=== PATIENT | female | born 1955 | race Caucasian/White ===

== ENCOUNTER 2023-01-31 13:07 | Outpatient (OUT) | payer MEDICARE, SELFPAY ==
--- NOTE | 2023-01-31 13:09 | VEIN_ITS ---
Patient: GERRY YOUNGBLOOD Exam Date: 01/31/2023 : 1955 Gender:F Ordering : DR SOLOMON JACKSON M.D. Admission #: [id number] Family : Order #: [id number] CLICK HERE TO VIEW EXAM RADIOLOGY REPORT PROCEDURE: [facility] - OFFICE VISIT INITIAL COMPARISON: None. PROGRESS NOTES: 67-year-old female who presents with a long history of lower extremity pain swelling and varicose veins. The patient has had a nonhealing ulcer in the distal left lower leg for approximately 5 months. The patient was treated for cellulitis and seen by the wound clinic for the past 4 months. The patient was seen previously by vascular surgery and underwent several procedures which she described as a glue procedure. The patient complains of pain and swelling. The patient rates the pain as a 4 on a scale of 1-10. The patient's symptoms are exacerbated by standing and are partially relieved by rest leg elevation and support stockings. The patient is not currently on antibiotics. The patient denies any signs and symptoms to suggest arterial ischemia. The patient describes a family history significant for varicose veins and congestive heart failure in her mother. Colon cancer in her father. . Past surgical history significant for cholecystectomy, hysterectomy and bilateral knee replacement. Past medical history significant for GERD, fibromyalgia, palpitations, hypertension, hypothyroidism and irritable bowel syndrome. No history of deep venous thrombus or pulmonary embolus. See separate history and physical for medication list. The patient has worn compression stockings for approximately 4 months. Patient has a 20 pack year history of smoking discontinuing 13 years ago. The patient smokes marijuana daily. Occasional social alcohol use. After history and physical exam I discussed at length the pathophysiology of venous hypertension and possible treatments, therapies and strategies available. We discussed at length the importance of elevating the lower extremities above the level of the heart, increased physical activity and compression stocking use. I discussed with the patient that her ulcerations or likely multifactorial related to tissue damage from hypertension possible lymphedema as well as venous disease being a contributory factor, in light of there being 3 incompetent perforating veins in the region of her wound. I informed the patient that treatment would likely improve wound healing but not necessarily resolve them completely. We discussed intravenous laser ablation, micro foam chemical ablation and injection sclerotherapy at length. Ultrasound venous reflux study performed the same day was discussed at length with the patient. The report demonstrates bilateral great saphenous, small saphenous and right anterior accessory saphenous vein disease. Bilateral incompetent varicose veins. Multiple bilateral incompetent perforating veins. PHYSICAL EXAM: The right leg demonstrates moderate diffuse varicose reticular and spider veins. No active ulceration. Mild hemosiderin staining. Mild subcutaneous edema below the knee. The left leg demonstrates to extensive varicose, reticular and spider veins. There is a large area of erythema on the distal lower leg and ankle measuring approximately 20 x 15 cm in size with 3 areas of active ulceration measuring up to 2 cm in size. Mild subcutaneous edema. Mild hemosiderin staining. Both thighs, legs and feet were symmetrically warm to the touch. Good posterior tibial and dorsalis pedis pulses were present bilaterally. VEIN/VC Facility EST Comprehensive IMPRESSION: 1. Moderate bilateral great saphenous vein, moderate bilateral small saphenous vein, severe anterior accessory saphenous vein venous insufficiency with dilatation 2. Incompetent perforating veins and incompetent lower extremity varicose veins 3. Extremity subcutaneous edema, mild. 4. Left leg active venous stasis ulcerations 5. CEAP: C6, Ep, Asp, Pr PLAN: 1. Endovenous laser ablation left great saphenous vein, right great saphenous vein, left small saphenous vein, right anterior accessory saphenous vein, left incompetent perforating veins, right small saphenous vein 2. Micro foam chemical ablation incompetent varicose veins 3. Injection sclerotherapy bilateral reticular and spider veins 4. Long-term use of bilateral thigh-high or knee high 20-30 mm compression stockings 5. Elevated legs and increased physical activity for symptomatic relief Nurse notes, history and physical were reviewed and confirmed, see attached forms. The nurse was present throughout the physical exam and consultation Dictated by: Solomon Jackson MD on 01/31/2023 at 15:25 Approved by: Solomon Jackson MD on 01/31/2023 at 15:34
--- NOTE | 2023-01-31 13:09 | VEIN_ITS ---
Patient: GERRY YOUNGBLOOD Exam Date: 01/31/2023 : 1955 Gender:F Ordering : DR SOLOMON JACKSON M.D. Admission #: [id number] Family : Order #: [id number] CLICK HERE TO VIEW EXAM RADIOLOGY REPORT PROCEDURE: VC EXT VENOUS REFLUX JHOANA LMTD COMPARISON: None. INDICATIONS: I83.813 Painful varicose veins of bilat lower extremities TECHNIQUE: Duplex imaging of the lower extremity to assess the deep and superficial venous system for the presence of deep or superficial venous incompetence and to document the location and severity of disease. The study includes evaluation of the great saphenous vein (GSV), anterior accessory saphenous vein (AASV) and small saphenous vein (SSV). Patient scanned in reverse Trendelenburg and standing. FINDINGS: RIGHT LOWER EXTREMITY: Saphenofemoral Junction Reflux: Yes 9.0mm 3.3 sec GSV: Diam (mm) Reflux/ Time (sec) Proximal Thigh 11.0 Yes 1.4 Mid Thigh 4.2 Yes 0.6 Distal Thigh N/A Prox Calf 2.4 No Mid Calf 2.7 No Saphenopopliteal Junction Reflux: 6.5mm Yes 3.5 SSV: Proximal Calf 6.3 Yes 2.8 Mid Calf 4.6 No AASV: Proximal Thigh 15.2 Yes 3.5 Mid Thigh 7.5 Yes 2.0 Distal Thigh Thrombi: Chronic thrombus visualized in GSV. The GSV has chronic occluding thrombus at mid and distal thigh. Compressibility: Normal Flow: Normal Preforator: Dist/med calf 4.8mm with 0.8s reflux. Tech Note: Incompetent GSV and SSV. Patent varicose vein 3.8 mm with 0.7s reflux. Patent varicose vein prox/med calf 4.6mm with 0.9s reflux. Patent varicose vein medial knee 11.8mm with 1.0s. Patent varicose vein dist/med thigh 7.0mm with 1.7s reflux. Patent varicose vein mid/ant thigh 10.2mm with 1.2s reflux. LEFT LOWER EXTREMITY: Saphenofemoral Junction Reflux: Yes 8.5 mm 3.3 sec GSV: Diam (mm) Reflux/Time (sec) Proximal Thigh 5.9 Yes 1.3 Mid Thigh N/A Distal Thigh N/A Prox Calf 4.5 Yes 2.3 Mid Calf 5.1 Yes 2.4 Saphenopopliteal Junction Relux: 5.7 mm Yes 2.4 SSV: Proximal Calf 5.5 Yes 1.5 Mid Calf 4.8 Yes 0.9 AASV: Proximal Thigh 4.6 No Mid Thigh 2.7 No Distal Thigh Thrombi: Chronic thrombus visualized in GSV. Occluding chronic thrombus visualized at mid and distal thigh GSV. Compressibility: Normal Flow: Normal Bead Stringer: Dist/med 4.0mm with 0.9s reflux. Mid/med calf 5.1mm with 1.8s reflux. Dist/lat calf (area of wound)4.9mm with 2.7s reflux. Tech Note: Incompetent GSV and SSV. Patent varicose vein mid/med calf 3.7mm with 2.1s reflux. Patent prox/med calf 5.3mm with 2.0s reflux. Patent varicose vein mid/med thigh 3.9mm with 0.8s reflux. CONCLUSION: 1. Moderate bilateral great saphenous vein venous insufficiency with dilatation and saphenofemoral junction reflux 2. Moderate bilateral small saphenous vein venous insufficiency with dilation and saphenous popliteal junction reflux 3. Severe venous insufficiency with dilatation of the right anterior accessory saphenous vein 4. Bilateral incompetent perforating veins, most severe in corresponding to a left leg ulceration 5. Bilateral incompetent varicose veins Dictated by: Solomon Jackson MD on 01/31/2023 at 14:18 Approved by: Solomon Jackson MD on 01/31/2023 at 14:21
== END 2023-01-31 13:08 | disposition home or self-care (01) ==
PROVIDERS: PCP Nurse Practitioner Adult Health; Visit Provider Radiology Diagnostic Radiology
DX: I83.813 Varicose veins of bilateral lower extremities with pain (principal); R60.0 Localized edema; Z86.79 Personal history of other diseases of the circulatory system
CPT/HCPCS: 93970; G0463

== ENCOUNTER 2023-02-28 10:57 | Outpatient (OUT) | payer MEDICARE, SELFPAY ==
--- NOTE | 2023-02-28 11:21 | VEIN_ITS ---
[address] [address] Patient Name: GERRY YOUNGBLOOD MRN: [id number] date: 1955 Sex: F Assigned Patient Location: Current Patient Location: Accession/Order Number: [id number] Exam Date: 02/28/2023 11:22 Report Date: 02/28/2023 12:14 At the request of: VICKIE CORDON Procedure: VC Endovenous Ablation 1VeinRT EXAMINATION: VC Endovenous Ablation 1VeinRT HISTORY: Pain due to varicose veins of bilateral legs I83.813 The risks and benefits of the procedure had been previously discussed, and were rediscussed at length. Informed written consent was obtained. Jess Da Silva RN and Camilla Romero RDMS, RVT assisted. Time out procedure was performed. The right lower extremity was prepared and draped in the usual sterile fashion to allow knee flexion in the sterile field. Duplex ultrasound probe was draped in a sterile cover, sterile transmission gel was used. Venous mapping was performed with the areas of dilation and large tributaries marked. The total length was 7 cm from the entry upper thigh to 3 cm below the Saphenofemoral junction. The diameter of the right anterior accessory saphenous vein ranged from 5.9 mm. A 30 gauge needle and 1% buffered lidocaine was used to anesthetize the entry site. A 4 mm incision was made with a scalpel and the saphenous vein was entered percutaneously under direct ultrasound guidance with a micropuncture set, a single stick was successful in gaining access. A micro-guide wire was inserted and the needle removed. A micro-set including a dilator was inserted over the microwire and the needle and dilator were removed. A guide wire was inserted through the micro-set and guided through the saphenous vein to the saphenofemoral junction. The dilator was removed and an introducer sheath was inserted over the wire until the end of the sheath entered the saphenofemoral junction. The dilator and wire were removed and the 600 micron fiber was introduced and placed and positioned so that it extended beyond the sheath and was 3 cm distal to the saphenofemoral or saphenopopliteal junction. Final position of the fiber was determined by ultrasound guidance and duplex imaging. Tumescent anesthetic was delivered by ultrasound guidance. 50 cc of fluid was delivered along the entire course of the saphenous vein. The solution consisted of 1000 cc of normal saline with 40 mL of 1% lidocaine and 20 mL of sodium bicarbonate. A final positioning check was made. The energy source was turned on by means of the foot pedal and the fiber and sheath were withdrawn. The total number of Joules delivered was 465. The laser was active for 58 seconds under continuous pulse, average laser use of 8 J. Laser start time 11:51 AM, 02/28/2023. Laser stop time 11:52 AM, 02/28/2023. A duplex ultrasound revealed compressibility and flow at the saphenofemoral junction immediately after the procedure. Hemostasis at the access site was achieved. The skin incision of the saphenous vein was closed with a 4 x 4. A compression stocking was applied. Postop instructions were given. A follow up appointment was recommended and scheduled. The patient tolerated the procedure well. Electronically authenticated by: FARNAZ SERVIN Date: 02/28/2023 12:14
[2023-02-28] MEDS: LIDOCAINE HCL 1% 100 MG/10 ML MDV INJ (11:45)
[2023-02-28] MEDS: 0.9 % SODIUM CHLORIDE 500 ML, LIDOCAINE HCL 20 ML, SODIUM BICARBONATE 10 MEQ INJ (11:45)
== END 2023-02-28 10:58 | disposition home or self-care (01) ==
LOC: VC 10:57
PROVIDERS: PCP Nurse Practitioner Adult Health; Visit Provider Radiology Diagnostic Radiology
DX: I83.813 Varicose veins of bilateral lower extremities with pain (principal)
CPT/HCPCS: 36478

== ENCOUNTER 2023-03-06 10:30 | Outpatient (OUT) | payer MEDICARE, SELFPAY ==
--- NOTE | 2023-03-06 | VEIN_ITS ---
Patient Name: GERRY YOUNGBLOOD MR#: [id number] : 1955 Exam Date: 03/06/2023 Ordering Doctor: DR SOLOMON JACKSON M.D. RADIOLOGY REPORT PROCEDURE: VC EXT VENOUS RT LMTD COMPARISON: None. INDICATIONS: Phlebitis of superficial veins of rt lower extremity I80.01 TECHNIQUE: Lower extremity may scale and Duplex Doppler evaluation of the deep venous system from the inguinal ligament through the calf veins. FINDINGS: REGION: Right lower extremity. THROMBI: Negative for DVT. Heat induced thrombus visualized 1.4cm from the SFJ. The heat induced thrombus extends from groin to mid thigh. COMPRESSIBILITY: Non-compressible segments corresponding to thrombus FLOW: Areas of absent flow corresponding to thrombus CONCLUSION: Post ablation occlusion of the right anterior accessory saphenous vein with heat induced thrombus 1.4 cm from the saphenofemoral junction Dictated by: Solomon Jackson MD on 03/06/2023 at 10:45 Approved by: Solomon Jackson MD on 03/06/2023 at 10:46
--- NOTE | 2023-03-06 10:33 | VEIN_ITS ---
Patient Name: GERRY YOUNGBLOOD MR#: [id number] : 1955 Exam Date: 03/06/2023 Ordering Doctor: DR SOLOMON JACKSON M.D. RADIOLOGY REPORT PROCEDURE: [facility] EST LMTD VEIN CENTER - OFFICE VISIT FOLLOW UP COMPARISON: None. PROGRESS NOTES: The patient reports no significant problems following intravenous laser ablation of the right anterior accessory saphenous vein. The patient did not require oral analgesics. The patient has worn her compression stocking. The patient has followed our recommendations to walk 20-30 minutes once or twice per day since the procedure. Physical exam demonstrates minimal bruising in the anterior right thigh likely related to tumescence injection the largest area measuring 5 cm in diameter. The right anterior accessory saphenous vein cannot definitively be palpated. No erythema or warmth to suggest cellulitis or thrombophlebitis. No active ulceration Review of the ultrasound performed the same day demonstrates occlusive thrombus extending throughout the treated right anterior accessory saphenous vein with heat induced thrombus 1.4 cm from the saphenofemoral junction. No deep vein thrombus. The patient expressed a desire to proceed with treatment of incompetent left leg perforating veins with related ulcerations. VEIN/VC Facility EST LMTD IMPRESSION: 1. Successful ablation of the right anterior accessory saphenous vein 2. Persistent incompetent left leg perforating veins with associated ulceration. PLAN: Intravenous laser ablation left leg incompetent perforating veins Nurse notes, history and physical were reviewed and confirmed, see attached forms. The nurse was present throughout the physical exam and consultation Dictated by: Solomon Jackson MD on 03/06/2023 at 10:58 Approved by: Solomon Jackson MD on 03/06/2023 at 10:59
== END 2023-03-06 10:31 | disposition home or self-care (01) ==
LOC: VC 10:30
PROVIDERS: PCP Nurse Practitioner Adult Health; Visit Provider Radiology Diagnostic Radiology
DX: I80.01 Phlebitis and thrombophlebitis of superficial vessels of right lower extremity (principal)
CPT/HCPCS: 93971; G0463

== ENCOUNTER 2023-03-15 09:57 | Outpatient (OUT) | payer MEDICARE, SELFPAY ==
--- OUTSIDE RECORDS SUMMARY | 2023-03-15 10:06 | XMS_ITS | CCD ---
Author Name Unknown Address [address] [place] [address] Organization [facility] Care Team Providers Care Face Painter Name Role Phone Ward Zuniga Primary Care Provider Pardeep Barroso Attending Provider Jai Tomas Attending Provider [phone] Ward Zuniga Primary Care Provider [phone] Jai Tomas Attending Provider [phone] Ward Mtz Attending Provider [phone] Ward Zuniga Primary Care Provider [phone] Jai Tomas Attending Provider [phone] Ward Mtz Attending Provider [phone] WARD ZUNIGA Primary Care Physician Unavail able Latonya Frost Unavailable Unavailable Michael Colunga Unavailable Ward Mtz Unavailable Balwinder Parker Unavailable DO Ward Zuniga Primary Care Provider [phone] MD Molina Villanueva Attending Provider [phone] DO Ward Zuniga Attending Provider DO Ward Zuniga Primary Care Provider CUBA Casanova Attending Provider ISI Griffith Emergency Provider Unavailable Primary Care Provider Unavailabl e DO Ward Zuniga Primary Care Provider CUBA Casanova Attending Provider ISI Griffith Emergency Provider [phone] Ward Zuniga Unavailable Unavailable Unavailable CONNIE COTE Referring Unavailable CONLEY, NIMITT Admitting Unavailable PROVIDER, UNKNOWN Attending Unavailable CONNIE COTE Referring Unavailable CONLEY, NIMITT Admitting Unavailable PROVIDER, UNKNOWN Attending Unavailable RITTER, NIKITA Referring Unavailable PROVIDER, UNKNOWN Admitting Unavailable PROVIDER, UNKNOWN Attending Unavailable CONLEY, NIMITT Admitting Unavailable [facility] Referring Unavailable PROVIDER, UNKNOWN Attending Unavailable CONNIE COTE Referring Unavailable PROVIDER, UNKNOWN Attending Unavailable PROVIDER, UNKNOWN Admitting Unavailable PROVIDER, UNKNOWN Admitting Unavailable PROVIDER, UNKNOWN Attending Unavailable RITKYA, NIKITA Referring Unavailable PROVIDER, UNKNOWN Attending Unavailable PROVIDER, UNKNOWN Admitting Unavailable PROVIDER, UNKNOWN Admitting Unavailable PROVIDER, UNKNOWN Attending Unavailable WARD GRAVES Attending Unavailable CONNIE COTE Referring Unavailable CONLEY, NIMITT Admitting Unavailable CONSULT, IP CARDIOLOGY Consulting Unavailab le REQUEST, IP PHYSICAL THERAPY SERVICE Consulting Unavailable REQUEST, IP OCCUPATIONAL THERAPY SERVICE Consult ing Unavailable PROVIDER, UNKNOWN Attending Unavailable PROVIDER, UNKNOWN Admitting Unavailable PROVIDER, UNKNOWN Attending Unavailable PROVIDER, UNKNOWN Admitting Unavailable PROVIDER, UNKNOWN Attending Unavailable PROVIDER, UNKNOWN Admitting Unavailable CONNIE COTE Referring Unavailable CONNIE COTE Referring Unavailable CONLEY, NIMITT Admitting Unavailable PROVIDER, UNKNOWN Attending Unavailable Dr. Ward Zuniga Primary Care Dr. Natan Biggs Referring Unavaila terrence Marinelli, Dr. Gama Attending Unavaila Dr. Ward Robin Primary [facility] DO Ward Samuel Primary Care Provider [phone] DO Ward Zuniga Attending Provider [phone] CUBA Saldana Attending Provider DO Maico Perla Emergency Provider [phone] MD Ward Mtz Attending Provider DO Ward Zuniga Primary Care Provider MD Ward Mtz Attending Provider [phone] CUBA Saldana Attending Provider [phone] MD Pravin Granado Emergency Provider [phone] MARYCARMEN NAVA Attending Unavailable Ketty Alicia Attending Unavailable Talon Mcbride Referring Unavailabl e Zulay Junior Attending Unavailab le Talon Mcbride Admitting Unavailabl e Reed, Talon Pastrana Attending Unavailabl e Talon Mcbride Referring Unavailabl e RANDY, Ronobir R Admitting Unavailable RANDY, Ronobir R Attending Unavailable Talon Mcbride Admitting Unavailabl e Reed, Talon Pastrana Attending Unavailabl e Talon Mcbride Referring Unavailabl e WARD ZUNIGA Attending Unavailable WARD ZUNIGA Referring Unavailable CONNIE LEARY Attending Unavailable CONNIE LEARY Referring Unavailable CONNIE LEARY Attending Unavailable CONNIE LEARY Referring Unavailable DO Ward Zuniga Primary Care Provider MD Pravin Granado Emergency Provider CUBA Saldana Attending Provider Ward Zuniga Primary Care Unavailable Maico Perla Admitting Unavailable Maico Perla Attending Unavailable Keith Griffith Admitting Unavailable Keith Griffith Attending Unavailable Zach, Ward Primary Care Unavailable Pravin Granado Admitting Unavailable Pravin Granado Attending Unavailable Zach, Ward Primary Care Unavailable Ward Zuniga Admitting Unavailable Zach, Wrad Primary Care Unavailable Ward Zuniga Attending Unavailable Zach, Ward Primary Care Unavailable Adelia Saldana Admitting Unavailable Adelia Saldana Attending Unavailable Zach, Ward Primary Care Unavailable Ward Mtz Admitting Unavailable Ward Mtz Attending Unavailable Adelia Saldana Admitting Unavailable Adelia Saldana Attending Unavailable Zach, Ward Primary Care Unavailable Zach, Ward Primary Care Unavailable Ephraim Casanova Admitting Unavailable Ephraim Casanova Attending Unavailable Keith Griffith Admitting Unavailable Keith Griffith Attending Unavailable Zach Ward Primary Care Unavailable Unavailable Unavailable Unavailable Allergies Allergy Classification Reported Allergen(s) Allergy Type Date of Onset Reaction(s) Facility (17 sources) contact metal agent; Translations: [contact metal agent] Propensity to adverse reactions 09-13-201 9 Hives [facility] (8 sources) Adhesive bandage; Translations: [Adhesive Bandage] Drug allergy rash [facility] (20 sources) DULoxetine; Translations: [duloxetine] Drug Allergy unable to function properly d/t drowsiness, swollen feet, Unknown [facility] [place] Other (13 sources) meloxicam; Translations: [meloxicam] Drug Allergy ., Unknown [facility] [place] Other (20 sources) pregabalin; Translations: [pregabalin] Drug Allergy 3 Swelling [facility] [place] Other (19 sources) Adhesive agent; Translations: [adhesive] Propensity to adverse reactions 2 [facility] (10 sources) oxaprozin; Translations: [oxaprozin] Drug Allergy Unknown [facility] (10 sources) rOPINIRole; Translations: [Requip] Drug Allergy dizziness [facility] (10 sources) tiZANidine; Translations: [tiZANidine] Drug Allergy Unknown [facility] (20 sources) DULoxetine; Translations: [DULOXETINE HCL] Drug Allergy 3 Agitation [facility] (20 sources) Pregabalin Propensity to adverse reactions to drug 3 [facility] Bandage Tape; Translations: [BANDAGE TAPE] Propensity to adverse reactions 3 Itching, Redness [facility] ([facility]) Adhesive Bandages; Translations: [Adhesive Bandages] Allergy to drug (finding) [facility] DO Work Phone: (1 source) Adhesive Paper TAPE; Translations: [Adhesive Paper TAPE] [facility]: (1 source) meloxicam; Translations: [Mobic] Drug Allergy [facility] (1 source) oxaprozin; Translations: [Daypro] Drug Allergy [facility] (1 source) tiZANidine; Translations: [Zanaflex] Drug Allergy [facility] (1 source) pregabalin Drug Allergy [facility] Repository Medications Current Medications Medication Drug Class(es) Dates Sig (Normalized) Sig (Original) acetaminophen 325 mg oral tablet (6 sources) Start: 07-26-2022 take 2 tablets by mouth every six hours acetaminophen 325 mg Tab 650 mg = 2 tab(s), Oral, q6hr, Refills(s) 0 Start Date: 07/26/22 Status: Ordered Start: 05-24-2022 End: 05-31-2022 take 2 tablets by mouth every six hours as needed acetaminophen (TYLENOL) 325 mg tablet Take 2 Tablets by mouth every 6 hours as needed for up to 7 days. 56 Tablet 0 05/24/2022 05/31/2022 Active take 1-2 tablets by mouth every four hours as needed Acetaminophen 325 MG Oral Tablet TAKE 1 TO 2 TABLETS EVERY 4 HOURS NEEDED Quantity: 0 Refills: 0 Ordered: 30-Jun-2022 DO Active Acidophilus Probiotic Blend (4 sources) Start: 07-26-2022 take 1 capsule by mouth once daily Acidophilus Probiotic Blend 1 cap(s), Oral, Daily, Prophylaxis Start Date: 07/26/22 Status: Ordered acyclovir 400 mg oral tablet (20 sources) Herpesvirus Nucleoside Analog DNA Polymerase Inhibitor, Herpes Simplex Virus Nucleoside Analog DNA Polymerase Inhibitor, Herpes Zoster Virus Nucleoside Analog DNA Polymerase Inhibitor Start: 05-25-2016 take 400 mg by mouth once daily Acyclovir Active 400 MG PO Daily May 15, 2022 12:00am amitriptyline hydrochloride 50 mg oral tablet (20 sources) Tricyclic Antidepressant Start: 03-29-2017 take 50 mg by mouth once daily Amitriptyline Active 50 MG PO Daily March 29, 2017 12:00am aspirin 81 mg delayed release oral tablet (20 sources) Platelet Aggregation Inhibitor, Nonsteroidal Anti-inflammatory Drug Start: 07-18-2022 take 1 tablet by mouth once daily aspirin 81 mg Oral EC Tab 81 mg = 1 tab(s), Oral, Daily, afib, Refills(s) 0, Other (see comment) Start Date: 07/18/22 Status: Ordered Start: 05-25-2022 End: 06-24-2022 take 1 tablet by mouth once daily aspirin 81 MG chewable tablet Take 1 Tablet by mouth daily. 30 Tablet 0 05/25/2022 Active Start: 01-13-2021 aspirin 325 mg Tab Refills(s) 0 Start Date: 01/13/21 Status: Ordered take 1 tablet by pablo th once daily Aspirin EC 81 MG Oral Tablet Delayed Release TAKE 1 TABLET DAILY. Quantity: 90 Refills: 3 Ordered: 30-Jun-2022 Yves JOY, Natan Active atenolol 50 mg oral tablet (20 sources) beta-Adrenergic Kyler Start: 11-22-2012 take 50 mg by mouth once daily Atenolol Active 50 MG PO Daily March 29, 2017 12:00am atorvastatin 40 mg oral tablet (20 sources) HMG-CoA Reductase Inhibitor Start: 05-25-2022 End: 06-24-2022 take 1 tablet by mouth once daily atorvastatin (LIPITOR) 40 mg tablet Take 1 Tablet by mouth daily. 30 Tablet 0 05/25/2022 Active Benadryl Allergy 25 MG (4 sources) take 1 tablet by mouth once daily at bedtime as needed Benadryl Allergy 25 MG 1 tablet at bedtime as needed Orally Once a day Active calcium carbonate 1500 mg oral tablet (6 sources) Start: 07-26-2022 calcium (as carbonate) 600 mg oral tablet 1,200 mg = 2 tab(s), Oral, Daily, Prophylaxis Start Date: 07/26/22 Status: Ordered Start: 01-13-2021 take 1 tablet by pablo th twice daily calcium (as carbonate) 600 mg oral tablet 600 mg = 1 tab(s), Oral, BID, Refills(s) 0 Start Date: 01/13/21 Status: Ordered Celebrate Multivitamin (7 sources) Start: 01-13-2021 Celebrate Mult ivitamin 1 tab(s), Chewed, Daily, Refill(s) 0, Prophylaxis Start Date: 01/13/21 Status: Ordered Start: 01-13-2021 Celebrate Mult ivitamin Refill(s) 0 Start Date: 01/13/21 Status: Ordered cephalexin 500 mg oral capsule (20 sources) Cephalosporin Antibacterial Start: 09-27-2022 End: 10-04-2022 take 1 capsule by mouth four times daily Keflex 500 mg Cap 500 mg = 1 cap(s), Oral, QID, X 7 day(s), # 28 cap(s), Refills(s) 0, Pharmacy: [facility] [id number], 154, cm, 09/26/22 23:21:00 EDT, Height/Length Dosing, 75.9, kg, 09/26/22 23:21:00 EDT, Weight Dosing Start Date: 09/27/22 Stop Date: 10/04/22 Status: Ordered Start: 05-30-2017 End: 06-06-2017 take 1 capsule by mouth twice daily Cephalexin (Keflex) 500 mg capsule Discontinued 500 MG PO Twice daily 14 May 30, 2017 12:00am June 05, 2017 11:05pm Start: 04-24-2017 End: 05-08-2017 take 1 capsule by mouth twice daily Cephalexin (Keflex) 500 mg capsule Discontinued 500 MG PO Twice daily 28 April 24, 2017 12:00am May 08, 2017 12:03am Start: 03-29-2017 End: 04-05-2017 take 2 capsules by mouth twice daily Cephalexin (Keflex) 250 mg capsule Discontinued 500 MG PO .twice daily 14 March 29, 2017 12:00am April 05, 2017 12:03am cetirizine hydrochloride 10 mg disintegrating oral tablet (12 sources) Histamine-1 Receptor Antagonist Start: 01-13-2021 Zyrtec Dissolve 10 mg oral tablet, dispersible 10 mg = 1 tab(s), Oral, Daily, PRN for allergy symptoms, # 24 tab(s), Refills(s) 0 Start Date: 01/13/21 Status: Ordered take 1 tablet by mouth once apryl y ZyrTEC Allergy 10 MG 1 tablet Orally Once a day Active cholecalciferol 0.05 mg oral capsule (1 source) Vitamin D Start: 01-13-2021 take 1 tablet by mouth once daily Vitamin D3 2000 intl units oral Tab 50 mcg, Oral, Daily, tab(s), Refills(s) 0 Start Date: 01/13/21 Status: Ordered clindamycin 0.01 mg/mg topical gel (4 sources) Lincosamide Antibacterial Start: 10-18-2022 Clindamycin Phosphate Active 1 APPLIC TOPICAL .3 times weekly 60 October 17, 2022 11:00pm thin layer to lle ulcer per wound orders diphenhydrAMINE (12 sources) Histamine-1 Receptor Antagonist Start: 01-13-2021 Benadryl 25 mg Tab Daily, PRN as needed for allergy symptoms, Refills(s) 0 Start Date: 01/13/21 Status: Ordered take 1 tablet by pablo th every twenty-four hours Benadryl Allergy 25 MG 1 tablet at bedtime as needed Orally Once a day Active docusate sodium 100 mg oral capsule (13 sources) Start: 11-22-2012 take 2 capsules by mouth once daily in the evening docusate sodium 100 mg Cap 200 mg = 2 cap(s), Oral, qPM, Refills(s) 0, Constipation Start Date: 11/22/12 Status: Ordered doxycycline hyclate 100 mg oral capsule (18 sources) Tetracycline -class Drug Start: 02-02-2023 take 100 mg by mouth twice daily Doxycycline Hyclate Active 100 MG PO Twice daily February 02, 2023 12:00am Start: 09-27-2022 End: 10-04-2022 take 1 tablet by mouth every twelve hours doxycycline hyclate 100 mg Tab 100 mg = 1 tab(s), Oral, q12hr, X 7 day(s), # 14 tab(s), Refills(s) 0, Pharmacy: [facility] [id number], 154, cm, 09/26/22 23:21:00 EDT, Height/Length Dosing, 75.9, kg, 09/26/22 23:21:00 EDT, Weight Dosing Start Date: 09/27/22 Stop Date: 10/04/22 Status: Ordered Start: 11-08-2018 End: 11-23-2018 take 100 mg by mouth twice daily Doxycycline Hyclate Discontinued 100 MG PO Twice daily November 07, 2018 11:00pm November 23, 2018 12:42pm escitalopram 10 mg oral tablet (20 sources) Serotonin Reuptake Inhibitor Start: 01-13-2021 take 10 mg by mouth once daily Escitalopram Oxalate Active 10 MG PO Daily May 15, 2022 12:00am estradiol 0.1 mg/g vaginal cream (1 source) Start: 07-29-2021 estradiol 0.1 mg/g vaginal cream See Instructions, 1 g vaginally daily x 2 weeks, then 3x per week thereafter. apply a pea-sized amount with your finger around the urethra., # 42.5 gm, Refills(s) 5, Pharmacy: [facility] [id number], 154, cm, 07/29/21 11:09:00 EDT, Height/Length Dos... Start Date: 07/29/21 Status: Ordered Fiber (3 sources) Fiber Active gabapentin 100 mg oral capsule (20 sources) Anti-epileptic Agent Start: 03-29-2017 take 100 mg by mouth three times daily Gabapentin Active 100 MG PO Three times daily March 29, 2017 12:00am Start: 05-25-2016 take 2 capsules by m outh twice daily gabapentin 100 mg Cap 200 mg = 2 cap(s), Oral, BID, Refills(s) 0, Pain Start Date: 05/25/16 Status: Ordered Gabapentin 100 M G TABS TAKE 1 TABLET 3 TIMES DAILY. Quantity: 0 Refills: 0 Ordered: 30-Jun-2022 DO Active Handicap Placard 5 year 5 year (9 sources) Start: 06-26-[address] 5 year 5 year 1 misc daily for 5 year *please review for potential _update for e-prescription and drug interaction check* Jun, Active levothyroxine sodium 0.05 mg oral tablet (20 sources) l-Thyroxi ne Start: 10-23-2018 take 100 ug by mouth once daily Levothyroxine Active 100 MCG PO Daily October 22, 2018 11:00pm Start: 10-23-2018 take 50 ug by mouth once daily Levothyroxine Active 50 MCG PO Daily October 23, 2018 12:00am Start: 05-31-2016 take 1 tablet by pablo once daily levothyroxine 150 mcg (0.15 mg) Tab 150 microgram = 1 tab(s), Oral, Daily, Refills(s) 0, Thyroid Start Date: 05/31/16 Status: Ordered losartan potassium 25 mg oral tablet (20 sources) Angiotensin 2 Receptor Kyler Start: 05-24-2022 End: 06-23-2022 take 1 tablet by mouth once daily losartan (COZAAR) 25 MG tablet Take 1 Tablet by mouth daily. 30 Tablet 0 05/24/2022 Active 24 hr metoprolol succinate 25 mg extended release oral tablet (20 sources) beta-Adrenergic Kyler Start: 05-24-2022 End: 06-23-2022 take 0.5 tablet by mouth once daily metoprolol (TOPROL-XL) 25 mg XL tablet Take 0.5 Tablets by mouth daily. 15 Tablet 0 05/24/2022 Active Multivitamin preparation (4 sources) Start: 10-05-2022 take 1 tablet by mouth once daily Multivitamin Active 1 TAB PO Daily October 04, 2022 11:00pm Start: 10-05-2022 take 1 tablet by pablo once daily Multivitamin Active 1 TAB PO Daily October 05, 2022 12:00am nystatin 100 unt/mg topical powder (2 sources) Polyene Antifungal Start: 02-14-2023 Nystatin Ac tive 1 APPLIC TOPICAL .3 times/week February 14, 2023 12:00am apply to left leg as per wound care orders Start: 02-13-2023 Nystatin Activ e 1 APPLIC TOPICAL .3 times weekly February 13, 2023 12:00am apply to left leg rash with each dressing omeprazole 40 mg delayed release oral capsule (20 sources) Proton Pump Inhibitor Start: 05-13-2021 take 40 mg by mouth twice daily Omeprazole Active 40 MG PO Twice daily 60 May 13, 2021 12:00am Start: 03-29-2017 End: 05-13-2021 take 20 mg by mouth twice daily Omeprazole Discontinue d 20 MG PO Twice daily March 29, 2017 12:00am May 13, 2021 10:00am Start: 11-29-2012 take 1 capsule by mo [facility] once daily omeprazole 20 mg Cap-DR 20 mg = 1 cap(s), Oral, Daily, # 30 cap(s), Refills(s) 0, Gas Start Date: 01/13/21 Status: Ordered omeprazole 20 mg Cap-DR (1 source) Start: 01-13-2021 take 1 capsule by mouth once daily omeprazole 20 mg Cap-DR 20 mg = 1 cap(s), Oral, Daily, # 30 cap(s), Refills(s) 0 Start Date: 01/13/21 Status: Ordered ondansetron 4 mg disintegrating oral tablet (2 sources) Serotonin-3 Receptor Antagonist Start: 12-17-2022 Ondansetron Active 4 MG PO every 6 to 8 hours December 16, 2022 11:00pm 24 hr oxybutynin chloride 10 mg extended release oral tablet (20 sources) Cholinergic Muscarinic Antagonist Start: 02-20-2023 take 1 tablet by mouth once daily oxybutynin 10 mg ER Tab 10 mg = 1 tab(s), Oral, Daily, # 90 tab(s), Refills(s) 3, Pharmacy: [facility] [id number], 154, cm, 09/26/22 23:21:00 EDT, Height/Length Dosing, 75.9, kg, 09/26/22 23:21:00 EDT, Weight Dosing Start Date: 02/20/23 Status: Ordered Start: 11-30-2021 oxybutynin (DI TROPAN-XL) 10 MG XL tablet Take 10 mg by mouth. 0 11/30/2021 Active Start: 07-29-2021 End: 09-27-2021 take 1 tablet by mouth once daily oxybutynin 10 mg ER Tab 10 mg = 1 tab(s), Oral, Daily, X 30 day(s), # 30 tab(s), Refills(s) 1, Pharmacy: [facility] [id number], 154, cm, 07/29/21 11:09:00 EDT, Height/Length Dosing, 88, kg, 07/29/21 11:09:00 EDT, Weight Dosing Start Date: 07/29/21 Stop Date: 09/27/21 Status: Ordered Start: 07-29-2021 End: 08-28-2021 take 1 tablet by mouth once daily oxybutynin 5 mg ER Tab 5 mg = 1 tab(s), Oral, Daily, X 30 day(s), # 30 tab(s), Refills(s) 0, Pharmacy: [facility] [id number], 154, cm, 07/29/21 11:09:00 EDT, Height/Length Dosing, 88, kg, 07/29/21 11:09:00 EDT, Weight Dosing Start Date: 07/29/21 Stop Date: 08/28/21 Status: Ordered oxyCODONE hydrochloride 5 mg oral tablet (1 source) Opioid Agonist Start: 07-26-2022 End: 07-29-2022 oxyCODONE 5 mg Tab 5 mg = 1 tab(s), Oral, q6hr, PRN Pain 8-10, X 3 day(s), # 12 tab(s), Refills(s) 0, Pharmacy: [facility] [id number], 154, cm, 07/18/22 14:13:00 EDT, Height/Length Dosing, 74.6, kg, 07/18/22 14:13:00 EDT, Weight Dosing Start Date: 07/26/22 Stop Date: 07/29/22 Status: Ordered Probiotic (3 sources) Probiotic Active psyllium 525 mg oral capsule (16 sources) Start: 01-13-2021 take 5 capsules by mouth once daily as needed for constipation Metamucil 525 mg oral capsule 2,625 mg = 5 cap(s), Oral, Daily, PRN for constipation, # 100 cap(s), Refills(s) 0 Start Date: 01/13/21 Status: Ordered take 1 capsule by mouth in the m orning Metamucil 0.52 GM 1 capsule Orally in am Active take 1 capsule by mouth in the m orning Metamucil 0.52 GM 1 capsule Orally in am Active rOPINIRole 2 mg oral tablet (20 sources) Nonergot Dopamine Agonist Start: 05-08-2022 End: 07-18-2022 rOPINIRole (REQUIP) 2 MG tablet Start: 01-13-2021 take 1 tablet by pablo twice daily Requip 2 mg Tab 2 mg = 1 tab(s), Oral, BID, restless legs, Refills(s) 0, Other (see comment) Start Date: 01/13/21 Status: Ordered Start: 03-29-2017 take 0.25 mg by mout h four times daily Ropinirole Active 0.25 MG PO Four times daily March 29, 2017 12:00am Start: 03-29-2017 take 0.25 mg by mout h three times daily Ropinirole Active 0.25 MG PO Three times daily March 29, 2017 12:00am 5 ml sodium chloride 9 mg/ml injection (1 source) Start: 07-13-2022 End: 08-12-2022 Sodium Chloride Flush (Saline Flush) 0.9 % SOLN 10 mL by Gastric Tube route 2 times daily. 10 mL 5 07/13/2022 08/12/2022 Active traMADol hydrochloride 50 mg oral tablet (20 sources) Opioid Agonist Start: 08-20-2015 take 50 mg by mouth once daily Tramadol Active 50 MG PO Daily March 29, 2017 12:00am Start: 08-20-2015 take 50 mg by mouth every eight hours as needed for pain tramadol 50 mg, Oral, q8hr, PRN as needed for pain, Pain Start Date: 06/29/17 Status: Ordered Vashe Cleansing - (9 sources) Start: 04-17-2019 Vashe Cleansin g - 5-10 ml to leg wound Externally daily Mar, Active Vitamin D3 2000 intl units oral Tab (6 sources) Start: 01-13-2021 take 1 tablet by mouth once daily Vitamin D3 2000 intl units oral Tab 50 mcg, Oral, Daily, tab(s), Refills(s) 0, Prophylaxis Start Date: 01/13/21 Status: Ordered Start: 01-13-2021 take 1 tablet by pablo once daily Vitamin D3 2000 intl units oral Tab 50 mcg, Oral, Daily, tab(s), Refills(s) 0 Start Date: 01/13/21 Status: Ordered Vitamin D3 2000 UNIT (9 sources) take 1 capsule by mo [facility] once daily Vitamin D3 2000 UNIT 1 capsule Orally Once a day *please review for potential _update for e-prescription and drug interaction check* Active Completed/Discontinued Medications Medication Drug Class(es) Dates Sig (Normalized) Sig (Original) clobetasol propionate 0.0005 mg/mg topical ointment (16 sources) Corticosteroid Start: 11-23-2018 End: 03-30-2020 apply 1 g topically twice daily Clobetasol Discontinued 1 GM TOPICAL Twice daily 15 November 22, 2018 11:00pm March 30, 2020 4:18pm apply thin layer to red area left leg gentamicin 0.001 mg/mg topical ointment (4 sources) Start: 10-05-2022 End: 11-16-2022 Gentamicin Discontinued 1 APPLIC TOPICAL .3 times/week October 04, 2022 11:00pm November 16, 2022 9:50am thin layer to left leg wound as per wound care orders iohexol (OMNIPAQUE) 350 MG/ML injection (1 source) Start: 07-05-2022 End: 07-05-2022 iohexol (OMNIPAQUE) 350 MG/ML injection mupirocin 0.02 mg/mg topical ointment (16 sources) RNA Synthetase Inhibitor Antibacterial Start: 11-23-2018 End: 03-30-2020 Mupirocin Discontinued 1 APPLIC TOPICAL Twice daily November 22, 2018 11:00pm March 30, 2020 4:18pm apply to wound on left leg simethicone 80 mg chewable tablet (4 sources) Start: 09-10-2021 take 1 tablet by mouth three times daily as needed Simethicone 80 MG 1 tablet Orally three times a day prn for 30 day(s) Aug, Not-Taking Triamcinolone (20 sources) Corticosteroid Start: 01-30-2019 KENALOG - 10 mg Jan, 40 mg Start: 07-07-2016 Kenalog -40 mg Jun, 40 mg Start: 01-25-2016 Kenalog -40 mg Dec, 40 mg Start: 10-19-2015 Kenalog -40 mg Sep, 40 mg Problems Active Problems Problem Classification Problem Date Documented Da te Episodic/Chronic Acute myocardial infarction (7 sources) Acute non-ST segment elevation myocardial infarction; Translations: [Non-ST elevation (NSTEMI) myocardial infarction] 05-15-2022 Chronic Allergic reactions (1 source) Eruption due to drug; Translations: [Dermatitis due to drugs and medicines taken internally] Episodic Anxiety disorders (20 sources) Anxiety; Translations: [Generalized anxiety disorder] Onset: 6 05-25-2016 Chronic Biliary tract disease (20 sources) Acute cholecystitis; Translations: [Acute cholecystitis] Onset: 3 05-15-2022 Episodic Cancer; other and unspecified primary (9 sources) Malignant tumor of lower limb; 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 Cardiac dysrhythmias (20 sources) Atrial fibrillation; Translations: [Paroxysmal supraventricular tachycardia] Onset: 3 07-29-2021 Chronic Cardiac dysrhythmias (1 source) Palpitations; Translations: [Palpitations] Episodic Chronic ulcer of skin (20 sources) Ulcer of limb due to chronic venous insufficiency; Translations: [Non-pressure chronic ulcer of skin of other sites with unspecified severity] Onset: 1 Resolved: 1 Chronic Coronary atherosclerosis and other heart disease (3 sources) Coronary atherosclerosis; Translations: [Atherosclerotic heart disease of [place] coronary artery without angina pectoris] Onset: 3 Chronic Disorders of lipid metabolism (20 sources) Mixed hyperlipidemia; Translations: [Mixed hyperlipidemia] Onset: 8 05-16-2022 Chronic E Codes: Fall (4 sources) Fall; Translations: [Unspecified fall, initial encounter] 11-04-2022 Episodic Esophageal disorders (20 sources) Gastroesophageal reflux disease; Translations: [Chalasia of lower esophageal sphincter] Onset: 1 Resolved: 2 05-25-2016 Chronic Essential hypertension (1 source) Benign essential hypertension; Translations: [Benign essential hypertension] Chronic Genitourinary symptoms and ill-defined conditions (20 sources) Mixed incontinence; Translations: [Urinary incontinence] Onset: 2 Chronic Genitourinary symptoms and ill-defined conditions (8 sources) Urgent desire to urinate; Translations: [Urgency of urination] Onset: 2 Episodic Hypertension with complications and secondary hypertension (6 sources) Hypertensive emergency; Translations: [Hypertensive emergency] 05-15-2022 Chronic Malaise and fatigue (20 sources) Chronic fatigue syndrome; Translations: [Chronic fatigue, unspecified] Onset: 1 01-13-2021 Chronic Mood disorders (20 sources) Depressive disorder; Translations: [Major depressive disorder, single episode, unspecified] Onset: 1 07-29-2021 Chronic Mycoses (2 sources) Candidiasis; Translations: [Candidiasis, unspecified] 02-27-2023 Episodic Nausea and vomiting (3 sources) Nausea and vomiting; Translations: [Nausea with vomiting, unspecified] Onset: 3 12-17-2022 Episodic Open wounds of extremities (13 sources) Open wound of right lower leg; Translations: [Unspecified open wound, right lower leg, initial encounter] 06-16-2017 Episodic Open wounds of head; neck; and trunk (9 sources) Wound pain ; Translations: [Wound pain] 10-05-2022 Episodic Osteoarthritis (11 sources) Arthritis; Translations: [Arthritis] 07-29-2021 Chronic Other acquired deformities (9 sources) Lumbar spondylolisthesis; Translations: [Spondylolisthesis, lumbar region] Episodic Other aftercare (5 sources) Wound ; Translations: [Encounter for other specified surgical aftercare] 06-22-2022 Episodic Other aftercare (1 source) Long-term current use of drug therapy; 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] Onset: 3 Episodic Other and ill-defined heart disease (20 sources) Takotsubo cardiomyopathy; Translations: [Takotsubo syndrome] Onset: 3 05-24-2022 Chronic Other and unspecified benign neoplasm (15 sources) History of adenomatous polyp of colon; Translations: [Encounter for screening for malignant neoplasm of colon] 03-31-2020 Episodic Other and unspecified benign neoplasm (9 sources) History of polyp of colon; Translations: [Personal history of colonic polyps] Episodic Other circulatory disease (7 sources) History of cardiac arrhythmia 05-25-2016 Episodic Other connective tissue disease (20 sources) Fibromyalgia; Translations: [Fibromyalgia] Onset: 6 05-25-2016 Episodic Other connective tissue disease (9 sources) Fibromyositis; Translations: [Fibromyalgia] Episodic Other diseases of bladder and urethra (2 sources) Detrusor overactivity; Translations: [Overactive bladder] Onset: 2 Chronic Other diseases of bladder and urethra (20 sources) Overactive bladder; Translations: [Overactive bladder] Onset: 3 11-30-2021 Chronic Other diseases of veins and lymphatics (16 sources) Venous stasis; Translations: [Other specified disorders of veins] 10-23-2018 Episodic Other diseases of veins and lymphatics (15 sources) Peripheral venous insufficiency; Translations: [Venous insufficiency (chronic) (peripheral)] Episodic Other disorders of stomach and duodenum (5 sources) Indigestion; Translations: [Functional dyspepsia] Episodic Other gastrointestinal disorders (16 sources) Irritable bowel syndrome; Translations: [Irritable bowel syndrome without diarrhea] Onset: 8 05-25-2016 Chronic Other gastrointestinal disorders (1 source) Irritable bowel syndrome without diarrhea Onset: 2 Resolved: 2 Chronic Other gastrointestinal disorders (3 sources) Irritable bowel syndrome characterized by constipation; Translations: [Irritable bowel syndrome with constipation] Chronic Other gastrointestinal disorders (1 source) Irritable bowel syndrome with constipation Onset: 2 Resolved: 2 Chronic Other gastrointestinal disorders (11 sources) Constipation; Translations: [Constipation] 05-25-2016 Episodic Other gastrointestinal disorders (3 sources) Dysphagia; Translations: [Dysphagia, unspecified] Episodic Other hematologic conditions (20 sources) Raised cardiac enzyme or marker; Translations: [Other specified abnormalities of plasma proteins] 05-18-2022 Episodic Other hereditary and degenerative nervous system conditions (20 sources) Restless legs; Translations: [Restless legs syndrome] Onset: 6 05-25-2016 Chronic Other nervous system disorders (18 sources) Chronic pain; Translations: [Other chronic pain] Chronic Other non-traumatic joint disorders (7 sources) Knee pain 05-25-2016 Episodic Other nutritional; endocrine; and metabolic disorders (17 sources) Obesity; Translations: [Obesity, unspecified] 03-29-2017 Chronic Other nutritional; endocrine; and metabolic disorders (9 sources) Obese class II; Translations: [Body mass index (BMI) 35.0-35.9, adult] Chronic Other nutritional; endocrine; and metabolic disorders (2 sources) Body mass index 30+ - obesity; Translations: [Body mass index (BMI) 31.0-31.9, adult] Chronic Other nutritional; endocrine; and metabolic disorders (1 source) Body mass index (BMI) 31.0-31.9, adult; Translations: [Body mass index (BMI) 31.0-31.9, adult] Onset: 3 Chronic Other nutritional; endocrine; and metabolic disorders (5 sources) Obesity, unspecified; Translations: [Obesity, unspecified] 10-26-2022 Chronic Other screening for suspected conditions (not mental disorders or infectious disease) (20 sources) Encounter for screening for malignant neoplasm of colon; Translations: [Abnormal cardiovascular function] 05-18-2022 Episodic Other skin disorders (16 sources) Ulcer; Translations: [Ulcerative lesion] 10-23-2018 Chronic Residual codes; unclassified (4 sources) Walking aid use - finding; Translations: [Dependence on other enabling machines and devices] 10-05-2022 Chronic Residual codes; unclassified (5 sources) Dependence on other enabling machines and devices; Translations: [Dependence on other enabling machines] 10-26-2022 Chronic Residual codes; unclassified (6 sources) Swelling - edema - symptom; Translations: [Edema, unspecified] Episodic Residual codes; unclassified (10 sources) Edema; Translations: [Edema, unspecified] 10-23-2018 Episodic Residual codes; unclassified (1 source) Refused procedure - parent's wish; Translations: [Procedure and treatment not carried out because of patient's decision for other reasons] Onset: 3 Episodic Residual codes; unclassified (5 sources) Edema, unspecified; Translations: [Edema] 10-26-2022 Episodic Screening and history of mental health and substance abuse codes (10 sources) Ex-smoker; Translations: [Personal history of nicotine dependence] Episodic Comment on above: 2009; Skin and subcutaneous tissue infections (1 source) Cellulitis; Translations: [Cellulitis of unspecified part of limb] Onset: 09-27-2022 Episodic Spondylosis; intervertebral disc disorders; other back problems (20 sources) Degeneration of lumbar intervertebral disc; Translations: [Other intervertebral disc degeneration, lumbar region] Onset: 12-29-2020 Resolved: 12-29-2020 1 Chronic Superficial injury; contusion (4 sources) Contusion of knee; Translations: [Contusion of unspecified knee, initial encounter] 3 Episodic Thyroid disorders (20 sources) Hypothyroidism; Translations: [Hypothyroidism, unspecified] Onset: 09-06-2022 7 Chronic Unclassified (9 sources) Inflammatory disorder; Translations: [Inflammation] 3 Unclassified (1 source) Non-pressure chronic ulcer of other part of left lower leg limited to breakdown of skin; Translations: [Non-pressure chronic ulcer of other part of left lower leg limited to breakdown of skin] Onset: 03-13-2023 Unclassified (1 source) Non-pressure chronic ulcer of unspecified part of left lower leg limited to breakdown of skin; Translations: [Non-pressure chronic ulcer of unspecified part of left lower leg limited to breakdown of skin] Onset: 01-04-2023 Unclassified (1 source) 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; Translations: [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] Onset: 11-04-2022 Unclassified (1 source) Pain in left knee; Translations: [Pain in left knee] Onset: 11-04-2022 Unclassified (1 source) Encounter for change or removal of drains; Translations: [Encounter for change or removal of drains] Onset: 06-22-2022 Unclassified (1 source) Pain in left wrist; Translations: [Pain in left wrist] Onset: 04-06-2022 Urinary tract infections (10 sources) Urinary tract infectious disease; Translations: [Urinary tract infection, site not specified] Onset: 07-29-2021 Episodic Varicose veins of lower extremity (20 sources) Varicose veins of lower extremity; Translations: [Venous ulcer of leg] 9 Episodic Viral infection (16 sources) Herpes simplex; Translations: [Herpes simplex type 2 infection] 7 Episodic Past or Other Problems Problem Classification Problem Date Documented Da te Episodic/Chronic Abdominal pain (20 sources) Acute abdominal pain; Translations: [Unspecified abdominal pain] Onset: 05-16-2022 05-17-2022 Episodic Gastritis and duodenitis (4 sources) Gastritis; Translations: [Gastritis, other, specified, without mention of hemorrhage] Episodic Headache; including migraine (4 sources) Headache; Translations: [Chronic headaches] Episodic Hemorrhoids (4 sources) Hemorrhoids without complication; Translations: [Hemorrhoids without complication] Episodic Nonspecific chest pain (1 source) Chest pain, unspecified; Translations: [Chest pain, unspecified] Onset: 05-15-2022 Episodic Other acquired deformities (1 source) Spondylolisthesis, lumbar region; Translations: [Spondylolisthesis, lumbar region M43.16] Onset: 12-29-2020 Resolved: 12-29-2020 Episodic Other and unspecified benign neoplasm (4 sources) Tubular adenoma of colon; Translations: [Tubular adenoma of colon] Episodic Other connective tissue disease (1 source) Fibromyalgia; Translations: [Fibromyalgia M79.7] Onset: 12-29-2020 Resolved: 12-29-2020 Episodic Other diseases of veins and lymphatics (1 source) Venous insufficiency (chronic) (peripheral) Onset: 02-23-2021 Resolved: 02-23-2021 Episodic Other diseases of veins and lymphatics (20 sources) Stasis dermatitis; Translations: [Venous insufficiency (chronic) (peripheral)] Onset: 11-03-2020 05-16-2022 Episodic Other disorders of stomach and duodenum (1 source) Functional dyspepsia Onset: 07-01-2021 Resolved: 07-01-2021 Episodic Other gastrointestinal disorders (1 source) Dysphagia, unspecified Onset: 12-07-2021 Resolved: 12-07-2021 Episodic Spondylosis; intervertebral disc disorders; other back problems (20 sources) Low back pain; Translations: [Spinal stenosis of lumbar region] Onset: 07-25-2017 Resolved: 12-29-2020 05-25-2016 Episodic Unclassified (3 sources) Open wound of right lower leg; Translations: [Traumatic open wound of right lower leg] Results Test Name Value Interpretation Reference Range Facil ity Ambulatory Visit Summaryon 1 05-03-2022 Ambulatory Visit Summary GERRY VICTORIA :1955 Visit Date:03/02/2023 Ambulatory Visit Instructions Your Diagnosis Urinary incontinence OAB (overactive bladder) Recurrent UTI Tests Performed Urnls Dip Stick Auto w/o Microscopy POC [address] Your Care Team Attending Physician - DARRYN Alicia APRN, [place] [facility] Primary Care Physician - WARD ZUNIGA DO This Is Your Medications List oxybutynin (oxybutynin 10 mg ER Tab) Contact prescribing physician if questions or concerns acetaminophen (acetaminophen 325 mg Tab) acyclovir (acyclovir 400 mg Tab) amitriptyline (amitriptyline 50 mg Tab) aspirin (aspirin 81 mg Oral EC Tab) atenolol (atenolol 50 mg Tab) calcium carbonate (calcium (as carbonate) 600 mg oral tablet) cholecalciferol (Vitamin D3 2000 intl units oral Tab) diphenhydrAMINE (Benadryl 25 mg Tab) docusate (docusate sodium 100 mg Cap) escitalopram (Lexapro 10 mg Tab) gabapentin (gabapentin 100 mg Cap) lactobacillus acidophilus (Acidophilus Probiotic Blend) levothyroxine (levothyroxine 150 mcg (0.15 mg) Tab) multivitamin with minerals (Celebrate Multivitamin) omeprazole (omeprazole 20 mg Cap-DR) psyllium (Metamucil 525 mg oral capsule) ropinirole (Requip 2 mg Tab) tramadol Procedures Performed Cholecystectomy (07/26/2022), Injection of sacroiliac joint using fluoroscopic guidance (02/15/2021), Vein (10/16/2020), Release of trigger finger (06/29/2017), Total knee replacement (05/30/2016), Right ring trigger finger release (05/02/2016), Colonoscopy, Drainage biliary catheter, History of hysterectomy, Replacement of right knee joint. Discharge Vitals Temperature (Temporal Artery) 36.1 ?C Heart Rate (Peripheral) 71 Blood Pressure 128/81 Height 154 cm Height 61 in Weight 73.7 kg Weight 162.14 lb BMI 31.08 What to do next Scheduled Follow-Up Appointments 2023 1:00 PM EST With: MARYCARMEN NAVA PA-C Where: [facility] Patient Educationon 03-02-20 Patient Education Obstetrics and Gynec ology Kegel Exercises Kegel exercises can help strengthen your pelvic floor muscles. The pelvic floor is a group of muscles that support your rectum, small intestine, and bladder. In females, pelvic floor muscles also help support the uterus. These muscles help you control the flow of urine and stool (feces). Kegel exercises are painless and simple. They do not require any equipment. Your provider may suggest Kegel exercises to: ? Improve bladder and bowel control. ? Improve sexual response. ? Improve weak pelvic floor muscles after surgery to remove the uterus (hysterectomy) or after , in females. ? Improve weak pelvic floor muscles after prostate gland removal or surgery, in males. Kegel exercises involve squeezing your pelvic floor muscles. These are the same muscles you squeeze when you try to stop the flow of urine or keep from passing gas. The exercises can be done while sitting, standing, or lying down, but it is best to vary your position. Ask your health care provider which exercises are safe for you. Do exercises exactly as told by your health care provider and adjust them as directed. Do not begin these exercises until told by your health care provider. Exercises How to do Kegel exercises: 1. Squeeze your pelvic floor muscles tight. You should feel a tight lift in your rectal area. If you are a female, you should also feel a tightness in your vaginal area. Keep your stomach, buttocks, and legs relaxed. 2. Hold the muscles tight for up to 10 seconds. 3. Breathe normally. 4. Relax your muscles for up to 10 seconds. 5. Repeat as told by your health care provider. Repeat this exercise daily as told by your health care provider. Continue to do this exercise for at least 4?6 weeks, or for as long as told by your health care provider. You may be referred to a physical therapist who can help you learn more about how to do Kegel exercises. Depending on your condition, your health care provider may recommend: ? Varying how long you squeeze your muscles. ? Doing several sets of exercises every day. ? Doing exercises for several weeks. ? Making Kegel exercises a part of your regular exercise routine. This information is not intended to replace advice given to you by your health care provider. Make sure you discuss any questions you have with your health care provider. Document Revised: 07/22/2021 Document Reviewed: 07/22/2021 [employer] Patient Education ? 2022 [employer]. [employer] Urology Office/Clinic Noteon 03-02-2023 Urology Office/Clinic Note Chief Complaint 1 year F/U HPI Staff 67 yo female here for 1 yr f/u. Previous DX: urinary incontinence, OAB, recurrent UTI. Could not give a urine sample today Oxybutynin 10 mg She states this is working great for her Dysuria:denies Incomplete bladder emptying: denies Hematuria: denies visible blood Frequency: every couple hours Urgency: denies Nocturia: denies Stream: denies hesitation, normal stream Leaking: denies Post void dripping: denies Wearing pads/ Depends: denies Urge incontinence: denies Stress incontinence: denies Incontinence without Sensory Awareness: denies Abdominal pain: denies Flank pain: denies Sexual complaints: denies History of Present Illness staff HPI reviewed and agree. Review of Systems PHQ Score Initial Depression Screen Score: 0 SCORE no fever, chills, malaise, myalgia. no rash/lesions. no chest pain, palpitations, or SOB. no abdominal pain, nausea, vomiting. no unilateral calf swelling, redness, pain Physical Exam Vitals & Measurements T: 36.1 ?C(Temporal Artery) HR: 71(Peripheral) BP: 128/81 HT: 61 in HT: 154 cm WT: 73.7 kg WT: 162.14 lb BMI: 31.08 General: nontoxic, NAD Mouth: moist mucosa Lungs: normal respiratory effort Cardio: regular rate, good distal perfusion Abdomen: nondistended, no suprapubic distention or tenderness, no CVA tenderness Neurologic: Grossly normal Skin: No rashes or suspicious lesions Assessment/Plan AILEEN pt. 1. Urinary incontinence (R32: Unspecified urinary incontinence) Pt is currently taking Oxybutynin 10mg ER QD. Pt states that she has had no urinary issues since last visit and the Oxybutynin has helped, no leakage. Pt states that she does not get up that often at night, normally is woken up from her cats, not from the urge to void. Denies any SE's from the Oxybutynin. Follow up in 1 yr. All questions/concerns were discussed. Pt to call the office if she encounters any issues prior. Pt acknowledges understanding. -Continue Oxybutynin as above. Pt is to call for refills. 2. OAB (overactive bladder) (N32.81: Overactive bladder) See #1 3. Recurrent UTI (N39.0: Urinary tract infection, site not specified) Pt couldn't tolerate estrogen cream, dc'd it. Pt did not give urine sample today. Pt denies any infections since last visit and any infection sxs currently. -Pt knows to call our office if she feels she has an infection in the future or sees blood in urine. Follow-up With When Contact Information DARRYN Alicia APRN, SHAHNAZ Ovalles, URL In 1 year Additional Instructions: Patient Education Keniko Duenas I, Gema Erickson, personally scribed for Ketty HAYES on 03/02/2023 13:37:28. . Documentation recorded by the scribe _ accurately reflects the services(s) I performed and decisions made by me. Authenticated by Ketty Alicia APRN, FNP-C on 03/02/2023 13:39:46. Problem List/Past Medical History Ongoing Arthritis Atrial fibrillation CAD (coronary atherosclerotic disease) Chronic fatigue syndrome Degenerative disc disease, lumbar Depression HLD (hyperlipidemia) Hypothyroid OAB (overactive bladder) PSVT (paroxysmal supraventricular tachycardia) Recurrent UTI RLS (restless legs syndrome) Urinary incontinence Historical No qualifying data Procedure/Surgical History Cholecystectomy (07/26/2022), Injection of sacroiliac joint using fluoroscopic guidance (02/15/2021), Vein (10/16/2020), Release of trigger finger (06/29/2017), Total knee replacement (05/30/2016), Right ring trigger finger release (05/02/2016), Colonoscopy, Drainage biliary catheter, History of hysterectomy, Replacement of right knee joint. Medications acetaminophen 325 mg Tab, 650 mg= 2 tab(s), Oral, q6hr Acidophilus Probiotic Blend, 1 cap(s), Oral, Daily acyclovir 400 mg Tab, 400 mg= 1 tab(s), Oral, Once a day (at bedtime) amitriptyline 50 mg Tab, 50 mg= 1 tab(s), Oral, Once a day (at bedtime) aspirin 81 mg Oral EC Tab, 81 mg= 1 tab(s), Oral, Daily atenolol 50 mg Tab, 50 mg= 1 tab(s), Oral, Daily Benadryl 25 mg Tab, Daily, PRN calcium (as carbonate) 600 mg oral tablet, 1200 mg= 2 tab(s), Oral, Daily Celebrate Multivitamin, 1 tab(s), Chewed, Daily docusate sodium 100 mg Cap, 200 mg= 2 cap(s), Oral, qPM gabapentin 100 mg Cap, 200 mg= 2 cap(s), Oral, BID levothyroxine 150 mcg (0.15 mg) Tab, 150 mcg= 1 tab(s), Oral, Daily Lexapro 10 mg Tab, 10 mg= 1 tab(s), Oral, Daily Metamucil 525 mg oral capsule, 2625 mg= 5 cap(s), Oral, Daily, PRN omeprazole 20 mg Cap-DR, 20 mg= 1 cap(s), Oral, Daily oxybutynin 10 mg ER Tab, 10 mg= 1 tab(s), Oral, Daily, 3 refills Requip 2 mg Tab, 2 mg= 1 tab(s), Oral, BID tramadol, 50 mg, Oral, q8hr, PRN Vitamin D3 2000 intl units oral Tab, 50 mcg, Oral, Daily Allergies Adhesive Bandage (rash) Cymbalta (unable to function properly d/t drowsiness) Lyrica (edema of feet) Social History Alcohol - (more content not included)... Normal [facility] Comment on above: Result Comment: Elec tronically Signed By: DARRYN Alicia APRN, [place] X\.br\Date and Time Signed: 03/02/23 13:39 EST\.br\Electronically Co-Signed By: Gema Erickson\.br\Date and Time Co-Signed: 03/02/23 13:37 EST Alanine aminotransferase [En zymatic activity/volume] in Serum or PlasmaOrdered By: Pravin Granado on 12-17-2022 ALT [Catalytic activity/Vol] 11 U/L 7-52 [facility] Albumin [Mass/volume] in Ser um or Plasma by Bromocresol green (BCG) dye binding methoOrdered By: Pravin Granado on 12-17-2022 Albumin BCG dye [Mass/Vol] 4.4 g/dL 3.5-5.7 [facility] Alkaline phosphatase [Enzyma tic activity/volume] in Serum or PlasmaOrdered By: Pravin Granado on 12-17-2022 ALP [Catalytic activity/Vol] 79 U/L 34-104 [facility] Amylaseon 12-17-2022 Amylase [Catalytic activity/Vol] 22 U/L Low 29- 103 [facility] Comment on above: Performed By: #### L [facility] MEYERS, CMP #### [address] Amylase [Enzymatic activity/ volume] in Serum or PlasmaOrdered By: Pravin Granado on 12-17-2022 Amylase [Catalytic activity/Vol] 22 U/L 29- 103 [facility] Aspartate aminotransferase [ Enzymatic activity/volume] in Serum or PlasmaOrdered By: Pravin Granado on 12-17-2022 AST [Catalytic activity/Vol] 22 U/L 13-39 [facility] Basophils Auto (Bld) [#/Vol] Ordered By: Pravin Granado on 12-17-2022 Basophils (Bld) [#/Vol] 0.0 10*3/uL 0.0-0.2 [facility] Basophils/100 WBC Auto (Bld) Ordered By: Pravin Granado on 12-17-2022 Basophils/100 WBC (Bld) 0.9 % . F [facility] Bilirubin.total [Mass/volume ] in Serum or PlasmaOrdered By: Pravin Granado on 12-17-2022 Bilirubin [Mass/Vol] 0.7 mg/dL 0.3-1.0 [facility] Calcium [Mass/volume] in Ser um or PlasmaOrdered By: Pravin Granado on 12-17-2022 Calcium [Mass/Vol] 9.4 mg/dL 8.6-10.3 [facility] Carbon dioxide, total [Moles /volume] in Serum or PlasmaOrdered By: Pravin Granado on 12-17-2022 CO2 [Moles/Vol] 29.9 mmol/L 21.0-31.0 [facility] Chloride [Moles/volume] in S nia or PlasmaOrdered By: Pravin Granado on 12-17-2022 Chloride [Moles/Vol] 101 mmol/L 98-107 [facility] Complete Blood Count Auto Di ffon 12-17-2022 Basophils (Bld) [#/Vol] 0.0 10*3/uL Normal 0.0-0.2 [facility] Comment on above: Result Comment: PERF ORMED BY: [place] [address] PATHOLOGIST [employer]ENT WILDER BOTELLO M.D. Performed By: #### C BC #### [address] Basophils/100 WBC (Bld) 0.9 % Normal . F [facility] Comment on above: Performed By: #### C BC #### [facility] [address] Eosinophils (Bld) [#/Vol] 0.1 10*3/uL Normal 0.0-0.45 [facility] [facility] Comment on above: Performed By: #### C BC #### [address] Eosinophils/100 WBC (Bld) 2.9 % Normal . [facility] Comment on above: Performed By: #### C BC #### [address] Erythrocyte distribution wid th (RBC) [Ratio] 17.1 % High 11.9-15.3 [facility] Comment on above: Performed By: #### C BC #### [address] Hematocrit (Bld) [Volume fraction] 33.5 % Low 34.0-46.4 [facility] Comment on above: Performed By: #### C BC #### [address] Hemoglobin (Bld) [Mass/Vol] 11.0 g/dL Low 11.8-15. 4 [facility] Comment on above: Performed By: #### C BC #### [address] Lymphocytes (Bld) [#/Vol] 1.2 10*3/uL Normal 1.00-4.8 [facility] Comment on above: Performed By: #### C BC #### [address] Lymphocytes/100 WBC (Bld) 24.6 % Normal . [facility] Comment on above: Performed By: #### C BC #### [address] MCH (RBC) [Entitic mass] 27.0 pg Normal 24.7-34.3 [facility] Comment on above: Performed By: #### C BC #### [address] MCV (RBC) [Entitic vol] 82.6 fL Normal 80-100 [facility] Comment on above: Performed By: #### C BC #### [address] Mean Corpuscular HGB Conc 32.7 g/dL Normal 32.0-35.0 [facility] Comment on above: Performed By: #### C BC #### [address] Monocytes (Bld) [#/Vol] 0.3 10*3/uL Normal 0.0-0.8 [facility] Comment on above: Performed By: #### C BC #### [facility] [address] [place] [id number] [place] Monocytes/100 WBC (Bld) 19.78 % Normal 0.00-20.00 [facility] Comment on above: Performed By: #### C BC #### [facility] [address] [place] [id number] [place] Monocytes/100 WBC (Bld) 6.1 % Normal . [facility] Comment on above: Performed By: #### C BC #### [facility] [address] [place] [address] [place] Neutrophils (Bld) [#/Vol] 3.1 10*3/uL Normal 1.8-7.7 [facility] Comment on above: Performed By: #### C BC #### [facility] [address] Neutrophils/100 WBC (Bld) 65.5 % Normal . [facility] Comment on above: Performed By: #### C BC #### [facility] [address] [place] [id number] [facility] NRBC% 0.3 /100{WBC} Normal 0-0.5 [facility] Comment on above: Performed By: #### C BC #### [facility] [address] Platelet mean volume (Bld) [Entitic vol] 8.1 fL Normal 6.3-10.7 [facility] Comment on above: Performed By: #### C BC #### [facility] [address] [place] [id number] [place] Platelets (Bld) [#/Vol] 236 10*3/uL Normal 150-450 [facility] Comment on above: Performed By: #### C BC #### [facility] [address] [place] [address] [place] RBC (Bld) [#/Vol] 4.05 10*6/uL Normal 3.60-5.00 [facility] Comment on above: Performed By: #### C BC #### [facility] [address] WBC (Bld) [#/Vol] 4.8 10*3/uL Normal 3.8-11.6 [facility] Comment on above: Performed By: #### C BC #### [address] Comprehensive Metabolic Pane lit 12-17-2022 Albumin [Mass/Vol] 4.4 g/dL Normal 3.5-5.7 [facility] Comment on above: Performed By: #### L IPASE UMU, CMP #### [address] Albumin/Globulin [Mass ratio] 1.4 {ratio} Normal [facility] Comment on above: Performed By: #### L IPASE UMU, CMP #### [address] ALP [Catalytic activity/Vol] 79 U/L Normal 34-104 [facility] Comment on above: Performed By: #### L IPASE UMU, CMP #### [address] ALT [Catalytic activity/Vol] 11 U/L Normal 7-52 [facility] Comment on above: Performed By: #### L IPASE UMU, CMP #### [address] Anion gap [Moles/Vol] 9.4 mmol/L Normal 6.0-15.0 [facility] Comment on above: Performed By: #### L IPASE UMU, CMP #### [address] AST [Catalytic activity/Vol] 22 U/L Normal 13-39 [facility] Comment on above: Performed By: #### L IPASE, UMU, CMP #### [address] Bilirubin [Mass/Vol] 0.7 mg/dL Normal 0.3-1.0 [facility] Comment on above: Performed By: #### L UMU MEYERS, CMP #### [facility] [address] Calcium [Mass/Vol] 9.4 mg/dL Normal 8.6-10.3 [facility] Comment on above: Performed By: #### L UMU MEYERS, CMP #### [facility] [address] Chloride [Moles/Vol] 101 mmol/L Normal 98-107 [facility] Comment on above: Performed By: #### L UMU MEYERS, CMP #### [facility] [address] CO2 [Moles/Vol] 29.9 mmol/L Normal 21.0-31.0 [facility] Comment on above: Performed By: #### L UMU MEYERS, CMP #### [facility] [address] Creatinine [Mass/Vol] 0.90 mg/dL Normal 0.60-1.20 [facility] Comment on above: Performed By: #### L UMU MEYERS, CMP #### [facility] [address] [place] [address] [place] GFR/1.73 sq M.predicted MDRD (S/P/Bld) [Vol rate/Area] mL/min/{1.73_m2} Normal [facility] Comment on above: Performed By: #### L UMU MEYERS, CMP #### [facility] [address] Globulin (S) [Mass/Vol] 3.1 g/dL Normal [facility] Comment on above: Performed By: #### L UMU MEYERS, CMP #### [facility] [address] Glucose [Mass/Vol] 119 mg/dL High 70-100 [facility] Comment on above: Result Comment: [place] Glucose Reference Range is dependent on time and content of last meal. Glucose of more than 200 mg/dL in a nonstressed, ambulatory subject supports the diagnosis of Diabetes Mellitus. ADA recommended reference range Performed By: #### L IPASE, UMU, CMP #### [facility] [address] Potassium [Moles/Vol] 3.3 mmol/L Low 3.5-5.1 [facility] Comment on above: Performed By: #### L IPASE, UMU, CMP #### [facility] [address] Protein [Mass/Vol] 7.5 g/dL Normal 6.4-8.9 [facility] Comment on above: Performed By: #### L IPASE, UMU, CMP #### [facility] [address] Sodium [Moles/Vol] 137 mmol/L Normal 136-145 [facility] Comment on above: Performed By: #### L IPASE, UMU, CMP #### [facility] [address] Urea nitrogen [Mass/Vol] 14 mg/dL Normal 7-25 [facility] Comment on above: Performed By: #### L IPASE, UMU, CMP #### [facility] [address] Creatinine [Mass/volume] in Serum or PlasmaOrdered By: Pravin Granado on 12-17-2022 Creatinine [Mass/Vol] 0.90 mg/dL 0.60-1.20 [facility] ECG 12 lead ECGon 12-17-2022 ECG 12 lead ECG [facility] [address] [place] [address] Electrocardiograph Report Signed Patient: Gerry Victoria MR#: [id number] 10 : 1955 Acct:[id number] Age/Sex: 67 / F ADM Date: 12/17/22 Loc: ER Room: Type: [facility] ER Attending Dr: Ordering Provider: Pravin Granado MD Date of Service: 12/17/22 ECG/ECG 12 lead ECG: Nausea/Vomiting/Diarrhea Copies to: Test Reason : Blood Pressure : 144/068 mmHG Vent. Rate : 070 BPM Atrial Rate : 070 BPM P-R Int : 224 ms QRS Dur : 090 ms QT Int : 424 ms P-R-T Axes : 026 037 059 degrees QTc Int : 457 ms Sinus rhythm with 1st degree AV block Otherwise normal ECG When compared with ECG of 15-MAY-2022 20:35, [place] interval has increased T wave amplitude has decreased in Inferior leads T wave amplitude has decreased in Anterior leads Confirmed by PRAVIN GRANADO MD ([id number]) on 12/17/2022 3:34:33 PM Referred By: Electronically Signed By:PRAVIN GRANADO MD Transcribed By: MUS Signed By Pravin Granado MD 12/17/22 1534 Normal [facility] Eosinophils Auto (Bld) [#/Vo l]Ordered By: Pravin Granado on 12-17-2022 Eosinophils (Bld) [#/Vol] 0.1 10*3/uL 0.0-0.45 [facility] Eosinophils/100 WBC Auto (Bl d)Ordered By: Pravin Granado on 12-17-2022 Eosinophils/100 WBC (Bld) 2.9 % . [facility] Erythrocyte distribution wid th Auto (RBC) [Ratio]Ordered By: Pravin Granado on 12-17-2022 Erythrocyte distribution wid th (RBC) [Ratio] 17.1 % 11.9-15.3 [facility] Globulin Calc (S) [Mass/Vol] Ordered By: Pravin Granado on 12-17-2022 Globulin (S) [Mass/Vol] 3.1 g/dL [facility] Glucose [Mass/volume] in Ser um or PlasmaOrdered By: Pravin Granado on 12-17-2022 Glucose [Mass/Vol] 119 mg/dL 70-100 [facility] Comment on above: ADA recommended refe rence rangeRandom Glucose Reference Range is dependent on time and content of last meal. Glucose of more than 200 mg/dL in a nonstressed, ambulatory subject supports the diagnosis of Diabetes Mellitus. Hematocrit Auto (Bld) [Volum e fraction]Ordered By: Pravin Granado on 12-17-2022 Hematocrit (Bld) [Volume fraction] 33.5 % 3 4.0-46.4 [facility] Hemoglobin [Mass/volume] in BloodOrdered By: Pravin Granado on 09-23-2023 Hemoglobin (Bld) [Mass/Vol] 11.0 g/dL 11.8-15. 4 [facility] Leukocytes [#/volume] correc poly for nucleated erythrocytes in Blood by Automated counOrdered By: Pravin Granado on 12-17-2022 WBC corrected for nucl RBC A uto (Bld) [#/Vol] 4.8 10*3/uL 3.8-11.6 [facility] Lipaseon 12-17-2022 Lipase [Catalytic activity/Vol] 8.0 U/L Low 11.0 -82.0 [facility] Comment on above: Result Comment: PERF ORMED BY: [place] [address] PATHOLOGIST [employer] WILDER BOTELLO M.D. Performed By: #### L UMU MEYERS, CMP #### [address] Lipase [Enzymatic activity/v olume] in Serum or PlasmaOrdered By: Pravin Granado on 12-17-2022 Lipase [Catalytic activity/Vol] 8.0 U/L 11.0 -82.0 [facility] Lymphocytes Auto (Bld) [#/Vo l]Ordered By: Pravin Granado on 12-17-2022 Lymphocytes (Bld) [#/Vol] 1.2 10*3/uL 1.00-4.8 [facility] Lymphocytes/100 WBC Auto (Bl d)Ordered By: Pravin Granado on 12-17-2022 Lymphocytes/100 WBC (Bld) 24.6 % . [facility] MCH Auto (RBC) [Entitic mass ]Ordered By: Pravin Granado on 12-17-2022 MCH (RBC) [Entitic mass] 27.0 pg 24.7-34.3 [facility] MCHC Auto (RBC) [Mass/Vol]Or dered By: Pravin Granado on 12-17-2022 MCHC (RBC) [Mass/Vol] 32.7 g/dL 32.0-35.0 [facility] MCV Auto (RBC) [Entitic vol] Ordered By: Pravin Granado on 12-17-2022 MCV (RBC) [Entitic vol] 82.6 fL 80-100 [facility] Monocyte distribution width [Entitic volume] in Blood by AutomatedOrdered By: Pravin Granado on 12-17-2022 Monocyte distribution width Auto (Bld) [Entitic vol] 19.78 % 0.00-20.00 [facility] Monocytes Auto (Bld) [#/Vol] Ordered By: Pravin Granado on 12-17-2022 Monocytes (Bld) [#/Vol] 0.3 10*3/uL 0.0-0.8 [facility] Monocytes/100 WBC Auto (Bld) Ordered By: Pravin Granado on 12-17-2022 Monocytes/100 WBC (Bld) 6.1 % . [facility] Neutrophils Auto (Bld) [#/Vo l]Ordered By: Pravin Granado on 12-17-2022 Neutrophils (Bld) [#/Vol] 3.1 10*3/uL 1.8-7.7 [facility] Neutrophils/100 WBC Auto (Bl d)Ordered By: Pravin Granado on 12-17-2022 Neutrophils/100 WBC (Bld) 65.5 % . [facility] No Panel InformationOrdered By: Pravin Granado on 12-17-2022 Estimated GFR (CKD-EPI) > 60.0 mL/Min [facility] Creatinine Clearanc e (Chem N/A [facility] Nucleated erythrocytes [Pres ence] in Blood by Automated countOrdered By: Pravin Granado on 12-17-2022 Nucleated RBC Auto Ql (Bld) 0.3 /100{WBC} 0-0.5 [facility] Platelet mean volume Auto (B ld) [Entitic vol]Ordered By: Pravin Granado on 12-17-2022 Platelet mean volume (Bld) [Entitic vol] 8.1 fL 6.3-10.7 [facility] Platelets Auto (Bld) [#/Vol] Ordered By: Pravin Granado on 12-17-2022 Platelets (Bld) [#/Vol] 236 10*3/uL 150-450 [facility] Potassium [Moles/volume] in Serum or PlasmaOrdered By: Pravin Granado on 12-17-2022 Potassium [Moles/Vol] 3.3 mmol/L 3.5-5.1 [facility] Protein [Mass/volume] in Ser um or PlasmaOrdered By: Pravin Granado on 12-17-2022 Protein [Mass/Vol] 7.5 g/dL 6.4-8.9 [facility] RBC Auto (Bld) [#/Vol]Ordere d By: Pravin Granado on 12-17-2022 RBC (Bld) [#/Vol] 4.05 10*6/uL 3.60-5.00 [facility] Serum or plasma albumin/glob ulin mass ratioOrdered By: Pravin Granado on 12-17-2022 Albumin/Globulin [Mass ratio] 1.4 {ratio} [facility] Serum or plasma anion gap de terminationOrdered By: Pravin Granado on 12-17-2022 Anion gap [Moles/Vol] 9.4 mmol/L 6.0-15.0 [facility] Sodium [Moles/volume] in Ser um or PlasmaOrdered By: Pravin Granado on 12-17-2022 Sodium [Moles/Vol] 137 mmol/L 136-145 [facility] Urea nitrogen [Mass/volume] in Serum or PlasmaOrdered By: Pravin Granado on 12-17-2022 Urea nitrogen [Mass/Vol] 14 mg/dL 7-25 [facility] WBC Auto (Bld) [#/Vol]Ordere d By: Pravin Granado on 12-17-2022 WBC (Bld) [#/Vol] 4.8 10*3/uL 3.8-11.6 [facility] US venous duplex LE LTon [place] [address] Ultrasound Report Signed Patient: Gerry Victoria MR#: [id number] 10 : 1955 Acct:[id number] Age/Sex: 67 / F ADM Date: 11/04/22 Loc: UL Room: Type: [facility] Attending Dr: Ward Mtz MD Ordering Provider: Ward Mtz MD Date of Service: 11/04/22 US/US venous duplex LE LT: PAD WITH ULCERS Copies to: Ward Mtz MD Left lower extremity full functional venous duplex examination Indication for study: Venous insufficiency with ulceration PROCEDURE: Color-flow duplex scanning is used to interrogate the venous anatomy of the left lower extremity. There is no evidence for deep vein thrombosis. The left common femoral vein, femoral vein, popliteal veins show good compressibility, color-flow, and augmentation. There is severe venous valvular incompetence in all segments examined. There is reflux for greater than 5 seconds at the saphenofemoral junction and at the junction of the lesser saphenous vein to the popliteal vein. Likewise there is reflux within the femoral vein and popliteal vein for greater than 5 seconds. Left greater saphenous vein appears to been ablated. There is a 4 mm varix which arises early from the saphenofemoral junction. Below the knee the saphenous vein is patent and is 7 mm in greatest diameter. Moderately severe equity structurer incompetence is noted with 3 separate calf perforators that are 3 mm in diameter. The lesser saphenous vein is dilated at almost 6 mm and remains just under 5 mm to the mid calf. US/US venous duplex LE IMPRESSION: There is severe deep and superficial venous valvular incompetence in the left leg. The left greater saphenous vein is been ablated. Reflux in the saphenofemoral junction and empties into large varicosities at the first portion of the thigh. The the greater saphenous vein is patent below the knee and is dilated at 7 mm with significant equity structurer incompetence. Lesser saphenous vein is also incompetent and dilated. Impression dictated by: Ward Mtz M.D.11/07/2022 12:52 PM Dictation Location: VASCPACS-PC1 Tech: Ana Shrestha Transcribed By: MANUEL 11/07/22 1252 Dictated By: Ward Mtz MD 11/07/22 1249 Signed By: 11/07/22 [address] [facility] [address] [facility]2022 CT cervical spine wo [facility] Main [place] [id number] CT Scan Report Signed Patient: Gerry Victoria MR#: [id number] 10 : 1955 Acct:[id number] Age/Sex: 67 / F ADM Date: 11/04/22 Loc: ER Room: Type: PRE ER Attending Dr: Copies to: Maico Perla DO Ordering Provider: Maico Perla DO Date of Service: 11/04/22 CT/CT head/brain wo con: fall ([id number]) CT/CT cervical spine wo con: fall CLINICAL DATA: Patient fell today while walking and hit chin on the ground. Patient also has knee pain. CT BRAIN WITHOUT CONTRAST: COMPARISON: None TECHNIQUE: Contiguous axial unenhanced images were obtained through the brain. This CT exam was performed using one or more following dose reduction techniques: Automated exposure control, adjustment of the mA and/or kV according to patient size, or use of iterative reconstruction technique. FINDINGS: There is generalized atrophy. The ventricles are within normal limits for size and position. Minor microvascular changes are noted. There are no additional areas of abnormal attenuation. There is no hemorrhage, mass effect or extra-axial collections. The calvarium is intact. The imaged paranasal sinuses and mastoid air cells are clear. There is vertebral artery and carotid siphon plaque. CT/CT head/brain wo con IMPRESSION: AGE-RELATED CHANGES. NO ACUTE INTRACRANIAL TRAUMA. CT CERVICAL SPINE WITHOUT CONTRAST WITH 3D RECONSTRUCTIONS: COMPARISON: None TECHNIQUE: Spiral axial unenhanced images were obtained through the cervical spine. Sagittal, coronal and 3D volume-rendered reconstructions were also reviewed. This CT exam was performed using one or more following dose reduction techniques: Automated exposure control, adjustment of the mA and/or kV according to patient size, or use of iterative reconstruction technique. FINDINGS: There is straightening of the normal cervical lordosis. Alignment is maintained in the sagittal plane. No fractures are identified. There is mild disc space narrowing at C5-6 and C6-7. There is endplate spurring, greatest at those levels. There is also bilateral facet disease, greater on the right proximally and at the cervicothoracic junction on the left. The atlantoaxial relationship is maintained. No prevertebral soft tissue swelling is seen. There is no facial bone injury in the field of view. There is carotid artery plaque. A few shotty cervical lymph nodes are present. The upper imaged lungs show scarring or atelectasis. IMPRESSION: DEGENERATIVE CHANGES. NO ACUTE BONY INJURY. Impression dictated by: Elaine Mcadams M.D.11/04/2022 11:30 AM Dictation Location: RADIO-PC-12 Transcribed By: MANUEL 11/04/22 1130 Dictated By: Elaine Mcadams MD 11/04/22 1123 Signed By: 11/04/22 1130 [facility] XR knee LT 2Von 11-04-2022 XR knee LT 2V [facility] [address] [place] [address] XRay Report Signed Patient: Gerry Victoria MR#: [id number] 10 : 1955 Acct:[id number] Age/Sex: 67 / F ADM Date: 11/04/22 Loc: ER Room: Type: PRE ER Attending Dr: Copies to: Maico Perla DO Ordering Provider: Maico Perla DO Date of Service: 11/04/22 XR/XR knee LT 2V: Fall LEFT KNEE - 2 views COMPARISON: 08/03/2016 CLINICAL DATA: Patient fell and hit left knee. Previous knee replacement. AP and lateral views were obtained. A knee prosthesis is again visualized. The hardware appears intact and similar to the prior. There is no developing fracture or dislocation. Small enthesophytes are seen at the insertion of quadriceps and origin of the patellar tendon. There is no knee effusion. There is focal subcutaneous soft tissue prominence anterior to the lower pole of the patella and extending inferiorly. There is may be hematoma. XR/XR knee LT 2V IMPRESSION: STABLE APPEARANCE OF KNEE REPLACEMENT. NO ACUTE BONY INJURY. Impression dictated by: Elaine Mcadams M.D.11/04/2022 11:37 AM Dictation Location: RADIO-PC-12 Transcribed By: MANUEL 11/04/22 1137 Dictated By: Elaine Mcadams MD 11/04/22 1131 Signed By: 11/04/22 113 [facility] MRSA Screenon 09-29-2022 MRSA DNA ROXANA+probe Ql (Unsp spec) Microbiology PROCEDURE: MRSA Screen [R1] SOURCE: Nasal BODY SITE: COLLECTED DATE/TIME: 09/27/2022 05:44 EDT RECEIVED DATE/TIME: 09/27/2022 06:10 EDT START DATE/TIME: 09/27/2022 06:10 EDT FREE TEXT SOURCE: Maliha PADILLA DO, DO, Ronobir R FINAL REPORTS Final Report [] Verified Date/Time: 09/29/2022 09:04 EDT MRSA Negative. Performing Locations R1: This test was performed at: [facility], [address] [place] [address], [phone] , , Normal [facility] Comment on above: Performed By: #### 1 [id number] #### [facility] [address] [place] [address] Auto Diffon 09-27-2022 Basophils/100 WBC (Bld) 1.0 % Normal 0.0-2.0 F [facility] Comment on above: Order Comment: Order Added by Discern Expert. Performed By: #### 2 [id number], [id number], [id number], 7733710, 9251837, [id number], 3861221, [id number] #### [facility] [address] [place] [address] Basophils/Leukocytes Auto (B ld) [Pure # fraction] 0.1 E9/L Normal 0.0-0.2 [facility] Comment on above: Order Comment: Order Added by Discern Expert. Performed By: #### 2 [id number], [id number], 0632336, 9392030, 6230513, [id number], 2980177, 7434160 #### [facility] [address] [place] [address] Eosinophils/100 WBC (Bld) 8.4 % High 0.0-8.0 [facility] Comment on above: Order Comment: Order Added by Discern Expert. Performed By: #### 2 [id number], [id number], 1028444, 5156420, 3442517, 25611934, 0426111, [id number] #### [facility] [address] [place] [address] Eosinophils/Leukocytes Auto (Bld) [Pure # fraction] 0.5 E9/L Normal 0.0-0.5 [facility] Comment on above: Order Comment: Order Added by Discern Expert. Performed By: #### 2 678939, [id number], 7985908, 9307694, 6825094, 30444909, 1855733, 5914455 #### [facility] [address] [place] [address] Lymphocytes/100 WBC (Bld) 18.0 % Normal 14.0-50.0 [facility] Comment on above: Order Comment: Order Added by Discern Expert. Performed By: #### 2 648833, [id number], 8432562, 8758468, 0338986, 26046690, 6882220, 6484350 #### [facility] [address] [place] [address] Lymphocytes/Leukocytes Auto (Bld) [Pure # fraction] 1.1 E9/L Normal 1.0-4.0 [facility] Comment on above: Order Comment: Order Added by Discern Expert. Performed By: #### 2 [id number], [id number], 5817367, 5569710, 0642729, [id number], 1197405, 7743942 #### [facility] [address] [place] [address] Monocytes/100 WBC (Bld) 11.2 % Normal 4.0-14.0 [facility] Comment on above: Order Comment: Order Added by Discern Expert. Performed By: #### 2 091139, [id number], 7161845, 7705093, 6616381, 37461513, 6221645, 9315235 #### [facility] [address] [place] [address] Monocytes/Leukocytes Auto (B ld) [Pure # fraction] 0.7 E9/L Normal 0.2-1.0 [facility] Comment on above: Order Comment: Order Added by Discern Expert. Performed By: #### 2 725402, [id number], 8327831, 7974929, 9964634, 84832032, 5718489, 7859732 #### [facility] [address] [place] [address] Neutrophils/100 WBC (Bld) 61.4 % Normal 36.0-75.0 [facility] Comment on above: Order Comment: Order Added by Discern Expert. Performed By: #### 2 973112, [id number], 7690530, 7511023, 7927570, 31967196, 8709996, 8678807 #### [facility] [address] [place] [address] Neutrophils/Leukocytes Auto (Bld) [Pure # fraction] 3.6 E9/L Normal 2.0-7.5 [facility] Comment on above: Order Comment: Order Added by Discern Expert. Performed By: #### 2 634120, [id number], 5177280, 3825936, 2366941, 13794324, 0439069, 1556613 #### [facility] [address] [place] [address] [facility] 09-27-2022 Creatinine [Mass/Vol] 1.2 mg/dL Normal 0.5-1.3 [facility] Comment on above: Performed By: #### 2 004347, [id number], 2104293, 5754806, 9589188, 61395292, 0160172, 5901626 #### [facility] [address] [place] [address] Urea nitrogen [Mass/Vol] 17 mg/dL Normal 5-21 [facility] Comment on above: Performed By: #### 2 343271, [id number], 6722216, 9312702, 2815729, 17412919, 7988529, 0180523 #### [facility] [address] [place] [address] Urea nitrogen/Creatinine [Ma ss ratio] 14 No Units Normal 10-20 [facility] Comment on above: Performed By: #### 2 955453, 69895857, 8204045, 1753069, 4769500, 00710685, 0414279, 6630800 #### [facility] [address] [place] [address] Anion gap [Moles/Vol] 12 mmol/L Normal 6-16 [facility] Comment on above: Performed By: #### 2 790435, 63776094, 6932475, 5094357, 6132103, 61092875, 9673938, 6643379 #### [facility] [address] [place] [address] Calcium [Mass/Vol] 8.9 mg/dL Normal 8.9-11.1 [facility] Comment on above: Performed By: #### 2 784006, 47148373, 2788806, 8791804, 8005316, 72771670, 6819832, 6815669 #### [facility] [address] [place] [address] Chloride [Moles/Vol] 101 mmol/L Normal 101-111 [facility] Comment on above: Performed By: #### 2 056370, 15145638, 8646927, 6909198, 6368914, 25054258, 5185325, 4570298 #### [facility] [address] [place] [address] CO2 [Moles/Vol] 29 mmol/L Normal 21-31 [facility] Comment on above: Performed By: #### 2 030401, 67172607, 1468263, 5828388, 4640920, 65525491, 6366414, 3742620 #### [facility] [address] [place] [address] Glucose [Mass/Vol] 84 mg/dL Normal 55-199 [facility] Comment on above: Result Comment: If t his glucose result represents a fasting glucose, interpretation should refer to the following reference range: 55-99 mg/dL Performed By: #### 2 808519, 21450177, 0234624, 9388303, 7011755, 97717798, 2205529, 8991453 #### [facility] [address] [place] [address] Potassium [Moles/Vol] 3.6 mmol/L Normal 3.5-5.3 [facility] Comment on above: Performed By: #### 2 815662, 83801105, 4268565, 1794830, 3871473, 82966712, 1916899, 5728301 #### [facility] [address] [place] [address] Sodium [Moles/Vol] 138 mmol/L Normal 135-145 [facility] Comment on above: Performed By: #### 2 748368, 42586313, 9253594, 7839421, 8060015, 66228114, 1814452, 9458750 #### [facility] [address] [place] [id number] CBC w/ Auto Diffon 3 Erythrocyte distribution wid th (RBC) [Ratio] 15.9 % High 10.9-14.2 [facility] Comment on above: Performed By: #### 2 672777, 59584705, 0232675, 6171016, 7905299, 05416690, 4052936, 0679738 #### [facility] [address] [place] [address] Hematocrit (Bld) [Volume fraction] 29.2 % Low 3 4.0-46.0 [facility] Comment on above: Performed By: #### 2 029765, 23360015, 1148886, 2662969, 8717130, 33080863, 5805740, 5158430 #### [facility] [address] [place] [address] Hemoglobin (Bld) [Mass/Vol] 9.6 g/dL Low 12.0-16. 0 [facility] Comment on above: Performed By: #### 2 945286, 09482975, 3268927, 4710143, 6811044, 48780001, 3172506, 7696139 #### [facility] [address] [place] [address] MCH (RBC) [Entitic mass] 26.4 pg Low 27.0-34.0 [facility] Comment on above: Performed By: #### 2 265723, 74606331, 6835496, 2582601, 7873183, 53638232, 5383302, 4342078 #### [facility] [address] [place] [address] MCHC (RBC) [Mass/Vol] 33.0 g/dL Normal 31.4-36.0 [facility] Comment on above: Performed By: #### 2 458129, 44578872, 5552497, 4624769, 0636707, 48785549, 0018300, 9552462 #### [facility] [address] [place] [id number] MCV (RBC) [Entitic vol] 79.9 fL Low 80.0-100.0 [facility] Comment on above: Performed By: #### 2 194300, 09936437, 7175872, 4130073, 6668832, 46126970, 5224644, 9064831 #### [facility] [address] [place] [address] Platelet mean volume (Bld) [Entitic vol] 7.9 fL Normal 6.4-10.8 [facility] Comment on above: Performed By: #### 2 058143, 18749408, 4780346, 0597695, 2341967, 92097621, 6565440, 8691834 #### [facility] [address] [place] [address] Platelets (Bld) [#/Vol] 249.0 E9/L Normal 150.0-500.0 [facility] Comment on above: Performed By: #### 2 584423, 35049357, 6678607, 9126184, 3266170, 10437551, 9164289, 1389434 #### [facility] [address] [place] [address] RBC (Bld) [#/Vol] 3.7 E12/L Low 4.3-5.9 [facility] Comment on above: Performed By: #### 2 758985, 70670250, 7597823, 3793035, 1894880, 82294768, 9536443, 7563914 #### [facility] [address] [place] [address] WBC corrected for nucl RBC A uto (Bld) [#/Vol] 5.9 E9/L Normal 4.0-11.0 [facility] Comment on above: Performed By: #### 2 931403, 34188912, 3819278, 2349323, 9035908, 97189349, 2767900, 0074788 #### [facility] [address] [place] [address] CHEMISTRYOrdered By: SYSTEM SYSTEM on 09-27-2022 Albumin [Mass/Vol] 3.8 g/dL Normal 3.3 - 5.0 gm/dL [facility] Albumin/Globulin [Mass ratio] 1.2 {ratio} Normal 1.1 - 2.2 [facility] ALP [Catalytic activity/Vol] 79 [iU]/d Normal 21 - 98 Int._Unit/L [facility] ALT No additional P-5'-P [Catalytic activity/Vol] 11 [iU]/d Normal 6 - 46 Int._Unit/L [facility] Anion gap [Moles/Vol] 12 mmol/L Normal 6 - 16 mEq/L [facility] AST [Catalytic activity/Vol] 19 [iU]/d Normal 5 - 43 Int._Unit/L [facility] Bilirubin [Mass/Vol] 0.6 mg/dL Normal 0.0 - 1.1 mg/dL [facility] Bilirubin.direct [Mass/Vol] 0.1 mg/dL Normal 0.1 - 0. 4 mg/dL [facility] Bilirubin.indirect [Mass or moles/Vol] 0.5 mg/dL Normal 0.1 - 0.9 mg/dL [facility] Calcium [Mass/Vol] 8.9 mg/dL Normal 8.9 - 11.1 mg/dL [facility] Chloride [Moles/Vol] 101 mmol/L Normal 101 - 111 mmol/ L [facility] CO2 [Moles/Vol] 29 mmol/L Normal 21 - 31 mmol/L [facility] Creatinine [Mass/Vol] 1.2 mg/dL Normal 0.5 - 1.3 mg/d L [facility] CRP [Mass/Vol] 7.5 mg/dL High <=1.9mg/dL FT Remis ol GFR/1.73 sq M.predicted among non-blacks MDRD (S/P/Bld) [Vol rate/Area] 49 mL/min/1.73 m2 Low >=59mL/min/1.73 m2 F C Chem S Globulin (S) [Mass/Vol] 3.2 g/dL Normal 1.4 - 4.0 gm /dL [facility] Glucose [Mass/Vol] 84 mg/dL Normal 55 - 199 mg/dL [facility] Lactate [Mass/Vol] 0.5 mmol/L Normal 0.5 - 2.2 mmol/L [facility] Potassium [Moles/Vol] 3.6 mmol/L Normal 3.5 - 5.3 mmol /L [facility] Protein [Mass/Vol] 7.0 g/dL Normal 6.0 - 7.8 gm/dL [facility] Sodium [Moles/Vol] 138 mmol/L Normal 135 - 145 mmol/L [facility] Urea nitrogen [Mass/Vol] 17 mg/dL Normal 5 - 21 mg/d L [facility] Urea nitrogen/Creatinine [Mass ratio] 14 mg/mg Normal 10 - 20 [facility] CRPon 09-27-2022 CRP [Mass/Vol] 7.5 mg/dL High <=1.9 [facility] Comment on above: Performed By: #### 2 460009, 58595761, 4927612, 2947062, 7115006, 44767347, 6556738, 2270150 #### [facility] [address] [place] [address] Consent To Leave AMAon 09-27 Consent To Leave AMA [id number]:127 Normal [facility] Consent for Treatmenton Consent for Treatment [id number]:127 Normal [facility] Discharge Instructionson Discharge Instructions [id number]:127 Normal [facility] ED Clinical Summaryon 2022 ED Clinical Summary (Inserted Image. Zora ble to display) [place] [id number] ED Clinical Summary Person Information Name: GERRY VICTORIA [facility] Age: 67 Years : 1955 Sex: Female Language: Nigerien PCP: WARD ZUNIGA DO Marital Status: Visit Id: Visit Reason: Lower leg pain-swelling; ANKLE PAIN/SWELLING Speciality: Acuity: 3 Enc Type: Emergency Med Service: Emergency Arrival: 09/26/2022 22:52:57 Discharge: 09/27/2022 09:00:00 LOS: 000 10:08 Checkin: 09/26/2022 22:52:57 Checkout: 09/27/2022 09:00:00 Dispo Type: Home (Routine DC) EVENTS: Event Name Event Status Request Date/Time Start Date/Time Complete Date/Time Arrive Complete 09/26/2022 22:52:57 09/26/2022 22:52:57 09/26/2022 22:52:57 Document Home Meds Request 09/26/2022 22:52:57 Triage Complete 09/26/2022 22:52:57 09/26/2022 23:21:13 09/26/2022 23:21:13 Registration Complete 09/26/2022 22:57:10 09/26/2022 22:57:10 09/26/2022 22:57:10 Reg Complete Request 09/26/2022 22:57:10 Reg Bed Request Complete 09/26/2022 22:57:10 09/26/2022 22:57:10 09/26/2022 22:57:10 Dr Exam Complete 09/26/2022 22:58:58 09/26/2022 22:58:58 09/26/2022 22:58:58 Registration Complete 09/26/2022 22:58:58 09/26/2022 23:21:29 09/27/2022 07:09:14 Bed Assign Complete 09/26/2022 23:21:29 09/26/2022 23:21:29 09/26/2022 23:21:29 RN Exam Complete 09/26/2022 23:21:29 09/26/2022 23:24:47 09/26/2022 23:24:47 Dr Exam Complete 09/26/2022 23:42:07 09/26/2022 23:42:07 09/26/2022 23:42:07 Dr Exam Complete 09/26/2022 23:43:58 09/26/2022 23:43:58 09/26/2022 23:43:58 Meds Admin Complete 09/27/2022 00:54:55 09/27/2022 01:14:20 Pending Labs Inlab 09/27/2022 00:54:55 Lab Inlab 09/27/2022 00:54:55 Urine Collect Complete 09/27/2022 00:54:55 09/27/2022 05:32:44 Patient Care Request 09/27/2022 00:54:55 X-Ray Complete 09/27/2022 00:54:55 09/27/2022 00:58:57 09/27/2022 01:09:57 Wet Read Request 09/27/2022 01:09:57 Pending Labs Complete 09/27/2022 01:19:05 09/27/2022 01:19:05 09/27/2022 01:47:02 Lab Complete 09/27/2022 01:19:05 09/27/2022 01:19:05 09/27/2022 01:47:02 Pending Labs Complete 09/27/2022 01:24:00 09/27/2022 01:24:00 09/27/2022 01:24:09 Lab Complete 09/27/2022 01:24:00 09/27/2022 01:24:00 09/27/2022 01:24:09 Meds Admin Cancel 09/27/2022 02:03:39 09/27/2022 02:59:59 Meds Admin Complete 09/27/2022 03:03:30 09/27/2022 03:05:03 Consult Request 09/27/2022 03:21:23 Hospitalist Consult Request 09/27/2022 03:21:23 Meds Admin Request 09/27/2022 03:21:53 Bed Request Request 09/27/2022 03:23:12 Reg Bed Request Complete 09/27/2022 03:23:12 09/27/2022 07:09:14 09/27/2022 07:09:14 Admit Request 09/27/2022 03:23:12 Meds Admin Complete 09/27/2022 03:26:00 09/27/2022 03:33:50 Patient Care Request 09/27/2022 04:14:09 Meds Admin Request 09/27/2022 04:14:09 Pending Labs Inlab 09/27/2022 04:18:38 Lab Inlab 09/27/2022 04:18:38 Patient Care Request 09/27/2022 07:09:15 Patient Care Request 09/27/2022 07:09:15 Patient Care Request 09/27/2022 07:09:15 Patient Care Request 09/27/2022 07:09:16 Pending Labs Request 09/27/2022 08:06:30 Lab Request 09/27/2022 08:06:30 Consult Request 09/27/2022 08:06:52 Patient Care Request 09/27/2022 08:07:13 Pending Labs Request 09/27/2022 08:07:13 Lab Request 09/27/2022 08:07:13 Meds Admin Request 09/27/2022 08:09:05 Discharge Complete 09/27/2022 08:14:32 09/27/2022 11:03:38 09/27/2022 11:03:38 Transfer Complete 09/27/2022 11:03:38 09/27/2022 11:03:38 09/27/2022 11:03:38 ADDRESS: [address] [place] [id number] [facility] DOC NOTES: MEDICAL INFORMATION: Prescriptions Given: New Medications [facility] [id number], [address] [place] [id number], [phone] cephalexin (Keflex 500 mg Cap) 1 Capsules By Mouth 4 times a day for 7 Days. Refills: 0. doxycycline (doxycycline hyclate 100 mg Tab) 1 Tablets By Mouth every 12 hours for 7 Days. Refills: 0. Medications to Continue with No Changes Other Medications acetaminophen (acetaminophen 325 mg Tab) 2 Tablets By Mouth every 6 hours. acyclovir (acyclovir 400 mg Tab) 1 Tablets By Mouth once a day (at bedtime). amitriptyline (amitriptyline 50 mg Tab) 1 Tablets By Mouth once a day (at bedtime). fibromylagia. aspirin (aspirin 81 mg Oral EC Tab) 1 Tablets By Mouth every day. afib. atenolol (atenolol 50 mg Tab) 1 Tablets By Mouth every day. calcium carbonate (calcium (as carbonate) 600 mg oral tablet) 2 Tablets By Mouth every day. cholecalciferol (Vitamin D3 2000 intl units oral Tab) 50 Microgram By Mouth every day. diphenhydrAMINE (Benadryl 25 mg Tab) every day as needed as needed for allergy symptoms. docusate (docusate sodium 100 mg Cap) 2 Capsules By Mouth once a day (in the evening). escitalopram (Lexapro 10 mg Tab) 1 Tablets By Mouth every day. gabapentin (gabapentin 100 mg Cap) 2 Capsules By Mouth 2 times a day. lactobacillus acidophilus (Acidophilus Probiotic Blend) 1 Capsules By Mouth every day. levothyroxine (levothyroxine 150 mcg (0.15 mg) Tab) 1 Tablets By Mouth every day. multivitamin with minerals (Celebrate Multivi (more content not included)... Normal [facility] ED Note-Physicianon 09-28-19 ED Note-Physician Basic Information Time Seen: Bala SNOWDEN, Michelle Flores 09/26/2022 23:42 Chief Complaint pt to ED with c/o L lower leg swelling with weeping wounds to leg. pt denies hx of DM. states hx of L leg swelling that causes the skin to break and weep. swelling and clear weeping drainage noted in triage. denies fevers or chills. wounds covered. History of Present Illness This patient presents emergency department with chief complaint of worsening of her left lower extremity cellulitis. The patient states she was seen by the primary doctor, but they forgot to call in the prescription. She states she then went to the [facility] Urgent care clinic and she was prescribed medication. This was on 09/22/22 she states she has been compliant with her medication since then. The cellulitis has just continued to get worse. She states it is causing her a lot of discomfort. Review of Systems Constitutional: Denies weight loss, fevers, chills, sweats, malaise Eyes: Denies visual changes, eye pain, double vision, scotomas, floaters ENT: Denies runny nose, epistaxis, sinus pain, ear pain, ringing in ears, tooth ache, sore throat, pain with swallowing Cardiovascular: Denies chest pain, shortness of breath, orthopnea, edema, palpitations, loss of consciousness, claudication Respiratory: Denies cough, sputum production, wheezing, hemoptysis, shortness of breath, dyspnea on exertion Gastrointestinal: Denies abdominal pain, unintentional weight loss, difficulty swallowing, indigestion, bloating, cramping, loss of appetite, nausea, vomiting, diarrhea, constipation, hematochezia, melena Genitourinary: Denies any incontinence of urine, dysuria, hematuria, nocturia, polyuria, hesitancy, frequency, urgency, burning Musculoskeletal: Denies joint pain, morning stiffness, joint swelling, decreased range of motion, crepitus. + Left lower extremity cellulitis worsening Integumentary: Denies any pruritus, rashes, lesions, wounds, petechiae Neurologic: Denies any changes in sight, smell, hearing, taste, seizures, headache, paresthesia, numbness, weakness, balance disturbance Psychiatric denies any depression, change in sleep patterns, anxiety, difficulty concentrating, paranoia, anhedonia, lack of energy, alisa Hematologic/lymphatic: Denies any purpura, petechiae, excessive bleeding, bruising Physical Exam Vitals & Measurements T: 37.2 ?C(Oral) HR: 65(Peripheral) RR: 18 BP: 106/62 SpO2: 93% HT: 154 cm WT: 75.9 kg BMI: 32 Vital signs and nursing notes reviewed. General: Awake, alert, NAD. HEENT: Head is normocephalic, atraumatic. PERRL. EOMI. Sclerae are anicteric. External ears are normal. TMs are intact bilaterally. Canals are clear bilaterally. Nares are patent bilaterally. Oral mucosa is pink and moist. No lesions noted. Tongue protrudes in midline. Uvula rises with phonation. Neck is supple, no no palpable adenopathy. No JVD. Trachea is midline. Thorax: Symmetrical rise and fall Lungs: Clear to auscultation throughout all bautista, no wheezes, no crackles Heart: Regular rate and rhythm. No murmur, gallop, or rub Abdomen: No tenderness on palpation. Bowel sounds are present active and normal. No organomegaly. No palpable masses. No CVA tenderness. Extremities: Motor sensory pulses intact x4 extremities. On examination of the left lower extremity, the patient has erythema from the mid calf to the top of the foot, but not including the foot. Around the ankle, the erythema is circumferential. Is angry is looking at the lateral malleolus. There is no lymphangitic streaking. Patient does have multiple areas that are weeping. Skin: No lesions, rashes, ulcerations. No bruising or petechiae. Color appropriate, warm and dry Neuro: No oriented x3, no focal neuro deficits Psych: Mood and affect are normal Medical Decision Making MEDICAL DECISION MAKING Number and Complexity of Problems Differential Diagnosis: Worsening cellulitis on oral antibiotics, failed outpatient therapy, MDM Data External documents reviewed: Not applicable My EKG interpretation: Noted in chart if applicable My CT interpretation: Noted in chart if applicable My X-ray interpretation: Noted in chart if applicable My Ultrasound interpretation: Not applicable Decision rules/scores evaluated: Noted in chart if applicable Discussed with: Dr Padilla, hospitalist Treatment and Disposition ED Course: Patient was interviewed and examined. The appropriate ER work-up was initiated. An outline of the area of erythema has been drawn on the patient's left lower extremity. White blood count 16.45.9, hemoglobin 9.6, hematocrit 29.2, platelets of 249. On review of patient's prior labs, hemoglobin is stable compared to prior values. Sodium 138, potassium 3.6, chloride 101, CO2 29, BUN 17, creatinine 1.2, glucose 84, calcium 8.9. CRP is 7.5, lactate 0.5. ESR was within normal limits. The patient was given vancomycin IV piggyback. Given that patient has failed outpatient therapy, I discussed the case in its entirety with (more content not included)... Normal [facility] Comment on above: Result Comment: Elec tronically Signed By: Michelle Mckenna PA-C\.br\Date and Time Signed: 09/27/22 03:31 EDT\.br\Electronically Co-Signed By: Chintan Heller DO\.br\Date and Time Co-Signed: 09/27/22 06:10 EDT ED Patient Education Noteon 09-27-2022 ED Patient Education Note Infectious Disease Cellulitis, Adult Cellulitis is a skin infection. The infected area is often warm, red, swollen, and sore. It occurs most often in the arms and lower legs. It is very important to get treated for this condition. What are the causes? This condition is caused by bacteria. The bacteria enter through a break in the skin, such as a cut, burn, insect bite, open sore, or crack. What increases the risk? This condition is more likely to occur in people who: ? Have a weak body defense system (immune system). ? Have open cuts, frazier, bites, or scrapes on the skin. ? Are older than 60 years of age. ? Have a blood sugar problem (diabetes). ? Have a long-lasting (chronic) liver disease (cirrhosis) or kidney disease. ? Are very overweight (obese). ? Have a skin problem, such as: ? Itchy rash (eczema). ? Slow movement of blood in the veins (venous stasis). ? Fluid buildup below the skin (edema). ? Have been treated with high-energy rays (radiation). ? Use IV drugs. What are the signs or symptoms? Symptoms of this condition include: ? Skin that is: ? Red. ? Streaking. ? Spotting. ? Swollen. ? Sore or painful when you touch it. ? Warm. ? A fever. ? Chills. ? Blisters. How is this diagnosed? This condition is diagnosed based on: ? Medical history. ? Physical exam. ? Blood tests. ? Imaging tests. How is this treated? Treatment for this condition may include: ? Medicines to treat infections or allergies. ? Home care, such as: ? Rest. ? Placing cold or warm cloths (compresses) on the skin. ? Hospital care, if the condition is very bad. Follow these instructions at home: Medicines ? Take uwwb-xmp-intkgoj and prescription medicines only as told by your doctor. ? If you were prescribed an antibiotic medicine, take it as told by your doctor. Do not stop taking it even if you start to feel better. General instructions ? Drink enough fluid to keep your pee (urine) pale yellow. ? Do not touch or rub the infected area. ? Raise (elevate) the infected area above the level of your heart while you are sitting or lying down. ? Place cold or warm cloths on the area as told by your doctor. ? Keep all follow-up visits as told by your doctor. This is important. Contact a doctor if: ? You have a fever. ? You do not start to get better after 1?2 days of treatment. ? Your bone or joint under the infected area starts to hurt after the skin has healed. ? Your infection comes back. This can happen in the same area or another area. ? You have a swollen bump in the area. ? You have new symptoms. ? You feel ill and have muscle aches and pains. Get help right away if: ? Your symptoms get worse. ? You feel very sleepy. ? You throw up (vomit) or have watery poop (diarrhea) for a long time. ? You see red streaks coming from the area. ? Your red area gets larger. ? Your red area turns dark in color. These symptoms may represent a serious problem that is an emergency. Do not wait to see if the symptoms will go away. Get medical help right away. Call your local emergency services (911 in the [place] Do not drive yourself to the hospital. Summary ? Cellulitis is a skin infection. The area is often warm, red, swollen, and sore. ? This condition is treated with medicines, rest, and cold and warm cloths. ? Take all medicines only as told by your doctor. ? Tell your doctor if symptoms do not start to get better after 1?2 days of treatment. This information is not intended to replace advice given to you by your health care provider. Make sure you discuss any questions you have with your health care provider. Document Revised: 12/23/2021 Document Reviewed: 12/23/2021 Elsevier Patient Education ? 2022 [employer] Normal [facility] ED Patient Summaryon 023 ED Patient Summary [address] [address] Patient Discharge Instructions Person Information Name: GERRY VICTORIA Age: 67 Years Arrival Date: 09/26/2022 22:52:57 Discharge Diagnosis: 1:Cellulitis of leg; 2:CAD (coronary atherosclerotic disease); 3:RLS (restless legs syndrome); 4:Hypothyroid; 5:HLD (hyperlipidemia); 6:Depression; 7:On deep vein thrombosis (DVT) prophylaxis; Left against medical advice Primary Care Physician: WARD ZUNIGA DO Provider Information Primary Provider: Chintan Heller DO Advanced Flight Agent:None The exam and treatment you received in the Emergency Department were for an urgent problem and are not intended as complete care. It is important that you follow up with a doctor, nurse practitioner, or physician?s credentialing assistant for ongoing care. If your symptoms become worse or you do not improve as expected and you are unable to reach your usual health care provider, you should return to the Emergency Department. We are available 24 hours a day. GERRY VICTORIA has been given the following list of patient education materials, prescriptions and follow-up instructions: Follow-up Instructions: With: Address: When: WARD ZUNIGA [address] [facility] [address] [place], [place] [id number] In 3 days 09/30/2022 In the event that this physician does not participate in your insurance network, please consult with your insurance company to find a nearby participating provider. Patient Education Materials: Cellulitis, Adult, Cxwh-if-Mclf A MESSAGE TO ALL PATIENTS REGARDING OPIOIDS PRESCRIPTION OPIOIDS: WHAT YOU NEED TO KNOW Prescription opioids can be used to help relieve wqzujlps-ho-wtvzco pain and are often prescribed following a surgery or injury, or for certain health conditions. These medications can be an important part of the treatment but also come with serious risks. It is important to work with your healthcare provider to make sure you are getting the safest, most effective care. WHAT ARE THE RISKS AND SIDE EFFECTS OF OPIOID USE? Prescription opioids carry serious risks of addiction and overdose, especially with prolonged use. An opioid overdose, often marked by slowed breathing, can cause sudden . The use of prescription opioids can have a number of side effects as well, even when taken as directed: ? Tolerance?meaning you might need to take more of the medication for the same pain relief ? Physical dependence?meaning you have symptoms of withdrawal when a medication is stopped ? Increased sensitivity to pain ? Constipation ? Nausea, vomiting, and dry mouth ? Sleepiness and dizziness ? Confusion ? Depression ? Low levels of testosterone that can result in lower sex drive, energy, and strength ? Itching and sweating RISKS ARE GREATER WITH: ? History of drug misuse, substance use disorder, or overdose ? Mental health conditions (such as depression or anxiety) ? Sleep apnea ? Older age (65 years and older) ? Avoid alcohol while taking prescription opioids. Also, unless specifically advised by your health care provider, medications to avoid include: ? Benzodiazepines (such as Xanax or Valium) ? Muscle relaxants (such as Soma or Flexeril) ? Hypnotics (such as Ambien or Lunesta) ? Other prescription opioids KNOW YOUR OPTIONS Talk to your health care provider about ways to manage your pain that don?t involve prescription opioids. Some of these options may actually work better and have fewer risks and side effects. Options may include: ? Pain relievers such as acetaminophen, ibuprofen, and naproxen ? Some medication that are also used for depression or seizures ? Physical therapy and exercise ? Cognitive behavioral therapy, a psychological, goal-directed approach, in which patients learn how to modify physical, behavioral, and emotional triggers of pain and stress. IF YOU ARE PRESCRIBED OPIOIDS FOR PAIN: ? Never take opioids in greater amounts or more often than prescribed. ? Follow up with your primary health care provider. o Work together to create a plan on how to manage your pain. o Talk about ways to help manage your pain that don?t involve prescription opioids. o Talk about any and all concerns and side effects. ? Help prevent misuse and abuse o Never sell or share prescription opioids. o Never use another person?s prescription opioids. ? Store prescription opioids in a secure place and out of reach of others (this may include visitors, children, friends, and family). ? Safely dispose of unused prescription opioids: Find your community drug take-back program or your pharmacy mail-back program, or flush them down the toilet, following guidance from the Food and Drug Administration (www.fda.gov/Drugs/ResourcesForYou). ? Visit www.cdc.gov/drugoverdose to learn about the risks of opioids abuse and overdose. ? If you belie (more content not included)... Normal [facility] HEMATOLOGYOrdered By: SYSTEM SYSTEM on 09-27-2022 Basophils/100 WBC (Bld) 1.0 % Normal 0.0 - 2.0 % [facility] HemeAutoSS Basophils/Leukocytes Auto (B ld) [Pure # fraction] 0.1 E9/L Normal 0.0 - 0.2 E9/L [facility]eAutoSS Eosinophils/100 WBC (Bld) 8.4 % High 0.0 - 8.0 % [facility]eAutoSS Eosinophils/Leukocytes Auto (Bld) [Pure # fraction] 0.5 E9/L Normal 0.0 - 0.5 E9/L [facility] HemeAutoS S Lymphocytes/100 WBC (Bld) 18.0 % Normal 14.0 - 50. 0 % [facility] HemeAutoSS Lymphocytes/Leukocytes Auto (Bld) [Pure # fraction] 1.1 E9/L Normal 1.0 - 4.0 E9/L [facility] HemeAutoS S Monocytes/100 WBC (Bld) 11.2 % Normal 4.0 - 14.0 % [facility] HemeAutoSS Monocytes/Leukocytes Auto (B ld) [Pure # fraction] 0.7 E9/L Normal 0.2 - 1.0 E9/L [facility]eAutoSS Neutrophils/100 WBC (Bld) 61.4 % Normal 36.0 - 75. 0 % [facility] HemeAutoSS Neutrophils/Leukocytes Auto (Bld) [Pure # fraction] 3.6 E9/L Normal 2.0 - 7.5 E9/L [facility] HemeAutoS S HEMATOLOGYOrdered By: Jaylaniso n Myles on 09-27-2022 Erythrocyte distribution wid th (RBC) [Ratio] 15.9 % High 10.9 - 14.2 % [facility]eAuto[facility] Hematocrit (Bld) [Volume fraction] 29.2 % Low 34.0 - 46.0 % [facility]eAuto[facility] Hemoglobin (Bld) [Mass/Vol] 9.6 g/dL Low 12.0 - 1 6.0 gm/dL [facility]eAuto[facility] MCH (RBC) [Entitic mass] 26.4 pg Low 27.0 - 34.0 pg [facility]eAutoSS MCHC (RBC) [Mass/Vol] 33.0 g/dL Normal 31.4 - 36.0 gm /dL [facility] HemeAutoSS MCV (RBC) [Entitic vol] 79.9 fL Low 80.0 - 100.0 fL [facility] HemeAutoSS Platelet mean volume (Bld) [Entitic vol] 7.9 fL Normal 6.4 - 10.8 fL [facility]eAuto[facility] Platelets (Bld) [#/Vol] 249.0 E9/L Normal 150.0 - 500. 0 E9/L [facility] RBC (Bld) [#/Vol] 3.7 E12/L Low 4.3 - 5.9 E12/L [facility] Sed Rate Automated 25 mm/h Normal 0 - 34 mm/hr [facility] HemeAutoSS WBC corrected for nucl RBC A uto (Bld) [#/Vol] 5.9 E9/L Normal 4.0 - 11.0 E9/L [facility] Hep Func Panelon 09-27-2022 Albumin [Mass/Vol] 3.8 g/dL Normal 3.3-5.0 [facility] Comment on above: Performed By: #### 2 398502, [id number], 5604929, 3160142, 0893180, 55163966, 2387495, 1214408 ####[facility] [address] [place] [address] Albumin/Globulin (S) [Mass conc ratio] 1.2 Normal 1.1-2.2 [facility] Comment on above: Performed By: #### 2 387242, 02552160, 1657673, 7155052, 3215448, 26949355, 0865693, 8923934 ####[facility] [address] [place] [address] ALP [Catalytic activity/Vol] 79 Int._Unit/L Normal 21- 98 [facility] Comment on above: Performed By: #### 2 974860, 83019166, 2673937, 1915781, 0957831, 02478648, 6481249, 0075053 ####[facility] [address] [place] [address] ALT No additional P-5'-P [Catalytic activity/Vol] 11 Int._Unit/L Normal 6-46 [facility] Comment on above: Performed By: #### 2 901806, 39456496, 5514073, 5146184, 6766568, 60259633, 6896768, 3118179 ####[facility] [address] [place] [address] AST [Catalytic activity/Vol] 19 Int._Unit/L Normal 5-4 3 [facility] Comment on above: Performed By: #### 2 973860, 45148022, 1463478, 3571515, 1878240, 39395830, 6747031, 6387065 ####[facility] [address] [place] [address] Bilirubin [Mass/Vol] 0.6 mg/dL Normal 0.0-1.1 [facility] Comment on above: Performed By: #### 2 666300, 83814040, 5721559, 1044157, 1818249, 79338487, 2405346, 4309751 ####[facility] [address] [place] [address] Bilirubin.direct [Mass/Vol] 0.1 mg/dL Normal 0.1-0.4 [facility] Comment on above: Performed By: #### 2 830331, 58020757, 0802116, 8253667, 7977326, 12187462, 5685731, 9564939 ####[facility] [address] [place] [address] Bilirubin.indirect [Mass or moles/Vol] 0.5 mg/dL Normal 0.1-0.9 [facility] Comment on above: Performed By: #### 2 144995, 74127935, 2807379, 3467870, 7784244, 12569177, 9438624, 5509552 ####[facility] [address] [place] [address] Globulin (S) [Mass/Vol] 3.2 g/dL Normal 1.4-4.0 F [facility] Comment on above: Performed By: #### 2 221174, 17072867, 6036637, 8203940, 1648237, 21912042, 6942979, 9731515 ####[facility] [address] [place] [address] Protein [Mass/Vol] 7.0 g/dL Normal 6.0-7.8 [facility] Comment on above: Performed By: #### 2 167378, 02018584, 6421806, 6839058, 7006786, 54541806, 2386858, 5269595 ####[facility] [address] [place] [address] Lactic Acidon 09-27-2022 Lactate [Mass/Vol] 0.5 mmol/L Normal 0.5-2.2 [facility] Comment on above: Performed By: #### 2 004560, 64636545, 6199385, 8522549, 7543733, 31861439, 2881808, 3308336 #### [facility] [address] [place] [address] Sed Rate Automatedon 023 Sed Rate Automated 25 mm/hr Normal 0-34 [facility] Comment on above: Performed By: #### 2 111972, 97510995, 2961519, 5229127, 3847740, 32022899, 8801217, 8036593 #### [facility] [address] [place] [address] UA With Cult Reflexon 2022 Bilirubin Ql (U) Negative Normal Negative [facility] Comment on above: Performed By: #### 1 4703296 ####[facility] [address] [place] [address] Clarity (U) SL CLOUDY Invalid Interpretation Code [facility] Comment on above: Performed By: #### 1 3958590 ####[facility] [address] [place] [address] Color (U) YELLOW Normal Yellow [facility] Comment on above: Performed By: #### 1 4960700 ####[facility] [address] [place] [address] Epithelial cells.squamous LM .HPF (Urine sed) [#/Area] /[HPF] Normal 0-2 [facility] Comment on above: Performed By: #### 1 4377636 ####[facility] [address] [place] [address] Glucose Test strip (U) [Mass/Vol] Negative Normal Negative [facility] Comment on above: Performed By: #### 1 1244935 ####[facility] [address] [place] [address] Hemoglobin Ql (U) Negative Normal Negative [facility] Comment on above: Performed By: #### 1 8481347 ####[facility] [address] [place] [address] Ketones (U) [Mass/Vol] Negative Normal Negative [facility] Comment on above: Performed By: #### 1 9517328 ####[facility] [address] [place] [address] [place].plasma/[place].RBC (Bld) [Mass ratio] 0-3 N ormal 0-3 [facility] Comment on above: Performed By: #### 1 1921223 ####[facility] [address] [place] [address] Mucus Ql (Urine sed) TRACE Normal Fish [facility] Comment on above: Performed By: #### 1 6444267 ####[facility] [address] [place] [address] Nitrite Ql (U) Negative Normal Negative [facility] Comment on above: Performed By: #### 1 7804970 ####[facility] [address] [place] [address] pH (U) 6.0 [pH] Invalid Interpretation Code 5.0-9.0 [facility] Comment on above: Performed By: #### 1 6532012 ####[facility] [address] [place] [address] Protein (U) [Mass/Vol] Negative Normal Negative Fi [facility] Comment on above: Performed By: #### 1 3538924 ####[place] [address] Specific gravity (U) [Rel density] 1.010 Invalid Interpretation Code 1.005-1.030 Fish er [facility] Comment on above: Performed By: #### 1 3697949 ####[place] [address] Type of Urine collection method Clean Catch Normal [facility] Comment on above: Performed By: #### 1 5241750 ####[place] [address] Urobilinogen Qn (U) 0.2 {Olivia'U}/dL Normal 0.0-1.0 [facility] Comment on above: Performed By: #### 1 6592002 ####[place] [address]757 WBC Auto Ql (U) TRACE Abnormal Negative [facility] Comment on above: Performed By: #### 1 5586244 ####[address] [address] WBC LM.HPF (Urine sed) [#/Area] 0-5 Normal 0-5 [facility] Comment on above: Performed By: #### 1 7303211 ####[place] [address] URINALYSISOrdered By: Liz Bueno on 09-27-2022 Bilirubin Ql (U) Negative (09/27/22 4:48 AM) Normal Negative [facility]A Auto SS Clarity (U) SL CLOUDY Invalid Interpre tation Code [facility]A Auto SS Color (U) Yellow (09/27/22 4:48 AM) Normal Yellow [facility]A Auto SS Epithelial cells.squamous LM.HPF (Urine sed) [#/Area] /[HPF] Normal 0-2/HPF [facility]A Auto SS Glucose Test strip (U) [Mass/Vol] Negative (09/27/22 4:48 AM) Normal Negative [facility] UA Auto SS Hemoglobin Ql (U) Negative (09/27/22 4:48 AM) Normal Negative [facility] UA Auto SS Ketones (U) [Mass/Vol] Negative (09/27/22 4:48 AM) Normal Negative [facility] UA Auto SS [place].plasma/[place] um.RBC (Bld) [Mass ratio] 0-3 /HPF Normal 0-3/HPF [facility] UA Auto SS Mucus Ql (Urine sed) Trace (09/27/22 4:48 AM) Normal [facility] UA Auto SS Nitrite Ql (U) Negative (09/27/22 4:48 AM) Normal Negative [facility] UA Auto SS pH (U) 6.0 *NA* (09/27/22 4:48 AM) Invalid Interpretation Code 5.0 - 9.0 [facility]A Auto SS Protein (U) [Mass/Vol] Negative (09/27/22 4:48 AM) Normal Negative [facility] UA Auto SS Specific gravity (U) [Rel density] 1.010 *NA* (09/27/22 4:48 AM) Invalid Interpretation Code 1.005 - 1.030 [facility] UA Auto SS UA Spec Desc Clean Catch (09/27/22 4:48 AM) Normal [facility] UA Auto SS Urobilinogen Qn (U) 0.0051692 {Olivia'U}/dL Normal 0.0 - 1.0 EU/dL [facility]A Auto SS WBC Auto Ql (U) Trace *ABN* (09/27/22 4:48 AM) Invalid Interpretation Code Negative [facility]A Auto SS WBC LM.HPF (Urine sed) [#/Area] 0-5 /HPF Normal 0-5/HPF [facility] UA Auto SS XR Ankle 3+ Views Lefton XR Ankle 3+ Views Left Exam Date/Time: 09/27/2022 01:09 EDT Reason for Exam: Other (please specify) Report IMPRESSION: NO EVIDENCE OF A FRACTURE OR OTHER BONE ABNORMALITY IN THE LEFT ANKLE. CLINICAL HISTORY: COMPARISON: None available. FINDINGS: AP, lateral and oblique views of the left ankle demonstrates no fracture, dislocation or other bone abnormality. There are enthesophytes of the insertion of Achilles tendon and there is a small plantar calcaneal spur. Ordering Provider: Skalsky, Michelle FINAL REPORT Dictated: 09/27/2022 8:51 am Kelvin Burris MD, V. Signed (Electronic Signature): 09/27/2022 8:51 am Signed by: Kelvin Burris MD, V. Transcribed by: JANNETH Technologist: BRANDIN Technical Comments Radiation Dose: Ka,r in mGy = na DAP = na Normal [facility] eGFRon 09-27-2022 GFR/1.73 sq M.predicted anthony g non-blacks MDRD (S/P/Bld) [Vol rate/Area] 49 mL/min/1.73 m2 Low >=59 [facility] Comment on above: Order Comment: Order added by Discern Expert. Result Comment: College Tutor heidi kidney disease could be indicated at eGFR's of less than 60 mL/min/1.73m2. Kidney failure is indicated at less than 15 mL/min/1.73m2. Performed By: #### 2 611248, 24559151, 4281805, 0343075, 8323819, 89700486, 9238466, 1492080 ####[facility] [address] [place] [address] Pre-Certification Formon Pre-Certification Form PT SCHEDULED W/ D R.MCBRIDE FOR LAP MERLYN ON 07/26/22 PARAMOUNT PRIMARY AND ACTIVE NPCR PER WINONA CODE CORDUROY BRUSHER OPERATOR (20269) DX PASSES MEDNESC Normal [facility] Free T4 (Free Thyroxine)on 0 09-06-2022 Free T4 [Mass/Vol] 0.30 ng/dL Low 0.61-1.12 [facility] Comment on above: Performed By: #### H EPATIC, LIPASE, CBC, BMP #### [facility] [address] [place] [address] [facility] Thyroid Stimulating Hormoneo n 09-06-2022 TSH Qn 14.86 m[IU]/L High 0.45-5.33 [facility] Comment on above: Result Comment: PERF ORMED BY: [facility] [address] [place] [address] PATHOLOGIST MIGRATION AGENT WILDER BOTELLO M.D. Performed By: #### H EPATIC, LIPASE, CBC, BMP #### [facility] [address] [place] [id number] [facility] Thyrotropin [Units/volume] i n Serum or PlasmaOrdered By: Ward Zuniga on 09-06-2022 TSH Qn 14.86 m[IU]/L 0.45-5.33 [facility] Thyroxine (T4) free [Mass/vo lume] in Serum or PlasmaOrdered By: Ward Zuniga on 09-06-2022 Free T4 [Mass/Vol] 0.30 ng/dL 0.61-1.12 [facility] Triiodothyronine (T3) Freeon 09-06-2022 Triiodothyronine (T3) Free 2.19 pg/mL Low 2.50-3.90 [facility] Comment on above: Result Comment: PERF ORMED BY: [facility] [address] [facility] [place] [address] PATHOLOGIST MIGRATION AGENT WILDER BOTELLO M.D. Performed By: #### H EPATIC, LIPASE, CBC, BMP #### [facility] [address] [place] [id number] [facility] Triiodothyronine (T3) Free [ Mass/volume] in Serum or PlasmaOrdered By: Ward Zuniga on 09-06-2022 Free T3 [Mass/Vol] 2.19 pg/mL 2.50-3.90 [facility] Coding Summary.on 08-02-2022 Coding Summary. CD:[id number] [file] [id number] (more content not included)... Normal [facility] IntraOperative Documentson 0 07-29-2022 IntraOperative Documents [id number]#1.00CD:127 Normal [facility] Postoperative Documentson Postoperative Documents [id number]#1.00CD:127 Normal [place] [facility] Main OR Intraoperative Recor don 07-28-2022 Main OR Intraoperative Record IntraOp Document Type FT Summary Primary Physician: Talon Mcbride DO Finalized Date/Time: 07/28/22 08:06:27 Pt. Name: GERRY VICTORIA Maryann ShawB./Sex: 1955 Female Med Rec #: [id number] Physician: Talon Mcbride DO Financial #: [id number] Pt. Type: A Room/Bed: [place] [address] Admit/Disch: 07/26/22 05:37:39 - 07/26/22 14:50:00 Institution: Case Times FT Entry 1 Patient Times In Room 07/26/22 08:22:00 Out Room 07/26/22 11:45:00 Procedure Times Start 07/26/22 08:51:00 Stop 07/26/22 11:37:00 Anesthesia Times Start 07/26/22 08:22:00 Stop 07/26/22 11:45:00 Last Modified By: Karson BACON, Umu Weber 07/26/22 11:45:16 General Comments: 07/28/22 Chart opened to review and send charges LRoth CSFA Case Attendance FT Entry 1 Entry 2 Entry 3 Case Attendee Deppen Jenaa MENDES DO, William Taylor Waite PA-C, Kristen N Role Performed CANOPY INSPECTOR Surgeon - Primary PA/PUMPMAN Time In 07/26/22 08:22:00 07/26/22 08:22:00 07/26/22 08:22:00 Time Out 07/26/22 11:45:00 07/26/22 11:45:00 07/26/22 11:45:00 Procedure CHOLECYSTECTOMY CHOLECYSTECTOMY CHOLECYSTECTOMY LAPAROSCOPIC W/ LAPAROSCOPIC W/ LAPAROSCOPIC W/ CHOLANGI(.) CHOLANGI(.) CHOLANGI(.) Comments dr winston supervising Last Modified By: Karson BACON, Umu Ty RN, Umu Orozco RN 07/26/22 11:54:21 07/26/22 11:54:21 07/26/22 11:54:21 Entry 4 Entry 5 Entry 6 Case Attendee Karson BACON, Belkys Andrade Ii, Sarah M Role Performed Insurance Adjuster - Primary Staff - Other Scrub - Primary Time In 07/26/22 08:22:00 07/26/22 08:22:00 07/26/22 08:22:00 Time Out 07/26/22 11:45:00 07/26/22 11:45:00 07/26/22 11:45:00 Procedure CHOLECYSTECTOMY CHOLECYSTECTOMY CHOLECYSTECTOMY LAPAROSCOPIC W/ LAPAROSCOPIC W/ LAPAROSCOPIC W/ CHOLANGI(.) CHOLANGI(.) CHOLANGI(.) Comments ORIENTATION RENETTA PANIAGUA PIECE DYE WORKER STUDENT, ALSO SCRUBBED IN Last Modified By: Karson RN, Umu Ty RN, Umu Ty RN, Umu Weber 07/26/22 11:54:21 07/26/22 11:54:21 07/26/22 11:54:21 Entry 7 Entry 8 Entry 9 Case Attendee Daphney RN, Ivet Newton RN, Jess Foley RT(R), Mamta Valles Role Performed Insurance Adjuster - Relief Insurance Adjuster - Relief Ccnp Time In 07/26/22 09:08:00 07/26/22 09:08:00 07/26/22 10:45:00 Time Out 07/26/22 09:31:00 07/26/22 09:31:00 07/26/22 11:45:00 Procedure CHOLECYSTECTOMY CHOLECYSTECTOMY CHOLECYSTECTOMY LAPAROSCOPIC W/ LAPAROSCOPIC W/ LAPAROSCOPIC W/ CHOLANGI(.) CHOLANGI(.) CHOLANGI(.) Comments RN break relief. RN break relief. Preceptor Orientation. Last Modified By: Karson RN, Umu Ty RN, Umu Ty RN, Umu Weber 07/26/22 11:54:21 07/26/22 11:54:21 07/26/22 11:54:21 General Comments: SANGITA CAMILO, ALSO IN ATTENDANCE. JORDI NEALsolutions market consultant Protocols FT Pre-Care Text: Implements protective measures prior to operative or invasive procedure, confirms identity before the operative or invasive procedure, verifies operative procedure, surgical site, and laterality Entry 1 Procedure(s) CHOLECYSTECTOMY Patient Identity Birthday, ID Band LAPAROSCOPIC W/ Verified (select at Check, Patient CHOLANGI(.) least 2): Participation Consents / H and P Anesthesia Consent, Operative Site N/A Verified HandP, Surgery/Procedure Marking Verified Consent Surgical Site Yes Laterality Verified n/a Verified Procedure Verified Yes Correct Patient Yes Position Verified Availability Equipment, Medication, Prep Dry n/a Verified (If X-ray Applicable) PreOp Antibiotic Yes Time Out Jeana Villanueva CRNA, Given Participants Talon Mcbride DO, Waite PA-C, Kristen N, Crosby RN, Alicia Marinelli Alfons Ii F, Juliana Delgado Time Out Complete 07/26/22 08:50:00 Outcomes Met? Yes Last Modified By: Umu Ty RN 07/26/22 08:57:48 Post-Care Text: The patient is free from signs and symptoms of injury caused by extraneous objects Allergy Information FT Pre-Care Text: Verifies allergies Entry 1 Allergies Reviewed? Yes Allergies Reviewed Self/Patient With Outcomes Met? Yes Last Modified By: Umu Ty RN 07/26/22 07:31:33 Post-Care Text: The patient received appropriate medication(s) safely administered during the perioperative period Surgical Procedures FT Entry 1 Procedure Description Procedure CHOLECYSTECTOMY Modifiers . LAPAROSCOPIC W/ CHOLANGIOGRAM Surgeon Description LAPROSCOPIC CHOLECYSTECTOMY WITH CHOLANGIOGRAM Primary Procedure Yes Primary Surgeon Talon Mcbride DO Start 07/26/22 08:51:00 Stop 07/26/22 11:37:00 Anesthesia Type General Surgical Service General Wound Class 2 - Clean-Contaminated Last Modified By: Umu Ty RN 07/26/22 11:54:28 General Case Data FT Pre-Care Text: Classifies surgical wound, implements aseptic technique, initiates traffic control Entry 1 Case Information OR OR 2 FT Case Level Level 3 Wound Class 2 - Clean-Contaminated Specialty General ASA Class 3 Preop Diagnosis C (more content not included)... Normal [facility] XR Cholangiogram in ORon XR Cholangiogram in OR Exam Date/Time: 07/26/2022 12:24 EDT Reason for Exam: Gallbladder disease Report IMPRESSION: NO IMAGES RECORDED. CLINICAL HISTORY: Gallbladder disease. COMMENT: Fluoroscopy was utilized during the procedure by Dr. Mcbride who did not request images saved. The radiation dose is 17.37 mGy. Ordering Provider: Talon Mcbride FINAL REPORT Dictated: 07/28/2022 1:08 pm Talon Tyson M.D. Signed (Electronic Signature): 07/28/2022 1:08 pm Signed by: Talon Tyson M.D. Transcribed by: JANNETH Technologist: PAULINE Technical Comments Radiation Dose: [place] in mGy = 17.37 DAP = na Normal [facility] Blood Bank Slipon 07-27-2022 Blood Bank Slip [id number]#1.00CD:127 Normal [facility] Consent for Anesthesiaon Consent for Anesthesia [id number]#1.00CD:127 Normal [facility] Discharge Instructionson Discharge Instructions [id number]#1.00CD:127 Normal [facility] IntraOperative Documentson 0 07-27-2022 IntraOperative Documents [id number]#1.00CD:127 Normal [facility] Preoperative Documentson Preoperative Documents [id number]#1.00CD:127 Normal [facility] ABO/Rhon 07-26-2022 ABO/Rh Positive Invalid Interpretation Code [facility] Comment on above: Performed By: #### 1 [id number] #### [facility] [address] [place] [address] ABO/Rh History Checkon 07-26 ABO/Rh History Check Verified Hx Blood Type Normal [facility] Comment on above: Performed By: #### 1 [id number] #### [facility] [address] [place] [address] ABSCon 07-26-2022 ABSC Gel Interp Negative Normal [facility] Comment on above: Performed By: #### 1 [id number] #### [facility] [address] [place] [address] BLOOD BANKOrdered By: Dell Taylor on 07-26-2022 ABO/Rh Interp Positive Invalid Interpretation [place] [facility] [place] Subsection ABSC Gel Interp Negative (07/26/22 6:23 AM) Normal [facility] [place] Subsection Blood Bank ID#on 07-26-2022 BBID# [id number] Invalid Interpretation Code [facility] Comment on above: Performed By: #### 1 [id number] #### [facility] [address] [place] [address] Consent for Procedure/Surger yon 07-26-2022 Consent for Procedure/Surgery [id number]:127 Normal [facility] Consent for Treatmenton Consent for Treatment [id number]:127 Normal [facility] Discharge Instructionson Discharge Instructions LUCIAPUJADIONVALDEMAR Wolf :1955 Visit Date:07/26/2022 Inpatient Discharge Instructions Your Care Team Admitting Physician - Talon Mcbride DO Referring Physician - Talon Mcbride DO Reason for Your Visit CHOLELITHIASIS Your Diagnosis Cholelithiases Chronic cholecystitis Tests Performed ABO/Rh Antibody Screen Hemoglobin and Hematocrit XR Cholangiogram in [place] -- Results Pending -- Please visit your patient portal for your results or contact your primary care physician. This Is Your Medications List acetaminophen (acetaminophen 325 mg Tab) acyclovir (acyclovir 400 mg Tab) amitriptyline (amitriptyline 50 mg Tab) aspirin (aspirin 81 mg Oral EC Tab) atenolol (atenolol 50 mg Tab) calcium carbonate (calcium (as carbonate) 600 mg oral tablet) cholecalciferol (Vitamin D3 2000 intl units oral Tab) diphenhydrAMINE (Benadryl 25 mg Tab) docusate (docusate sodium 100 mg Cap) escitalopram (Lexapro 10 mg Tab) gabapentin (gabapentin 100 mg Cap) lactobacillus acidophilus (Acidophilus Probiotic Blend) levothyroxine (levothyroxine 150 mcg (0.15 mg) Tab) multivitamin with minerals (Celebrate Multivitamin) omeprazole (omeprazole 20 mg Cap-DR) oxybutynin (oxybutynin 10 mg ER Tab) oxycodone (oxyCODONE 5 mg Tab) psyllium (Metamucil 525 mg oral capsule) ropinirole (Requip 2 mg Tab) tramadol Procedure History Injection of sacroiliac joint using fluoroscopic guidance (02/15/2021), Vein (10/16/2020), Release of trigger finger (06/29/2017), Total knee replacement (05/30/2016), Right ring trigger finger release (05/02/2016), Colonoscopy, Drainage biliary catheter, History of hysterectomy, Replacement of right knee joint. What to do next Instructions From Your Doctor Event Name Event Result Pending Diagnostic Test Results Biopsy/pathology Pharmacy Information Octavia Valadez Previously Scheduled Follow-Up Appointments Monday 11:00 AM EDT With: Where[facility] 2022 1:00 PM EDT With: MARYCARMNE NAVA PA-C Where: [facility] Comment on above: Result Comment: Elec tronically Signed By: Mili BACON, Robina Wolf\.br\Date and Time Signed: 07/26/22 13:15 EDT H&P Updateon 07-26-2022 H&P Update [id number] D:127 [facility] HEMATOLOGYOrdered By: Lucero Ramirez on 07-26-2022 Hematocrit (Bld) [Volume fraction] 31.8 % Low 3 4.0 - 46.0 % [facility] [place] HemeAutoSS Hemoglobin (Bld) [Mass/Vol] 10.1 g/dL Low 12.0 - 1 6.0 gm/dL [facility] [place] HemeAutoSS Hct & Hgbon 07-26-2022 Hematocrit (Bld) [Volume fraction] 31.8 % Low 3 4.0-46.0 [facility] Comment on above: Performed By: #### 1 [id number] #### [facility] [address] [place] [address] Hemoglobin (Bld) [Mass/Vol] 10.1 g/dL Low 12.0-16. 0 [facility] Comment on above: Performed By: #### 1 [id number] #### [facility] [address] [place] [address] Main OR PACU I Recordon Main OR PACU I Record PACU Phase I Docum ent Type FT Summary Primary Physician: Talon Mcbride DO Finalized Date/Time: 07/26/22 12:58:56 Pt. Name: GERRY VICTORIA/Sex: 1955 Female Med Rec #: [id number] Physician: Talon Mcbride DO Financial #: [id number] Pt. Type: A Room/Bed: [place] [address] Admit/Disch: 07/26/22 05:37:39 - Institution: Case Times PACU I FT Pre-Care Text: Identifies barriers to communication and implements measures to provide psychological support Develops individualized plan of care, and ensures continuity of care Maintains patient's dignity and privacy, and maintains patient confidentiality Identifies and reports philosophical, cultural, and spiritual beliefs and values Identifies individual values and wishes concerning care Implements aseptic technique, and administers prescribed antibiotic therapy and immunizing agents as ordered Evaluates postoperative tissue perfusion Implements thermoregulation measures, and monitors body temperature Evaluates postoperative respiratory status Evaluates postoperative cardiac status Evaluates postoperative neurological status Assesses pain control, collaborated in initiating patient-controlled analgesia and implements alternative methods of pain control Verifies allergies, administers prescribed medications and solutions, evaluates response to medications Entry 1 In PACU I 07/26/22 11:46:00 Discharge from PACU 07/26/22 12:48:00 I Outcomes Met? Yes Last Modified By: Violette Castillo I 07/26/22 12:58:33 Post-Care Text: The patient demonstrates knowledge of the expected response to the operative or invasive procedure The patient's care is consistent with the individualized perioperative plan of care The patient's right to privacy is maintained The patient's value system, lifestyle, ethnicity, and culture are considered, respected, and incorporated into the perioperative plan of care The patient participates in decisions affecting his or her perioperative plan of care The patient is free from signs and symptoms of infection The patient has wound/tissue perfusion consistent with or improved from baseline levels established preoperatively The patient is at or returning to normothermia at the conclusion of the immediate postoperative period The patient's respiratory function is consistent with or improved from baseline levels established preoperatively The patient's cardiovascular status is consistent with or improved from baseline levels established preoperatively The patient's cardiovascular status is consistent with or improved from baseline levels established preoperatively The patient demonstrates and/or reports adequate pain control throughout the perioperative period The patient received appropriate medication(s), safely administered during the perioperative period Acuity Level PACU I FT Entry 1 Start Time 07/26/22 11:46:00 Stop Time 07/26/22 12:48:00 Acuity Level Acuity Level I Last Modified By: Violette Castillo I 07/26/22 12:58:52 Finalized By: Violette Castillo I Document Signatures Signed By: Violette Castillo I 07/26/22 12:58 [facility] Main OR PACU II Recordon Main OR PACU II Record PACU Phase II Document Type FT Summary Primary Physician: Talon Mcbride DO Finalized Date/Time: 07/26/22 15:08:15 Pt. Name: GERRY VICTORIA Maryann ShawB./Sex: 1955 Female Med Rec #: [id number] Physician: Talon Mcbride DO Financial #: [id number] Pt. Type: A Room/Bed: [place] [address] Admit/Disch: 07/26/22 05:37:39 - 07/26/22 14:50:00 Institution: Case Times PACU II FT Pre-Care Text: Identifies barriers to communication and implements measures to provide psychological support and determines knowledge level Develops individualized plan of care, and ensures continuity of care Maintains patient's dignity and privacy, and maintains patient confidentiality Identifies and reports philosophical, cultural, and spiritual beliefs and values Identifies individual values and wishes concerning care administers prescribed antibiotic therapy and immunizing agents as ordered, Evaluates postoperative tissue perfusion Implements thermoregulation measures, and monitors body temperature Evaluates postoperative respiratory status Evaluates postoperative cardiac status Evaluates postoperative neurological status Assesses pain control, collaborated in initiating patient-controlled analgesia and implements alternative methods of pain control Verifies allergies, administers prescribed medications and solutions, evaluates response to medications Entry 1 In PACU II 07/26/22 12:50:00 Discharge from PACU 07/26/22 14:50:00 II Outcomes Met? Yes Last Modified By: Robina Garces RN 07/26/22 15:08:13 Post-Care Text: The patient demonstrates knowledge of the expected response to the operative or invasive procedure The patient's care is consistent with the individualized perioperative plan of care The patient's right to privacy is maintained The patient's value system, lifestyle, ethnicity, and culture are considered, respected, and incorporated into the perioperative plan of care The patient participates in decisions affecting his or her perioperative plan of care. The patient is free from signs and symptoms of infection The patient has wound/tissue perfusion consistent with or improved from baseline levels established preoperatively The patient is at or returning to normothermia at the conclusion of the immediate postoperative period The patient's respiratory function is consistent with or improved from baseline levels established preoperatively The patient's cardiovascular status is consistent with or improved from baseline levels established preoperatively The patient's neurological status is consistent with or improved from baseline levels established preoperatively The patient demonstrates and/or reports adequate pain control throughout the perioperative period The patient received appropriate medication(s), safely administered during the perioperative period Finalized By: Robina Garces RN Document Signatures Signed By: Robina Garces RN 07/26/22 15:08 Normal [facility] Main OR Preoperative Recordo n 07-26-2022 Main OR Preoperative Record PreOp Docume nt Type FT Summary Primary Physician: Talon Mcbride DO Finalized Date/Time: 07/26/22 09:32:38 Pt. Name: GERRY VICTORIA/Sex: 1955 Female Med Rec #: [id number] Physician: Talon Mcbride DO Financial #: [id number] Pt. Type: A Room/Bed: [place] [address] Admit/Disch: 07/26/22 05:37:39 - Institution: Case Times PreOp FT Pre-Care Text: Verifies consent for planned procedure, identifies individual values and wishes concerning care, includes family members in perioperative teaching Entry 1 Patient Times. In Pre Surgery 07/26/22 05:50:00 Out Pre Surgery 07/26/22 08:20:00 Outcomes Met? Yes Last Modified By: Umu Ty RN 07/26/22 09:32:34 Post-Care Text: The patient participates in decisions affecting his or her perioperative plan of care Finalized By: Umu Ty RN Document Signatures Signed By: Umu Ty RN 07/26/22 09:32 Normal [facility] Monitor Recordon 07-26-2022 Monitor Record [id number]:127 Normal [facility] Monitor Record [id number]:127 Normal [facility] Operative Reporton 3 Operative Report Indication for Surge ry This is a 66-year-old female that presents to the hospital for elective laparoscopic cholecystectomy. She was seen with with cholecystitis and April 2022 but found to have a possible STEMI at the time of acute cholecystitis. She was managed with a percutaneous cholecystostomy tube and medical management for her STEMI. She was cleared by cardiology and started on antiplatelet therapy. She underwent a cholangiogram as an outpatient through her tube which showed consistent blockage of her bile ducts thus a laparoscopic cholecystectomy was recommended. Risk benefits and potential complications of surgical intervention were explained and she wished to proceed Preoperative Diagnosis CHOLELITHIASIS Postoperative Diagnosis Chronic cholecystitis, cholelithiasis Operation CHOLECYSTECTOMY LAPAROSCOPIC W/ CHOLANGI, LAPROSCOPIC CHOLECYSTECTOMY WITH CHOLANGIOGRAM, . Surgeon(s) Talon Mcbride DO (Surgeon - Primary) Distribution Sales Manager Candis Theodore Anesthesia General Connie Winston DO (Treating Machine Operator) Malikpen Jeana MENDES (Other) Estimated Blood Loss 50 cc Urine Output Not recorded Findings Chronic cholecystitis Redundant gallbladder with minimal adhesions to the liver Specimen(s) Pathology Tissue Exam (Gallbladder,AP Specimen) Complications None Technique Patient brought the operating placed in supine position. After induction of general anesthesia the abdomen is prepped and draped in usual sterile fashion. Supraumbilical incision was made and dissection was taken down the intra-abdominal fascia. The fascia was incised and the abdomen was entered under direct visualization. 2-0 Vicryl stay sutures were placed within the fascia and Foss trocar placed. The abdomen was insufflated this was tolerated well by the patient. Upon entry into the abdomen there is no signs of any injury and there were some mild adhesions from the percutaneous cholecystostomy tube which was still present. 2 additional 5 mm trocars were placed within the right upper quadrant as a subxiphoid could not be placed due to adhesions. These adhesions were taken down with a combination of blunt and sharp dissection to allow for adequate visualization of the liver edge. Once the liver was completely freed from the anterior abdominal wall the percutaneous cholecystostomy tube was removed and a 5 mm trocar was placed within the subxiphoid port. The gallbladder was noted to be significantly redundant with adhesions to the falciform ligament. These adhesions were also taken down with a combination of blunt and sharp dissection. Due to the redundancy of the gallbladder traditional retraction superiorly did not provide adequate visualization for safe dissection process of the cystic duct and cystic artery. A dome down approach was then taken in the liver and gallbladder were using a combination of blunt and sharp dissection. The artery was clearly identified entering into the gallbladder and the anterior aspect of the cystic duct. Cystic duct was short and densely adhered to the underlying common bile duct and care was taken during the dissection process to avoid any injury. Once the cystic duct was freed from the surrounding liver as well as the underlying common bile duct a cholangiogram was obtained. A small ductotomy was made on the cystic duct near the infundibulum and a cholangiogram was obtained. Cholangiogram showed normal filling of the duodenum no filling defects within the distal common bile duct and retrograde filling of the right left hepatic ducts with no signs of any extract from the common bile duct. The cystic artery was then clipped triply proximally and 1 distally and divided between. Due to the dome down approach, the size of the cystic duct, and the proximity of the cystic duct to the common bile duct the cystic duct was ligated using PDS Endoloops and transected using EndoShears. Gallbladder then with placed within the Endo Catch bag and the abdomen is inspected. There is no signs of any bleeding from the liver the clips were in place and no signs of any bile leakage. The abdomen was irrigated and hemostasis was achieved. The gallbladder was then removed from the umbilicus using an Endo Catch bag. The 5 mm trocars were removed under direct visualization. The umbilical fascial defect was closed with interrupted 0 Vicryl [id number] sutures as well as the existing 0 Vicryl stay sutures. The skin incisions were closed with subcuticular 4-0 Monocryl suture. The skin incisions were then dressed with Dermabond. The prior percutaneous cholecystostomy site was covered with a 2 x 2 and tape. Patient was extubated and taken to PACU in stable condition. Normal [facility] Comment on above: Result Comment: Elec tronically Signed By: Talon Mcbride DO\.br\Date and Time Signed: 07/26/22 14:24 EDT Patient Education - Texton 0 07-26-2022 Patient Education - Text Gastroenterology Minimally Invasive Cholecystectomy, Care After What can I expect after the procedure? After the procedure, it is common to: ? Have pain at the areas of surgery. You will be given medicines for pain. ? Vomit or feel like you may vomit. ? Feel fullness in the belly (bloating) or have pain in the shoulder. This comes from the gas that was used during the surgery. Follow these instructions at home: Medicines ? Take [id number] and prescription medicines only as told by your doctor. ? If you were prescribed an antibiotic medicine, take it as told by your doctor. Do not stop taking it even if you start to feel better. ? If told, take steps to prevent problems with pooping (constipation). You may need to: ? Drink enough fluid to keep your pee (urine) pale yellow. ? Take medicines. You will be told what medicines to take. ? Eat foods that are high in fiber. These include beans, whole grains, and fresh fruits and vegetables. ? Limit foods that are high in fat and sugar. These include fried or sweet foods. ? Ask your doctor if you should avoid driving or using machines while you are taking your medicine. Incision care ? Follow instructions from your doctor about how to take care of your cuts from surgery (incisions). Make sure you: ? Wash your hands with soap and water for at least 20 seconds before and after you change your bandage (dressing). If you cannot use soap and water, use hand content producer. ? Change your bandage. ? Leave stitches (sutures) or skin glue in place for at least 2 weeks. ? Leave tape strips alone unless you are told to take them off. You may trim the edges of the tape strips if they curl up. ? Do not take baths, swim, or use a hot tub. Ask your doctor about taking showers or sponge baths. ? Check your incision area every day for signs of infection. Check for: ? More redness, swelling, or pain. ? Fluid or blood. ? Warmth. ? Pus or a bad smell. Activity ? Rest as told by your doctor. Do not do activities that require a lot of effort. ? Get up to take short walks every 1 to 2 hours. Ask for help if you feel weak or unsteady. ? Do not lift anything that is heavier than 10 lb (4.5 kg), or the limit that you are told. ? Do not play contact sports until your doctor says it is okay. ? Do not return to work or school until your doctor says it is okay. ? Return to your normal activities when your doctor says that it is safe. General instructions ? If you were given a sedative during your procedure, do not drive or use machines until your doctor says that it is safe. A sedative is a medicine that helps you relax. ? Keep all follow-up visits. Contact a doctor if: ? You get a rash. ? You have more redness, swelling, or pain around your incisions. ? You have fluid or blood coming from your incisions. ? Your incisions feel warm to the touch. ? You have pus or a bad smell coming from your incisions. ? You have a fever. ? One or more of your incisions breaks open. Get help right away if: ? You have trouble breathing. ? You have chest pain. ? You have pain that is getting worse in your shoulders. ? You faint or feel dizzy when you stand. ? You have very bad pain in your belly (abdomen). ? You feel like you may vomit or you vomit, and this lasts for more than one day. ? You have leg pain. These symptoms may be an emergency. Get help right away. Call 911. ? Do not wait to see if the symptoms will go away. ? Do not drive yourself to the hospital. Summary ? After your surgery, it is common to have pain at the areas of surgery. You may also vomit or feel fullness in the belly. ? Follow your doctor's instructions about medicine, activity restrictions, and caring for your surgery areas. Do not do activities that require a lot of effort. ? Contact a doctor if you have a fever or other signs of infection, such as more redness, swelling, or pain around your incisions. ? Get help right away if you have chest pain, increasing pain in the shoulders, or trouble breathing. This information is not intended to replace advice given to you by your health care provider. Make sure you discuss any questions you have with your health care provider. Document Revised: 09/14/2021 Document Reviewed: 09/14/2021 [email or web address] Patient Education ? 2022 [employer]. Cholelithiasis Cholelithiasis is a disease in which gallstones form in the gallbladder. The gallbladder is an organ that stores bile. Bile is a fluid that helps to digest fats. Gallstones begin as small crystals and can slowly grow into stones. They may cause no symptoms until they block the gallbladder duct, or cystic duct, when the gallbladder tightens (contracts) after food is eaten. This can cause pain and is known as a gallbladder attack, or biliary colic. There are two main types o (more content not included)... Normal [facility] Progress Note-Physicianon Progress Note-Physician Patient: GERRY VICTORIA Age: 66 years Sex: Female : 1955 Associated Diagnoses: None Author: Connie Winston DO Postoperative Information Postoperative disposition: Postoperative disposition: To PACU. Anesthetic utilized: General. Health Status Allergies: Allergic Reactions (Selected) Severity Not Documented Adhesive Bandage- Rash. Nonallergic Reactions (Selected) Severity Not Documented Cymbalta- Unable to function properly d/t drowsiness. Lyrica- Edema of feet. Current medications: (Selected) Inpatient Medications Ordered Lactated Ringers IV Lolis 1000 mL 1,000 mL: 1,000 mL, IV, 150 mL/hr, Routine, Start date 07/26/22 6:00:00 EDT, 6.7 hour(s), Total volume (mL): 1,000, 74.6 kg, 1.79, m2 acetaminophen 325 mg Tab: 650 mg = 2 tab(s), Tab, Oral, q6hrFT for 30 day(s), Stop date 08/25/22 12:59:00 EDT, Routine, Start date 07/26/22 13:00:00 EDT cefazolin additive + Sodium Chloride 0.9% intravenous solution 50 mL: 2 gram = 1 EA, Powder-Inj, IV Piggyback, PREOP, Routine, Start date 07/26/22 6:00:00 EDT, 100 mL/hr, Infuse over 30 minute(s) oxyCODONE 5 mg Tab: 5 mg = 1 tab(s), Tab, Oral, q4hr PRN Pain 4-7 for 30 day(s), Stop date 08/25/22 12:39:00 EDT, Routine, Start date 07/26/22 12:40:00 EDT, Pain score 4-7. Prescriptions Prescribed oxyCODONE 5 mg Tab: 5 mg = 1 tab(s), Oral, q6hr, PRN Pain 8-10, X 3 day(s), # 12 tab(s), Refills(s) 0, Pharmacy: [facility] [id number], 154, cm, 07/18/22 14:13:00 EDT, Height/Length Dosing, 74.6, kg, 07/18/22 14:13:00 EDT, Weight Dosing oxybutynin 10 mg ER Tab: 10 mg = 1 tab(s), Oral, Daily, # 90 tab(s), Refills(s) 3, Pharmacy: [facility] [id number], 154, cm, 11/30/21 13:27:00 EDT, Height/Length Dosing, 88, kg, 11/30/21 13:26:00 EDT, Weight Dosing Documented Medications Documented Acidophilus Probiotic Blend: 1 cap(s), Oral, Daily, Prophylaxis Benadryl 25 mg Tab: Daily, PRN as needed for allergy symptoms, Refills(s) 0 Celebrate Multivitamin: 1 tab(s), Chewed, Daily, Refill(s) 0, Prophylaxis Lexapro 10 mg Tab: 10 mg = 1 tab(s), Oral, Daily, Refills(s) 0, Depression Metamucil 525 mg oral capsule: 2,625 mg = 5 cap(s), Oral, Daily, PRN for constipation, # 100 cap(s), Refills(s) 0 Requip 2 mg Tab: 2 mg = 1 tab(s), Oral, BID, restless legs, Refills(s) 0, Other (see comment) Vitamin D3 2000 intl units oral Tab: 50 mcg, Oral, Daily, tab(s), Refills(s) 0, Prophylaxis acetaminophen 325 mg Tab: 650 mg = 2 tab(s), Oral, q6hr, Refills(s) 0 acyclovir 400 mg Tab: 400 mg = 1 tab(s), Oral, Once a day (at bedtime), Refills(s) 0, Prophylaxis amitriptyline 50 mg Tab: 50 mg = 1 tab(s), Oral, Once a day (at bedtime), fibromylagia, Refills(s) 0, Other (see comment) aspirin 81 mg Oral EC Tab: 81 mg = 1 tab(s), Oral, Daily, afib, Refills(s) 0, Other (see comment) atenolol 50 mg Tab: 50 mg = 1 tab(s), Oral, Daily, Refills(s) 0, Irregular heartbeat calcium (as carbonate) 600 mg oral tablet: 1,200 mg = 2 tab(s), Oral, Daily, Prophylaxis docusate sodium 100 mg Cap: 200 mg = 2 cap(s), Oral, qPM, Refills(s) 0, Constipation gabapentin 100 mg Cap: 200 mg = 2 cap(s), Oral, BID, Refills(s) 0, Pain levothyroxine 150 mcg (0.15 mg) Tab: 150 microgram = 1 tab(s), Oral, Daily, Refills(s) 0, Thyroid omeprazole 20 mg Cap-DR: 20 mg = 1 cap(s), Oral, Daily, # 30 cap(s), Refills(s) 0, Gas tramadol: 50 mg, Oral, q8hr, PRN as needed for pain, Pain, Home Medications (20) Active acetaminophen 325 mg Tab 650 mg = 2 tab(s), Oral, q6hr Acidophilus Probiotic Blend 1 cap(s), Oral, Daily acyclovir 400 mg Tab 400 mg = 1 tab(s), Oral, Once a day (at bedtime) amitriptyline 50 mg Tab 50 mg = 1 tab(s), Oral, Once a day (at bedtime) aspirin 81 mg Oral EC Tab 81 mg = 1 tab(s), Oral, Daily atenolol 50 mg Tab 50 mg = 1 tab(s), Oral, Daily Benadryl 25 mg Tab , PRN, Daily calcium (as carbonate) 600 mg oral tablet 1,200 mg = 2 tab(s), Oral, Daily Celebrate Multivitamin 1 tab(s), Chewed, Daily docusate sodium 100 mg Cap 200 mg = 2 cap(s), Oral, qPM gabapentin 100 mg Cap 200 mg = 2 cap(s), Oral, BID levothyroxine 150 mcg (0.15 mg) Tab 150 microgram = 1 tab(s), Oral, Daily Lexapro 10 mg Tab 10 mg = 1 tab(s), Oral, Daily Metamucil 525 mg oral capsule 2,625 mg = 5 cap(s), PRN, Oral, Daily omeprazole 20 mg Cap-DR 20 mg = 1 cap(s), Oral, Daily oxybutynin 10 mg ER Tab 10 mg = 1 tab(s), Oral, Daily oxyCODONE 5 mg Tab 5 mg = 1 tab(s), PRN, Oral, q6hr Requip 2 mg Tab 2 mg = 1 tab(s), Oral, BID tramadol 50 mg, PRN, Oral, q8hr Vitamin D3 2000 intl units oral Tab 50 mcg, Oral, Daily Problem list: All Problems Acid reflux / SNOMED CT 3381794731 / Confirmed Anxiety / SNOMED CT 7723274170 / Confirmed Arthritis / SNOMED CT 0832928 / Confirmed Atrial fibrillation / SNOMED CT 05633333 / Confirmed Chronic fatigue syndrome / SNOMED CT 88191546 / Confirmed Constipation / SNOMED CT 089825584 / Confirmed Degenerative disc disease, lumbar / SNOMED CT 78765309 / Confirmed Depre (more content not included)... Normal [facility] Comment on above: Result Comment: Elec tronically Signed By: Connie Winston DO\.br\Date and Time Signed: 07/26/22 13:34 EDT Progress Note-Physician Patient: GERRY VICTORIA Age: 66 years Sex: Female : 1955 Associated Diagnoses: None Author: Connie Winston DO Preoperative Information Anesthesia history: Patient history: None. Family history+: None. Anesthesia results Informed consent: Signed by patient. Including risks, benefits, and alternatives related to the: Anesthetic plan, Postoperative pain management plan. Re-evaluation prior to induction: Connie Winston DO Health Status Allergies: Allergic Reactions (Selected) Severity Not Documented Adhesive Bandage- Rash. Nonallergic Reactions (Selected) Severity Not Documented Cymbalta- Unable to function properly d/t drowsiness. Lyrica- Edema of feet., Allergies (3) Active Reaction Adhesive Bandage rash Cymbalta unable to function properly d/t drowsiness Lyrica edema of feet Current medications: (Selected) Inpatient Medications Ordered Lactated Ringers IV Lolis 1000 mL 1,000 mL: 1,000 mL, IV, 150 mL/hr, Routine, Start date 07/26/22 6:00:00 EDT, 6.7 hour(s), Total volume (mL): 1,000, 74.6 kg, 1.79, m2 cefazolin additive + Sodium Chloride 0.9% intravenous solution 50 mL: 2 gram = 1 EA, Powder-Inj, IV Piggyback, PREOP, Routine, Start date 07/26/22 6:00:00 EDT, 100 mL/hr, Infuse over 30 minute(s) Prescriptions Prescribed oxybutynin 10 mg ER Tab: 10 mg = 1 tab(s), Oral, Daily, # 90 tab(s), Refills(s) 3, Pharmacy: [facility] [id number], 154, cm, 11/30/21 13:27:00 EDT, Height/Length Dosing, 88, kg, 11/30/21 13:26:00 EDT, Weight Dosing Documented Medications Documented Acidophilus Probiotic Blend: 1 cap(s), Oral, Daily, Prophylaxis Benadryl 25 mg Tab: Daily, PRN as needed for allergy symptoms, Refills(s) 0 Celebrate Multivitamin: 1 tab(s), Chewed, Daily, Refill(s) 0, Prophylaxis Lexapro 10 mg Tab: 10 mg = 1 tab(s), Oral, Daily, Refills(s) 0, Depression Metamucil 525 mg oral capsule: 2,625 mg = 5 cap(s), Oral, Daily, PRN for constipation, # 100 cap(s), Refills(s) 0 Requip 2 mg Tab: 2 mg = 1 tab(s), Oral, BID, restless legs, Refills(s) 0, Other (see comment) Vitamin D3 2000 intl units oral Tab: 50 mcg, Oral, Daily, tab(s), Refills(s) 0, Prophylaxis acyclovir 400 mg Tab: 400 mg = 1 tab(s), Oral, Once a day (at bedtime), Refills(s) 0, Prophylaxis amitriptyline 50 mg Tab: 50 mg = 1 tab(s), Oral, Once a day (at bedtime), fibromylagia, Refills(s) 0, Other (see comment) aspirin 81 mg Oral EC Tab: 81 mg = 1 tab(s), Oral, Daily, afib, Refills(s) 0, Other (see comment) atenolol 50 mg Tab: 50 mg = 1 tab(s), Oral, Daily, Refills(s) 0, Irregular heartbeat calcium (as carbonate) 600 mg oral tablet: 1,200 mg = 2 tab(s), Oral, Daily, Prophylaxis docusate sodium 100 mg Cap: 200 mg = 2 cap(s), Oral, qPM, Refills(s) 0, Constipation gabapentin 100 mg Cap: 200 mg = 2 cap(s), Oral, BID, Refills(s) 0, Pain levothyroxine 150 mcg (0.15 mg) Tab: 150 microgram = 1 tab(s), Oral, Daily, Refills(s) 0, Thyroid omeprazole 20 mg Cap-DR: 20 mg = 1 cap(s), Oral, Daily, # 30 cap(s), Refills(s) 0, Gas tramadol: 50 mg, Oral, q8hr, PRN as needed for pain, Pain, Home Medications (18) Active Acidophilus Probiotic Blend 1 cap(s), Oral, Daily acyclovir 400 mg Tab 400 mg = 1 tab(s), Oral, Once a day (at bedtime) amitriptyline 50 mg Tab 50 mg = 1 tab(s), Oral, Once a day (at bedtime) aspirin 81 mg Oral EC Tab 81 mg = 1 tab(s), Oral, Daily atenolol 50 mg Tab 50 mg = 1 tab(s), Oral, Daily Benadryl 25 mg Tab , PRN, Daily calcium (as carbonate) 600 mg oral tablet 1,200 mg = 2 tab(s), Oral, Daily Celebrate Multivitamin 1 tab(s), Chewed, Daily docusate sodium 100 mg Cap 200 mg = 2 cap(s), Oral, qPM gabapentin 100 mg Cap 200 mg = 2 cap(s), Oral, BID levothyroxine 150 mcg (0.15 mg) Tab 150 microgram = 1 tab(s), Oral, Daily Lexapro 10 mg Tab 10 mg = 1 tab(s), Oral, Daily Metamucil 525 mg oral capsule 2,625 mg = 5 cap(s), PRN, Oral, Daily omeprazole 20 mg Cap-DR 20 mg = 1 cap(s), Oral, Daily oxybutynin 10 mg ER Tab 10 mg = 1 tab(s), Oral, Daily Requip 2 mg Tab 2 mg = 1 tab(s), Oral, BID tramadol 50 mg, PRN, Oral, q8hr Vitamin D3 2000 intl units oral Tab 50 mcg, Oral, Daily , Medications (2) Active Scheduled: (1) ceFAZolin + Sodium Chloride 0.9% Minibag 50 mL 2 gram 1 EA, IV Piggyback, PREOP Continuous: (1) Lactated Ringers 1,000 mL 1,000 mL, IV, 150 mL/hr PRN: (0) Problem list: All Problems Acid reflux / SNOMED CT 1954615026 / Confirmed Anxiety / SNOMED CT 9275808098 / Confirmed Arthritis / SNOMED CT 2212292 / Confirmed Atrial fibrillation / SNOMED CT 43142481 / Confirmed Chronic fatigue syndrome / SNOMED CT 93827964 / Confirmed Constipation / SNOMED CT 613861594 / Confirmed Degenerative disc disease, lumbar / SNOMED CT 80149488 / Confirmed Depression / SNOMED CT 73956522 / Confirmed Fibromyalgia / SNOMED CT 224477223 / Confirmed Herpes / SNOMED CT 886970843 / Confirmed History of irregular heartbeat / SNOMED CT 9475339369 / Confirmed (more content not included)... Normal [facility] Comment on above: Result Comment: Elec tronically Signed By: Connie Winston DObr\Date and Time Signed: 07/26/22 07:38 EDT Progress Note-Physician Patient: GERRY VICTORIA Age: 66 years Sex: Female : 1955 Associated Diagnoses: None Author: Connie Winston DO Preoperative Information Anesthesia history: Patient history: None. Family history+: None. Anesthesia results Informed consent: Signed by patient. Including risks, benefits, and alternatives related to the: Anesthetic plan, Postoperative pain management plan. Re-evaluation prior to induction: Connie Winston DO. Health Status Allergies: Allergic Reactions (Selected) Severity Not Documented Adhesive Bandage- Rash. Nonallergic Reactions (Selected) Severity Not Documented Cymbalta- Unable to function properly d/t drowsiness. Lyrica- Edema of feet., Allergies (3) Active Reaction Adhesive Bandage rash Cymbalta unable to function properly d/t drowsiness Lyrica edema of feet Current medications: (Selected) Inpatient Medications Ordered Lactated Ringers IV Lolis 1000 mL 1,000 mL: 1,000 mL, IV, 150 mL/hr, Routine, Start date 07/26/22 6:00:00 EDT, 6.7 hour(s), Total volume (mL): 1,000, 74.6 kg, 1.79, m2 cefazolin additive + Sodium Chloride 0.9% intravenous solution 50 mL: 2 gram = 1 EA, Powder-Inj, IV Piggyback, PREOP, Routine, Start date 07/26/22 6:00:00 EDT, 100 mL/hr, Infuse over 30 minute(s) Prescriptions Prescribed oxybutynin 10 mg ER Tab: 10 mg = 1 tab(s), Oral, Daily, # 90 tab(s), Refills(s) 3, Pharmacy: [facility] [id number], 154, cm, 11/30/21 13:27:00 EDT, Height/Length Dosing, 88, kg, 11/30/21 13:26:00 EDT, Weight Dosing Documented Medications Documented Acidophilus Probiotic Blend: 1 cap(s), Oral, Daily, Prophylaxis Benadryl 25 mg Tab: Daily, PRN as needed for allergy symptoms, Refills(s) 0 Celebrate Multivitamin: 1 tab(s), Chewed, Daily, Refill(s) 0, Prophylaxis Lexapro 10 mg Tab: 10 mg = 1 tab(s), Oral, Daily, Refills(s) 0, Depression Metamucil 525 mg oral capsule: 2,625 mg = 5 cap(s), Oral, Daily, PRN for constipation, # 100 cap(s), Refills(s) 0 Requip 2 mg Tab: 2 mg = 1 tab(s), Oral, BID, restless legs, Refills(s) 0, Other (see comment) Vitamin D3 2000 intl units oral Tab: 50 mcg, Oral, Daily, tab(s), Refills(s) 0, Prophylaxis acyclovir 400 mg Tab: 400 mg = 1 tab(s), Oral, Once a day (at bedtime), Refills(s) 0, Prophylaxis amitriptyline 50 mg Tab: 50 mg = 1 tab(s), Oral, Once a day (at bedtime), fibromylagia, Refills(s) 0, Other (see comment) aspirin 81 mg Oral EC Tab: 81 mg = 1 tab(s), Oral, Daily, afib, Refills(s) 0, Other (see comment) atenolol 50 mg Tab: 50 mg = 1 tab(s), Oral, Daily, Refills(s) 0, Irregular heartbeat calcium (as carbonate) 600 mg oral tablet: 1,200 mg = 2 tab(s), Oral, Daily, Prophylaxis docusate sodium 100 mg Cap: 200 mg = 2 cap(s), Oral, qPM, Refills(s) 0, Constipation gabapentin 100 mg Cap: 200 mg = 2 cap(s), Oral, BID, Refills(s) 0, Pain levothyroxine 150 mcg (0.15 mg) Tab: 150 microgram = 1 tab(s), Oral, Daily, Refills(s) 0, Thyroid omeprazole 20 mg Cap-DR: 20 mg = 1 cap(s), Oral, Daily, # 30 cap(s), Refills(s) 0, Gas tramadol: 50 mg, Oral, q8hr, PRN as needed for pain, Pain, Home Medications (18) Active Acidophilus Probiotic Blend 1 cap(s), Oral, Daily acyclovir 400 mg Tab 400 mg = 1 tab(s), Oral, Once a day (at bedtime) amitriptyline 50 mg Tab 50 mg = 1 tab(s), Oral, Once a day (at bedtime) aspirin 81 mg Oral EC Tab 81 mg = 1 tab(s), Oral, Daily atenolol 50 mg Tab 50 mg = 1 tab(s), Oral, Daily Benadryl 25 mg Tab , PRN, Daily calcium (as carbonate) 600 mg oral tablet 1,200 mg = 2 tab(s), Oral, Daily Celebrate Multivitamin 1 tab(s), Chewed, Daily docusate sodium 100 mg Cap 200 mg = 2 cap(s), Oral, qPM gabapentin 100 mg Cap 200 mg = 2 cap(s), Oral, BID levothyroxine 150 mcg (0.15 mg) Tab 150 microgram = 1 tab(s), Oral, Daily Lexapro 10 mg Tab 10 mg = 1 tab(s), Oral, Daily Metamucil 525 mg oral capsule 2,625 mg = 5 cap(s), PRN, Oral, Daily omeprazole 20 mg Cap-DR 20 mg = 1 cap(s), Oral, Daily oxybutynin 10 mg ER Tab 10 mg = 1 tab(s), Oral, Daily Requip 2 mg Tab 2 mg = 1 tab(s), Oral, BID tramadol 50 mg, PRN, Oral, q8hr Vitamin D3 2000 intl units oral Tab 50 mcg, Oral, Daily , Medications (2) Active Scheduled: (1) ceFAZolin + Sodium Chloride 0.9% Minibag 50 mL 2 gram 1 EA, IV Piggyback, PREOP Continuous: (1) Lactated Ringers 1,000 mL 1,000 mL, IV, 150 mL/hr PRN: (0) Problem list: All Problems Acid reflux / SNOMED CT 0541381504 / Confirmed Anxiety / SNOMED CT 3372217723 / Confirmed Arthritis / SNOMED CT 6703890 / Confirmed Atrial fibrillation / SNOMED CT 44262918 / Confirmed Chronic fatigue syndrome / SNOMED CT 04733745 / Confirmed Constipation / SNOMED CT 346152462 / Confirmed Degenerative disc disease, lumbar / SNOMED CT 04276438 / Confirmed Depression / SNOMED CT 00268530 / Confirmed Fibromyalgia / SNOMED CT 204302067 / Confirmed Herpes / SNOMED CT 462995424 / Confirmed History of irregular heartbeat / SNOMED CT 4079152736 / Confirmed (more content not included)... Normal [facility] Comment on above: Result Comment: Elec tronically Signed By: Connie Winston DO.br\Date and Time Signed: 07/26/22 07:19 EDT Coding Summary.on 07-21-2022 Coding Summary. [id number] [file] [id number] (more content not included)... Normal [facility] BUNon 07-18-2022 Urea nitrogen [Mass/Vol] 10 mg/dL Normal - [facility] Comment on above: Performed By: #### 2 019277, 6799514, 7420845, 5558591, 0073361, 66724102 ####[facility] [address] [place] [address] CBC w/Indiceson 07-18-2022 Erythrocyte distribution wid th (RBC) [Ratio] 16.6 % High 10.9-14.2 [facility] Comment on above: Performed By: #### 2 182818, 5633579, 7805439, 5988729, 8228292, 38525594 ####[facility] [address] [place] [address] Hematocrit (Bld) [Volume fraction] 29.8 % Low 3 4.0-46.0 [facility] Comment on above: Performed By: #### 2 567989, 6034041, 4139977, 3120124, 1726526, 77767006 ####[facility] [address] [place] [address] Hemoglobin (Bld) [Mass/Vol] 9.5 g/dL Low 12.0-16. 0 [facility] Comment on above: Performed By: #### 2 068211, 9863071, 4942269, 7236729, 8294658, 59544297 ####[facility] [address] [place] [address] MCH (RBC) [Entitic mass] 26.1 pg Low 27.0-34.0 [facility] Comment on above: Performed By: #### 2 864483, 7011911, 9510374, 8835957, 9486225, [id number] ####[address] [address] MCHC (RBC) [Mass/Vol] 31.9 g/dL Normal 31.4-36.0 [facility] Comment on above: Performed By: #### 2 069996, 0628713, 9144338, 3677758, 8746107, 95723965 ####[address] [address] MCV (RBC) [Entitic vol] 81.9 fL Normal 80.0-100.0 F [facility] Comment on above: Performed By: #### 2 887404, 1123865, 9204469, 5127013, 8179784, 35524113 ####[address] [address] Platelet mean volume (Bld) [Entitic vol] 7.1 fL Normal 6.4-10.8 [facility] Comment on above: Performed By: #### 2 537563, 6289317, 5743568, 5223295, 3818220, 70294751 ####[address] [address] Platelets (Bld) [#/Vol] 249.0 E9/L Normal 150.0-500.0 [facility] Comment on above: Performed By: #### 2 028474, 9685872, 6265382, 4472397, 8426262, 53311930 ####[address] [place] [address] RBC (Bld) [#/Vol] 3.6 E12/L Low 4.3-5.9 [facility] Comment on above: Performed By: #### 2 343305, 9480751, 6268141, 5265071, 4805515, 36572114 ####[facility] [address] [place] [address] WBC corrected for nucl RBC A uto (Bld) [#/Vol] 5.0 E9/L Normal 4.0-11.0 [facility] Comment on above: Performed By: #### 2 055728, 4042725, 5967107, 0626135, 2924019, 45120348 ####[facility] [address] [place] [address] CHEMISTRYOrdered By: SYSTEM SYSTEM on 07-18-2022 Anion gap [Moles/Vol] 9 mmol/L Normal 6 - 16 mEq/L [facility] Remisol Chloride [Moles/Vol] 101 mmol/L Normal 101 - 111 mmol/ L [facility] [place] Remisol CO2 [Moles/Vol] 30 mmol/L Normal 21 - 31 mmol/L [facility] [place] Remisol Creatinine [Mass/Vol] 0.8 mg/dL Normal 0.5 - 1.3 mg/d L [facility] [place] Remisol GFR/1.73 sq M.predicted anthony g blacks MDRD (S/P/Bld) [Vol rate/Area] mL/min/1.73 m2 Normal >=59mL/min/1.73 m2 [facility] [place] Chem S GFR/1.73 sq M.predicted anthony g non-blacks MDRD (S/P/Bld) [Vol rate/Area] mL/min/1.73 m2 Normal >=59mL/min/1.73 m2 [facility] [place] Chem S Glucose [Mass/Vol] 93 mg/dL Normal 55 - 199 mg/dL [facility] Remisol Potassium [Moles/Vol] 3.7 mmol/L Normal 3.5 - 5.3 mmol /L [facility] [place] Remisol Sodium [Moles/Vol] 136 mmol/L Normal 135 - 145 mmol/L [facility] [place] Remisol Urea nitrogen [Mass/Vol] 10 mg/dL Normal 5 - 21 mg/d L [facility] [place] Remisol Consent for Treatmenton 06-26 Consent for Treatment [id number] Normal [facility] Creatinineon 07-18-2022 Creatinine [Mass/Vol] 0.8 mg/dL Normal 0.5-1.3 [facility] Comment on above: Performed By: #### 2 474549, 1749867, 2002853, 5983591, 0388566, 48691465 ####[facility] [address] [place] [address] Glucoseon 07-18-2022 Glucose [Mass/Vol] 93 mg/dL Normal 55-199 [facility] Comment on above: Performed By: #### 2 199553, 5297577, 1445425, 8460236, 4438560, 52414120 ####[facility] [address] [place] [address] HEMATOLOGYOrdered By: Helen Chowdhury on 07-18-2022 Erythrocyte distribution wid th (RBC) [Ratio] 16.6 % High 10.9 - 14.2 % [facility] Hematocrit (Bld) [Volume fraction] 29.8 % Low 34.0 - 46.0 % [facility] Hemoglobin (Bld) [Mass/Vol] 9.5 g/dL Low 12.0 - 1 6.0 gm/dL [facility] MCH (RBC) [Entitic mass] 26.1 pg Low 27.0 - 34.0 pg [facility] MCHC (RBC) [Mass/Vol] 31.9 g/dL Normal 31.4 - 36.0 gm /dL [facility] MCV (RBC) [Entitic vol] 81.9 fL Normal 80.0 - 100.0 fL [facility] Platelet mean volume (Bld) [Entitic vol] 7.1 fL Normal 6.4 - 10.8 fL [facility] Platelets (Bld) [#/Vol] 249.0 E9/L Normal 150.0 - 500. 0 E9/L [facility] RBC (Bld) [#/Vol] 3.6 E12/L Low 4.3 - 5.9 E12/L [facility] WBC corrected for nucl RBC A uto (Bld) [#/Vol] 5.0 E9/L Normal 4.0 - 11.0 E9/L [facility] Lyteson 07-18-2022 Anion gap [Moles/Vol] 9 mmol/L Normal 6-16 [facility] Comment on above: Performed By: #### 2 600153, 3426210, 0238398, 0214099, 3501453, 48917493 ####[facility] [address] [place] [address] Chloride [Moles/Vol] 101 mmol/L Normal 101-[address] [facility] Comment on above: Performed By: #### 2 358149, 1553316, 6656820, 3160336, 4653934, 98380373 ####[facility] [address] [place] [address] CO2 [Moles/Vol] 30 mmol/L Normal 21-31 [facility] Comment on above: Performed By: #### 2 071980, 4032632, 7956071, 9982853, 9152444, 97046112 ####[facility] [address] [place] [address] Potassium [Moles/Vol] 3.7 mmol/L Normal 3.5-5.3 [facility] Comment on above: Performed By: #### 2 038971, 0832110, 7957718, 0783820, 2407789, 84391034 ####[facility] [address] [place] [address] Sodium [Moles/Vol] 136 mmol/L Normal 135-145 [facility] Comment on above: Performed By: #### 2 163187, 9496151, 7571177, 5975091, 4929518, 60863708 ####[facility] [address] [place] [address] XR Chest 2 Viewson 3 XR Chest 2 Views Exam Date/Time: 07/18/2022 14:04 EDT Reason for Exam: P.A.T. Report IMPRESSION: NO EVIDENCE OF ACTIVE CHEST DISEASE. CLINICAL HISTORY: P.A.T.. COMPARISON: 05/25/2016. COMMENT: The heart is normal in size. The mediastinum is unremarkable. The lungs appear clear. No infiltration nor pleural effusion is evident. Partially included within the field of view is a pigtail catheter projected on the right upper abdomen. Ordering Provider: Jamin Palomino FINAL REPORT Dictated: 07/18/2022 2:32 pm Talon Tyson M.D. Signed (Electronic Signature): 07/18/2022 2:32 pm Signed by: Talon Tyson M.D. Transcribed by: JANNETH Technologist: WILMER Technical Comments Radiation Dose: Ka,r in mGy = na DAP = na Normal [facility] eGFRon 07-18-2022 GFR/1.73 sq M.predicted anthony g blacks MDRD (S/P/Bld) [Vol rate/Area] mL/min/{1.73_m2} Normal >=59 [facility] Comment on above: Order Comment: Order added by Discern Expert. Result Comment: eGFR is race adjusted. AA=. Performed By: #### 2 902990, 4703916, 7481960, 2753132, 5649761, 49584769 ####[facility] [address] [place] [address] GFR/1.73 sq M.predicted anthony g non-blacks MDRD (S/P/Bld) [Vol rate/Area] mL/min/{1.73_m2} Normal >=59 [facility] Comment on above: Order Comment: Order added by Discern Expert. Result Comment: College T[employer] heidi kidney disease could be indicated at eGFR's of less than 60 mL/min/1.73m2. Kidney failure is indicated at less than 15 mL/min/1.73m2. Performed By: #### 2 577664, 4804967, 5477237, 6779486, 5314023, [id number] ####[facility] [address] [place] [address] Telephone Encounteron 2022 [employer] Aut[employer] Interface Message Text Patient called regarding a rash near her drain that is right by her breast. Gaudencio is triaging Ms. Victoria, Gaudencio has suggest for patient to go to Urgent care and or call her primary care doctor. Appt is Monday07/13/2022. Normal [facility] Tele[facility] En[facility]on 2022 [employer] Authentication Interface Message Text Situation: Pt called states she is unsure how to flush gall bladder tube since it was changed yesterday. Background: 07/05/22 Procedure: Cholecystogram with catheter exchange Assessment: See triage Recommendation: Contacted IR care transitions nurse, Dr Hollis advised for pt to contact clinic in morning for syringes, instructions for flushing, and nursing visits if needed. Contacted pt and advised as pre Dr Hollis. Advised to call back tonight for any new sx or concerns. Pt stated understanding, agreeable. Routing to clinic, please contact pt to assist. In order to prevent delays in care, please forward this message to your clinic nurse pool for any required follow up. Thank you. Reason for Disposition [1] Caller has URGENT question AND [2] triager unable to answer question Answer Assessment - Initial Assessment Questions 1. SYMPTOM: What's the main symptom you're concerned about? (e.g., redness, pain, drainage) Pt called states she had gall bladder drainage bag changed yesterday, doesn't know how to flush it and was not given extra syringes so is reusing them. 2. ONSET: When did question start? Is suppose to flush through the valve morning and evening. Did not do it this morning. 3. SURGERY: What surgery was performed? Procedure to change the valve and bag on tube going into gall bladder 4. DATE of SURGERY: When was surgery performed? Yesterday 5. INCISION SITE: Where is the incision located? Top right abdomen 6. REDNESS: Is there any redness at the incision site? If yes, ask: How wide across is the redness? (Inches, centimeters) No 7. PAIN: Is there any pain? If Yes, ask: How bad is it? (Scale 1-10; or mild, moderate, severe) Yes worse when moving around 3-8/10 stabbing pain 8. BLEEDING: Is there any bleeding? If Yes, ask: How much? and Where? No 9. DRAINAGE: Is there any drainage from the incision site? If yes, ask: What color and how much? (e.g., red, cloudy, pus; drops, teaspoon) 90 cc drainage in bag this morning, 70 cc tonight. 10. FEVER: Do you have a fever? If Yes, ask: What is your temperature, how was it measured, and when did it start? No 11. OTHER SYMPTOMS: Do you have any other symptoms? (e.g., shaking chills, weakness, rash elsewhere on body) No Protocols used: Post-Op Incision Symptoms and Cdpvqvzze-J-KD Normal [facility] [employer] Utility Worker Authentication Interface Message Text Sindy Ratliff Patient: Gerry Victoria [phone] Ms. Victoria has an appt grace/Ironter on 07/13/2022 at 2:45 pm. Pt complaining about severe pain last night, when she moved, it was an ache. She did not tell me where the pain was coming from, when I asked her. She stated that today she feels better, but she was concerned about the pain she experienced last night 07/05/2022. Normal [facility] RF Biliary ducts Views W con trast via existing catheteron 07-05-2022 Marcella Fernando MD - 07/05/2022 EXAMINATION: XA CHOLANGIOGRAM EXISTING ACCESS (RHETT) 07/05/2022 03:27 PM CLINICAL HISTORY: Rad Procedure required: = cholangiogram through existing perc merlyn tube,eval for open cystic duct ASSOCIATED DIAGNOSIS: Acute cholecystitis ORDERING PROVIDER: NIKITA HEIN TECHNOLOGISTS NOTE: 10F x 24cm Single Step Drainage Catheter Exchange. INTRA-PROCEDURE MEDS: iohexol (OMNIPAQUE) 350 MG/ML injection 15 mL Route: Other SEDATION TIME: Start time: Stop time: INFORMED CONSENT: Written informed consent was obtained. The procedure, risks, benefits, and alternatives were discussed. All questions were answered. TIMEOUT: Physician led timeout was conducted documenting correct patient, procedure, site, fire risk, antibiotics and allergies. COMPLICATIONS: None ESTIMATED BLOOD LOSS: Less than 10 mL TECHNIQUE: The patient was placed supine on angiography table. The upper abdomen and the existing cholecystostomy catheter were prepped and draped in usual aseptic fashion. Lidocaine was used for local anesthesia. Contrast material was injected and fluoroscopic images obtained. Under fluoroscopic guidance, a glidewire was advanced through the biliary catheter which was removed. A new 10 F All purpose drain catheter was placed over the wire with its pig tail forming in the duodenum. The tube was secured with silk suture and dressed in usual aseptic fashion. Patient tolerated the procedure well without immediate complication and was transferred from the angiography suite in stable condition. FINDINGS: Cholecystogram demonstrates intraluminal location of catheter. There is no definitive flow of contrast into the cystic duct toward the duodenum. IMPRESSION: Uncomplicated cholecystogram with successful exchange of drainage catheter. MACRO: None [facility] Radiology Study observation (narrative) [facility] Telephone Encounteron 2022 [employer] Utility Worker Authentication Interface Message Text Patient returned clinic call. Informed of message per notes below. Patient verbalized understanding and voiced no further questions. [facility] Authentication Interface Message Text would like Ms. Victoria to be scheduled in the office next Monday. Appt has been made on 07/13/2022 at 2:45 pm. Called patient to schedule her appt, so I left a voice message, I gave her my name, number and time I left the voice message. Ms. Victoria returned my call and accepted the appt date and time. Normal [facility] Office Visit (Cardiology)on 06-30-2022 Follow-up visit Diagnoses/Problems Assessed Palpitation (785.1) (R00.2) Essential hypertension, benign (401.1) (I10) Hyperlipidemia (272.4) (E78.5) Hypothyroid (244.9) (E03.9) Class 1 obesity with body mass index (BMI) of 31.0 to 31.9 in adult (278.00,V85.31) (E66.9,Z68.31) Former smoker (V15.82) (Z87.891) 2010 Drug rash (693.0) (L27.0) Type [address] elevation (410.70) (I21.A1) Orders Class 1 obesity with body mass index (BMI) of 31.0 to 31.9 in adult Healthy Weight Tips; Status:Complete - Retrospective Authorization; Done: 30Jun2022 Some eating tips that can help you lose weight.; Status:Complete - Retrospective Authorization; Done: 30Jun2022 Essential hypertension, benign, Hyperlipidemia Renew: Aspirin EC 81 MG Oral Tablet Delayed Release; TAKE 1 TABLET DAILY Essential hypertension, benign, Palpitation Start: Atenolol 50 MG Oral Tablet; TAKE 1 TABLET DAILY IO EKG Electrocardiogram- 12 Lead; Status:Complete; Done: [id number] SocHx: Former smoker Tobacco Use Screening; Status:Complete; Done: 28Eua2441 Tobacco Use Screening; Status:Complete; Done: 15Vvz0609 Unlinked Stop: Losartan Potassium 25 MG Oral Tablet Stop: Toprol XL 25 MG Oral Tablet Extended Release 24 Hour (Metoprolol Succinate ER) Patient Instructions Please bring all medicines, vitamins, and herbal supplements with you when you come to the office. Prescriptions will not be filled unless you are compliant with your follow up appointments or have a follow up appointment scheduled as per instruction of your physician. Refills should be requested at the time of your visit. Hold Losartan 25 mg Stop Toprol and resume Atenolol Can take Claritin 10 mg as directed otc Retrieve echo from [facility] Follow up in 3 months The provider reviewed the following test(s) and result(s) with the patient: ECG Chief Complaint GERRY VICTORIA is being seen for a consultation for atrial flutter and palpitations. F/u heart cath done in [facility]. History of Present Illness Patient is here for cardiovascular evaluation following recent hospitalization for what appeared to be acute cholecystitis. Records were retrieved and reviewed. Patient presented to [facility] with symptoms of abdominal pain and was diagnosed with what appeared to be gallbladder disease and peritonitis. She was transferred to [facility] where she underwent work-up. Apparently a gallbladder drain was placed with plan to proceed with cholecystectomy at a later date. During that hospitalization the patient noted to have borderline abnormal EKG and elevated troponin which led to a cardiac catheterization that showed only mild disease. There is some notation about some regional motion abnormality but no echocardiogram was available for me to review. Clearly it appears that the patient had a type II myocardial infarction due to sepsis. 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 She reported since then she has developed significant rash in her arm and lower extremity. She also has been describing intermittent episodes of palpitation. She denies chest pain, she denies lightheadedness, dizziness or syncope. Assessment 1. Recent presentation with type II myocardial infarction. Cardiac catheterization showed mild atherosclerotic coronary artery disease 2. Hypertension 3. Hyperlipidemia 4. Cholecystitis patient still have gallbladder drain in 5. Skin rash following recent adjustment of her medication unclear whether it is related to metoprolol or losartan 6. Intermittent episode of palpitation Plan 1. Considering the patient recent what appeared drug-induced allergic reaction I suggested the patient she can go back to her original dose of atenolol 50 mg daily and discontinue metoprolol and losartan for now to see if her drug rash will improve 2. Continue with risk factor adjustment 3. I will follow the patient back in 3 months for reassessment 4. The patient to keep her appointment with [facility] surgery for upcoming procedure of cholecystectomy and gallbladder drainage removal 5. I advised the patient she can use some krik-koo-oqfhvie Claritin to address her what appeared to be drug induced allergic reaction Surgical History Problems History of Complete colonoscopy 2020 History of Hysterectomy History of Knee replacement Current Meds Medication NameInstruction Acetaminophen 325 MG Oral TabletTAKE 1 TO 2 TABLETS EVERY 4 HOURS NEEDED Amitriptyline HCl - 50 MG Oral TabletTAKE 1 TABLET AT BEDTIME. Aspirin EC 81 MG Oral Tablet Delayed ReleaseTAKE 1 TABLET DAILY. Atorvastatin Calcium 40 MG Oral TabletTAKE 1 TABLET AT BEDTIME. Escitalopram Oxalate 10 MG Oral TabletTAKE 1 TABLET DAILY. Gabapentin 100 MG TABSTAKE 1 TABLET 3 TIMES DAILY. Levothyroxine Sodium 50 MCG Oral TabletTAKE 1 TABLET DAILY. Losartan Potassium 25 MG Oral TabletTake 1 tablet daily Omeprazole 20 MG Oral Capsule Delayed ReleaseTAKE 1 CA (more content not included)... Normal [facility] Tobacco Screening.on 023 Adult depression screening assessment No [facility] 600 DO Work Phone: Fall risk assessment a) No falls within the last year [facility] 600 DO Work Phone: Tobacco use status [facility] b) No [facility] 600 DO Work Phone: Telephone Encounteron 2022 [employer] Utility Worker Authentication Interface Message Text Pt called c/o sx of poor leg circulation,and Gaudencio spoke to her to triage the patient. Normal [facility] Addendum Noteon 06-18-2022 [employer] Utility Worker Authentication Interface Message Text Addended by: NIKITA HEIN on: 06/18/2022 03:47 PM Modules accepted: Orders, Level of Service Normal [facility] Telephone Encounteron 2022 [employer] Utility Worker Authentication Interface Message Text Sophy transferred phone call to me, when the patient and I started talk I realized it was the patient I had Sophy working on since Dr. Hein seen her in clinic on . Sophy said she spoke to patient yesterday, so I just told her what Sophy told me that Dr. Hein will handle the Rx to have the scan done out where she lives and that [facility] will get it to her in the mail by Monday Normal [facility] Telephone Encounteron 2022 [employer] Utility Worker Authentication Interface Message Text Sindy Morales, Patient: Gerry Victoria [phone] Ms. Victoria had a visit with Dr. Conley on Monday06/15/2022, seen by Dr. Hein in yesterday's clinic. Questions: Ultrasound order was placed for Ms. Victoria, do she have to come her to [facility] to have the ultrasound, or can she have the ultrasound done in [place]? (there is not a [facility] in [place]) Medication refill of Ropinirole 2mg 1-tab QD was not received by her pharmacy, can you call in the prescription to my pharmacy at ([facility] ) [phone]?. I am waiting for Carmen, or and or Dr. Conley to respond. Sophy Pt was told that Dr. Hein was out of town and that she will receive the prescription in the mail. I will call the patient to find out what hospitals she will be going to in [place] [phone] fax:[phone] Gaudencio spoke to her about the prescription and to contact her pharmacy about the ropinirole 2 mg to [facility]. Addendum: IR procedure, Gaudencio will follow-up with [facility] to see if they can do the IR procedure, we will submit or fax orders at that time. Normal [facility] CBC panel Auto (Bld)on 06-15 Erythrocyte distribution wid th (RBC) [Ratio] 15.0 % High 11.5 - 14.5 % [facility] Hematocrit (Bld) [Volume fraction] 26.4 % Low 3 6.0 - 46.0 % [facility] Hemoglobin (Bld) [Mass/Vol] 9.0 g/dL Low 12.0 - 1 5.0 g/dL [facility] Interpretation and review of laboratory results Abnormal [facility] MCH (RBC) [Entitic mass] 27.6 pg 26.0 - 34.0 pg [facility] MCHC (RBC) [Mass/Vol] 34.1 g/dL 32.0 - 35.9 g/ dL [facility] MCV (RBC) [Entitic vol] 81 fL 80 - 100 fL [facility] Platelet mean volume (Bld) [ Entitic vol] 7.8 fL 7.5 - 11.2 fL [facility] Platelets (Bld) [#/Vol] 262 10*3/uL 150 - 400 K /uL [facility] RBC (Bld) [#/Vol] 3.26 10*6/uL Low [facility] WBC (Bld) [#/Vol] 6.2 10*3/uL 4.5 - 11.5 K/uL [facility] COMPLETE BLOOD COUNTon 06-15 Erythrocyte distribution wid th (RBC) [Ratio] 15.0 % High 11.5-14.5 The [facility] Comment on above: Performed By: #### 8 2948 #### NURSING GLUCOSE PROGRAM [address] [place], [address] Hematocrit (Bld) [Volume fraction] 26.4 % Low 3 6.0-46.0 The [facility] Comment on above: Performed By: #### 8 2948 #### NURSING GLUCOSE PROGRAM [address] [place], [address] Hemoglobin (Bld) [Mass/Vol] 9.0 g/dL Low 12.0-15. 0 The [facility] Comment on above: Performed By: #### 8 2948 #### NURSING GLUCOSE PROGRAM [address] [place], [address] MCH (RBC) [Entitic mass] 27.6 pg Normal 26.0-34.0 The [facility] Comment on above: Performed By: #### 8 2948 #### NURSING GLUCOSE PROGRAM [address] [place], [address] MCHC (RBC) [Mass/Vol] 34.1 g/dL Normal 32.0-35.9 The [facility] Comment on above: Performed By: #### 8 2948 #### NURSING GLUCOSE PROGRAM [address] [place], [address] MCV (RBC) [Entitic vol] 81 fL Normal 80-100 T he [facility] Comment on above: Performed By: #### 8 2948 #### NURSING GLUCOSE PROGRAM [address] [place], [address] Platelet mean volume (Bld) [ Entitic vol] 7.8 fL Normal 7.5-11.2 The [facility] Comment on above: Performed By: #### 8 2948 #### NURSING GLUCOSE PROGRAM [address] [place], [address] Platelets (Bld) [#/Vol] 262 10*3/uL Normal 150-400 The [facility] Comment on above: Performed By: #### 8 2948 #### NURSING GLUCOSE PROGRAM [address] [place], [address] RBC (Bld) [#/Vol] 3.26 10*6/uL Low 4.00-5.20 The [facility] Comment on above: Performed By: #### 8 2948 #### NURSING GLUCOSE PROGRAM [address] [place], [address] WBC (Bld) [#/Vol] 6.2 10*3/uL Normal 4.5-11.5 The [facility] Comment on above: Performed By: #### 8 2948 #### NURSING GLUCOSE PROGRAM [address] [place], [address] PROTHROMBIN TIME AND INRon 0 - INR Coag (PPP) [Relative time] 1.08 {INR} Normal 0.90- 1.10 The [facility] Comment on above: Performed By: #### 8 2948 #### NURSING GLUCOSE PROGRAM [address] [place], [address] PT Coag (PPP) [Time] 12.2 s Normal 9.7-12.9 The [facility] Comment on above: Performed By: #### 8 2948 #### NURSING GLUCOSE PROGRAM [address] [place], [address] INR Coag (PPP) [Relative time] 1.08 {INR} 0.90 - 1.10 [facility] Interpretation and review of laboratory results Normal [facility] PT Coag (PPP) [Time] 12.2 s r [facility] Telephone Encounteron 2022 [employer] Utility Worker Authentication Interface Message Text Situation: pt is calling for constipation, difficulty breathing, nausea Background: See nurse triage Assessment: See nurse triage Recommendation: pt advised to go to ER. they verbalized understanding and agreed to plan of care. Routing to providers as FYI Reason for Disposition Difficulty breathing Major surgery in the past month Recent major surgery ( heart cath), SOB, Nausea Answer Assessment - Initial Assessment Questions 1. SYMPTOM: What's the main symptom you're concerned about? (e.g., pain, fever, vomiting) Constipation 2. ONSET: When did symptoms start? Last BM was yesterday 05/26/22 ( but it was vary small) Last regular BM was on 05/25/22 ( when they we discharged) 3. SURGERY: What surgery was performed? Heart cath 4. DATE of SURGERY: When was surgery performed? Heart cath done on 05/24/22 5. ANESTHESIA: What type of anesthesia did you have? (e.g., general, spinal, epidural, local) General 6. PAIN: Is there any pain? If Yes, ask: How bad is it? (Scale 1-10; or mild, moderate, severe) Where the tube is placed in gallbladder, ( currently 0/10, when its tugged on 06/03) sharp and limited, doesn't last 7. FEVER: Do you have a fever? If Yes, ask: What is your temperature, how was it measured, and when did it start? No 8. VOMITING: Is there any vomiting? If yes, ask: How many times? Nausea this am 9. BLEEDING: Is there any bleeding? If Yes, ask: How much? and Where? No bleeding from incisions 10. OTHER SYMPTOMS: Do you have any other symptoms? (e.g., drainage from wound, painful urination, constipation) No drainage from incisions Only thing to note of any of the incisions is that the incisions on right side of neck pt notes a small lump the size of a pin head, ( no pain ( except to touch) or redness around it) sob with movement Denies lightheadedness/ dizziness Denies chest pain Answer Assessment - Initial Assessment Questions 1. RESPIRATORY STATUS: Describe your breathing? (e.g., wheezing, shortness of breath, unable to speak, severe coughing) When pt is up moving around pt gets winded Takes about a one to two minutes of movement to become short of breath Better then it was before the heart cath 2. ONSET: When did this breathing problem begin? Started shortly after pt got home 3. PATTERN Does the difficult breathing come and go, or has it been constant since it started? Comes and goes with movement 4. SEVERITY: How bad is your breathing? (e.g., mild, moderate, severe) - MILD: No SOB at rest, mild SOB with walking, speaks normally in sentences, can lay down, no retractions, pulse < 100. - MODERATE: SOB at rest, SOB with minimal exertion and prefers to sit, cannot lie down flat, speaks in phrases, mild retractions, audible wheezing, pulse 100-120. - SEVERE: Very SOB at rest, speaks in single words, struggling to breathe, sitting hunched forward, retractions, pulse > 120 Mild 5. RECURRENT SYMPTOM: Have you had difficulty breathing before? If Yes, ask: When was the last time? and What happened that time? Yes, previous cardiac issues 6. CARDIAC HISTORY: Do you have any history of heart disease? 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 LUNG HISTORY: Do you have any history of lung disease? (e.g., pulmonary embolus, asthma, emphysema) See above 8. CAUSE: What do you think is causing the breathing problem? See above 9. OTHER SYMPTOMS: Do you have any other symptoms? (e.g., dizziness, runny nose, cough, chest pain, fever) See previous assessment 10. : Is there any chance you are ? When was your last menstrual period? Not assessed 11. TRAVEL: Have you traveled out of the country in the last month? (e.g., travel history, exposures) Not assessed Protocols used: Post-Op Symptoms and Twhdkvnoy-B-ZN, Breathing Bpfmmqzjev-K-EJ Normal [facility] BASIC METABOLIC PANELon 03-0 Anion gap [Moles/Vol] 15 mmol/L Normal 10-20 [facility] Comment on above: Performed By: #### C H8, HEPATIC #### [facility] [address] [place] [address], Calcium [Mass/Vol] 8.4 mg/dL Normal 8.4-10.4 The [facility] Comment on above: Performed By: #### C H8, HEPATIC #### [facility] [address] [place] [address], Chloride [Moles/Vol] 100 mmol/L Normal 97-111 [facility] Comment on above: Performed By: #### C H8, HEPATIC #### [facility] [address] [place] [address], CO2 [Moles/Vol] 27 mmol/L Normal 21-30 [facility] Comment on above: Performed By: #### C H8, HEPATIC #### [facility] [address] [place] [address], Creatinine [Mass/Vol] 0.76 mg/dL Normal 0.50-1.10 [facility] Comment on above: Performed By: #### C H8, HEPATIC #### [facility] [address] [place] [address], ESTIMATED GFR (CKD-EPI) 85 mL/min/1.73sqm Normal >=60 The [facility] Comment on above: Result Comment: 2020 CKD EPI Equation using Creatinine without Race Comment: Estimated glomerular filtration rate (eGFR) is calculated without a race coefficient. Values should be interpreted in the context of the patient's full clinical presentation. Reference: 1. Leonardo C, Makayla M, Ilya DC, et al.. A Unifying Approach for GFR Estimation: Recommendations of the NKF-ASN Task Force on Reassessing the Inclusion of Race in Diagnosing Kidney Disease. [place] Journal of Kidney Diseases 2021;79(2):268-88.e1. 2. N Engl J Med 1 Vol. 385 Issue 19 Pages 9104-4720 Performed By: #### C H8, HEPATIC #### [facility] [address] [place] [address], Glucose [Mass/Vol] 94 mg/dL Normal 80-116 [facility] Comment on above: Performed By: #### C H8, HEPATIC #### [facility] [address] [place] [address], Potassium [Moles/Vol] 3.5 mmol/L Normal 3.3-5.3 [facility] Comment on above: Performed By: #### C H8, HEPATIC #### [facility] [address] [place] [address], Sodium [Moles/Vol] 138 mmol/L Normal 135-148 [facility] Comment on above: Performed By: #### C H8, HEPATIC #### [facility] [address] [place] [address], Urea nitrogen [Mass/Vol] 6 mg/dL Low 8-22 [facility] Comment on above: Performed By: #### C H8, HEPATIC #### [facility] [address] [place] [address], COMPLETE BLOOD COUNTon 05-25 Erythrocyte distribution wid th (RBC) [Ratio] 15.2 % High 11.5-14.5 [facility] Comment on above: Performed By: #### C H8, HEPATIC #### [facility] [address] [place] [address], Hematocrit (Bld) [Volume fraction] 34.5 % Low 3 6.0-46.0 [facility] Comment on above: Performed By: #### C H8, HEPATIC #### [facility] [address] [place], [place], Hemoglobin (Bld) [Mass/Vol] 12.0 g/dL Normal 12.0-15. 0 [facility] Comment on above: Performed By: #### C H8, HEPATIC #### [facility] [address] [place], [place], MCH (RBC) [Entitic mass] 28.6 pg Normal 26.0-34.0 The [facility] Comment on above: Performed By: #### C H8, HEPATIC #### [facility] [address] [place], [place], MCHC (RBC) [Mass/Vol] 34.8 g/dL Normal 32.0-35.9 The [facility] Comment on above: Performed By: #### C H8, HEPATIC #### [facility] [address] [place] [address], MCV (RBC) [Entitic vol] 82 fL Normal 80-100 [facility] Comment on above: Performed By: #### C H8, HEPATIC #### [facility] [address] [place] [address], Platelet mean volume (Bld) [ Entitic vol] 7.7 fL Normal 7.5-11.2 The [facility] Comment on above: Performed By: #### C H8, HEPATIC #### [facility] [address] [place], [place], Platelets (Bld) [#/Vol] 348 10*3/uL Normal 150-400 The [facility] Comment on above: Performed By: #### C H8, HEPATIC #### [facility] [address] [place], [place], RBC (Bld) [#/Vol] 4.19 10*6/uL Normal 4.00-5.20 The [facility] Comment on above: Performed By: #### C H8, HEPATIC #### [facility] [address] [place], [place], WBC (Bld) [#/Vol] 8.7 10*3/uL Normal 4.5-11.5 [facility] Comment on above: Performed By: #### C H8, HEPATIC #### S PATHOLOGY LABORATORY [address] [place] [address], Care Plan Noteon 05-25-2022 [employer] Utility Worker Authentication Interface Message Text Problem: Routine Care: Goal: Patient care will be managed and maintained throughout hospital stay per unit specific routine care procedure Outcome: Progressing Problem: Acute Pain: Goal: Ability to identify pain intensity on a pain scale and rate it consistently will be achieved and maintained Outcome: Progressing Goal: Acceptable level of pain which allows the patient to achieve functional outcome goals Outcome: Progressing Problem: Altered Elimination: Goal: Establishment of individualized urinary routine Outcome: Progressing Problem: Risk for Infection: Goal: Risk for infection will be reduced Outcome: Progressing Problem: Impaired Skin Integrity: Goal: Skin integrity will improve and/or be maintained Outcome: Progressing Problem: VTE Prophylaxis: Goal: Will be free of DVT Outcome: Progressing Problem: Safety: Goal: Patient will remain free of falls during hospital stay Outcome: Progressing Note: Bed alarm on and call nix within reach Goal: Free from injury during hospitalization Outcome: Progressing Problem: Discharge Planning: Goal: Discharge needs of the adult patient will be met Outcome: Progressing Problem: Alteration in Tissue Perfusion: Cardiac: Goal: Promote adequate perfusion and limit complications resulting from myocardial oxygen supply, demand and imbalance Outcome: Progressing Normal [facility], FINGERSTICK-IN OFFI CEon 05-25-2022 Glucose [Mass/Vol] 77 mg/dL Low 80-116 [facility] Comment on above: Performed By: #### Meenu H8, HEPATIC #### [facility] [address] [place] [address], Glucose [Mass/Vol] 92 mg/dL Normal 80-116 [facility] Comment on above: Performed By: #### 8 [id number] #### NURSING GLUCOSE PROGRAM [address] [place], [place], Glucose [Mass/Vol] 93 mg/dL Normal 80-116 [facility] Comment on above: Performed By: #### C H8, HEPATIC #### [facility] [address] [place] [address], MAGNESIUMon 05-25-2022 Magnesium [Mass/Vol] 2.0 mg/dL Normal 1.6-2.8 [facility] Comment on above: Performed By: #### C H8, HEPATIC #### [facility] [address] [place] [address], Progress Noteson 05-25-2022 [employer] Utility Worker Authentication Interface Message Text Pt is rec to dc home with no homegoing needs. Pt reportedly has sister who can provide PRN assistance. Medical team to please notify SW if any SW or DC concerns arise. Franky BATEMAN,HIGH WORKER Normal [facility] [employer] Utility Worker Authentication Interface Message Text Accuchecks not uploading into [employer]- are as follows 2000- glucose 94 0000- glucose 93 0400- glucose 93 Normal [facility] [employer] [facility] [employer] Worker Authentication Interface Message Text Pt emptied and flushed drain with RN supervision. No further questions at this time, will; reinforce in the AM. 0630 Pt flushed and emptied drain w/ RN supervision. No further questions at this time, written instructions for both provided to pt. Normal [facility] [employer] [facility] BASIC METABOLIC PANELon 04-28 Anion gap [Moles/Vol] 18 mmol/L Normal 10-20 [facility] Comment on above: Performed By: #### H STRP #### S PATHOLOGY LABORATORY [address] [place] [address], Calcium [Mass/Vol] 8.6 mg/dL Normal 8.4-10.4 [facility] Comment on above: Performed By: #### H STRP #### [facility] [address] [place] [address], Chloride [Moles/Vol] 100 mmol/L Normal 97-111 [facility] Comment on above: Performed By: #### H STRP #### [facility] [address] [place], [place], CO2 [Moles/Vol] 24 mmol/L Normal 21-30 [facility] Comment on above: Performed By: #### H STRP #### [facility] [address] [place], [place], Creatinine [Mass/Vol] 0.66 mg/dL Normal 0.50-1.10 [facility] Comment on above: Performed By: #### H STRP #### [facility] [address] [place] [address], ESTIMATED GFR (CKD-EPI) 95 mL/min/1.73sqm Normal >=60 [facility] Comment on above: Result Comment: 2020 CKD EPI Equation using Creatinine without Race Comment: Estimated glomerular filtration rate (eGFR) is calculated without a race coefficient. Values should be interpreted in the context of the patient's full clinical presentation. Reference: 1. Leonardo C, Makayla M, Ilya FLYNN, et al.. A Unifying Approach for GFR Estimation: Recommendations of the NKF-ASN Task Force on Reassessing the Inclusion of Race in Diagnosing Kidney Disease. [place] Journal of Kidney Diseases 2021;79(2):268-88.e1. 2. N Engl J Med 1 Vol. 385 Issue 19 Pages 7057-9338 Performed By: #### H STRP #### S PATHOLOGY LABORATORY [address] [place] [address], Glucose [Mass/Vol] 88 mg/dL Normal 80-116 [facility] Comment on above: Performed By: #### H STRP #### [facility] [address] [place] [address], Potassium [Moles/Vol] 3.5 mmol/L Normal 3.3-5.3 [facility] Comment on above: Performed By: #### H STRP #### [facility] [address] [place] [address], Sodium [Moles/Vol] 138 mmol/L Normal 135-148 [facility] Comment on above: Performed By: #### H STRP #### [facility] [address] [place] [address], Urea nitrogen [Mass/Vol] 5 mg/dL Low 8-22 [facility] Comment on above: Performed By: #### H STRP #### [facility] [address] [place] [address], COMPLETE BLOOD COUNTon 05-24 Erythrocyte distribution wid th (RBC) [Ratio] 15.1 % High 11.5-14.5 [facility] Comment on above: Performed By: #### C BC ####[facility] PATHOLOGY [id number] [place], [place], Hematocrit (Bld) [Volume fraction] 35.5 % Low 3 6.0-46.0 [facility] Comment on above: Performed By: #### C BC ####[facility] PATHOLOGY [id number] [place], [place], Hemoglobin (Bld) [Mass/Vol] 11.8 g/dL Low 12.0-15. 0 [facility] Comment on above: Performed By: #### C BC ####[facility] PATHOLOGY [id number] [place], [place], MCH (RBC) [Entitic mass] 27.2 pg Normal 26.0-34.0 [facility] Comment on above: Performed By: #### C BC ####[facility] PATHOLOGY [id number] [place], [place], MCHC (RBC) [Mass/Vol] 33.2 g/dL Normal 32.0-35.9 [facility] Comment on above: Performed By: #### C BC ####[facility] PATHOLOGY [id number] [place], [place], MCV (RBC) [Entitic vol] 82 fL Normal 80-100 [facility] Comment on above: Performed By: #### C BC ####[facility] PATHOLOGY [id number] [place], [place], Platelet mean volume (Bld) [ Entitic vol] 7.6 fL Normal 7.5-11.2 [facility] Comment on above: Performed By: #### C BC ####[facility] PATHOLOGY [id number] [place], [place], Platelets (Bld) [#/Vol] 375 10*3/uL Normal 150-400 [facility] Comment on above: Performed By: #### C BC ####[facility] PATHOLOGY [id number] [place], [place], RBC (Bld) [#/Vol] 4.32 10*6/uL Normal 4.00-5.20 [facility] Comment on above: Performed By: #### C BC ####[facility] PATH[facility] [id number] [place], [place], WBC (Bld) [#/Vol] 9.0 10*3/uL Normal 4.5-11.5 [facility] Comment on above: Performed By: #### C BC ####[facility] PATHOLOGY [id number] [place], [place], Care Plan Noteon 05-24-2022 [employer] Utility Worker Authentication Interface Message Text Problem: Routine Care: Goal: Patient care will be managed and maintained throughout hospital stay per unit specific routine care procedure Outcome: Progressing Note: Patient rounded on per hourly rounding unit protocol, call light within reach, siderails in place, encouraged to call for assistance as needed. Problem: Acute Pain: Goal: Ability to identify pain intensity on a pain scale and rate it consistently will be achieved and maintained Outcome: Progressing Note: Patient consistently rates pain using numeric pain scale. Pain managed at this time through PRN medications. Goal: Acceptable level of pain which allows the patient to achieve functional outcome goals Outcome: Progressing Problem: Altered Elimination: Goal: Establishment of individualized urinary routine Outcome: Progressing Problem: Risk for Infection: Goal: Risk for infection will be reduced Outcome: Progressing Problem: Impaired Skin Integrity: Goal: Skin integrity will improve and/or be maintained Outcome: Progressing Note: Skin intact Problem: VTE Prophylaxis: Goal: Will be free of DVT Outcome: Progressing Problem: Safety: Goal: Patient will remain free of falls during hospital stay Outcome: Progressing Goal: Free from injury during hospitalization Outcome: Progressing Problem: Discharge Planning: Goal: Discharge needs of the adult patient will be met Outcome: Progressing Problem: Alteration in Tissue Perfusion: Cardiac: Goal: Promote adequate perfusion and limit complications resulting from myocardial oxygen supply, demand and imbalance Outcome: Progressing Normal [facility] GLUCOSE, FINGERSTICK-IN OFFI CEon 05-24-2022 Glucose [Mass/Vol] 94 mg/dL Normal 80-116 [facility] Comment on above: Performed By: #### 8 2948 ####NURSING GLUCOSE [id number] [place], [place], Glucose [Mass/Vol] 76 mg/dL Low 80-116 [facility] Comment on above: Performed By: #### H STRP #### [facility] [address] [place], [place], Glucose [Mass/Vol] 84 mg/dL Normal 80-116 [facility] Comment on above: Performed By: #### 8 2948 #### NURSING GLUCOSE PROGRAM [address] [place], [place], Glucose [Mass/Vol] 95 mg/dL Normal 80-116 [facility] Comment on above: Performed By: #### C H8, HEPATIC #### [facility] [address] [place], [place], Glucose [Mass/Vol] 93 mg/dL Normal 80-116 [facility] Comment on above: Performed By: #### Meenu H8, HEPATIC #### [facility] [address] [place], [place], Glucose [Mass/Vol] 97 mg/dL Normal 80-116 [facility] Comment on above: Performed By: #### H STRP #### [facility] [address] [place], [place], MAGNESIUMon 05-24-2022 Magnesium [Mass/Vol] 1.9 mg/dL Normal 1.6-2.8 [facility] Comment on above: Performed By: #### H STRP #### [facility] [address] [place], [place], Progress Noteson 05-24-2022 [employer] Utility Worker Authentication Interface Message Text [facility] DIVISION OF ACUTE CARE SURGE RY GENERAL INFORMATION EMERGENCY GENERAL SURGERY NOTE Patient Name: Gerry Victoria Admission Date: 05/16/2022 Patient seen and examined on 05/24/2022 INTERVAL HISTORY/EVENTS Background Narrative: Gerry Victoria is a 66 year old female with PMH of hypertension, RLS, GERD, and h/o paroxysmal SVT who presented to [facility] with epigastric pain with nausea and vomiting. Patient describes onset of pain on prior day that has increased since then. Shortly after onset of pain, patient experienced nausea and persistent vomiting, now unable to tolerate PO intake. Denies fevers, chills. She presented to [facility] where EKG demonstrated 'hyperacute T waves' in multiple leads without evidence of STEMI. Troponin originally 139, then 381 on repeat. CTA was performed and did not reveal dissection or PE. CT did demonstrate acute inflammation of the gallbladder with a stone at the neck. A central line was placed for resuscitation purposes and the patient was transferred to [facility] for further evaluation. Prior to transfer, lab work without leukocytosis (10.7) and LFTs/Lipase without abnormality. ACS consulted upon arrival to [facility] for cholecystitis. She was admitted to the SDU for telemetry under EGS but transferred to [facility] on 05/20/22 Hospital Course/Procedures: 05/16/2022: Transferred from [facility] ED with cholecystitis, up-trending troponin, and unclear EKG findings. Up-trending leukocytosis, down-trending troponin by PM. Cardiology following. Zosyn started. 05/17/2022: rCT with worsening gallbladder inflammation /o free air or rupture. Percutaneous cholecystotomy tube placement with IR. 05/19/2022: Bilious emesis, NGT placed 05/20/2022: Transferred to [facility] 05/21/2022:To stop zosyn today day 06/2805/22/2022: YANN, ongoing bilious NGT output 05/23/2022: [facility] with mild non-obstructive diffuse coronary artery disease. NGT placed to gravity. Events in last 24 hours: NAEOn. [facility] completed yesterday with mild non-obstructive diffuse coronary artery disease. Reports she is passing flatus and BM x 2 over last 24 hours. Denies n/v. Reports pain is controlled. Will remove NGT tube and advance diet today. PHYSICAL EXAM Vitals: Vital sign ranges over the past 24 hours (retrieved 05/24/2022 at 8:59 AM): Tmax (24 hours): 98.5 ???F (36.9 ???C) Pulse Av.3 Min: 85 Max: 105 Systolic (24hrs), Av , Min:134 , Max:160 Diastolic (24hrs), Av, Min:69, Max:104 MAP (mmHg) Av.3 mmHg Min: 94 mmHg Max: 114 mmHg Resp Av.2 Min: 12 Max: 26 SpO2 Av.5 % Min: 94 % Max: 100 % Intake/Output Summary (Last 24 hours) at 05/24/2022 0859 Last data filed at 05/24/2022 0642 Gross per 24 hour Intake 1030 ml Output 1350 ml Net -320 ml NGT tube with 50cc out over last 24 hours. RUQ drain with bilious 275cc out over last 24 hours. Physical Exam: -General - Seen resting supine in bed in NAD -Neurologic - No focal deficits, clear speech -Cardiovascular - not tachycardic per chart review -Respiratory - breathing comfortably on room air, saturating 100% per chart review -Abdomen - Soft, mildly tender to RUQ around drain incision, ND, not peritonitic, perc merlyn in place with clean dressing over top with bilious output, NGT in place -Psychiatric - normal affect -Extremities - Chronic venous stasis to bilateral LE LABORATORY RESULTS (LAST 24 HOURS) CBC/PT/INR WBC RBC Hgb Hct MCV RDW Plt PT aPTT INR 05/24/226 9.0 4.32 11.8 35.5 82 15.1 375 Basic Metabolic Panel Na K Cl CO2 Gap Glu BUN Cr Ca Mg PO4 05/24/226 1.9 05/24/2235 138 3.5 100 24 18 88 5 0.66 8.6 Arterial Blood Gases None IMAGING RESULTS - (PERSONALLY REVIEWED) No new imaging over last 24 hours DIAGNOSIS AND PLAN Diagnoses: Acute Cholecystitis Acute abdominal pain Type II NE Atypical takatsubo PMHx: GERD, HTN, HLD, spinal stenosis, paroxysmal SVT, overactive bladder, RLS, stasis dermatitis, PARTH, fibromyalgia, chronic fatigue syndrome Assessment: 66yo female with acute cholecystitis and associated pain. Admission complicated by initial up-trending troponin and abnormal EKG findings. Troponin now down-trending. Echo 05/16 with findings of LVEF 55% and possible atypical takatsubo for which Cardiology is following. Patient is high risk for OR per cards, therefore, a percutaneous cholecystostomy was placed by IR on 05/17, now with appropriate bilious output. Completed course of IV Zosyn 05/16/22 - 05/21/2022. LHC completed 05/23 showing no obstructive disease. Plan 1. Neurologic - Tylenol q4 PRN, oxycodone q4 PRN f (more content not included)... Normal [facility] [employer] Worker Authentication Interface Message Text Accuchecks not uploading into [employer]- are as follows for prosthetic technician 05/23 1900- 0730: 2000- glucose 95 0000- glucose 97 0400- glucose 93 Normal [facility] BASIC METABOLIC PANELon 04-28 Anion gap [Moles/Vol] 12 mmol/L Normal 10-20 [facility] Comment on above: Performed By: #### H STRP #### [facility] [address] [place], [place], Calcium [Mass/Vol] 8.4 mg/dL Normal 8.4-10.4 [facility] Comment on above: Performed By: #### H STRP #### [facility] [address] [place], [place], Chloride [Moles/Vol] 100 mmol/L Normal 97-111 [facility] Comment on above: Performed By: #### H STRP #### [facility] [address] [place], [place], CO2 [Moles/Vol] 31 mmol/L High 21-30 [facility] Comment on above: Performed By: #### H STRP #### S PATHOLOGY LABORATORY [address] [place], [place], Creatinine [Mass/Vol] 0.65 mg/dL Normal 0.50-1.10 [facility] Comment on above: Performed By: #### H STRP #### S PATHOLOGY LABORATORY [address] [place] [address], ESTIMATED GFR (CKD-EPI) 96 mL/min/1.73sqm Normal >=60 [facility] Comment on above: Result Comment: 2020 CKD EPI Equation using Creatinine without Race Comment: Estimated glomerular filtration rate (eGFR) is calculated without a race coefficient. Values should be interpreted in the context of the patient's full clinical presentation. Reference: 1. Leonardo C, Makayla M, Ilya FLYNN, et al.. A Unifying Approach for GFR Estimation: Recommendations of the NKF-ASN Task Force on Reassessing the Inclusion of Race in Diagnosing Kidney Disease. [place] Journal of Kidney Diseases 2021;79(2):268-88.e1. 2. N Engl J Med 1 Vol. 385 Issue 19 Pages 9754-1530 Performed By: #### H STRP #### S PATHOLOGY LABORATORY [address] [place], [place], Glucose [Mass/Vol] 92 mg/dL Normal 80-116 [facility] Comment on above: Performed By: #### H STRP #### S PATHOLOGY LABORATORY [address] [place], [place], Potassium [Moles/Vol] 3.5 mmol/L Normal 3.3-5.3 [facility] Comment on above: Performed By: #### H STRP #### [facility] [address] [place], [place], Sodium [Moles/Vol] 139 mmol/L Normal 135-148 [facility] Comment on above: Performed By: #### H STRP #### S PATHOLOGY LABORATORY [address] [place] [address], Urea nitrogen [Mass/Vol] 4 mg/dL Low 8-22 [facility] Comment on above: Performed By: #### H STRP #### [facility] PATHOLOGY LABORATORY [address] [place], [place], COMPLETE BLOOD COUNTon 05-23 Erythrocyte distribution wid th (RBC) [Ratio] 14.9 % High 11.5-14.5 [facility] Comment on above: Performed By: #### C BC ####[facility] PATHOLOGY [id number] [place], [place], Hematocrit (Bld) [Volume fraction] 33.2 % Low 3 6.0-46.0 [facility] Comment on above: Performed By: #### C BC ####[facility] PATHOLOGY [id number] [place], [place], Hemoglobin (Bld) [Mass/Vol] 11.1 g/dL Low 12.0-15. 0 [facility] Comment on above: Performed By: #### C BC ####[facility] PATHOLOGY [id number] [place] [address], MCH (RBC) [Entitic mass] 27.4 pg Normal 26.0-34.0 [facility] Comment on above: Performed By: #### C BC ####[facility] PATHOLOGY [id number] [place] [address], MCHC (RBC) [Mass/Vol] 33.4 g/dL Normal 32.0-35.9 The [facility] Comment on above: Performed By: #### C BC ####[facility] PATHOLOGY [id number] [place] [address], MCV (RBC) [Entitic vol] 82 fL Normal 80-100 [facility] Comment on above: Performed By: #### C BC ####[facility] PATHOLOGY [id number] [place] [address], Platelet mean volume (Bld) [Entitic vol] 7.4 fL Low 7.5-11.2 [facility] Comment on above: Performed By: #### C BC ####[facility] PATHOLOGY [id number] [place] [address], [place], Platelets (Bld) [#/Vol] 313 10*3/uL Normal 150-400 The [facility] Comment on above: Performed By: #### C BC ####[facility] PATHOLOGY [id number] [place], [place], RBC (Bld) [#/Vol] 4.04 10*6/uL Normal 4.00-5.20 [facility] Comment on above: Performed By: #### C BC ####[facility] PATHOLOGY [id number] [place], [place], WBC (Bld) [#/Vol] 7.1 10*3/uL Normal 4.5-11.5 [facility] Comment on above: Performed By: #### C BC ####[facility] PATHOLOGY [id number] [place], [place], Care Plan Noteon 05-23-2022 [employer] Utility Worker Authentication Interface Message Text Problem: Routine Care: Goal: Patient care will be managed and maintained throughout hospital stay per unit specific routine care procedure Outcome: Progressing Problem: Acute Pain: Goal: Ability to identify pain intensity on a pain scale and rate it consistently will be achieved and maintained Outcome: Progressing Goal: Acceptable level of pain which allows the patient to achieve functional outcome goals Outcome: Progressing Problem: Altered Elimination: Goal: Establishment of individualized urinary routine Outcome: Progressing Problem: Risk for Infection: Goal: Risk for infection will be reduced Outcome: Progressing Problem: Impaired Skin Integrity: Goal: Skin integrity will improve and/or be maintained Outcome: Progressing Problem: VTE Prophylaxis: Goal: Will be free of DVT Outcome: Progressing Problem: Safety: Goal: Patient will remain free of falls during hospital stay Outcome: Progressing Call light within reach, bed alarm in place Goal: Free from injury during hospitalization Outcome: Progressing Problem: Discharge Planning: Goal: Discharge needs of the adult patient will be met Outcome: Progressing Problem: Alteration in Tissue Perfusion: Cardiac: Goal: Promote adequate perfusion and limit complications resulting from myocardial oxygen supply, demand and imbalance Outcome: Progressing Normal The [facility] tem Consultson 05-23-2022 [employer] Utility Worker Authentication Interface Message Text PHYSICAL THERAPY Attempt at Tx Session this PM is unsuccessful as Patient is off floor in EP for Coronary angiograms w/ poss intervention Will follow up Tawny Peñaloza, PT, MPT (B) [phone] Normal The [facility] [employer] [facility] [employer] Utility Worker Authentication Interface Message Text Initial Adult Inpatient Nutrition Assessment Reason for Visit: High risk patient Nutrition Assessment: Admitting Diagnosis: NSTEMI, cholecystitis. choledocolithiasis Past Medical History: Diagnosis Date Restless leg is allergic to: Allergies Allergen Reactions Adhesives [Bandage Tape] Itching and Redness Cymbalta [Duloxetine Hcl] Agitation Lyrica [Pregabalin] Swelling Nutritionally Significant Meds: colace, nexium, humalog, synthroid, senna, D5 LR @ 100 cc/hr Labs: Basic Metabolic Panel Na K Cl CO2 Gap Glu BUN Cr Ca Mg PO4 05/23/22 013 1.9 05/23/22 013 139 3.5 100 31 12 92 4 0.65 8.4 05/22/22 0032 2.0 05/22/22 003 138 3.6 98 31 13 91 5 0.76 8.7 05/21/22 0124 1.9 05/21/22 012 138 3.2 100 29 12 107 4 0.65 8.1 CBC (last 3 years, up to 5 values) (Last 5 results in the past 3 years) WBC RBC Hgb Hct MCV RDW Plt 05/23/22 0136 7.1 4.04 11.1 33.2 82 14.9 313 05/22/22 0032 7.0 4.17 11.4 34.3 82 15.1 322 05/21/22 0124 5.0 3.67 10.1 30.1 82 15.2 241 05/20/22 0217 4.7 3.36 9.2 27.9 83 15.3 231 05/19/22 0355 5.3 3.41 9.4 28.2 83 15.6 199 LFT's (last 3 years, up to 5 values) T Prot Albumin D Bili T Bili Alk Phos ALT AST 05/19/22 0355 4.7 2.8 0.48 0.9 63 8 18 05/17/22 0411 5.2 3.2 2.30 3.9 72 12 25 05/16/22 0222 6.4 4.0 0.13 0.6 79 11 20 Fingerstick Glucose (last 72 hours) (Last 10 results in the past 72 hours) Glucose 05/23/22 1135 102 05/23/22 0808 105 05/23/22 0402 89 05/23/22 0007 92 05/22/22 2006 78 05/22/22 1648 99 05/22/22 1214 134 05/22/22 0817 111 05/22/22 0359 103 05/21/22 2356 112 Vital sign ranges over the past 24 hours (retrieved 05/23/2022 at 2:40 PM): Tmax (24 hours): 100.3 ???F (37.9 ???C) Pulse Av.8 Min: 72 Max: 95 Systolic (24hrs), Av , Min:144 , Max:174 Diastolic (24hrs), Av, Min:67, Max:96 MAP (mmHg) Av.2 mmHg Min: 88 mmHg Max: 107 mmHg Resp Av Min: 18 Max: 18 SpO2 Av % Min: 97 % Max: 100 % Intake/Output Summary (Last 24 hours) at 05/23/2022 1440 Last data filed at 05/23/2022 1249 Gross per 24 hour Intake 2743 ml Output 2845 ml Net -102 ml BM: 05/21 Emesis: 05/22 Diet Order: NPO ? Height: 5' 1 Weight: 80.0 kg IBW: 48 kg %IBW: 167 BMI: 33.33: Obese I Nutrition Focused Physical Exam: Muscle loss: none Fat loss: none Edema: none Hair/Nails/Skin: intact Eyes/Nose/Mouth: NGT Estimated needs: 1170-8439 kcal/d 25-30 kcal/kg 80-105 g pro/d 1-1.3 g pro/kg Assessment: 66 year old female with PMH of hypertension, RLS, GERD, and h/o paroxysmal SVT who presented to [facility] with epigastric pain with nausea and vomiting. Patient describes onset of pain on prior day that has increased since then. Shortly after onset of pain, patient experienced nausea and persistent vomiting, now unable to tolerate PO intake. Denies fevers, chills. She presented to [facility] where EKG demonstrated 'hyperacute T waves' in multiple leads without evidence of STEMI. Troponin originally 139, then 381 on repeat. CTA was performed and did not reveal dissection or PE. CT did demonstrate acute inflammation of the gallbladder with a stone at the neck. A central line was placed for resuscitation purposes and the patient was transferred to [facility] for further evaluation. Prior to transfer, lab work without leukocytosis (10.7) and LFTs/Lipase without abnormality. ACS consulted upon arrival to [facility] for cholecystitis. She was admitted to the SDU for telemetry under EGS but transferred to [facility] on 05/20/22 Hospital Course/Procedures: 05/16/2022: Transferred from [facility] ED with cholecystitis, up-trending troponin, and unclear EKG findings. Up-trending leukocytosis, down-trending troponin by PM. Cardiology following. Zosyn started. 05/17/2022: rCT with worsening gallbladder inflammation /o free air or rupture. Percutaneous cholecystotomy tube placement with IR. 05/19/2022: Bilious emesis, NGT placed 05/20/2022: Transferred to [facility] 05/21/2022:To stop zosyn today day 06/28 Pt currently NPO. Last BM 05/21, last emesis yesterday. NGT in place, Pt asking if she will be able to eat after procedure today. She had 1 episode of hypoglycemia yesterday, D5 running @ 100 cc/hr. She appears well nourished. See recs below, thank you. Nutrition Interventions: 1. Advance diet as medically feasible Clear liquid ---> full liquid + strawberry Boost Plus TID ---> GI soft + strawberry Boost Plus TID 2. Monitor/correct for hypoglycemia while NPO 3. If tube feeds become indicated Nutren 1.5 @ 30 cc/hr, advance 10 cc Q 4 hours to goal of 60 cc/hr FWF per MD Provides 1440 kcal, 2160 kcal, 97 gm prot Will continue to follow Luis Roberts RD, CLAUDIO Personal Pager [phone] Java Performance Engineer Pager: [phone] Normal The [facility] [employer] Utility Worker Authentication Interface Message Text Diet Senior Corporate Recruiter Nutrition Screening Reason for visit: 7 to 10 Day follow-up Assessment Admitting Diagnosis: NSTEMI, cholecystitis. choledocolithiasis High risk nutrition diagnosis: No - no points Past Medical History: Past Medical History: Diagnosis Date Restless leg Food Allergies: NKFA Labs: LFT's (last 3 years, up to 5 values) T Prot Albumin D Bili T Bili Alk Phos ALT AST 05/19/22 0355 4.7 2.8 0.48 0.9 63 8 18 05/17/22 0411 5.2 3.2 2.30 3.9 72 12 25 05/16/22 0222 6.4 4.0 0.13 0.6 79 11 20 Albumin: Less than 3 - 1 point Skin Integrity: No pressure ulcers at this time - no points Fluid Accumulation: wnl Diet Order: NPO % PO Intake: NPO > 5 days - 7 point Intake Difficulties: +NG 5' 1 176.4 lbs BODY MASS INDEX 05/16/2022 05/16/2022 Kg 81.647 kg 80.015 kg Lbs 180 lb 176 lb 6.4 oz BMI 34.03 kg/m2 33.35 kg/m2 BMI: 33.33 BMI Screening value: 21 or greater - 0 points % Weight Loss: not signficant Weight Loss Screening Value: Not significant - 0 points Education: No nutrition education indicated at this time. Comments: patient with prolonged NPO status - will refer to the floor RD. Number of Points: 8 Nutritional Plan of Care: Greater than or equal to 7 points: Patient is at high nutrition risk. Refer to RD. Will continue to follow, May Sanchez, Diet Senior Corporate Recruiter Pager [phone] Normal The [facility] Syst em GLUCOSE, FINGERSTICK-IN OFFI CEon 05-23-2022 Glucose [Mass/Vol] 95 mg/dL Normal 80-116 [facility] Comment on above: Performed By: #### H STRP #### S PATHOLOGY LABORATORY [address] [place] [address], Glucose [Mass/Vol] 102 mg/dL Normal 80-116 [facility] Comment on above: Performed By: #### C H8, HEPATIC #### S PATHOLOGY LABORATORY [address] [place] [address], [phone] Glucose [Mass/Vol] 105 mg/dL Normal 80-116 The [facility] Comment on above: Performed By: #### 8 2948 #### NURSING GLUCOSE PROGRAM [address] [place] [address], Glucose [Mass/Vol] 89 mg/dL Normal 80-116 The [facility] Comment on above: Performed By: #### H STRP #### [facility] [address] [place], [place], Glucose [Mass/Vol] 92 mg/dL Normal 80-116 The [facility] Comment on above: Performed By: #### 8 2948 #### NURSING GLUCOSE PROGRAM [address] [place], [address] MAGNESIUMon 05-23-2022 Magnesium [Mass/Vol] 1.9 mg/dL Normal 1.6-2.8 [facility] Comment on above: Performed By: #### H STRP #### [facility] [address] [place], [place], Procedureson 05-23-2022 Merchant Mill Utility Worker Authentication Interface Message Text Invasive Cardiology Report Demographics Patient name RYLIE GARRETT Height 155cm Patient # [id number] Weight 79.8kg BSA 1.79m2 Date of 1955 BMI 33.22 kg/m2 Age 66 Study date 05/23/2022 14:44 Gender Female Race Ref. physician Attending physician SEBASTIEN RAPHAEL Fellow PCP Procedure Indications: - Elevated troponin Indications Comments: in the setting of acute cholecystitis. Type of study: Diagnostic procedure: LHCw/cors Miscellaneous: Moderate Sedation Initial 15 min Complications: *No Complications. Conclusions Summary 1. Mild nonobstructive coronary artery disease. Elevated troponin likely due to demand supply mismatch in the setting of acute cholecystitis. 2. Low LVEDP. Recommendations 1. Medical therapy. 2. Aggressive cardiovascular risk factor modification. Signatures Hemodynamics Condition: Baseline Actual: Estimated: Heart rate: 90 bpm Pressure (mmHg) - AO - 115/73Mean 91 - LV - 125/EDP 6 Angiographic findings LMCA: Normal. LAD: Diffuse mild irregularity up to 20% narrowing. LCx: Diffuse mild irregularity up to 20% narrowing.Dominant. RCA: Diffuse mild irregularity up to 20% narrowing.Small and non-dominant. Procedure data Start time: 05/23/2022 14:44. Entry locations: - Percutaneous access was performed through the Right Radial artery. A 6 Fr sheath was inserted.The puncture site was successfully closed with TR band Procedure medications: - Midazolam 0.5 , I.V. - Fentanyl 50 , I.V. - Verapamil 2.5 , IA - Nitroglycerin 200 , IA - Heparin 4000 , I.V. Procedure Medication Totals - Midazolam - Fentanyl - Verapamil - Nitroglycerin - Heparin Materials: - ACC IV DECANTERS, Clipper head, 500ml Infusable pressure bag, KIT CARDIAC CATH PACK CA/3, Room Charge OD GRINDER OPERATOR, [facility] InQwire .035 x 150cm 3mmJ, Glidesheath Slender 6Fr., 6F Arth[place]ale Radial 4.0 110cm, Omnipaque 350 100cc and TR Band. Contrast material: 50 ml Omnipaque 350. Fluoroscopy time: PCI: 2:06 minutes. Total: 2:06 minutes. IABP: No IABP Procedure Description In a sterile fashion, after infiltration with 2% lidocaine, a 6 Burkinan arterial sheath was placed through a right radial artery puncture. A 6 Burkinan Arthurd[place] 4.0 radial catheter was inserted and passed retrograde into the ascending aorta and left ventricle where pressures were recorded. After pressure measurements were recorded, the left and right coronary arteries were selectively opacified and Coronary angiograms were performed in multiple projections using a 6 Burkinan Arthurdale 4.0 radial catheter. At the end of the procedure, right radial arterial sheath was removed and hemostasis was obtained using a TR band. Moderate sedation provided by the attending physician performing the procedure. The moderate sedation intraservice time was 12 minutes. Normal The [facility] Progress Noteson 05-23-2022 Merchant Mill Utility Worker Authentication Interface Message Text [facility] showed no obstructive coronary artery disease. Medical management with aspirin 81 mg daily, losartan 25 mg daily and metoprolol XL 12.5 mg with dose adjustment as tolerated. She will need outpatient follow up with cardiology Cards team signing off. Please feel free to contact in case of any qs. Normal The [employer] Utility Worker Authentication Interface Message Text PT recs anticipate pt to be appropriate for home-going. Pt reportedly has sister who can provide PRN assistance. Medical team to please notify SW if any SW or DC concerns arise. Franky Lane MSSA,HIGH WORKER Normal The [facility] [employer] Utility Worker Authentication Interface Message Text [facility] DIVISION OF ACUTE CARE SURGERY --- GENERAL INFORMATION -- EMERGENCY GENERAL SURGERY NOTE Patient Name: Gerry Victoria Admission Date: 05/16/2022 Patient seen and examined on 05/23/2022 - INTERVAL HISTORY/EVENTS Background Narrative: Gerry Victoria is a 66 year old female with PMH of hypertension, RLS, GERD, and h/o paroxysmal SVT who presented to [facility] with epigastric pain with nausea and vomiting. Patient describes onset of pain on prior day that has increased since then. Shortly after onset of pain, patient experienced nausea and persistent vomiting, now unable to tolerate PO intake. Denies fevers, chills. She presented to [facility] where EKG demonstrated 'hyperacute T waves' in multiple leads without evidence of STEMI. Troponin originally 139, then 381 on repeat. CTA was performed and did not reveal dissection or PE. CT did demonstrate acute inflammation of the gallbladder with a stone at the neck. A central line was placed for resuscitation purposes and the patient was transferred to [facility] for further evaluation. Prior to transfer, lab work without leukocytosis (10.7) and LFTs/Lipase without abnormality. ACS consulted upon arrival to [facility] for cholecystitis. She was admitted to the SDU for telemetry under EGS but transferred to [facility] on 05/20/22 Hospital Course/Procedures: 05/16/2022: Transferred from [place] with cholecystitis, up-trending troponin, and unclear EKG findings. Up-trending leukocytosis, down-trending troponin by PM. Cardiology following. Zosyn started. 05/17/2022: rCT with worsening gallbladder inflammation /o free air or rupture. Percutaneous cholecystotomy tube placement with IR. 05/19/2022: Bilious emesis, NGT placed 05/20/2022: Transferred to [facility] 05/21/2022:To stop zosyn today day / Events in last 24 hours: No acute events overnight, patient reports feeling well this am, denies nausea, vomiting, chest pain or SOB. Patient continue to have NG tube in place with bilious output. Patient is awaiting cardiac cath today --------- PHYSICAL EXAM --------- Vitals: Vital sign ranges over the past 24 hours (retrieved 05/23/2022 at 10:46 AM): Tmax (24 hours): 100.3 ???F (37.9 ???C) Pulse Av.2 Min: 72 Max: 95 Systolic (24hrs), Av , Min:144 , Max:174 Diastolic (24hrs), Av, Min:67, Max:100 MAP (mmHg) Av.8 mmHg Min: 88 mmHg Max: 115 mmHg Resp Av Min: 18 Max: 18 SpO2 Av.3 % Min: 97 % Max: 100 % Intake/Output Summary (Last 24 hours) at 05/23/2022 1046 Last data filed at 05/23/2022 0900 Gross per 24 hour Intake 2753 ml Output 3075 ml Net -322 ml Physical Exam: -General - Seen resting in bed in SICU in [facility]- I J line in place -Neurologic - No focal deficits, clear speech -Cardiovascular - Non-tachycardic and normotensive per monitor, episodes of HTN -Respiratory - seen breathing comfortably on RA -Abdomen - Soft, expected but improved tenderness to RUQ and epigastric region, ND, not peritonitic, perc merlyn in place with clean dressing over top with bilious output, NGT in place -Psychiatric - normal affect -Extremities - Chronic venous stasis to bilateral LE LABORATORY RESULTS (LAST 24 HOURS) CBC/PT/INR WBC RBC Hgb Hct MCV RDW Plt PT aPTT INR 05/23/22135 7.1 4.04 11.1 33.2 82 14.9 313 Basic Metabolic Panel Na K Cl CO2 Gap Glu BUN Cr Ca Mg PO4 05/23/22135 1.9 05/23/22135 139 3.5 100 31 12 92 4 0.65 8.4 Arterial Blood Gases None IMAGING RESULTS - (PERSONALLY REVIEWED) EXAMINATION: CT ABDOMEN/PELVIS W/ CONTRAST 05/17/2022 10:55 AM IMPRESSION: 1. The gallbladder is markedly distended, with wall thickening and surrounding inflammation and fluid consistent with acute cholecystitis. This has worsened when compared to the prior study. 2. Small volume free fluid is present along the margins of the liver and spleen and in the right paracolic gutter and dependent pelvis, increased from the prior study. ---- DIAGNOSIS AND PLAN ------- Diagnoses: Acute Cholecystitis Acute abdominal pain Type II NE Atypical takatsubo PMHx: GERD, HTN, HLD, spinal stenosis, paroxysmal SVT, overactive bladder, RLS, stasis dermatitis, PARTH, fibromyalgia, chronic fatigue syndrome Assessment: 66yo female with acute cholecystitis and associated pain. Admission complicated by initial up-trending troponin and abnormal EKG findings. Troponin now down-trending. Echo 05/16 with findings of LVEF 55% and possible atypical takatsubo for which Cardiology is following. Patient is high risk for OR per cards, therefore, a percutaneous cholecystostomy was placed by IR on 05/17, now with appropr (more content not included)... Normal [facility] TYPE AND SCREENon 05-23-2022 ABO and Rh group Nom (Bld) Blood group A Rh(D) positive Normal The [facility] Comment on above: Performed By: #### H STRP #### [facility] [address] [place] [address], ABSC INT Negative Normal The [facility] Comment on above: Performed By: #### H STRP #### [facility] [address] [place] [address], BASIC METABOLIC PANELon 04-28 Anion gap [Moles/Vol] 13 mmol/L Normal 10-20 [facility] Comment on above: Performed By: #### 8 2948 #### NURSING GLUCOSE PROGRAM [address] [place] [address], [address] Calcium [Mass/Vol] 8.7 mg/dL Normal 8.4-10.4 The [facility] Comment on above: Performed By: #### 8 2948 #### NURSING GLUCOSE PROGRAM [address] [place] [address], [id number] Chloride [Moles/Vol] 98 mmol/L Normal 97-111 [facility] Comment on above: Performed By: #### 8 2948 #### NURSING GLUCOSE PROGRAM [address] [place] [address], [address] CO2 [Moles/Vol] 31 mmol/L High 21-30 The [facility] Comment on above: Performed By: #### 8 2948 #### NURSING GLUCOSE PROGRAM [address] [place] [address], [address] Creatinine [Mass/Vol] 0.76 mg/dL Normal 0.50-1.10 The [facility] Comment on above: Performed By: #### 8 2948 #### NURSING GLUCOSE PROGRAM [address] [place] [address], [id number] ESTIMATED GFR (CKD-EPI) 85 mL/min/1.73sqm Normal >=60 [facility] Comment on above: Result Comment: 2020 CKD EPI Equation using Creatinine without Race Comment: Estimated glomerular filtration rate (eGFR) is calculated without a race coefficient. Values should be interpreted in the context of the patient's full clinical presentation. Reference: 1. Leonardo Corrigan, Makayla Mathews, Ilya FLYNN, et al.. A Unifying Approach for GFR Estimation: Recommendations of the NKF-ASN Task Force on Reassessing the Inclusion of Race in Diagnosing Kidney Disease. [place]z Journal of Kidney Diseases 2021;79(2):268-88.e1. 2. N Engl J Med 2020 Vol. 385 Issue 19 Pages 2347-7827 Performed By: #### 8 2948 #### NURSING GLUCOSE PROGRAM [address] [place], [address] Glucose [Mass/Vol] 91 mg/dL Normal 80-116 The [facility] Comment on above: Performed By: #### 8 2948 #### NURSING GLUCOSE PROGRAM [address] [place], [address] Potassium [Moles/Vol] 3.6 mmol/L Normal 3.3-5.3 [facility] Comment on above: Performed By: #### 8 2948 #### NURSING GLUCOSE PROGRAM [address] [place], [address] Sodium [Moles/Vol] 138 mmol/L Normal 135-148 [facility] Comment on above: Performed By: #### 8 2948 #### NURSING GLUCOSE PROGRAM [address] [place], [address] Urea nitrogen [Mass/Vol] 5 mg/dL Low 8-22 [facility] Comment on above: Performed By: #### 8 2948 #### NURSING GLUCOSE PROGRAM [address] [place], [address] COMPLETE BLOOD COUNTon 05-22 Erythrocyte distribution wid th (RBC) [Ratio] 15.1 % High 11.5-14.5 [facility] Comment on above: Performed By: #### C BC ####[facility] PATH[facility] [id number] [place], [place], Hematocrit (Bld) [Volume fraction] 34.3 % Low 3 6.0-46.0 [facility] Comment on above: Performed By: #### C BC ####[facility] [id number] [place], [place], Hemoglobin (Bld) [Mass/Vol] 11.4 g/dL Low 12.0-15. 0 [facility] Comment on above: Performed By: #### C BC ####S PATHOLOGY [id number] [place], [place], MCH (RBC) [Entitic mass] 27.4 pg Normal 26.0-34.0 The [facility] Comment on above: Performed By: #### C BC ####[facility] PATHOLOGY [id number] [place], [place], MCHC (RBC) [Mass/Vol] 33.4 g/dL Normal 32.0-35.9 The [facility] Comment on above: Performed By: #### C BC ####[facility] PATHOLOGY [id number] [place], [place], MCV (RBC) [Entitic vol] 82 fL Normal 80-100 T [facility] Comment on above: Performed By: #### C BC ####[facility] PATHOLOGY [id number] [place], [place], Platelet mean volume (Bld) [ Entitic vol] 7.6 fL Normal 7.5-11.2 The [facility] Comment on above: Performed By: #### C BC ####[facility] PATHOLOGY [id number] [place], [place], Platelets (Bld) [#/Vol] 322 10*3/uL Normal 150-400 The [facility] Comment on above: Performed By: #### C BC ####[facility] PATHOLOGY [id number] [place], [place], RBC (Bld) [#/Vol] 4.17 10*6/uL Normal 4.00-5.20 The [facility] Comment on above: Performed By: #### C BC ####[facility] PATHOLOGY [id number] [place], [place], WBC (Bld) [#/Vol] 7.0 10*3/uL Normal 4.5-11.5 The [facility] Comment on above: Performed By: #### C BC ####[facility] PATHOLOGY [id number] [place], [place], Care Plan Noteon 05-22-2022 [employer]chant [employer] Utility Worker Authentication Interface Message Text Problem: Routine Care: Goal: Patient care will be managed and maintained throughout hospital stay per unit specific routine care procedure Outcome: Progressing Note: Patient rounded on per hourly rounding unit protocol, call light within reach, siderails in place, encouraged to call for assistance as needed. Problem: Acute Pain: Goal: Ability to identify pain intensity on a pain scale and rate it consistently will be achieved and maintained Outcome: Progressing Note: Patient consistently rates pain using numeric pain scale. Pain managed at this time through PRN medications. Goal: Acceptable level of pain which allows the patient to achieve functional outcome goals Outcome: Progressing Problem: Altered Elimination: Goal: Establishment of individualized urinary routine Outcome: Progressing Problem: Risk for Infection: Goal: Risk for infection will be reduced Outcome: Progressing Problem: Impaired Skin Integrity: Goal: Skin integrity will improve and/or be maintained Outcome: Progressing Problem: VTE Prophylaxis: Goal: Will be free of DVT Outcome: Progressing Problem: Safety: Goal: Patient will remain free of falls during hospital stay Outcome: Progressing Goal: Free from injury during hospitalization Outcome: Progressing Problem: Discharge Planning: Goal: Discharge needs of the adult patient will be met Outcome: Progressing Problem: Alteration in Tissue Perfusion: Cardiac: Goal: Promote adequate perfusion and limit complications resulting from myocardial oxygen supply, demand and imbalance Outcome: Progressing Normal The [facility] tem GLUCOSE, FINGERSTICK-IN OFFI CEon 05-22-2022 Glucose [Mass/Vol] 78 mg/dL Low 80-116 [facility] Comment on above: Performed By: #### 8 2948 #### NURSING GLUCOSE PROGRAM [address] [place] [address], [id number] Glucose [Mass/Vol] 99 mg/dL Normal 80-116 [facility] Comment on above: Performed By: #### 8 2033 #### NURSING GLUCOSE PROGRAM [address] [place], [address] Glucose [Mass/Vol] 134 mg/dL High 80-116 [facility] Comment on above: Performed By: #### 8 6584 #### NURSING GLUCOSE PROGRAM [address] [place], [address] Glucose [Mass/Vol] 111 mg/dL Normal 80-116 [facility] Comment on above: Performed By: #### Reid Grullon CH8 #### S PATHOLOGY LABORATORY [address] [place] [address], [phone] Glucose [Mass/Vol] 103 mg/dL Normal 80-116 [facility] Comment on above: Performed By: #### C H8, HEPATIC #### [facility] [address] [place], [place], Glucose [Mass/Vol] 112 mg/dL Normal 80-116 [facility] Comment on above: Performed By: #### C H8, HEPATIC #### [facility] [address] [place], [place], MAGNESIUMon 05-22-2022 Magnesium [Mass/Vol] 2.0 mg/dL Normal 1.6-2.8 The [facility] Comment on above: Performed By: #### 8 2948 #### NURSING GLUCOSE PROGRAM [address] [place], [place], Progress Noteson 05-22-2022 [employer]chant [employer] Utility Worker Authentication Interface Message Text [facility] DIVISION OF ACUTE CARE SURGE RY GENERAL INFORMATION EMERGENCY GENERAL SURGERY NOTE Patient Name: Gerry Victoria Admission Date: 05/16/2022 Patient seen and examined on 05/22/2022 INTERVAL HISTORY/EVENTS Background Narrative: Gerry Victoria is a 66 year old female with PMH of hypertension, RLS, GERD, and h/o paroxysmal SVT who presented to [facility] with epigastric pain with nausea and vomiting. Patient describes onset of pain on prior day that has increased since then. Shortly after onset of pain, patient experienced nausea and persistent vomiting, now unable to tolerate PO intake. Denies fevers, chills. She presented to [facility] where EKG demonstrated 'hyperacute T waves' in multiple leads without evidence of STEMI. Troponin originally 139, then 381 on repeat. CTA was performed and did not reveal dissection or PE. CT did demonstrate acute inflammation of the gallbladder with a stone at the neck. A central line was placed for resuscitation purposes and the patient was transferred to [facility] for further evaluation. Prior to transfer, lab work without leukocytosis (10.7) and LFTs/Lipase without abnormality. ACS consulted upon arrival to [facility] for cholecystitis. She was admitted to the SDU for telemetry under EGS but transferred to [facility] on 05/20/22 Hospital Course/Procedures: 05/16/2022: Transferred from [facility] ED with cholecystitis, up-trending troponin, and unclear EKG findings. Up-trending leukocytosis, down-trending troponin by PM. Cardiology following. Zosyn started. 05/17/2022: rCT with worsening gallbladder inflammation /o free air or rupture. Percutaneous cholecystotomy tube placement with IR. 05/19/2022: Bilious emesis, NGT placed 05/20/2022: Transferred to [facility] 05/21/2022:To stop zosyn today day 06/28 Events in last 24 hours: -NAEO, continue to be Afebrile, HDS, NGT output continue to be elevated 1.2L - RUQ pain improving, drain output 420cc PHYSICAL EXAM Vitals: Vital sign ranges over the past 24 hours (retrieved 05/22/2022 at 6:48 PM): Tmax (24 hours): 99 ???F (37.2 ???C) Pulse Av.5 Min: 77 Max: 98 Systolic (24hrs), Av , Min:141 , Max:178 Diastolic (24hrs), Av, Min:76, Max:116 MAP (mmHg) Av.3 mmHg Min: 95 mmHg Max: 128 mmHg Resp Av.7 Min: 18 Max: 20 SpO2 Av % Min: 96 % Max: 98 % Intake/Output Summary (Last 24 hours) at 05/22/2022 1848 Last data filed at 05/22/2022 1510 Gross per 24 hour Intake 2266.33 ml Output 3150 ml Net -883.67 ml Physical Exam: -General - Seen resting in bed in SICU in [facility]- I J line in place -Neurologic - No focal deficits, clear speech -Cardiovascular - Non-tachycardic and normotensive per monitor, episodes of HTN -Respiratory - seen breathing comfortably on RA -Abdomen - Soft, expected but improved tenderness to RUQ and epigastric region, ND, not peritonitic, perc merlyn in place with clean dressing over top with bilious output -Psychiatric - normal affect -Extremities - Chronic venous stasis to bilateral LE LABORATORY RESULTS (LAST 24 HOURS) CBC/PT/INR WBC RBC Hgb Hct MCV RDW Plt PT aPTT INR 05/22/22 0032 7.0 4.17 11.4 34.3 82 15.1 322 Basic Metabolic Panel Na K Cl CO2 Gap Glu BUN Cr Ca Mg PO4 05/22/22 0032 2.0 05/22/22 0032 138 3.6 98 31 13 91 5 0.76 8.7 Arterial Blood Gases None IMAGING RESULTS - (PERSONALLY REVIEWED) EXAMINATION: CT ABDOMEN/PELVIS W/ CONTRAST 05/17/2022 10:55 AM IMPRESSION: 1. The gallbladder is markedly distended, with wall thickening and surrounding inflammation and fluid consistent with acute cholecystitis. This has worsened when compared to the prior study. 2. Small volume free fluid is present along the margins of the liver and spleen and in the right paracolic gutter and dependent pelvis, increased from the prior study. DIAGNOSIS AND PLAN Diagnoses: Acute Cholecystitis Acute abdominal pain Type II NE Atypical takatsubo PMHx: GERD, HTN, HLD, spinal stenosis, paroxysmal SVT, overactive bladder, RLS, stasis dermatitis, PARTH, fibromyalgia, chronic fatigue syndrome Assessment: 66yo female with acute cholecystitis and associated pain. Admission complicated by initial up-trending troponin and abnormal EKG findings. Troponin now down-trending. Echo 05/16 with findings of LVEF 55% and possible atypical takatsubo for which Cardiology is following. Patient is high risk for OR per cards, therefore, a percutaneous cholecystostomy was placed by IR on 05/17, now with appropriate bilious output. NGT output remain high to 1.3 L Plan 1. Neurologic -tylenol q4 PRN, oxycodone q4 P (more content not included)... Normal [facility] [employer] Worker Authentication Interface Message Text 05/22/2022 4:04 PM Referring Attending: Dr Jocelyne Victoria [id number] Planned Procedure: Coronary angiograms w/ poss intervention Procedure Indication: Suspected CAD CV Risk Factors: Hypertension: Yes History of Present Illness: 66 year old female with history of hypertension, recent diagnosis of type II NE, atypical takotsubo, acute cholecystitis s/p percutaneous cholecystostomy drain placement is referred for [facility] for CAD risk stratification and preparation for surgical cholecystectomy. SOB: No Chest Pain: No Patients H AND P remains current: Yes Anticoagulation and last dose: none Anti-platelet and last dose: Asa 81 mg, Last dose daily Procedure centered review of systems: Allergies to iodinated IV contrast or latex?: No Any surgery, epidural injection or dental procedure planned: at later date - cholecystectomy Bleeding diathesis: No Review of Systems: 10 point review of systems negative apart from above mentioned in HPI, unless indicated below Past Medical History: Past Medical History: Diagnosis Date Restless leg Past Surgical History: Past Surgical History: Procedure Laterality Date TOTAL ABDOMINAL HYSTERECTOMY W/WO REMOVAL TUBE(S)/OVARY(S) Family History: No family history on file. Social History: Social History Socioeconomic History Marital status: Tobacco Use Smoking status: Former Packs/day: 1.00 Years: 50.00 Pack years: 50.00 Types: Cigarettes Quit date: 2009 Years since quittin.1 Allergies: Allergies Allergen Reactions Adhesives [Bandage Tape] Itching and Redness Cymbalta [Duloxetine Hcl] Agitation Lyrica [Pregabalin] Swelling Current Medications: No current facility-administered medications on file prior to encounter. Current Outpatient Medications on File Prior to Encounter Medication Sig Dispense Refill gabapentin (NEURONTIN) 100 MG capsule Take 100 mg by mouth 3 times daily. levothyroxine (SYNTHROID) 50 MCG tablet Take 50 mcg by mouth daily. omeprazole (PRILOSEC) 20 MG capsule Take by mouth. oxybutynin (DITROPAN-XL) 10 MG XL tablet Take 10 mg by mouth. rOPINIRole (REQUIP) 2 MG tablet rosuvastatin (CRESTOR) 10 MG tablet amitriptyline (ELAVIL) 50 MG tablet Take 50 mg by mouth at bedtime. atenolol (TENORMIN) 50 mg tablet Take 50 mg by mouth daily. escitalopram (LEXAPRO) 10 MG tablet Take by mouth. Brief Physical Exam: Vitals: BP 154/100 (BP Location: right arm) Pulse 82 Temp 98.2 ???F (36.8 ???C) (Oral) Resp 18 Ht 5' 1 (1.549 m) Wt 176 lb 6.4 oz (80 kg) SpO2 98% BMI 33.33 kg/m??? Appearance: Normal Findings: alert, oriented, no acute distress Lungs: decreased breath sounds at bases Cardiac: regular rate and rhythm without murmurs, rubs, or gallops Abdomen: Obese, soft, +tenderness mild epigastric and RUQ, BS+ Extremities: no pedal edema Peripheral Pulses: radial Barbeau Test: Right: type A Laboratory Tests: CBC (last 3 years, up to 5 values) (Last 5 results in the past 3 years) WBC RBC Hgb Hct MCV RDW Plt 05/22/22 0032 7.0 4.17 11.4 34.3 82 15.1 322 05/21/22 0124 5.0 3.67 10.1 30.1 82 15.2 241 05/20/22 0217 4.7 3.36 9.2 27.9 83 15.3 231 05/19/22 0355 5.3 3.41 9.4 28.2 83 15.6 199 05/18/22 0228 9.4 3.45 10.1 28.2 82 15.3 177 Basic Metabolic Panel (Last 5 results in the past 3 years) Na K Cl CO2 Gap Glu BUN Cr Ca 05/22/22 0032 138 3.6 98 31 13 91 5 0.76 8.7 05/21/22 0124 138 3.2 100 29 12 107 4 0.65 8.1 05/20/22 0217 137 3.8 100 30 11 105 5 0.71 7.6 05/19/22 0355 139 3.5 102 31 10 120 8 0.74 7.7 05/18/22 0228 136 3.9 101 27 12 77 12 0.78 7.7 INR (no units) Date Value 05/17/2022 1.61 (H) 05/16/2022 1.10 Cardiac None Cardiac Tests: ECG: normal sinus rhythm, 05/20/2022 Last Echo: Left Ventricular Ejection Fraction: 55 % on 05/16/2022. Chambers LV Left ventricular systolic function is focally abnormal. The left ventricular ejection fraction (LVEF) is 55% +/- 5%by the biplane summation of discs (Bee's rule) method. Focal LV systolic dysfunction consists of akinesia of the basal and mid robreson. This is consistent with atypical takatsubo. However, this is a diagnosis of exclusion. Left ventricular size is normal. LA The left atrial size is normal. The left atrial volume index is 24 mL/m2 (normal: <35 mL/m2, mild: 35-41 mL/m2, moderate: 42-48 mL/m2, severe: >48 mL/m2). RV Right ventricular function is normal. The tricuspid annular plane systolic excursion (TAPSE, a marker of RV systolic function) is normal at 18 mm (normal >16 mm). Right ventricular size is normal. RA Normal right atrium. Valves AV Normal aortic valve. MV Normal mitral valve. TV Normal tricuspid valve. PV Normal pulmonic valve. Great Vessels Normal sinus of Valsalva. Pericardium/Pleura No evidence of a pericardial effusion. Hemodyn (more content not included)... Normal T [facility] BASIC METABOLIC PANELon 04-28 Anion gap [Moles/Vol] 12 mmol/L Normal 10-20 [facility] Comment on above: Performed By: #### 8 [id number] #### NURSING GLUCOSE PROGRAM [address] [place], [address] Calcium [Mass/Vol] 8.1 mg/dL Low 8.4-10.4 The [facility] Comment on above: Performed By: #### 8 0906 #### NURSING GLUCOSE PROGRAM [address] [place], [address] Chloride [Moles/Vol] 100 mmol/L Normal 97-111 The [facility] Comment on above: Performed By: #### 8 2948 #### NURSING GLUCOSE PROGRAM [address] [place], [address] CO2 [Moles/Vol] 29 mmol/L Normal 21-30 The [facility] Comment on above: Performed By: #### 8 2948 #### NURSING GLUCOSE PROGRAM [address] [place], [address] Creatinine [Mass/Vol] 0.65 mg/dL Normal 0.50-1.10 [facility] Comment on above: Performed By: #### 8 2948 #### NURSING GLUCOSE PROGRAM [address] [place], [address] ESTIMATED GFR (CKD-EPI) 96 mL/min/1.73sqm Normal >=60 [facility] Comment on above: Result Comment: 2020 CKD EPI Equation using Creatinine without Race Comment: Estimated glomerular filtration rate (eGFR) is calculated without a race coefficient. Values should be interpreted in the context of the patient's full clinical presentation. Reference: 1. Leonardo C, Makayla M, Ilya FLYNN, et al.. A Unifying Approach for GFR Estimation: Recommendations of the NKF-ASN Task Force on Reassessing the Inclusion of Race in Diagnosing Kidney Disease. [place] Journal of Kidney Diseases 2021;79(2):268-88.e1. 2. N Engl J Med 1 Vol. 385 Issue 19 Pages 6342-7439 Performed By: #### 8 2948 #### NURSING GLUCOSE PROGRAM [address] [place], [address] Glucose [Mass/Vol] 107 mg/dL Normal 80-116 The [facility] Comment on above: Performed By: #### 8 2948 #### NURSING GLUCOSE PROGRAM [address] [place], [address] Potassium [Moles/Vol] 3.2 mmol/L Low 3.3-5.3 [facility] Comment on above: Performed By: #### 8 2948 #### NURSING GLUCOSE PROGRAM [address] [place], [address] Sodium [Moles/Vol] 138 mmol/L Normal 135-148 The [facility] Comment on above: Performed By: #### 8 2948 #### NURSING GLUCOSE PROGRAM [address] [place], [address] Urea nitrogen [Mass/Vol] 4 mg/dL Low 8-22 [facility] Comment on above: Performed By: #### 8 2948 #### NURSING GLUCOSE PROGRAM [address] [place], [address] COMPLETE BLOOD COUNTon 05-21 Erythrocyte distribution wid th (RBC) [Ratio] 15.2 % High 11.5-14.5 [facility] Comment on above: Performed By: #### 8 2948 #### NURSING GLUCOSE PROGRAM [address] [place], [address] Hematocrit (Bld) [Volume fraction] 30.1 % Low 3 6.0-46.0 The [facility] Comment on above: Performed By: #### 8 2948 #### NURSING GLUCOSE PROGRAM [address] [place] [address], [address] Hemoglobin (Bld) [Mass/Vol] 10.1 g/dL Low 12.0-15. 0 [facility] Comment on above: Performed By: #### 8 2948 #### NURSING GLUCOSE PROGRAM [address] [place] [address], [address] MCH (RBC) [Entitic mass] 27.5 pg Normal 26.0-34.0 [facility] Comment on above: Performed By: #### 8 2948 #### NURSING GLUCOSE PROGRAM [address] [place] [address], [address] MCHC (RBC) [Mass/Vol] 33.4 g/dL Normal 32.0-35.9 [facility] Comment on above: Performed By: #### 8 2948 #### NURSING GLUCOSE PROGRAM [address] [place] [address], [address] MCV (RBC) [Entitic vol] 82 fL Normal 80-100 T [facility] Comment on above: Performed By: #### 8 2948 #### NURSING GLUCOSE PROGRAM [address] [place], [address] Platelet mean volume (Bld) [ Entitic vol] 7.5 fL Normal 7.5-11.2 [facility] Comment on above: Performed By: #### 8 2948 #### NURSING GLUCOSE PROGRAM [address] [place] [address], [address] Platelets (Bld) [#/Vol] 241 10*3/uL Normal 150-400 [facility] Comment on above: Performed By: #### 8 2948 #### NURSING GLUCOSE PROGRAM [address] [place], [address] RBC (Bld) [#/Vol] 3.67 10*6/uL Low 4.00-5.20 [facility] Comment on above: Performed By: #### 8 2948 #### NURSING GLUCOSE PROGRAM [address] [place], [address] WBC (Bld) [#/Vol] 5.0 10*3/uL Normal 4.5-11.5 [facility] Comment on above: Performed By: #### 8 2948 #### NURSING GLUCOSE PROGRAM [address] [place], [address] Care Plan Noteon 05-21-2022 [employer] Worker Authentication Interface Message Text Problem: Routine Care: Goal: Patient care will be managed and maintained throughout hospital stay per unit specific routine care procedure Outcome: Progressing Note: Patient rounded on per hourly rounding unit protocol, call light within reach, siderails in place, encouraged to call for assistance as needed. Problem: Acute Pain: Goal: Ability to identify pain intensity on a pain scale and rate it consistently will be achieved and maintained Outcome: Progressing Note: Patient consistently rates pain using numeric pain scale. Pain managed at this time through PRN medications. Goal: Acceptable level of pain which allows the patient to achieve functional outcome goals Outcome: Progressing Problem: Altered Elimination: Goal: Establishment of individualized urinary routine Outcome: Progressing Problem: Risk for Infection: Goal: Risk for infection will be reduced Outcome: Progressing Problem: Impaired Skin Integrity: Goal: Skin integrity will improve and/or be maintained Outcome: Progressing Problem: VTE Prophylaxis: Goal: Will be free of DVT Outcome: Progressing Problem: Safety: Goal: Patient will remain free of falls during hospital stay Outcome: Progressing Note: Reminded to call for assistance Goal: Free from injury during hospitalization Outcome: Progressing Problem: Discharge Planning: Goal: Discharge needs of the adult patient will be met Outcome: Progressing Problem: Alteration in Tissue Perfusion: Cardiac: Goal: Promote adequate perfusion and limit complications resulting from myocardial oxygen supply, demand and imbalance Outcome: Progressing Normal [facility]son 05-21-2022 [employer] Worker Authentication Interface Message Text Physical Therapy Attempted to see pt for treatment at 9:24, however, before this pt finished introducing herself pt states I just got back to sleep . Pt keeps her eyes closed and requests more time to sleep. Will continue to follow pt per POC. Geovanna Villagomez, PT, DPT Normal [facility] GLU[facility], FINGERSTICK-IN OFFI CEon 05-21-2022 Glucose [Mass/Vol] 111 mg/dL Normal 80-116 [facility] Comment on above: Performed By: #### C H8, HEPATIC #### [facility] [address] [place] [address], Glucose [Mass/Vol] 101 mg/dL Normal 80-116 [facility] Comment on above: Performed By: #### H STRP #### [facility] [address] [place] [address], Glucose [Mass/Vol] 90 mg/dL Normal 80-116 [facility] Comment on above: Performed By: #### M G, CH8 #### [facility] [address] [place] [address], Glucose [Mass/Vol] 77 mg/dL Low 80-116 [facility] Comment on above: Performed By: #### 8 2948 #### NURSING GLUCOSE PROGRAM [address] [place] [address], [address] Glucose [Mass/Vol] 91 mg/dL Normal 80-116 [facility] Comment on above: Performed By: #### T S #### [facility] [address] [place] [address], MAGNESIUMon 05-21-2022 Magnesium [Mass/Vol] 1.9 mg/dL Normal 1.6-2.8 The [facility] Comment on above: Performed By: #### 8 2948 #### NURSING GLUCOSE PROGRAM [address] [place] [address], [address] Progress Noteson 05-21-2022 [employer] Worker Authentication Interface Message Text [facility] DIVISION OF ACUTE CARE SURGE RY GENERAL INFORMATION EMERGENCY GENERAL SURGERY NOTE Patient Name: Gerry Victoria Admission Date: 05/16/2022 Patient seen and examined on 05/21/2022 INTERVAL HISTORY/EVENTS Background Narrative: Gerry Victoria is a 66 year old female with PMH of hypertension, RLS, GERD, and h/o paroxysmal SVT who presented to [facility] with epigastric pain with nausea and vomiting. Patient describes onset of pain on prior day that has increased since then. Shortly after onset of pain, patient experienced nausea and persistent vomiting, now unable to tolerate PO intake. Denies fevers, chills. She presented to [facility] where EKG demonstrated 'hyperacute T waves' in multiple leads without evidence of STEMI. Troponin originally 139, then 381 on repeat. CTA was performed and did not reveal dissection or PE. CT did demonstrate acute inflammation of the gallbladder with a stone at the neck. A central line was placed for resuscitation purposes and the patient was transferred to [facility] for further evaluation. Prior to transfer, lab work without leukocytosis (10.7) and LFTs/Lipase without abnormality. ACS consulted upon arrival to [facility] for cholecystitis. She was admitted to the SDU for telemetry under EGS but transferred to [facility] on 05/20/22 Hospital Course/Procedures: 05/16/2022: Transferred from [facility] ED with cholecystitis, up-trending troponin, and unclear EKG findings. Up-trending leukocytosis, down-trending troponin by PM. Cardiology following. Zosyn started. 05/17/2022: rCT with worsening gallbladder inflammation /o free air or rupture. Percutaneous cholecystotomy tube placement with IR. 05/19/2022: Bilious emesis, NGT placed 05/20/2022: Transferred to [facility] 05/21/2022:To stop zosyn today day 4/4 Events in last 24 hours: -NAEO -Afebrile, HDS, no leukocytosis -NGT in place, 750cc output (increased from 250cc d/t patient's drinking a lot of -fluids with pills, per nurse) No emesis overnight -Reports improved RUQ pain this morning. -Voiding. -BM x1 since admission PHYSICAL EXAM Vitals: Vital sign ranges over the past 24 hours (retrieved 05/21/2022 at 10:30 AM): Tmax (24 hours): 99.9 ???F (37.7 ???C) Pulse Av.4 Min: 64 Max: 81 Systolic (24hrs), Av , Min:147 , Max:176 Diastolic (24hrs), Av, Min:76, Max:90 MAP (mmHg) Av mmHg Min: 96 mmHg Max: 116 mmHg Resp Av.2 Min: 16 Max: 20 SpO2 Av.4 % Min: 95 % Max: 100 % 24 Hour Input/Output UOP: 3.5L voiding BM x1 since admission Perc Cholecystostomy output: bilious, 750cc Intake/Output Summary (Last 24 hours) at 05/21/2022 1030 Last data filed at 05/21/2022 1027 Gross per 24 hour Intake 2320 ml Output 5120 ml Net -2800 ml Physical Exam: -General - Seen resting in bed in SICU in [facility]- I J line in place -Neurologic - No focal deficits, clear speech -Cardiovascular - Non-tachycardic and normotensive per monitor, episodes of HTN -Respiratory - seen breathing comfortably on RA -Abdomen - Soft, expected but improved tenderness to RUQ and epigastric region, ND, not peritonitic, perc hole in place with clean dressing over top, moderate amount of bilious output -Psychiatric - normal affect -Extremities - Chronic venous stasis to bilateral LE LABORATORY RESULTS (LAST 24 HOURS) CBC/PT/INR WBC RBC Hgb Hct MCV RDW Plt PT aPTT INR 05/21/22 0124 5.0 3.67 10.1 30.1 82 15.2 241 Basic Metabolic Panel Na K Cl CO2 Gap Glu BUN Cr Ca Mg PO4 05/21/22 0124 1.9 05/21/22 012 138 3.2 100 29 12 107 4 0.65 8.1 Arterial Blood Gases None IMAGING RESULTS - (PERSONALLY REVIEWED) EXAMINATION: CT ABDOMEN/PELVIS W/ CONTRAST 05/17/2022 10:55 AM IMPRESSION: 1. The gallbladder is markedly distended, with wall thickening and surrounding inflammation and fluid consistent with acute cholecystitis. This has worsened when compared to the prior study. 2. Small volume free fluid is present along the margins of the liver and spleen and in the right paracolic gutter and dependent pelvis, increased from the prior study. DIAGNOSIS AND PLAN Diagnoses: Acute Cholecystitis Acute abdominal pain Type II NE Atypical takatsubo PMHx: GERD, HTN, HLD, spinal stenosis, paroxysmal SVT, overactive bladder, RLS, stasis dermatitis, PARTH, fibromyalgia, chronic fatigue syndrome Assessment: 66yo female with acute cholecystitis and associated pain. Admission complicated by initial up-trending troponin and abnormal EKG findings. Troponin now down-trending. Echo 05/16 with findings of LVEF 55% and possible atypical takatsubo for w (more content not included)... Normal [facility] ANTI FXA-LMW HEPARINon 05-20 ANTI FXA-LMW HEPARIN ASSAY 0.25 IU/mL Normal [facility] Comment on above: Order Comment: The r ecommended therapeutic range for treatment of thrombosis with Low Molecular Weight Heparin is 0.5 - 1.0 IU/mLThe recommended range for VTE prophylaxis with Low Molecular Weight Heparin is 0.2 - 0.4 IU/mL. Performed By: #### 8 [id number] #### [facility] GLUCOSE PROGRAM [address] [place] [address], [address] BASIC METABOLIC PANELon 02- Anion gap [Moles/Vol] 11 mmol/L Normal 10-20 The [facility] Comment on above: Performed By: #### Reid Grullon, CH8 #### S PATHOLOGY LABORATORY [address] [place], [place], Calcium [Mass/Vol] 7.6 mg/dL Low 8.4-10.4 The [facility] Comment on above: Performed By: #### Reid Grullon, CH8 #### [facility] [address] [place], [place], Chloride [Moles/Vol] 100 mmol/L Normal 97-111 [facility] Comment on above: Performed By: #### Reid Grullon, CH8 #### S PATHOLOGY LABORATORY [address] [place] [address], CO2 [Moles/Vol] 30 mmol/L Normal 21-30 [facility] Comment on above: Performed By: #### Reid Grullon, ADELE8 #### S PATHOLOGY LABORATORY [address] [place] [address], Creatinine [Mass/Vol] 0.71 mg/dL Normal 0.50-1.10 [facility] Comment on above: Performed By: #### Reid Grullon, CH8 #### S PATHOLOGY LABORATORY [address] [place] [address], ESTIMATED GFR (CKD-EPI) 93 mL/min/1.73sqm Normal >=60 [facility] Comment on above: Result Comment: 2020 CKD EPI Equation using Creatinine without Race Comment: Estimated glomerular filtration rate (eGFR) is calculated without a race coefficient. Values should be interpreted in the context of the patient's full clinical presentation. Reference: 1. Leonardo C, Makayla M, Ilya FLYNN, et al.. A Unifying Approach for GFR Estimation: Recommendations of the NKF-ASN Task Force on Reassessing the Inclusion of Race in Diagnosing Kidney Disease. [place] Journal of Kidney Diseases 2021;79(2):268-88.e1. 2. N Engl J Med 1 Vol. 385 Issue 19 Pages 0862-0714 Performed By: #### Reid Grullon, CH8 #### S PATHOLOGY LABORATORY [address] [place] [address], Glucose [Mass/Vol] 105 mg/dL Normal 80-116 [facility] Comment on above: Performed By: #### Reid Grullon, CH8 #### S PATHOLOGY LABORATORY [address] [place] [address], Potassium [Moles/Vol] 3.8 mmol/L Normal 3.3-5.3 The [facility] Comment on above: Performed By: #### Reid Grullon, CH8 #### S PATHOLOGY LABORATORY [address] [place] [address], Sodium [Moles/Vol] 137 mmol/L Normal 135-148 [facility] Comment on above: Performed By: #### Reid Grullon, CH8 #### [facility] PATHOLOGY LABORATORY [address] [place] [address], Urea nitrogen [Mass/Vol] 5 mg/dL Low 8-22 The [facility] Comment on above: Performed By: #### Reid Grullon, ADEEL8 #### [facility] PATHOLOGY LABORATORY [address] [place] [address], COMPLETE BLOOD COUNTon 05-20 Erythrocyte distribution wid th (RBC) [Ratio] 15.3 % High 11.5-14.5 The [facility] Comment on above: Performed By: #### T S #### [facility] PATHOLOGY [facility]ATORY [address] [place] [address], Hematocrit (Bld) [Volume fraction] 27.9 % Low 3 6.0-46.0 The [facility] Comment on above: Performed By: #### T S #### S PATHOLOGY LABORATORY [address] [place] [address], Hemoglobin (Bld) [Mass/Vol] 9.2 g/dL Low 12.0-15. 0 The [facility] Comment on above: Performed By: #### T S #### S PATHOLOGY LABORATORY [address] [place] [address], MCH (RBC) [Entitic mass] 27.5 pg Normal 26.0-34.0 The [facility] Comment on above: Performed By: #### T S #### S PATHOLOGY LABORATORY [address] [place] [address], MCHC (RBC) [Mass/Vol] 33.0 g/dL Normal 32.0-35.9 The [facility] Comment on above: Performed By: #### T S #### S PATHOLOGY LABORATORY [address] [place], [place], MCV (RBC) [Entitic vol] 83 fL Normal 80-100 T [facility] Comment on above: Performed By: #### T S #### S PATHOLOGY LABORATORY [address] [place], [place], Platelet mean volume (Bld) [ Entitic vol] 7.5 fL Normal 7.5-11.2 The [facility] Comment on above: Performed By: #### T S #### S PATHOLOGY LABORATORY [address] [place], [place], Platelets (Bld) [#/Vol] 231 10*3/uL Normal 150-400 The [facility] Comment on above: Performed By: #### T S #### [facility] PATHOLOGY LABORATORY [address] [place], [place], RBC (Bld) [#/Vol] 3.36 10*6/uL Low 4.00-5.20 The [facility] Comment on above: Performed By: #### T S #### [facility] PATHOLOGY LABORATORY [address] [place], [place], WBC (Bld) [#/Vol] 4.7 10*3/uL Normal 4.5-11.5 The [facility] Comment on above: Performed By: #### T S #### S PATHOLOGY LABORATORY [address] [place], [place], GLUCOSE, FINGERSTICK-IN OFFI CEon 05-20-2022 Glucose [Mass/Vol] 95 mg/dL Normal 80-116 [facility] Comment on above: Performed By: #### [id number] ####NURSING GLUCOSE [id number] [place], [place], Glucose [Mass/Vol] 117 mg/dL High 80-116 The [facility] Comment on above: Performed By: #### 8 [id number] #### NURSING GLUCOSE PROGRAM [address] [place], [address] Glucose [Mass/Vol] 85 mg/dL Normal 80-116 [facility] Comment on above: Performed By: #### Reid Grullon, CH8 #### [facility] [address] [place], [place], Glucose [Mass/Vol] 100 mg/dL Normal 80-116 The [facility] Comment on above: Performed By: #### T S #### [facility] [address] [place], [place], Glucose [Mass/Vol] 102 mg/dL Normal 80-116 The [facility] Comment on above: Performed By: #### 8 [id number] #### NURSING GLUCOSE PROGRAM [address] [place], [address] Glucose [Mass/Vol] 92 mg/dL Normal 80-116 [facility] Comment on above: Performed By: #### Reid Grullon, CH8 #### [facility] [address] [place], [place], MAGNESIUMon 05-20-2022 Magnesium [Mass/Vol] 1.8 mg/dL Normal 1.6-2.8 The [facility] Comment on above: Performed By: #### Reid Grullon, CH8 #### S PATHOLOGY LABORATORY [address] [place], [place], Progress Noteson 05-20-2022 [employer] Worker Authentication Interface Message Text [facility] DIVISION OF ACUTE CARE SURGE RY GENERAL INFORMATION EMERGENCY GENERAL SURGERY NOTE Patient Name: Gerry Victoria Admission Date: 05/16/2022 Patient seen and examined on 05/20/2022 INTERVAL HISTORY/EVENTS Background Narrative: Gerry Victoria is a 66 year old female with PMH of hypertension, RLS, GERD, and h/o paroxysmal SVT who presented to [facility] with epigastric pain with nausea and vomiting. Patient describes onset of pain on prior day that has increased since then. Shortly after onset of pain, patient experienced nausea and persistent vomiting, now unable to tolerate PO intake. Denies fevers, chills. She presented to [facility] where EKG demonstrated 'hyperacute T waves' in multiple leads without evidence of STEMI. Troponin originally 139, then 381 on repeat. CTA was performed and did not reveal dissection or PE. CT did demonstrate acute inflammation of the gallbladder with a stone at the neck. A central line was placed for resuscitation purposes and the patient was transferred to [facility] for further evaluation. Prior to transfer, lab work without leukocytosis (10.7) and LFTs/Lipase without abnormality. ACS consulted upon arrival to [facility] for cholecystitis. She was admitted to the SDU for telemetry under EGS. Hospital Course/Procedures: 05/16/2022: Transferred from [facility] ED with cholecystitis, up-trending troponin, and unclear EKG findings. Up-trending leukocytosis, down-trending troponin by PM. Cardiology following. Zosyn started. 05/17/2022: rCT with worsening gallbladder inflammation /o free air or rupture. Percutaneous cholecystotomy tube placement with IR. 05/19/2022: Bilious emesis, NGT placed 05/20/2022: Transferred to [facility] Events in last 24 hours: Transferred to [facility] Afebrile, HDS, no leukocytosis NGT in place No emesis overnight (after NGT placement) Reports improved RUQ pain this morning. Making urine via Fu. BM x0 since admission PHYSICAL EXAM Vitals: Vital sign ranges over the past 24 hours (retrieved 05/20/2022 at 1:09 PM): Tmax (24 hours): 99.9 ???F (37.7 ???C) Pulse Av.4 Min: 60 Max: 95 Systolic (24hrs), Av , Min:115 , Max:164 Diastolic (24hrs), Av, Min:61, Max:107 MAP (mmHg) Av.2 mmHg Min: 79 mmHg Max: 116 mmHg Resp Av.1 Min: 10 Max: 20 SpO2 Av.3 % Min: 93 % Max: 100 % 24 Hour Input/Output UOP: 2.2L via indwelling cath BM x0 since admission Perc Cholecystostomy output: bilious, 250cc Intake/Output Summary (Last 24 hours) at 05/20/2022 1309 Last data filed at 05/20/2022 1000 Gross per 24 hour Intake 2800 ml Output 2880 ml Net -80 ml Physical Exam: -General - Seen resting in bed in SICU in NAD -Neurologic - No focal deficits, clear speech -Cardiovascular - Non-tachycardic and normotensive per monitor, episodes of HTN -Respiratory - seen breathing comfortably on RA -Abdomen - Soft, expected but improved tenderness to RUQ and epigastric region, ND, not peritonitic, perc hole in place with clean dressing over top, moderate amount of bilious output -Psychiatric - normal affect -Extremities - Chronic venous stasis to bilateral LE LABORATORY RESULTS (LAST 24 HOURS) CBC/PT/INR WBC RBC Hgb Hct MCV RDW Plt PT aPTT INR 05/20/22216 4.7 3.36 9.2 27.9 83 15.3 231 Basic Metabolic Panel Na K Cl CO2 Gap Glu BUN Cr Ca Mg PO4 05/20/227 1.8 05/20/22216 137 3.8 100 30 11 105 5 0.71 7.6 Arterial Blood Gases None IMAGING RESULTS - (PERSONALLY REVIEWED) EXAMINATION: CT ABDOMEN/PELVIS W/ CONTRAST 05/17/2022 10:55 AM IMPRESSION: 1. The gallbladder is markedly distended, with wall thickening and surrounding inflammation and fluid consistent with acute cholecystitis. This has worsened when compared to the prior study. 2. Small volume free fluid is present along the margins of the liver and spleen and in the right paracolic gutter and dependent pelvis, increased from the prior study. DIAGNOSIS AND PLAN Diagnoses: Acute Cholecystitis Acute abdominal pain Type II NE Atypical takatsubo PMHx: GERD, HTN, HLD, spinal stenosis, paroxysmal SVT, overactive bladder, RLS, stasis dermatitis, PARTH, fibromyalgia, chronic fatigue syndrome Assessment: 66yo female with acute cholecystitis and associated pain. Admission complicated by initial up-trending troponin and abnormal EKG findings. Troponin now down-trending. Echo 05/16 with findings of LVEF 55% and possible atypical takatsubo for which Cardiology is following. Patient is high risk for OR per cards, therefore, a percutaneous cholecystostomy was placed by IR on 05/17, now wit (more content not included)... Normal The [facility] BASIC METABOLIC PANELon 04-28 Anion gap [Moles/Vol] 10 mmol/L Normal 10-20 The [facility] Comment on above: Performed By: #### Reid Grullon, CH8 #### S PATHOLOGY LABORATORY [address] [place], [place], Calcium [Mass/Vol] 7.7 mg/dL Low 8.4-10.4 The [facility] Comment on above: Performed By: #### Reid Grullon, CH8 #### [facility] [address] [place], [place], Chloride [Moles/Vol] 102 mmol/L Normal 97-111 The [facility] Comment on above: Performed By: #### Reid Grullon, CH8 #### [facility] [address] [place], [place], CO2 [Moles/Vol] 31 mmol/L High 21-30 [facility] Comment on above: Performed By: #### Reid Grullon, CH8 #### [facility] [address] [place], [place], Creatinine [Mass/Vol] 0.74 mg/dL Normal 0.50-1.10 [facility] Comment on above: Performed By: #### Reid Grullon, CH8 #### S PATHOLOGY LABORATORY [address] [place] [address], ESTIMATED GFR (CKD-EPI) 88 mL/min/1.73sqm Normal >=60 The [facility] Comment on above: Result Comment: 2020 CKD EPI Equation using Creatinine without Race Comment: Estimated glomerular filtration rate (eGFR) is calculated without a race coefficient. Values should be interpreted in the context of the patient's full clinical presentation. Reference: 1. eLonardo C, Makayla M, Ilya FLYNN, et al.. A Unifying Approach for GFR Estimation: Recommendations of the NKF-ASN Task Force on Reassessing the Inclusion of Race in Diagnosing Kidney Disease. [place] Journal of Kidney Diseases 2021;79(2):268-88.e1. 2. N Engl J Med 2020 Vol. 385 Issue 19 Pages 7510-8634 Performed By: #### Reid Grullon, CH8 #### S PATHOLOGY LABORATORY [address] [place] [address], Glucose [Mass/Vol] 120 mg/dL High 80-116 The [facility] Comment on above: Performed By: #### Reid Grullon, CH8 #### S PATHOLOGY LABORATORY [address] [place] [address], Potassium [Moles/Vol] 3.5 mmol/L Normal 3.3-5.3 The [facility] Comment on above: Performed By: #### Reid Grullon, CH8 #### S PATHOLOGY LABORATORY [address] [place] [address], Sodium [Moles/Vol] 139 mmol/L Normal 135-148 The [facility] Comment on above: Performed By: #### Reid Grullon, CH8 #### S PATHOLOGY LABORATORY [address] [place] [address], Urea nitrogen [Mass/Vol] 8 mg/dL Normal 8-22 The [facility] Comment on above: Performed By: #### Reid Grullon, CH8 #### S PATHOLOGY LABORATORY [address] [place] [address], COMPLETE BLOOD COUNTon 05-19 Erythrocyte distribution wid th (RBC) [Ratio] 15.6 % High 11.5-14.5 The [facility] Comment on above: Performed By: #### Reid Grullon, CH8 #### [facility] PATHOLOGY LABORATORY [address] [place] [address], Hematocrit (Bld) [Volume fraction] 28.2 % Low 3 6.0-46.0 The [facility] Comment on above: Performed By: #### Reid Grullon, CH8 #### [facility] PATHOLOGY LABORATORY [address] [place] [address], Hemoglobin (Bld) [Mass/Vol] 9.4 g/dL Low 12.0-15. 0 The [facility] Comment on above: Performed By: #### Reid Grullon, CH8 #### [facility] PATHOLOGY LABORATORY [address] [place] [address], MCH (RBC) [Entitic mass] 27.7 pg Normal 26.0-34.0 The [facility] Comment on above: Performed By: #### Reid Grullon, CH8 #### [facility] PATHOLOGY LABORATORY [address] [place] [address], MCHC (RBC) [Mass/Vol] 33.6 g/dL Normal 32.0-35.9 The [facility] Comment on above: Performed By: #### Reid Grullon, CH8 #### [facility] PATHOLOGY LABORATORY [address] [place] [address], MCV (RBC) [Entitic vol] 83 fL Normal 80-100 T [facility] Comment on above: Performed By: #### Reid Grullon, CH8 #### [facility] PATHOLOGY LABORATORY [address] [place] [address], Platelet mean volume (Bld) [ Entitic vol] 7.8 fL Normal 7.5-11.2 The [facility] Comment on above: Performed By: #### Reid Grullon, CH8 #### [facility] PATHOLOGY LAB[facility]ATORY [address] [place] [address], Platelets (Bld) [#/Vol] 199 10*3/uL Normal 150-400 The [facility] Comment on above: Performed By: #### Reid Grullon, CH8 #### [facility] PATHOLOGY LABORATORY [address] [place] [address], RBC (Bld) [#/Vol] 3.41 10*6/uL Low 4.00-5.20 The [facility] Comment on above: Performed By: #### Reid Grullon CH8 #### S PATHOLOGY LABORATORY [address] [place] [address], WBC (Bld) [#/Vol] 5.3 10*3/uL Normal 4.5-11.5 [facility] Comment on above: Performed By: #### Reid Grullon CH8 #### [facility] PATHOLOGY LABORATORY [address] [place] [address], Care Plan Noteon 05-19-2022 [employer] Worker Authentication Interface Message Text Problem: Routine Care: Goal: Patient care will be managed and maintained throughout hospital stay per unit specific routine care procedure Outcome: Progressing Problem: Acute Pain: Goal: Ability to identify pain intensity on a pain scale and rate it consistently will be achieved and maintained Outcome: Progressing Goal: Acceptable level of pain which allows the patient to achieve functional outcome goals Outcome: Progressing Problem: Altered Elimination: Goal: Establishment of individualized urinary routine Outcome: Progressing Problem: Risk for Infection: Goal: Risk for infection will be reduced Outcome: Progressing Problem: Impaired Skin Integrity: Goal: Skin integrity will improve and/or be maintained Outcome: Progressing Pt oob to chair and encouraged to adjust q2 Problem: VTE Prophylaxis: Goal: Will be free of DVT Outcome: Progressing Problem: Safety: Goal: Patient will remain free of falls during hospital stay Outcome: Progressing Goal: Free from injury during hospitalization Outcome: Progressing Pt given call light and reminded to use Problem: Discharge Planning: Goal: Discharge needs of the adult patient will be met Outcome: Progressing Problem: Alteration in Tissue Perfusion: Cardiac: Goal: Promote adequate perfusion and limit complications resulting from myocardial oxygen supply, demand and imbalance Outcome: Progressing Normal The [facility] GLUCOSE, FINGERSTICK-IN OFFI CEon 05-19-2022 Glucose [Mass/Vol] 80 mg/dL Normal 80-116 [facility] Comment on above: Performed By: #### SAMMY Hutton #### S PATHOLOGY LABORATORY [address] [place] [address], Glucose [Mass/Vol] 90 mg/dL Normal 80-116 [facility] Comment on above: Performed By: #### 8 [id number] #### NURSING GLUCOSE PROGRAM [address] [place], [place], Glucose [Mass/Vol] 116 mg/dL Normal 80-116 The [facility] Comment on above: Performed By: #### T S #### S PATHOLOGY LABORATORY [address] [place] [address], Glucose [Mass/Vol] 106 mg/dL Normal 80-116 The [facility] Comment on above: Performed By: #### Reid Grullon, CH8 #### S PATHOLOGY LABORATORY [address] [place] [address], Glucose [Mass/Vol] 106 mg/dL Normal 80-116 The [facility] Comment on above: Performed By: #### Reid Grullon, CH8 #### S PATHOLOGY LABORATORY [address] [place] [address], HEPATIC FUNCTION PANELon Albumin [Mass/Vol] 2.8 g/dL Low 3.4-5.1 The [facility] Comment on above: Performed By: #### Reid Grullon, CH8 #### S PATHOLOGY LABORATORY [address] [place] [address], ALK 63 IU/L Normal 40-200 The [facility] Comment on above: Performed By: #### Reid Grullon, CH8 #### S PATHOLOGY LABORATORY [address] [place] [address], ALT [Catalytic activity/Vol] 8 U/L Normal 7-40 The [facility] Comment on above: Performed By: #### Reid Grullon, CH8 #### S PATHOLOGY LABORATORY [address] [place] [address], AST [Catalytic activity/Vol] 18 U/L Normal 7-40 The [facility] Comment on above: Performed By: #### Reid Grullon, CH8 #### S PATHOLOGY LABORATORY [address] [place] [address], Bilirubin [Mass/Vol] 0.9 mg/dL Normal 0.1-1.5 The [facility] Comment on above: Performed By: #### Reid Grullon, CH8 #### S PATHOLOGY LABORATORY [address] [place] [address], Bilirubin.direct [Mass/Vol] 0.48 mg/dL High 0.10-0.3 0 [facility] Comment on above: Performed By: #### M Yadi, ADEEL8 #### [facility] [address] [place], [place], Protein [Mass/Vol] 4.7 g/dL Low 5.7-8.1 The [facility] Comment on above: Performed By: #### Reid Grullon, ADEEL8 #### [facility] [address] [place], [place], MAGNESIUMon 05-19-2022 Magnesium [Mass/Vol] 1.8 mg/dL Normal 1.6-2.8 [facility] Comment on above: Performed By: #### Reid Grullon, ADEEL8 #### [facility] [address] [place], [place], Progress Noteson 05-19-2022 [employer] Worker Authentication Interface Message Text [facility] DIVISION OF ACUTE CARE SURGE RY GENERAL INFORMATION EMERGENCY GENERAL SURGERY NOTE Patient Name: Gerry Victoria Admission Date: 05/16/2022 Patient seen and examined on 05/19/2022 INTERVAL HISTORY/EVENTS Background Narrative: Gerry Victoria is a 66 year old female with PMH of hypertension, RLS, GERD, and h/o paroxysmal SVT who presented to [facility] with epigastric pain with nausea and vomiting. Patient describes onset of pain on prior day that has increased since then. Shortly after onset of pain, patient experienced nausea and persistent vomiting, now unable to tolerate PO intake. Denies fevers, chills. She presented to [facility] where EKG demonstrated 'hyperacute T waves' in multiple leads without evidence of STEMI. Troponin originally 139, then 381 on repeat. CTA was performed and did not reveal dissection or PE. CT did demonstrate acute inflammation of the gallbladder with a stone at the neck. A central line was placed for resuscitation purposes and the patient was transferred to [facility] for further evaluation. Prior to transfer, lab work without leukocytosis (10.7) and LFTs/Lipase without abnormality. ACS consulted upon arrival to [facility] for cholecystitis. She was admitted to the SDU for telemetry under EGS. Hospital Course/Procedures: 05/16/2022: Transferred from [facility] ED with cholecystitis, up-trending troponin, and unclear EKG findings. Up-trending leukocytosis, down-trending troponin by PM. Cardiology following. Zosyn started. 05/17/2022: rCT with worsening gallbladder inflammation /o free air or rupture. Percutaneous cholecystotomy tube placement with IR. 05/19/2022: Bilious emesis, NGT placed Events in last 24 hours: Emesis x1 ~50cc (bilious) during AM rounds. Afebrile, HDS, no leukocytosis Reports improved RUQ pain this morning. Making urine via Fu. BM x0 since admission PHYSICAL EXAM Vitals: Vital sign ranges over the past 24 hours (retrieved 05/19/2022 at 9:27 AM): Tmax (24 hours): 99.1 ???F (37.3 ???C) Pulse Av.1 Min: 62 Max: 85 Systolic (24hrs), Av , Min:90 , Max:171 Diastolic (24hrs), Av, Min:50, Max:102 MAP (mmHg) Av.9 mmHg Min: 65 mmHg Max: 107 mmHg Resp Av.1 Min: 11 Max: 27 SpO2 Av.5 % Min: 64 % Max: 100 % 24 Hour Input/Output UOP: 2.8L via indwelling cath BM x0 since admission Perc Cholecystostomy output: bilious, 430cc Intake/Output Summary (Last 24 hours) at 05/19/2022 0936 Last data filed at 05/19/2022 0800 Gross per 24 hour Intake 2290 ml Output 2885 ml Net -595 ml Physical Exam: -General - Seen resting in bed in SICU in NAD -Neurologic - No focal deficits, clear speech -Cardiovascular - Non-tachycardic and normotensive per monitor, episodes of hypotension per chart review ~90s SBP -Respiratory - seen breathing comfortably on 1L overnight, saturating at least 98%; since weaned to room air again this morning per chart review -Abdomen - Soft, expected but improved tenderness to RUQ and epigastric region, ND, not peritonitic, perc hole in place with clean dressing over top, moderate amount of bilious output -Psychiatric - normal affect -Extremities - Chronic venous stasis to bilateral LE LABORATORY RESULTS (LAST 24 HOURS) CBC/PT/INR WBC RBC Hgb Hct MCV RDW Plt PT aPTT INR 05/19/22 0355 5.3 3.41 9.4 28.2 83 15.6 199 Basic Metabolic Panel Na K Cl CO2 Gap Glu BUN Cr Ca Mg PO4 05/19/22 0355 1.8 05/19/22 0355 139 3.5 102 31 10 120 8 0.74 7.7 Arterial Blood Gases None IMAGING RESULTS - (PERSONALLY REVIEWED) EXAMINATION: CT ABDOMEN/PELVIS W/ CONTRAST 05/17/2022 10:55 AM FINDINGS: Included images of the lower thorax: Trace bilateral pleural effusions are present with adjacent atelectasis, new from the prior study. Hepatobiliary: The gallbladder is markedly distended, with wall thickening and surrounding inflammation and fluid consistent with acute cholecystitis. This has worsened when compared to the prior study. No gallstones are identified. Pancreas: Fatty infiltration of the pancreas is present, most significantly involving the head and body, unchanged. Spleen: Unremarkable Adrenal Glands: Unremarkable Kidneys, ureters, and bladder: No calculi or hydroureteronephrosis. The urinary bladder is collapsed around a Fu catheter. Abdominal and pelvic vasculature: Atherosclerotic wall calcifications are present with 3.3 cm aneurysm of the infrarenal abdominal aorta. GI tract: A large amount of fecal material is present throughout the right colon and transverse colon. No evidence of obstruction. The appendix is within normal limits. Peritoneum and retroperitoneum: Small vol (more content not included)... Normal [facility] XR ABDOMEN 1 VIEW APon 05-19 XR ABDOMEN 1 VIEW AP EXAMINATION: XR ABD OMEN 1 VIEW AP 05/19/2022 08:49 AM CLINICAL HISTORY: NGT placement, eval for ileus ASSOCIATED DIAGNOSIS: ORDERING PROVIDER: PRAVIN AHUJA TECHNOLOGISTS NOTE: COMPARISON: 05/17/2022 CT study FINDINGS: Cholecystostomy catheter is noted in the right upper quadrant. NG tube is looped in the fundus of the stomach. The tip extends towards the midportion of the stomach. Bowel pattern is nonobstructive. Moderate amount of stool is noted in the colon. IMPRESSION: 1. NG tube is looped in the fundus of the stomach with the tip extending in the mid body. Cholecystostomy catheter is noted in the right abdomen. 2. Visualized portions of the bowel loops are nonspecific, with moderate amount of stool. MACRO: None Normal [facility] BASIC METABOLIC PANELon 04-28 Anion gap [Moles/Vol] 12 mmol/L Normal 10-20 The [facility] Comment on above: Performed By: #### Reid Grullon CH8 #### S PATHOLOGY LABORATORY [address] [place] [address], Calcium [Mass/Vol] 7.7 mg/dL Low 8.4-10.4 The [facility] Comment on above: Performed By: ###Willi Grullon CH8 #### [facility] [address] [place] [address], Chloride [Moles/Vol] 101 mmol/L Normal 97-111 [facility] Comment on above: Performed By: #### Reid Grullon CH8 #### [facility] [address] [place] [address], CO2 [Moles/Vol] 27 mmol/L Normal 21-30 [facility] Comment on above: Performed By: #### Reid Grullon CH8 #### [facility] [address] [place] [address], Creatinine [Mass/Vol] 0.78 mg/dL Normal 0.50-1.10 [facility] Comment on above: Performed By: #### Reid Grullon, CH8 #### S PATHOLOGY LABORATORY [address] [place] [address], ESTIMATED GFR (CKD-EPI) 83 mL/min/1.73sqm Normal >=60 [facility] Comment on above: Result Comment: 2020 CKD EPI Equation using Creatinine without Race Comment: Estimated glomerular filtration rate (eGFR) is calculated without a race coefficient. Values should be interpreted in the context of the patient's full clinical presentation. Reference: 1. Leonardo C, Makayla M, Ilya FLYNN, et al.. A Unifying Approach for GFR Estimation: Recommendations of the NKF-ASN Task Force on Reassessing the Inclusion of Race in Diagnosing Kidney Disease. [place] Journal of Kidney Diseases 2021;79(2):268-88.e1. 2. N Engl J Med 2020 Vol. 385 Issue 19 Pages 2357-4661 Performed By: #### Reid Grullon CH8 #### S [facility] [address] [place] [address], Glucose [Mass/Vol] 77 mg/dL Low 80-116 The [facility] Comment on above: Performed By: #### Reid Grullon CH8 #### S [facility] [address] [place] [address], Potassium [Moles/Vol] 3.9 mmol/L Normal 3.3-5.3 [facility] Comment on above: Performed By: #### Reid Grullon CH8 #### S [facility] [address] [place] [address], Sodium [Moles/Vol] 136 mmol/L Normal 135-148 The [facility] Comment on above: Performed By: #### Reid Grullon CH8 #### S [facility] [address] [place] [address], Urea nitrogen [Mass/Vol] 12 mg/dL Normal 8-22 The [facility] Comment on above: Performed By: #### Reid Grullon CH8 #### S PATH[facility] LAB[facility]ATORY [address] [place] [address], COMPLETE BLOOD COUNTon 05-18 Erythrocyte distribution wid th (RBC) [Ratio] 15.3 % High 11.5-14.5 [facility] Comment on above: Performed By: #### Reid Grullon, CH8 #### [facility] [address] [place] [address], Hematocrit (Bld) [Volume fraction] 28.2 % Low 3 6.0-46.0 [facility] Comment on above: Performed By: #### Reid Grullon, CH8 #### [facility] [address] [place] [address], Hemoglobin (Bld) [Mass/Vol] 10.1 g/dL Low 12.0-15. 0 [facility] Comment on above: Performed By: #### Reid Grullon, CH8 #### [facility] [address] [place] [address], MCH (RBC) [Entitic mass] 29.2 pg Normal 26.0-34.0 [facility] Comment on above: Performed By: #### Reid Grullon, CH8 #### [facility] [address] [place] [address], MCHC (RBC) [Mass/Vol] 35.6 g/dL Normal 32.0-35.9 [facility] Comment on above: Performed By: #### Reid Grullon, CH8 #### [facility] [address] [place] [address], MCV (RBC) [Entitic vol] 82 fL Normal 80-100 T [facility] Comment on above: Performed By: #### Reid Grullon, CH8 #### [facility] [address] [place] [address], Platelet mean volume (Bld) [ Entitic vol] 7.6 fL Normal 7.5-11.2 [facility] Comment on above: Performed By: #### Reid Grullon, CH8 #### [facility] [address] [place] [address], Platelets (Bld) [#/Vol] 177 10*3/uL Normal 150-400 [facility] Comment on above: Performed By: #### Reid Grullon, CH8 #### [facility] [address] [place] [address], RBC (Bld) [#/Vol] 3.45 10*6/uL Low 4.00-5.20 [facility] Comment on above: Performed By: #### M Yadi, CH8 #### S [facility] [address] [place] [address], WBC (Bld) [#/Vol] 9.4 10*3/uL Normal 4.5-11.5 [facility] Comment on above: Performed By: #### Reid Grullon, CH8 #### S [facility] [address] [place] [address], GLUCOSE, FINGERSTICK-IN OFFI CEon 05-18-2022 Glucose [Mass/Vol] 93 mg/dL Normal 80-116 The [facility] Comment on above: Performed By: #### T S #### [facility] [address] [place] [address], Glucose [Mass/Vol] 98 mg/dL Normal 80-116 The [facility] Comment on above: Performed By: #### T S #### [facility] [address] [place] [address], Glucose [Mass/Vol] 118 mg/dL High 80-116 [facility] Comment on above: Result Comment: Verito aly RN, APN, MD Performed By: #### T S #### [facility] [address] [place] [address], Glucose [Mass/Vol] 125 mg/dL High 80-116 The [facility] Comment on above: Result Comment: Verito aly RN, APN, MD Performed By: #### Reid Grullon, CH8 #### [facility] [address] [place] [address], Glucose [Mass/Vol] 66 mg/dL Low 80-116 [facility] Comment on above: Result Comment: Verito aly RN, APN, MD Performed By: #### M Yadi, CH8 #### S [facility] [address] [place] [address], HIGH SENSITIVITY TROPONIN Io n 05-18-2022 HS TROPONIN I 60 ng/L Critically high <=15 [facility] Comment on above: Order Comment: High Sensitivity Cardiac Troponin I (hsTnI) assay has replaced the conventional troponin assay at [facility].All results are reported in whole numbers representing ng/L.Repeat test times for ruling out acute coronary syndrome (ACS) are every 2 hours instead of every 6-8 hours.[id number] conventional troponin (I-stat) will remain available in the [facility] ??? results obtained by different labs or methods are not comparable.Elevated troponin can result from acute myocardial infarction (coronary etiology) or myocardial injury (non-coronary etiology) ??? always consider both.For ruling out acute coronary syndrome (ACS), lab values are always used in conjunction with clinical risk assessment (e.g., HEART score).Interpreting initial value in ruling out ACSLess than 5 ng/L ??? below lower limit of quantification ??? essentially rules out ACS if chest pain began more than 3 hours prior to test and assessed risk is low5 - 49 ng/L ??? indeterminate ??? consider repeat value in 2 hours depending on risk [id number] ng/L or greater??? concern for ACS or myocardial injuryInterpreting repeated values in ruling out ACS.Always compare to initial value obtained:Increase of less than 5 ng/L ??? essentially rules out ACS if chest pain began more than 3 hours prior to initial test and assessed risk is lowIncrease of 5 - 19 ng/L ??? indeterminate ??? consider another repeat value in 2 hours depending on risk assessmentIncrease of 20 ng/L or greater ??? Concern for ACS or myocardial injuryAny absolute value of 50 ng/L or greater ??? concern for ACS or myocardial injuryIntermediate hsTnI values DO NOT mandate admission to a cardiology or telemetry unit. They need to be interpreted within the clinical context using provider judgement.When using hsTnI to calculate the HEART score, use the 99 % Upper Reference Limit of 15 ng/L as the normal limit (i.e. <=15 ng/L = 0 points, 16-45 ng/L = 1 points, >45 ng/L = 2 points). Performed By: #### H STRP ####[facility] [id number] [place], [address] MAGNESIUMon 05-18-2022 Magnesium [Mass/Vol] 2.3 mg/dL Normal 1.6-2.8 The [facility] Comment on above: Performed By: #### M SAMMY Grullon #### [facility] [address] [place], [address] Progress Noteson 05-18-2022 [employer] Worker Authentication Interface Message Text [facility] DIVISION OF ACUTE CARE SURGE RY GENERAL INFORMATION EMERGENCY GENERAL SURGERY NOTE Patient Name: Gerry Victoria Admission Date: 05/16/2022 Patient seen and examined on 05/18/2022 INTERVAL HISTORY/EVENTS Background Narrative: Gerry Victoria is a 66 year old female with PMH of hypertension, RLS, GERD, and h/o paroxysmal SVT who presented to [facility] with epigastric pain with nausea and vomiting. Patient describes onset of pain on prior day that has increased since then. Shortly after onset of pain, patient experienced nausea and persistent vomiting, now unable to tolerate PO intake. Denies fevers, chills. She presented to [facility] where EKG demonstrated 'hyperacute T waves' in multiple leads without evidence of STEMI. Troponin originally 139, then 381 on repeat. CTA was performed and did not reveal dissection or PE. CT did demonstrate acute inflammation of the gallbladder with a stone at the neck. A central line was placed for resuscitation purposes and the patient was transferred to [facility] for further evaluation. Prior to transfer, lab work without leukocytosis (10.7) and LFTs/Lipase without abnormality. ACS consulted upon arrival to [facility] for cholecystitis. She was admitted to the SDU for telemetry under EGS. Hospital Course/Procedures: 05/16/2022: Transferred from [facility] ED with cholecystitis, up-trending troponin, and unclear EKG findings. Up-trending leukocytosis, down-trending troponin by PM. Cardiology following. Dian started. 05/17/2022: rCT with worsening gallbladder inflammation /o free air or rupture. Percutaneous cholecystotomy tube placement with IR. Events in last 24 hours: No acute events overnight. Perc merlyn successfully placed by IR yesterday, now with 425cc bilious output since placement. Reports ongoing RUQ pain this morning. Making urine via Fu. BM x0 over last 24 hours. Denies n/v, NPO. PHYSICAL EXAM Vitals: Vital sign ranges over the past 24 hours (retrieved 05/18/2022 at 8:16 AM): Tmax (24 hours): 99.4 ???F (37.4 ???C) Pulse Av Min: 65 Max: 88 Systolic (24hrs), Av , Min:73 , Max:130 Diastolic (24hrs), Av, Min:44, Max:99 MAP (mmHg) Av.2 mmHg Min: 55 mmHg Max: 107 mmHg Resp Av.7 Min: 8 Max: 20 SpO2 Av.2 % Min: 96 % Max: 100 % 24 Hour Input/Output UOP: 2060cc via indwelling cath BM x0 since admission Perc Cholecystostomy output: bilious, 425cc Intake/Output Summary (Last 24 hours) at 05/18/2022 0816 Last data filed at 05/18/2022 0700 Gross per 24 hour Intake 3023.33 ml Output 2485 ml Net 538.33 ml Physical Exam: -General - Seen resting in bed in SICU in NAD -Neurologic - No focal deficits, clear speech -Cardiovascular - Non-tachycardic and normotensive per monitor, episodes of hypotension per chart review -Respiratory - seen breathing comfortably on 1L overnight, saturating at least 98%; since weaned to room air again this morning per chart review -Abdomen - Soft, ongoing but improved tenderness to RUQ and epigastric region, non-distended, not peritonitic, perc hole in place with clean dressing over top, new bag attached with small amount of bilious output -Psychiatric - normal affect -Extremities - ESCOBEDO equally, evidence of chronic venous stasis to bilateral LE LABORATORY RESULTS (LAST 24 HOURS) CBC/PT/INR WBC RBC Hgb Hct MCV RDW Plt PT aPTT INR 05/18/22227 9.4 3.45 10.1 28.2 82 15.3 177 Basic Metabolic Panel Na K Cl CO2 Gap Glu BUN Cr Ca Mg PO4 05/18/22227 2.3 05/18/22227 136 3.9 101 27 12 77 12 0.78 7.7 Arterial Blood Gases None IMAGING RESULTS - Last 24 hours (PERSONALLY REVIEWED) EXAMINATION: CT ABDOMEN/PELVIS W/ CONTRAST 05/17/2022 10:55 AM FINDINGS: Included images of the lower thorax: Trace bilateral pleural effusions are present with adjacent atelectasis, new from the prior study. Hepatobiliary: The gallbladder is markedly distended, with wall thickening and surrounding inflammation and fluid consistent with acute cholecystitis. This has worsened when compared to the prior study. No gallstones are identified. Pancreas: Fatty infiltration of the pancreas is present, most significantly involving the head and body, unchanged. Spleen: Unremarkable Adrenal Glands: Unremarkable Kidneys, ureters, and bladder: No calculi or hydroureteronephrosis. The urinary bladder is collapsed around a Fu catheter. Abdominal and pelvic vasculature: Atherosclerotic wall calcifications are present with 3.3 cm aneurysm of the infrarenal abdominal aorta. GI tract: A large amount of fecal material is present throughout the right colon and transverse colon. No evidence of obstructi (more content not included)... Normal [facility] AEROBIC WOUND CULTUREon 04-28 AEROBIC WOUND CULTURE LACTOBACILLUS SPEC IES Rare Lactobacillus species No further workup GRAM STAIN: 2+ Polymorphonuclear Leukocytes No Squamous Epithelial Cells seen 2+ Gram Positive Bacilli Normal [facility] Comment on above: Performed By: #### C PYOG #### [facility] Pathology [address] [facility] [place], [place] BASIC METABOLIC PANELon - Anion gap [Moles/Vol] 11 mmol/L Normal 10-20 The [facility] Comment on above: Performed By: #### T S #### [facility] [address] [place] [address], Calcium [Mass/Vol] 8.1 mg/dL Low 8.4-10.4 The [facility] Comment on above: Performed By: #### T S #### [facility] [address] [place] [address], Chloride [Moles/Vol] 97 mmol/L Normal 97-111 The [facility] Comment on above: Performed By: #### T S #### [facility] [address] [place] [address], CO2 [Moles/Vol] 27 mmol/L Normal 21-30 [facility] Comment on above: Performed By: #### T S #### S PATHOLOGY LABORATORY [address] [place] [address], Creatinine [Mass/Vol] 0.97 mg/dL Normal 0.50-1.10 The [facility] Comment on above: Performed By: #### T S #### S PATHOLOGY LABORATORY [address] [place] [address], ESTIMATED GFR (CKD-EPI) 64 mL/min/1.73sqm Normal >=60 The [facility] Comment on above: Result Comment: 2020 CKD EPI Equation using Creatinine without Race Comment: Estimated glomerular filtration rate (eGFR) is calculated without a race coefficient. Values should be interpreted in the context of the patient's full clinical presentation. Reference: 1. Leonardo C, Makayla M, Ilya FLYNN, et al.. A Unifying Approach for GFR Estimation: Recommendations of the NKF-ASN Task Force on Reassessing the Inclusion of Race in Diagnosing Kidney Disease. [place] Journal of Kidney Diseases 2021;79(2):268-88.e1. 2. N Engl J Med 1 Vol. 385 Issue 19 Pages 7514-4161 Performed By: #### T S #### [facility] [address] [place] [address], Glucose [Mass/Vol] 96 mg/dL Normal 80-116 The [facility] Comment on above: Performed By: #### T S #### S PATH[facility] LAB[facility]ATORY [address] [place] [address], Potassium [Moles/Vol] 4.1 mmol/L Normal 3.3-5.3 The [facility] Comment on above: Performed By: #### T S #### S PATH[facility] LAB[facility]ATORY [address] [place] [address], Sodium [Moles/Vol] 131 mmol/L Low 135-148 The [facility] Comment on above: Performed By: #### T S #### [facility] [address] [place], [place], Urea nitrogen [Mass/Vol] 14 mg/dL Normal 8-22 The [facility] Comment on above: Performed By: #### T S #### [facility] [address] [place] [address], BLOOD CULTUREon 05-17-2022 Bacteria identified Cx Nom (Bld) C BLOOD : No Growth Normal The [facility] Comment on above: Performed By: #### [id number] #### NURSING GLUCOSE PROGRAM [address] [place], [place], CALCIUM, IONIZEDon 3 CR ICA 1.06 mmol/L Low 1.10-1.40 The [facility] Comment on above: Performed By: #### T S #### [facility] [address] [place], [place], COMPLETE BLOOD COUNTon 05-17 Erythrocyte distribution wid th (RBC) [Ratio] 15.8 % High 11.5-14.5 The [facility] Comment on above: Performed By: #### C H8, HEPATIC #### S PATHOLOGY LABORATORY [address] [place], [place], Hematocrit (Bld) [Volume fraction] 36.4 % Normal 3 6.0-46.0 The [facility] Comment on above: Performed By: #### C H8, HEPATIC #### S PATH[facility] LABORATORY [address] [place], [place], Hemoglobin (Bld) [Mass/Vol] 12.1 g/dL Normal 12.0-15. 0 [facility] Comment on above: Performed By: #### C Valeri8, HEPATIC #### S PATH[facility] LABORATORY [address] [place] [address], MCH (RBC) [Entitic mass] 27.7 pg Normal 26.0-34.0 [facility] Comment on above: Performed By: #### Meenu Trammell8, HEPATIC #### S PATH[facility] LABOR[facility]ORY [address] [place] [address], MCHC (RBC) [Mass/Vol] 33.3 g/dL Normal 32.0-35.9 The [facility] Comment on above: Performed By: #### Meenu Mccormick, HEPATIC #### S PATH[facility] [address] [place] [address], MCV (RBC) [Entitic vol] 83 fL Normal 80-100 T [facility] Comment on above: Performed By: #### Meenu Mccormick, HEPATIC #### [facility] [address] [place] [address], Platelet mean volume (Bld) [ Entitic vol] 7.8 fL Normal 7.5-11.2 [facility] Comment on above: Performed By: #### Meenu Mccormick, HEPATIC #### [facility] [address] [place] [address], Platelets (Bld) [#/Vol] 232 10*3/uL Normal 150-400 The [facility] Comment on above: Performed By: #### Meenu Mccormick, HEPATIC #### S PATH[facility] LABORATORY [address] [place] [address], RBC (Bld) [#/Vol] 4.37 10*6/uL Normal 4.00-5.20 [facility] Comment on above: Performed By: #### Meenu Mccormick, HEPATIC #### S PATH[facility] LABORATORY [address] [place] [address], WBC (Bld) [#/Vol] 12.3 10*3/uL High 4.5-11.5 [facility] Comment on above: Performed By: #### Meenu Mccormick, HEPATIC #### S PATHOLOGY LABORATORY [address] [place], [address] [address] ABDOMEN/PELVIS W/ CONTRAS Ton 05-17-2022 CT ABDOMEN/PELVIS W/ CONTRAST EXAMINATION: CT ABDOMEN/PELVIS W/ CONTRAST 05/17/2022 10:55 AM CLINICAL HISTORY: diffuse abdominal pain, concern for perforation gallbladder vs perforated viscus ASSOCIATED DIAGNOSIS: diffuse abdominal pain, concern for perforation gallbladder vs perforated viscus ORDERING PROVIDER: ZUL[employer]CH[employer]OLOG[employer] NOTE: COMPARISON: CT BODY IMAGE IMPORT(RHETT) 05/15/2022, 6:22 PM TECHNIQUE: Contiguous axial images were obtained through the abdomen and pelvis from the level of the diaphragmatic domes through the pubic symphysis following bolus administration of intravenous contrast. MPR sagittal and coronal reconstructions were obtained from the axial data. Before infusion of intravenous contrast, radiology personnel investigated the possibility of an allergic history and of any history of reaction to iodinated contrast material. Contrast Protocol: Omnipaque 350 [>or =100lb] 100 ml [<100 lb] 1 ml per 1 lb. INTRA-PROCEDURE MEDS: iohexol (OMNIPAQUE) 350 MG/ML injection 100 mL Route: Intravenous Push FINDINGS: Included images of the lower thorax: Trace bilateral pleural effusions are present with adjacent atelectasis, new from the prior study. Hepatobiliary: The gallbladder is markedly distended, with wall thickening and surrounding inflammation and fluid consistent with acute cholecystitis. This has worsened when compared to the prior study. No gallstones are identified. Pancreas: Fatty infiltration of the pancreas is present, most significantly involving the head and body, unchanged. Spleen: Unremarkable Adrenal Glands: Unremarkable Kidneys, ureters, and bladder: No calculi or hydroureteronephrosis. The urinary bladder is collapsed around a Fu catheter. Abdominal and pelvic vasculature: Atherosclerotic wall calcifications are present with 3.3 cm aneurysm of the infrarenal abdominal aorta. GI tract: A large amount of fecal material is present throughout the right colon and transverse colon. No evidence of obstruction. The appendix is within normal limits. Peritoneum and retroperitoneum: Small volume free fluid is present along the margins of the liver and spleen and in the right paracolic gutter and dependent pelvis, increased from the prior study. Lymph Nodes: No abdominal or pelvic lymphadenopathy. Uterus and adnexa: Status post hysterectomy. Visualized musculoskeletal structures: No acute fracture or destructive osseous lesion is identified. There is degenerative disc disease and facet arthropathy at several levels of the lumbosacral spine, with grade I anterolisthesis of L4 on L5. IMPRESSION: 1. The gallbladder is markedly distended, with wall thickening and surrounding inflammation and fluid consistent with acute cholecystitis. This has worsened when compared to the prior study. 2. Small volume free fluid is present along the margins of the liver and spleen and in the right paracolic gutter and dependent pelvis, increased from the prior study. MACRO: None Normal The [facility] HEPATIC FUNCTION PANELon Albumin [Mass/Vol] 3.2 g/dL Low 3.4-5.1 The [facility] Comment on above: Performed By: #### C H8, HEPATIC #### [facility] [address] [place] [address], ALK 72 IU/L Normal 40-200 The [facility] Comment on above: Performed By: #### C H8, HEPATIC #### [facility] [address] [place] [address], ALT [Catalytic activity/Vol] 12 U/L Normal 7-40 The [facility] Comment on above: Performed By: #### C H8, HEPATIC #### [facility] [address] [place] [address], AST [Catalytic activity/Vol] 25 U/L Normal 7-40 The [facility] Comment on above: Performed By: #### C H8, HEPATIC #### [facility] [address] [place] [address], Bilirubin [Mass/Vol] 3.9 mg/dL High 0.1-1.5 The [facility] Comment on above: Performed By: #### C H8, HEPATIC #### [facility] [address] [place] [address], Bilirubin.direct [Mass/Vol] 2.30 mg/dL High 0.10-0.3 0 The [facility] Comment on above: Performed By: #### C H8, HEPATIC #### [facility] [address] [place] [address], Protein [Mass/Vol] 5.2 g/dL Low 5.7-8.1 [facility] Comment on above: Performed By: #### C H8, HEPATIC #### [facility] [address] [place] [address], LACTIC ACIDon 05-17-2022 CR LACT 1.4 mmol/L Normal 0.5-2.0 The [facility] Comment on above: Performed By: #### T S #### S PATH[facility]Y LABORATORY [address] [place] [address], MAGNESIUMon 05-17-2022 Magnesium [Mass/Vol] 1.9 mg/dL Normal 1.6-2.8 The [facility] Comment on above: Performed By: #### C H8, HEPATIC #### S PATH[facility] LABORATORY [address] [place] [address], PARTIAL THROMBOPLASTIN TIMEo n 05-17-2022 aPTT Coag (Bld) [Time] 34 s Normal 25-37 Th e [facility] Comment on above: Performed By: #### Reid Grullon, CH8 #### S [facility] [address] [place] [address], PHOSPHORUSon 05-17-2022 Phosphate [Mass/Vol] 3.9 mg/dL Normal 2.3-4.2 The [facility] Comment on above: Performed By: #### C H8, HEPATIC #### S PATH[facility] LABORATORY [address] [place] [address], PROTHROMBIN TIME AND INRon 0 05-17-2022 INR Coag (PPP) [Relative time] 1.61 {INR} High 0.90- 1.10 The [facility] Comment on above: Performed By: #### Reid Grullon, CH8 #### S [facility] [address] [place] [address], PT Coag (PPP) [Time] 18.1 s High 9.7-12.9 The [facility] Comment on above: Performed By: #### Reid Grullon, CH8 #### S [facility] LABORATORY [address] [place] [address], Progress Noteson 05-17-2022 [employer] Utility Worker Authentication Interface Message Text Acute Care Surgery Post-Operative Check Gerry Victoria [id number] Procedure: US guided percutaneous cholecystostomy tube placement with IR Findings: Bilious output. Subjective: Patient reports expected post-procedural pain, improved from this morning. States pain is well controlled. Endorses diminished appetite. Denies nausea or vomiting, denies chest pain or shortness of breath. Intake/Output Summary (Last 24 hours) at 05/17/2022 1654 Last data filed at 05/17/2022 1600 Gross per 24 hour Intake 2750 ml Output 1934 ml Net 816 ml PHYSICAL EXAMINATION BP 90/49 Pulse 71 Temp 98.4 ???F (36.9 ???C) (Oral) Resp 17 Ht 5' 1 (1.549 m) Wt 176 lb 6.4 oz (80 kg) SpO2 98% BMI 33.33 kg/m??? General appearance: Alert. Lungs: Non labored breathing on RA. Heart: RRR. Abdomen: Soft, non-distended, perc merlyn tube in place, appropriately tender in RUQ. Extremities: Sensorimotor intact. A/P: 66 yo female s/p percutaneous cholecystostomy tube placement with IR appropriately recovering from surgery. No concern for postoperative complications at this time. Pt to continue regular postoperative care. Chu Da Silva PA-C Acute Care Surgery [facility] [phone] ACS Consults [id number] ACS Floor Patients Normal [employer] Worker Authentication Interface Message Text Attestation signed by Yobani Aviles MD at 05/19/2022 3:40 AM This is a late entry. Patient was seen and assessed on afternoon rounds 05-17-2022 Teaching Physician Note: I saw and evaluated the patient. I personally obtained the hbandari and critical portions of the history and physical exam. I reviewed Dr. Pena's documentation and discussed the patient with Dr. Pena. I agree with Jean's medical decision making as documented in his note. Elevated Troponin and possible Atypical Tako-Tsubo in face of acute cholecystitis. Clinically improved following following percutaneous drain placement. Yobani Aviles MD Cardiology Attending == Consult Service Progress Note General Cardiology Consult Service S: patient seen today reports epigastric discomfort, though improving in nature after the cholecystostomy drain placement today. Denies any chest pain, sweating, pre-syncope or syncope. Allergies Allergen Reactions Adhesives [Bandage Tape] Itching and Redness Cymbalta [Duloxetine Hcl] Agitation Lyrica [Pregabalin] Swelling Current Facility-Administered Medications Medication Dose Route Frequency Last Rate Last Admin calcium chloride 10 % injection 500 mg Intravenous Push One Time Dose ondansetron (ZOFRAN) 4 MG/2ML injection 4 mg Intravenous Push Q4H PRN 4 mg at 05/17/22 2136 Piperacillin-Tazobactam in D5W (ZOSYN) 4-0.5 GM/100ML ivpb 4,500 mg 100 mL 4.5 g Intravenous Q8H Antibiotic 25 mL/hr at 05/18/22 0613 4,500 mg at 05/18/22 0613 acetaminophen (TYLENOL) tablet 650 mg Oral Every 4 hours 650 mg at 05/18/22 0608 metoprolol (LOPRESSOR) tablet 25 mg Oral Every 12 hours 25 mg at 05/18/22 0810 rOPINIRole (REQUIP) tablet 2 mg Oral At Bedtime 2 mg at 05/17/22 2106 gabapentin (NEURONTIN) capsule 100 mg Oral 3x Daily 100 mg at 05/18/22 0608 levothyroxine (SYNTHROID) tablet 50 mcg Oral Daily 50 mcg at 05/18/22 0810 aspirin 81 MG chewable tablet 81 mg Oral Daily 81 mg at 05/18/22 0810 atorvastatin (LIPITOR) tablet 40 mg Oral Daily 40 mg at 05/18/22 0810 esomeprazole (NEXIUM) capsule 40 mg Oral Daily 30 min before breakfast 40 mg at 05/18/22 0810 trimethobenzamide (TIGAN) 100 MG/ML injection 200 mg Intramuscular Q6H PRN 200 mg at 05/16/22 1833 oxyCODONE immediate release tablet 5 mg Oral Q4H PRN 5 mg at 05/18/22 0319 HYDROmorphone (DILAUDID) 1 mg/mL injection 0.5 mg Intravenous Push Q2H PRN 0.5 mg at 05/17/22 1828 lactated ringers iv infusion Intravenous Continuous 100 mL/hr at 05/18/22 0700 Rate Verify at 05/18/22 0700 docusate sodium (COLACE) capsule 100 mg Oral 2x Daily 100 mg at 05/18/22 0811 senna (SENOKOT) tablet 8.6 mg Oral At Bedtime 8.6 mg at 05/17/22 2106 Vital sign ranges over the past 24 hours (retrieved 05/18/2022 at 8:15 AM): Tmax (24 hours): 99.4 ???F (37.4 ???C) Pulse Av Min: 65 Max: 88 Systolic (24hrs), Av , Min:73 , Max:130 Diastolic (24hrs), Av, Min:44, Max:99 MAP (mmHg) Av.2 mmHg Min: 55 mmHg Max: 107 mmHg Resp Av.7 Min: 8 Max: 20 SpO2 Av.2 % Min: 96 % Max: 100 % Change in Weight: Current value is 176.4 lb (80.014 kg) on 05/16/2022 at 0937 -3.6 lb (-1.633 kg) (-2.00 %) from 180.0 lb (81.647 kg) on 05/16/2022 at 0754 (previous value) -3.6 lb (-1.633 kg) (-2.00 %) from 180.0 lb (81.647 kg) on 05/16/2022 at 0754 (first value for this admission) Intake/Output Summary (Last 24 hours) at 05/18/2022 0815 Last data filed at 05/18/2022 0700 Gross per 24 hour Intake 3023.33 ml Output 2485 ml Net 538.33 ml Physical Exam Constitutional: Appearance: Normal appearance. She is ill-appearing. HENT: Head: Normocephalic and atraumatic. Right Ear: External ear normal. Left Ear: External ear normal. Nose: Nose normal. Mouth/Throat: Mouth: Mucous membranes are dry. Pharynx: Oropharynx is clear. Eyes: Extraocular Movements: Extraocular movements intact. Pupils: Pupils are equal, round, and reactive to light. Cardiovascular: Rate and Rhythm: Normal rate. Pulses: Normal pulses. Heart sounds: Normal heart sounds. Pulmonary: Effort: Pulmonary effort is normal. Breath sounds: Normal breath sounds. Abdominal: General: Bowel sounds are normal. There is distension. Tenderness: There is abdominal tenderness. Musculoskeletal: General: Normal range of motion. Cervical back: Normal range of motion. Skin: General: Skin is warm and dry. Neurological: General: No focal deficit present. Mental Status: She is alert and oriented to person, place, and time. Psychiatric: Mood and Affect: Mood normal. Behavior: Behavior normal. Basic Metabolic Panel Na K Cl CO2 Gap Glu BUN Cr Ca 05/18/22227 136 3.9 101 27 12 77 12 0.78 7.7 05/17/22 0411 131 4.1 97 27 11 96 14 0.97 8.1 05/16/22 0222 136 4. (more content not included)... Normal [employer] Worker Authentication Interface Message Text [facility] DIVISION OF ACUTE CARE SURGERY -- GENERAL INFORMATION - EMERGENCY GENERAL SURGERY NOTE Patient Name: Gerry Victoria Admission Date: 05/16/2022 Patient seen and examined on 05/17/2022 INTERVAL HISTORY/EVENTS Background Narrative: Gerry Victoria is a 66 year old female with PMH of hypertension, RLS, GERD, and h/o paroxysmal SVT who presented to [facility] with epigastric pain with nausea and vomiting. Patient describes onset of pain on prior day that has increased since then. Shortly after onset of pain, patient experienced nausea and persistent vomiting, now unable to tolerate PO intake. Denies fevers, chills. She presented to [facility] where EKG demonstrated 'hyperacute T waves' in multiple leads without evidence of STEMI. Troponin originally 139, then 381 on repeat. CTA was performed and did not reveal dissection or PE. CT did demonstrate acute inflammation of the gallbladder with a stone at the neck. A central line was placed for resuscitation purposes and the patient was transferred to [facility] for further evaluation. Prior to transfer, lab work without leukocytosis (10.7) and LFTs/Lipase without abnormality. ACS consulted upon arrival to [facility] for cholecystitis. She was admitted to the SDU for telemetry under EGS. Hospital Course/Procedures: 05/16/2022: Transferred from [facility] ED with cholecystitis, up-trending troponin, and unclear EKG findings. Events in last 24 hours: NAEO Hypotensive, non tachy, afebrile Uptrending leukocytosis 12 (11), downtrending troponins 319 (706) No BM recorded since admission. -------- PHYSICAL EXAM -------- Vitals: Vital sign ranges over the past 24 hours (retrieved 05/17/2022 at 8:53 AM): Tmax (24 hours): 102.7 ???F (39.3 ???C) Pulse Av.1 Min: 77 Max: 113 Systolic (24hrs), Av , Min:79 , Max:136 Diastolic (24hrs), Av, Min:51, Max:88 MAP (mmHg) Av.3 mmHg Min: 61 mmHg Max: 101 mmHg Resp Av.9 Min: 13 Max: 29 SpO2 Av.6 % Min: 90 % Max: 98 % 24 Hour Input/Output UOP: 2.9L out plus x1 occurrence of incontinence BM x0 since admission Intake/Output Summary (Last 24 hours) at 05/17/2022 0853 Last data filed at 05/17/2022 0842 Gross per 24 hour Intake 2530 ml Output 2949 ml Net -419 ml Physical Exam: -General - Seen resting in bed in ED in NAD -Neurologic - No focal deficits, clear speech -Cardiovascular - Non-tachy, hypotensive ~90s SBP -Respiratory - breathing comfortably on 2L, saturating at least 95%; since weaned to room air per chart review -Abdomen - Soft, significantly tender to RUQ and epigastric region, non-distended, +Newton, not peritonitic -Psychiatric - normal affect -Extremities - ESCOBEOD equally, evidence of chronic venous stasis to bilateral LE LABORATORY RESULTS (LAST 24 HOURS) CBC/PT/INR WBC RBC Hgb Hct MCV RDW Plt PT aPTT INR 05/17/22 0411 34 05/17/22 0411 1.61 05/17/22 0411 12.3 4.37 12.1 36.4 83 15.8 232 Basic Metabolic Panel Na K Cl CO2 Gap Glu BUN Cr Ca Mg PO4 05/17/22 0411 3.9 05/17/22 0411 1.9 05/17/22 0411 131 4.1 97 27 11 96 14 0.97 8.1 Arterial Blood Gases None IMAGING RESULTS - Last 24 hours (PERSONALLY REVIEWED) EXAMINATION: US LIVER/GALL BLADDER/PANCREAS 05/16/2022 05:33 AM TECHNIQUE: Ultrasound real time scan with image documentation of the right upper quadrant including the liver, gallbladder, and pancreas was performed. FINDINGS: Liver Craniocaudal length: 15.6 cm. Echogenicity: Normal Surface nodularity: Not visualized Mass (size and location): None. Bile ducts Intrahepatic ducts: No biliary dilatation. Common bile duct: Normal caliber. Diameter 2 mm. Gallbladder Size and morphology: The gallbladder is hydropic measuring greater than 5 cm in transverse dimension. The gallbladder wall is not thickened. Cholelithiasis: Multiple echogenic foci with posterior acoustic shadowing are seen within the neck of the gallbladder consistent with gallstones with the largest measuring nearly 2 cm in size. Gallbladder sludge is also present. Pericholecystic fluid: None. Sonographic Newton sign: Present. Pancreas The pancreas is mostly obscured by overlying bowel gas and not well seen. Other findings None. IMPRESSION: 1. Cholelithiasis in the setting of a positive sonographic Newton's sign along with the mild pericholecystic inflammatory changes noted on prior CT imaging in the region of the gallbladder neck are suspicious for acute calculus cholecystitis. 2. No significant biliary dilatation. Transthoracic Echocardiographic Report Exam Date: 05/16/2022 11:11 AM Summary Low normal LV systolic function. The left ventricular ejection fraction (LVEF) (more content not included)... Normal The [employer] ABO RH TYPEon 05-16-2022 ABO and Rh group Nom (Bld) Blood group A Rh(D) positive Normal [facility] Comment on above: Performed By: #### M G, CH8 #### [facility] [address] [place] [address], BASIC METABOLIC PANELon 04-28 Anion gap [Moles/Vol] 14 mmol/L Normal 10-20 The [facility] Comment on above: Performed By: #### C H8, HEPATIC #### [facility] [address] [place] [address], Calcium [Mass/Vol] 8.6 mg/dL Normal 8.4-10.4 The [facility] Comment on above: Performed By: #### C H8, HEPATIC #### [facility] [address] [place] [address], Chloride [Moles/Vol] 100 mmol/L Normal 97-111 [facility] Comment on above: Performed By: #### C H8, HEPATIC #### [facility] [address] [place] [address], CO2 [Moles/Vol] 27 mmol/L Normal 21-30 [facility] Comment on above: Performed By: #### C H8, HEPATIC #### [facility] [address] [place] [address], Creatinine [Mass/Vol] 0.76 mg/dL Normal 0.50-1.10 [facility] Comment on above: Performed By: #### C H8, HEPATIC #### [facility] [address] [place], [place], ESTIMATED GFR (CKD-EPI) 85 mL/min/1.73sqm Normal >=60 [facility] Comment on above: Result Comment: 2020 CKD EPI Equation using Creatinine without Race Comment: Estimated glomerular filtration rate (eGFR) is calculated without a race coefficient. Values should be interpreted in the context of the patient's full clinical presentation. Reference: 1. Leonardo C, Makayla M, Ilya FLYNN, et al.. A Unifying Approach for GFR Estimation: Recommendations of the NKF-ASN Task Force on Reassessing the Inclusion of Race in Diagnosing Kidney Disease. [place] Journal of Kidney Diseases 2021;79(2):268-88.e1. 2. N Engl J Med 2020 Vol. 385 Issue 19 Pages 4848-9688 Performed By: #### C H8, HEPATIC #### [facility] [address] [place], [place], Glucose [Mass/Vol] 119 mg/dL High 80-116 The [facility] Comment on above: Performed By: #### C H8, HEPATIC #### [facility] [address] [place], [place], Potassium [Moles/Vol] 4.9 mmol/L Normal 3.3-5.3 [facility] Comment on above: Performed By: #### C H8, HEPATIC #### [facility] [address] [place], [place], Sodium [Moles/Vol] 136 mmol/L Normal 135-148 The [facility] Comment on above: Performed By: #### C H8, HEPATIC #### [facility] [address] [place], [place], Urea nitrogen [Mass/Vol] 9 mg/dL Normal 8-22 The [facility] Comment on above: Performed By: #### C H8, HEPATIC #### [facility] [address] [place], [place], Blood Cultureon 05-16-2022 Bacteria identified Cx Nom (Bld) NO GROWTH 5 DAYS PERFORMED BY: [facility] [address] [place] [address] PATHOLOGIST [employer]ENT WILDER BOTELLO M.D. Normal [facility] Comment on above: Performed By: #### H EPATIC, LIPASE, CBC, BMP #### [facility] [address] [place] [address] [facility] CBC WITH DIFFERENTIALon 04-28 0-2022 Basophils (Bld) [#/Vol] 0.06 10*3/uL Normal 0.00-0.20 [facility] Comment on above: Performed By: #### 8 2948 #### [facility] [address] [place], [address] Basophils/100 WBC (Bld) 0.5 % Normal <=1.9 T he [facility] Comment on above: Performed By: #### 8 2948 #### NURSING GLUCOSE PROGRAM [address] [place], [address] Eosinophils (Bld) [#/Vol] 0.02 10*3/uL Normal 0.00-0.7 0 [facility] Comment on above: Performed By: #### 8 4498 #### NURSING GLUCOSE PROGRAM [address] [place], [address] Eosinophils/100 WBC (Bld) 0.1 % Normal 0.1-4.0 [facility] Comment on above: Performed By: #### 8 9618 #### NURSING GLUCOSE PROGRAM [address] [place], [address] Erythrocyte distribution wid th (RBC) [Ratio] 15.3 % High 11.5-14.5 [facility] Comment on above: Performed By: #### 8 5698 #### NURSING GLUCOSE PROGRAM [address] [place], [address] Hematocrit (Bld) [Volume fraction] 39.2 % Normal 3 6.0-46.0 [facility] Comment on above: Performed By: #### 8 9116 #### NURSING GLUCOSE PROGRAM [address] [place], [address] Hemoglobin (Bld) [Mass/Vol] 13.0 g/dL Normal 12.0-15. 0 [facility] Comment on above: Performed By: #### 8 9022 #### NURSING GLUCOSE PROGRAM [address] [place], [address] Lymphocytes (Bld) [#/Vol] 1.23 10*3/uL Normal 1.00-4.8 0 [facility] Comment on above: Performed By: #### 8 2948 #### NURSING GLUCOSE PROGRAM [address] [place], [address] Lymphocytes/100 WBC (Bld) 10.9 % Low 24.0-44.0 [facility] Comment on above: Performed By: #### 8 2948 #### NURSING GLUCOSE PROGRAM [address] [place] [address], [address] MCH (RBC) [Entitic mass] 27.4 pg Normal 26.0-34.0 [facility] Comment on above: Performed By: #### 8 2948 #### NURSING GLUCOSE PROGRAM [address] [place] [address], [address] MCHC (RBC) [Mass/Vol] 33.1 g/dL Normal 32.0-35.9 [facility] Comment on above: Performed By: #### 8 2948 #### NURSING GLUCOSE PROGRAM [address] [place] [address], [address] MCV (RBC) [Entitic vol] 83 fL Normal 80-100 T [facility] Comment on above: Performed By: #### 8 2948 #### NURSING GLUCOSE PROGRAM [address] [place] [address], [address] MONOCYTE DISTRIBUTION WIDTH 17 Normal <=20 The [facility] Comment on above: Performed By: #### 8 2948 #### NURSING GLUCOSE PROGRAM [address] [place] [address], [address] Monocytes (Bld) [#/Vol] 0.69 10*3/uL Normal 0.20-1.00 The [facility] Comment on above: Performed By: #### 8 2948 #### NURSING GLUCOSE PROGRAM [address] [place], [address] Monocytes/100 WBC (Bld) 6.1 % Normal 2.0-11.0 T [facility] Comment on above: Performed By: #### 8 2948 #### NURSING GLUCOSE PROGRAM [address] [place] [address], [address] Neutrophils (Bld) [#/Vol] 9.30 10*3/uL High 1.50-8.0 0 [facility] Comment on above: Performed By: #### 8 2948 #### NURSING GLUCOSE PROGRAM [address] [place], [address] Neutrophils/100 WBC (Bld) 82.4 % High 31.0-76.0 [facility] Comment on above: Performed By: #### 8 2948 #### NURSING GLUCOSE PROGRAM [address] [place], [address] Platelet mean volume (Bld) [ Entitic vol] 7.5 fL Normal 7.5-11.2 [facility] Comment on above: Performed By: #### 8 2948 #### NURSING GLUCOSE PROGRAM [address] [place], [address] Platelets (Bld) [#/Vol] 290 10*3/uL Normal 150-400 [facility] Comment on above: Performed By: #### 8 2948 #### NURSING GLUCOSE PROGRAM [address] [place], [address] RBC (Bld) [#/Vol] 4.74 10*6/uL Normal 4.00-5.20 The [facility] Comment on above: Performed By: #### 8 2948 #### NURSING GLUCOSE PROGRAM [address] [place], [address] WBC (Bld) [#/Vol] 11.3 10*3/uL Normal 4.5-11.5 [facility] Comment on above: Performed By: #### 8 2948 #### NURSING GLUCOSE PROGRAM [address] [place], [address] CT angio chest PE protocolon 05-16-2022 CT angio chest PE protocol [facility] [place] [address] CT Scan Report Signed Patient: Gerry Victoria MR#: [id number] 10 : 1955 Acct:[id number] Age/Sex: 66 / F ADM Date: 05/15/22 Loc: ER Room: Type: [facility] ER Attending Dr: Copies to: Keith Griffith PA-C Ordering Provider: Keith Griffith PA-C Date of Service: 05/15/22 CT/CT angio chest PE protocol: hypoxic. elevated trop CT angio chest PE protocol 05/15/2022 8:42 PM SIGN AND SYMPTOMS: Chest and abdominal pain with hypoxia and elevated troponin CONTRAST: 67 mL of intravenous Isovue-370 TECHNIQUE: Multidetector CT axial slices of the chest were obtained with IV contrast. Multiplanar reformats were performed and viewed on a separate workstation and reviewed to further define anatomy and possible pathology. CT was performed with one or more of the following dose reduction techniques: Automated exposure control, adjustment of the mA and/or kV according to patient size, or use of iterative reconstruction technique. COMPARISON: None. FINDINGS: Lower neck: Thyroid gland within normal limits, no supraclavicle adenopathy. Vessels: Atherosclerotic changes are noted in the thoracic aorta and origins of the great vessels. There is no evidence of pulmonary embolism. Mediastinum and Jerica: Within normal limits. Heart: Normal size. No pericardial effusion. Airways: Within normal limits Lungs: There are areas of groundglass attenuation with interstitial prominence and intralobular septal thickening in a basal to apical gradient suspicious for an atypical/viral pneumonia or volume overload with developing pulmonary edema. Pleura: Small bilateral pleural effusions are present. Chest Wall: Within normal limits. Upper Abdomen: Within normal limits. Bones: Degenerative changes are noted in the thoracolumbar spine. CT/CT angio chest PE protocol IMPRESSION: There are areas of groundglass attenuation with interstitial prominence and intralobular septal thickening in a basal to apical gradient suspicious for an atypical/viral pneumonia or volume overload with developing pulmonary edema. Small bilateral pleural effusions are present. There is no evidence of pulmonary embolism. Impression dictated by: Aditya Hodge M.D.05/16/2022 8:19 AM Dictation Location: [place] [address] Transcribed By: [facility] 05/16/22818 Dictated By: Aditya Hodge II, MD 05/16/22810 Signed By: 05/16/22818 [facility] Care Plan Noteon 05-16-2022 [employer] Worker Authentication Interface Message Text Problem: Routine Care: Goal: Patient care will be managed and maintained throughout hospital stay per unit specific routine care procedure 05/16/2022 1042 by Marycarmen Anna RN Outcome: Progressing 05/16/2022 1041 by Marycarmen Anna RN Outcome: Progressing Problem: Acute Pain: Goal: Ability to identify pain intensity on a pain scale and rate it consistently will be achieved and maintained 05/16/2022 1042 by Marycarmen Anna RN Outcome: Progressing Note: Pain not controlled 05/16/2022 1041 by Marycarmen Anna RN Outcome: Progressing Goal: Acceptable level of pain which allows the patient to achieve functional outcome goals 05/16/2022 1042 by Marycarmen Anna RN Outcome: Progressing 05/16/2022 1041 by Marycarmen Anna RN Outcome: Progressing Problem: Altered Elimination: Goal: Establishment of individualized urinary routine 05/16/2022 1042 by Marycarmen Anna RN Outcome: Progressing Note: Voiding with external cath 05/16/2022 1041 by Marycarmen Anna RN Outcome: Progressing Problem: Risk for Infection: Goal: Risk for infection will be reduced 05/16/2022 1042 by Marycarmen Anna RN Outcome: Progressing Note: Antibiotics as ordered 05/16/2022 1041 by Marycarmen Anna RN Outcome: Progressing Problem: Impaired Skin Integrity: Goal: Skin integrity will improve and/or be maintained 05/16/2022 1042 by Marycarmen Anna RN Outcome: Progressing 05/16/2022 1041 by Marycarmen Anna RN Outcome: Progressing Problem: VTE Prophylaxis: Goal: Will be free of DVT 05/16/2022 1042 by Marycarmen Anna RN Outcome: Progressing 05/16/2022 1041 by Marycarmen Anna RN Outcome: Progressing Problem: Safety: Goal: Patient will remain free of falls during hospital stay 05/16/2022 1042 by Marycarmen Anna RN Outcome: Progressing 05/16/2022 1041 by Marycarmen Anna RN Outcome: Progressing Goal: Free from injury during hospitalization 05/16/2022 1042 by Marycarmen Anna RN Outcome: Progressing 05/16/2022 1041 by Zarlinga, Marycarmen, RN Outcome: Progressing Problem: Discharge Planning: Goal: Discharge needs of the adult patient will be met 05/16/2022 1042 by Marycarmen Anna RN Outcome: Progressing 05/16/2022 1041 by Marycarmen Anna, RN Outcome: Progressing Normal The [facility] [employer] Worker Authentication Interface Message Text This is a 66 YO f with PMH of fibromyalgia, HTN, RLS, who presented with epigastric pain associated with nausea and vomiting around yesterday afternoon. She was seen at [facility] and EKG done there showed NSR but concerning for hyper acute T waves. Troponin was 139 up to 381 and when checked here was 706. The patient was seen and examined. She denied any chest pain. Her pain is mainly is epigastric. No SOB, or diaphoresis reported. No previous cardiac Hx and not on any cardiac meds except for Atenolol for HTN. On exam. BP 144/74 Pulse 87 Temp 99.7 ???F (37.6 ???C) (Oral) Resp 15 SpO2 97% She is alert and awake uncomfortable due to abdominal pain Epigastric tenderness with voluntary guarding Heart sounds were regular S1, S2, no murmurs Lungs are clear to auscultation No edema on calf tenderness. EKG reviewed NSR HR is 85 Impression: Type 2 myocardiac injury in the setting of acute cholecystitis, no previous cardiac Hx reported. No chest pain. EKG no significant ST changes. Troponin is trending up. Continue supportive care. Start ASA repeat troponin at 4:30 am, If levels are still trending up start IV heparin. Obtain 2D echocardiogram Consult cardiology Addendum Repeat troponin at 4:00 am is 714 no significant change from 706. No need to start IV heparin. Check echo and admit to surgery step down. Normal [facility] Consultson 05-16-2022 [employer] Worker Authentication Interface Message Text Dietitian vs [employer]: [employer] Nutrition Screening Reason for visit: Positive nutrition screen -Difficulty chewing=swallowing Assessment Admitting Diagnosis: NSTEMI, cholecystitis. choledocolithiasis High risk nutrition diagnosis: No - no points Past Medical History: Past Medical History: Diagnosis Date Restless leg Food Allergies: None Labs: LFT's (last 3 years, up to 5 values) T Prot Albumin D Bili T Bili Alk Phos ALT AST 05/16/22 0222 6.4 4.0 0.13 0.6 79 11 20 Albumin: Greater than 3 - no points Skin Integrity: No pressure ulcers at this time - no points Fluid Accumulation: None Diet Order: NPO % PO Intake: NPO Intake Difficulties: Decreased appetite - 0 points and Nausea and/or vomiting- 1 point 5' 1 BODY MASS INDEX 05/16/2022 05/16/2022 Kg 81.647 kg 80.015 kg Lbs 180 lb 176 lb 6.4 oz BMI 34.03 kg/m2 33.35 kg/m2 BMI Screening value: 21 or greater - 0 points % Weight Loss: None Weight Loss Screening Value: None Comments: NPO currently with nuuxxg-hghybrgw-vcwuol to tolerate po. No food allergies. Weights-see above. Monitor NPO status-diet advance. Number of Points: 1 Nutritional Plan of Care: Less than or equal to 6 points: At this time, patient is at low nutrition risk. DTR to provide routine follow up. Will continue to follow, BRENDA Florez (Nutrition) Pager #[phone]. Normal [facility] [employer] Worker Authentication Interface Message Text New Patient Consult General Cardiology Consult Service C/O: elevated troponin levels HPI: 66 year old female with history of hypertension (on atenolol), fibromylagia, RLS is consulted for elevated HsTNT levels in the setting of hospitalization for acute cholecystitis. She presented to [facility] on 05/15 with epigastric pain, nausea and vomiting, worsening in nature and unable to tolerate oral medications. Per records, EKG at [facility] showed hyperacute T waves without STEMI. HsTroponin trend as 139->381. Imaging showed acute cholecystitis. Patient was then transferred to [facility] for further care. Patient reports no left sided chest pain, however symptomatic with epigastric pain and nausea. Denies any exertional angina at home, no orthopnea, PND or palpitations at home. Denies any prior history of NE/CAD, DM-2, HF or arrhythmias. She was modestly active at baseline, doing her house chores without any limitations. Medications: Gabapentin 100 mg TID Atenolol 50 mg daily Ropinirole 0.25 mg QID Acyclovir 400 mg daily Escitalopram 10 mg daily Amitriptyline 50 mg daily Levothyroxine 50 mcg daily Omeprazole 40 mg daily PMH: HTN, RLS, GERD, Anxiety Allergies: NKDA Family history: Non contributory to CAD Social history: Previous smoking history Prior to Admission medications Not on File Patient Vitals for the past 24 hrs: BP Temp Temp src Pulse Resp SpO2 O2 Device O2 Flow Rate (l/min) 05/16/22 0724 125/67 -- -- (!) 108 16 95 % Nasal cannula 2 05/16/22 0633 -- -- -- 100 20 96 % -- -- 05/16/22 0430 124/70 -- -- 91 -- -- -- -- 05/16/22 0415 106/76 -- -- 98 20 97 % -- -- 05/16/22 0223 -- 99.7 ???F (37.6 ???C) Oral -- -- -- -- -- 05/16/22 0217 -- -- -- 87 15 97 % Nasal cannula 2 05/16/22 0212 144/74 -- -- -- -- -- -- -- Physical Exam Vitals reviewed. Constitutional: General: She is in acute distress. Appearance: She is ill-appearing. HENT: Head: Normocephalic and atraumatic. Right Ear: External ear normal. Left Ear: External ear normal. Nose: Nose normal. Mouth/Throat: Mouth: Mucous membranes are dry. Eyes: Extraocular Movements: Extraocular movements intact. Cardiovascular: Rate and Rhythm: Normal rate and regular rhythm. Pulses: Normal pulses. Heart sounds: Normal heart sounds. Pulmonary: Effort: Pulmonary effort is normal. Breath sounds: Normal breath sounds. Abdominal: Tenderness: There is abdominal tenderness. There is guarding. Musculoskeletal: General: Normal range of motion. Cervical back: Normal range of motion and neck supple. Skin: General: Skin is warm and dry. Neurological: General: No focal deficit present. Mental Status: She is alert and oriented to person, place, and time. Psychiatric: Mood and Affect: Mood normal. Behavior: Behavior normal. CBC (last 3 years, up to 5 values) WBC RBC Hgb Hct MCV RDW Plt 05/16/22221 11.3 4.74 13.0 39.2 83 15.3 290 WBC/Diff Neutro% Segs% Bands% Lymphs% Monos% Eos% Basos% 05/16/22221 82.4 10.9 6.1 0.1 0.5 Basic Metabolic Panel Na K Cl CO2 Gap Glu BUN Cr Ca 05/16/22221 136 4.9 100 27 14 119 9 0.76 8.6 LFT's (last 3 years, up to 5 values) T Prot Albumin D Bili T Bili Alk Phos ALT AST 05/16/22221 6.4 4.0 0.13 0.6 79 11 20 Lipids (last 3 years, up to 5 values) None Arterial Blood Gases None PT/INR PT aPTT INR 05/16/22221 1.10 05/16/22221 55 Cardiac testing: Chest X-ray 05/16 IMPRESSION: Right IJ central venous catheter distal tip overlies the expected position of the superior cavoatrial junction. No radiographic evidence of pneumothorax or other acute process. EKG 05/16 NSR with tall T waves, without SANTIAGO Echocardiogram (TTE) None yet Stress testing None Cardiac Cath none Assessment AND Plan Troponinemia, as Type II NE. It is under the setting of demand supply mismatch - secondary to acute cholecystitis, dehydration and stress, however underlying obstructive CAD cannot be ruled out Atypical takatsubo, LVEF 55% Tall T-waves Pre-operative cardiology clearance, RCRI 1 Acute cholecystitis, with biliary colic Hypertension Plan Aspirin 81 mg daily; lipitor 40 mg daily and metoprolol 25 mg q12h when patient able to tolerate Continue to trend troponin till it downtrends Patient will need further evaluation for CAD once her acute cholecystitis has resolved/adequately treated - likely LHC depending on her recovery For the surgery, patient be will be a high risk candidate for a low-intermediate risk surgery (due to possible CAD) Discussed with the patient and the surgery team Aris Pena MD, MPH PGY 5 Cardiovascular Medicine TEACHING PHYSICIAN'S NOTE OF PERSONAL INVOLVEMENT IN CARE: I saw and evaluated the patient. I personally obtained the bhandari and critical portions of the history and physical exam. I reviewed the resident's docum (more content not included)... Normal [facility] ED Provider Noteson 05-16-19 [employer] Worker Authentication Interface Message Text EMERGENCY DEPARTMENT - VISIT NOTE HISTORY OF PRESENT ILLNESS Chief Complaint Patient presents with Abdominal pain Transfer for surg consult, cholecystitis, NSTEMI, upper abd pain, c/o N/V, pain 8/10 The history is provided by the Patient and EMS. Gerry Victoria is a 66 year old female hx of HTN, HLD, presenting to the ED for abdominal pain. Epigastric now radiating to RUQ onset early afternoon 05/15, felt similar but more severe than IBS discomfort. Nausea and vomiting associated. Denies lightheadedness, diaphoresis, chest pain, dyspnea. Per [facility] transport team: concern for NSTEMI and cholecystitis at OSH. Started on ntg gtt, heparin, and ASA. Troponins uptrended at OSH ED. REVIEW OF SYSTEMS Review of Systems Constitutional: Negative for diaphoresis and fever. Respiratory: Negative for shortness of breath. Cardiovascular: Negative for chest pain. Gastrointestinal: Positive for abdominal pain, nausea and vomiting. Negative for constipation and diarrhea. Genitourinary: Negative for dysuria. Musculoskeletal: Negative for back pain. Neurological: Negative for light-headedness. Hematological: Does not bruise/bleed easily. PAST HISTORY Pertinent Past History: As above PHYSICAL EXAM BP 144/74 Pulse 87 Temp 99.7 ???F (37.6 ???C) (Oral) Resp 15 SpO2 97% Physical Exam Vitals and nursing note reviewed. Constitutional: General: She is in acute distress (mild). Appearance: She is normal weight. She is not toxic-appearing or diaphoretic. HENT: Head: Normocephalic and atraumatic. Eyes: General: No scleral icterus. Neck: Vascular: No JVD. Trachea: No tracheal deviation. Cardiovascular: Rate and Rhythm: Normal rate and regular rhythm. Pulses: Normal pulses. Heart sounds: Normal heart sounds. Pulmonary: Effort: Pulmonary effort is normal. No respiratory distress. Breath sounds: Normal breath sounds. Abdominal: General: There is no distension. Palpations: Abdomen is soft. Tenderness: There is abdominal tenderness in the right upper quadrant and epigastric area. There is guarding. Musculoskeletal: General: No deformity. Normal range of motion. Cervical back: Normal range of motion. Skin: General: Skin is warm and dry. Coloration: Skin is not jaundiced. Neurological: General: No focal deficit present. Mental Status: She is alert and oriented to person, place, and time. Psychiatric: Mood and Affect: Mood normal. Behavior: Behavior normal. MEDICAL DECISION MAKING and ED COURSE History from Independent Historian: EMS reports tx in for NSTEMI and cholecysitis, significant pain in transport fentanyl given Review of External (Non- ED) Notes: Imaging from 05/15/22 reviewed and shows cholecystitis Discussion with External Provider: Roller from surgery service recommends admission for cholecystectomy vs perc-merlyn drain Independent Test Interpretation: Lab studies personally interpreted, see course Nursing triage and assessment notes reviewed and incorporated. Evaluated by EM attending Ericka Torres Interpretation of Results AND Course: ED Course as of 05/16/22 0354 MonMay 16, 2022 0257 COMPLETE BLOOD COUNT W/DIFF (RAPID RESPONSE LABS)(!): WBC 11.3 RBC 4.74 Hemoglobin 13.0 Hematocrit 39.2 MCV 83 MCH 27.4 MCHC 33.1 Platelet 290 RDW-CV% 15.3(!) MPV 7.5 Neutrophils 82.4(!) Neutrophil # 9.30(!) Lymphocytes 10.9(!) Lymph Absolute 1.23 Monocytes 6.1 Monocyte Absolute 0.69 Eosinophil 0.1 Eosinophil Absolute 0.02 Basophils 0.5 Basophil # 0.06 MDW 17 My interpretation: No clinically significant anemia, thrombocytopenia, leukopenia, or leukocytosis [MP] 0318 Partial Thromboplastin Time(!): aPTT 55(!) On heparin gtt from OSH [MP] 0318 Basic Metabolic Panel (BMP)(!): Glucose 119(!) Sodium 136 Potassium 4.9 Carbon Dioxide 27 Chloride 100 BUN 9 Creatinine 0.76 Calcium 8.6 Anion Gap 14 Estimated GFR 85 My interpretation: Good renal function. No significant electrolyte derangements. [MP] 0318 Hepatic Function Panel: Albumin 4.0 Bilirubin, Direct 0.13 Bilirubin, Total 0.6 Alkaline Phosphatase 79 ALT (SGPT) 11 AST (SGOT) 20 Protein, Total 6.4 My interpretation: No laboratory evidence of acute hepatobiliary dysfunction or disease [MP] 0341 HS Troponin I(!!): 706 My interpretation: nearly doubled from prior at OSH [MP] ED Course User Index [MP] Chu Prince MD Medical Decision Making: Patient is a 66-year-old female presenting to the ED as a transfer from outside hospital for abdominal pain. Hemodynamically stable and breathing comforta (more content not included)... 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 Patient describes onset of pain on prior day that has increased since then. Shortly after onset of pain, patient experienced nausea and persistent vomiting, now unable to tolerate PO intake. Denies fevers, chills. She presented to [facility] where EKG demonstrated 'hyperacute T waves' in multiple leads without evidence of STEMI. Troponin originally 139, then 381 on repeat. CTA was performed and did not reveal dissection or PE. CT did demonstrate acute inflammation of the gallbladder with a stone at the neck. A central line was placed for resuscitation purposes and the patient was transferred to [facility] for further evaluation. Prior to transfer, lab work without leukocytosis (10.7) and LFTs/Lipase without abnormality. ACS consulted upon arrival to [facility]. PMH: HTN, RLS, GERD, Hypothyroidism, Anxiety PSH: Hysterectomy w/ BSO Medications: Gabapentin 100 mg TID Atenolol 50 mg daily Ropinirole 0.25 mg QID Acyclovir 400 mg daily Escitalopram 10 mg daily Amitriptyline 50 mg daily Levothyroxine 50 mcg daily Omeprazole 40 mg daily Allergies: NKDA Family History: No family history of bleeding disorders or difficulty with anesthesia Social History: Smoking (vapes), EtOH (occassionally), Drug Use (none): Lives with her cats (Kasi, Whitneyker, Marely). Review of Systems (Bold is Positive + ) Const: Fevers - Chills - WeightLoss - Sweating - Fatigue - MedChanges HEENT: Headaches - VisionChanges Cardiac: ChestPain - Palpitations Pulm: SOB - Cough (Productive) - Orthopnea - PND GI: Nausea - Vomiting - AbdPain - Diarrhea - Constipation - StoolChanges : Dysuria - Frequency - ColorChanges MSK: Pain - Swelling - Weakness Skin: Rash - Itching - Lumps/Bumps - Wounds Neuro: Numbness - Tingling - Dizziness - Falls Heme: Bleeding Physical Exam BP 144/74 Pulse 87 Temp 99.7 ???F (37.6 ???C) (Oral) Resp 15 SpO2 97% General: Intermittent distress, awake Cardiac: Non-tachycardic Pulmonary: Non-labored breathing. Symmetric chest rise. 2L NC Abdomen: Soft, Severe TTP at epigastric region and along right subcostal margin, non-distended. Well healed transverse infraumbilical incision. Extremities: Moving all extremities spontaneously Skin: Warm, moist Neuro: AOx3 Labs: 11.3 13.0 / 290 / 39.2 CBC: 05/16/2022: 2:22 AM 136 100 9 / 119 4.9 27 0.76 BMP: 05/16/2022: 2:22 AM T Prot Albumin D Bili T Bili Alk Phos ALT AST 05/16/22 0222 6.4 4.0 0.13 0.6 79 11 20 Lactic Acid: 1.8 Studies: CT A/P w/ IV Contrast istended gallbladder without evidence of pericholecystitis fluid or obvious obstructive calculi. Assessment/Recommendations Gerry Victoria is a 66 year old female with PMH of hypertension, RLS, GERD who presents as transfer from [facility] with concern for acute cholecystitis alongside concurrent NSTEMI. Troponin originally 139, then 381 on repeat prior to transfer. Repeat Troponin at [facility] - 706. Cardiology consulted for evaluation who recommend short interval trending of troponin. EKG upon arrival with NSR. Review of CT A/P w/ IV Contrast demonstrates distended gallbladder without evidence of pericholecystitis fluid or obvious obstructive calculi. Will obtain ultrasound to evaluate further. Otherwise LFTs, Bilirubin, Lipase, and WBC without abnormality. - Disposition pending cardiology recommendations and findings on ultrasound liver/gb. - Additional care plan to follow Discussed and seen with Dr. Terri Aguilera MD Surgery ADDENDUM: Ultrasound Demonstrates impacted gallstone within the neck of the gallbladder. - Will admit to Surgical Step Down - Trend Troponin (most recently 714 @ 0519) Check echo - Follow up additional cardiology recommendations Teaching Physician Note: I saw and evaluated the patient. I personally obtained the bhandari and critical portions of the history and physical exam. I reviewed the resident's documentation and discussed the patient with the resident. I agree with the resident's medical decision making as documented in the resident's note. Pt with acute epigastric pain. Concern at referring hospital for hyperacute T waves and elevated/uptrending troponins. Started on nitroglycerin and heparin prior to transfer. On arrival tenderness persists in epigastric/RUQ. Medications help. Cardiology consulted. Troponin uptrending, however not change in EKG Most likely NSTEMI secondary to underlying disease process in abdomen but will need ongoing troponin trend and Echo to fully evaluate CT scan shows distended gallbladder but no wall thickening Requested RUQ us which does show impacted stones. No wall thickening The US imaging of impa (more content not included)... Normal [facility] HEPATIC FUNCTION PANELon Albumin [Mass/Vol] 4.0 g/dL Normal 3.4-5.1 [facility] Comment on above: Performed By: #### C H8, HEPATIC #### [facility] [address] [place], [place], ALK 79 IU/L Normal 40-200 [facility] Comment on above: Performed By: #### C H8, HEPATIC #### [facility] [address] [place], [place], ALT [Catalytic activity/Vol] 11 U/L Normal 7-40 [facility] Comment on above: Performed By: #### C H8, HEPATIC #### [facility] [address] [place], [place], AST [Catalytic activity/Vol] 20 U/L Normal 7-40 [facility] Comment on above: Performed By: #### C H8, HEPATIC #### [facility] [address] [place], [place], Bilirubin [Mass/Vol] 0.6 mg/dL Normal 0.1-1.5 [facility] Comment on above: Performed By: #### C H8, HEPATIC #### [facility] [address] [place], [place], Bilirubin.direct [Mass/Vol] 0.13 mg/dL Normal 0.10-0.3 0 [facility] Comment on above: Performed By: #### C H8, HEPATIC #### [facility] [address] [place], [place], Protein [Mass/Vol] 6.4 g/dL Normal 5.7-8.1 [facility] Comment on above: Performed By: #### C H8, HEPATIC #### [facility] [address] [place], [place], HIGH SENSITIVITY TROPONIN Io n 05-16-2022 HS TROPONIN I 319 ng/L Critically high <=15 [facility] Comment on above: Order Comment: High Sensitivity Cardiac Troponin I (hsTnI) assay has replaced the conventional troponin assay at [facility]. All results are reported in whole numbers representing ng/L. Repeat test times for ruling out acute coronary syndrome (ACS) are every 2 hours instead of every 6-8 hours. [id number] conventional troponin (I-stat) will remain available in the [facility] ??? results obtained by different labs or methods are not comparable. Elevated troponin can result from acute myocardial infarction (coronary etiology) or myocardial injury (non-coronary etiology) ??? always consider both. For ruling out acute coronary syndrome (ACS), lab values are always used in conjunction with clinical risk assessment (e.g., HEART score). Interpreting initial value in ruling out ACS Less than 5 ng/L ??? below lower limit of quantification ??? essentially rules out ACS if chest pain began more than 3 hours prior to test and assessed risk is low 5 - 49 ng/L ??? indeterminate ??? consider repeat value in 2 hours depending on risk assessment 50 ng/L or greater??? concern for ACS or myocardial injury Interpreting repeated values in ruling out ACS. Always compare to initial value obtained: Increase of less than 5 ng/L ??? essentially rules out ACS if chest pain began more than 3 hours prior to initial test and assessed risk is low Increase of 5 - 19 ng/L ??? indeterminate ??? consider another repeat value in 2 hours depending on risk assessment Increase of 20 ng/L or greater ??? Concern for ACS or myocardial injury Any absolute value of 50 ng/L or greater ??? concern for ACS or myocardial injury Intermediate hsTnI values DO NOT mandate admission to a cardiology or telemetry unit. They need to be interpreted within the clinical context using provider judgement. When using hsTnI to calculate the HEART score, use the 99 % Upper Reference Limit of 15 ng/L as the normal limit (i.e. <=15 ng/L = 0 points, 16-45 ng/L = 1 points, >45 ng/L = 2 points). Performed By: #### H STRP #### [facility] [address] [place] [address], [phone] HS TROPONIN I 475 ng/L Critically high <=15 [facility] Comment on above: Order Comment: High Sensitivity Cardiac Troponin I (hsTnI) assay has replaced the conventional troponin assay at [facility].All results are reported in whole numbers representing ng/L.Repeat test times for ruling out acute coronary syndrome (ACS) are every 2 hours instead of every 6-8 hours.[id number] conventional troponin (I-stat) will remain available in the [facility] ??? results obtained by different labs or methods are not comparable.Elevated troponin can result from acute myocardial infarction (coronary etiology) or myocardial injury (non-coronary etiology) ??? always consider both.For ruling out acute coronary syndrome (ACS), lab values are always used in conjunction with clinical risk assessment (e.g., HEART score).Interpreting initial value in ruling out ACSLess than 5 ng/L ??? below lower limit of quantification ??? essentially rules out ACS if chest pain began more than 3 hours prior to test and assessed risk is low5 - 49 ng/L ??? indeterminate ??? consider repeat value in 2 hours depending on risk [id number] ng/L or greater??? concern for ACS or myocardial injuryInterpreting repeated values in ruling out ACS.Always compare to initial value obtained:Increase of less than 5 ng/L ??? essentially rules out ACS if chest pain began more than 3 hours prior to initial test and assessed risk is lowIncrease of 5 - 19 ng/L ??? indeterminate ??? consider another repeat value in 2 hours depending on risk assessmentIncrease of 20 ng/L or greater ??? Concern for ACS or myocardial injuryAny absolute value of 50 ng/L or greater ??? concern for ACS or myocardial injuryIntermediate hsTnI values DO NOT mandate admission to a cardiology or telemetry unit. They need to be interpreted within the clinical context using provider judgement.When using hsTnI to calculate the HEART score, use the 99 % Upper Reference Limit of 15 ng/L as the normal limit (i.e. <=15 ng/L = 0 points, 16-45 ng/L = 1 points, >45 ng/L = 2 points). Performed By: #### C H8, HEPATIC #### [facility] [address] [place] [address], [phone] HS TROPONIN I 433 ng/L Critically high <=15 [facility] Comment on above: Order Comment: High Sensitivity Cardiac Troponin I (hsTnI) assay has replaced the conventional troponin assay at [facility].All results are reported in whole numbers representing ng/L.Repeat test times for ruling out acute coronary syndrome (ACS) are every 2 hours instead of every 6-8 hours.[id number] conventional troponin (I-stat) will remain available in the [facility] ??? results obtained by different labs or methods are not comparable.Elevated troponin can result from acute myocardial infarction (coronary etiology) or myocardial injury (non-coronary etiology) ??? always consider both.For ruling out acute coronary syndrome (ACS), lab values are always used in conjunction with clinical risk assessment (e.g., HEART score).Interpreting initial value in ruling out ACSLess than 5 ng/L ??? below lower limit of quantification ??? essentially rules out ACS if chest pain began more than 3 hours prior to test and assessed risk is low5 - 49 ng/L ??? indeterminate ??? consider repeat value in 2 hours depending on risk [id number] ng/L or greater??? concern for ACS or myocardial injuryInterpreting repeated values in ruling out ACS.Always compare to initial value obtained:Increase of less than 5 ng/L ??? essentially rules out ACS if chest pain began more than 3 hours prior to initial test and assessed risk is lowIncrease of 5 - 19 ng/L ??? indeterminate ??? consider another repeat value in 2 hours depending on risk assessmentIncrease of 20 ng/L or greater ??? Concern for ACS or myocardial injuryAny absolute value of 50 ng/L or greater ??? concern for ACS or myocardial injuryIntermediate hsTnI values DO NOT mandate admission to a cardiology or telemetry unit. They need to be interpreted within the clinical context using provider judgement.When using hsTnI to calculate the HEART score, use the 99 % Upper Reference Limit of 15 ng/L as the normal limit (i.e. <=15 ng/L = 0 points, 16-45 ng/L = 1 points, >45 ng/L = 2 points). Performed By: #### H STRP ####[facility] [id number] [place], [id number] HS TROPONIN I 714 ng/L Critically high <=15 [facility] Comment on above: Order Comment: High Sensitivity Cardiac Troponin I (hsTnI) assay has replaced the conventional troponin assay at [facility].All results are reported in whole numbers representing ng/L.Repeat test times for ruling out acute coronary syndrome (ACS) are every 2 hours instead of every 6-8 hours.Cqjbu-sm-[id number] conventional troponin (I-stat) will remain available in the [facility] ??? results obtained by different labs or methods are not comparable.Elevated troponin can result from acute myocardial infarction (coronary etiology) or myocardial injury (non-coronary etiology) ??? always consider both.For ruling out acute coronary syndrome (ACS), lab values are always used in conjunction with clinical risk assessment (e.g., HEART score).Interpreting initial value in ruling out ACSLess than 5 ng/L ??? below lower limit of quantification ??? essentially rules out ACS if chest pain began more than 3 hours prior to test and assessed risk is low5 - 49 ng/L ??? indeterminate ??? consider repeat value in 2 hours depending on risk ng/L or greater??? concern for ACS or myocardial injuryInterpreting repeated values in ruling out ACS.Always compare to initial value obtained:Increase of less than 5 ng/L ??? essentially rules out ACS if chest pain began more than 3 hours prior to initial test and assessed risk is lowIncrease of 5 - 19 ng/L ??? indeterminate ??? consider another repeat value in 2 hours depending on risk assessmentIncrease of 20 ng/L or greater ??? Concern for ACS or myocardial injuryAny absolute value of 50 ng/L or greater ??? concern for ACS or myocardial injuryIntermediate hsTnI values DO NOT mandate admission to a cardiology or telemetry unit. They need to be interpreted within the clinical context using provider judgement.When using hsTnI to calculate the HEART score, use the 99 % Upper Reference Limit of 15 ng/L as the normal limit (i.e. <=15 ng/L = 0 points, 16-45 ng/L = 1 points, >45 ng/L = 2 points). Performed By: #### M ADEEL Grullon8 #### [facility] [address] [place] [address], [phone] HS TROPONIN I 706 ng/L Critically high <=15 The [facility] Comment on above: Order Comment: High Sensitivity Cardiac Troponin I (hsTnI) assay has replaced the conventional troponin assay at [facility].All results are reported in whole numbers representing ng/L.Repeat test times for ruling out acute coronary syndrome (ACS) are every 2 hours instead of every 6-8 hours.[id number] conventional troponin (I-stat) will remain available in the [facility] ED ??? results obtained by different labs or methods are not comparable.Elevated troponin can result from acute myocardial infarction (coronary etiology) or myocardial injury (non-coronary etiology) ??? always consider both.For ruling out acute coronary syndrome (ACS), lab values are always used in conjunction with clinical risk assessment (e.g., HEART score).Interpreting initial value in ruling out ACSLess than 5 ng/L ??? below lower limit of quantification ??? essentially rules out ACS if chest pain began more than 3 hours prior to test and assessed risk is low5 - 49 ng/L ??? indeterminate ??? consider repeat value in 2 hours depending on risk [id number] ng/L or greater??? concern for ACS or myocardial injuryInterpreting repeated values in ruling out ACS.Always compare to initial value obtained:Increase of less than 5 ng/L ??? essentially rules out ACS if chest pain began more than 3 hours prior to initial test and assessed risk is lowIncrease of 5 - 19 ng/L ??? indeterminate ??? consider another repeat value in 2 hours depending on risk assessmentIncrease of 20 ng/L or greater ??? Concern for ACS or myocardial injuryAny absolute value of 50 ng/L or greater ??? concern for ACS or myocardial injuryIntermediate hsTnI values DO NOT mandate admission to a cardiology or telemetry unit. They need to be interpreted within the clinical context using provider judgement.When using hsTnI to calculate the HEART score, use the 99 % Upper Reference Limit of 15 ng/L as the normal limit (i.e. <=15 ng/L = 0 points, 16-45 ng/L = 1 points, >45 ng/L = 2 points). Performed By: #### C H8, HEPATIC #### [facility] [address] [place] [address], [phone] LACTATE WITH REPEAT EDon CR LACT 1.8 mmol/L Normal 0.5-2.0 [facility] [employer] [facility] [employer] [facility] Comment on above: Performed By: #### C H8, HEPATIC #### [facility] [address] [place], [place], PARTIAL THROMBOPLASTIN TIMEo n 05-16-2022 aPTT Coag (Bld) [Time] 55 s High 25-37 Th e [facility] Comment on above: Performed By: #### C H8, HEPATIC #### [facility] [address] [place], [place], PROTHROMBIN TIME AND INRon 0 05-16-2022 INR Coag (PPP) [Relative time] 1.10 {INR} Normal 0.90- 1.10 [facility] Comment on above: Performed By: #### C H8, HEPATIC #### [facility] [address] [place], [place], PT Coag (PPP) [Time] 12.4 s Normal 9.7-12.9 [facility] Comment on above: Performed By: #### C H8, HEPATIC #### [facility] [address] [place], [place], Procedureson 05-16-2022 [employer] Work[employer] Authentication Interface Message Text Transthoracic Echocardiographic Report Name: LUCIAPUJA GERRY Interpreting LETITIA ELKINS MD Physician: : 1955 Referring JANNETH SAGE Physician: Age: 66 [place] Foreman: Laina Mora RDCS Exam Date: 05/16/2022 Fellow: 11:11 AM CVT: PCP: Gender: Female Height 154.94 cm Weight 79.8336 kg Encounter #: BSA 1.79 m2 Study SICU BMI 33.26 kg/m2 Location: Technical Fair Quality: Type of Study: TTE procedure: 2D echocardiogram, M-Mode, Doppler , Color Doppler, Contrast study. Indications for Study:NSSTEMI-stable. Tech. Comments Patient identified by name and date of . Doctor's order(s) verified. Patient's preferred language is Nigerien . Verbal consent for left heart echo contrast was obtained after explanation of the risks (1/10,000 significant and 1/3,000 minor allergic reactions) and benefits (needed enhancement of imaging) were explained. Administration of 1 dose(s) of 1.5 ml of Definity diluted to 8.5 ml of saline was administered by Laina Mora RDCS . Supine BP: 123/73 mmHg Patient Status: Routine Contrast Medium: Definity. Left Ventricle Value Normal Value Normal LVIDd: 4.1 cm <5.7 cm Post. Wall 1.1 cm <1.2 cm Thickness: Septum 1.3 cm <1.2 cm LV FS: 12.2 % 30-40% Diastolic: Systolic 3.6 cm <4 cm LV Mass 200.33g Dimension: LV Mass Index: 112 <110 Women<120 g/m2 Men Left Atrium LA Dimension: 3.2 cm <3.92cm Right Cavities Ventricle RV (apical 4): 3.4 cm <4.3 cm Vessels Sinus of 3.4cm Valsalva: Findings/Conclusions Chambers LV Left ventricular systolic function is focally abnormal. The left ventricular ejection fraction (LVEF) is 55% +/- 5%by the biplane summation of discs (Bee's rule) method. Focal LV systolic dysfunction consists of akinesia of the basal and mid roberson. This is consistent with atypical takatsubo. However, this is a diagnosis of exclusion. Left ventricular size is normal. LA The left atrial size is normal. The left atrial volume index is 24 mL/m2 (normal: <35 mL/m2, mild: 35-41 mL/m2, moderate: 42-48 mL/m2, severe: >48 mL/m2). RV Right ventricular function is normal. The tricuspid annular plane systolic excursion (TAPSE, a marker of RV systolic function) is normal at 18 mm (normal >16 mm). Right ventricular size is normal. RA Normal right atrium. Valves AV Normal aortic valve. MV Normal mitral valve. TV Normal tricuspid valve. PV Normal pulmonic valve. Great Vessels Normal sinus of Valsalva. Pericardium/Pleura No evidence of a pericardial effusion. Hemodynamics Estimated RA pressure is 5 mmHg. The pulmonary artery systolic pressure could not be estimated (inadequate tricuspid regurgitation). Summary Low normal LV systolic function. The left ventricular ejection fraction (LVEF) is 55%. Focal LV systolic dysfunction consists of akinesia of the basal and mid roberson. This is consistent with atypical takatsubo. However, this is a diagnosis of exclusion. Normal RV systolic function. No hemodynamically significant valve disease. The pulmonary artery systolic pressure could not be estimated. Noninvasive hemodynamic assessment is consistent with a normal CVP. See above for further details. Authenticated by: Electronically signed and authenticated by LETITIA ELKINS MD(Interpreting physician) on 05/16/2022 12:03 PM Normal [facility] Progress Noteson 05-16-2022 [employer] Worker Authentication Interface Message Text [id number] notified of critical Troponin value of 475. read back critical results. New orders not received. Normal [facility] [employer] Worker Authentication Interface Message Text [facility] DIVISION OF ACUTE CARE SURGERY -- GENERAL INFORMATION - EMERGENCY GENERAL SURGERY NOTE Patient Name: Gerry Victoria Admission Date: 05/16/2022 Patient seen and examined on 05/16/2022 INTERVAL HISTORY/EVENTS Background Narrative: Gerry Victoria is a 66 year old female with PMH of hypertension, RLS, GERD, and h/o paroxysmal SVT who presented to [facility] with epigastric pain with nausea and vomiting. Patient describes onset of pain on prior day that has increased since then. Shortly after onset of pain, patient experienced nausea and persistent vomiting, now unable to tolerate PO intake. Denies fevers, chills. She presented to [facility] where EKG demonstrated 'hyperacute T waves' in multiple leads without evidence of STEMI. Troponin originally 139, then 381 on repeat. CTA was performed and did not reveal dissection or PE. CT did demonstrate acute inflammation of the gallbladder with a stone at the neck. A central line was placed for resuscitation purposes and the patient was transferred to [facility] for further evaluation. Prior to transfer, lab work without leukocytosis (10.7) and LFTs/Lipase without abnormality. ACS consulted upon arrival to [facility] for cholecystitis. She was admitted to the SDU for telemetry under EGS. Hospital Course/Procedures: 05/16/2022: Transferred from [facility] ED with cholecystitis, up-trending troponin, and unclear EKG findings. Events in last 24 hours: Admitted overnight to SDU. ECHO today with EF 55% and findings consistent with atypical takatsubo. Voiding via fu. No BM since admission. Has been NPO for possible surgery. -------- PHYSICAL EXAM -------- Vitals: Vital sign ranges over the past 24 hours (retrieved 05/16/2022 at 1:55 PM): Tmax (24 hours): 100.7 ???F (38.2 ???C) Pulse Av.2 Min: 87 Max: 113 Systolic (24hrs), Av , Min:102 , Max:144 Diastolic (24hrs), Av, Min:67, Max:88 MAP (mmHg) Av.2 mmHg Min: 81 mmHg Max: 101 mmHg Resp Av.8 Min: 15 Max: 29 SpO2 Av.5 % Min: 90 % Max: 98 % 24 Hour Input/Output UOP: 1350cc out plus x1 occurrence of incontinence BM x0 since admission Intake/Output Summary (Last 24 hours) at 05/16/2022 1454 Last data filed at 05/16/2022 1400 Gross per 24 hour Intake 770 ml Output 600 ml Net 170 ml Physical Exam: -General - Seen resting in bed in ED in NAD -Neurologic - No focal deficits, clear speech -Cardiovascular - Tachycardic but normotensive per chart review -Respiratory - breathing comfortably on 2L, saturating at least 95%; since weaned to room air per chart review -Abdomen - Soft, significantly tender to RUQ and epigastric region, non-distended, +Newton, not peritonitic -Psychiatric - normal affect -Extremities - ESCOBEDO equally, evidence of chronic venous stasis to bilateral LE LABORATORY RESULTS (LAST 24 HOURS) CBC/PT/INR WBC RBC Hgb Hct MCV RDW Plt PT aPTT INR 05/16/22 0222 1.10 05/16/22221 55 05/16/22221 11.3 4.74 13.0 39.2 83 15.3 290 Basic Metabolic Panel Na K Cl CO2 Gap Glu BUN Cr Ca Mg PO4 05/16/22221 136 4.9 100 27 14 119 9 0.76 8.6 Arterial Blood Gases None IMAGING RESULTS - Last 24 hours (PERSONALLY REVIEWED) EXAMINATION: US LIVER/GALL BLADDER/PANCREAS 05/16/2022 05:33 AM TECHNIQUE: Ultrasound real time scan with image documentation of the right upper quadrant including the liver, gallbladder, and pancreas was performed. FINDINGS: Liver Craniocaudal length: 15.6 cm. Echogenicity: Normal Surface nodularity: Not visualized Mass (size and location): None. Bile ducts Intrahepatic ducts: No biliary dilatation. Common bile duct: Normal caliber. Diameter 2 mm. Gallbladder Size and morphology: The gallbladder is hydropic measuring greater than 5 cm in transverse dimension. The gallbladder wall is not thickened. Cholelithiasis: Multiple echogenic foci with posterior acoustic shadowing are seen within the neck of the gallbladder consistent with gallstones with the largest measuring nearly 2 cm in size. Gallbladder sludge is also present. Pericholecystic fluid: None. Sonographic Newton sign: Present. Pancreas The pancreas is mostly obscured by overlying bowel gas and not well seen. Other findings None. IMPRESSION: 1. Cholelithiasis in the setting of a positive sonographic Newton's sign along with the mild pericholecystic inflammatory changes noted on prior CT imaging in the region of the gallbladder neck are suspicious for acute calculus cholecystitis. 2. No significant biliary dilatation. Transthoracic Echocardiographic Report Exam Date: 05/16/2022 11:11 AM Summary Low normal LV systolic function. The left ventricular ejection fr (more content not included)... Normal [facility] TYPE AND SCREENon 05-16-2022 ABO and Rh group Nom (Bld) Blood group A Rh(D) positive Normal [facility] Comment on above: Performed By: #### T S #### [facility] [address] [place] [address], [phone] ABO and Rh group Nom (Bld) No Previous Results Normal [facility] Comment on above: Performed By: #### T S #### S [facility] LAB[facility] [address] [place], [place], ABSC INT Negative Normal [facility] Comment on above: Performed By: #### T S #### [facility] [address] [place], [place], US LIVER/GALL BLADDER/PANCRE ASon 05-16-2022 US LIVER/GALL BLADDER/PANCREAS EXAMINATION: US LIVER/GALL BLADDER/PANCREAS 05/16/2022 05:33 AM CLINICAL HISTORY: cholecystitis ASSOCIATED DIAGNOSIS: ORDERING PROVIDER: CHU PRINCE TECHNOLOGISTS NOTE: Very limited exam due to pt body habitus, gas, and pt in extreme pain. COMPARISON: None TECHNIQUE: Ultrasound real time scan with image documentation of the right upper quadrant including the liver, gallbladder, and pancreas was performed. FINDINGS: Liver Craniocaudal length: 15.6 cm. Echogenicity: Normal Surface nodularity: Not visualized Mass (size and location): None. Bile ducts Intrahepatic ducts: No biliary dilatation. Common bile duct: Normal caliber. Diameter 2 mm. Gallbladder Size and morphology: The gallbladder is hydropic measuring greater than 5 cm in transverse dimension.. The gallbladder wall is not thickened. Cholelithiasis: Multiple echogenic foci with posterior acoustic shadowing are seen within the neck of the gallbladder consistent with gallstones with the largest measuring nearly 2 cm in size.. Gallbladder sludge is also present. Pericholecystic fluid: None. Sonographic Newton sign: Present. Pancreas The pancreas is mostly obscured by overlying bowel gas and not well seen. Other findings None. IMPRESSION: 1. Cholelithiasis in the setting of a positive sonographic Newton's sign along with the mild pericholecystic inflammatory changes noted on prior CT imaging in the region of the gallbladder neck are suspicious for acute calculus cholecystitis. 2. No significant biliary dilatation. MACRO: None Normal [facility] XR CHEST 1 VIEW AP OR PAon 0 05-16-2022 XR CHEST 1 VIEW AP OR PA EXAMINATION: XR CHEST 1 VIEW AP OR PA 05/16/2022 10:22 AM CLINICAL HISTORY: Central line assessment ASSOCIATED DIAGNOSIS: Central line assessment ORDERING PROVIDER: PRAVIN AHUJA TECHNOLOGISTS NOTE: COMPARISON: XRAY CHEST IMAGE IMPORT(RHETT) 05/15/2022, 5:27 PM IMPRESSION: Right IJ central venous catheter distal tip overlies the expected position of the superior cavoatrial junction. No radiographic evidence of pneumothorax or other acute process. MACRO: None Normal The [facility] XR chest 1V portableon 05-16 XR chest 1V portable [facility] [address] [place] [address] XRay Report Signed Patient: Gerry Victoria MR#: [id number] 10 : 1955 Acct:[id number] Age/Sex: 66 / F ADM Date: 05/15/22 Loc: ER Room: Type: [facility] ER Attending Dr: Copies to: Keith Griffith PA-C Ordering Provider: Keith Griffith PA-C Date of Service: 05/15/22 XR/XR chest 1V portable: CENTRAL LINE XR chest 1V portable 05/15/2022 11:01 PM SIGNS AND SYMPTOMS: Left-sided chest pain, abdominal pain PROTOCOL: Frontal radiograph of the chest COMPARISON: 05/15/2022 FINDINGS: The trachea is midline. There has been interval placement of a right IJ line with the tip in the distal superior vena cava. No pneumothorax. The heart and mediastinal structures are within normal limits. Similar perihilar vascular prominence and interstitial prominence is noted bilaterally. The bony thorax is intact. XR/XR chest 1V portable IMPRESSION: There has been interval placement of a right IJ line with the tip in the distal superior vena cava. No pneumothorax. Unchanged chest otherwise. Impression dictated by: Aditya Hodge M.D.05/16/2022 9:24 AM Dictation Location: [place] [address] Transcribed By: [facility] 05/16/22923 Dictated By: Aditya Hodge II, MD 05/16/22922 Signed By: 05/16/22923 [facility] Activated partial thrombopla stin time (aPTT) in platelet poor plasma by coagulation aOrdered By: Keith Griffith on 05-15-2022 aPTT Coag (PPP) [Time] 29.6 s 25.1-36.5 [facility] Albumin [Mass/volume] in Ser um or PlasmaOrdered By: Keith Griffith on 05-15-2022 Albumin [Mass/Vol] 4.4 g/dL 3.2-5.5 [facility] B-Type Natriuretic Peptideon 05-15-2022 Natriuretic peptide B (Bld) [Mass/Vol] 365.0 pg/mL High 5-100 [facility] Comment on above: Result Comment: PERF ORMED BY: [facility] [address] [place] [address] PATHOLOGIST [employer]ENT WILDER BOTELLO M.D. Performed By: #### H EPATIC, LIPASE, CBC, BMP #### [facility] [address] Bacterial blood cultureOrder ed By: Keith Griffith on 05-15-2022 Bacteria identified Cx Nom (Bld) NO GROWTH 5 DAYS [facility] Basic Metabolic Panelon 04-27 Anion gap [Moles/Vol] 13.5 mmol/L Normal 6.0-15.0 [facility] Comment on above: Performed By: #### H EPATIC, LIPASE, CBC, BMP #### [facility] [address] [place] [address] [place] Calcium [Mass/Vol] 8.9 mg/dL Normal 8.2-10.2 [facility] Comment on above: Performed By: #### H EPATIC, LIPASE, CBC, BMP #### [facility] [address] [place] [address] [place] Chloride [Moles/Vol] 98 mmol/L Normal 95-114 [facility] Comment on above: Performed By: #### H EPATIC, LIPASE, CBC, BMP #### [facility] [address] [place] [id number] [place] CO2 [Moles/Vol] 25.7 mmol/L Normal 22.0-30.0 [facility] Comment on above: Performed By: #### H EPATIC, LIPASE, CBC, BMP #### [facility] [address] [place] [id number] [place] Creatinine [Mass/Vol] 0.98 mg/dL Normal 0.44-1.03 [facility] Comment on above: Performed By: #### H EPATIC, LIPASE, CBC, BMP #### [facility] [address] Creatinine Clr Calc Pharmacy 51.97 [facility] Comment on above: Performed By: #### H EPATIC, LIPASE, CBC, BMP #### [facility] [address] Estimated GFR ( Unique > 60 [facility] Comment on above: Result Comment: GFR estimated reference range: According to KDOQI guidelines, <60 ml/min/1.73m2 is sufficient to diagnose a patient with chronic kidney disease. Performed By: #### H EPATIC, LIPASE, CBC, BMP #### [facility] [address] Estimated GFR (Non- Am 56 [facility] Comment on above: Performed By: #### H EPATIC, LIPASE, CBC, BMP #### [facility] [address] Glucose [Mass/Vol] 126 mg/dL High 70-100 [facility] Comment on above: Result Comment: [place] om Glucose Reference Range is dependent on time and content of last meal. Glucose of more than 200 mg/dL in a nonstressed, ambulatory subject supports the diagnosis of Diabetes Mellitus. ADA recommended reference range Performed By: #### H EPATIC, LIPASE, CBC, BMP #### [facility] [address] Potassium [Moles/Vol] 3.2 mmol/L Low 3.5-5.1 [facility] Comment on above: Performed By: #### H EPATIC, LIPASE, CBC, BMP #### [facility] [address] Sodium [Moles/Vol] 134 mmol/L Low 136-146 [facility] Comment on above: Performed By: #### H EPATIC, LIPASE, CBC, BMP #### [facility] [address] Urea nitrogen [Mass/Vol] 7 mg/dL Low 9-23 [facility] Comment on above: Performed By: #### H EPATIC, LIPASE, CBC, BMP #### [facility] [address] Basophils Auto (Bld) [#/Vol] Ordered By: Keith Griffiht on 05-15-2022 Basophils (Bld) [#/Vol] 0.1 10*3/uL 0.0-0.2 [facility] Basophils/100 WBC Auto (Bld) Ordered By: Keith Griffith on 05-15-2022 Basophils/100 WBC (Bld) 0.6 % . F [facility] Bilirubin Test strip Ql (U)O rdered By: Keith Griffith on 05-15-2022 Bilirubin Ql (U) Negative Negative [facility] CT abdomen pelvis w conon CT abdomen pelvis w con [facility] [address] [place] [address] CT Scan Report Signed Patient: Gerry Victoria MR#: [id number] 10 : 1955 Acct:[id number] Age/Sex: 66 / F ADM Date: 05/15/22 Loc: ER Room: Type: [facility] ER Attending Dr: Copies to: Keith Griffith PA-C Ordering Provider: Keith Griffith PA-C Date of Service: 05/15/22 CT/CT abdomen pelvis w con: Abdominal Pain CT ABDOMEN AND PELVIS WITH INTRAVENOUS CONTRAST: CLINICAL HISTORY: Abdominal pain, chest pain, nausea and vomiting COMPARISON: None TECHNIQUE: Spiral images were obtained through the abdomen and pelvis following the administration of intravenous contrast. This CT exam was performed using one or more following dose reduction techniques: Automated exposure control, adjustment of the mA and/or kV according to patient size, or use of iterative reconstruction technique. FINDINGS: Lung Bases: [Trace bilateral pleural effusions with bibasilar atelectasis/scarring.] Organs:Gallbladder is distended with mild surrounding inflammatory changes. A questionable stone is seen within the neck of the gallbladder lumen. No CBD dilatation. Liver spleen pancreas and adrenal glands all appear unremarkable. No enhancing renal mass or hydronephrosis. Fusiform aneurysmal dilatation of the infrarenal abdominal aorta measuring 3.3 cm. GI: Stomach is grossly unremarkable. Small bowel appears nondilated. No acute colonic abnormality.[ Pelvis:[Urinary bladder is grossly unremarkable. No adnexal mass. Uterus has been removed.] Peritoneum/Retroperitoneum:Trace amount of free fluid seen within the right pericolic gutter. No free air. No lymphadenopathy.[ Abd wall/Bones:Abdominal wall demonstrates no acute findings. Osseous structures demonstrate degenerative change.[ CT/CT abdomen pelvis w con IMPRESSION: 1. Distended gallbladder with mild surrounding inflammatory changes. A questionable stone is seen within the neck of the gallbladder lumen. Developing acute cholecystitis or cystic duct obstruction cannot be excluded. This can be confirmed by HIDA scan. 2. Fusiform aneurysmal dilatation of the infrarenal abdominal aorta measuring 3.3 cm. Please see follow up recommendations below. 3. Trace ascites. 4. Trace bilateral pleural effusions. For management of fusiform AAA: ? 3.0-3.4 cm AAA, recommend follow-up every 3 years. ? Impression dictated by: Nicholas Ann Jr., Colin05/15/2022 6:59 PM Dictation Location: [place] [address] Transcribed By: [facility] 05/15/221858 Dictated By: Nicholas Ann Jr, DO 05/15/221854 Signed By: 05/15/221858 Normal [facility] Color Auto (U)Ordered By: George Griffith on 05-15-2022 Color (U) Yellow Yellow [facility] Complete Blood Count Auto Di ffon 05-15-2022 Basophils (Bld) [#/Vol] 0.1 10*3/uL Normal 0.0-0.2 [facility] Comment on above: Result Comment: PERF ORMED BY: [place] [address] PATHOLOGIST M[employer]RATION AGENT WILDER BOTELLO M.D. Performed By: #### H EPATIC, LIPASE, CBC, BMP #### [facility] [address] Basophils/100 WBC (Bld) 0.6 % Normal . [facility] Comment on above: Performed By: #### H EPATIC, LIPASE, CBC, BMP #### [address] Eosinophils (Bld) [#/Vol] 0.0 10*3/uL Normal 0.0-0.45 [facility] Comment on above: Performed By: #### H EPATIC, LIPASE, CBC, BMP #### [address] Eosinophils/100 WBC (Bld) 0.3 % Normal . [facility] Comment on above: Performed By: #### H EPATIC, LIPASE, CBC, BMP #### [address] Erythrocyte distribution wid th (RBC) [Ratio] 15.2 % Normal 11.9-15.3 [facility] Comment on above: Performed By: #### H EPATIC, LIPASE, CBC, BMP #### [address] Hematocrit (Bld) [Volume fraction] 42.8 % Normal 34.0-46.4 [facility] Comment on above: Performed By: #### H EPATIC, LIPASE, CBC, BMP #### [address] Hemoglobin (Bld) [Mass/Vol] 14.1 g/dL Normal 11.8-15. 4 [facility] Comment on above: Performed By: #### H EPATIC, LIPASE, CBC, BMP #### [address] Lymphocytes (Bld) [#/Vol] 0.9 10*3/uL Low 1.00-4.8 [facility] Comment on above: Performed By: #### H EPATIC, LIPASE, CBC, BMP #### [address] Lymphocytes/100 WBC (Bld) 8.6 % Normal . [facility] Comment on above: Performed By: #### H EPATIC, LIPASE, CBC, BMP #### [address] MCH (RBC) [Entitic mass] 27.4 pg Normal 24.7-34.3 [facility] Comment on above: Performed By: #### H EPATIC, LIPASE, CBC, BMP #### [address] MCV (RBC) [Entitic vol] 83.0 fL Normal 80-100 [facility] Comment on above: Performed By: #### H EPATIC, LIPASE, CBC, BMP #### [address] Mean Corpuscular HGB Conc 33.0 g/dL Normal 32.0-35.0 [facility] Comment on above: Performed By: #### H EPATIC, LIPASE, CBC, BMP #### [address] Monocytes (Bld) [#/Vol] 0.5 10*3/uL Normal 0.0-0.8 [facility] Comment on above: Performed By: #### H EPATIC, LIPASE, CBC, BMP #### [address] Monocytes/100 WBC (Bld) 15.42 % Normal 0.00-20.00 [facility] Comment on above: Performed By: #### H EPATIC, LIPASE, CBC, BMP #### [address] Monocytes/100 WBC (Bld) 4.2 % Normal . [facility] Comment on above: Performed By: #### H EPATIC, LIPASE, CBC, BMP #### [address] Neutrophils (Bld) [#/Vol] 9.3 10*3/uL High 1.8-7.7 [facility] Comment on above: Performed By: #### H EPATIC, LIPASE, CBC, BMP #### [address] Neutrophils/100 WBC (Bld) 86.3 % Normal . [facility] Comment on above: Performed By: #### H EPATIC, LIPASE, CBC, BMP #### [address] [place] [address] [place] NRBC% 0.1 /100{WBC} Normal 0-0.5 [facility] Comment on above: Performed By: #### H EPATIC, LIPASE, CBC, BMP #### [facility] [address] Platelet mean volume (Bld) [Entitic vol] 7.6 fL Normal 6.3-10.7 [facility] Comment on above: Performed By: #### H EPATIC, LIPASE, CBC, BMP #### [address] Platelets (Bld) [#/Vol] 332 10*3/uL Normal 150-450 [facility] Comment on above: Performed By: #### H EPATIC, LIPASE, CBC, BMP #### [address] RBC (Bld) [#/Vol] 5.16 10*6/uL High 3.60-5.00 [facility] Comment on above: Performed By: #### H EPATIC, LIPASE, CBC, BMP #### [address] WBC (Bld) [#/Vol] 10.7 10*3/uL Normal 3.8-11.6 [facility] Comment on above: Performed By: #### H EPATIC, LIPASE, CBC, BMP #### [address] Creatine Kinaseon 05-15-2022 CK [Catalytic activity/Vol] 94 U/L Normal 22-269 [facility] Comment on above: Performed By: #### H EPATIC, LIPASE, CBC, BMP #### [facility] [address] [place] [address] Creatine kinase [Enzymatic a ctivity/volume] in Serum or PlasmaOrdered By: Keith Griffith on 05-15-2022 CK [Catalytic activity/Vol] 94 U/L 22-269 [facility] Creatine kinase.MB [Mass/vol ume] in Serum or PlasmaOrdered By: Keith Griffith on 05-15-2022 CK.MB [Mass/Vol] 3.1 ng/mL 0.6-6.3 [facility] Creatinine Kinase MBon 05-15 CK.MB [Mass/Vol] 3.1 ng/mL Normal 0.6-6.3 [facility] Comment on above: Performed By: #### H EPATIC, LIPASE, CBC, BMP #### [facility] [address] CKMB Relative Index 3.2 % High 0.00-2.50 [facility] Comment on above: Performed By: #### H EPATIC, LIPASE, CBC, BMP #### [facility] [address] Creatinine and Glomerular fi ltration rate.predicted panel (S/P/Bld)Ordered By: Keith Griffith on 05-15-2022 Creatinine [Mass/Vol] 0.98 mg/dL 0.44-1.03 [facility] Direct bilirubin measurement Ordered By: Keith Griffith on 05-15-2022 Bilirubin.direct [Mass/Vol] 0.1 mg/dL 0.0-0.4 [facility] ECG 12 lead ECGon 05-15-2022 ECG 12 lead ECG [facility] Main [place] [address] [place] [address] Electrocardiograph Report Signed Patient: Gerry Victoria MR#: [id number] [birth year] : 1955 Acct:[id number] Age/Sex: 66 / F ADM Date: 05/15/22 Loc: ER Room: Type: [facility] ER Attending Dr: Ordering Provider: Keith Griffith PA-C Date of Service: 05/15/22 ECG/ECG 12 lead ECG: Chest Pain Copies to: Test Reason : Blood Pressure : 180/088 mmHG Vent. Rate : 080 BPM Atrial Rate : 080 BPM P-R Int : 176 ms QRS Dur : 086 ms QT Int : 416 ms P-R-T Axes : 062 067 076 degrees QTc Int : 479 ms Normal sinus rhythm hyperacute T waves II, III, AVF, V3-V6 Confirmed by Connie Cote DO ([id number]) on 05/16/2022 7:08:50 AM Referred By: Electronically Signed By:Connie Cote DO Transcribed By: MUS Signed By Connie Cote DO 0708 [facility] ECG 12 lead ECG [facility] [place] [address] Electrocardiograph Report Signed Patient: Gerry Victoria MR#: [id number] [birth year] : 1955 Acct:[id number] Age/Sex: 66 / F ADM Date: 05/15/22 Loc: ER Room: Type: [facility] ER Attending Dr: Ordering Provider: Keith Griffith PA-C Date of Service: 05/15/22 ECG/ECG 12 lead ECG: Chest Pain Copies to: Test Reason : Blood Pressure : 163/083 mmHG Vent. Rate : 073 BPM Atrial Rate : 073 BPM P-R Int : 180 ms QRS Dur : 088 ms QT Int : 444 ms P-R-T Axes : 053 068 079 degrees QTc Int : 489 ms Sinus rhythm with premature atrial complexes Prolonged QT hyperacute T waves inferior leads and V3-V6 Confirmed by Connie Cote DO ([id number]) on 05/16/2022 7:09:34 AM Referred By: Electronically Signed By:Connie Cote DO Transcribed By: MUS Signed By Connie Cote DO 0709 [facility] ECG 12 lead ECG [facility] Main [place] [id number] Electrocardiograph Report Signed Patient: Gerry Victoria MR#: [id number] [birth year] : 1955 Acct:[id number] Age/Sex: 66 / F ADM Date: 05/15/22 Loc: ER Room: Type: [facility] ER Attending Dr: Ordering Provider: Keith Griffith PA-C Date of Service: 05/15/22 ECG/ECG 12 lead ECG: ABDOMINAL PAIN Copies to: Test Reason : Blood Pressure : / mmHG Vent. Rate : 068 BPM Atrial Rate : 068 BPM P-R Int : 182 ms QRS Dur : 086 ms QT Int : 436 ms P-R-T Axes : 040 059 071 degrees QTc Int : 463 ms Normal sinus rhythm Confirmed by Connie Cote DO ([id number]) on 05/16/2022 7:09:47 AM Referred By: Electronically Signed By:Connie Cote DO Transcribed By: MUS Signed By Connie Cote DO 0709 Normal [facility] Eosinophils Auto (Bld) [#/Vo l]Ordered By: Keith Griffith on 05-15-2022 Eosinophils (Bld) [#/Vol] 0.0 10*3/uL 0.0-0.45 [facility] Eosinophils/100 WBC Auto (Bl d)Ordered By: Keith Griffith on 05-15-2022 Eosinophils/100 WBC (Bld) 0.3 % . [facility] Erythrocyte distribution wid th Auto (RBC) [Ratio]Ordered By: Keith Griffith on 05-15-2022 Erythrocyte distribution wid th (RBC) [Ratio] 15.2 % 11.9-15.3 [facility] Estimated glomerular filtrat ion rate (GFR) non- AmericanOrdered By: Keith Griffith on 05-15-2022 GFR/1.73 sq M.predicted anthony g non-blacks MDRD (S/P/Bld) [Vol rate/Area] 56 mL/Min [facility] Globulin Calc (S) [Mass/Vol] Ordered By: Keith Griffith on 05-15-2022 Globulin (S) [Mass/Vol] 3.6 g/dL [facility] Hematocrit Auto (Bld) [Volum e fraction]Ordered By: Keith Griffith on 05-15-2022 Hematocrit (Bld) [Volume fraction] 42.8 % 3 4.0-46.4 [facility] Hemoglobin [Mass/volume] in BloodOrdered By: Keith Griffith on 05-15-2022 Hemoglobin (Bld) [Mass/Vol] 14.1 g/dL 11.8-15. 4 [facility] Hepatic Panelon 05-15-2022 Albumin [Mass/Vol] 4.4 g/dL Normal 3.2-5.5 [facility] Comment on above: Performed By: #### H EPATIC, LIPASE, CBC, BMP #### [facility] [address] Albumin/Globulin [Mass ratio] 1.2 {ratio} Normal [facility] Comment on above: Performed By: #### H EPATIC, LIPASE, CBC, BMP #### [facility] [address] ALP [Catalytic activity/Vol] 92 U/L Normal 32-92 [facility] Comment on above: Performed By: #### H EPATIC, LIPASE, CBC, BMP #### [facility] [address] [place] [address] ALT [Catalytic activity/Vol] 17 U/L Normal 10-60 [facility] Comment on above: Performed By: #### H EPATIC, LIPASE, CBC, BMP #### [facility] [address] [place] [address] AST [Catalytic activity/Vol] 26 U/L Normal 10-42 [facility] Comment on above: Performed By: #### H EPATIC, LIPASE, CBC, BMP #### [facility] [address] [place] [address] Bilirubin [Mass/Vol] 0.6 mg/dL Normal 0.3-1.2 [facility] Comment on above: Performed By: #### H EPATIC, LIPASE, CBC, BMP #### [facility] [address] [place] [address] Bilirubin,Indirect 0.5 mg/dL Normal [facility] Comment on above: Performed By: #### H EPATIC, LIPASE, CBC, BMP #### [facility] [address] [place] [address] Bilirubin.indirect [Mass/Vol] 0.1 mg/dL Normal 0.0-0. 4 [facility] Comment on above: Performed By: #### H EPATIC, LIPASE, CBC, BMP #### [facility] [address] [place] [address] Globulin (S) [Mass/Vol] 3.6 g/dL Normal F [facility] Comment on above: Performed By: #### H EPATIC, LIPASE, CBC, BMP #### [facility] [address] Protein [Mass/Vol] 8.0 g/dL High 6.1-7.9 [facility] Comment on above: Performed By: #### H EPATIC, LIPASE, CBC, BMP #### [facility] [address] Ketones Auto test strip (U) [Mass/Vol]Ordered By: Keith Griffith on 05-15-2022 Ketones (U) [Mass/Vol] Negative Negative [facility] - Chemistry and C hemistry - challengeOrdered By: Keith Griffith on 05-15-2022 Lipase [Catalytic activity/Vol] 23.0 U/L 22-5 1 [facility] Natriuretic peptide B (Bld) [Mass/Vol] 365.0 pg/mL 5-100 [facility] - CoagulationOrde red By: Keith Griffith on 05-15-2022 PT Coag (PPP) [Time] 10.7 s 9.0-12.9 [facility] Lactic Acidon 05-15-2022 Lactate [Moles/Vol] 1.5 mmol/L Normal 0.5-2.2 [facility] Comment on above: Result Comment: PERF ORMED BY: [facility] [address] [place] [address] PATHOLOGIST M[employer]RATION AGENT WILDER BOTELLO M.D. Performed By: #### H EPATIC, LIPASE, CBC, BMP #### [facility] [address] Leukocytes [#/volume] correc poly for nucleated erythrocytes in Blood by Automated counOrdered By: Keith Griffith on 05-15-2022 WBC corrected for nucl RBC A uto (Bld) [#/Vol] 10.7 10*3/uL 3.8-11.6 [facility] Lipaseon 05-15-2022 Lipase [Catalytic activity/Vol] 23.0 U/L Normal 22-5 1 [facility] Comment on above: Result Comment: PERF ORMED BY: [facility] [address] [place] [address] PATHOLOGIST M[employer]RATION AGENT WILDER BOTELLO M.D. Performed By: #### H EPATIC, LIPASE, CBC, BMP #### [facility] [address] Lymphocytes Auto (Bld) [#/Vo l]Ordered By: Keith Griffith on 05-15-2022 Lymphocytes (Bld) [#/Vol] 0.9 10*3/uL 1.00-4.8 [facility] Lymphocytes/100 WBC Auto (Bl d)Ordered By: Keith Griffith on 05-15-2022 Lymphocytes/100 WBC (Bld) 8.6 % . [facility] MCH Auto (RBC) [Entitic mass ]Ordered By: Keith Griffith on 05-15-2022 MCH (RBC) [Entitic mass] 27.4 pg 24.7-34.3 [facility] MCHC Auto (RBC) [Mass/Vol]Or dered By: Keith Griffith on 05-15-2022 MCHC (RBC) [Mass/Vol] 33.0 g/dL 32.0-35.0 [facility] MCV Auto (RBC) [Entitic vol] Ordered By: Keith Griffith on 05-15-2022 MCV (RBC) [Entitic vol] 83.0 fL 80-100 F [facility] Monocyte distribution width [Entitic volume] in Blood by AutomatedOrdered By: Keith Griffith on 05-15-2022 Monocyte distribution width Auto (Bld) [Entitic vol] 15.42 % 0.00-20.00 [facility] Monocytes Auto (Bld) [#/Vol] Ordered By: Keith Griffith on 05-15-2022 Monocytes (Bld) [#/Vol] 0.5 10*3/uL 0.0-0.8 [facility] Monocytes/100 WBC Auto (Bld) Ordered By: Keith Griffith on 05-15-2022 Monocytes/100 WBC (Bld) 4.2 % . [facility] Neutrophils Auto (Bld) [#/Vo l]Ordered By: Keith Griffith on 05-15-2022 Neutrophils (Bld) [#/Vol] 9.3 10*3/uL 1.8-7.7 [facility] Neutrophils/100 WBC Auto (Bl d)Ordered By: Keith Griffith on 05-15-2022 Neutrophils/100 WBC (Bld) 86.3 % . [facility] Nitrite Test strip Ql (U)Ord ered By: Keith Griffith on 05-15-2022 Nitrite Ql (U) Negative Negative [facility] No Panel InformationOrdered By: Keith Griffith on 05-15-2022 Estimated GFR () > 60 mL/Min [facility] Comment on above: GFR estimated refere nce range: According to KDOQI guidelines, <60 ml/min/1.73m2 is sufficient to diagnose a patient with chronic kidney disease. Pharmacy Creatinine Clearance (Chem 51.97 [facility] Nucleated erythrocytes [Pres ence] in Blood by Automated countOrdered By: Keith Griffith on 05-15-2022 Nucleated RBC Auto Ql (Bld) 0.1 /100{WBC} 0-0.5 [facility] Partial Thromboplastin Timeo n 05-15-2022 aPTT Coag (Bld) [Time] 29.6 s Normal 25.1-36.5 [facility] Comment on above: Result Comment: PERF ORMED BY: [place] [address] PATHOLOGIST M[employer] AGENT WILDER BOTELLO M.D. Performed By: #### H EPATIC, LIPASE, CBC, BMP #### [address] Platelet mean volume Auto (B ld) [Entitic vol]Ordered By: Keith Griffith on 05-15-2022 Platelet mean volume (Bld) [Entitic vol] 7.6 fL 6.3-10.7 [facility] Platelet poor plasma interna tional normalized ratio (INR) by coagulation assay (relatOrdered By: Keith Griffith on 05-15-2022 INR Coag (PPP) [Relative time] 0.9 {INR} [facility] Comment on above: INR Therapeutic Rang e A) Pre- and Peroperative OAT started two weeks before surgery. NOT HIP SURGERY: 1.5 - 2.5 HIP SURGERY: 2 - 3B) Primary and secondary prevention of venous THROMBOSIS: 2 - 3C) Active venous thrombosis, pulmonary embolismand prevention of recurrent venous thrombosis: 2 - 3D) Prevention of arterial thromboembolismincluding patients with mechanical heart valves: 3 - 4.5 Platelets Auto (Bld) [#/Vol] Ordered By: Keith Griffith on 05-15-2022 Platelets (Bld) [#/Vol] 332 10*3/uL 150-450 [facility] Protein Auto test strip (U) [Mass/Vol]Ordered By: Keith Griffith on 05-15-2022 Protein (U) [Mass/Vol] Negative Negative [facility] Protein [Mass/volume] in Ser um or PlasmaOrdered By: Keith Griffith on 05-15-2022 Protein [Mass/Vol] 8.0 g/dL 6.1-7.9 [facility] Prothrombin Time INRon 05-15 INR Coag (PPP) [Relative time] 0.9 {INR} Normal [facility] Comment on above: Result Comment: INR Therapeutic Range A) Pre- and Peroperative OAT started two weeks before surgery. NOT HIP SURGERY: 1.5 - 2.5 HIP SURGERY: 2 - 3 B) Primary and secondary prevention of venous THROMBOSIS: 2 - 3 C) Active venous thrombosis, pulmonary embolism and prevention of recurrent venous thrombosis: 2 - 3 D) Prevention of arterial thromboembolism including patients with mechanical heart valves: 3 - 4.5 Performed By: #### H EPATIC, LIPASE, CBC, BMP #### [facility] [address] PT Coag (PPP) [Time] 10.7 s Normal 9.0-12.9 [facility] Comment on above: Performed By: #### H EPATIC, LIPASE, CBC, BMP #### [facility] [address] RBC Auto (Bld) [#/Vol]Ordere d By: Keith Griffith on 05-15-2022 RBC (Bld) [#/Vol] 5.16 10*6/uL 3.60-5.00 [facility] Serum or plasma alanine kirkpatrick otransferase measurement without P-5'-P (enzymatic activiOrdered By: Keith Griffith on 05-15-2022 ALT No additional P-5'-P [Ca talytic activity/Vol] 17 U/L 10-60 [facility] Serum or plasma albumin/glob ulin mass ratioOrdered By: Keith Griffith on 05-15-2022 Albumin/Globulin [Mass ratio] 1.2 {ratio} [facility] Serum or plasma alkaline kami sphatase measurement (enzymatic activity/volume)Ordered By: Keith Griffith on 05-15-2022 ALP [Catalytic activity/Vol] 92 U/L 32-92 [facility] Serum or plasma anion gap de terminationOrdered By: Keith Griffith on 05-15-2022 Anion gap [Moles/Vol] 13.5 mmol/L 6.0-15.0 [facility] Serum or plasma aspartate am inotransferase measurement (enzymatic activity/volume)Ordered By: Keith Griffith on 05-15-2022 AST [Catalytic activity/Vol] 26 U/L 10-42 [facility] Serum or plasma calcium ventura urement (mass/volume)Ordered By: Keith Griffith on 05-15-2022 Calcium [Mass/Vol] 8.9 mg/dL 8.2-10.2 [facility] Serum or plasma chloride alfie surement (moles/volume)Ordered By: Keith Griffith on 05-15-2022 Chloride [Moles/Vol] 98 mmol/L 95-114 [facility] Serum or plasma creatine kin ase MB (CKMB)/total creatine kinase (CK) ratio by calculaOrdered By: Keith Griffith on 05-15-2022 CK.MB Calc [Catalytic fraction] 3.2 % 0.00 -2.50 [facility] Serum or plasma glucose ventura urement (mass/volume)Ordered By: Keith Griffith on 05-15-2022 Glucose [Mass/Vol] 126 mg/dL 70-100 [facility] Comment on above: ADA recommended refe rence rangeRandom Glucose Reference Range is dependent on time and content of last meal. Glucose of more than 200 mg/dL in a nonstressed, ambulatory subject supports the diagnosis of Diabetes Mellitus. Serum or plasma non-glucuron idated bilirubin measurement (mass/volume)Ordered By: Keith Griffith on 05-15-2022 Bilirubin.indirect [Mass/Vol] 0.5 mg/dL [facility] Serum or plasma potassium me asurement (moles/volume)Ordered By: Keith Griffith on 05-15-2022 Potassium [Moles/Vol] 3.2 mmol/L 3.5-5.1 [facility] Serum or plasma sodium measu rement (moles/volume)Ordered By: Keith Griffith on 05-15-2022 Sodium [Moles/Vol] 134 mmol/L 136-146 [facility] Serum or plasma total biliru bin measurement (mass/volume)Ordered By: Keith Griffith on 05-15-2022 Bilirubin [Mass/Vol] 0.6 mg/dL 0.3-1.2 [facility] Serum or plasma total carbon dioxide measurement (moles/volume)Ordered By: Keith Griffith on 05-15-2022 CO2 [Moles/Vol] 25.7 mmol/L 22.0-30.0 [facility] Serum or plasma urea nitroge n measurement (mass/volume)Ordered By: Keith Griffith on 05-15-2022 Urea nitrogen [Mass/Vol] 7 mg/dL 12-17 [facility] Specific gravity Auto test s trip (U) [Rel density]Ordered By: Keith Griffith on 05-15-2022 Specific gravity (U) [Rel density] 1.045 1.001-1.030 [facility] Troponin I High Sensitivityo n 05-15-2022 Troponin I High Sensitivity 381 pg/mL Off scale high 0-15 [facility] Comment on above: Result Comment: Crit ical value result called at 2153 on 05/15/22 PERFORMED BY: [place] [address] PATHOLOGIST M[employer] AGENT WILDER BOTELLO M.D. Performed By: #### H S TROP #### [address] Troponin I High Sensitivity 139 pg/mL Off scale high 0-15 [facility] Comment on above: Result Comment: Crit ical value result called at 1908 on 05/15/22 PERFORMED BY: [place] [address] PATHOLOGIST M[employer] AGENT WILDER BOTELLO M.D. Performed By: #### H EPATIC, LIPASE, CBC, BMP #### [facility] [address] [place] [address] Troponin I.cardiac [Mass/vol ume] in Serum or Plasma by High sensitivity methodOrdered By: Keith Griffith on 05-15-2022 Troponin I.cardiac High sens itivity method [Mass/Vol] 381 pg/mL 0-15 [facility] Comment on above: Critical valueresult calledat 2153 on 05/15/22 Urinalysison 05-15-2022 Appearance (U) Clear Normal Clear [facility] Comment on above: Order Comment: Name Collection Type:: Straight Catheter Performed By: #### H EPATIC, LIPASE, CBC, BMP #### [place] [address] [place] Bilirubin,Urine Negative Normal Negative [facility] Comment on above: Order Comment: Name Collection Type:: Straight Catheter Performed By: #### H EPATIC, LIPASE, CBC, BMP #### [address] Color (U) Yellow Normal Yellow [facility] Comment on above: Order Comment: Name Collection Type:: Straight Catheter Performed By: #### H EPATIC, LIPASE, CBC, BMP #### [place] [address] [place] Glucose Ql (U) Normal Normal Normal [facility] Comment on above: Order Comment: Name Collection Type:: Straight Catheter Performed By: #### H EPATIC, LIPASE, CBC, BMP #### [facility] [address] [place] [address] [place] Ketones Ql (U) Negative Normal Negative [facility] Comment on above: Order Comment: Name Collection Type:: Straight Catheter Performed By: #### H EPATIC, LIPASE, CBC, BMP #### [facility] [address] [place] [address] [place] Leukocyte esterase Test stri p Ql (U) Negative Normal Negative [facility] Comment on above: Order Comment: Name Collection Type:: Straight Catheter Performed By: #### H EPATIC, LIPASE, CBC, BMP #### [address] Nitrite,Urine Negative Normal Negative [facility] Comment on above: Order Comment: Name Collection Type:: Straight Catheter Performed By: #### H EPATIC, LIPASE, CBC, BMP #### [address] Occult Blood,Urine Negative Normal Negative [facility] Comment on above: Order Comment: Name Collection Type:: Straight Catheter Result Comment: PERF ORMED BY: [place] [address] PATHOLOGIST M[employer]ENT WILDER BOTELLO M.D. Performed By: #### H EPATIC, LIPASE, CBC, BMP #### [address] pH (U) 7.0 [pH] Normal 5.0-9.0 [facility] Comment on above: Order Comment: Name Collection Type:: Straight Catheter Performed By: #### H EPATIC, LIPASE, CBC, BMP #### [address] Protein,Urine Negative Normal Negative [facility] Comment on above: Order Comment: Name Collection Type:: Straight Catheter Performed By: #### H EPATIC, LIPASE, CBC, BMP #### [address] Specificy [place],Urine 1.045 High 1.001-1.030 [facility] Comment on above: Order Comment: Name Collection Type:: Straight Catheter Performed By: #### H EPATIC, LIPASE, CBC, BMP #### [address] Urobilinogen,Urine Normal Normal Normal [facility] Comment on above: Order Comment: Name Collection Type:: Straight Catheter Performed By: #### H EPATIC, LIPASE, CBC, BMP #### [address] Urine clarity by refractomet ry automatedOrdered By: Keith Griffith on 05-15-2022 Clarity Refractometry automated (U) Clear Clear [facility] Urine glucose measurement by automated test strip (mass/volume)Ordered By: Keith Griffith on 05-15-2022 Glucose Auto test strip (U) [Mass/Vol] Normal mg/dL Normal [facility] Urine hemoglobin detection b y automated test stripOrdered By: Keith Griffith on 05-15-2022 Hemoglobin Auto test strip Ql (U) Negative Ne gative [facility] Urine lactic acid measuremen tOrdered By: Keith Griffith on 05-15-2022 Lactate (U) [Moles/Vol] 1.5 mmol/L 0.5-2.2 [facility] Urine leukocyte esterase det ection by automated test stripOrdered By: Keith Griffith on 05-15-2022 Leukocyte esterase Auto test strip Ql (U) Negative Negative [facility] Urobilinogen Auto test strip (U) [Mass/Vol]Ordered By: Keith Griffith on 05-15-2022 Urobilinogen (U) [Mass/Vol] Normal mg/dL Normal [facility] WBC Auto (Bld) [#/Vol]Ordere d By: Keith Griffith on 05-15-2022 WBC (Bld) [#/Vol] 10.7 10*3/uL 3.8-11.6 [facility] XR chest 1V portableon 05-15 XR chest 1V portable [facility] [place] [address] XRay Report Signed Patient: Gerry Victoria MR#: [id number] 10 : 1955 Acct:[id number] Age/Sex: 66 / F ADM Date: 05/15/22 Loc: ER Room: Type: PRE ER Attending Dr: Copies to: Keith Griffith PA-C Ordering Provider: Keith Griffith PA-C Date of Service: 05/15/22 XR/XR chest 1V portable: ABDOMINAL PAIN SINGLE VIEW CHEST CLINICAL HISTORY: Abdominal pain. COMPARISON: None FINDINGS: Heart is normal in size. No consolidation pneumothorax pleural effusion or free air. XR/XR chest 1V portable IMPRESSION: NO ACUTE FINDINGS Impression dictated by: Nicholas Ann Jr., D.O.05/15/2022 5:33 PM Dictation Location: [place] [address] Transcribed By: [facility] 05/15/221732 Dictated By: Nicholas Ann Jr, DO 05/15/221731 Signed By: 05/15/221732 Normal [facility] pH Auto test strip (U)Ordere d By: Keith Griffith on 05-15-2022 pH (U) 7.0 [pH] 5.0-9.0 [facility] XR wrist LT min 3V*on 2022 XR wrist LT min 3V* [facility] [place] [place] [address] XRay Report Signed Patient: Gerry Victoria MR#: [id number] 10 : 1955 Acct:[id number] Age/Sex: 66 / F ADM Date: 04/06/22 Loc: ICXD Room: Type: [facility] Attending Dr: Ephraim Casanova APRN Copies to: Ephraim Casanova APRN - EPHRAIM TITUS RN, MSN Ordering Provider: EPHRAIM CASANOVA RN, MSN Date of Service: 04/06/22 XR/XR wrist LT min 3V*: radiculopathy;Left wrist pain ([id number]) XR/XR cervical spine 5V*: radiculopathy;Cervical radiculopathy CERVICAL SPINE 5 views, left wrist 3 views: CLINICAL HISTORY: Distal left radial wrist pain and neck pain radiates down arms at night. COMPARISON: None FINDINGS: Cervical spine: Vertebral body heights appear maintained. Mild spondylosis C5-C7. Mild diffuse facet joint degenerative change. No prevertebral soft tissue swelling. Left wrist: No focal soft tissue abnormality. No acute bony process is seen. Mild degenerative changes involving the carpus. XR/XR cervical spine 5V* IMPRESSION: MILD SPONDYLOSIS C5-C7. MILD DEGENERATIVE CHANGES OF THE CARPUS WITHOUT ACUTE BONY PROCESS. Impression dictated by: Nicholas Ann Jr., Colin04/06/2022 4:20 PM Dictation Location: [place] [address] Transcribed By: [facility] 04/06/221619 Dictated By: Nicholas Ann Jr, DO 04/06/22 1618 Signed By: 04/06/22 162 Normal [facility] Basophils Auto (Bld) [#/Vol] Ordered By: Ward Zuniga on 01-03-2022 Basophils (Bld) [#/Vol] 0.0 10*3/uL 0.0-0.2 [facility] Basophils/100 WBC Auto (Bld) Ordered By: Ward Zuniga on 01-03-2022 Basophils/100 WBC (Bld) 0.9 % . F [facility] Blood hemoglobin measurement (mass/volume)Ordered By: Ward Zuniga on 01-03-2022 Hemoglobin (Bld) [Mass/Vol] 11.2 g/dL 11.8-15. 4 [facility] Blood leukocytes automated c ount (number/volume)Ordered By: Ward Zuniga on 01-03-2022 WBC (Bld) [#/Vol] 4.8 10*3/uL 4.5-11.0 [facility] Body fluid albumin measureme nt (mass/volume)Ordered By: Ward Zuniga on 01-03-2022 Albumin (Body fld) [Mass/Vol] 3.6 g/dL 3.2-5. 5 [facility] Cholesterol [Mass/volume] in Serum or PlasmaOrdered By: Ward Zuniga on 01-03-2022 Cholesterol [Mass/Vol] 186 mg/dL 140-200 [facility] Comment on above: Chol less than 200 m g/dl low riskChol 201-239 mg/dl borderline riskChol 240 mg/dl and greater high risk Cholesterol in LDL Calc [Mas s/Vol]Ordered By: Ward uZniga on 01-03-2022 Cholesterol in LDL [Mass/Vol] 117 mg/dL 0-100 [facility] Comment on above: LDL ATP III CLASSIFI CATIONLDL less than 100 mg/dL OptimalLDL 100-129 mg/dL Near or above optimalLDL 130-159 mg/dL Borderline highLDL 160-189 mg/dL HighLDL greater than 189 mg/dL Very high Cholesterol in VLDL Calc [Ma ss/Vol]Ordered By: Ward Zuniga on 01-03-2022 Cholesterol in VLDL [Mass/Vol] 18 mg/dL [facility] Creatinine and Glomerular fi ltration rate.predicted panel (S/P/Bld)Ordered By: Ward Zuniga on 01-03-2022 Creatinine [Mass/Vol] 0.91 mg/dL 0.44-1.03 [facility] Eosinophils Auto (Bld) [#/Vo l]Ordered By: Ward Zuniga on 01-03-2022 Eosinophils (Bld) [#/Vol] 0.1 10*3/uL 0.0-0.45 [facility] Eosinophils/100 WBC Auto (Bl d)Ordered By: Ward Zuniga on 01-03-2022 Eosinophils/100 WBC (Bld) 2.6 % . [facility] Erythrocyte distribution wid th Auto (RBC) [Ratio]Ordered By: Ward Zuniga on 01-03-2022 Erythrocyte distribution wid th (RBC) [Ratio] 14.4 % 11.9-15.3 [facility] Estimated glomerular filtrat ion rate (GFR) non- AmericanOrdered By: Ward Zuniga on 01-03-2022 GFR/1.73 sq M.predicted anthony g non-blacks MDRD (S/P/Bld) [Vol rate/Area] > 60 mL/Min [facility] Globulin Calc (S) [Mass/Vol] Ordered By: Ward Zuniga on 01-03-2022 Globulin (S) [Mass/Vol] 2.5 g/dL [facility] Hematocrit Auto (Bld) [Volum e fraction]Ordered By: Ward Zuniga on 01-03-2022 Hematocrit (Bld) [Volume fraction] 34.5 % 3 4.0-46.4 [facility] Laboratory - Hematology and Cell countsOrdered By: Ward Zuniga on 01-03-2022 Nucleated RBC/100 WBC (Bld) [Ratio] 0.1 % 0-0.5 [facility] Lymphocytes Auto (Bld) [#/Vo l]Ordered By: Ward Zuniga on 01-03-2022 Lymphocytes (Bld) [#/Vol] 1.6 10*3/uL 1.00-4.8 [facility] Lymphocytes/100 WBC Auto (Bl d)Ordered By: Ward Zuniga on 01-03-2022 Lymphocytes/100 WBC (Bld) 33.6 % . [facility] MCH Auto (RBC) [Entitic mass ]Ordered By: Ward Zuniga on 01-03-2022 MCH (RBC) [Entitic mass] 26.9 pg 24.7-34.3 [facility] MCHC Auto (RBC) [Mass/Vol]Or dered By: Ward Zuniga on 01-03-2022 MCHC (RBC) [Mass/Vol] 32.6 g/dL 32.0-35.0 [facility] MCV Auto (RBC) [Entitic vol] Ordered By: Ward Zuniga on 01-03-2022 MCV (RBC) [Entitic vol] 82.4 fL 80-100 [facility] Monocytes Auto (Bld) [#/Vol] Ordered By: Ward Zuniga on 01-03-2022 Monocytes (Bld) [#/Vol] 0.4 10*3/uL 0.0-0.8 [facility] Monocytes/100 WBC Auto (Bld) Ordered By: Ward Zuniga on 01-03-2022 Monocytes/100 WBC (Bld) 7.5 % . [facility] Neutrophils Auto (Bld) [#/Vo l]Ordered By: Ward Zuniga on 01-03-2022 Neutrophils (Bld) [#/Vol] 2.6 10*3/uL 1.8-7.7 [facility] Neutrophils/100 WBC Auto (Bl d)Ordered By: Ward Zuniga on 01-03-2022 Neutrophils/100 WBC (Bld) 55.4 % . [facility] No Panel InformationOrdered By: Ward Zuniga on 01-03-2022 Estimated GFR () > 60 mL/Min [facility] Comment on above: GFR estimated refere nce range: According to KDOQI guidelines, <60 ml/min/1.73m2 is sufficient to diagnose a patient with chronic kidney disease. Pharmacy Creatinine Clearance (Chem N/A [facility] Platelet mean volume Auto (B ld) [Entitic vol]Ordered By: Ward Zuniga on 01-03-2022 Platelet mean volume (Bld) [Entitic vol] 7.5 fL 6.3-10.7 [facility] Platelets Auto (Bld) [#/Vol] Ordered By: Ward Zuniga on 01-03-2022 Platelets (Bld) [#/Vol] 288 10*3/uL 150-450 [facility] Protein [Mass/volume] in Ser um or PlasmaOrdered By: Ward Zuniga on 01-03-2022 Protein [Mass/Vol] 6.1 g/dL 6.1-7.9 [facility] RBC Auto (Bld) [#/Vol]Ordere d By: Ward Zuniga on 01-03-2022 RBC (Bld) [#/Vol] 4.18 10*6/uL 3.60-5.00 [facility] Serum or plasma alanine kirkpatrick otransferase measurement without P-5'-P (enzymatic activiOrdered By: Ward Zuniga on 01-03-2022 ALT No additional P-5'-P [Ca talytic activity/Vol] 12 U/L [facility] Serum or plasma albumin/glob ulin mass ratioOrdered By: Ward Zuniga on 01-03-2022 Albumin/Globulin [Mass ratio] 1.4 {ratio} [facility] Serum or plasma alkaline kami sphatase measurement (enzymatic activity/volume)Ordered By: Ward Zuniga on 01-03-2022 ALP [Catalytic activity/Vol] 65 U/L 92 [facility] Serum or plasma anion gap de terminationOrdered By: Ward Zuniga on 01-03-2022 Anion gap [Moles/Vol] 15.0 mmol/L 6.0-15.0 [facility] Serum or plasma aspartate am inotransferase measurement (enzymatic activity/volume)Ordered By: Ward Zuniga on 01-03-2022 AST [Catalytic activity/Vol] 16 U/L [facility] Serum or plasma calcium ventura urement (mass/volume)Ordered By: Ward Zuniga on 01-03-2022 Calcium [Mass/Vol] 8.9 mg/dL 8.2-10.2 [facility] Serum or plasma chloride alfie surement (moles/volume)Ordered By: Ward Zuniga on 01-03-2022 Chloride [Moles/Vol] 101 mmol/L 95-114 [facility] Serum or plasma glucose ventura urement (mass/volume)Ordered By: Ward Zuniga on 01-03-2022 Glucose [Mass/Vol] 86 mg/dL 70-100 [facility] Comment on above: ADA recommended refe rence rangeRandom Glucose Reference Range is dependent on time and content of last meal. Glucose of more than 200 mg/dL in a nonstressed, ambulatory subject supports the diagnosis of Diabetes Mellitus. Serum or plasma high density lipoprotein (HDL) cholesterol measurementOrdered By: Ward Zuniga on 01-03-2022 Cholesterol in HDL [Mass/Vol] 51 mg/dL 35-85 [facility] Comment on above: HDL CHOL ATP-III CLA SSIFICATION Cardiovascular RiskHDL > or equal to 60 mg/dL LOWHDL < 40 mg/dL HIGH Serum or plasma potassium me asurement (moles/volume)Ordered By: Ward Zuniga on 01-03-2022 Potassium [Moles/Vol] 4.0 mmol/L 3.5-5.1 [facility] Serum or plasma sodium measu rement (moles/volume)Ordered By: Ward Zuniga on 01-03-2022 Sodium [Moles/Vol] 140 mmol/L 136-146 [facility] Serum or plasma total biliru bin measurement (mass/volume)Ordered By: Ward Zuniga on 01-03-2022 Bilirubin [Mass/Vol] 0.5 mg/dL 0.3-1.2 [facility] Serum or plasma total carbon dioxide measurement (moles/volume)Ordered By: Ward Zuniga on 01-03-2022 CO2 [Moles/Vol] 28.0 mmol/L 22.0-30.0 [facility] Serum or plasma total choles terol/high density lipoprotein (HDL) cholesterol mass ratOrdered By: Ward Zuniga on 01-03-2022 Cholesterol.total/Cholestero l in HDL [Mass ratio] 3.6 {ratio} <5.0 [facility] Serum or plasma urea nitroge n measurement (mass/volume)Ordered By: Ward Zuniga on 01-03-2022 Urea nitrogen [Mass/Vol] 6 mg/dL 9- [facility] TSH DL <= 0.005 mIU/L QnOrde red By: Ward Zuniga on 01-03-2022 TSH Qn 0.17 m[IU]/L 0.45-5.33 [facility] Triglyceride [Mass/volume] i n Serum or PlasmaOrdered By: Ward Zuniga on 01-03-2022 Triglyceride [Mass/Vol] 91 mg/dL 35-149 [facility] Comment on above: TRIG ATP III CLASSIF ICATIONTRIG less than 150 mg/dL NormalTRIG 150-199 mg/dL Borderline highTRIG 200-500 mg/dL High TRIG greater than 500 mg/dL Very highStandard traceable to the Center for Disease Conrtrol and Prevention (CDC) test method. COVID-19 Positive/NegativeOr dered By: Molina Villanueva on 12-15-2021 SARS-CoV-2 (COVID-19) N gene ROXANA+probe Ql (Resp) Negative Negative [facility] Comment on above: Testing for SARS-CoV -2 by RT-PCR This test was developed and its performance characteristics determined by [employer] ([employer]) and validated at the [facility]. This test has not been FDA cleared or approved. This test has been authorized by FDA under an Emergency Use Authorization (EUA). This test has been validated in accordance with the FDA's Guidance Document (Policy for Diagnostics Testing in Laboratories Certified to Perform High Complexity Testing under CLIA prior to Emergency Use Authorization for Coronavirus Disease-2019 during the Public Health Emergency) issued on June 27, 2019. This test is only authorized for the duration of time the declaration that circumstances exist justifying the authorization of the emergency use of in vitro diagnostic tests for detection of SARS-CoV-2 virus and/or diagnosis of COVID-19 infection under section 564(b)(1) of the Act, 21 U.S.C. 360bbb-3(b)(1), unless the authorization is terminated or revoked sooner. Testing for SARS-CoV -2 by RT-PCRThis test was developed and its performance characteristics determined by [employer] ([employer]) and validated at the [facility]. This test has not been FDA cleared or approved. This test has been authorized by FDA under an Emergency Use Authorization (EUA). This test has been validated in accordance with the FDA's Guidance Document (Policy for Diagnostics Testing in Laboratories Certified to Perform High Complexity Testing under CLIA prior to Emergency Use Authorization for Coronavirus Disease-2019 during the Public Health Emergency) issued on June 27, 2019. This test is only authorized for the duration of time the declaration that circumstances exist justifying the authorization of the emergency use of in vitro diagnostic tests for detection of SARS-CoV-2 virus and/or diagnosis of COVID-19 infection under section 564(b)(1) of the Act, 21 U.S.C. 360bbb-3(b)(1), unless the authorization is terminated or revoked sooner. Q - BASIC METABOLIC PANEL W/ EGFRon 07-05-2021 BUN/CREA 11 NOT APPLICABLE Normal 6-22 [employer] Comment on above: Order Comment: [facility] performed at: [employer] [facility], [address] [place] [address], [address] [place] [address], [phone], [address] Grade Teacher: Alli Parker MD [facility] Collection Date/Time: [facility] Results Received Date/Time: [facility] Reported Date/Time: [id number] Performed By: #### T , [id number] #### [facility] Default [address] [place] [address] Calcium [Mass/Vol] 8.9 mg/dL Normal 8.6-10.4 Ashley [employer] Comment on above: Order Comment: [facility] performed at: [employer] [facility], [address] [facility], [address] [place] [address], [phone], [address] Grade Teacher: Alli Parker MD [facility] Collection Date/Time: [id number] [facility] Results Received Date/Time: [id number] [facility] Reported Date/Time: Performed By: #### T LUIS, [id number] #### [facility] [address] [place] [address] Chloride [Moles/Vol] 101 mmol/L Normal 98-110 [facility] Comment on above: Order Comment: [facility] performed at: [employer], [employer] [facility], [address] [facility], [address] [place] [address], [address] [place] [address], [address] Grade Teacher: Alli Parker MD [facility] Collection Date/Time: [facility] Results Received Date/Time: [facility] Reported Date/Time: Performed By: #### T LUIS, [id number] #### [facility] [address] [place] [address] CO2 [Moles/Vol] 30 mmol/L Normal 20-32 [facility] Comment on above: Order Comment: [facility] performed at: [employer], [employer] [facility], [address] [place] , [address] [place] [address], [address] [place] [address], [address] Grade Teacher: Alli Parker MD [facility] Collection Date/Time: [facility] Results Received Date/Time: [facility] Reported Date/Time: Performed By: #### T LUIS, [id number] #### [facility] [address] [place] [address] Creatinine [Mass/Vol] 0.94 mg/dL Normal 0.50-0.99 [facility] Comment on above: Order Comment: [facility] performed at: [employer], [employer] [facility], [address] [place] , [address] [place] [address], [address] [place] [address], 1[address] Grade Teacher: Alli Parker MD [facility] Collection Date/Time: [facility] Results Received Date/Time: [facility] Reported Date/Time: Result Comment: For patients >49 years of age, the reference limit for Creatinine is approximately 13% higher for people identified as -Kyrgyz. Performed By: #### T LUIS, [id number] #### [facility] [address] [place] [address] eGFRAA ([facility]) 73 mL/min/1.73m2 Normal > OR = 60 [facility] [employer] Comment on above: Order Comment: [facility] performed at: [employer], [employer] [facility], [address] [place] [address], [address] [place] [address], [address] [place] [address], [address] Grade Teacher: Alli Parker MD [facility] Collection Date/Time: [facility] Results Received Date/Time: [facility] Reported Date/Time: Performed By: #### T SH, [id number] #### [facility] [address] [place] [address] eGFRNAA ([facility]) 63 mL/min/1.73m2 Normal > OR = 60 [facility] [employer] Comment on above: Order Comment: [facility] performed at: [employer], [employer] [facility], [address] [place] [address], [address] [place] [address], [address] [place] [address], 1[address] Grade Teacher: Alli Parker MD [facility] Collection Date/Time: [facility] Results Received Date/Time: [facility] Reported Date/Time: Performed By: #### T SH, [id number] #### [facility] [address] [place] [address] Glucose [Mass/Vol] 82 mg/dL Normal 65-99 [facility] Comment on above: Order Comment: [facility] performed at: [employer], [employer] [facility], [address] [place] [address], [address] [place] [address], [address] [place] [address], 1[address] Grade Teacher: Alli Parker MD [facility] Collection Date/Time: [facility] Results Received Date/Time: [facility] Reported Date/Time: Result Comment: Fasting reference interval Performed By: #### T SH, [id number] #### [facility] [address] [place] [address] Potassium [Moles/Vol] 4.3 mmol/L Normal 3.5-5.3 [facility] [employer] Comment on above: Order Comment: [facility] performed at: [employer], [employer] [facility], [address] , [address] [place] [address], [phone], 1[address] Grade Teacher: Alli Parker MD [facility] Collection Date/Time: [facility] Results Received Date/Time: [facility] Reported Date/Time: Performed By: #### T LUIS, [id number] #### [facility] [address] [place] [address] Sodium [Moles/Vol] 138 mmol/L Normal 135-146 [facility] [employer] Comment on above: Order Comment: [facility] performed at: [employer], [employer] [facility], [address] [facility], [address] [place] [address], [phone], 1[address] Grade Teacher: Alli Parker MD [facility] Collection Date/Time: [facility] Results Received Date/Time: [facility] Reported Date/Time: Performed By: #### T SH, [id number] #### [facility] [address] [place] [address] Urea nitrogen [Mass/Vol] 10 mg/dL Normal 7-25 [facility] [employer] Comment on above: Order Comment: [facility] performed at: [employer], [employer] [facility], [address] , [address] [place] [address], [phone], [address] Grade Teacher: Alli Parker MD [facility] Collection Date/Time: [facility] Results Received Date/Time: [facility] Reported Date/Time: Performed By: #### T SH, [id number] #### [facility] [address] [place] [address] TSHon 07-05-2021 TSH Qn 0.07 m[IU]/L Low 0.40-4.50 [facility] [employer] Comment on above: Order Comment: [facility] performed at: [employer], [employer] [facility], [address] [facility], [address] [place] [address], [phone], 1[address] Grade Teacher: Alli Parker MD [facility] Collection Date/Time: [id number] [facility] Results Received Date/Time: [id number] [facility] Reported Date/Time: [id number] Performed By: #### T , [id number] #### [facility] [address] [place] [address] Screening Mammogram, Maral fernandez 03-02-2021 Screening Mammogram, Bilateral EXAMINATION: Screening Mammogram CLINICAL HISTORY: History of hysterectomy 1983 with over 20 years use of hormone replacement therapy. COMPARISON: Dating back to 11/27/2014 TECHNIQUE: 2D and 3D Tomosynthesis of the right and left breasts was performed. FINDINGS: There is a minimal amount of residual fibroglandular tissue within each breast. There are no suspicious masses, areas of suspicious microcalcifications or areas of architectural distortion identified. No evidence of skin thickening. There are stable areas of asymmetric density present. There are stable benign-appearing calcifications present. IMPRESSION: BIRADS 2 : BENIGN FINDINGS, NORMAL INTERVAL FOLLOW UP. MAMMOGRAPHY IS VERY IMPORTANT TO YOUR HEALTH. THE CURRENT [employer] GUIDELINES RECOMMEND ANNUAL MAMMOGRAPHY BEGINNING AT AGE 40. THIS FACILITY UTILIZES A REMINDER SYSTEM TO ENSURE ALL PATIENTS RECEIVE A REMINDER NOTIFICATION AT THE APPROPRIATE TIME BASED ON THE RECOMMENDATIONS OF THIS EXAM. 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 ACCREDITED BY THE [facility] AND FDA. Report reported and signed by Eladia Aviles on 03/03/2021 0945 Normal [facility] Specialist COVID-19 Positive/Negativeon 07-13-2020 SARS-CoV-2 (COVID-19) N gene ROXANA+probe Ql (Resp) Negative Negative [facility] Comment on above: Reference: NegativeT esting for SARS-CoV-2 by RT-PCRThis test was developed and its performance characteristics determined by [employer] ([employer]) and validated at the [facility]. This test has not been FDA cleared or approved. This test has been authorized by FDA under an Emergency Use Authorization (EUA). This test has been validated in accordance with the FDA's Guidance Document (Policy for Diagnostics Testing in Laboratories Certified to Perform High Complexity Testing under CLIA prior to Emergency Use Authorization for Coronavirus Disease-2019 during the Public Health Emergency) issued on June 27, 2019. This test is only authorized for the duration of time the declaration that circumstances exist justifying the authorization of the emergency use of in vitro diagnostic tests for detection of SARS-CoV-2 virus and/or diagnosis of COVID-19 infection under section 564(b)(1) of the Act, 21 U.S.C. 360bbb-3(b)(1), unless the authorization is terminated or revoked sooner. Laboratory - Microbiology an d Antimicrobial susceptibilityon 07-13-2020 SARS-CoV-2 (COVID-19) RNA NA A+probe Ql (Unsp spec) N/A [facility] Albumin [Mass/volume] in Ser um or Plasmaon 06-30-2020 Albumin [Mass/Vol] 3.6 g/dL 3.2-5.5 [facility] Basophils Auto (Bld) [#/Vol] on 06-30-2020 Basophils (Bld) [#/Vol] 0.0 10*3/uL 0.0-0.2 [facility] Basophils/100 WBC Auto (Bld) on 06-30-2020 Basophils/100 WBC (Bld) 0.8 % [facility] Bilirubin Auto test strip Ql (U)on 06-30-2020 Bilirubin Ql (U) Negative Negative [facility] Blood hemoglobin measurement (mass/volume)on 06-30-2020 Hemoglobin (Bld) [Mass/Vol] 12.1 g/dL 11.8-15. 4 [facility] Blood leukocytes automated c ount (number/volume)on 06-30-2020 WBC (Bld) [#/Vol] 4.6 10*3/uL 4.5-11.0 [facility] Cholesterol [Mass/volume] in Serum or Plasmaon 06-30-2020 Cholesterol [Mass/Vol] 202 mg/dL 140-200 [facility] Comment on above: Chol less than 200 m g/dl low riskChol 201-239 mg/dl borderline riskChol 240 mg/dl and greater high risk Cholesterol in LDL Calc [Mas s/Vol]on 06-30-2020 Cholesterol in LDL [Mass/Vol] 134 mg/dL 0-100 [facility] Comment on above: LDL ATP III CLASSIFI CATIONLDL less than 100 mg/dL OptimalLDL 100-129 mg/dL Near or above optimalLDL 130-159 mg/dL Borderline highLDL 160-189 mg/dL HighLDL greater than 189 mg/dL Very high Cholesterol in VLDL Calc [Ma ss/Vol]on 06-30-2020 Cholesterol in VLDL [Mass/Vol] 25 mg/dL [facility] Creatinine and Glomerular fi ltration rate.predicted panel (S/P/Bld)on 06-30-2020 Creatinine [Mass/Vol] 0.84 mg/dL 0.44-1.03 [facility] Eosinophils Auto (Bld) [#/Vo l]on 06-30-2020 Eosinophils (Bld) [#/Vol] 0.1 10*3/uL 0.0-0.45 [facility] Eosinophils/100 WBC Auto (Bl d)on 06-30-2020 Eosinophils/100 WBC (Bld) 2.5 % [facility] Erythrocyte distribution wid th Auto (RBC) [Ratio]on 06-30-2020 Erythrocyte distribution wid th (RBC) [Ratio] 15.4 % 11.9-15.3 [facility] GFR/1.73 sq M.predicted anthony g non-blacks MDRD (S/P/Bld) [Vol rate/Area]on 06-30-2020 GFR/1.73 sq M predicted anthony g non-blacks MDRD (S/P/Bld) [Vol rate/Area] > 60 mL/Min [facility] Globulin Calc (S) [Mass/Vol] on 06-30-2020 Globulin (S) [Mass/Vol] 2.3 g/[facility] Hematocrit Auto (Bld) [Volum e fraction]on 06-30-2020 Hematocrit (Bld) [Volume fraction] 35.9 % 3 4.0-46.4 [facility] Ketones Auto test strip (U) [Mass/Vol]on 06-30-2020 Ketones (U) [Mass/Vol] Negative Negative [facility] Lymphocytes Auto (Bld) [#/Vo l]on 06-30-2020 Lymphocytes (Bld) [#/Vol] 1.4 10*3/uL 1.00-4.8 [facility] Lymphocytes/100 WBC Auto (Bl d)on 06-30-2020 Lymphocytes/100 WBC (Bld) 31.2 % [facility] MCH Auto (RBC) [Entitic mass ]on 06-30-2020 MCH (RBC) [Entitic mass] 28.9 pg 24.7-34.3 [facility] MCHC Auto (RBC) [Mass/Vol]on 06-30-2020 MCHC (RBC) [Mass/Vol] 33.7 g/dL 32.0-35.0 [facility] MCV Auto (RBC) [Entitic vol] on 06-30-2020 MCV (RBC) [Entitic vol] 85.9 fL 80-100 [facility] Monocytes Auto (Bld) [#/Vol] on 06-30-2020 Monocytes (Bld) [#/Vol] 0.3 10*3/uL 0.0-0.8 [facility] Monocytes/100 WBC Auto (Bld) on 06-30-2020 Monocytes/100 WBC (Bld) 7.6 % [facility] Neutrophils Auto (Bld) [#/Vo l]on 06-30-2020 Neutrophils (Bld) [#/Vol] 2.7 10*3/uL 1.8-7.7 [facility] Neutrophils/100 WBC Auto (Bl d)on 06-30-2020 Neutrophils/100 WBC (Bld) 57.9 % [facility] No Panel Informationon 06-30 Estimated GFR () > 60 mL/Min [facility] Comment on above: GFR estimated refere nce range: According to KDOQI guidelines, <60 ml/min/1.73m2 is sufficient to diagnose a patient with chronic kidney disease. Otheron 06-30-2020 GFR/1.73 sq M.predicted MDRD (S/P/Bld) [Vol rate/Area] > 60 mL/Min [facility] Comment on above: GFR estimated refere nce range: According to KDOQI guidelines, <60 ml/min/1.73m2 is sufficient to diagnose a patient with chronic kidney disease. Nucleated RBC/100 WBC (Bld) [Ratio] 0.1 % 0-0.5 [facility] Creatinine Clearance (Chem N/A [facility] Platelet mean volume Auto (B ld) [Entitic vol]on 06-30-2020 Platelet mean volume (Bld) [ Entitic vol] 7.8 fL 6.3-10.7 [facility] Platelets Auto (Bld) [#/Vol] on 06-30-2020 Platelets (Bld) [#/Vol] 244 10*3/uL 150-450 [facility] Protein Auto test strip (U) [Mass/Vol]on 06-30-2020 Protein (U) [Mass/Vol] Negative Negative [facility] Protein [Mass/volume] in Ser um or Plasmaon 06-30-2020 Protein [Mass/Vol] 5.9 g/dL 6.1-7.9 [facility] RBC Auto (Bld) [#/Vol]on RBC (Bld) [#/Vol] 4.18 10*6/uL 3.60-5.00 [facility] Serum or plasma alanine kirkpatrick otransferase measurement without P-5'-P (enzymatic activion 06-30-2020 ALT No additional P-5'-P [Ca talytic activity/Vol] 16 U/L 10-60 [facility] Serum or plasma albumin/glob ulin mass ratioon 06-30-2020 Albumin/Globulin [Mass ratio] 1.6 {ratio} [facility] Serum or plasma alkaline kami sphatase measurement (enzymatic activity/volume)on 06-30-2020 ALP [Catalytic activity/Vol] 63 U/L 32-92 [facility] Serum or plasma aspartate am inotransferase measurement (enzymatic activity/volume)on 06-30-2020 AST [Catalytic activity/Vol] 20 U/L 10-42 [facility] Serum or plasma calcium ventura urement (mass/volume)on 06-30-2020 Calcium [Mass/Vol] 8.7 mg/dL 8.2-10.2 [facility] Serum or plasma chloride alfie surement (moles/volume)on 06-30-2020 Chloride [Moles/Vol] 101 mmol/L 95-[address] [facility] Serum or plasma glucose ventura urement (mass/volume)on 06-30-2020 Glucose [Mass/Vol] 90 mg/dL 70-100 [facility] Comment on above: ADA recommended refe rence rangeRandom Glucose Reference Range is dependent on time and content of last meal. Glucose of more than 200 mg/dL in a nonstressed, ambulatory subject supports the diagnosis of Diabetes Mellitus. Serum or plasma high density lipoprotein (HDL) cholesterol measurementon 06-30-2020 Cholesterol in HDL [Mass/Vol] 42 mg/dL 35-85 [facility] Comment on above: HDL CHOL ATP-III CLA SSIFICATION Cardiovascular RiskHDL > or equal to 60 mg/dL LOWHDL < 40 mg/dL HIGH Serum or plasma potassium me asurement (moles/volume)on 06-30-2020 Potassium [Moles/Vol] 4.1 mmol/L 3.5-5.1 [facility] Serum or plasma sodium measu rement (moles/volume)on 06-30-2020 Sodium [Moles/Vol] 139 mmol/L 136-146 [facility] Serum or plasma thyroid stim ulating hormone (TSH) measurement by high sensitivity meton 06-30-2020 TSH Qn 1.63 u[iU]/mL 0.45-5.33 [facility] Serum or plasma total biliru bin measurement (mass/volume)on 06-30-2020 Bilirubin [Mass/Vol] 0.6 mg/dL 0.3-1.[address] [facility] Serum or plasma total carbon dioxide measurement (moles/volume)on 06-30-2020 CO2 [Moles/Vol] 28.7 mmol/L 22.0-30.0 [facility] Serum or plasma total choles terol/high density lipoprotein (HDL) cholesterol mass bentley 06-30-2020 Cholesterol.total/Cholestero l in HDL [Mass ratio] 4.8 {ratio} [facility] Serum or plasma urea nitroge n measurement (mass/volume)on 06-30-2020 Urea nitrogen [Mass/Vol] 5 mg/dL 9-23 [facility] TSH DL <= 0.005 mIU/L Qnon 0 06-30-2020 TSH Qn 1.63 m[IU]/L 0.45-5.33 [facility] Triglyceride [Mass/volume] i n Serum or Plasmaon 06-30-2020 Triglyceride [Mass/Vol] 128 mg/dL 35-149 [facility] Comment on above: TRIG ATP III CLASSIF ICATIONTRIG less than 150 mg/dL NormalTRIG 150-199 mg/dL Borderline highTRIG 200-500 mg/dL High TRIG greater than 500 mg/dL Very highStandard traceable to the Center for Disease Conrtrol and Prevention (CDC) test method. Urine appearanceon Appearance (U) Clear Clear [facility] Urine coloron 06-30-2020 Color (U) Yellow Yellow [facility] Urine glucose measurement by automated test strip (mass/volume)on 06-30-2020 Glucose Auto test strip (U) [Mass/Vol] Normal mg/dL Normal [facility] Urine hemoglobin detection b y automated test stripon 06-30-2020 Hemoglobin Auto test strip Ql (U) Negative Ne [facility] Hemoglobin Auto test strip Ql (U) Negative Ne [facility] Urine ketones measurement by automated test strip (mass/volume)on 06-30-2020 Ketones (U) [Mass/Vol] Negative Negative [facility] Urine leukocyte esterase det ection by automated test stripon 06-30-2020 Leukocyte esterase Auto test strip Ql (U) Negative Negative [facility] Leukocyte esterase Auto test strip Ql (U) Negative Negative [facility] Urine nitrite detection by a utomated test stripon 06-30-2020 Nitrite Auto test strip Ql (U) [facility] Nitrite Auto test strip Ql (U) Negative Negat [facility] Urine protein measurement by automated test strip (mass/volume)on 06-30-2020 Protein (U) [Mass/Vol] Negative Negative [facility] Urine total bilirubin detect ion by automated test stripon 06-30-2020 Bilirubin Ql (U) Negative Negative [facility] Urobilinogen Auto test strip (U) [Mass/Vol]on 06-30-2020 Urobilinogen (U) [Mass/Vol] Normal mg/dL Normal [facility] pH Auto test strip (U)on pH (U) 5.5 [pH] 5.0-9.0 [facility] (U) 1.030 [pH] 1.001-1.030 [facility] Amphetamines screenon 2020 Amphetamines Ql (U) Negative Negative [facility] Cannabinoids [Presence] in U rine by Screen methodon 03-31-2020 Cannabinoids Screen Ql (U) Positive Negative [facility] Comment on above: These are unconfirme d results and should not be used for legal purposes. Drug Cut-Off Concentration: AMPH 1000 ng/mL JUNIE 200 ng/mL SABRA 200 ng/mL COCM 300 ng/mL OP 300 ng/mL PCP 25 ng/mL THC 20 ng/mL Urinalysison 03-31-2020 Opiates Ql (U) Negative Negative [facility] Urine barbiturates detection on 03-31-2020 Barbiturates Ql (U) Negative Negative [facility] Urine benzodiazepines detect ionon 03-31-2020 Benzodiazepines Ql (U) Negative Negative [facility] Urine cocaine detectionon Cocaine Ql (U) Negative Negative [facility] Urine phencyclidine detectio n by screening methodon 03-31-2020 Phencyclidine Ql (U) Negative Negative [facility] COVID-19 SOFIAon 03-30-2020 COVID-19 SHELBI Negative Negative [facility] Comment on above: This is a duplicate test result based off of the Shelbi SARS Antigen (MILDRED) test performed within the Microbiology department. Otheron 03-30-2020 SARS Antigen (LFIA) [facility] Vital Signs Date Time Vital Sign Value Performing Clinician Facility 03-13-2023 14:26-0500 Body temperature 97.7 [degF] DO Ward Zuniga Work Phone: [facility] 03-13-2023 14:26-0500 Diastolic blood pressure 68 mm[Hg] DO Ward Zuniga Work Phone: [facility] 03-13-2023 14:26-0500 Heart rate 84 /min DO Ward Zach Work Phone: [facility] 03-13-2023 14:26-0500 Respiratory rate 18 /min DO Ward Zach Work Phone: [facility] 03-13-2023 14:26-0500 Systolic blood pressure 148 mm[Hg] DO Ward Zach Work Phone: [facility] 03-02-2023 13:09-0500 Blood Pressure Location Ketty Orzech [facility] 03-02-2023 13:09-0500 Body temperature 96.98 [degF] Ketty Orzech [facility] 03-02-2023 13:09-0500 Diastolic blood pressure 81 mm[Hg] Ketty Orzech [facility] 03-02-2023 13:09-0500 Heart rate 71 /min Ketty Orzech [facility] 03-02-2023 13:09-0500 Systolic blood pressure 128 mm[Hg] Ketty Orzech [facility] 02-27-2023 14:36-0500 Body height 154.94 cm DO Ward Zach Work Phone: [facility] 02-27-2023 14:36-0500 Body mass index (BMI) [Ratio] 31.1 kg/m2 DO Ward Zach Work Phone: [facility] 02-27-2023 14:36-0500 Body weight 74.84 kg DO Ward Zach Work Phone: [facility] 01-04-2023 13:32-0400 Body height 154.94 cm DO Ward Zach Work Phone: [facility] 01-04-2023 13:32-0400 Body mass index (BMI) [Ratio] 31.1 kg/m2 DO Ward Zuniga Work Phone: [facility] 01-04-2023 13:32-0400 Body weight 74.84 kg DO Ward Zuniga Work Phone: [facility] 01-04-2023 13:19-0400 Diastolic blood pressure 92 mm[Hg] DO Ward Zuniga Work Phone: [facility] 01-04-2023 13:19-0400 Heart rate 82 /min DO Ward Zuniga Work Phone: [facility] 01-04-2023 13:19-0400 Respiratory rate 18 /min DO Ward Zuniga Work Phone: [facility] 01-04-2023 13:19-0400 Systolic blood pressure 160 mm[Hg] DO Ward Zuniga Work Phone: [facility] 01-02-2023 09:45-0400 Body height 154.94 cm Ward Mtz Other [facility] Other 01-02-2023 09:45-0400 Body mass index (BMI) [Ratio] 32.12 kg/m2 Ward Mtz Other [employer] Other 01-02-2023 09:45-0400 Body temperature 97.8 [degF] Ward Mtz Other [employer] Other 01-02-2023 09:45-0400 Body weight 77.11 kg Ward Mtz Other [employer] Other 01-02-2023 09:45-0400 Diastolic blood pressure 62 mm[Hg] Ward Mtz Other [facility] Other 01-02-2023 09:45-0400 SaO2% (BldA) [Mass fraction] 97 % Ward Mtz Other [facility] Other 01-02-2023 09:45-0400 Systolic blood pressure 116 mm[Hg] Ward Mtz Other [facility] Other 12-21-2022 13:01-0400 Body temperature 98.4 [degF] DO Ward Zuniga Work Phone: [facility] 12-17-2022 09:00-0400 Diastolic blood pressure 68 mm[Hg] DO Ward Zuniga Work Phone: [facility] 12-17-2022 09:00-0400 Heart rate 64 /min DO Ward Zuniga Work Phone: [facility] 12-17-2022 09:00-0400 Respiratory rate 20 /min DO Ward Zuniga Work Phone: [facility] 12-17-2022 09:00-0400 SaO2% (BldA) [Mass fraction] 95 % DO Ward Zuniga Work Phone: [facility] 12-17-2022 09:00-0400 Systolic blood pressure 138 mm[Hg] DO Ward Zuniga Work Phone: [facility] 12-17-2022 07:42-0400 Body temperature 98.9 [degF] DO aWrd Zuniga Work Phone: [facility] 12-07-2022 11:11-0400 Body height 154.94 cm DO Ward Zuniga Work Phone: [facility] 12-07-2022 11:11-0400 Body mass index (BMI) [Ratio] 31.1 kg/m2 DO Ward Zuniga Work Phone: [facility] 12-07-2022 11:11-0400 Body weight 74.84 kg DO Ward Zach Work Phone: [facility] 12-07-2022 11:01-0400 Body temperature 97.2 [degF] DO Ward Zach Work Phone: [facility] 12-07-2022 11:01-0400 Diastolic blood pressure 74 mm[Hg] DO Ward Zach Work Phone: [facility] 12-07-2022 11:01-0400 Heart rate 67 /min DO Ward Zach Work Phone: [facility] 12-07-2022 11:01-0400 Respiratory rate 18 /min DO Ward Zach Work Phone: [facility] 12-07-2022 11:01-0400 Systolic blood pressure 146 mm[Hg] DO Ward Zach Work Phone: [facility] 11-04-2022 10:54-0400 Body height 154.94 cm DO Ward Zach Work Phone: [facility] 11-04-2022 10:54-0400 Body temperature 99.2 [degF] DO Ward Zach Work Phone: [facility] 11-04-2022 10:54-0400 Body weight 70.3 kg DO Ward Zach Work Phone: [facility] 11-04-2022 10:54-0400 Diastolic blood pressure 71 mm[Hg] DO Ward Zach Work Phone: [facility] 11-04-2022 10:54-0400 Heart rate 78 /min DO Ward Zach Work Phone: [facility] 11-04-2022 10:54-0400 Respiratory rate 18 /min DO Ward Zach Work Phone: [facility] 11-04-2022 10:54-0400 SaO2% (BldA) [Mass fraction] 99 % DO Ward Zuniga Work Phone: [facility] 11-04-2022 10:54-0400 Systolic blood pressure 159 mm[Hg] DO Ward Zuniga Work Phone: [facility] 10-26-2022 09:42-0400 Body height 154.94 cm DO Ward Zuniga Work Phone: [facility] 10-26-2022 09:42-0400 Body mass index (BMI) [Ratio] 31.1 kg/m2 DO Ward Zuniga Work Phone: [facility] 10-26-2022 09:42-0400 Body weight 74.84 kg DO Ward Zuniga Work Phone: [facility] 10-26-2022 09:28-0400 Body temperature 98.4 [degF] DO Ward Zuniga Work Phone: [facility] 10-26-2022 09:28-0400 Diastolic blood pressure 88 mm[Hg] DO Ward Zuniga Work Phone: [facility] 10-26-2022 09:28-0400 Heart rate 93 /min DO Ward Zuniga Work Phone: [facility] 10-26-2022 09:28-0400 Respiratory rate 24 /min DO Ward Zuniga Work Phone: [facility] 10-26-2022 09:28-0400 Systolic blood pressure 132 mm[Hg] DO Ward Zuniga Work Phone: [facility] 10-24-2022 09:45-0400 Body height 154.94 cm Ward Mtz Other [employer] Other 10-24-2022 09:45-0400 Body mass index (BMI) [Ratio] 31.74 kg/m2 Ward Mtz Other [employer] Other 10-24-2022 09:45-0400 Body temperature 97.4 [degF] Ward Carmonar Other [employer] Other 10-24-2022 09:45-0400 Body weight 76.2 kg Ward Mtz Other [employer] Other 10-24-2022 09:45-0400 Diastolic blood pressure 70 mm[Hg] Ward Carmonar Other [employer] Other 10-24-2022 09:45-0400 SaO2% (BldA) [Mass fraction] 97 % Ward Mtz Other [employer] Other 10-24-2022 09:45-0400 Systolic blood pressure 118 mm[Hg] Ward Carmonar Other [employer] Other 09-27-2022 08:26-0400 Diastolic blood pressure 56 mm[Hg] Ronobir RANDY [facility] 09-27-2022 08:26-0400 Heart rate 55 /min Ronobir RANDY [facility] 09-27-2022 08:26-0400 Respiratory rate 18 /min Ronobir RANDY [facility] 09-27-2022 08:26-0400 SaO2% (BldA) [Mass fraction] 99 % Ronobir RANDY [facility] 09-27-2022 08:26-0400 Systolic blood pressure 110 mm[Hg] Ronobir RANDY [facility] 09-27-2022 05:58-0400 Diastolic blood pressure 59 mm[Hg] Ronobir RANDY [facility] 09-27-2022 05:58-0400 Heart rate 64 /min Ronobir RANDY [facility] 09-27-2022 05:58-0400 Respiratory rate 18 /min Ronobir RANDY [facility] 09-27-2022 05:58-0400 SaO2% (BldA) [Mass fraction] 95 % Ronobir RANDY [facility] 09-27-2022 05:58-0400 Systolic blood pressure 108 mm[Hg] Ronobir RANDY [facility] 09-27-2022 04:58-0400 Diastolic blood pressure 61 mm[Hg] Ronobir RANDY [facility] 09-27-2022 04:58-0400 Heart rate 66 /min Ronobir RANDY [facility] 09-27-2022 04:58-0400 Respiratory rate 18 /min Ronobir RANDY [facility] 09-27-2022 04:58-0400 SaO2% (BldA) [Mass fraction] 97 % Ronobir RANDY [facility] 09-27-2022 04:58-0400 Systolic blood pressure 111 mm[Hg] Ronobir RANDY [facility] 09-26-2022 23:15-0400 Body temperature 98.96 [degF] Ronobir RANDY [facility] 07-26-2022 14:31-0400 Heart rate 76 /min Talon Mcbride [facility] 07-26-2022 14:31-0400 SaO2% (BldA) [Mass fraction] 98 % Talon Gastonsh [facility] 07-26-2022 14:30-0400 Diastolic blood pressure 84 mm[Hg] Talon Gastonsh [facility] 07-26-2022 14:30-0400 Mean blood pressure 111 mm[Hg] Talon Gastonsh [facility] 07-26-2022 14:30-0400 Systolic blood pressure 166 mm[Hg] Tlaon Gastonsh [facility] 07-26-2022 14:30-0400 Respiratory rate 16 /min Talon Gastonsh [facility] 07-26-2022 12:53-0400 Heart rate 73 /min Talon Gastonsh [facility] 07-26-2022 12:53-0400 SaO2% (BldA) [Mass fraction] 98 % Talon Gastonsh [facility] 07-26-2022 12:52-0400 Diastolic blood pressure 75 mm[Hg] Talon Gastonsh [facility] 07-26-2022 12:52-0400 Mean blood pressure 99 mm[Hg] Talon Gastonsh [facility] 07-26-2022 12:52-0400 Systolic blood pressure 148 mm[Hg] Talon Gastonsh [facility] 07-26-2022 12:52-0400 SaO2% (BldA) [Mass fraction] 95 % Talon Gastonsh [facility] 07-26-2022 12:43-0400 Body temperature 97.88 [degF] Talon Gastonsh [facility] 05-02-2023 12:43-0400 Diastolic blood pressure 63 mm[Hg] Talon Mcbride [facility] 07-26-2022 12:43-0400 Heart rate 63 /min Talon Mcbride [facility] 07-26-2022 12:43-0400 Mean blood pressure 86 mm[Hg] Talon Mcbride [facility] 07-26-2022 12:43-0400 Respiratory rate 15 /min Talon Mcbride [facility] 07-26-2022 12:43-0400 Systolic blood pressure 131 mm[Hg] Talon Mcbride [facility] 07-26-2022 12:30-0400 Mean blood pressure 93 mm[Hg] Talon Mcbride [facility] 07-26-2022 12:30-0400 Respiratory rate 16 /min Talon Mcbride [facility] 07-26-2022 12:15-0400 Mean blood pressure 112 mm[Hg] Talon Mcbride [facility] 07-26-2022 12:15-0400 Respiratory rate 15 /min Talon Mcbride [facility] 07-26-2022 11:46-0400 Body temperature 97.34 [degF] Talon Mcbride [facility] 07-26-2022 11:40-0400 Respiratory rate 21 /min Talon Mcbride [facility] 07-26-2022 11:35-0400 Respiratory rate 14 /min Talon Mcbride [facility] 07-26-2022 06:00-0400 Body temperature 98.06 [degF] Talon Mcbride [facility] 07-26-2022 06:00-0400 Mean blood pressure 101 mm[Hg] Talon Mcbride [facility] 07-26-2022 06:00-0400 Heart rate 68 /min Talon Gastonsh [facility] 07-26-2022 05:58-0400 Blood Pressure Location Talon Gastonsh [facility] 07-18-2022 13:31-0400 Diastolic blood pressure 72 mm[Hg] Talon Gastonsh [facility] 07-18-2022 13:31-0400 Heart rate 61 /min Talon Gastonsh [facility] 07-18-2022 13:31-0400 Mean blood pressure 89 mm[Hg] Talon Gastonsh [facility] 07-18-2022 13:31-0400 Systolic blood pressure 123 mm[Hg] Talon Gastonsh [facility] 07-18-2022 13:31-0400 Heart rate 64 /min Talon Gastonsh [facility] 07-18-2022 13:31-0400 SaO2% (BldA) [Mass fraction] 99 % Talon Gastonsh [facility] 07-18-2022 13:31-0400 Respiratory rate 17 /min Talon Gastonsh [facility] 07-18-2022 13:30-0400 Diastolic blood pressure 69 mm[Hg] Talon Gastonsh [facility] 07-18-2022 13:30-0400 Mean blood pressure 86 mm[Hg] Talon Gastonsh [facility] 07-18-2022 13:30-0400 Systolic blood pressure 121 mm[Hg] Talon Gastonsh [facility] 07-13-2022 14:45-0400 Body height 154.9 cm Trauma [facility] 07-13-2022 14:45-0400 Body mass index (BMI) [Ratio] 31.01 kg/m2 Trauma Resident [facility] 07-13-2022 14:45-0400 Body temperature 97.3 [degF] Trauma Resident [facility] 07-13-2022 14:45-0400 Body weight 74.44 kg Trauma Resident [facility] 07-13-2022 14:45-0400 Diastolic blood pressure 69 mm[Hg] Trauma Resident [facility] 07-13-2022 14:45-0400 Heart rate 69 /min Trauma Resident [facility] 07-13-2022 14:45-0400 Respiratory rate 16 /min Trauma Resident [facility] 07-13-2022 14:45-0400 SaO2% (BldA) [Mass fraction] 100 % Trauma Resident [facility] 07-13-2022 14:45-0400 Systolic blood pressure 159 mm[Hg] Trauma Resident [facility] 07-05-2022 14:45-0400 Diastolic blood pressure 54 mm[Hg] [address] 07-05-2022 14:45-0400 Heart rate 75 /min [address] 07-05-2022 14:45-0400 Respiratory rate 16 /min [address] 07-05-2022 14:45-0400 SaO2% (BldA) [Mass fraction] 97 % [address] 07-05-2022 14:45-0400 Systolic blood pressure 125 mm[Hg] [address] 07-05-2022 13:00-0400 Body height 154.[address] 07-05-2022 13:00-0400 Body mass index (BMI) [Ratio] 31.55 kg/m2 [address] 07-05-2022 13:00-0400 Body temperature 98.6 [degF] [address] 07-05-2022 13:00-0400 Body weight 75.[address] 06-30-2022 08:58-0400 Body height 154.94 cm Ward Zuniga Work Phone: [facility] 600 DO Work Phone: 06-30-2022 08:58-0400 Body mass index (BMI) [Ratio] 31.08 kg/m2 Ward Zuniga Work Phone: [facility] [facility] 600 DO Work Phone: 06-30-2022 08:58-0400 Body surface area Derived from formula 1.74 m2 Ward Zuniga Work Phone: [facility] 600 DO Work Phone: 06-30-2022 08:58-0400 Body weight 74.62 kg Ward Zuniga Work Phone: [facility] 600 DO Work Phone: 06-30-2022 08:58-0400 Diastolic blood pressure 78 mm[Hg] Ward Zuniga Work Phone: [facility] 600 DO Work Phone: 06-30-2022 08:58-0400 Diastolic blood pressure 80 mm[Hg] Ward Zuniga Work Phone: [facility] 600 DO Work Phone: 06-30-2022 08:58-0400 Heart rate 77 /min Ward Zuniga Work Phone: [facility] 600 DO Work Phone: 06-30-2022 08:58-0400 Systolic blood pressure 128 mm[Hg] Ward Zuniga Work Phone: [facility] 600 DO Work Phone: 06-30-2022 08:58-0400 Systolic blood pressure 132 mm[Hg] Ward Zuniga Work Phone: [facility] 600 DO Work Phone: 06-22-2022 19:00-0400 Body height 154.94 cm DO Ward Zuniga Work Phone: [facility] 06-22-2022 19:00-0400 Body temperature 97.7 [degF] DO Ward Zuniga Work Phone: [facility] 06-22-2022 19:00-0400 Body weight 73 kg DO Ward Zuniga Work Phone: [facility] 06-22-2022 19:00-0400 Diastolic blood pressure 76 mm[Hg] DO Wrad Zuniga Work Phone: [facility] 06-22-2022 19:00-0400 Heart rate 94 /min DO Ward Zuniga Work Phone: [facility] 06-22-2022 19:00-0400 Respiratory rate 18 /min DO Ward Zuniga Work Phone: [facility] 06-22-2022 19:00-0400 SaO2% (BldA) [Mass fraction] 98 % DO Ward Zuniga Work Phone: [facility] 06-22-2022 19:00-0400 Systolic blood pressure 139 mm[Hg] DO Ward Zuniga Work Phone: [facility] 06-15-2022 13:10-0400 Body height 154.9 cm Trauma Resident [facility] 06-15-2022 13:10-0400 Body mass index (BMI) [Ratio] 31.57 kg/m2 Trauma Resident [facility] 06-15-2022 13:10-0400 Body weight 75.8 kg Trauma Resident [facility] 06-15-2022 13:10-0400 Diastolic blood pressure 68 mm[Hg] Trauma Resident [facility] 06-15-2022 13:10-0400 Heart rate 92 /min Trauma Resident [facility] 06-15-2022 13:10-0400 Respiratory rate 19 /min Trauma Resident [facility] 06-15-2022 13:10-0400 SaO2% (BldA) [Mass fraction] 97 % Trauma Resident [facility] 06-15-2022 13:10-0400 Systolic blood pressure 118 mm[Hg] Trauma Resident [facility] 05-16-2022 00:50-0500 Body temperature 98.3 [degF] DO Ward Zuniga Work Phone: [facility] 05-16-2022 00:50-0500 Diastolic blood pressure 79 mm[Hg] DO Ward Zuniga Work Phone: [facility] 05-16-2022 00:50-0500 Heart rate 82 /min DO Ward Zuniga Work Phone: [facility] 05-16-2022 00:50-0500 Inhaled oxygen flow rate 3 L/min DO Ward Zuniga Work Phone: [facility] 05-16-2022 00:50-0500 Respiratory rate 20 /min DO Ward Zuniga Work Phone: [facility] 05-16-2022 00:50-0500 SaO2% (BldA) [Mass fraction] 96 % DO Ward Zuniga Work Phone: [facility] 05-16-2022 00:50-0500 Systolic blood pressure 147 mm[Hg] DO Ward Zuniga Work Phone: [facility] 05-15-2022 17:14-0500 Body height 154.94 cm DO Ward Zuniga Work Phone: [facility] 05-15-2022 17:14-0500 Body weight 78.1 kg DO Ward Zuniga Work Phone: [facility] 12-07-2021 09:30-0400 Body height 154.94 cm Balwinder Parker Other [facility] [place] Other 12-07-2021 09:30-0400 Body mass index (BMI) [Ratio] 33.06 kg/m2 Balwinder Parker Other [facility] Other 12-07-2021 09:30-0400 Body weight 79.38 kg Balwinder Parker Other [facility] [place] Other 12-07-2021 09:30-0400 Diastolic blood pressure 63 mm[Hg] Balwinder Parker Other [facility] Other 12-07-2021 09:30-0400 Systolic blood pressure 113 mm[Hg] Balwinder Parker Other [facility] Other 12-07-2021 09:01-0400 Body weight 0 kg DO Ward Zuniga Work Phone: [facility] 11-30-2021 13:23-0400 Blood Pressure Location MARYCARMEN ELIJAH [facility] 11-30-2021 13:23-0400 Diastolic blood pressure 73 mm[Hg] MARYCARMEN ELIJAH [facility] 11-30-2021 13:23-0400 Heart rate 69 /min MARYCARMEN ELIJAH [facility] 11-30-2021 13:23-0400 Systolic blood pressure 132 mm[Hg] MARYCARMEN ELIJAH [facility] 07-29-2021 11:08-0400 Blood Pressure Location MARYCARMEN ELIJAH [facility] 07-29-2021 11:08-0400 Diastolic blood pressure 84 mm[Hg] MARYCARMEN ELIJAH [facility] 07-29-2021 11:08-0400 Heart rate 77 /min MARYCARMEN ELIJAH [facility] 07-29-2021 11:08-0400 Systolic blood pressure 132 mm[Hg] MARYCARMEN NAVA [facility] 07-01-2021 14:45-0400 Body height 154.94 cm Balwinder Parker Other [employer] Other 07-01-2021 14:45-0400 Body mass index (BMI) [Ratio] 36.09 kg/m2 Balwinder Parker Other [employer] Other 07-01-2021 14:45-0400 Body weight 86.64 kg Balwinder Parker Other [employer] Other 02-23-2021 11:45-0500 Body height 154.94 cm Ward Mtz Other [employer] Other 02-23-2021 11:45-0500 Body mass index (BMI) [Ratio] 34.95 kg/m2 Ward Mtz Other [employer] Other 02-23-2021 11:45-0500 Body temperature 96.7 [degF] Ward Mtz Other [employer] Other 02-23-2021 11:45-0500 Body weight 83.92 kg Ward Mtz Other [employer] Other 02-23-2021 11:45-0500 Diastolic blood pressure 80 mm[Hg] Ward Mtz Other [employer] Other 02-23-2021 11:45-0500 SaO2% (BldA) [Mass fraction] 98 % Ward Smith Other [employer] Other 02-23-2021 11:45-0500 Systolic blood pressure 138 mm[Hg] Ward Romanalbinsantiago Other [employer] Other 12-29-2020 11:40-0400 Body height 154.94 cm Michael Keanu Other [employer] Other 12-29-2020 11:40-0400 Body mass index (BMI) [Ratio] 34.95 kg/m2 Michael Colunga Other [employer] Other 12-29-2020 11:40-0400 Body weight 83.92 kg Michael Colunga Other [employer] Other 12-29-2020 11:40-0400 Diastolic blood pressure 68 mm[Hg] Michael Colunga Other [employer] Other 12-29-2020 11:40-0400 Systolic blood pressure 116 mm[Hg] Michael Keanu Other [employer] Other 03-31-2020 08:55-0500 BP Diastolic 80 mm[Hg] [facility] 03-31-2020 08:55-0500 BP Systolic 145 mm[Hg] [facility] 03-31-2020 08:55-0500 Pulse (Heart Rate) 65 /min [facility] 03-31-2020 08:55-0500 Pulse Oximetry 99 % [facility] 03-31-2020 08:55-0500 Respiratory Rate 16 /min [facility] 03-31-2020 07:10-0500 BMI (Body Mass Index) 33.6 kg/m2 Ward [facility] 03-31-2020 07:050 Body weight 82.1 kg [facility] 03-31-2020 07:050 Height 156.21 cm [facility] Encounters Encounter Date Encounter Type Care Provider Facility Start: 03-14-2024 ambulatory MARYCARMEN Lay ty:ROSS Valadez Start: 03-13-2023 End: 03-13-2023 ambulatory Adelia Saldana Facility:[facility] Start: 03-13-2023 End: 03-13-2023 ambulatory DO Ward Zuniga Work Phone: [facility] Work Phone: Start: 03-13-2023 End: 03-13-2023 Discharged Recurring DO Ward Zuniga Work Phone: [facility] [place] Work Phone: Start: 03-02-2023 End: 03-03-2023 ambulatory Ketty X Orzech Facility:[facility] Start: 03-02-2023 End: 03-02-2023 Patient encounter procedure Ketty X Orzech [facility] Start: 03-01-2023 End: 03-02-2023 ambulatory CONNIE LEARY Not Available Start: 02-22-2023 End: 02-23-2023 ambulatory CONNIE LEARY Not Available Start: 02-07-2023 End: 02-08-2023 ambulatory WARD ZUNIGA Not Available Start: 01-04-2023 End: 01-04-2023 ambulatory Ward Zuniga Facility:[facility] Start: 01-04-2023 End: 01-04-2023 Discharged Recurring DO Ward Zuniga Work Phone: [facility] [place] Work Phone: Start: 01-02-2023 End: 01-02-2023 ambulatory Ward Mtz Other [facility] Other Start: 01-02-2023 Office outpatient visit 25 minutes Ward Mtz [facility] Vascular Surgery Start: 12-17-2022 End: 12-17-2022 Emergency department patient visit Pravin Granado Facility:[facility] Start: 12-17-2022 End: 12-17-2022 Emergency department patient visit DO Ward Zuniga Work Phone: [facility]-Emergency Room Work Phone: Start: 12-07-2022 Registered Recurring DO Lyndsey Zuniga Work Phone: [facility] [place] Work Phone: Start: 12-03-2022 Letter encounter Lalo lancaster Start: 11-04-2022 End: 11-04-2022 ambulatory Ward Zuniga Facility:[facility] Start: 11-04-2022 End: 11-04-2022 Emergency department patient visit Ward Zuniga Facility:[facility] Start: 11-04-2022 End: 11-04-2022 ambulatory DO Ward Zuniga Work Phone: [facility] Work Phone: Start: 11-04-2022 End: 11-04-2022 Patient encounter procedure DO Ward Zuniga Work Phone: [facility]trasound [facility] [place] Work Phone: Start: 11-04-2022 End: 11-04-2022 Emergency department patient visit DO Ward Zuniga Work Phone: [facility]Emergency [facility] Work Phone: Start: 10-26-2022 Registered Recurring DO Lyndsey Zuniga Work Phone: [facility] [place] Work Phone: Start: 10-24-2022 End: 10-24-2022 ambulatory Ward Mtz Other [place] [facility] Other Start: 10-24-2022 Office outpatient visit 25 minutes Ward Mtz [facility] Vascular Surgery Start: 09-27-2022 End: 09-27-2022 ambulatory Maliha PADILLA [place] Start: 09-26-2022 End: 09-27-2022 Emergency department patient visit Maliha PADILLA [facility] Start: 09-06-2022 End: 09-06-2022 ambulatory Ward Zuniga Facility:[facility] Start: 09-06-2022 End: 09-06-2022 Patient encounter procedure DO Ward Zuniga Work Phone: [facility] [place] Work Phone: Start: 08-30-2022 Letter encounter Lalo lancaster Start: 08-05-2022 End: 08-06-2022 ambulatory Talon Mcbride [place] Start: 08-05-2022 End: 08-05-2022 Patient encounter procedure Zulay Junior [facility] Start: 07-26-2022 End: 07-26-2022 ambulatory Talon Mcbride [place] Start: 07-26-2022 End: 07-26-2022 Admission to same day surgery center Talon Mcbride [facility] Start: 07-18-2022 End: 07-19-[address] Ward Zuniga Facility:[facility] Start: 07-18-2022 End: 07-18-2022 Patient encounter procedure Talon Mcbride [facility] Start: 07-13-2022 End: 07-13-2022 ambulatory NIKITA HEIN Facility:[facility] Start: 07-13-2022 End: 07-13-2022 Office outpatient visit 10 minutes Trauma Surgery Resident [facility] Trauma Surgery Comment on above: Acute cholecystitis (Primary Dx); Body mass index (BMI) 31.0-31.9, adult Start: 07-13-2022 Admission to [facility] Nikita Hein MD Work Phone: [facility] Trauma Surgery Start: 07-07-2022 Orders Only Jai Aguilera RN [facility] Tra[facility] Start: 07-06-2022 ambulatory Kendra Harrison RN [facility] Comment on above: Advice/health educat ion Start: 07-06-2022 Telephone encounter Jai Aguilera RN [facility] Trauma Surgery Start: 07-05-2022 End: 07-06-2022 ambulatory NIKITA HEIN Facility:[facility] Start: 07-05-2022 Telephone encounter Taniya cat Work Phone: [facility] Trauma Surgery Start: 07-05-2022 End: 07-05-2022 Subsequent hospital visit by physician Mh Ip/Op Angio 1 [facility] Radiology Comment on above: Acute cholecystitis Start: 06-30-2022 Office consultation new/estab patient 60 min Ward Zuniga Work Phone: [facility] 600 DO Work Phone: Start: 06-30-[address] Natan Marinelli Facility: Start: 06-27-2022 Telephone encounter Taniya cat Work Phone: [facility] Trauma Surgery Start: 06-22-2022 End: 06-22-2022 Emergency department patient visit Keith Griffith Facility:[facility] Start: 06-22-2022 End: 06-22-2022 Emergency department patient visit DO Ward Zuniga Work Phone: [facility]-Emergency Room Work Phone: Start: 06-20-2022 Orders Only Jai Aguilera RN [facility] Trauma Surgery Start: 06-17-2022 Telephone encounter Laura Carrasquillomei [facility] Trauma Surgery Start: 06-16-2022 Telephone encounter Taniya Mathews deannvanessa Work Phone: [facility] Trauma Surgery Start: 06-15-2022 End: 06-18-2022 ambulatory UNKNOWN PROVIDER Facility:[facility] Start: 06-15-2022 End: 06-18-2022 Office outpatient visit 15 minutes Trauma Surgery Resident [facility] Trauma Surgery Comment on above: Acute cholecystitis (Primary Dx); Body mass index (BMI) 31.0-31.9, adult Start: 05-27-2022 ambulatory Maegan Morris RN [facility] Comment on above: Advice/health educat ion Start: 05-23-2022 Evaluation and management of inpatient JOCELYNE CONLEY Facility:[facility] Start: 05-19-2022 Evaluation and management of inpatient CONNIE COTE Facility:[facility] Start: 05-18-2022 Patient encounter status Maegan Morris RN [facility] Start: 05-17-2022 Evaluation and management of inpatient CONNIE CRONINY Facility:[facility] Start: 05-16-2022 Evaluation and management of inpatient CONNIE CRONINY Facility:[facility] Start: 05-16-2022 End: 05-16-2022 ambulatory UNKNOWN PROVIDER Facility:[facility] Start: 05-16-2022 End: 05-25-2022 Evaluation and management of inpatient WARD GRAVES Facility:[facility] Start: 05-16-2022 Emergency department patient visit CONNIE COTE Facility:[facility] Start: 05-15-2022 End: 05-16-2022 Emergency department patient visit Keith Griffith Facility:[facility] Start: 05-15-2022 End: 05-16-2022 Emergency department patient visit DO Ward Zuniga Work Phone: [facility]-Emergency Room Work Phone: Start: 05-15-2022 End: 05-16-2022 ambulatory UNKNOWN PROVIDER Facility:[facility] Start: 04-06-2022 End: 04-06-2022 ambulatory Ward Zuniga Facility:[facility] Start: 04-06-2022 End: 04-06-2022 ambulatory DO Ward Zuniga Work Phone: [facility] Work Phone: Start: 04-06-2022 End: 04-06-2022 Patient encounter procedure DO Ward Zuniga Work Phone: [facility]-XRay [address] Work Phone: Start: 01-03-2022 End: 01-03-2022 ambulatory DO Ward Zuniga Work Phone: [facility] Work Phone: Start: 01-03-2022 End: 01-03-2022 Patient encounter procedure DO Ward Zuniga Work Phone: [facility]-Lab [facility] [place] Start: 12-16-2021 End: 12-16-2021 Patient encounter procedure DO Ward Zuniga Work Phone: [facility]-Digestive Health Start: 12-15-2021 End: 12-15-2021 Patient encounter procedure DO Ward Zuniga Work Phone: [facility]-Pre-Surgical Testing Start: 12-07-2021 End: 12-07-2021 ambulatory Balwinder Parker Other [employer] Other Start: 12-07-2021 Patient encounter procedure Balwinder ARMENDARIZ [facility] Start: 11-30-2021 End: 11-30-2021 Patient encounter procedure MARYCARMEN NAVA [facility] Start: 09-08-2021 End: 09-08-2021 ambulatory Balwinder Parker Other [employer] Other Start: 09-08-2021 Telephone encounter Balwinder Grullon [facility] Start: 07-29-2021 End: 07-29-2021 Patient encounter procedure MARYCARMEN NAVA [facility] Start: 07-01-2021 End: 07-01-2021 ambulatory Balwinder Parker Other [place] [facility] Other Start: 07-01-2021 Patient encounter procedure Balwinder Parker [facility] Gastroenterology Start: 02-23-2021 End: 02-23-2021 ambulatory Ward Mtz Other [place] [facility] Other Start: 02-23-2021 Office outpatient visit 15 minutes Ward Mtz [facility] Vascular Surgery Start: 01-22-2021 (Sclerother) Sclerotherapy Ward Mtz [facility] Vascular Surgery Start: 01-22-2021 End: 01-22-2021 ambulatory Ward Mtz Other [place] [facility] Other Start: 01-21-2021 Telephone encounter Michael Colunga [facility] Vascular Surgery Start: 12-29-2020 Office outpatient visit 25 minutes Michael Colunga [facility] Neurosurgery Start: 09-07-2020 End: 09-07-2020 Patient encounter procedure Ward Zuniga Work Phone: -Ultrasound [facility] Vascular Start: 08-04-2020 End: 08-04-2020 Patient encounter procedure Ward Zuniga Work Phone: -Ultrasound [facility] Start: 07-13-2020 End: 07-13-2020 Patient encounter procedure Ward Zuniga Work Phone: -[facility] Surgery Start: 06-30-2020 End: 06-30-2020 Patient encounter procedure Ward Zuniga -[facility] Start: 03-31-2020 End: 03-31-2020 Admission to day surgery Ward Zuniga -[facility] Start: 03-30-2020 End: 03-30-2020 Patient encounter procedure Ward Zuniga -Pre-Surgical Testing Procedures Date Procedure Procedure Detail Performing Clinician Start: 11-04-2022 Duplex scan of lower limb veins DO Ward Zuniga Work Phone: Start: 11-04-2022 CT cervical spine wi thout contrast DO Ward Zuniga Work Phone: Start: 11-04-2022 CT of head without contrast DO Ward Zuniga Work Phone: Start: 11-04-2022 X-ray of left knee DO Tia Zuniga Work Phone: Start: 07-26-2022 Cholecystectomy Talon Mcbride Start: 07-05-2022 Njx cholangio prq w/ img gid rs&i existing access Nikita Hein MD Work Phone: Start: 06-15-2022 Blood count complete automated Nikita Hein MD Work Phone: Start: 05-15-2022 Plain chest X-ray DO Abdullahi Zuniga Work Phone: Start: 05-15-2022 CT angiography of thorax DO Ward Zuniga Work Phone: Start: 05-15-2022 Computed tomography of abdomen and pelvis with contrast DO Ward Zuniga Work Phone: Start: 05-15-2022 Plain chest X-ray DO Abdullahi Zuniga Work Phone: Start: 05-15-2022 Blood culture for ba cteria, including anaerobic screen DO Ward Zuniga Work Phone: Start: 04-06-2022 Plain X-ray of left wrist DO Ward Zuniga Work Phone: Start: 04-06-2022 X-ray of cervical spine DO Ward Zuniga Work Phone: Start: 12-16-2021 Esophageal manometry DO Ward Zuniga Work Phone: Start: 02-15-2021 Injection of sacroil iac joint using fluoroscopic guidance MARYCARMEN NAVA Comment on above: 95% relief Start: 10-16-2020 Venous structure (body structure) MARYCARMEN NAVA Comment on above: right leg Start: 08-04-2020 Duplex scan of lower limb veins Ward Zuniga Work Phone: Start: 03-31-2020 Screening colonoscopy Tia peggy Zuniga Start: 03-30-2020 SARS Antigen (LFIA) Meet Zuniga Start: 06-29-2017 Release of trigger finger MARYCARMEN NAVA Comment on above: FINGER TRIGGER RELEA SE Start: 05-30-2016 Total knee replacement MARYCARMEN NAVA Comment on above: LEFT Start: 05-02-2016 Right ring trigger finger release MARYCARMEN NAVA Arthroplasty of knee Ward Zuniga Work Phone: Colonoscopy MARYCARMEN NAVA Drainage biliary cat heter (physical object) Talon Mcbride H/O: hysterectomy MARYCARMEN YUSUF Hysterectomy Ward Hernandez sarah Work Phone: Replacement of right knee joint MARYCARMEN NAVA Screening for malign ant neoplasm of colon Michael Keanu Other Total colonoscopy Wardjaquelin Zuniga Work Phone: Comment on above: 2020; Plan of Treatment Date Care Activity Detail Author Start: 01-03-2027 Cholesterol [Mass/volume] in Serum or Plasma Cholesterol [facility] Start: 12-25-2022 Influenza vaccination Influenza Vaccine (#1) [facility] Start: 11-04-2022 Duplex scan of lower limb veins US venous duplex LE LT [facility] Start: 11-04-2022 US Lower extremity vein - left [facility] Start: 10-06-2022 FUV, Provider: Natan Marinelli, Status: Pen, Time: 1:30 PM FUV, Provider: Natan Marinelli, Status: Pen, Time: 1:30 PM -[facility] 600 DO Work Phone: Start: 08-25-2022 End: 08-25-2022 Patient encounter procedure 08/25/2022 Office Visit Cardiology Ericka Hale MD [address] [place] [address] [facility] Cardiology Start: 07-13-2022 End: 07-13-2022 Patient encounter procedure 07/13/2022 Office Visit Trauma Surgery [facility] Trauma Surgery Start: 07-05-2022 End: 07-05-2022 Patient encounter procedure 07/05/2022 Appointment Radiology [facility] Radiology Start: 06-15-2022 End: 06-16-2023 RF Biliary ducts Views W contrast via existing catheter XA CHOLANGIOGRAM EXISTING ACCESS (RHETT) Imaging Routine Acute cholecystitis Expected: 06/15/2022, Expires: 06/16/2023 [facility] Work Phone: Comment on above: Expected: 06/15/2022 , Expires: 06/16/2023 Start: 05-15-2022 Plain chest X-ray XR chest 1V portab [facility] Start: 05-15-2022 XR Chest Single view [facility] Start: 05-15-2022 CT angiography of thorax CT angio chest PE protocol [facility] Start: 05-15-2022 CT Chest [facility] Start: 05-15-2022 Bacteria identified in Blood by Culture [facility] Start: 03-02-2022 Screening for malignant neoplasm of breast Mammography [facility] Start: 01-17-2022 COVID-19 Vaccine (2 - Pfizer series) COVID-19 Vaccine (2 - Pfizer series) [facility] Start: 12-25-2021 Annual Wellness Visi t (G0439) Annual Wellness Visit (G0439) [facility] Start: 12-16-2021 [facility] Start: 09-07-2020 Duplex scan of lower limb veins US venous duplex [facility] Start: 2018 Screening for osteoporosis Bone Densitometry [facility] Start: 2013 RSV vaccine (optiona l 60+ years) RSV vaccine (optional 60+ years) [facility] Start: 08-25-2003 Shingles (RZV) Vacci ne (1 of 2) Shingles (RZV) Vaccine (1 of 2) [facility] Start: 1998 Screening for malignant neoplasm of colon [facility] Start: 08-25-1971 Hepatitis C screening Hepatitis C An tibody [facility] Start: 08-25-1971 Tetanus + diphtheria + acellular pertussis vaccine (product) Tdap Booster [facility] Start: 1953 Screening for malignant neoplasm of colon Colonoscopy [facility] CHOLECYSTECTOMY, LAPAROSCOPIC CHOLECYSTECTOMY, LAPAROSCOPIC Routine scheduled Acute cholecystitis [facility] CHOLECYSTECTOMY, LAPAROSCOPIC CHOLECYSTECTOMY, LAPAROSCOPIC Routine scheduled Acute cholecystitis [facility] End: 07-13-2022 Ecg routine ecg w/least 12 lds trcg only w/o i&r EKG 12 LEAD - PERFORM MUSE Routine Once for 1 Occurrences starting 07/13/2022 until 07/13/2022 [facility] Work Phone: Comment on above: Once for 1 Occurrenc es starting 07/13/2022 until 07/13/[address] [facility] Work Phone: Patient referral [facility] Work Phone: Immunizations Immunization Date Immunization Notes Care Provider [facility] 01-02-2023 influenza virus vaccine, unspecified formulation Ketty Alicia [facility] 12-27-2021 Influenza, injectabl e, high-dose seasonal, quadrivalent, 0.7 mL, preservative free ([id number]=[id number]) Maegan Morris RN [facility] 12-27-2021 SARS-CoV-2 (COVID-19 ) [id number] Ketty Alicia [facility] 12-27-2021 influenza virus vaccine, unspecified formulation [facility] 03-25-2021 COVID-19 mRNA, Comirnaty (Pfizer) DO Ward Zuniga Work Phone: [facility] 01-25-2021 SARS-CoV-2 (COVID-19 ) Ad26 vaccine, recombinant MARYCARMEN NAVA [facility] 01-07-2021 influenza virus vaccine, unspecified formulation [employer] [facility] 01-07-2021 influenza, high dose seasonal, preservative-free Maegan Morris RN [facility] 01-07-2021 pneumococcal polysaccharide vaccine, 23 valent Maegan Morris RN [facility] 07-10-2020 COVID-19 mRNA, Comirnaty (Pfizer) DO Ward Zuniga Work Phone: [facility] 06-25-2020 SARS-CoV-2 (COVID-19 ) Ad26 vaccine, recombinant MARYCARMEN NAVA [facility] 06-18-2020 COVID-19 mRNA, Comirnaty (Pfizer) DO Ward Zuniga Work Phone: [facility] 05-25-2020 SARS-CoV-2 (COVID-19 ) Ad26 vaccine, recombinant MARYCARMEN NAVA [facility] 12-09-2019 influenza virus vaccine, unspecified formulation [employer] [facility] 12-09-2019 pneumococcal conjuga te vaccine, 13 valent Maegan Morris RN [facility] 12-09-2019 Seasonal trivalent influenza vaccine, adjuvanted, preservative free Maegan Morris RN [facility] 01-30-2019 KENALOG - 10 mg Michael Colunga Other [employer] Other 12-27-2018 influenza virus vaccine, unspecified formulation Ketty Orzech [facility] 12-27-2018 Seasonal trivalent influenza vaccine, adjuvanted, preservative free Maegan Morris RN [facility] 01-25-2018 influenza virus vaccine, unspecified formulation Ketty Orzech [facility] 01-25-2018 Influenza, injectabl e, Madin Ghislaine Canine Kidney, quadrivalent with preservative Maegan Morris RN [facility] 12-27-2016 influenza virus vaccine, unspecified formulation Ketty Orzech [facility] 12-27-2016 influenza, injectabl e, quadrivalent, preservative free Maegan Morris RN [facility] 07-07-2016 Kenalog -40 mg Michael Colunga Other [employer] Other 01-25-2016 Kenalog -40 mg Michael Colunga Other [employer] Other 11-26-2015 influenza virus vaccine, unspecified formulation Ketty Orzech [facility] 10-19-2015 Kenalog -40 mg Michael Colunga Other [employer] Other 01-22-2013 influenza virus vaccine, unspecified formulation Ketty Orzech [facility] 01-22-2013 influenza, seasonal, injectable Maegan Morris RN [facility] 03-13-2009 novel [id number], preservative-free, injectable Maegan Morris RN [facility] 01-05-2000 hepatitis B vaccine, adult dosage Maegan Morris RN [facility] 08-02-1999 hepatitis B vaccine, adult dosage Maegan Morris RN [facility] 06-29-1999 hepatitis B vaccine, adult dosage Maegan Morris RN [facility] Payers Date Payer Category Payer Self-pay [id number] 2022 Medicare [id number] 2022 Medicare [employer] [id number] 2022-Present [address] [place] [address] O [id number] [id number] 2022 Unknown [id number]. 1.13.56.2.7.3.6 [id number] 2021 Unknown [id number] 1955 Unknown [id number] 2.16.840.1.766862.3.579.2. 1955 Unknown [id number] 2.16.840.1.393655.3.579.2. 1953 Unknown [id number] 2.16.840.1.230524.3.579.2. 1953 Unknown [id number] 2.16.840.1.689163.3.579.2. 1953 Unknown [id number] 2.16.840.1.365875.3.579.2. 1953 Unknown [id number] 2.16.840.1.194399.3.579.2.73 1953 Unknown [id number] 2.16.840.1.174628.3.579.2. 1953 Unknown [id number] 2.16.840.1.188928.3.579.2.73 1953 Unknown [id number] 2.16.840.1.153873.3.579.2.732 1953 Unknown [id number] 2.16.840.1.535143.3.579.2.73 1953 Unknown [id number] 2.16.840.1.378994.3.579.2.73 1953 Unknown [id number] 2.16.840.1.420566.3.579.2. 1953 Unknown [id number] 2.16.840.1.939240.3.579.2. 1953 Unknown [id number] 2.16.840.1.256930.3.579.2. 1953 Unknown [id number] 2.16.840.1.185550.3.579.2. 1953 Unknown [id number] 2.16.840.1.423365.3.579.2. 1953 Unknown [id number] 2.16.840.1.663751.3.579.2.356 1953 Unknown [id number] 2.16.840.1.032891.3.579.2.356 1953 Unknown [id number] 2.16.840.1.066311.3.579.2. 1953 Unknown [id number] 2.16.840.1.850409.3.579.2. 1953 Unknown [id number] 2.16.840.1.017746.3.579.2.72 1953 Unknown [id number] 2.16.840.1.067627.3.579.2. 1953 Unknown [id number] 2.16.840.1.239957.3.579.2.72 1953 Unknown [id number] 2.16.840.1.989074.3.579.2. 1953 Unknown [id number] 2.16.840.1.657073.3.579.2.1259 1953 Unknown [id number] 2.16.840.1.999111.3.579.2.9 1953 Unknown [id number] 2.16.840.1.964266.3.579.2.1258 1953 Unknown [id number] 2.16.840.1.290163.3.579.2.1258 1953 Unknown [id number] 2.16.840.1.327561.3.579.2.1259 Unknown [id number] Unknown [id number] 2.16.840.1.696129.3.579.2.531 Unknown [id number] 2.16.840.1.655355.3.579.2.531 Unknown [id number] 2.16.840.1.294990.3.579.2.531 Unknown [id number] 2.16.840.1.804867.3.579.2.531 Unknown [id number] 2.16.840.1.295453.3.579.2.531 Unknown [id number] 2.16.840.1.987906.3.579.2.531 Unknown [id number] 2.16.840.1.356299.3.579.2.531 Unknown [id number] 2.16.840.1.114379.3.579.2.531 Unknown [id number] 2.16.840.1.909958.3.579.2.531 Social History Date Type Detail Facility Start: 03-31-2020 End: 02-27-2023 Tobacco smoking status ILIS Ex-smoker (finding) [facility] Start: 1955 Sex Assigned At Female [facility] Sex Assigned At Female [place] [facility] Other Start: 05-15-2022 End: 12-17-2022 Tobacco smoking status NHIS Current some day smoker [facility] End: 03-27-2009 History of tobacco use Current smoker [facility] End: 03-27-2009 History of tobacco use Cigarette Smoker [facility] Start: 05-16-2022 Cigarettes smoked current (pack per day) - Reported 1 [facility] Comment on above: occasionaly cup of c offee; 2009; Start: 1955 Sex Assigned At Not on file [facility] Start: 05-06-2022 End: 05-16-2022 Exposure to SARS-CoV-2 (event) [facility] Start: 06-22-2022 End: 03-02-2023 Tobacco smoking status NHIS Never smoked tobacco (finding) [facility] Tobacco smoking status Never [facility] Goals Date Patient Goal Desired Activity /State Functional Status Date Assessment Result Facility 03-02-2023 Functional Status N/A [facility] 09-26-2022 Functional Status N/A [facility] 07-18-2022 Functional Status No [facility] 11-30-2021 Functional Status N/A [facility] Clinical Notes 12-29-2020 to 03-02-2023 Note Date & Type Note Facility 03-02-2023 Hospital Discharg e instructions Patient Education 03/02/2023 13:35:40 Kegel Exercises Kegel Exercises Kegel exercises can help strengthen your pelvic floor muscles. The pelvic floor is a group of muscles that support your rectum, small intestine, and bladder. In females, pelvic floor muscles also help support the uterus. These muscles help you control the flow of urine and stool (feces). Kegel exercises are painless and simple. They do not require any equipment. Your provider may suggest Kegel exercises to: Improve bladder and bowel control. Improve sexual response. Improve weak pelvic floor muscles after surgery to remove the uterus (hysterectomy) or after , in females. Improve weak pelvic floor muscles after prostate gland removal or surgery, in males. Kegel exercises involve squeezing your pelvic floor muscles. These are the same muscles you squeeze when you try to stop the flow of urine or keep from passing gas. The exercises can be done while sitting, standing, or lying down, but it is best to vary your position. Ask your health care provider which exercises are safe for you. Do exercises exactly as told by your health care provider and adjust them as directed. Do not begin these exercises until told by your health care provider. Exercises How to do Kegel exercises: 1.Squeeze your pelvic floor muscles tight. You should feel a tight lift in your rectal area. If you are a female, you should also feel a tightness in your vaginal area. Keep your stomach, buttocks, and legs relaxed. 2.Hold the muscles tight for up to 10 seconds. 3.Breathe normally. 4.Relax your muscles for up to 10 seconds. 5.Repeat as told by your health care provider. Repeat this exercise daily as told by your health care provider. Continue to do this exercise for at least 4 6 weeks, or for as long as told by your health care provider. You may be referred to a physical therapist who can help you learn more about how to do Kegel exercises. Depending on your condition, your health care provider may recommend: Varying how long you squeeze your muscles. Doing several sets of exercises every day. Doing exercises for several weeks. Making Kegel exercises a part of your regular exercise routine. This information is not intended to replace advice given to you by your health care provider. Make sure you discuss any questions you have with your health care provider. Document Revised: 07/22/2021 Document Reviewed: 07/22/2021 [employer] Patient Education 2022 [employer]. Follow Up Care 11/30/2021 13:34:28 With:DARRYN Alicia APRN, SHAHNAZ Ovalles, URL Address: When:Within 1 Year(s) [facility] 02-27-2023 Progress note Note Date/Time February 27, 2023 2:36pm [facility] [address] [place] [address] Wound Center Provider Note Signed Patient: Gerry Victoria MR#: [id number] : 1955 Acct:[id number] Age/Sex: 67 / F Copies to: Ward Zuniga,DO Adelia Saldana APRN~ HPI Date of Visit Date of Visit: Date of Service: 02/27/2023 Time of Service: 14:33 Narrative HPI: 02/02/23 Gerry is a 67 year old presenting to [facility] wound care for an initialvisit for the left lower leg ulcer that appears venous and/or vasculitic. She agrees to home health care for the skilled bandages as well as the taxing effortto leave the home. I did escribe doxycycline for the pink periulcer skin. A probiotic was suggested for gut and immune health and other nutrition suggestions were provided on her discharge papers. She can return in about 2 weeks. Anunna paste wrap and clindamycin/coconut oil mix was applied today and this will be the orders as long as she can tolerate the treatment. Had been referred [facility] at her last visit here and will have to see what happened with that. 02/13/23 appears to have fungal rash, topical nystatin was escribed, [facility] giraldo, [facility] as before 02/27/23 no fungal rash but now looks like dermatitis and so topical steroid and coconut oil was applied, has venous procedure in [place] tomorrow, 2 week appt here, can call if she feels like she needs an antibiotic if the steroid doesn't calm down the skin Subjective Pain Left Lower Leg: Pain Description: Intermittent Pain Intensity: 0 Wound/Ulcer History When did wound start?: January 2023 Left lateral lower leg ulcer Mode of Arrival/ Provider Service Representative: Personal vehicle Lives with:: Alone Appetite Description: Within Normal Limits Who helps w/ dressing change?: Home Health Why Do You Need Help?: Can't Reach Ulcer, Limited mobility, Unsafe leave home byself and Taxing effort to leave home Smoking Status: Former smoker [facility] Medical History (Updated 02/27/23 @ 14:36 by Adelia Saldana APRN) Acid reflux Fibromyalgia Heart palpitations Hx of gallstones Hypertension Hypothyroidism IBS (irritable bowel syndrome) Leg ulcer, left Leg ulcer, left Surgical History H/O: hysterectomy 1984 History of bilateral knee replacement History of biliary duct stent placement History of surgery on arm Family History Father Colon cancer Family/Other Colon cancer Mother CHF (congestive heart failure) Social History Smoking Status: Former smoker Tobacco Type: cigarettes Substance Use Type: Marijuana Substance Abuse Comment: medical marijuana Grafts History of Graft History of Graft?: No Exam Physical Exam Vital Signs: Temp Pulse Resp BP O2 Del Method 97.2 F L 71 18 153/78 H Room Air 02/27/23 14:26 02/27/23 14:26 02/27/23 14:26 02/27/23 14:26 02/27/23 14:26 Const General: cooperative, healthy appearing, comfortable, no acute distress and wellgroomed Nutritional Appearance: obese Orientation: alert, awake and oriented x3 Lower/Upper Extremity Exam Vascular Exam-Edema Left Lower Extremity: Edema Type: Non-Pitting Vascular Exam-Pulses Left Brachial: Pulse Assessment Method: NIBP Left Dorsalis Pedis: Pulse Assessment Method: Palpation Left Posterior Tibial: Pulse Assessment Method: Palpation Objective Meds/Allergies Home Medications amitriptyline 50 mg tablet 50 mg PO DAILY 03/29/17 [History Confirmed 02/13/23] atenolol 50 mg tablet 50 mg PO DAILY 03/29/17 [History Confirmed 02/13/23] gabapentin 100 mg capsule 100 mg PO TID 03/29/17 [History Confirmed 02/13/23] ropinirole 0.25 mg tablet 0.25 mg PO QID 03/29/17 [History Confirmed 02/13/23] tramadol 50 mg tablet 50 mg PO DAILY PRN Pain, Mild 03/29/17 [History Confirmed 02/13/23] levothyroxine 50 mcg tablet 100 mcg PO DAILY 10/23/18 [History Confirmed 02/13/23] omeprazole 40 mg capsule,delayed release 40 mg PO BID #60 caps 05/13/21 [Rx Confirmed 02/13/23] acyclovir 400 mg tablet 400 mg PO DAILY 05/15/22 [History Confirmed 02/13/23] escitalopram oxalate 10 mg tablet 10 mg PO DAILY 05/15/22 [History Confirmed 02/13/23] multivitamin 1 tab PO DAILY 10/05/22 [History Confirmed 02/13/23] clindamycin phosphate 1 % topical gel 1 applic topical .3 times weekly 4 weeks #60 grams 10/18/22 [Rx Confirmed 02/13/23] ondansetron 4 mg disintegrating tablet 4 mg PO Q6-8H PRN Nausea #10 tabs 12/17/22 [Rx Confirmed 02/13/23] doxycycline hyclate 100 mg capsule 100 mg PO BID 14 days #28 caps 02/02/23 [Rx Confirmed 02/13/23] nystatin 100,000 unit/gram topical powder 1 applic topical .3 times weekly 2 weeks #15 grams 02/13/23 [Rx] nystatin 100,000 unit/gram topical powder 1 applic topical .3 times/week 2 weeks #30 grams 02/14/23 [Rx] Allergies pregabalin [From Lyrica] Allergy (Verified 02/02/23 07:41) Swelling adhesive Adverse Reaction (Verified 02/02/23 07:41) Rash contact metal agent Adverse Reaction (Verified 02/02/23 07:41) Hives Wound/Ulcer Left Lower Lateral Leg: Type: Venous Stasis Ulcer Thickness: Skin Breakdown Bed Appearance: Beefy Red, Epithelial Tissue or Bridge, [place] and Yellow Percent of Wound Bed Granulated/Red: 98 Percent of Devitalized: 2 Length (cm): 12.0 Width (cm): 10.0 Depth (cm): 0.1 CM Sq: 120.000 Surrounding Tissue Appearance: [place] and Hyperpigmented Surrounding Tissue Temp: Warm Drainage Amount: Moderate Drainage Description: Serosanguineous Drainage Odor: No Odor Results Height: 5 ft 1 in Weight: 74.843 kg Body Mass Index: 31.1 Assessment/Plan Assessment/Plan (1) Venous stasis dermatitis of left lower extremity: Code(s): I87.2 - Venous insufficiency (chronic) (peripheral) Status: Suspected (2) Leg ulcer, left: Assessment/Problem Details: suspected venous or vasculitis Qualifiers: Non-pressure ulcer stage: limited to breakdown of skin Qualified Code(s): L97.921 - Non-pressure chronic ulcer of unspecified part of left lower leg limited to breakdown of skin Code(s): L97.929 - Non-pressure chronic ulcer of unspecified part of left lower leg with unspecified severity Status: Chronic (3) Varicose veins of both lower extremities: Code(s): I83.93 - Asymptomatic varicose veins of bilateral lower extremities Status: Chronic (4) Edema: Assessment/Problem Details: ble Code(s): R60.9 - Edema, unspecified Status: Chronic (5) Inflammation: Status: Chronic (6) Obesity: Code(s): E66.9 - Obesity, unspecified Status: Chronic (7) Pain in wound: Status: Acute (8) Uses roller walker: Code(s): Z99.89 - Dependence on other enabling machines and devices Status: Chronic (9) Vasculitis: Assessment/Problem Details: lle Code(s): I77.6 - Arteritis, unspecified Status: Suspected (10) Candidiasis: Code(s): B37.9 - Candidiasis, unspecified Status: Resolved Time spent with patient Time Spent With Patient (min): 13 Dictated By: Adelia Saldana APRN DD/ 32 Signed By: <Electronically signed by CUBA Saldana> 02/27/231435 [facility] Work Phone: 1(378) 580-391811-20-2023 Progress note Author Adelia Saldana [facility] February 13, 2023 10:33am Note Date/Time February 13, 2023 10:33am [facility] [address] [place] [address] Wound Center Provider Note Signed Patient: Gerry Victoria MR#: [id number] : 1955 Acct:[id number] Age/Sex: 67 / F Copies to: DO Adelia Cruz APRN~ HPI Date of Visit Date of Visit: Date of Service: 02/13/2023 Time of Service: 10:31 Narrative HPI: 02/02/23 Gerry is a 67 year old presenting to [facility] wound care for an initialvisit for the left lower leg ulcer that appears venous and/or vasculitic. She agrees to home health care for the skilled bandages as well as the taxing effortto leave the home. I did escribe doxycycline for the pink periulcer skin. A probiotic was suggested for gut and immune health and other nutrition suggestions were provided on her discharge papers. She can return in about 2 weeks. Anunna paste wrap and clindamycin/coconut oil mix was applied today and this will be the orders as long as she can tolerate the treatment. Had been referred to [facility] at her last visit here and will have to see what happened with that. 11/20/23 appears to have fungal rash, topical nystatin was escribed, david giraldo, [facility] as before Subjective Pain Left Lower Leg: Pain Description: Intermittent Pain Intensity: 4 Pain Management Techniques Other/Comment: PAIN IS PINCHY Wound/Ulcer History When did wound start?: January 2023 Left lateral lower leg ulcer Mode of Arrival/ Provider Service Representative: Personal vehicle Lives with:: Alone Appetite Description: Within Normal Limits Who helps w/ dressing change?: Home Health Why Do You Need Help?: Can't Reach Ulcer, Limited mobility, Unsafe leave home byself and Taxing effort to leave home Smoking Status: Former smoker [facility] Medical History (Updated 02/13/23 @ 10:33 by Adelia Saldana APRN) Acid reflux Fibromyalgia Heart palpitations Hx of gallstones Hypertension Hypothyroidism IBS (irritable bowel syndrome) Leg ulcer, left Leg ulcer, left Surgical History H/O: hysterectomy 1983 History of bilateral knee replacement History of biliary duct stent placement History of surgery on arm Family History Father Colon cancer Family/Other Colon cancer Mother CHF (congestive heart failure) Social History Smoking Status: Former smoker Tobacco Type: cigarettes Substance Use Type: Marijuana Substance Abuse Comment: medical marijuana Grafts History of Graft History of Graft?: No Exam Physical Exam Vital Signs: Temp Pulse Resp BP O2 Del Method 97.3 F L 76 18 165/86 H Room Air 02/13/23 10:22 02/13/23 10:22 02/13/23 10:22 02/13/23 10:22 02/13/23 10:22 Const General: cooperative, healthy appearing, comfortable, no acute distress and wellgroomed Nutritional Appearance: obese Orientation: alert, awake and oriented x3 Lower/Upper Extremity Exam Vascular Exam-Edema Left Lower Extremity: Edema Type: Non-Pitting Vascular Exam-Pulses Left Brachial: Pulse Assessment Method: NIBP Left Dorsalis Pedis: Pulse Assessment Method: Palpation Left Posterior Tibial: Pulse Assessment Method: Palpation Objective Meds/Allergies Home Medications amitriptyline 50 mg tablet 50 mg PO DAILY 03/29/17 [History Confirmed 02/13/23] atenolol 50 mg tablet 50 mg PO DAILY 03/29/17 [History Confirmed 02/13/23] gabapentin 100 mg capsule 100 mg PO TID 03/29/17 [History Confirmed 02/13/23] ropinirole 0.25 mg tablet 0.25 mg PO QID 03/29/17 [History Confirmed 02/13/23] tramadol 50 mg tablet 50 mg PO DAILY PRN Pain, Mild 03/29/17 [History Confirmed 02/13/23] levothyroxine 50 mcg tablet 100 mcg PO DAILY 10/23/18 [History Confirmed 02/13/23] omeprazole 40 mg capsule,delayed release 40 mg PO BID #60 caps 05/13/21 [Rx Confirmed 02/13/23] acyclovir 400 mg tablet 400 mg PO DAILY 05/15/22 [History Confirmed 02/13/23] escitalopram oxalate 10 mg tablet 10 mg PO DAILY 05/15/22 [History Confirmed 02/13/23] multivitamin 1 tab PO DAILY 10/05/22 [History Confirmed 02/13/23] clindamycin phosphate 1 % topical gel 1 applic topical .3 times weekly 4 weeks #60 grams 10/18/22 [Rx Confirmed 02/13/23] ondansetron 4 mg disintegrating tablet 4 mg PO Q6-8H PRN Nausea #10 tabs 12/17/22 [Rx Confirmed 02/13/23] doxycycline hyclate 100 mg capsule 100 mg PO BID 14 days #28 caps 02/02/23 [Rx Confirmed 02/13/23] nystatin 100,000 unit/gram topical powder 1 applic topical .3 times weekly 2 weeks #15 grams 02/13/23 [Rx] Allergies pregabalin [From Lyrica] Allergy (Verified 02/02/23 07:41) Swelling adhesive Adverse Reaction (Verified 02/02/23 07:41) Rash contact metal agent Adverse Reaction (Verified 02/02/23 07:41) Hives Wound/Ulcer Left Lower Lateral Leg: Type: Venous Stasis Ulcer Thickness: Skin Breakdown Bed Appearance: Epithelial Tissue or Bridge, [place] and Yellow Percent of Wound Bed Granulated/Red: 95 Percent of Devitalized: 5 Length (cm): 12.5 Width (cm): 8.5 Depth (cm): 0.1 CM Sq: 106.250 Surrounding Tissue Appearance: [place] and Hyperpigmented Surrounding Tissue Temp: Warm Drainage Amount: Moderate Drainage Description: Serosanguineous Drainage Odor: No Odor Results Height: 5 ft 1 in Weight: 74.843 kg Body Mass Index: 31.1 Assessment/Plan Assessment/Plan (1) Leg ulcer, left: Assessment/Problem Details: suspected venous or vasculitis Qualifiers: Non-pressure ulcer stage: limited to breakdown of skin Qualified Code(s): L97.921 - Non-pressure chronic ulcer of unspecified part of left lower leg limited to breakdown of skin Code(s): L97.929 - Non-pressure chronic ulcer of unspecified part of left lower leg with unspecified severity Status: Acute (2) Varicose veins of both lower extremities: Code(s): I83.93 - Asymptomatic varicose veins of bilateral lower extremities Status: Chronic (3) Edema: Assessment/Problem Details: ble Code(s): R60.9 - Edema, unspecified Status: Chronic (4) Inflammation: Status: Chronic (5) Obesity: Code(s): E66.9 - Obesity, unspecified Status: Chronic (6) Pain in wound: Status: Acute (7) Uses roller walker: Code(s): Z99.89 - Dependence on other enabling machines and devices Status: Chronic (8) Vasculitis: Assessment/Problem Details: lle Code(s): I77.6 - Arteritis, unspecified Status: Suspected (9) Candidiasis: Code(s): B37.9 - Candidiasis, unspecified Status: Suspected Time spent with patient Time Spent With Patient (min): 10 Dictated By: Adelia Saldana APRN DD/ 30 Signed By: <Electronically signed by CUBA Saldana> 02/13/23 1033 [facility] Work Phone: 1(317) 153-485211-09-2023 Progress note Author Humphrey Major [facility] February 02, 2023 9:37am Note Date/Time February 02, 2023 7 :50am [facility] [address] [place] [address] Wound Center Provider Note Signed Patient: Gerry Victoria MR#: [id number] : 1955 Acct:[id number] Age/Sex: 67 / F Copies to: Humphrey V MajorMD Ward redman DO Tonia Copsey, APRN~ HPI Date of Visit Date of Visit: Date of Service: 02/02/2023 Time of Service: 07:50 Narrative HPI: 02/02/23 Gerry is a 67 year old presenting to [facility] wound care for an initialvisit for the left lower leg ulcer that appears venous and/or vasculitic. She agrees to home health care for the skilled bandages as well as the taxing effortto leave the home. I did escribe doxycycline for the pink periulcer skin. A probiotic was suggested for gut and immune health and other nutrition suggestions were provided on her discharge papers. She can return in about 2 weeks. An unna paste wrap and clindamycin/coconut oil mix was applied today and this will be the orders as long as she can tolerate the treatment. Had been referred to melinda wright at her last visit here and will have to see what happened with that. Subjective Pain Left Lower Leg: Pain Description: Intermittent and Aching Pain Intensity: 4 Wound/Ulcer History When did wound start?: January 2023 Left lateral lower leg ulcer Mode of Arrival/ Provider Service Representative: Personal vehicle Lives with:: Alone Appetite Description: Within Normal Limits Who helps w/ dressing change?: Home Health Why Do You Need Help?: Can't Reach Ulcer, Limited mobility, Unsafe leave home byself and Taxing effort to leave home Smoking Status: Former smoker [facility] Medical History (Updated 02/02/23 @ 07:52 by Adelia Saldana APRN) Acid reflux Fibromyalgia Heart palpitations Hx of gallstones Hypertension Hypothyroidism IBS (irritable bowel syndrome) Leg ulcer, left Leg ulcer, left Surgical History H/O: hysterectomy 1983 History of bilateral knee replacement History of biliary duct stent placement History of surgery on arm Family History Father Colon cancer Family/Other Colon cancer Mother CHF (congestive heart failure) Social History Smoking Status: Former smoker Tobacco Type: cigarettes Substance Use Type: Marijuana Substance Abuse Comment: medical marijuana Grafts History of Graft History of Graft?: No Exam Physical Exam Vital Signs: Temp Pulse Resp BP O2 Del Method 97.5 F L 71 20 165/76 H Room Air 02/02/23 07:42 02/02/23 07:42 02/02/23 07:42 02/02/23 07:42 02/02/23 07:42 Const General: cooperative, healthy appearing, comfortable, no acute distress and wellgroomed Nutritional Appearance: obese Orientation: alert, awake and oriented x3 Lower/Upper Extremity Exam Vascular Exam-Edema Left Lower Extremity: Edema Degree: 1+ Edema Type: Pitting Vascular Exam-Pulses Left Brachial: Pulse Assessment Method: NIBP Left Dorsalis Pedis: Pulse Assessment Method: Palpation Left Posterior Tibial: Pulse Assessment Method: Palpation Objective Meds/Allergies Home Medications amitriptyline 50 mg tablet 50 mg PO DAILY 03/29/17 [History Confirmed 02/02/23] atenolol 50 mg tablet 50 mg PO DAILY 03/29/17 [History Confirmed 02/02/23] gabapentin 100 mg capsule 100 mg PO TID 03/29/17 [History Confirmed 02/02/23] ropinirole 0.25 mg tablet 0.25 mg PO QID 03/29/17 [History Confirmed 02/02/23] tramadol 50 mg tablet 50 mg PO DAILY PRN Pain, Mild 03/29/17 [History Confirmed 02/02/23] levothyroxine 50 mcg tablet 100 mcg PO DAILY 10/23/18 [History Confirmed 02/02/23] omeprazole 40 mg capsule,delayed release 40 mg PO BID #60 caps 05/13/21 [Rx Confirmed 02/02/23] acyclovir 400 mg tablet 400 mg PO DAILY 05/15/22 [History Confirmed 02/02/23] escitalopram oxalate 10 mg tablet 10 mg PO DAILY 05/15/22 [History Confirmed 02/02/23] multivitamin 1 tab PO DAILY 10/05/22 [History Confirmed 02/02/23] clindamycin phosphate 1 % topical gel 1 applic topical .3 times weekly 4 weeks #60 grams 10/18/22 [Rx Confirmed 02/02/23] ondansetron 4 mg disintegrating tablet 4 mg PO Q6-8H PRN Nausea #10 tabs 12/17/22 [Rx Confirmed 02/02/23] doxycycline hyclate 100 mg capsule 100 mg PO BID 14 days #28 caps 02/02/23 [Rx] Allergies pregabalin [From Lyrica] Allergy (Verified 02/02/23 07:41) Swelling adhesive Adverse Reaction (Verified 02/02/23 07:41) Rash contact metal agent Adverse Reaction (Verified 02/02/23 07:41) Hives Wound/Ulcer Left Lower Lateral Leg: Type: Venous Stasis Ulcer Thickness: Skin Breakdown Bed Appearance: [place] and Yellow Percent of Wound Bed Granulated/Red: 90 Percent of Devitalized: 10 Length (cm): 4 Width (cm): 2 Depth (cm): 0.1 CM Sq: 8.000 Surrounding Tissue Appearance: [place] and Hyperpigmented Surrounding Tissue Temp: Warm Drainage Amount: Moderate Drainage Description: Serosanguineous Drainage Odor: No Odor Results Height: 5 ft 1 in Weight: 74.843 kg Body Mass Index: 31.1 Assessment/Plan Assessment/Plan (1) Leg ulcer, left: Assessment/Problem Details: suspected venous or vasculitis Qualifiers: Non-pressure ulcer stage: limited to breakdown of skin Qualified Code(s): L97.921 - Non-pressure chronic ulcer of unspecified part of left lower leg limited to breakdown of skin Code(s): L97.929 - Non-pressure chronic ulcer of unspecified part of left lower leg with unspecified severity Status: Acute (2) Varicose veins of both lower extremities: Code(s): I83.93 - Asymptomatic varicose veins of bilateral lower extremities Status: Chronic (3) Edema: Assessment/Problem Details: ble Code(s): R60.9 - Edema, unspecified Status: Chronic (4) Inflammation: Status: Chronic (5) Obesity: Code(s): E66.9 - Obesity, unspecified Status: Chronic (6) Pain in wound: Status: Acute (7) Uses roller walker: Code(s): Z99.89 - Dependence on other enabling machines and devices Status: Chronic (8) Vasculitis: Assessment/Problem Details: lle Code(s): I77.6 - Arteritis, unspecified Status: Suspected Time spent with patient Time Spent With Patient (min): 13 Dictated By: Adelia Saldana APRN DD/ 9 Signed By: <Electronically signed by CUBA Saldana> 02/02/23753 <Electronically signed by MD Humphrey Major> 02/02/23 0937 [facility] Work Phone: [phone]) 719-218210-09-2023 Evaluation note* Encounter Date Diagnosis Assessment Notes Treatment Notes Treatment Clinical Notes Dec, 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 of ankle (ICD-10 - I83.023) Dec, 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 Should she deteriorate or recur we could treat the distal saphenous vein either with laser ablation or Varithena. The lesser saphenous vein is also a potential target for intervention. I will see her back in a month to assess her progress. [employer] Other 07-31-2023 Evaluation note* Encounter Date Diagnosis Assessment Notes Treatment Notes Treatment Clinical Notes Sep, 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 (ICD-10 - I83.025) Sep, Non-pressure chronic ulcer of other part of left foot with unspecified severity (ICD-10 - L97.529) Sep, Other Venous insuffic iency with ulceration We replaced her Unna boot for today. She will be scheduled for a full functional venous duplex examination to look at options for improvement given the severity of recurrent ulceration. I will see her back when the ultrasound is complete. [employer] Other 07-11-2023 NoteMicrobiology PROCEDURE: Blood Culture Charcoal [R1] SOURCE: Blood BODY SITE: Arm L COLLECTED DATE/TIME: 09/27/2022 01:12 EDT RECEIVED DATE/TIME: 09/27/2022 01:37 EDT START DATE/TIME: 09/27/2022 01:37 EDT FREE TEXT SOURCE: ELLEN Mckenna PA-C, Michelle Mckenna PA-C, Michelle Flores FINAL REPORTS Final Report [] Verified Date/Time: 10/04/2022 07:00 EDT No growth at 7 days. Performing Locations R1: This test was performed at: [facility], [address] [place] [address], [id number], [facility]ohSelect [facility] [place]Comment on above:Performed By: #### [id number] #### [facility] [address] [place] [address] [id number] NoteMicrobiology PROCEDURE: Blood Culture Charcoal [R1] SOURCE: Blood BODY SITE: Arm R COLLECTED DATE/TIME: 09/27/2022 01:22 EDT RECEIVED DATE/TIME: 09/27/2022 01:37 EDT START DATE/TIME: 09/27/2022 01:37 EDT FREE TEXT SOURCE: rt susan Mckenna PA-C, Michelle Mckenna PA-C, Michelle Flores FINAL REPORTS Final Report [] Verified Date/Time: 10/04/2022 07:00 EDT No growth at 7 days. Performing Locations R1: This test was performed at: [facility], [address] [place] [address], [id number], TknmpoSelect [facility] OhioComment on above:Performed By: #### [id number] #### [address] [id number] Evaluation + Plan noteExtracted from: Title:Admission H & P Author:Maliha PADILLA DO Date:09/27/22 1. Cellulitis of leg (L03.11 9: Cellulitis of unspecified part of limb) IV Zosyn. Patient was given 1 dose of vancomycin in the emergency department. Will screen for MRSA. If MRSA screen is positive we will continue vancomycin. 2. CAD (coronary atherosclerotic disease) (I25.10: Atherosclerotic heart disease of [place] coronary artery without angina pectoris) No active anginal complaints. We will resume home medications once reconciled 3. RLS (restless legs syndrome) (G25.81: Restless legs syndrome) Resume home medications once reconciled. 4. Hypothyroid (E03.9: Hypothyroidism, unspecified) Resume home Synthroid dose 5. HLD (hyperlipidemia) (E78.5: Hyperlipidemia, unspecified) Resume home statin dose 6. Depression (F32.A: Depression, unspecified) Resume home medications once reconciled. 7. On deep vein thrombosis (DVT) prophylaxis (Z79.899: Other nursing home (current) drug therapy) SCD, enoxaparin Orders: acetaminophen, 650 mg = 2 tab(s), Tab, Oral, q6hr PRN Pain, Routine, Start date 09/27/22 4:10:00 EDT, 09/27/22 4:10:00 EDT ammonium lactate topical, 1 vivi, Cream, Topical, BID, Routine, Start date 09/27/22 9:00:00 EDT aspirin, 81 mg = 1 tab(s), Tab-EC, Oral, Daily, Routine, Start date 09/27/22 9:00:00 EDT, 09/27/22 4:10:00 EDT diphenhydrAMINE, 25 mg = 1 cap(s), Cap, Oral, q6hr PRN Itching, Routine, Start date 09/27/22 4:10:00 EDT, 09/27/22 4:10:00 EDT enoxaparin, 40 mg = 0.4 mL, Injection, SubCutaneous, Daily, Routine, Start date 09/27/22 9:00:00 EDT, 09/27/22 4:10:00 EDT hydrALAZINE, 10 mg = 0.5 mL, Injection, IV Push, q6hr PRN Other (see comment), Routine, Start date 09/27/22 4:10:00 EDT, 09/27/22 4:10:00 EDT ketorolac, 15 mg = 0.5 mL, Injection, IV, q6hr PRN Pain for 5 day(s), Stop date 10/02/22 4:09:00 EDT, Routine, Start date 09/27/22 4:10:00 EDT, 09/27/22 4:10:00 EDT ondansetron, 4 mg = 2 mL, Injection, IV Push, q6hr PRN Nausea, Routine, Start date 09/27/22 4:10:00 EDT, 09/27/22 4:10:00 EDT piperacillin-tazobactam + Sodium Chloride 0.9% intravenous solution 50 mL, 3.375 gm = 1 EA, IV Piggyback, q6hrFT, Stop date 10/27/22 5:59:00 EDT, Routine, Start date 09/27/22 6:00:00 EDT, 100 mL/hr, Infuse over 30 minute(s), 09/27/22 6:00:00 EDT promethazine, 12.5 mg = 0.5 mL, Injection, IV Push, q6hr PRN Nausea, Routine, Start date 09/27/22 4:10:00 EDT, 09/27/22 4:10:00 EDT Ambulate with Assistance Below the Knee Intermittent Pneumatic Compression Device Cardiac Diet MRSA Screen Notify Provider Vital Signs Notify Provider Vital Signs Place in Status Precautions Resuscitation Status - Full Saline Lock Convert From IV Vital Signs Weight Anticipated stay less than 2 midnights. Patient will be observation status. Extracted from: Title:ED Note Author:Michelle Mckenna PA-C Date:09/27/22 1. Cellulitis of leg (L03.11 9: Cellulitis of unspecified part of limb) Orders: Sodium Chloride 0.9% intravenous solution, 1,000 mL, Soln-IV, IV, Once, Stop date 09/27/22 0:54:00 EDT, STAT, Start date 09/27/22 0:54:00 EDT, Infuse over 61, minute(s) tramadol, 50 mg = 1 tab(s), Tab, Oral, Once, Stop date 09/27/22 3:25:00 EDT, STAT, Start date 09/27/22 3:25:00 EDT, 09/27/22 3:25:00 EDT Automated Diff Basic Metabolic Panel Blood Culture Charcoal Blood Culture Charcoal C-Reactive Protein CBC w/ Auto Diff ED Physician consult Hospitalist for continued care eGFR Hepatic Function Panel Lactic Acid Saline Lock Insert Sedimentation Rate Automated UA With Cult Reflex XR Ankle 3+ Views Left Future Appointments Appointment Date:12/01/2022 01:00:00 PM Scheduled Provider:MARYCARMEN NAVA PA-C Location:[facility] Appointment Type:URO Office Visit Diagnostic Tests Pending * Blood Culture Charcoal 09/27/22 * Blood Culture Charcoal 09/27/22 * MRSA Screen 09/27/22 * CBC w/ Auto Diff 09/28/22 * Basic Metabolic Panel 09/28/22 * Magnesium Level 09/28/22 [facility]07-04-2023 NoteI was called to the bedside and informed that the patient would like to leave AGAINST MEDICAL ADVICE at this time. The patient is oriented to person, place, and time, demonstrating all bhandari elements of capacity to make decisions regarding the medical care offered. The patient speaks coherently and exhibits no evidence of having an altered level of consciousness or alcohol or drug intoxication to a point that would impair ability to delineate a choice. The patient demonstrates understanding and appreciation of the relevant information of the nature of their medical condition, as well as the risks, benefits, and treatment alternatives (including non-treatment), consequences of refusing care, and can appropriately communicate a rational reasoning about their choice of care options. Patient is aware the suspected diagnosis suggested by history and exam. The patient demonstrates understanding and appreciation of the relevant information of the nature of their medical condition, as well as the risks, benefits, and treatment alternatives (including non-treatment), consequences ofrefusing care, and can appropriately communicate a rational reasoning about their choice of care options. The risks of refusing recommended care that were disclosed and acknowledged by the patient include , neurologic dysfunction, permanent mental impairment, loss of limb, loss of sexual function, loss of current lifestyle, worsening of chronic condition, long-term disability. The patient und erstands they are welcome to return to the hospital at any time to receive the recommended care or any other care at any time, regardless of their ability to pay for such care. Discharge instructionswere provided to the patient. Patient will be sent home on Keflex 4 times daily for 7 days and doxycycline twice daily for 7 days. Instructed her to call the office of her primary care physician to arrange for outpatient follow-up as soon as possible. Alexx Beal DO, FAAEMFisher Medstar Good Samaritan HospitalComment on above:Result Comment: Electronically Signed By: Alexx Beal DO.br\Date and Time Signed: 09/27/22 08:17 [id number] Hospital Discharge instructions Patient Education 09/27/2022 08:15:11 Cellulitis, Adult, Gqtb-[id number] Cellulitis, Adult Cellulitis is a skin infection. The infected area is often warm, red, swollen, and sore. It occurs most often in the arms and lower legs. It is very important to get treated for this condition. What are the causes? This condition is caused by bacteria. The bacteria enter through a break in the skin, such as a cut, burn, insect bite, open sore, or crack. What increases the risk? This condition is more likely to occur in people who: Have a weak body defense system (immune system). Have open cuts, frazier, bites, or scrapes on the skin. Are older than 60 years of age. Have a blood sugar problem (diabetes). Have a long-lasting (chronic) liver disease (cirrhosis) or kidney disease. Are very overweight (obese). Have a skin problem, such as: ?Itchy rash (eczema). ?Slow movement of blood in the veins (venous stasis). ?Fluid buildup below the skin (edema). Have been treated with high-energy rays (radiation). Use IV drugs. What are the signs or symptoms? Symptoms of this condition include: Skin that is: ?Red. ?Streaking. ?Spotting. ?Swollen. ?Sore or painful when you touch it. ?Warm. A fever. Chills. Blisters. How is this diagnosed? This condition is diagnosed based on: Medical history. Physical exam. Blood tests. Imaging tests. How is this treated? Treatment for this condition may include: Medicines to treat infections or allergies. Home care, such as: ?Rest. ?Placing cold or warm cloths (compresses) on the skin. Hospital care, if the condition is very bad. Follow these instructions at home: Medicines Take inca-ymr-lazyhbq and prescription medicines only as told by your doctor. If you were prescribed an antibiotic medicine, take it as told by your doctor. Do not stop taking it even if you start to feel better. General instructions Drink enough fluid to keep your pee (urine) pale yellow. Do not touch or rub the infected area. Raise (elevate) the infected area above the level of your heart while you are sitting or lying down. Place cold or warm cloths on the area as told by your doctor. Keep all follow-up visits as told by your doctor. This is important. Contact a doctor if: You have a fever. You do not start to get better after 1 2 days of treatment. Your bone or joint under the infected area starts to hurt after the skin has healed. Your infection comes back. This can happen in the same area or another area. You have a swollen bump in the area. You have new symptoms. You feel ill and have muscle aches and pains. Get help right away if: Your symptoms get worse. You feel very sleepy. You throw up (vomit) or have watery poop (diarrhea) for a long time. You see red streaks coming from the area. Your red area gets larger. Your red area turns dark in color. These symptoms may represent a serious problem that is an emergency. Do not wait to see if the symptoms will go away. Get medical help right away. Call your local emergency services (911 in the [place] Do not drive yourself to the hospital. Summary Cellulitis is a skin infection. The area is often warm, red, swollen, and sore. This condition is treated with medicines, rest, and cold and warm cloths. Take all medicines only as told by your doctor. Tell your doctor if symptoms do not start to get better after 1 2 days of treatment. This information is not intended to replace advice given to you by your health care provider. Make sure you discuss any questions you have with your health care provider. Document Revised: 12/23/2021 Document Reviewed: 12/23/2021 [email or web address] Patient Education 2022 [employer]. Follow Up Care 09/26/2022 22:54:12 With:WARD ZUNIGA Address: [address] [place] [id number] When:09/30/2022 [facility]07-04-2023 NoteChief Complaint pt to ED with c/o L lower leg swelling with weeping wounds to leg. pt denies hx of DM. states hx ofL leg swelling that causes the skin to break and weep. swelling and clear weeping drainage noted intriage. denies fevers or chills. wounds covered. History of Present Illness Patient is a 67-year-old female with past medical history as noted below who comes in with above-stated chief complaint. Patient states that about 10 days ago she noticed a small open lesion near herleft lateral malleolus. She saw her PCP around that time and was supposed to be started on an oral antibiotic. For some reason antibiotic was not called then and then patient went to an urgent care on 09/21/2022. At that time patient was prescribed Bactrim twice daily. Patient states that the lesionhas grown and, erythematous and edematous since then therefore came to the ED for evaluation. She has been having some subjective nausea but no vomiting. Patient denies any fevers or chills. Patient does have pain in her left foot/ankle. Patient denies any shortness of breath, chest pain, headache,vision changes, diarrhea, constipation, dysuria, abdominal pain. Review of Systems 14 Systems reviewed and negative except as noted in HPI. Scoring Sauer Fall Risk Score: 15 (09/26/22) Physical Exam Vitals & Measurements T: 37.2 ?C(Oral) HR: 65(Peripheral) RR: 18 BP: 106/62 SpO2: 93% HT: 154 cm WT: 75.9 kg General: alert, no acute distress Skin: warm, dry Head: no trauma, normocephalic Neck: Trachea midline, no adenopathy, no tenderness Eye: normal conjunctiva, sclera clear ENMT: oral mucosa moist, no pharyngeal erythema or exudate. hearing grossly intact Cardiovascular: regular rate and rhythm, no murmur/gallop/rub Respiratory: Lungs CTA, respirations non labored , no w/r/r Gastrointestinal: Positive bowel sound, soft, non distended, no tenderness, no guarding. Extremities: Left lower extremity with large erythematous area mostly on the anterior portion of the kiser from about one third of the way up to the ankle to the forefoot. Toes are excluded. It is warm to touch. There is no drainage noted. Area has been outlined with a skin marker. Osteopathic: Deferred due to being noncontributory to current case. Neurological: oriented x 4, LOC appropriate for age, CN II-XII intact, motor strength equal & normal bilaterally, sensation equal & normal bilaterally, speech normal Psychiatric: cooperative, affect appropriate for age, normal judgement, normal psychiatric thoughts. Lab Results WBC: 5.9 E9/L (09/27/22 01:12:00) RBC: 3.7 E12/L Low (09/27/22 01:12:00) HGB: 9.6 gm/dL Low (09/27/22 01:12:00) Hct: 29.2 % Low (09/27/22 01:12:00) MCV: 79.9 fL Low (09/27/22:12:00) MCH: 26.4 pg Low (09/27/22:12:00) MCHC: 33 gm/dL (09/27/22:12:00) RDW: 15.9 % High (09/27/22:12:00) Platelet: 249 E9/L (09/27/22:12:00) MPV: 7.9 fL (09/27/22:12:00) Neutro Auto: 61.4 % (09/27/22:12:00) Lymph Auto: 18 % (09/27/22:12:00) Stewart Auto: 11.2 % (09/27/22:12:00) Eos Auto: 8.4 % High (09/27/22:12:00) Basophil Auto: 1 % (09/27/22:12:00) Neutro Absolute: 3.6 E9/L (09/27/22:12:00) Lymph Absolute: 1.1 E9/L (09/27/22:12:00) Stewart Absolute: 0.7 E9/L (09/27/22:12:00) Eos Absolute: 0.5 E9/L (09/27/22:12:00) Basophil Absolute: 0.1 E9/L (09/27/22:12:00) Sed Rate Automated: 25 mm/hr (09/27/22:12:00) Glucose Lvl: 84 mg/dL (09/27/22:12:00) BUN: 17 mg/dL (09/27/22:12:00) Creatinine: 1.2 mg/dL (09/27/22:12:00) eGFR: 49 mL/min/1.73 m2 Low (09/27/22:12:00) BUN/Creat Ratio: 14 (09/27/22:12:00) Sodium Lvl: 138 mmol/L (09/27/22:12:00) Potassium Lvl: 3.6 mmol/L (09/27/22:12:00) Chloride: 101 mmol/L (09/27/22:12:00) CO2: 29 mmol/L (07/04/23 01:12:00) AGAP: 12 mEq/L (09/27/22 01:12:00) Calcium Lvl: 8.9 mg/dL (09/27/22:12:00) Alk Phos: 79 Int._Unit/L (09/27/22 01:12:00) ALT: 11 Int._Unit/L (09/27/22:12:00) AST: 19 Int._Unit/L (09/27/22:12:00) Total Protein: 7 gm/dL (09/27/22:12:00) Albumin Lvl: 3.8 gm/dL (09/27/22:12:00) Globulin: 3.2 gm/dL (09/27/22:12:00) A/G Ratio: 1.2 (09/27/22:12:00) Bili Total: 0.6 mg/dL (09/27/22 01:12:00) Bili Direct: 0.1 mg/dL (09/27/22:12:00) Bili Indirect: 0.5 mg/dL (09/27/22 01:12:00) Lactic Acid Lvl: 0.5 mmol/L (09/27/22:12:00) CRP: 7.5 mg/dL High (09/27/22 01:12:00) Assessment/Plan 1. Cellulitis of leg (L03.119: Cellulitis of unspecified part of limb) IV Zosyn. Patient was given 1 dose of vancomycin in the emergency department. Will screen for MRSA.If MRSA screen is positive we will continue vancomycin. 2. CAD (coronary atherosclerotic disease) (I25.10: Atherosclerotic heart disease of [place] coronaryartery without angina pectoris) No active anginal complaints. We will resume home medications once reconciled 3. RLS (restless legs syndrome) (G25.81: Restless legs syndrome) Resume home medications once reconciled. 4. Hypo (more content not included)...[facility] on above:Result Comment: Electronically Signed By: Maliha PADILLA DO\Date and Time Signed: 09/27/22 04:19 [id number] Hospital Discharge instructions Patient Education 07/26/2022 13:13:28 Post Op Patient Instructions - FT (CUSTOM) 07/26/2022 12:47:31 Minimally Invasive Cholecystectomy, Care After, Inmz-ck-Zpru Minimally Invasive Cholecystectomy, Care After What can I expect after the procedure? After the procedure, it is common to: Have pain at the areas of surgery. You will be given medicines for pain. Vomit or feel like you may vomit. Feel fullness in the belly (bloating) or have pain in the shoulder. This comes from the gas that was used during the surgery. Follow these instructions at home: Medicines Take tpew-sgs-lymxqdw and prescription medicines only as told by your doctor. If you were prescribed an antibiotic medicine, take it as told by your doctor. Do not stop taking it even if you start to feel better. If told, take steps to prevent problems with pooping (constipation). You may need to: ?Drink enough fluid to keep your pee (urine) pale yellow. ?Take medicines. You will be told what medicines to take. ?Eat foods that are high in fiber. These include beans, whole grains, and fresh fruits and vegetables. ?Limit foods that are high in fat and sugar. These include fried or sweet foods. Ask your doctor if you should avoid driving or using machines while you are taking your medicine. Incision care Follow instructions from your doctor about how to take care of your cuts from surgery (incisions). Make sure you: ?Wash your hands with soap and water for at least 20 seconds before and after you change your bandage (dressing). If you cannot use soap and water, use hand content producer. ?Change your bandage. ?Leave stitches (sutures) or skin glue in place for at least 2 weeks. ?Leave tape strips alone unless you are told to take them off. You may trim the edges of the tape strips if they curl up. Do not take baths, swim, or use a hot tub. Ask your doctor about taking showers or sponge baths. Check your incision area every day for signs of infection. Check for: ?More redness, swelling, or pain. ?Fluid or blood. ?Warmth. ?Pus or a bad smell. Activity Rest as told by your doctor. Do not do activities that require a lot of effort. Get up to take short walks every 1 to 2 hours. Ask for help if you feel weak or unsteady. Do not lift anything that is heavier than 10 lb (4.5 kg), or the limit that you are told. Do not play contact sports until your doctor says it is okay. Do not return to work or school until your doctor says it is okay. Return to your normal activities when your doctor says that it is safe. General instructions If you were given a sedative during your procedure, do not drive or use machines until your doctor says that it is safe. A sedative is a medicine that helps you relax. Keep all follow-up visits. Contact a doctor if: You get a rash. You have more redness, swelling, or pain around your incisions. You have fluid or blood coming from your incisions. Your incisions feel warm to the touch. You have pus or a bad smell coming from your incisions. You have a fever. One or more of your incisions breaks open. Get help right away if: You have trouble breathing. You have chest pain. You have pain that is getting worse in your shoulders. You faint or feel dizzy when you stand. You have very bad pain in your belly (abdomen). You feel like you may vomit or you vomit, and this lasts for more than one day. You have leg pain. These symptoms may be an emergency. Get help right away. Call 911. Do not wait to see if the symptoms will go away. Do not drive yourself to the hospital. Summary After your surgery, it is common to have pain at the areas of surgery. You may also vomit or feel fullness in the belly. Follow your doctor's instructions about medicine, activity restrictions, and caring for your surgery areas. Do not do activities that require a lot of effort. Contact a doctor if you have a fever or other signs of infection, such as more redness, swelling, or pain around your incisions. Get help right away if you have chest pain, increasing pain in the shoulders, or trouble breathing. This information is not intended to replace advice given to you by your health care provider. Make sure you discuss any questions you have with your health care provider. Document Revised: 09/14/2021 Document Reviewed: 09/14/2021 [employer] Patient Education 2022 [employer]. 07/26/2022 12:45:51 Cholelithiasis Cholelithiasis Cholelithiasis is a disease in which gallstones form in the gallbladder. The gallbladder is an organ that stores bile. Bile is a fluid that helps to digest fats. Gallstones begin as small crystals and can slowly grow into stones. They may cause no symptoms until they block the gallbladder duct, or cystic duct, when the gallbladder tightens (contracts) after food is eaten. This can cause pain and is known as a gallbladder attack, or biliary colic. There are two main types of gallstones: Cholesterol stones. These are the most common type of gallstone. These stones are made of hardened cholesterol and are usually yellow-green in color. Cholesterol is a fat-like substance that is made in the liver. Pigment stones. These are dark in color and are made of a red-yellow substance, called bilirubin,that forms when hemoglobin from red blood cells breaks down. What are the causes? This condition may be caused by an imbalance in the different parts that make bile. This can happenif the bile: Has too much bilirubin. This can happen in certain blood diseases, such as sickle cell anemia. Has too much cholesterol. Does not have enough bile salts. These salts help the body absorb and digest fats. In some cases, this condition can also be caused by the gallbladder not emptying completely or often enough. This is common during . What increases the risk? The following factors may make you more likely to develop this condition: Being female. Having multiple pregnancies. Health care providers sometimes advise removing diseased gallbladders before future pregnancies. Eating a diet that is heavy in fried foods, fat, and refined carbohydrates, such as white bread andwhite rice. Being obese. Being older than age 40. Using medicines that contain female hormones (estrogen) for a long time. Losing weight quickly. Having a family history of gallstones. Having certain medical problems, such as: ?Diabetes mellitus. ?Cystic fibrosis. ?Crohn's disease. ?Cirrhosis or other long-term (chronic) liver disease. ?Certain blood diseases, such as sickle cell anemia or leukemia. What are the signs or symptoms? In many cases, having gallstones causes no symptoms. When you have gallstones but do not have symptoms, you have silent gallstones. If a gallstone blocks your bile duct, it can cause a gallbladder attack. The main symptom of a gallbladder attack is sudden pain in the upper right part of the abdomen. The pain: Usually comes at night or after eating. Can last for one hour or more. Can spread to your right shoulder, back, or chest. Can feel like indigestion. This is discomfort, burning, or fullness in your upper abdomen. If the bile duct is blocked for more than a few hours, it can cause an infection or inflammation ofyour gallbladder (cholecystitis), liver, or pancreas. This can cause: Nausea or vomiting. Bloating. Pain in your abdomen that lasts for 5 hours or longer. Tenderness in your upper abdomen, often in the upper right section and under your rib cage. Fever or chills. Skin or the white parts of your eyes turning yellow (jaundice). This usually happens when a stone has blocked bile from passing through the common bile duct. Dark urine or light-colored stools. How is this diagnosed? This condition may be diagnosed based on: A physical exam. Your medical history. Ultrasound. CT scan. MRI. You may also have other tests, including: Blood tests to check for signs of an infection or inflammation. Cholescintigraphy, or HIDA scan. This is a scan of your gallbladder and bile ducts (biliary system)using non-harmful radioactive material and special cameras that can see the radioactive material. Endoscopic retrograde cholangiopancreatogram. This involves inserting a small tube with a camera onthe end (endoscope) through your mouth to look at bile ducts and check for blockages. How is this treated? Treatment for this condition depends on the severity of the condition. Silent gallstones do not need treatment. Treatment may be needed if a blockage causes a gallbladder attack or other symptoms. Treatment may include: Home care, if symptoms are not severe. ?During a simple gallbladder attack, stop eating and drinking for 12 24 hours (except for water andclear liquids). This helps to cool down your gallbladder. After 1 or 2 days, you can start to eata diet of simple or clear foods, such as broths and crackers. ?You may also need medicines for pain or nausea or both. ?If you have cholecystitis and an infection, you will need antibiotics. A hospital stay, if needed for pain control or for cholecystitis with severe infection. Cholecystectomy, or surgery to remove your gallbladder. This is the most common treatment if all other treatments have not worked. Medicines to break up gallstones. These are most effective at treating small gallstones. Medicines may be used for up to 6 12 months. Endoscopic retrograde cholangiopancreatogram. A small basket can be attached to the endoscope and used to capture and remove gallstones, mainly those that are in the common bile duct. Follow these instructions at home: Medicines Take cadb-tcv-rgfsaex and prescription medicines only as told by your health care provider. If you were prescribed an antibiotic medicine, take it as told by your health care provider. Do notstop taking the antibiotic even if you start to feel better. Ask your health care provider if the medicine prescribed to you requires you to avoid driving or using machinery. Eating and drinking Drink enough fluid to keep your urine pale yellow. This is important during a gallbladder attack. Water and clear liquids are preferred. Follow a healthy diet. This includes: ?Reducing fatty foods, such as fried food and foods high in cholesterol. ?Reducing refined carbohydrates, such as white bread and white rice. ?Eating more fiber. Aim for foods such as almonds, fruit, and beans. Alcohol use If you drink alcohol: ?Limit how much you use to: ?0 1 drink a day for non women. ?0 2 drinks a day for men. ?Be aware of how much alcohol is in your drink. In the [place] one drink equals one 12 oz bottle of beer (355 mL), one 5 oz glass of wine (148 mL), or one 1 oz glass of hard liquor (44 mL). General instructions Do not use any products that contain nicotine or tobacco, such as cigarettes, e- cigarettes, and chewing tobacco. If you need help quitting, ask your health care provider. Maintain a healthy weight. Keep all follow-up visits as told by your health care provider. These may include consultations with a surgeon or specialist. This is important. Where to find more information [place] [employer]est[employer]: www.niddk.nih.gov Contact a health care provider if: You think you have had a gallbladder attack. You have been diagnosed with silent gallstones and you develop pain in your abdomen or indigestion. You begin to have attacks more often. You have dark urine or light-colored stools. Get help right away if: You have pain from a gallbladder attack that lasts for more than 2 hours. You have pain in your abdomen that lasts for more than 5 hours or is getting worse. You have a fever or chills. You have nausea and vomiting that do not go away. You develop jaundice. Summary Cholelithiasis is a disease in which gallstones form in the gallbladder. This condition may be caused by an imbalance in the different parts that make bile. This can happenif your bile has too much bilirubin or cholesterol, or does not have enough bile salts. Treatment for gallstones depends on the severity of the condition. Silent gallstones do not need treatment. If gallstones cause a gallbladder attack or other symptoms, treatment usually involves not eating or drinking anything. Treatment may also include pain medicines and antibiotics, and it sometimes includes a hospital stay. Surgery to remove the gallbladder is common if all other treatments have not worked. This information is not intended to replace advice given to you by your health care provider. Make sure you discuss any questions you have with your health care provider. Document Revised: 02/03/2020 Document Reviewed: 02/03/2020 [employer] Patient Education 2022 [employer]. Follow Up Care 07/15/2022 10:10:38 With:trauma clinic Address: [address] [place] [address] 3, second floor, [address] [place] [address]- [phone] When:1 to 2 weeks Comments:plan for telephone follow up 08/05/22. We will call you between the hours of 10 am and 1pm on that day. [facility]05-02-2023 Evaluation + Plan noteExtracted from: Title:ANES Post General Author:Hugo Winston DO Date:07/26/22 Plan Transfer/Discharge: Patient exhibiting no signs of N/V. Hydration status is adequate. Extracted from: Title:Mundo Delgado PRE Author:Luca Winston DO Date:07/26/22 Plan [place] [employer] (ASA) physical status classification: Class III. Anesthetic Preoperative Plan: Anesthesia General. Extracted from: Title:Mundo Delgado PRE Author:Luca Winston DO Date:07/26/22 Plan [place] [employer] (ASA) physical status classification: Class III. Anesthetic Preoperative Plan: Anesthesia General. Future Appointments Appointment Date:08/05/2022 11:00:00 AM Scheduled Provider: Location:[facility] Appointment Type:Trauma Phone Visit ([facility]) Appointment Date:12/01/2022 01:00:00 PM Scheduled Provider:MARYCARMEN NAVA PA-C Location:[facility] Appointment Type:URO Office Visit [facility]04-19-2023 NoteProgress Note: Clinic Visit after hospitalization for acute cholecystitis Gerry Victoria is a 66 year old female who presents to clinic after hospitalization from 05/16-05/25 with acute cholecystitis in the setting of a STEMI. She had a percutaneous cholecystostomy tube placed and then had a subsequent left heart cath which did not reveal any obstructive pathology. She recently underwent a tube injection study through her perc merlyn tube which revealed a persistently obstructed cystic duct. The patient is here today to discuss cholecystectomy Today the patient is doing well. continues to have 50- 100 cc of bilious drainage daily from per merlyn tube. Physical Exam Patient in no distress Abdomen soft, non-distended, nontender RUQ drain in position with alonso bile draining A/P: - Patient doing well - Plan for outpatient lap merlyn - patient requires PSE visit- will then send to schedulers - continue perc merlyn tube until surgery [facility] [id number] History of Present illness Narrative* Nikita Hein MD - 07/13/2022 2:45 PM EDT Progress Note: Clinic Visit after hospitalization for acute cholecystitis Gerry Victoria is a 66 year old female who presents to clinic after hospitalization from 05/16-05/25 with acute cholecystitis in the setting of a STEMI. She had a percutaneous cholecystostomy tube placed and then had a subsequent left heart cath which did not reveal any obstructive pathology. She recently underwent a tube injection study through her perc merlyn tube which revealed a persistently obstructed cystic duct. The patient is here today to discuss cholecystectomy Today the patient is doing well. continues to have 50- 100 cc of bilious drainage daily from per merlyn tube. Physical Exam Patient in no distress Abdomen soft, non-distended, nontender RUQ drain in position with alonso bile draining A/P: - Patient doing well - Plan for outpatient lap merlyn - patient requires PSE visit- will then send to schedulers - continue perc emrlyn tube until surgery Nikita Hein MD documented in this [id number] NoteIR CONSULT Procedure: cholangiogram and percutaneous cholecystotomy tube exchange Date of procedure: 07/05/2022 - patient called nursing center stating she did not have adequate drain care supplies and was not sure how to care for drain - Ellianet Hollis spoke to Td (nurse at contact center) via phone at 21:03 - drain was functioning well (180cc bilious output in last 24 hours) - no fever - instructed patient to return to referring surgery clinic tomorrow for drain care instructions, supplies, and possibly to set up nursing care if patient is unable to care for drain at home Case discussed with IR attending care transitions nurse El Hollis sales vice president PGY-3[facility] [id number] History and physical note* El Hollis MD - 07/06/2022 9:42 PM EDT IR CONSULT Procedure: cholangiogram and percutaneous cholecystotomy tube exchange Date of procedure: 07/05/2022 - patient called nursing center stating she did not have adequate drain care supplies and was not sure how to care for drain - Ellianet Oviedoen spoke to Td (nurse at contact center) via phone at 21:03 - drain was functioning well (180cc bilious output in last 24 hours) - no fever - instructed patient to return to referring surgery clinic tomorrow for drain care instructions, supplies, and possibly to set up nursing care if patient is unable to care for drain at home Case discussed with IR attending care transitions nurse El Hollis sales vice president PGY-3 [facility] Work Phone: [phone]) 667-407104-12-2023 History and physical note* El Hollis MD - 07/06/2022 9:42 PM EDT IR CONSULT Procedure: cholangiogram and percutaneous cholecystotomy tube exchange Date of procedure: 07/05/2022 - patient called nursing center stating she did not have adequate drain care supplies and was not sure how to care for drain - El Hollis spoke to Td (nurse at contact center) via phone at 21:03 - drain was functioning well (180cc bilious output in last 24 hours) - no fever - instructed patient to return to referring surgery clinic tomorrow for drain care instructions, supplies, and possibly to set up nursing care if patient is unable to care for drain at home Case discussed with IR attending care transitions nurse El Hollis sales vice president PGY-3 documented in this [id number] Telephone encounter Note* Telephone Encounter - Kendra Harrison RN - 07/06/2022 8:53 PM EDT Situation: Pt called states she is unsure how to flush gall bladder tube since it was changed yesterday. Background: 07/05/22 Procedure: Cholecystogram with catheter exchange Assessment: See triage Recommendation: Contacted IR care transitions nurse, Dr Hollis advised for pt to contact clinic in morning for syringes, instructions for flushing, and nursing visits if needed. Contacted pt and advised as pre Dr Hollis. Advised to call back tonight for any new sx or concerns. Pt stated understanding, agreeable. Routing to clinic, please contact pt to assist. In order to prevent delays in care, please forward this message to your clinic nurse pool for any required follow up. Thank you. Reason for Disposition [1] Caller has URGENT question AND [2] triager unable to answer question Answer Assessment - Initial Assessment Questions 1. SYMPTOM: What's the main symptom you're concerned about? (e.g., redness, pain, drainage) Pt called states she had gall bladder drainage bag changed yesterday, doesn't know how to flush it and was not given extra syringes so is reusing them. 2. ONSET: When did question start? Is suppose to flush through the valve morning and evening. Did not do it this morning. 3. SURGERY: What surgery was performed? Procedure to change the valve and bag on tube going into gall bladder 4. DATE of SURGERY: When was surgery performed? Yesterday 5. INCISION SITE: Where is the incision located? Top right abdomen 6. REDNESS: Is there any redness at the incision site? If yes, ask: How wide across is the redness? (Inches, centimeters) No 7. PAIN: Is there any pain? If Yes, ask: How bad is it? (Scale 1-10; or mild, moderate, severe) Yes worse when moving around 3-8/10 stabbing pain 8. BLEEDING: Is there any bleeding? If Yes, ask: How much? and Where? No 9. DRAINAGE: Is there any drainage from the incision site? If yes, ask: What color and how much? (e.g., red, cloudy, pus; drops, teaspoon) 90 cc drainage in bag this morning, 70 cc tonight. 10. FEVER: Do you have a fever? If Yes, ask: What is your temperature, how was it measured, and when did it start? No 11. OTHER SYMPTOMS: Do you have any other symptoms? (e.g., shaking chills, weakness, rash elsewhere on body) No Protocols used: Post-Op Incision Symptoms and [id number] Miscellaneous Notes* Telephone Encounter - Kendra Harrison RN - 07/06/2022 8:53 PM EDT Situation: Pt called states she is unsure how to flush gall bladder tube since it was changed yesterday. Background: 07/05/22 Procedure: Cholecystogram with catheter exchange Assessment: See triage Recommendation: Contacted IR care transitions nurse, Dr Hollis advised for pt to contact clinic in morning for syringes, instructions for flushing, and nursing visits if needed. Contacted pt and advised as pre Dr Hollis. Advised to call back [facility] for any new sx or concerns. Pt stated understanding, agreeable. Routing to clinic, please contact pt to assist. In order to prevent delays in care, please forward this message to your clinic nurse pool for any required follow up. Thank you. Reason for Disposition [1] Caller has URGENT question AND [2] triager unable to answer question Answer Assessment - Initial Assessment Questions 1. SYMPTOM: What's the main symptom you're concerned about? (e.g., redness, pain, drainage) Pt called states she had gall bladder drainage bag changed yesterday, doesn't know how to flush it and was not given extra syringes so is reusing them. 2. ONSET: When did question start? Is suppose to flush through the valve morning and evening. Did not do it this morning. 3. SURGERY: What surgery was performed? Procedure to change the valve and bag on tube going into gall bladder 4. DATE of SURGERY: When was surgery performed? Yesterday 5. INCISION SITE: Where is the incision located? Top right abdomen 6. REDNESS: Is there any redness at the incision site? If yes, ask: How wide across is the redness? (Inches, centimeters) No 7. PAIN: Is there any pain? If Yes, ask: How bad is it? (Scale 1-10; or mild, moderate, severe) Yes worse when moving around 3-8/10 stabbing pain 8. BLEEDING: Is there any bleeding? If Yes, ask: How much? and Where? No 9. DRAINAGE: Is there any drainage from the incision site? If yes, ask: What color and how much? (e.g., red, cloudy, pus; drops, teaspoon) 90 cc drainage in bag this morning, 70 cc tonight. 10. FEVER: Do you have a fever? If Yes, ask: What is your temperature, how was it measured, and when did it start? No 11. OTHER SYMPTOMS: Do you have any other symptoms? (e.g., shaking chills, weakness, rash elsewhere on body) No Protocols used: Post-Op Incision Symptoms and [id number]-DK documented in this [id number] Telephone encounter Note* Telephone Encounter - Taniya Coley - 07/06/2022 9:10 AM EDT Sindy Ratliff Patient: Gerry Victoria [phone] Ms. Victoria has an appt grace/ on 07/13/2022 at 2:45 pm. Pt complaining about severe pain last night, when she moved, it was an ache. She did not tell me where the pain was coming from, when I asked her. She stated that today she feels better, but she was concerned about the pain she experienced last night 07/05/2022. [id number] Miscellaneous Notes* Telephone Encounter - Taniya Coley - 07/06/2022 9:10 AM EDT Sindy Ratliff Patient: Gerry Victoria [phone] Ms. Victoria has an appt grace/ on 07/13/2022 at 2:45 pm. Pt complaining about severe pain last night, when she moved, it was an ache. She did not tell me where the pain was coming from, when I asked her. She stated that today she feels better, but she was concerned about the pain she experienced last night 07/05/2022. documented in this [id number] NoteEXAMINATION: XA CHOLANGIOGRAM EXISTING ACCESS (RHETT) 07/05/2022 03:27 PM CLINICAL HISTORY: Rad Procedure required: = cholangiogram through existing perc merlyn tube,eval foropen cystic duct ASSOCIATED DIAGNOSIS: Acute cholecystitis ORDERING PROVIDER: NIKITA HEIN TECHNOLOGISTS NOTE: 10F x 24cm Single Step Drainage Catheter Exchange. INTRA-PROCEDURE MEDS: iohexol (OMNIPAQUE) 350 MG/ML injection 15 mL Route: Other SEDATION TIME: Start time: Stop time: INFORMED CONSENT: Written informed consent was obtained. The procedure, risks, benefits, and alternatives were discussed. All questions were answered. TIMEOUT: Physician led timeout was conducted documenting correct patient, procedure, site, fire risk, antibiotics and allergies. COMPLICATIONS: None ESTIMATED BLOOD LOSS: Less than 10 mL TECHNIQUE: The patient was placed supine on angiography table. The upper abdomen and the existing cholecystostomy catheter were prepped and draped in usual aseptic fashion. Lidocaine was used for local anesthesia. Contrast material was injected and fluoroscopic images obtained. Under fluoroscopic guidance, a glidewire was advanced through the biliary catheter which was removed. A new 10 F All purpose drain catheter was placed over the wire with its pig tail forming in the duodenum. The tube was secured with silk suture and dressed in usual aseptic fashion. Patient tolerated the procedure well without immediate complication and was transferred from the angiography suite in stable condition. FINDINGS: Cholecystogram demonstrates intraluminal location of catheter. There is no definitive flow of contrast into the cystic duct toward the duodenum. IMPRESSION: Uncomplicated cholecystogram with successful exchange of drainage catheter. MACRO: None[facility]04[facility] NotePOST-PROCEDURE NOTE Procedure: Cholecystogram with catheter exchange Pre-operative Diagnosis: History of acute cholecystitis managed with existing catheter. Post-operative Diagnosis: Same as above Attending: Dr. Fernando Distribution Sales Manager: None A TIME OUT was performed prior to the procedure using active communication to verify correct patient, procedure, and site: No Intraoperative Medications: Medications Medication Event Details Admin User Admin Time Complications: None Specimens: N/A Estimated Blood Loss: less than 10 cc Post Procedure Pain Ratin/10 Findings: Uncomplicated exchange of cholecystostomy tube. The cystic duct is not visualized. Plan: Continue to external drainage. Discussed with surgeon Dr. Hein the results of the study. Please see procedure dictation in EPIC/PACS for full procedural details. Marcella Fernando MD [facility]iology[facility]04-11-2023 NoteEXAMINATION: XA CHOLANGIOGRAM EXISTING ACCESS (RHETT) 07/05/2022 03:27 PM CLINICAL HISTORY: Rad Procedure required: = cholangiogram through existing perc merlyn tube,eval foropen cystic duct ASSOCIATED DIAGNOSIS: Acute cholecystitis ORDERING PROVIDER: NIKITA HEIN TECHNOLOGISTS NOTE: 10F x 24cm Single Step Drainage Catheter Exchange. INTRA-PROCEDURE MEDS: iohexol (OMNIPAQUE) 350 MG/ML injection 15 mL Route: Other SEDATION TIME: Start time: Stop time: INFORMED CONSENT: Written informed consent was obtained. The procedure, risks, benefits, and alternatives were discussed. All questions were answered. TIMEOUT: Physician led timeout was conducted documenting correct patient, procedure, site, fire risk, antibiotics and allergies. COMPLICATIONS: None ESTIMATED BLOOD LOSS: Less than 10 mL TECHNIQUE: The patient was placed supine on angiography table. The upper abdomen and the existing cholecystostomy catheter were prepped and draped in usual aseptic fashion. Lidocaine was used for local anesthesia. Contrast material was injected and fluoroscopic images obtained. Under fluoroscopic guidance, a glidewire was advanced through the biliary catheter which was removed. A new 10 F All purpose drain catheter was placed over the wire with its pig tail forming in the duodenum. The tube was secured with silk suture and dressed in usual aseptic fashion. Patient tolerated the procedure well without immediate complication and was transferred from the angiography suite in stable condition. FINDINGS: Cholecystogram demonstrates intraluminal location of catheter. There is no definitive flow of contrast into the cystic duct toward the duodenum. IMPRESSION: Uncomplicated cholecystogram with successful exchange of drainage catheter. MACRO: None [id number] NotePre-Procedure Note HISTORY: Procedure: Cholangiogram via existing access; possible exchange. Indication: History of acute cholecystitis currently managed with a cholecystotomy tube Past Medical History: Diagnosis Date Restless leg Diabetes: no Sleep Apnea: no Excessive Obesity: yes Hepatic Disease: no Renal Disease: no Substance Abuse History: Social History Tobacco Use Smoking status: Former Packs/day: 1.00 Years: 50.00 Pack years: 50.00 Types: Cigarettes Quit date: 2009 Years since quittin.2 History Drug Use Not on file Current Outpatient Medications Medication Sig Dispense Refill rOPINIRole (REQUIP) 2 MG tablet Take 1 Tablet by mouth 4 times daily as needed. 120 Tablet 0 aspirin 81 MG chewable tablet Take 1 Tablet by mouth daily. 30 Tablet 0 metoprolol (TOPROL-XL) 25 mg XL tablet Take 0.5 Tablets by mouth daily. 15 Tablet 0 losartan (COZAAR) 25 MG tablet Take 1 Tablet by mouth daily. 30 Tablet 0 atorvastatin (LIPITOR) 40 mg tablet Take 1 Tablet by mouth daily. 30 Tablet 0 gabapentin (NEURONTIN) 100 MG capsule Take 100 mg by mouth 3 times daily. levothyroxine (SYNTHROID) 50 MCG tablet Take 50 mcg by mouth daily. omeprazole (PRILOSEC) 20 MG capsule Take by mouth. oxybutynin (DITROPAN-XL) 10 MG XL tablet Take 10 mg by mouth. rOPINIRole (REQUIP) 2 MG tablet amitriptyline (ELAVIL) 50 MG tablet Take 50 mg by mouth at bedtime. escitalopram (LEXAPRO) 10 MG tablet Take by mouth. No current facility-administered medications for this encounter. Allergies: Adhesives [bandage tape], Cymbalta [duloxetine hcl], and Lyrica [pregabalin] PHYSICAL EXAM: Blood pressure 119/71, pulse 79, resp. rate 16, height 5' 1 (1.549 m), weight 167 lb (75.8 kg), SpO2 97 %. Lungs: Clear to auscultation bilaterally Heart: Regular rate and rhythm Pertinent Findings: Awake, alert, and oriented Labs Reviewed? Yes Recent Labs: Result for specified components in the past 45 days Component Date/Time Result Units Hemoglobin 06/15/2022 5:35 PM 9.0 g/dL Hematocrit 06/15/2022 5:35 PM 26.4 % Platelet 06/15/2022 5:35 PM 262 K/uL PTT --- not found Protime 06/15/2022 5:35 PM 12.2 sec INR 06/15/2022 5:35 PM 1.08 FXAUN --- not found ANTIFXALMWHE --- not found Creatinine 05/25/2022 6:32 AM 0.76 mg/dL Planned Sedation: Moderate Planned Sedation Medications: VERSED (midazolam) and fentanyl ASA Classification: Class III: Individual with multiple system disease or well controlled major system disease. Disease status limits daily activity. Mallampati Airway Assessment: Class III Only soft palate visible Patient or family history of adverse reactions involving sedation/anesthesia: No patient or family history of adverse reaction PRE-PROCEDURE VERIFICATION: Site of Procedure: not applicable Site Marked pre-procedure: N/A Pre-Procedure Pain Ratin/10 Advanced Directives (Living will, health care power of trial attorney): none Patient Recent Code Status: Prior Code Status For This Procedure: Full Code Marcella Fernando MD [facility]iology[facility]04-11-2023 Telephone encounter Note* Telephone Encounter - Anya Morelos - 07/05/2022 3:11 PM EDT Patient returned clinic call. Informed of message per notes below. Patient verbalized understandingand voiced no further questions. [id number] Miscellaneous Notes* Telephone Encounter - Anya Morelos - 07/05/2022 3:11 PM EDT Patient returned clinic call. Informed of message per notes below. Patient verbalized understandingand voiced no further questions. * Telephone Encounter - Taniya Coley - 07/05/2022 3:07 PM EDT would like Ms. Victoria to be scheduled in the office next Monday. Appt has been made on 07/13/2022 at 2:45 pm. Called patient to schedule her appt, so I left a voice message, I gave her my name, number and timeI left the voice message. documented in this [id number] Miscellaneous Notes* Telephone Encounter - Anya Morelos - 07/05/2022 3:11 PM EDT Patient returned clinic call. Informed of message per notes below. Patient verbalized understandingand voiced no further questions. * Telephone Encounter - Taniya Coley - 07/05/2022 3:07 PM EDT would like Ms. Victoria to be scheduled in the office next Monday. Appt has been made on 07/13/2022 at 2:45 pm. Called patient to schedule her appt, so I left a voice message, I gave her my name, number and timeI left the voice message. Ms. Victoria returned my call and accepted the appt date and time. documented in this [id number] Telephone encounter Note* Telephone Encounter - Taniya Coley - 07/05/2022 3:07 PM EDT would like Ms. Victoria to be scheduled in the office next Monday. Appt has been made on 07/13/2022 at 2:45 pm. Called patient to schedule her appt, so I left a voice message, I gave her my name, number and timeI left the voice message. Ms. Victoria returned my call and accepted the appt date and time. [id number] Note* Post-Procedure Note - Marcella Fernando MD - 07/05/2022 2:44 PM EDT POST-PROCEDURE NOTE Procedure: Cholecystogram with catheter exchange Pre-operative Diagnosis: History of acute cholecystitis managed with existing catheter. Post-operative Diagnosis: Same as above Attending: Dr. Fernando Distribution Sales Manager: None A TIME OUT was performed prior to the procedure using active communication to verify correct patient, procedure, and site: No Intraoperative Medications: Medications Medication Event Details Admin User Admin Time Complications: None Specimens: N/A Estimated Blood Loss: less than 10 cc Post Procedure Pain Ratin/10 Findings: Uncomplicated exchange of cholecystostomy tube. The cystic duct is not visualized. Plan: Continue to external drainage. Discussed with surgeon Dr. Hein the results of the study. Please see procedure dictation in [employer]/PACS for full procedural details. Marcella Fernando MD Radiology [facility] Work Phone: [phone] Miscellaneous Notes* Post-Procedure Note - Marcella Fernando MD - 07/05/2022 2:44 PM EDT POST-PROCEDURE NOTE Procedure: Cholecystogram with catheter exchange Pre-operative Diagnosis: History of acute cholecystitis managed with existing catheter. Post-operative Diagnosis: Same as above Attending: Dr. Fernando Distribution Sales Manager: None A TIME OUT was performed prior to the procedure using active communication to verify correct patient, procedure, and site: No Intraoperative Medications: Medications Medication Event Details Admin User Admin Time Complications: None Specimens: N/A Estimated Blood Loss: less than 10 cc Post Procedure Pain Ratin/10 Findings: Uncomplicated exchange of cholecystostomy tube. The cystic duct is not visualized. Plan: Continue to external drainage. Discussed with surgeon Dr. Hein the results of the study. Please see procedure dictation in [employer]/PACS for full procedural details. Marcella Fernando MD Radiology * Pre-Procedure Note - Marcella Fernando MD - 07/05/2022 1:44 PM EDT Pre-Procedure Note HISTORY: Procedure: Cholangiogram via existing access; possible exchange. Indication: History of acute cholecystitis currently managed with a cholecystotomy tube Past Medical History: Diagnosis Date Restless leg Diabetes: no Sleep Apnea: no Excessive Obesity: yes Hepatic Disease: no Renal Disease: no Substance Abuse History: Social History Tobacco Use Smoking status: Former Packs/day: 1.00 Years: 50.00 Pack years: 50.00 Types: Cigarettes Quit date: 2009 Years since quittin.2 History Drug Use Not on file Current Outpatient Medications Medication Sig Dispense Refill rOPINIRole (REQUIP) 2 MG tablet Take 1 Tablet by mouth 4 times daily as needed. 120 Tablet 0 aspirin 81 MG chewable tablet Take 1 Tablet by mouth daily. 30 Tablet 0 metoprolol (TOPROL-XL) 25 mg XL tablet Take 0.5 Tablets by mouth daily. 15 Tablet 0 losartan (COZAAR) 25 MG tablet Take 1 Tablet by mouth daily. 30 Tablet 0 atorvastatin (LIPITOR) 40 mg tablet Take 1 Tablet by mouth daily. 30 Tablet 0 gabapentin (NEURONTIN) 100 MG capsule Take 100 mg by mouth 3 times daily. levothyroxine (SYNTHROID) 50 MCG tablet Take 50 mcg by mouth daily. omeprazole (PRILOSEC) 20 MG capsule Take by mouth. oxybutynin (DITROPAN-XL) 10 MG XL tablet Take 10 mg by mouth. rOPINIRole (REQUIP) 2 MG tablet amitriptyline (ELAVIL) 50 MG tablet Take 50 mg by mouth at bedtime. escitalopram (LEXAPRO) 10 MG tablet Take by mouth. No current facility-administered medications for this encounter. Allergies: Adhesives [bandage tape], Cymbalta [duloxetine hcl], and Lyrica [pregabalin] PHYSICAL EXAM: Blood pressure 119/71, pulse 79, resp. rate 16, height 5' 1 (1.549 m), weight 167 lb (75.8 kg), SpO2 97 %. Lungs: Clear to auscultation bilaterally Heart: Regular rate and rhythm Pertinent Findings: Awake, alert, and oriented Labs Reviewed? Yes Recent Labs: Result for specified components in the past 45 days Component Date/Time Result Units Hemoglobin 06/15/2022 5:35 PM 9.0 g/dL Hematocrit 06/15/2022 5:35 PM 26.4 % Platelet 06/15/2022 5:35 PM 262 K/uL PTT --- not found Protime 06/15/2022 5:35 PM 12.2 sec INR 06/15/2022 5:35 PM 1.08 FXAUN --- not found ANTIFXALMWHE --- not found Creatinine 05/25/2022 6:32 AM 0.76 mg/dL Planned Sedation: Moderate Planned Sedation Medications: VERSED (midazolam) and fentanyl ASA Classification: Class III: Individual with multiple system disease or well controlled major system disease. Disease status limits daily activity. Mallampati Airway Assessment: Class III Only soft palate visible Patient or family history of adverse reactions involving sedation/anesthesia: No patient or family history of adverse reaction PRE-PROCEDURE VERIFICATION: Site of Procedure: not applicable Site Marked pre-procedure: N/A Pre-Procedure Pain Ratin/10 Advanced Directives (Living will, health care power of trial attorney): none Patient Recent Code Status: Prior Code Status For This Procedure: Full Code Marcella Fernando MD Radiology documented in this [id number] Note* Pre-Procedure Note - Marcella Fernando MD - 07/05/2022 1:44 PM EDT Pre-Procedure Note HISTORY: Procedure: Cholangiogram via existing access; possible exchange. Indication: History of acute cholecystitis currently managed with a cholecystotomy tube Past Medical History: Diagnosis Date Restless leg Diabetes: no Sleep Apnea: no Excessive Obesity: yes Hepatic Disease: no Renal Disease: no Substance Abuse History: Social History Tobacco Use Smoking status: Former Packs/day: 1.00 Years: 50.00 Pack years: 50.00 Types: Cigarettes Quit date: 2009 Years since quittin.2 History Drug Use Not on file Current Outpatient Medications Medication Sig Dispense Refill rOPINIRole (REQUIP) 2 MG tablet Take 1 Tablet by mouth 4 times daily as needed. 120 Tablet 0 aspirin 81 MG chewable tablet Take 1 Tablet by mouth daily. 30 Tablet 0 metoprolol (TOPROL-XL) 25 mg XL tablet Take 0.5 Tablets by mouth daily. 15 Tablet 0 losartan (COZAAR) 25 MG tablet Take 1 Tablet by mouth daily. 30 Tablet 0 atorvastatin (LIPITOR) 40 mg tablet Take 1 Tablet by mouth daily. 30 Tablet 0 gabapentin (NEURONTIN) 100 MG capsule Take 100 mg by mouth 3 times daily. levothyroxine (SYNTHROID) 50 MCG tablet Take 50 mcg by mouth daily. omeprazole (PRILOSEC) 20 MG capsule Take by mouth. oxybutynin (DITROPAN-XL) 10 MG XL tablet Take 10 mg by mouth. rOPINIRole (REQUIP) 2 MG tablet amitriptyline (ELAVIL) 50 MG tablet Take 50 mg by mouth at bedtime. escitalopram (LEXAPRO) 10 MG tablet Take by mouth. No current facility-administered medications for this encounter. Allergies: Adhesives [bandage tape], Cymbalta [duloxetine hcl], and Lyrica [pregabalin] PHYSICAL EXAM: Blood pressure 119/71, pulse 79, resp. rate 16, height 5' 1 (1.549 m), weight 167 lb (75.8 kg), SpO2 97 %. Lungs: Clear to auscultation bilaterally Heart: Regular rate and rhythm Pertinent Findings: Awake, alert, and oriented Labs Reviewed? Yes Recent Labs: Result for specified components in the past 45 days Component Date/Time Result Units Hemoglobin 06/15/2022 5:35 PM 9.0 g/dL Hematocrit 06/15/2022 5:35 PM 26.4 % Platelet 06/15/2022 5:35 PM 262 K/uL PTT --- not found Protime 06/15/2022 5:35 PM 12.2 sec INR 06/15/2022 5:35 PM 1.08 FXAUN --- not found ANTIFXALMWHE --- not found Creatinine 05/25/2022 6:32 AM 0.76 mg/dL Planned Sedation: Moderate Planned Sedation Medications: VERSED (midazolam) and fentanyl ASA Classification: Class III: Individual with multiple system disease or well controlled major system disease. Disease status limits daily activity. Mallampati Airway Assessment: Class III Only soft palate visible Patient or family history of adverse reactions involving sedation/anesthesia: No patient or family history of adverse reaction PRE-PROCEDURE VERIFICATION: Site of Procedure: not applicable Site Marked pre-procedure: N/A Pre-Procedure Pain Ratin/10 Advanced Directives (Living will, health care power of trial attorney): none Patient Recent Code Status: Prior Code Status For This Procedure: Full Code Marcella Fernando MD Radiology [id number] Telephone encounter Note* Telephone Encounter - Taniya Coley - 06/27/2022 1:27 PM EDT Pt called c/o sx of poor leg circulation,and Gaudencio spoke to her to triage the patient. [id number] Miscellaneous Notes* Telephone Encounter - Taniya Coley - 06/27/2022 1:27 PM EDT Pt called c/o sx of poor leg circulation,and Gaudencio spoke to her to triage the patient. documented in this [id number] NoteProgress Note: Clinic Visit after hospitalization for acute cholecystitis Gerry Victoria is a 66 year old female who presents to clinic after hospitalization from 05/16-05/25 with acute cholecystitis in the setting of an acute STEMI. She had a percutaneous cholecystostomy tube placed and then had a subsequent left hear cath which did not reveal any obstructive pathology. Today the patient is doing well. Her drain has been putting out between 30-50 cc of alonso bilious fluid each day. She has been tolerating a regular diet and having normal bowel function. She wants to know when she can get the drain out. Physical Exam Patient in no distress Abdomen soft, non-distended, nontender RUQ drain in position with alonso bile draining A/P: - Patient doing well - Plan for tube injection stud to evaluate and see if cystic duct is open - patient requesting refill of requip from long acting to QID (long acting not covered by her insurance) wrote for 2 mg QID Nikita Hein MDThe [facility]03-25-2023 Note* Addendum Note - Nikita Hein MD - 06/18/2022 3:47 PM EDTAddended by: NIKITA HEIN on: 06/18/2022 03:47 PM Modules accepted: Orders, Level of Service [id number] Miscellaneous Notes* Addendum Note - Nikita Hein MD - 06/18/2022 3:47 PM EDTAddended by: NIKITA HEIN on: 06/18/2022 03:47 PM Modules accepted: Orders, Level of Service documented in this [id number] History of Present illness Narrative* Nikita Hein MD - 06/18/2022 3:37 PM EDT Progress Note: Clinic Visit after hospitalization for acute cholecystitis Gerry Victoria is a 66 year old female who presents to clinic after hospitalization from 05/16-05/25 with acute cholecystitis in the setting of an acute STEMI. She had a percutaneous cholecystostomy tube placed and then had a subsequent left hear cath which did not reveal any obstructive pathology. Today the patient is doing well. Her drain has been putting out between 30-50 cc of alonso bilious fluid each day. She has been tolerating a regular diet and having normal bowel function. She wants to know when she can get the drain out. Physical Exam Patient in no distress Abdomen soft, non-distended, nontender RUQ drain in position with alonso bile draining A/P: - Patient doing well - Plan for tube injection stud to evaluate and see if cystic duct is open - patient requesting refill of requip from long acting to QID (long acting not covered by her insurance) wrote for 2 mg QID Nikita Hein MD documented in this [id number] Telephone encounter Note* Telephone Encounter - Laura Faust - 06/17/2022 11:27 AM EDT Sophy transferred phone call to me, when the patient and I started talk I realized it was the patientI had Sophy working on since Dr. Hein seen her in clinic on [facility]. Sophy said she spoke to patient yesterday, so I just told her what Sophy told me that Dr. Hein will handle the Rx to have the scan done out where she lives and that Sophy will get it to her in the mail by Monday [id number] Miscellaneous Notes* Telephone Encounter - Laura Faust - 06/17/2022 11:27 AM EDT Sophy transferred phone call to me, when the patient and I started talk I realized it was the patientI had Sophy working on since Dr. Hein seen her in clinic on [facility]. Sophy said she spoke to patient yesterday, so I just told her what Sophy told me that Dr. Hein will handle the Rx to have the scan done out where she lives and that Sophy will get it to her in the mail by Monday documented in this [id number] Telephone encounter Note* Telephone Encounter - Taniya Coley - 06/16/2022 2:02 PM EDT Sindy Morales, Patient: Gerry Victoria [phone] Ms. Victoria had a visit with Dr. Conley on Monday06/15/2022, seen by Dr. Hein in yesterday's clinic. Questions: Ultrasound order was placed for Ms. Victoria, do she have to come her to [facility] to have the ultrasound, or can she have the ultrasound done in [place]? (there is not a [facility] in [place]) Medication refill of Ropinirole 2mg 1-tab QD was not received by her pharmacy, can you call in the prescription to my pharmacy at ([facility] ) [phone]?. I am waiting for Carmen, or and or Dr. Conley to respond. Sophy Knowles was told that Dr. Hein was out of town and that she will receive the prescription in the mail.I will call the patient to find out what hospitals she will be going to in [place] [phone] fax:[phone] Gaudencio spoke to her about the prescription and to contact her pharmacy about the ropinirole 2 mg to [facility]. Addendum: IR procedure, Gaudencio will follow-up with [facility] to see if they can do the IR procedure, we will submit or fax orders at that time. [id number] Miscellaneous Notes* Telephone Encounter - Taniya Coley - 06/16/2022 2:02 PM EDT Sindy Morales, Patient: Gerry Victoria [phone] Ms. Victoria had a visit with Dr. Conley on Monday06/15/2022, [facility]. Questions: Ultrasound order was placed for Ms. Victoria, do she have to come her to [facility] to have the ultrasound, or can she have the ultrasound done in [place]? (there is not a [facility] in [place]) Medication refill of Ropinirole 2mg 1-tab QD was not received by her pharmacy, can you call in the prescription to my pharmacy at ([facility] ) [phone]?. I am waiting for Carmen, or and or Dr. Conley to respond. Sophy documented in this [id number] Miscellaneous Notes* Telephone Encounter - Taniya Coley - 06/16/2022 2:02 PM EDT Sindy Morales, Patient: Gerry Victoria [phone] Ms. Victoria had a visit with Dr. Conley on Monday06/15/2022, [facility]. Questions: Ultrasound order was placed for Ms. Victoria, do she have to come her to [facility] to have the ultrasound, or can she have the ultrasound done in [place]? (there is not a [facility] in [place]) Medication refill of Ropinirole 2mg 1-tab QD was not received by her pharmacy, can you call in the prescription to my pharmacy at [facility] ) [phone]?. I am waiting for Carmen, or and or Dr. Conley to respond. Sophy Knowles was told that Dr. Hein was out of town and that she will receive the prescription in the mail.I will call the patient to find out what hospitals she will be going to in [place] [phone] fax:[phone] Gaudencio spoke to her about the prescription and to contact her pharmacy about the ropinirole 2 mg to [facility]. documented in this [id number] Miscellaneous Notes* Telephone Encounter - Taniya Coley - 06/16/2022 2:02 PM EDT Sindy Morales, Patient: Gerry Victoria [phone] Ms. Victoria had a visit with Dr. Conley on Monday06/15/2022, seen by Dr. Hein in yesterday's clinic. Questions: Ultrasound order was placed for Ms. Victoria, do she have to come her to [facility] to have the ultrasound, or can she have the ultrasound done in [place]? (there is not a [facility] in [place]) Medication refill of Ropinirole 2mg 1-tab QD was not received by her pharmacy, can you call in the prescription to my pharmacy at ([facility] ) [phone]?. I am waiting for Carmen, or and or Dr. Conley to respond. Sophy Pt was told that Dr. Hein was out of town and that she will receive the prescription in the mail.I will call the patient to find out what hospitals she will be going to in [place] [phone] fax:[phone] Gaudencio spoke to her about the prescription and to contact her pharmacy about the ropinirole 2 mg to [facility]. Addendum: IR procedure, Gaudencio will follow-up with [facility] to see if they can do the IR procedure, we will submit or fax orders at that time. documented in this [id number] Telephone encounter Note* Telephone Encounter - Maegan Morris RN - 05/27/2022 4:02 PM EST Situation: pt is calling for constipation, difficulty breathing, nausea Background: See nurse triage Assessment: See nurse triage Recommendation: pt advised to go to ER. they verbalized understanding and agreed to plan of care. Routing to providers as FYI Reason for Disposition Difficulty breathing Major surgery in the past month Recent major surgery ( heart cath), SOB, Nausea Answer Assessment - Initial Assessment Questions 1. SYMPTOM: What's the main symptom you're concerned about? (e.g., pain, fever, vomiting) Constipation 2. ONSET: When did symptoms start? Last BM was yesterday 05/26/22 ( but it was vary small) Last regular BM was on 05/25/22 ( when they we discharged) 3. SURGERY: What surgery was performed? Heart cath 4. DATE of SURGERY: When was surgery performed? Heart cath done on 05/24/22 5. ANESTHESIA: What type of anesthesia did you have? (e.g., general, spinal, epidural, local) General 6. PAIN: Is there any pain? If Yes, ask: How bad is it? (Scale 1-10; or mild, moderate, severe) Where the tube is placed in gallbladder, ( currently 0/10, when its tugged on 06/03) sharp and limited, doesn't last 7. FEVER: Do you have a fever? If Yes, ask: What is your temperature, how was it measured, and when did it start? No 8. VOMITING: Is there any vomiting? If yes, ask: How many times? Nausea this am 9. BLEEDING: Is there any bleeding? If Yes, ask: How much? and Where? No bleeding from incisions 10. OTHER SYMPTOMS: Do you have any other symptoms? (e.g., drainage from wound, painful urination, constipation) No drainage from incisions Only thing to note of any of the incisions is that the incisions on right side of neck pt notes a small lump the size of a pin head, ( no pain ( except to touch) or redness around it) sob with movement Denies lightheadedness/ dizziness Denies chest pain Answer Assessment - Initial Assessment Questions 1. RESPIRATORY STATUS: Describe your breathing? (e.g., wheezing, shortness of breath, unable to speak, severe coughing) When pt is up moving around pt gets winded Takes about a one to two minutes of movement to become short of breath Better then it was before the heart cath 2. ONSET: When did this breathing problem begin? Started shortly after pt got home 3. PATTERN Does the difficult breathing come and go, or has it been constant since it started? Comes and goes with movement 4. SEVERITY: How bad is your breathing? (e.g., mild, moderate, severe) - MILD: No SOB at rest, mild SOB with walking, speaks normally in sentences, can lay down, no retractions, pulse < 100. - MODERATE: SOB at rest, SOB with minimal exertion and prefers to sit, cannot lie down flat, speaksin phrases, mild retractions, audible wheezing, pulse 100-120. - SEVERE: Very SOB at rest, speaks in single words, struggling to breathe, sitting hunched forward,retractions, pulse > 120 Mild 5. RECURRENT SYMPTOM: Have you had difficulty breathing before? If Yes, ask: When was the last time? and What happened that time? Yes, previous cardiac issues 6. CARDIAC HISTORY: Do you have any history of heart disease? (e.g., heart attack, angina, bypasssurgery, angioplasty) Patient Active Problem List: Cholecystitis [K81.9] Paroxysmal supraventricular tachycardia (HCC) [I47.1] Mixed hyperlipidemia [E78.2] Overactive bladder [N32.81] Restless legs [G25.81] Spinal stenosis of lumbar region [M48.061] Urinary incontinence [R32] Stasis dermatitis [I87.2] Major depression in partial remission (HCC) [F32.4] Generalized anxiety disorder [F41.1] Gastroesophageal reflux disease [K21.9] Degeneration of intervertebral disc of lumbar region [M51.36] Fibromyalgia [M79.7] Chronic fatigue syndrome [G93.32] Acute abdominal pain [R10.9] Preoperative cardiovascular examination [Z01.810] Regional wall motion abnormality of heart [R93.1] Elevated troponin [R77.8] Takotsubo cardiomyopathy [I51.81] 7. LUNG HISTORY: Do you have any history of lung disease? (e.g., pulmonary embolus, asthma, emphysema) See above 8. CAUSE: What do you think is causing the breathing problem? See above 9. OTHER SYMPTOMS: Do you have any other symptoms? (e.g., dizziness, runny nose, cough, chest pain, fever) See previous assessment 10. : Is there any chance you are ? When was your last menstrual period? Not assessed 11. TRAVEL: Have you traveled out of the country in the last month? (e.g., travel history, exposures) Not assessed Protocols used: Post-Op Symptoms and Locadmzoa-H-ON, Breathing Wjsojmqfvm-L-SS [id number] Miscellaneous Notes* Telephone Encounter - Maegan Morris RN - 05/27/2022 4:02 PM EST Situation: pt is calling for constipation, difficulty breathing, nausea Background: See nurse triage Assessment: See nurse triage Recommendation: pt advised to go to ER. they verbalized understanding and agreed to plan of care. Routing to providers as FYI Reason for Disposition Difficulty breathing Major surgery in the past month Recent major surgery ( heart cath), SOB, Nausea Answer Assessment - Initial Assessment Questions 1. SYMPTOM: What's the main symptom you're concerned about? (e.g., pain, fever, vomiting) Constipation 2. ONSET: When did symptoms start? Last BM was yesterday 05/26/22 ( but it was vary small) Last regular BM was on 05/25/22 ( when they we discharged) 3. SURGERY: What surgery was performed? Heart cath 4. DATE of SURGERY: When was surgery performed? Heart cath done on 05/24/22 5. ANESTHESIA: What type of anesthesia did you have? (e.g., general, spinal, epidural, local) General 6. PAIN: Is there any pain? If Yes, ask: How bad is it? (Scale 1-10; or mild, moderate, severe) Where the tube is placed in gallbladder, ( currently 0/10, when its tugged on 06/03) sharp and limited, doesn't last 7. FEVER: Do you have a fever? If Yes, ask: What is your temperature, how was it measured, and when did it start? No 8. VOMITING: Is there any vomiting? If yes, ask: How many times? Nausea this am 9. BLEEDING: Is there any bleeding? If Yes, ask: How much? and Where? No bleeding from incisions 10. OTHER SYMPTOMS: Do you have any other symptoms? (e.g., drainage from wound, painful urination, constipation) No drainage from incisions Only thing to note of any of the incisions is that the incisions on right side of neck pt notes a small lump the size of a pin head, ( no pain ( except to touch) or redness around it) sob with movement Denies lightheadedness/ dizziness Denies chest pain Answer Assessment - Initial Assessment Questions 1. RESPIRATORY STATUS: Describe your breathing? (e.g., wheezing, shortness of breath, unable to speak, severe coughing) When pt is up moving around pt gets winded Takes about a one to two minutes of movement to become short of breath Better then it was before the heart cath 2. ONSET: When did this breathing problem begin? Started shortly after pt got home 3. PATTERN Does the difficult breathing come and go, or has it been constant since it started? Comes and goes with movement 4. SEVERITY: How bad is your breathing? (e.g., mild, moderate, severe) - MILD: No SOB at rest, mild SOB with walking, speaks normally in sentences, can lay down, no retractions, pulse < 100. - MODERATE: SOB at rest, SOB with minimal exertion and prefers to sit, cannot lie down flat, speaksin phrases, mild retractions, audible wheezing, pulse 100-120. - SEVERE: Very SOB at rest, speaks in single words, struggling to breathe, sitting hunched forward,retractions, pulse > 120 Mild 5. RECURRENT SYMPTOM: Have you had difficulty breathing before? If Yes, ask: When was the last time? and What happened that time? Yes, previous cardiac issues 6. CARDIAC HISTORY: Do you have any history of heart disease? (e.g., heart attack, angina, bypasssurgery, angioplasty) Patient Active Problem List: Cholecystitis [K81.9] Paroxysmal supraventricular tachycardia (HCC) [I47.1] Mixed hyperlipidemia [E78.2] Overactive bladder [N32.81] Restless legs [G25.81] Spinal stenosis of lumbar region [M48.061] Urinary incontinence [R32] Stasis dermatitis [I87.2] Major depression in partial remission (HCC) [F32.4] Generalized anxiety disorder [F41.1] Gastroesophageal reflux disease [K21.9] Degeneration of intervertebral disc of lumbar region [M51.36] Fibromyalgia [M79.7] Chronic fatigue syndrome [G93.32] Acute abdominal pain [R10.9] Preoperative cardiovascular examination [Z01.810] Regional wall motion abnormality of heart [R93.1] Elevated troponin [R77.8] Takotsubo cardiomyopathy [I51.81] 7. LUNG HISTORY: Do you have any history of lung disease? (e.g., pulmonary embolus, asthma, emphysema) See above 8. CAUSE: What do you think is causing the breathing problem? See above 9. OTHER SYMPTOMS: Do you have any other symptoms? (e.g., dizziness, runny nose, cough, chest pain, fever) See previous assessment 10. : Is there any chance you are ? When was your last menstrual period? Not assessed 11. TRAVEL: Have you traveled out of the country in the last month? (e.g., travel history, exposures) Not assessed Protocols used: Post-Op Symptoms and Haxmwhqel-S-DZ, Breathing Jsipzuqhhv-O-YI documented in this [id number] NoteDISCHARGE SUMMARY [address] [place] [address] Gerry Victoria Date of : 1955 66 year oldfemale Attending Ward Graves MD Date of Admission 05/16/2022 Date of Discharge 05/25/2022 [facility] DIVISION OF ACUTE CARE SURGERY EMERGENCY GENERAL SURGERY FINAL DIAGNOSES: Hospital Problems as of 05/25/2022 * (Principal) Cholecystitis Acute abdominal pain Preoperative cardiovascular examination Regional wall motion abnormality of heart Elevated troponin Takotsubo cardiomyopathy PROCEDURES: 05/17/2022: US guided percutaneous cholecystostomy tube placement by IR 05/23/2022: Left cardiac catheterization by Cardiology DISCHARGE MEDICATIONS: Current Discharge Medication List START taking these medications Details acetaminophen (TYLENOL) 325 mg tablet Take 2 Tablets by mouth every 6 hours as needed for up to 7 days. Qty: 56 Tablet, Refills: 0 aspirin 81 MG chewable tablet Take 1 Tablet by mouth daily. Qty: 30 Tablet, Refills: 0 metoprolol (TOPROL-XL) 25 mg XL tablet Take 0.5 Tablets by mouth daily. Qty: 15 Tablet, Refills: 0 losartan (COZAAR) 25 MG tablet Take 1 Tablet by mouth daily. Qty: 30 Tablet, Refills: 0 atorvastatin (LIPITOR) 40 mg tablet Take 1 Tablet by mouth daily. Qty: 30 Tablet, Refills: 0 CONTINUE these medications which have NOT CHANGED Details gabapentin (NEURONTIN) 100 MG capsule Take 100 mg by mouth 3 times daily. levothyroxine (SYNTHROID) 50 MCG tablet Take 50 mcg by mouth daily. omeprazole (PRILOSEC) 20 MG capsule Take by mouth. oxybutynin (DITROPAN-XL) 10 MG XL tablet Take 10 mg by mouth. rOPINIRole (REQUIP) 2 MG tablet amitriptyline (ELAVIL) 50 MG tablet Take 50 mg by mouth at bedtime. escitalopram (LEXAPRO) 10 MG tablet Take by mouth. STOP taking these medications rosuvastatin (CRESTOR) 10 MG tablet Comments: Reason for Stopping: atenolol (TENORMIN) 50 mg tablet Comments: Reason for Stopping: OARRS reviewed. Overdose risk score 260. Patient not receiving any new prescriptions for controlled substances this admission. REASON FOR HOSPITALIZATION: Gerry Victoria is a 66 year old female with PMH of hypertension, RLS, GERD, and h/o paroxysmal SVT who presented to [facility] with epigastric pain with nausea and vomiting. Patient describes onset of pain on prior day that has increased since then. Shortly after onset of pain, patient experienced nausea and persistent vomiting, now unable to tolerate PO intake. Denies fevers, chills. She presented to [facility] where EKG demonstrated 'hyperacute T waves' in multiple leads without evidence of STEMI. Troponin originally 139, then 381 on repeat. CTA was performed and did not reveal dissection or PE. CT did demonstrate acute inflammation of the gallbladder with a stone at the neck. A central line was placed for resuscitation purposes and the patient was transferred to [facility] for further evaluation. Prior to transfer, lab work without leukocytosis (10.7) and LFTs/Lipase without abnormality. ACS consulted upon arrival to [facility] for cholecystitis. She was admitted to the SDU for telemetry under EGS but transferred to [facility] on 05/20/22 SIGNIFICANT FINDINGS: N/A Incidental findings reviewed by AEM on 05/24/22. No incidental findings to discuss. HOSPITAL COURSE: 05/16/2022: Transferred from [facility] ED with cholecystitis, up-trending troponin, and unclear EKG findings. Up-trending leukocytosis, down-trending troponin by PM. Cardiology following. Zosyn started. 05/17/2022: rCT with worsening gallbladder inflammation w/o free air or rupture. Percutaneous cholecystotomy tube placement with IR. 05/19/2022: Bilious emesis, NGT placed 05/20/2022: Transferred to [facility] 05/21/2022: Zosyn course completed (4 days s/p drain) 05/22/2022: YANN, ongoing bilious NGT output 05/23/2022: [facility] with mild non-obstructive diffuse coronary artery disease. NGT placed to gravity. BM x2 05/24/2022: NGT removed. Patient tolerating regular diet. BM x2. Voiding spontaneously. Pain controlled. Ambulating without assistance. Left internal jugular catheter removed. Did not leave because she did not have a ride 05/25/2022: Discharged home. The patient was seen and examined on the day of discharge with the following findings: BP 148/83 (BP Location: right arm) Pulse 100 Temp 98.4 ???F (36.9 ???C) (Oral) Resp 18 Ht 5' 1 (1.549 m) Wt 159 lb 9.8 oz (72.4 kg) SpO2 99% BMI 30.16 kg/m??? -General - Seen resting supine in bed in NAD -Neurologic - No focal deficits, clear speech -Cardiovascular - not tachycardic per chart review -Respiratory - breathing comfortably on room air, saturating 100% per chart review -Abdomen - Soft, mildly tender to RUQ around drain incision, ND, not peritonitic, perc merlyn in place with clean dressing over top with bilious output, NGT in place -Psychiatric - normal affect -Extremities - Chronic venous stasis t (more content not included)...[facility] [id number] NoteDISCHARGE SUMMARY [address] [address] Gerry Victoria Date of : 1955 66 year oldfemale Attending Ward Graves MD Date of Admission 05/16/2022 Date of Discharge 05/24/2022 [facility] DIVISION OF ACUTE CARE SURGERY EMERGENCY GENERAL SURGERY FINAL DIAGNOSES: Hospital Problems as of 05/24/2022 * (Principal) Cholecystitis Acute abdominal pain Preoperative cardiovascular examination Regional wall motion abnormality of heart Elevated troponin Takotsubo cardiomyopathy PROCEDURES: 05/17/2022: US guided percutaneous cholecystostomy tube placement by IR 05/23/2022: Left cardiac catheterization by Cardiology DISCHARGE MEDICATIONS: Current Discharge Medication List START taking these medications Details acetaminophen (TYLENOL) 325 mg tablet Take 2 Tablets by mouth every 6 hours as needed for up to 7 days. Qty: 56 Tablet, Refills: 0 aspirin 81 MG chewable tablet Take 1 Tablet by mouth daily. Qty: 30 Tablet, Refills: 0 metoprolol (TOPROL-XL) 25 mg XL tablet Take 0.5 Tablets by mouth daily. Qty: 15 Tablet, Refills: 0 losartan (COZAAR) 25 MG tablet Take 1 Tablet by mouth daily. Qty: 30 Tablet, Refills: 0 atorvastatin (LIPITOR) 40 mg tablet Take 1 Tablet by mouth daily. Qty: 30 Tablet, Refills: 0 CONTINUE these medications which have NOT CHANGED Details gabapentin (NEURONTIN) 100 MG capsule Take 100 mg by mouth 3 times daily. levothyroxine (SYNTHROID) 50 MCG tablet Take 50 mcg by mouth daily. omeprazole (PRILOSEC) 20 MG capsule Take by mouth. oxybutynin (DITROPAN-XL) 10 MG XL tablet Take 10 mg by mouth. rOPINIRole (REQUIP) 2 MG tablet amitriptyline (ELAVIL) 50 MG tablet Take 50 mg by mouth at bedtime. escitalopram (LEXAPRO) 10 MG tablet Take by mouth. STOP taking these medications rosuvastatin (CRESTOR) 10 MG tablet Comments: Reason for Stopping: atenolol (TENORMIN) 50 mg tablet Comments: Reason for Stopping: OARRS reviewed. Overdose risk score 260. Patient not receiving any new prescriptions for controlled substances this admission. REASON FOR HOSPITALIZATION: Gerry Victoria is a 66 year old female with PMH of hypertension, RLS, GERD, and h/o paroxysmal SVT who presented to [facility] with epigastric pain with nausea and vomiting. Patient describes onset of pain on prior day that has increased since then. Shortly after onset of pain, patient experienced nausea and persistent vomiting, now unable to tolerate PO intake. Denies fevers, chills. She presented to [facility] where EKG demonstrated 'hyperacute T waves' in multiple leads without evidence of STEMI. Troponin originally 139, then 381 on repeat. CTA was performed and did not reveal dissection or PE. CT did demonstrate acute inflammation of the gallbladder with a stone at the neck. A central line was placed for resuscitation purposes and the patient was transferred to [facility] for further evaluation. Prior to transfer, lab work without leukocytosis (10.7) and LFTs/Lipase without abnormality. ACS consulted upon arrival to [facility] for cholecystitis. She was admitted to the SDU for telemetry under EGS but transferred to [facility] on 05/20/22 SIGNIFICANT FINDINGS: N/A Incidental findings reviewed by AEM on 05/24/22. No incidental findings to discuss. HOSPITAL COURSE: 05/16/2022: Transferred from [facility] ED with cholecystitis, up-trending troponin, and unclear EKG findings. Up-trending leukocytosis, down-trending troponin by PM. Cardiology following. Zosyn started. 05/17/2022: rCT with worsening gallbladder inflammation w/o free air or rupture. Percutaneous cholecystotomy tube placement with IR. 05/19/2022: Bilious emesis, NGT placed 05/20/2022: Transferred to [facility] 05/21/2022: Zosyn course completed (4 days s/p drain) 05/22/2022: YANN, ongoing bilious NGT output 05/23/2022: [facility] with mild non-obstructive diffuse coronary artery disease. NGT placed to gravity. BM x2 05/24/2022: NGT removed. Patient tolerating regular diet. BM x2. Voiding spontaneously. Pain controlled. Ambulating without assistance. Left internal jugular catheter removed. Discharged home. The patient was seen and examined on the day of discharge with the following findings: BP 136/72 (BP Location: left arm) Pulse 98 Temp 98.9 ???F (37.2 ???C) (Oral) Resp 18 Ht 5' 1 (1.549 m) Wt 159 lb 9.8 oz (72.4 kg) SpO2 99% BMI 30.16 kg/m??? -General - Seen resting supine in bed in NAD -Neurologic - No focal deficits, clear speech -Cardiovascular - not tachycardic per chart review -Respiratory - breathing comfortably on room air, saturating 100% per chart review -Abdomen - Soft, mildly tender to RUQ around drain incision, ND, not peritonitic, perc merlyn in place with clean dressing over top with bilious output, NGT in place -Psychiatric - normal affect -Extremities - Chronic venous stasis to bilateral LE Condition at discharge: improved Diet: (more content not included)...[facility] [id number] Note PHYSICAL THERAPY PROGRESS SUMMARY Patient seen from 932 to 947 on GC5E unit for 15 minute treatment. SUBJECTIVE: Patient Subjective/Goals: It's a good day! OBJECTIVE: Appearance: Pt in bed upon entering room w/ IR drain intact Behavior: alert,cooperative Pain: Site/Location: pt does not report pain; Pain Scale: 0/10 Pain Relief Interventions Implemented: None required; No pain at this time Mobility NA Dep Max Mod Min CG CS DS NE I Comment Supine to sit x Via rolling Transfers Sit to/from stand Walking on level surface x 350 feet with rolling walker for 250 feet and w/o device for 100 feet Gait Analysis: steady pace, no LOB Stairs x Pt does not have stairs at home Stand to sit x Sit to Supine x Functional Endurance: improving Patient/Family Education: Patient instructed in calling for nursing assist when ready to return to bed. Pt encouraged to ambulate on unit w/ staff/visitors for remainder of acute stay. Pt aware of functional clearance for home.Pt given opportunity to ask questions. Pt denies functional concerns . Patient up in chair with call light in reach. DME: With Patients permission ordered no equipment via [employer]. If any questions contact [facility] DME Provider at [phone]. Pt has rolling walker to use if needed 6 Clicks Basic Mobility PT 05/24/2022 Difficulty turning over in bed 4 Difficulty sitting down and standing up from a chair with arms 4 Difficulty moving from lying on back to sitting on the side of the bed 4 Help from another person moving to and from bed to a chair 4 Help from another person to walk in hospital room 4 Help from another person climbing 3-5 steps with a railing 3 PT 6 Clicks Score 23 6 Click Score Guidelines: 1 - Total = Requires total assistance, or cannot do at all. 2 - A lot = Requires a lot of help (maximun to moderate assistance) Can use assistive devices. 3 - A little = Requires a little help (supervision, minimal assistance) Can use assistive devices. 4 - None = Does not require any help and does the activity independently. Can use assistive devices. ASSESSMENT: Pt has achieved acute PT goals and is functionally appropriate to return home w/ family assist prn when medically ready. Goals (to be achieved by discharge from acute care): ACHIEVED Patient will achieve acceptable level of pain control to allow participation in therapy. Patient will increase bed mobility to independent Patient will perform sit to/from stand transfer and bed to/from chair transfer with LRAD with modified independent Patient will ambulate 150 feet with LRAD with modified independent Patient will increase ROM/Strength/Endurance/Balance to allow for above goals. Patient/Family independent with exercise program/precautions. PLAN: Will discuss supervising PT d/c'ing pt from acute PT service d/t achieving PT goals. Dara SOSA Beeper #[phone] Agree with above; D/C Acute PT this date 2* to modified (I) level of function. Tawny Peñaloza, PT, MPT (B) [phone] NA = Not Assessed, I = Independent, NE = Modified Independent, Sup = Supervised, Set up = Physical Assistance for Set-up Only, Min = Minimal Assistance, Mod = Moderate Assistance, Max = Maximal assistance; Dep = Dependent; AROM = Active Range of Motion; PROM = Passive Range of Motion; MMT = Manual Muscle TestOhio[facility] [employer] [id number] Rosaura Victoria [id number] Procedure Indication: Other: Myocardial injury due to demand supply mismatch, acute cholecystitis Procedures Performed: Moderate Sedation and Left Heart Catheterization with Coronary Angiograms Brief Description of Findings: Angio findings: Mild non-obstructive diffuse coronary artery disease. LVEDP: 5-7 mm Hg Intervention(s): None Type of Sedation used: Moderate Sedation: Fentanyl, Versed Access: Right Radial artery EBL: 5 mL Complications: None Post-op issues/signout: Closure device: Radial compression band: Air in radial compression band 14 mL Other signout: none DAPT needed: No Anticoagulation Plan: None [facility] [id number] NoteOCCUPATIONAL THERAPY INITIAL EVALUATION Patient seen from 0850 to 0928 on GC 5E unit for 38 minutes. Reason for Admit: 66 y.o. adm with abdominal pain, concern for NSTEMI Diagnosis: Cholecystitis Impacted gallstone in neck of gallbladder T2MI, elevated troponin Precautions/Activity Order: moderate falls, full code, NPO, progressive mobility, I+O Procedures this admit: 05/17/22 - US guided percutaneous cholecystostomy tube placement Past Medical and Surgical History: PMH: Past Medical History: Diagnosis Date Restless leg PSH: Past Surgical History: Procedure Laterality Date TOTAL ABDOMINAL HYSTERECTOMY W/WO REMOVAL TUBE(S)/OVARY(S) SUBJECTIVE: Patient Subjective: This is my Shailesh bag! Re: pt commenting on surgical drain Patient Identified Goal(s): wash self, return home Home Living Situation Prior Functional Status: Pt reports independence with ADLS and IADLs at baseline. Pt drives and manages her own medications. Pt ambulates without AD. Pt denies falls in the past 6 months. Home: Pt lives alone in a ranch home. 0 steps to enter. 0 steps to bedroom/bathroom. Assistance available: Pt reports her sister is able to provide intermittent assistance. Equipment available: rollator, cane, shower chair, elevated toilet, RW OBJECTIVE: Patient Identification: patient verbalizing his/her name and date of . Risks and benefits of occupational therapy: Patient informed of risks and benefits of treatment Appearance: supine in bed on arrival, RITia NG on suction, surgical drain to R abdomen Alertness: WFL Affect: WNL Cooperation/Behavior: Appropriate dialogue with therapist and Pleasant and cooperative Communication: WFL Pain: Pain rating: unrated/10, Location: abdomen, pt reports nausea Pain Relief Interventions Implemented: Positioning and RN aware and reports patient received medication according to time schedule Self Care: Assistance Level Dep Max Mod Min CG CS DS NE I Set-Up Comment Feeding x Anticipated, NPO Grooming/Hygiene x Hair grooming in seated Bathing:UB x Sponge bathing in seated. Assist to wash back with washcloth Bathing:LB x Sponge bathing ins eated/standing. Supervision for balance in standing while washing perineal region Dressing:UB x Doff/don gown in seated/standing Dressing: LB x Doff/don underwear in seated/standing. Good ability to reach to distal LB and complete partial figure four positioning Toileting x Pt declines at this time Transfers/Bed Mobility: Assistance Level Dep Max Mod Min CG CS DS NE I Set-Up Comment Toilet Transfers x Anticipated Bed Transfers x Seated to standing from EOB with RW. In room and around unit mobility with RW. No LOB. Returned to seated in bedside chair at end of session Bed Mobility x Supine to seated EOB with log roll technique Patient remained seated in bedside chair end of session. Call nix and telephone within reach. Patient instructed to call for staff assist when ready to return to bed and for all mobility. RN aware of patient location and mobility status. Endurance for Self Care: Good Static Sitting Balance: Good Dynamic Sitting Balance: Good UE Motor: BUE AROM grossly WFL to complete ADLs Vision/Perception: WFL with glasses Cognition: Orientation: Oriented to person, place, and date Follows Commands: WFL Attention: WNL Memory: WFL Problem Solving: WFL Safety/Judgement: WFL Sequencing: WFL Other Specialized Tests: None Patient/Family Education: Instructed patient in roles of therapy and Patient instructed in d/c planning, log roll technique Patient up in chair with call light in reach. 6 Clicks Daily Activity OT 05/22/2022 Help from another person Eating meals 4 Help from another person taking care of personal grooming 4 Help from another person bathing 3 Help from another person putting on and taking off regular upper body clothing 3 Help from another person putting on and taking off regular lower body clothing 3 Help from another person toileting 4 OT 6 Clicks Score 21 6 Click Score Guidelines: 1 - Unable = Total/Dependent Assist 2 - A lot = Max/Moderate Assist 3 - A little = Minimum/Contact Guard Assist/Supervision 4 - Non = Modified [place]/Independent ASSESSMENT: Patient is functionally appropriate for discharge home once medically cleared. Will continue to follow patient while in hospital as appropriate. Rehabilitation Potential: Good Problem List: decreased ADLs, decreased endurance, decreased functional transfers/mobility, decreased home management tasks/IADLs, decreased functional activity tolerance, and increased pain Goals (to be achieved by discharge from acute care): Patient will dress upper body with Modified Independent Patient will dress lower body with Modified Independent Patient will perform bed transfers with Modified Independent Patient will perform commode transfers with Modified Independent Patient will (more content not included)...[facility] [id number] Note PHYSICAL THERAPY PROGRESS SUMMARY Patient seen from 1:27pm to 1:47pm on GC5E unit for 20 minute treatment. SUBJECTIVE: Patient Subjective/Goals: I'm glad you're here. OBJECTIVE: Appearance: IV, Drain-IR x 1, and NG to wall suction (clamped for session) Behavior: Awake, Cooperative Pain: Site/Location: none noted during session Mobility NA Dep Max Mod Min CG CS DS NE I Comment Supine to sit x Transfers x Sit to/from stand x Walking on level surface x x 100 feet with rolling walker with CG/CS and 10 feet x 2 with RW to bathroom with CS. Patient requiring CGA initially and progressing to CS during session Gait Analysis: slow tammy and Decreased step length Bilateral Stand to sit x Sit to Supine x Functional Endurance: improving Sitting Balance: Static:good Dynamic:good Standing Balance: Static: good with rolling walker Dynamic:good with rolling walker Patient/Family Education: Instructed Patient in roles of therapy. Patient up in bed with call light in reach. DME: With Patients permission ordered no equipment via Fix[employer] Order. If any questions contact [facility] DME Provider at [phone]. 6 Clicks Basic Mobility PT 05/20/2022 Difficulty turning over in bed 4 Difficulty sitting down and standing up from a chair with arms 3 Difficulty moving from lying on back to sitting on the side of the bed 4 Help from another person moving to and from bed to a chair 3 Help from another person to walk in hospital room 3 Help from another person climbing 3-5 steps with a railing 2 PT 6 Clicks Score 19 6 Click Score Guidelines: 1 - Total = Requires total assistance, or cannot do at all. 2 - A lot = Requires a lot of help (maximun to moderate assistance) Can use assistive devices. 3 - A little = Requires a little help (supervision, minimal assistance) Can use assistive devices. 4 - None = Does not require any help and does the activity independently. Can use assistive devices. ASSESSMENT: Patient is functionally appropriate for discharge home once medically cleared. Will continue to follow patient while in hospital as appropriate. Goals (to be achieved by discharge from acute care): ONGOING Patient will achieve acceptable level of pain control to allow participation in therapy. Patient will increase bed mobility to independent MET Patient will perform sit to/from stand transfer and bed to/from chair transfer with LRAD with modified independent Patient will ambulate 150 feet with LRAD with modified independent Patient will increase ROM/Strength/Endurance/Balance to allow for above goals. Patient/Family independent with exercise program/precautions. PLAN: Will follow established Plan of Care. Lizz Chandler, PT NA = Not Assessed, I = Independent, NE = Modified Independent, Sup = Supervised, Set up = Physical Assistance for Set-up Only, Min = Minimal Assistance, Mod = Moderate Assistance, Max = Maximal assistance; Dep = Dependent; AROM = Active Range of Motion; PROM = Passive Range of Motion; MMT = Manual Muscle TestThe [facility] [id number] NoteSICU Progress Note Gerry Victoria [id number] LOS: 4 days : Interval History/Events: Pain improved Started vomiting this am Passing gas Background: Gerry Victoria is a 66 year old female with PMH of hypertension, RLS, GERD who presented to [facility] with progressive worsening epigastric pain with nausea and vomiting for the past day. Denies fevers, CP, dyspnea. Found to have elevated T waves and uptrending tropopnins. CT ab with acute inflammation of the gallbladder with a stone at the neck and transferred to [facility]. RUQ US with impacted gallstone at gallbladder neck. Cards consulted, admitted to [facility]. Hospital Course: 05/16/22- cards c/s, high risk for lap merlyn 05/17/22- IR perc cholecystostomy Last 24hours: NAEO In: 3720 (46.5 mL/kg) [P.O.:320; I.V.:3300 (1.7 mL/kg/hr)] Out: 2715 (33.9 mL/kg) [Urine:2065 (1.1 mL/kg/hr); Drainage:650] Net: 1005 Weight: 80 kg Stool: n/a Drain: n/a NGT/OGT: 50 Medications: Scheduled magnesium sulfate 2,000 mg One Time Dose potassium chloride 20 mEq One Time Dose rOPINIRole 4 mg At Bedtime insulin lispro 2-9 Units Every 4 hours enoxaparin 0.5 mg/kg 2x Daily piperacillin/tazobactam 4.5 g Q8H Antibiotic acetaminophen 650 mg Every 4 hours metoprolol 25 mg Every 12 hours gabapentin 100 mg 3x Daily levothyroxine 50 mcg Daily aspirin 81 mg Daily atorvastatin 40 mg Daily esomeprazole 40 mg Daily 30 min before breakfast docusate sodium 100 mg 2x Daily senna 8.6 mg At Bedtime PRN benzocaine 4x Daily PRN dextrose iv for hypoglycemia orderable 125 mL PRN Or glucagon 1 mg PRN Or dextrose 15 g of glucose PRN Or dextrose 30 g of glucose PRN ondansetron 4 mg Q4H PRN trimethobenzamide 200 mg Q6H PRN oxyCODONE 5 mg Q4H PRN IV dextrose 5 % and lactated ringers 100 mL/hr at 05/20/22 0700 Labs: Basic Metabolic Panel Na K Cl CO2 Gap Glu BUN Cr Ca Mg PO4 05/20/22216 1.8 05/20/22216 137 3.8 100 30 11 105 5 0.71 7.6 05/19/225 1.8 05/19/22354 139 3.5 102 31 10 120 8 0.74 7.7 05/18/228 2.3 05/18/22227 136 3.9 101 27 12 77 12 0.78 7.7 CBC/PT/INR WBC RBC Hgb Hct MCV RDW Plt PT aPTT INR 05/20/22216 4.7 3.36 9.2 27.9 83 15.3 231 05/19/22 0355 5.3 3.41 9.4 28.2 83 15.6 199 05/18/22 0228 9.4 3.45 10.1 28.2 82 15.3 177 WBC/Diff None Cardiac None Most Recent Ventilator Settings: Arterial Blood Gases None Urine Culture (last 1 year) None Blood Culture Blood culture 05/17/22 0949 No growth to date, culture reincubated [P] 05/17/22 0949 No growth to date, culture reincubated [P] [P] - Preliminary Result Pyogen Culture Pyogen culture 05/17/22 1315 Rare Lactobacillus species Comment: No further workup [P] [P] - Preliminary Result Sputum Culture None Physical Exam: Vitals: Vital sign ranges over the past 24 hours (retrieved 05/20/2022 at 6:51 AM): Tmax (24 hours): 37.2 ???C (99 ???F) Pulse Av.9 Min: 60 Max: 97 Systolic (24hrs), Av , Min:115 , Max:160 Diastolic (24hrs), Av, Min:61, Max:107 MAP (mmHg) Av.2 mmHg Min: 79 mmHg Max: 116 mmHg Resp Av.1 Min: 10 Max: 23 SpO2 Av.4 % Min: 88 % Max: 100 % Neuro: A AND Ox3 CV: RRR Pulm: CTAB on ra Abdomen: still diffusely tender to palpation Extremities: no peripheral edema Other: n/a Assessment/Plan: 66 year old female w/ PMHx of HTN, HLD, fibromyalgia, RLS, presenting with RUQ pain 2/2 acute cholecystitis and elevated troponins. NEURO: Pain/Sedation -Tylenol q4h scheduled -Oxy 5mg q4h prn -IV dilaudid prn for breakthrough -hold home TCA and SSRI for qtc #RLS -Continue home ropinirole, gabapentin PULM: CTA at OSH without dissection/PE CXR without focal consolidation, no pneumothorax - respiratory certified court/medical interpreter protocol, BPH, IS CARD: #T2MI #possible CAD Troponins elevated to 700, repeats downtrending EKG with tall T waves Likely demand in setting of acute illness, no need for heparin gtt at this time Echo with focal LV dysfunction concerning for underlying CAD Cardiology deemed high - immediate risk for surgical intervention, will need LHC after acute presentation either outpatient or prior to discharge -Cardiology consulted - cath monday -ASA, statin, lopressor with parameters -Continue tele - patient clear for LHC from SICU perspective today. Please have NGT connected to suction during cath to prevent aspiration - Patient is OK for DAPT if needed and is OK for goal ACT 250 during PCI - needs LHC prior to having cholecystectomy. Cholecystectomy not necessary in short term given source control and symptomatic improvement with decompression via drain. - from surgical aspect patient can be on uninterrupted DAPT for at least 28 days or longer GI: #acute cholecystitis CT ab/pel from OSH with acute inflammation of the gallbladder with a stone at the neck RUQ US with (more content not included)...The [facility] [id number] Note 05/19/22 1540 Assessment and Discharge Planning Evaluation READMISSION LESS THAN 30 DAYS No READMISSION RISK SCORE IS Rising Risk Reason for Readmisson Risk Score Current medication orders INTERVIEWED Chart Review Name n/a COGNITIVE STATUS Oriented to person, place, time and location LIVING SITUATION Home - Own PCP VERIFIED No ADMISSION INSURANCE Medicare Medicare HMO (comment) ([employer]) HOME HEALTH CARE PRIOR TO ADMISSION No Dialysis No TENTATIVE DISCHARGE PLAN Home - Own READMISSION RISK SCORE SHOULD BE Remain Unchanged REASON READMISSION SCORE NEEDS ADJUSTED n/a SDOH Completed? No PT reccs anticipate pt to be appropriate for home-going. Pt reportedly has sister who can provide PRN assistance. Medical team to please notify SW if any SW or DC concerns arise. Annabelle Connor, [facility], LSWT [facility] [id number] NotePHYSICAL THERAPY PROGRESS SUMMARY PT tx cleared by RN. Patient seen from 1354 to 1417 on 5W unit for 23 minute treatment. SUBJECTIVE: Patient Subjective/Goals: oh, look at you! Re: PT untangling lines and wires. OBJECTIVE: Appearance: Resting in bed upon arrival, BP cuff, air pollution control engineer, Pulse Oximeter, IV, Drain x1, Fu, and R CVC triple lumen. Behavior: Awake, Cooperative, Pleasant, A AND Ox 3 Pain: Site/Location: none; Pain Scale: 0/10 does note discomfort due to recent NG tube placed, RN aware, meds given. Pain Relief Interventions Implemented: None required; No pain at this time Vitals Pre-Mobility Post Mobility Oxygen 97% 95% Heart Rate 66 bpm 70 bpm BP 144/81 147/78 Mobility NA Dep Max Mod Min CG CS DS NE I Comment Roll to right sidelying Roll to left sidelying Sidelying to sit Supine to sit x1 Uses bedrail to push up into sitting EOB for S/L Transfers x1 Stand step transfer from EOB to recliner with use of WW Gait: Steady, mild forward flexion Cues for upright posture, hand placement on WW Sit to/from stand x1 Cues to push up from bed to stand Walking on level surface Deferred - pt fatigue, discomfort Stairs Stand to sit Sit to Supine Functional Endurance: Impaired Sitting Balance: Static:good + (EOB distant sup) Dynamic:good Standing Balance: Static: good with assistive device rolling walker Dynamic:good with assistive device rolling walker Patient/Family Education: Instructed Patient in roles of therapy. Instructed Patient in roles, goals, treatment plan: demonstrated good verbal understanding. Reviewed Up with assistance as tolerated Precautions with Patient Patient up in chair with call light in reach. Chair alarm intact. RN informed. DME: With Patients permission ordered no equipment via Fix8 Order. [facility] any questions [facility] at [phone]. 6 Clicks Basic Mobility PT 05/18/2022 Difficulty turning over in bed 3 Difficulty sitting down and standing up from a chair with arms 3 Difficulty moving from lying on back to sitting on the side of the bed 3 Help from another person moving to and from bed to a chair 3 Help from another person to walk in hospital room 3 Help from another person climbing 3-5 steps with a railing 2 PT 6 Clicks Score 17 6 Click Score Guidelines: 1 - Total = Requires total assistance, or cannot do at all. 2 - A lot = Requires a lot of help (maximun to moderate assistance) Can use assistive devices. 3 - A little = Requires a little help (supervision, minimal assistance) Can use assistive devices. 4 - None = Does not require any help and does the activity independently. Can use assistive devices. Progressive Mobility Level 4 ASSESSMENT: Pt demonstrates good static and dynamic balance, completes transfer from EOB to chair with 2WW at supervision level. Declines further ambulation at this time due to fatigue and discomfort from recent NG placement. Anticipate patient will be appropriate for discharge home following 1-2 acute Physical Therapy sessions. Will continue to follow patient while in hospital as appropriate. Recommend family/caregiver assistance for IADL tasks. Recommend OT consult. Goals (to be achieved by discharge from acute care): ONGOING Patient will achieve acceptable level of pain control to allow participation in therapy. Patient will increase bed mobility to independent Patient will perform sit to/from stand transfer and bed to/from chair transfer with LRAD with modified independent Patient will ambulate 150 feet with LRAD with modified independent Patient will increase ROM/Strength/Endurance/Balance to allow for above goals. Patient/Family independent with exercise program/precautions. PLAN: Will follow established Plan of Care Layne Garcia, PT, DPT NA = Not Assessed, I = Independent, NE = Modified Independent, Sup = Supervised, Set up = Physical Assistance for Set-up Only, Min = Minimal Assistance, Mod = Moderate Assistance, Max = Maximal assistance; Dep = Dependent; AROM = Active Range of Motion; PROM = Passive Range of Motion; MMT = Manual Muscle TestThe [facility] [id number] NoteSICU Progress Note Gerry Victoria [id number] POD#: 0 LOS: 3 days : Interval History/Events: Pain improved Started vomiting this am Passing gas Background: Gerry Victoria is a 66 year old female with PMH of hypertension, RLS, GERD who presented to [facility] with progressive worsening epigastric pain with nausea and vomiting for the past day. Denies fevers, CP, dyspnea. Found to have elevated T waves and uptrending tropopnins. CT ab with acute inflammation of the gallbladder with a stone at the neck and transferred to [facility]. RUQ US with impacted gallstone at gallbladder neck. Cards consulted, admitted to [facility] down. Hospital Course: 05/16/22- cards c/s, high risk for lap merlyn 05/17/22- IR perc cholecystostomy Last 24hours: NAEO, pain much improved, feeling hungry In: 2069 (25.9 mL/kg) [P.O.:120; I.V.:1950 (1 mL/kg/hr)] Out: 2555 (31.9 mL/kg) [Urine:2300 (1.2 mL/kg/hr); Drainage:255] Net: -485 Weight: 80 kg Stool: n/a Drain: n/a NGT/OGT: n/a Medications: Scheduled potassium chloride SA 40 mEq One Time Dose calcium gluconate in NS 2,000 mg One Time Dose magnesium sulfate 2,000 mg One Time Dose rOPINIRole 4 mg At Bedtime insulin lispro 2-9 Units Every 4 hours enoxaparin 0.5 mg/kg 2x Daily piperacillin/tazobactam 4.5 g Q8H Antibiotic acetaminophen 650 mg Every 4 hours metoprolol 25 mg Every 12 hours gabapentin 100 mg 3x Daily levothyroxine 50 mcg Daily aspirin 81 mg Daily atorvastatin 40 mg Daily esomeprazole 40 mg Daily 30 min before breakfast docusate sodium 100 mg 2x Daily senna 8.6 mg At Bedtime PRN dextrose iv for hypoglycemia orderable 125 mL PRN Or glucagon 1 mg PRN Or dextrose 15 g of glucose PRN Or dextrose 30 g of glucose PRN ondansetron 4 mg Q4H PRN trimethobenzamide 200 mg Q6H PRN oxyCODONE 5 mg Q4H PRN IV dextrose 5 % and lactated ringers 100 mL/hr at 05/19/22 0600 Labs: Basic Metabolic Panel Na K Cl CO2 Gap Glu BUN Cr Ca Mg PO4 05/19/22 035 1.8 05/19/22 035 139 3.5 102 31 10 120 8 0.74 7.7 05/18/228 2.3 05/18/22227 136 3.9 101 27 12 77 12 0.78 7.7 05/17/22 0411 3.9 05/17/22 0411 1.9 05/17/22 0411 131 4.1 97 27 11 96 14 0.97 8.1 CBC/PT/INR WBC RBC Hgb Hct MCV RDW Plt PT aPTT INR 05/19/225 5.3 3.41 9.4 28.2 83 15.6 199 05/18/228 9.4 3.45 10.1 28.2 82 15.3 177 05/17/22 0411 34 05/17/22 0411 1.61 05/17/22 0411 12.3 4.37 12.1 36.4 83 15.8 232 WBC/Diff None Cardiac None Most Recent Ventilator Settings: NC 1L Arterial Blood Gases None Urine Culture (last 1 year) None Blood Culture Blood culture 05/17/2249 No growth to date, culture reincubated [P] 05/17/22948 No growth to date, culture reincubated [P] [P] - Preliminary Result Pyogen Culture Pyogen culture 05/17/22 1315 Culture in Progress- results to follow. [P] [P] - Preliminary Result Sputum Culture None Physical Exam: Vitals: Vital sign ranges over the past 24 hours (retrieved 05/19/2022 at 6:19 AM): Tmax (24 hours): 99.1 ???F (37.3 ???C) Pulse Av.1 Min: 62 Max: 85 Systolic (24hrs), Av , Min:90 , Max:171 Diastolic (24hrs), Av, Min:50, Max:102 MAP (mmHg) Av.4 mmHg Min: 65 mmHg Max: 107 mmHg Resp Av.3 Min: 11 Max: 27 SpO2 Av.2 % Min: 64 % Max: 100 % Neuro: A AND Ox3 CV: RRR Pulm: CTAB on Nc Abdomen: still diffusely tender to palpation Extremities: no peripheral edema Other: n/a Assessment/Plan: 66 year old female w/ PMHx of HTN, HLD, fibromyalgia, RLS, presenting with RUQ pain 2/2 acute cholecystitis and elevated troponins. NEURO: Pain/Sedation -Tylenol q4h scheduled -Oxy 5mg q4h prn -IV dilaudid prn for breakthrough -hold home TCA and SSRI for qtc #RLS -Continue home ropinirole, gabapentin PULM: CTA at OSH without dissection/PE CXR without focal consolidation, no pneumothorax - respiratory certified court/medical interpreter protocol, BPH, IS CARD: #T2MI #possible CAD Troponins elevated to 700, repeats downtrending EKG with tall T waves Likely demand in setting of acute illness, no need for heparin gtt at this time Echo with focal LV dysfunction concerning for underlying CAD Cardiology deemed high - immediate risk for surgical intervention, will need LHC after acute presentation either outpatient or prior to discharge -Cardiology consulted appreciate recs -ASA, statin, lopressor with parameters -Continue tele - patient clear for LHC from SICU perspective today. Please have NGT connected to suction during cath to prevent aspiration - Patient is OK for DAPT if needed and is OK for goal ACT 250 during PCI - needs LHC prior to having cholecystectomy. Cholecystectomy not necessary in short term given source control and symptomatic improvement with decompression via drain. - from surgical aspect patient can be on uninterrupted DAPT for at least 28 days or longer GI: (more content not included)...[id number] NotePHYSICAL THERAPY ACUTE EVALUATION Referral received, chart reviewed. Patient seen from 1520 to 1600 on GC 5W unit for 40 minutes for evaluation and treatment. Admit date/time: 05/16/2022 2:08 AM Reason for Admit: Patient is a 66 year old female who presented with abdominal pain. Pt also reports nausea and vomiting. Diagnosis: Acute cholecystitis Type 2 myocardiac injury Precautions: High Fall Risk Full Code NPO Initiate Progressive Mobility Procedures this admit: 05/18/22: US guided percutaneous cholecystostomy tube placement Past Medical and Surgical History: PMH: hypertension, RLS, GERD Past Medical History: Diagnosis Date Restless leg PSH: Past Surgical History: Procedure Laterality Date TOTAL ABDOMINAL HYSTERECTOMY W/WO REMOVAL TUBE(S)/OVARY(S) Identification was verified by patient verbalizing his/her name and date of . 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 Pt drives and manages her own medications. Pt ambulates without AD. Pt denies falls in the past 6 months. Home: Pt lives alone in a ranch home. 0 steps to enter. 0 steps to bedroom/bathroom. Assistance available: Pt reports her sister is able to provide intermittent assistance. Equipment available: rollator, cane, shower chair, elevated toilet OBJECTIVE: Appearance: Supine in bed, IV, BP cuff, pulse oximeter, court monitor, fu, CVC triple lumen (R), surgical drain Behavior: Alert, cooperative Oriented x 3 Follows two step commands consistently Pain: Site/Location: abdomen; Pain Scale: 0/10 at rest, not rated with mobility Pain Relief Interventions Implemented: Positioning, Rest, and RN aware and reports patient received medication according to time schedule Passive ROM: WFL B UE and B LE Active ROM: WFL B LE and R UE; limited shoulder flexion to approximately 90 degrees on L UE Strength: Hip Flexion Knee Flexion Knee Extension Ankle DF Ankle PF R LE 4/5 4/5 4/5 4/5 4/5 L LE 4-/5 4/5 4/5 4/5 4/5 Sensation: pt denies numbness/tingling Mobility: Rolling to left: minimal assistance at trunk with cueing for log roll technique Sidelying to sit: moderate assistance to lift trunk into seated position and to fully lift B LE out of bed; cueing for log roll technique Sitting balance: Good seated on the edge of the bed Sit to stand: contact guard from the edge of the bed to FWW with cueing for hand placement Transfers: contact guard from bed to chair using FWW Ambulation/Gait: Pt ambulated 3 feet from bed to chair using FWW with contact guard. Pt demonstrated decreased tammy and decreased step length. Additional ambulation distance limited by pt fatigue and pain. Endurance: Impaired; fatigue limiting additional activity tolerance Vitals: BP 103/59 HR 70 bpm SpO2 95-100% on room air throughout session Patient/Family Education: Instructed Patient in roles, goals, treatment plan: demonstrated good verbal understanding. Patient up in chair with call light in reach. Chair alarm intact. Instructed pt to call for assistance from staff when performing all mobility. DME: With Patients permission ordered no equipment via [employer]. If any questions contact [facility] DME Provider at [phone]. 6 Clicks Basic Mobility PT 05/18/2022 Difficulty turning over in bed 3 Difficulty sitting down and standing up from a chair with arms 3 Difficulty moving from lying on back to sitting on the side of the bed 3 Help from another person moving to and from bed to a chair 3 Help from another person to walk in hospital room 3 Help from another person climbing 3-5 steps with a railing 2 PT 6 Clicks Score 17 6 Click Score Guidelines: 1 - Total = Requires total assistance, or cannot do at all. 2 - A lot = Requires a lot of help (maximun to moderate assistance) Can use assistive devices. 3 - A little = Requires a little help (supervision, minimal assistance) Can use assistive devices. 4 - None = Does not require any help and does the activity independently. Can use assistive devices. Progressive Mobility: Level 4 ASSESSMENT: Gerry Victoria is a 66 year old yo female who presented with abdominal pain and is being treated for acute cholecystitis. Pt currently requires Mod A-CGA to perform mobility with pt limited by pain, decreased endurance and weakness. Pt would benefit from acute PT services to improve strength, balance and endurance. Anticipate patient will be appropriate for discharge home following 1-2 acute Physical Therapy sessions. Will continue to follow patient while in hospital as appropriate. Recommend family/caregiver assistance for IADL tasks. Recommend OT consult. Problems: Pain Decreased ROM/strength Decreased functional mobility Decreased (more content not included)...[facility] [employer] [id number] Note EXAMINATION: XA PERCUTANEOUS CHOLECYSTOSTOMY (RHETT) 05/17/2022 01:38 PM CLINICAL HISTORY: Rad Procedure required: = percutaneous cholecystomostmy tube placement,acute cholecystitis, not a good surgical candidate at this time 2/2 cardiac risk ASSOCIATED DIAGNOSIS: ORDERING PROVIDER: [facility] TECHNMAYUR NOTE: FLUOROSCOPIST: FLUORO TIME: INTRA-PROCEDURE MEDS: ATTENDING PHYSICIAN: Marcella Fernando RESIDENT/FELLOW PHYSICIAN: El Hollis INFORMED CONSENT: Written informed consent was obtained. The procedure, risks, benefits, and alternatives were discussed. All questions were answered. TIMEOUT: Physician led timeout was conducted documenting correct patient, procedure, site, fire risk, antibiotics and allergies. COMPLICATIONS: None ESTIMATED BLOOD LOSS: Less than 10mL TECHNIQUE: The procedure was performed urgently/emergently at the patient's bedside. The patient was positioned in the supine position. Ultrasound evaluation of the upper abdomen was performed and spot images were obtained. The skin was site- marked. The area was prepped and draped in the usual aseptic manner.1% lidocaine was used for local anesthesia. A 5F Novia [employer] catheter over its matched stylet was inserted into the gallbladder lumen under ultrasoundguidance. The stylet was removed. An Amplatz wire was passed through the catheter and the catheter removed. Ultrasound was utilized to document wire position within the gallbladder lumen. Serial dilatation was then subsequently performed with an 8 and 10 Burkinan dilator. A 10 F all purpose drain pigtail then advanced over the wire and positioned within the gallbladder lumen. Fluid was aspirated and transferred to a specimen container. The external portion of the tube was sutured to the patient's skin and a sterile dressing was applied. The tube was then connected to gravity drainage. The patient tolerated the procedure well without immediate complication FINDINGS: Ultrasound images identify the gallbladder and the planned pathway for drainage. Post catheter placement demonstrates the catheter to be located within the gallbladder lumen. IMPRESSION: Technically successful uncomplicated cholecystostomy tube placement. MACRO: NoneThe [employer] [id number] NoteSICU Progress Note Gerry Victoria [id number] POD#: 0 LOS: 2 days : Interval History/Events: Background: Gerry Victoria is a 66 year old female with PMH of hypertension, RLS, GERD who presented to [facility] with progressive worsening epigastric pain with nausea and vomiting for the past day. Denies fevers, CP, dyspnea. Found to have elevated T waves and uptrending tropopnins. CT ab with acute inflammation of the gallbladder with a stone at the neck and transferred to [facility]. RUQ US with impacted gallstone at gallbladder neck. Cards consulted, admitted to step down. Hospital Course: 05/16/22- cards c/s, high risk for lap merlyn 05/17/22- IR perc cholecystostomy Last 24hours: NAEO In: 2883.3 (36 mL/kg) [P.O.:100; I.V.:2783.3 (1.4 mL/kg/hr)] Out: 2450 (30.6 mL/kg) [Urine:2150 (1.1 mL/kg/hr); Drainage:300] Net: 433.3 Weight: 80 kg Stool: n/a Drain: n/a NGT/OGT: n/a Medications: Scheduled potassium chloride SA 20 mEq One Time Dose piperacillin/tazobactam 4.5 g Q8H Antibiotic acetaminophen 650 mg Every 4 hours metoprolol 25 mg Every 12 hours rOPINIRole 2 mg At Bedtime gabapentin 100 mg 3x Daily levothyroxine 50 mcg Daily aspirin 81 mg Daily atorvastatin 40 mg Daily esomeprazole 40 mg Daily 30 min before breakfast docusate sodium 100 mg 2x Daily senna 8.6 mg At Bedtime PRN ondansetron 4 mg Q4H PRN trimethobenzamide 200 mg Q6H PRN oxyCODONE 5 mg Q4H PRN HYDROmorphone HCl PF 0.5 mg Q2H PRN IV lactated ringers 100 mL/hr at 05/18/22 0500 Labs: Basic Metabolic Panel Na K Cl CO2 Gap Glu BUN Cr Ca Mg PO4 05/18/22227 2.3 05/18/22227 136 3.9 101 27 12 77 12 0.78 7.7 05/17/22410 3.9 05/17/22410 1.9 05/17/22410 131 4.1 97 27 11 96 14 0.97 8.1 02/20/23 0222 136 4.9 100 27 14 119 9 0.76 8.6 CBC/PT/INR WBC RBC Hgb Hct MCV RDW Plt PT aPTT INR 05/18/22227 9.4 3.45 10.1 28.2 82 15.3 177 05/17/22 0411 34 05/17/22 0411 1.61 05/17/22410 12.3 4.37 12.1 36.4 83 15.8 232 05/16/22 022 1.10 05/16/22 0222 55 05/16/22221 11.3 4.74 13.0 39.2 83 15.3 290 WBC/Diff Neutro% Segs% Bands% Lymphs% Monos% Eos% Basos% 05/16/22221 82.4 10.9 6.1 0.1 0.5 Cardiac None Most Recent Ventilator Settings: NC 1L Arterial Blood Gases None Urine Culture (last 1 year) None Blood Culture None Pyogen Culture None Sputum Culture None Physical Exam: Vitals: Vital sign ranges over the past 24 hours (retrieved 05/18/2022 at 6:10 AM): Tmax (24 hours): 99.4 ???F (37.4 ???C) Pulse Av.1 Min: 65 Max: 88 Systolic (24hrs), Av , Min:73 , Max:119 Diastolic (24hrs), Av, Min:44, Max:99 MAP (mmHg) Av.1 mmHg Min: 55 mmHg Max: 107 mmHg Resp Av.5 Min: 8 Max: 20 SpO2 Av.1 % Min: 95 % Max: 100 % Neuro: A AND Ox3 CV: RRR Pulm: CTAB on Nc Abdomen: still diffusely tender to palpation Extremities: no peripheral edema Other: n/a Assessment/Plan: 66 year old female w/ PMHx of HTN, HLD, fibromyalgia, RLS, presenting with RUQ pain 2/2 acute cholecystitis and elevated troponins. NEURO: Pain/Sedation -Tylenol q4h scheduled -Oxy 5mg q4h prn -IV dilaudid prn for breakthrough -hold home TCA and SSRI for qtc #RLS -Continue home ropinirole, gabapentin PULM: CTA at OSH without dissection/PE CXR without focal consolidation, no pneumothorax - respiratory certified court/medical interpreter protocol, BPH, IS CARD: #T2MI #possible CAD Troponins elevated to 700, repeats downtrending EKG with tall T waves Likely demand in setting of acute illness, no need for heparin gtt at this time Echo with focal LV dysfunction concerning for underlying CAD Cardiology deemed high - immediate risk for surgical intervention, will need LHC after acute presentation either outpatient or prior to discharge -Cardiology consulted appreciate recs -ASA, statin, lopressor with parameters -Continue tele - hold off on Cath today given ab pain - repeat one more troponin GI: #acute cholecystitis CT ab/pel from OSH with acute inflammation of the gallbladder with a stone at the neck RUQ US with impacted gallstone at gallbladder neck, positive newton's Increased cardiac risk, will defer to IR perc merlyn Worsening abdominal pain overnight Repeat CT ab/pel shows worsening distention of gallbladder and inflammation IR percutaneous cholecystotomy 05/17 - continue zosyn - prn tigan for nausea -Diet: NPO - Bowel regimen - home PPI - pending blood and fluid culture : UOP via external fu RENAL: No acute concerns -daily BMP, Mg, Phos, replete PRN -mIVF, add D5 -replete Ca ID: #sepsis 04/28 acute cholecystitis Initially afebrile with no leukocytosis , now febrile with leukocytosis IR perc merlyn 05/17, resolution of fever/leukocytosis Prelim fluid cultures gram + - pending Blood/fluid cultures - Continue zosyn Heme: -Daily CBC Endo Glycemic (more content not included)...[facility] [id number] Note POST-PROCEDURE NOTE Procedure: US guided percutaneous cholecystotomy tube Pre-operative Diagnosis: Acute cholecystitis Post-operative Diagnosis: Same Attending: Kim Fernando MD Distribution Sales Manager: Bunny FELIX OUT was performed prior to the procedure using active communication to verify correct patient, procedure, and site: Yes Intraoperative Medications: Medications Medication Event Details Admin User Admin Time Complications: None Specimens: 50cc fluid sent Estimated Blood Loss: less than 10 cc Post Procedure Pain Ratin/10 Findings: Bilious output Plan: per primary team Please see procedure dictation in EPIC/PACS for full procedural details. Dr. Fernando was present for the critical portion of the procedure. El Hollis MD RadiologyThe [facility] HospitalHemoSonics [id number] NotePre-Procedure Note HISTORY: Procedure: US guided percutaneous cholecystostomy tube placement Indication: Acute cholecystitis Past Medical History: Diagnosis Date Restless leg Diabetes: no Sleep Apnea: no Excessive Obesity: no Hepatic Disease: yes Renal Disease: yes Substance Abuse History: Social History Tobacco Use Smoking status: Former Packs/day: 1.00 Years: 50.00 Pack years: 50.00 Types: Cigarettes Quit date: 2009 Years since quittin.1 History Drug Use Not on file Current Facility-Administered Medications Medication Dose Route Frequency Last Rate Last Admin Piperacillin-Tazobactam in D5W (ZOSYN) 4-0.5 GM/100ML ivpb 4,500 mg 100 mL 4.5 g Intravenous Q8H Antibiotic acetaminophen (TYLENOL) tablet 650 mg Oral Every 4 hours 650 mg at 05/17/22 0930 metoprolol (LOPRESSOR) tablet 25 mg Oral Every 12 hours 25 mg at 05/17/22 0947 rOPINIRole (REQUIP) tablet 2 mg Oral At Bedtime 2 mg at 05/16/222037 gabapentin (NEURONTIN) capsule 100 mg Oral 3x Daily 100 mg at 05/17/22 0607 levothyroxine (SYNTHROID) tablet 50 mcg Oral Daily 50 mcg at 05/17/22 0947 aspirin 81 MG chewable tablet 81 mg Oral Daily 81 mg at 05/17/22 0947 atorvastatin (LIPITOR) tablet 40 mg Oral Daily 40 mg at 05/17/22 0947 esomeprazole (NEXIUM) capsule 40 mg Oral Daily 30 min before breakfast 40 mg at 05/17/22 0947 trimethobenzamide (TIGAN) 100 MG/ML injection 200 mg Intramuscular Q6H PRN 200 mg at 05/16/22 1833 oxyCODONE immediate release tablet 5 mg Oral Q4H PRN 5 mg at 05/17/22 0607 HYDROmorphone (DILAUDID) 1 mg/mL injection 0.5 mg Intravenous Push Q2H PRN 0.5 mg at 05/17/22 1323 lactated ringers iv infusion Intravenous Continuous 100 mL/hr at 05/17/22 1000 New Bag at 05/17/22 1000 docusate sodium (COLACE) capsule 100 mg Oral 2x Daily 100 mg at 05/17/22 0947 senna (SENOKOT) tablet 8.6 mg Oral At Bedtime 8.6 mg at 05/16/222029 Allergies: Adhesives [bandage tape], Cymbalta [duloxetine hcl], and Lyrica [pregabalin] PHYSICAL EXAM: Blood pressure 75/51, pulse 65, temperature 99.4 ???F (37.4 ???C), temperature source Oral, resp. rate 10, height 5' 1 (1.549 m), weight 176 lb 6.4 oz (80 kg), SpO2 100 %. Lungs: Clear to auscultation bilaterally Heart: Regular rate and rhythm Pertinent Findings: + murphys Labs Reviewed? Yes Recent Labs: Result for specified components in the past 45 days Component Date/Time Result Units Hemoglobin 05/17/2022 9:11 AM 12.1 g/dL Hematocrit 05/17/2022 9:11 AM 36.4 % Platelet 05/17/2022 9:11 AM 232 K/uL aPTT 05/17/2022 9:11 AM 34 sec Protime 05/17/2022 9:11 AM 18.1 sec INR 05/17/2022 9:11 AM 1.61 FXAUN --- not found ANTIFXALMWHE --- not found Creatinine 05/17/2022 9:11 AM 0.97 mg/dL Planned Sedation: Light Planned Sedation Medications: Dilaudid ASA Classification: Class IV: Individual with severe, incapacitating disease. Danger of due to organ failure is always present. Mallampati Airway Assessment: Unable to assess Patient or family history of adverse reactions involving sedation/anesthesia: No patient or family history of adverse reaction PRE-PROCEDURE VERIFICATION: Site of Procedure: not applicable Site Marked pre-procedure: N/A Pre-Procedure Pain Ratin/10 Advanced Directives (Living will, health care power of trial attorney): yes, Patient Recent Code Status: Full Code Code Status For This Procedure: Full Code El Hollis MD [facility]Park[facility]-2023 NotePHYSICAL THERAPY CHART REVIEW Referral received, chart reviewed. RN request to hold therapy this date. Pt with 10/10 pain, just returned from [place] with team deciding on emergent operation vs IR cholecystostomy tube placement. Evaluation to follow as appropriate Admit date/time: 05/16/2022 2:08 AM Reason for Admit: epigastric pain with nausea and vomiting Diagnosis: Cholecystitis Precautions: Full Code Ross Past Medical and Surgical History: PMH: Past Medical History: Diagnosis Date Restless leg PSH: Past Surgical History: Procedure Laterality Date TOTAL ABDOMINAL HYSTERECTOMY W/WO REMOVAL TUBE(S)/OVARY(S) Chu Warren, [facility]02-21-2023 NoteSICU Progress Note Gerry Victoria [id number] POD#: 0 LOS: 1 day : Interval History/Events: Background: Gerry Victoria is a 66 year old female with PMH of hypertension, RLS, GERD who presented to [facility] with progressive worsening epigastric pain with nausea and vomiting for the past day. Denies fevers, CP, dyspnea. Found to have elevated T waves and uptrending tropopnins. CT ab with acute inflammation of the gallbladder with a stone at the neck and transferred to [facility]. RUQ US with impacted gallstone at gallbladder neck. Cards consulted, admitted to [facility]. Hospital Course: 05/16/22- cards c/s, high risk for lap merlyn, IR c/s for perc merlyn 05/17 Last 24hours: In: 1770 (22.1 mL/kg) [I.V.:1770 (0.9 mL/kg/hr)] Out: 2549 (31.9 mL/kg) [Urine:2549 (1.3 mL/kg/hr)] Net: -779 Weight: 80 kg Stool: n/a Drain: n/a NGT/OGT: n/a Medications: Scheduled metoprolol 25 mg Every 12 hours rOPINIRole 2 mg At Bedtime gabapentin 100 mg 3x Daily levothyroxine 50 mcg Daily aspirin 81 mg Daily atorvastatin 40 mg Daily esomeprazole 40 mg Daily 30 min before breakfast docusate sodium 100 mg 2x Daily senna 8.6 mg At Bedtime piperacillin/tazobactam 3.375 g Q6H Antibiotic metroNIDAZOLE 500 mg Q8H Antibiotic PRN trimethobenzamide 200 mg Q6H PRN oxyCODONE 5 mg Q4H PRN HYDROmorphone HCl PF 0.5 mg Q2H PRN acetaminophen 650 mg Q4H PRN IV lactated ringers 100 mL/hr at 05/17/22 0400 Labs: Basic Metabolic Panel Na K Cl CO2 Gap Glu BUN Cr Ca Mg PO4 05/17/22 0411 3.9 05/17/22 0411 1.9 02/21/23 0411 131 4.1 97 27 11 96 14 0.97 8.1 05/16/22221 136 4.9 100 27 14 119 9 0.76 8.6 CBC/PT/INR WBC RBC Hgb Hct MCV RDW Plt PT aPTT INR 05/17/22410 34 05/17/22 0411 1.61 05/17/22410 12.3 4.37 12.1 36.4 83 15.8 232 05/16/22221 1.10 05/16/22 0222 55 05/16/22221 11.3 4.74 13.0 39.2 83 15.3 290 WBC/Diff Neutro% Segs% Bands% Lymphs% Monos% Eos% Basos% 05/16/22221 82.4 10.9 6.1 0.1 0.5 Cardiac None Most Recent Ventilator Settings: NC 1L Arterial Blood Gases None Urine Culture (last 1 year) None Blood Culture None Pyogen Culture None Sputum Culture None Physical Exam: Vitals: Vital sign ranges over the past 24 hours (retrieved 05/17/2022 at 6:14 AM): Tmax (24 hours): 102.7 ???F (39.3 ???C) Pulse Av.9 Min: 77 Max: 113 Systolic (24hrs), Av , Min:84 , Max:136 Diastolic (24hrs), Av, Min:56, Max:88 MAP (mmHg) Av.4 mmHg Min: 66 mmHg Max: 101 mmHg Resp Av.4 Min: 15 Max: 29 SpO2 Av.3 % Min: 90 % Max: 98 % Neuro: A AND Ox3 CV: RRR Pulm: CTAB on Nc Abdomen: worsening abdominal pain, diffusely tender to palpation Extremities: no peripheral edema Other: n/a Assessment/Plan: 66 year old female w/ PMHx of HTN, HLD, fibromyalgia, RLS, presenting with RUQ pain 2/2 acute cholecystitis and elevated troponins. NEURO: Pain/Sedation -Tylenol q4h scheduled -Oxy 5mg q4h prn -IV dilaudid prn for breakthrough -hold home TCA and SSRI for qtc #RLS -Continue home ropinirole, gabapentin PULM: CTA at OSH without dissection/PE CXR without focal consolidation, no pneumothorax - respiratory certified court/medical interpreter protocol, BPH, IS CARD: #T2MI #possible CAD Troponins elevated to 700, repeats downtrending EKG with tall T waves Likely demand in setting of acute illness, no need for heparin gtt at this time Echo with focal LV dysfunction concerning for underlying CAD Cardiology deemed high - immediate risk for surgical intervention, will need LHC after acute presentation either outpatient or prior to discharg -Cardiology consulted appreciate recs -ASA, statin, lopressor with parameters -Continue tele GI: #acute cholecystitis CT ab/pel from OSH with acute inflammation of the gallbladder with a stone at the neck RUQ US with impacted gallstone at gallbladder neck, positive newton's Increased cardiac risk, will defer to IR perc merlyn Worsening abdominal pain overnight Repeat CT ab/pel shows worsening distention of gallbladder and inflammation - continue zosyn d/c flagyll - prn tigan for nausea -Diet: NPO, resume regular diet post procedure - Bowel regimen - home PPI - IR percutaneous cholecystotomy today - culture fluid : UOP via external fu RENAL: No acute concerns -daily BMP, Mg, Phos, replete PRN -mIVF ID: #sepsis 2/2 acute cholecystitis Initially afebrile with no leukocytosis , now febrile with leukocytosis - Blood cultures - Continue zosyn, d/c flagyll - IR perc merlyn - culture fluid from cholecystostomy tube Heme: -Daily CBC Endo Glycemic issues -SSI Hypothyroid Continue home levothyroxine MSK PT/OT, progressive mobility Prophylaxis: Dispo: Flor Chew MD Preliminary IM/Anesthesiology PGY-1 Pager: [phone] Teaching Physician Note: I saw and evaluated the patient. I personally obtained the bhandari and (more content not included)...[facility] [id number] NoteFIRELANDS REGIONAL [facility] DIVISION OF ACUTE CARE SURGERY SURGICAL CRITICAL CARE HISTORY AND PHYSICAL Reason for consultation: acute cholecystitis, elevated troponins Referring physician: Connie Cote HPI: Gerry Victoria is a 66 year old female with PMH of hypertension, RLS, GERD who presented to [facility] with progressive worsening epigastric pain with nausea and vomiting for the past day. Denies fevers, CP, dyspnea. Found to have elevated T waves and uptrending tropopnins. CT ab with acute inflammation of the gallbladder with a stone at the neck and transferred to [facility]. RUQ US with impacted gallstone at gallbladder neck. Cards consulted, admitted to step down. PMH: No past medical history on file. Afib?, HTN, HLD, restless legs, urinary incontinence, hypothyroid, fibromyalgia, PARTH, GERD PSH: No past surgical history on file. Hysterectomy MEDS: None Rosuvastatin 10mg, oxybutinin 10mg , Ropinirole, gabapentin, atenolol 50mg, amitriptyline 50mg, tramadol 50mg prn, escitaopram, levothryoxine, omeprazole ALL: Allergies Allergen Reactions Adhesives [Bandage Tape] Itching and Redness Cymbalta [Duloxetine Hcl] Agitation Lyrica [Pregabalin] Swelling FH: No family history on file. SH: Social History Socioeconomic History Marital status: Tobacco Use Smoking status: Former Packs/day: 1.00 Years: 50.00 Pack years: 50.00 Types: Cigarettes Quit date: 2009 Years since quittin.1 Review Of Systems: Skin: negative Eyes: negative review of symptoms Ears/Nose/Throat: negative Respiratory: dyspnea due to pain Cardiovascular: negative symptoms (No CP/Pressure/Tightness, palpitations, orthopnea, PND, SOB, MONSIVAIS, edema, MCNAMARA or vision change) Gastrointestinal: nausea/vomiting and abdominal pain Genitourinary: incontinence Neurologic: negative symptoms (no syncope, seizures, weakness, gait problems, numbness, burning pain, tremors, or memory loss) negative (no arthritic pain, no joint swelling, no muscle weakness) Psychiatric: negative (no sleep disturbance, anxiety, memory loss, disorientation, inattention, feelings of depression) Hematologic/Lymphatic/Immunologic: negative (no anemia, bleeding, bruising) Endocrine: negative review of symptoms PHYSICAL EXAM: VITALS: Vitals: 05/16/22 1013 BP: Pulse: 100 Resp: 20 Temp: SpO2: 97% Patient Vitals for the past 24 hrs: BP Temp Temp src Pulse Resp SpO2 O2 Device O2 Flow Rate (l/min) 05/16/22 1013 -- -- -- 100 20 97 % -- -- 05/16/22 1000 130/76 -- -- 99 27 98 % -- -- 05/16/22 0945 122/76 -- -- 101 20 97 % -- -- 05/16/22 0937 117/68 99.8 ???F (37.7 ???C) Oral (!) 101 (!) 24 97 % Nasal cannula 1L 05/16/22 0905 -- -- -- (!) 104 (!) 21 96 % Nasal cannula 2 05/16/22 0900 102/88 -- -- 95 18 95 % -- -- 05/16/22 0732 128/74 -- -- 96 15 95 % -- -- 05/16/22 0724 125/67 -- -- (!) 108 16 95 % Nasal cannula 2 05/16/22 0633 -- -- -- 100 20 96 % -- -- 05/16/22 0430 124/70 -- -- 91 -- -- -- -- 05/16/22 0415 106/76 -- -- 98 20 97 % -- -- 05/16/22 0223 -- 99.7 ???F (37.6 ???C) Oral -- -- -- -- -- 05/16/22 0217 -- -- -- 87 15 97 % Nasal cannula 2 05/16/22 0212 144/74 -- -- -- -- -- -- -- Physical Exam Constitutional: General: She is not in acute distress. Appearance: She is normal weight. She is not ill-appearing or toxic-appearing. HENT: Head: Normocephalic and atraumatic. Mouth/Throat: Mouth: Mucous membranes are moist. Pharynx: Oropharynx is clear. Eyes: Extraocular Movements: Extraocular movements intact. Pupils: Pupils are equal, round, and reactive to light. Cardiovascular: Rate and Rhythm: Normal rate and regular rhythm. Pulses: Normal pulses. Heart sounds: Normal heart sounds. No murmur heard. Pulmonary: Effort: Pulmonary effort is normal. No respiratory distress. Breath sounds: Normal breath sounds. No stridor. No wheezing, rhonchi or rales. Abdominal: General: Abdomen is flat. There is no distension. Tenderness: There is abdominal tenderness. There is guarding. There is no rebound. Musculoskeletal: General: Normal range of motion. Cervical back: Normal range of motion. Right lower leg: No edema. Left lower leg: No edema. Skin: General: Skin is warm and dry. Neurological: General: No focal deficit present. Mental Status: She is alert and oriented to person, place, and time. 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 The person may leak urine if he or she cannot get to the bathroom fast enough (urinary incontinence). A person with this condition may also wake up several times in the night to go to the bathroom. Overactive bladder is associated with poor nerve signals between your bladder and your brain. Your bladder may get the signal to empty before it is full. You may also have very sensitive muscles thatmake your bladder squeeze too soon. These symptoms might interfere with daily work or social activities. What are the causes? This condition may be associated with or caused by: Urinary tract infection. Infection of nearby tissues, such as the prostate. Prostate enlargement. Surgery on the uterus or urethra. Bladder stones, inflammation, or tumors. Drinking too much caffeine or alcohol. Certain medicines, especially medicines that get rid of extra fluid in the body (diuretics). Muscle or nerve weakness, especially from: ?A spinal cord injury. ?Stroke. ?Multiple sclerosis. ?Parkinson's disease. Diabetes. Constipation. What increases the risk? You may be at greater risk for overactive bladder if you: Are an older adult. Smoke. Are going through menopause. Have prostate problems. Have a neurological disease, such as stroke, dementia, Parkinson's disease, or multiple sclerosis (MS). Eat or drink things that irritate the bladder. These include alcohol, spicy food, and caffeine. Are overweight or obese. What are the signs or symptoms? Symptoms of this condition include: Sudden, strong urge to urinate. Leaking urine. Urinating 8 or more times a day. Waking up to urinate 2 or more times a night. How is this diagnosed? Your health care provider may suspect overactive bladder based on your symptoms. He or she will diagnose this condition by: A physical exam and medical history. Blood or urine tests. You might need bladder or urine tests to help determine what is causing your overactive bladder. You might also need to see a health care provider who specializes in urinary tract problems (urologist). How is this treated? Treatment for overactive bladder depends on the cause of your condition and whether it is mild or severe. You can also make lifestyle changes at home. Options include: Bladder training. This may include: ?Learning to control the urge to urinate by following a schedule that directs you to urinate at regular intervals (timed voiding). ?Doing Kegel exercises to strengthen your pelvic floor muscles, which support your bladder. Toning these muscles can help you control urination, even if your bladder muscles are overactive. Special devices. This may include: ?Biofeedback, which uses sensors to help you become aware of your body's signals. ?Electrical stimulation, which uses electrodes placed inside the body (implanted) or outside the body. These electrodes send gentle pulses of electricity to strengthen the nerves or muscles that control the bladder. ?Women may use a plastic device that fits into the vagina and supports the bladder (pessary). Medicines. ?Antibiotics to treat bladder infection. ?Antispasmodics to stop the bladder from releasing urine at the wrong time. ?Tricyclic antidepressants to relax bladder muscles. ?Injections of botulinum toxin type A directly into the bladder tissue to relax bladder muscles. Lifestyle changes. This may include: ?Weight loss. Talk to your health care provider about weight loss methods that would work best for you. ?Diet changes. This may include reducing how much alcohol and caffeine you consume, or drinking fluids at different times of the day. ?Not smoking. Do not use any products that contain nicotine or tobacco, such as cigarettes and e-cigarettes. If you need help quitting, ask your health care provider. Surgery. ?A device may be implanted to help manage the nerve signals that control urination. ?An electrode may be implanted to stimulate electrical signals in the bladder. ?A procedure may be done to change the shape of the bladder. This is done only in very severe cases. Follow these instructions at home: Lifestyle Make any diet or lifestyle changes that are recommended by your health care provider. These may include: ?Drinking less fluid or drinking fluids at different times of the day. ?Cutting down on caffeine or alcohol. ?Doing Kegel exercises. ?Losing weight if needed. ?Eating a healthy and balanced diet to prevent constipation. This may include: ?Eating foods that are high in fiber, such as fresh fruits and vegetables, whole grains, and beans. ?Limiting foods that are high in fat and processed sugars, such as fried and sweet foods. General instructions Take fasu-rwz-gcaxkzl and prescription medicines only as told by your health care provider. If you were prescribed an antibiotic medicine, take it as told by your health care provider. Do notstop taking the antibiotic even if you start to feel better. Use any implants or pessary as told by your health care provider. If needed, wear pads to absorb urine leakage. Keep a journal or log to track how much and when you drink and when you feel the need to urinate. This will help your health care provider monitor your condition. Keep all follow-up visits as told by your health care provider. This is important. Contact a health care provider if: You have a fever. Your symptoms do not get better with treatment. Your pain and discomfort get worse. You have more frequent urges to urinate. Get help right away if: You are not able to control your bladder. Summary Overactive bladder refers to a condition in which a person has a sudden need to pass urine. Several conditions may lead to an overactive bladder. Treatment for overactive bladder depends on the cause and severity of your condition. Follow your health care provider's instructions about lifestyle changes, doing Kegel exercises, keeping a journal, and taking medicines. This information is not intended to replace advice given to you by your health care provider. Make sure you discuss any questions you have with your health care provider. Document Released: 01/07/2010 Document Revised: 07/04/2019 Document Reviewed: 03/29/2018 [email or web address] Patient Education 2020 [employer]. Follow Up Care 11/12/2021 11:10:16 With:MARYCARMEN NAVA PA-C, URL Address: When:1 year [facility] 05-05-2022 Hospital Discharge instructions Patient Education 07/29/2021 08:21:47 Urinary Incontinence Urinary Incontinence Urinary incontinence refers to a condition in which a person is unable to control where and when topass urine. A person with this condition will urinate when he or she does not mean to (involuntarily). What are the causes? This condition may be caused by: Medicines. Infections. Constipation. Overactive bladder muscles. Weak bladder muscles. Weak pelvic floor muscles. These muscles provide support for the bladder, intestine, and, in women,the uterus. Enlarged prostate in men. The prostate is a gland near the bladder. When it gets too big, it can pinch the urethra. With the urethra blocked, the bladder can weaken and lose the ability to empty properly. Surgery. Emotional factors, such as anxiety, stress, or post-traumatic stress disorder (PTSD). Pelvic organ prolapse. This happens in women when organs shift out of place and into the vagina. This shift can prevent the bladder and urethra from working properly. What increases the risk? The following factors may make you more likely to develop this condition: Older age. Obesity and physical inactivity. and childbirth. Menopause. Diseases that affect the nerves or spinal cord (neurological diseases). Long-term (chronic) coughing. This can increase pressure on the bladder and pelvic floor muscles. What are the signs or symptoms? Symptoms may vary depending on the type of urinary incontinence you have. They include: A sudden urge to urinate, but passing urine involuntarily before you can get to a bathroom (urge incontinence). Suddenly passing urine with any activity that forces urine to pass, such as coughing, laughing, exercise, or sneezing (stress incontinence). Needing to urinate often, but urinating only a small amount, or constantly dribbling urine (overflow incontinence). Urinating because you cannot get to the bathroom in time due to a physical disability, such as arthritis or injury, or communication and thinking problems, such as Alzheimer disease (functional incontinence). How is this diagnosed? This condition may be diagnosed based on: Your medical history. A physical exam. Tests, such as: ?Urine tests. ?X-rays of your kidney and bladder. ?Ultrasound. ?CT scan. ?Cystoscopy. In this procedure, a health care provider inserts a tube with a light and camera (cystoscope) through the urethra and into the bladder in order to check for problems. ?Urodynamic testing. These tests assess how well the bladder, urethra, and sphincter can store and release urine. There are different types of urodynamic tests, and they vary depending on what the test is measuring. To help diagnose your condition, your health care provider may recommend that you keep a log of when you urinate and how much you urinate. How is this treated? Treatment for this condition depends on the type of incontinence that you have and its cause. Treatment may include: Lifestyle changes, such as: ?Quitting smoking. ?Maintaining a healthy weight. ?Staying active. Try to get 150 minutes of moderate-intensity exercise every week. Ask your health care provider which activities are safe for you. ?Eating a healthy diet. ?Avoid high-fat foods, like fried foods. ?Avoid refined carbohydrates like white bread and white rice. ?Limit how much alcohol and caffeine you drink. ?Increase your fiber intake. Foods such as fresh fruits, vegetables, beans, and whole grains are healthy sources of fiber. Pelvic floor muscle exercises. Bladder training, such as lengthening the amount of time between bathroom breaks, or using the bathroom at regular intervals. Using techniques to suppress bladder urges. This can include distraction techniques or controlled breathing exercises. Medicines to relax the bladder muscles and prevent bladder spasms. Medicines to help slow or prevent the growth of a man's prostate. Botox injections. These can help relax the bladder muscles. Using pulses of electricity to help change bladder reflexes (electrical nerve stimulation). For women, using a certified medical records coder to prevent urine leaks. This is a small, tampon-like, disposable device that is inserted into the urethra. Injecting collagen or carbon beads (bulking agents) into the urinary sphincter. These can help thicken tissue and close the bladder opening. Surgery. Follow these instructions at home: Lifestyle Limit alcohol and caffeine. These can fill your bladder quickly and irritate it. Keep yourself clean to help prevent odors and skin damage. Ask your doctor about special skin creams and cleansers that can protect the skin from urine. Consider wearing pads or adult diapers. Make sure to change them regularly, and always change them right after experiencing incontinence. General instructions Take iemy-url-ojwefjw and prescription medicines only as told by your health care provider. Use the bathroom about every 3 4 hours, even if you do not feel the need to urinate. Try to empty your bladder completely every time. After urinating, wait a minute. Then try to urinate again. Make sure you are in a relaxed position while urinating. If your incontinence is caused by nerve problems, keep a log of the medicines you take and the times you go to the bathroom. Keep all follow-up visits as told by your health care provider. This is important. Contact a health care provider if: You have pain that gets worse. Your incontinence gets worse. Get help right away if: You have a fever or chills. You are unable to urinate. You have redness in your groin area or down your legs. Summary Urinary incontinence refers to a condition in which a person is unable to control where and when topass urine. This condition may be caused by medicines, infection, weak bladder muscles, weak pelvic floor muscles, enlargement of the prostate (in men), or surgery. The following factors increase your risk for developing this condition: older age, obesity, and childbirth, menopause, neurological diseases, and chronic coughing. There are several types of urinary incontinence. They include urge incontinence, stress incontinence, overflow incontinence, and functional incontinence. This condition is usually treated first with lifestyle and behavioral changes, such as quitting smoking, eating a healthier diet, and doing regular pelvic floor exercises. Other treatment options include medicines, bulking agents, medical devices, electrical nerve stimulation, or surgery. This information is not intended to replace advice given to you by your health care provider. Make sure you discuss any questions you have with your health care provider. Document Released: 04/20/2005 Document Revised: 03/23/2018 Document Reviewed: 06/22/2017 [email or web address] Patient Education 2020 [employer]. 07/29/2021 08:21:46 Overactive Bladder, Adult Overactive Bladder, Adult Overactive bladder refers to a condition in which a person has a sudden need to pass urine. The person may leak urine if he or she cannot get to the bathroom fast enough (urinary incontinence). A person with this condition may also wake up several times in the night to go to the bathroom. Overactive bladder is associated with poor nerve signals between your bladder and your brain. Your bladder may get the signal to empty before it is full. You may also have very sensitive muscles thatmake your bladder squeeze too soon. These symptoms might interfere with daily work or social activities. What are the causes? This condition may be associated with or caused by: Urinary tract infection. Infection of nearby tissues, such as the prostate. Prostate enlargement. Surgery on the uterus or urethra. Bladder stones, inflammation, or tumors. Drinking too much caffeine or alcohol. Certain medicines, especially medicines that get rid of extra fluid in the body (diuretics). Muscle or nerve weakness, especially from: ?A spinal cord injury. ?Stroke. ?Multiple sclerosis. ?Parkinson's disease. Diabetes. Constipation. What increases the risk? You may be at greater risk for overactive bladder if you: Are an older adult. Smoke. Are going through menopause. Have prostate problems. Have a neurological disease, such as stroke, dementia, Parkinson's disease, or multiple sclerosis (MS). Eat or drink things that irritate the bladder. These include alcohol, spicy food, and caffeine. Are overweight or obese. What are the signs or symptoms? Symptoms of this condition include: Sudden, strong urge to urinate. Leaking urine. Urinating 8 or more times a day. Waking up to urinate 2 or more times a night. How is this diagnosed? Your health care provider may suspect overactive bladder based on your symptoms. He or she will diagnose this condition by: A physical exam and medical history. Blood or urine tests. You might need bladder or urine tests to help determine what is causing your overactive bladder. You might also need to see a health care provider who specializes in urinary tract problems (urologist). How is this treated? Treatment for overactive bladder depends on the cause of your condition and whether it is mild or severe. You can also make lifestyle changes at home. Options include: Bladder training. This may include: ?Learning to control the urge to urinate by following a schedule that directs you to urinate at regular intervals (timed voiding). ?Doing Kegel exercises to strengthen your pelvic floor muscles, which support your bladder. Toning these muscles can help you control urination, even if your bladder muscles are overactive. Special devices. This may include: ?Biofeedback, which uses sensors to help you become aware of your body's signals. ?Electrical stimulation, which uses electrodes placed inside the body (implanted) or outside the body. These electrodes send gentle pulses of electricity to strengthen the nerves or muscles that control the bladder. ?Women may use a plastic device that fits into the vagina and supports the bladder (pessary). Medicines. ?Antibiotics to treat bladder infection. ?Antispasmodics to stop the bladder from releasing urine at the wrong time. ?Tricyclic antidepressants to relax bladder muscles. ?Injections of botulinum toxin type A directly into the bladder tissue to relax bladder muscles. Lifestyle changes. This may include: ?Weight loss. Talk to your health care provider about weight loss methods that would work best for you. ?Diet changes. This may include reducing how much alcohol and caffeine you consume, or drinking fluids at different times of the day. ?Not smoking. Do not use any products that contain nicotine or tobacco, such as cigarettes and e-cigarettes. If you need help quitting, ask your health care provider. Surgery. ?A device may be implanted to help manage the nerve signals that control urination. ?An electrode may be implanted to stimulate electrical signals in the bladder. ?A procedure may be done to change the shape of the bladder. This is done only in very severe cases. Follow these instructions at home: Lifestyle Make any diet or lifestyle changes that are recommended by your health care provider. These may include: ?Drinking less fluid or drinking fluids at different times of the day. ?Cutting down on caffeine or alcohol. ?Doing Kegel exercises. ?Losing weight if needed. ?Eating a healthy and balanced diet to prevent constipation. This may include: ?Eating foods that are high in fiber, such as fresh fruits and vegetables, whole grains, and beans. ?Limiting foods that are high in fat and processed sugars, such as fried and sweet foods. General instructions Take ubwu-xwv-nnahisk and prescription medicines only as told by your health care provider. If you were prescribed an antibiotic medicine, take it as told by your health care provider. Do notstop taking the antibiotic even if you start to feel better. Use any implants or pessary as told by your health care provider. If needed, wear pads to absorb urine leakage. Keep a journal or log to track how much and when you drink and when you feel the need to urinate. This will help your health care provider monitor your condition. Keep all follow-up visits as told by your health care provider. This is important. Contact a health care provider if: You have a fever. Your symptoms do not get better with treatment. Your pain and discomfort get worse. You have more frequent urges to urinate. Get help right away if: You are not able to control your bladder. Summary Overactive bladder refers to a condition in which a person has a sudden need to pass urine. Several conditions may lead to an overactive bladder. Treatment for overactive bladder depends on the cause and severity of your condition. Follow your health care provider's instructions about lifestyle changes, doing Kegel exercises, keeping a journal, and taking medicines. This information is not intended to replace advice given to you by your health care provider. Make sure you discuss any questions you have with your health care provider. Document Released: 01/07/2010 Document Revised: 07/04/2019 Document Reviewed: 03/29/2018 [email or web address] Patient Education 2020 [employer]. Follow Up Care 07/08/2021 10:23:59 With:MARYCARMEN NAVA PA-C, URL Address: [address] [place] [address]. [place] [address] When: Unknown [facility] 04-07-2022 Evaluation note* Encounter Date Diagnosis Assessment Notes Treatment Notes Treatment Clinical Notes Jun, Dyspepsia (ICD-10 - K30) Jun, GERD (gastroesophageal reflux disease) (ICD-10 - K21.9) Continue Omeprazole 40mg bid without change. Follow up in 1 year Nov, Irritable bowel syndrome (ICD-10 - K58.9) [place] [place] Metamucil to 2 scoops daily. Encouraged pt to increase daily fiber intake. 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 For now we will hold off on any additional treatment but she could easily have additional sclerotherapy for any areas that bother her. I will see her back on an as-needed basis. [employer] Other 10-05-2021 Evaluation note* Encounter Date Diagnosis Assessment Notes Treatment Notes Treatment Clinical Notes Dec, Fibromyalgia (ICD-10 - M79.7) This is a patient with a history of fibromyalgia and chronic pain. This may have a contribution to her present problem Dec, Spinal stenosis, lumbar region without neurogenic claudication (ICD-10 - M48.061) This patient does not have true neurogenic claudication. Her symptoms come on at the end of the day not with walking 5,10, or even 20 minutes. Dec, Inflammation of left sacroiliac joint (ICD-10 - M46.1) By exam the patient has an extremely tender left sacroiliac joint. I again have recommended pain management. Apparently her just when she saw me the last time and she has no recollection of me offering that. I am sending her to the [facility] for treatment at her request. Dec, Spondylolisthesis, lumbar region (ICD-10 - M43.16) This patient has a definite spondylolisthesis and probably stenosis. But really does not truly have neurogenic claudication; it is not bilateral and appears to be more sacroiliac. She will try pain management first. [employer] Other chief complaint Narrative - ReportedGERRY VICTORIA is being seen for a consultation for atrial flutter and palpitations. F/u heart cath done in [facility].-[place] [address] DO Work Phone: Evaluation + Plan note Future Appointments Appointment Date:10/05/2021 11:00:00 AM Scheduled Provider:MARYCARMEN NAVA PA-C Location:[facility] Appointment Type:URO Office Visit [facility] Evaluation + Plan note Future Appointments Appointment Date:12/01/2022 01:00:00 PM Scheduled Provider:MARYCARMEN NAVA PA-C Location:[facility] Appointment Type:URO Office Visit [facility] Evaluation + Plan note Future Appointments Appointment Date:07/26/2022 08:00:00 AM Scheduled Provider: Location:[facility] Appointment Type:Surgery FT Appointment Date:12/01/2022 01:00:00 PM Scheduled Provider:MARYCARMEN NAVA PA-C Location:[facility]ments Appointment Date:03/14/2024 01:00:00 PM Scheduled Provider:MARYCARMEN NAAV PA-C Location:[facility] Appointment Type:URO Office Visit [facility] Allyson evaluation noteNo Assessments Information Available [facility] assessment information available [facility] Other evaluation note* Diagnosis Acute cholecystitis- Primary Body mass index (BMI) 31.0-31.9, adult [facility] Diagnosis Acute [facility]olecystitis- Primary [facility]* Diagnosis Acute cholecystitis [facility] Diagnosis Acute cholecystitis- Primary [facility] Diagnosis Acute cholecystitis- Primary Body mass index (BMI) 31.0-31.9, adult [facility]* Diagnosis Onset Date Resolution Status Edema chronic Inflammation chronic Leg ulcer, left chronic Obesity chronic Pain in wound chronic Uses roller walker chronic Varicose veins of both lower extremities chronic [facility] Work Phone: Evaluation note* Diagnosis Onset Date Resolution Status Pain in wound acute Edema chronic Inflammation chronic Leg ulcer, left chronic Obesity chronic Uses roller walker chronic Varicose veins of both lower extremities chronic Pain in wound acute Edema chronic Inflammation chronic Leg ulcer, left chronic Obesity chronic Uses roller walker chronic Varicose veins of both lower extremities chronic Candidiasis resolved [facility] Work Phone: History general Narrative - Reported* Type Description Date Medical History Degenerative disc disease Medical History Fibromyalgia Medical History Arthritis Medical History Anxiety Medical History Depression Medical History varicose veins Medical History chronic fatigue syndrome Medical History PSVT Surgical History Bilateral knee replacements Surgical History Procedure:H 1 Vaccine,Dec;Disea se: 2008 Surgical History HYSTERECTOMY 1983 Surgical History Procedure:colonoscopy;Disease: 2003 Surgical History Procedure:hysterectomy WITH BSO ;Disease: 1983 Surgical History Procedure:L CTR-SBS;Disease:Car pal tunnel syndrome 2012 Surgical History Procedure:Rcarpal tunnel releas e-SBS;Disease: 2012 Surgical History right knee replacement 0ct, 201 5 Surgical History RRF trigger release SBS 017 Surgical History Left total knee Arthroplasty pe r Dr. Calixto 05-30-16 Surgical History Nerve block lumbar spine. Dr. Adam samuel 08/2016 Surgical History LMF trigger release SBS 018 Surgical History VENA SEAL RIGHT LEG 10/16/2020 Hospitalization History see above [facility] Other Histrgy general Narrative - Reported* Type Description Date Medical History Degenerative disc disease Medical History Fibromyalgia Medical History Arthritis Medical History Anxiety Medical History Depression Medical History varicose veins Medical History chronic fatigue syndrome Medical History PSVT Surgical History Bilateral knee replacements Surgical History Procedure:H 1 Vaccine,Dec;Disea se: 2008 Surgical History HYSTERECTOMY 1983 Surgical History Procedure:colonoscopy;Disease: 2003 Surgical History Procedure:hysterectomy WITH BSO ;Disease: 1983 Surgical History Procedure:L CTR-SBS;Disease:Car pal tunnel syndrome 2012 Surgical History Procedure:Rcarpal tunnel releas e-SBS;Disease: 2012 Surgical History right knee replacement 0ct, 201 5 Surgical History RRF trigger release SBS 017 Surgical History Left total knee Arthroplasty pe r Dr. Calixto 05-30-16 Surgical History Nerve block lumbar spine. Dr. Adam samuel 08/2016 Surgical History LMF trigger release SBS 018 Surgical History VENA SEAL RIGHT LEG 10/16/2020 Surgical History Varithena Left leg 01/14 Hospitalization History see above [facility] Other History of Present illness Narrative* Patient is here for cardiovascular evaluation following recent hospitalization for what appeared thang acute cholecystitis. Records were retrieved and reviewed. Patient presented to [facility] with symptoms of abdominal pain and was diagnosed with what appeared to be gallbladder disease and peritonitis.She was transferred to [facility] where she underwent work-up. Apparently a gallbladder drain was placedwith plan to proceed with cholecystectomy at a later date. During that hospitalization the patient noted to have borderline abnormal EKG and elevated troponin which led to a cardiac catheterization that showed only mild disease. There is some notation about some regional motion abnormality but no echocardiogram was available for me to review. Clearly it appears that the patient had a type II myocardial infarction due to sepsis. The patient medication was adjusted and she was switched from her nursing home atenolol to metoprolol and losartan. She reported since then she has developed significant rash in her arm and lower extremity. She also has been describing intermittent episodes of palpitation. She denies chest pain, she denies lightheadedness, dizziness or syncope. * Assessment * 1. Recent presentation with type II myocardial infarction. Cardiac catheterization showed mild atherosclerotic coronary artery disease * 2. Hypertension * 3. Hyperlipidemia * 4. Cholecystitis patient still have gallbladder drain in * 5. Skin rash following recent adjustment of her medication unclear whether it is related to metoprolol or losartan * 6. Intermittent episode of palpitation * Plan * 1. Considering the patient recent what appeared drug-induced allergic reaction I suggested the patient she can go back to her original dose of atenolol 50 mg daily and discontinue metoprolol and losartan for now to see if her drug rash will improve * 2. Continue with risk factor adjustment * 3. I will follow the patient back in 3 months for reassessment * 4. The patient to keep her appointment with [facility] surgery for upcoming procedure of cholecystectomyand gallbladder drainage removal * 5. I advised the patient she can use some [id number] Claritin to address her what appeared thang drug induced allergic reaction [facility] [address] DO Work Phone: Hospital course Narrative No data available for this section [facility] Hospital Discharge instructions* Attachments The following attachments cannot be sent through Care Everywhere. * Percutaneous Transhepatic Cholangiogram Discharge Instructions (Nigerien) [facility] No data available for this section [facility] Additional Instructions Follow-up with your primary care doctor Return to ED if develop worsening [facility] Work Phone: Progress note No data available for this section [facility] Advance Directives No Advanced Directives Records Found Advance Directive Response Recorded Date/ Time Advance Directives Yes January 2:53pm Advance Directive Response Recorded Date/ Time Advance Directives Yes January 3:53pm Latest Code Status on File Code Status Date Activated Date Inactivated Comments Full Code 05/16/2022 7:36 AM 05/25/2022 3:36 PM Question Answer Comments Documentation of decision process for this code status: Discussed with patient or surrogate. This is the code status chosen by the patient/surrogate. Latest Code Status on File Code Status Date Activated Date Inactivated Comments Full Code 05/16/2022 7:36 AM 05/25/2022 3:36 PM Question Answer Comments Documentation of decision process for this code status: Discussed with patient or surrogate. This is the code status chosen by the patient/surrogate. Chief Complaint and Reason for Visit Chief Complaint Screening Screening Reason for Visit Encounter for colono scopy due to history of adenomatous colonic polyps Chief Complaint Screening Chief Complaint rt 06 29 hammertoe s Chief Complaint rt 06 29 hammertoe s preop Chief Complaint rt 06 29 hammertoe s preop i83.893 Chief Complaint rt 06 29 hammertoe s preop i83.893 I83.812 Chief Complaint Dysphagia Chief Complaint Dysphagia Dysphagia Chief Complaint Dysphagia Dysphagia e03.9 i10 r00.2 e78.2 m79.7 Chief Complaint M25.532 cp Chief Complaint M25.532 cp Gallbladder drain,needs checked Chief Complaint E03.9 Open Wound Fall Reason for Visit Edema Inflammation Leg ulcer, left Obesity Pain in wound Uses roller walker Varicose veins of both lower extremities Chief Complaint E03.9 Open Wound Fall pad with ulcers Reason for Visit Edema Inflammation Leg ulcer, left Obesity Pain in wound Uses roller walker Varicose veins of both lower extremities Chief Complaint Fall pad with ulcers Open Wound n/v Reason for Visit Edema Inflammation Leg ulcer, left Obesity Pain in wound Uses roller walker Varicose veins of both lower extremities Chief Complaint n/v Open Wound Open Wound Reason for Visit Pain in wound Edema Inflammation Leg ulcer, left Obesity Uses roller walker Varicose veins of both lower extremities Pain in wound Edema Inflammation Leg ulcer, left Obesity Uses roller walker Varicose veins of both lower extremities Candidiasis Assessments Diagnosis Onset Date Resolution Status Encounter for colonoscopy du e to history of adenomatous colonic polyps acute Family History No Family History Records Found Relationship Condition Age at Onset Recorded Date/T evie father Malignant neoplasm of colon Unknown family member Malignant neoplasm of colon Unknown Not Specified Congestive heart failure Unknown Unknown Family Member Name Dates Details Family history of congestive heart failure: Mother(V17.49, Z82.49) Status:Active Family history of cardiac pa cemaker: Father(V17.49, Z82.49) Status:Active Family history of myocardial infarction: Sister(V17.3, Z82.49) Status:Active Summary Purpose Reason for Referral Specialty Diagnoses / Procedures Referred By Megan hernandez Referred To Contact Radiology Diagnoses Acute cholecystitis Procedures XA CHOLANGIOGRAM EXISTING ACCESS (RHETT) XA INTERVENTIONAL RADIOLOGY VASCULAR BODY PROCEDURES XA INTERVENTIONAL RADIOLOGY PROCEDURE SERVICE Nikita Hein MD [address] [facility] [place] [address] [facility] [address] [place] [address] Referral ID Status Reason Start Date Expiration Date V isits Requested Visits Authorized [id number] Authorized 06/15/2022 06/15/2023 1 1 Reason Evaluate and Tr eat Diagnosis 1 Spondylolisthesis, l umbar region (M43.16) Referral Organization [facility] urosurgery Referring Provider First Name Michael Referring Provider Last Name Keanu Referring Provider Specialty Neurologica l Surgery Referred Organization [facility] Referred Provider Crow Hale Referred Address [address] [place] [phone] Referred Provider Specialty Pain Medicin e Referral Priority Routine General Notes Fore, Jazzmine M 021 02:41:55 PM >Received Jazzmine Bowles 12/30/2020 03:12:19 PM >Waiting for office notes to be locked before sending referral Additional Source Comments Goals (unrecognized section and content) Goals may be documented in a n alternate section No data available for this sectionNo InformationNo InformationNo InformationNo InformationNo InformationNo Information No data available for this sectionNo InformationGoals may be documented in an alternate sectionGoals may be documented in an alternate sectionGoals may be documented in an alternate sectionGoals may be documented in an alternate section No data available for this section No data available for this section No data available for this section No data available for this sectionNo InformationGoals may be documented in an alternate sectionGoals may be documented in an alternate sectionGoals may be documented in an alternate sectionNo Information No data available for this sectionGoals may be documented in an alternate section INFORMATION SOURCE (unrecogn ized section and content) DATE CREATED AUTHOR 07/07/2021 [facility] dical Specialist DATE CREATED AUTHOR AUTHOR'S ORGANIZ ATION 07/02/2022 [employer] DATE CREATED AUTHOR AUTHOR'S ORGANIZ ATION 09/14/2022 [facility] DATE CREATED AUTHOR AUTHOR'S ORGANIZ ATION 10/07/2022 [facility] DATE CREATED AUTHOR AUTHOR'S ORGANIZ ATION 03/04/2023 [facility] ical Center DATE CREATED AUTHOR AUTHOR'S ORGANIZ ATION 03/06/2023 [facility] dical Specialists [facility] DATE CREATED AUTHOR AUTHOR'S ORGANIZ ATION 03/14/2023 [facility] REASON FOR VISIT (unrecogniz ed section and content) Reason Onset Date Comments Advice/health education 05/27/2022 Specialty Diagnoses / Procedures Referred By Megan hernandez Referred To Contact Radiology Diagnoses Acute cholecystitis Procedures XA CHOLANGIOGRAM EXISTING ACCESS (RHETT) XA INTERVENTIONAL RADIOLOGY VASCULAR BODY PROCEDURES XA INTERVENTIONAL RADIOLOGY PROCEDURE SERVICE Nikita Hein MD [address] [place] [address] [place] [address] S [address] [place], [place] [address] [place] [address] Referral ID Status Reason Start Date Expiration Date Visits Re quested Visits Authorized [id number] Closed 06/15/2022 06/15/2023 1 1 Reason Onset Date Comments Advice/health education 07/06/2022 Care Team (unrecognized sect ion and content) Team Status: Active Member Role Status Dates Ward Zuniga , Primary Care Provider Active Team Status: Inactive Member Role Status Dates Ward Zuniga , Primary Care Provider Active Adelia Saldana APRN Attending Provider Active Team Status: Inactive Member Role Status Dates Ward Zuniga , Primary Care Provider Active Pravin Granado MD Emergency Provider Active Team Status: Active Member Role Status Dates Ward Zuniga , Primary Care Provider Active Adelia Saldana APRN Attending Provider Active Team Status: Inactive Member Role Status Dates Ward Zuniga , Primary Care Provider, Attending Sophie perez Active Team Status: Inactive Member Role Status Dates Ward Zuniga , Primary Care Provider Active Maico Perla , Emergency Provider Active Team Status: Inactive Member Role Status Dates Ward Zuniga , Primary Care Provider Active Molina Villanueva MD Attending Provider Active Team Status: Inactive Member Role Status Dates Ward Zuniga DO Primary Care Provider Active Ephraim Casanova APRN Attending Provider Active Team Status: Inactive Member Role Status Dates Keith Griffith PA-C Emergency Provider Active Ward Zuniga DO Primary Care Provider Active Team Status: Inactive Member Role Status Dates Ward Zuniga DO Primary Care Provider Active Keith Griffith PA-C Emergency Provider Active Team Status: Inactive Member Role Status Dates Ward Zuniga DO Primary Care Provider Active Ward Mtz MD Attending Provider Active FOR RECORDS PERTAINING TO PATIENTS WHO ARE OR HAVE BEEN ENROLLED IN A CHEMICAL DEPENDENCY/SUBSTANCEABUSE PROGRAM, SOME INFORMATION MAY BE OMITTED. This clinical summary was aggregated from multiple sources. Caution should be exercised in using it in the provision of clinical care. This summary normalizes information from multiple sources, and as a consequence, information in this document may materially change the coding, format and clinical context of patient data. In addition, data may be omitted in some cases. CLINICAL DECISIONS SHOULD BE BASED ON THE PRIMARY CLINICAL RECORDS. [employer] provides no warranty or guarantee of the accuracy or completeness of information in this document.
--- NOTE | 2023-03-15 10:08 | VEIN_ITS ---
[address] [address] Patient Name: GERRY YOUNGBLOOD MRN: [id number] date: 1955 Sex: F Assigned Patient Location: Current Patient Location: Accession/Order Number: [id number] Exam Date: 03/15/2023 10:10 Report Date: 03/15/2023 11:12 At the request of: VICKIE CORDON Procedure: VC Endovenous Perf Ablation LT EXAMINATION: VC Endovenous Perf Ablation LT INDICATIONS: I83.813 Bilateral painful varicose veins OPERATIVE REPORT: Diagnosis: Superficial venous reflux, incompetent perforating veins Procedure: Endovenous laser ablation of the left video producer(s) Procedure: The patient was positioned supine on the table and the leg was prepped and draped to allow for visualization during venous access. A sterile cover was draped over a 16 mhz ultrasound probe. Venous mapping was performed prior to the procedure noting location and size of vessel(s). Winch Truck Operator vein 1: Left distal medial lower leg. The diameter of the vein ranged from 4 mm's below the muscular fascia to 4 mm's at the entry point. Using a 30 gauge needle the entry site was anesthetized with 2 cc of 1% buffered lidocaine. Access was gained percutaneously, with a 21-gauge needle, into the video producer vein under ultrasound guidance. The needle was advanced into the desired position and the pre-measured 400-micron fiber was then inserted into the needle and locked in place. The position of the fiber was imaged with ultrasound guidance. The fiber tip was visualized to be 25 mm from the deep vessel. An anesthetic solution of 6 cc 1% buffered lidocaine was delivered along the course of the vein under ultrasound guidance using a syringe. A final positioning check of the laser fiber tip was performed. The laser was activated by means of a foot-pedal and the fiber and needle were withdrawn together in accordance to the desired joules per treatment area/spot weld. areas/spot welds were performed, and the total number of joules delivered was 216. The total time of energy delivery was 27 seconds. A duplex ultrasound revealed compressibility and flow of the deep system immediately after the procedure. Winch Truck Operator vein 2: Left mid medial lower leg. The diameter of the vein ranged from 4 mm's below the muscular fascia to 3.5 mm's at the entry point. Using a 30 gauge needle the entry site was anesthetized with 2 cc of 1% buffered lidocaine. Access was gained percutaneously, with a 21-gauge needle, into the video producer vein under ultrasound guidance. The needle was advanced into the desired position and the pre-measured 400-micron fiber was then inserted into the needle and locked in place. The position of the fiber was imaged with ultrasound guidance. The fiber tip was visualized to be 30 mm from the deep vessel. An anesthetic solution of 5 cc 1% buffered lidocaine was delivered along the course of the vein under ultrasound guidance using a syringe. A final positioning check of the laser fiber tip was performed. The laser was activated by means of a foot-pedal and the fiber and needle were withdrawn together in accordance to the desired joules per treatment area/spot weld. areas/spot welds were performed, and the total number of joules delivered was 102. The total time of energy delivery was 13 seconds. A duplex ultrasound revealed compressibility and flow of the deep system immediately after the procedure. Hemostasis of the access site was achieved and dressed. A 20-30 mm compression stocking over coban was placed on the treated leg. Post-Op instructions were given, and a follow-up appointment was made. CONCLUSION: 1. Technically successful endovenous laser ablation of two left video producer veins Electronically authenticated by: VICKIE CORDON Date: 03/15/2023 11:12
[2023-03-15] MEDS: LIDOCAINE HCL 20 ML, SODIUM BICARBONATE 2 MEQ INJ (10:38)
== END 2023-03-15 09:58 | disposition home or self-care (01) ==
LOC: VC 09:57
PROVIDERS: PCP Radiology Diagnostic Radiology; Visit Provider Radiology Diagnostic Radiology
DX: I83.813 Varicose veins of bilateral lower extremities with pain (principal)
CPT/HCPCS: 36478

== ENCOUNTER 2023-03-28 09:58 | Outpatient (OUT) | payer MEDICARE, SELFPAY ==
--- NOTE | 2023-03-28 09:59 | VEIN_ITS ---
Patient Name: GERRY YOUNGBLOOD MR#: [id number] : 1955 Exam Date: 03/28/2023 Ordering Doctor: DR SOLOMON JACKSON M.D. RADIOLOGY REPORT PROCEDURE: [facility] - OFFICE VISIT FOLLOW UP COMPARISON: [facility], 03/06/2023. PROGRESS NOTES: The patient reports no significant problems following intravenous laser ablation of left leg incompetent perforating veins. The patient does report some intermittent sharp pains which she attributes to her sciatica and or fibromyalgia. The patient has worn her compression stocking. The patient did try to walk. Patient did not require oral analgesics. Physical exam demonstrates no significant erythema or warmth to suggest cellulitis or thrombophlebitis. Remote healed ulceration with no active ulceration. Review of the ultrasound performed the same day demonstrates occlusive thrombus extending throughout the treated perforating veins. No deep vein thrombus. The patient expressed a desire to proceed with treatment of incompetent right small saphenous vein. [facility]: 1. Successful ablation of left leg treated incompetent perforating vein 2. Persistent incompetent bilateral small saphenous vein. PLAN: Intravenous laser ablation right small saphenous vein Nurse notes, history and physical were reviewed and confirmed, see attached forms. The nurse was present throughout the physical exam and consultation Dictated by: Solomon Jackson MD on 03/28/2023 at 10:24 Approved by: Solomon Jackson MD on 03/28/2023 at 10:30
--- NOTE | 2023-03-28 09:59 | VEIN_ITS ---
Patient Name: GERRY YOUNGBLOOD MR#: [id number] : 1955 Exam Date: 03/28/2023 Ordering Doctor: DR SOLOMON JACKSON M.D. RADIOLOGY REPORT PROCEDURE: VC EXT VENOUS LT LIMITED COMPARISON: None. INDICATIONS: I80.02 Phlebitis of superficial veins of lt lower extremity TECHNIQUE: Lower extremity may scale and Duplex Doppler evaluation of the deep venous system from the inguinal ligament through the calf veins. FINDINGS: REGION: Left lower extremity. THROMBI: Negative for DVT. Heat induced thrombus visualized at mid/med bean snapper and distal/med bean snapper. COMPRESSIBILITY: Non-compressible segments corresponding to thrombus FLOW: Areas of no flow corresponding to thrombus CONCLUSION: Post ablation occlusion of treated incompetent perforating veins Dictated by: Solomon Jackson MD on 03/28/2023 at 10:18 Approved by: Solomon Jackson MD on 03/28/2023 at 10:20
--- OUTSIDE RECORDS SUMMARY | 2023-03-28 10:07 | XMS_ITS | CCD ---
Author Name Unknown Address [address] [facility] [facility] [place] [address] Organization [facility] Care Team Providers Care Combination Window Installer Name Role Phone Ward Zuniga Primary Care Provider [phone] Pardeep Barroso Attending Provider Jai Tomas Attending Provider [phone] Ward Zuniga Primary Care Provider [phone] Jai Tomas Attending Provider [phone] Ward Mtz Attending Provider [phone] Ward Zuniga Primary Care Provider [phone] Jai Tomas Attending Provider [phone] Ward Mtz Attending Provider [phone] WARD ZUNIGA Primary Care Physician Unavail able Latonya Frost Unavailable Unavailable Michael Colunga Unavailable Ward Mtz Unavailable Balwinder Parker Unavailable DO Ward Zuniga Primary Care Provider MD Molina Villanueva Attending Provider DO Ward Zuniga Attending Provider [phone] DO Ward Zuniga Primary Care Provider CUBA Casanova Attending Provider ISI Griffith Emergency Provider Unavailable Primary Care Provider Unavailabl e DO Ward Zuniga Primary Care Provider CUBA Casanova Attending Provider ISI Griffith Emergency Provider [phone] Ward Zuniga Unavailable Unavailable Unavailable CONNIE COTE [...] Attending Unavaila Dr. Ward Robin Primary Care [facility] DO Ward Samuel Primary Care Provider DO Ward Zuniga Attending Provider CUBA Saldana Attending Provider [phone] DO Maico Perla Emergency Provider MD Ward Mtz Attending Provider DO Ward Zuniga Primary Care Provider MD Ward Mtz Attending Provider CUBA Saldana Attending Provider MD Pravin Granado Emergency Provider MARYCARMEN NAVA Attending Unavailable Ketty Alicia Attending Unavailable Talon Mcbride Referring Unavailabl e Zulay Junior Attending Unavailab le Talon Mcbride Admitting Unavailabl e Talon Mcbride Attending Unavailabl e Talon Mcbride Referring Unavailabl e RANDY, Ronobir R Admitting Unavailable RANDY, Ronobir R Attending Unavailable Talon Mcbride Admitting Unavailabl e Talon Mcbride Attending Unavailabl e Talon Mcbride Referring Unavailabl e DO Zach Mcdowell Primary Care Provider MD Pravin Granado Emergency Provider CUBA Saldana Attending Provider Zach Ward Primary Care Unavailable Maico Perla Admitting Unavailable Maico Perla Attending Unavailable Keith Griffith Admitting Unavailable Keith Griffith Attending Unavailable Zach, Ward Primary Care Unavailable Pravin Granado Admitting Unavailable Pravin Granado Attending [facility]available [facility] Unavailable Ward Zuniga Admitting [facility] Unavailable Ward Zuniga Attending [facility]available [facility] Unavailable CopAdelia patino Admitting Unavailable Adelia Saldana Attending Unavailable [facility] Care Unavailable Ward Mtz Admitting Unavailable Ward Mtz Attending Unavailable Adelia Saldana Admitting Unavailable Adelia Saldana Attending Unavailable [facility] Unavailable Ephraim Casanova Admitting Unavailable Ephraim Casanova Attending Unavailable Keith Griffith Admitting Unavailable Keith Griffith Attending Unavailable Zach, Ward Primary Care Unavailable CONNIE LEARY Attending Unavailable WARD ZUNIGA Attending Unavailable WARD ZUNIGA Referring Unavailable CONNIE LEARY Attending Unavailable CONNIE LEARY Referring Unavailable CONNIE LEARY Attending Unavailable CONNIE LEARY Referring Unavailable Unavailable Unavailable Unavailable Allergies Allergy Classification Reported Allergen(s) Allergy Type Date of Onset Reaction(s) Facility (17 sources) contact metal agent; Translations: [contact metal agent] Propensity to adverse reactions 9 Hives [facility] (8 sources) Adhesive bandage; Translations: [Adhesive Bandage] Drug allergy rash [facility] [place] (20 sources) DULoxetine; Translations: [duloxetine] Drug Allergy unable to function properly d/t drowsiness, swollen feet, Unknown [facility] Other (13 sources) meloxicam; Translations: [meloxicam] Drug Allergy ., Unknown [facility] Other (20 sources) pregabalin; Translations: [pregabalin] Drug Allergy 3 Swelling [facility] Other (19 sources) Adhesive agent; Translations: [adhesive] Propensity to adverse reactions 2 [facility] (10 sources) oxaprozin; Translations: [oxaprozin] Drug Allergy Unknown [facility] (10 sources) rOPINIRole; Translations: [Requip] Drug Allergy dizziness [facility] (10 sources) tiZANidine; Translations: [tiZANidine] Drug Allergy Unknown [facility] (20 sources) DULoxetine; Translations: [DULOXETINE HCL] Drug Allergy 3 Agitation [facility] (20 sources) Pregabalin Propensity to adverse reactions to drug 3 [facility] Bandage Tape; Translations: [BANDAGE TAPE] Propensity to adverse reactions 3 Itching, Redness [facility] (1 source) Adhesive Bandages; Translations: [Adhesive Bandages] [facility]: (1 source) Adhesive Paper TAPE; Translations: [Adhesive Paper TAPE] Allergy to drug (finding) [facility] Work Phone: (1 source) meloxicam; Translations: [Mobic] Drug Allergy [facility] (1 source) oxaprozin; Translations: [Daypro] Drug Allergy [facility] (1 source) tiZANidine; Translations: [Zanaflex] Drug Allergy [facility] (1 source) pregabalin Drug Allergy [facility] Repository Medications Current Medications Medication Drug [...] DAILY. Quantity: 90 Refills: 3 Ordered: 30-Jun-2022 Natan Marinelli MD Active atenolol 50 mg oral tablet (20 [...] day(s), # 28 cap(s), Refills(s) 0, Pharmacy: [facility] [id number], 154, cm, 09/26/22 23:21:00 EDT, Height/Length Dosing, [...] day(s), # 14 tab(s), Refills(s) 0, Pharmacy: [facility] [id number], 154, cm, 09/26/22 23:21:00 EDT, Height/Length Dosing, [...] urethra., # 42.5 gm, Refills(s) 5, Pharmacy: [facility] [id number], 154, cm, 07/29/21 11:09:00 EDT, Height/Length Dos... [...] Start: 05-31-2016 take 1 tablet by pablo th once daily levothyroxine 150 mcg (0.15 mg) [...] 11:00pm Start: 10-05-2022 take 1 tablet by [facility] once daily Multivitamin Active 1 TAB PO [...] 10:00am Start: 11-29-2012 take 1 capsule by [facility] once daily omeprazole 20 mg Cap-DR 20 [...] Daily, # 90 tab(s), Refills(s) 3, Pharmacy: [facility] [id number], 154, cm, 09/26/22 23:21:00 EDT, Height/Length Dosing, [...] day(s), # 30 tab(s), Refills(s) 1, Pharmacy: [facility] [id number], 154, cm, 07/29/21 11:09:00 EDT, Height/Length Dosing, 88, kg, 07/29/21 11:09:00 EDT, Weight Dosing Start Date: 07/29/21 Stop Date: 09/27/21 Status: Ordered Start: 07-29-2021 End: 08-28-2021 take 1 tablet by mouth once daily oxybutynin 5 mg ER Tab 5 mg = 1 tab(s), Oral, Daily, X 30 day(s), # 30 tab(s), Refills(s) 0, Pharmacy: [facility] [id number], 154, cm, 07/29/21 11:09:00 EDT, Height/Length Dosing, 88, kg, 07/29/21 11:09:00 EDT, Weight Dosing Start Date: 07/29/21 Stop Date: 08/28/21 Status: Ordered oxyCODONE hydrochloride 5 mg oral tablet (1 source) Opioid Agonist Start: 07-26-2022 End: 07-29-2022 oxyCODONE 5 mg Tab 5 mg = 1 tab(s), Oral, q6hr, PRN Pain 8-10, X 3 day(s), # 12 tab(s), Refills(s) 0, Pharmacy: [facility] [id number], 154, cm, 07/18/22 14:13:00 EDT, Height/Length Dosing, [...] 1 tablet by pablo th twice daily Requip 2 mg Tab 2 [...] (9 sources) take 1 capsule by mo [facility] once daily Vitamin D3 2000 UNIT 1 [...] Coronary atherosclerosis; Translations: [Atherosclerotic heart disease of [place] coronary artery without angina pectoris] Onset: 3 [...] current use of drug therapy; Translations: [Other continuous churn buttermaker (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) drug therapy] Onset: 3 Episodic Other [...] [Cellulitis of unspecified part of limb] Onset: 3 Episodic Spondylosis; intervertebral disc disorders; other back problems (20 sources) Degeneration of lumbar intervertebral disc; Translations: [Other intervertebral disc degeneration, lumbar region] Onset: 1 Resolved: 1 01-13-2021 Chronic Superficial injury; contusion (4 sources) Contusion of knee; Translations: [Contusion of unspecified knee, initial encounter] 11-04-2022 Episodic Thyroid disorders (20 sources) Hypothyroidism; Translations: [Hypothyroidism, unspecified] Onset: 3 05-25-2016 Chronic Unclassified (9 sources) Inflammatory disorder; Translations: [Inflammation] 10-05-2022 Unclassified (1 source) Non-pressure chronic ulcer of other part of left lower leg limited to breakdown of skin; Translations: [Non-pressure chronic ulcer of other part of left lower leg limited to breakdown of skin] Onset: 3 Unclassified (1 source) Non-pressure chronic ulcer of unspecified part of left lower leg limited to breakdown of skin; Translations: [Non-pressure chronic ulcer of unspecified part of left lower leg limited to breakdown of skin] Onset: 3 Unclassified (1 source) 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; Translations: [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] Onset: 3 Unclassified (1 source) Pain in left knee; Translations: [Pain in left knee] Onset: 3 Unclassified (1 source) Encounter for change or removal of drains; Translations: [Encounter for change or removal of drains] Onset: 3 Unclassified (1 source) Pain in left wrist; Translations: [Pain in left wrist] Onset: 3 Urinary tract infections (10 sources) Urinary tract infectious disease; Translations: [Urinary tract infection, site not specified] Onset: 2 Episodic Varicose veins of lower extremity (20 sources) Varicose veins of lower extremity; Translations: [Venous ulcer of leg] 10-23-2018 Episodic Viral infection (16 sources) Herpes simplex; Translations: [Herpes simplex type 2 infection] 05-25-2016 Episodic Past or Other Problems Problem Classification [...] Results Test Name Value Interpretation Reference Range Facility Ambulatory Visit Summaryon 1 05-03-2022 Ambulatory Visit Summary GERRY VICTORIA :1955 Visit Date:03/02/2023 Ambulatory Visit Instructions Your Diagnosis Urinary incontinence OAB (overactive bladder) Recurrent UTI Tests Performed Urnls Dip Stick Auto w/o Microscopy POC 65410 Your Care Team Attending Physician - DARRYN [...] MARYCARMEN NAVA PA-C Where: [facility] Patient Educationon 03-02-20 Patient Education Obstetrics and [...] provider. Document Revised: 07/22/2021 Document Reviewed: 07/22/2021 [employer] Patient Education ? 2022 Food Reporter. [facility] Urology Office/Clinic Noteon 03-02-2023 Urology Office/Clinic Note [...] complaints: denies History of Present Illness staff [facility] reviewed and agree. Review of Systems PHQ [...] In 1 year Additional Instructions: Patient Education Gema Luevano, personally scribed for Ketty HAYES on 03/02/2023 [...] Alcohol - (more content not included)... Normal [facility] Comment on above: Result Comment: Elec tronically Signed By: DARRYN Alicia APRN, [place] X\.br\Date and Time Signed: 03/02/23 13:39 EST\.br\Electronically Co-Signed By: Gema Erickson\.br\Date and Time Co-Signed: 03/02/23 13:37 EST Alanine aminotransferase [En zymatic activity/volume] in Serum or PlasmaOrdered By: Pravin Granado on 12-17-2022 ALT [Catalytic activity/Vol] 11 U/L 7-52 [facility] Albumin [Mass/volume] in Ser um or Plasma by Bromocresol green (BCG) dye binding methoOrdered By: Pravin Granado on 12-17-2022 Albumin BCG dye [Mass/Vol] 4.4 g/dL 3.5-5.7 [facility] Alkaline phosphatase [Enzyma tic activity/volume] in Serum or PlasmaOrdered By: Pravin Granado on 12-17-2022 ALP [Catalytic activity/Vol] 79 U/L 34-104 [facility] Amylaseon 12-17-2022 Amylase [Catalytic activity/Vol] 22 U/L Low 29-103 [facility] Comment on above: Performed By: #### L IPASE, CMP, UMU #### [address] Amylase [Enzymatic activity/ volume] in Serum or PlasmaOrdered By: Pravin Granado on 12-17-2022 Amylase [Catalytic activity/Vol] 22 U/L 29-103 [facility] Aspartate aminotransferase [ Enzymatic activity/volume] in Serum or PlasmaOrdered By: Pravin Granado on 12-17-2022 AST [Catalytic activity/Vol] 22 U/L 13-39 [facility] Basophils Auto (Bld) [#/Vol] Ordered By: Pravin Granado on 12-17-2022 Basophils (Bld) [#/Vol] 0.0 10*3/uL 0.0-0.2 [facility] Basophils/100 WBC Auto (Bld) Ordered By: Pravin Granado on 12-17-2022 Basophils/100 WBC (Bld) 0.9 % . [facility] Bilirubin.total [Mass/volume ] in Serum or PlasmaOrdered By: Pravin Granado on 12-17-2022 Bilirubin [Mass/Vol] 0.7 mg/dL 0.3-1.0 [facility] Calcium [Mass/volume] in Ser um or PlasmaOrdered By: Pravin Granado on 12-17-2022 Calcium [Mass/Vol] 9.4 mg/dL 8.6-10.3 [facility] Carbon dioxide, total [Moles /volume] in Serum or PlasmaOrdered By: Pravin Granado on 12-17-2022 CO2 [Moles/Vol] 29.9 mmol/L 21.0-31.0 [facility] Chloride [Moles/volume] in S nia or PlasmaOrdered By: Pravin Granado on 12-17-2022 Chloride [Moles/Vol] 101 mmol/L 98-107 [facility] Complete Blood Count Auto Di ffon 12-17-2022 Basophils (Bld) [#/Vol] 0.0 10*3/uL Normal 0.0-0.2 [facility] Comment on above: Result Comment: PERF ORMED BY: [place] [address] PATHOLOGIST [employer] L[employer] WILDER BOTELLO M.D. Performed By: #### C BC #### [address] Basophils/100 WBC (Bld) 0.9 % Normal . [facility] Comment on above: Performed By: #### C BC #### [facility] [address] [place] [address] [place] Eosinophils (Bld) [#/Vol] 0.1 10*3/uL Normal 0.0-0.45 [facility] Comment on above: Performed By: #### C BC #### [place] [address] [place] Eosinophils/100 WBC (Bld) 2.9 % Normal . [facility] Comment on above: Performed By: #### C BC #### [address] Erythrocyte distribution width (RBC) [Ratio] 17.1 % High 11.9-15.3 [facility] Comment on above: Performed By: #### C BC #### [address] Hematocrit (Bld) [Volume fraction] 33.5 % Low 34.0-46.4 [facility] Comment on above: Performed By: #### C BC #### [address] Hemoglobin (Bld) [Mass/Vol] 11.0 g/dL Low 11.8-15.4 [facility] Comment on above: Performed By: #### C BC #### [address] Lymphocytes (Bld) [#/Vol] 1.2 10*3/uL Normal 1.00-4.8 [facility] Comment on above: Performed By: #### C BC #### [address] Lymphocytes/100 WBC (Bld) 24.6 % Normal . [facility] Comment on above: Performed By: #### C BC #### [address] MCH (RBC) [Entitic mass] 27.0 pg Normal 24.7-34.3 [facility] Comment on above: Performed By: #### C BC #### [address] MCV (RBC) [Entitic vol] 82.6 fL Normal 80-100 [facility] Comment on above: Performed By: #### C BC #### [address] Mean Corpuscular HGB Conc 32.7 g/dL Normal 32.0-35.0 [facility] Comment on above: Performed By: #### C BC #### [address] Monocytes (Bld) [#/Vol] 0.3 10*3/uL Normal 0.0-0.8 [facility] Comment on above: Performed By: #### C BC #### [facility] [address] [place] [address] [place] Monocytes/100 WBC (Bld) 19.78 % Normal 0.00-20.00 [facility] Comment on above: Performed By: #### C BC #### [address] Monocytes/100 WBC (Bld) 6.1 % Normal . [facility] Comment on above: Performed By: #### C BC #### [address] Neutrophils (Bld) [#/Vol] 3.1 10*3/uL Normal 1.8-7.7 [facility] Comment on above: Performed By: #### C BC #### [address] Neutrophils/100 WBC (Bld) 65.5 % Normal . [facility] Comment on above: Performed By: #### C BC #### [address] NRBC% 0.3 /100{WBC} Normal 0-0.5 [facility] Comment on above: Performed By: #### C BC #### [address] Platelet mean volume (Bld) [Entitic vol] 8.1 fL Normal 6.3-10.7 [facility] Comment on above: Performed By: #### C BC #### [place] [address] [place] Platelets (Bld) [#/Vol] 236 10*3/uL Normal 150-450 [facility] Comment on above: Performed By: #### C BC #### [place] [address] [place] RBC (Bld) [#/Vol] 4.05 10*6/uL Normal 3.60-5.00 [facility] Comment on above: Performed By: #### C BC #### [address] [place] [address] [place] WBC (Bld) [#/Vol] 4.8 10*3/uL Normal 3.8-11.6 [facility] Comment on above: Performed By: #### C BC #### [address] Comprehensive Metabolic Pane lit 12-17-2022 Albumin [Mass/Vol] 4.4 g/dL Normal 3.5-5.7 [facility] Comment on above: Performed By: #### L IPASE, CMP, UMU #### [address] Albumin/Globulin [Mass ratio] 1.4 {ratio} Normal [facility] Comment on above: Performed By: #### L IPASE, CMP, UMU #### [address] ALP [Catalytic activity/Vol] 79 U/L Normal 34-104 [facility] Comment on above: Performed By: #### L IPASE, CMP, UMU #### [address] ALT [Catalytic activity/Vol] 11 U/L Normal 7-52 [facility] Comment on above: Performed By: #### L IPASE, CMP, UMU #### [address] Anion gap [Moles/Vol] 9.4 mmol/L Normal 6.0-15.0 [facility] Comment on above: Performed By: #### L IPASE, CMP, UMU #### [address] AST [Catalytic activity/Vol] 22 U/L Normal 13-39 [facility] Comment on above: Performed By: #### L IPASE, CMP, UMU #### [address] Bilirubin [Mass/Vol] 0.7 mg/dL Normal 0.3-1.0 [facility] Comment on above: Performed By: #### L IPASE, CMP, UMU #### [facility] [address] [place] [address] [place] Calcium [Mass/Vol] 9.4 mg/dL Normal 8.6-10.3 [facility] Comment on above: Performed By: #### L IPASE, CMP, UMU #### [facility] [address] Chloride [Moles/Vol] 101 mmol/L Normal 98-107 [facility] Comment on above: Performed By: #### L IPASE CMP, UMU #### [facility] [address] CO2 [Moles/Vol] 29.9 mmol/L Normal 21.0-31.0 [facility] Comment on above: Performed By: #### L IPASE CMP, UMU #### [address] Creatinine [Mass/Vol] 0.90 mg/dL Normal 0.60-1.20 [facility] Comment on above: Performed By: #### L IPASE CMP, UMU #### [facility] [address] [place] [address] [place] GFR/1.73 sq M.predicted MDRD (S/P/Bld) [Vol rate/Area] mL/min/{1.73_m2} [facility] Comment on above: Performed By: #### L IPASE CMP, UMU #### [facility] [address] [place] [address] [place] Globulin (S) [Mass/Vol] 3.1 g/dL [facility] Comment on above: Performed By: #### L IPASE, CMP, UMU #### [facility] [address] [place] [address] [place] Glucose [Mass/Vol] 119 mg/dL High 70-100 [facility] Comment on above: Result Comment: [place] Glucose Reference Range is dependent on time and content of last meal. Glucose of more than 200 mg/dL in a nonstressed, ambulatory subject supports the diagnosis of Diabetes Mellitus. ADA recommended reference range Performed By: #### L IPASE, CMP, UMU #### [facility] [address] Potassium [Moles/Vol] 3.3 mmol/L Low 3.5-5.1 [facility] Comment on above: Performed By: #### L IPASE, CMP, UMU #### [facility] [address] [place] [address] [place] Protein [Mass/Vol] 7.5 g/dL Normal 6.4-8.9 [facility] Comment on above: Performed By: #### L IPASE, CMP, UMU #### [facility] [address] Sodium [Moles/Vol] 137 mmol/L Normal 136-145 [facility] Comment on above: Performed By: #### L IPASE, CMP, UMU #### [facility] [address] [place] [address] [place] Urea nitrogen [Mass/Vol] 14 mg/dL Normal 7-25 [facility] Comment on above: Performed By: #### L IPASE, CMP, UMU #### [address] Creatinine [Mass/volume] in Serum or PlasmaOrdered By: Pravin Granado on 12-17-2022 Creatinine [Mass/Vol] 0.90 mg/dL 0.60-1.20 [facility] ECG 12 lead ECGon 12-17-2022 ECG 12 lead ECG [facility] [place] [address] [place] [address] Electrocardiograph Report Signed Patient: Gerry Victoria MR#: [id number] 10 : 1955 Acct:[id number] Age/Sex: 67 / F ADM Date: 12/17/22 Loc: ER Room: Type: [facility] ER Attending Dr: Ordering Provider: Pravin Granado [...] By Pravin Granado MD 12/17/22 1534 Normal [facility] Eosinophils Auto (Bld) [#/Vo l]Ordered By: Pravin Granado on 12-17-2022 Eosinophils (Bld) [#/Vol] 0.1 10*3/uL 0.0-0.45 [facility] Eosinophils/100 WBC Auto (Bl d)Ordered By: Pravin Granado on 12-17-2022 Eosinophils/100 WBC (Bld) 2.9 % . [facility] Erythrocyte distribution wid th Auto (RBC) [Ratio]Ordered By: Pravin Granado on 12-17-2022 Erythrocyte distribution width (RBC) [Ratio] 17.1 % 11.9-15.3 [facility] Globulin Calc (S) [Mass/Vol] Ordered By: Pravin Granado on 12-17-2022 Globulin (S) [Mass/Vol] 3.1 g/dL [facility] Glucose [Mass/volume] in Ser um or PlasmaOrdered By: Pravin Granado on 12-17-2022 Glucose [Mass/Vol] 119 mg/dL 70-100 [facility] Comment on above: ADA recommended refe rence rangeRandom Glucose Reference Range is dependent on time and content of last meal. Glucose of more than 200 mg/dL in a nonstressed, ambulatory subject supports the diagnosis of Diabetes Mellitus. Hematocrit Auto (Bld) [Volum e fraction]Ordered By: Pravin Granado on 12-17-2022 Hematocrit (Bld) [Volume fraction] 33.5 % 34.0-46.4 [facility] Hemoglobin [Mass/volume] in BloodOrdered By: Pravin Granado on 12-17-2022 Hemoglobin (Bld) [Mass/Vol] 11.0 g/dL 11.8-15.4 [facility] Leukocytes [#/volume] correc poly for nucleated erythrocytes in Blood by Automated counOrdered By: Pravin Granado on 12-17-2022 WBC corrected for nucl RBC Auto (Bld) [#/Vol] 4.8 10*3/uL 3.8-11.6 [facility] Lipaseon 12-17-2022 Lipase [Catalytic activity/Vol] 8.0 U/L Low 11.0-82.0 [facility] Comment on above: Result Comment: PERF ORMED BY: [facility] [address] [place] [address] PATHOLOGIST [employer] CONTACT LENS WILDER BOTELLO M.D. Performed By: #### L MONICA MEYERS AMY #### [address] Lipase [Enzymatic activity/v olume] in Serum or PlasmaOrdered By: Pravin Granado on 12-17-2022 Lipase [Catalytic activity/Vol] 8.0 U/L 11.0-82.0 [facility] Lymphocytes Auto (Bld) [#/Vo l]Ordered By: Pravin Granado on 12-17-2022 Lymphocytes (Bld) [#/Vol] 1.2 10*3/uL 1.00-4.8 [facility] Lymphocytes/100 WBC Auto (Bl d)Ordered By: Pravin Granado on 12-17-2022 Lymphocytes/100 WBC (Bld) 24.6 % . [facility] MCH Auto (RBC) [Entitic mass ]Ordered By: Pravin Granado on 12-17-2022 MCH (RBC) [Entitic mass] 27.0 pg 24.7-34.3 [facility] MCHC Auto (RBC) [Mass/Vol]Or dered By: Pravin Granado on 12-17-2022 MCHC (RBC) [Mass/Vol] 32.7 g/dL 32.0-35.0 [facility] MCV Auto (RBC) [Entitic vol] Ordered By: Pravin Granado on 12-17-2022 MCV (RBC) [Entitic vol] 82.6 fL 80-100 [facility] Monocyte distribution width [Entitic volume] in Blood by AutomatedOrdered By: Pravin Granado on 12-17-2022 Monocyte distribution width Auto (Bld) [Entitic vol] 19.78 % 0.00-20.00 [facility] Monocytes Auto (Bld) [#/Vol] Ordered By: Pravin Granado on 12-17-2022 Monocytes (Bld) [#/Vol] 0.3 10*3/uL 0.0-0.8 [facility] Monocytes/100 WBC Auto (Bld) Ordered By: Pravin Granado on 12-17-2022 Monocytes/100 WBC (Bld) 6.1 % . [facility] Neutrophils Auto (Bld) [#/Vo l]Ordered By: Pravin Granado on 12-17-2022 Neutrophils (Bld) [#/Vol] 3.1 10*3/uL 1.8-7.7 [facility] Neutrophils/100 WBC Auto (Bl d)Ordered By: Pravin Granado on 12-17-2022 Neutrophils/100 WBC (Bld) 65.5 % . [facility] No Panel InformationOrdered By: Pravin Granado on 12-17-2022 Estimated GFR (CKD-EPI) > 60.0 mL/Min [facility] Creatinine Clearance (Chem N/A [facility] Nucleated erythrocytes [Pres ence] in Blood by Automated countOrdered By: Pravin Granado on 12-17-2022 Nucleated RBC Auto Ql (Bld) 0.3 /100{WBC} 0-0.5 [facility] Platelet mean volume Auto (B ld) [Entitic vol]Ordered By: Pravin Granado on 12-17-2022 Platelet mean volume (Bld) [Entitic vol] 8.1 fL 6.3-10.7 [facility] Platelets Auto (Bld) [#/Vol] Ordered By: Pravin Granado on 12-17-2022 Platelets (Bld) [#/Vol] 236 10*3/uL 150-450 [facility] Potassium [Moles/volume] in Serum or PlasmaOrdered By: Pravin Granado on 12-17-2022 Potassium [Moles/Vol] 3.3 mmol/L 3.5-5.1 [facility] Protein [Mass/volume] in Ser um or PlasmaOrdered By: Pravin Granado on 12-17-2022 Protein [Mass/Vol] 7.5 g/dL 6.4-8.9 [facility] RBC Auto (Bld) [#/Vol]Ordere d By: Pravin Granado on 12-17-2022 RBC (Bld) [#/Vol] 4.05 10*6/uL 3.60-5.00 [facility] Serum or plasma albumin/glob ulin mass ratioOrdered By: Pravin Granado on 12-17-2022 Albumin/Globulin [Mass ratio] 1.4 {ratio} [facility] Serum or plasma anion gap de terminationOrdered By: Pravin Granado on 12-17-2022 Anion gap [Moles/Vol] 9.4 mmol/L 6.0-15.0 [facility] Sodium [Moles/volume] in Ser um or PlasmaOrdered By: Pravin Granado on 12-17-2022 Sodium [Moles/Vol] 137 mmol/L 136-145 [facility] Urea nitrogen [Mass/volume] in Serum or PlasmaOrdered By: Pravin Granado on 12-17-2022 Urea nitrogen [Mass/Vol] 14 mg/dL 7-25 [facility] WBC Auto (Bld) [#/Vol]Ordere d By: Pravin Granado on 12-17-2022 WBC (Bld) [#/Vol] 4.8 10*3/uL 3.8-11.6 [facility] US venous duplex LE LTon US venous duplex LE LT [facility] [place] [address] Ultrasound Report Signed Patient: Gerry Victoria MR#: [id number] 10 : 1955 Acct:[id number] Age/Sex: 67 / F ADM Date: 11/04/22 Loc: UL Room: Type: [facility] Attending Dr: Ward Mtz MD Ordering [...] 7 mm in greatest diameter. Moderately severe training officer incompetence is noted with 3 separate calf perforators that are 3 mm in diameter. The lesser saphenous vein is dilated at almost 6 mm and remains just under 5 mm to the mid calf. US/US venous duplex LE LT IMPRESSION: There is severe deep and superficial venous valvular incompetence in the left leg. The left greater saphenous vein is been ablated. Reflux in the saphenofemoral junction and empties into large varicosities at the first portion of the thigh. The the greater saphenous vein is patent below the knee and is dilated at 7 mm with significant training officer incompetence. Lesser saphenous vein is also incompetent and dilated. Impression dictated by: Ward Mtz M.D.11/07/2022 12:52 PM Dictation Location: [facility] Tech: Ana Shrestha Transcribed By: MANUEL 11/07/22 1252 Dictated By: Ward Mtz MD 11/07/22 1249 Signed By: 11/07/22 [address] [facility] [address] cervical spine wo conon 0 11-04-2022 CT cervical spine wo [facility] [place] [address] CT Scan Report Signed Patient: Gerry Victoria MR#: [id number] 10 : 1955 Acct:[id number] Age/Sex: 67 / F ADM Date: 11/04/22 Loc: ER Room: Type: PRE ER Attending Dr: Copies to: Maico Perla DO Ordering Provider: Maico Perla DO Date of Service: 11/04/22 CT/CT head/brain wo con: fall ([id number]) CT/CT cervical spine wo con: fall CLINICAL [...] MD 11/04/22 1123 Signed By: 11/04/22 1130 [facility] XR knee LT 2Von 11-04-2022 XR knee LT 2V [facility] [place] [address] [place], [place] [address] XRay Report Signed Patient: Gerry Victoria MR#: [id number] 10 : 1955 Acct:[id number] Age/Sex: 67 / F ADM Date: 11/04/22 [...] Mcadams MD 11/04/22 1131 Signed By: 11/04/22 1137 [facility] MRSA Screenon 09-29-2022 MRSA DNA ROXANA+probe Ql (Unsp spec) Microbiology PROCEDURE: MRSA Screen [R1] SOURCE: Nasal BODY SITE: COLLECTED DATE/TIME: 09/27/2022 05:44 EDT RECEIVED DATE/TIME: 09/27/2022 06:10 EDT START DATE/TIME: 09/27/2022 06:10 EDT FREE TEXT SOURCE: Maliha PADILLA DO, DO, Ronobir R FINAL REPORTS Final Report [] Verified Date/Time: 09/29/2022 09:04 EDT MRSA Negative. Performing Locations R1: This test was performed at: [facility], [address] [place] [address], [address] , [place], Normal [facility] Comment on above: Performed By: #### 1 [id number] #### [facility] [address] [place] [address] Auto Diffon 09-27-2022 Basophils/100 WBC (Bld) 1.0 % Normal 0.0-2.0 [facility] Comment on above: Order Comment: Order Added by Discern Expert. Performed By: #### 2 800282, 36936228, 8865152, 6395041, 2123201, 39996350, 1565843, 5990371 #### [facility] [address] [place] [address] Basophils/Leukocytes Auto (Bld) [Pure # fraction] 0.1 E9/L Normal 0.0-0.2 [facility] Comment on above: Order Comment: Order Added by Discern Expert. Performed By: #### 2 723144, 61789037, 7165587, 1775752, 4021526, 25530443, 7371111, 7861549 #### [facility] [address] [place] [address] Eosinophils/100 WBC (Bld) 8.4 % High 0.0-8.0 [facility] Comment on above: Order Comment: Order Added by Discern Expert. Performed By: #### 2 207839, 55319454, 4764383, 0082912, 8839084, 88788293, 1042053, 9674027 #### [facility] [address] [place] [address] Eosinophils/Leukocytes Auto (Bld) [Pure # fraction] 0.5 E9/L Normal 0.0-0.5 [facility] Comment on above: Order Comment: Order Added by Discern Expert. Performed By: #### 2 174511, 64567417, 7967339, 5761857, 2944773, 23361957, 5914208, 9791201 #### [facility] [address] [place] [address] Lymphocytes/100 WBC (Bld) 18.0 % Normal 14.0-50.0 [facility] Comment on above: Order Comment: Order Added by Discern Expert. Performed By: #### 2 409915, 04171859, 3911772, 9069521, 0313880, 98896824, 5168142, 1991834 #### [facility] [address] [place] [address] Lymphocytes/Leukocytes Auto (Bld) [Pure # fraction] 1.1 E9/L Normal 1.0-4.0 [facility] Comment on above: Order Comment: Order Added by Debra Expert. Performed By: #### 2 615649, 22111763, 2269777, 7842557, 7318885, 74044222, 6374524, 4459401 #### [facility] [address] [place] [address] Monocytes/100 WBC (Bld) 11.2 % Normal 4.0-14.0 [facility] Comment on above: Order Comment: Order Added by Debra Expert. Performed By: #### 2 490379, 30979235, 6308475, 3206085, 5725086, 91438899, 0041400, 0595536 #### [facility] [address] [place] [address] Monocytes/Leukocytes Auto (Bld) [Pure # fraction] 0.7 E9/L Normal 0.2-1.0 [facility] Comment on above: Order Comment: Order Added by Debra Expert. Performed By: #### 2 811640, 64008096, 0724578, 1339528, 7790295, 87744105, 6416369, 6614242 #### [facility] [address] [place] [address] Neutrophils/100 WBC (Bld) 61.4 % Normal 36.0-75.0 [facility] Comment on above: Order Comment: Order Added by Discern Expert. Performed By: #### 2 351916, 08987831, 0000648, 7165932, 3170104, 91305584, 9053977, 9987799 #### [facility] [address] [place] [address] Neutrophils/Leukocytes Auto (Bld) [Pure # fraction] 3.6 E9/L Normal 2.0-7.5 [facility] Comment on above: Order Comment: Order Added by Discern Expert. Performed By: #### 2 845829, 34856676, 2178815, 7695910, 1100223, 82137297, 2597170, 1821952 #### [facility] [address] [place] [address] BMPon 09-27-2022 Creatinine [Mass/Vol] 1.2 mg/dL Normal 0.5-1.3 [facility] Comment on above: Performed By: #### 2 565710, 93133817, 4406632, 3613792, 3391287, 79633940, 6863634, 8929704 #### [facility] [address] [place] [address] Urea nitrogen [Mass/Vol] 17 mg/dL Normal 5-21 [facility] Comment on above: Performed By: #### 2 369861, 86330856, 4622188, 6101447, 8738776, 64570937, 3864660, 4874578 #### [facility] [address] [place] [address] Urea nitrogen/Creatinine [Mass ratio] 14 No Units Normal 10-20 [facility] Comment on above: Performed By: #### 2 909731, 91041651, 1507772, 1089739, 0893483, 13719901, 6313379, 7878735 #### [facility] [address] [place] [address] Anion gap [Moles/Vol] 12 mmol/L Normal 6-16 [facility] Comment on above: Performed By: #### 2 995755, 27614929, 8849950, 6076701, 3689866, 56757042, 2711375, 9210811 #### [facility] [address] [place] [address] Calcium [Mass/Vol] 8.9 mg/dL Normal 8.9-11.1 [facility] Comment on above: Performed By: #### 2 260427, 42564494, 8713028, 3614768, 3869149, 88265103, 5066715, 7562984 #### [facility] [address] [place] [address] Chloride [Moles/Vol] 101 mmol/L Normal 101-111 [facility] Comment on above: Performed By: #### 2 818246, 95682064, 1008697, 5006212, 1192591, 77536617, 8095413, 8545764 #### [facility] [address] [place] [address] CO2 [Moles/Vol] 29 mmol/L Normal 21-31 [facility] Comment on above: Performed By: #### 2 828037, 70657447, 5243635, 9207643, 9301870, 78210924, 0960525, 8147382 #### [facility] [address] [place] [address] Glucose [Mass/Vol] 84 mg/dL Normal 55-199 [facility] Comment on above: Result Comment: If t his glucose result represents a fasting glucose, interpretation should refer to the following reference range: 55-99 mg/dL Performed By: #### 2 702879, 25478057, 1590373, 2518129, 2700697, 71771758, 6626096, 2959551 #### [facility] [address] [place] [address] Potassium [Moles/Vol] 3.6 mmol/L Normal 3.5-5.3 [facility] Comment on above: Performed By: #### 2 079057, 87104242, 3349167, 0635411, 3723615, 48836671, 7642612, 7006872 #### [facility] [address] [place] [address] Sodium [Moles/Vol] 138 mmol/L Normal 135-145 [facility] Comment on above: Performed By: #### 2 325429, 69857257, 3588977, 5857694, 4259379, 34518802, 8022986, 6619306 #### [facility] [address] [place] [address] CBC w/ Auto Diffon 3 Erythrocyte distribution width (RBC) [Ratio] 15.9 % High 10.9-14.2 [facility] Comment on above: Performed By: #### 2 111014, 98460654, 5236193, 6409164, 1383894, 69528750, 0089761, 7021086 #### [facility] [address] [place], [place] [address] Hematocrit (Bld) [Volume fraction] 29.2 % Low 34.0-46.0 [facility] Comment on above: Performed By: #### 2 917487, 37909361, 7985981, 1119427, 8207023, 98866327, 2331441, 8793630 #### [facility] [address] [place] [address] Hemoglobin (Bld) [Mass/Vol] 9.6 g/dL Low 12.0-16.0 [facility] Comment on above: Performed By: #### 2 178457, 09144694, 8729170, 2304850, 0936013, 08502428, 9606075, 6541438 #### [facility] [address] [place] [address] MCH (RBC) [Entitic mass] 26.4 pg Low 27.0-34.0 [facility] Comment on above: Performed By: #### 2 026929, 25901737, 2154200, 2651138, 9574671, 88994273, 1580035, 2715421 #### [facility] [address] [place] [address] MCHC (RBC) [Mass/Vol] 33.0 g/dL Normal 31.4-36.0 [facility] Comment on above: Performed By: #### 2 044167, 89552060, 3168503, 6759114, 7740464, 03235745, 1078612, 4831160 #### [facility] [address] [place] [address] MCV (RBC) [Entitic vol] 79.9 fL Low 80.0-100.0 [facility] Comment on above: Performed By: #### 2 006652, 14359800, 7584464, 8587895, 9919819, 97714993, 0985752, 3781466 #### [facility] [address] [place] [address] Platelet mean volume (Bld) [Entitic vol] 7.9 fL Normal 6.4-10.8 [facility] Comment on above: Performed By: #### 2 673871, 37025586, 9064966, 2100104, 6630168, 90504405, 1057964, 5628785 #### [facility] [address] [place] [address] Platelets (Bld) [#/Vol] 249.0 E9/L Normal 150.0-500. 0 [facility] Comment on above: Performed By: #### 2 010289, 45642525, 5610863, 7124091, 1916577, 24701888, 2714765, 3174154 #### [facility] [address] [place] [address] RBC (Bld) [#/Vol] 3.7 E12/L Low 4.3-5.9 [facility] Comment on above: Performed By: #### 2 588430, 34708234, 6208966, 8308383, 5577443, 02939312, 6833325, 2937811 #### [facility] [address] [place] [address] WBC corrected for nucl RBC Auto (Bld) [#/Vol] 5.9 E9/L Normal 4.0-11.0 [facility] Comment on above: Performed By: #### 2 582660, 08655424, 9260727, 0477760, 5205036, 12427585, 7009457, 9248940 #### [facility] [address] [place] [address] CHEMISTRYOrdered By: SYSTEM SYSTEM on 09-27-2022 Albumin [Mass/Vol] 3.8 g/dL Normal 3.3 - 5.0 gm/dL [facility] Albumin/Globulin [Mass ratio] 1.2 {ratio} Normal 1.1 - 2.2 [facility] ALP [Catalytic activity/Vol] 79 [iU]/d Normal 21 - 98 Int._Unit/ L [facility] ALT No additional P-5'-P [Catalytic activity/Vol] 11 [iU]/d Normal 6 - 46 Int._Unit/ L [facility] Anion gap [Moles/Vol] 12 mmol/L Normal 6 - 16 mEq/L [facility] AST [Catalytic activity/Vol] 19 [iU]/d Normal 5 - 43 Int._Unit/ L [facility] Bilirubin [Mass/Vol] 0.6 mg/dL Normal 0.0 - 1 .1 mg/dL [facility] Bilirubin.direct [Mass/Vol] 0.1 mg/dL Normal 0.1 - 0.4 mg/dL [facility] Bilirubin.indirect [Mass or moles/Vol] 0.5 mg/dL Normal 0.1 - 0.9 mg/dL [facility] Calcium [Mass/Vol] 8.9 mg/dL Normal 8.9 - 11. 1 mg/dL [facility] Chloride [Moles/Vol] 101 mmol/L Normal 101 - 1 11 mmol/L [facility] CO2 [Moles/Vol] 29 mmol/L Normal 21 - 31 mmol/L [facility] Creatinine [Mass/Vol] 1.2 mg/dL Normal 0.5 - 1.3 mg/dL [facility] CRP [Mass/Vol] 7.5 mg/dL High <=1.9mg/dL [facility] Remis ol GFR/1.73 sq M.predicted among non-blacks MDRD (S/P/Bld) [Vol rate/Area] 49 mL/min/1.73 m2 Low >=59mL/min /1.[address] [facility] Chem S Globulin (S) [Mass/Vol] 3.2 g/dL Normal 1.4 - 4.0 gm/dL [facility] Glucose [Mass/Vol] 84 mg/dL Normal 55 - 199 mg/dL [facility] Lactate [Mass/Vol] 0.5 mmol/L Normal 0.5 - 2.2 mmol/L [facility] Potassium [Moles/Vol] 3.6 mmol/L Normal 3.5 - 5.3 mmol/L [facility] Protein [Mass/Vol] 7.0 g/dL Normal 6.0 - 7.8 gm/dL [facility] Sodium [Moles/Vol] 138 mmol/L Normal 135 - 145 mmol/L [facility] Urea nitrogen [Mass/Vol] 17 mg/dL Normal 5 - 21 mg/dL [facility] Urea nitrogen/Creatinine [Mass ratio] 14 mg/mg Normal 10 - 20 [facility] CRPon 09-27-2022 CRP [Mass/Vol] 7.5 mg/dL High <=1.9 [facility] Comment on above: Performed By: #### 2 250888, 17515363, 7764587, 1926887, 1263710, 97284847, 2039115, 1298944 #### [facility] [address] [place] [address] Consent To Leave AMAon 09-27 Consent To Leave AMA [id number]#[id number]:127 Normal [facility] Consent for Treatmenton Consent for Treatment [id number]:127 Normal [facility] Discharge Instructionson Discharge Instructions [id number]:127 Normal [facility] ED Clinical Summaryon 2022 ED Clinical Summary (Inserted Image. Zora ble to display) [address] [address] ED Clinical Summary Person Information Name: GERRY VICTORIA [place] Age: 67 Years : 1955 Sex: Female Language: Bolivian PCP: WARD ZUNIGA DO Marital Status: Visit [...] 09/27/2022 11:03:38 09/27/2022 11:03:38 09/27/2022 11:03:38 ADDRESS: [facility] [address] [place] [phone] PHYS DOC NOTES: MEDICAL INFORMATION: Prescriptions Given: New Medications [facility] [id number], [address] [place] [id number], [phone] cephalexin (Keflex 500 mg Cap) 1 Capsules [...] (Celebrate Multivi (more content not included)... Normal [facility] ED Note-Physicianon 09-28-19 ED Note-Physician Basic Information [...] She states she then went to the [facility] Urgent care clinic and she was prescribed [...] entirety with (more content not included)... Normal [facility] Comment on above: Result Comment: Elec tronically Signed By: Bala SNOWDEN, Michelle Flores\.br\Date and Time Signed: 09/27/22 03:31 EDT\.br\Electronically Co-Signed [...] these instructions at home: Medicines ? Take jeoz-pmk-kyyscus and prescription medicines only as told by [...] provider. Document Revised: 12/23/2021 Document Reviewed: 12/23/2021 [employer] Patient Education ? 2022 [employer] Normal [facility] ED Patient Summaryon 023 ED Patient Summary (Inserted Image. Zora ble to display) [place] [id number] Patient Discharge Instructions Person Information Name: GERRY VICTORIA Age: 67 Years Arrival Date: 09/26/2022 22:52:57 Discharge Diagnosis: 1:Cellulitis of leg; 2:CAD (coronary atherosclerotic disease); 3:RLS (restless legs syndrome); 4:Hypothyroid; 5:HLD (hyperlipidemia); 6:Depression; 7:On deep vein thrombosis (DVT) prophylaxis; Left against medical advice Primary Care Physician: WARD ZUNIGA DO Provider Information Primary Provider: Chintan Heller DO Advanced Employee Communications Coordinator:None The exam and treatment you received in the Emergency Department were for an urgent problem and are not intended as complete care. It is important that you follow up with a doctor, nurse practitioner, or physician?s assistant guest services manager for ongoing care. If your symptoms become [...] With: Address: When: WARD ZUNIGA [address] [id number] In 3 days 09/30/2022 In the event that this physician does not participate in your insurance network, please consult with your insurance company to find a nearby participating provider. Patient Education Materials: Cellulitis, Adult, Sbvk-wv-Hatb A MESSAGE TO ALL PATIENTS REGARDING OPIOIDS PRESCRIPTION OPIOIDS: WHAT YOU NEED TO KNOW Prescription opioids can be used to help relieve dokrqsyy-sx-zqktcs pain and are often prescribed following a [...] guidance from the Food and Drug Administration (www.fda.gov/Drugs/Resourc esForYou). ? Visit www.cdc.gov/drugoverdose to learn about the risks of opioids abuse and overdose. ? If you belie (more content not included)... Normal [facility] HEMATOLOGYOrdered By: SYSTEM SYSTEM on 09-27-2022 Basophils/100 WBC (Bld) 1.0 % Normal 0.0 - 2.0 % [facility] Basophils/Leukocytes Auto (Bld) [Pure # fraction] 0.1 E9/L Normal 0.0 - 0.2 E9/L [facility] Eosinophils/100 WBC (Bld) 8.4 % High 0.0 - 8.0 % [facility] Eosinophils/Leukocytes Auto (Bld) [Pure # fraction] 0.5 E9/L Normal 0.0 - 0.5 E9/L [facility] Lymphocytes/100 WBC (Bld) 18.0 % Normal 14.0 - 50.0 % [facility] Lymphocytes/Leukocytes Auto (Bld) [Pure # fraction] 1.1 E9/L Normal 1.0 - 4.0 E9/L [facility] Monocytes/100 WBC (Bld) 11.2 % Normal 4.0 - 14.0 % [facility] Monocytes/Leukocytes Auto (Bld) [Pure # fraction] 0.7 E9/L Normal 0.2 - 1.0 E9/L [facility] Neutrophils/100 WBC (Bld) 61.4 % Normal 36.0 - 75.0 % [facility] Neutrophils/Leukocytes Auto (Bld) [Pure # fraction] 3.6 E9/L Normal 2.0 - 7.5 E9/L [facility] HEMATOLOGYOrdered By: Liz Bueno on 09-27-2022 Erythrocyte distribution width (RBC) [Ratio] 15.9 % High 10.9 - 14.2 % [facility] Hematocrit (Bld) [Volume fraction] 29.2 % Low 34.0 - 46.0 % [facility] Hemoglobin (Bld) [Mass/Vol] 9.6 g/dL Low 12.0 - 16.0 gm/dL [facility] MCH (RBC) [Entitic mass] 26.4 pg Low 27.0 - 34.0 pg [facility] MCHC (RBC) [Mass/Vol] 33.0 g/dL Normal 31.4 - 36.0 gm/dL [facility] MCV (RBC) [Entitic vol] 79.9 fL Low 80.0 - 100.0 fL [facility] Platelet mean volume (Bld) [Entitic vol] 7.9 fL Normal 6.4 - 10.8 fL [facility] Platelets (Bld) [#/Vol] 249.0 E9/L Normal 150.0 - 500.0 E9/L [facility] RBC (Bld) [#/Vol] 3.7 E12/L Low 4.3 - 5.9 E12/L [facility] Sed Rate Automated 25 mm/h Normal 0 - 34 mm/hr [facility] WBC corrected for nucl RBC Auto (Bld) [#/Vol] 5.9 E9/L Normal 4.0 - 11.0 E9/L [facility] Hep Func Panelon 09-27-2022 Albumin [Mass/Vol] 3.8 g/dL Normal 3.3-5.0 [facility] Comment on above: Performed By: #### 2 990429, 82361650, 5820094, 1078624, 0344682, 96559311, 8139918, 3491615 ####[facility] [address] [place] [address] Albumin/Globulin (S) [Mass conc ratio] 1.2 Normal 1.1-2.2 [facility] Comment on above: Performed By: #### 2 651254, 39545649, 5150426, 7946502, 2217666, 76875670, 7341140, 4738983 ####[facility] [address] [place] [address] ALP [Catalytic activity/Vol] 79 Int._Unit/L Normal 21-98 [facility] Comment on above: Performed By: #### 2 369229, 95400967, 8622900, 4633945, 7768935, 85932769, 2691259, 7800357 ####[facility] [address] [place] [address] ALT No additional P-5'-P [Catalytic activity/Vol] 11 Int._Unit/L Normal 6-46 [facility] Comment on above: Performed By: #### 2 421080, 83036412, 5102848, 5579218, 8012692, 29651824, 0977747, 7246724 ####[facility] [address] [place] [address] AST [Catalytic activity/Vol] 19 Int._Unit/L Normal 5-43 [facility] Comment on above: Performed By: #### 2 155718, 40181737, 5223733, 0410613, 7381596, 23567859, 1298674, 1678490 ####[facility] [address] [place] [address] Bilirubin [Mass/Vol] 0.6 mg/dL Normal 0.0-1.1 [facility] Comment on above: Performed By: #### 2 618403, 77164608, 6149920, 6513062, 1026305, 84856388, 0197503, 2382813 ####[place] [id number] Bilirubin.direct [Mass/Vol] 0.1 mg/dL Normal 0.1-0.4 [facility] Comment on above: Performed By: #### 2 711386, 06041452, 3543112, 7408844, 4245450, 63314405, 2836157, 1418178 ####[place] [address] [place] [address] Bilirubin.indirect [Mass or moles/Vol] 0.5 mg/dL Normal 0.1-0.9 [facility] Comment on above: Performed By: #### 2 618248, 48002049, 3131708, 3699357, 0873609, 82690854, 7322361, 4745268 ####[place] [address] [place] [address] Globulin (S) [Mass/Vol] 3.2 g/dL Normal 1.4-4.0 [facility] Comment on above: Performed By: #### 2 891059, 39528106, 3442866, 9444956, 0631939, 74444236, 8924580, 6436419 ####[place] [address] [place] [address] Protein [Mass/Vol] 7.0 g/dL Normal 6.0-7.8 [facility] Comment on above: Performed By: #### 2 [id number], [id number], 9850506, 6115324, 9357253, 18678725, 9175713, [id number] ####[facility] [address] [place] [address] Lactic Acidon 09-27-2022 Lactate [Mass/Vol] 0.5 mmol/L Normal 0.5-2.2 [facility] Comment on above: Performed By: #### 2 [id number], [id number], 0421706, 2985390, 9876188, 17730457, 7947131, 0131852 #### [facility] [address] [place] [address] Sed Rate Automatedon 023 Sed Rate Automated 25 mm/hr Normal 0-34 [facility] Comment on above: Performed By: #### 2 639710, [id number], 2089238, 4990046, 2460089, 79147691, 8668566, 6993599 #### [facility] [address] [place] [address] UA With Cult Reflexon 2022 Bilirubin Ql (U) Negative Normal Negative [facility] Comment on above: Performed By: #### 1 [id number] ####[facility] [address] [place] [address] Clarity (U) SL CLOUDY Invalid Interpretation Code [facility] Comment on above: Performed By: #### 1 [id number] ####[facility] [address] [place] [address] Color (U) YELLOW Normal Yellow [facility] Comment on above: Performed By: #### 1 [id number] ####[facility] [address] [place] [address] Epithelial cells.squamous LM.HPF (Urine sed) [#/Area] /[HPF] Normal 0-2 [facility] Comment on above: Performed By: #### 1 [id number] ####[facility] [address] [place] [address] Glucose Test strip (U) [Mass/Vol] Negative Normal Negative [facility] Comment on above: Performed By: #### 1 [id number] ####[facility] [address] [place] [address] Hemoglobin Ql (U) Negative Normal Negative [facility] Comment on above: Performed By: #### 1 6057949 ####[facility] [address] [place] [address] Ketones (U) [Mass/Vol] Negative Normal Negative [facility] Comment on above: Performed By: #### 1 [id number] ####[address] [place] [address] [place].plasma/[place] .RBC (Bld) [Mass ratio] 0-3 Normal 0-3 [facility] Comment on above: Performed By: #### 1 [id number] ####[facility] [address] [place] [address] Mucus Ql (Urine sed) TRACE Normal [facility] Comment on above: Performed By: #### 1 [id number] ####[address] [place] [address] Nitrite Ql (U) Negative Normal Negative [facility] Comment on above: Performed By: #### 1 4194325 ####[facility] [address] [place] [address] pH (U) 6.0 [pH] Invalid Interpretation Code 5.0-9.0 [facility] Comment on above: Performed By: #### 1 [id number] ####[address] [place] [address] Protein (U) [Mass/Vol] Negative Normal Negative [facility] Comment on above: Performed By: #### 1 [id number] ####[address] [address] Specific gravity (U) [Rel density] 1.010 Invalid Interpretation Code 1.005-1.03 0 [facility] Comment on above: Performed By: #### 1 [id number] ####[facility] [address] [place] [address] Type of Urine collection method Clean Catch Normal [facility] Comment on above: Performed By: #### 1 [id number] ####[facility] [address] [place] [address] Urobilinogen Qn (U) 0.2 {Olivia'U}/dL Normal 0.0-1.0 [facility] Comment on above: Performed By: #### 1 7623104 ####[place] [address] WBC Auto Ql (U) TRACE Abnormal Negative [facility] Comment on above: Performed By: #### 1 [id number] ####[place] [address] WBC LM.HPF (Urine sed) [#/Area] 0-5 Normal 0-5 [facility] Comment on above: Performed By: #### 1 [id number] ####[place] [address] URINALYSISOrdered By: Liz Bueno on 09-27-2022 Bilirubin Ql (U) Negative (09/27/22 4:48 AM) Normal Negative [facility] UA Auto SS Clarity (U) SL CLOUDY Invalid Interpretation Code [facility] UA Auto SS Color (U) Yellow (09/27/22 4:48 AM) Normal Yellow [facility] UA Auto SS Epithelial cells.squamous LM.HPF (Urine sed) [#/Area] /[HPF] Normal 0-2/HPF [facility] UA Aut o SS Glucose Test strip (U) [Mass/Vol] Negative (09/27/22 4:48 AM) Normal Negative [facility] UA Auto SS Hemoglobin Ql (U) Negative (09/27/22 4:48 AM) Normal Negative [facility] UA Auto SS Ketones (U) [Mass/Vol] Negative (09/27/22 4:48 AM) Normal Negative [facility] UA Auto SS [place].plasma/[place] .RBC (Bld) [Mass ratio] 0-3 /HPF Normal 0-3/HPF [facility] UA Auto SS Mucus Ql (Urine sed) Trace (09/27/22 4:48 AM) Normal [facility] UA Auto SS Nitrite Ql (U) Negative (09/27/22 4:48 AM) Normal Negative [facility] UA Auto SS pH (U) 6.0 *NA* (09/27/22 4:48 AM) Invalid Interpretation Code 5.0 - 9.0 [facility] UA Auto SS Protein (U) [Mass/Vol] Negative (09/27/22 4:48 AM) Normal Negative [facility] UA Auto SS Specific gravity (U) [Rel density] 1.010 *NA* (09/27/22 4:48 AM) Invalid Interpretation Code 1.005 - 1.030 [facility] UA Auto SS UA Spec Desc Clean Catch (09/27/22 4:48 AM) Normal [facility] UA Auto SS Urobilinogen Qn (U) 0.5404952 {Olivia'U}/dL Normal 0.0 - 1.0 EU/dL [facility] UA Auto SS WBC Auto Ql (U) Trace *ABN* (09/27/22 4:48 AM) Invalid Interpretation Code Negative [facility] UA Auto SS WBC LM.HPF (Urine sed) [...] a small plantar calcaneal spur. Ordering Provider: Michelle Mckenna FINAL REPORT Dictated: 09/27/2022 8:51 am Kelvin Burris MD, V. Signed (Electronic Signature): 09/27/2022 8:51 am Signed by: Kelvin Burris MD, V. Transcribed by: JANNETH Technologist: BRANDIN Technical Comments Radiation Dose: Ka,r in mGy = na DAP = na Normal [facility] eGFRon 09-27-2022 GFR/1.73 sq M.predicted among non-blacks MDRD (S/P/Bld) [Vol rate/Area] 49 mL/min/1.73 m2 Low >=59 [facility] Comment on above: Order Comment: Order added by Discern Expert. Result Comment: Inspector Fabric heidi kidney disease could be indicated at eGFR's of less than 60 mL/min/1.73m2. Kidney failure is indicated at less than 15 mL/min/1.73m2. 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 Performed By: #### B MP, CBC, LIPASE, HEPATIC #### [facility] [address] [place] [address] Thyrotropin [Units/volume] i n Serum or PlasmaOrdered By: Ward Zuniga on 09-06-2022 TSH Qn 14.86 m[IU]/L 0.45-5.33 [facility] Thyroxine (T4) free [Mass/vo lume] in Serum or PlasmaOrdered By: Ward Zuniga on 09-06-2022 Free T4 [Mass/Vol] 0.30 ng/dL 0.61-1.12 [facility] Triiodothyronine (T3) Freeon 09-06-2022 Triiodothyronine (T3) Free 2.19 pg/mL Low 2.50-3.90 [facility] Comment on above: Result Comment: PERF ORMED BY: [facility] [address] [place] [address] PATHOLOGIST BLOCKER AND CUTTER CONTACT LENS WILDER BOTELLO M.D. Performed By: #### B MP, CBC, LIPASE, HEPATIC #### [address] Triiodothyronine (T3) Free [ Mass/volume] in Serum or PlasmaOrdered By: Ward Zuniga on 09-06-2022 Free T3 [Mass/Vol] 2.19 pg/mL 2.50-3.90 [facility] Coding Summary.on 08-02-2022 Coding Summary. CD:[id number] Ww+PGh lYWQ+HC0PUTJwH94xlJPplI7eE 0NMTElOSywgQVBQTElOSyIgbmF iYB7veERnDZQu IC8+OC9wIJCbMacnhELzr5F0mE D6Z69lzr0kNArelAB2EWFnJnDh lhtgz4kffPh4ACesOlusRbXe QRYfoY78FMR4lY91Vf29jPAjyD Nta0zsdEv2QeGpZLYbJSP8lDaj THhzq3CrQTWgX73avVOpx6Z8 WJHtqNcooVIwEzCogNK0eM0tCM yfgnlle2axbjpwJsm3pv10xBDi d0N5pNJ5N7KtdhG7EMIufZCe JjbxiYAYwN5tceque9aopalpVc YcJAErJJo5SKj8NDPaqEixIaSw SA88BZH8NMFvnxIaE9IcNAWd zZcpFjX2p8R2Ff6LX3SIGuxtD2 VNTUFSWTwvdGQ+CL64yd85M1Gr ApoqWhg0RVYlSEX1wHU5tV1a NDSlLLofr7F0oWJ2T3CznvLtjm 4is6fuHGVhLKgzL15blFRro8H1 BAYonMI2EVBwfRmjZbLyaJ90 Oyc+NSOlyBdfn9WlPizxc9rez1 wkzBr4LsufPJVqnuGqvSniNXP1 o2NoEd8rJTKavCL6yMA9qM1r PqKzSdF0LUifX438TaLkzAWsMs fuL64jX5PxvQM+LCQfTso5ECSk sVxnQL9aH7QzZCHywybpbPSc jFvcFN0vPPTvddeiGXLzfN8mIY RaA3j9AkOuHkZ2YOhnC2BeQJNt iawoHk42yS1iDmCbJbK7CQzn J4LqcbY7IDYagWMhPUpkCKT2L9 6ja3U0ILNtGVSpFFZ8kYB6sE1y bGlnbjogbGVmdDsgdmVydGlj MBzvQAmoL124QEHbaNusHaXhZR luZyBEYXRlOiAgMDUvMDkvMjAy MzwvdGQ+TKIrIFU7iChgQOBd jNSoWZmoZh6szZmpdUcvHW2gHP SmnkmmBDPdcE3yLOVflFOoaHos GH0uUTCcwyjdy433YdTcDYL7 BUXdaSFkH9YwtD2wXjVeDHKbLA JfA4BjgRXuTUfbE577JFnxXhI5 INPwasOsY6WsJNJnvIgzXuL0 r6E6Ni3Ql1AfjpncV1KreYZzGy KxSibuFQa6F4KhYukfqMV+PC90 UKUtNR75IXv0WVO9wAhbQBss QILxA6OwcA7yRkGwMGBkLNTnSp c+PHRhYmxlIHdpZHRoPScxMDAl DyZmiLhrUO1zAn3kKVUpTXBd xBnpgCWjBuEtz4ggBXBcKQdsZU 2wrUnlT4AlmQP8ASRrm9y3Hw88 O64iC0FhkHW+DINlvHB2tNJ4 rS9kOeRzFyX1UYzvX588CzZirL OtKyixc9age0kdrRq5WqK6VNXh sjOwyHdtNVW5t2QmBr92F13j IHdpZHRoPSIxNSUiIHZhbGlnbj 9okG1gYy9+UIPmdCU3gVJ7oB9u SuPtLfM3JSbvL376MwXvxOYp Rwvyv1ebz5bvqSh4MlQfSETaew KcuHxwLRO5j1MaLi07O3MhuKef v0YcIcc3ec02bFZtc3Q8qIS5 T0LtLMKimybczBCitYweJF0nPN QspatzNCPikZ5nHFHdD6u5YnKz RmU4KFvfU3SozfN4CGMtzTSj TFQwiHAFgT6fnruha9ounwnkXq RuURYrUBr3DOu1VDXewLroRuRt BDY1KwA4MOD6hTNagC4qjXbg jrkpnI7zZlj+GDB4tUFcxMZULX 1lOjwvdGQ+OBFuLJR9mYncRVae UBDmqE0sHMDtC4g1XoRsUfH0 YNukJ8RqpmN3FJInaBWmOJFxaG GSxA5qhdajf0fytlgvHrSeDGUa BGs6CBn0PDJsrLqkVzKeOXU4 ZqX5KZQ9bBDioG3crQqatmfavH 9wOyc+SrchrVisNNC2RNj3C7Ox Dfd1HNYerUjyFD7zvKMcRTug Jm6exRzjhIzjDV3tTZIlcwwlj4 48ZbFjf0tfCRRncSPnTCboLWA6 Q87br7K2TIDaBNCkQGY3zFY4 bZ4fsLgcexfzjPHzbPmmbtZzkG vpOKmrCCzvO178CFPecTxlQpJr NJh5V1NhNbx2WKVrcJnkWX4g yWHeXXmmQx9xsDyklCrsLU2hUW Djxmqft732ZjTqi2qcIFUaiVUk WPxkODU7X84jb1D5OLHiIHYp OUY2bEX8tZ6eaMaggikfvLLiiY gvohXcdCgjEJwxKRntD867PUQr hGykQcXnyQi3S1ZhGgx8VRVt qWsnIY3jiARiTCogNi9vaSymrI zyIB7jVRJgfpfyz545CpEwz6wk EYNbkIIvGBmpDEH2W81mp2K1 YLMwRMXsIAC6oTX1rH2omYewbd ogbGVmdDsgdmVydGljYWwtYWxp L282DJEnzYnpFyBjfLpmorIx QCnrWUt8Z1FgLepigZW+PC90YW JpAT91nIDpaQMoy8btcYu3VkMo NPEyCRM5xDfsJPynu3DrEVQe H65dkTUqs2W0CMOwiHhcvMZvZn MyrWH7jF1tKYdgaabef6bilzws Zoyfq1gdur99xR39E11eFLom FEOtETQfTLLwESRnzJbgqr2cwY 9wIi8+PFPzyEJ4nLU7wR3jKHPc DiU9LUdwG197RyOqmNTmXyqq a7ups5zibTw8XpF6BXNclxXtfU eoJQI2k9EhAy51M45iJTukRWUy NOHpAOKtQJFoePdkgg7tnD9j Ii8+PSJooYP9eOM1oN4qJuBeGn A7QEhrM124RzNbaCOeIzqdD35b W7BnsIU+CLSyVxv8VIWgpMvr QR5mxNEpAMmcFq5dWEV6IgMfWd MwKPvsM2CvYYDkgsbfgpbfqDG4 LBGbCTPouW52Ue8tgLzmSDUj cGTOuP4utktsq9eertppIqXyUV LkMJr2LPz7NKWxvMqeFtLfSCB9 HjG8VRT4kZSrgT5wjJruxogj gQ9cP9QfKORlxwnkLc60sJ9aUs FhPaN6VTfcHqv+EGiPBY0AKJYH XIRSAgRHXA49QY86qDSyz9U3 xVZ5H8LzDNNkoeesujiqrBE9AF GsMNPnuH70dLAeOQmjIe0dr1N8 n646RXAcWKAahZ42Ma3sdNwq JKMcuEYLbF8fyqsnd1zfngqxNm HpQFGiFVc7JUp4ZCGwnTzcEtXb TMV5LhA1AYA0qPZbsY1slRft kzksqC8xNyf+UBKqJrDlBOp2XA wvdGQ+FCSiENZ1gJgyMAhsBMIz dB7bVVKwK0c7XsNmKnM2LXdv R2BeXQEryiqxNp20wM1bEdChKc S6JYbpV2GarqQ9ODYcvCFrRKcx CTJ5R22df4B4DCVjASRrTEQ8 wJM1qC9otLmsmjqzuDAzoCvqbr JsqQtmXPbxHUxpY871TVZkuMrd YqQ6ZXzyIDIhTQ13HS18hSBf r4M4kZI9A2PwAOAvfnsregnolH R0TBBnUUPnbI10xRTqBQaoNa9c t0Q0w360NQAoHRTxxK09Vw4u vVnmJCZlkYDYgV8lwfzfc4vxrd bnEiOgYZKkFXv7QBc2GYWpuOmp VpHxAXS7ArF1UGO7yQTzeT2w aNkjyqstpY3tGob+RmVtYWxlPC 02LM51xEOic0K6cVP3U9LrHHDg ssfyfdhgtXL1KQVyJWJboF27 rSJeEYyqTj0oi8X5d344PLIsUX CxkE25Cx5niThvZXWqbHAUgH7g zrtjt9lkeftmSaJgFUSxXFb5 RNt0WRXblPlsKvQnGHN7XnN6AX K9lTYjtM9eiOvqesxucZ7wQfd+ KC1ulStasU8iuQ7PPR5lMMTv mGWIbYBuETZ9PB73JZ40Y1FiGs wvdGFibGU+PHRhYmxlIHdpZHRo EZkmMUJiHgQlzXowZV7jGc1c DYXvMFOknXbkzTOxTjNps6ljYH ZoTQrcAS1qqOiiH5YiwYV1TSFb o2r4Qs80K84uN7FacVK+PGNv nIZ3aBM0xC6lBlKvPuA9LHjqY2 14DnPgvUAaHdhip3yfx4iqoHt2 FbMbEBRxnkTszZzkENM8s1Tg Tn20S23fZUrxTWRlJSNnLOFcPE VchKaiys3bmN8xGu2+PGNvbCB3 bEN4gD0iDwAjEjI7NZexH327 MeIlwIZfYpqdC84nK5JetDI+PH SePqs1OAGqyEfgQF2jzYOuTVnk Me4gBSX1LmCqXsEeFGzwA1Yi DLBhhvhqcmizsOT7JUGwBVOwjA 27Zy3ayVpsPw9jDPVrYMF1LOQj cJEhV2NmeM0jQoEzCSCkIIAk B9McpWOpIDneN829NUspDhR0TN BvsuSjM2OmGJZyaWqtTxJ9o4G1 Bw5ObIiipSMdRI7aDyUhDZn1 G0PbMmb1SAGnoHvwJV6imPSbCA oiPg8dwUtmiNljXH6nPEFocskc d248WjGrj5pyEJTwqELiLPbv TSK6V77el9Y4FQQmHFGjJTK7kQ W0tX4guYuclyfhnSVgeApelcQh pTyuVRmsMHowR697ISWxwXpp QoSRVkn4E6KxYkf0INOiuZvjYF 6ngMWjBVzcOm5bhAvtaQkyZQ5t ELUapeavu517IjWhi1bpGYHc tYDwREbzJMT4R20to6A9DQOwHX GhZKM9xYT8zQ9toVswlzgupJGq sIlotaXgvLweVDhwEZqgV552 NIVleQhyTf5DFxx3O6GgJlt2LS GoxRdnGK3awIXtLBsvVa0ywRee yTrtZB4rFSLxmcxuw056XoFb x7bgVNHjkAHkQLyfRLP2Z97uu2 I6MBLfKMOoPWI0eIR3vL3tqGde bjogbGVmdDsgdmVydGljYWwt OCfcO170OWPdmJuwDpTapXMnVy wvdGQ+FX25eq85Z3OeSsggFue4 DRDvJYA1lIE2dB1uINYzMCkw k2E7pFI1 (more content not included)... Normal [facility] IntraOperative Documentson 0 07-29-2022 IntraOperative Documents [id number]#1.00CD:127 Normal [facility] Postoperative Documentson Postoperative Documents [id number]#1.00CD:127 [facility] Main OR Intraoperative Recor don 07-28-2022 Main OR Intraoperative Record IntraOp Document Type FT Summary Primary Physician: Talon Mcbride DO Finalized Date/Time: 07/28/22 08:06:27 Pt. Name: GERRY VICTORIA /Sex: 1955 Female Med Rec #: [id number] Physician: Talon Mcbride DO Financial #: [id number] Pt. Type: A Room/Bed: [place] [address] Admit/Disch: 07/26/22 05:37:39 - 07/26/22 14:50:00 Institution: [...] Entry 2 Entry 3 Case Attendee Deppen RUBBER VULCANIZING MACHINE OPERATOR, Talon Lacey DO PAAngyC, Candis Barker Role Performed RUBBER VULCANIZING MACHINE OPERATOR Surgeon - Primary PA/SERVER DEVELOPER Time In 07/26/22 08:22:00 07/26/22 08:22:00 07/26/22 [...] Belkys Andrade Ii, Sarah M Role Performed Block Out Machine Operator - Primary Staff - Other Scrub - Primary Time In 07/26/22 08:22:00 07/26/22 08:22:00 07/26/22 08:22:00 Time Out 07/26/22 11:45:00 07/26/22 11:45:00 07/26/22 11:45:00 Procedure CHOLECYSTECTOMY CHOLECYSTECTOMY CHOLECYSTECTOMY LAPAROSCOPIC W/ LAPAROSCOPIC W/ LAPAROSCOPIC W/ CHOLANGI(.) CHOLANGI(.) CHOLANGI(.) Comments ORIENTATION RENETTA PANIAGUA QUILL SKINNER STUDENT, ALSO SCRUBBED IN Last Modified By: Karson RN, Umu Ty RN, Umu Ty RN, Umu Weber 07/26/22 11:54:21 07/26/22 11:54:21 07/26/22 11:54:21 Entry 7 Entry 8 Entry 9 Case Attendee Daphney RN, Ivet Newton RN, Jess Foley RT(R), Mamta Valles Role Performed Block Out Machine Operator - Relief Block Out Machine Operator - Relief Steam Engineer Time In 07/26/22 09:08:00 07/26/22 09:08:00 07/26/22 [...] Comments: SANGITA CAMILO, ALSO IN ATTENDANCE. JORDI NEALmixing machine tender cork rod Protocols FT Pre-Care Text: Implements protective measures [...] X-ray Applicable) PreOp Antibiotic Yes Time Out Deppen CINTHYA, Jeana S., Given Participants Reed MAHONEY, Talon Pastrana, Arben SNOWDEN, Karson Steele RNUmu Letrondo, Alfons Ii F, Danny Juliana Reid Time Out Complete 07/26/22 08:50:00 Outcomes Met? [...] Diagnosis C (more content not included)... Normal [facility] XR Cholangiogram in ORon XR Cholangiogram in [...] JANNETH Technologist: PAULINE Technical Comments Radiation Dose: Ka,r in mGy = 17.37 DAP = na Normal [facility] Blood Bank Slipon 07-27-2022 Blood Bank Slip [id number]#1.00CD:127 Normal [facility] Consent for Anesthesiaon Consent for Anesthesia [id number]#1.00CD:127 Normal [facility] Discharge Instructionson Discharge Instructions [id number]#1.00CD:127 Normal [facility] IntraOperative Documentson 0 07-27-2022 IntraOperative Documents [id number]#1.00CD:127 Normal [facility] Preoperative Documentson Preoperative Documents [id number]#1.00CD:127 Normal [facility] ABO/Rhon 07-26-2022 ABO/Rh Positive Invalid Interpretation Code [facility] Comment on above: Performed By: #### 1 [id number] #### [facility] [address] [place] [address] ABO/Rh History Checkon 07-26 ABO/Rh History Check Verified Hx Blood Type Normal [facility] Comment on above: Performed By: #### 1 [id number] #### [facility] [address] [place] [address] ABSCon 07-26-2022 ABSC Gel Interp Negative Normal [facility] Comment on above: Performed By: #### 1 [id number] #### [facility] [address] [place] [id number] BLOOD BANKOrdered By: Dell Taylor on 07-26-2022 ABO/Rh Interp Positive Invalid Interpretation Code [facility] BB Subsection ABSC Gel Interp Negative (07/26/22 6:23 AM) Normal [facility] BB Subsection Blood Bank ID#on 07-26-2022 BBID# [id number] Invalid Interpretation Code [facility] Comment on above: Performed By: #### 1 [id number] #### [facility] [address] [place] [address] Consent for Procedure/Surger yon 07-26-2022 Consent for Procedure/Surgery [id number]#1.00CD:127 Normal [facility] Consent for Treatmenton Consent for Treatment [id number]#1.00CD:127 Normal [facility] Discharge Instructionson Discharge Instructions GERRY VICTORIA :1955 Visit Date:07/26/2022 Inpatient Discharge Instructions Your [...] Trauma Clinic 2022 1:00 PM EDT With: MARYCARMEN NAVA PA-C Where: [facility] Comment on above: Result Comment: Elec tronically Signed By: Mili BACON, Robina Wolf\.br\Date and Time Signed: 07/26/22 13:15 EDT H&P Updateon 07-26-2022 H&P Update [id number]#1.00CD:127 Normal [facility] HEMATOLOGYOrdered By: Lucero Ramirez on 07-26-2022 Hematocrit (Bld) [Volume fraction] 31.8 % Low 34.0 - 46.0 % [facility] HemeAutoSS Hemoglobin (Bld) [Mass/Vol] 10.1 g/dL Low 12.0 - 16.0 gm/dL [facility] HemeAutoSS Hct & Hgbon 07-26-2022 Hematocrit (Bld) [Volume fraction] 31.8 % Low 34.0-46.0 [facility] Comment on above: Performed By: #### 1 [id number] #### [facility] [address] [place] [address] Hemoglobin (Bld) [Mass/Vol] 10.1 g/dL Low 12.0-16.0 [facility] Comment on above: Performed By: #### 1 [id number] #### [facility] [address] [place] [address] Main OR PACU I Recordon Main OR PACU I Record PACU Phase I Docum ent Type FT Summary Primary Physician: Talon Mcbride DO Finalized Date/Time: 07/26/22 12:58:56 Pt. Name: GERRY VICTORIA Maryann Wild./Sex: 1955 Female Med Rec #: [id number] Physician: Talon Mcbride DO Financial #: [id number] Pt. Type: A Room/Bed: [place] [address] Admit/Disch: 07/26/22 05:37:39 - Institution: Case Times [...] Signed By: Violette Castillo I 07/26/22 12:58 Normal [facility] Main OR PACU II Recordon Main OR PACU II Record PACU Phase II Doc ument Type FT Summary Primary Physician: Talon Mcbride DO Finalized Date/Time: 07/26/22 15:08:15 Pt. Name: GERRY VICTORIA/Sex: 1955 Female Med Rec #: [id number] Physician: Talon Mcbride DO Financial #: [id number] Pt. Type: A Room/Bed: [place] [address] Admit/Disch: 07/26/22 05:37:39 - 07/26/22 14:50:00 Institution: [...] By: Robina Garces RN 07/26/22 15:08 Normal [facility] Main OR Preoperative Recordo n 07-26-2022 Main OR Preoperative Record PreOp Document Type FT Summary Primary Physician: Talon Mcbride DO Finalized Date/Time: 07/26/22 09:32:38 Pt. Name: GERRY VICTORIA Maryann ShawB./Sex: 1955 Female Med Rec #: [id number] Physician: Talon Mcbride DO Financial #: [id number] Pt. Type: Room/Bed: [place] [address] Admit/Disch: 07/26/22 05:37:39 - Institution: Case Times [...] By: Umu Ty RN 07/26/22 09:32 Normal [facility] Monitor Recordon 07-26-2022 Monitor Record [id number]:127 Normal [facility] Monitor Record [id number]:127 Normal [facility] Operative Reporton 3 Operative Report Indication for [...] Surgeon(s) Talon Mcbride DO (Surgeon - Primary) Foam Caster Candis Theodore Anesthesia General Connie Winston DO ([place]) Jeana Villanueva CRNA (Other) Estimated Blood Loss 50 cc Urine [...] defect was closed with interrupted 0 Vicryl iofvag-zz-gqhhb sutures as well as the existing 0 Vicryl stay sutures. The skin incisions were closed with subcuticular 4-0 Monocryl suture. The skin incisions were then dressed with Dermabond. The prior percutaneous cholecystostomy site was covered with a 2 x 2 and tape. Patient was extubated and taken to PACU in stable condition. Normal [facility] Comment on above: Result Comment: Elec tronically Signed By: Talon Mcbride DO\.br\Date and Time Signed: 07/26/22 14:24 EDT Patient Education - [employer] 0 5-02-2023 Patient Education - Text Gastroenterology Minimally Invasive [...] these instructions at home: Medicines ? Take yuxk-ttc-mxzozdt and prescription medicines only as told by [...] cannot use soap and water, use hand strainer tender. ? Change your bandage. ? Leave stitches [...] provider. Document Revised: 09/14/2021 Document Reviewed: 09/14/2021 [employer] Patient Education ? 2022 [employer]. Cholelithiasis Cholelithiasis is a disease in which [...] types o (more content not included)... Normal [facility] Progress Note-Physicianon Progress Note-Physician Patient: GERRY VICTORIA [...] day(s), # 12 tab(s), Refills(s) 0, Pharmacy: [facility] [id number], 154, cm, 07/18/22 14:13:00 EDT, Height/Length Dosing, 74.6, kg, 07/18/22 14:13:00 EDT, Weight Dosing oxybutynin 10 mg ER Tab: 10 mg = 1 tab(s), Oral, Daily, # 90 tab(s), Refills(s) 3, Pharmacy: [facility] [id number], 154, cm, 11/30/21 13:27:00 EDT, Height/Length Dosing, [...] All Problems Acid reflux / SNOMED CT 1383514011 / Confirmed Anxiety / SNOMED CT 5732035162 / Confirmed Arthritis / SNOMED CT 3718658 / Confirmed Atrial fibrillation / SNOMED CT 43550931 / Confirmed Chronic fatigue syndrome / SNOMED CT 83642587 / Confirmed Constipation / SNOMED CT 447740591 / Confirmed Degenerative disc disease, lumbar / SNOMED CT 02797330 / Confirmed Depre (more content not included)... Normal [facility] Comment on above: Result Comment: [...] Daily, # 90 tab(s), Refills(s) 3, Pharmacy: [facility] [id number], 154, cm, 11/30/21 13:27:00 EDT, Height/Length Dosing, [...] All Problems Acid reflux / SNOMED CT 5215550793 / Confirmed Anxiety / SNOMED CT 9952511604 / Confirmed Arthritis / SNOMED CT 8953164 / Confirmed Atrial fibrillation / SNOMED CT 86166786 / Confirmed Chronic fatigue syndrome / SNOMED CT 98984463 / Confirmed Constipation / SNOMED CT 934073836 / Confirmed Degenerative disc disease, lumbar / SNOMED CT 50632289 / Confirmed Depression / SNOMED CT 27227378 / Confirmed Fibromyalgia / SNOMED CT 021317887 / Confirmed Herpes / SNOMED CT 901597170 / Confirmed History of irregular heartbeat / SNOMED CT 7235015013 / Confirmed (more content not included)... Normal [facility] Comment on above: Result Comment: Elec tronically Signed By: Connie Winston DO\.br\Date and Time Signed: 07/26/22 07:38 EDT Progress [...] Daily, # 90 tab(s), Refills(s) 3, Pharmacy: [facility] [id number], 154, cm, 11/30/21 13:27:00 EDT, Height/Length Dosing, [...] All Problems Acid reflux / SNOMED CT 7263749634 / Confirmed Anxiety / SNOMED CT 8023667952 / Confirmed Arthritis / SNOMED CT 8919337 / Confirmed Atrial fibrillation / SNOMED CT 80364897 / Confirmed Chronic fatigue syndrome / SNOMED CT 52880129 / Confirmed Constipation / SNOMED CT 635543288 / Confirmed Degenerative disc disease, lumbar / SNOMED CT 43841303 / Confirmed Depression / SNOMED CT 02886252 / Confirmed Fibromyalgia / SNOMED CT 785086124 / Confirmed Herpes / SNOMED CT 624550235 / Confirmed History of irregular heartbeat / SNOMED CT 5099319671 / Confirmed (more content not included)... Normal [facility] Comment on above: Result Comment: Elec tronically Signed By: Connie Winston DO.br\Date and Time Signed: 07/26/22 07:19 EDT Coding Summary.on 07-21-2022 Coding Summary. CD:[id number] Ww+PGh lYWQ+ZK9UGRCvT57lhPUelH8aD 0NMTElOSywgQVBQTElOSyIgbmF xDM9zrJHjYQSq IC8+LX9aGATqDgtiuWKwv6H5eV Y4A88dtc0oNUkxdUH9TWSrIuVc tjmfv2zzcEz8RCojUprcAaUy TQZwmI41BGL0nE26Vj31ySGwwD Fad6bzdZj8NpZnJEYqBQL3jMuy UNhos1LgMZScH70jaEDoy1Z1 IBEmhQkpqFBaGbWxaFI4bC7wSY vdbgdie2ipeqtvNgp8qs01jGSe t9J0sXE3O8VnkiK8ZGTcyAYy QayelCBMpH9fcamev6qiqoxsBw TuZKJsHCh5KUr7OKHgcEjzFtDb HI76MVR3HPTthxQkF8SaXADc vUpqTxK8g3F2Du9EW8OSUnwiC4 VNTUFSWTwvdGQ+WP86vq20M8Ad FvdqJdi4SZLbQHH1qFU7rA3e DCOjAGkul4F7mCT0E8KixhKbzv 4th1qpAYGmMPiwM96dvHPrl6N4 ETOjaLK2UMDsnIddPwJhnH54 Oyc+YAXeaJzbq5ErOkrol0ash8 qoqCl0ObtzEZIplsDrcKsuUDY9 w9VqAg3iMRTcfMW6wMM0dH6p AzBvVdW1YWvuJ533QkIxaDVzIy wiZ00dY5XybJY+VKOfNvo4KIEm qLilIY7aQ6UwKRIlhvahzQYd cSngDR5fGJVuuxatTUWjqB8hQD XaK8l9PiUaWzX1XIapR1IaBODi xnzuLx05iS4uYnVnDsJ3GKug W3TlpdT2IYNbbCMuMTwxAEP7U0 8sk7E7RHTkKFNuTFT8eIE5wU6z bGlnbjogbGVmdDsgdmVydGlj NJqnOUgyR745JKIqtYfvYwJhZM luZyBEYXRlOiAgMDQvMjcvMjAy MzwvdGQ+JHNhTVZ7vCtkPNDf nOZnBJlxJu0atZmhzSnsIU1tDY TlxwxqTTGfmB9qZFNscWYqvLtb FU3bKOWcuoxkg700CfQnZYW6 VIQrnUDoV2RzcP1sCvWaRWGzAA UeU1YbdUYyWLzbG259IMqzXkK7 YBHiphDdU4QlNPArsPcdAgD1 r3H7Gh2Rs5ObgggbV6CkmCFlDp YrUzpoGHf6X2PjBwfkmUF+PC90 TKEiJS50JYy2YME0hCsfNSqb IOZtQ5NjnK4kHyCjMNRlGTMgKi c+PHRhYmxlIHdpZHRoPScxMDAl FtEdzIbjYM0fGy6fVTZtTEJv vMcitOEuDlAcx7jvHPKbRWxpOI 9phIhbO2DagXW4GVWfj8v8Ya70 B17hP8TmaPK+KVFvySR1jYT3 jV6zZkRvTaI7MPrjL321GzJinT YsDovxh0btk3qjlUf4OrJ5MMVm mcUeoArwJRL5d9JpJv24N25i IHdpZHRoPSIxNSUiIHZhbGlnbj 2siO8lRe2+IOJwmOX0sZE2uB1i VkYcPvG5CLurZ354LoTayRLz Qcahq6fxc3kyiOv7JzQhOFFykl QijCjnMIG4v0GcAq03S4QkeOvz a4RtDyi2qf59yTWja7Z2vWF7 J3GjXMKmcrouqCOqrUwzOR3wKL MwldsoNXPwyY7iHTIlG1k2QrVn VtW2ZIhiO7OozvE7WFTepUHa UQBjqQXQkP7nhvgud5gfgqhlTk TmHHFnRHv0BAs4VCSogVtjWqXz ZLA4JpD8OOB7aFYgxG7dfDhz yawuxQ3kTns+DEH5iFItjIJFBE 1lOjwvdGQ+WNSwPIF0hRirPNbk GIZwzX0wKPJmZ7j7ZrBeSdI9 DWcoI1BufrX2PFIcvHKfNESmxW FSdT1ncwtzp4dykqzmOvAiADEm GNl6SPl8HHPlwVatKxLvYCQ4 DyN6PAW4dWFslG0rdZjbwmvcfF 9wOyc+LraeeGtmMYU0PZl4J9Ii Lhl9YRDejIwuDS6qgFDzVWvc Wu7jaYzpfTmuZB3rRMApxollh6 30KoLtk1piNNJhcLMkYAttQGG1 A59lp6T9TEZzBVZlSXS5yCZ6 mD2djWkxwyfopETfwBrxbuRtjX erLLsiCNgrF239JUGizRwjIbDo XHt9R7FkIhv5SHJtwNvpZU7s gMBjPClkAo1wdPjfpOucED5yMA Fkyjkbr965EdGnd6qaPRVrsXBn IFjlKJJ3C69va1P8DNDyFWQt ONU2jKT3dD7zhLzooesrfMMwiY tjyqOnoIudDBvxOMcsA165VBGg iHfpNtIjtVb5X3LaDut3QVIj uYneLI8niCVnORmyGz1ijRbfpZ uyPH0lKMZeacoec778CbOwg6cz PYBpcKYcSUsnNZB6S22on5O9 FWAoNXGoZDL5yHS3eW7mwWiomr ogbGVmdDsgdmVydGljYWwtYWxp N241VOTmtVznKrHsyOomwhLn GSvlYLp4W0SfPnuixJL+PC90YW OjDI40fKXshNNyn6ucaSy5TnXw HSWiNXW0eBowNGoir0DlLQJl Z01tiMJyl4X2KFLnbTsjsJIbQp IwxOH9vE7mIYvquqvjq9znurfq Unros7muuo61qH88B11nBLxu KLVtXQPuMVGiRIGjuXwfrx3xcF 9wIi8+UFRyeLQ9mAZ0rH2oQBVi XmT3ASesG303RbAvmCEyEhry i7cuv5fhfCw5HdX4WXZpfzDpwQ jhJEP8m4QeXk11P17zPJtbRAKx PMNkPYRqJJXdiGnvuz4dxE9w Ii8+SPMwtYD5qZY2kA8rWhBkSz U3IKwxZ238OtFtjCGxVqreM77n R2EcfKU+JURhKlb7NYUbjQhk GW4wrTAsERflNm3uISO9NhUnFu JmYQveO2RkYEPadwdnibcjuBJ5 CWLnIZSbiL24Xk0bqYzsGQFs xDJWtI1wbxfaf7qsrzbkBzFfLD GpOUs9EFe1ZGDugQgvCjIpEUT4 ToI8BKB8eZNfmH6baQvtyqzg uL7lR2AzTSOxowwfVu02qO7aJf LfCgT1YHpoYif+FXcLAT3HZFDH RKIUHhWJBP60EZ46cLFuu7J9 iVP6U7IpXLXlhpfxdhgckZT0KX NeRIEdwB45yMCdCNweAn7no1K8 s857FJVmZROsdJ39Dk5fkUlr UQVpgMNJjO0qnushl9jihansKn RkFDUmQTk4UNc5KKRkcEfyZuSw BWI7QwN9TKI7pZMfaA5sqAyo obgfmU6qFpt+IPInBkQhGXe4XI wvdGQ+GFElJQQ9fDkiHCaxHOVw xT2xMHAbO5u4OvCdJiV3FEbr B7IjZGLhfbarNg46oT4fObLeSd E9DVbiA3ErwyZ0INXgkQYpSApw LAG1B11ds2T1YJFvCHJaYXV0 kUN6rY9gzTaftvzoiIVkqPpsen KxiBurXUokZXreJ151PTElzQuf QuF3SMmeVHAvBM67PV80fVGh c7X7bJK3Z6UeGOQfvcbkyloahH X0DXIcGJRwaH47jHTvNHsaGn8x u4Z5c044JNLwVVAbgW31Uz7u eCbrDXAkoPHVhH9udlhrb7niiz sjRgVpCKLlKEs7BIx1VAVdnDco TvKaYSM2AkE1ZEP6hAFwzG0h kIvhuhygxP4xIgu+RmVtYWxlPC 40KD35uASmv3M3wGU8D0AaWLNu jhhqqtmosSS7TEDoAHKmbV30 uHHlHBhaNg0vs7Q5c227SWXaZV IetY48Bp7yuVyjRONkkKQQzH7f sqspf0rkfbmjWeSoIXIaRLw3 AIw2YNLmaVwpVgTvMBR4RuH4VK Y7nWOypJ1xlCikjzkzkG0vNza+ C1I7fCN9qOGldVihqOZ+PC90 hs34Y6MpYrrbSnh9YCKrGYB5lW N4pL2uDSPsCMuwt0C3xVK1D9Vm hqMmqm5sm0sjJQFdOFelZ30r kGOce8Z4VUQwwSW5FPEgvFliYv AvrR00Nkb+HVDmoFzdm1AmMbfv h4rjo0ixgWk9EkVeCXDcwmPw tDqqSEY0c9OwSu59A36mTYfzWI DqQRPtQXTkJPAreCqppq8hcD3e Ii8+BADsaZZ1yJT1wT3eOvXg OuO8UXftX816XpNnrJVeEgktm1 xcw7xplKd8MvPdBWUxroGssKpm UYZ6c1GlZw56S8EdmJhpr9Fz Doz7xi06sIPkj5Z6uVH1N3KbQO WyqhybiXRpsBjhNY4vUFSwohsg EYHtqQ6gCUBdV5m6CyAgAqY0 WYkwU1ZnmfG8IDInxRTmOYZeuM QVeU1qskstd7umovimJgFiNLGu TPq5NZe2JOPoqLasVpExKNU2 KkA5BMK3vPTzeR3fnFecdmwnhY 9wOyc+HJc6m5lgrYBgIF9btTL8 KF36CW07rHWgo8M8wLY9S2Fn PGEribvptpnfkYR5LCXvBSKiaC 35Xm7wgKsiWt7wRUZwQAY6OEKa oTGbY4QilG1mMfPuEJXdMESo X7TulMDjCDlrE114QZnsZdV4QH PirgHzM0TrIOIoyKqkKpV5m6T3 Kw7UZP98JJ04AZ04mYNfg1B1 fBD6E5BjUOLgcwqngkzezTO9VT XbVTPylO12Xx5cwUzkEp9jZXQs PEQ1RAXpjAEoC1FnzC1jFyBe ELTkCVUjQ6DawABcTHlvG100GY zjFmH3SYTrakJkE2ZlKAPwrIth AnP5h7W4As9FBl87FV47BH85 uELhy9Y8vQE0I2DuSJHvgnkyni iuiVA4YWGqAWFypA05Us4rsDve Sk5kSELkJVK6JSViuKMrW6Gy iE7vEiUdZGWzANCjQ2EgsPJzUC heC402BSsrMwW8KIPwkbTiY6Dh ZFDtlGmdUhY9a6B2Ji6MWVxg iwq0B8FuSkyqzVT+TO41PJDzTD 42qMZgiXTba6vbxKv2KkHeEGKx YQN9tRtcIZuab7DhNAHvN66n nSTyf4R4 (more content not included)... Normal [facility] BUNon 07-18-2022 Urea nitrogen [Mass/Vol] 10 mg/dL Normal 5-21 [facility] Comment on above: Performed By: #### 2 701670, 0177981, 6394330, 9579107, 8033816, 17006677 ####[facility] [address] [place] [address] CBC w/Indiceson 07-18-2022 Erythrocyte distribution width (RBC) [Ratio] 16.6 % High 10.9-14.2 [facility] Comment on above: Performed By: #### 2 207630, 5980555, 9730541, 1912891, 3778182, 71232045 ####[facility] [address] [place] [address] Hematocrit (Bld) [Volume fraction] 29.8 % Low 34.0-46.0 [facility] Comment on above: Performed By: #### 2 050809, 5236445, 3268180, 1784168, 2942899, 09538638 ####[facility] [address] [place] [address] Hemoglobin (Bld) [Mass/Vol] 9.5 g/dL Low 12.0-16.0 [facility] Comment on above: Performed By: #### 2 492813, 2979976, 0222334, 7702598, 3487647, 25366001 ####[facility] [address] [place] [address] MCH (RBC) [Entitic mass] 26.1 pg Low 27.0-34.0 [facility] Comment on above: Performed By: #### 2 591101, 4178866, 7863895, 8580625, 6922885, 72179680 ####[facility] [address] [place] [address] MCHC (RBC) [Mass/Vol] 31.9 g/dL Normal 31.4-36.0 [facility] Comment on above: Performed By: #### 2 259457, 3856746, 3449417, 3703339, 5682971, 95619288 ####[address] [place] [address] MCV (RBC) [Entitic vol] 81.9 fL Normal 80.0-100.0 [facility] Comment on above: Performed By: #### 2 693388, 8973446, 2906706, 0983613, 1500633, 18259018 ####[address] [place] [id number] Platelet mean volume (Bld) [Entitic vol] 7.1 fL Normal 6.4-10.8 [facility] Comment on above: Performed By: #### 2 483072, 8762581, 0792498, 8044448, 1873152, 93264058 ####[facility] [address] [place] [address] Platelets (Bld) [#/Vol] 249.0 E9/L Normal 150.0-500. 0 [facility] Comment on above: Performed By: #### 2 101673, 7074123, 7277712, 9248405, 0063909, 57876179 ####[place] [address] RBC (Bld) [#/Vol] 3.6 E12/L Low 4.3-5.9 [facility] Comment on above: Performed By: #### 2 803547, 4831359, 9641594, 9194281, 7081781, 16809248 ####[address] [place] [address] WBC corrected for nucl RBC Auto (Bld) [#/Vol] 5.0 E9/L Normal 4.0-11.0 [facility] Comment on above: Performed By: #### 2 885052, 7678997, 8653195, 5771914, 1476971, 15341621 ####[facility] [address] [place] [address] CHEMISTRYOrdered By: SYSTEM SYSTEM on 07-18-2022 Anion gap [Moles/Vol] 9 mmol/L Normal 6 - 16 mEq/L [facility] Remisol Chloride [Moles/Vol] 101 mmol/L Normal 101 - 1 11 mmol/L [facility] Remisol CO2 [Moles/Vol] 30 mmol/L Normal 21 - 31 mmol/L [facility] Remisol Creatinine [Mass/Vol] 0.8 mg/dL Normal 0.5 - 1.3 mg/dL [facility] Remisol GFR/1.73 sq M.predicted among blacks MDRD (S/P/Bld) [Vol rate/Area] mL/min/1.73 m2 Normal >=59mL/min /1.[address] [facility] Chem S GFR/1.73 sq M.predicted among non-blacks MDRD (S/P/Bld) [Vol rate/Area] mL/min/1.73 m2 Normal >=59mL/min /1.[address] [facility] Chem S Glucose [Mass/Vol] 93 mg/dL Normal 55 - 199 mg/dL [facility] Remisol Potassium [Moles/Vol] 3.7 mmol/L Normal 3.5 - 5.3 mmol/L [facility] Remisol Sodium [Moles/Vol] 136 mmol/L Normal 135 - 145 mmol/L [facility] Remisol Urea nitrogen [Mass/Vol] 10 mg/dL Normal 5 - 21 mg/dL [facility] Remisol Consent for Treatmenton 06-26 Consent for Treatment [id number]:127 Normal [facility] Creatinineon 07-18-2022 Creatinine [Mass/Vol] 0.8 mg/dL Normal 0.5-1.3 [facility] Comment on above: Performed By: #### 2 780139, 1531705, 3808902, 7509062, 3891603, 88870738 ####[facility] [address] [place] [address] Glucoseon 07-18-2022 Glucose [Mass/Vol] 93 mg/dL Normal 55-199 [facility] Comment on above: Performed By: #### 2 780085, 8769791, 2157728, 6501440, 9822428, 28436495 ####[facility] [address] [place] [address] HEMATOLOGYOrdered By: Helen Chowdhury on 07-18-2022 Erythrocyte distribution width (RBC) [Ratio] 16.6 % High 10.9 - 14.2 % [facility] Hematocrit (Bld) [Volume fraction] 29.8 % Low 34.0 - 46.0 % [facility] Hemoglobin (Bld) [Mass/Vol] 9.5 g/dL Low 12.0 - 16.0 gm/dL [facility] MCH (RBC) [Entitic mass] 26.1 pg Low 27.0 - 34.0 pg [facility] MCHC (RBC) [Mass/Vol] 31.9 g/dL Normal 31.4 - 36.0 gm/dL [facility] MCV (RBC) [Entitic vol] 81.9 fL Normal 80.0 - 100.0 fL [facility] Platelet mean volume (Bld) [Entitic vol] 7.1 fL Normal 6.4 - 10.8 fL [facility] Platelets (Bld) [#/Vol] 249.0 E9/L Normal 150.0 - 500.0 E9/L [facility] RBC (Bld) [#/Vol] 3.6 E12/L Low 4.3 - 5.9 E12/L [facility]Auto[facility] WBC corrected for nucl RBC Auto (Bld) [#/Vol] 5.0 E9/L Normal 4.0 - 11.0 E9/L [facility] Lyteson 07-18-2022 Anion gap [Moles/Vol] 9 mmol/L Normal 6-16 [facility] Comment on above: Performed By: #### 2 381697, 6269228, 1135862, 6241279, 1541168, 68220027 ####[facility] [address] [place] [address] Chloride [Moles/Vol] 101 mmol/L Normal 101-111 [facility] Comment on above: Performed By: #### 2 883236, 2967401, 7215219, 3351862, 4458386, 81268005 ####[facility] [address] [place] [address] CO2 [Moles/Vol] 30 mmol/L Normal 21-31 [facility] Comment on above: Performed By: #### 2 441431, 8230167, 0599330, 0135317, 4529747, 63685246 ####[facility] [address] [facility] [place] [address] Potassium [Moles/Vol] 3.7 mmol/L Normal 3.5-5.3 [facility] Comment on above: Performed By: #### 2 188386, 7974054, 1855911, 9925168, 2558373, 09544331 ####[facility] [address] [place] [address] Sodium [Moles/Vol] 136 mmol/L Normal 135-145 [facility] Comment on above: Performed By: #### 2 789449, 3900031, 5550326, 2108481, 6065888, 86125639 ####[facility] [address] [place] [address] XR Chest 2 Viewson 3 XR Chest [...] Signed by: Talon Tyson M.D. Transcribed by: DP Technologist: CC Technical Comments Radiation Dose: Ka,r in mGy = na DAP = na Normal [facility] eGFRon 07-18-2022 GFR/1.73 sq M.predicted among blacks MDRD (S/P/Bld) [Vol rate/Area] mL/min/{1.73_m2} Normal >=59 [facility] Comment on above: Order Comment: Order added by Discern Expert. Result Comment: eGFR is race adjusted. AA=. Performed By: #### 2 740844, 1405745, 7708781, 9114059, 2239138, 42736582 ####[facility] [address] [place] [address] GFR/1.73 sq M.predicted among non-blacks MDRD (S/P/Bld) [Vol rate/Area] mL/min/{1.73_m2} Normal >=59 [facility] Comment on above: Order Comment: Order added by Discern Expert. Result Comment: Inspector Fabric heidi kidney disease could be indicated at eGFR's of less than 60 mL/min/1.73m2. Kidney failure is indicated at less than 15 mL/min/1.73m2. Performed By: #### 2 278089, 3341762, 8070379, 4336286, 9800429, 38263729 ####[facility] [address] [place] [address] Telephone Encounteron 2022 [employer] Authentication Interface Message Text Patient called regarding a rash near her drain that is right by her breast. Gaudencio is triaging Ms. Victoria, Gaudencio has suggest for patient to go to Urgent care and or call her primary care doctor. Appt is Monday07/13/2022. Normal [facility] Telephone Encounteron 2022 Webbing Weaver Authentication Interface Message Text Situation: Pt called states she is unsure how to flush gall bladder tube since it was changed yesterday. Background: 07/05/22 Procedure: Cholecystogram with catheter exchange Assessment: See triage Recommendation: Contacted IR operator electronic warfare, Dr Hollis advised for pt to contact [...] No Protocols used: Post-Op Incision Symptoms and Xnrcitmfe-Y-EA Normal The [employer] Authentication Interface Message Text Sindy Gaudencio Patient: Gerry Victoria [phone] Ms. Victoria has an appt w/ on 07/13/2022 at 2:45 pm. Pt complaining about severe pain last night, when she moved, it was an ache. She did not tell me where the pain was coming from, when I asked her. She stated that today she feels better, but she was concerned about the pain she experienced last night 07/05/2022. Normal [facility] RF Biliary ducts Views W con trast [...] successful exchange of drainage catheter. MACRO: None [facility] Study observation (narrative) [facility] Telephone Encounteron 2022 Webbing Weaver Authentication Interface Message Text Patient returned clinic call. Informed of message per notes below. Patient verbalized understanding and voiced no further questions. Normal [facility] Webbing Weaver Authentication Interface Message Text would like Ms. [...] the appt date and time. Normal [facility] Office Visit (Cardiology)on 06-30-2022 Follow-up visit Diagnoses/Problems [...] IO EKG Electrocardiogram- 12 Lead; Status:Complete; Done: 30Jun2022 SocHx: Former smoker Tobacco Use Screening; Status:Complete; Done: 30Jun2022 Tobacco Use Screening; Status:Complete; Done: 30Jun2022 Unlinked Stop: Losartan Potassium 25 MG Oral [...] mg as directed otc Retrieve echo from [facility] Follow up in 3 months The provider reviewed the following test(s) and result(s) with the patient: ECG Chief Complaint GERRY VICTORIA is being seen for a consultation for atrial flutter and palpitations. F/u heart cath done in [facility]. History of Present Illness Patient is here for cardiovascular evaluation following recent hospitalization for what appeared to be acute cholecystitis. Records were retrieved and reviewed. Patient presented to [facility] with symptoms of abdominal pain and was diagnosed with what appeared to be gallbladder disease and peritonitis. She was transferred to [facility] where she underwent work-up. 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 She reported [...] The patient to keep her appointment with [facility] surgery for upcoming procedure of cholecystectomy and gallbladder drainage removal 5. I advised the patient she can use some zbqw-rma-vodnoaz Claritin to address her what appeared to [...] 1 CA (more content not included)... Normal [facility] Tobacco Screening.on 023 Adult depression screening assessment No [facility] [employer] 600 DO Work Phone: Fall risk assessment a) No falls within the last year [facility] [address] DO Work Phone: Tobacco use status [facility] b) No [facility] 600 DO Work Phone: Telephone Encounteron 2022 Webbing Weaver Authentication Interface Message Text Pt called c/o sx of poor leg circulation,and Gaudencio spoke to her to triage the patient. Normal [facility] Addendum Noteon 06-18-2022 Webbing Weaver Authentication Interface Message Text Addended by: NIKITA HEIN on: 06/18/2022 03:47 PM Modules accepted: Orders, Level of Service Normal [facility] Telephone Encounteron 2022 Webbing Weaver Authentication Interface Message Text Sophy transferred phone [...] in the mail by Monday Normal [facility] Telephone Encounteron 2022 Webbing Weaver Authentication Interface Message Text Sinyd Morales, Patient: Gerry Victoria [phone] Ms. Victoria had a visit with Dr. Conley on Monday06/15/2022, seen by Dr. Hein in yesterday's clinic. Questions: Ultrasound order was placed for Ms. Victoria, do she have to come her to [facility] to have the ultrasound, or can she have the ultrasound done in [place]? (there is not a [facility] in [place]) Medication refill of Ropinirole 2mg 1-tab QD was not received by her pharmacy, can you call in the prescription to my pharmacy at ([facility] ) [phone]?. I am waiting for Carmen, or and or Dr. Conley to respond. Sohpy Knowles was told that Dr. Hein was out of town and that she will receive the prescription in the mail. I will call the patient to find out what hospitals she will be going to in [place] [phone] fax:[phone] Gaudencio spoke to her about the prescription and to contact her pharmacy about the ropinirole 2 mg to [facility]. Addendum: IR procedure, Gaudencio will follow-up with [facility] to see if they can do the IR procedure, we will submit or fax orders at that time. Normal [facility] CBC panel Auto (Bld)on 06-15 Erythrocyte distribution width (RBC) [Ratio] 15.0 % High 11.5 - 14.5 % [facility] Hematocrit (Bld) [Volume fraction] 26.4 % Low 36.0 - 46.0 % [facility] Hemoglobin (Bld) [Mass/Vol] 9.0 g/dL Low 12.0 - 15.0 g/dL [facility] Interpretation and review of laboratory results Abnormal [facility] MCH (RBC) [Entitic mass] 27.6 pg 26.0 - 34.0 pg [facility] MCHC (RBC) [Mass/Vol] 34.1 g/dL 32.0 - 35.9 g/dL [facility] MCV (RBC) [Entitic vol] 81 fL 80 - 100 fL [facility] Platelet mean volume (Bld) [Entitic vol] 7.8 fL 7.5 - 11.2 fL [facility] Platelets (Bld) [#/Vol] 262 10*3/uL 150 - 400 K/uL [facility] RBC (Bld) [#/Vol] 3.26 10*6/uL Low [facility] WBC (Bld) [#/Vol] 6.2 10*3/uL 4.5 - 11.5 K/uL [facility] COMPLETE BLOOD COUNTon 06-15 Erythrocyte distribution width (RBC) [Ratio] 15.0 % High 11.5-14.5 [facility] Comment on above: Performed By: #### [id number] #### NURSING GLUCOSE PROGRAM [address] [place] [address], [address] Hematocrit (Bld) [Volume fraction] 26.4 % Low 36.0-46.0 [facility] Comment on above: Performed By: #### [id number] #### NURSING GLUCOSE PROGRAM [address] [place] [address], [address] Hemoglobin (Bld) [Mass/Vol] 9.0 g/dL Low 12.0-15.0 [facility] Comment on above: Performed By: #### [id number] #### NURSING GLUCOSE PROGRAM [address] [place] [address], [address] MCH (RBC) [Entitic mass] 27.6 pg Normal 26.0-34.0 [facility] Comment on above: Performed By: #### 8 [id number] #### NURSING GLUCOSE PROGRAM [address] [place] [address], [address] MCHC (RBC) [Mass/Vol] 34.1 g/dL Normal 32.0-35.9 [facility] Comment on above: Performed By: #### [id number] #### NURSING GLUCOSE PROGRAM [address] [place] [address], [address] MCV (RBC) [Entitic vol] 81 fL Normal 80-100 [facility] Comment on above: Performed By: #### [id number] #### NURSING GLUCOSE PROGRAM [address] [place] [address], [address] Platelet mean volume (Bld) [Entitic vol] 7.8 fL Normal 7.5-11.2 [facility] Comment on above: Performed By: #### 8 [id number] #### NURSING GLUCOSE PROGRAM [address] [place] [address], [place], [address] Platelets (Bld) [#/Vol] 262 10*3/uL Normal 150-400 [facility] Comment on above: Performed By: #### 8 [id number] #### NURSING GLUCOSE PROGRAM [address] [place], [address] RBC (Bld) [#/Vol] 3.26 10*6/uL Low 4.00-5.20 [facility] Comment on above: Performed By: #### 8 [id number] #### NURSING GLUCOSE PROGRAM [address] [place], [address] WBC (Bld) [#/Vol] 6.2 10*3/uL Normal 4.5-11.5 [facility] Comment on above: Performed By: #### 8 [id number] #### NURSING GLUCOSE PROGRAM [address] [place], [address] PROTHROMBIN TIME AND INRon 0 06-15-2022 INR Coag (PPP) [Relative time] 1.08 {INR} Normal 0.90-1.10 [facility] Comment on above: Performed By: #### 8 [id number] #### NURSING GLUCOSE PROGRAM [address] [place], [address] PT Coag (PPP) [Time] 12.2 s Normal 9.7-12.9 [facility] Comment on above: Performed By: #### 8 [id number] #### NURSING GLUCOSE PROGRAM [address] [place], [address] INR Coag (PPP) [Relative time] 1.08 {INR} 0.90 - 1.10 [facility] Interpretation and review of laboratory results [facility] (PPP) [Time] 12.2 s [facility] En[facility]on 2022 [employer] Authentication Interface Message Text Situation: pt is [...] Not assessed Protocols used: Post-Op Symptoms and Sbjsjiqpl-T-YV, Breathing Tdlzyusqae-H-HZ Normal [facility] BASIC METABOLIC PANELon 03-0 Anion gap [Moles/Vol] 15 mmol/L Normal 10-20 [facility] Comment on above: Performed By: #### C H8, HEPATIC #### [facility] [address] [place] [address], Calcium [Mass/Vol] 8.4 mg/dL Normal 8.4-10.4 [facility] Comment on above: Performed By: #### C H8, HEPATIC #### [facility] [address] [place] [address], Chloride [Moles/Vol] 100 mmol/L Normal 97-111 [facility] Comment on above: Performed By: #### C H8, HEPATIC #### [facility] [address] [place] [address], CO2 [Moles/Vol] 27 mmol/L Normal 21-30 [facility] [facility] Comment on above: Performed By: #### C H8, HEPATIC #### [facility] [address] [place] [address], Creatinine [Mass/Vol] 0.76 mg/dL Normal 0.50-1.10 [facility] Comment on above: Performed By: #### C H8, HEPATIC #### [facility] [address] [place] [address], ESTIMATED GFR (CKD-EPI) 85 mL/min/1.73sqm Normal >=60 [facility] Comment on above: Result Comment: 2020 [...] Inclusion of Race in Diagnosing Kidney Disease. Ukrainian Journal of Kidney Diseases 2021;79(2):268-88.e1. 2. N Engl J Med 1 Vol. 385 Issue 19 Pages 2492-2528 Performed By: #### C H8, HEPATIC #### [facility] [address] [place] [address], Glucose [Mass/Vol] 94 mg/dL Normal 80-116 [facility] Comment on above: Performed By: #### C Valeri8, HEPATIC #### [facility] [address] [place] [address], Potassium [Moles/Vol] 3.5 mmol/L Normal 3.3-5.3 [facility] Comment on above: Performed By: #### Meenu Trammell8, HEPATIC #### [facility] [address] [place] [address], Sodium [Moles/Vol] 138 mmol/L Normal 135-148 [facility] Comment on above: Performed By: #### Meenu Trammell8, HEPATIC #### [facility] [address] [place] [address], Urea nitrogen [Mass/Vol] 6 mg/dL Low 8-22 [facility] Comment on above: Performed By: #### Meenu Mccormick, HEPATIC #### [facility] [address] [place] [address], COMPLETE BLOOD COUNT 05-25 Erythrocyte distribution width (RBC) [Ratio] 15.2 % High 11.5-14.5 [facility] Comment on above: Performed By: #### Meenu Mccormick, HEPATIC #### [facility] [address] [place] [address], Hematocrit (Bld) [Volume fraction] 34.5 % Low 36.0-46.0 [facility] Comment on above: Performed By: #### Meenu Mccormick, HEPATIC #### [facility] [address] [place] [address], Hemoglobin (Bld) [Mass/Vol] 12.0 g/dL Normal 12.0-15.0 [facility] Comment on above: Performed By: #### Meenu Mccormick, HEPATIC #### [facility] [address] [place] [address], MCH (RBC) [Entitic mass] 28.6 pg Normal 26.0-34.0 [facility] Comment on above: Performed By: #### Meenu Mccormick, HEPATIC #### [facility] [address] [place] [address], MCHC (RBC) [Mass/Vol] 34.8 g/dL Normal 32.0-35.9 [facility] Comment on above: Performed By: #### C H8, HEPATIC #### [facility] [address] [place] [address], MCV (RBC) [Entitic vol] 82 fL Normal 80-100 [facility] Comment on above: Performed By: #### C H8, HEPATIC #### [facility] [address] [place], [place], Platelet mean volume (Bld) [Entitic vol] 7.7 fL Normal 7.5-11.2 [facility] Comment on above: Performed By: #### C H8, HEPATIC #### [facility] [address] [place] [address], Platelets (Bld) [#/Vol] 348 10*3/uL Normal 150-400 [facility] Comment on above: Performed By: #### C H8, HEPATIC #### [facility] [address] [place] [address], RBC (Bld) [#/Vol] 4.19 10*6/uL Normal 4.00-5.20 [facility] Comment on above: Performed By: #### C H8, HEPATIC #### [facility] [address], [place], WBC (Bld) [#/Vol] 8.7 10*3/uL Normal 4.5-11.5 [facility] Comment on above: Performed By: #### C H8, HEPATIC #### [facility] [address], [place], Care Plan Noteon 05-25-2022 Webbing Weaver Authentication Interface Message Text Problem: Routine Care: [...] demand and imbalance Outcome: Progressing Normal [facility] GLUCOSE, FINGERSTICK-IN OFFI CEon 05-25-2022 Glucose [Mass/Vol] 77 mg/dL Low 80-116 [facility] Comment on above: Performed By: #### C H8, HEPATIC #### [facility] [address] [place] [address], Glucose [Mass/Vol] 92 mg/dL Normal 80-116 [facility] Comment on above: Performed By: #### 8 2948 #### NURSING GLUCOSE PROGRAM [address] [place], [address] Glucose [Mass/Vol] 93 mg/dL Normal 80-116 [facility] Comment on above: Performed By: #### C H8, HEPATIC #### [facility] [address] [place] [address], MAGNESIUMon 05-25-2022 Magnesium [Mass/Vol] 2.0 mg/dL Normal 1.6-2.8 [facility] Comment on above: Performed By: #### C H8, HEPATIC #### [facility] [address] [place] [address], Progress Noteson 05-25-2022 Webbing Weaver Authentication Interface Message Text Pt is rec to dc home with no homegoing needs. Pt reportedly has sister who can provide PRN assistance. Medical team to please notify SW if any SW or DC concerns arise. Franky Lane MSSA,P[employer]CH PRESS OPERATOR Normal [facility] Webbing Weaver Authentication Interface Message Text Accuchecks not uploading into [employer]- are as follows 2000- glucose 94 0000- glucose 93 0400- glucose 93 Normal [facility] Webbing Weaver Authentication Interface Message Text Pt emptied and flushed drain with RN supervision. No further questions at this time, will; reinforce in the AM. 0630 Pt flushed and emptied drain w/ RN supervision. No further questions at this time, written instructions for both provided to pt. Normal [facility] BASIC METABOLIC PANELon 02-2 Anion gap [Moles/Vol] 18 mmol/L Normal 10-20 [facility] Comment on above: Performed By: #### H STRP #### [facility] [address] [place] [address], Calcium [Mass/Vol] 8.6 mg/dL Normal 8.4-10.4 [facility] Comment on above: Performed By: #### H STRP #### [facility] [address] [place] [address], Chloride [Moles/Vol] 100 mmol/L Normal 97-111 [facility] Comment on above: Performed By: #### H STRP #### [facility] [address] [place] [address], CO2 [Moles/Vol] 24 mmol/L Normal 21-30 [facility] Comment on above: Performed By: #### H STRP #### [facility] [address] [place] [address], Creatinine [Mass/Vol] 0.66 mg/dL Normal 0.50-1.10 [facility] Comment on above: Performed By: #### H STRP #### [facility] [address] [place] [address], ESTIMATED GFR (CKD-EPI) 95 mL/min/1.73sqm Normal >=60 [facility] Comment on above: Result Comment: 2020 CKD EPI Equation using Creatinine without Race Comment: Estimated glomerular filtration rate (eGFR) is calculated without a race coefficient. Values should be interpreted in the context of the patient's full clinical presentation. Reference: 1. Leonardo Corrigan, Makayla M, Ilya DC, et al.. A Unifying Approach for GFR Estimation: Recommendations of the NKF-ASN Task Force on Reassessing the Inclusion of Race in Diagnosing Kidney Disease. Ukrainian Journal of Kidney Diseases 2021;79(2):268-88.e1. 2. N Engl J Med 1 Vol. 385 Issue 19 Pages 0955-5956 Performed By: #### H STRP #### [facility] [address] [place] [address], Glucose [Mass/Vol] 88 mg/dL Normal 80-116 [facility] Comment on above: Performed By: #### H STRP #### [facility] [address] [place] [address], Potassium [Moles/Vol] 3.5 mmol/L Normal 3.3-5.3 [facility] Comment on above: Performed By: #### H STRP #### [facility] [address] [place] [address], Sodium [Moles/Vol] 138 mmol/L Normal 135-148 [facility] Comment on above: Performed By: #### H STRP #### [facility] [address] [place] [address], Urea nitrogen [Mass/Vol] 5 mg/dL Low 8-22 [facility] Comment on above: Performed By: #### H STRP #### [facility] [address] [place] [address], COMPLETE BLOOD COUNTon 05-24 Erythrocyte distribution width (RBC) [Ratio] 15.1 % High 11.5-14.5 [facility] Comment on above: Performed By: #### C BC ####S PATHOLOGY [id number] [place], [place], Hematocrit (Bld) [Volume fraction] 35.5 % Low 36.0-46.0 [facility] Comment on above: Performed By: #### C BC ####S PATHOLOGY [id number] [place], [place], Hemoglobin (Bld) [Mass/Vol] 11.8 g/dL Low 12.0-15.0 [facility] Comment on above: Performed By: #### C BC ####S PATHOLOGY [id number] [place], [place], MCH (RBC) [Entitic mass] 27.2 pg Normal 26.0-34.0 [facility] Comment on above: Performed By: #### C BC ####S PATHOLOGY [id number] [place], [place], MCHC (RBC) [Mass/Vol] 33.2 g/dL Normal 32.0-35.9 [facility] Comment on above: Performed By: #### C BC ####[facility] PATHOLOGY [id number] [place], [place], MCV (RBC) [Entitic vol] 82 fL Normal 80-100 [facility] Comment on above: Performed By: #### C BC ####S PATHOLOGY [id number] [place], [place], Platelet mean volume (Bld) [Entitic vol] 7.6 fL Normal 7.5-11.2 [facility] Comment on above: Performed By: #### C BC ####[facility] PATHOLOGY [id number] [place], [place], Platelets (Bld) [#/Vol] 375 10*3/uL Normal 150-400 [facility] Comment on above: Performed By: #### C BC ####[facility] PATHOLOGY [id number] [place], [place], RBC (Bld) [#/Vol] 4.32 10*6/uL Normal 4.00-5.20 [facility] Comment on above: Performed By: #### C BC ####S PATHOLOGY [id number] [place], [place], WBC (Bld) [#/Vol] 9.0 10*3/uL Normal 4.5-11.5 [facility] Comment on above: Performed By: #### C BC ####S PATHOLOGY [id number] [place], [place], Care Plan Noteon 05-24-2022 Webbing Weaver Authentication Interface Message Text Problem: Routine Care: [...] demand and imbalance Outcome: Progressing Normal [facility] GLUCOSE, FINGERSTICK-IN OFFI CEon 05-24-2022 Glucose [Mass/Vol] 94 mg/dL Normal 80-116 [facility] Comment on above: Performed By: #### 8 2948 ####NURSING GLUCOSE [id number] [place], [address] Glucose [Mass/Vol] 76 mg/dL Low 80-116 [facility] Comment on above: Performed By: #### H STRP #### [facility] [address], [place], Glucose [Mass/Vol] 84 mg/dL Normal 80-116 [facility] Comment on above: Performed By: #### 8 2948 #### NURSING GLUCOSE PROGRAM [address] [place], [address] Glucose [Mass/Vol] 95 mg/dL Normal 80-116 [facility] Comment on above: Performed By: #### C H8, HEPATIC #### [facility] [address], Glucose [Mass/Vol] 93 mg/dL Normal 80-116 [facility] Comment on above: Performed By: #### C H8, HEPATIC #### [facility] [address], [place], Glucose [Mass/Vol] 97 mg/dL Normal 80-116 [facility] Comment on above: Performed By: #### H STRP #### [facility] [address], [place], MAGNESIUMon 05-24-2022 Magnesium [Mass/Vol] 1.9 mg/dL Normal 1.6-2.8 [facility] Comment on above: Performed By: #### H STRP #### [facility] [address], [place], Progress Noteson 05-24-2022 Webbing Weaver Authentication Interface Message Text [facility] DIVISION OF ACUTE CARE SURGERY ---- GENERAL INFORMATION --- EMERGENCY GENERAL SURGERY NOTE Patient Name: Gerry Victoria Admission Date: 05/16/2022 Patient seen and examined on 05/24/2022 -- INTERVAL HISTORY/EVENTS Background Narrative: Gerry Victoria is a 66 year old female with PMH of hypertension, RLS, GERD, and h/o paroxysmal SVT who presented to [facility] with epigastric pain with nausea and vomiting. Patient describes onset of pain on prior day that has increased since then. Shortly after onset of pain, patient experienced nausea and persistent vomiting, now unable to tolerate PO intake. Denies fevers, chills. She presented to [facility] where EKG demonstrated 'hyperacute T waves' in multiple leads without evidence of STEMI. Troponin originally 139, then 381 on repeat. CTA was performed and did not reveal dissection or PE. CT did demonstrate acute inflammation of the gallbladder with a stone at the neck. A central line was placed for resuscitation purposes and the patient was transferred to [facility] for further evaluation. Prior to transfer, lab work without leukocytosis (10.7) and LFTs/Lipase without abnormality. ACS consulted upon arrival to [facility] for cholecystitis. She was admitted to the SDU for telemetry under EGS but transferred to [facility] on 05/20/22 Hospital Course/Procedures: 05/16/2022: Transferred from [facility] ED with cholecystitis, up-trending troponin, and unclear EKG findings. Up-trending leukocytosis, down-trending troponin by PM. Cardiology following. Zosyn started. 05/17/2022: rCT with worsening gallbladder inflammation /o free air or rupture. Percutaneous cholecystotomy tube placement with IR. 05/19/2022: Bilious emesis, NGT placed 05/20/2022: Transferred to [facility] 05/21/2022:To stop zosyn today day 06/2805/22/2022: YANN, ongoing bilious NGT output 05/23/2022: [facility] with mild non-obstructive diffuse coronary artery disease. NGT placed to gravity. Events in last 24 hours: NAEOn. [facility] completed yesterday with mild non-obstructive diffuse coronary [...] Hct MCV RDW Plt PT aPTT INR 05/24/22 0036 9.0 4.32 11.8 35.5 82 15.1 375 Basic Metabolic Panel Na K Cl CO2 Gap Glu BUN Cr Ca Mg PO4 05/24/22 0036 1.9 05/24/22 0036 138 3.5 100 24 18 88 5 0.66 8.6 Arterial Blood Gases None IMAGING RESULTS - (PERSONALLY REVIEWED) No new imaging over last 24 hours ----- DIAGNOSIS AND PLAN -------- Diagnoses: Acute Cholecystitis Acute abdominal pain Type II MA Atypical takatsubo PMHx: GERD, HTN, HLD, spinal [...] course of IV Zosyn 05/16/22 - 05/21/2022. C completed 05/23 showing no obstructive disease. Plan 1. Neurologic - Tylenol q4 PRN, oxycodone q4 PRN f (more content not included)... Normal [facility] Webbing Weaver Authentication Interface Message Text Accuchecks not uploading into V[employer]- are as follows for night time nanny 05/23 1900- 0730: 2000- glucose 95 0000- glucose 97 0400- glucose 93 Normal [facility] BASIC METABOLIC PANELon 04-28 Anion gap [Moles/Vol] 12 mmol/L Normal 10-20 [facility] Comment on above: Performed By: #### H STRP #### S PATHOLOGY LABORATORY [address] [place] [address], Calcium [Mass/Vol] 8.4 mg/dL Normal 8.4-10.4 [facility] Comment on above: Performed By: #### H STRP #### [facility] [address] [place] [address], Chloride [Moles/Vol] 100 mmol/L Normal 97-111 [facility] Comment on above: Performed By: #### H STRP #### [facility] [address] [place] [address], CO2 [Moles/Vol] 31 mmol/L High 21-30 [facility] Comment on above: Performed By: #### H STRP #### [facility] [address] [place] [address], Creatinine [Mass/Vol] 0.65 mg/dL Normal 0.50-1.10 [facility] Comment on above: Performed By: #### H STRP #### [facility] [address] [place] [address], ESTIMATED GFR (CKD-EPI) 96 mL/min/1.73sqm Normal >=60 [facility] Comment on above: Result Comment: 2020 CKD EPI Equation using Creatinine without Race Comment: Estimated glomerular filtration rate (eGFR) is calculated without a race coefficient. Values should be interpreted in the context of the patient's full clinical presentation. Reference: 1. Leonardo Corrigan, Makayla M, Ilya FLYNN, et al.. A Unifying Approach for GFR Estimation: Recommendations of the NKF-ASN Task Force on Reassessing the Inclusion of Race in Diagnosing Kidney Disease. [place] Journal of Kidney Diseases 2021;79(2):268-88.e1. 2. N Engl J Med 2020 Vol. 385 Issue 19 Pages 6333-0213 Performed By: #### H STRP #### [facility] [address], [place], Glucose [Mass/Vol] 92 mg/dL Normal 80-116 [facility] Comment on above: Performed By: #### H STRP #### [facility] [address], [place], Potassium [Moles/Vol] 3.5 mmol/L Normal 3.3-5.3 [facility] Comment on above: Performed By: #### H STRP #### [facility] [address], [place], Sodium [Moles/Vol] 139 mmol/L Normal 135-148 [facility] Comment on above: Performed By: #### H STRP #### [facility] [address], [place], Urea nitrogen [Mass/Vol] 4 mg/dL Low 8-22 [facility] Comment on above: Performed By: #### H STRP #### [facility] [address], COMPLETE BLOOD COUNTon 05-23 Erythrocyte distribution width (RBC) [Ratio] 14.9 % High 11.5-14.5 [facility] Comment on above: Performed By: #### C BC ####[facility] [id number] [place], [place], Hematocrit (Bld) [Volume fraction] 33.2 % Low 36.0-46.0 [facility] Comment on above: Performed By: #### C BC ####[facility] PATHOLOGY [id number] [place], [place], Hemoglobin (Bld) [Mass/Vol] 11.1 g/dL Low 12.0-15.0 [facility] Comment on above: Performed By: #### C BC ####[facility] PATHOLOGY [id number] [place], [place], MCH (RBC) [Entitic mass] 27.4 pg Normal 26.0-34.0 [facility] Comment on above: Performed By: #### C BC ####[facility] PATHOLOGY [id number] [place], MCHC (RBC) [Mass/Vol] 33.4 g/dL Normal 32.0-35.9 [facility] Comment on above: Performed By: #### C BC ####[facility] PATHOLOGY [id number] [place], MCV (RBC) [Entitic vol] 82 fL Normal 80-100 [facility] Comment on above: Performed By: #### C BC ####[facility] PATHOLOGY [id number] [place], [place], Platelet mean volume (Bld) [Entitic vol] 7.4 fL Low 7.5-11.2 [facility] Comment on above: Performed By: #### C BC ####[facility] PATHOLOGY [id number] [place], [place], Platelets (Bld) [#/Vol] 313 10*3/uL Normal 150-400 [facility] Comment on above: Performed By: #### C BC ####[facility] PATHOLOGY [id number] [place], [place], RBC (Bld) [#/Vol] 4.04 10*6/uL Normal 4.00-5.20 [facility] Comment on above: Performed By: #### C BC ####[facility] PATHOLOGY [id number] [place], [place], WBC (Bld) [#/Vol] 7.1 10*3/uL Normal 4.5-11.5 [facility] Comment on above: Performed By: #### C ####[facility] PATH[facility] [id number] [place], [address] Care Plan Noteon 05-23-2022 Webbing Weaver Authentication Interface Message Text Problem: Routine Care: [...] demand and imbalance Outcome: Progressing Normal [facility] Consultson 05-23-2022 Webbing Weaver Authentication Interface Message Text PHYSICAL THERAPY Attempt at Tx Session this PM is unsuccessful as Patient is off floor in EP for Coronary angiograms w/ poss intervention Will follow up Tawny Peñaloza, PT, MPT (P) [phone] Normal [facility] Webbing Weaver Authentication Interface Message Text Initial Adult Inpatient [...] BUN Cr Ca Mg PO4 05/23/22135 1.9 02/27/23 0136 139 3.5 100 31 12 92 4 0.65 8.4 05/22/22 0032 2.0 05/22/22 003 138 3.6 98 31 13 91 5 0.76 8.7 05/21/22 0124 1.9 05/21/22 0124 138 3.2 100 29 12 [...] none Hair/Nails/Skin: intact Eyes/Nose/Mouth: NGT Estimated needs: [id number] kcal/d 25-30 kcal/kg 80-105 g pro/d 1-1.3 g pro/kg Assessment: 66 year old female with PMH of hypertension, RLS, GERD, and h/o paroxysmal SVT who presented to [facility] with epigastric pain with nausea and vomiting. Patient describes onset of pain on prior day that has increased since then. Shortly after onset of pain, patient experienced nausea and persistent vomiting, now unable to tolerate PO intake. Denies fevers, chills. She presented to [facility] where EKG demonstrated 'hyperacute T waves' in multiple leads without evidence of STEMI. Troponin originally 139, then 381 on repeat. CTA was performed and did not reveal dissection or PE. CT did demonstrate acute inflammation of the gallbladder with a stone at the neck. A central line was placed for resuscitation purposes and the patient was transferred to [facility] for further evaluation. Prior to transfer, lab work without leukocytosis (10.7) and LFTs/Lipase without abnormality. ACS consulted upon arrival to [facility] for cholecystitis. She was admitted to the SDU for telemetry under EGS but transferred to [facility] on 05/20/22 Hospital Course/Procedures: 05/16/2022: Transferred from [facility] ED with cholecystitis, up-trending troponin, and unclear EKG findings. Up-trending leukocytosis, down-trending troponin by PM. Cardiology following. Zosyn started. 05/17/2022: rCT with worsening gallbladder inflammation /o free air or rupture. Percutaneous cholecystotomy tube placement with IR. 05/19/2022: Bilious emesis, NGT placed 05/20/2022: Transferred to [facility] 05/21/2022:To stop zosyn today day 4/ Pt currently NPO. Last BM 05/21, last [...] Will continue to follow Luis Roberts RD, LD Personal Pager [phone] [employer] Pager: [phone] Normal [facility] Webbing Weaver Authentication Interface Message Text Diet Track Template Maker Nutrition Screening Reason for visit: 7 to [...] Will continue to follow, May Sanchez, Diet Track Template Maker Pager [phone] Normal [facility] GLUCOSE, FINGERSTICK-IN OFFI CEon 05-23-2022 Glucose [Mass/Vol] 95 mg/dL Normal 80-116 [facility] Comment on above: Performed By: #### H STRP #### S PATHOLOGY LABORATORY [address] [place] [address], Glucose [Mass/Vol] 102 mg/dL Normal 80-116 [facility] Comment on above: Performed By: #### C H8, HEPATIC #### [facility] [address] [place] [address], [phone] Glucose [Mass/Vol] 105 mg/dL Normal 80-116 [facility] Comment on above: Performed By: #### 8 2948 #### NURSING GLUCOSE PROGRAM [address] [place] [address], [id number] Glucose [Mass/Vol] 89 mg/dL Normal 80-116 [facility] Comment on above: Performed By: #### H STRP #### S PATHOLOGY LABORATORY [address] [place] [address], Glucose [Mass/Vol] 92 mg/dL Normal 80-116 [facility] Comment on above: Performed By: #### 8 2948 #### NURSING GLUCOSE PROGRAM [address] [place] [address], [id number] MAGNESIUMon 05-23-2022 Magnesium [Mass/Vol] 1.9 mg/dL Normal 1.6-2.8 [facility] Comment on above: Performed By: #### H STRP #### S PATHOLOGY LABORATORY [address] [place] [address], Procedureson 05-23-2022 Webbing Weaver Authentication Interface Message Text Invasive Cardiology Report Demographics Patient name RYLIE GARRETT Height 155cm Patient # [id number] Weight 79.8kg BSA 1.79m2 Date of 1955 [...] KIT CARDIAC CATH PACK CA/3, Room Charge PLATFORM MATERIAL HANDLING SUPERVISOR, Dagoberto InQwire .035 x 150cm 3mmJ, Glidesheath Slender 6Fr., 6F [place] Radial 4.0 110cm, Omnipaque 350 100cc and TR Band. Contrast material: 50 ml Omnipaque 350. Fluoroscopy time: PCI: 2:06 minutes. Total: 2:06 minutes. IABP: No IABP Procedure Description In a sterile fashion, after infiltration with 2% lidocaine, a 6 Ugandan arterial sheath was placed through a right radial artery puncture. A 6 [place]an [place] 4.0 radial catheter was inserted and passed retrograde into the ascending aorta and left ventricle where pressures were recorded. After pressure measurements were recorded, the left and right coronary arteries were selectively opacified and Coronary angiograms were performed in multiple projections using a 6 [place] 4.0 radial catheter. At the end of the procedure, right radial arterial sheath was removed and hemostasis was obtained using a TR band. Moderate sedation provided by the attending physician performing the procedure. The moderate sedation intraservice time was 12 minutes. Normal [facility] Progress Noteson 05-23-2022 Webbing Weaver Authentication Interface Message Text [facility] showed no obstructive coronary artery disease. Medical management with aspirin 81 mg daily, losartan 25 mg daily and metoprolol XL 12.5 mg with dose adjustment as tolerated. She will need outpatient follow up with cardiology Cards team signing off. Please feel free to contact in case of any qs. Normal [facility] [employer] Interface Message Text PT recs anticipate pt to be appropriate for home-going. Pt reportedly has sister who can provide PRN assistance. Medical team to please notify SW if any SW or DC concerns arise. Franky CHOWDHURYA,PUNCH PRESS OPERATOR Normal The [employer] Interface Message Text [employer] DIVISION OF ACUTE CARE SURGERY ---- GENERAL INFORMATION --- EMERGENCY GENERAL SURGERY NOTE Patient Name: Gerry Victoria Admission Date: 05/16/2022 Patient seen and examined on 05/23/2022 -- INTERVAL HISTORY/EVENTS Background Narrative: Gerry Victoria is a 66 year old female with PMH of hypertension, RLS, GERD, and h/o paroxysmal SVT who presented [facility] with epigastric pain with nausea and vomiting. Patient describes onset of pain on prior day that has increased since then. Shortly after onset of pain, patient experienced nausea and persistent vomiting, now unable to tolerate PO intake. Denies fevers, chills. She presented to [facility] where EKG demonstrated 'hyperacute T waves' in multiple leads without evidence of STEMI. Troponin originally 139, then 381 on repeat. CTA was performed and did not reveal dissection or PE. CT did demonstrate acute inflammation of the gallbladder with a stone at the neck. A central line was placed for resuscitation purposes and the patient was transferred to [facility] for further evaluation. Prior to transfer, lab work without leukocytosis (10.7) and LFTs/Lipase without abnormality. ACS consulted upon arrival to [facility] for cholecystitis. She was admitted to the SDU for telemetry under EGS but transferred to [facility] on 05/20/22 Hospital Course/Procedures: 05/16/2022: Transferred from [facility] ED with cholecystitis, up-trending troponin, and unclear EKG findings. Up-trending leukocytosis, down-trending troponin by PM. Cardiology following. Zosyn started. 05/17/2022: rCT with worsening gallbladder inflammation /o free air or rupture. Percutaneous cholecystotomy tube placement with IR. 05/19/2022: Bilious emesis, NGT placed 05/20/2022: Transferred to [facility] 05/21/2022:To stop zosyn today day 4/4 Events in last 24 hours: No acute events overnight, patient reports feeling well this am, denies nausea, vomiting, chest pain or SOB. Patient continue to have NG tube in place with bilious output. Patient is awaiting cardiac cath today PHYSICAL EXAM Vitals: Vital sign ranges over [...] Seen resting in bed in SICU in [facility]- I J line in place -Neurologic - [...] dependent pelvis, increased from the prior study. ----- DIAGNOSIS AND PLAN -------- Diagnoses: Acute Cholecystitis Acute abdominal pain Type II MA Atypical takatsubo PMHx: GERD, HTN, HLD, spinal [...] appropr (more content not included)... Normal [facility] TYPE AND SCREENon 05-23-2022 ABO and Rh group Nom (Bld) Blood group A Rh(D) positive Normal [facility] Comment on above: Performed By: #### H STRP #### [facility] [address], [place], ABSC INT Negative Normal [facility] Comment on above: Performed By: #### H STRP #### [facility] [address], [place], BASIC METABOLIC PANELon 04-28 Anion gap [Moles/Vol] 13 mmol/L Normal 01-13 [facility] Comment on above: Performed By: #### 8 [id number] #### NURSING GLUCOSE PROGRAM [address] [place], [address] Calcium [Mass/Vol] 8.7 mg/dL Normal 8.4-10.4 [facility] Comment on above: Performed By: #### 8 2948 #### NURSING GLUCOSE PROGRAM [address] [place], [address] Chloride [Moles/Vol] 98 mmol/L Normal 97-111 [facility] Comment on above: Performed By: #### 8 2948 #### NURSING GLUCOSE PROGRAM [address] [place], [address] CO2 [Moles/Vol] 31 mmol/L High 21-30 [facility] Comment on above: Performed By: #### 8 2948 #### NURSING GLUCOSE PROGRAM [address] [place], [address] Creatinine [Mass/Vol] 0.76 mg/dL Normal 0.50-1.10 [facility] Comment on above: Performed By: #### 8 2948 #### NURSING GLUCOSE PROGRAM [address] [place], [address] ESTIMATED GFR (CKD-EPI) 85 mL/min/1.73sqm Normal >=60 [facility] Comment on above: Result Comment: 2020 [...] Inclusion of Race in Diagnosing Kidney Disease. Ukrainian Journal of Kidney Diseases 202;79(2):268-88.e1. 2. N Engl J Med 1 Vol. 385 Issue 19 Pages 5689-7725 Performed By: #### 8 2948 #### NURSING GLUCOSE PROGRAM [address] [place], [address] Glucose [Mass/Vol] 91 mg/dL Normal 80-116 [facility] Comment on above: Performed By: #### 8 2948 #### NURSING GLUCOSE PROGRAM [address] [place], [address] Potassium [Moles/Vol] 3.6 mmol/L Normal 3.3-5.3 [facility] Comment on above: Performed By: #### 8 2948 #### NURSING GLUCOSE PROGRAM [address] [place], [address] Sodium [Moles/Vol] 138 mmol/L Normal 135-148 [facility] Comment on above: Performed By: #### 8 2948 #### NURSING GLUCOSE PROGRAM [address] [place], [address] Urea nitrogen [Mass/Vol] 5 mg/dL Low 8-22 [facility] Comment on above: Performed By: #### 8 2948 #### NURSING GLUCOSE PROGRAM [address] [place], [address] COMPLETE BLOOD COUNTon 05-22 Erythrocyte distribution width (RBC) [Ratio] 15.1 % High 11.5-14.5 [facility] Comment on above: Performed By: #### C BC ####S PATHOLOGY [id number] [place], [place], Hematocrit (Bld) [Volume fraction] 34.3 % Low 36.0-46.0 [facility] Comment on above: Performed By: #### C BC ####S PATHOLOGY [id number] [place], [place], Hemoglobin (Bld) [Mass/Vol] 11.4 g/dL Low 12.0-15.0 [facility] Comment on above: Performed By: #### C BC ####[facility] [id number] [place], [place], MCH (RBC) [Entitic mass] 27.4 pg Normal 26.0-34.0 [facility] Comment on above: Performed By: #### C BC ####S PATHOLOGY [id number] [place], [place], MCHC (RBC) [Mass/Vol] 33.4 g/dL Normal 32.0-35.9 [facility] Comment on above: Performed By: #### C BC ####S PATHOLOGY [id number] [place], [place], MCV (RBC) [Entitic vol] 82 fL Normal 80-100 [facility] Comment on above: Performed By: #### C BC ####[facility] PATHOLOGY [id number] [place], [place], Platelet mean volume (Bld) [Entitic vol] 7.6 fL Normal 7.5-11.2 [facility] Comment on above: Performed By: #### C BC ####[facility] PATHOLOGY [id number] [place], [place], Platelets (Bld) [#/Vol] 322 10*3/uL Normal 150-400 [facility] Comment on above: Performed By: #### C BC ####[facility] PATHOLOGY [id number] [place], [place], RBC (Bld) [#/Vol] 4.17 10*6/uL Normal 4.00-5.20 [facility] Comment on above: Performed By: #### C BC ####[facility] PATHOLOGY [id number] [place], [place], WBC (Bld) [#/Vol] 7.0 10*3/uL Normal 4.5-11.5 [facility] Comment on above: Performed By: #### C BC ####[facility] PATHOLOGY [id number] [place], [place], Care Plan Noteon 05-22-2022 Webbing Weaver Authentication Interface Message Text Problem: Routine Care: [...] demand and imbalance Outcome: Progressing Normal [facility] GLUCOSE, FINGERSTICK-IN OFFI CEon 05-22-2022 Glucose [Mass/Vol] 78 mg/dL Low 80-116 [facility] Comment on above: Performed By: #### 8 2948 #### NURSING GLUCOSE PROGRAM [address] [place] [address], [address] Glucose [Mass/Vol] 99 mg/dL Normal 80-116 [facility] Comment on above: Performed By: #### 8 2948 #### NURSING GLUCOSE PROGRAM [address] [place] [address], [address] Glucose [Mass/Vol] 134 mg/dL High 80-116 [facility] Comment on above: Performed By: #### 8 2948 #### NURSING GLUCOSE PROGRAM [address] [place] [address], [address] Glucose [Mass/Vol] 111 mg/dL Normal 80-116 [facility] Comment on above: Performed By: #### Reid Grullon CH8 #### [facility] [address] [place] [address], Glucose [Mass/Vol] 103 mg/dL Normal 80-116 [facility] Comment on above: Performed By: #### C H8, HEPATIC #### [facility] [address] [place] [address], Glucose [Mass/Vol] 112 mg/dL Normal 80-116 [facility] Comment on above: Performed By: #### C H8, HEPATIC #### [facility] [address] [place] [address], MAGNESIUMon 05-22-2022 Magnesium [Mass/Vol] 2.0 mg/dL Normal 1.6-2.8 [facility] Comment on above: Performed By: #### 8 2948 #### NURSING GLUCOSE PROGRAM [address] [place] [address], [address] Progress Noteson 05-22-2022 Webbing Weaver Authentication Interface Message Text [facility] DIVISION OF ACUTE CARE SURGERY ---- GENERAL INFORMATION --- EMERGENCY GENERAL SURGERY NOTE Patient Name: Gerry Victoria Admission Date: 05/16/2022 Patient seen and examined on 05/22/2022 -- INTERVAL HISTORY/EVENTS Background Narrative: Gerry Victoria is a 66 year old female with PMH of hypertension, RLS, GERD, and h/o paroxysmal SVT who presented to [facility] with epigastric pain with nausea and vomiting. Patient describes onset of pain on prior day that has increased since then. Shortly after onset of pain, patient experienced nausea and persistent vomiting, now unable to tolerate PO intake. Denies fevers, chills. She presented to [facility] where EKG demonstrated 'hyperacute T waves' in multiple leads without evidence of STEMI. Troponin originally 139, then 381 on repeat. CTA was performed and did not reveal dissection or PE. CT did demonstrate acute inflammation of the gallbladder with a stone at the neck. A central line was placed for resuscitation purposes and the patient was transferred to [facility] for further evaluation. Prior to transfer, lab work without leukocytosis (10.7) and LFTs/Lipase without abnormality. ACS consulted upon arrival to [facility] for cholecystitis. She was admitted to the SDU for telemetry under EGS but transferred to [facility] on 05/20/22 Hospital Course/Procedures: 05/16/2022: Transferred from [facility] ED with cholecystitis, up-trending troponin, and unclear EKG findings. Up-trending leukocytosis, down-trending troponin by PM. Cardiology following. Zosyn started. 05/17/2022: rCT with worsening gallbladder inflammation /o free air or rupture. Percutaneous cholecystotomy tube placement with IR. 05/19/2022: Bilious emesis, NGT placed 05/20/2022: Transferred to [facility] 05/21/2022:To stop zosyn today 06/28 Events in last 24 hours: -NAEO, [...] Seen resting in bed in SICU in [facility]- I J line in place -Neurologic - [...] Hct MCV RDW Plt PT aPTT INR 05/22/2231 7.0 4.17 11.4 34.3 82 15.1 322 Basic Metabolic Panel Na K Cl CO2 Gap Glu BUN Cr Ca Mg PO4 05/22/2231 2.0 05/22/2231 138 3.6 98 31 13 91 5 [...] dependent pelvis, increased from the prior study. ----- DIAGNOSIS AND PLAN -------- Diagnoses: Acute Cholecystitis Acute abdominal pain Type II MA Atypical takatsubo PMHx: GERD, HTN, HLD, spinal [...] P (more content not included)... Normal [facility] Webbing Weaver Authentication Interface Message Text 05/22/2022 4:04 PM Referring Attending: Dr Jocelyne Victoria [id number] Planned Procedure: Coronary angiograms w/ poss intervention Procedure Indication: Suspected CAD CV Risk Factors: Hypertension: Yes History of Present Illness: 66 year old female with history of hypertension, recent diagnosis of type II MA, atypical takotsubo, acute cholecystitis s/p percutaneous cholecystostomy drain placement is referred for [facility] for CAD risk stratification and preparation for [...] Cl CO2 Gap Glu BUN Cr Ca 05/22/2231 138 3.6 98 31 13 91 5 [...] effusion. Hemodyn (more content not included)... Normal [facility] BASIC METABOLIC PANELon 04-28 Anion gap [Moles/Vol] 12 mmol/L Normal 10-20 [facility] Comment on above: Performed By: #### 8 2948 #### NURSING GLUCOSE PROGRAM [address] [place] [address], [address] Calcium [Mass/Vol] 8.1 mg/dL Low 8.4-10.4 [facility] Comment on above: Performed By: #### 8 2948 #### NURSING GLUCOSE PROGRAM [address] [place] [address], [address] Chloride [Moles/Vol] 100 mmol/L Normal 97-111 [facility] Comment on above: Performed By: #### 8 2948 #### NURSING GLUCOSE PROGRAM [address] [place], [address] CO2 [Moles/Vol] 29 mmol/L Normal 21-30 [facility] Comment on above: Performed By: #### 8 2948 #### NURSING GLUCOSE PROGRAM [address] [place], [address] Creatinine [Mass/Vol] 0.65 mg/dL Normal 0.50-1.10 [facility] Comment on above: Performed By: #### 8 2948 #### NURSING GLUCOSE PROGRAM [address] [place], [address] ESTIMATED GFR (CKD-EPI) 96 mL/min/1.73sqm Normal >=60 [facility] Comment on above: Result Comment: 2020 [...] Inclusion of Race in Diagnosing Kidney Disease. Ukrainian Journal of Kidney Diseases 202;79(2):268-88.e1. 2. N Engl J Med 2020 Vol. 385 Issue 19 Pages 5152-6976 Performed By: #### 8 2948 #### NURSING GLUCOSE PROGRAM [address] [place], [address] Glucose [Mass/Vol] 107 mg/dL Normal 80-116 [facility] Comment on above: Performed By: #### 8 2948 #### NURSING GLUCOSE PROGRAM [address] [place], [address] Potassium [Moles/Vol] 3.2 mmol/L Low 3.3-5.3 [facility] Comment on above: Performed By: #### 8 2948 #### NURSING GLUCOSE PROGRAM [address] [place], [address] Sodium [Moles/Vol] 138 mmol/L Normal 135-148 [facility] Comment on above: Performed By: #### 8 2948 #### NURSING GLUCOSE PROGRAM [address] [place], [address] Urea nitrogen [Mass/Vol] 4 mg/dL Low 8-22 [facility] Comment on above: Performed By: #### 8 2948 #### NURSING GLUCOSE PROGRAM [address] [place], [address] COMPLETE BLOOD COUNTon 05-21 Erythrocyte distribution width (RBC) [Ratio] 15.2 % High 11.5-14.5 [facility] Comment on above: Performed By: #### 8 2948 #### NURSING GLUCOSE PROGRAM [address] [place], [address] Hematocrit (Bld) [Volume fraction] 30.1 % Low 36.0-46.0 [facility] Comment on above: Performed By: #### 8 2948 #### NURSING GLUCOSE PROGRAM [address] [place], [address] Hemoglobin (Bld) [Mass/Vol] 10.1 g/dL Low 12.0-15.0 [facility] Comment on above: Performed By: #### 8 2948 #### NURSING GLUCOSE PROGRAM [address] [place], [address] MCH (RBC) [Entitic mass] 27.5 pg Normal 26.0-34.0 [facility] Comment on above: Performed By: #### 8 2948 #### NURSING GLUCOSE PROGRAM [address] [place], [address] MCHC (RBC) [Mass/Vol] 33.4 g/dL Normal 32.0-35.9 [facility] Comment on above: Performed By: #### 8 2948 #### NURSING GLUCOSE PROGRAM [address] [place], [address] MCV (RBC) [Entitic vol] 82 fL Normal 80-100 [facility] Comment on above: Performed By: #### 8 2948 #### NURSING GLUCOSE PROGRAM [address] [place], [address] Platelet mean volume (Bld) [Entitic vol] 7.5 fL Normal 7.5-11.2 [facility] Comment on above: Performed By: #### 8 2948 #### NURSING GLUCOSE PROGRAM [address] [place] [address], [address] Platelets (Bld) [#/Vol] 241 10*3/uL Normal 150-400 [facility] Comment on above: Performed By: #### 8 2948 #### NURSING GLUCOSE PROGRAM [address] [place], [address] RBC (Bld) [#/Vol] 3.67 10*6/uL Low 4.00-5.20 [facility] Comment on above: Performed By: #### 8 2948 #### NURSING GLUCOSE PROGRAM [address] [place], [address] WBC (Bld) [#/Vol] 5.0 10*3/uL Normal 4.5-11.5 [facility] Comment on above: Performed By: #### 8 2948 #### NURSING GLUCOSE PROGRAM [address] [place], [address] Care Plan Noteon 05-21-2022 Webbing Weaver Authentication Interface Message Text Problem: Routine Care: [...] demand and imbalance Outcome: Progressing Normal [facility] Consultson 05-21-2022 Webbing Weaver Authentication Interface Message Text Physical Therapy Attempted to see pt for treatment at 9:24, however, before this pt finished introducing herself pt states I just got back to sleep . Pt keeps her eyes closed and requests more time to sleep. Will continue to follow pt per POC. Geovanna Villagomez, PT, DPT Normal [facility] GLUCOSE, FINGERSTICK-IN OFFI CEon 05-21-2022 Glucose [Mass/Vol] 111 mg/dL Normal 80-116 [facility] Comment on above: Performed By: #### C H8, HEPATIC #### [facility] [address] [place], [address] Glucose [Mass/Vol] 101 mg/dL Normal 80-116 [facility] Comment on above: Performed By: #### H STRP #### [facility] [address] [place], [place], Glucose [Mass/Vol] 90 mg/dL Normal 80-116 [facility] Comment on above: Performed By: #### Reid Grullon CH8 #### [facility] [address] [place], [place], Glucose [Mass/Vol] 77 mg/dL Low 80-116 [facility] Comment on above: Performed By: #### 8 2948 #### NURSING GLUCOSE PROGRAM [address], [place], Glucose [Mass/Vol] 91 mg/dL Normal 80-116 [facility] Comment on above: Performed By: #### T S #### S PATHOLOGY LABORATORY [address] [place], [place], MAGNESIUMon 05-21-2022 Magnesium [Mass/Vol] 1.9 mg/dL Normal 1.6-2.8 [facility] Comment on above: Performed By: #### 8 2948 #### NURSING GLUCOSE PROGRAM [address] [place], [address] Progress Noteson 05-21-2022 Webbing Weaver Authentication Interface Message Text [facility] DIVISION OF ACUTE CARE SURGERY ---- GENERAL INFORMATION --- EMERGENCY GENERAL SURGERY NOTE Patient Name: Gerry Victoria Admission Date: 05/16/2022 Patient seen and examined on 05/21/2022 -- INTERVAL HISTORY/EVENTS Background Narrative: Gerry Victoria is a 66 year old female with PMH of hypertension, RLS, GERD, and h/o paroxysmal SVT who presented [facility] with epigastric pain with nausea and vomiting. Patient describes onset of pain on prior day that has increased since then. Shortly after onset of pain, patient experienced nausea and persistent vomiting, now unable to tolerate PO intake. Denies fevers, chills. She presented to [facility] where EKG demonstrated 'hyperacute T waves' in multiple leads without evidence of STEMI. Troponin originally 139, then 381 on repeat. CTA was performed and did not reveal dissection or PE. CT did demonstrate acute inflammation of the gallbladder with a stone at the neck. A central line was placed for resuscitation purposes and the patient was transferred to [facility] for further evaluation. Prior to transfer, lab work without leukocytosis (10.7) and LFTs/Lipase without abnormality. ACS consulted upon arrival to [facility] for cholecystitis. She was admitted to the SDU for telemetry under EGS but transferred to [facility] on 05/20/22 Hospital Course/Procedures: 05/16/2022: Transferred from [facility] ED with cholecystitis, up-trending troponin, and unclear EKG findings. Up-trending leukocytosis, down-trending troponin by PM. Cardiology following. Zosyn started. 05/17/2022: rCT with worsening gallbladder inflammation /o free air or rupture. Percutaneous cholecystotomy tube placement with IR. 05/19/2022: Bilious emesis, NGT placed 05/20/2022: Transferred to [facility] 05/21/2022:To stop zosyn today day 4/4 [...] Seen resting in bed in SICU in [facility]- I J line in place -Neurologic - [...] Ca Mg PO4 05/21/22 0124 1.9 05/21/22 0124 138 3.2 100 29 12 [...] dependent pelvis, increased from the prior study. ----- DIAGNOSIS AND PLAN -------- Diagnoses: Acute Cholecystitis Acute abdominal pain Type II MA Atypical takatsubo PMHx: GERD, HTN, HLD, spinal stenosis, paroxysmal SVT, overactive bladder, RLS, stasis dermatitis, PARTH, fibromyalgia, chronic fatigue syndrome Assessment: 66yo female with acute cholecystitis and associated pain. Admission complicated by initial up-trending troponin and abnormal EKG findings. Troponin now down-trending. Echo 05/16 with findings of LVEF 55% and possible atypical takatsubo for w (more content not included)... Normal [facility] ANTI FXA-LMW HEPARINon 05-20 ANTI FXA-LMW HEPARIN ASSAY 0.25 IU/mL Normal [facility] Comment on above: Order Comment: The r ecommended therapeutic range for treatment of thrombosis with Low Molecular Weight Heparin is 0.5 - 1.0 IU/mLThe recommended range for VTE prophylaxis with Low Molecular Weight Heparin is 0.2 - 0.4 IU/mL. Performed By: #### 8 2948 #### [facility] GLUCOSE PROGRAM [address] [place] [address], [address] BASIC METABOLIC PANELon 04-28 Anion gap [Moles/Vol] 11 mmol/L Normal 10-20 [facility] Comment on above: Performed By: #### Reid Grullon CH8 #### [facility] PATHOLOGY LABORATORY [address] [place] [address], Calcium [Mass/Vol] 7.6 mg/dL Low 8.4-10.4 [facility] Comment on above: Performed By: #### SAMMY Hutton #### S PATHOLOGY LABORATORY [address] [place] [address], Chloride [Moles/Vol] 100 mmol/L Normal 97-111 [facility] Comment on above: Performed By: #### SAMMY Hutton #### [facility] PATHOLOGY LABORATORY [address] [place] [address], CO2 [Moles/Vol] 30 mmol/L Normal 21-30 [facility] Comment on above: Performed By: #### Reid Grullon CH8 #### S PATHOLOGY LABORATORY [address] [place] [address], Creatinine [Mass/Vol] 0.71 mg/dL Normal 0.50-1.10 [facility] Comment on above: Performed By: #### Reid Grullon CH8 #### [facility] PATHOLOGY LABORATORY [address] [place] [address], ESTIMATED GFR (CKD-EPI) 93 mL/min/1.73sqm Normal >=60 [facility] Comment on above: Result Comment: 2020 [...] Inclusion of Race in Diagnosing Kidney Disease. Ukrainian Journal of Kidney Diseases 2021;79(2):268-88.e1. 2. N Engl J Med 1 Vol. 385 Issue 19 Pages 0476-3635 Performed By: #### Reid Grullon CH8 #### S PATHOLOGY LABORATORY [address] [place] [address], Glucose [Mass/Vol] 105 mg/dL Normal 80-116 [facility] Comment on above: Performed By: #### Reid Grullon CH8 #### S PATHOLOGY LABORATORY [address] [place] [address], Potassium [Moles/Vol] 3.8 mmol/L Normal 3.3-5.3 [facility] Comment on above: Performed By: ###Willi Grullon CH8 #### S PATHOLOGY LABORATORY [address] [place] [address], Sodium [Moles/Vol] 137 mmol/L Normal 135-148 [facility] Comment on above: Performed By: ###Willi Grullon CH8 #### S PATHOLOGY LABORATORY [address] [place] [address], Urea nitrogen [Mass/Vol] 5 mg/dL Low 8-22 [facility] Comment on above: Performed By: #### M Yadi CH8 #### [facility] PATHOLOGY LABORATORY [address] [place] [address], COMPLETE BLOOD COUNTon 05-20 Erythrocyte distribution width (RBC) [Ratio] 15.3 % High 11.5-14.5 [facility] Comment on above: Performed By: #### T S #### [facility] [address] [place] [address], Hematocrit (Bld) [Volume fraction] 27.9 % Low 36.0-46.0 [facility] Comment on above: Performed By: #### T S #### [facility] [address] [place] [address], Hemoglobin (Bld) [Mass/Vol] 9.2 g/dL Low 12.0-15.0 [facility] Comment on above: Performed By: #### T S #### [facility] [address] [place] [address], MCH (RBC) [Entitic mass] 27.5 pg Normal 26.0-34.0 [facility] Comment on above: Performed By: #### T S #### [facility] [address] [place] [address], MCHC (RBC) [Mass/Vol] 33.0 g/dL Normal 32.0-35.9 [facility] Comment on above: Performed By: #### T S #### [facility] [address] [place] [address], MCV (RBC) [Entitic vol] 83 fL Normal 80-100 [facility] Comment on above: Performed By: #### T S #### [facility] [address] [place] [address], Platelet mean volume (Bld) [Entitic vol] 7.5 fL Normal 7.5-11.2 [facility] Comment on above: Performed By: #### T S #### [facility] [address] [place] [address], Platelets (Bld) [#/Vol] 231 10*3/uL Normal 150-400 [facility] Comment on above: Performed By: #### T S #### S PATHOLOGY LABORATORY [address], [place], RBC (Bld) [#/Vol] 3.36 10*6/uL Low 4.00-5.20 [facility] Comment on above: Performed By: #### T S #### S PATHOLOGY LABORATORY [address], [place], WBC (Bld) [#/Vol] 4.7 10*3/uL Normal 4.5-11.5 [facility] Comment on above: Performed By: #### T S #### S PATHOLOGY LABORATORY [address], [place], GLUCOSE, FINGERSTICK-IN OFFI CEon 05-20-2022 Glucose [Mass/Vol] 95 mg/dL Normal 80-116 [facility] Comment on above: Performed By: #### 8 [id number] ####NURSING GLUCOSE [id number] [place], [address] Glucose [Mass/Vol] 117 mg/dL High 80-116 [facility] Comment on above: Performed By: #### 8 2948 #### NURSING GLUCOSE PROGRAM [address], [place], Glucose [Mass/Vol] 85 mg/dL Normal 80-116 [facility] Comment on above: Performed By: #### Reid Grullon 8 #### S PATHOLOGY LABORATORY [address], [place], Glucose [Mass/Vol] 100 mg/dL Normal 80-116 [facility] Comment on above: Performed By: #### T S #### S PATHOLOGY LABORATORY [address], [place], Glucose [Mass/Vol] 102 mg/dL Normal 80-116 [facility] Comment on above: Performed By: #### 8 2948 #### NURSING GLUCOSE PROGRAM [address] [place], [address] Glucose [Mass/Vol] 92 mg/dL Normal 80-116 [facility] Comment on above: Performed By: #### M Yadi, CH8 #### S PATHOLOGY LABORATORY [address], [place], MAGNESIUMon 05-20-2022 Magnesium [Mass/Vol] 1.8 mg/dL Normal 1.6-2.8 [facility] Comment on above: Performed By: #### M Yadi, CH8 #### S PATHOLOGY LABORATORY [address], [place], Progress Noteson 05-20-2022 [employer] Authentication Interface Message Text [facility] DIVISION OF ACUTE CARE SURGERY ---- GENERAL INFORMATION --- EMERGENCY GENERAL SURGERY NOTE Patient Name: Gerry Victoria Admission Date: 05/16/2022 Patient seen and examined on 05/20/2022 -- INTERVAL HISTORY/EVENTS Background Narrative: Gerry Victoria is a 66 year old female with PMH of hypertension, RLS, GERD, and h/o paroxysmal SVT who presented [facility] with epigastric pain with nausea and vomiting. Patient describes onset of pain on prior day that has increased since then. Shortly after onset of pain, patient experienced nausea and persistent vomiting, now unable to tolerate PO intake. Denies fevers, chills. She presented to [facility] where EKG demonstrated 'hyperacute T waves' in multiple leads without evidence of STEMI. Troponin originally 139, then 381 on repeat. CTA was performed and did not reveal dissection or PE. CT did demonstrate acute inflammation of the gallbladder with a stone at the neck. A central line was placed for resuscitation purposes and the patient was transferred to [facility] for further evaluation. Prior to transfer, lab work without leukocytosis (10.7) and LFTs/Lipase without abnormality. ACS consulted upon arrival to [facility] for cholecystitis. She was admitted to the SDU for telemetry under EGS. Hospital Course/Procedures: 05/16/2022: Transferred from [facility] ED with cholecystitis, up-trending troponin, and unclear EKG findings. Up-trending leukocytosis, down-trending troponin by PM. Cardiology following. Zosyn started. 05/17/2022: rCT with worsening gallbladder inflammation /o free air or rupture. Percutaneous cholecystotomy tube placement with IR. 05/19/2022: Bilious emesis, NGT placed 05/20/2022: Transferred to [facility] Events in last 24 hours: Transferred to [facility] Afebrile, HDS, no leukocytosis NGT in [...] Hct MCV RDW Plt PT aPTT INR 05/20/22 0217 4.7 3.36 9.2 27.9 83 [...] dependent pelvis, increased from the prior study. ----- DIAGNOSIS AND PLAN -------- Diagnoses: Acute Cholecystitis Acute abdominal pain Type II MA Atypical takatsubo PMHx: GERD, HTN, HLD, spinal [...] wit (more content not included)... Normal [facility] BASIC METABOLIC PANELon 02-2 Anion gap [Moles/Vol] 10 mmol/L Normal 10-20 [facility] Comment on above: Performed By: #### M G, CH8 #### [facility] [address], [place], Calcium [Mass/Vol] 7.7 mg/dL Low 8.4-10.4 [facility] Comment on above: Performed By: #### M G, CH8 #### [facility] [address], [place], Chloride [Moles/Vol] 102 mmol/L Normal 97-111 [facility] Comment on above: Performed By: #### Reid G, CH8 #### [facility] [address], [place], CO2 [Moles/Vol] 31 mmol/L High 21-30 [facility] Comment on above: Performed By: #### M G, CH8 #### [facility] [address], [place], Creatinine [Mass/Vol] 0.74 mg/dL Normal 0.50-1.10 [facility] Comment on above: Performed By: #### M G, CH8 #### [facility] [address], [place], ESTIMATED GFR (CKD-EPI) 88 mL/min/1.73sqm Normal >=60 [facility] Comment on above: Result Comment: 2020 [...] Inclusion of Race in Diagnosing Kidney Disease. [place] Journal of Kidney Diseases 2021;79(2):268-88.e1. 2. N Engl J Med 2021 Vol. 385 Issue 19 Pages 6849-2206 Performed By: #### Reid Grullon, CH8 #### [facility] [address] [place] [address], Glucose [Mass/Vol] 120 mg/dL High 80-116 [facility] Comment on above: Performed By: #### Reid Grullon, CH8 #### [facility] [address], [place], Potassium [Moles/Vol] 3.5 mmol/L Normal 3.3-5.3 [facility] Comment on above: Performed By: #### Reid Grullon, CH8 #### S PATHOLOGY LABORATORY [address], [place], Sodium [Moles/Vol] 139 mmol/L Normal 135-148 [facility] Comment on above: Performed By: #### Reid Grullon, CH8 #### S PATHOLOGY LABORATORY [address] [place] [address], Urea nitrogen [Mass/Vol] 8 mg/dL Normal 8-22 [facility] Comment on above: Performed By: #### Reid Grullon, CH8 #### S PATHOLOGY LABORATORY [address] [place] [address], COMPLETE BLOOD COUNTon 05-19 Erythrocyte distribution width (RBC) [Ratio] 15.6 % High 11.5-14.5 [facility] Comment on above: Performed By: #### Reid Grullon, CH8 #### S PATHOLOGY LABORATORY [address], [place], Hematocrit (Bld) [Volume fraction] 28.2 % Low 36.0-46.0 [facility] Comment on above: Performed By: #### Reid Grullon, CH8 #### S PATHOLOGY LABORATORY [address], [place], Hemoglobin (Bld) [Mass/Vol] 9.4 g/dL Low 12.0-15.0 [facility] Comment on above: Performed By: #### Reid Grullon, CH8 #### S PATHOLOGY LABORATORY [address] [place] [address], MCH (RBC) [Entitic mass] 27.7 pg Normal 26.0-34.0 [facility] Comment on above: Performed By: #### Reid Grullon, CH8 #### [facility] [address] [place] [address], MCHC (RBC) [Mass/Vol] 33.6 g/dL Normal 32.0-35.9 [facility] Comment on above: Performed By: #### Reid Grullon, CH8 #### [facility] [address] [place] [address], MCV (RBC) [Entitic vol] 83 fL Normal 80-100 [facility] Comment on above: Performed By: #### Reid Grullon, CH8 #### [facility] [address] [place] [address], Platelet mean volume (Bld) [Entitic vol] 7.8 fL Normal 7.5-11.2 [facility] Comment on above: Performed By: #### Reid Grullon, CH8 #### [facility] [address] [place] [address], Platelets (Bld) [#/Vol] 199 10*3/uL Normal 150-400 [facility] Comment on above: Performed By: #### Reid Grullon, CH8 #### [facility] [address] [place] [address], RBC (Bld) [#/Vol] 3.41 10*6/uL Low 4.00-5.20 [facility] Comment on above: Performed By: #### Reid Grullon, CH8 #### [facility] [address] [place] [address], WBC (Bld) [#/Vol] 5.3 10*3/uL Normal 4.5-11.5 [facility] Comment on above: Performed By: #### Reid Grullon, CH8 #### [facility] [address] [place] [address], Care Plan Noteon 05-19-2022 [employer] Authentication Interface Message Text Problem: Routine Care: [...] demand and imbalance Outcome: Progressing Normal [facility] GLUCOSE, FINGERSTICK-IN OFFI CEon 05-19-2022 Glucose [Mass/Vol] 80 mg/dL Normal 80-116 [facility] Comment on above: Performed By: #### Reid Grullon CH8 #### S PATHOLOGY LABORATORY [address] [place] [address], Glucose [Mass/Vol] 90 mg/dL Normal 80-116 [facility] Comment on above: Performed By: #### 8 2948 #### NURSING GLUCOSE PROGRAM [address] [place] [address], [id number] Glucose [Mass/Vol] 116 mg/dL Normal 80-116 [facility] Comment on above: Performed By: #### T S #### S PATHOLOGY LABORATORY [address] [place] [address], Glucose [Mass/Vol] 106 mg/dL Normal 80-116 [facility] Comment on above: Performed By: #### Reid Grullon CH8 #### S PATHOLOGY LABORATORY [address] [place] [address], Glucose [Mass/Vol] 106 mg/dL Normal 80-116 [facility] Comment on above: Performed By: #### eRid Grullon CH8 #### S PATHOLOGY LABORATORY [address] [place] [address], HEPATIC FUNCTION PANELon Albumin [Mass/Vol] 2.8 g/dL Low 3.4-5.1 [facility] Comment on above: Performed By: #### Reid Grullon, CH8 #### S PATHOLOGY LABORATORY [address] [place] [address], ALK 63 IU/L Normal 40-200 [facility] Comment on above: Performed By: #### Reid Grullon, CH8 #### S PATHOLOGY LABORATORY [address] [place] [address], ALT [Catalytic activity/Vol] 8 U/L Normal 7-40 [facility] Comment on above: Performed By: #### Reid Grullon, CH8 #### S PATHOLOGY LABORATORY [address] [place] [address], AST [Catalytic activity/Vol] 18 U/L Normal 7-40 [facility] Comment on above: Performed By: #### Reid Grullon, CH8 #### [facility] [address] [place] [address], Bilirubin [Mass/Vol] 0.9 mg/dL Normal 0.1-1.5 [facility] Comment on above: Performed By: #### Reid Grullon, CH8 #### [facility] [address] [place] [address], Bilirubin.direct [Mass/Vol] 0.48 mg/dL High 0.10-0.30 [facility] Comment on above: Performed By: #### Reid Grullon, CH8 #### S PATHOLOGY LABORATORY [address] [place] [address], Protein [Mass/Vol] 4.7 g/dL Low 5.7-8.1 [facility] Comment on above: Performed By: #### Reid Grullon, CH8 #### S PATHOLOGY LABORATORY [address] [place] [address], MAGNESIUMon 05-19-2022 Magnesium [Mass/Vol] 1.8 mg/dL Normal 1.6-2.8 [facility] Comment on above: Performed By: #### Reid Grullon, CH8 #### S PATHOLOGY LABORATORY [address] [place] [address], Progress Noteson 05-19-2022 [employer] Authentication Interface Message Text [facility] DIVISION OF ACUTE CARE SURGERY ---- GENERAL INFORMATION --- EMERGENCY GENERAL SURGERY NOTE Patient Name: Gerry Victoria Admission Date: 05/16/2022 Patient seen and examined on 05/19/2022 -- INTERVAL HISTORY/EVENTS Background Narrative: Gerry Victoria is a 66 year old female with PMH of hypertension, RLS, GERD, and h/o paroxysmal SVT who presented to [facility] with epigastric pain with nausea and vomiting. Patient describes onset of pain on prior day that has increased since then. Shortly after onset of pain, patient experienced nausea and persistent vomiting, now unable to tolerate PO intake. Denies fevers, chills. She presented to [facility] where EKG demonstrated 'hyperacute T waves' in multiple leads without evidence of STEMI. Troponin originally 139, then 381 on repeat. CTA was performed and did not reveal dissection or PE. CT did demonstrate acute inflammation of the gallbladder with a stone at the neck. A central line was placed for resuscitation purposes and the patient was transferred to [facility] for further evaluation. Prior to transfer, lab work without leukocytosis (10.7) and LFTs/Lipase without abnormality. ACS consulted upon arrival to [facility] for cholecystitis. She was admitted to the SDU for telemetry under EGS. Hospital Course/Procedures: 05/16/2022: Transferred from [facility] ED with cholecystitis, up-trending troponin, and [...] Intake/Output Summary (Last 24 hours) at 05/19/2022 0927 Last data filed at 05/19/2022 0800 Gross per 24 hour Intake 2290 ml Output 2885 ml Net -595 ml Physical Exam: -General - Seen resting in bed in SICU in [facility] -Neurologic - No focal deficits, clear speech [...] vol (more content not included)... Normal [facility] XR ABDOMEN 1 VIEW APon 05-19 XR ABDOMEN 1 VIEW AP EXAMINATION: XR ABD OMEN 1 VIEW AP 05/19/2022 08:49 AM CLINICAL HISTORY: NGT placement, eval for ileus ASSOCIATED DIAGNOSIS: ORDERING PROVIDER: PRAVIN AHUJA TECHNMAYUR NOTE: COMPARISON: 05/17/2022 CT study FINDINGS: Cholecystostomy [...] amount of stool. MACRO: None Normal [facility] BASIC METABOLIC PANELon - Anion gap [Moles/Vol] 12 mmol/L Normal 10-20 [facility] Comment on above: Performed By: #### M G, CH8 #### [facility] [address], [place], Calcium [Mass/Vol] 7.7 mg/dL Low 8.4-10.4 [facility] Comment on above: Performed By: #### M G, CH8 #### [facility] [address], [place], Chloride [Moles/Vol] 101 mmol/L Normal 97-111 [facility] Comment on above: Performed By: #### M G, CH8 #### [facility] [address], [place], CO2 [Moles/Vol] 27 mmol/L Normal 21-30 [facility] Comment on above: Performed By: #### M G, CH8 #### [facility] [address], [place], Creatinine [Mass/Vol] 0.78 mg/dL Normal 0.50-1.10 [facility] Comment on above: Performed By: #### M G, CH8 #### [facility] [address], [place], ESTIMATED GFR (CKD-EPI) 83 mL/min/1.73sqm Normal >=60 [facility] Comment on above: Result Comment: 2020 [...] Inclusion of Race in Diagnosing Kidney Disease. [place] Journal of Kidney Diseases 202;79(2):268-88.e1. 2. N Engl J Med 2021 Vol. 385 Issue 19 Pages 5312-3805 Performed By: #### Reid Grullon, CH8 #### S PATHOLOGY LABORATORY [address] [place] [address], Glucose [Mass/Vol] 77 mg/dL Low 80-116 [facility] Comment on above: Performed By: #### Reid Grullon, CH8 #### S PATHOLOGY LABORATORY [address] [place] [address], Potassium [Moles/Vol] 3.9 mmol/L Normal 3.3-5.3 [facility] Comment on above: Performed By: #### Reid Grullon, CH8 #### S PATHOLOGY LABORATORY [address] [place] [address], Sodium [Moles/Vol] 136 mmol/L Normal 135-148 [facility] Comment on above: Performed By: #### Reid Grullon, CH8 #### S PATHOLOGY LABORATORY [address] [place] [address], Urea nitrogen [Mass/Vol] 12 mg/dL Normal 8-22 [facility] Comment on above: Performed By: #### Reid Grullon, CH8 #### S PATHOLOGY LABORATORY [address] [place] [address], COMPLETE BLOOD COUNTon 05-18 Erythrocyte distribution width (RBC) [Ratio] 15.3 % High 11.5-14.5 [facility] Comment on above: Performed By: #### Reid Grullon, CH8 #### S PATHOLOGY LABORATORY [address] [place] [address], Hematocrit (Bld) [Volume fraction] 28.2 % Low 36.0-46.0 [facility] Comment on above: Performed By: #### Reid Grullon, CH8 #### S PATHOLOGY LABORATORY [address] [place] [address], Hemoglobin (Bld) [Mass/Vol] 10.1 g/dL Low 12.0-15.0 [facility] Comment on above: Performed By: #### Reid Grullon, CH8 #### S PATHOLOGY LABORATORY [address] [place] [address], MCH (RBC) [Entitic mass] 29.2 pg Normal 26.0-34.0 [facility] Comment on above: Performed By: #### Reid Grullon, CH8 #### [facility] [address] [place] [address], MCHC (RBC) [Mass/Vol] 35.6 g/dL Normal 32.0-35.9 [facility] Comment on above: Performed By: #### Reid Grullon, CH8 #### [facility] [address] [place] [address], MCV (RBC) [Entitic vol] 82 fL Normal 80-100 [facility] Comment on above: Performed By: #### Reid Grullon, CH8 #### [facility] [address] [place] [address], Platelet mean volume (Bld) [Entitic vol] 7.6 fL Normal 7.5-11.2 [facility] Comment on above: Performed By: #### Reid Grullon, ADEEL8 #### [facility] [address] [place] [address], Platelets (Bld) [#/Vol] 177 10*3/uL Normal 150-400 [facility] Comment on above: Performed By: #### Reid Grullon, CH8 #### [facility] [address] [place] [address], RBC (Bld) [#/Vol] 3.45 10*6/uL Low 4.00-5.20 [facility] Comment on above: Performed By: #### Reid Grullon, CH8 #### [facility] [address] [place] [address], WBC (Bld) [#/Vol] 9.4 10*3/uL Normal 4.5-11.5 [facility] Comment on above: Performed By: #### Reid Grullon, CH8 #### [facility] [address] [place] [address], GLUCOSE, FINGERSTICK-IN OFFI CEon 05-18-2022 Glucose [Mass/Vol] 93 mg/dL Normal 80-116 [facility] Comment on above: Performed By: #### T S #### [facility] [address], [place], Glucose [Mass/Vol] 98 mg/dL Normal 80-116 [facility] Comment on above: Performed By: #### T S #### [facility] [address], [place], Glucose [Mass/Vol] 118 mg/dL High 80-116 [facility] Comment on above: Result Comment: Verito aly RN, APN, MD Performed By: #### T S #### [facility] [address], [place], Glucose [Mass/Vol] 125 mg/dL High 80-116 [facility] Comment on above: Result Comment: Verito aly RN, APN, MD Performed By: #### M G, CH8 #### S PATHOLOGY LABORATORY [address], [place], Glucose [Mass/Vol] 66 mg/dL Low 80-116 [facility] Comment on above: Result Comment: Verito aly RN, APN, MD Performed By: #### M G, CH8 #### [facility] [address] [place] [address], HIGH SENSITIVITY TROPONIN Io n 05-18-2022 HS TROPONIN I 60 ng/L Critically high <=15 [facility] Comment on above: Order Comment: High Sensitivity Cardiac Troponin I (hsTnI) assay has replaced the conventional troponin assay at [facility].All results are reported in whole numbers representing ng/L.Repeat test times for ruling out acute coronary syndrome (ACS) are every 2 hours instead of every 6-8 hours.[id number] conventional troponin (I-stat) will remain available in the Main [place] [facility] ??? results obtained by different labs [...] value in 2 hours depending on risk [id number] ng/L or greater??? concern for ACS or [...] Performed By: #### H STRP ####[facility] PATH[facility] [id number] [place], [place], MAGNESIUMon 05-18-2022 Magnesium [Mass/Vol] 2.3 mg/dL Normal 1.6-2.8 [facility] Comment on above: Performed By: #### M G, CH8 #### [facility] [address], [place], Progress Noteson 05-18-2022 [employer] Authentication Interface Message Text [facility] DIVISION OF ACUTE CARE SURGERY ---- GENERAL INFORMATION --- EMERGENCY GENERAL SURGERY NOTE Patient Name: Gerry Victoria Admission Date: 05/16/2022 Patient seen and examined on 05/18/2022 -- INTERVAL HISTORY/EVENTS Background Narrative: Gerry Victoria is a 66 year old female with PMH of hypertension, RLS, GERD, and h/o paroxysmal SVT who presented [facility] with epigastric pain with nausea and vomiting. Patient describes onset of pain on prior day that has increased since then. Shortly after onset of pain, patient experienced nausea and persistent vomiting, now unable to tolerate PO intake. Denies fevers, chills. She presented to [facility] where EKG demonstrated 'hyperacute T waves' in multiple leads without evidence of STEMI. Troponin originally 139, then 381 on repeat. CTA was performed and did not reveal dissection or PE. CT did demonstrate acute inflammation of the gallbladder with a stone at the neck. A central line was placed for resuscitation purposes and the patient was transferred to [facility] for further evaluation. Prior to transfer, lab work without leukocytosis (10.7) and LFTs/Lipase without abnormality. ACS consulted upon arrival to [facility] for cholecystitis. She was admitted to the SDU for telemetry under EGS. Hospital Course/Procedures: 05/16/2022: Transferred from [facility] ED with cholecystitis, up-trending troponin, and [...] Seen resting in bed in SICU in [facility] -Neurologic - No focal deficits, clear speech [...] obstructi (more content not included)... Normal [facility] AEROBIC WOUND CULTUREon 04-28 AEROBIC WOUND CULTURE LACTOBACILLUS SPEC IES Rare Lactobacillus species No further workup GRAM STAIN: 2+ Polymorphonuclear Leukocytes No Squamous Epithelial Cells seen 2+ Gram Positive Bacilli Normal [facility] Comment on above: Performed By: #### C PYOG #### [facility] [address] [place] [address] BASIC METABOLIC PANELon 04-28 Anion gap [Moles/Vol] 11 mmol/L Normal 10-20 [facility] Comment on above: Performed By: #### T S #### [facility] [address] [place] [address], Calcium [Mass/Vol] 8.1 mg/dL Low 8.4-10.4 [facility] Comment on above: Performed By: #### T S #### [facility] [address] [place] [address], Chloride [Moles/Vol] 97 mmol/L Normal 97-111 [facility] Comment on above: Performed By: #### T S #### [facility] [address] [place] [address], CO2 [Moles/Vol] 27 mmol/L Normal 21-30 [facility] Comment on above: Performed By: #### T S #### [facility] [address] [place] [address], Creatinine [Mass/Vol] 0.97 mg/dL Normal 0.50-1.10 [facility] Comment on above: Performed By: #### T S #### [facility] [address] [place] [address], ESTIMATED GFR (CKD-EPI) 64 mL/min/1.73sqm Normal >=60 [facility] Comment on above: Result Comment: 2020 [...] Inclusion of Race in Diagnosing Kidney Disease. Ukrainian Journal of Kidney Diseases 2021;79(2):268-88.e1. 2. N Engl J Med 2020 Vol. 385 Issue 19 Pages 6524-3066 Performed By: #### T S #### [facility] [address] [place] [address], Glucose [Mass/Vol] 96 mg/dL Normal 80-116 [facility] Comment on above: Performed By: #### T S #### [facility] [address] [place] [address], Potassium [Moles/Vol] 4.1 mmol/L Normal 3.3-5.3 [facility] Comment on above: Performed By: #### T S #### [facility] [address] [place] [address], Sodium [Moles/Vol] 131 mmol/L Low 135-148 [facility] Comment on above: Performed By: #### T S #### [facility] [address] [place] [address], Urea nitrogen [Mass/Vol] 14 mg/dL Normal 8-22 [facility] Comment on above: Performed By: #### T S #### [facility] [address] [place] [address], BLOOD CULTUREon 05-17-2022 Bacteria identified Cx Nom (Bld) C BLOOD: No Growth Normal [facility] Comment on above: Performed By: #### 8 2948 #### NURSING GLUCOSE [facility] [address] [place] [address], [id number] CALCIUM, IONIZEDon 3 CR ICA 1.06 mmol/L Low 1.10-1.40 [facility] Comment on above: Performed By: #### T S #### [facility] [address] [place] [address], COMPLETE BLOOD COUNTon 05-17 Erythrocyte distribution width (RBC) [Ratio] 15.8 % High 11.5-14.5 [facility] Comment on above: Performed By: #### C H8, HEPATIC #### [facility] [address] [place] [address], Hematocrit (Bld) [Volume fraction] 36.4 % Normal 36.0-46.0 [facility] Comment on above: Performed By: #### C H8, HEPATIC #### [facility] [address] [place] [address], Hemoglobin (Bld) [Mass/Vol] 12.1 g/dL Normal 12.0-15.0 [facility] Comment on above: Performed By: #### C H8, HEPATIC #### [facility] [address] [place] [address], MCH (RBC) [Entitic mass] 27.7 pg Normal 26.0-34.0 [facility] Comment on above: Performed By: #### C H8, HEPATIC #### [facility] [address], [place], MCHC (RBC) [Mass/Vol] 33.3 g/dL Normal 32.0-35.9 [facility] Comment on above: Performed By: #### C H8, HEPATIC #### [facility] [address] [place] [address], MCV (RBC) [Entitic vol] 83 fL Normal 80-100 [facility] Comment on above: Performed By: #### C H8, HEPATIC #### [facility] [address], [place], Platelet mean volume (Bld) [Entitic vol] 7.8 fL Normal 7.5-11.2 [facility] Comment on above: Performed By: #### C H8, HEPATIC #### [facility] [address], [place], Platelets (Bld) [#/Vol] 232 10*3/uL Normal 150-400 [facility] Comment on above: Performed By: #### C H8, HEPATIC #### [facility] [address], [place], RBC (Bld) [#/Vol] 4.37 10*6/uL Normal 4.00-5.20 [facility] Comment on above: Performed By: #### C H8, HEPATIC #### S [facility] [address], [place], WBC (Bld) [#/Vol] 12.3 10*3/uL High 4.5-11.5 [facility] Comment on above: Performed By: #### C H8, HEPATIC #### [facility] [address], [place], CT ABDOMEN/PELVIS W/ CONTRAS Ton 05-17-2022 CT [...] the prior study. MACRO: None Normal [facility] HEPATIC FUNCTION PANELon Albumin [Mass/Vol] 3.2 g/dL Low 3.4-5.1 [facility] Comment on above: Performed By: #### C H8, HEPATIC #### [facility] [address] [place] [address], [id number] ALK 72 IU/L Normal 40-200 [facility] Comment on above: Performed By: #### C H8, HEPATIC #### [facility] [address] [place] [address], ALT [Catalytic activity/Vol] 12 U/L Normal 7-40 [facility] Comment on above: Performed By: #### C H8, HEPATIC #### [facility] [address] [place] [address], AST [Catalytic activity/Vol] 25 U/L Normal 7-40 [facility] Comment on above: Performed By: #### C H8, HEPATIC #### [facility] [address] [place] [address], Bilirubin [Mass/Vol] 3.9 mg/dL High 0.1-1.5 [facility] Comment on above: Performed By: #### C H8, HEPATIC #### [facility] [address] [place] [address], Bilirubin.direct [Mass/Vol] 2.30 mg/dL High 0.10-0.30 [facility] Comment on above: Performed By: #### Meenu H8, HEPATIC #### [facility] [address] [place] [address], Protein [Mass/Vol] 5.2 g/dL Low 5.7-8.1 [facility] Comment on above: Performed By: #### Meenu H8, HEPATIC #### S [facility] [address] [place] [address], LACTIC ACIDon 05-17-2022 CR LACT 1.4 mmol/L Normal 0.5-2.0 [facility] Comment on above: Performed By: #### T S #### S [facility] [address] [place] [address], MAGNESIUMon 05-17-2022 Magnesium [Mass/Vol] 1.9 mg/dL Normal 1.6-2.8 [facility] Comment on above: Performed By: #### C H8, HEPATIC #### S [facility] [address] [place] [address], PARTIAL THROMBOPLASTIN TIMEo n 05-17-2022 aPTT Coag (Bld) [Time] 34 s Normal 25-37 Th e [facility] Comment on above: Performed By: #### M G, 8 #### S [facility] [address], [place], PHOSPHORUSon 05-17-2022 Phosphate [Mass/Vol] 3.9 mg/dL Normal 2.3-4.2 [facility] Comment on above: Performed By: #### C H8, HEPATIC #### [facility] [address], [place], PROTHROMBIN TIME AND INRon 0 05-17-2022 INR Coag (PPP) [Relative time] 1.61 {INR} High 0.90-1.10 [facility] Comment on above: Performed By: #### M Yadi, CH8 #### [facility] [address], [place], PT Coag (PPP) [Time] 18.1 s High 9.7-12.9 [facility] Comment on above: Performed By: #### Reid Grullon, 8 #### S [facility] [address], [place], Progress Noteson 05-17-2022 [employer] Authentication Interface Message Text Acute Care Surgery Post-Operative Check Gerry Victoria [id number] Procedure: US guided percutaneous cholecystostomy tube placement [...] Chu Da Silva PA-C Acute Care Surgery [facility] [phone] ACS Consults [phone] [facility] Floor Patients Normal [facility] [employer] Authentication Interface Message Text -- Attestation signed by Yobani Aviles MD at [...] drain placement. Yobani Aviles MD Cardiology Attending -- ==== Consult Service Progress Note General Cardiology Consult [...] Push Q4H PRN 4 mg at 05/17/22 213 Piperacillin-Tazobactam in D5W (ZOSYN) 4-0.5 GM/100ML ivpb [...] mg Oral At Bedtime 2 mg at 05/17/222105 gabapentin (NEURONTIN) capsule 100 mg Oral 3x [...] mg Oral At Bedtime 8.6 mg at 05/17/222105 Vital sign ranges over the past 24 [...] 4. (more content not included)... Normal [facility] [employer] Authentication Interface Message Text [facility] DIVISION OF ACUTE CARE SURGERY ---- GENERAL INFORMATION --- EMERGENCY GENERAL SURGERY NOTE Patient Name: Gerry Victoria Admission Date: 05/16/2022 Patient seen and examined on 05/17/2022 -- INTERVAL HISTORY/EVENTS Background Narrative: Gerry Victoria is a 66 year old female with PMH of hypertension, RLS, GERD, and h/o paroxysmal SVT who presented to [facility] with epigastric pain with nausea and vomiting. Patient describes onset of pain on prior day that has increased since then. Shortly after onset of pain, patient experienced nausea and persistent vomiting, now unable to tolerate PO intake. Denies fevers, chills. She presented to [facility] where EKG demonstrated 'hyperacute T waves' in multiple leads without evidence of STEMI. Troponin originally 139, then 381 on repeat. CTA was performed and did not reveal dissection or PE. CT did demonstrate acute inflammation of the gallbladder with a stone at the neck. A central line was placed for resuscitation purposes and the patient was transferred to [facility] for further evaluation. Prior to transfer, lab work without leukocytosis (10.7) and LFTs/Lipase without abnormality. ACS consulted upon arrival to [facility] for cholecystitis. She was admitted to the SDU for telemetry under EGS. Hospital Course/Procedures: 05/16/2022: Transferred from [facility] ED with cholecystitis, up-trending troponin, and unclear EKG findings. Events in last 24 hours: NAEO Hypotensive, non tachy, afebrile Uptrending leukocytosis 12 (11), downtrending troponins 319 (706) No BM recorded since admission. PHYSICAL EXAM Vitals: Vital sign ranges over [...] INR 05/17/22 0411 34 05/17/22 0411 1.61 05/17/22410 12.3 4.37 12.1 36.4 83 15.8 232 Basic Metabolic Panel Na K Cl CO2 Gap Glu BUN Cr Ca Mg PO4 05/17/22410 3.9 05/17/22410 1.9 05/17/22410 131 4.1 [...] (LVEF) (more content not included)... Normal [facility] ABO RH TYPEon 05-16-2022 ABO and Rh group Nom (Bld) Blood group A Rh(D) positive Normal [facility] Comment on above: Performed By: #### M ADEEL Grullon8 #### [facility] [address] [place] [address], BASIC METABOLIC PANELon 02-2 Anion gap [Moles/Vol] 14 mmol/L Normal 10-20 [facility] Comment on above: Performed By: #### C H8, HEPATIC #### [facility] [address] [place] [address], Calcium [Mass/Vol] 8.6 mg/dL Normal 8.4-10.4 [facility] Comment on above: Performed By: #### C H8, HEPATIC #### [facility] [address] [place] [address], Chloride [Moles/Vol] 100 mmol/L Normal 97-111 [facility] Comment on above: Performed By: #### C H8, HEPATIC #### [facility] [address] [place] [address], CO2 [Moles/Vol] 27 mmol/L Normal 21-30 [facility] Comment on above: Performed By: #### C H8, HEPATIC #### [facility] [address] [place] [address], Creatinine [Mass/Vol] 0.76 mg/dL Normal 0.50-1.10 [facility] Comment on above: Performed By: #### C H8, HEPATIC #### [facility] [address] [place] [address], ESTIMATED GFR (CKD-EPI) 85 mL/min/1.73sqm Normal >=60 [facility] Comment on above: Result Comment: 2020 [...] Inclusion of Race in Diagnosing Kidney Disease. Ukrainian Journal of Kidney Diseases 202;79(2):268-88.e1. 2. N Engl J Med 1 Vol. 385 Issue 19 Pages 8998-2008 Performed By: #### C H8, HEPATIC #### [facility] [address], [place], Glucose [Mass/Vol] 119 mg/dL High 80-116 [facility] Comment on above: Performed By: #### C H8, HEPATIC #### [facility] [address] [place] [address], Potassium [Moles/Vol] 4.9 mmol/L Normal 3.3-5.3 [facility] Comment on above: Performed By: #### C H8, HEPATIC #### [facility] [address] [place] [address], Sodium [Moles/Vol] 136 mmol/L Normal 135-148 [facility] Comment on above: Performed By: #### C H8, HEPATIC #### [facility] [address] [place] [address], Urea nitrogen [Mass/Vol] 9 mg/dL Normal 8-22 [facility] Comment on above: Performed By: #### C H8, HEPATIC #### S [facility]Y [facility]ATORY [address] [place] [address], Blood Cultureon 05-16-2022 Bacteria identified Cx Nom (Bld) NO GROWTH 5 DAYS PERFORMED BY: [place] [address] PATHOLOGIST BLOCKER AND CUTTER CONTACT LENS WILDER BOTELLO M.D. [facility] Comment on above: Performed By: #### B MP, CBC, LIPASE, HEPATIC #### [address] CBC WITH DIFFERENTIALon 04-28 Basophils (Bld) [#/Vol] 0.06 10*3/uL Normal 0.00-0.20 [facility] Comment on above: Performed By: #### 8 2948 #### NURSING GLUCOSE [facility] [address] [place] [address], [address] Basophils/100 WBC (Bld) 0.5 % Normal <=1.9 [facility] Comment on above: Performed By: #### 8 2948 #### NURSING GLUCOSE PROGRAM [address] [place] [address], [address] Eosinophils (Bld) [#/Vol] 0.02 10*3/uL Normal 0.00-0.70 [facility] Comment on above: Performed By: #### 8 2948 #### NURSING GLUCOSE PROGRAM [address] [place], [address] Eosinophils/100 WBC (Bld) 0.1 % Normal 0.1-4.0 [facility] Comment on above: Performed By: #### 8 2948 #### NURSING GLUCOSE PRO[facility] [address] [place], [address] Erythrocyte distribution width (RBC) [Ratio] 15.3 % High 11.5-14.5 [facility] Comment on above: Performed By: #### 8 2948 #### NURSING GLUCOSE PROGRAM [address] [place], [address] Hematocrit (Bld) [Volume fraction] 39.2 % Normal 36.0-46.0 [facility] Comment on above: Performed By: #### 8 2948 #### NURSING GLUCOSE PROGRAM [address] [place], [address] Hemoglobin (Bld) [Mass/Vol] 13.0 g/dL Normal 12.0-15.0 [facility] Comment on above: Performed By: #### 8 2948 #### NURSING GLUCOSE PROGRAM [address] [place], [address] Lymphocytes (Bld) [#/Vol] 1.23 10*3/uL Normal 1.00-4.80 [facility] Comment on above: Performed By: #### 8 2948 #### NURSING GLUCOSE PROGRAM [address] [place], [address] Lymphocytes/100 WBC (Bld) 10.9 % Low 24.0-44.0 [facility] Comment on above: Performed By: #### 8 2948 #### NURSING GLUCOSE PROGRAM [address] [place], [address] MCH (RBC) [Entitic mass] 27.4 pg Normal 26.0-34.0 [facility] Comment on above: Performed By: #### 8 2948 #### NURSING GLUCOSE PROGRAM [address] [place], [address] MCHC (RBC) [Mass/Vol] 33.1 g/dL Normal 32.0-35.9 [facility] Comment on above: Performed By: #### 8 2948 #### NURSING GLUCOSE PROGRAM [address] [place], [address] MCV (RBC) [Entitic vol] 83 fL Normal 80-100 [facility] Comment on above: Performed By: #### 8 2948 #### NURSING GLUCOSE PROGRAM [address] [place], [address] MONOCYTE DISTRIBUTION WIDTH 17 Normal <=20 [facility] Comment on above: Performed By: #### 8 2948 #### NURSING GLUCOSE PROGRAM [address] [place], [address] Monocytes (Bld) [#/Vol] 0.69 10*3/uL Normal 0.20-1.00 [facility] Comment on above: Performed By: #### 8 2948 #### NURSING GLUCOSE PROGRAM [address] [place], [address] Monocytes/100 WBC (Bld) 6.1 % Normal 2.0-11.0 [facility] Comment on above: Performed By: #### 8 2948 #### NURSING GLUCOSE PROGRAM [address] [place], [address] Neutrophils (Bld) [#/Vol] 9.30 10*3/uL High 1.50-8.00 [facility] Comment on above: Performed By: #### 8 2948 #### NURSING GLUCOSE PROGRAM [address] [place], [address] Neutrophils/100 WBC (Bld) 82.4 % High 31.0-76.0 [facility] Comment on above: Performed By: #### 8 2948 #### NURSING GLUCOSE PROGRAM [address] [place], [address] Platelet mean volume (Bld) [Entitic vol] 7.5 fL Normal 7.5-11.2 [facility] Comment on above: Performed By: #### 8 2948 #### NURSING GLUCOSE PROGRAM [address] [place], [address] Platelets (Bld) [#/Vol] 290 10*3/uL Normal 150-400 [facility] Comment on above: Performed By: #### 8 2948 #### NURSING GLUCOSE PROGRAM [address] [place], [address] RBC (Bld) [#/Vol] 4.74 10*6/uL Normal 4.00-5.20 [facility] Comment on above: Performed By: #### 8 2948 #### NURSING GLUCOSE PROGRAM [address] [place], [address] WBC (Bld) [#/Vol] 11.3 10*3/uL Normal 4.5-11.5 [facility] Comment on above: Performed By: #### 8 2948 #### NURSING GLUCOSE PROGRAM [address] [place], [address] CT angio chest PE protocolon 05-16-2022 CT angio chest PE protocol [facility] Main [place] [address] [place] [address] CT Scan Report Signed Patient: Gerry Victoria MR#: [id number] 10 : 1955 Acct:[id number] Age/Sex: 66 / F ADM Date: 05/15/22 Loc: ER Room: Type: [facility] ER Attending Dr: Copies to: Keith Griffith [...] Aditya Hodge M.D.05/16/2022 8:19 AM Dictation Location: [facility] Transcribed By: MANUEL 05/16/22818 Dictated By: Aditya Hodge II, MD 05/16/22810 Signed By: 05/16/22818 [facility] Care Plan Noteon 05-16-2022 We[employer] Authentication Interface Message Text Problem: Routine Care: [...] by Marycarmen Anna RN Outcome: Progressing 05/16/2022 104 by Marycarmen Anna RN Outcome: Progressing Problem: VTE Prophylaxis: Goal: Will be free of DVT 05/16/2022 1042 by Marycarmen Anna RN Outcome: Progressing 05/16/2022 104 by Marycarmen Anna RN Outcome: Progressing Problem: Safety: Goal: Patient will remain free of falls during hospital stay 05/16/2022 1042 by Marycarmen Anna RN Outcome: Progressing 05/16/2022 1041 by Marycarmen Anna RN Outcome: Progressing Goal: Free from injury during hospitalization 05/16/2022 1042 by Marycarmen Anna RN Outcome: Progressing 05/16/2022 1041 by Marycarmen Anna RN Outcome: Progressing Problem: Discharge Planning: Goal: Discharge needs of the adult patient will be met 05/16/2022 104 by Marycarmen Anna RN Outcome: Progressing 05/16/2022 104 by Marycarmen Anna RN Outcome: Progressing Normal [facility] [employer] Authentication Interface Message Text This is a 66 YO f with PMH of fibromyalgia, HTN, RLS, who presented with epigastric pain associated with nausea and vomiting around yesterday afternoon. She was seen at [facility] and EKG done there showed NSR but [...] admit to surgery step down. Normal [facility] Consultson 05-16-2022 We[employer] Authentication Interface Message Text Dietitian vs DietaryTech: Dietary TechDiet Track Template Maker Nutrition Screening Reason for visit: Positive nutrition [...] Screening Value: None Comments: NPO currently with [id number] to tolerate po. No food allergies. Weights-see above. Monitor NPO status-diet advance. Number of Points: 1 Nutritional Plan of Care: Less than or equal to 6 points: At this time, patient is at low nutrition risk. DTR to provide routine follow up. Will continue to follow, BRENDA Florez (Nutrition) Pager #[phone]. Normal [facility] [employer] Authentication Interface Message Text ==== New Patient Consult General Cardiology Consult Service C/O: elevated troponin levels HPI: 66 year old female with history of hypertension (on atenolol), fibromylagia, RLS is consulted for elevated HsTNT levels in the setting of hospitalization for acute cholecystitis. She presented to [facility] on 05/15 with epigastric pain, nausea and vomiting, worsening in nature and unable to tolerate oral medications. Per records, EKG at [facility] showed hyperacute T waves without STEMI. HsTroponin trend as 139->381. Imaging showed acute cholecystitis. Patient was then transferred to [facility] for further care. Patient reports no left sided chest pain, however symptomatic with epigastric pain and nausea. Denies any exertional angina at home, no orthopnea, PND or palpitations at home. Denies any prior history of MA/CAD, DM-2, HF or arrhythmias. She was modestly [...] -- 98 20 97 % -- -- 05/16/223 -- 99.7 ???F (37.6 ???C) Oral -- -- -- -- -- 05/16/22216 -- -- -- 87 15 97 % Nasal cannula 2 05/16/22211 144/74 -- -- -- -- -- -- [...] Assessment AND Plan Troponinemia, as Type II MA. It is under the setting of demand [...] docum (more content not included)... Normal [facility] ED Provider Noteson 05-16-19 Webbing [employer] Authentication Interface Message Text EMERGENCY DEPARTMENT - VISIT NOTE ---- HISTORY OF PRESENT ILLNESS Chief Complaint Patient [...] and ASA. Troponins uptrended at [facility] ED. --------- REVIEW OF SYSTEMS Review of Systems Constitutional: [...] in transport fentanyl given Review of External (Non-[facility] ED) Notes: Imaging from 05/15/22 reviewed and shows cholecystitis Discussion with External Provider: Auto Leasing Manager from surgery service recommends admission for cholecystectomy [...] comforta (more content not included)... Normal [facility] H AND Cabrera 05-16-2022 Webbing [employer] Authentication Interface Message Text [facility] ACUTE CARE SURGERY H AND P Gerry Victoria [id number] Consult reason: Concern for acute cholecystitis History (HPI) Gerry Victoria is a 66 year old female with PMH of hypertension, RLS, GERD who presented to [facility] with epigastric pain with nausea and vomiting. Patient describes onset of pain on prior day that has increased since then. Shortly after onset of pain, patient experienced nausea and persistent vomiting, now unable to tolerate PO intake. Denies fevers, chills. She presented to [facility] where EKG demonstrated 'hyperacute T waves' in multiple leads without evidence of STEMI. Troponin originally 139, then 381 on repeat. CTA was performed and did not reveal dissection or PE. CT did demonstrate acute inflammation of the gallbladder with a stone at the neck. A central line was placed for resuscitation purposes and the patient was transferred to [facility] for further evaluation. Prior to transfer, lab work without leukocytosis (10.7) and LFTs/Lipase without abnormality. ACS consulted upon arrival to [facility]. PMH: HTN, RLS, GERD, Hypothyroidism, [...] Use (none): Lives with her cats (Kasi, Squeaker, Marely). Review of Systems (Bold is Positive [...] RLS, GERD who presents as transfer from [facility] with concern for acute cholecystitis alongside concurrent NSTEMI. Troponin originally 139, then 381 on repeat prior to transfer. Repeat Troponin at [facility] - 706. Cardiology consulted for [...] impa (more content not included)... Normal [facility] HEPATIC FUNCTION PANELon Albumin [Mass/Vol] 4.0 g/dL Normal 3.4-5.1 [facility] Comment on above: Performed By: #### C H8, HEPATIC #### [facility] [address] [place] [address], ALK 79 IU/L Normal 40-200 The [facility] Comment on above: Performed By: #### C H8, HEPATIC #### [facility] [address] [place] [address], ALT [Catalytic activity/Vol] 11 U/L Normal 7-40 The [facility] Comment on above: Performed By: #### C H8, HEPATIC #### [facility] [address] [place] [address], AST [Catalytic activity/Vol] 20 U/L Normal 7-40 [facility] Comment on above: Performed By: #### C H8, HEPATIC #### [facility] [address] [place] [address], Bilirubin [Mass/Vol] 0.6 mg/dL Normal 0.1-1.5 [facility] Comment on above: Performed By: #### C H8, HEPATIC #### [facility] [address] [place], [place], Bilirubin.direct [Mass/Vol] 0.13 mg/dL Normal 0.10-0.30 [facility] Comment on above: Performed By: #### C H8, HEPATIC #### [facility] [address], [place], Protein [Mass/Vol] 6.4 g/dL Normal 5.7-8.1 [facility] Comment on above: Performed By: #### C H8, HEPATIC #### [facility] [address], [place], HIGH SENSITIVITY TROPONIN Io n 05-16-2022 HS TROPONIN I 319 ng/L Critically high <=15 [facility] Comment on above: Order Comment: High Sensitivity Cardiac Troponin I (hsTnI) assay has replaced the conventional troponin assay at [facility]. All results are reported in whole numbers representing ng/L. Repeat test times for ruling out acute coronary syndrome (ACS) are every 2 hours instead of every 6-8 hours. Hvwyi-jz-xgso conventional troponin (I-stat) will remain available in the [facility] ED ??? results obtained by different labs [...] #### H STRP #### [facility] [address] [place] [address], [id number] HS TROPONIN I 475 ng/L Critically high <=15 The [facility] Comment on above: Order Comment: High Sensitivity Cardiac Troponin I (hsTnI) assay has replaced the conventional troponin assay at [facility].All results are reported in whole numbers representing ng/L.Repeat test times for ruling out acute coronary syndrome (ACS) are every 2 hours instead of every 6-8 hours.Xkdkj-ku-aeju conventional troponin (I-stat) will remain available in the [facility] [place] [facility] ??? results obtained by different labs [...] value in 2 hours depending on risk cmywxnloxl82 ng/L or greater??? concern for ACS or [...] C H8, HEPATIC #### [facility] [address] [place] [address], [id number] HS TROPONIN I 433 ng/L Critically high <=15 The [facility] Comment on above: Order Comment: High Sensitivity Cardiac Troponin I (hsTnI) assay has replaced the conventional troponin assay at [facility].All results are reported in whole numbers representing ng/L.Repeat test times for ruling out acute coronary syndrome (ACS) are every 2 hours instead of every 6-8 hours.Jlsxp-ub-fqyr conventional troponin (I-stat) will remain available in the [facility] ED ??? results obtained by different labs [...] value in 2 hours depending on risk vttfiscnts74 ng/L or greater??? concern for ACS or [...] Performed By: #### H STRP ####[facility] [id number] [place], [phone] HS TROPONIN I 714 ng/L Critically high <=15 The [facility] Comment on above: Order Comment: High Sensitivity Cardiac Troponin I (hsTnI) assay has replaced the conventional troponin assay at [facility].All results are reported in whole numbers representing ng/L.Repeat test times for ruling out acute coronary syndrome (ACS) are every 2 hours instead of every 6-8 hours.Nrojo-ww-czal conventional troponin (I-stat) will remain available in the [facility] [place] [facility] ??? results obtained by different labs [...] = 2 points). Performed By: #### M Yadi, 8 #### [facility] [address] [place] [address], [phone] HS TROPONIN I 706 ng/L Critically high <=15 The [facility] Comment on above: Order Comment: High Sensitivity Cardiac Troponin I (hsTnI) assay has replaced the conventional troponin assay at [facility].All results are reported in whole numbers representing ng/L.Repeat test times for ruling out acute coronary syndrome (ACS) are every 2 hours instead of every 6-8 hours.Qdyoe-qx-vdjc conventional troponin (I-stat) will remain available in the [facility] [place] [facility] ??? results obtained by different labs [...] C H8, HEPATIC #### [facility] [address] [place] [address], LACTATE WITH REPEAT EDon CR LACT 1.8 mmol/L Normal 0.5-2.0 [facility] Comment on above: Performed By: #### C H8, HEPATIC #### [facility] [address] [place] [address], PARTIAL THROMBOPLASTIN TIMEo n 05-16-2022 aPTT Coag (Bld) [Time] 55 s High 25-37 Th e [facility] Comment on above: Performed By: #### C H8, HEPATIC #### [facility] [address] [place] [address], PROTHROMBIN TIME AND INRon 0 05-16-2022 INR Coag (PPP) [Relative time] 1.10 {INR} Normal 0.90-1.10 [facility] Comment on above: Performed By: #### C H8, HEPATIC #### [facility] [address] [place] [address], PT Coag (PPP) [Time] 12.4 s Normal 9.7-12.9 [facility] Comment on above: Performed By: #### C H8, HEPATIC #### [facility] [address] [place] [address], Procedureson 05-16-2022 [employer] Authentication Interface Message Text Transthoracic Echocardiographic Report Name: RYLIE GARRETT Interpreting LETITIA ELKINS MD Physician: : 1955 Referring JANNETH SAGE Physician: Age: 66 Pelts Skinner: Laina Mora RDCS Exam Date: 05/16/2022 Fellow: [...] Doctor's order(s) verified. Patient's preferred language is Bol[place]ian . Verbal consent for left heart echo [...] physician) on 05/16/2022 12:03 PM Normal [facility] Progress Noteson 05-16-2022 Webbing Weaver Authentication Interface Message Text [id number] notified of critical Troponin value of 475. read back critical results. New orders not received. Normal [facility] Webbing [employer] Authentication Interface Message Text [facility] DIVISION OF ACUTE CARE SURGERY ---- GENERAL INFORMATION --- EMERGENCY GENERAL SURGERY NOTE Patient Name: Gerry Victoria Admission Date: 05/16/2022 Patient seen and examined on 05/16/2022 -- INTERVAL HISTORY/EVENTS Background Narrative: Gerry Victoria is a 66 year old female with PMH of hypertension, RLS, GERD, and h/o paroxysmal SVT who presented [facility] with epigastric pain with nausea and vomiting. Patient describes onset of pain on prior day that has increased since then. Shortly after onset of pain, patient experienced nausea and persistent vomiting, now unable to tolerate PO intake. Denies fevers, chills. She presented to [facility] where EKG demonstrated 'hyperacute T waves' in multiple leads without evidence of STEMI. Troponin originally 139, then 381 on repeat. CTA was performed and did not reveal dissection or PE. CT did demonstrate acute inflammation of the gallbladder with a stone at the neck. A central line was placed for resuscitation purposes and the patient was transferred to [facility] for further evaluation. Prior to transfer, lab work without leukocytosis (10.7) and LFTs/Lipase without abnormality. ACS consulted upon arrival to [facility] for cholecystitis. She was admitted to the SDU for telemetry under EGS. Hospital Course/Procedures: 05/16/2022: Transferred from [facility] ED with cholecystitis, up-trending troponin, and unclear EKG findings. Events in last 24 hours: Admitted overnight to SDU. ECHO today with EF 55% and findings consistent with atypical takatsubo. Voiding via fu. No BM since admission. Has been NPO for possible surgery. PHYSICAL EXAM Vitals: Vital sign ranges over [...] fr (more content not included)... Normal [facility] TYPE AND SCREENon 05-16-2022 ABO and Rh group Nom (Bld) Blood group A Rh(D) positive Normal [facility] Comment on above: Performed By: #### T S #### S [facility] [address] [place] [address], ABO and Rh group Nom (Bld) No Previous Results Normal [facility] Comment on above: Performed By: #### T S #### [facility] [address] [place] [address], ABSC INT Negative Normal The [facility] Comment on above: Performed By: #### T S #### [facility] [address] [place] [address], US LIVER/GALL BLADDER/PANCRE ASon 05-16-2022 US LIVER/GALL [...] significant biliary dilatation. MACRO: None Normal [facility] XR CHEST 1 VIEW AP OR [...] other acute process. MACRO: None Normal [facility] XR chest 1V portableon 05-16 XR chest 1V portable [facility] [place] [address] XRay Report Signed Patient: Gerry Victoria MR#: [id number] 10 : 1955 Acct:[id number] Age/Sex: 66 / F ADM Date: 05/15/22 Loc: ER Room: Type: [facility] ER Attending Dr: Copies to: Keith Griffith [...] Aditya Hodge M.D.05/16/2022 9:24 AM Dictation Location: [place] [address] Transcribed By: MANUEL 05/16/22923 Dictated By: Aditya Hodge II, MD 05/16/22922 Signed By: 05/16/22923 Normal [facility] Activated partial thrombopla stin time (aPTT) in platelet poor plasma by coagulation aOrdered By: Keith Griffith on 05-15-2022 aPTT Coag (PPP) [Time] 29.6 s 25.1-36.5 [facility] Albumin [Mass/volume] in Ser um or PlasmaOrdered By: Keith Griffith on 05-15-2022 Albumin [Mass/Vol] 4.4 g/dL 3.2-5.5 [facility] B-Type Natriuretic Peptideon 05-15-2022 Natriuretic peptide B (Bld) [Mass/Vol] 365.0 pg/mL High 5-100 [facility] Comment on above: Result Comment: PERF ORMED BY: [place] [address] PATHOLOGIST [employer]CT LENS WILDER BOTELLO M.D. Performed By: #### B MP, CBC, LIPASE, HEPATIC #### [address] Bacterial blood cultureOrder ed By: Keith Griffith on 05-15-2022 Bacteria identified Cx Nom (Bld) NO GROWTH 5 DAYS [facility] Basic Metabolic Panelon 04-27 Anion gap [Moles/Vol] 13.5 mmol/L Normal 6.0-15.0 [facility] Comment on above: Performed By: #### B MP, CBC, LIPASE, HEPATIC #### [facility] [address] Calcium [Mass/Vol] 8.9 mg/dL Normal 8.2-10.2 [facility] Comment on above: Performed By: #### B MP, CBC, LIPASE, HEPATIC #### [facility] [address] Chloride [Moles/Vol] 98 mmol/L Normal 95-114 [facility] Comment on above: Performed By: #### B MP, CBC, LIPASE, HEPATIC #### [facility] [address] CO2 [Moles/Vol] 25.7 mmol/L Normal 22.0-30.0 [facility] Comment on above: Performed By: #### B MP, CBC, LIPASE, HEPATIC #### [facility] [address] Creatinine [Mass/Vol] 0.98 mg/dL Normal 0.44-1.03 [facility] Comment on above: Performed By: #### B MP, CBC, LIPASE, HEPATIC #### [facility] [address] [place] [address] [place] Creatinine Clr Calc Pharmacy 51.97 [facility] Comment on above: Performed By: #### B MP, CBC, LIPASE, HEPATIC #### [facility] [address] Estimated GFR ( Unique > 60 [facility] Comment on above: Result Comment: GFR estimated reference range: According to KDOQI guidelines, <60 ml/min/1.73m2 is sufficient to diagnose a patient with chronic kidney disease. Performed By: #### B MP, CBC, LIPASE, HEPATIC #### [facility] [address] [place] [address] [place] Estimated GFR (Non- Am 56 [facility] Comment on above: Performed By: #### B MP, CBC, LIPASE, HEPATIC #### [facility] [address] [place] [address] [place] Glucose [Mass/Vol] 126 mg/dL High 70-100 [facility] Comment on above: Result Comment: [place] Glucose Reference Range is dependent on time and content of last meal. Glucose of more than 200 mg/dL in a nonstressed, ambulatory subject supports the diagnosis of Diabetes Mellitus. ADA recommended reference range Performed By: #### B MP, CBC, LIPASE, HEPATIC #### [facility] [address] Potassium [Moles/Vol] 3.2 mmol/L Low 3.5-5.1 [facility] Comment on above: Performed By: #### B MP, CBC, LIPASE, HEPATIC #### [facility] [address] Sodium [Moles/Vol] 134 mmol/L Low 136-146 [facility] Comment on above: Performed By: #### B MP, CBC, LIPASE, HEPATIC #### [facility] [address] Urea nitrogen [Mass/Vol] 7 mg/dL Low 9-23 [facility] Comment on above: Performed By: #### B MP, CBC, LIPASE, HEPATIC #### [facility] [address] [place] [address] [place] Basophils Auto (Bld) [#/Vol] Ordered By: Keith Griffith on 05-15-2022 Basophils (Bld) [#/Vol] 0.1 10*3/uL 0.0-0.2 [facility] Basophils/100 WBC Auto (Bld) Ordered By: Keith Griffith on 05-15-2022 Basophils/100 WBC (Bld) 0.6 % . [facility] Bilirubin Test strip Ql (U)O rdered By: Keith Griffith on 05-15-2022 Bilirubin Ql (U) Negative Negative [facility] CT abdomen pelvis w conon CT abdomen pelvis w con [facility] Main [place] [address] [place] [address] CT Scan Report Signed Patient: Gerry Victoria MR#: [id number] 10 : 1955 Acct:[id number] Age/Sex: 66 / F ADM Date: 05/15/22 Loc: ER Room: Type: [facility] ER Attending Dr: Copies to: Keith Griffith [...] No adnexal mass. Uterus has been removed.] Peritoneum/Retroperitoneum :Trace amount of free fluid seen within the [...] 3 years. ? Impression dictated by: Nicholas nAn Jr., D.OJack05/15/2022 6:59 PM Dictation Location: [place] [address] Transcribed By: [facility] 05/15/22 1875 Dictated By: Nicholas Ann Jr, DO 05/15/221854 Signed By: 05/15/221858 Normal [facility] Color Auto (U)Ordered By: George Griffith on 05-15-2022 Color (U) Yellow Yellow [facility] Complete Blood Count Auto Di ffon 05-15-2022 Basophils (Bld) [#/Vol] 0.1 10*3/uL Normal 0.0-0.2 [facility] Comment on above: Result Comment: PERF ORMED BY: [place] [address] PATHOLOGIST [employer] WILDER BOTELLO M.D. Performed By: #### B MP, CBC, LIPASE, HEPATIC #### [address] Basophils/100 WBC (Bld) 0.6 % Normal . [facility] Comment on above: Performed By: #### B MP, CBC, LIPASE, HEPATIC #### [facility] [address] [place] [address] Eosinophils (Bld) [#/Vol] 0.0 10*3/uL Normal 0.0-0.45 [facility] Comment on above: Performed By: #### B MP, CBC, LIPASE, HEPATIC #### [address] Eosinophils/100 WBC (Bld) 0.3 % Normal . [facility] Comment on above: Performed By: #### B MP, CBC, LIPASE, HEPATIC #### [facility] [address] [place] [address] Erythrocyte distribution width (RBC) [Ratio] 15.2 % Normal 11.9-15.3 [facility] Comment on above: Performed By: #### B MP, CBC, LIPASE, HEPATIC #### [address] Hematocrit (Bld) [Volume fraction] 42.8 % Normal 34.0-46.4 [facility] Comment on above: Performed By: #### B MP, CBC, LIPASE, HEPATIC #### [place] [id number] [place] Hemoglobin (Bld) [Mass/Vol] 14.1 g/dL Normal 11.8-15.4 [facility] Comment on above: Performed By: #### B MP, CBC, LIPASE, HEPATIC #### [address] Lymphocytes (Bld) [#/Vol] 0.9 10*3/uL Low 1.00-4.8 [facility] Comment on above: Performed By: #### B MP, CBC, LIPASE, HEPATIC #### [address] Lymphocytes/100 WBC (Bld) 8.6 % Normal . [facility] Comment on above: Performed By: #### B MP, CBC, LIPASE, HEPATIC #### [address] MCH (RBC) [Entitic mass] 27.4 pg Normal 24.7-34.3 [facility] Comment on above: Performed By: #### B MP, CBC, LIPASE, HEPATIC #### [address] MCV (RBC) [Entitic vol] 83.0 fL Normal 80-100 [facility] Comment on above: Performed By: #### B MP, CBC, LIPASE, HEPATIC #### [address] Mean Corpuscular HGB Conc 33.0 g/dL Normal 32.0-35.0 [facility] Comment on above: Performed By: #### B MP, CBC, LIPASE, HEPATIC #### [address] Monocytes (Bld) [#/Vol] 0.5 10*3/uL Normal 0.0-0.8 [facility] Comment on above: Performed By: #### B MP, CBC, LIPASE, HEPATIC #### [address] Monocytes/100 WBC (Bld) 15.42 % Normal 0.00-20.00 [facility] Comment on above: Performed By: #### B MP, CBC, LIPASE, HEPATIC #### [facility] [address] [place] [address] [place] Monocytes/100 WBC (Bld) 4.2 % Normal . [facility] Comment on above: Performed By: #### B MP, CBC, LIPASE, HEPATIC #### [facility] [address] Neutrophils (Bld) [#/Vol] 9.3 10*3/uL High 1.8-7.7 [facility] Comment on above: Performed By: #### B MP, CBC, LIPASE, HEPATIC #### [facility] [address] Neutrophils/100 WBC (Bld) 86.3 % Normal . [facility] Comment on above: Performed By: #### B MP, CBC, LIPASE, HEPATIC #### [facility] [address] NRBC% 0.1 /100{WBC} Normal 0-0.5 [facility] Comment on above: Performed By: #### B MP, CBC, LIPASE, HEPATIC #### [facility] [address] Platelet mean volume (Bld) [Entitic vol] 7.6 fL Normal 6.3-10.7 [facility] Comment on above: Performed By: #### B MP, CBC, LIPASE, HEPATIC #### [facility] [address] [place] [address] [place] Platelets (Bld) [#/Vol] 332 10*3/uL Normal 150-450 [facility] Comment on above: Performed By: #### B MP, CBC, LIPASE, HEPATIC #### [facility] [address] [place] [address] [place] RBC (Bld) [#/Vol] 5.16 10*6/uL High 3.60-5.00 [facility] Comment on above: Performed By: #### B MP, CBC, LIPASE, HEPATIC #### [facility] [address] [place] [address] [place] WBC (Bld) [#/Vol] 10.7 10*3/uL Normal 3.8-11.6 [facility] Comment on above: Performed By: #### B MP, CBC, LIPASE, HEPATIC #### [facility] [address] [place] [id number] [place] Creatine Kinaseon 05-15-2022 CK [Catalytic activity/Vol] 94 U/L Normal 22-269 [facility] Comment on above: Performed By: #### B MP, CBC, LIPASE, HEPATIC #### [facility] [address] Creatine kinase [Enzymatic a ctivity/volume] in Serum or PlasmaOrdered By: Keith Griffith on 05-15-2022 CK [Catalytic activity/Vol] 94 U/L [facility] Creatine kinase.MB [Mass/vol ume] in Serum or PlasmaOrdered By: Keith Griffith on 05-15-2022 CK.MB [Mass/Vol] 3.1 ng/mL 0.6-6.3 [facility] Creatinine Kinase MBon 05-15 CK.MB [Mass/Vol] 3.1 ng/mL Normal 0.6-6.3 [facility] Comment on above: Performed By: #### B MP, CBC, LIPASE, HEPATIC #### [facility] [address] CKMB Relative Index 3.2 % High 0.00-2.50 [facility] Comment on above: Performed By: #### B MP, CBC, LIPASE, HEPATIC #### [facility] [address] Creatinine and Glomerular fi ltration rate.predicted panel (S/P/Bld)Ordered By: Keith Griffith on 05-15-2022 Creatinine [Mass/Vol] 0.98 mg/dL 0.44-1.03 [facility] Direct bilirubin measurement Ordered By: Keith Griffith on 05-15-2022 Bilirubin.direct [Mass/Vol] 0.1 mg/dL 0.0-0.4 [facility] ECG 12 lead ECGon 05-15-2022 ECG 12 lead ECG [facility] Main [place] [id number] Electrocardiograph Report Signed Patient: Gerry Victoria MR#: [id number] 10 : 1955 Acct:[id number] Age/Sex: 66 / F ADM Date: 05/15/22 Loc: ER Room: Type: [facility] ER Attending Dr: Ordering Provider: Keith Griffith [...] AVF, V3-V6 Confirmed by Connie Cote DO ([id number]) on 05/16/2022 7:08:50 AM Referred By: Electronically Signed By:Connie Cote DO Transcribed By: MUS Signed By Connie Cote DO 0708 Normal [facility] ECG 12 [place] [address] Electrocardiograph Report Signed Patient: Gerry Victoria MR#: [id number] 10 : 1955 Acct:[id number] Age/Sex: 66 / F ADM Date: 05/15/22 Loc: ER Room: Type: [facility] ER Attending Dr: Ordering Provider: Keith Griffith [...] and V3-V6 Confirmed by Connie Cote DO ([id number]) on 05/16/2022 7:09:34 AM Referred By: Electronically Signed By:Connie Cote DO Transcribed By: NASRIN Signed By Connie Cote DO 0709 [facility] ECG 12 lead ECG [facility] Main [place] [id number] Electrocardiograph Report Signed Patient: Gerry Victoria MR#: [id number] 10 : 1955 Acct:[id number] Age/Sex: 66 / F ADM Date: 05/15/22 Loc: ER Room: Type: [facility] ER Attending Dr: Ordering Provider: Keith Griffith [...] sinus rhythm Confirmed by Connie Cote DO ([id number]) on 05/16/2022 7:09:47 AM Referred By: Electronically Signed By:Connie Cote DO Transcribed By: NASRIN Signed By Connie Cote DO 0709 [facility] Eosinophils Auto (Bld) [#/Vo l]Ordered By: Keith Griffith on 05-15-2022 Eosinophils (Bld) [#/Vol] 0.0 10*3/uL 0.0-0.45 [facility] Eosinophils/100 WBC Auto (Bl d)Ordered By: Keith Griffith on 05-15-2022 Eosinophils/100 WBC (Bld) 0.3 % . [facility] Erythrocyte distribution wid th Auto (RBC) [Ratio]Ordered By: Keith Griffith on 05-15-2022 Erythrocyte distribution width (RBC) [Ratio] 15.2 % 11.9-15.3 [facility] Estimated glomerular filtrat ion rate (GFR) non- AmericanOrdered By: Keith Griffith on 05-15-2022 GFR/1.73 sq M.predicted among non-blacks MDRD (S/P/Bld) [Vol rate/Area] 56 mL/Min [facility] Globulin Calc (S) [Mass/Vol] Ordered By: Keith Griffith on 05-15-2022 Globulin (S) [Mass/Vol] 3.6 g/dL [facility] Hematocrit Auto (Bld) [Volum e fraction]Ordered By: Keith Griffith on 05-15-2022 Hematocrit (Bld) [Volume fraction] 42.8 % 34.0-46.4 [facility] Hemoglobin [Mass/volume] in BloodOrdered By: Keith Griffith on 05-15-2022 Hemoglobin (Bld) [Mass/Vol] 14.1 g/dL 11.8-15.4 [facility] Hepatic Panelon 05-15-2022 Albumin [Mass/Vol] 4.4 g/dL Normal 3.2-5.5 [facility] Comment on above: Performed By: #### B MP, CBC, LIPASE, HEPATIC #### [facility] [address] Albumin/Globulin [Mass ratio] 1.2 {ratio} Normal [facility] Comment on above: Performed By: #### B MP, CBC, LIPASE, HEPATIC #### [facility] [address] ALP [Catalytic activity/Vol] 92 U/L Normal 32-92 [facility] Comment on above: Performed By: #### B MP, CBC, LIPASE, HEPATIC #### [facility] [address] [place] [address] [place] ALT [Catalytic activity/Vol] 17 U/L Normal 10-60 [facility] Comment on above: Performed By: #### B MP, CBC, LIPASE, HEPATIC #### [facility] [address] [place] [id number] [place] AST [Catalytic activity/Vol] 26 U/L Normal 10-42 [facility] Comment on above: Performed By: #### B MP, CBC, LIPASE, HEPATIC #### [facility] [address] [place] [address] [place] Bilirubin [Mass/Vol] 0.6 mg/dL Normal 0.3-1.2 [facility] Comment on above: Performed By: #### B MP, CBC, LIPASE, HEPATIC #### [facility] [address] Bilirubin,Indirect 0.5 mg/dL Normal [facility] Comment on above: Performed By: #### B MP, CBC, LIPASE, HEPATIC #### [facility] [address] Bilirubin.indirect [Mass/Vol] 0.1 mg/dL Normal 0.0-0.4 [facility] Comment on above: Performed By: #### B MP, CBC, LIPASE, HEPATIC #### [facility] [address] Globulin (S) [Mass/Vol] 3.6 g/dL Normal [facility] Comment on above: Performed By: #### B MP, CBC, LIPASE, HEPATIC #### [facility] [address] Protein [Mass/Vol] 8.0 g/dL High 6.1-7.9 [facility] Comment on above: Performed By: #### B MP, CBC, LIPASE, HEPATIC #### [facility] [address] Ketones Auto test strip (U) [Mass/Vol]Ordered By: Keith Griffith on 05-15-2022 Ketones (U) [Mass/Vol] Negative Negative [facility] - Chemistry and C hemistry - challengeOrdered By: Keith Griffith on 05-15-2022 Lipase [Catalytic activity/Vol] 23.0 U/L 22-51 [facility] Natriuretic peptide B (Bld) [Mass/Vol] 365.0 pg/mL 5-100 [facility] - CoagulationOrde red By: Keith Griffith on 05-15-2022 PT Coag (PPP) [Time] 10.7 s 9.0-12.9 [facility] Lactic Acidon 05-15-2022 Lactate [Moles/Vol] 1.5 mmol/L Normal 0.5-2.2 [facility] Comment on above: Result Comment: PERF ORMED BY: [facility] [address] [place] [address] PATHOLOGIST [employer] CONTACT LENS WILDER BOTELLO M.D. Performed By: #### B MP, CBC, LIPASE, HEPATIC #### [facility] [address] Leukocytes [#/volume] correc poly for nucleated erythrocytes in Blood by Automated counOrdered By: Keith Griffith on 05-15-2022 WBC corrected for nucl RBC Auto (Bld) [#/Vol] 10.7 10*3/uL 3.8-11.6 [facility] Lipaseon 05-15-2022 Lipase [Catalytic activity/Vol] 23.0 U/L Normal 22-51 [facility] Comment on above: Result Comment: PERF ORMED BY: [place] [address] PATHOLOGIST [employer] CONTACT LENS WILDER BOTELLO M.D. Performed By: #### B MP, CBC, LIPASE, HEPATIC #### [facility] [address] [place] [address] [place] Lymphocytes Auto (Bld) [#/Vo l]Ordered By: Keith Griffith on 05-15-2022 Lymphocytes (Bld) [#/Vol] 0.9 10*3/uL 1.00-4.8 [facility] Lymphocytes/100 WBC Auto (Bl d)Ordered By: Keith Griffith on 05-15-2022 Lymphocytes/100 WBC (Bld) 8.6 % . [facility] MCH Auto (RBC) [Entitic mass ]Ordered By: Keith Griffith on 05-15-2022 MCH (RBC) [Entitic mass] 27.4 pg 24.7-34.3 [facility] MCHC Auto (RBC) [Mass/Vol]Or dered By: Keith Griffith on 05-15-2022 MCHC (RBC) [Mass/Vol] 33.0 g/dL 32.0-35.0 [facility] MCV Auto (RBC) [Entitic vol] Ordered By: Keith Griffith on 05-15-2022 MCV (RBC) [Entitic vol] 83.0 fL 80-100 [facility] Monocyte distribution width [Entitic volume] in Blood by AutomatedOrdered By: Keith Griffith on 05-15-2022 Monocyte distribution width Auto (Bld) [Entitic vol] 15.42 % 0.00-20.00 [facility] Monocytes Auto (Bld) [#/Vol] Ordered By: Keith Griffith on 05-15-2022 Monocytes (Bld) [#/Vol] 0.5 10*3/uL 0.0-0.8 [facility] Monocytes/100 WBC Auto (Bld) Ordered By: Keith Griffith on 05-15-2022 Monocytes/100 WBC (Bld) 4.2 % . [facility] Neutrophils Auto (Bld) [#/Vo l]Ordered By: Keith Griffith on 05-15-2022 Neutrophils (Bld) [#/Vol] 9.3 10*3/uL 1.8-7.7 [facility] Neutrophils/100 WBC Auto (Bl d)Ordered By: Keith Griffith on 05-15-2022 Neutrophils/100 WBC (Bld) 86.3 % . [facility] Nitrite Test strip Ql (U)Ord ered By: Keith Griffith on 05-15-2022 Nitrite Ql (U) Negative Negative [facility] No Panel InformationOrdered By: Keith Griffith on 05-15-2022 Estimated GFR () > 60 mL/Min [facility] Comment on above: GFR estimated refere nce range: According to KDOQI guidelines, <60 ml/min/1.73m2 is sufficient to diagnose a patient with chronic kidney disease. Pharmacy Creatinine Clearance (Chem 51.97 [facility] Nucleated erythrocytes [Pres ence] in Blood by Automated countOrdered By: Keith Griffith on 05-15-2022 Nucleated RBC Auto Ql (Bld) 0.1 /100{WBC} 0-0.5 [facility] Partial Thromboplastin Timeo n 05-15-2022 aPTT Coag (Bld) [Time] 29.6 s Normal 25.1-36.5 [facility] Comment on above: Result Comment: PERF ORMED BY: [facility] [address] [place] [id number] PATHOLOGIST [employer]UT[employer] CONTACT LENS WILDER BOTELLO M.D. Performed By: #### B MP, CBC, LIPASE, HEPATIC #### [facility] [address] Platelet mean volume Auto (B ld) [Entitic vol]Ordered By: Keith Griffith on 05-15-2022 Platelet mean volume (Bld) [Entitic vol] 7.6 fL 6.3-10.7 [facility] Platelet poor plasma interna tional normalized ratio (INR) by coagulation assay (relatOrdered By: Keith Griffith on 05-15-2022 INR Coag (PPP) [Relative time] 0.9 {INR} [facility] Comment on above: INR Therapeutic Rang [...] 05-15-2022 Platelets (Bld) [#/Vol] 332 10*3/uL 150-450 [facility] Protein Auto test strip (U) [Mass/Vol]Ordered By: Keith Griffith on 05-15-2022 Protein (U) [Mass/Vol] Negative Negative [facility] Protein [Mass/volume] in Ser um or PlasmaOrdered By: Keith Griffith on 05-15-2022 Protein [Mass/Vol] 8.0 g/dL 6.1-7.9 [facility] Prothrombin Time INRon 05-15 INR Coag (PPP) [Relative time] 0.9 {INR} Normal [facility] Comment on above: Result Comment: INR [...] valves: 3 - 4.5 Performed By: #### B MP, CBC, LIPASE, HEPATIC #### [facility] [address] PT Coag (PPP) [Time] 10.7 s Normal 9.0-12.9 [facility] Comment on above: Performed By: #### B MP, CBC, LIPASE, HEPATIC #### [facility] [address] RBC Auto (Bld) [#/Vol]Ordere d By: Keith Griffith on 05-15-2022 RBC (Bld) [#/Vol] 5.16 10*6/uL 3.60-5.00 [facility] Serum or plasma alanine kirkpatrick otransferase measurement without P-5'-P (enzymatic activiOrdered By: Keith Griffith on 05-15-2022 ALT No additional P-5'-P [Catalytic activity/Vol] 17 U/L 10-60 [facility] Serum or plasma albumin/glob ulin mass ratioOrdered By: Keith Griffith on 05-15-2022 Albumin/Globulin [Mass ratio] 1.2 {ratio} [facility] Serum or plasma alkaline kami sphatase measurement (enzymatic activity/volume)Ordered By: Keith Griffith on 05-15-2022 ALP [Catalytic activity/Vol] 92 U/L 32-92 [facility] Serum or plasma anion gap de terminationOrdered By: Keith Griffith on 05-15-2022 Anion gap [Moles/Vol] 13.5 mmol/L 6.0-15.0 [facility] Serum or plasma aspartate am inotransferase measurement (enzymatic activity/volume)Ordered By: Keith Griffith on 05-15-2022 AST [Catalytic activity/Vol] 26 U/L 10-42 [facility] Serum or plasma calcium ventura urement (mass/volume)Ordered By: Keith Griffith on 05-15-2022 Calcium [Mass/Vol] 8.9 mg/dL 8.2-10.2 [facility] Serum or plasma chloride alfie surement (moles/volume)Ordered By: Keith Griffith on 05-15-2022 Chloride [Moles/Vol] 98 mmol/L 95-114 [facility] Serum or plasma creatine kin ase MB (CKMB)/total creatine kinase (CK) ratio by calculaOrdered By: Keith Griffith on 05-15-2022 CK.MB Calc [Catalytic fraction] 3.2 % 0.00-2.50 [facility] Serum or plasma glucose ventura urement (mass/volume)Ordered By: Keith Griffith on 05-15-2022 Glucose [Mass/Vol] 126 mg/dL 70-100 [facility] Comment on above: ADA recommended refe rence rangeRandom Glucose Reference Range is dependent on time and content of last meal. Glucose of more than 200 mg/dL in a nonstressed, ambulatory subject supports the diagnosis of Diabetes Mellitus. Serum or plasma non-glucuron idated bilirubin measurement (mass/volume)Ordered By: Keith Griffith on 05-15-2022 Bilirubin.indirect [Mass/Vol] 0.5 mg/dL [facility] Serum or plasma potassium me asurement (moles/volume)Ordered By: Keith Griffith on 05-15-2022 Potassium [Moles/Vol] 3.2 mmol/L 3.5-5.1 [facility] Serum or plasma sodium measu rement (moles/volume)Ordered By: Keith Griffith on 05-15-2022 Sodium [Moles/Vol] 134 mmol/L 136-146 [facility] Serum or plasma total biliru bin measurement (mass/volume)Ordered By: Keith Griffith 05-15-2022 Bilirubin [Mass/Vol] 0.6 mg/dL 0.3-1.2 [facility] Serum or plasma total carbon dioxide measurement (moles/volume)Ordered By: Keith Griffith on 05-15-2022 CO2 [Moles/Vol] 25.7 mmol/L 22.0-30.0 [facility] Serum or plasma urea nitroge n measurement (mass/volume)Ordered By: Keith Griffith on 05-15-2022 Urea nitrogen [Mass/Vol] 7 mg/dL 9-23 [facility] Specific gravity Auto test s trip (U) [Rel density]Ordered By: Keith Griffith on 05-15-2022 Specific gravity (U) [Rel density] 1.045 1.001-1.03 0 [facility] Troponin I High Sensitivityo n 05-15-2022 Troponin I High Sensitivity 381 pg/mL Off scale high 0-15 [facility] Comment on above: Result Comment: Crit ical value result called at 2152 on 05/15/22 PERFORMED BY: [place] [address] PATHOLOGIST [employer] CONTACT LENS WILDER BOTELLO M.D. Performed By: #### H S TROP #### [address] Troponin I High Sensitivity 139 pg/mL Off scale high 0-15 [facility] Comment on above: Result Comment: Crit ical value result called at 1908 on 05/15/22 PERFORMED BY: [place] [address] PATHOLOGIST [employer]UT[employer] CONTACT LENS WILDER BOTELLO M.D. Performed By: #### B MP, CBC, LIPASE, HEPATIC #### [place] [id number] [facility] Troponin I.cardiac [Mass/vol ume] in Serum or Plasma by High sensitivity methodOrdered By: Keith Griffith on 05-15-2022 Troponin I.cardiac High sensitivity method [Mass/Vol] 381 pg/mL 0-15 [facility] Comment on above: Critical valueresult calledat 2152 on 05/15/22 Urinalysison 05-15-2022 Appearance (U) Clear Normal Clear [facility] Comment on above: Order Comment: Name Collection Type:: Straight Catheter Performed By: #### B MP, CBC, LIPASE, HEPATIC #### [address] [address] [place] Bilirubin,Urine Negative Normal Negative [facility] Comment on above: Order Comment: Name Collection Type:: Straight Catheter Performed By: #### B MP, CBC, LIPASE, HEPATIC #### [facility] [address] [place] [address] [place] Color (U) Yellow Normal Yellow [facility] Comment on above: Order Comment: Name Collection Type:: Straight Catheter Performed By: #### B MP, CBC, LIPASE, HEPATIC #### [facility] [address] [place] [address] [place] Glucose Ql (U) Normal Normal Normal [facility] Comment on above: Order Comment: Name Collection Type:: Straight Catheter Performed By: #### B MP, CBC, LIPASE, HEPATIC #### [address] Ketones Ql (U) Negative Normal Negative [facility] Comment on above: Order Comment: Name Collection Type:: Straight Catheter Performed By: #### B MP, CBC, LIPASE, HEPATIC #### [address] Leukocyte esterase Test strip Ql (U) Negative Normal Negative [facility] Comment on above: Order Comment: Name Collection Type:: Straight Catheter Performed By: #### B MP, CBC, LIPASE, HEPATIC #### [address] Nitrite,Urine Negative Normal Negative [facility] Comment on above: Order Comment: Name Collection Type:: Straight Catheter Performed By: #### B MP, CBC, LIPASE, HEPATIC #### [address] Occult Blood,Urine Negative Normal Negative [facility] Comment on above: Order Comment: Name Collection Type:: Straight Catheter Result Comment: PERF ORMED BY: [place] [address] PATHOLOGIST [employer] CUT[employer] CONTACT LENS WILDER BOTELLO M.D. Performed By: #### B MP, CBC, LIPASE, HEPATIC #### [address] pH (U) 7.0 [pH] Normal 5.0-9.0 [facility] Comment on above: Order Comment: Name Collection Type:: Straight Catheter Performed By: #### B MP, CBC, LIPASE, HEPATIC #### [address] Protein,Urine Negative Normal Negative [facility] Comment on above: Order Comment: Name Collection Type:: Straight Catheter Performed By: #### B MP, CBC, LIPASE, HEPATIC #### [facility] [address] Specificy [place],Urine 1.045 High 1.001-1.03 0 [facility] Comment on above: Order Comment: Name Collection Type:: Straight Catheter Performed By: #### B MP, CBC, LIPASE, HEPATIC #### [facility] [address] [place] [address] [place] Urobilinogen,Urine Normal Normal Normal [facility] Comment on above: Order Comment: Name Collection Type:: Straight Catheter Performed By: #### B MP, CBC, LIPASE, HEPATIC #### [facility] [address] Urine clarity by refractomet ry automatedOrdered By: Keith Griffith on 05-15-2022 Clarity Refractometry automated (U) Clear Clear [facility] Urine glucose measurement by automated test strip (mass/volume)Ordered By: Keith Griffith on 05-15-2022 Glucose Auto test strip (U) [Mass/Vol] Normal mg/dL Normal [facility] Urine hemoglobin detection b y automated test stripOrdered By: Keith Griffith on 05-15-2022 Hemoglobin Auto test strip Ql (U) Negative Negative [facility] Urine lactic acid measuremen tOrdered By: Keith Griffith on 05-15-2022 Lactate (U) [Moles/Vol] 1.5 mmol/L 0.5-2.2 [facility] Urine leukocyte esterase det ection by automated test stripOrdered By: Keith Griffith on 05-15-2022 Leukocyte esterase Auto test strip Ql (U) Negative Negative [facility] Urobilinogen Auto test strip (U) [Mass/Vol]Ordered By: Keith Griffith on 05-15-2022 Urobilinogen (U) [Mass/Vol] Normal mg/dL Normal [facility] WBC Auto (Bld) [#/Vol]Ordere d By: Keith Griffith on 05-15-2022 WBC (Bld) [#/Vol] 10.7 10*3/uL 3.8-11.6 [facility] XR chest 1V portableon 05-15 XR chest 1V portable [facility] [place] [id number] XRay Report Signed Patient: Gerry Victoria MR#: [id number] 10 : 1955 Acct:[id number] Age/Sex: 66 / F ADM Date: 05/15/22 [...] FINDINGS Impression dictated by: Nicholas Ann Jr., D.OJack05/15/2022 5:33 PM Dictation Location: [place] [address] Transcribed By: [facility] 05/15/22 1733 Dictated By: Nicholas Ann Jr, DO 05/15/22 1732 Signed By: 05/15/22 173 Normal [facility] pH Auto test strip (U)Ordere d By: Keith Griffith on 05-15-2022 pH (U) 7.0 [pH] 5.0-9.0 [facility] XR wrist LT min 3V*on 2022 XR wrist LT min 3V* [place] [id number] XRay Report Signed Patient: Gerry Victoria MR#: [id number] 10 : 1955 Acct:[id number] Age/Sex: 66 / F ADM Date: 04/06/22 Loc: ICXD Room: Type: REG CLI Attending Dr: Ephraim Casanova [employer] WATCH[employer] Copies to: Ephraim Casanova APRN - ER EPHRAIM CASANOVA RN, MSN Ordering Provider: EPHRAIM CASANOVA RN, MSN Date of Service: 04/06/22 XR/XR wrist LT min 3V*: radiculopathy;Left wrist pain ([id number]) XR/XR cervical spine 5V*: radiculopathy;Cervical radiculopathy CERVICAL [...] PROCESS. Impression dictated by: Nicholas Ann Jr., D.OJack04/06/2022 4:20 PM Dictation Location: [place] [address] Transcribed By: [facility] 04/06/22 1620 Dictated By: Nicholas Ann Jr, DO 04/06/22 1618 Signed By: 04/06/22 1620 Normal [facility] Basophils Auto (Bld) [#/Vol] Ordered By: Ward Zuniga on 01-03-2022 Basophils (Bld) [#/Vol] 0.0 10*3/uL 0.0-0.2 [facility] Basophils/100 WBC Auto (Bld) Ordered By: Ward Zuniga on 01-03-2022 Basophils/100 WBC (Bld) 0.9 % . [facility] Blood hemoglobin measurement (mass/volume)Ordered By: Ward Zuniga on 01-03-2022 Hemoglobin (Bld) [Mass/Vol] 11.2 g/dL 11.8-15.4 [facility] Blood leukocytes automated c ount (number/volume)Ordered By: Ward Zuniga on 01-03-2022 WBC (Bld) [#/Vol] 4.8 10*3/uL 4.5-11.0 [facility] Body fluid albumin measureme nt (mass/volume)Ordered By: Ward Zuniga on 01-03-2022 Albumin (Body fld) [Mass/Vol] 3.6 g/dL 3.2-5.5 [facility] Cholesterol [Mass/volume] in Serum or PlasmaOrdered By: Ward Zuniga on 01-03-2022 Cholesterol [Mass/Vol] 186 mg/dL 140-200 [facility] Comment on above: Chol less than 200 m g/dl low riskChol 201-239 mg/dl borderline riskChol 240 mg/dl and greater high risk Cholesterol in LDL Calc [Mas s/Vol]Ordered By: Ward Zuniga on 01-03-2022 Cholesterol in LDL [Mass/Vol] 117 mg/dL 0-100 [facility] Comment on above: LDL ATP III CLASSIFI CATIONLDL less than 100 mg/dL OptimalLDL 100-129 mg/dL Near or above optimalLDL 130-159 mg/dL Borderline highLDL 160-189 mg/dL HighLDL greater than 189 mg/dL Very high Cholesterol in VLDL Calc [Ma ss/Vol]Ordered By: Ward Zuniga on 01-03-2022 Cholesterol in VLDL [Mass/Vol] 18 mg/dL [facility] Creatinine and Glomerular fi ltration rate.predicted panel (S/P/Bld)Ordered By: Ward Zuniga on 01-03-2022 Creatinine [Mass/Vol] 0.91 mg/dL 0.44-1.03 [facility] Eosinophils Auto (Bld) [#/Vo l]Ordered By: Ward Zuniga on 01-03-2022 Eosinophils (Bld) [#/Vol] 0.1 10*3/uL 0.0-0.45 [facility] Eosinophils/100 WBC Auto (Bl d)Ordered By: Ward Zuniga on 01-03-2022 Eosinophils/100 WBC (Bld) 2.6 % . [facility] Erythrocyte distribution wid th Auto (RBC) [Ratio]Ordered By: Ward Zuniga on 01-03-2022 Erythrocyte distribution width (RBC) [Ratio] 14.4 % 11.9-15.3 [facility] Estimated glomerular filtrat ion rate (GFR) non- AmericanOrdered By: Ward Zuniga on 01-03-2022 GFR/1.73 sq M.predicted among non-blacks MDRD (S/P/Bld) [Vol rate/Area] > 60 mL/Min [facility] Globulin Calc (S) [Mass/Vol] Ordered By: Ward Zuniga on 01-03-2022 Globulin (S) [Mass/Vol] 2.5 g/dL [facility] Hematocrit Auto (Bld) [Volum e fraction]Ordered By: Ward Zuniga on 01-03-2022 Hematocrit (Bld) [Volume fraction] 34.5 % 34.0-46.4 [facility] - Hematology and Cell countsOrdered By: Ward Zuniga on 01-03-2022 Nucleated RBC/100 WBC (Bld) [Ratio] 0.1 % 0-0.5 [facility] Lymphocytes Auto (Bld) [#/Vo l]Ordered By: Ward Zuniga on 01-03-2022 Lymphocytes (Bld) [#/Vol] 1.6 10*3/uL 1.00-4.8 [facility] Lymphocytes/100 WBC Auto (Bl d)Ordered By: Ward Zuniga on 01-03-2022 Lymphocytes/100 WBC (Bld) 33.6 % . [facility] MCH Auto (RBC) [Entitic mass ]Ordered By: Ward Zuniga on 01-03-2022 MCH (RBC) [Entitic mass] 26.9 pg 24.7-34.3 [facility] MCHC Auto (RBC) [Mass/Vol]Or dered By: Ward Zuniga on 01-03-2022 MCHC (RBC) [Mass/Vol] 32.6 g/dL 32.0-35.0 [facility] MCV Auto (RBC) [Entitic vol] Ordered By: Ward Zuniga on 01-03-2022 MCV (RBC) [Entitic vol] 82.4 fL 80-100 [facility] Monocytes Auto (Bld) [#/Vol] Ordered By: Ward Zuniga on 01-03-2022 Monocytes (Bld) [#/Vol] 0.4 10*3/uL 0.0-0.8 [facility] Monocytes/100 WBC Auto (Bld) Ordered By: Ward Zuniga on 01-03-2022 Monocytes/100 WBC (Bld) 7.5 % . [facility] Neutrophils Auto (Bld) [#/Vo l]Ordered By: Ward Zuniga on 01-03-2022 Neutrophils (Bld) [#/Vol] 2.6 10*3/uL 1.8-7.7 [facility] Neutrophils/100 WBC Auto (Bl d)Ordered By: Ward Zuniga on 01-03-2022 Neutrophils/100 WBC (Bld) 55.4 % . [facility] No Panel InformationOrdered By: Ward Zuniga on 01-03-2022 Estimated GFR () > 60 mL/Min [facility] Comment on above: GFR estimated refere nce range: According to KDOQI guidelines, <60 ml/min/1.73m2 is sufficient to diagnose a patient with chronic kidney disease. Pharmacy Creatinine Clearance (Chem N/A [facility] Platelet mean volume Auto (B ld) [Entitic vol]Ordered By: Ward Zuniga on 01-03-2022 Platelet mean volume (Bld) [Entitic vol] 7.5 fL 6.3-10.7 [facility] Platelets Auto (Bld) [#/Vol] Ordered By: Ward Zuniga on 01-03-2022 Platelets (Bld) [#/Vol] 288 10*3/uL 150-450 [facility] Protein [Mass/volume] in Ser um or PlasmaOrdered By: Ward Zuniga on 01-03-2022 Protein [Mass/Vol] 6.1 g/dL 6.1-7.9 [facility] RBC Auto (Bld) [#/Vol]Ordere d By: Ward Zuniga on 01-03-2022 RBC (Bld) [#/Vol] 4.18 10*6/uL 3.60-5.00 [facility] Serum or plasma alanine kirkpatrick otransferase measurement without P-5'-P (enzymatic activiOrdered By: Ward Zuniga on 01-03-2022 ALT No additional P-5'-P [Catalytic activity/Vol] 12 U/L 10-60 [facility] Serum or plasma albumin/glob ulin mass ratioOrdered By: Ward Zuniga on 01-03-2022 Albumin/Globulin [Mass ratio] 1.4 {ratio} [facility] Serum or plasma alkaline kami sphatase measurement (enzymatic activity/volume)Ordered By: Ward Zuniga on 01-03-2022 ALP [Catalytic activity/Vol] 65 U/L 32-92 [facility] Serum or plasma anion gap de terminationOrdered By: Ward Zuniga on 01-03-2022 Anion gap [Moles/Vol] 15.0 mmol/L 6.0-15.0 [facility] Serum or plasma aspartate am inotransferase measurement (enzymatic activity/volume)Ordered By: Ward Zuniga on 01-03-2022 AST [Catalytic activity/Vol] 16 U/L 10-42 [facility] Serum or plasma calcium ventura urement (mass/volume)Ordered By: Ward Zuniga on 01-03-2022 Calcium [Mass/Vol] 8.9 mg/dL 8.2-10.2 [facility] Serum or plasma chloride alfie surement (moles/volume)Ordered By: Ward Zuniga on 01-03-2022 Chloride [Moles/Vol] 101 mmol/L 95-114 [facility] Serum or plasma glucose ventura urement (mass/volume)Ordered By: Ward Zuniga on 01-03-2022 Glucose [Mass/Vol] 86 mg/dL 70-100 [facility] Comment on above: ADA recommended refe rence rangeRandom Glucose Reference Range is dependent on time and content of last meal. Glucose of more than 200 mg/dL in a nonstressed, ambulatory subject supports the diagnosis of Diabetes Mellitus. Serum or plasma high density lipoprotein (HDL) cholesterol measurementOrdered By: Ward Zuniga on 01-03-2022 Cholesterol in HDL [Mass/Vol] 51 mg/dL 35-85 [facility] Comment on above: HDL CHOL ATP-III CLA SSIFICATION Cardiovascular RiskHDL > or equal to 60 mg/dL LOWHDL < 40 mg/dL HIGH Serum or plasma potassium me asurement (moles/volume)Ordered By: Ward Zuniga on 01-03-2022 Potassium [Moles/Vol] 4.0 mmol/L 3.5-5.1 [facility] Serum or plasma sodium measu rement (moles/volume)Ordered By: Ward Zuniga on 01-03-2022 Sodium [Moles/Vol] 140 mmol/L 136-146 [facility] Serum or plasma total biliru bin measurement (mass/volume)Ordered By: Ward Zuniga on 01-03-2022 Bilirubin [Mass/Vol] 0.5 mg/dL 0.3-1.2 [facility] Serum or plasma total carbon dioxide measurement (moles/volume)Ordered By: Ward Zuniga on 01-03-2022 CO2 [Moles/Vol] 28.0 mmol/L 22.0-30.0 [facility] Serum or plasma total choles terol/high density lipoprotein (HDL) cholesterol mass ratOrdered By: Ward Zuniga on 01-03-2022 Cholesterol.total/Chol esterol in HDL [Mass ratio] 3.6 {ratio} <5.0 [facility] Serum or plasma urea nitroge n measurement (mass/volume)Ordered By: Ward Zuniga on 01-03-2022 Urea nitrogen [Mass/Vol] 6 mg/dL 9- [facility] TSH DL <= 0.005 mIU/L QnOrde red By: Ward Zuniga on 01-03-2022 TSH Qn 0.17 m[IU]/L 0.45-5.33 [facility] [facility] Tr[facility]ide [Mass/volume] i n Serum or PlasmaOrdered By: Ward Zuniga on 01-03-2022 Triglyceride [Mass/Vol] 91 mg/dL 35-149 [facility] Comment on above: TRIG ATP III CLASSIF ICATIONTRIG less than 150 mg/dL NormalTRIG 150-199 mg/dL Borderline highTRIG 200-500 mg/dL High TRIG greater than 500 mg/dL Very highStandard traceable to the Center for Disease Conrtrol and Prevention (CDC) test method. COVID-19 Positive/NegativeOr dered By: Molina Villanueva on 12-15-2021 SARS-CoV-2 (COVID-19) N gene ROXANA+probe Ql (Resp) Negative Negative [facility] Comment on above: Testing for SARS-CoV -2 by RT-PCR This test was developed and its performance characteristics determined by [employer] ([employer] and validated at the [facility]. This test has not been FDA [...] and its performance characteristics determined by [employer] ([employer] and validated at the [facility]. This test has not been FDA [...] 07-05-2021 BUN/CREA 11 NOT APPLICABLE Normal 6-22 [facility] Lien Searcher Comment on above: Order Comment: [facility] Testing performed at: [facility], [facility], [address] [place] [address], [address] [place] [address], [id number], Corrugator Machine Operator: Alli Parker MD [facility] Collection Date/Time: [id number] [facility] Results Received Date/Time: [id number] [facility] Reported Date/Time: [id number] Performed By: #### T , [id number] #### [facility] Default [address] [place] [address] Calcium [Mass/Vol] 8.9 mg/dL Normal 8.6-10.4 [facility] Specialist Comment on above: Order Comment: [facility] Testing performed at: [place], [employer] [facility], [address] [place] [address], [address] [place] [address], [address] [place] [address], Cor[employer]ator Machine Operator: Alli Parker MD [facility] Collection Date/Time: [facility] Results Received Date/Time: [facility] Reported Date/Time: Performed By: #### T LUIS, [id number] #### [facility] Default [address] [place] [address] Chloride [Moles/Vol] 101 mmol/L Normal 98-110 [facility] Specialist Comment on above: Order Comment: [facility] Testing performed at: [place], [employer] [facility], [address] [place] [address], [address] [place] [address], [address] [place] [address], Corrugator Machine Operator: Alli Parker MD [facility] Collection Date/Time: [facility] Results Received Date/Time: [facility] Reported Date/Time: Performed By: #### T LUIS, [id number] #### [facility] [address] [place] [address] CO2 [Moles/Vol] 30 mmol/L Normal 20-32 [facility] Specialist Comment on above: Order Comment: [facility] Testing performed at: [place], [employer] [facility], [address] [place] [address], [address] [place] [address], [address] [place] [address], Cor[employer]ator Machine Operator: Alli Parker MD [facility] Collection Date/Time: [facility] Results Received Date/Time: [facility] Reported Date/Time: Performed By: #### T LUIS, [id number] #### [facility] [address] [place] [address] Creatinine [Mass/Vol] 0.94 mg/dL Normal 0.50-0.99 [facility] Specialist Comment on above: Order Comment: [facility] Testing performed at: [place], [employer] [facility], [address] [place] [address], [address] [place] [address], [address] [place] [address], Corrugator Machine Operator: Alli Parker MD [facility] Collection Date/Time: [facility] Results Received Date/Time: [facility] Reported Date/Time: Result Comment: For patients >49 years of age, the reference limit for Creatinine is approximately 13% higher for people identified as -Ukrainian. Performed By: #### T LUIS, [id number] #### [facility] Default [address] [place] [address] eGFRAA ([facility]) 73 mL/min/1.73m2 Normal > OR = 60 [facility] Lien Searcher Comment on above: Order Comment: [facility] Testing performed at: [place], [employer] [facility], [facility], [address] [place] [address], [address] [place] [address], Corrugator Machine Operator: Alli Parker MD [facility] Collection Date/Time: [facility] Results Received Date/Time: [facility] Reported Date/Time: Performed By: #### T LUIS, [id number] #### [facility] Default [address] [place] [address] eGFRNAA ([facility]) 63 mL/min/1.73m2 Normal > OR = 60 [facility] Lien Searcher Comment on above: Order Comment: [facility] Testing performed at: [place], [employer] [facility], [address] [place] [address], [address] [place] [address], [address] [place] [address], Corrugator Machine Operator: Alli Parker MD [facility] Collection Date/Time: [facility] Results Received Date/Time: [facility] Reported Date/Time: Performed By: #### T LUIS, [id number] #### [facility] [address] [place] [address] Glucose [Mass/Vol] 82 mg/dL Normal 65-99 [facility] Lien Searcher Comment on above: Order Comment: [facility] Testing performed at: [place], [employer] [facility], [facility], [address] [place] [address], [address] [place] [address], Corrugator Machine Operator: Alli Parker MD [facility] Collection Date/Time: [facility] Results Received Date/Time: [facility] Reported Date/Time: Result Comment: Fasting reference interval Performed By: #### Cornelius SMITH, [id number] #### [facility] Default [address] [place] [address] Potassium [Moles/Vol] 4.3 mmol/L Normal 3.5-5.3 [facility] Specialist Comment on above: Order Comment: [facility] Testing performed at: [place], [employer] [facility], [address] [place] [address], [address] [place] [address], [address] [place] [address], Corrugator Machine Operator: Alli Parker MD [facility] Collection Date/Time: [facility] Results Received Date/Time: [facility] Reported Date/Time: Performed By: #### Cornelius SMITH, [id number] #### [facility] [address] [place] [address] Sodium [Moles/Vol] 138 mmol/L Normal 135-146 [facility] Specialist Comment on above: Order Comment: [facility] Testing performed at: [place], [employer] [facility], [address] [place] [address], [address] [place] [address], [address] [place] [address], Corrugator Machine Operator: Alli Parker MD [facility] Collection Date/Time: [facility] Results Received Date/Time: [facility] Reported Date/Time: Performed By: #### Cornelius SMITH, [id number] #### [facility] [address] [place] [address] Urea nitrogen [Mass/Vol] 10 mg/dL Normal 7-25 [facility] Lien Searcher Comment on above: Order Comment: [facility] Testing performed at: [employer] [facility], [address] [place] [address], [address] [place] [address], [address] [place] [address], Corrugator Machine Operator: Alli Parker MD [facility] Collection Date/Time: [facility] Results Received Date/Time: [facility] Reported Date/Time: Performed By: #### T LUIS, [id number] #### [facility] [address] [place] [address] TSHon 07-05-2021 TSH Qn 0.07 m[IU]/L Low 0.40-4.50 [facility] Lien Searcher Comment on above: Order Comment: [facility] Testing performed at: Q, [facility], [address], [address] [place], [address], Corrugator Machine Operator: Alli Parker MD [facility] Collection Date/Time: [id number] [facility] Results Received Date/Time: [id number] [facility] Reported Date/Time: [id number] Performed By: #### T LUIS, [id number] #### [facility] [address] [place] [address] Screening Mammogram, Bilater rebecca 03-02-2021 Screening Mammogram, Bilateral EXAMINATION: Screening Mammogram [...] VERY IMPORTANT TO YOUR HEALTH. THE CURRENT [employer]LEGE OF RADIOLOGY AND NATIONAL COMPREHENSIVE CANCER NETWORK GUIDELINES RECOMMEND ANNUAL MAMMOGRAPHY BEGINNING AT AGE 40. THIS FACILITY UTILIZES A REMINDER SYSTEM TO ENSURE ALL PATIENTS RECEIVE A REMINDER NOTIFICATION AT THE APPROPRIATE TIME BASED ON THE RECOMMENDATIONS OF THIS EXAM. 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 ACCREDITED BY THE [facility] AND FDA. Report reported and signed by Eladia Aviles on 03/03/2021 0945 Normal [facility] Lien Searcher COVID-19 Positive/Negativeon 07-13-2020 SARS-CoV-2 (COVID-19) N gene ROXANA+probe Ql (Resp) Negative Negative [facility] Comment on above: Reference: NegativeT esting for SARS-CoV-2 by RT-PCRThis test was developed and its performance characteristics determined by [employer] ([employer] and validated at the [facility]. This test has not been FDA [...] d Antimicrobial susceptibilityon 07-13-2020 SARS-CoV-2 (COVID-19) RNA ROXANA+probe Ql (Unsp spec) N/A [facility] Albumin [Mass/volume] in Ser um or Plasmaon 06-30-2020 Albumin [Mass/Vol] 3.6 g/dL 3.2-5.5 [facility] Basophils Auto (Bld) [#/Vol] on 06-30-2020 Basophils (Bld) [#/Vol] 0.0 10*3/uL 0.0-0.2 [facility] Basophils/100 WBC Auto (Bld) on 06-30-2020 Basophils/100 WBC (Bld) 0.8 % [facility] Bilirubin Auto test strip Ql (U)on 06-30-2020 Bilirubin Ql (U) Negative Negative [facility] Blood hemoglobin measurement (mass/volume)on 06-30-2020 Hemoglobin (Bld) [Mass/Vol] 12.1 g/dL 11.8-15.4 [facility] Blood leukocytes automated c ount (number/volume)on 06-30-2020 WBC (Bld) [#/Vol] 4.6 10*3/uL 4.5-11.0 [facility] Cholesterol [Mass/volume] in Serum or Plasmaon 06-30-2020 Cholesterol [Mass/Vol] 202 mg/dL 140-[address] [facility] Comment on above: Chol less than 200 m g/dl low riskChol 201-239 mg/dl borderline riskChol 240 mg/dl and greater high risk Cholesterol in LDL Calc [Mas s/Vol]on 06-30-2020 Cholesterol in LDL [Mass/Vol] 134 mg/dL 0-100 [facility] Comment on above: LDL ATP III CLASSIFI CATIONLDL less than 100 mg/dL OptimalLDL 100-129 mg/dL Near or above optimalLDL 130-159 mg/dL Borderline highLDL 160-189 mg/dL HighLDL greater than 189 mg/dL Very high Cholesterol in VLDL Calc [Ma ss/Vol]on 06-30-2020 Cholesterol in VLDL [Mass/Vol] 25 mg/dL [facility] Creatinine and Glomerular fi ltration rate.predicted panel (S/P/Bld)on 06-30-2020 Creatinine [Mass/Vol] 0.84 mg/dL 0.44-1.03 [facility] Eosinophils Auto (Bld) [#/Vo l]on 06-30-2020 Eosinophils (Bld) [#/Vol] 0.1 10*3/uL 0.0-0.45 [facility] Eosinophils/100 WBC Auto (Bl d)on 06-30-2020 Eosinophils/100 WBC (Bld) 2.5 % [facility] Erythrocyte distribution wid th Auto (RBC) [Ratio]on 06-30-2020 Erythrocyte distribution width (RBC) [Ratio] 15.4 % 11.9-15.3 [facility] GFR/1.73 sq M.predicted anthony g non-blacks MDRD (S/P/Bld) [Vol rate/Area]on 06-30-2020 GFR/1.73 sq M predicted among non-blacks MDRD (S/P/Bld) [Vol rate/Area] > 60 mL/Min [facility] Globulin Calc (S) [Mass/Vol] on 06-30-2020 Globulin (S) [Mass/Vol] 2.3 g/dL [facility] Hematocrit Auto (Bld) [Volum e fraction]on 06-30-2020 Hematocrit (Bld) [Volume fraction] 35.9 % 34.0-46.4 [facility] Ketones Auto test strip (U) [Mass/Vol]on 06-30-2020 Ketones (U) [Mass/Vol] Negative Negative [facility] Lymphocytes Auto (Bld) [#/Vo l]on 06-30-2020 Lymphocytes (Bld) [#/Vol] 1.4 10*3/uL 1.00-4.8 [facility] Lymphocytes/100 WBC Auto (Bl d)on 06-30-2020 Lymphocytes/100 WBC (Bld) 31.2 % [facility] MCH Auto (RBC) [Entitic mass ]on 06-30-2020 MCH (RBC) [Entitic mass] 28.9 pg 24.7-34.3 [facility] MCHC Auto (RBC) [Mass/Vol]on 06-30-2020 MCHC (RBC) [Mass/Vol] 33.7 g/dL 32.0-35.0 [facility] MCV Auto (RBC) [Entitic vol] on 06-30-2020 MCV (RBC) [Entitic vol] 85.9 fL 80-100 [facility] Monocytes Auto (Bld) [#/Vol] on 06-30-2020 Monocytes (Bld) [#/Vol] 0.3 10*3/uL 0.0-0.8 [facility] Monocytes/100 WBC Auto (Bld) on 06-30-2020 Monocytes/100 WBC (Bld) 7.6 % [facility] Neutrophils Auto (Bld) [#/Vo l]on 06-30-2020 Neutrophils (Bld) [#/Vol] 2.7 10*3/uL 1.8-7.7 [facility] Neutrophils/100 WBC Auto (Bl d)on 06-30-2020 Neutrophils/100 WBC (Bld) 57.9 % [facility] No Panel Informationon 06-30 Estimated GFR () > 60 mL/Min [facility] Comment on above: GFR estimated refere nce range: According to KDOQI guidelines, <60 ml/min/1.73m2 is sufficient to diagnose a patient with chronic kidney disease. Otheron 06-30-2020 GFR/1.73 sq M.predicted MDRD (S/P/Bld) [Vol rate/Area] > 60 mL/Min [facility] Comment on above: GFR estimated refere nce range: According to KDOQI guidelines, <60 ml/min/1.73m2 is sufficient to diagnose a patient with chronic kidney disease. Nucleated RBC/100 WBC (Bld) [Ratio] 0.1 % 0-0.5 [facility] Creatinine Clearance (Chem N/A [facility] Platelet mean volume Auto (B ld) [Entitic vol]on 06-30-2020 Platelet mean volume (Bld) [Entitic vol] 7.8 fL 6.3-10.7 [facility] Platelets Auto (Bld) [#/Vol] on 06-30-2020 Platelets (Bld) [#/Vol] 244 10*3/uL 150-450 [facility] Protein Auto test strip (U) [Mass/Vol]on 06-30-2020 Protein (U) [Mass/Vol] Negative Negative [facility] Protein [Mass/volume] in Ser um or Plasmaon 06-30-2020 Protein [Mass/Vol] 5.9 g/dL 6.1-7.9 [facility] RBC Auto (Bld) [#/Vol]on RBC (Bld) [#/Vol] 4.18 10*6/uL 3.60-5.00 [facility] Serum or plasma alanine kirkpatrick otransferase measurement without P-5'-P (enzymatic activion 06-30-2020 ALT No additional P-5'-P [Catalytic activity/Vol] 16 U/L 10-60 [facility] Serum or plasma albumin/glob ulin mass ratioon 06-30-2020 Albumin/Globulin [Mass ratio] 1.6 {ratio} [facility] Serum or plasma alkaline kami sphatase measurement (enzymatic activity/volume)on 06-30-2020 ALP [Catalytic activity/Vol] 63 U/L 32-92 [facility] Serum or plasma aspartate am inotransferase measurement (enzymatic activity/volume)on 06-30-2020 AST [Catalytic activity/Vol] 20 U/L 10-42 [facility] Serum or plasma calcium ventura urement (mass/volume)on 06-30-2020 Calcium [Mass/Vol] 8.7 mg/dL 8.2-10.2 [facility] Serum or plasma chloride alfie surement (moles/volume)on 06-30-2020 Chloride [Moles/Vol] 101 mmol/L 95-114 [facility] Serum or plasma glucose ventura urement (mass/volume)on 06-30-2020 Glucose [Mass/Vol] 90 mg/dL 70-100 [facility] Comment on above: ADA recommended refe rence rangeRandom Glucose Reference Range is dependent on time and content of last meal. Glucose of more than 200 mg/dL in a nonstressed, ambulatory subject supports the diagnosis of Diabetes Mellitus. Serum or plasma high density lipoprotein (HDL) cholesterol measurementon 06-30-2020 Cholesterol in HDL [Mass/Vol] 42 mg/dL 35-85 [facility] Comment on above: HDL CHOL ATP-III CLA SSIFICATION Cardiovascular RiskHDL > or equal to 60 mg/dL LOWHDL < 40 mg/dL HIGH Serum or plasma potassium me asurement (moles/volume)on 06-30-2020 Potassium [Moles/Vol] 4.1 mmol/L 3.5-5.1 [facility] Serum or plasma sodium measu rement (moles/volume)on 06-30-2020 Sodium [Moles/Vol] 139 mmol/L 136-146 [facility] Serum or plasma thyroid stim ulating hormone (TSH) measurement by high sensitivity meton 06-30-2020 TSH Qn 1.63 u[iU]/mL 0.45-5.33 [facility] Serum or plasma total biliru bin measurement (mass/volume)on 06-30-2020 Bilirubin [Mass/Vol] 0.6 mg/dL 0.3-1.2 [facility] Serum or plasma total carbon dioxide measurement (moles/volume)on 06-30-2020 CO2 [Moles/Vol] 28.7 mmol/L 22.0-30.0 [facility] Serum or plasma total choles terol/high density lipoprotein (HDL) cholesterol mass bentley 06-30-2020 Cholesterol.total/Chol esterol in HDL [Mass ratio] 4.8 {ratio} [facility] Serum or plasma urea nitroge n measurement (mass/volume)on 06-30-2020 Urea nitrogen [Mass/Vol] 5 mg/dL 9-23 [facility] TSH DL <= 0.005 mIU/L Qnon 0 06-30-2020 TSH Qn 1.63 m[IU]/L 0.45-5.33 [facility] Triglyceride [Mass/volume] i n Serum or Plasmaon 06-30-2020 Triglyceride [Mass/Vol] 128 mg/dL 35-149 [facility] Comment on above: TRIG ATP III CLASSIF ICATIONTRIG less than 150 mg/dL NormalTRIG 150-199 mg/dL Borderline highTRIG 200-500 mg/dL High TRIG greater than 500 mg/dL Very highStandard traceable to the Center for Disease Conrtrol and Prevention (CDC) test method. Urine appearanceon Appearance (U) Clear Clear [facility] Urine coloron 06-30-2020 Color (U) Yellow Yellow [facility] Urine glucose measurement by automated test strip (mass/volume)on 06-30-2020 Glucose Auto test strip (U) [Mass/Vol] Normal mg/dL Normal [facility] Urine hemoglobin detection b y automated test stripon 06-30-2020 Hemoglobin Auto test strip Ql (U) Negative Negative [facility] Hemoglobin Auto test strip Ql (U) Negative Negative [facility] Urine ketones measurement by automated test strip (mass/volume)on 06-30-2020 Ketones (U) [Mass/Vol] Negative Negative [facility] Urine leukocyte esterase det ection by automated test stripon 06-30-2020 Leukocyte esterase Auto test strip Ql (U) Negative Negative [facility] Leukocyte esterase Auto test strip Ql (U) Negative Negative [facility] Urine nitrite detection by a utomated test stripon 06-30-2020 Nitrite Auto test strip Ql (U) Negative Negative [facility] Nitrite Auto test strip Ql (U) Negative Negative [facility] Urine protein measurement by automated test strip (mass/volume)on 06-30-2020 Protein (U) [Mass/Vol] Negative Negative [facility] Urine total bilirubin detect ion by automated test stripon 06-30-2020 Bilirubin Ql (U) Negative Negative [facility] Urobilinogen Auto test strip (U) [Mass/Vol]on 06-30-2020 Urobilinogen (U) [Mass/Vol] Normal mg/dL Normal [facility] pH Auto test strip (U)on pH (U) 5.5 [pH] 5.0-9.0 [facility] pH (U) 1.030 [pH] 1.001-1.03 0 [facility] Amphetamines screenon 2020 Amphetamines Ql (U) Negative Negative [facility] Cannabinoids [Presence] in U rine by Screen methodon 03-31-2020 Cannabinoids Screen Ql (U) Positive Negative [facility] Comment on above: These are unconfirme d results and should not be used for legal purposes. Drug Cut-Off Concentration: AMPH 1000 ng/mL JUNIE 200 ng/mL SABRA 200 ng/mL COCM 300 ng/mL OP 300 ng/mL PCP 25 ng/mL THC 20 ng/mL Urinalysison 03-31-2020 Opiates Ql (U) Negative Negative [facility] Urine barbiturates detection on 03-31-2020 Barbiturates Ql (U) Negative Negative [facility] Urine benzodiazepines detect ionon 03-31-2020 Benzodiazepines Ql (U) Negative Negative [facility] Urine cocaine detectionon Cocaine Ql (U) Negative Negative [facility] Urine phencyclidine detectio n by screening methodon 03-31-2020 Phencyclidine Ql (U) Negative Negative [facility] COVID-19 SOFIAon 03-30-2020 COVID-19 SHELBI Negative Negative [facility] Comment on above: This is a duplicate test result based off of the Shelbi SARS Antigen (MILDRED) test performed within the Microbiology department. Otheron 03-30-2020 SARS Antigen (LFIA) [facility] Vital Signs Date Time Vital Sign Value Performing Clinician Facility 03-13-2023 14:26-0500 Body temperature 97.7 [degF] DO Wardjaquelin Zuniga Work Phone: [facility] 03-13-2023 14:26-0500 Diastolic blood pressure 68 mm[Hg] DO Ward Zuniga Work Phone: [facility] 03-13-2023 14:26-0500 Heart rate 84 /min DO Ward Zuniga Work Phone: [facility] 03-13-2023 14:26-0500 Respiratory rate 18 /min DO Ward Zuniga Work Phone: [facility] 03-13-2023 14:26-0500 Systolic blood pressure 148 mm[Hg] DO Ward Zuniga Work Phone: [facility] 03-02-2023 13:09-0500 Blood Pressure Location [facility]ty [facility] 03-02-2023 13:09-0500 Body temperature 96.98 [degF] Ketty [facility] 03-02-2023 13:09-0500 Diastolic blood pressure 81 mm[Hg] Ketty [facility] 03-02-2023 13:09-0500 Heart rate 71 /min Ketty [facility] 03-02-2023 13:09-0500 Systolic blood pressure 128 mm[Hg] Ketty [facility] 02-27-2023 14:36-0500 Body height 154.94 cm DO Ward Zuniga Work Phone: [facility] 02-27-2023 14:36-0500 Body mass index (BMI) [Ratio] 31.1 kg/m2 DO Ward Zuniga Work Phone: [facility] 02-27-2023 14:36-0500 Body weight 74.84 kg DO Ward Zuniga Work Phone: [facility] 01-04-2023 13:32-0400 Body height 154.94 cm DO Ward Zuniga Work Phone: [facility] 01-04-2023 13:32-0400 Body mass index (BMI) [Ratio] 31.1 kg/m2 DO Ward Zuniga Work Phone: [facility] 01-04-2023 13:32-0400 Body weight 74.84 kg DO Ward Zuniga Work Phone: [facility] 01-04-2023 13:19-0400 Diastolic blood pressure 92 mm[Hg] DO Ward Zuniga Work Phone: [facility] 01-04-2023 13:19-0400 Heart rate 82 /min DO Ward Zuniga Work Phone: [facility] 01-04-2023 13:19-0400 Respiratory rate 18 /min DO Ward Zuniga Work Phone: [facility] 01-04-2023 13:19-0400 Systolic blood pressure 160 mm[Hg] DO Ward Zuniga Work Phone: [facility] 01-02-2023 09:45-0400 Body height 154.94 cm Ward Mtz Other [employer] [facility] [employer] Other 01-02-2023 09:45-0400 Body mass index (BMI) [Ratio] 32.12 kg/m2 Ward Owensalbinsantiago Other [employer] Other 01-02-2023 09:45-0400 Body temperature 97.8 [degF] Ward Mtz Other [employer] Other 01-02-2023 09:45-0400 Body weight 77.11 kg Ward Mtz Other [facility] [employer] Other 01-02-2023 09:45-0400 Diastolic blood pressure 62 mm[Hg] Ward Carmonar Other [employer] Other 01-02-2023 09:45-0400 SaO2% (BldA) [Mass fraction] 97 % Ward Mtz Other [employer] [facility] [employer] Other 01-02-2023 09:45-0400 Systolic blood pressure 116 mm[Hg] Ward Carmonar Other [facility] [employer] Other 12-21-2022 13:01-0400 Body temperature 98.4 [degF] DO Ward Zuniga Work Phone: [facility] 12-17-2022 09:00-0400 Diastolic blood pressure 68 mm[Hg] DO Ward Zuniga Work Phone: [facility] 12-17-2022 09:00-0400 Heart rate 64 /min DO Ward Zuniga Work Phone: [facility] 12-17-2022 09:00-0400 Respiratory rate 20 /min DO aWrd Zuniga Work Phone: [facility] 12-17-2022 09:00-0400 SaO2% (BldA) [Mass fraction] 95 % DO Ward Zuniga Work Phone: [facility] 12-17-2022 09:00-0400 Systolic blood pressure 138 mm[Hg] DO Ward Zach Work Phone: [facility] 12-17-2022 07:42-0400 Body temperature 98.9 [degF] DO Ward Zach Work Phone: [facility] 12-07-2022 11:11-0400 Body height 154.94 cm DO Ward Zach Work Phone: [facility] 12-07-2022 11:11-0400 Body mass index (BMI) [Ratio] 31.1 kg/m2 DO Ward Zach Work Phone: [facility] 12-07-2022 11:11-0400 Body weight 74.84 kg DO Ward Zach Work Phone: [facility] 12-07-2022 11:01-0400 Body temperature 97.2 [degF] DO Ward Zach Work Phone: [facility] 12-07-2022 11:01-0400 Diastolic blood pressure 74 mm[Hg] DO Ward Zach Work Phone: [facility] 12-07-2022 11:01-0400 Heart rate 67 /min DO Ward Loomisman Work Phone: [facility] 12-07-2022 11:01-0400 Respiratory rate 18 /min DO Ward Zuniga Work Phone: [facility] 12-07-2022 11:01-0400 Systolic blood pressure 146 mm[Hg] DO Ward Zach Work Phone: [facility] 11-04-2022 10:54-0400 Body height 154.94 cm DO Ward Zuniga Work Phone: [facility] 11-04-2022 10:54-0400 Body temperature 99.2 [degF] DO Ward Zach Work Phone: [facility] 11-04-2022 10:54-0400 Body weight 70.3 kg DO Ward Zach Work Phone: [facility] 11-04-2022 10:54-0400 Diastolic blood pressure 71 mm[Hg] DO Ward Zach Work Phone: [facility] 08-11-2023 10:54-0400 Heart rate 78 /min DO Ward Zuniga Work Phone: [facility] 11-04-2022 10:54-0400 Respiratory rate 18 /min DO Ward Zuniga Work Phone: [facility] 11-04-2022 10:54-0400 SaO2% (BldA) [Mass fraction] 99 % DO Ward Zuniga Work Phone: [facility] 11-04-2022 10:54-0400 Systolic blood pressure 159 mm[Hg] DO Ward Zach Work Phone: [facility] 10-26-2022 09:42-0400 Body height 154.94 cm DO Ward Zuniga Work Phone: [facility] 10-26-2022 09:42-0400 Body mass index (BMI) [Ratio] 31.1 kg/m2 DO Ward Zuniga Work Phone: [facility] 10-26-2022 09:42-0400 Body weight 74.84 kg DO Ward Zuniga Work Phone: [facility] 10-26-2022 09:28-0400 Body temperature 98.4 [degF] DO Ward Zuniga Work Phone: [facility] 10-26-2022 09:28-0400 Diastolic blood pressure 88 mm[Hg] DO Wardjaquelin Zuniga Work Phone: [facility] 10-26-2022 09:28-0400 Heart rate 93 /min DO Ward Zach Work Phone: [facility] 10-26-2022 09:28-0400 Respiratory rate 24 /min DO Ward Zach Work Phone: [facility] 10-26-2022 09:28-0400 Systolic blood pressure 132 mm[Hg] DO Ward Zach Work Phone: [facility] 10-24-2022 09:45-0400 Body height 154.94 cm Ward Mtz Other [facility] [employer] Other 10-24-2022 09:45-0400 Body mass index (BMI) [Ratio] 31.74 kg/m2 Ward Mtz Other [facility] Other 10-24-2022 09:45-0400 Body temperature 97.4 [degF] Ward Mtz Other [facility] Other 10-24-2022 09:45-0400 Body weight 76.2 kg Ward Mtz Other [facility] Other 10-24-2022 09:45-0400 Diastolic blood pressure 70 mm[Hg] Ward Mtz Other [facility] Other 10-24-2022 09:45-0400 SaO2% (BldA) [Mass fraction] 97 % Ward Mtz Other [facility] Other 10-24-2022 09:45-0400 Systolic blood pressure 118 mm[Hg] Ward Morenorer Other [facility] Other 09-27-2022 08:26-0400 Diastolic blood pressure 56 mm[Hg] Ronobir RANDY [facility] 09-27-2022 08:26-0400 Heart rate 55 /min Ronobir RANDY [facility] 09-27-2022 08:26-0400 Respiratory rate 18 /min Ronobir RANDY [facility] 09-27-2022 08:26-0400 SaO2% (BldA) [Mass fraction] 99 % Ronobir RANDY [facility] 09-27-2022 08:26-0400 Systolic blood pressure 110 mm[Hg] Ronobir RANDY [facility] 09-27-2022 05:58-0400 Diastolic blood pressure 59 mm[Hg] Ronobir RANDY [facility] 09-27-2022 05:58-0400 Heart rate 64 /min Ronobir RANDY [facility] 09-27-2022 05:58-0400 Respiratory rate 18 /min Ronobir RANDY [facility] 09-27-2022 05:58-0400 SaO2% (BldA) [Mass fraction] 95 % Ronobir RANDY [facility] 09-27-2022 05:58-0400 Systolic blood pressure 108 mm[Hg] Ronobir RANDY [facility] 09-27-2022 04:58-0400 Diastolic blood pressure 61 mm[Hg] Ronobir RANDY [facility] 09-27-2022 04:58-0400 Heart rate 66 /min Ronobir RANDY [facility] 09-27-2022 04:58-0400 Respiratory rate 18 /min Ronobir RANDY [facility] 09-27-2022 04:58-0400 SaO2% (BldA) [Mass fraction] 97 % Ronobir RANDY [facility] 09-27-2022 04:58-0400 Systolic blood pressure 111 mm[Hg] Ronobir RANDY [facility] 09-26-2022 23:15-0400 Body temperature 98.96 [degF] Maliha PADILLA [facility] 07-26-2022 14:31-0400 Heart rate 76 /min Talon Mcbride [facility] 07-26-2022 14:31-0400 SaO2% (BldA) [Mass fraction] 98 % Talon Gastonsh [facility] 07-26-2022 14:30-0400 Diastolic blood pressure 84 mm[Hg] Talon Gastonsh [facility] 07-26-2022 14:30-0400 Mean blood pressure 111 mm[Hg] Talon Mcbride [facility] 07-26-2022 14:30-0400 Systolic blood pressure 166 mm[Hg] Talon Gastonsh [facility] 07-26-2022 14:30-0400 Respiratory rate 16 /min Talon Mcbride [facility] 07-26-2022 12:53-0400 Heart rate 73 /min Talon Mcbride [facility] 07-26-2022 12:53-0400 SaO2% (BldA) [Mass fraction] 98 % Talon Mcbride [facility] 07-26-2022 12:52-0400 Diastolic blood pressure 75 mm[Hg] Talon Gastonsh [facility] 07-26-2022 12:52-0400 Mean blood pressure 99 mm[Hg] Talon Gastonsh [facility] 07-26-2022 12:52-0400 Systolic blood pressure 148 mm[Hg] Talon Gastonsh [facility] 07-26-2022 12:52-0400 SaO2% (BldA) [Mass fraction] 95 % Talon Gastonsh [facility] 07-26-2022 12:43-0400 Body temperature 97.88 [degF] Talon Gastonsh [facility] 07-26-2022 12:43-0400 Diastolic blood pressure 63 mm[Hg] Talon Gastonsh [facility] 07-26-2022 12:43-0400 Heart rate 63 /min Talon Gastonsh [facility] 07-26-2022 12:43-0400 Mean blood pressure 86 mm[Hg] Talon Gastonsh [facility] 07-26-2022 12:43-0400 Respiratory rate 15 /min Talon Gastonsh [facility] 07-26-2022 12:43-0400 Systolic blood pressure 131 mm[Hg] Talon Gastonsh [facility] 07-26-2022 12:30-0400 Mean blood pressure 93 mm[Hg] Talon Gastonsh [facility] 07-26-2022 12:30-0400 Respiratory rate 16 /min Talon Gastonsh [facility] 07-26-2022 12:15-0400 Mean blood pressure 112 mm[Hg] Talon Mcbride [facility] 07-26-2022 12:15-0400 Respiratory rate 15 /min Talon Gastonsh [facility] 07-26-2022 11:46-0400 Body temperature 97.34 [degF] Talon Gastonsh [facility] 07-26-2022 11:40-0400 Respiratory rate 21 /min Talon Gastonsh [facility] 07-26-2022 11:35-0400 Respiratory rate 14 /min Talon Gastonsh [facility] 07-26-2022 06:00-0400 Body temperature 98.06 [degF] Talon Gastonsh [facility] 07-26-2022 06:00-0400 Mean blood pressure 101 mm[Hg] Talon Gastonsh [facility] 07-26-2022 06:00-0400 Heart rate 68 /min Talon Gastonsh [facility] 07-26-2022 05:58-0400 Blood Pressure Location Talon Gastonsh [facility] 07-18-2022 13:31-0400 Diastolic blood pressure 72 mm[Hg] Talon Gastonsh [facility] 07-18-2022 13:31-0400 Heart rate 61 /min Talon Gastonsh [facility] 07-18-2022 13:31-0400 Mean blood pressure 89 mm[Hg] Talon Gastonsh [facility] 07-18-2022 13:31-0400 Systolic blood pressure 123 mm[Hg] Talon Gastonsh [facility] 07-18-2022 13:31-0400 Heart rate 64 /min Talon Gastonsh [facility] 07-18-2022 13:31-0400 SaO2% (BldA) [Mass fraction] 99 % Talon Gastonsh [facility] 07-18-2022 13:31-0400 Respiratory rate 17 /min Talon Gastonsh [facility] 07-18-2022 13:30-0400 Diastolic blood pressure 69 mm[Hg] Talon Gastonsh [facility] 07-18-2022 13:30-0400 Mean blood pressure 86 mm[Hg] Talon Gastonsh [facility] 07-18-2022 13:30-0400 Systolic blood pressure 121 mm[Hg] Talon Mcbride [facility] 07-13-2022 14:45-0400 Body height 154.9 cm Trauma Resident [facility] 07-13-2022 14:45-0400 Body mass index (BMI) [Ratio] 31.01 kg/m2 Trauma Resident [facility] 07-13-2022 14:45-0400 Body temperature 97.3 [degF] Trauma Resident [facility] 07-13-2022 14:45-0400 Body weight 74.44 kg Trauma Resident [facility] 07-13-2022 14:45-0400 Diastolic blood pressure 69 mm[Hg] Trauma Resident [facility] 07-13-2022 14:45-0400 Heart rate 69 /min Trauma Resident [facility] 07-13-2022 14:45-0400 Respiratory rate 16 /min Trauma Resident [facility] 07-13-2022 14:45-0400 SaO2% (BldA) [Mass fraction] 100 % Trauma Resident [facility] 07-13-2022 14:45-0400 Systolic blood pressure 159 mm[Hg] Trauma Resident [facility] 07-05-2022 14:45-0400 Diastolic blood pressure 54 mm[Hg] [address] 07-05-2022 14:45-0400 Heart rate 75 /min [address] 07-05-2022 14:45-0400 Respiratory rate 16 /min [address] 07-05-2022 14:45-0400 SaO2% (BldA) [Mass fraction] 97 % [address] 07-05-2022 14:45-0400 Systolic blood pressure 125 mm[Hg] [address] 07-05-2022 13:00-0400 Body height 154.[address] 07-05-2022 13:00-0400 Body mass index (BMI) [Ratio] 31.55 kg/m2 [address] 07-05-2022 13:00-0400 Body temperature 98.6 [degF] [address] 07-05-2022 13:00-0400 Body weight 75.[address] 04-06-2023 08:58-0400 Body height 154.94 cm Ward Zuniga Work Phone: [facility] [employer] [address] DO Work Phone: 06-30-2022 08:58-0400 Body mass index (BMI) [Ratio] 31.08 kg/m2 Ward Zuniga Work Phone: [facility] [employer] [address] DO Work Phone: 06-30-2022 08:58-0400 Body surface area Derived from formula 1.74 m2 Ward Zuniga Work Phone: [facility] [employer] [address] DO Work Phone: 06-30-2022 08:58-0400 Body weight 74.62 kg Ward Zuniga Work Phone: [facility] [employer] [address] DO Work Phone: 06-30-2022 08:58-0400 Diastolic blood pressure 78 mm[Hg] Ward Zuniga Work Phone: [facility] [employer] [address] DO Work Phone: 06-30-2022 08:58-0400 Diastolic blood pressure 80 mm[Hg] Ward Zuniga Work Phone: [facility] [employer] [address] DO Work Phone: 06-30-2022 08:58-0400 Heart rate 77 /min Ward Zuniga Work Phone: [facility] [address] DO Work Phone: 06-30-2022 08:58-0400 Systolic blood pressure 128 mm[Hg] Ward Zuniga Work Phone: [facility] [address] DO Work Phone: 06-30-2022 08:58-0400 Systolic blood pressure 132 mm[Hg] Ward Zuniga Work Phone: [facility] [address] DO Work Phone: 06-22-2022 19:00-0400 Body height 154.94 cm DO Ward Zuniga Work Phone: [facility] 06-22-2022 19:00-0400 Body temperature 97.7 [degF] DO Ward Zuniga Work Phone: [facility] 06-22-2022 19:00-0400 Body weight 73 kg DO Ward Zuniga Work Phone: [facility] 06-22-2022 19:00-0400 Diastolic blood pressure 76 mm[Hg] DO Ward Zuniga Work Phone: [facility] 06-22-2022 19:00-0400 Heart rate 94 /min DO Ward Zuniga Work Phone: [facility] 06-22-2022 19:00-0400 Respiratory rate 18 /min DO Ward Zuniga Work Phone: [facility] 06-22-2022 19:00-0400 SaO2% (BldA) [Mass fraction] 98 % DO Ward Zuniga Work Phone: [facility] 06-22-2022 19:00-0400 Systolic blood pressure 139 mm[Hg] DO Ward Zuniga Work Phone: [facility] 06-15-2022 13:10-0400 Body height 154.9 cm Trauma Resident [facility] 06-15-2022 13:10-0400 Body mass index (BMI) [Ratio] 31.57 kg/m2 Trauma Resident [facility] 06-15-2022 13:10-0400 Body weight 75.8 kg Trauma Resident [facility] 06-15-2022 13:10-0400 Diastolic blood pressure 68 mm[Hg] Trauma Resident [facility] 06-15-2022 13:10-0400 Heart rate 92 /min Trauma Resident [facility] 06-15-2022 13:10-0400 Respiratory rate 19 /min Trauma Resident [facility] 06-15-2022 13:10-0400 SaO2% (BldA) [Mass fraction] 97 % Trauma Resident [facility] 06-15-2022 13:10-0400 Systolic blood pressure 118 mm[Hg] Trauma Resident [facility] 05-16-2022 00:50-0500 Body temperature 98.3 [degF] DO Ward Zuniga Work Phone: [facility] 05-16-2022 00:50-0500 Diastolic blood pressure 79 mm[Hg] DO Ward Zuniga Work Phone: [facility] 05-16-2022 00:50-0500 Heart rate 82 /min DO Ward Zuniga Work Phone: [facility] 05-16-2022 00:50-0500 Inhaled oxygen flow rate 3 L/min DO Ward Zuniga Work Phone: [facility] 05-16-2022 00:50-0500 Respiratory rate 20 /min DO Ward Zuniga Work Phone: [facility] 05-16-2022 00:50-0500 SaO2% (BldA) [Mass fraction] 96 % DO Ward Zuniga Work Phone: [facility] 05-16-2022 00:50-0500 Systolic blood pressure 147 mm[Hg] DO Ward Zuniga Work Phone: [facility] 05-15-2022 17:14-0500 Body height 154.94 cm DO Ward Zuniga Work Phone: [facility] 05-15-2022 17:14-0500 Body weight 78.1 kg DO Ward Zuniga Work Phone: [facility] 12-07-2021 09:30-0400 Body height 154.94 cm Balwinder Parker Other [facility] Other 12-07-2021 09:30-0400 Body mass index (BMI) [Ratio] 33.06 kg/m2 Balwinder Parker Other [facility] [employer] Other 12-07-2021 09:30-0400 Body weight 79.38 kg Balwinder Disarah Other [facility] [employer] Other 12-07-2021 09:30-0400 Diastolic blood pressure 63 mm[Hg] Balwinder Parker Other [facility] [employer] Other 12-07-2021 09:30-0400 Systolic blood pressure 113 mm[Hg] Balwinder Debsarah Other [facility] [employer] Other 12-07-2021 09:01-0400 Body weight 0 kg DO Ward Zuniga Work Phone: [facility] 11-30-2021 13:23-0400 Blood Pressure Location MARYCARMEN ELIJAH [facility] 11-30-2021 13:23-0400 Diastolic blood pressure 73 mm[Hg] MARYCARMEN ELIJAH [facility] 11-30-2021 13:23-0400 Heart rate 69 /min MARYCARMEN ELIJAH [facility] 11-30-2021 13:23-0400 Systolic blood pressure 132 mm[Hg] MARYCARMEN ELIJAH [facility] 07-29-2021 11:08-0400 Blood Pressure Location MARYCARMEN ELIJAH [facility] 07-29-2021 11:08-0400 Diastolic blood pressure 84 mm[Hg] MARYCARMEN ELIJAH [facility] 07-29-2021 11:08-0400 Heart rate 77 /min MARYCARMEN NAVA [facility] 07-29-2021 11:08-0400 Systolic blood pressure 132 mm[Hg] MARYCARMEN NAVA [facility] 07-01-2021 14:45-0400 Body height 154.94 cm Balwinder Parker Other [facility] Other 07-01-2021 14:45-0400 Body mass index (BMI) [Ratio] 36.09 kg/m2 Balwinder Parker Other [facility] Other 07-01-2021 14:45-0400 Body weight 86.64 kg Balwinder Parker Other [facility] [employer] Other 02-23-2021 11:45-0500 Body height 154.94 cm Ward Mtz Other [employer] Other 02-23-2021 11:45-0500 Body mass index (BMI) [Ratio] 34.95 kg/m2 Ward Mtz Other [facility] [employer] Other 02-23-2021 11:45-0500 Body temperature 96.7 [degF] Ward Mtz Other [facility] [employer] Other 02-23-2021 11:45-0500 Body weight 83.92 kg Ward Mtz Other [facility] [employer] Other 02-23-2021 11:45-0500 Diastolic blood pressure 80 mm[Hg] Ward Morenosantiago Other [facility] Other 02-23-2021 11:45-0500 SaO2% (BldA) [Mass fraction] 98 % Ward Mtz Other [facility] [employer] Other 02-23-2021 11:45-0500 Systolic blood pressure 138 mm[Hg] Ward Romanalbinsantiago Other [facility] [employer] Other 12-29-2020 11:40-0400 Body height 154.94 cm Michael Colunga Other [facility] [employer] Other 12-29-2020 11:40-0400 Body mass index (BMI) [Ratio] 34.95 kg/m2 Michael Colunga Other [facility] Other 12-29-2020 11:40-0400 Body weight 83.92 kg Michael Colunga Other [facility] Other 12-29-2020 11:40-0400 Diastolic blood pressure 68 mm[Hg] Michael Colunga Other [facility] Other 12-29-2020 11:40-0400 Systolic blood pressure 116 mm[Hg] Michael Colunga Other [facility] [employer] Other 03-31-2020 08:55-0500 BP Diastolic 80 mm[Hg] [facility] 03-31-2020 08:55-0500 BP Systolic 145 mm[Hg] [facility] 03-31-2020 08:55-0500 Pulse (Heart Rate) 65 /min [facility] 03-31-2020 08:55-0500 Pulse Oximetry 99 % [facility] 03-31-2020 08:55-0500 Respiratory Rate 16 /min [facility] 03-31-2020 07:10-0500 BMI (Body Mass Index) 33.6 kg/m2 [facility] 03-31-2020 07:10-0500 Body weight 82.1 kg [facility] 03-31-2020 [id number]:100500 Height 156.21 cm [facility] Encounters Encounter Date Encounter Type Care Provider Facility Start: 03-14-2024 ambulatory MARYCARMEN Lay ty:[facility] Start: 03-22-2023 End: 03-22-2023 ambulatory CONNIE LEARY Not Available Start: 03-13-2023 End: 03-13-2023 ambulatory Adelia Saldana Facility:[facility] Start: 03-13-2023 End: 03-13-2023 ambulatory DO Ward Zuniga Work Phone: [facility] Work Phone: Start: 03-13-2023 End: 03-13-2023 Discharged Recurring DO Ward Zuniga Work Phone: [facility] [place] Work Phone: Start: 03-02-2023 End: 03-03-2023 ambulatory Ketty X Ravin Facility:[facility] Start: 03-02-2023 End: 03-02-2023 Patient encounter procedure Ketty X Orzech [facility] [place] Start: 03-01-2023 End: 03-02-2023 ambulatory CONNIE LEARY Not Available Start: 02-22-2023 End: 02-23-2023 ambulatory CONNIE LEARY Not Available Start: 02-07-2023 End: 02-08-2023 ambulatory WARD ZUNIGA Not Available Start: 01-04-2023 End: 01-04-2023 ambulatory Ward Zuniga Facility:[facility] Start: 01-04-2023 End: 01-04-2023 Discharged Recurring DO Ward Zuniga Work Phone: [facility] [place] Work Phone: Start: 01-02-2023 End: 01-02-2023 ambulatory Ward Mtz Other [facility] [employer] Other Start: 01-02-2023 Office outpatient vi sit 25 minutes Ward Mtz [facility] Vascular Surgery Start: 12-17-2022 End: 12-17-2022 Emergency department patient visit Pravin Granado Facility:[facility] Start: 12-17-2022 End: 12-17-2022 Emergency department patient visit DO Ward Zuniga Work Phone: [facility] Work Phone: Start: 12-07-2022 Registered Recurring DO Lyndsey santana Zach Work Phone: [facility] [place] Work Phone: Start: 12-03-2022 Letter encounter Lalo [place] Start: 11-04-2022 End: 11-04-2022 ambulatory Ward Zuniga Facility:[facility] Start: 11-04-2022 End: 11-04-2022 Emergency department patient visit Ward Zuniga Facility:[facility] Start: 11-04-2022 End: 11-04-2022 ambulatory DO Ward Zuniga Work Phone: [facility] Work Phone: Start: 11-04-2022 End: 11-04-2022 Patient encounter procedure DO Ward Zuniga Work Phone: [facility]Ul[facility] [place] Work Phone: Start: 11-04-2022 End: 11-04-2022 Emergency department patient visit DO Ward Zuniga Work Phone: [facility] Work Phone: Start: 10-26-2022 Registered Recurring DO Lyndsey Zuniga Work Phone: [facility] [place] Work Phone: Start: 10-24-2022 End: 10-24-2022 ambulatory Ward Mtz Other [employer] Other Start: 10-24-2022 Office outpatient vi sit 25 minutes Ward Mtz [facility] Vascular Surgery Start: 09-27-2022 End: 09-27-2022 ambulatory Maliha PADILLA Facility:[facility] Start: 09-26-2022 End: 09-27-2022 Emergency department patient visit Maliha PADILLA [facility] Start: 09-06-2022 End: 09-06-2022 ambulatory Ward Zuniga Facility:[facility] Start: 09-06-2022 End: 09-06-2022 Patient encounter procedure DO Ward Zuniga Work Phone: [facility] [place] Work Phone: Start: 08-30-2022 Letter encounter Lalo [place] Start: 08-05-2022 End: 08-06-2022 ambulatory Talon Mcbride Facility:[facility] Start: 08-05-2022 End: 08-05-2022 Patient encounter procedure Zulay Junior [facility] Start: 07-26-2022 End: 07-26-2022 ambulatory Talon Mcbride Facility:[facility] Start: 07-26-2022 End: 07-26-2022 Admission to same day surgery center Talon Mcbride [facility] Start: 07-18-2022 End: 07-19-[address] Ward Zuniga Facility: Start: 07-18-2022 End: 07-18-2022 Patient encounter procedure Talon Mcbride [facility] Start: 07-13-2022 End: 07-13-2022 ambulatory NIKITA Facility:[facility] Start: 07-13-2022 End: 07-13-2022 Office outpatient visit 10 minutes Trauma Surgery Resident [facility] Trauma Surgery Comment on above: Acute cholecystitis (Primary Dx); Body mass index (BMI) 31.0-31.9, adult Start: 07-13-2022 Admission to [facility] Nikita Hein MD Work Phone: [facility] Start: 07-07-2022 Orders Only Jai [facility]il[facility] Start: 07-06-2022 ambulatory Kendra Harrison RN [facility] Line Comment on above: Advice/health educat ion Start: 07-06-2022 Telephone encounter Jai Aguilera RN [facility] Trauma Surgery Start: 07-05-2022 End: 07-06-2022 ambulatory NIKITA HEIN Facility:[facility] Start: 07-05-2022 Telephone encounter Taniya cat Work Phone: [facility]uma [facility] Start: 07-05-2022 End: 07-05-2022 Subsequent hospital visit by physician Mh Ip/Op Angio 1 [facility] Radiology Comment on above: Acute cholecystitis Start: 06-30-2022 Office consultation new/estab patient 60 min Ward Zuniga Work Phone: [facility] Work Phone: Start: 06-30-[address] Natan Marinelli Facility: Start: 06-27-2022 Telephone encounter Taniya cat Work Phone: [facility] Trauma [facility] Start: 06-22-2022 End: 06-22-2022 Emergency department patient visit Keith Griffith Facility:[facility] Start: 06-22-2022 End: 06-22-2022 Emergency department patient visit DO Ward Zuniga Work Phone: [facility] Work Phone: Start: 06-20-2022 Orders Only Jai Aguilera RN [facility] Trauma Surgery Start: 06-17-2022 Telephone encounter Laura Govind [facility] Trauma Surgery Start: 06-16-2022 Telephone encounter Taniya Reid zacariasvanessa Work Phone: [facility] Trauma Surgery Start: 06-15-2022 End: 06-18-2022 ambulatory UNKNOWN PROVIDER Facility:[facility] Start: 06-15-2022 End: 06-18-2022 Office outpatient visit 15 minutes Trauma Surgery Resident [facility] Trauma Surgery Comment on above: Acute cholecystitis (Primary Dx); Body mass index (BMI) 31.0-31.9, adult Start: 05-27-2022 ambulatory Maegan Morris RN [facility] Comment on above: Advice/health educat ion Start: 05-23-2022 Evaluation and management of inpatient JOCELYNE CONLEY Facility:[facility] Start: 05-19-2022 Evaluation and management of inpatient CONNIE COTE Facility:[facility] Start: 05-18-2022 Patient encounter status Maegan Morris RN [facility] Start: 05-17-2022 Evaluation and management of inpatient CONNIE CRUZARTHY Facility:[facility] Start: 05-16-2022 Evaluation and management of inpatient [facility] C[facility] Start: 05-16-2022 End: 05-16-2022 ambulatory UNKNOWN PROVIDER Facility:[facility] Start: 05-16-2022 End: 05-25-2022 Evaluation and management of inpatient WARD GRAVES Facility:[facility] Start: 05-16-2022 Emergency department patient visit CONNIE COTE [facility] [facility] Start: 05-15-2022 End: 05-16-2022 Emergency department patient visit Keith Griffith Facility:[facility] Start: 05-15-2022 End: 05-16-2022 Emergency department patient visit DO Ward Zuniga Work Phone: [facility]Emergency [facility] Work Phone: Start: 05-15-2022 End: 05-16-2022 ambulatory UNKNOWN PROVIDER [facility] Start: 04-06-2022 End: 04-06-2022 ambulatory Wardjaquelin Zuniga Facility:[facility] Start: 04-06-2022 End: 04-06-2022 ambulatory DO Ward Zuniga Work Phone: [facility] Work Phone: Start: 04-06-2022 End: 04-06-2022 Patient encounter procedure DO Ward Zuniga Work Phone: [facility] [address] Work Phone: Start: 01-03-2022 End: 01-03-2022 ambulatory DO Ward Zuniga Work Phone: [facility] Work Phone: Start: 01-03-2022 End: 01-03-2022 Patient encounter procedure DO Ward Zuniga Work Phone: [facility]Lab [facility] [place] Start: 12-16-2021 End: 12-16-2021 Patient encounter procedure DO Ward Zuniga Work Phone: [facility] Start: 12-15-2021 End: 12-15-2021 Patient encounter procedure DO Ward Zuniga Work Phone: [facility]-Pre-Surgical Testing Start: 12-07-2021 End: 12-07-2021 ambulatory Balwinder Parker Other [facility] Other Start: 12-07-2021 Patient encounter procedure Balwinder Parker [facility] Gastroenterology Start: 11-30-2021 End: 11-30-2021 Patient encounter procedure MARYCARMEN NAVA [facility] Start: 09-08-2021 End: 09-08-2021 ambulatory Balwinder Parker Other [facility] Other Start: 09-08-2021 Telephone encounter Balwinder Parker [facility] Start: 07-29-2021 End: 07-29-2021 Patient encounter procedure MARYCARMEN MEDEIROSRY [facility] [place] Start: 07-01-2021 End: 07-01-2021 ambulatory Balwinder Parker Other [facility] Other Start: 07-01-2021 Patient encounter procedure Balwinder Parker [facility] Gastroenterology Start: 02-23-2021 End: 02-23-2021 ambulatory Ward Mtz Other [facility] Other Start: 02-23-2021 Office outpatient vi sit 15 minutes Ward Mtz [facility] Vascular Surgery Start: 01-22-2021 (Sclerother) Sclerotherapy Ward Mtz [facility] Vascular Surgery Start: 01-22-2021 End: 01-22-2021 ambulatory Ward Mtz Other [facility] Other Start: 01-21-2021 Telephone encounter Michael Colunga [facility] Vascular Surgery Start: 12-29-2020 Office outpatient vi sit 25 minutes Michael Colunga [facility] Neurosurgery Start: 09-07-2020 End: 09-07-2020 Patient encounter procedure aWrd Zuniga Work Phone: -Ultrasound [facility] Vascular Start: 08-04-2020 End: 08-04-2020 Patient encounter procedure Ward Zuniga Work Phone: -Ultrasound [facility] Vascular Start: 07-13-2020 End: 07-13-2020 Patient encounter procedure Ward Zuniga Work Phone: -[facility] Surgery Start: 06-30-2020 End: 06-30-2020 Patient encounter procedure Ward Zuniga -Lab [facility] Start: 03-31-2020 End: 03-31-2020 Admission to day surgery Ward Zuniga -[facility] Start: 03-30-2020 End: 03-30-2020 Patient encounter procedure [...] 11-04-2022 X-ray of left knee DO Tia woods Zach Work Phone: Start: 07-26-2022 Cholecystectomy Talon Mcbride Start: 07-05-2022 Njx cholangio prq w/ img gid rs&i existing access Nikita Hein MD Work Phone: Start: 06-15-2022 Blood count complete automated Nikita Hein MD Work Phone: Start: 05-15-2022 Plain chest X-ray DO Abdullahi claudiojaquelin Zuniga Work Phone: Start: 05-15-2022 CT angiography of thorax DO Ward Loomisman Work Phone: Start: 05-15-2022 Computed tomography of abdomen and pelvis with contrast DO Ward Zach Work Phone: Start: 05-15-2022 Plain chest X-ray DO Abdullahi moon Zach Work Phone: Start: 05-15-2022 Blood culture for [...] above: 95% relief Start: 10-16-2020 Venous structure (wendy dy structure) MARYCARMEN NAVA Comment on above: right leg Start: 08-04-2020 Duplex scan of lower limb veins Ward Zuniga Work Phone: Start: 03-31-2020 Screening colonoscopy J peggy Zuniga Start: 03-30-2020 SARS Antigen (LFIA) Meet Zuniga Start: 06-29-2017 Release of trigger finger MARYCARMEN NAVA Comment on above: FINGER TRIGGER RELEA SE Start: 05-30-2016 Total knee replacement MARYCARMEN NAVA Comment on above: LEFT Start: 05-02-2016 Right ring trigger f tr release MARYCARMEN NAVA Arthroplasty of knee Ward Zuniga Work Phone: Colonoscopy MARYCARMEN NAVA Drainage biliary cat heter (physical object) Talon Mcbride H/O: hysterectomy MARYCARMEN Sophie YUSUF Hysterectomy Ward Hernandez sarah Work Phone: Replacement of right knee joint MARYCARMEN NAVA Screening for malign ant neoplasm of colon Michael Colunga Other Total colonoscopy Ward Zuniga Work Phone: Comment on above: 2020; Plan of Treatment Date Care Activity Detail Author Start: 01-03-2027 Cholesterol [Mass/volume] in Serum or Plasma Cholesterol [facility] Start: 12-25-2022 Influenza vaccination Influenza Vacc ine (#1) [facility] Start: 11-04-2022 Duplex scan of lower limb veins US venous duplex LE LT [facility] Start: 11-04-2022 US Lower extremity vein - left [facility] Start: 10-06-2022 FUV, Provider: Natan Marinelli, Status: Pen, Time: 1:30 PM FUV, Provider: Natan Marinelli, Status: Pen, Time: 1:30 PM -[facility] [address] DO Work Phone: Start: 08-25-2022 End: 08-25-2022 Patient encounter procedure 08/25/2022 Office Visit Cardiology Ericka Hale MD [address] [place] [address] [facility] Cardiology Start: 07-13-2022 End: 07-13-2022 Patient encounter procedure 07/13/2022 Office Visit Trauma Surgery [facility] Trauma Surgery Start: 07-05-2022 End: 07-05-2022 Patient encounter procedure 07/05/2022 Appointment Radiology [facility] Radiology Start: 06-15-2022 End: 06-16-2023 RF Biliary ducts Views W contrast via existing catheter XA CHOLANGIOGRAM EXISTING ACCESS (RHETT) Imaging Routine Acute cholecystitis Expected: 06/15/2022, Expires: 06/16/2023 [facility] Work Phone: Comment on above: Expected: 06/15/2022 , Expires: 06/16/2023 Start: 05-15-2022 Plain chest X-ray XR chest 1V portab le [facility] Start: 05-15-2022 XR Chest Single view [facility] Start: 05-15-2022 CT angiography of thorax CT angio chest PE protocol [facility] Start: 05-15-2022 CT Chest [facility] Start: 05-15-2022 Bacteria identified in Blood by Culture [facility] Start: 03-02-2022 Screening for malignant neoplasm of breast Mammography [facility] Start: 01-17-2022 COVID-19 Vaccine (2 - Pfizer series) COVID-19 Vaccine (2 - Pfizer series) [facility] Start: 12-25-2021 Annual Wellness Visi t (G0439) Annual Wellness Visit (G0439) [facility] Start: 12-16-2021 [facility] Start: 09-07-2020 Duplex scan of lower limb veins US venous duplex LE LT [facility] Start: 2018 Screening for osteoporosis Bone Densitometry [...] Screening for malignant neoplasm of colon Colonoscopy [facility] CHOLECYSTECTOMY, LAPAROSCOPIC CHOLECYSTECTOMY, LAPAROSCOPIC Routine scheduled Acute cholecystitis [facility] CHOLECYSTECTOMY, LAPAROSCOPIC CHOLECYSTECTOMY, LAPAROSCOPIC Routine scheduled Acute cholecystitis [facility] End: 07-13-2022 Ecg routine ecg w/least 12 lds trcg only w/o i&r EKG 12 LEAD - PERFORM MUSE Routine Once for 1 Occurrences starting 07/13/2022 until 07/13/2022 [facility] Work Phone: Comment on above: Once for 1 Occurrenc es starting 07/13/2022 until 07/13/2022 Patient Education [facility] Work Phone: Patient referral [facility] Work Phone: Immunizations Immunization Date Immunization Notes Care Provider Christine walker 01-02-2023 influenza virus vaccine, unspecified formulation Ketty Alicia [facility] 12-27-2021 Influenza, injectabl e, high-dose seasonal, quadrivalent, 0.7 mL, preservative free (SJF=780) Maegan Morris RN [facility] 12-27-2021 SARS-CoV-2 (COVID-19 ) [id number] Ketty Orzech [facility] 12-27-2021 influenza virus vaccine, unspecified formulation [facility] 03-25-2021 COVID-19 mRNA, Comirnaty (Pfizer) DO Ward Zuniga Work Phone: [facility] 01-25-2021 SARS-CoV-2 (COVID-19 ) Ad26 vaccine, recombinant MARYCARMEN ELIJAH [facility] 01-07-2021 influenza virus vaccine, unspecified formulation Ketty [employer] [facility] 01-07-2021 influenza, high dose seasonal, preservative-free Maegan Morris RN [facility] 01-07-2021 pneumococcal polysaccharide vaccine, 23 valent Maegan Morris RN [facility] 07-10-2020 COVID-19 mRNA, Comirnaty (Pfizer) DO Ward Zuniga Work Phone: [facility] 06-25-2020 SARS-CoV-2 (COVID-19 ) Ad26 vaccine, recombinant MARYCARMEN ELIJAH [facility] 06-18-2020 COVID-19 mRNA, Comirnaty (Pfizer) DO Ward Zuniga Work Phone: [facility] 05-25-2020 SARS-CoV-2 (COVID-19 ) Ad26 vaccine, recombinant MARYCARMEN ELIJAH [facility] 12-09-2019 influenza virus vaccine, unspecified formulation [employer] [facility] 12-09-2019 pneumococcal conjuga te vaccine, 13 valent Maegan Morris RN [facility] 12-09-2019 Seasonal trivalent influenza vaccine, adjuvanted, preservative free Maegan Morris RN [facility] 01-30-2019 KENALOG - 10 mg Michael Colunga Other [facility] Other 12-27-2018 influenza virus vaccine, unspecified formulation Ketty Orzech [facility] 12-27-2018 Seasonal trivalent influenza vaccine, adjuvanted, preservative free Maegan Morris RN [facility] 01-25-2018 influenza virus vaccine, unspecified formulation Ketty Orzech [facility] 01-25-2018 Influenza, injectabl e, Madin [place] Canine Kidney, quadrivalent with preservative Maegan Morris RN [facility] 12-27-2016 influenza virus vaccine, unspecified formulation Ketty Orzech [facility] 12-27-2016 influenza, injectabl e, quadrivalent, preservative free Maegan Morris RN [facility] 07-07-2016 Kenalog -40 mg Michael Colunga Other [facility] Other 01-25-2016 Kenalog -40 mg Michael Colunga Other [facility] Other 11-26-2015 influenza virus vaccine, unspecified formulation Ketty Orzech [facility] 10-19-2015 Kenalog -40 mg Michael Colunga Other [facility] Other 01-22-2013 influenza virus vaccine, unspecified formulation Ketty Orzech [facility] 01-22-2013 influenza, seasonal, injectable Maegan Morris RN [facility] 03-13-2009 novel [id number], preservative-free, injectable Maegan Morris RN [facility] 01-05-2000 hepatitis B vaccine, adult dosage Maegan Morris RN [facility] 08-02-1999 hepatitis B vaccine, adult dosage Maegan Morris RN [facility] 06-29-1999 hepatitis B vaccine, adult dosage Maegan Morris RN [facility] Payers Date Payer Category Payer Self-pay [id number] 2022 Medicare [id number] 2022 Medicare [employer] [id number] 2022-Present [address] [place] [address] O [id number] [id number] 2022 Unknown [id number]. 1.13.56.2.7.3.6 07569.315 2021 Unknown [id number] 1955 Unknown [id number] 2..840.1.784119.3.579.2. 1955 Unknown [id number] 2.16.840.1.748221.3.579.2. 1953 Unknown [id number] 2.16.840.1.235282.3.579.2. 1953 Unknown [id number] 2.16.840.1.243321.3.579.2 1953 Unknown [id number] 2.16.840.1.707831.3.579.2 1953 Unknown [id number] 2.16.840.1.845633.3.579.2 1953 Unknown [id number] 2.16.840.1.979120.3.579.2.73 1953 Unknown [id number] 2.16.840.1.021399.3.579.2. 1953 Unknown [id number] 2.16.840.1.833692.3.579.2. 1953 Unknown [id number] 2.16.840.1.631405.3.579.2. 1953 Unknown [id number] 2.16.840.1.218168.3.579.2. 1953 Unknown [id number] 2.16.840.1.868110.3.579.2. 1953 Unknown [id number] 2.840.1.909996.3.579.2. 1953 Unknown [id number] 2.16.840.1.771635.3.579.2. 1955 Unknown [id number] 2.16.840.1.485309.3.579.2. 1953 Unknown [id number] 2.16.840.1.406200.3.579.2. 1953 Unknown [id number] 2.840.1.350556.3.579.2.356 1953 Unknown [id number] 2.16.840.1.618315.3.579.2.356 1953 Unknown [id number] 2.16.840.1.285980.3.579.2.727 1953 Unknown [id number] 2.16.840.1.319584.3.579.2.72 1953 Unknown [id number] 2.16.840.1.538301.3.579.2. 1953 Unknown [id number] 2.16.840.1.004904.3.579.2.727 1953 Unknown [id number] 2.16.840.1.477683.3.579.2. 1953 Unknown [id number] 2.16.840.1.674713.3.579.2. 1953 Unknown [id number] 2.16.840.1.125361.3.579.2.1258 1953 Unknown [id number] 2.16.840.1.055628.3.579.2.1258 1953 Unknown [id number] 2..840.1.798066.3.579.2.1258 1953 Unknown [id number] 2..840.1.260217.3.579.2.1258 1953 Unknown [id number] 2..840.1.732696.3.579.2.1258 1953 Unknown [id number] 2.16.840.1.912585.3.579.2.1259 Unknown [id number] Unknown [id number] 2.16.840.1.448414.3.579.2.531 Unknown [id number] 2.16.840.1.527577.3.579.2.531 Unknown [id number] 2.16.840.1.309110.3.579.2.531 Unknown [id number] 2.16.840.1.092168.3.579.2.531 Unknown [id number] 2.16.840.1.797528.3.579.2.531 Unknown [id number] 2.16.840.1.280846.3.579.2.531 Unknown [id number] 2.16.840.1.273302.3.579.2.531 Unknown [id number] 2.16.840.1.928654.3.579.2.531 Unknown [id number] 2.16.840.1.421840.3.579.2.531 Social History Date Type Detail Facility Start: 03-31-2020 End: 02-27-2023 Tobacco smoking status NHIS Ex-smoker (finding) [facility] Start: 1955 Sex Assigned At Female F [facility] Sex Assigned At Female [facility] Other Start: 05-15-2022 End: 12-17-2022 Tobacco smoking status NHIS Current some day smoker [facility] End: 03-27-2009 History of tobacco use Current smoker [facility] End: 03-27-2009 History of tobacco use Cigarette Smoker [facility] Start: 05-16-2022 Cigarettes smoked current (pack per day) - Reported 1 [facility] Comment on above: occasionaly cup of c offee; 2009; Start: 1955 Sex Assigned At Not on file [facility] Start: 05-06-2022 End: 05-16-2022 Exposure to SARS-CoV-2 (event) Not sure [facility] Start: 06-22-2022 End: 03-02-2023 Tobacco smoking status MOIS Never smoked tobacco (finding) [facility] Tobacco smoking status Never [facility] Goals Date Patient Goal Desired Activity /State Functional Status Date Assessment Result Facility 03-02-2023 Functional Status N/A [facility] 09-26-2022 Functional Status N/A [facility] 07-18-2022 Functional Status No [facility] 11-30-2021 Functional Status N/A [facility] Clinical Notes 12-29-2020 to 03-02-2023 Note Date [...] provider. Document Revised: 07/22/2021 Document Reviewed: 07/22/2021 [employer] Patient Education 2022 Food Reporter. Follow Up Care 11/30/2021 13:34:28 With:DARRYN Alicia APRN, Ketty Jaeger, SHAHNAZ, URL Address: When:Within 1 Year(s) [facility] 02-27-2023 Progress note Note Date/Time February 27, 2023 2:36pm [facility] [address] [place] [address] Wound Center Provider Note Signed Patient: Gerry Victoria MR#: [id number] : 1955 Acct:[id number] Age/Sex: 67 / F Copies to: Ward Zuniga,DO Adelia Saldana, PRIVATE WATCHMAN~ HPI Date of Visit Date of Visit: Date of Service: 02/27/2023 Time of Service: 14:33 Narrative HPI: 02/02/23 Gerry is a 67 year old presenting to [facility] wound care for an initialvisit for [...] tolerate the treatment. Had been referred to [place] [facility] at her last visit here and will have to see what happened with that. 02/13/23 appears to have fungal rash, topical nystatin was escribed, unna enzo, [facility] as before 02/27/23 no fungal rash but now looks like dermatitis and so topical steroid and coconut oil was applied, has venous procedure in [place] tomorrow, 2 week appt here, can call if she feels like she needs an antibiotic if the steroid doesn't calm down the skin Subjective Pain Left Lower Leg: Pain Description: Intermittent Pain Intensity: 0 Wound/Ulcer History When did wound start?: January 2023 Left lateral lower leg ulcer Mode of Arrival/ Heel Painter: Personal vehicle Lives with:: Alone Appetite Description: Within Normal Limits Who helps w/ dressing change?: Home Health Why Do You Need Help?: Can't Reach Ulcer, Limited mobility, Unsafe leave home byself and Taxing effort to leave home Smoking Status: Former smoker PMFSH Medical History (Updated 02/27/23 @ 14:36 by [...] Appearance: Beefy Red, Epithelial Tissue or Bridge, [place] and Yellow Percent of Wound Bed Granulated/Red: 98 Percent of Devitalized: 2 Length (cm): 12.0 Width (cm): 10.0 Depth (cm): 0.1 CM Sq: 120.000 Surrounding Tissue Appearance: [place] and Hyperpigmented Surrounding Tissue Temp: Warm Drainage [...] Signed By: <Electronically signed by CUBA Saldana> 02/27/[address] [place] [address] Work Phone: 1(479) 400-946311-20-2023 Progress note Author Adelia Saldana [facility] February 13, 2023 10:33am Note Date/Time February 13, 2023 10:33am [facility] [address] [place] [address] Wound Center Provider Note Signed Patient: Gerry Victoria MR#: [id number] : 1955 Acct:[id number] Age/Sex: 67 / F Copies to: DO Adelia Cruz APRN~ HPI Date of Visit Date of Visit: Date of Service: 02/13/2023 Time of Service: 10:31 Narrative HPI: 02/02/23 Gerry is a 67 year old presenting to [facility] wound care for an initialvisit for [...] have fungal rash, topical nystatin was escribed, unna wrap, hh as before Subjective Pain Left Lower Leg: Pain Description: Intermittent Pain Intensity: 4 Pain Management Techniques Other/Comment: PAIN IS PINCHY Wound/Ulcer History When did wound start?: January 2023 Left lateral lower leg ulcer Mode of Arrival/ Heel Painter: Personal vehicle Lives with:: Alone Appetite Description: Within Normal Limits Who helps w/ dressing change?: Home Health Why Do You Need Help?: Can't Reach Ulcer, Limited mobility, Unsafe leave home byself and Taxing effort to leave home Smoking Status: Former smoker [facility] Medical History (Updated 02/13/23 @ 10:33 by [...] Breakdown Bed Appearance: Epithelial Tissue or Bridge, [place] and Yellow Percent of Wound Bed Granulated/Red: 95 Percent of Devitalized: 5 Length (cm): 12.5 Width (cm): 8.5 Depth (cm): 0.1 CM Sq: 106.250 Surrounding Tissue Appearance: [place] and Hyperpigmented Surrounding Tissue Temp: Warm Drainage [...] 10 Dictated By: Adelia Saldana APRN DD/ 1031 Signed By: <Electronically signed by CUBA Saldana> 02/13/23 1033 [facility] Work Phone: 1(374) 616-103411-09-2023 Progress note Author Humphrey Major [facility] February 02, 2023 9:37am Note Date/Time February 02, 2023 7 :50am [facility] [address] [place] [address] Wound Center Provider Note Signed Patient: Gerry Victoria MR#: [id number] : 1955 Acct:[id number] Age/Sex: 67 / F Copies to: MD Ward Almaguer,DO Adelia Saldana APRN~ HPI Date of Visit Date of Visit: Date of Service: 02/02/2023 Time of Service: 07:50 Narrative HPI: 02/02/23 Gerry is a 67 year old presenting to [facility] wound care for an initialvisit for [...] lateral lower leg ulcer Mode of Arrival/ Heel Painter: Personal vehicle Lives with:: Alone Appetite Description: Within Normal Limits Who helps w/ dressing change?: Home Health Why Do You Need Help?: Can't Reach Ulcer, Limited mobility, Unsafe leave home byself and Taxing effort to leave home Smoking Status: Former smoker [facility] Medical History (Updated 02/02/23 @ 07:52 by [...] Stasis Ulcer Thickness: Skin Breakdown Bed Appearance: [place] and Yellow Percent of Wound Bed Granulated/Red: 90 Percent of Devitalized: 10 Length (cm): 4 Width (cm): 2 Depth (cm): 0.1 CM Sq: 8.000 Surrounding Tissue Appearance: [place] and Hyperpigmented Surrounding Tissue Temp: Warm Drainage [...] 13 Dictated By: Adelia Saldana APRN DD/ 0750 Signed By: <Electronically signed by CUBA Saldana> 02/02/23 0754 <Electronically signed by MD Humphrey Major> 02/02/23 0937 [facility] Work Phone: 1(758) 909-273810-09-2023 Evaluation note* Encounter Date Diagnosis Assessment Notes [...] in a month to assess her progress. [facility] Other 07-31-2023 Evaluation note* Encounter Date Diagnosis [...] her back when the ultrasound is complete. [facility] Other 07-11-2023 NoteMicrobiology PROCEDURE: Blood Culture Charcoal [R1] SOURCE: Blood BODY SITE: Arm L COLLECTED DATE/TIME: 09/27/2022 01:12 EDT RECEIVED DATE/TIME: 09/27/2022 01:37 EDT START DATE/TIME: 09/27/2022 01:37 EDT FREE TEXT SOURCE: IV start Bala SNOWDEN, Michelle Mckenna PA-C, Michelle Flores FINAL REPORTS Final Report [] Verified Date/Time: 10/04/2022 07:00 EDT No growth at 7 days. Performing Locations R1: This [facility] performed at: [facility], [address] [place] [address], [id number] [place] [address], [id number] Cole StreetComment on above:Performed By: #### [id number] #### [facility] [address] [place] [address] [id number] NoteMicrobiology PROCEDURE: Blood Culture Charcoal [R1] SOURCE: Blood BODY SITE: Arm R COLLECTED DATE/TIME: 09/27/2022 01:22 EDT RECEIVED DATE/TIME: 09/27/2022 01:37 EDT START DATE/TIME: 09/27/2022 01:37 EDT FREE TEXT SOURCE: rt ac Bala SNOWDEN, Michelle Mckenna PA-C, Michelle Weber. FINAL REPORTS Final Report [] Verified Date/Time: 10/04/2022 07:00 EDT No growth at 7 days. Performing Locations R1: This test was performed at: [facility], [address] [place] [address], [id number] [place] [address], [address] [place], [place] [address]Comment on above:Performed By: #### [id number] #### [facility] [address] [place] [address] [id number] Evaluation + Plan noteExtracted from: Title:Admission H & P Author:Mailha PADILLA DO Date:09/27/22 1. Cellulitis of leg (L03.11 9: Cellulitis of unspecified part of limb) IV Zosyn. Patient was given 1 dose of vancomycin in the emergency department. Will screen for MRSA. If MRSA screen is positive we will continue vancomycin. 2. CAD (coronary atherosclerotic disease) (I25.10: Atherosclerotic heart disease of [place] coronary artery without angina pectoris) No active [...] deep vein thrombosis (DVT) prophylaxis (Z79.899: Other continuous churn buttermaker (current) drug therapy) SCD, enoxaparin Orders: acetaminophen, [...] be observation status. Extracted from: Title:ED Note Author:Bala SNOWDEN, Michelle Santiago Date:09/27/22 1. Cellulitis of leg (L03.11 9: [...] Date:12/01/2022 01:00:00 PM Scheduled Provider:MARYCARMEN NAVA PA-C Location:[facility] Appointment Type:URO Office Visit Diagnostic Tests Pending * Blood Culture Charcoal 09/27/22 * Blood Culture Charcoal 09/27/22 * MRSA Screen 09/27/22 * CBC w/ Auto Diff 09/28/22 * Basic Metabolic Panel 09/28/22 * Magnesium Level 09/28/22 [facility]07-04-2023 NoteI was called to the bedside and [...] soon as possible. Alexx Beal DO, FAAEMFisher Mercy Medical CenterComment on above:Result Comment: Electronically Signed By: Alexx Beal DO\.br\Date and Time Signed: 09/27/22 08:17 [id number] Hospital Discharge instructions Patient Education 09/27/2022 08:15:11 Cellulitis, Adult, Mmfe-ip-Lfiq Cellulitis, Adult Cellulitis is a skin infection. [...] Follow these instructions at home: Medicines Take wjcv-mtr-pumyvmb and prescription medicines only as told by [...] provider. Document Revised: 12/23/2021 Document Reviewed: 12/23/2021 [employer] Patient Education 2022 Food Reporter. Follow Up Care 09/26/2022 22:54:12 With:WARD ZUNIGA Address: [address] [place] [id number] When:09/30/2022 [facility]07-04-2023 NoteChief Complaint pt to ED with c/o [...] psychiatric thoughts. Lab Results WBC: 5.9 E9/L (09/27/22:12:00) RBC: 3.7 E12/L Low (09/27/22:12:00) HGB: 9.6 gm/dL Low (09/27/22:12:00) Hct: 29.2 % Low (09/27/22:12:00) MCV: 79.9 fL Low (09/27/22:12:00) MCH: 26.4 pg Low (09/27/22:12:00) MCHC: 33 gm/dL (09/27/22:12:00) RDW: 15.9 % High (09/27/22:12:00) Platelet: 249 E9/L (09/27/22:12:00) MPV: 7.9 fL (09/27/22:12:00) Neutro Auto: 61.4 % (09/27/22:12:00) Lymph Auto: 18 % (09/27/22:12:00) Thomas Auto: 11.2 % (09/27/22:12:00) Eos Auto: 8.4 % High (09/27/22:12:00) Basophil Auto: 1 % (09/27/22:12:00) Neutro Absolute: 3.6 E9/L (09/27/22:12:00) Lymph Absolute: 1.1 E9/L (09/27/22:12:00) Thomas Absolute: 0.7 E9/L (09/27/22:12:00) Eos Absolute: 0.5 E9/L (09/27/22:12:00) Basophil Absolute: 0.1 E9/L (09/27/22:12:00) Sed Rate Automated: 25 mm/hr (09/27/22:12:00) Glucose Lvl: 84 mg/dL (09/27/22 01:12:00) BUN: 17 mg/dL (09/27/22:12:00) Creatinine: 1.2 mg/dL (09/27/22:12:00) eGFR: 49 mL/min/1.73 m2 Low (09/27/22:12:00) BUN/Creat Ratio: 14 (09/27/22:12:00) Sodium Lvl: 138 mmol/L (09/27/22:12:00) Potassium Lvl: 3.6 mmol/L (09/27/22:12:00) Chloride: 101 mmol/L (09/27/22:12:00) CO2: 29 mmol/L (09/27/22:12:00) AGAP: 12 mEq/L (09/27/22:12:00) Calcium Lvl: 8.9 mg/dL (09/27/22:12:00) Alk Phos: 79 Int._Unit/L (09/27/22:12:00) ALT: 11 Int._Unit/L (09/27/22:12:00) AST: 19 Int._Unit/L (09/27/22:12:00) Total Protein: 7 gm/dL (09/27/22:12:00) Albumin Lvl: 3.8 gm/dL (09/27/22:12:00) Globulin: 3.2 gm/dL (09/27/22:12:00) A/G Ratio: 1.2 (09/27/22:12:00) Bili Total: 0.6 mg/dL (09/27/22:12:00) Bili Direct: 0.1 mg/dL (09/27/22:12:00) Bili Indirect: 0.5 mg/dL (09/27/22:12:00) Lactic Acid Lvl: 0.5 mmol/L (09/27/22:12:00) CRP: 7.5 mg/dL High (09/27/22:12:00) Assessment/Plan 1. Cellulitis of leg (L03.119: Cellulitis of unspecified part of limb) IV Zosyn. Patient was given 1 dose of vancomycin in the emergency department. Will screen for MRSA.If MRSA screen is positive we will continue vancomycin. 2. CAD (coronary atherosclerotic disease) (I25.10: Atherosclerotic heart disease of [place] coronaryartery without angina pectoris) No active anginal complaints. We will resume home medications once reconciled 3. RLS (restless legs syndrome) (G25.81: Restless legs syndrome) Resume home medications once reconciled. 4. Hypo (more content not included)...[facility] CenterComment on above:Result Comment: Electronically Signed By: Maliha PADILLA DO.dahlia\Date and Time Signed: 09/27/22 04:19 [id number] Hospital Discharge instructions Patient Education 07/26/2022 13:13:28 Post Op Patient Instructions - FT (CUSTOM) 07/26/2022 12:47:31 Minimally Invasive Cholecystectomy, Care After, Zlei-xn-Egyp Minimally Invasive Cholecystectomy, Care After What can [...] Follow these instructions at home: Medicines Take ejvi-eay-tylxntm and prescription medicines only as told by [...] cannot use soap and water, use hand strainer tender. ?Change your bandage. ?Leave stitches (sutures) or [...] provider. Document Revised: 09/14/2021 Document Reviewed: 09/14/2021 [employer] Patient Education 2022 Food Reporter. 07/26/2022 12:45:51 Cholelithiasis Cholelithiasis Cholelithiasis is a [...] Follow these instructions at home: Medicines Take dxsa-pqu-ngvvxun and prescription medicines only as told by [...] important. Where to find more information National [employer] of Diabetes and Digestive and Kidney Diseases: [...] provider. Document Revised: 02/03/2020 Document Reviewed: 02/03/2020 [employer] Patient Education 2022 Food Reporter. Follow Up Care 07/15/2022 10:10:38 With:trauma clinic Address: [address] [place] [address] 3, second floor, [address] [place] [address]- [phone] When:1 to 2 weeks Comments:plan for telephone follow up 08/05/22. We will call you between the hours of 10 am and 1pm on that day. [facility]05-02-2023 Evaluation + Plan noteExtracted from: Title:ANES Post General Author:Hugo Winston DO Date:07/26/22 Plan Transfer/Discharge: Patient exhibiting no signs of N/V. Hydration status is adequate. Extracted from: Title:Mundo Basic PRE Author:Luca Winston DO Date:07/26/22 Plan [employer] Anesthesiologists (ASA) physical status classification: Class III. Anesthetic Preoperative Plan: Anesthesia General. Extracted from: Title:Mundo Basic PRE Author:Luca Winston DO Date:07/26/22 Plan [place] [employer] Anesthesiologists (ASA) physical status classification: Class III. Anesthetic Preoperative Plan: Anesthesia General. Future Appointments Appointment Date:08/05/2022 11:00:00 AM Scheduled Provider: Location:.Trauma Clinic Appointment Type:Trauma Phone Visit (FT) Appointment Date:12/01/2022 01:00:00 PM Scheduled Provider:MARYCARMEN NAVA PA-C Location:[facility] Appointment Type:URO Office Visit [facility]04-19-2023 NoteProgress Note: Clinic Visit after hospitalization for [...] perc merlyn tube until surgery Nikita Hein MDUniversity Hospitals Conneaut Medical CentermSilica [id number] History of Present illness Narrative* Nikita Hein [...] perc merlyn tube until surgery Nikita Hein MD documented in this [id number] NoteIR CONSULT Procedure: cholangiogram and percutaneous cholecystotomy [...] at home Case discussed with IR attending operator electronic warfare El Hollis vice president research PGY-3[facility] [id number] History and physical note* El Hollis MD [...] at home Case discussed with IR attending operator electronic warfare El Hollis vice president research PGY-3 [facility] Work Phone: 1(787) 893-106404-12-2023 History and physical note* El Hollis MD [...] at home Case discussed with IR attending operator electronic warfare El Hollis vice president research PGY-3 documented in this [id number] Telephone encounter Note* Telephone Encounter - Kendra Harrison RN - 07/06/2022 8:53 PM EDT Situation: Pt called states she is unsure how to flush gall bladder tube since it was changed yesterday. Background: 07/05/22 Procedure: Cholecystogram with catheter exchange Assessment: See triage Recommendation: Contacted IR operator electronic warfare, Dr Hollis advised for pt to contact [...] No Protocols used: Post-Op Incision Symptoms and Qygnkilik-H-WS [id number] Miscellaneous Notes* Telephone Encounter - Kendra Harrison RN - 07/06/2022 8:53 PM EDT Situation: Pt called states she is unsure how to flush gall bladder tube since it was changed yesterday. Background: 07/05/22 Procedure: Cholecystogram with catheter exchange Assessment: See triage Recommendation: Contacted IR operator electronic warfare, Dr Hollis advised for pt to contact [...] No Protocols used: Post-Op Incision Symptoms and Loburghxu-E-UI documented in this [id number] Telephone encounter Note* Telephone Encounter - Taniya Coley - 07/06/2022 9:10 AM EDT Sindy Ratliff Patient: Gerry Victoria [phone] Ms. Victoria has an appt w/Ritter on 07/13/2022 at 2:45 pm. Pt complaining about severe pain last night, when she moved, it was an ache. She did not tell me where the pain was coming from, when I asked her. She stated that today she feels better, but she was concerned about the pain she experienced last night 07/05/2022. [id number] Miscellaneous Notes* Telephone Encounter - Taniya Coley - 07/06/2022 9:10 AM EDT Sindy Ratliff Patient: Gerry Victoria [phone] Ms. Victoria has an appt w/Ritter on 07/13/2022 at 2:45 pm. Pt complaining about severe pain last night, when she moved, it was an ache. She did not tell me where the pain was coming from, when I asked her. She stated that today she feels better, but she was concerned about the pain she experienced last night 07/05/2022. documented in this [id number] NoteEXAMINATION: XA CHOLANGIOGRAM EXISTING ACCESS (RHETT) 07/05/2022 [...] with successful exchange of drainage catheter. MACRO: NoneThAultman Alliance Community HospitalmSilica [id number] NotePOST-PROCEDURE NOTE Procedure: Cholecystogram with catheter exchange Pre-operative Diagnosis: History of acute cholecystitis managed with existing catheter. Post-operative Diagnosis: Same as above Attending: Dr. Fernando Foam Caster: None A TIME OUT was performed prior [...] full procedural details. Marcella Fernando MD RadiologyThe [facility]04-11-2023 NoteEXAMINATION: XA CHOLANGIOGRAM EXISTING ACCESS (RHETT) 07/05/2022 03:27 PM CLINICAL HISTORY: Rad Procedure required: = cholangiogram through existing perc merlyn tube,eval foropen cystic duct ASSOCIATED DIAGNOSIS: Acute cholecystitis ORDERING PROVIDER: NIKITA HEIN TECHNMAYUR NOTE: 10F x 24cm Single Step Drainage [...] successful exchange of drainage catheter. MACRO: None [id number] NotePre-Procedure Note HISTORY: Procedure: Cholangiogram via existing [...] Directives (Living will, health care power of insurance defense attorney): none Patient Recent Code Status: Prior Code Status For This Procedure: Full Code Marcella Fernando MD [facility]iologyUK [facility]04-11-2023 Telephone encounter Note* Telephone Encounter - Anya Morelos - 07/05/2022 3:11 PM EDT Patient returned clinic call. Informed of message per notes below. Patient verbalized understandingand voiced no further questions. [id number] Miscellaneous Notes* Telephone Encounter - Anya Morelos [...] left the voice message. documented in this [id number] Miscellaneous Notes* Telephone Encounter - Anya Morelos [...] appt date and time. documented in this [id number] Telephone encounter Note* Telephone Encounter - Taniya [...] and accepted the appt date and time. [id number] Note* Post-Procedure Note - Marcella Fernando MD - 07/05/2022 2:44 PM EDT POST-PROCEDURE NOTE Procedure: Cholecystogram with catheter exchange Pre-operative Diagnosis: History of acute cholecystitis managed with existing catheter. Post-operative Diagnosis: Same as above Attending: Dr. Fernando Foam Caster: None A TIME OUT was performed prior [...] full procedural details. Marcella Fernando MD Radiology [facility] Work Phone: 1(989) 659-407204-11-2023 Miscellaneous Notes* Post-Procedure Note - Marcella Fernando MD - 07/05/2022 2:44 PM EDT POST-PROCEDURE NOTE Procedure: Cholecystogram with catheter exchange Pre-operative Diagnosis: History of acute cholecystitis managed with existing catheter. Post-operative Diagnosis: Same as above Attending: Dr. Fernando Foam Caster: None A TIME OUT was performed prior [...] Directives (Living will, health care power of insurance defense attorney): none Patient Recent Code Status: Prior Code Status For This Procedure: Full Code Marcella Fernando MD Radiology documented in this [id number] Note* Pre-Procedure Note - Marcella Fernando MD [...] Directives (Living will, health care power of insurance defense attorney): none Patient Recent Code Status: Prior Code Status For This Procedure: Full Code Marcella Fernando MD Radiology [id number] Telephone encounter Note* Telephone Encounter - Taniya Coley - 06/27/2022 1:27 PM EDT Pt called c/o sx of poor leg circulation,and Gaudencio spoke to her to triage the patient. [id number] Miscellaneous Notes* Telephone Encounter - Taniya Coley - 06/27/2022 1:27 PM EDT Pt called c/o sx of poor leg circulation,and Gaudencio spoke to her to triage the patient. documented in this [id number] NoteProgress Note: Clinic Visit after hospitalization for [...] for 2 mg QID Nikita Hein MDThe [facility]03-25-2023 Note* Addendum Note - Nikita Hein MD - 06/18/2022 3:47 PM EDTAddended by: NIKITA HEIN on: 06/18/2022 03:47 PM Modules accepted: Orders, Level of Service [id number] Miscellaneous Notes* Addendum Note - Nikita Hein MD - 06/18/2022 3:47 PM EDTAddended by: NIKITA HEIN on: 06/18/2022 03:47 PM Modules accepted: Orders, Level of Service documented in this [id number] History of Present illness Narrative* Nikita Hein [...] QID Nikita Hein MD documented in this [id number] Telephone encounter Note* Telephone Encounter - Laura Faust - 06/17/2022 11:27 AM EDT Sophy transferred phone call to me, when the patient and I started talk I realized it was the patientI francie Beckett working on since Dr. Hein seen her in clinic on [facility]. Sophy said she spoke to patient yesterday, so I just told her what Sophy told me that Dr. Hein will handle the Rx to have the scan done out where she lives and that Sophy will get it to her in the mail by Monday [id number] Miscellaneous Notes* Telephone Encounter - Laura Faust - 06/17/2022 11:27 AM EDT Sophy transferred phone call to me, when the patient and I started talk I realized it was the patientI had Sophy working on since Dr. Hein seen her in clinic on [facility]. Sophy said she spoke to patient yesterday, so I just told her what Sophy told me that Dr. Hein will handle the Rx to have the scan done out where she lives and that Sophy will get it to her in the mail by Monday documented in this [id number] Telephone encounter Note* Telephone Encounter - Taniya Coley - 06/16/2022 2:02 PM EDT Sindy Morales, Patient: Gerry Victoria [phone] Ms. Victoria had a visit with Dr. Conley on Monday06/15/2022, seen by Dr. Hein in yesterday's clinic. Questions: Ultrasound order was placed for Ms. Victoria, do she have to come her to [facility] to have the ultrasound, or can she have the ultrasound done in [place]? (there is not a [facility] in [place]) Medication refill of Ropinirole 2mg 1-tab QD was not received by her pharmacy, can you call in the prescription to my pharmacy at ([facility] ) [phone]?. I am waiting for Carmen, or and or Dr. Conley to respond. Sophy Knowles was told that Dr. Hein was out of town and that she will receive the prescription in the mail.I will call the patient to find out what hospitals she will be going to in [place] [phone] fax:[phone] Gaudencio spoke to her about the prescription and to contact her pharmacy about the ropinirole 2 mg to [facility]. Addendum: IR procedure, Gaudencio will follow-up with [facility] to see if they can do the IR procedure, we will submit or fax orders at that time. [id number] Miscellaneous Notes* Telephone Encounter - Taniya Coley - 06/16/2022 2:02 PM EDT Sindy Morales, Patient: Gerry Victoria [phone] Ms. Victoria had a visit with Dr. Conley on Monday06/15/2022, seen by Dr. Hein in yesterday's clinic. Questions: Ultrasound order was placed for Ms. Victoria, do she have to come her to [facility] to have the ultrasound, or can she have the ultrasound done in [place]? (there is not a [facility] in [place]) Medication refill of Ropinirole 2mg 1-tab QD was not received by her pharmacy, can you call in the prescription to my pharmacy at ([facility] ) [phone]?. I am waiting for Carmen, or and or Dr. Conley to respond. Sophy documented in this [id number] Miscellaneous Notes* Telephone Encounter - Taniya Coley - 06/16/2022 2:02 PM EDT Sindy Morales, Patient: Gerry Victoria [phone] Ms. Victoria had a visit with Dr. Conley on Monday06/15/2022, seen by Dr. Hein in [facility]. Questions: Ultrasound order was placed for Ms. Victoria, do she have to come her to [facility] to have the ultrasound, or can she have the ultrasound done in [place]? ([facility] [place]) Medication refill of Ropinirole 2mg 1-tab QD was not received by her pharmacy, can you call in the prescription to my pharmacy at ([facility] ) [phone]?. I am waiting for Carmen, or and or Dr. Conley to respond. Sophy Pt was told that Dr. Hein was out of town and that she will receive the prescription in the mail.I will call the patient to find out what hospitals she will be going to in [place] [phone] fax:[phone] Gaudencio spoke to her about the prescription and to contact her pharmacy about the ropinirole 2 mg to [facility]. documented in this [id number] Miscellaneous Notes* Telephone Encounter - Taniya Coley - 06/16/2022 2:02 PM EDT Sindy Morales, Patient: Gerry Victoria [phone] Ms. Victoria had a visit with Dr. Conley on Monday06/15/2022, seen by Dr. Hein in [facility]. Questions: Ultrasound order was placed for Ms. Victoria, do she have to come her to [facility] to have the ultrasound, or can she have the ultrasound done in [place]? (there is not a [facility] in [place]) Medication refill of Ropinirole 2mg 1-tab QD was not received by her pharmacy, can you call in the prescription to my pharmacy at ([facility] ) [phone]?. I am waiting for Carmen, or and or Dr. Conley to respond. Sophy Pt was told that Dr. Hein was out of town and that she will receive the prescription in the mail.I will call the patient to find out what hospitals she will be going to in [place] [phone] fax:[phone] Gaudencio spoke to her about the prescription and to contact her pharmacy about the ropinirole 2 mg to [facility]. Addendum: IR procedure, Gaudencio will follow-up with [facility] to see if they can do the IR procedure, we will submit or fax orders at that time. documented in this [id number] Telephone encounter Note* Telephone Encounter - Maegan [...] Not assessed Protocols used: Post-Op Symptoms and Ihvwpmdkk-D-NS, Breathing Phfnscqhyu-J-UU [id number] Miscellaneous Notes* Telephone Encounter - Maegan Mroris RN - 05/27/2022 4:02 PM EST Situation: [...] Not assessed Protocols used: Post-Op Symptoms and Efryefvxp-V-RF, Breathing Ukskepuqya-Z-DQ documented in this [id number] NoteDISCHARGE [address] [phone] Gerry Victoria Date of : 1955 66 year oldfemale Attending Ward Graves MD Date of Admission 05/16/2022 Date of Discharge 05/25/2022 [facility] DIVISION OF ACUTE CARE SURGERY EMERGENCY GENERAL [...] and h/o paroxysmal SVT who presented to [facility] with epigastric pain with nausea and vomiting. Patient describes onset of pain on prior day that has increased since then. Shortly after onset of pain, patient experienced nausea and persistent vomiting, now unable to tolerate PO intake. Denies fevers, chills. She presented to [facility] where EKG demonstrated 'hyperacute T waves' in multiple leads without evidence of STEMI. Troponin originally 139, then 381 on repeat. CTA was performed and did not reveal dissection or PE. CT did demonstrate acute inflammation of the gallbladder with a stone at the neck. A central line was placed for resuscitation purposes and the patient was transferred to [facility] for further evaluation. Prior to transfer, lab work without leukocytosis (10.7) and LFTs/Lipase without abnormality. ACS consulted upon arrival to [facility] for cholecystitis. She was admitted to the SDU for telemetry under EGS but transferred to [facility] on 05/20/22 SIGNIFICANT FINDINGS: N/A Incidental findings reviewed by AEM on 05/24/22. No incidental findings to discuss. HOSPITAL COURSE: 05/16/2022: Transferred from [facility] ED with cholecystitis, up-trending troponin, and unclear EKG findings. Up-trending leukocytosis, down-trending troponin by PM. Cardiology following. Zosyn started. 05/17/2022: rCT with worsening gallbladder inflammation w/o free air or rupture. Percutaneous cholecystotomy tube placement with IR. 05/19/2022: Bilious emesis, NGT placed 05/20/2022: Transferred to [facility] 05/21/2022: Zosyn course completed (4 days s/p drain) 05/22/2022: YANN, ongoing bilious NGT output 05/23/2022: LHC with mild non-obstructive diffuse coronary artery disease. [...] - Seen resting supine in bed in [facility] -Neurologic - No focal deficits, clear speech [...] venous stasis t (more content not included)...[facility]06-12-1022 NoteDISCHARGE SUMMARY [place] [phone] Gerry Victoria Date of : 1955 66 year oldfemale Attending Ward Graves MD Date of Admission 05/16/2022 Date of Discharge 05/24/2022 [facility] DIVISION OF ACUTE CARE SURGERY EMERGENCY GENERAL [...] and h/o paroxysmal SVT who presented to [facility] with epigastric pain with nausea and vomiting. Patient describes onset of pain on prior day that has increased since then. Shortly after onset of pain, patient experienced nausea and persistent vomiting, now unable to tolerate PO intake. Denies fevers, chills. She presented to [facility] where EKG demonstrated 'hyperacute T waves' in multiple leads without evidence of STEMI. Troponin originally 139, then 381 on repeat. CTA was performed and did not reveal dissection or PE. CT did demonstrate acute inflammation of the gallbladder with a stone at the neck. A central line was placed for resuscitation purposes and the patient was transferred to [facility] for further evaluation. Prior to transfer, lab work without leukocytosis (10.7) and LFTs/Lipase without abnormality. ACS consulted upon arrival to [facility] for cholecystitis. She was admitted to the SDU for telemetry under EGS but transferred to [facility] on 05/20/22 SIGNIFICANT FINDINGS: N/A Incidental findings reviewed by AEM on 05/24/22. No incidental findings to discuss. HOSPITAL COURSE: 05/16/2022: Transferred from [facility] ED with cholecystitis, up-trending troponin, and unclear EKG findings. Up-trending leukocytosis, down-trending troponin by PM. Cardiology following. Zosyn started. 05/17/2022: rCT with worsening gallbladder inflammation w/o free air or rupture. Percutaneous cholecystotomy tube placement with IR. 05/19/2022: Bilious emesis, NGT placed 05/20/2022: Transferred to [facility] 05/21/2022: Zosyn course completed (4 days s/p drain) 05/22/2022: YANN, ongoing bilious NGT output 05/23/2022: [facility] with mild non-obstructive diffuse coronary artery disease. [...] - Seen resting supine in bed in [facility] -Neurologic - No focal deficits, clear speech [...] discharge: improved Diet: (more content not included)...The [facility] [id number] Note PHYSICAL THERAPY PROGRESS SUMMARY Patient seen from 09 to 09 on GC5E unit for 15 minute treatment. SUBJECTIVE: Patient Subjective/Goals: It's a good day! OBJECTIVE: Appearance: Pt in bed upon entering room w/ IR drain intact Behavior: alert,cooperative Pain: Site/Location: pt does not report pain; Pain Scale: 0/10 Pain Relief Interventions Implemented: None required; No pain at this time Mobility NA Dep Max Mod Min CG CS DS MA I Comment Supine to sit x Via [...] With Patients permission ordered no equipment via [employer]4objects Order. If any questions contact [facility] Provider at [phone]. Pt has rolling walker to use if [...] d/t achieving PT goals. Dara SOSA Beeper #[phone] Agree with above; D/C Acute PT this date 2* to modified (I) level of function. Tawny Peñaloza, PT, MPT (B) [phone] NA = Not Assessed, I = Independent, MA = Modified Independent, Sup = Supervised, Set up = Physical Assistance for Set-up Only, Min = Minimal Assistance, Mod = Moderate Assistance, Max = Maximal assistance; Dep = Dependent; AROM = Active Range of Motion; PROM = Passive Range of Motion; MMT = Manual Muscle TestUK Healthcare02-27-2023 NoteSusan Luciaion [id number] Procedure Indication: Other: Myocardial injury due to [...] needed: No Anticoagulation Plan: None Attending: Deandre [facility]02-26-2023 NoteOCCUPATIONAL THERAPY INITIAL EVALUATION Patient seen from [...] treatment Appearance: supine in bed on arrival, RIJ, NG on suction, surgical drain to R abdomen Alertness: WFL Affect: WNL Cooperation/Behavior: Appropriate dialogue with therapist and Pleasant and cooperative Communication: WFL Pain: Pain rating: unrated/10, Location: abdomen, pt reports nausea Pain Relief Interventions Implemented: Positioning and RN aware and reports patient received medication according to time schedule Self Care: Assistance Level Dep Max Mod Min CG CS DS MA I Set-Up Comment Feeding x Anticipated, NPO [...] Dep Max Mod Min CG CS DS MA I Set-Up Comment Toilet Transfers x Anticipated [...] Guard Assist/Supervision 4 - Non = Modified Perry/Independent ASSESSMENT: Patient is functionally appropriate for discharge [...] Independent Patient will (more content not included)...[facility] IslandFanchimp [id number] Note PHYSICAL THERAPY PROGRESS SUMMARY Patient seen from 1:27pm to 1:47pm on GC5E unit for 20 minute treatment. SUBJECTIVE: Patient Subjective/Goals: I'm glad you're here. OBJECTIVE: Appearance: IV, Drain-IR x 1, and NG to wall suction (clamped for session) Behavior: Awake, Cooperative Pain: Site/Location: none noted during session Mobility NA Dep Max Mod Min CG CS DS MA I Comment Supine to sit x Transfers [...] With Patients permission ordered no equipment via [email or web address] Order. If any questions contact [facility] Provider at [phone]. 6 Clicks Basic Mobility PT 05/20/2022 Difficulty [...] NA = Not Assessed, I = Independent, MA = Modified Independent, Sup = Supervised, Set up = Physical Assistance for Set-up Only, Min = Minimal Assistance, Mod = Moderate Assistance, Max = Maximal assistance; Dep = Dependent; AROM = Active Range of Motion; PROM = Passive Range of Motion; MMT = Manual Muscle TestThe [facility] [id number] NoteSICU Progress Note Gerry Victoria [id number] LOS: 4 days : Interval History/Events: Pain improved Started vomiting this am Passing gas Background: Gerry Victoria is a 66 year old female with PMH of hypertension, RLS, GERD who [facility] with progressive worsening epigastric pain with nausea and vomiting for the past day. Denies fevers, CP, dyspnea. Found to have elevated T waves and uptrending tropopnins. CT ab with acute inflammation of the gallbladder with a stone at the neck and transferred to [facility]. RUQ US with impacted gallstone [...] 11 105 5 0.71 7.6 05/19/22 0355 1.8 05/19/22 035 139 3.5 102 31 10 120 8 0.74 7.7 05/18/22 0228 2.3 05/18/22 0228 136 3.9 101 27 12 77 12 0.78 7.7 CBC/PT/INR WBC RBC Hgb Hct MCV RDW Plt PT aPTT INR 05/20/22 0217 4.7 3.36 9.2 27.9 83 [...] without focal consolidation, no pneumothorax - respiratory engagement mgr protocol, BPH, IS CARD: #T2MI #possible CAD [...] RUQ US with (more content not included)...The [facility] [id number] Note 05/19/22 1540 Assessment and Discharge Planning [...] SW or DC concerns arise. Annabelle Connor, LUCIANAA, LSWT [facility] [id number] NotePHYSICAL THERAPY PROGRESS SUMMARY PT tx cleared by RN. Patient seen from 1354 to 1417 on 5W unit for 23 minute treatment. SUBJECTIVE: Patient Subjective/Goals: oh, look at you! Re: PT untangling lines and wires. OBJECTIVE: Appearance: Resting in bed upon arrival, BP cuff, hotel guest service agent, Pulse Oximeter, IV, Drain x1, Fu, and [...] Dep Max Mod Min CG CS DS MA I Comment Roll to right sidelying Roll [...] With Patients permission ordered no equipment via [email or web address] Order. If any questions contact [facility] Provider at [phone]. 6 Clicks Basic Mobility PT 05/18/2022 Difficulty [...] NA = Not Assessed, I = Independent, MA = Modified Independent, Sup = Supervised, Set up = Physical Assistance for Set-up Only, Min = Minimal Assistance, Mod = Moderate Assistance, Max = Maximal assistance; Dep = Dependent; AROM = Active Range of Motion; PROM = Passive Range of Motion; MMT = Manual Muscle TestThe [facility] [id number] NoteSICU Progress Note Gerry Victoria [id number] POD#: 0 LOS: 3 days : Interval History/Events: Pain improved Started vomiting this am Passing gas Background: Gerry Victoria is a 66 year old female with PMH of hypertension, RLS, GERD who presented to [facility] with progressive worsening epigastric pain with nausea and vomiting for the past day. Denies fevers, CP, dyspnea. Found to have elevated T waves and uptrending tropopnins. CT ab with acute inflammation of the gallbladder with a stone at the neck and transferred to [facility]. RUQ US with impacted gallstone at gallbladder neck. Cards consulted, admitted to step down. Hospital Course: 05/16/22- cards c/s, high risk for lap merlyn 05/17/22- IR perc cholecystostomy Last 24hours: NAEO, pain much improved, feeling hungry In: 0 (25.9 mL/kg) [P.O.:120; I.V.:1950 (1 mL/kg/hr)] Out: [...] Gap Glu BUN Cr Ca Mg PO4 05/19/22354 1.8 05/19/22354 139 3.5 102 31 10 120 8 0.74 7.7 05/18/22227 2.3 05/18/22227 136 3.9 101 27 12 77 12 0.78 7.7 05/17/22410 3.9 05/17/22410 1.9 05/17/22410 131 4.1 97 27 11 96 14 0.97 8.1 CBC/PT/INR WBC RBC Hgb Hct MCV RDW Plt PT aPTT INR 05/19/22354 5.3 3.41 9.4 28.2 83 15.6 199 05/18/22227 9.4 3.45 10.1 28.2 82 15.3 177 05/17/22 0411 34 05/17/22410 1.61 05/17/22410 12.3 4.37 12.1 36.4 83 [...] without focal consolidation, no pneumothorax - respiratory engagement mgr protocol, BPH, IS CARD: #T2MI #possible CAD [...] or longer GI: (more content not included)...The [facility] [id number] NotePHYSICAL THERAPY ACUTE EVALUATION Referral received, chart [...] legs Patient Identified 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 If any questions contact [facility] Provider at [phone]. 6 Clicks Basic Mobility PT 05/18/2022 Difficulty [...] functional mobility Decreased (more content not included)...The [facility] [id number] Note EXAMINATION: XA PERCUTANEOUS CHOLECYSTOSTOMY (RHETT) 05/17/2022 01:38 PM CLINICAL HISTORY: Rad Procedure required: = percutaneous cholecystomostmy tube placement,acute cholecystitis, not a good surgical candidate at this time 2/2 cardiac risk ASSOCIATED DIAGNOSIS: ORDERING PROVIDER: [employer] NOTE: FLUOROSCOPIST: FLUORO TIME: INTRA-PROCEDURE MEDS: ATTENDING [...] was used for local anesthesia. A 5F HiConversion.ru catheter over its matched stylet was inserted into the gallbladder lumen under ultrasoundguidance. The stylet was removed. An Amplatz wire was passed through the catheter and the catheter removed. Ultrasound was utilized to document wire position within the gallbladder lumen. Serial dilatation was then subsequently performed with an 8 and 10 Ugandan dilator. A 10 F all purpose drain [...] Technically successful uncomplicated cholecystostomy tube placement. MACRO: [facility] [id number] NoteSICU Progress Note Gerry Victoria [id number] POD#: 0 LOS: 2 days : Interval History/Events: Background: Gerry Victoria is a 66 year old female with PMH of hypertension, RLS, GERD who presented to [facility] with progressive worsening epigastric pain with nausea and vomiting for the past day. Denies fevers, CP, dyspnea. Found to have elevated T waves and uptrending tropopnins. CT ab with acute inflammation of the gallbladder with a stone at the neck and transferred to [facility]. RUQ US with impacted gallstone [...] 7.7 05/17/22 0411 3.9 05/17/22 0411 1.9 05/17/22410 131 4.1 97 27 11 96 14 0.97 8.1 05/16/22221 136 4.9 100 27 14 119 9 0.76 8.6 CBC/PT/INR WBC RBC Hgb Hct MCV RDW Plt PT aPTT INR 05/18/22227 9.4 3.45 10.1 28.2 82 15.3 177 05/17/22 0411 34 05/17/22 0411 1.61 05/17/22410 12.3 4.37 12.1 36.4 83 15.8 232 05/16/22221 1.10 05/16/222 55 05/16/22221 11.3 4.74 13.0 39.2 83 [...] without focal consolidation, no pneumothorax - respiratory engagement mgr protocol, BPH, IS CARD: #T2MI #possible CAD [...] -mIVF, add D5 -replete Ca ID: #sepsis 2/2 acute cholecystitis Initially afebrile with no leukocytosis , now febrile with leukocytosis IR perc merlyn 05/17, resolution of fever/leukocytosis Prelim fluid cultures gram + - pending Blood/fluid cultures - Continue zosyn Heme: -Daily CBC Endo Glycemic (more content not included)...The [facility] [id number] Note POST-PROCEDURE NOTE Procedure: US guided percutaneous cholecystotomy tube Pre-operative Diagnosis: Acute cholecystitis Post-operative Diagnosis: Same Attending: Kim Fernando MD Foam Caster: [place] A TIME OUT was performed prior to [...] portion of the procedure. El Hollis MD RadiologyUK Healthcare02-21-2023 NotePre-Procedure Note HISTORY: Procedure: US guided percutaneous [...] Oral Every 12 hours 25 mg at 05/17/2247 rOPINIRole (REQUIP) tablet 2 mg Oral At Bedtime 2 mg at 05/16/222037 gabapentin (NEURONTIN) capsule 100 mg Oral 3x Daily 100 mg at 05/17/22 06 levothyroxine (SYNTHROID) tablet 50 mcg Oral Daily [...] Intramuscular Q6H PRN 200 mg at 05/16/22 183 oxyCODONE immediate release tablet 5 mg Oral [...] mg Oral At Bedtime 8.6 mg at 05/16/22 2030 Allergies: Adhesives [bandage tape], Cymbalta [duloxetine hcl], [...] Directives (Living will, health care power of insurance defense attorney): yes, Patient Recent Code Status: Full Code Code Status For This Procedure: Full Code El Hollis MD RadiologyThe [facility] IslandFanchimp [id number] NotePHYSICAL THERAPY CHART REVIEW Referral received, chart reviewed. RN request to hold therapy this date. Pt with 10/10 pain, just returned from [place] with team deciding on emergent operation vs IR cholecystostomy tube placement. Evaluation to follow as appropriate Admit date/time: 05/16/2022 2:08 AM Reason for Admit: epigastric pain with nausea and vomiting Diagnosis: Cholecystitis Precautions: Full Code [place] Past Medical and Surgical History: PMH: Past Medical History: Diagnosis Date Restless leg PSH: Past Surgical History: Procedure Laterality Date TOTAL ABDOMINAL HYSTERECTOMY W/WO REMOVAL TUBE(S)/OVARY(S) Chu Warren, [facility]02-21-2023 NoteSICU Progress Note Gerry Victoria [id number] POD#: 0 LOS: 1 day : Interval History/Events: Background: Gerry Victoria is a 66 year old female with PMH of hypertension, RLS, GERD who presented to [facility] with progressive worsening epigastric pain with nausea and vomiting for the past day. Denies fevers, CP, dyspnea. Found to have elevated T waves and uptrending tropopnins. CT ab with acute inflammation of the gallbladder with a stone at the neck and transferred to [facility]. RUQ US with impacted gallstone [...] Gap Glu BUN Cr Ca Mg PO4 05/17/22410 3.9 05/17/221 1.9 05/17/22410 131 4.1 97 27 11 96 14 0.97 8.1 05/16/22221 136 4.9 100 27 14 119 9 0.76 8.6 CBC/PT/INR WBC RBC Hgb Hct MCV RDW Plt PT aPTT INR 05/17/22410 34 05/17/22 0411 1.61 05/17/22410 12.3 4.37 12.1 36.4 83 15.8 232 05/16/22221 1.10 05/16/222 55 05/16/22221 11.3 4.74 13.0 39.2 83 [...] without focal consolidation, no pneumothorax - respiratory engagement mgr protocol, BPH, IS CARD: #T2MI #possible CAD [...] Flor Chew MD Preliminary IM/Anesthesiology PGY-1 Pager: [phone] Teaching Physician Note: I saw and evaluated the patient. I personally obtained the bhandari and (more content not included)...[facility] [id number] NoteDETWILER [facility] SURGERY SURGICAL CRITICAL CARE HISTORY AND PHYSICAL Reason for consultation: acute cholecystitis, elevated troponins Referring physician: Connie Cote HPI: Gerry Victoria is a 66 year old female with PMH of hypertension, RLS, GERD who presented to [facility] with progressive worsening epigastric pain with nausea and vomiting for the past day. Denies fevers, CP, dyspnea. Found to have elevated T waves and uptrending tropopnins. CT ab with acute inflammation of the gallbladder with a stone at the neck and transferred to [facility]. RUQ US with impacted gallstone at gallbladder neck. Cards consulted, admitted to [facility]. PMH: No past medical history on [...] pt body habitu (more content not included)...The [facility] [id number] Evaluation note* Encounter Date Diagnosis Assessment Notes Treatment Notes Treatment Clinical Notes Nov, Irritable bowel syndrome with constipation (ICD-10 - K58.1) Nov, Dysphagia (ICD-10 - R13.10) Continue Omeprazole [facility] Huan Xiong Other 09-06-2022 Hospital Discharge instructions Patient Education [...] fried and sweet foods. General instructions Take oqxl-rui-wasyluz and prescription medicines only as told by [...] 01/07/2010 Document Revised: 07/04/2019 Document Reviewed: 03/29/2018 [employer] Patient Education 2020 [employer]. Follow Up Care 11/12/2021 11:10:16 With:MARYCARMEN NAVA PA-C, URL Address: When:1 year [facility] 05-05-2022 Hospital Discharge instructions Patient Education 07/29/2021 [...] (electrical nerve stimulation). For women, using a medical illustrator to prevent urine leaks. This is a [...] right after experiencing incontinence. General instructions Take smjo-zpd-jcejmzh and prescription medicines only as told by [...] 04/20/2005 Document Revised: 03/23/2018 Document Reviewed: 06/22/2017 [employer] Patient Education 2020 [employer] Reporter. 07/29/2021 08:21:46 Overactive Bladder, Adult Overactive Bladder, [...] fried and sweet foods. General instructions Take gciq-vix-xycfmay and prescription medicines only as told by [...] 01/07/2010 Document Revised: 07/04/2019 Document Reviewed: 03/29/2018 [employer] Patient Education 2020 [employer] Follow Up Care 07/08/2021 10:23:59 With:MARYCARMEN NAVA PA-C, URL Address: [address] [place] [address] When: Unknown [facility] 04-07-2022 Evaluation note* Encounter Date Diagnosis Assessment Notes Treatment Notes Treatment Clinical Notes Jun, Dyspepsia (ICD-10 - K30) Jun, GERD (gastroesophageal reflux disease) (ICD-10 - K21.9) Continue Omeprazole 40mg bid without change. Follow up in 1 year Nov, Irritable bowel syndrome (ICD-10 - K58.9) ([facility]) Increase Metamucil to 2 scoops daily. Encouraged pt to increase daily fiber intake. Huan Xiong Other 11-30-2021 Evaluation note* Encounter Date Diagnosis [...] see her back on an as-needed basis. Huan Xiong Other 10-05-2021 Evaluation note* Encounter Date Diagnosis [...] that. I am sending her to the [facility] for treatment at her request. Dec, Spondylolisthesis, lumbar region (ICD-10 - M43.16) This patient has a definite spondylolisthesis and probably stenosis. But really does not truly have neurogenic claudication; it is not bilateral and appears to be more sacroiliac. She will try pain management first. Huan Xiong Other chief complaint Narrative - ReportedGERRY VICTORIA is being seen for a consultation for atrial flutter and palpitations. F/u heart cath done in [facility] [address] DO Work Phone: Evaluation + Plan note Future Appointments Appointment Date:10/05/2021 11:00:00 AM Scheduled Provider:MARYCARMEN NAVA PA-C Location:[facility] Appointment Type:URO Office Visit [facility] Evaluation + Plan note Future Appointments Appointment Date:12/01/2022 01:00:00 PM Scheduled Provider:MARYCARMEN NAVA PA-C Location:[facility] Appointment Type:URO Office Visit [facility] Evaluation + Plan note Future Appointments Appointment Date:07/26/2022 08:00:00 AM Scheduled Provider: Hardik:[facility] Appointment Type:Surgery FT Appointment Date:12/01/2022 01:00:00 PM Scheduled Provider:MARYCARMEN NAVA PA-C Location:[facility] Appointment Type:[facility]O [facility] Future Appointments Appointment Date:03/14/2024 01:00:00 PM Scheduled Provider:MARYCARMEN NAVA PA-C Location:[facility] Appointment Type:URO Office Visit [facility] Evaluation noteNo Assessments Information Available [facility] assessment information available [facility] noteNo InformationNort iRewardChart Other evaluation note* Diagnosis Acute cholecystitis- Primary [...] Varicose veins of both lower extremities chronic [facility] Work Phone: Evaluation note* Diagnosis Onset Date Resolution Status Pain in wound acute Edema chronic Inflammation chronic Leg ulcer, left chronic Obesity chronic Uses roller walker chronic Varicose veins of both lower extremities chronic Pain in wound acute Edema chronic Inflammation chronic Leg ulcer, left chronic Obesity chronic Uses roller walker chronic Varicose veins of both lower extremities chronic Candidiasis resolved [facility] Work Phone: History general Narrative - Reported* [...] RIGHT LEG 10/16/2020 Hospitalization History see above Huan Xiong Other History general Narrative - Reported* Type Description [...] Left leg 01/14 Hospitalization History see above Huan Xiong Other History of Present illness Narrative* Patient is here for cardiovascular evaluation following recent hospitalization for what appeared thang acute cholecystitis. Records were retrieved and reviewed. Patient presented to [facility] with symptoms of abdominal pain and was diagnosed with what appeared to be gallbladder disease and peritonitis.She was transferred to [facility] where she underwent work-up. Apparently a [...] adjusted and she was switched from her jail atenolol to metoprolol and losartan. She reported [...] The patient to keep her appointment [facility] for upcoming procedure of cholecystectomyand gallbladder drainage removal * 5. I advised the patient she can use some hyyc-qdq-ljdltaq Claritin to address her what appeared thang drug induced allergic reaction [facility] [address] DO Work Phone: Hospital course Narrative No data available for this section [facility] Hospital Discharge instructions* Attachments The following attachments cannot be sent through Care Everywhere. * Percutaneous Transhepatic Cholangiogram Discharge Instructions ([place]) [facility] Dis[facility] instructions No data available for this section [facility] Additional Instructions Follow-up with your primary care doctor Return to ED if develop worsening symptoms or [facility] Work Phone: Progress note No data available for this section [facility] Advance Directives No Advanced Directives Records [...] 29 hammertoe s preop Chief Complaint rt 4th 5th hammertoe s preop i83.893 Chief Complaint rt 4th 5th hammertoe s preop i83.893 I83.812 Chief Complaint [...] Specialty Diagnoses / Procedures Referred By Megan t Referred To Contact Radiology Diagnoses Acute cholecystitis Procedures XA CHOLANGIOGRAM EXISTING ACCESS (RHETT) XA INTERVENTIONAL RADIOLOGY VASCULAR BODY PROCEDURES XA INTERVENTIONAL RADIOLOGY PROCEDURE SERVICE Nikita Hein MD [address] [place] [address] [facility] [address] Referral ID Status Reason Start Date Expiration Date V isits Requested Visits Authorized [id number] Authorized 06/15/2022 06/15/2023 1 1 Reason Evaluate and Tr eat Diagnosis 1 Spondylolisthesis, l umbar region (M43.16) Referral Organization [facility] Referring Provider First Name Michael Referring Provider Last Name Keanu Referring Provider Specialty Neurologica l Surgery Referred Organization [facility] Referred Provider LaurieCrow molina Referred Address [address], [place],[address] Referred Provider Specialty Pain Medicin e Referral Priority Routine General Notes [facility] [place] 021 02:41:55 PM >[facility] 12/30/2020 03:12:19 PM >Waiting for office notes [...] section and content) DATE CREATED AUTHOR 07/07/2021 [facility] dical Specialist DATE CREATED AUTHOR AUTHOR'S ORGANIZ ATION 07/02/2022 [employer] DATE CREATED AUTHOR AUTHOR'S ORGANIZ ATION 09/14/2022 [facility] DATE CREATED AUTHOR AUTHOR'S ORGANIZ ATION 10/07/2022 [facility] DATE CREATED AUTHOR AUTHOR'S ORGANIZ ATION 03/04/2023 [facility] DATE CREATED AUTHOR AUTHOR'S ORGANIZ ATION 03/17/2023 [facility] DATE CREATED AUTHOR AUTHOR'S ORGANIZ ATION 03/24/2023 [facility] dical Specialists EPIC REASON FOR VISIT (unrecogniz ed section and content) Reason Onset Date Comments Advice/health education 05/27/2022 Specialty Diagnoses / Procedures Referred By Contac t Referred To Contact Radiology Diagnoses Acute cholecystitis Procedures XA CHOLANGIOGRAM EXISTING ACCESS (RHETT) XA INTERVENTIONAL RADIOLOGY VASCULAR BODY PROCEDURES XA INTERVENTIONAL RADIOLOGY PROCEDURE SERVICE Nikita Hein MD [address] [id number] [facility] [address] [place] [address] Referral ID Status Reason Start Date Expiration Date Visits Re quested Visits Authorized [id number] Closed 06/15/2022 06/15/2023 1 1 Reason Onset Date Comments Advice/health education 07/06/2022 Care Team (unrecognized sect ion and content) Team Status: Active Member Role Status Dates Ward Zuniga DO Primary Care Provider Active Team Status: Inactive Member Role Status Giulia Zuniga DO Primary Care Provider Active Adelia Saldana APRN Attending Provider Active Team Status: Inactive Member Role Status Dates Ward Zuniga DO Primary Care Provider Active Pravin Granado MD Emergency Provider Active Team Status: Active Member Role Status Giulia Zuniga DO Primary Care Provider Active Adelia Saldana APRN Attending Provider Active Team Status: Inactive Member Role Status Dates Ward Zuniga DO Primary Care Provider, Devon perez Active Team Status: Inactive Member Role Status Dates Ward Zuniga DO Primary Care Provider Active Maico Perla DO Emergency Provider Active Team Status: Inactive Member Role Status Giulia Zuniga DO Primary Care Provider Active Molina Villanueva MD Attending Provider Active Team Status: Inactive Member Role Status Dates Ward Zuniga DO Primary Care Provider Active Ephraim Casanova APRN Attending Provider Active Team Status: Inactive Member Role Status Dates Keith Griffith PA-C Emergency Provider Active Ward Zuniga DO Primary Care Provider Active Team Status: Inactive Member Role Status Giulia Zuniga DO Primary Care Provider Active Keith Griffith PA-C Emergency Provider Active Team Status: Inactive Member Role Status Giulia Zuniga DO Primary Care Provider Active Ward [...] BE BASED ON THE PRIMARY CLINICAL RECORDS. [employer] [facility]. provides no warranty or guarantee of the accuracy or completeness of information in this document.
== END 2023-03-28 09:59 | disposition home or self-care (01) ==
LOC: VC 09:58
PROVIDERS: PCP Radiology Diagnostic Radiology; Visit Provider Radiology Diagnostic Radiology
DX: I80.02 Phlebitis and thrombophlebitis of superficial vessels of left lower extremity (principal)
CPT/HCPCS: 93971; G0463

== ENCOUNTER 2023-04-12 09:45 | Outpatient (OUT) | payer MEDICARE, SELFPAY ==
[2023-04-12] MEDS: LIDOCAINE HCL 1% 100 MG/10 ML MDV INJ (09:45)
[2023-04-12] MEDS: 0.9 % SODIUM CHLORIDE 500 ML, LIDOCAINE HCL 20 ML, SODIUM BICARBONATE 10 MEQ INJ (09:46)
--- NOTE | 2023-04-12 09:48 | VEIN_ITS ---
[address] [address] Patient Name: GERRY YOUNGBLOOD MRN: [id number] date: 1955 Sex: F Assigned Patient Location: Current Patient Location: Accession/Order Number: [id number] Exam Date: 04/12/2023 09:51 Report Date: 04/12/2023 11:01 At the request of: VICKIE CORDON Procedure: VC Endovenous Ablation 1VeinRT EXAMINATION: VC Endovenous Ablation 1Vein right small saphenous vein HISTORY: Pain due to varicose veins of bilateral legs I83.813 COMPARISON: No relevant comparison available. TECHNIQUE: The risks and benefits of the procedure had been previously discussed, and were rediscussed at length. Informed written consent was obtained. Staci Romero and Domingo Joe assisted. Time out procedure was performed. The right lower extremity was prepared and draped in the usual sterile fashion. Duplex ultrasound probe was draped in a sterile cover, sterile transmission gel was used. Venous mapping was performed with the areas of dilation and large tributaries marked. The total length was 28 cm from the entry 5 cm above the lateral malleolus to the distal thigh, this was a tight extension. The diameter of the small saphenous vein ranged from 5-7 mm. A 30 gauge needle and 1% buffered lidocaine was used to anesthetize the entry site. A 4 mm incision was made with a scalpel and the saphenous vein was entered percutaneously under direct ultrasound guidance with a micropuncture set, a single stick was successful in gaining access. A micro-guide wire was inserted and the needle removed. A micro-set including a dilator was inserted over the microwire and the needle and dilator were removed. A 0.018 guide wire was inserted through the micro-set and threaded through the saphenous vein to the saphenofemoral junction. The dilator was removed and an introducer sheath was inserted over the wire until the end of the sheath entered the saphenofemoral junction. The dilator and wire were removed and the 600 micron fiber was introduced and placed and positioned so that it extended beyond the sheath and was 3 cm peripheral to the saphenofemoral femoral junction. Final position of the fiber was determined by ultrasound guidance and duplex imaging. Tumescent anesthetic was delivered by ultrasound guidance. 150 cc of fluid was delivered along the entire course of the saphenous vein. The solution consisted of 1000 cc of normal saline with 40 mL of 1% lidocaine and 20 mL of sodium bicarbonate. A final positioning check was made. The energy source was turned on by means of the foot pedal and the fiber and sheath were withdrawn. The total number of Joules delivered was 1396. The laser was active for 125 seconds under continuous pulse, average laser use of 8 J. Laser start time 10:30 AM 04/12/2023 . Laser stop time 10:33 AM 04/12/2023 . A duplex ultrasound revealed compressibility and flow at the saphenofemoral junction immediately after the procedure. Hemostasis at the access site was achieved. The skin incision of the saphenous vein was closed with a 4 x 4. A compression stocking was applied. Postop instructions were given. A follow up appointment was recommended and scheduled. The patient tolerated the procedure well and was discharged in good condition . VEIN/VC Endovenous Ablation 1VeinRT IMPRESSION: Technically successful endovenous laser ablation of the right small saphenous vein Electronically authenticated by: VICKIE CORDON Date: 04/12/2023 11:01
--- OUTSIDE RECORDS SUMMARY | 2023-04-12 09:55 | XMS_ITS | CCD ---
Author Name Unknown Address [address] [place] [address] Organization [facility] Care Team Providers Care Elementary Tutor Name Role Phone Ward Zuniga Primary Care Provider [phone] Pardeep Barroso Attending Provider [phone] Jai Tomas Attending Provider [phone] Ward Zuniga Primary Care Provider Jai Tomas Attending Provider [phone] Ward Mtz Attending Provider [phone] Ward Zuniga Primary Care Provider [phone] Jai Tomas Attending Provider [phone] Ward Mtz Attending Provider WARD ZUNIGA Primary Care Physician Unavail able Latonya Frost Unavailable Unavailable Michael Colunga Unavailable Ward Mtz Unavailable Balwinder Parker Unavailable DO Ward Zuniga Primary Care Provider MD Molina Villanueva Attending Provider [phone] DO Ward Zuniga Attending Provider DO Ward Zuniga Primary Care Provider [phone] CUBA Casanova Attending Provider ISI Griffith Emergency Provider Unavailable Primary Care Provider Unavailabl e DO Ward Zuniga Primary Care Provider CUBA Casanova Attending Provider ISI Griffith Emergency Provider Ward Zuniga Unavailable Unavailable Unavailable CONNIE COTE [...] Admitting Unavailable CONNIE COTE Referring Unavailable CONNIE OCTE Referring Unavailable CONLEY, NIMITT Admitting Unavailable PROVIDER, UNKNOWN Attending Unavailable Dr. Ward Zuniga Primary Care Dr. Natan Biggs Referring Unavailmaryann Marinelli, Dr. Gama Attending Unavaila Dr. Ward Robin Primary Care [facility] DO Ward Samuel Primary Care Provider DO Ward Zuniga Attending Provider CUBA Saldana Attending Provider [phone] DO Maico Perla Emergency Provider MD Ward Mtz Attending Provider [phone] DO Ward Zuniga Primary Care Provider [phone] MD Ward Mtz Attending Provider [phone] CUBA Saldana Attending Provider MD Pravin Granado Emergency Provider [phone] MARYCARMEN NAVA Attending Unavailable Ketty Alicia Attending Unavailable Talon Mcbride Referring Unavailabl e Zulay Junior Attending Unavailab le Talon Mcbride Admitting Unavailabl e Talon Mcbride Attending Unavailabl e Talon Mcbride Referring Unavailabl e Usama PADILLAobir R Admitting Unavailable Usama PADILLAobir R Attending Unavailable Talon Mcbride Admitting Unavailabl e Talon Mcbride Attending Unavailabl e Talon Mcbride Referring Unavailabl e DO Zach Ward Primary Care Provider MD Pravin Granado Emergency Provider CUBA Saldana Attending Provider [phone] Zach Ward Primary Care Unavailable Maico Perla Admitting Unavailable Maico Perla Attending Unavailable Keith Griffith Admitting Unavailable Keith Griffith Attending Unavailable Zach, Ward Primary Care Unavailable Pravin Granado Admitting Unavailable Pravin Granaod Attending Unavailable [facility] Unavailable Ward Zuniga Admitting Unavailable [facility] Primary Care Unavailable Ward Zuniga Attending [facility]available [facility] Unavailable CopAdelia patino Admitting Unavailable Adelia Saldana Attending Unavailable [facility] Unavailable Ward Mtz Admitting Unavailable Ward Mtz Attending Unavailable Adelia Saldana Admitting Unavailable Adelia Saldana Attending Unavailable [facility] Un[facility] Unavailable Ephraim Casanova Admitting Unavailable Ephraim Casanova Attending Unavailable Keith Griffith Admitting Unavailable Keith Griffith Attending Unavailable Ward Zuniga Primary Care Unavailable CONNIE LEARY Attending Unavailable WARD ZUNIGA Attending Unavailable WARD ZUNIGA Referring Unavailable CONNIE LEARY Referring Unavailable CONNIE ELARY Attending Unavailable CONNIE LEARY Referring Unavailable CONNIE LEARY Attending Unavailable CONNIE LEARY Referring Unavailable Unavailable Unavailable Unavailable Allergies Allergy Classification Reported Allergen(s) Allergy Type Date of Onset Reaction(s) Facility (17 sources) contact metal agent; Translations: [contact metal agent] Propensity to adverse reactions 9 [facility] (8 sources) Adhesive bandage; Translations: [Adhesive Bandage] Drug allergy rash [facility] Allyson (20 sources) DULoxetine; Translations: [duloxetine] Drug Allergy unable to function properly d/t drowsiness, swollen feet, Unknown [facility] [employer] Other (13 sources) meloxicam; Translations: [meloxicam] Drug Allergy ., Unknown [facility] [employer] Other (20 sources) pregabalin; Translations: [pregabalin] Drug Allergy 3 Swelling [facility] [employer] Other (19 sources) Adhesive agent; Translations: [adhesive] Propensity to adverse reactions 2 [facility] (10 sources) oxaprozin; Translations: [oxaprozin] Drug Allergy Unknown [facility] (10 sources) rOPINIRole; Translations: [Requip] Drug Allergy dizziness [facility] (10 sources) tiZANidine; Translations: [tiZANidine] Drug Allergy Unknown [facility] (20 sources) DULoxetine; Translations: [DULOXETINE HCL] Drug Allergy 3 Agitation [facility] (20 sources) Pregabalin Propensity to adverse reactions to drug 3 [facility]) Bandage Tape; Translations: [BANDAGE TAPE] Propensity to adverse reactions 3 [facility]ching, [facility] (1 source) Adhesive Bandages; Translations: [Adhesive Bandages] Allergy to drug (finding) -[facility] 600 DO Work Phone: (1 source) Adhesive Paper TAPE; Translations: [Adhesive Paper TAPE] Allergy to drug (finding) [facility] Work Phone: (1 source) meloxicam; Translations: [Mobic] Drug Allergy [facility] (1 source) oxaprozin; Translations: [Daypro] Drug Allergy [facility] (1 source) tiZANidine; Translations: [Zanaflex] Drug Allergy [facility] (1 source) pregabalin Drug Allergy [facility] Rep[facility] Medications Current Medications Medication Drug [...] # 28 cap(s), Refills(s) 0, Pharmacy: [facility] [id number], 154, cm, 09/26/22 23:21:00 EDT, Height/Length Dosing, [...] # 14 tab(s), Refills(s) 0, Pharmacy: [facility] [id number], 154, cm, 09/26/22 23:21:00 EDT, Height/Length Dosing, [...] # 42.5 gm, Refills(s) 5, Pharmacy: [facility] [id number], 154, cm, 07/29/21 11:09:00 EDT, Height/Length Dos... [...] 11:00pm Start: 10-05-2022 take 1 tablet by [facility] once daily Multivitamin Active 1 TAB PO [...] Start: 11-29-2012 take 1 capsule by mo [facility] once daily omeprazole 20 mg Cap-DR 20 [...] # 90 tab(s), Refills(s) 3, Pharmacy: [facility] [id number], 154, cm, 09/26/22 23:21:00 EDT, Height/Length Dosing, [...] day(s), # 30 tab(s), Refills(s) 1, Pharmacy: [facility] [id number], 154, cm, 07/29/21 11:09:00 EDT, Height/Length Dosing, 88, kg, 07/29/21 11:09:00 EDT, Weight Dosing Start Date: 07/29/21 Stop Date: 09/27/21 Status: Ordered Start: 07-29-2021 End: 08-28-2021 take 1 tablet by mouth once daily oxybutynin 5 mg ER Tab 5 mg = 1 tab(s), Oral, Daily, X 30 day(s), # 30 tab(s), Refills(s) 0, Pharmacy: [facility] [id number], 154, cm, 07/29/21 11:09:00 EDT, Height/Length Dosing, 88, kg, 07/29/21 11:09:00 EDT, Weight Dosing Start Date: 07/29/21 Stop Date: 08/28/21 Status: Ordered oxyCODONE hydrochloride 5 mg oral tablet (1 source) Opioid Agonist Start: 07-26-2022 End: 07-29-2022 oxyCODONE 5 mg Tab 5 mg = 1 tab(s), Oral, q6hr, PRN Pain 8-10, X 3 day(s), # 12 tab(s), Refills(s) 0, Pharmacy: [facility] [id number], 154, cm, 07/18/22 14:13:00 EDT, Height/Length Dosing, [...] 01-13-2021 take 1 tablet by pablo th once daily Vitamin D3 2000 intl units oral Tab 50 mcg, Oral, Daily, tab(s), Refills(s) 0 Start Date: 01/13/21 Status: Ordered Vitamin D3 2000 UNIT (9 sources) take 1 capsule by mo [facility] once daily Vitamin D3 2000 UNIT 1 [...] Coronary atherosclerosis; Translations: [Atherosclerotic heart disease of [place] coronary artery without angina pectoris] Onset: 3 [...] current use of drug therapy; Translations: [Other senior living (current) drug therapy] Onset: 3 Episodic Other [...] Test Name Value Interpretation Reference Range Facility MR SHOULDER LEFT WO IV CONTR Demetrius 04-11-2023 MR SHOULDER LEFT WO IV CONTRAST EXAMINATION: MR SHOULDER LEFT WO IV CONTRAST HISTORY: INTERNAL DERANGEMENT TECHNIQUE: Routine non-contrast MRI of the shoulder, left side COMPARISON: Radiographs 03/01/2023. RESULT: Significant limitations from motion. Patient unable to hold still secondary to restless leg syndrome. Best possible images submitted per tech note. Rotator Cuff Tendons: Probable full-thickness tearing involving the more anterior fibers of supraspinatus distally measuring around 11 mm in AP dimension, with possibly some intact more posterior/junctional fibers, with retraction of the torn fibers to near the acromion, with underlying tendinosis. Mild to moderate tendinosis involving infraspinatus with small to moderate areas of interstitial tearing, without distinct full-thickness tear within limits of motion. Mild to moderate tendinosis involving subscapularis, without distinct full-thickness tear within limits of motion. Teres minor grossly intact. Long Head Biceps Tendon: Grossly intact within limits of motion. Muscle: At least mild volume loss involving supraspinatus. Diffuse edema signal involving infraspinatus, likely reactive/strain. Labrum: Not well assessed. Areas of fraying/tearing. Bones and Marrow: No evidence for fracture within limits of motion. Glenohumeral Joint: Cartilage not well assessed secondary to motion. Small joint effusion. Acromioclavicular Joint: At least mild degenerative changes. Other: Mild subacromial-subdeltoid bursal thickening/fluid. IMPRESSION: Significant limitations from motion. Rotator cuff tendinosis with probable full-thickness tearing involving at least the anterior fibers of supraspinatus as discussed. ELECTRONICALLY SIGNED BY: Luis Glover MD Normal Not Available Ambulatory Visit Summaryon 1 05-03-2022 Ambulatory Visit Summary GERRY VICTORIA :1955 Visit Date:03/02/2023 Ambulatory Visit Instructions Your Diagnosis Urinary incontinence OAB (overactive bladder) Recurrent UTI Tests Performed Urnls Dip Stick Auto w/o Microscopy POC [id number] Your Care Team Attending Physician - DARRYN Alicia APRN, Ketty Jaeger Primary Care Physician - WARD ZUNIGA DO [...] Follow-Up Appointments 2023 1:00 PM EST With: ELIJAH SNOWDEN, MARYCARMEN Enrique Where: [facility] Allyson Pacheco [facility] Patient Educationon 03-02-20 Patient Education Obstetrics and [...] provider. Document Revised: 07/22/2021 Document Reviewed: 07/22/2021 [place] Patient Education ? 2022 [employer] [facility] Urology Office/Clinic Noteon 03-02-2023 Urology Office/Clinic [...] Alcohol - (more content not included)... Normal [facility] Comment on above: Result Comment: Elec tronically Signed By: DARRYN Alicia APRN, [place] X\.br\Date and Time Signed: 03/02/23 13:39 EST\.br\Electronically Co-Signed By: Gema Erickson\.br\Date and Time Co-Signed: 03/02/23 13:37 EST Alanine aminotransferase [En zymatic activity/volume] in Serum or PlasmaOrdered By: Pravin Granado on 12-17-2022 ALT [Catalytic activity/Vol] 11 U/L 7-52 [facility] Albumin [Mass/volume] in Ser um or Plasma by Bromocresol green (BCG) dye binding methoOrdered By: Pravin Granado on 12-17-2022 Albumin BCG dye [Mass/Vol] 4.4 g/dL 3.5-5.7 [facility] Alkaline phosphatase [Enzyma tic activity/volume] in Serum or PlasmaOrdered By: Pravin Granado on 12-17-2022 ALP [Catalytic activity/Vol] 79 U/L 34-104 [facility] Amylaseon 12-17-2022 Amylase [Catalytic activity/Vol] 22 U/L Low 29-103 [facility] Comment on above: Performed By: #### L IPASE, CMP, UMU #### [facility] [address] Amylase [Enzymatic activity/ volume] in Serum or PlasmaOrdered By: Pravin Granado on 12-17-2022 Amylase [Catalytic activity/Vol] 22 U/L 29-103 [facility] Aspartate aminotransferase [ Enzymatic activity/volume] in Serum or PlasmaOrdered By: Pravin Granado on 12-17-2022 AST [Catalytic activity/Vol] 22 U/L 13-39 [facility] Basophils Auto (Bld) [#/Vol] Ordered By: Pravin Granado on 12-17-2022 Basophils (Bld) [#/Vol] 0.0 10*3/uL 0.0-0.2 [facility] Basophils/100 WBC Auto (Bld) Ordered By: Pravin Granado on 12-17-2022 Basophils/100 WBC (Bld) 0.9 % . [facility] Bilirubin.total [Mass/volume ] in Serum or PlasmaOrdered By: Pravin Granado on 12-17-2022 Bilirubin [Mass/Vol] 0.7 mg/dL 0.3-1.0 [facility] Calcium [Mass/volume] in Ser um or PlasmaOrdered By: Pravin Granado on 12-17-2022 Calcium [Mass/Vol] 9.4 mg/dL 8.6-10.3 [facility] Carbon dioxide, total [Moles /volume] in Serum or PlasmaOrdered By: Pravin Granado on 12-17-2022 CO2 [Moles/Vol] 29.9 mmol/L 21.0-31.0 [facility] Chloride [Moles/volume] in S nia or PlasmaOrdered By: Pravin Granado on 12-17-2022 Chloride [Moles/Vol] 101 mmol/L 98-107 [facility] Complete Blood Count Auto Di ffon 12-17-2022 Basophils (Bld) [#/Vol] 0.0 10*3/uL Normal 0.0-0.2 [facility] Comment on above: Result Comment: PERF ORMED BY: [place] [address] PATHOLOGIST SILK BRUSHER WILDER BOTELLO M.D. Performed By: #### C BC #### [address] Basophils/100 WBC (Bld) 0.9 % Normal . [facility] Comment on above: Performed By: #### C BC #### [address] Eosinophils (Bld) [#/Vol] 0.1 10*3/uL Normal 0.0-0.45 [facility] Comment on above: Performed By: #### C BC #### [address] Eosinophils/100 WBC (Bld) 2.9 % Normal . [facility] Comment on above: Performed By: #### C BC #### [address] Erythrocyte distribution width (RBC) [Ratio] 17.1 % High 11.9-15.3 [facility] Comment on above: Performed By: #### C BC #### [address] Hematocrit (Bld) [Volume fraction] 33.5 % Low 34.0-46.4 [facility] Comment on above: Performed By: #### C BC #### [address] Hemoglobin (Bld) [Mass/Vol] 11.0 g/dL Low 11.8-15.4 [facility] Comment on above: Performed By: #### C BC #### [facility] [address] [place] [address] [place] Lymphocytes (Bld) [#/Vol] 1.2 10*3/uL Normal 1.00-4.8 [facility] Comment on above: Performed By: #### C BC #### [facility] [address] Lymphocytes/100 WBC (Bld) 24.6 % Normal . [facility] Comment on above: Performed By: #### C BC #### [address] MCH (RBC) [Entitic mass] 27.0 pg Normal 24.7-34.3 [facility] Comment on above: Performed By: #### C BC #### [address] MCV (RBC) [Entitic vol] 82.6 fL Normal 80-100 [facility] Comment on above: Performed By: #### C BC #### [address] Mean Corpuscular HGB Conc 32.7 g/dL Normal 32.0-35.0 [facility] Comment on above: Performed By: #### C BC #### [place] [address] [place] Monocytes (Bld) [#/Vol] 0.3 10*3/uL Normal 0.0-0.8 [facility] Comment on above: Performed By: #### C BC #### [facility] [address] [place] [address] [place] Monocytes/100 WBC (Bld) 19.78 % Normal 0.00-20.00 [facility] Comment on above: Performed By: #### C BC #### [address] Monocytes/100 WBC (Bld) 6.1 % Normal . [facility] Comment on above: Performed By: #### C BC #### [facility] [address] Neutrophils (Bld) [#/Vol] 3.1 10*3/uL Normal 1.8-7.7 [facility] Comment on above: Performed By: #### C BC #### [facility] [address] [place] [id number] [facility] Neutrophils/100 WBC (Bld) 65.5 % Normal . [facility] Comment on above: Performed By: #### C BC #### [facility] [address] NRBC% 0.3 /100{WBC} Normal 0-0.5 [facility] Comment on above: Performed By: #### C BC #### [address] Platelet mean volume (Bld) [Entitic vol] 8.1 fL Normal 6.3-10.7 [facility] Comment on above: Performed By: #### C BC #### [address] Platelets (Bld) [#/Vol] 236 10*3/uL Normal 150-450 [facility] Comment on above: Performed By: #### C BC #### [address] RBC (Bld) [#/Vol] 4.05 10*6/uL Normal 3.60-5.00 [facility] Comment on above: Performed By: #### C BC #### [address] WBC (Bld) [#/Vol] 4.8 10*3/uL Normal 3.8-11.6 [facility] Comment on above: Performed By: #### C BC #### [address] Comprehensive Metabolic Pane lit 12-17-2022 Albumin [Mass/Vol] 4.4 g/dL Normal 3.5-5.7 [facility] Comment on above: Performed By: #### L IPASE, CMP, UMU #### [facility] [address] [place] [address] [place] Albumin/Globulin [Mass ratio] 1.4 {ratio} Normal [facility] Comment on above: Performed By: #### L IPASE, CMP, UMU #### [facility] [address] [place] [id number] [facility] ALP [Catalytic activity/Vol] 79 U/L Normal 34-104 [facility] Comment on above: Performed By: #### L IPASE, CMP, UMU #### [facility] [address] ALT [Catalytic activity/Vol] 11 U/L Normal 7-52 [facility] Comment on above: Performed By: #### L IPASE, CMP, UMU #### [facility] [address] Anion gap [Moles/Vol] 9.4 mmol/L Normal 6.0-15.0 [facility] Comment on above: Performed By: #### L IPASE, CMP, UMU #### [facility] [address] [place] [address] [place] AST [Catalytic activity/Vol] 22 U/L Normal 13-39 [facility] Comment on above: Performed By: #### L IPASE, CMP, UMU #### [facility] [address] [place] [address] [place] Bilirubin [Mass/Vol] 0.7 mg/dL Normal 0.3-1.0 [facility] Comment on above: Performed By: #### L IPASE, CMP, UMU #### [facility] [address] [place] [address] [place] Calcium [Mass/Vol] 9.4 mg/dL Normal 8.6-10.3 [facility] Comment on above: Performed By: #### L IPASE, CMP, UMU #### [facility] [address] [place] [address] [place] Chloride [Moles/Vol] 101 mmol/L Normal 98-107 [facility] Comment on above: Performed By: #### L IPASE, CMP, UMU #### [facility] [address] [place] [address] [place] CO2 [Moles/Vol] 29.9 mmol/L Normal 21.0-31.0 [facility] Comment on above: Performed By: #### L MONICA MEYERS, UMU #### [facility] [address] Creatinine [Mass/Vol] 0.90 mg/dL Normal 0.60-1.20 [facility] Comment on above: Performed By: #### L MONICA MEYERS, UMU #### [facility] [address] [place] [address] [place] GFR/1.73 sq M.predicted MDRD (S/P/Bld) [Vol rate/Area] mL/min/{1.73_m2} [facility] Comment on above: Performed By: #### L MONICA MEYERS, UMU #### [facility] [address] Globulin (S) [Mass/Vol] 3.1 g/dL [facility] Comment on above: Performed By: #### L MONICA MEYERS, UMU #### [facility] [address] Glucose [Mass/Vol] 119 mg/dL High 70-100 [facility] Comment on above: Result Comment: [place] Glucose Reference Range is dependent on time and content of last meal. Glucose of more than 200 mg/dL in a nonstressed, ambulatory subject supports the diagnosis of Diabetes Mellitus. ADA recommended reference range Performed By: #### L MONICA MEYERS, UMU #### [facility] [address] [place] [address] [place] Potassium [Moles/Vol] 3.3 mmol/L Low 3.5-5.1 [facility] Comment on above: Performed By: #### L IPAMONICA FERNANDEZ, UMU #### [facility] [address] Protein [Mass/Vol] 7.5 g/dL Normal 6.4-8.9 [facility] Comment on above: Performed By: #### L IPASEMONICA, UMU #### [facility] [address] [place] [address] [place] Sodium [Moles/Vol] 137 mmol/L Normal 136-145 [facility] Comment on above: Performed By: #### L IPASEMONICA, UMU #### [facility] [address] Urea nitrogen [Mass/Vol] 14 mg/dL Normal 7-25 [facility] Comment on above: Performed By: #### L IPASE, CMP, UMU #### [facility] [address] Creatinine [Mass/volume] in Serum or PlasmaOrdered By: Pravin Granado on 12-17-2022 Creatinine [Mass/Vol] 0.90 mg/dL 0.60-1.20 [facility] ECG 12 lead ECGon 12-17-2022 ECG 12 lead ECG [facility] Main [place] [address] [place] [address] Electrocardiograph Report Signed Patient: Gerry Victoria MR#: [id number] 10 : 1955 Acct:[id number] Age/Sex: 67 / F ADM Date: 12/17/22 Loc: ER Room: Type: [facility] ER Attending Dr: Ordering Provider: Pravin Granado [...] When compared with ECG of 15-MAY-2022 20:35, [place] interval has increased T wave amplitude has decreased in Inferior leads T wave amplitude has decreased in Anterior leads Confirmed by PRAVIN GRANADO MD ([id number]) on 12/17/2022 3:34:33 PM Referred By: Electronically Signed By:PRAVIN GRANADO MD Transcribed By: MUS Signed By Pravin Granado MD 12/17/22 1534 Normal [facility] Eosinophils Auto (Bld) [#/Vo l]Ordered By: Pravin Granado on 12-17-2022 Eosinophils (Bld) [#/Vol] 0.1 10*3/uL 0.0-0.45 [facility] Eosinophils/100 WBC Auto (Bl d)Ordered By: Pravin Granado on 12-17-2022 Eosinophils/100 WBC (Bld) 2.9 % . [facility] Erythrocyte distribution wid th Auto (RBC) [Ratio]Ordered By: Pravin Granado on 12-17-2022 Erythrocyte distribution width (RBC) [Ratio] 17.1 % 11.9-15.3 [facility] Globulin Calc (S) [Mass/Vol] Ordered By: Pravin Granado on 12-17-2022 Globulin (S) [Mass/Vol] 3.1 g/dL [facility] Glucose [Mass/volume] in Ser um or PlasmaOrdered By: Pravin Granado on 12-17-2022 Glucose [Mass/Vol] 119 mg/dL 70-100 [facility] Comment on above: ADA recommended refe rence rangeRandom Glucose Reference Range is dependent on time and content of last meal. Glucose of more than 200 mg/dL in a nonstressed, ambulatory subject supports the diagnosis of Diabetes Mellitus. Hematocrit Auto (Bld) [Volum e fraction]Ordered By: Pravin Granado on 12-17-2022 Hematocrit (Bld) [Volume fraction] 33.5 % 34.0-46.4 [facility] Hemoglobin [Mass/volume] in BloodOrdered By: Pravin Granado on 12-17-2022 Hemoglobin (Bld) [Mass/Vol] 11.0 g/dL 11.8-15.4 [facility] Leukocytes [#/volume] correc poly for nucleated erythrocytes in Blood by Automated counOrdered By: Pravin Granado on 12-17-2022 WBC corrected for nucl RBC Auto (Bld) [#/Vol] 4.8 10*3/uL 3.8-11.6 [facility] Lipaseon 12-17-2022 Lipase [Catalytic activity/Vol] 8.0 U/L Low 11.0-82.0 [facility] Comment on above: Result Comment: PERF ORMED BY: [place] [id number] PATHOLOGIST SILK BRUSHER WILDER BOTELLO M.D. Performed By: #### L MIRA, UMU ANDERSON #### [address] Lipase [Enzymatic activity/v olume] in Serum or PlasmaOrdered By: Pravin Granado on 12-17-2022 Lipase [Catalytic activity/Vol] 8.0 U/L 11.0-82.0 [facility] Lymphocytes Auto (Bld) [#/Vo l]Ordered By: Pravin Granado on 12-17-2022 Lymphocytes (Bld) [#/Vol] 1.2 10*3/uL 1.00-4.8 [facility] Lymphocytes/100 WBC Auto (Bl d)Ordered By: Pravni Granado on 12-17-2022 Lymphocytes/100 WBC (Bld) 24.6 % . [facility] MCH Auto (RBC) [Entitic mass ]Ordered By: Pravin Granado on 12-17-2022 MCH (RBC) [Entitic mass] 27.0 pg 24.7-34.3 [facility] MCHC Auto (RBC) [Mass/Vol]Or dered By: Pravin Granado on 12-17-2022 MCHC (RBC) [Mass/Vol] 32.7 g/dL 32.0-35.0 [facility] MCV Auto (RBC) [Entitic vol] Ordered By: Pravin Granado on 12-17-2022 MCV (RBC) [Entitic vol] 82.6 fL 80-100 [facility] Monocyte distribution width [Entitic volume] in Blood by AutomatedOrdered By: Pravin Granado on 12-17-2022 Monocyte distribution width Auto (Bld) [Entitic vol] 19.78 % 0.00-20.00 [facility] Monocytes Auto (Bld) [#/Vol] Ordered By: Pravin Granado on 12-17-2022 Monocytes (Bld) [#/Vol] 0.3 10*3/uL 0.0-0.8 [facility] Monocytes/100 WBC Auto (Bld) Ordered By: Pravin Granado on 12-17-2022 Monocytes/100 WBC (Bld) 6.1 % . [facility] Neutrophils Auto (Bld) [#/Vo l]Ordered By: Pravin Granado on 12-17-2022 Neutrophils (Bld) [#/Vol] 3.1 10*3/uL 1.8-7.7 [facility] Neutrophils/100 WBC Auto (Bl d)Ordered By: Pravin Granado on 12-17-2022 Neutrophils/100 WBC (Bld) 65.5 % . [facility] No Panel InformationOrdered By: Pravin Granado on 12-17-2022 Estimated GFR (CKD-EPI) > 60.0 mL/Min [facility] Creatinine Clearance (Chem N/A [facility] Nucleated erythrocytes [Pres ence] in Blood by Automated countOrdered By: Pravin Granado on 12-17-2022 Nucleated RBC Auto Ql (Bld) 0.3 /100{WBC} 0-0.5 [facility] Platelet mean volume Auto (B ld) [Entitic vol]Ordered By: Pravin Granado on 12-17-2022 Platelet mean volume (Bld) [Entitic vol] 8.1 fL 6.3-10.7 [facility] Platelets Auto (Bld) [#/Vol] Ordered By: Pravin Granado on 12-17-2022 Platelets (Bld) [#/Vol] 236 10*3/uL 150-450 [facility] Potassium [Moles/volume] in Serum or PlasmaOrdered By: Pravin Granado on 12-17-2022 Potassium [Moles/Vol] 3.3 mmol/L 3.5-5.1 [facility] Protein [Mass/volume] in Ser um or PlasmaOrdered By: Pravin Granado on 12-17-2022 Protein [Mass/Vol] 7.5 g/dL 6.4-8.9 [facility] RBC Auto (Bld) [#/Vol]Ordere d By: Pravin Granado on 12-17-2022 RBC (Bld) [#/Vol] 4.05 10*6/uL 3.60-5.00 [facility] Serum or plasma albumin/glob ulin mass ratioOrdered By: Pravin Granado on 12-17-2022 Albumin/Globulin [Mass ratio] 1.4 {ratio} [facility] Serum or plasma anion gap de terminationOrdered By: Pravin Granado on 12-17-2022 Anion gap [Moles/Vol] 9.4 mmol/L 6.0-15.0 [facility] Sodium [Moles/volume] in Ser um or PlasmaOrdered By: Pravin Granado on 12-17-2022 Sodium [Moles/Vol] 137 mmol/L 136-145 [facility] Urea nitrogen [Mass/volume] in Serum or PlasmaOrdered By: Pravin Granado on 12-17-2022 Urea nitrogen [Mass/Vol] 14 mg/dL 7-25 [facility] WBC Auto (Bld) [#/Vol]Ordere d By: Pravin Granado on 12-17-2022 WBC (Bld) [#/Vol] 4.8 10*3/uL 3.8-11.6 [facility] US venous duplex LE LTon US venous duplex LE LT [facility] [place] [address] Ultrasound Report Signed Patient: Gerry Victoria MR#: [id number] 10 : 1955 Acct:[id number] Age/Sex: 67 / F ADM Date: 11/04/22 Loc: Room: Type: [facility] Attending Dr: Ward Mtz MD Ordering Provider: [...] 7 mm in greatest diameter. 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 Lesser saphenous vein is also incompetent and dilated. Impression dictated by: Ward Mtz M.D.11/07/2022 12:52 PM Dictation Location: [place] [address] Tech: Ana Shrestha Transcribed By: MANUEL 11/07/22 1252 Dictated By: Ward Mtz MD 11/07/22 1249 Signed By: 11/07/22 [address] [facility] [address] cervical spine wo conon 0 11-04-2022 CT cervical spine wo [facility] [place] [address] CT Scan Report Signed Patient: Gerry Victoria MR#: [id number] 10 : 1955 Acct:[id number] Age/Sex: 67 / F ADM Date: 11/04/22 Loc: ER Room: Type: PRE ER Attending Dr: Copies to: Maico Perla DO Ordering Provider: Maico Perla DO Date of Service: 11/04/22 CT/CT head/brain wo con: fall ([id number]) CT/CT cervical spine wo con: fall CLINICAL [...] Elaine Mcadams M.D.11/04/2022 11:30 AM Dictation Location: [place] [address] Transcribed By: [facility] 11/04/22 1130 Dictated By: Elaine Mcadams MD 11/04/22 1123 Signed By: 11/04/22 1130 Normal [facility] XR knee LT 2Von 11-04-2022 XR knee LT 2V [facility] [place] [address] [place], [place] [address] XRay Report Signed Patient: Gerry Victoria MR#: [id number] 10 : 1955 Acct:[id number] Age/Sex: 67 / F ADM Date: 11/04/22 [...] Elaine Mcadams M.D.11/04/2022 11:37 AM Dictation Location: [place] [address] Transcribed By: [facility] 11/04/22 1137 Dictated By: Elaine Mcadams MD 11/04/22 1131 Signed By: 11/04/22 1137 [facility] MRSA Screenon 09-29-2022 MRSA DNA ROXANA+probe Ql (Unsp spec) Microbiology PROCEDURE: MRSA Screen [R1] SOURCE: Nasal BODY SITE: COLLECTED DATE/TIME: 09/27/2022 05:44 EDT RECEIVED DATE/TIME: 09/27/2022 06:10 EDT START DATE/TIME: 09/27/2022 06:10 EDT FREE TEXT SOURCE: Maliha PADILLA DO, DO, Ronobir R FINAL REPORTS Final Report [] Verified Date/Time: 09/29/2022 09:04 EDT MRSA Negative. Performing Locations R1: This test was performed at: [facility], [address] [place] [address], [address] , , [facility] Comment on above: Performed By: #### 1 [id number] #### [facility] [address] [place] [address] Auto Diffon 09-27-2022 Basophils/100 WBC (Bld) 1.0 % Normal 0.0-2.0 [facility] Comment on above: Order Comment: Order Added by Discern Expert. Performed By: #### 2 372286, 31380450, 9831488, 9123661, 1571146, 00116680, 6380917, 2976979 #### [facility] [address] [place] [address] Basophils/Leukocytes Auto (Bld) [Pure # fraction] 0.1 E9/L Normal 0.0-0.2 [facility] Comment on above: Order Comment: Order Added by Discern Expert. Performed By: #### 2 324153, 34362295, 0253123, 2531070, 0679090, 24132031, 7462037, 6497417 #### [facility] [address] [place] [address] Eosinophils/100 WBC (Bld) 8.4 % High 0.0-8.0 [facility] Comment on above: Order Comment: Order Added by Discern Expert. Performed By: #### 2 499832, 03544319, 8879701, 3229757, 0842735, 43767857, 6751791, 7149995 #### [facility] [address] [place] [address] Eosinophils/Leukocytes Auto (Bld) [Pure # fraction] 0.5 E9/L Normal 0.0-0.5 [facility] Comment on above: Order Comment: Order Added by Discern Expert. Performed By: #### 2 849294, 24844682, 3361295, 0709094, 2683709, 81013835, 4616455, 8875131 #### [facility] [address] [place] [address] Lymphocytes/100 WBC (Bld) 18.0 % Normal 14.0-50.0 [facility] Comment on above: Order Comment: Order Added by Discern Expert. Performed By: #### 2 939315, 03766779, 5493690, 2240432, 7908659, 00242564, 6227879, 7527741 #### [facility] [address] [place] [address] Lymphocytes/Leukocytes Auto (Bld) [Pure # fraction] 1.1 E9/L Normal 1.0-4.0 [facility] Comment on above: Order Comment: Order Added by Discern Expert. Performed By: #### 2 903694, 07624919, 6273688, 9365561, 3953682, 34987094, 3788970, 6315865 #### [facility] [address] [place] [address] Monocytes/100 WBC (Bld) 11.2 % Normal 4.0-14.0 [facility] Comment on above: Order Comment: Order Added by Discern Expert. Performed By: #### 2 392973, 91529868, 2813883, 1939713, 8551107, 39970261, 8254422, 4035607 #### [facility] [address] [place] [address] Monocytes/Leukocytes Auto (Bld) [Pure # fraction] 0.7 E9/L Normal 0.2-1.0 [facility] Comment on above: Order Comment: Order Added by Discern Expert. Performed By: #### 2 126201, 15004099, 4042417, 3603076, 0053609, 76309686, 5609371, 8970696 #### [facility] [address] [place] [address] Neutrophils/100 WBC (Bld) 61.4 % Normal 36.0-75.0 [facility] Comment on above: Order Comment: Order Added by Discern Expert. Performed By: #### 2 172778, 62408211, 4313193, 3224874, 4510187, 54118256, 4253147, 7971267 #### [facility] [address] [place] [address] Neutrophils/Leukocytes Auto (Bld) [Pure # fraction] 3.6 E9/L Normal 2.0-7.5 [facility] Comment on above: Order Comment: Order Added by Discern Expert. Performed By: #### 2 637836, 90363261, 7833221, 4750829, 8152566, 94105887, 5994252, 2981368 #### [facility] [address] [place] [address] BMPon 09-27-2022 Creatinine [Mass/Vol] 1.2 mg/dL Normal 0.5-1.3 [facility] Comment on above: Performed By: #### 2 102015, 56554166, 8975919, 7198702, 6022949, 29311749, 0993785, 8234926 #### [facility] [address] [place] [address] Urea nitrogen [Mass/Vol] 17 mg/dL Normal 5-21 [facility] Comment on above: Performed By: #### 2 824836, 04541704, 0547315, 3590998, 8586366, 16161570, 1883970, 6411662 #### [facility] [address] [place] [address] Urea nitrogen/Creatinine [Mass ratio] 14 No Units Normal 10-20 [facility] Comment on above: Performed By: #### 2 605568, 02442405, 7410451, 8670007, 7495631, 40725495, 5835289, 4703519 #### [facility] [address] [place] [address] Anion gap [Moles/Vol] 12 mmol/L Normal 6-16 [facility] Comment on above: Performed By: #### 2 913700, 81746498, 3299409, 2112000, 1308692, 91367492, 0571362, 4378287 #### [facility] [address] [place] [address] Calcium [Mass/Vol] 8.9 mg/dL Normal 8.9-11.1 [facility] Comment on above: Performed By: #### 2 984480, 67986751, 5054598, 0748616, 6327940, 17147299, 7596226, 4954487 #### [facility] [address] [place] [address] Chloride [Moles/Vol] 101 mmol/L Normal 101-111 [facility] Comment on above: Performed By: #### 2 706213, 90124161, 0490160, 0750777, 7781682, 53744877, 6286667, 6782542 #### [facility] [address] [place] [address] CO2 [Moles/Vol] 29 mmol/L Normal 21-[address] [facility] Comment on above: Performed By: #### 2 322811, 80764973, 1221765, 2822745, 4991573, 68771119, 9103175, 6605197 #### [facility] [address] [place] [address] Glucose [Mass/Vol] 84 mg/dL Normal 55-199 [facility] Comment on above: Result Comment: If t his glucose result represents a fasting glucose, interpretation should refer to the following reference range: 55-99 mg/dL Performed By: #### 2 200572, 67685858, 9464576, 9667165, 3920443, 10117928, 2879814, 7293528 #### [facility] [address] [place] [address] Potassium [Moles/Vol] 3.6 mmol/L Normal 3.5-5.3 [facility] Comment on above: Performed By: #### 2 053047, 10695059, 1011800, 7948851, 1417314, 08173206, 8999720, 3637784 #### [facility] [address] [place] [address] Sodium [Moles/Vol] 138 mmol/L Normal 135-145 [facility] Comment on above: Performed By: #### 2 770341, 29954520, 1547383, 6977753, 8298427, 97136475, 4432305, 8837530 #### [facility] [address] [place] [address] CBC w/ Auto Diffon 3 Erythrocyte distribution width (RBC) [Ratio] 15.9 % High 10.9-14.2 [facility] Comment on above: Performed By: #### 2 770797, 43233109, 3161761, 9120333, 6563897, 91040767, 8927122, 8673774 #### [facility] [address] [place] [address] Hematocrit (Bld) [Volume fraction] 29.2 % Low 34.0-46.0 [facility] Comment on above: Performed By: #### 2 353373, 29047711, 1516658, 3612042, 4149359, 68745731, 0468298, 4465376 #### [facility] [address] [place] [address] Hemoglobin (Bld) [Mass/Vol] 9.6 g/dL Low 12.0-16.0 [facility] Comment on above: Performed By: #### 2 586645, 96633892, 4130389, 9545379, 1568654, 20608579, 4965875, 5151658 #### [facility] [address] [place] [address] MCH (RBC) [Entitic mass] 26.4 pg Low 27.0-34.0 [facility] Comment on above: Performed By: #### 2 908759, 39748687, 8663354, 8029994, 6845829, 70358109, 4726080, 3575879 #### [facility] [address] [place] [address] MCHC (RBC) [Mass/Vol] 33.0 g/dL Normal 31.4-36.0 [facility] Comment on above: Performed By: #### 2 986203, 73659732, 8922687, 9367277, 7392166, 85227897, 5262245, 0014972 #### [facility] [address] [place] [address] MCV (RBC) [Entitic vol] 79.9 fL Low 80.0-100.0 [facility] Comment on above: Performed By: #### 2 779405, 92915472, 8895782, 5751726, 8787969, 97456798, 2160123, 0439701 #### [facility] [address] [place] [address] Platelet mean volume (Bld) [Entitic vol] 7.9 fL Normal 6.4-10.8 [facility] Comment on above: Performed By: #### 2 684351, 87787237, 8028601, 9774715, 1790217, 04237069, 1471603, 7713591 #### [facility] [address] [place] [address] Platelets (Bld) [#/Vol] 249.0 E9/L Normal 150.0-500. 0 [facility] Comment on above: Performed By: #### 2 777042, 83871687, 8917008, 9711993, 2408601, 09314774, 1160722, 5033993 #### [facility] [address] [place], [place] [address] RBC (Bld) [#/Vol] 3.7 E12/L Low 4.3-5.9 [facility] Comment on above: Performed By: #### 2 368778, 40008820, 3235118, 8976743, 4251038, 01788732, 9292501, 2777373 #### [facility] [address] [place] [address] WBC corrected for nucl RBC Auto (Bld) [#/Vol] 5.9 E9/L Normal 4.0-11.[address] [facility] Comment on above: Performed By: #### 2 614294, 43935582, 5012982, 9869550, 1955869, 72050130, 7197268, 5929228 #### [facility] [address] [place] [address] CHEMISTRYOrdered By: SYSTEM SYSTEM on 09-27-2022 Albumin [...] Remisol CRP [Mass/Vol] 7.5 mg/dL High <=1.9mg/dL [facility] Remis ol GFR/1.73 sq M.predicted among non-blacks MDRD (S/P/Bld) [Vol rate/Area] 49 mL/min/1.73 m2 Low >=59mL/min /1.73 m2 [facility] Chem S Globulin (S) [Mass/Vol] 3.2 g/dL Normal 1.4 - 4.0 gm/dL [facility] Remisol Glucose [Mass/Vol] 84 mg/dL Normal 55 - 199 mg/dL [facility] Remisol Lactate [Mass/Vol] 0.5 mmol/L Normal 0.5 - 2.2 mmol/L [facility] Remisol Potassium [Moles/Vol] 3.6 mmol/L Normal 3.5 [...] 09-27-2022 CRP [Mass/Vol] 7.5 mg/dL High <=1.9 [facility] Comment on above: Performed By: #### 2 583583, 16553315, 1890658, 7417569, 5062799, 80599473, 2866484, 0685691 #### [facility] [address] [place] [address] Consent To Leave AMAon 09-27 Consent To Leave AMA [id number]:127 Normal [facility] Consent for Treatmenton Consent for Treatment [id number]:127 Normal [facility] Discharge Instructionson Discharge Instructions [id number]:127 Normal [facility] ED Clinical Summaryon 2022 ED Clinical Summary (Inserted Image. Zora ble to display) [address] [address] ED Clinical Summary Person Information Name: [facility] Age[facility] 67 Years : 1955 Sex: Female Language: Mozambican PCP: WARD ZUNIGA DO Marital Status: Visit [...] 09/27/2022 11:03:38 09/27/2022 11:03:38 09/27/2022 11:03:38 ADDRESS: [address] [place] [id number] PHYS DOC NOTES: MEDICAL INFORMATION: Prescriptions Given: New Medications [facility] [id number], [address], [place] [id number], [phone] cephalexin (Keflex 500 mg Cap) 1 Capsules [...] (Celebrate Multivi (more content not included)... Normal [facility] ED Note-Physicianon 09-28-19 ED Note-Physician Basic Information [...] She states she then went to the [facility] Urgent care clinic and she was prescribed [...] entirety with (more content not included)... Normal [facility] Comment on above: Result Comment: Elec tronically [...] these instructions at home: Medicines ? Take godd-oue-smpaydq and prescription medicines only as told by [...] provider. Document Revised: 12/23/2021 Document Reviewed: 12/23/2021 [employer] Patient Education ? 2022 [employer] Normal [facility] ED Patient Summaryon 023 ED Patient Summary (Inserted Image. Zora ble to display) [place] [id number] Patient Discharge Instructions Person Information Name: GERRY VICTORIA Age: 67 Years Arrival Date: 09/26/2022 22:52:57 Discharge Diagnosis: 1:Cellulitis of leg; 2:CAD (coronary atherosclerotic disease); 3:RLS (restless legs syndrome); 4:Hypothyroid; 5:HLD (hyperlipidemia); 6:Depression; 7:On deep vein thrombosis (DVT) prophylaxis; Left against medical advice Primary Care Physician: WARD ZUNIGA DO Provider Information Primary Provider: Chintan Heller DO Advanced Adjunct Professor Of Law:None The exam and treatment you received in the Emergency Department were for an urgent problem and are not intended as complete care. It is important that you follow up with a doctor, nurse practitioner, or physician?s quality control assistant for ongoing care. If your symptoms [...] With: Address: When: WARD ZUNIGA [address] [facility] [address] [place], [place] [id number] In 3 days 09/30/2022 In the event that this physician does not participate in your insurance network, please consult with your insurance company to find a nearby participating provider. Patient Education Materials: Cellulitis, Adult, Jfsw-ql-Fofx A MESSAGE TO ALL PATIENTS REGARDING OPIOIDS PRESCRIPTION OPIOIDS: WHAT YOU NEED TO KNOW Prescription opioids can be used to help relieve hniejdjn-od-plztkr pain and are often prescribed following a [...] you belie (more content not included)... Normal [facility] HEMATOLOGYOrdered By: SYSTEM SYSTEM on 09-27-2022 Basophils/100 [...] - 7.5 E9/L [facility] HemeAutoSS HEMATOLOGYOrdered By: Lzi Bueno on 09-27-2022 Erythrocyte distribution width (RBC) [...] 7.9 fL Normal 6.4 - 10.8 fL [facility] HemeAutoSS Platelets (Bld) [#/Vol] 249.0 E9/L Normal 150.0 - 500.0 E9/L [facility] HemeAutoSS RBC (Bld) [#/Vol] 3.7 E12/L Low 4.3 - 5.9 E12/L [facility] HemeAutoSS Sed Rate Automated 25 mm/h Normal 0 - 34 mm/hr [facility] HemeAutoSS WBC corrected for nucl RBC Auto (Bld) [#/Vol] 5.9 E9/L Normal 4.0 - 11.0 E9/L [facility] HemeAutoSS Hep Func Panelon 09-27-2022 Albumin [Mass/Vol] 3.8 g/dL Normal 3.3-5.0 [facility] Comment on above: Performed By: #### 2 390028, 98191346, 1870272, 9779725, 1620628, 66663174, 0022342, 6903852 ####[facility] [address] [place] [address] Albumin/Globulin (S) [Mass conc ratio] 1.2 Normal 1.1-2.2 [facility] Comment on above: Performed By: #### 2 884512, 26746812, 4126053, 9983080, 0974224, 29506279, 8848043, 3422404 ####[facility] [address] [place] [address] ALP [Catalytic activity/Vol] 79 Int._Unit/L Normal 21-98 [facility] Comment on above: Performed By: #### 2 087515, 04312627, 4003486, 5759223, 2917579, 58215906, 1642959, 2430250 ####[facility] [address] [place] [address] ALT No additional P-5'-P [Catalytic activity/Vol] 11 Int._Unit/L Normal 6-46 [facility] Comment on above: Performed By: #### 2 016592, 89196896, 4323153, 0260578, 0638250, 07788120, 2091989, 1580834 ####[facility] [address] [place] [address] AST [Catalytic activity/Vol] 19 Int._Unit/L Normal 5-43 [facility] Comment on above: Performed By: #### 2 528209, 46195260, 2499236, 1065441, 1236452, 95972624, 7454458, 5631572 ####[facility] [address] [place] [address] Bilirubin [Mass/Vol] 0.6 mg/dL Normal 0.0-1.1 [facility] Comment on above: Performed By: #### 2 125942, 84258017, 7600726, 4469079, 9849355, 68548867, 4983761, 2682436 ####[place] [address] [place] [address] Bilirubin.direct [Mass/Vol] 0.1 mg/dL Normal 0.1-0.4 [facility] Comment on above: Performed By: #### 2 937883, 48005466, 6797403, 0139412, 2336954, 53625762, 8458810, 3964175 ####[address] [address] Bilirubin.indirect [Mass or moles/Vol] 0.5 mg/dL Normal 0.1-0.9 [facility] Comment on above: Performed By: #### 2 372446, 82172187, 5209137, 2169942, 4881279, 84811260, 3791569, 3385355 ####[facility] [address] [place] [address] Globulin (S) [Mass/Vol] 3.2 g/dL Normal 1.4-4.0 [facility] Comment on above: Performed By: #### 2 119371, 41855088, 1712504, 0385562, 8730142, 26050958, 2916518, 0865482 ####[facility] [address] [place] [address] Protein [Mass/Vol] 7.0 g/dL Normal 6.0-7.8 [facility] Comment on above: Performed By: #### 2 684831, 88374372, 5812018, 7934303, 9834056, 05206970, 8739357, 6783016 ####[address] [address] Lactic Acidon 07-04-2023 Lactate [Mass/Vol] 0.5 mmol/L Normal 0.5-2.2 [facility] Comment on above: Performed By: #### 2 289313, 01199872, 8064006, 0063636, 7313511, 43942946, 8801176, 8053654 #### [facility] [address] [place] [address] Sed Rate Automatedon 023 Sed Rate Automated 25 mm/hr Normal 0-34 [facility] Comment on above: Performed By: #### 2 226797, 45693877, 3475825, 3536755, 8062477, 81591041, 6986530, 5691250 #### [facility] [address] [place] [address] UA With Cult Reflexon 2022 Bilirubin Ql (U) Negative Normal Negative [facility] Comment on above: Performed By: #### 1 0478218 ####[facility] [address] [place] [address] Clarity (U) SL CLOUDY Invalid Interpretation Code [facility] Comment on above: Performed By: #### 1 5967929 ####[facility] [address] [place] [address] Color (U) YELLOW Normal Yellow [facility] Comment on above: Performed By: #### 1 2760404 ####[facility] [address] [place] [address] Epithelial cells.squamous LM.HPF (Urine sed) [#/Area] /[HPF] Normal 0-2 [facility] Comment on above: Performed By: #### 1 9434959 ####[facility] [address] [place] [address] Glucose Test strip (U) [Mass/Vol] Negative Normal Negative [facility] Comment on above: Performed By: #### 1 2142690 ####[facility] [address] [place] [address] Hemoglobin Ql (U) Negative Normal Negative [facility] Comment on above: Performed By: #### 1 9591938 ####[place] [address] [place] [address] Ketones (U) [Mass/Vol] Negative Normal Negative [facility] Comment on above: Performed By: #### 1 9504575 ####[address] [address] [place].plasma/[place] .RBC (Bld) [Mass ratio] 0-3 Normal 0-3 [facility] Comment on above: Performed By: #### 1 4194850 ####[address] [address] Mucus Ql (Urine sed) TRACE Normal [facility] Comment on above: Performed By: #### 1 0078670 ####[address] [address] Nitrite Ql (U) Negative Normal Negative [facility] Comment on above: Performed By: #### 1 4200665 ####[address] [address] pH (U) 6.0 [pH] Invalid Interpretation Code 5.0-9.0 [facility] Comment on above: Performed By: #### 1 7126251 ####[address] [address] Protein (U) [Mass/Vol] Negative Normal Negative [facility] Comment on above: Performed By: #### 1 3028431 ####[address] [address] Specific gravity (U) [Rel density] 1.010 Invalid Interpretation Code 1.005-1.03 0 [facility] Comment on above: Performed By: #### 1 6029329 ####[address] [address] Type of Urine collection method Clean Catch Normal [facility] Comment on above: Performed By: #### 1 5299917 ####[address] [address] Urobilinogen Qn (U) 0.2 {Olivia'U}/dL Normal 0.0-1.0 [facility] Comment on above: Performed By: #### 1 7727372 ####[facility] [address] [place] [address] WBC Auto Ql (U) TRACE Abnormal Negative [facility] Comment on above: Performed By: #### 1 5634302 ####[facility] [id number] [place] [address] WBC LM.HPF (Urine sed) [#/Area] 0-5 Normal 0-5 [facility] Comment on above: Performed By: #### 1 [id number] ####[facility] [id number] [place] [address] URINALYSISOrdered By: Liz Bueno on 09-27-2022 Bilirubin Ql (U) Negative (09/27/22 4:48 AM) Normal Negative [facility] UA Auto SS Clarity (U) SL CLOUDY Invalid Interpretation Code [facility] UA Auto SS Color (U) Yellow (09/27/22 4:48 AM) Normal Yellow [facility] UA Auto SS Epithelial cells.squamous LM.HPF (Urine sed) [#/Area] /[HPF] Normal 0-2/HPF [facility] UA Aut o SS Glucose Test strip (U) [Mass/Vol] Negative (09/27/22 4:48 AM) Normal Negative [facility] UA Auto SS Hemoglobin Ql (U) Negative (09/27/22 4:48 AM) Normal Negative [facility] UA Auto SS Ketones (U) [Mass/Vol] Negative (09/27/22 4:48 AM) Normal Negative [facility] UA Auto SS [place].plasma/[place] .RBC (Bld) [Mass ratio] 0-3 /HPF Normal [...] [Mass/Vol] Negative (09/27/22 4:48 AM) Normal Negative [facility] UA Auto SS Specific gravity (U) [Rel density] 1.010 *NA* (09/27/22 4:48 AM) Invalid Interpretation Code 1.005 - 1.030 [facility] UA Auto SS UA Spec Desc Clean Catch (09/27/22 4:48 AM) Normal [facility] UA Auto SS Urobilinogen Qn (U) 0.5843859 {Olivia'U}/dL Normal 0.0 - 1.0 EU/dL [facility] UA Auto SS WBC Auto Ql (U) Trace *ABN* (09/27/22 4:48 AM) Invalid Interpretation Code Negative [facility] UA Auto SS WBC LM.HPF (Urine sed) [#/Area] 0-5 /HPF Normal 0-5/HPF [facility] UA Auto SS XR Ankle 3+ Views [...] mGy = na DAP = na Normal [facility] eGFRon 09-27-2022 GFR/1.73 sq M.predicted among non-blacks MDRD (S/P/Bld) [Vol rate/Area] 49 mL/min/1.73 m2 Low >=59 [facility] Comment on above: Order Comment: Order added by Discern Expert. Result Comment: [employer] heidi kidney disease could be indicated at eGFR's of less than 60 mL/min/1.73m2. Kidney failure is indicated at less than 15 mL/min/1.73m2. Performed By: #### 2 [id number], [id number] ####[facility] [id number] [place] [address] Pre-Certification Formon Pre-Certification Form PT SCHEDULED W/ D R.MCBRIDE FOR LAP MERLYN ON 07/26/22 PARAMOUNT PRIMARY AND ACTIVE NPCR PER PARAMOUNT CODE REGISTERED NURSE (88752) DX PASSES MEDNES Normal [facility] Free T4 (Free Thyroxine)on 0 09-06-2022 Free T4 [Mass/Vol] 0.30 ng/dL Low 0.61-1.12 [facility] Comment on above: Performed By: #### B MP, CBC, LIPASE, HEPATIC #### [facility] [address] Thyroid Stimulating Hormoneo n 09-06-2022 TSH Qn 14.86 m[IU]/L High 0.45-5.33 [facility] Comment on above: Result Comment: PERF ORMED BY: [place] [address] PATHOLOGIST SILK BRUSHER WILDER BOTELLO M.D. Performed By: #### B MP, CBC, LIPASE, HEPATIC #### [facility] [address] Thyrotropin [Units/volume] i n Serum or PlasmaOrdered By: Ward Zuniga on 09-06-2022 TSH Qn 14.86 m[IU]/L 0.45-5.33 [facility] Thyroxine (T4) free [Mass/vo lume] in Serum or PlasmaOrdered By: Ward Zuniga on 09-06-2022 Free T4 [Mass/Vol] 0.30 ng/dL 0.61-1.12 [facility] Triiodothyronine (T3) Freeon 09-06-2022 Triiodothyronine (T3) Free 2.19 pg/mL Low 2.50-3.90 [facility] Comment on above: Result Comment: PERF ORMED BY: [facility] [address] [place] [id number] PATHOLOGIST SILK BRUSHER WILDER BOTELLO M.D. Performed By: #### B MP, CBC, LIPASE, HEPATIC #### [facility] [address] Triiodothyronine (T3) Free [ Mass/volume] in Serum or PlasmaOrdered By: Ward Zuniga on 09-06-2022 Free T3 [Mass/Vol] 2.19 pg/mL 2.50-3.90 [facility] Coding Summary.on 08-02-2022 Coding Summary. CD:[id number] Ww+PGh lYWQ+OT0WPEUhN50mhDQwjP1wV 0NMTElOSywgQVBQTElOSyIgbmF iQY0slEDbQROg IC8+KA2cVVBfFdhkgOIhi4O7gY M6A69rpr3kVQabjEK1DPOqExBg tspcc2nasOo3PTjdMzivGdMf OAJjdL57NVY8rD91Vm65dURryM Mey8pqkGj0KkLhHEDgHJF8nKxx HEysw7FlPXCqZ86xtYXwl6T1 EUDxaMmssBSwItKfxTI1mZ5pUU zphckae5uigyqxEza4nj55dBIa w6U2nWL8W2TbrrO1EZXukFAt OggrvPVUrP7thdpkm0nchudjSh BmHZDfJVp7CTj3YCTocYkmJcYy XU74ESK8ROKtydXeS1YnULEg bIkgIdS5t0L4Vt7CC3RZIrzuX4 VNTUFSWTwvdGQ+ZA25jq46W3Or PmwkGjo6XYYqTIF7xNH3rH6h KGZvYBqnh1N1eLQ2W6PlsrZfwl 2pz4onFZGoBDqgC80qyZGjn0Q6 HUJvrGI6FMPvzJnlCuBeiZ29 Oyc+LHHwtKcmg2EeIekoa6zrx9 bslVr2CvgqMJLmerBgtUakMHU7 q7AkAk6gOZDbwTP6wWH2bG4f LdBxXdU3SDcdZ947OeRwwUCsKf rgV92fV9FsjYP+UAOhBbo1OLZv lXocBF3uI2EsMBUkxnisyBAj fHcwKJ8dTFOhiabhNXUxbL1iWR IlO1l7JfJtTcN3FElzA3YzLFHj qirtPa76jR6aAvSyYiX2NTgq T4JlptG2CPIcuLEtTVgfLYD9X1 5cl6V1CLUnZGNmXFH5fGS6cZ0u bGlnbjogbGVmdDsgdmVydGlj NEpkERozN508DXMslSbjXkWlKP luZyBEYXRlOiAgMDUvMDkvMjAy MzwvdGQ+ABUyBVG9jNouDOVa uBFzYBsuZz2lrBfneAyhHJ3xQL WusgybPZRgkX9nDNBqzSXceZqu EF5jZRBsniddz477SiJyFOB9 CHHhdZBpM3McmM0gRbZcKFPvCT FaF3WmgCShFDuqT039EYwmXdH8 VPGilhRpK3PuFAGztKnwGdZ2 h3E4Tw6Iz0ZeoajeG7ItzCAlCu YtOdmpOAr1I3RtAxkdfMY+PC90 SOWmMX37GNz4AEA9nJhpPOke QZWmV9UspD8jPtDwOIQyLMVcEt c+PHRhYmxlIHdpZHRoPScxMDAl CsAuoVggVQ3sWn1fQLUdXPSf oQfrhLVbTuWqu7dqJRSvQZgbWI 5eaNwpE4CskCY5ZWOwj2r8Om36 I09nI9HpxTG+HXEjzUA2iNY9 zU6vEpHyGgL3DMgrO251DiTzsJ JoUvabq3wyr1nieHt4IaE3KRJp vkUzpJzmCDM7g4IuKu68M27i IHdpZHRoPSIxNSUiIHZhbGlnbj 5jiJ9lLq2+HESrqQD1nWD1nO9m IyUxOjX1ULsvR350AnGaqGTn Npwlb3npg1qqvAh7XjFpRMXvvo FlpEtyOCR9u9MkDq31R0KdaJwo s8SgSqq8st04uTQhr1K1hVW0 G5UhYTHkprsbdRDkfXjiIF2zFW MucmhoTXTpeE0iJAQgA3x5KlYq TaM9UZskW7GeidY2LWCnsXHt OJKguLWNeG4llsrdz1kwalljSa ImXPMyEDb0TTd9DTAfjQbvHvGe PIX8BpE0PFU7wLHnlF9rwKtb hgbgdG0vDxf+DAH1iHZejFAFRL 1lOjwvdGQ+URQdBCH7gAfhLGig MBYfvF3yLBPkI2t2NtPjJsY2 ARhbF3NogfZ2BAPpuXTqQELysJ JEtX4ncqtie8cghspcQuPdCJXd SMq9UVh4ARRnwUrgGtYwONL9 YnS9PYP2fHRyzV4niOrqlezysP 9wOyc+UgzskLanYKI0EVq0C3Df Jpb2OJOptVpbVZ1jfFZiKVit Dr4hqKjzaGjxQY9jRTVtbxyvb0 05MnPad7kjPUIlyNEsRXkcGQI8 N35xz8H4ANAuRZIfCYW3fGF3 gI2zzFttkrhvlIWukAtepbTpuV fkZTzuTDpcG609KZQnrWxcSzUo HVb5J2DcLnv5KWEdzKmkTT6x vCZrYUvmRu2opQhdrOpqVH3pMY Yiatryx097XkCtp4idNBXuaTIe RFofVOA7F59wx9Z9EBCjNVIb BAR8zZG8tB1rwSohjmwvbWMbfT qrjnQafIuzJWdcVVweZ204RVFk wMzdWwHvmBi6N3UoJnw0CKPc qDqyEV5pyBGuDHxqFt7vkPawkM hoGZ4gCHLuzyjsm349AnStu2nt VLFlcMKfYHqiLWD4Z56gx9S2 EUXyVVVnVII0uWS1tE5huIvroy ogbGVmdDsgdmVydGljYWwtYWxp D467YGTcjCcbFtAcxUpwusWy VJtiMIy5C4ZxRavnqPX+PC90YW PvEC73fXCprNJax1cvxXf3SaEi YUZtWJR7vRqhIZgrm5LnYFNm C33heDJbt7G3PCEoxLwxuIOaDz BmnLR0bZ1uRPhlpazpq2nmnykn Libcg4rroz10iI87H91gJGkt NBUkJGJyEFDcCPNnsVvpju5tlY 9wIi8+INCfqBI5jGE7xS2bMUVm KvZ0UCamU017GmVkfEUzXitu c2ksp7wjwRe1TlK1JDHfmrTdpS wqCIB7t5KmAn81N28vRTpbJCCp XUEwZPMxWCWzxGupeb8lwR2n Ii8+UQTvmLV8jXH0mL7vAkCcCq U3XJyyU642GxRjqFYuBkzuB11z V5RfaFI+HVHxUbk3WQWioCta SC9bpDSaVTuwVp7wERU1CiFpAy FdMVxcM8EmQMFettewmjuabLN9 OXDgIGNegM35Ex7hqPfnIWRi jDHNiI6etpkrm0pqwcmfJeUhKS KbXAs9CLy9QNUwbBpnFkYdIVS6 QrV2KGE8yTQlgK2feQsxgovw zX3oP9JlWLAkidezCh47zB8kQz EpHnJ6IZfjZgj+GZgLNR2SQTLT APBXLgNFFA71UZ87uBZpa9F9 qEV8X3IoWTVrudujdssssMW4UB PwXYCsaB24lCXrVZtoPx7fx9B9 b070ZZJsWBSfkQ76Ju7tzJou KYSlbABQhB6kjedsv2dtbdwjWq YeLXEdONf0TZw0ECYurEggSiPp FPL4TsS5IYK8zIUzpQ0txKjs tauhlD6yFoe+PGBsAsZdZTp2UH wvdGQ+MWLvMIZ8bZyzCLroIKGo uS4cRPDxS0q5RzQmFrL0AKvo A8BcYYBhcibdLy83dT6eTiXbKu R0SBvmF4LmtkT0XWVfwJGwGIxd YYQ9I66ef8X2OHQxWRCyWKH7 bRH2iN1wxEivqzzngZRpbPjlvn CfbHkiGTcaLNmtC510DLJpiEst QfH9TSizGFEmIY31JR76lHIx l4E2dYS5Z9VbFRAuxizjjoxznX B7OBZkEZNguP34zBUxSYmuBa5h w9Z8k915SOKmXKMauP04Eg9g gNduOTCwaIJYgY6zbzmuk0burz mrXbKnFNMmQVr1MZs2YSUrnScw BwAkYSN9UuV4XQW6xSDcoC1c cSdatgmamQ3aHpo+RmVtYWxlPC 67PI93pYUpc0Z2dLY5U2AyIAAo utlqlzwbmXR7FQVtHNCklL04 mNXdJAkbRb9ak7Q2z333FCEbXF ZtvR60Nh1ibEbdBWZbiBZLbS8g fyvaq1lwgtjgCjTwEWQqWCd4 BUb9XTYncCipNxDeKQG6WcM6RG B4lZHlhV5zxLynhsrsgZ1aOuc+ RN4giAoimR7qjG0WUT3dPZKr cTGLvMCgCLA9XD18QB33D1YiWt wvdGFibGU+PHRhYmxlIHdpZHRo OYoaRVZrQyPhuOgrXU8hVf0r ELAsTAErqIzzvVQyUzOpw0dcJX TpCLsoCD7uaVuuF4PpvHM7GFTf r0m8Yz19H06sP9VdvZA+PGNv eHW1hSQ3uD7oThDiLlA4TDtaL5 59FxEvaZUvCelgl3bwm3tcvJv4 VnQaFMCeqsVrhAodOAI6o5Zo He82B27lANglIZJkYGBkTYDcMT QbjUzylg3wsR7sPa5+PGNvbCB3 qLN1jI8kQjHnFcI2GCwaY561 WgPjzDCdZangC48fY6XfsMZ+PH GdEti7QMTreVzjNJ9sfQCfNQqj Wz0yTXI2UsGlGtNmUPqqK1Uc TQOwwrnjayhotVH5EMEsDRPggT 54Tc8tnZtgSu5xIYVcYCD7ZHUu uINsR0RtzG3mByJjTIHlHLQa A2NbcDAaNOddX123VJhtTgG9OE RhpaCcZ1ViPZXpbHfyPiA1x1U8 Mh6QnQxdgWMdXA8sLiSiYGj8 U8LeAsf2DWQwhGfyWZ2eyTViSE wuZf9aeEvmlDnbWW0lKNRjnsus c139BxWlp7ofKKZveFQxTGbd AFZ9N30qo8K6XGFrRHDzCYW4lP A0fK7dzMxwbogwjYUrqDrofzGs eDdjFMslUHmkD414SOQmqTxj LwWHExd8M6KmMsd8KCBvyWwzQP 8jiYJmHXwjDt0evIzcxLzpMD2n IAUbwaxrg557WrSxp3uuGUTu rKCaPFouZZP6R17dl4E6NKNsTG FmIZP4cCZ0yZ2goDanqfellMYh fKfwqjTimZldOBmzWQueH901 SXDlsQcsMh5BMjc8Z9RrKuw5VS PucKznHY8gpIKzZOwgQc7fxLgz bDgsDH3jHKGtlluii447QbLt q5vsBYFhxLMwBYpoRYW9H45gp9 Q3HDPgTNJmRKL9rIK0yQ7jxHtg bjogbGVmdDsgdmVydGljYWwt SLudQ643YEJhyUgzOjGgzNPmCp wvdGQ+NS71bw64T6KbJokdZwr2 MYOiWCA6rNF6bJ2iKXLyUFwc e3C1pAW6 (more content not included)... Normal [facility] IntraOperative Documentson 0 07-29-2022 IntraOperative Documents [id number]#1.00CD:127 [facility] Postoperative Documentson Postoperative Documents [id number]#1.00CD:127 [facility] Main OR Intraoperative Recor don 07-28-2022 Main OR Intraoperative Record IntraOp Document Type FT Summary Primary Physician: Talon Mcbride DO Finalized Date/Time: 07/28/22 08:06:27 Pt. Name: GERRY VICTORIA/Sex: 1955 Female Med Rec #: [id number] Physician: Talon Mcbride DO Financial #: [id number] Pt. Type: A Room/Bed: Admit/Disch: 07/26/22 05:37:39 - 07/26/22 14:50:00 Institution: [...] Entry 2 Entry 3 Case Attendee Deppen ESTIMATOR PRINTING, Jeana Mcbride DO, Talon Theodore PAAngyC, Candis Smith Role Performed ESTIMATOR PRINTING Surgeon - Primary PA/ASSISTANT WRESTLING COACH Time In 07/26/22 08:22:00 07/26/22 08:22:00 07/26/22 08:22:00 Time Out 07/26/22 11:45:00 07/26/22 11:45:00 07/26/22 11:45:00 Procedure CHOLECYSTECTOMY CHOLECYSTECTOMY CHOLECYSTECTOMY LAPAROSCOPIC W/ LAPAROSCOPIC W/ LAPAROSCOPIC W/ CHOLANGI(.) CHOLANGI(.) CHOLANGI(.) Comments dr winston supervising Last Modified By: Karson RN, Umu Ty RN, Umu Ty RN, Umu Weber 07/26/22 11:54:21 07/26/22 11:54:21 07/26/22 11:54:21 Entry 4 Entry 5 Entry 6 Case Attendee Karson BACON, Belkys Andrade Ii, Sarah M Role Performed Tankman - Primary Staff - Other Scrub - Primary Time In 07/26/22 08:22:00 07/26/22 08:22:00 07/26/22 08:22:00 Time Out 07/26/22 11:45:00 07/26/22 11:45:00 07/26/22 11:45:00 Procedure CHOLECYSTECTOMY CHOLECYSTECTOMY CHOLECYSTECTOMY LAPAROSCOPIC W/ LAPAROSCOPIC W/ LAPAROSCOPIC W/ CHOLANGI(.) CHOLANGI(.) CHOLANGI(.) Comments ORIENTATION RENETTA PANIAGUA DRUG SAFETY COORDINATOR STUDENT, ALSO SCRUBBED IN Last Modified By: Karson RN, Umu Ty RN, Umu Ty RN, Umu Weber 07/26/22 11:54:21 07/26/22 11:54:21 07/26/22 11:54:21 Entry 7 Entry 8 Entry 9 Case Attendee Daphney RN, Ivet Newton RN, Jess Foley RT(R), Mamta Valles Role Performed Tankman - Relief Tankman - Relief Pouch Maker Time In 07/26/22 09:08:00 07/26/22 09:08:00 07/26/22 [...] Comments: SANGITA CAMILO, ALSO IN ATTENDANCE. JORDI NEALtextile designs sales representative Protocols FT Pre-Care Text: Implements protective measures [...] Applicable) PreOp Antibiotic Yes Time Out Deppen Jeana MENDES, Given Participants Talon Mcbride DO, Waite PA-C, Candis Smith, Karson BACON, Alicia Marinelli Alfons Ii F, Juliana Delgado [...] Diagnosis C (more content not included)... Normal [facility] XR Cholangiogram in ORon XR Cholangiogram in [...] in mGy = 17.37 DAP = na [facility] Blood Bank Slipon 07-27-2022 Blood Bank Slip [id number]#1.00CD:127 [facility] Consent for Anesthesiaon Consent for Anesthesia [id number]#1.00CD:127 [facility] Discharge Instructionson Discharge Instructions [id number]#1.00CD:127 [facility] IntraOperative Documentson 0 07-27-2022 IntraOperative Documents [id number]#1.00CD:127 Normal [facility] Preoperative Documentson Preoperative Documents [id number]#1.00CD:127 Normal [facility] ABO/Rhon 07-26-2022 ABO/Rh Positive Invalid Interpretation Code [facility] Comment on above: Performed By: #### 1 [id number] #### [facility] [address] [place] [address] ABO/Rh History Checkon 07-26 ABO/Rh History Check Verified Hx Blood Type Normal [facility] Comment on above: Performed By: #### 1 [id number] #### [facility] [address] [place] [address] ABSCon 07-26-2022 ABSC Gel Interp Negative Normal [facility] Comment on above: Performed By: #### 1 [id number] #### [facility] [address] [place] [address] BLOOD BANKOrdered By: Dell Taylor on 07-26-2022 ABO/Rh Interp Positive Invalid Interpretation Code [facility] BB Subsection ABSC Gel Interp Negative (07/26/22 6:23 AM) Normal [facility] BB Subsection Blood Bank ID#on 07-26-2022 BBID# [id number] Invalid Interpretation Code [facility] Comment on above: Performed By: #### 1 [id number] #### [facility] [address] [place] [address] Consent for Procedure/Surger yon 07-26-2022 Consent for Procedure/Surgery [id number]#1.00CD:127 Normal [facility] Consent for Treatmenton Consent for Treatment [id number]#1.00CD:127 Normal [facility] Discharge Instructionson Discharge Instructions GERRY VICTORIA :1955 [...] Diagnostic Test Results Biopsy/pathology Pharmacy Information Octavia Leal Previously Scheduled Follow-Up Appointments Monday 11:00 AM EDT With: Where[facility] 20[facility] 1:00 PM EDT With: ELIJAH SNOWDEN, MARYCARMEN Enrique Where: [facility] Normal [facility] Comment on above: Result Comment: Elec tronically Signed By: Mili BACON, Robina Whitaker\Date and Time Signed: 07/26/22 13:15 EDT H&P Updateon 07-26-2022 H&P Update [id number]#1.00CD:127 Normal [facility] HEMATOLOGYOrdered By: Lucero Ramirez on 07-26-2022 Hematocrit (Bld) [Volume fraction] 31.8 % Low 34.0 - 46.0 % [facility] HemeAutoSS Hemoglobin (Bld) [Mass/Vol] 10.1 g/dL Low 12.0 - 16.0 gm/dL [facility] HemeAutoSS Hct & Hgbon 07-26-2022 Hematocrit (Bld) [Volume fraction] 31.8 % Low 34.0-46.0 [facility] Comment on above: Performed By: #### 1 [id number] #### [facility] [address] [place] [address] Hemoglobin (Bld) [Mass/Vol] 10.1 g/dL Low 12.0-16.0 [facility] Comment on above: Performed By: #### 1 [id number] #### [facility] [address] [place] [address] Main OR PACU I Recordon Main OR PACU I Record PACU Phase I Docum ent Type FT Summary Primary Physician: Talon Mcbride DO Finalized Date/Time: 07/26/22 12:58:56 Pt. Name: GERRY VICTORIA/Sex: 1955 Female Med Rec #: [id number] Physician: Talon Mcbride DO Financial #: [id number] Pt. Type: A Room/Bed: [facility]/ Admit/Disch: 07/26/22 05:37:39 - Institution: Case Times [...] Violette Castillo I Document Signatures Signed By: Vioeltte Castillo I 07/26/22 12:58 [facility] Main OR PACU II Recordon 05- 02-2023 Main OR PACU II Record PACU Phase II Doc ument Type FT Summary Primary Physician: Talon Mcbride DO Finalized Date/Time: 07/26/22 15:08:15 Pt. Name: GERRY VICTORIA Maryann Arnold/Sex: 1955 Female Med Rec #: [id number] Physician: Talon Mcbride DO Financial #: [id number] Pt. Type: A Room/Bed: [place] [address] Admit/Disch: 07/26/22 05:37:39 - 07/26/22 14:50:00 Institution: [...] By: Robina Garces RN 07/26/22 15:08 Normal [facility] Main OR Preoperative Recordo n 07-26-2022 Main OR Preoperative Record PreOp Document Type FT Summary Primary Physician: Talon Mcbride DO Finalized Date/Time: 07/26/22 09:32:38 Pt. Name: GERRY VICTORIA Maryann /Sex: 1955 Female Med Rec #: [id number] Physician: Talon Mcbride DO Financial #: [id number] Pt. Type: Room/Bed: [place] [address] Admit/Disch: 07/26/22 05:37:39 - Institution: Case Times [...] By: Umu Ty RN 07/26/22 09:32 Normal [facility] Monitor Recordon 07-26-2022 Monitor Record [id number]#1.00CD:127 Normal [facility] Monitor Record [id number]#1.00CD:127 [facility] Operative Reporton 3 Operative Report Indication for [...] Surgeon(s) Talon Mcbride DO (Surgeon - Primary) Cistern Room Working Supervisor Candis Theodore Anesthesia General Connie Winston DO (Parent Partner) Deppen Jeana MENDES (Other) Estimated Blood Loss 50 [...] defect was closed with interrupted 0 Vicryl gfrqwa-ap-ugfby sutures as well as the existing 0 Vicryl stay sutures. The skin incisions were closed with subcuticular 4-0 Monocryl suture. The skin incisions were then dressed with Dermabond. The prior percutaneous cholecystostomy site was covered with a 2 x 2 and tape. Patient was extubated and taken to PACU in stable condition. Normal [facility] Comment on above: Result Comment: Elec tronically [...] these instructions at home: Medicines ? Take sfii-hxn-jhvbeqc and prescription medicines only as told by [...] cannot use soap and water, use hand dairy frozen manager. ? Change your bandage. ? Leave stitches [...] provider. Document Revised: 09/14/2021 Document Reviewed: 09/14/2021 [employer] Patient Education ? 2022 [employer]. Cholelithiasis Cholelithiasis is a disease in which [...] types o (more content not included)... Normal [facility] Progress Note-Physicianon Progress Note-Physician Patient: GERRY VICTORIA [...] # 12 tab(s), Refills(s) 0, Pharmacy: [facility] [id number], 154, cm, 07/18/22 14:13:00 EDT, Height/Length Dosing, 74.6, kg, 07/18/22 14:13:00 EDT, Weight Dosing oxybutynin 10 mg ER Tab: 10 mg = 1 tab(s), Oral, Daily, # 90 tab(s), Refills(s) 3, Pharmacy: [facility] [id number], 154, cm, 11/30/21 13:27:00 EDT, Height/Length Dosing, [...] All Problems Acid reflux / SNOMED CT 0208466422 / Confirmed Anxiety / SNOMED CT 2655503507 / Confirmed Arthritis / SNOMED CT 4851900 / Confirmed Atrial fibrillation / SNOMED CT 98443934 / Confirmed Chronic fatigue syndrome / SNOMED CT 10858353 / Confirmed Constipation / SNOMED CT 864863906 / Confirmed Degenerative disc disease, lumbar / SNOMED CT 38903831 / Confirmed Depre (more content not included)... Normal [facility] Comment on above: Result Comment: Elec tronically [...] # 90 tab(s), Refills(s) 3, Pharmacy: [facility] [id number], 154, cm, 11/30/21 13:27:00 EDT, Height/Length Dosing, [...] All Problems Acid reflux / SNOMED CT 6055129144 / Confirmed Anxiety / SNOMED CT 8103690767 / Confirmed Arthritis / SNOMED CT 9636613 / Confirmed Atrial fibrillation / SNOMED CT 73793787 / Confirmed Chronic fatigue syndrome / SNOMED CT 64509071 / Confirmed Constipation / SNOMED CT 157302921 / Confirmed Degenerative disc disease, lumbar / SNOMED CT 94631410 / Confirmed Depression / SNOMED CT 90968438 / Confirmed Fibromyalgia / SNOMED CT 987571055 / Confirmed Herpes / SNOMED CT 680396642 / Confirmed History of irregular heartbeat / SNOMED CT 0566394900 / Confirmed (more content not included)... [facility] Comment on above: Result Comment: Elec tronically [...] # 90 tab(s), Refills(s) 3, Pharmacy: [facility] [id number], 154, cm, 11/30/21 13:27:00 EDT, Height/Length Dosing, [...] All Problems Acid reflux / SNOMED CT 5500991113 / Confirmed Anxiety / SNOMED CT 0467311601 / Confirmed Arthritis / SNOMED CT 9833858 / Confirmed Atrial fibrillation / SNOMED CT 31802303 / Confirmed Chronic fatigue syndrome / SNOMED CT 55592237 / Confirmed Constipation / SNOMED CT 736125834 / Confirmed Degenerative disc disease, lumbar / SNOMED CT 35393895 / Confirmed Depression / SNOMED CT 83186828 / Confirmed Fibromyalgia / SNOMED CT 061225215 / Confirmed Herpes / SNOMED CT 229079831 / Confirmed History of irregular heartbeat / SNOMED CT 7083190820 / Confirmed (more content not included)... [facility] Comment on above: Result Comment: Elec tronically Signed By: Connie Winston DO\.br\Date and Time Signed: 07/26/22 07:19 EDT Coding Summary.on 07-21-2022 Coding Summary. CD:[id number] Ww+PGh lYWQ+HF5BMGSkY40zhHRrwX5aH 0NMTElOSywgQVBQTElOSyIgbmF mWR1ruZRcLYCg IC8+RU6aDABnKzrixOJmz0B6pA Z2E15vkx2oLJqfjMM1JFVyCqYb hnrsc4hpdDg9UXroReizCiPd XFWfpV54HDN9oH74Bf26wFLolR Tfw7gjcEx5RbMzGYSuNBV3dMbj RTvzx8YdCOEcC97ucSAka4W7 IITplTrrmIFuReSbtZM8xB8gIL cjsfvnb3ruqrmvVbd4mj08fRKf e6A1tNE3A0EhcxT1WHHljITh SkwbnRLZcW3gjpivo3qevrgjWe RxAUEsTJc4BBk1ADIhbCswNrCj MD75JOU5FRZaloJrT1GaTVRe cElvHaL6x1K1Ye3YF7IKYdalC4 VNTUFSWTwvdGQ+VY64ub31P1Be UpjqKhl3RVNfOLZ0wJZ8xG7v YTPiYQxqx9O2dJP7D0UcypOrcv 6vi0rxKMNcYOalT97amWMnx6W2 BNXncUB1UKUujYtfDnLbzA65 Oyc+LYGwrUftq7IpXilnl6gli9 fotGz1XcrfCYNaqdWatZmwFCD9 c5IcPs8hWCRngLM8lIX2gA4l TxGdNaS4HOagD918OdEcaDWzZs smP00xV8UcvVQ+AKSrOhx8YBKm gWiaDQ5wI8FgAUPjuszpfUEm wQraYD8jSNRcxmdtLTJqmC2sDG FuP0e7XfNaZaT0KShoY4LjKEFd vqdvRs78fV8cRrIsGkP9XPin D8PptaA1HVVgnWWpNJvvIHA0C9 6qm7G4WQXwYEJsDWA7eNI7qG9d bGlnbjogbGVmdDsgdmVydGlj XZbeCQsqR150YIKnnIymJoBmXX luZyBEYXRlOiAgMDQvMjcvMjAy MzwvdGQ+NYOgNMF9gQfcQQAt mWFfIOayNz9jqZvwlJyyKB3kLO CbpgvuVUAuoW4hPQJxwQDebTss FR3mEYWaqbwmi798ZcHmHYG1 XFQvgEXcA2TddZ4pHoSoJKZiRN QdR0XydBYhTSvsY046STbkRiA2 USJktyIpY8WwYKEnxGorCwW3 q5P6Te9Nn3IsfonuY9AehBOfGx TsPajwOVc8X6IhCtdlpBJ+PC90 HPIbYM11VFt2VPO7yCvoMYsu KPIbD0PxyR8pOvDxHFZcNUMrJm c+PHRhYmxlIHdpZHRoPScxMDAl VeNcoXaiXW5yRp5vCSEsNYWj hHxefVHdWwWoa5kwIOZiAXmvNI 1dqGzhR6UtkRV8UDHrj1j9Zo84 B76lM0WzaXG+FYHeiLM0cKP5 eA8zVyIhQkA4FJtfY640GsVjkM ZfWxxik5mkr5iuoFu0IeI2XHCe cbMcwWjtLAO7b6SgRb03K44n IHdpZHRoPSIxNSUiIHZhbGlnbj 4meE1cUb1+TXBicKY2aPP9nZ1m SoGxHxK7GInjZ614TjPukEBb Gjsxy4vsk7jddWy7LjJtCZTdso WqyJhsWXS7l5GkGa74C3PdxRik n3KsNxe4yd17uDBhw3N8nYW0 V1PlUAMedoqrrWBjhHduFL8cGE FemqcsDPNxcS3wFIKnH7k1QtVr TpV2QGwgE8OnhsE7MMVhbIHz MBLlgHPQkO5uwanbu3qgqiezWi JoUYCjQFt3YXe0CWZvkObjJiMz BEB2GgL8FTN5yRKtvN6ebCji ozyjuJ8sHht+WQO3hIAudYBRWT 1lOjwvdGQ+NDMsFHW4sXftEDcr NMMmaH7sHZXyL7s2LgMjDvE6 YIfoF2DsrvI3HLWuqOWoDVAifP SMjR8hhgfik1axpxhvBiXeJMDv GZn9ULu8KBRfwCtqZjOlAKS0 GbR6CSA1oEUubB4mpAhdedhboG 9wOyc+YmmlgBbdPCX9KMm0V7Dt Owi7ZFMglPciPQ0gqXWwGNou Kv3eaHtkxBpmMS3gGUXvvqkxt2 72VtClr4uxYNNvsTGjPAwwEQA5 S70ar1S0VMNhQGCrWFL9dSN9 rZ2ggLnbwgkjePQeePfvnoHblO yhUFfkOUodC909REWukKiyHhBm JHx6Y2OkDau8OEMdvWeoGG6q nBVvZKjnBr5eeKewaHrrCB8eIK Nehtmxy747EzQbp0daNQPphSOb NXbkTSL2J61zn5Z1GZLmZMFy RDL6lFL4nE3qpBxvhvnqvEAhqE gopwSkjHdsGQihHRkbK544USTu zAqySoTgxCw6Q3WuFqb9TOUz fBraMB3bmQTrPBwhKu9aaWbxfA taZN6uZNAevowug272AyZfa0kx JKHjsTBfWJvjDTD7U90xt6E9 RTSoDSKcSTO8yIG1wH3epNizrb ogbGVmdDsgdmVydGljYWwtYWxp F276FDIucGqaUkEjfEbzmsHh BAxfXBx9G3ExSvizwGC+PC90YW VjDY63lPYgdUNye7sirIb1CwLt WCOhESI2aZdlKRdlo3CmSDSe B02juTIzz8O6YOQrlGawvGNmBz YtaSE9kS4mZPqrdgzcj3atlpxh Cbxbs7dzgp93pD58R25xFEva LQNgGGYcLUNiWYKgiDzqcl6izU 9wIi8+GYYtbPO5vJI9mF7aQJYn NeS0LMngO914IrSmvYOhDrzk u3qwz3eenNi5YnR6UHJynrNcoM myWYE7f6BsKn18V73aLFolZMAy RZQnQFEqGCJrrFebaq6deI8y Ii8+QOTgyWZ0rFL5wF7uArDkEc V7IWtzC411ExDrwSQzCspeY80m N8FdcTS+AVOeIyq5TTSsnWms ZM3qfLJhMIguYt2hLMU6YxIcLn KfXQdoT0SjAFKzseixpbuujUF7 AUXmSVIggB73Gl1axIlhSKZz sUVRdG2xbnwad7menoydBxElUI BeBVz9ULy9HNWfuRvhXuLoUEV5 HmW8INF9mWKckH6imTvyurgk sP4lU0CyDRSjrwkaVg78lC3nHr FcScU5PPxfTnt+ZQjQTF7NZHVR VMZZAmXCME06NQ81yHKwd4W0 bHM9O9WdPPFuxhuwxnxfuES0CX XsYXPhaH67xNBfBVnwWo8rb1G6 p550OUCwHBHqbH71Or9waLpa HULwtTMEtF4hxcjge6wliqpaSz WsXMXxQVo9BTh9ZDNicRveLjBj UED6XiB3GAZ8dZSclP4ufHgm udaxeB2yFvx+KPUhOfMsNUc0LB wvdGQ+OCSaAXB4aTjpRYdbMWKk vO3jCQMwL1g8XgRcWjN6XNng T8QrMAAbunbqHq74eY6gCmPrOw P9FJnjA8BiibM3KICixDAdPPwi XJF0Y77ar1J9FVKlMRZrCWG1 nEI1wC5awWcacqvceNRmuRhoeh PpbOghHPrnRAsfU956HQYeoGmb TyZ4HEkxPGZfLC96RT62sJAj g3K4zHQ5H5OdLTTaomjisbgwuW O7DZIvXJFyyG05zDJeWPwjOn0t [id number] fUpbKNQgdIQXnA1kgqwcp2wtba kiJkCiYXLqSSo9JSd4SQJobNxf AqTvADD9VrV6DXG5eDRwsS7j cPiznnzyoP9eGzr+RmVtYWxlPC 28DU32lMBmn3C8zJN9Q1VfMGDa aosebuzevPD0LFUvBPLhrY91 xSFlEPuaLj8lv9Y0u690IYLpGN HynJ05Dj8lzJjyWIWdqLABvZ8d perfa1hlhsadWlIbZAXhHWo4 QGj4PSEtoIfrOoYeVWH0NxL2FW Y2kVZhcI0lrJjjcnvtrG3gGds+ B8X7iPV7rQGccCmfwRK+PC90 mv26O6NpNxerUmp4EIVrQWO8qI E0gI2wXYOfCEoop3H2tIG4F9Jt xrTemc3ar4tkFOMtOMcuH71e iNDxs1Q4MDIxrJI5GNDhoKclRf IzrW60Fyi+XUVkaVukp0UhToth l3imd3pbyWn9GxVaVQPixzEe cQdiPSC3b3EpXx40X58xMZckUA XzSGAhYLNkOUVzlUegtb7hvN3z Ii8+YSNrxUH8oYD4mP7zCqWl KhF5AUquK104AtRcpNUeHfjpz9 bpe7lqePg9VgTbTTCmziZghQtj WXX3t5DrLt85D1WhsRalj0Qu Lgp3rq18wPZbw0J3hSC1H9SkJV ZrupxzlXLczTbuWX6pUWCmzpjp VNQnfX2zFEAgL1n2CePgVzJ8 URzcW2ZzyxM9KLSngEXcLZMhpG VRjK6znzeal2xrxisfWkLzWNZu OZr2OOg2WUAsqNqpJwLnBOP3 AjW6DCP8eMMaoM2kqQostjsdyK 9wOyc+OGp2r3nttPVyTT4ynCO5 VM06AU11wUUku1A4uMV5U2He CIObqanecdzweAJ7YNBrKZJhfR 65Uc4srGqaHo2vXSZqZKT9MVJj vXLxZ0QmfD1zBaWfTEVrRTZc B9LezVDbAKrlR429IMgkYqM6VL SwjqIyD2JrPTBqiWfiZbJ8u6Z0 Gv3RJM80IT82FJ97qGViu7X2 cYR6Y2YdALSlgvpgcfjncGN9PL VzMYKfeB98Rb9gfCmxKr8rOEIh BTC4JWSqoQFpW6TouL2tNeGz PKZsKMJgA4GbpXUxLDwjO837KF noOlU7SETaruSfK7PhPNDnnMfl HgC0z5F2Pb8UFs57CB01FY82 kHDoh2Q3iUY5D6KwNEGtlywsau yptFK9ZYWwMFWuaC40Zq9yvNrw Iy9nNXIwVLB1NZJgnMGjR5Jy jJ0jYyIkERFkMPFsC5QczLWuOS jaX711MJcxYkW7MPKoepMyL6Gz GCEnjOoqYqQ5o4D8Sg8NKVya dmy7I7QmHeirlEW+LV44GAZjCO 25jXIhzQXcn1wtzEc6FdRxEZSp MPO5fOpfZBijh4OcAXUwZ27v oZImi8V0 (more content not included)... Normal [facility] BUNon 07-18-2022 Urea nitrogen [Mass/Vol] 10 mg/dL Normal - [facility] Comment on above: Performed By: #### 2 686785, 9023224, 0600813, 4153796, 7981747, 04136554 ####[facility] [address] [place] [address] CBC w/Indiceson 07-18-2022 Erythrocyte distribution width (RBC) [Ratio] 16.6 % High 10.9-14.2 [facility] Comment on above: Performed By: #### 2 560597, 6560217, 7614305, 9829881, 1489846, 39957041 ####[address] [place] [address] Hematocrit (Bld) [Volume fraction] 29.8 % Low 34.0-46.0 [facility] Comment on above: Performed By: #### 2 240390, 4443162, 2397782, 8892842, 5331332, 08719024 ####[address] [address] Hemoglobin (Bld) [Mass/Vol] 9.5 g/dL Low 12.0-16.0 [facility] Comment on above: Performed By: #### 2 048762, 7139162, 8268552, 8911566, 2393436, 08364584 ####[facility] [address] [place] [address] MCH (RBC) [Entitic mass] 26.1 pg Low 27.0-34.0 [facility] Comment on above: Performed By: #### 2 631107, 3551639, 7645615, 9131291, 6727008, 34905787 ####[address] [address] MCHC (RBC) [Mass/Vol] 31.9 g/dL Normal 31.4-36.0 [facility] Comment on above: Performed By: #### 2 508221, 1836048, 5863480, 1090055, 2538647, 15974775 ####[address] [address] MCV (RBC) [Entitic vol] 81.9 fL Normal 80.0-100.0 [facility] Comment on above: Performed By: #### 2 133916, 9406197, 5784937, 8570614, 1758445, 82623017 ####[facility] [address] [place] [address] Platelet mean volume (Bld) [Entitic vol] 7.1 fL Normal 6.4-10.8 [facility] Comment on above: Performed By: #### 2 626150, 7283138, 2720278, 2857153, 1109644, 21354698 ####[facility] [address] [place] [address] Platelets (Bld) [#/Vol] 249.0 E9/L Normal 150.0-500. 0 [facility] Comment on above: Performed By: #### 2 189314, 8233515, 3101508, 0514355, 2935101, 41925427 ####[address] [place] [address] RBC (Bld) [#/Vol] 3.6 E12/L Low 4.3-5.9 [facility] Comment on above: Performed By: #### 2 000314, 8396520, 9443215, 5231995, 9310834, 80994059 ####[facility] [address] [place] [address] WBC corrected for nucl RBC Auto (Bld) [#/Vol] 5.0 E9/L Normal 4.0-11.[address] [facility] Comment on above: Performed By: #### 2 572978, 9008888, 8208756, 5936680, 5564172, 43296963 ####[facility] [address] [place] [address] CHEMISTRYOrdered By: SYSTEM SYSTEM on 07-18-2022 Anion gap [Moles/Vol] 9 mmol/L Normal 6 - 16 mEq/L FT [facility] Chloride [Moles/Vol] 101 mmol/L Normal 101 - 1 11 mmol/L [facility] CO2 [Moles/Vol] 30 mmol/L Normal 21 - 31 mmol/L [facility] Creatinine [Mass/Vol] 0.8 mg/dL Normal 0.5 - 1.3 mg/dL [facility] Remisol GFR/1.73 sq M.predicted among blacks MDRD (S/P/Bld) [Vol rate/Area] mL/min/1.73 m2 Normal >=59mL/min /1.73 m2 [facility] Chem S GFR/1.73 sq M.predicted among non-blacks MDRD (S/P/Bld) [Vol rate/Area] mL/min/1.73 m2 Normal >=59mL/min /1.73 m2 [facility] Chem S Glucose [Mass/Vol] 93 mg/dL Normal 55 - 199 mg/dL [facility] Remisol Potassium [Moles/Vol] 3.7 mmol/L Normal 3.5 - 5.3 mmol/L [facility] Remisol Sodium [Moles/Vol] 136 mmol/L Normal 135 - 145 mmol/L [facility] Remisol Urea nitrogen [Mass/Vol] 10 mg/dL Normal 5 - 21 mg/dL [facility] Remisol Consent for Treatmenton 06-26 Consent for Treatment [id number] Normal [facility] Creatinineon 07-18-2022 Creatinine [Mass/Vol] 0.8 mg/dL Normal 0.5-1.3 [facility] Comment on above: Performed By: #### 2 250766, 4758185, 9048994, 5725847, 3400250, 79356087 ####[facility] [address] [place] [address] Glucoseon 07-18-2022 Glucose [Mass/Vol] 93 mg/dL Normal 55-199 [facility] Comment on above: Performed By: #### 2 175479, 2514467, 0290232, 2272354, 1632981, 62137110 ####[facility] [address] [place] [address] HEMATOLOGYOrdered By: Helen Chowdhury on 07-18-2022 Erythrocyte distribution width (RBC) [Ratio] 16.6 % High 10.9 - 14.2 % [facility] HemeAutoSS Hematocrit (Bld) [Volume fraction] 29.8 % [...] 5.0 E9/L Normal 4.0 - 11.0 E9/L FT HemeAutoSS Lyteson 07-18-2022 Anion gap [Moles/Vol] 9 mmol/L Normal 6-16 [facility] Comment on above: Performed By: #### 2 752456, 3470330, 2074152, 5231813, 6513680, 42836552 ####[facility] [address] [place] [address] Chloride [Moles/Vol] 101 mmol/L Normal 101-111 [facility] Comment on above: Performed By: #### 2 087442, 1881159, 0375431, 7523273, 7122590, 00560746 ####[facility] [address] [place] [address] CO2 [Moles/Vol] 30 mmol/L Normal 21-[address] [facility] Comment on above: Performed By: #### 2 709274, 2778867, 3447777, 1801845, 8661993, 74457137 ####[facility] [address] [place] [address] Potassium [Moles/Vol] 3.7 mmol/L Normal 3.5-5.3 [facility] Comment on above: Performed By: #### 2 256039, 8155286, 8944571, 0705947, 6004959, 17025195 ####[facility] [address] [place] [address] Sodium [Moles/Vol] 136 mmol/L Normal 135-145 [facility] Comment on above: Performed By: #### 2 914670, 6051172, 4357303, 5995799, 2477393, 61353437 ####[facility] [address] [place] [address] XR Chest 2 Viewson 3 XR Chest [...] mGy = na DAP = na Normal [facility] eGFRon 07-18-2022 GFR/1.73 sq M.predicted among blacks MDRD (S/P/Bld) [Vol rate/Area] mL/min/{1.73_m2} Normal >=59 [facility] Comment on above: Order Comment: Order added by Discern Expert. Result Comment: eGFR is race adjusted. AA=. Performed By: #### 2 039191, 7818415, 2634305, 0815610, 8356693, 58065712 ####[facility] [address] [place] [address] GFR/1.73 sq M.predicted among non-blacks MDRD (S/P/Bld) [Vol rate/Area] mL/min/{1.73_m2} Normal >=59 [facility] Comment on above: Order Comment: Order added by Discern Expert. Result Comment: [employer] heidi kidney disease could be indicated at eGFR's of less than 60 mL/min/1.73m2. Kidney failure is indicated at less than 15 mL/min/1.73m2. Performed By: #### 2 648776, 7801498, 2527249, 3124473, 5263176, 69746394 ####[facility] [address] [place] [address] Telephone Encounteron 2022 [employer] Hand Authentication Interface Message Text Patient called regarding a rash near her drain that is right by her breast. Gaudencio is triaging Ms. Victoria, Gaudencio has suggest for patient to go to Urgent care and or call her primary care doctor. Appt is Monday07/13/2022. Normal [facility] Telephone Encounteron 2022 C[employer] Hand Authentication Interface Message Text Situation: Pt called states she is unsure how to flush gall bladder tube since it was changed yesterday. Background: 07/05/22 Procedure: Cholecystogram with catheter exchange Assessment: See triage Recommendation: Contacted IR gas operations superintendent, Dr Hollis advised for pt to contact [...] No Protocols used: Post-Op Incision Symptoms and Nfhusxhej-S-KR Normal [facility] C[employer] Bander Hand Authentication Interface Message Text Sindy Ratliff Patient: Gerry Victoria [phone] Ms. Victoria has an appt w/ on 07/13/2022 at 2:45 pm. Pt complaining about severe pain last night, when she moved, it was an ache. She did not tell me where the pain was coming from, when I asked her. She stated that today she feels better, but she was concerned about the pain she experienced last night 07/05/2022. Normal [facility] RF Biliary ducts Views W con trast via existing catheteron 07-05-2022 Mracella Fernando MD - 07/05/2022 EXAMINATION: XA CHOLANGIOGRAM [...] successful exchange of drainage catheter. MACRO: None [facility] Rad[facility] Study observation (narrative) [facility] Telephone Encounteron 2022 Cig[employer] Bander Hand Authentication Interface Message Text Patient returned clinic call. Informed of message per notes below. Patient verbalized understanding and voiced no further questions. Normal [facility] C[employer] Hand Authentication Interface Message Text would like Ms. [...] the appt date and time. Normal [facility] Office Visit (Cardiology)on 06-30-2022 Follow-up visit Diagnoses/Problems Assessed Palpitation (785.1) (R00.2) Essential hypertension, benign (401.1) (I10) Hyperlipidemia (272.4) (E78.5) Hypothyroid (244.9) (E03.9) Class 1 obesity with body mass index (BMI) of 31.0 to 31.9 in adult (278.00,V85.31) (E66.9,Z68.31) Former smoker (V15.82) (Z87.891) 2009 Drug rash (693.0) (L27.0) Type 2 myocardial [...] mg as directed otc Retrieve echo from [facility] Follow up in 3 months The provider reviewed the following test(s) and result(s) with the patient: ECG Chief Complaint GERRY VICTORIA is being seen for a consultation for atrial flutter and palpitations. F/u heart cath done in [facility]. History of Present Illness Patient is here for cardiovascular evaluation following recent hospitalization for what appeared to be acute cholecystitis. Records were retrieved and reviewed. Patient presented to [facility] with symptoms of abdominal pain and was diagnosed with what appeared to be gallbladder disease and peritonitis. She was transferred to [facility] where she underwent work-up. 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 She reported [...] The patient to keep her appointment with [facility] surgery for upcoming procedure of cholecystectomy and gallbladder drainage removal 5. I advised the patient she can use some ztmi-bro-rqodsym Claritin to address her what appeared to [...] 1 CA (more content not included)... Normal [employer] Tobacco Screening.on 023 Adult depression screening assessment No [facility] k 600 DO Work Phone: Fall risk assessment a) No falls within the last year [facility] k 600 DO Work Phone: Tobacco use status [facility] b) No [facility] k 600 DO Work Phone: Telephone Encounteron 2022 [employer] Hand Authentication Interface Message Text Pt called c/o sx of poor leg circulation,and Gaudencio spoke to her to triage the patient. Normal [facility] Addendum Noteon 06-18-2022 [employer] Hand Authentication Interface Message Text Addended by: NIKITA HEIN on: 06/18/2022 03:47 PM Modules accepted: Orders, Level of Service Normal [facility] Telephone Encounteron 2022 C[employer] Hand Authentication Interface Message Text Sophy transferred phone call to me, when the patient and I started talk I realized it was the patient I had Sophy working on since Dr. Hein seen her in clinic on [facility]. Sophy said she spoke to patient yesterday, so I just told her what Sophy told me that Dr. Hein will handle the Rx to have the scan done out where she lives and that Sophy will get it to her in the mail by Monday Normal [facility] Telephone Encounteron 2022 [employer] Hand Authentication Interface Message Text Sindy Morales, Patient: Gerry Victoria [phone] Ms. Victoria had a visit with Dr. Conley on Monday06/15/2022, seen by Dr. Hein in yesterday's clinic. Questions: Ultrasound order was placed for Ms. Victoria, do she have to come her to [facility] to have the ultrasound, or can she have the ultrasound done in [place]? (there is not a [facility] in [place]) Medication refill of Ropinirole 2mg 1-tab QD was not received by her pharmacy, can you call in the prescription to my pharmacy at ([facility] ) [phone]?. I am waiting for Carmen, or and or Dr. Conley to respond. Sophy Knowles was told that Dr. Hein was out of town and that she will receive the prescription in the mail. I will call the patient to find out what hospitals she will be going to in [place] [phone] fax:[phone] Gaudencio spoke to her about the prescription and to contact her pharmacy about the ropinirole 2 mg to [facility]. Addendum: IR procedure, Gaudencio will follow-up with [facility] to see if they can do the IR procedure, we will submit or fax orders at that time. Normal [facility] CBC panel Auto (Bld)on 06-15 Erythrocyte [...] [#/Vol] 262 10*3/uL 150 - 400 K/uL [facility] RBC (Bld) [#/Vol] 3.26 10*6/uL Low [facility] WBC (Bld) [#/Vol] 6.2 10*3/uL 4.5 - 11.5 K/uL [facility] COMPLETE BLOOD COUNTon 06-15 Erythrocyte distribution width (RBC) [Ratio] 15.0 % High 11.5-14.5 [facility] Comment on above: Performed By: #### 8 2948 #### NURSING GLUCOSE PROGRAM [address] [place], [address] Hematocrit (Bld) [Volume fraction] 26.4 % Low 36.0-46.0 [facility] Comment on above: Performed By: #### 8 2948 #### NURSING GLUCOSE PROGRAM [address] [place], [address] Hemoglobin (Bld) [Mass/Vol] 9.0 g/dL Low 12.0-15.0 [facility] Comment on above: Performed By: #### 8 2948 #### NURSING GLUCOSE PROGRAM [address] [place], [address] MCH (RBC) [Entitic mass] 27.6 pg Normal 26.0-34.0 [facility] Comment on above: Performed By: #### 8 2948 #### NURSING GLUCOSE PROGRAM [address] [place] [address], [address] MCHC (RBC) [Mass/Vol] 34.1 g/dL Normal 32.0-35.9 [facility] Comment on above: Performed By: #### 8 2948 #### NURSING GLUCOSE PROGRAM [address] [place], [address] MCV (RBC) [Entitic vol] 81 fL Normal 80-100 [facility] Comment on above: Performed By: #### 8 2948 #### NURSING GLUCOSE PROGRAM [address] [place] [address], [address] Platelet mean volume (Bld) [Entitic vol] 7.8 fL Normal 7.5-11.2 [facility] Comment on above: Performed By: #### 8 2948 #### NURSING GLUCOSE PROGRAM [address] [place], [address] Platelets (Bld) [#/Vol] 262 10*3/uL Normal 150-400 [facility] Comment on above: Performed By: #### 8 2948 #### NURSING GLUCOSE PROGRAM [address] [place], [address] RBC (Bld) [#/Vol] 3.26 10*6/uL Low 4.00-5.20 [facility] Comment on above: Performed By: #### 8 2948 #### NURSING GLUCOSE PROGRAM [address] [place] [address] [place], [address] WBC (Bld) [#/Vol] 6.2 10*3/uL Normal 4.5-11.5 [facility] Comment on above: Performed By: #### 8 2948 #### NURSING GLUCOSE PROGRAM [address] [place], [address] PROTHROMBIN TIME AND INRon 0 06-15-2022 INR Coag (PPP) [Relative time] 1.08 {INR} Normal 0.90-1.10 [facility] Comment on above: Performed By: #### 8 2948 #### NURSING GLUCOSE PROGRAM [address] [place], [address] PT Coag (PPP) [Time] 12.2 s Normal 9.7-12.9 [facility] Comment on above: Performed By: #### 8 2948 #### NURSING GLUCOSE PROGRAM [address] [place], [address] INR Coag (PPP) [Relative time] 1.08 {INR} 0.90 - 1.10 [facility] Interpretation and review of laboratory results Normal [facility] PT Coag (PPP) [Time] 12.2 s [facility] Telephone Encounteron 2022 Cig[employer]ander Hand Authentication Interface Message Text Situation: pt is [...] Not assessed Protocols used: Post-Op Symptoms and Zumgeexjy-W-VD, Breathing Pqszjupszy-X-SH Normal [facility] BASIC METABOLIC PANELon 03-0 Anion gap [Moles/Vol] 15 mmol/L Normal 10-20 [facility] Comment on above: Performed By: #### C H8, HEPATIC #### [facility] [address] [place] [address], [address] Calcium [Mass/Vol] 8.4 mg/dL Normal 8.4-10.4 [facility] Comment on above: Performed By: #### C H8, HEPATIC #### [facility] [address] [place] [address], [address] Chloride [Moles/Vol] 100 mmol/L Normal 97-111 [facility] Comment on above: Performed By: #### C H8, HEPATIC #### [facility] [address] [place] [address], CO2 [Moles/Vol] 27 mmol/L Normal 21-30 [facility] Comment on above: Performed By: #### C H8, HEPATIC #### [facility] [address] [place] [address], Creatinine [Mass/Vol] 0.76 mg/dL Normal 0.50-1.10 [facility] Comment on above: Performed By: #### C H8, HEPATIC #### [facility] [address] [place] [address], ESTIMATED GFR (CKD-EPI) 85 mL/min/1.73sqm Normal >=60 [facility] Comment on above: Result Comment: 2020 CKD EPI Equation using Creatinine without Race Comment: Estimated glomerular filtration rate (eGFR) is calculated without a race coefficient. Values should be interpreted in the context of the patient's full clinical presentation. Reference: 1. Leonardo C, Batiff M, Ilya DC, et al.. A Unifying Approach for GFR Estimation: Recommendations of the NKF-ASN Task Force on Reassessing the Inclusion of Race in Diagnosing Kidney Disease. [place] Journal of Kidney Diseases 2021;79(2):268-88.e1. 2. N Engl J Med 2020 Vol. 385 Issue 19 Pages 1845-2301 Performed By: #### C H8, HEPATIC #### [facility] [address] [place] [address], Glucose [Mass/Vol] 94 mg/dL Normal 80-116 [facility] Comment on above: Performed By: #### C H8, HEPATIC #### [facility] [address] [place] [address], Potassium [Moles/Vol] 3.5 mmol/L Normal 3.3-5.3 [facility] Comment on above: Performed By: #### C H8, HEPATIC #### [facility] [address] [place] [address], Sodium [Moles/Vol] 138 mmol/L Normal 135-148 [facility] Comment on above: Performed By: #### Meenu Mccormick, HEPATIC #### S [facility] [address] [place] [address], Urea nitrogen [Mass/Vol] 6 mg/dL Low 8-22 [facility] Comment on above: Performed By: #### Meenu Mccormick, HEPATIC #### [facility] [address] [place] [address], COMPLETE BLOOD COUNTon 05-25 Erythrocyte distribution width (RBC) [Ratio] 15.2 % High 11.5-14.5 [facility] Comment on above: Performed By: #### Meenu Mccormick, HEPATIC #### [facility] [address] [place] [address], Hematocrit (Bld) [Volume fraction] 34.5 % Low 36.0-46.0 [facility] Comment on above: Performed By: #### Meenu Mccormick, HEPATIC #### [facility] [address] [place] [address], Hemoglobin (Bld) [Mass/Vol] 12.0 g/dL Normal 12.0-15.0 [facility] Comment on above: Performed By: #### Meenu Mccormick, HEPATIC #### [facility] [address] [place] [address], MCH (RBC) [Entitic mass] 28.6 pg Normal 26.0-34.0 [facility] Comment on above: Performed By: #### Meenu Mccormick, HEPATIC #### [facility] [address] [place] [address], MCHC (RBC) [Mass/Vol] 34.8 g/dL Normal 32.0-35.9 [facility] Comment on above: Performed By: #### Meenu Mccormick, HEPATIC #### S [facility] [address] [place] [address], MCV (RBC) [Entitic vol] 82 fL Normal 80-100 [facility] Comment on above: Performed By: #### Meenu Mccormick, HEPATIC #### S [facility] [address] [place] [address], Platelet mean volume (Bld) [Entitic vol] 7.7 fL Normal 7.5-11.2 [facility] Comment on above: Performed By: #### C H8, HEPATIC #### [facility] [address] [place], [place], Platelets (Bld) [#/Vol] 348 10*3/uL Normal 150-400 [facility] Comment on above: Performed By: #### C H8, HEPATIC #### [facility] [address] [place], [place], RBC (Bld) [#/Vol] 4.19 10*6/uL Normal 4.00-5.20 [facility] Comment on above: Performed By: #### C H8, HEPATIC #### [facility] [address] [place], [place], WBC (Bld) [#/Vol] 8.7 10*3/uL Normal 4.5-11.5 [facility] Comment on above: Performed By: #### C H8, HEPATIC #### [facility] [address] [place], [place], Care Plan Noteon 05-25-2022 [employer] Hand Authentication Interface Message Text Problem: Routine Care: [...] H8, HEPATIC #### [facility] [address] [place], [place], Glucose [Mass/Vol] 92 mg/dL Normal 80-116 [facility] Comment on above: Performed By: #### 8 2948 #### NURSING GLUCOSE PROGRAM [address] [place], [address] Glucose [Mass/Vol] 93 mg/dL Normal 80-116 [facility] Comment on above: Performed By: #### C H8, HEPATIC #### [facility] [address] [place], [place], MAGNESIUMon 05-25-2022 Magnesium [Mass/Vol] 2.0 mg/dL Normal 1.6-2.8 [facility] Comment on above: Performed By: #### C H8, HEPATIC #### [facility] [address] [place] [address], Progress Noteson 05-25-2022 [employer] Hand Authentication Interface Message Text Pt is rec to dc home with no homegoing needs. Pt reportedly has sister who can provide PRN assistance. Medical team to please notify SW if any SW or DC concerns arise. Franky CHOWDHURYA,DUCT LAYER SUPERVISOR Normal [facility] [employer] Hand Authentication Interface Message Text Accuchecks not uploading into [facility]- are as follows 2000- glucose 94 0000- glucose 93 0400- glucose 93 Normal [facility] [employer] Hand Authentication Interface Message Text Pt emptied and flushed drain with RN supervision. No further questions at this time, will; reinforce in the AM. 0630 Pt flushed and emptied drain w/ RN supervision. No further questions at this time, written instructions for both provided to pt. Normal [facility] BASIC METABOLIC PANELon 02-2 Anion gap [Moles/Vol] 18 mmol/L Normal 10-20 [facility] Comment on above: Performed By: #### H STRP #### [facility] [address] [place], [place], Calcium [Mass/Vol] 8.6 mg/dL Normal 8.4-10.4 [facility] Comment on above: Performed By: #### H STRP #### [facility] [address] [place], [place], Chloride [Moles/Vol] 100 mmol/L Normal 97-111 [facility] Comment on above: Performed By: #### H STRP #### [facility] [address] [place], [place], CO2 [Moles/Vol] 24 mmol/L Normal 21-30 [facility] Comment on above: Performed By: #### H STRP #### [facility] [address] [place], [place], Creatinine [Mass/Vol] 0.66 mg/dL Normal 0.50-1.10 [facility] Comment on above: Performed By: #### H STRP #### S PATHOLOGY LABORATORY [address], [place], ESTIMATED GFR (CKD-EPI) 95 mL/min/1.73sqm Normal >=60 [facility] Comment on above: Result Comment: 2020 [...] Inclusion of Race in Diagnosing Kidney Disease. [place] Journal of Kidney Diseases 202;79(2):268-88.e1. 2. N Engl J Med 1 Vol. 385 Issue 19 Pages 5390-6310 Performed By: #### H STRP #### [facility] [address], [place], Glucose [Mass/Vol] 88 mg/dL Normal 80-116 [facility] Comment on above: Performed By: #### H STRP #### [facility] [address] [place] [address], Potassium [Moles/Vol] 3.5 mmol/L Normal 3.3-5.3 [facility] Comment on above: Performed By: #### H STRP #### S PATHOLOGY LABORATORY [address] [place] [address], Sodium [Moles/Vol] 138 mmol/L Normal 135-148 [facility] Comment on above: Performed By: #### H STRP #### S [facility] LABORATORY [address], [place], Urea nitrogen [Mass/Vol] 5 mg/dL Low 8-22 [facility] Comment on above: Performed By: #### H STRP #### S [facility]Y LABORATORY [address] [place] [address], COMPLETE BLOOD COUNTon 05-24 Erythrocyte distribution width (RBC) [Ratio] 15.1 % High 11.5-14.5 [facility] Comment on above: Performed By: #### C BC ####[facility] PATHOLOGY [id number] [place], [place], Hematocrit (Bld) [Volume fraction] 35.5 % Low 36.0-46.0 [facility] Comment on above: Performed By: #### C BC ####[facility] PATHOLOGY [id number] [place], [place], Hemoglobin (Bld) [Mass/Vol] 11.8 g/dL Low 12.0-15.0 [facility] Comment on above: Performed By: #### C BC ####[facility] PATHOLOGY [id number] [place], [place], MCH (RBC) [Entitic mass] 27.2 pg Normal 26.0-34.0 [facility] Comment on above: Performed By: #### C BC ####S PATHOLOGY [id number] [place], MCHC (RBC) [Mass/Vol] 33.2 g/dL Normal 32.0-35.9 [facility] Comment on above: Performed By: #### C BC ####S PATHOLOGY [id number] [place], MCV (RBC) [Entitic vol] 82 fL Normal 80-100 [facility] Comment on above: Performed By: #### C BC ####[facility] PATHOLOGY [id number] [place], Platelet mean volume (Bld) [Entitic vol] 7.6 fL Normal 7.5-11.2 [facility] Comment on above: Performed By: #### C BC ####[facility] PATHOLOGY [id number] [place], Platelets (Bld) [#/Vol] 375 10*3/uL Normal 150-400 [facility] Comment on above: Performed By: #### C BC ####[facility] PATHOLOGY [id number] [place], RBC (Bld) [#/Vol] 4.32 10*6/uL Normal 4.00-5.20 [facility] Comment on above: Performed By: #### C BC ####[facility] PATHOLOGY [id number] [place], WBC (Bld) [#/Vol] 9.0 10*3/uL Normal 4.5-11.5 [facility] Comment on above: Performed By: #### C BC ####[facility] PATHOLOGY [id number] [place], [place], Care Plan Noteon 05-24-2022 Cig[employer] Bander Hand Authentication Interface Message Text Problem: Routine Care: [...] Performed By: #### 8 2948 ####NURSING GLUCOSE [id number] [place], [address] Glucose [Mass/Vol] 76 mg/dL Low 80-116 [facility] Comment on above: Performed By: #### H STRP #### [facility] [address] [place] [address], Glucose [Mass/Vol] 84 mg/dL Normal 80-116 [facility] Comment on above: Performed By: #### 8 2948 #### NURSING GLUCOSE PROGRAM [address] [place], [address] Glucose [Mass/Vol] 95 mg/dL Normal 80-116 [facility] Comment on above: Performed By: #### C H8, HEPATIC #### [facility] [address] [place] [address], Glucose [Mass/Vol] 93 mg/dL Normal 80-116 [facility] Comment on above: Performed By: #### C H8, HEPATIC #### [facility] [address] [place] [address], Glucose [Mass/Vol] 97 mg/dL Normal 80-116 [facility] Comment on above: Performed By: #### H STRP #### [facility] [address] [place] [address], MAGNESIUMon 05-24-2022 Magnesium [Mass/Vol] 1.9 mg/dL Normal 1.6-2.8 [facility] Comment on above: Performed By: #### H STRP #### [facility] [address] [place], [address] Progress Noteson 05-24-2022 Cigar Bander Hand Authentication Interface Message Text [facility] DIVISION OF ACUTE CARE SURGERY ---- GENERAL INFORMATION --- EMERGENCY GENERAL SURGERY NOTE Patient Name: Grery Victoria Admission Date: 05/16/2022 Patient seen and examined on 05/24/2022 -- INTERVAL HISTORY/EVENTS Background Narrative: Gerry Victoria is a 66 year old female with PMH of hypertension, RLS, GERD, and h/o paroxysmal SVT who presented to critical access hospital with epigastric pain with nausea and vomiting. Patient describes onset of pain on prior day that has increased since then. Shortly after onset of pain, patient experienced nausea and persistent vomiting, now unable to tolerate PO intake. Denies fevers, chills. She presented to [facility] where EKG demonstrated 'hyperacute T waves' in multiple leads without evidence of STEMI. Troponin originally 139, then 381 on repeat. CTA was performed and did not reveal dissection or PE. CT did demonstrate acute inflammation of the gallbladder with a stone at the neck. A central line was placed for resuscitation purposes and the patient was transferred to [facility] for further evaluation. Prior to transfer, lab work without leukocytosis (10.7) and LFTs/Lipase without abnormality. ACS consulted upon arrival to [facility] for cholecystitis. She was admitted to the SDU for telemetry under EGS but transferred to [facility] on 05/20/22 Hospital Course/Procedures: 05/16/2022: Transferred from [facility] ED with cholecystitis, up-trending troponin, and unclear EKG findings. Up-trending leukocytosis, down-trending troponin by PM. Cardiology following. Zosyn started. 05/17/2022: rCT with worsening gallbladder inflammation /o free air or rupture. Percutaneous cholecystotomy tube placement with IR. 05/19/2022: Bilious emesis, NGT placed 05/20/2022: Transferred to [facility] 05/21/2022:To stop zosyn today day 06/2805/22/2022: YANN, ongoing bilious NGT output 05/23/2022: [facility] with mild non-obstructive diffuse coronary artery disease. NGT placed to gravity. Events in last 24 hours: NAEOn. [facility] completed yesterday with mild non-obstructive diffuse [...] - Seen resting supine in bed in [facility] -Neurologic - No focal deficits, clear [...] Gap Glu BUN Cr Ca Mg PO4 05/24/2235 1.9 05/24/2235 138 3.5 100 24 18 88 5 0.66 8.6 Arterial Blood Gases None IMAGING RESULTS - (PERSONALLY REVIEWED) No new imaging over last 24 hours ----- DIAGNOSIS AND PLAN -------- Diagnoses: Acute Cholecystitis Acute abdominal pain Type II [place] Atypical takatsubo PMHx: GERD, HTN, HLD, spinal [...] course of IV Zosyn 05/16/22 - 05/21/2022. [facility] completed 05/23 showing no obstructive disease. Plan 1. Neurologic - Tylenol q4 PRN, oxycodone q4 PRN f (more content not included)... Normal [facility] Cigar Bander Hand Authentication Interface Message Text Accuchecks not uploading into [facility]- are as follows for shift foreman 05/23 1900- 0730: 2000- glucose 95 0000- glucose 97 0400- glucose 93 Normal [facility] BASIC METABOLIC PANELon - Anion gap [Moles/Vol] 12 mmol/L Normal 10-20 [facility] Comment on above: Performed By: #### H STRP #### [facility] [address] [place] [address], Calcium [Mass/Vol] 8.4 mg/dL Normal 8.4-10.4 [facility] Comment on above: Performed By: #### H STRP #### [facility] [address] [place] [address], Chloride [Moles/Vol] 100 mmol/L Normal 97-111 [facility] Comment on above: Performed By: #### H STRP #### [facility] [address] [place] [address], CO2 [Moles/Vol] 31 mmol/L High 21-30 [facility] Comment on above: Performed By: #### H STRP #### [facility] [address] [place] [address], Creatinine [Mass/Vol] 0.65 mg/dL Normal 0.50-1.10 [facility] Comment on above: Performed By: #### H STRP #### [facility] [address] [place] [address], ESTIMATED GFR (CKD-EPI) 96 mL/min/1.73sqm Normal >=60 [facility] Comment on above: Result Comment: 2020 [...] Inclusion of Race in Diagnosing Kidney Disease. [place] Journal of Kidney Diseases 202;79(2):268-88.e1. 2. N Engl J Med 1 Vol. 385 Issue 19 Pages 2467-5296 Performed By: #### H STRP #### [facility] [address], [place], Glucose [Mass/Vol] 92 mg/dL Normal 80-116 [facility] Comment on above: Performed By: #### H STRP #### S PATHOLOGY LABORATORY [address], [place], Potassium [Moles/Vol] 3.5 mmol/L Normal 3.3-5.3 [facility] Comment on above: Performed By: #### H STRP #### S PATHOLOGY LABORATORY [address], [place], Sodium [Moles/Vol] 139 mmol/L Normal 135-148 [facility] Comment on above: Performed By: #### H STRP #### S PATHOLOGY LABORATORY [address], [place], Urea nitrogen [Mass/Vol] 4 mg/dL Low 8-22 [facility] Comment on above: Performed By: #### H STRP #### S PATHOLOGY LABORATORY [address], [place], COMPLETE BLOOD COUNTon 05-23 Erythrocyte distribution width (RBC) [Ratio] 14.9 % High 11.5-14.5 [facility] Comment on above: Performed By: #### C BC ####S PATHOLOGY [id number] [place], Hematocrit (Bld) [Volume fraction] 33.2 % Low 36.0-46.0 [facility] Comment on above: Performed By: #### C BC ####S PATHOLOGY [id number] [place], Hemoglobin (Bld) [Mass/Vol] 11.1 g/dL Low 12.0-15.0 [facility] Comment on above: Performed By: #### C BC ####S PATHOLOGY [id number] [place], MCH (RBC) [Entitic mass] 27.4 pg Normal 26.0-34.0 [facility] Comment on above: Performed By: #### C BC ####S PATHOLOGY [id number] [place], MCHC (RBC) [Mass/Vol] 33.4 g/dL Normal 32.0-35.9 [facility] Comment on above: Performed By: #### C BC ####[facility] [id number] [place], MCV (RBC) [Entitic vol] 82 fL Normal 80-100 [facility] Comment on above: Performed By: #### C BC ####[facility] [id number] [place], Platelet mean volume (Bld) [Entitic vol] 7.4 fL Low 7.5-11.2 [facility] Comment on above: Performed By: #### C BC ####S PATHOLOGY [id number] [place], Platelets (Bld) [#/Vol] 313 10*3/uL Normal 150-400 [facility] Comment on above: Performed By: #### C BC ####S PATHOLOGY [id number] [place], RBC (Bld) [#/Vol] 4.04 10*6/uL Normal 4.00-5.20 [facility] Comment on above: Performed By: #### C BC ####S PATHOLOGY [id number] [place], WBC (Bld) [#/Vol] 7.1 10*3/uL Normal 4.5-11.5 [facility] Comment on above: Performed By: #### C BC ####[facility] [id number] [place], [place], Care Plan Noteon 05-23-2022 Cigar Bander Hand Authentication Interface Message Text Problem: Routine Care: [...] demand and imbalance Outcome: Progressing Normal [facility] Consultson 05-23-2022 Cigar Bander Hand Authentication Interface Message Text PHYSICAL THERAPY Attempt at Tx Session this PM is unsuccessful as Patient is off floor in EP for Coronary angiograms w/ poss intervention Will follow up Tawny Peñaloza, PT, MPT (B) [phone] Normal [facility] Cigar Bander Hand Authentication Interface Message Text Initial Adult Inpatient [...] 92 4 0.65 8.4 05/22/22 0032 2.0 05/22/2231 138 3.6 98 31 13 91 5 0.76 8.7 05/21/22123 1.9 05/21/22123 138 3.2 100 29 12 107 4 0.65 8.1 CBC (last 3 years, up to 5 values) (Last 5 results in the past 3 years) WBC RBC Hgb Hct MCV RDW Plt 02/27/23 0136 7.1 4.04 11.1 33.2 82 14.9 [...] none Hair/Nails/Skin: intact Eyes/Nose/Mouth: NGT Estimated needs: 6531-1985 kcal/d 25-30 kcal/kg 80-105 g pro/d 1-1.3 g pro/kg Assessment: 66 year old female with PMH of hypertension, RLS, GERD, and h/o paroxysmal SVT who presented to critical access hospital with epigastric pain with nausea and vomiting. Patient describes onset of pain on prior day that has increased since then. Shortly after onset of pain, patient experienced nausea and persistent vomiting, now unable to tolerate PO intake. Denies fevers, chills. She presented to [facility] where EKG demonstrated 'hyperacute T waves' in multiple leads without evidence of STEMI. Troponin originally 139, then 381 on repeat. CTA was performed and did not reveal dissection or PE. CT did demonstrate acute inflammation of the gallbladder with a stone at the neck. A central line was placed for resuscitation purposes and the patient was transferred to [facility] for further evaluation. Prior to transfer, lab work without leukocytosis (10.7) and LFTs/Lipase without abnormality. ACS consulted upon arrival to [facility] for cholecystitis. She was admitted to the SDU for telemetry under EGS but transferred to [facility] on 05/20/22 Hospital Course/Procedures: 05/16/2022: Transferred from [facility] ED with cholecystitis, up-trending troponin, and unclear EKG findings. Up-trending leukocytosis, down-trending troponin by PM. Cardiology following. Zosyn started. 05/17/2022: rCT with worsening gallbladder inflammation /o free air or rupture. Percutaneous cholecystotomy tube placement with IR. 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 Nutrition Screening Reason for visit: 7 to [...] Will continue to follow, May Sanchez, Diet Roofing Machine Operator Pager [phone] Normal [facility] GLUCOSE, FINGERSTICK-IN OFFI CEon 05-23-2022 Glucose [Mass/Vol] 95 mg/dL Normal 80-116 [facility] Comment on above: Performed By: #### H STRP #### [facility] [address] [place] [address], [address] Glucose [Mass/Vol] 102 mg/dL Normal 80-116 [facility] Comment on above: Performed By: #### C H8, HEPATIC #### [facility] [address] [place], [address] Glucose [Mass/Vol] 105 mg/dL Normal 80-116 [facility] Comment on above: Performed By: #### 8 2948 #### NURSING GLUCOSE PROGRAM [address] [place] [address], [address] Glucose [Mass/Vol] 89 mg/dL Normal 80-116 [facility] Comment on above: Performed By: #### H STRP #### [facility] [address] [place] [address], Glucose [Mass/Vol] 92 mg/dL Normal 80-116 [facility] Comment on above: Performed By: #### 8 2948 #### NURSING GLUCOSE PROGRAM [address] [place] [address], [address] MAGNESIUMon 05-23-2022 Magnesium [Mass/Vol] 1.9 mg/dL Normal 1.6-2.8 [facility] Comment on above: Performed By: #### H STRP #### [facility] [address] [place] [address], Procedureson 05-23-2022 Cigar Bander Hand Authentication Interface Message Text Invasive Cardiology Report Demographics Patient name RYLIE GARRETT Height 155cm Patient # [id number] Weight 79.8kg BSA 1.79m2 Date of 1955 [...] KIT CARDIAC CATH PACK CA/3, Room Charge TRIM MACHINE OPERATOR, [facility] InQwire .035 x 150cm 3mmJ, Glidesheath Slender 6Fr., 6F Dellrose Radial 4.0 110cm, Omnipaque 350 100cc and TR Band. Contrast material: 50 ml Omnipaque 350. Fluoroscopy time: PCI: 2:06 minutes. Total: 2:06 minutes. IABP: No IABP Procedure Description In a sterile fashion, after infiltration with 2% lidocaine, a 6 Tuvaluan arterial sheath was placed through a right radial artery puncture. A 6 Tu[place]uan Dellrose 4.0 radial catheter was inserted and passed retrograde into the ascending aorta and left ventricle where pressures were recorded. After pressure measurements were recorded, the left and right coronary arteries were selectively opacified and Coronary angiograms were performed in multiple projections using a 6 [place] Dellrose 4.0 radial catheter. At the end of the procedure, right radial arterial sheath was removed and hemostasis was obtained using a TR band. Moderate sedation provided by the attending physician performing the procedure. The moderate sedation intraservice time was 12 minutes. Normal [facility] Progress Noteson 05-23-2022 Cigar Bander Hand Authentication Interface Message Text C showed no obstructive coronary artery disease. Medical management with aspirin 81 mg daily, losartan 25 mg daily and metoprolol XL 12.5 mg with dose adjustment as tolerated. She will need outpatient follow up with cardiology Cards team signing off. Please feel free to contact in case of any qs. Normal [facility] Iron[employer] Interface Message Text PT recs anticipate pt to be appropriate for home-going. Pt reportedly has sister who can provide PRN assistance. Medical team to please notify SW if any SW or DC concerns arise. Franky BATEMAN,DUCT LAYER SUPERVISOR Normal [facility] Message Text [facility] DIVISION OF ACUTE CARE SURGERY ---- GENERAL INFORMATION --- EMERGENCY GENERAL SURGERY NOTE Patient Name: Gerry Victoria Admission Date: 05/16/2022 Patient seen and examined on 05/23/2022 -- INTERVAL HISTORY/EVENTS Background Narrative: Gerry Victoria is a 66 year old female with PMH of hypertension, RLS, GERD, and h/o paroxysmal SVT who presented to critical access hospital with epigastric pain with nausea and vomiting. Patient describes onset of pain on prior day that has increased since then. Shortly after onset of pain, patient experienced nausea and persistent vomiting, now unable to tolerate PO intake. Denies fevers, chills. She presented to [facility] where EKG demonstrated 'hyperacute T waves' in multiple leads without evidence of STEMI. Troponin originally 139, then 381 on repeat. CTA was performed and did not reveal dissection or PE. CT did demonstrate acute inflammation of the gallbladder with a stone at the neck. A central line was placed for resuscitation purposes and the patient was transferred to [facility] for further evaluation. Prior to transfer, lab work without leukocytosis (10.7) and LFTs/Lipase without abnormality. ACS consulted upon arrival to [facility] for cholecystitis. She was admitted to the SDU for telemetry under EGS but transferred to [facility] on 05/20/22 Hospital Course/Procedures: 05/16/2022: Transferred from [facility] ED with cholecystitis, up-trending troponin, and unclear EKG findings. Up-trending leukocytosis, down-trending troponin by PM. Cardiology following. Zosyn started. 05/17/2022: rCT with worsening gallbladder inflammation /o free air or rupture. Percutaneous cholecystotomy tube placement with IR. 05/19/2022: Bilious emesis, NGT placed 05/20/2022: Transferred to [facility] 05/21/2022:To stop zosyn today day 4/4 Events [...] Seen resting in bed in SICU in [facility]- I J line in place -Neurologic [...] Acute Cholecystitis Acute abdominal pain Type II [place] Atypical takatsubo PMHx: GERD, HTN, HLD, spinal [...] appropr (more content not included)... Normal [facility] TYPE AND SCREENon 05-23-2022 ABO and Rh group Nom (Bld) Blood group A Rh(D) positive Normal [facility] Comment on above: Performed By: #### H STRP #### S PATHOLOGY LABORATORY [address] [place] [address], ABSC INT Negative Normal [facility] Comment on above: Performed By: #### H STRP #### S PATHOLOGY LABORATORY [address] [place] [address], BASIC METABOLIC PANELon 04-28 Anion gap [Moles/Vol] 13 mmol/L Normal 10-20 [facility] Comment on above: Performed By: #### 8 2948 #### NURSING GLUCOSE PROGRAM [address] [place] [address], [address] Calcium [Mass/Vol] 8.7 mg/dL Normal 8.4-10.4 [facility] Comment on above: Performed By: #### 8 2948 #### NURSING GLUCOSE PROGRAM [address] [place] [address], [address] Chloride [Moles/Vol] 98 mmol/L Normal 97-111 [facility] Comment on above: Performed By: #### 8 2948 #### NURSING GLUCOSE PROGRAM [address] [place], [address] CO2 [Moles/Vol] 31 mmol/L High 21-30 [facility] Comment on above: Performed By: #### 8 2948 #### NURSING GLUCOSE PROGRAM [address] [place], [address] Creatinine [Mass/Vol] 0.76 mg/dL Normal 0.50-1.10 [facility] Comment on above: Performed By: #### 8 2948 #### NURSING GLUCOSE PROGRAM [address] [place], [address] ESTIMATED GFR (CKD-EPI) 85 mL/min/1.73sqm Normal >=60 [...] Inclusion of Race in Diagnosing Kidney Disease. [place] Journal of Kidney Diseases 2021;79(2):268-88.e1. 2. N Engl J Med 1 Vol. 385 Issue 19 Pages 6485-9714 Performed By: #### 8 2948 #### NURSING GLUCOSE PROGRAM [address] [place], [address] Glucose [Mass/Vol] 91 mg/dL Normal 80-116 [facility] Comment on above: Performed By: #### 8 2948 #### NURSING GLUCOSE PROGRAM [address] [place], [address] Potassium [Moles/Vol] 3.6 mmol/L Normal 3.3-5.3 [facility] Comment on above: Performed By: #### 8 2948 #### NURSING GLUCOSE PROGRAM [address] [place], [address] Sodium [Moles/Vol] 138 mmol/L Normal 135-148 [facility] Comment on above: Performed By: #### 8 2948 #### NURSING GLUCOSE PROGRAM [address] [place], [address] Urea nitrogen [Mass/Vol] 5 mg/dL Low 8-22 [facility] Comment on above: Performed By: #### 8 2948 #### [facility] GLUCOSE PROGRAM [address] [place], [address] COMPLETE BLOOD COUNTon 05-22 Erythrocyte distribution width (RBC) [Ratio] 15.1 % High 11.5-14.5 [facility] Comment on above: Performed By: #### C BC ####[facility] PATHOLOGY [id number] [place], [place], Hematocrit (Bld) [Volume fraction] 34.3 % Low 36.0-46.0 [facility] Comment on above: Performed By: #### C BC ####[facility] PATHOLOGY [id number] [place], Hemoglobin (Bld) [Mass/Vol] 11.4 g/dL Low 12.0-15.0 [facility] Comment on above: Performed By: #### C BC ####[facility] PATHOLOGY [id number] [place], MCH (RBC) [Entitic mass] 27.4 pg Normal 26.0-34.0 [facility] Comment on above: Performed By: #### C BC ####[facility] PATHOLOGY [id number] [place], MCHC (RBC) [Mass/Vol] 33.4 g/dL Normal 32.0-35.9 [facility] Comment on above: Performed By: #### C BC ####[facility] PATHOLOGY [id number] [place], MCV (RBC) [Entitic vol] 82 fL Normal 80-100 [facility] Comment on above: Performed By: #### C BC ####[facility] PATHOLOGY [id number] [place], Platelet mean volume (Bld) [Entitic vol] 7.6 fL Normal 7.5-11.2 [facility] Comment on above: Performed By: #### C BC ####[facility] PATHOLOGY [id number] [place], Platelets (Bld) [#/Vol] 322 10*3/uL Normal 150-400 [facility] Comment on above: Performed By: #### C BC ####S PATHOLOGY [id number] [place], [place], RBC (Bld) [#/Vol] 4.17 10*6/uL Normal 4.00-5.20 [facility] Comment on above: Performed By: #### C BC ####S PATHOLOGY [id number] [place], [place], WBC (Bld) [#/Vol] 7.0 10*3/uL Normal 4.5-11.5 [facility] Comment on above: Performed By: #### C BC ####[facility] PATHOLOGY [id number] [place], [place], Care Plan Noteon 05-22-2022 [employer] Hand Authentication Interface Message Text Problem: Routine Care: [...] demand and imbalance Outcome: Progressing Normal [facility] GLUCOSE, FINGERSTICK-IN OFFI CEon 05-22-2022 Glucose [Mass/Vol] 78 mg/dL Low 80-116 [facility] Comment on above: Performed By: #### 8 2948 #### NURSING GLUCOSE PROGRAM [address] [place], [address] Glucose [Mass/Vol] 99 mg/dL Normal 80-116 [facility] Comment on above: Performed By: #### 8 2948 #### NURSING GLUCOSE PROGRAM [address] [place], [address] Glucose [Mass/Vol] 134 mg/dL High 80-116 [facility] Comment on above: Performed By: #### 8 2948 #### NURSING GLUCOSE PROGRAM [address] [place], [address] Glucose [Mass/Vol] 111 mg/dL Normal 80-116 [facility] Comment on above: Performed By: #### Reid Grullon, CH8 #### [facility] [address] [place] [address], Glucose [Mass/Vol] 103 mg/dL Normal 80-116 [facility] Comment on above: Performed By: #### Meenu Trammell8, HEPATIC #### [facility] [address] [place] [address], Glucose [Mass/Vol] 112 mg/dL Normal 80-116 [facility] Comment on above: Performed By: #### Meenu Trammell8, HEPATIC #### [facility] [address] [place] [address], MAGNESIUMon 05-22-2022 Magnesium [Mass/Vol] 2.0 mg/dL Normal 1.6-2.8 [facility] Comment on above: Performed By: #### 8 2948 #### NURSING GLUCOSE PROGRAM [address] [place], [address] Progress Noteson 05-22-2022 Cig[employer] Bander Hand Authentication Interface Message Text [facility] DIVISION OF ACUTE CARE SURGERY ---- GENERAL INFORMATION --- EMERGENCY GENERAL SURGERY NOTE Patient Name: Gerry Victoria Admission Date: 05/16/2022 Patient seen and examined on 05/22/2022 -- INTERVAL HISTORY/EVENTS Background Narrative: Gerry Victoria is a 66 year old female with PMH of hypertension, RLS, GERD, and h/o paroxysmal SVT who presented to critical access hospital with epigastric pain with nausea and vomiting. Patient describes onset of pain on prior day that has increased since then. Shortly after onset of pain, patient experienced nausea and persistent vomiting, now unable to tolerate PO intake. Denies fevers, chills. She presented to [facility] where EKG demonstrated 'hyperacute T waves' in multiple leads without evidence of STEMI. Troponin originally 139, then 381 on repeat. CTA was performed and did not reveal dissection or PE. CT did demonstrate acute inflammation of the gallbladder with a stone at the neck. A central line was placed for resuscitation purposes and the patient was transferred to [facility] for further evaluation. Prior to transfer, lab work without leukocytosis (10.7) and LFTs/Lipase without abnormality. ACS consulted upon arrival to [facility] for cholecystitis. She was admitted to the SDU for telemetry under EGS but transferred to [facility] on 05/20/22 Hospital Course/Procedures: 05/16/2022: Transferred from [facility] ED with cholecystitis, up-trending troponin, and unclear EKG findings. Up-trending leukocytosis, down-trending troponin by PM. Cardiology following. Zosyn started. 05/17/2022: rCT with worsening gallbladder inflammation /o free air or rupture. Percutaneous cholecystotomy tube placement with IR. 05/19/2022: Bilious emesis, NGT placed 05/20/2022: Transferred to [facility] 05/21/2022:To stop zosyn today day 4/4 Events in last 24 hours: -NAEO, continue [...] Seen resting in bed in SICU in [facility]- J line in place -Neurologic - No [...] Gap Glu BUN Cr Ca Mg PO4 05/22/222 2.0 05/22/2231 138 3.6 98 31 13 [...] Acute Cholecystitis Acute abdominal pain Type II [place] Atypical takatsubo PMHx: GERD, HTN, HLD, spinal [...] P (more content not included)... Normal [facility] Cigar Bander Hand Authentication Interface Message Text 05/22/2022 4:04 PM Referring Attending: Dr Jocelyne Victoria [id number] Planned Procedure: Coronary angiograms w/ poss intervention Procedure Indication: Suspected CAD CV Risk Factors: Hypertension: Yes History of Present Illness: 66 year old female with history of hypertension, recent diagnosis of type II [place], atypical takotsubo, acute cholecystitis s/p percutaneous cholecystostomy drain placement is referred for [facility] for CAD risk stratification and preparation [...] RBC Hgb Hct MCV RDW Plt 05/22/22 003 7.0 4.17 11.4 34.3 82 15.1 322 [...] 98 31 13 91 5 0.76 8.7 05/21/22123 138 3.2 100 29 12 107 4 0.65 8.1 05/20/22216 137 3.8 100 30 11 105 5 0.71 7.6 05/19/22354 139 3.5 102 31 10 120 [...] Hemodyn (more content not included)... Normal [facility] BASIC METABOLIC PANELon 04-28 Anion gap [Moles/Vol] 12 mmol/L Normal 10-20 [facility] Comment on above: Performed By: #### 8 2948 #### NURSING GLUCOSE PROGRAM [address] [place], [address] Calcium [Mass/Vol] 8.1 mg/dL Low 8.4-10.4 [facility] Comment on above: Performed By: #### 8 2948 #### NURSING GLUCOSE PROGRAM [address] [place], [address] Chloride [Moles/Vol] 100 mmol/L Normal 97-111 [facility] Comment on above: Performed By: #### 8 2948 #### NURSING GLUCOSE PROGRAM [address] [place], [address] CO2 [Moles/Vol] 29 mmol/L Normal 21-30 [facility] Comment on above: Performed By: #### 8 2948 #### NURSING GLUCOSE PROGRAM [address] [place], [address] Creatinine [Mass/Vol] 0.65 mg/dL Normal 0.50-1.10 [facility] Comment on above: Performed By: #### 8 2948 #### NURSING GLUCOSE PROGRAM [address] [place], [address] ESTIMATED GFR (CKD-EPI) 96 mL/min/1.73sqm Normal >=60 [...] Inclusion of Race in Diagnosing Kidney Disease. [place] Journal of Kidney Diseases 2021;79(2):268-88.e1. 2. N Engl J Med 2020 Vol. 385 Issue 19 Pages 6679-1721 Performed By: #### 8 2948 #### NURSING GLUCOSE PROGRAM [address] [place], [address] Glucose [Mass/Vol] 107 mg/dL Normal 80-116 [facility] Comment on above: Performed By: #### 8 2948 #### NURSING GLUCOSE PROGRAM [address] [place], [address] Potassium [Moles/Vol] 3.2 mmol/L Low 3.3-5.3 [facility] Comment on above: Performed By: #### 8 2948 #### NURSING GLUCOSE PROGRAM [address] [place], [address] Sodium [Moles/Vol] 138 mmol/L Normal 135-148 [facility] Comment on above: Performed By: #### 8 2948 #### NURSING GLUCOSE PROGRAM [address] [place], [address] Urea nitrogen [Mass/Vol] 4 mg/dL Low 8-22 [facility] Comment on above: Performed By: #### 8 2948 #### NURSING GLUCOSE PROGRAM [address] [place], [address] COMPLETE BLOOD COUNTon 05-21 Erythrocyte distribution width (RBC) [Ratio] 15.2 % High 11.5-14.5 [facility] Comment on above: Performed By: #### 8 2948 #### NURSING GLUCOSE PROGRAM [address] [place], [address] Hematocrit (Bld) [Volume fraction] 30.1 % Low 36.0-46.0 [facility] Comment on above: Performed By: #### 8 2948 #### NURSING GLUCOSE PROGRAM [address] [place], [address] Hemoglobin (Bld) [Mass/Vol] 10.1 g/dL Low 12.0-15.0 [facility] Comment on above: Performed By: #### 8 2948 #### NURSING GLUCOSE PROGRAM [address] [place], [address] MCH (RBC) [Entitic mass] 27.5 pg Normal 26.0-34.0 [facility] Comment on above: Performed By: #### 8 2948 #### NURSING GLUCOSE PROGRAM [address] [place], [address] MCHC (RBC) [Mass/Vol] 33.4 g/dL Normal 32.0-35.9 [facility] Comment on above: Performed By: #### 8 2948 #### NURSING GLUCOSE PROGRAM [address] [place], [address] MCV (RBC) [Entitic vol] 82 fL Normal 80-100 [facility] Comment on above: Performed By: #### 8 2948 #### NURSING GLUCOSE PROGRAM [address] [place], [address] Platelet mean volume (Bld) [Entitic vol] 7.5 fL Normal 7.5-11.2 [facility] Comment on above: Performed By: #### 8 2948 #### NURSING GLUCOSE PROGRAM [address] [place], [address] Platelets (Bld) [#/Vol] 241 10*3/uL Normal 150-400 [facility] Comment on above: Performed By: #### 8 2948 #### NURSING GLUCOSE PROGRAM [address] [place], [address] RBC (Bld) [#/Vol] 3.67 10*6/uL Low 4.00-5.20 [facility] Comment on above: Performed By: #### 8 2948 #### NURSING GLUCOSE PROGRAM [address] [place], [address] WBC (Bld) [#/Vol] 5.0 10*3/uL Normal 4.5-11.5 [facility] Comment on above: Performed By: #### 8 2948 #### NURSING GLUCOSE PROGRAM [address] [place], [address] Care Plan Noteon 05-21-2022 [employer] Hand Authentication Interface Message Text Problem: Routine Care: [...] demand and imbalance Outcome: Progressing Normal [facility] Consultson 05-21-2022 Cigar Bander Hand Authentication Interface Message Text Physical Therapy Attempted to see pt for treatment at 9:24, however, before this pt finished introducing herself pt states I just got back to sleep . Pt keeps her eyes closed and requests more time to sleep. Will continue to follow pt per POC. Geovanna Villagomez, PT, DPT Normal [facility] GLUCOSE, FINGERSTICK-IN OFFI CEon 05-21-2022 Glucose [Mass/Vol] 111 mg/dL Normal 80-116 [facility] Comment on above: Performed By: #### C H8, HEPATIC #### [facility] [address] [place] [address], Glucose [Mass/Vol] 101 mg/dL Normal 80-116 [facility] Comment on above: Performed By: #### H STRP #### [facility] [address] [place] [address], Glucose [Mass/Vol] 90 mg/dL Normal 80-116 [facility] Comment on above: Performed By: #### Reid Grullon CH8 #### [facility] [address] [place] [address], Glucose [Mass/Vol] 77 mg/dL Low 80-116 [facility] Comment on above: Performed By: #### 8 2948 #### NURSING GLUCOSE PROGRAM [address] [place] [address], [address] Glucose [Mass/Vol] 91 mg/dL Normal 80-116 [facility] Comment on above: Performed By: #### T S #### S PATHOLOGY LABORATORY [address] [place], [address] MAGNESIUMon 05-21-2022 Magnesium [Mass/Vol] 1.9 mg/dL Normal 1.6-2.8 [facility] Comment on above: Performed By: #### 8 2948 #### NURSING GLUCOSE PROGRAM [address] [place], [address] Progress Noteson 05-21-2022 Cigar Bander Hand Authentication Interface Message Text [facility] DIVISION OF ACUTE CARE SURGERY ---- GENERAL INFORMATION --- EMERGENCY GENERAL SURGERY NOTE Patient Name: Gerry Victoria Admission Date: 05/16/2022 Patient seen and examined on 05/21/2022 -- INTERVAL HISTORY/EVENTS Background Narrative: Gerry Victoria is a 66 year old female with PMH of hypertension, RLS, GERD, and h/o paroxysmal SVT who presented to critical access hospital with epigastric pain with nausea and vomiting. Patient describes onset of pain on prior day that has increased since then. Shortly after onset of pain, patient experienced nausea and persistent vomiting, now unable to tolerate PO intake. Denies fevers, chills. She presented to [facility] where EKG demonstrated 'hyperacute T waves' in multiple leads without evidence of STEMI. Troponin originally 139, then 381 on repeat. CTA was performed and did not reveal dissection or PE. CT did demonstrate acute inflammation of the gallbladder with a stone at the neck. A central line was placed for resuscitation purposes and the patient was transferred to [facility] for further evaluation. Prior to transfer, lab work without leukocytosis (10.7) and LFTs/Lipase without abnormality. ACS consulted upon arrival to [facility] for cholecystitis. She was admitted to the SDU for telemetry under EGS but transferred to [facility] on 05/20/22 Hospital Course/Procedures: 05/16/2022: Transferred from [facility] ED with cholecystitis, up-trending troponin, and unclear EKG findings. Up-trending leukocytosis, down-trending troponin by PM. Cardiology following. Zosyn started. 05/17/2022: rCT with worsening gallbladder inflammation /o free air or rupture. Percutaneous cholecystotomy tube placement with IR. 05/19/2022: Bilious emesis, NGT placed 05/20/2022: Transferred to [facility] 05/21/2022:To stop zosyn today day 06/28 Events in last 24 hours: -NAEO -Afebrile, [...] Seen resting in bed in SICU in [facility]- I J line in place -Neurologic [...] Acute Cholecystitis Acute abdominal pain Type II [place] Atypical takatsubo PMHx: GERD, HTN, HLD, spinal stenosis, paroxysmal SVT, overactive bladder, RLS, stasis dermatitis, PARTH, fibromyalgia, chronic fatigue syndrome Assessment: 66yo female with acute cholecystitis and associated pain. Admission complicated by initial up-trending troponin and abnormal EKG findings. Troponin now down-trending. Echo 05/16 with findings of LVEF 55% and possible atypical takatsubo for w (more content not included)... Normal [facility] ANTI FXA-LMW HEPARINon 05-20 ANTI FXA-LMW HEPARIN ASSAY 0.25 IU/mL Normal [facility] Comment on above: Order Comment: The r ecommended therapeutic range for treatment of thrombosis with Low Molecular Weight Heparin is 0.5 - 1.0 IU/mLThe recommended range for VTE prophylaxis with Low Molecular Weight Heparin is 0.2 - 0.4 IU/mL. Performed By: #### 8 2948 #### [facility] GLUCOSE PROGRAM [address] [place] [address], [address] BASIC METABOLIC PANELon 04-28 Anion gap [Moles/Vol] 11 mmol/L Normal 10-20 [facility] Comment on above: Performed By: #### Reid Grullon, CH8 #### [facility] [address] [place] [address], Calcium [Mass/Vol] 7.6 mg/dL Low 8.4-10.4 [facility] Comment on above: Performed By: #### Reid Grullon, CH8 #### [facility] [address] [place] [address], Chloride [Moles/Vol] 100 mmol/L Normal 97-111 [facility] Comment on above: Performed By: #### Reid Grullon, CH8 #### [facility] [address] [place] [address], CO2 [Moles/Vol] 30 mmol/L Normal 21-30 [facility] Comment on above: Performed By: #### Reid Grullon CH8 #### [facility] [address] [place] [address], Creatinine [Mass/Vol] 0.71 mg/dL Normal 0.50-1.10 [facility] Comment on above: Performed By: #### Reid Grullon, CH8 #### [facility] [address] [place] [address], ESTIMATED GFR (CKD-EPI) 93 mL/min/1.73sqm Normal >=60 [...] Inclusion of Race in Diagnosing Kidney Disease. [place] Journal of Kidney Diseases 202;79(2):268-88.e1. 2. N Engl J Med 2020 Vol. 385 Issue 19 Pages 3544-8985 Performed By: #### Reid Grullon CH8 #### S PATHOLOGY LABORATORY [address] [place] [address], Glucose [Mass/Vol] 105 mg/dL Normal 80-116 [facility] Comment on above: Performed By: #### Reid Grullon CH8 #### S PATHOLOGY LABORATORY [address] [place] [address], Potassium [Moles/Vol] 3.8 mmol/L Normal 3.3-5.3 [facility] Comment on above: Performed By: #### Reid Grullon CH8 #### S PATHOLOGY LABORATORY [address] [place] [address], Sodium [Moles/Vol] 137 mmol/L Normal 135-148 [facility] Comment on above: Performed By: #### Reid Grullon CH8 #### S PATHOLOGY LABORATORY [address] [place] [address], Urea nitrogen [Mass/Vol] 5 mg/dL Low 8-22 [facility] Comment on above: Performed By: #### Reid Grullon CH8 #### S PATHOLOGY LABORATORY [address] [place] [address], COMPLETE BLOOD COUNTon 05-20 Erythrocyte distribution width (RBC) [Ratio] 15.3 % High 11.5-14.5 [facility] Comment on above: Performed By: #### T S #### S PATHOLOGY LABORATORY [address] [place] [address], Hematocrit (Bld) [Volume fraction] 27.9 % Low 36.0-46.0 [facility] Comment on above: Performed By: #### T S #### [facility] [address] [place] [address], Hemoglobin (Bld) [Mass/Vol] 9.2 g/dL Low 12.0-15.0 [facility] Comment on above: Performed By: #### T S #### [facility] [address] [place] [address], MCH (RBC) [Entitic mass] 27.5 pg Normal 26.0-34.0 [facility] Comment on above: Performed By: #### T S #### [facility] [address] [place] [address], MCHC (RBC) [Mass/Vol] 33.0 g/dL Normal 32.0-35.9 [facility] Comment on above: Performed By: #### T S #### [facility] [address] [place] [address], MCV (RBC) [Entitic vol] 83 fL Normal 80-100 [facility] Comment on above: Performed By: #### T S #### [facility] [address] [place] [address], Platelet mean volume (Bld) [Entitic vol] 7.5 fL Normal 7.5-11.2 [facility] Comment on above: Performed By: #### T S #### [facility] [address] [place] [address], Platelets (Bld) [#/Vol] 231 10*3/uL Normal 150-400 [facility] Comment on above: Performed By: #### T S #### [facility] [address] [place] [address], RBC (Bld) [#/Vol] 3.36 10*6/uL Low 4.00-5.20 [facility] Comment on above: Performed By: #### T S #### [facility] [address] [place] [address], WBC (Bld) [#/Vol] 4.7 10*3/uL Normal 4.5-11.5 [facility] Comment on above: Performed By: #### T S #### [facility] [address] [place], [place], GLUCOSE, FINGERSTICK-IN OFFI CEon 05-20-2022 Glucose [Mass/Vol] 95 mg/dL Normal 80-116 [facility] Comment on above: Performed By: #### 8 2948 ####NURSING GLUCOSE [id number] [place], [address] Glucose [Mass/Vol] 117 mg/dL High 80-116 [facility] Comment on above: Performed By: #### 8 2948 #### NURSING GLUCOSE PROGRAM [address] [place], [place], Glucose [Mass/Vol] 85 mg/dL Normal 80-116 [facility] Comment on above: Performed By: #### Reid Grullon CH8 #### S PATHOLOGY LABORATORY [address] [place], [place], Glucose [Mass/Vol] 100 mg/dL Normal 80-116 [facility] Comment on above: Performed By: #### T S #### [facility] [address] [place], [place], Glucose [Mass/Vol] 102 mg/dL Normal 80-116 [facility] Comment on above: Performed By: #### 8 2948 #### NURSING GLUCOSE PROGRAM [address] [place], [place], Glucose [Mass/Vol] 92 mg/dL Normal 80-116 [facility] Comment on above: Performed By: #### SAMMY Hutton #### [facility] [address] [place], [place], MAGNESIUMon 05-20-2022 Magnesium [Mass/Vol] 1.8 mg/dL Normal 1.6-2.8 [facility] Comment on above: Performed By: #### Reid Grullon CH8 #### [facility] [address] [place], [place], Progress Noteson 05-20-2022 Cigar [employer]ander Hand Authentication Interface Message Text [facility] DIVISION OF ACUTE CARE SURGERY ---- GENERAL INFORMATION --- EMERGENCY GENERAL SURGERY NOTE Patient Name: Gerry Victoria Admission Date: 05/16/2022 Patient seen and examined on 05/20/2022 -- INTERVAL HISTORY/EVENTS Background Narrative: Gerry Victoria is a 66 year old female with PMH of hypertension, RLS, GERD, and h/o paroxysmal SVT who presented to critical access hospital with epigastric pain with nausea and vomiting. Patient describes onset of pain on prior day that has increased since then. Shortly after onset of pain, patient experienced nausea and persistent vomiting, now unable to tolerate PO intake. Denies fevers, chills. She presented to [facility] where EKG demonstrated 'hyperacute T waves' in multiple leads without evidence of STEMI. Troponin originally 139, then 381 on repeat. CTA was performed and did not reveal dissection or PE. CT did demonstrate acute inflammation of the gallbladder with a stone at the neck. A central line was placed for resuscitation purposes and the patient was transferred to [facility] for further evaluation. Prior to transfer, lab work without leukocytosis (10.7) and LFTs/Lipase without abnormality. ACS consulted upon arrival to [facility] for cholecystitis. She was admitted to the SDU for telemetry under EGS. Hospital Course/Procedures: 05/16/2022: Transferred from [facility] ED with cholecystitis, up-trending troponin, and unclear EKG findings. Up-trending leukocytosis, down-trending troponin by PM. Cardiology following. Zosyn started. 05/17/2022: rCT with worsening gallbladder inflammation /o free air or rupture. Percutaneous cholecystotomy tube placement with IR. 05/19/2022: Bilious emesis, NGT placed 05/20/2022: Transferred to [facility] Events in last 24 hours: Transferred to [facility] Afebrile, HDS, no leukocytosis NGT in place [...] Seen resting in bed in SICU in [facility] -Neurologic - No focal deficits, clear [...] Acute Cholecystitis Acute abdominal pain Type II [place] Atypical takatsubo PMHx: GERD, HTN, HLD, spinal [...] wit (more content not included)... Normal [facility] BASIC METABOLIC PANELon 04-28 Anion gap [Moles/Vol] 10 mmol/L Normal 01-13 [facility] Comment on above: Performed By: #### M SAMMY Grullon #### [facility] [address] [place] [address], [id number] Calcium [Mass/Vol] 7.7 mg/dL Low 8.4-10.4 [facility] Comment on above: Performed By: #### M Yadi, CH8 #### [facility] [address] [place], [place], Chloride [Moles/Vol] 102 mmol/L Normal 97-111 [facility] Comment on above: Performed By: #### Reid Grullon, CH8 #### [facility] [address] [place], [place], CO2 [Moles/Vol] 31 mmol/L High 21-30 [facility] Comment on above: Performed By: #### Reid Grullon, CH8 #### [facility] [address] [place], [place], Creatinine [Mass/Vol] 0.74 mg/dL Normal 0.50-1.10 [facility] Comment on above: Performed By: #### Reid Grullon, CH8 #### S PATHOLOGY LABORATORY [address] [place], [place], ESTIMATED GFR (CKD-EPI) 88 mL/min/1.73sqm Normal >=60 [facility] Comment on above: Result Comment: 2020 [...] Inclusion of Race in Diagnosing Kidney Disease. [place] Journal of Kidney Diseases 2021;79(2):268-88.e1. 2. N Engl J Med 2020 Vol. 385 Issue 19 Pages 8008-8245 Performed By: #### Reid Grullon, CH8 #### S PATHOLOGY LABORATORY [address] [place], [place], Glucose [Mass/Vol] 120 mg/dL High 80-116 [facility] Comment on above: Performed By: #### Reid Grullon, CH8 #### [facility] [address] [place], [place], Potassium [Moles/Vol] 3.5 mmol/L Normal 3.3-5.3 [facility] Comment on above: Performed By: #### Reid Grullon, CH8 #### S PATHOLOGY LABORATORY [address] [place] [address], Sodium [Moles/Vol] 139 mmol/L Normal 135-148 [facility] Comment on above: Performed By: #### Reid Grullon, CH8 #### S PATHOLOG[facility] LABORATORY [address] [place] [address], Urea nitrogen [Mass/Vol] 8 mg/dL Normal 8-22 [facility] Comment on above: Performed By: #### Reid Grullon, CH8 #### S [facility] [address] [place] [address], COMPLETE BLOOD COUNTon 05-19 Erythrocyte distribution width (RBC) [Ratio] 15.6 % High 11.5-14.5 [facility] Comment on above: Performed By: #### Reid Grullon, CH8 #### [facility] [address] [place] [address], Hematocrit (Bld) [Volume fraction] 28.2 % Low 36.0-46.0 [facility] Comment on above: Performed By: #### Reid Grullon, CH8 #### [facility] [address] [place] [address], Hemoglobin (Bld) [Mass/Vol] 9.4 g/dL Low 12.0-15.0 [facility] Comment on above: Performed By: #### Reid Grullon, CH8 #### S [facility] [address] [place] [address], MCH (RBC) [Entitic mass] 27.7 pg Normal 26.0-34.0 [facility] Comment on above: Performed By: #### Reid Grullon, CH8 #### S [facility] [address] [place] [address], MCHC (RBC) [Mass/Vol] 33.6 g/dL Normal 32.0-35.9 [facility] Comment on above: Performed By: #### Reid Grullon, CH8 #### S [facility] [address] [place] [address], MCV (RBC) [Entitic vol] 83 fL Normal 80-100 [facility] Comment on above: Performed By: #### Reid Grullon, CH8 #### [facility] [address] [place] [address], Platelet mean volume (Bld) [Entitic vol] 7.8 fL Normal 7.5-11.2 [facility] Comment on above: Performed By: #### Reid Grullon, CH8 #### [facility] [address] [place] [address], Platelets (Bld) [#/Vol] 199 10*3/uL Normal 150-400 [facility] Comment on above: Performed By: #### Reid Grullon, CH8 #### [facility] [address] [place] [address], RBC (Bld) [#/Vol] 3.41 10*6/uL Low 4.00-5.20 [facility] Comment on above: Performed By: #### Reid Grullon, CH8 #### [facility] [address] [place] [address], WBC (Bld) [#/Vol] 5.3 10*3/uL Normal 4.5-11.5 [facility] Comment on above: Performed By: #### Reid Grullon, CH8 #### [facility] [address] [place] [address], Care Plan Noteon 05-19-2022 [employer] Hand Authentication Interface Message Text Problem: Routine Care: [...] Reid Grullon, CH8 #### S [facility] [address] [place] [address], Glucose [Mass/Vol] 90 mg/dL Normal 80-116 [facility] Comment on above: Performed By: #### 8 2948 #### NURSING GLUCOSE PROGRAM [address] [place] [address], [id number] Glucose [Mass/Vol] 116 mg/dL Normal 80-116 [facility] Comment on above: Performed By: #### T S #### S [facility] [address] [place] [address], Glucose [Mass/Vol] 106 mg/dL Normal 80-116 [facility] Comment on above: Performed By: #### Reid Grullon, CH8 #### S [facility] [address] [place] [address], Glucose [Mass/Vol] 106 mg/dL Normal 80-116 [facility] Comment on above: Performed By: #### Reid Grullon, CH8 #### S [facility] [address] [place] [address], HEPATIC FUNCTION PANELon Albumin [Mass/Vol] 2.8 g/dL Low 3.4-5.1 [facility] Comment on above: Performed By: #### Reid Grullon, ADEEL8 #### [facility] [address] [place] [address], ALK 63 IU/L Normal 40-200 [facility] Comment on above: Performed By: #### Reid Grullon, CH8 #### [facility] [address] [place] [address], ALT [Catalytic activity/Vol] 8 U/L Normal 7-40 [facility] Comment on above: Performed By: #### Reid Grullon, CH8 #### [facility] [address] [place] [address], AST [Catalytic activity/Vol] 18 U/L Normal 7-40 [facility] Comment on above: Performed By: #### Reid Grullon, CH8 #### S [facility] [address] [place] [address], Bilirubin [Mass/Vol] 0.9 mg/dL Normal 0.1-1.5 [facility] Comment on above: Performed By: #### Reid Grullon, CH8 #### S [facility] [address] [place] [address], Bilirubin.direct [Mass/Vol] 0.48 mg/dL High 0.10-0.30 [facility] Comment on above: Performed By: #### Reid Grullon, CH8 #### [facility] [address] [place] [address], Protein [Mass/Vol] 4.7 g/dL Low 5.7-8.1 [facility] Comment on above: Performed By: #### Reid Grullon, CH8 #### [facility] [address] [place] [address], MAGNESIUMon 05-19-2022 Magnesium [Mass/Vol] 1.8 mg/dL Normal 1.6-2.8 [facility] Comment on above: Performed By: ###Willi Grullon, CH8 #### [facility] [address] [place] [address], Progress Noteson 05-19-2022 [employer] Hand Authentication Interface Message Text [facility] DIVISION OF ACUTE CARE SURGERY ---- GENERAL INFORMATION --- EMERGENCY GENERAL SURGERY NOTE Patient Name: Gerry Victoria Admission Date: 05/16/2022 Patient seen and examined on 05/19/2022 -- INTERVAL HISTORY/EVENTS Background Narrative: Gerry Victoria is a 66 year old female with PMH of hypertension, RLS, GERD, and h/o paroxysmal SVT who presented to critical access hospital with epigastric pain with nausea and vomiting. Patient describes onset of pain on prior day that has increased since then. Shortly after onset of pain, patient experienced nausea and persistent vomiting, now unable to tolerate PO intake. Denies fevers, chills. She presented to [facility] where EKG demonstrated 'hyperacute T waves' in multiple leads without evidence of STEMI. Troponin originally 139, then 381 on repeat. CTA was performed and did not reveal dissection or PE. CT did demonstrate acute inflammation of the gallbladder with a stone at the neck. A central line was placed for resuscitation purposes and the patient was transferred to [facility] for further evaluation. Prior to transfer, lab work without leukocytosis (10.7) and LFTs/Lipase without abnormality. ACS consulted upon arrival to [facility] for cholecystitis. She was admitted to the SDU for telemetry under EGS. Hospital Course/Procedures: 05/16/2022: Transferred from [facility] ED with cholecystitis, up-trending troponin, and [...] vol (more content not included)... Normal [facility] XR ABDOMEN 1 VIEW APon 05-19 [...] amount of stool. MACRO: None Normal The two.42.solutions BASIC METABOLIC PANELon 04-28 Anion gap [Moles/Vol] 12 mmol/L Normal 10-20 [facility] Comment on above: Performed By: #### M Yadi, CH8 #### [facility] [address] [place] [address], [id number] Calcium [Mass/Vol] 7.7 mg/dL Low 8.4-10.4 [facility] Comment on above: Performed By: #### M G, CH8 #### [facility] [address] [place], [place], Chloride [Moles/Vol] 101 mmol/L Normal 97-111 [facility] Comment on above: Performed By: #### M Yadi, CH8 #### [facility] [address] [place], [place], CO2 [Moles/Vol] 27 mmol/L Normal 21-30 [facility] Comment on above: Performed By: #### M Yadi, CH8 #### [facility] [address] [place], [place], Creatinine [Mass/Vol] 0.78 mg/dL Normal 0.50-1.10 [facility] Comment on above: Performed By: #### M Yadi, CH8 #### S PATH[facility] [address] [place], [place], ESTIMATED GFR (CKD-EPI) 83 mL/min/1.73sqm Normal >=60 [facility] Comment on above: Result Comment: 2020 [...] Inclusion of Race in Diagnosing Kidney Disease. [place] Journal of Kidney Diseases 2021;79(2):268-88.e1. 2. N Engl J Med 2020 Vol. 385 Issue 19 Pages 3557-2151 Performed By: #### M Yadi, CH8 #### [facility] [address] [place], [place], Glucose [Mass/Vol] 77 mg/dL Low 80-116 [facility] Comment on above: Performed By: #### M Yadi, CH8 #### [facility] [address] [place], [place], Potassium [Moles/Vol] 3.9 mmol/L Normal 3.3-5.3 [facility] Comment on above: Performed By: #### Reid Grullon, CH8 #### S [facility] [address] [place] [address], Sodium [Moles/Vol] 136 mmol/L Normal 135-148 [facility] Comment on above: Performed By: #### Reid Grullon, CH8 #### S [facility] [address] [place] [address], Urea nitrogen [Mass/Vol] 12 mg/dL Normal 8-22 [facility] Comment on above: Performed By: #### Reid Grullon, CH8 #### [facility] [address] [place] [address], COMPLETE BLOOD COUNTon 05-18 Erythrocyte distribution width (RBC) [Ratio] 15.3 % High 11.5-14.5 [facility] Comment on above: Performed By: #### Reid Grullon, CH8 #### [facility] [address] [place] [address], Hematocrit (Bld) [Volume fraction] 28.2 % Low 36.0-46.0 [facility] Comment on above: Performed By: #### Reid Grullon, CH8 #### [facility] [address] [place] [address], Hemoglobin (Bld) [Mass/Vol] 10.1 g/dL Low 12.0-15.0 [facility] Comment on above: Performed By: #### Reid Grullon, CH8 #### [facility] [address] [place] [address], MCH (RBC) [Entitic mass] 29.2 pg Normal 26.0-34.0 [facility] Comment on above: Performed By: #### Reid Grullon, CH8 #### [facility] [address] [place] [address], MCHC (RBC) [Mass/Vol] 35.6 g/dL Normal 32.0-35.9 [facility] Comment on above: Performed By: #### Reid Grullon, CH8 #### S [facility] [address] [place] [address], MCV (RBC) [Entitic vol] 82 fL Normal 80-100 [facility] Comment on above: Performed By: #### Reid Grullon, ADEEL8 #### S [facility] [address] [place] [address], Platelet mean volume (Bld) [Entitic vol] 7.6 fL Normal 7.5-11.2 [facility] Comment on above: Performed By: #### Reid Grullon, ADEEL8 #### [facility] [address] [place] [address], Platelets (Bld) [#/Vol] 177 10*3/uL Normal 150-400 [facility] Comment on above: Performed By: #### Reid Grullon, ADEEL8 #### [facility] [address] [place] [address], RBC (Bld) [#/Vol] 3.45 10*6/uL Low 4.00-5.20 [facility] Comment on above: Performed By: #### Reid Grullon, ADEEL8 #### [facility] [address] [place] [address], WBC (Bld) [#/Vol] 9.4 10*3/uL Normal 4.5-11.5 [facility] Comment on above: Performed By: #### Reid Grullon, ADEEL8 #### [facility] [address] [place] [address], GLUCOSE, FINGERSTICK-IN OFFI CEon 05-18-2022 Glucose [Mass/Vol] 93 mg/dL Normal 80-116 [facility] Comment on above: Performed By: #### T S #### S PATH[facility] LAB[facility]ATORY [address] [place] [address], Glucose [Mass/Vol] 98 mg/dL Normal 80-116 [facility] Comment on above: Performed By: #### T S #### S [facility] LAB[facility] [address] [place] [address], Glucose [Mass/Vol] 118 mg/dL High 80-116 [facility] Comment on above: Result Comment: Verito aly RN, APN, MD Performed By: #### T S #### [facility] [address] [place], [place], Glucose [Mass/Vol] 125 mg/dL High 80-116 [facility] Comment on above: Result Comment: Verito aly RN, APN, MD Performed By: #### M Yadi, CH8 #### [facility] [address] [place], [place], Glucose [Mass/Vol] 66 mg/dL Low 80-116 [facility] Comment on above: Result Comment: Verito aly RN, APN, MD Performed By: #### M Yadi, CH8 #### [facility] [address] [place], [place], HIGH SENSITIVITY TROPONIN Io n 05-18-2022 HS TROPONIN I 60 ng/L Critically high <=15 [facility] Comment on above: Order Comment: High Sensitivity Cardiac Troponin I (hsTnI) assay has replaced the conventional troponin assay at [facility].All results are reported in whole numbers representing ng/L.Repeat test times for ruling out acute coronary syndrome (ACS) are every 2 hours instead of every 6-8 hours.[id number] conventional troponin (I-stat) will remain available in the [facility] ED ??? results obtained by different [...] value in 2 hours depending on risk [id number] ng/L or greater??? concern for ACS or [...] Performed By: #### H STRP ####[facility] [id number] [place], [place], MAGNESIUMon 05-18-2022 Magnesium [Mass/Vol] 2.3 mg/dL Normal 1.6-2.8 [facility] Comment on above: Performed By: #### M G, CH8 #### [facility] [address] [place], [place], Progress Noteson 05-18-2022 [employer] Hand Authentication Interface Message Text [facility] DIVISION OF ACUTE CARE SURGERY ---- GENERAL INFORMATION --- EMERGENCY GENERAL SURGERY NOTE Patient Name: Gerry Victoria Admission Date: 05/16/2022 Patient seen and examined on 05/18/2022 -- INTERVAL HISTORY/EVENTS Background Narrative: Gerry Victoria is a 66 year old female with PMH of hypertension, RLS, GERD, and h/o paroxysmal SVT who presented to critical access hospital with epigastric pain with nausea and vomiting. Patient describes onset of pain on prior day that has increased since then. Shortly after onset of pain, patient experienced nausea and persistent vomiting, now unable to tolerate PO intake. Denies fevers, chills. She presented to [facility] where EKG demonstrated 'hyperacute T waves' in multiple leads without evidence of STEMI. Troponin originally 139, then 381 on repeat. CTA was performed and did not reveal dissection or PE. CT did demonstrate acute inflammation of the gallbladder with a stone at the neck. A central line was placed for resuscitation purposes and the patient was transferred to [facility] for further evaluation. Prior to transfer, lab work without leukocytosis (10.7) and LFTs/Lipase without abnormality. ACS consulted upon arrival to [facility] for cholecystitis. She was admitted to the SDU for telemetry under EGS. Hospital Course/Procedures: 05/16/2022: Transferred from [facility] ED with cholecystitis, up-trending troponin, and [...] Hct MCV RDW Plt PT aPTT INR 05/18/228 9.4 3.45 10.1 28.2 82 15.3 177 Basic Metabolic Panel Na K Cl CO2 Gap Glu BUN Cr Ca Mg PO4 05/18/228 2.3 05/18/22227 136 3.9 101 27 [...] obstructi (more content not included)... Normal [facility] AEROBIC WOUND CULTUREon 04-28 AEROBIC WOUND CULTURE LACTOBACILLUS SPEC IES Rare Lactobacillus species No further workup GRAM STAIN: 2+ Polymorphonuclear Leukocytes No Squamous Epithelial Cells seen 2+ Gram Positive Bacilli Normal [facility] Comment on above: Performed By: #### C PYOG #### [facility] [address] [place] [address] BASIC METABOLIC PANELon 04-28 Anion gap [Moles/Vol] 11 mmol/L Normal 10-20 [facility] Comment on above: Performed By: #### T S #### [facility] [address] [place] [address], Calcium [Mass/Vol] 8.1 mg/dL Low 8.4-10.4 [facility] Comment on above: Performed By: #### T S #### [facility] [address] [place] [address], Chloride [Moles/Vol] 97 mmol/L Normal 97-111 [facility] Comment on above: Performed By: #### T S #### [facility] [address] [place] [address], CO2 [Moles/Vol] 27 mmol/L Normal 21-30 [facility] Comment on above: Performed By: #### T S #### [facility] [address] [place] [address], Creatinine [Mass/Vol] 0.97 mg/dL Normal 0.50-1.10 [facility] Comment on above: Performed By: #### T S #### [facility] [address] [place] [address], ESTIMATED GFR (CKD-EPI) 64 mL/min/1.73sqm Normal >=60 [facility] Comment on above: Result Comment: 2020 [...] Inclusion of Race in Diagnosing Kidney Disease. [place] Journal of Kidney Diseases 2021;79(2):268-88.e1. 2. N Engl J Med 2020 Vol. 385 Issue 19 Pages 0125-0536 Performed By: #### T S #### S PATHOLOGY LABORATORY [address] [place] [address], Glucose [Mass/Vol] 96 mg/dL Normal 80-116 [facility] Comment on above: Performed By: #### T S #### S PATHOLOGY LABORATORY [address] [place] [address], Potassium [Moles/Vol] 4.1 mmol/L Normal 3.3-5.3 [facility] Comment on above: Performed By: #### T S #### S PATH[facility] LABORATORY [address] [place] [address], Sodium [Moles/Vol] 131 mmol/L Low 135-148 [facility] Comment on above: Performed By: #### T S #### S PATH[facility] LABORATORY [address] [place] [address], Urea nitrogen [Mass/Vol] 14 mg/dL Normal 8-22 [facility] Comment on above: Performed By: #### T S #### S PATH[facility] LABORATORY [address] [place] [address], BLOOD CULTUREon 05-17-2022 Bacteria identified Cx Nom (Bld) C BLOOD: No Growth Normal [facility] Comment on above: Performed By: #### 8 2948 #### NURSING GLUCOSE PROGRAM [address] [place], [address] CALCIUM, IONIZEDon 3 CR ICA 1.06 mmol/L Low 1.10-1.40 [facility] Comment on above: Performed By: #### T S #### S PATH[facility] LABORATORY [address] [place] [address], COMPLETE BLOOD COUNTon 05-17 Erythrocyte distribution width (RBC) [Ratio] 15.8 % High 11.5-14.5 [facility] Comment on above: Performed By: #### C H8, HEPATIC #### S PATHOLOG[facility] LABORATORY [address] [place] [address], Hematocrit (Bld) [Volume fraction] 36.4 % Normal 36.0-46.0 [facility] Comment on above: Performed By: #### C H8, HEPATIC #### [facility] [address] [place] [address], Hemoglobin (Bld) [Mass/Vol] 12.1 g/dL Normal 12.0-15.0 [facility] Comment on above: Performed By: #### C H8, HEPATIC #### [facility] [address] [place] [address], MCH (RBC) [Entitic mass] 27.7 pg Normal 26.0-34.0 [facility] Comment on above: Performed By: #### C H8, HEPATIC #### [facility] [address] [place] [address], MCHC (RBC) [Mass/Vol] 33.3 g/dL Normal 32.0-35.9 [facility] Comment on above: Performed By: #### C H8, HEPATIC #### [facility] [address] [place] [address], MCV (RBC) [Entitic vol] 83 fL Normal 80-100 [facility] Comment on above: Performed By: #### C H8, HEPATIC #### S PATHOLOGY LABORATORY [address] [place] [address], Platelet mean volume (Bld) [Entitic vol] 7.8 fL Normal 7.5-11.2 [facility] Comment on above: Performed By: #### C H8, HEPATIC #### S PATHOLOG[facility] LABORATORY [address] [place] [address], Platelets (Bld) [#/Vol] 232 10*3/uL Normal 150-400 [facility] Comment on above: Performed By: #### C H8, HEPATIC #### [facility] [address], [place], RBC (Bld) [#/Vol] 4.37 10*6/uL Normal 4.00-5.20 [facility] Comment on above: Performed By: #### C H8, HEPATIC #### [facility] [address], [place], WBC (Bld) [#/Vol] 12.3 10*3/uL High 4.5-11.5 [facility] Comment on above: Performed By: #### C H8, HEPATIC #### [facility] [address] [place], [place], CT ABDOMEN/PELVIS W/ CONTRAS Ton 05-17-2022 [...] the prior study. MACRO: None Normal [facility] HEPATIC FUNCTION PANELon Albumin [Mass/Vol] 3.2 g/dL Low 3.4-5.1 [facility] Comment on above: Performed By: #### C H8, HEPATIC #### [facility] [address] [place] [address], ALK 72 IU/L Normal 40-200 [facility] Comment on above: Performed By: #### C H8, HEPATIC #### [facility] [address] [place] [address], ALT [Catalytic activity/Vol] 12 U/L Normal 7-40 [facility] Comment on above: Performed By: #### C H8, HEPATIC #### [facility] [address] [place] [address], AST [Catalytic activity/Vol] 25 U/L Normal 7-40 [facility] Comment on above: Performed By: #### C H8, HEPATIC #### [facility] [address] [place] [address], Bilirubin [Mass/Vol] 3.9 mg/dL High 0.1-1.5 [facility] Comment on above: Performed By: #### C H8, HEPATIC #### [facility] [address] [place] [address], Bilirubin.direct [Mass/Vol] 2.30 mg/dL High 0.10-0.30 [facility] Comment on above: Performed By: #### C H8, HEPATIC #### [facility] [address] [place] [address], Protein [Mass/Vol] 5.2 g/dL Low 5.7-8.1 [facility] Comment on above: Performed By: #### C H8, HEPATIC #### [facility] [address] [place] [address], LACTIC ACIDon 05-17-2022 CR LACT 1.4 mmol/L Normal 0.5-2.0 [facility] Comment on above: Performed By: #### T S #### [facility] [address] [place] [address], MAGNESIUMon 05-17-2022 Magnesium [Mass/Vol] 1.9 mg/dL Normal 1.6-2.8 [facility] Comment on above: Performed By: #### C H8, HEPATIC #### [facility] [address] [place] [address], PARTIAL THROMBOPLASTIN TIMEo n 05-17-2022 aPTT Coag (Bld) [Time] 34 s Normal 25-37 Th e [facility] Comment on above: Performed By: #### M G, CH8 #### [facility] [address] [place] [address], PHOSPHORUSon 05-17-2022 Phosphate [Mass/Vol] 3.9 mg/dL Normal 2.3-4.2 [facility] Comment on above: Performed By: #### C H8, HEPATIC #### [facility] [address] [place] [address], PROTHROMBIN TIME AND INRon 0 05-17-2022 INR Coag (PPP) [Relative time] 1.61 {INR} High 0.90-1.10 [facility] Comment on above: Performed By: #### Reid Grullon, ADEEL8 #### [facility] [address], [place], PT Coag (PPP) [Time] 18.1 s High 9.7-12.9 [facility] Comment on above: Performed By: #### Reid Yadi, ADEEL8 #### S [facility] LABORAT[facility] [address], [place], Progress Noteson 05-17-2022 [employer] Hand Authentication Interface Message Text Acute Care Surgery Post-Operative Check Gerry Victoria [id number] Procedure: US guided percutaneous cholecystostomy tube placement [...] Chu Da Silva PA-C Acute Care Surgery [facility] [phone] ACS Consults [phone] ACS Floor Patients Normal The two[employer] [employer] Hand Authentication Interface Message Text -- Attestation signed [...] Intravenous Push Q4H PRN 4 mg at 05/17/222135 Piperacillin-Tazobactam in D5W (ZOSYN) 4-0.5 GM/100ML ivpb 4,500 mg 100 mL 4.5 g Intravenous Q8H Antibiotic 25 mL/hr at 05/18/22612 4,500 mg at 05/18/22612 acetaminophen (TYLENOL) tablet 650 mg Oral Every [...] 4. (more content not included)... Normal [facility] Cigar Bander Hand Authentication Interface Message Text [facility] DIVISION OF ACUTE CARE SURGERY ---- GENERAL INFORMATION --- EMERGENCY GENERAL SURGERY NOTE Patient Name: Gerry Victoria Admission Date: 05/16/2022 Patient seen and examined on 05/17/2022 -- INTERVAL HISTORY/EVENTS Background Narrative: Gerry Victoria is a 66 year old female with PMH of hypertension, RLS, GERD, and h/o paroxysmal SVT who presented to critical access hospital with epigastric pain with nausea and vomiting. Patient describes onset of pain on prior day that has increased since then. Shortly after onset of pain, patient experienced nausea and persistent vomiting, now unable to tolerate PO intake. Denies fevers, chills. She presented to [facility] where EKG demonstrated 'hyperacute T waves' in multiple leads without evidence of STEMI. Troponin originally 139, then 381 on repeat. CTA was performed and did not reveal dissection or PE. CT did demonstrate acute inflammation of the gallbladder with a stone at the neck. A central line was placed for resuscitation purposes and the patient was transferred to [facility] for further evaluation. Prior to transfer, lab work without leukocytosis (10.7) and LFTs/Lipase without abnormality. ACS consulted upon arrival to [facility] for cholecystitis. She was admitted to the SDU for telemetry under EGS. Hospital Course/Procedures: 05/16/2022: Transferred from [facility] ED with cholecystitis, up-trending troponin, and [...] RDW Plt PT aPTT INR 05/17/22410 34 05/17/22410 1.61 05/17/22410 12.3 4.37 12.1 [...] (LVEF) (more content not included)... Normal [facility] ABO RH TYPEon 05-16-2022 ABO and Rh group Nom (Bld) Blood group A Rh(D) positive Normal [facility] Comment on above: Performed By: #### M G, CH8 #### [facility] [address] [place] [address], BASIC METABOLIC PANELon 04-28 Anion gap [Moles/Vol] 14 mmol/L Normal 10-20 [facility] Comment on above: Performed By: #### C H8, HEPATIC #### [facility] [address] [place] [address], Calcium [Mass/Vol] 8.6 mg/dL Normal 8.4-10.4 [facility] Comment on above: Performed By: #### C H8, HEPATIC #### [facility] [address], [place], Chloride [Moles/Vol] 100 mmol/L Normal 97-111 [facility] Comment on above: Performed By: #### C H8, HEPATIC #### [facility] [address], [place], CO2 [Moles/Vol] 27 mmol/L Normal 21-30 [facility] Comment on above: Performed By: #### C H8, HEPATIC #### [facility] [address], [place], Creatinine [Mass/Vol] 0.76 mg/dL Normal 0.50-1.10 [facility] Comment on above: Performed By: #### C H8, HEPATIC #### [facility] [address], [place], ESTIMATED GFR (CKD-EPI) 85 mL/min/1.73sqm Normal >=60 [facility] Comment on above: Result Comment: 2020 CKD EPI Equation using Creatinine without Race Comment: Estimated glomerular filtration rate (eGFR) is calculated without a race coefficient. Values should be interpreted in the context of the patient's full clinical presentation. Reference: 1. Leonardo C, Batiff M, Ilya DC, et al.. A Unifying Approach for GFR Estimation: Recommendations of the NKF-ASN Task Force on Reassessing the Inclusion of Race in Diagnosing Kidney Disease. [place] Journal of Kidney Diseases 2021;79(2):268-88.e1. 2. N Engl J Med 2020 Vol. 385 Issue 19 Pages 7404-1092 Performed By: #### C H8, HEPATIC #### [facility] [address], [place], Glucose [Mass/Vol] 119 mg/dL High 80-116 [facility] Comment on above: Performed By: #### C H8, HEPATIC #### [facility] [address], [place], Potassium [Moles/Vol] 4.9 mmol/L Normal 3.3-5.3 [facility] Comment on above: Performed By: #### C H8, HEPATIC #### [facility] [address], [place], Sodium [Moles/Vol] 136 mmol/L Normal 135-148 [facility] Comment on above: Performed By: #### C H8, HEPATIC #### [facility] [address], [place], Urea nitrogen [Mass/Vol] 9 mg/dL Normal 8-22 [facility] Comment on above: Performed By: #### C H8, HEPATIC #### [facility] [address], [place], Blood Cultureon 05-16-2022 Bacteria identified Cx Nom (Bld) NO GROWTH 5 DAYS PERFORMED BY: [place] [address] PATHOLOGIST SILK BRUSHER WILDER BOTELLO M.D. [facility] Comment on above: Performed By: #### B MP, CBC, LIPASE, HEPATIC #### [address] CBC WITH DIFFERENTIALon 04-28 Basophils (Bld) [#/Vol] 0.06 10*3/uL Normal 0.00-0.20 [facility] Comment on above: Performed By: #### 8 2948 #### NURSING GLUCOSE PROGRAM [address] [place] [address], [address] Basophils/100 WBC (Bld) 0.5 % Normal <=1.9 [facility] Comment on above: Performed By: #### 8 2948 #### NURSING GLUCOSE PROGRAM [address] [place] [address], [address] Eosinophils (Bld) [#/Vol] 0.02 10*3/uL Normal 0.00-0.70 [facility] Comment on above: Performed By: #### 8 2948 #### NURSING GLUCOSE PROGRAM [address] [place] [address], [address] Eosinophils/100 WBC (Bld) 0.1 % Normal 0.1-4.0 [facility] Comment on above: Performed By: #### 8 2948 #### NURSING GLUCOSE PROGRAM [address] [place], [address] Erythrocyte distribution width (RBC) [Ratio] 15.3 % High 11.5-14.5 [facility] Comment on above: Performed By: #### 8 2948 #### NURSING GLUCOSE PROGRAM [address] [place] [address], [address] Hematocrit (Bld) [Volume fraction] 39.2 % Normal 36.0-46.0 [facility] Comment on above: Performed By: #### 8 2948 #### NURSING GLUCOSE PROGRAM [address] [place], [address] Hemoglobin (Bld) [Mass/Vol] 13.0 g/dL Normal 12.0-15.0 [facility] Comment on above: Performed By: #### 8 2948 #### NURSING GLUCOSE PROGRAM [address] [place] [address], [address] Lymphocytes (Bld) [#/Vol] 1.23 10*3/uL Normal 1.00-4.80 [facility] Comment on above: Performed By: #### 8 2948 #### NURSING GLUCOSE PROGRAM [address] [place] [address], [address] Lymphocytes/100 WBC (Bld) 10.9 % Low 24.0-44.0 [facility] Comment on above: Performed By: #### 8 2948 #### NURSING GLUCOSE PROGRAM [address] [place] [address], [address] MCH (RBC) [Entitic mass] 27.4 pg Normal 26.0-34.0 [facility] Comment on above: Performed By: #### 8 2948 #### NURSING GLUCOSE PROGRAM [address] [place] [address], [address] MCHC (RBC) [Mass/Vol] 33.1 g/dL Normal 32.0-35.9 [facility] Comment on above: Performed By: #### 8 2948 #### NURSING GLUCOSE PROGRAM [address] [place], [address] MCV (RBC) [Entitic vol] 83 fL Normal 80-100 [facility] Comment on above: Performed By: #### 8 2948 #### NURSING GLUCOSE PROGRAM [address] [place] [address], [address] MONOCYTE DISTRIBUTION WIDTH 17 Normal <=20 [facility] Comment on above: Performed By: #### 8 4378 #### NURSING GLUCOSE PROGRAM [address] [place], [address] Monocytes (Bld) [#/Vol] 0.69 10*3/uL Normal 0.20-1.00 [facility] Comment on above: Performed By: #### 8 2948 #### NURSING GLUCOSE PROGRAM [address] [place], [address] Monocytes/100 WBC (Bld) 6.1 % Normal 2.0-11.0 [facility] Comment on above: Performed By: #### 8 2948 #### NURSING GLUCOSE PROGRAM [address] [place], [address] Neutrophils (Bld) [#/Vol] 9.30 10*3/uL High 1.50-8.00 [facility] Comment on above: Performed By: #### 8 2948 #### NURSING GLUCOSE PROGRAM [address] [place], [address] Neutrophils/100 WBC (Bld) 82.4 % High 31.0-76.0 [facility] Comment on above: Performed By: #### 8 2948 #### NURSING GLUCOSE PROGRAM [address] [place], [address] Platelet mean volume (Bld) [Entitic vol] 7.5 fL Normal 7.5-11.2 [facility] Comment on above: Performed By: #### 8 2948 #### NURSING GLUCOSE PROGRAM [address] [place], [address] Platelets (Bld) [#/Vol] 290 10*3/uL Normal 150-400 [facility] Comment on above: Performed By: #### 8 2948 #### NURSING GLUCOSE PROGRAM [address] [place], [address] RBC (Bld) [#/Vol] 4.74 10*6/uL Normal 4.00-5.20 [facility] Comment on above: Performed By: #### 8 2948 #### NURSING GLUCOSE PROGRAM [address] [place], [address] WBC (Bld) [#/Vol] 11.3 10*3/uL Normal 4.5-11.5 [facility] Comment on above: Performed By: #### 8 2948 #### NURSING GLUCOSE PROGRAM [address] [place], [address] CT angio chest PE protocolon 05-16-2022 CT angio chest PE protocol [facility] [place] [address] [place] [address] Scan Report Signed Patient: Gerry Victoria MR#: [id number] 10 : 1955 Acct:[id number] Age/Sex: 66 / F ADM Date: 05/15/22 Loc: ER Room: Type: [facility] ER Attending Dr: Copies to: [...] Aditya Hodge M.D.05/16/2022 8:19 AM Dictation Location: [place] [address] Transcribed By: MANUEL 05/16/22818 Dictated By: Aditya Hodge II, MD 05/16/22810 Signed By: 05/16/22818 [facility] Care Plan Noteon 05-16-2022 [employer] Hand Authentication Interface Message Text Problem: Routine Care: [...] Marycarmen Anna RN Outcome: Progressing Normal [facility] [employer] Hand Authentication Interface Message Text This is a 66 YO f with PMH of fibromyalgia, HTN, RLS, who presented with epigastric pain associated with nausea and vomiting around yesterday afternoon. She was seen at [facility] and EKG done there showed NSR but [...] admit to surgery step down. 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 No food allergies. Weights-see above. Monitor NPO status-diet advance. Number of Points: 1 Nutritional Plan of Care: Less than or equal to 6 points: At this time, patient is at low nutrition risk. DTR to provide routine follow up. Will continue to follow, BRENDA Florez (Nutrition) Pager #[phone]. Normal [facility] C[employer] Hand Authentication Interface Message Text ==== New Patient Consult General Cardiology Consult Service C/O: elevated troponin levels HPI: 66 year old female with history of hypertension (on atenolol), fibromylagia, RLS is consulted for elevated HsTNT levels in the setting of hospitalization for acute cholecystitis. She presented to [facility] on 05/15 with epigastric pain, nausea and vomiting, worsening in nature and unable to tolerate oral medications. Per records, EKG at [facility] showed hyperacute T waves without STEMI. HsTroponin trend as 139->381. Imaging showed acute cholecystitis. Patient was then transferred to [facility] for further care. Patient reports no left sided chest pain, however symptomatic with epigastric pain and nausea. Denies any exertional angina at home, no orthopnea, PND or palpitations at home. Denies any prior history of [place]/CAD, DM-2, HF or arrhythmias. She was modestly [...] Oral -- -- -- -- -- 05/16/22 021 -- -- -- 87 15 97 % [...] Assessment AND Plan Troponinemia, as Type II [place]. It is under the setting of demand [...] docum (more content not included)... 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 Normal [facility] H SUNI Cabrera 05-16-2022 C[employer] Hand Authentication Interface Message Text [facility] ACUTE CARE SURGERY H AND P Gerry Victoria [id number] Consult reason: Concern for acute cholecystitis History (HPI) Gerry Victoria is a 66 year old female with PMH of hypertension, RLS, GERD who presented to critical access hospital with epigastric pain with nausea and vomiting. Patient describes onset of pain on prior day that has increased since then. Shortly after onset of pain, patient experienced nausea and persistent vomiting, now unable to tolerate PO intake. Denies fevers, chills. She presented to [facility] where EKG demonstrated 'hyperacute T waves' in multiple leads without evidence of STEMI. Troponin originally 139, then 381 on repeat. CTA was performed and did not reveal dissection or PE. CT did demonstrate acute inflammation of the gallbladder with a stone at the neck. A central line was placed for resuscitation purposes and the patient was transferred to [facility] for further evaluation. Prior to transfer, lab work without leukocytosis (10.7) and LFTs/Lipase without abnormality. ACS consulted upon arrival to [facility]. PMH: HTN, RLS, GERD, Hypothyroidism, Anxiety [...] RLS, GERD who presents as transfer from [facility] with concern for acute cholecystitis alongside concurrent NSTEMI. Troponin originally 139, then 381 on repeat prior to transfer. Repeat Troponin at [facility] - 706. Cardiology consulted for evaluation [...] impa (more content not included)... Normal [facility] HEPATIC FUNCTION PANELon Albumin [Mass/Vol] 4.0 g/dL Normal 3.4-5.1 [facility] Comment on above: Performed By: #### C H8, HEPATIC #### [facility] [address] [place] [address], ALK 79 IU/L Normal 40-200 [facility] Comment on above: Performed By: #### C H8, HEPATIC #### S PATH[facility]Y LABORATORY [address] [place] [address], ALT [Catalytic activity/Vol] 11 U/L Normal 7-40 [facility] Comment on above: Performed By: #### C H8, HEPATIC #### [facility] [address] [place] [address], AST [Catalytic activity/Vol] 20 U/L Normal 7-40 [facility] Comment on above: Performed By: #### C H8, HEPATIC #### [facility] [address] [place] [address], Bilirubin [Mass/Vol] 0.6 mg/dL Normal 0.1-1.5 [facility] Comment on above: Performed By: #### C H8, HEPATIC #### [facility] [address] [place] [address], Bilirubin.direct [Mass/Vol] 0.13 mg/dL Normal 0.10-0.30 [facility] Comment on above: Performed By: #### C H8, HEPATIC #### [facility] [address] [place] [address], Protein [Mass/Vol] 6.4 g/dL Normal 5.7-8.1 [facility] Comment on above: Performed By: #### C H8, HEPATIC #### [facility] [address] [place], [address] HIGH SENSITIVITY TROPONIN Io n 05-16-2022 HS TROPONIN I 319 ng/L Critically high <=15 [facility] Comment on above: Order Comment: High Sensitivity Cardiac Troponin I (hsTnI) assay has replaced the conventional troponin assay at [facility]. All results are reported in whole numbers representing ng/L. Repeat test times for ruling out acute coronary syndrome (ACS) are every 2 hours instead of every 6-8 hours. Ihlxb-ed-qrrh conventional troponin (I-stat) will remain available in the [facility] [place] [facility] ??? results obtained by different labs [...] H STRP #### [facility] [address] [place], [address] HS TROPONIN I 475 ng/L Critically high <=15 [facility] Comment on above: Order Comment: High Sensitivity Cardiac Troponin I (hsTnI) assay has replaced the conventional troponin assay at [facility].All results are reported in whole numbers representing ng/L.Repeat test times for ruling out acute coronary syndrome (ACS) are every 2 hours instead of every 6-8 hours.Kylbj-cw-xqmk conventional troponin (I-stat) will remain available in the [facility] [place] [facility] ??? results obtained by different labs [...] value in 2 hours depending on risk thikjbwmge21 ng/L or greater??? concern for ACS or [...] H8, HEPATIC #### [facility] [address] [place], [address] HS TROPONIN I 433 ng/L Critically high <=15 [facility] Comment on above: Order Comment: High Sensitivity Cardiac Troponin I (hsTnI) assay has replaced the conventional troponin assay at [facility].All results are reported in whole numbers representing ng/L.Repeat test times for ruling out acute coronary syndrome (ACS) are every 2 hours instead of every 6-8 hours.Ehxos-rx-ozbx conventional troponin (I-stat) will remain available in the [facility] ED ??? results obtained by different [...] value in 2 hours depending on risk [id number] ng/L or greater??? concern for ACS or [...] = 2 points). Performed By: #### H STRSophie ####[facility] [id number] [place], [address] HS TROPONIN I 714 ng/L Critically high <=15 [facility] Comment on above: Order Comment: High Sensitivity Cardiac Troponin I (hsTnI) assay has replaced the conventional troponin assay at [facility].All results are reported in whole numbers representing ng/L.Repeat test times for ruling out acute coronary syndrome (ACS) are every 2 hours instead of every 6-8 hours.Nhqet-bj-rxwi conventional troponin (I-stat) will remain available in the [facility] ED ??? results obtained by different [...] value in 2 hours depending on risk lhqjzuvpne61 ng/L or greater??? concern for ACS or [...] M ADEEL Grullon8 #### S [facility] LABORAT[facility] [address] [place], [address] HS TROPONIN I 706 ng/L Critically high <=15 [facility] Comment on above: Order Comment: High Sensitivity Cardiac Troponin I (hsTnI) assay has replaced the conventional troponin assay at [facility].All results are reported in whole numbers representing ng/L.Repeat test times for ruling out acute coronary syndrome (ACS) are every 2 hours instead of every 6-8 hours.Yevmq-lm-crre conventional troponin (I-stat) will remain available in the [facility] [place] [facility] ??? results obtained by different labs [...] C H8, HEPATIC #### [facility] [address] [place] [address], LACTATE WITH REPEAT EDon CR LACT 1.8 mmol/L Normal 0.5-2.0 [facility] Comment on above: Performed By: #### C H8, HEPATIC #### [facility] [address] [place] [address], PARTIAL THROMBOPLASTIN TIMEo n 05-16-2022 aPTT Coag (Bld) [Time] 55 s High 25-37 [facility] Comment on above: Performed By: #### C H8, HEPATIC #### [facility] [address] [place] [address], PROTHROMBIN TIME AND INRon 0 05-16-2022 INR Coag (PPP) [Relative time] 1.10 {INR} Normal 0.90-1.10 [facility] Comment on above: Performed By: #### C H8, HEPATIC #### [facility] [address] [place] [address], PT Coag (PPP) [Time] 12.4 s Normal 9.7-12.9 [facility] Comment on above: Performed By: #### C H8, HEPATIC #### [facility] [address] [place] [address], Procedureson 05-16-2022 [employer] Hand Authentication Interface Message Text Transthoracic Echocardiographic Report Name: RYLIE GARRETT Interpreting LETITIA ELKINS MD Physician: : 1955 Referring JANNETH SAGE Physician: Age: 66 Hand Paster: Laina Mora [facility] Exam Date: 05/16/2022 Fellow: 11:11 AM CVT: [...] Doctor's order(s) verified. Patient's preferred language is Mozambican . Verbal consent for left heart echo [...] physician) on 05/16/2022 12:03 PM Normal [facility] Progress Noteson 05-16-2022 Cigar [employer]ander Hand Authentication Interface Message Text 2289 notified of critical Troponin value of 475. read back critical results. New orders not received. Normal [facility] Cigar Bander Hand Authentication Interface Message Text [employer] DIVISION OF ACUTE CARE SURGERY ---- GENERAL INFORMATION --- EMERGENCY GENERAL SURGERY NOTE Patient Name: Gerry Victoria Admission Date: 05/16/2022 Patient seen and examined on 05/16/2022 -- INTERVAL HISTORY/EVENTS Background Narrative: Gerry Victoria is a 66 year old female with PMH of hypertension, RLS, GERD, and h/o paroxysmal SVT who presented to critical access hospital with epigastric pain with nausea and vomiting. Patient describes onset of pain on prior day that has increased since then. Shortly after onset of pain, patient experienced nausea and persistent vomiting, now unable to tolerate PO intake. Denies fevers, chills. She presented to [facility] where EKG demonstrated 'hyperacute T waves' in multiple leads without evidence of STEMI. Troponin originally 139, then 381 on repeat. CTA was performed and did not reveal dissection or PE. CT did demonstrate acute inflammation of the gallbladder with a stone at the neck. A central line was placed for resuscitation purposes and the patient was transferred to [facility] for further evaluation. Prior to transfer, lab work without leukocytosis (10.7) and LFTs/Lipase without abnormality. ACS consulted upon arrival to [facility] for cholecystitis. She was admitted to the SDU for telemetry under EGS. Hospital Course/Procedures: 05/16/2022: Transferred from [facility] ED with cholecystitis, up-trending troponin, and [...] fr (more content not included)... Normal [facility] TYPE AND SCREENon 05-16-2022 ABO and Rh group Nom (Bld) Blood group A Rh(D) positive Normal [facility] Comment on above: Performed By: #### T S #### [facility] [address] [place], [place], ABO and Rh group Nom (Bld) No Previous Results Normal [facility] Comment on above: Performed By: #### T S #### [facility] [address] [place], [place], ABSC INT Negative Normal [facility] Comment on above: Performed By: #### T S #### [facility] [address] [place], [place], US LIVER/GALL BLADDER/PANCRE ASon 05-16-2022 US [...] significant biliary dilatation. MACRO: None Normal [facility] XR CHEST 1 VIEW AP OR [...] other acute process. MACRO: None Normal [facility] XR chest 1V portableon 05-16 XR chest 1V portable [facility] [place] [address] XRay Report Signed Patient: Gerry Victoria MR#: [id number] 10 : 1955 Acct:[id number] Age/Sex: 66 / F ADM Date: 05/15/22 Loc: ER Room: Type: [facility] ER Attending Dr: Copies to: [...] Aditya Hodge M.D.05/16/2022 9:24 AM Dictation Location: [place] [address] Transcribed By: [facility] 05/16/22923 Dictated By: Aditya Hodge II, MD 05/16/22922 Signed By: 05/16/22923 Normal [facility] Activated partial thrombopla stin time (aPTT) in platelet poor plasma by coagulation aOrdered By: Keith Griffith on 05-15-2022 aPTT Coag (PPP) [Time] 29.6 s 25.1-36.5 [facility] Albumin [Mass/volume] in Ser um or PlasmaOrdered By: Keith Griffith on 05-15-2022 Albumin [Mass/Vol] 4.4 g/dL 3.2-5.5 [facility] B-Type Natriuretic Peptideon 05-15-2022 Natriuretic peptide B (Bld) [Mass/Vol] 365.0 pg/mL High 5-100 [facility] Comment on above: Result Comment: PERF ORMED BY: [place] [address] PATHOLOGIST SILK BRUSHER WILDER BOTELLO M.D. Performed By: #### B MP, CBC, LIPASE, HEPATIC #### [facility] [address] [place] [address] Bacterial blood cultureOrder ed By: Keith Griffith on 05-15-2022 Bacteria identified Cx Nom (Bld) NO GROWTH 5 DAYS [facility] Basic Metabolic Panelon 04-27 Anion gap [Moles/Vol] 13.5 mmol/L Normal 6.0-15.0 [facility] Comment on above: Performed By: #### B MP, CBC, LIPASE, HEPATIC #### [facility] [address] [place] [address] [place] Calcium [Mass/Vol] 8.9 mg/dL Normal 8.2-10.2 [facility] Comment on above: Performed By: #### B MP, CBC, LIPASE, HEPATIC #### [facility] [address] [place] [id number] [place] Chloride [Moles/Vol] 98 mmol/L Normal 95-114 [facility] Comment on above: Performed By: #### B MP, CBC, LIPASE, HEPATIC #### [facility] [address] CO2 [Moles/Vol] 25.7 mmol/L Normal 22.0-30.0 [facility] Comment on above: Performed By: #### B MP, CBC, LIPASE, HEPATIC #### [facility] [address] Creatinine [Mass/Vol] 0.98 mg/dL Normal 0.44-1.03 [facility] Comment on above: Performed By: #### B MP, CBC, LIPASE, HEPATIC #### [facility] [address] Creatinine Clr Calc Pharmacy 51.97 [facility] Comment on above: Performed By: #### B MP, CBC, LIPASE, HEPATIC #### [facility] [address] Estimated GFR ( Unique > 60 [facility] Comment on above: Result Comment: GFR estimated reference range: According to KDOQI guidelines, <60 ml/min/1.73m2 is sufficient to diagnose a patient with chronic kidney disease. Performed By: #### B MP, CBC, LIPASE, HEPATIC #### [facility] [address] Estimated GFR (Non- Am 56 [facility] Comment on above: Performed By: #### B MP, CBC, LIPASE, HEPATIC #### [facility] [address] Glucose [Mass/Vol] 126 mg/dL High 70-100 [facility] Comment on above: Result Comment: [place] om Glucose Reference Range is dependent on time and content of last meal. Glucose of more than 200 mg/dL in a nonstressed, ambulatory subject supports the diagnosis of Diabetes Mellitus. ADA recommended reference range Performed By: #### B MP, CBC, LIPASE, HEPATIC #### [facility] [address] Potassium [Moles/Vol] 3.2 mmol/L Low 3.5-5.1 [facility] Comment on above: Performed By: #### B MP, CBC, LIPASE, HEPATIC #### [facility] [address] [place] [address] [place] Sodium [Moles/Vol] 134 mmol/L Low 136-146 [facility] Comment on above: Performed By: #### B MP, CBC, LIPASE, HEPATIC #### [facility] [address] [place] [address] [place] Urea nitrogen [Mass/Vol] 7 mg/dL Low 9-23 [facility] Comment on above: Performed By: #### B MP, CBC, LIPASE, HEPATIC #### [facility] [address] [place] [address] [place] Basophils Auto (Bld) [#/Vol] Ordered By: Keith Griffith on 05-15-2022 Basophils (Bld) [#/Vol] 0.1 10*3/uL 0.0-0.2 [facility] Basophils/100 WBC Auto (Bld) Ordered By: Keith Griffith on 05-15-2022 Basophils/100 WBC (Bld) 0.6 % . [facility] Bilirubin Test strip Ql (U)O rdered By: Keith Griffith on 05-15-2022 Bilirubin Ql (U) Negative Negative [facility] CT abdomen pelvis w conon CT abdomen pelvis w con [facility] [place] [address] [place] [address] CT Scan Report Signed Patient: Gerry Victoria MR#: [id number] 10 : 1955 Acct:[id number] Age/Sex: 66 / F ADM Date: 05/15/22 Loc: ER Room: Type: [facility] ER Attending Dr: Copies to: Keith [...] ? Impression dictated by: Nicholas Ann Jr., D.O.05/15/2022 6:59 PM Dictation Location: [place] [address] Transcribed By: [facility] 05/15/221858 Dictated By: Nicholas Ann Jr, DO 05/15/221854 Signed By: 05/15/221858 Normal [facility] Color Auto (U)Ordered By: George Griffith on 05-15-2022 Color (U) Yellow Yellow [facility] Complete Blood Count Auto Di ffon 05-15-2022 Basophils (Bld) [#/Vol] 0.1 10*3/uL Normal 0.0-0.2 [facility] Comment on above: Result Comment: PERF ORMED BY: [place] [address] PATHOLOGIST SILK BRUSHER WILDER BOTELLO M.D. Performed By: #### B MP, CBC, LIPASE, HEPATIC #### [address] Basophils/100 WBC (Bld) 0.6 % Normal . [facility] Comment on above: Performed By: #### B MP, CBC, LIPASE, HEPATIC #### [address] Eosinophils (Bld) [#/Vol] 0.0 10*3/uL Normal 0.0-0.45 [facility] Comment on above: Performed By: #### B MP, CBC, LIPASE, HEPATIC #### [address] Eosinophils/100 WBC (Bld) 0.3 % Normal . [facility] Comment on above: Performed By: #### B MP, CBC, LIPASE, HEPATIC #### [address] Erythrocyte distribution width (RBC) [Ratio] 15.2 % Normal 11.9-15.3 [facility] Comment on above: Performed By: #### B MP, CBC, LIPASE, HEPATIC #### [address] Hematocrit (Bld) [Volume fraction] 42.8 % Normal 34.0-46.4 [facility] Comment on above: Performed By: #### B MP, CBC, LIPASE, HEPATIC #### [address] Hemoglobin (Bld) [Mass/Vol] 14.1 g/dL Normal 11.8-15.4 [facility] Comment on above: Performed By: #### B MP, CBC, LIPASE, HEPATIC #### [address] Lymphocytes (Bld) [#/Vol] 0.9 10*3/uL Low 1.00-4.8 [facility] Comment on above: Performed By: #### B MP, CBC, LIPASE, HEPATIC #### [facility] [address] Lymphocytes/100 WBC (Bld) 8.6 % Normal . [facility] Comment on above: Performed By: #### B MP, CBC, LIPASE, HEPATIC #### [facility] [address] MCH (RBC) [Entitic mass] 27.4 pg Normal 24.7-34.3 [facility] Comment on above: Performed By: #### B MP, CBC, LIPASE, HEPATIC #### [address] MCV (RBC) [Entitic vol] 83.0 fL Normal 80-100 [facility] Comment on above: Performed By: #### B MP, CBC, LIPASE, HEPATIC #### [address] Mean Corpuscular HGB Conc 33.0 g/dL Normal 32.0-35.0 [facility] Comment on above: Performed By: #### B MP, CBC, LIPASE, HEPATIC #### [address] Monocytes (Bld) [#/Vol] 0.5 10*3/uL Normal 0.0-0.8 [facility] Comment on above: Performed By: #### B MP, CBC, LIPASE, HEPATIC #### [address] Monocytes/100 WBC (Bld) 15.42 % Normal 0.00-20.00 [facility] Comment on above: Performed By: #### B MP, CBC, LIPASE, HEPATIC #### [place] [address] [place] Monocytes/100 WBC (Bld) 4.2 % Normal . [facility] Comment on above: Performed By: #### B MP, CBC, LIPASE, HEPATIC #### [address] Neutrophils (Bld) [#/Vol] 9.3 10*3/uL High 1.8-7.7 [facility] Comment on above: Performed By: #### B MP, CBC, LIPASE, HEPATIC #### [address] Neutrophils/100 WBC (Bld) 86.3 % Normal . [facility] Comment on above: Performed By: #### B MP, CBC, LIPASE, HEPATIC #### [address] NRBC% 0.1 /100{WBC} Normal 0-0.5 [facility] Comment on above: Performed By: #### B MP, CBC, LIPASE, HEPATIC #### [address] Platelet mean volume (Bld) [Entitic vol] 7.6 fL Normal 6.3-10.7 [facility] Comment on above: Performed By: #### B MP, CBC, LIPASE, HEPATIC #### [address] Platelets (Bld) [#/Vol] 332 10*3/uL Normal 150-450 [facility] Comment on above: Performed By: #### B MP, CBC, LIPASE, HEPATIC #### [address] RBC (Bld) [#/Vol] 5.16 10*6/uL High 3.60-5.00 [facility] Comment on above: Performed By: #### B MP, CBC, LIPASE, HEPATIC #### [address] WBC (Bld) [#/Vol] 10.7 10*3/uL Normal 3.8-11.6 [facility] Comment on above: Performed By: #### B MP, CBC, LIPASE, HEPATIC #### [address] Creatine Kinaseon 05-15-2022 CK [Catalytic activity/Vol] 94 U/L Normal 22-269 [facility] Comment on above: Performed By: #### B MP, CBC, LIPASE, HEPATIC #### [address] [place] [address] [facility] Creatine kinase [Enzymatic a ctivity/volume] in Serum or PlasmaOrdered By: Keith Griffith on 05-15-2022 CK [Catalytic activity/Vol] 94 U/L 22-269 [facility] Creatine kinase.MB [Mass/vol ume] in Serum or PlasmaOrdered By: Keith Griffith on 05-15-2022 CK.MB [Mass/Vol] 3.1 ng/mL 0.6-6.3 [facility] Creatinine Kinase MBon 05-15 CK.MB [Mass/Vol] 3.1 ng/mL Normal 0.6-6.3 [facility] Comment on above: Performed By: #### B MP, CBC, LIPASE, HEPATIC #### [facility] [address] [place] [id number] [facility] CKMB Relative Index 3.2 % High 0.00-2.50 [facility] Comment on above: Performed By: #### B MP, CBC, LIPASE, HEPATIC #### [facility] [address] [place] [id number] [facility] Creatinine and Glomerular fi ltration rate.predicted panel (S/P/Bld)Ordered By: Keith Griffith on 05-15-2022 Creatinine [Mass/Vol] 0.98 mg/dL 0.44-1.03 [facility] Direct bilirubin measurement Ordered By: Keith Griffith on 05-15-2022 Bilirubin.direct [Mass/Vol] 0.1 mg/dL 0.0-0.4 [facility] ECG 12 lead ECGon 05-15-2022 ECG 12 lead ECG [facility] Main [place] [address] [place], [place] [id number] Electrocardiograph Report Signed Patient: Gerry Victoria MR#: [id number] 10 : 1955 Acct:[id number] Age/Sex: 66 / F ADM Date: 05/15/22 Loc: ER Room: Type: [facility] ER Attending Dr: Ordering Provider: Keith Griffith [...] AVF, V3-V6 Confirmed by Connie Cote DO ([id number]) on 05/16/2022 7:08:50 AM Referred By: Electronically Signed By:Connie Cote DO Transcribed By: MUS Signed By Connie Cote DO 0708 [facility] ECG 12 [place] [address] Electrocardiograph Report Signed Patient: Gerry Victoria MR#: [id number] 10 : 1955 Acct:[id number] Age/Sex: 66 / F ADM Date: 05/15/22 Loc: ER Room: Type: [facility] ER Attending Dr: Ordering Provider: Keith Griffith [...] and V3-V6 Confirmed by Connie Cote DO ([id number]) on 05/16/2022 7:09:34 AM Referred By: Electronically Signed By:Connie Cote DO Transcribed By: MUS Signed By Connie Cote DO 0709 [facility] ECG 12 lead ECG [facility] Main [place] [id number] Electrocardiograph Report Signed Patient: Gerry Victoria MR#: [id number] 10 : 1955 Acct:[id number] Age/Sex: 66 / F ADM Date: 05/15/22 Loc: ER Room: Type: [facility] ER Attending Dr: Ordering Provider: Keith Griffith [...] sinus rhythm Confirmed by Connie Cote DO ([id number]) on 05/16/2022 7:09:47 AM Referred By: Electronically Signed By:Connie Cote DO Transcribed By: MUS Signed By Connie Cote DO [id number] Normal [facility] Eosinophils Auto (Bld) [#/Vo l]Ordered By: Keith Griffith on 05-15-2022 Eosinophils (Bld) [#/Vol] 0.0 10*3/uL 0.0-0.45 [facility] Eosinophils/100 WBC Auto (Bl d)Ordered By: Keith Griffith on 05-15-2022 Eosinophils/100 WBC (Bld) 0.3 % . [facility] Erythrocyte distribution wid th Auto (RBC) [Ratio]Ordered By: Keith Griffith on 05-15-2022 Erythrocyte distribution width (RBC) [Ratio] 15.2 % 11.9-15.3 [facility] Estimated glomerular filtrat ion rate (GFR) non- AmericanOrdered By: Keith Griffith on 05-15-2022 GFR/1.73 sq M.predicted among non-blacks MDRD (S/P/Bld) [Vol rate/Area] 56 mL/Min [facility] Globulin Calc (S) [Mass/Vol] Ordered By: Keith Griffith on 05-15-2022 Globulin (S) [Mass/Vol] 3.6 g/dL [facility] Hematocrit Auto (Bld) [Volum e fraction]Ordered By: Keith Griffith on 05-15-2022 Hematocrit (Bld) [Volume fraction] 42.8 % 34.0-46.4 [facility] Hemoglobin [Mass/volume] in BloodOrdered By: Keith Griffith on 05-15-2022 Hemoglobin (Bld) [Mass/Vol] 14.1 g/dL 11.8-15.4 [facility] Hepatic Panelon 05-15-2022 Albumin [Mass/Vol] 4.4 g/dL Normal 3.2-5.5 [facility] Comment on above: Performed By: #### B MP, CBC, LIPASE, HEPATIC #### [facility] [address] Albumin/Globulin [Mass ratio] 1.2 {ratio} Normal [facility] Comment on above: Performed By: #### B MP, CBC, LIPASE, HEPATIC #### [facility] [address] ALP [Catalytic activity/Vol] 92 U/L Normal 32-92 [facility] Comment on above: Performed By: #### B MP, CBC, LIPASE, HEPATIC #### [facility] [address] ALT [Catalytic activity/Vol] 17 U/L Normal 10-60 [facility] Comment on above: Performed By: #### B MP, CBC, LIPASE, HEPATIC #### [facility] [address] AST [Catalytic activity/Vol] 26 U/L Normal 10-42 [facility] Comment on above: Performed By: #### B MP, CBC, LIPASE, HEPATIC #### [facility] [address] Bilirubin [Mass/Vol] 0.6 mg/dL Normal 0.3-1.2 [facility] Comment on above: Performed By: #### B MP, CBC, LIPASE, HEPATIC #### [facility] [address] [place] [address] [place] Bilirubin,Indirect 0.5 mg/dL Normal [facility] Comment on above: Performed By: #### B MP, CBC, LIPASE, HEPATIC #### [facility] [address] Bilirubin.indirect [Mass/Vol] 0.1 mg/dL Normal 0.0-0.4 [facility] Comment on above: Performed By: #### B MP, CBC, LIPASE, HEPATIC #### [facility] [address] Globulin (S) [Mass/Vol] 3.6 g/dL Normal [facility] Comment on above: Performed By: #### B MP, CBC, LIPASE, HEPATIC #### [facility] [address] Protein [Mass/Vol] 8.0 g/dL High 6.1-7.9 [facility] Comment on above: Performed By: #### B MP, CBC, LIPASE, HEPATIC #### [facility] [address] Ketones Auto test strip (U) [Mass/Vol]Ordered By: Keith Griffith on 05-15-2022 Ketones (U) [Mass/Vol] Negative Negative [facility] Laboratory - Chemistry and C hemistry - challengeOrdered By: Keith Griffith on 05-15-2022 Lipase [Catalytic activity/Vol] 23.0 U/L 22-51 [facility] Natriuretic peptide B (Bld) [Mass/Vol] 365.0 pg/mL 5-100 [facility] Laboratory - CoagulationOrde red By: Keith Griffith on 05-15-2022 PT Coag (PPP) [Time] 10.7 s 9.0-12.9 [facility] Lactic Acidon 05-15-2022 Lactate [Moles/Vol] 1.5 mmol/L Normal 0.5-2.2 [facility] Comment on above: Result Comment: PERF ORMED BY: [place] [address] PATHOLOGIST SILK BRUSHER WILDER BOTELLO M.D. Performed By: #### B MP, CBC, LIPASE, HEPATIC #### [facility] [address] Leukocytes [#/volume] correc poly for nucleated erythrocytes in Blood by Automated counOrdered By: Keith Griffith on 05-15-2022 WBC corrected for nucl RBC Auto (Bld) [#/Vol] 10.7 10*3/uL 3.8-11.6 [facility] Lipaseon 05-15-2022 Lipase [Catalytic activity/Vol] 23.0 U/L Normal 22-51 [facility] Comment on above: Result Comment: PERF ORMED BY: [place] [address] PATHOLOGIST SILK BRUSHER WILDER BOTELLO M.D. Performed By: #### B MP, CBC, LIPASE, HEPATIC #### [facility] [address] Lymphocytes Auto (Bld) [#/Vo l]Ordered By: Keith Griffith on 05-15-2022 Lymphocytes (Bld) [#/Vol] 0.9 10*3/uL 1.00-4.8 [facility] Lymphocytes/100 WBC Auto (Bl d)Ordered By: Keith Griffith on 05-15-2022 Lymphocytes/100 WBC (Bld) 8.6 % . [facility] MCH Auto (RBC) [Entitic mass ]Ordered By: Keith Griffith on 05-15-2022 MCH (RBC) [Entitic mass] 27.4 pg 24.7-34.3 [facility] MCHC Auto (RBC) [Mass/Vol]Or dered By: Keith Griffith on 05-15-2022 MCHC (RBC) [Mass/Vol] 33.0 g/dL 32.0-35.0 [facility] MCV Auto (RBC) [Entitic vol] Ordered By: Keith Griffith on 05-15-2022 MCV (RBC) [Entitic vol] 83.0 fL 80-100 [facility] Monocyte distribution width [Entitic volume] in Blood by AutomatedOrdered By: Keith Griffith on 05-15-2022 Monocyte distribution width Auto (Bld) [Entitic vol] 15.42 % 0.00-20.00 [facility] Monocytes Auto (Bld) [#/Vol] Ordered By: Keith Griffith on 05-15-2022 Monocytes (Bld) [#/Vol] 0.5 10*3/uL 0.0-0.8 [facility] Monocytes/100 WBC Auto (Bld) Ordered By: Keith Griffith on 05-15-2022 Monocytes/100 WBC (Bld) 4.2 % . [facility] Neutrophils Auto (Bld) [#/Vo l]Ordered By: Keith Griffith on 05-15-2022 Neutrophils (Bld) [#/Vol] 9.3 10*3/uL 1.8-7.7 [facility] Neutrophils/100 WBC Auto (Bl d)Ordered By: Keith Griffith on 05-15-2022 Neutrophils/100 WBC (Bld) 86.3 % . [facility] Nitrite Test strip Ql (U)Ord ered By: Keith Griffith on 05-15-2022 Nitrite Ql (U) Negative Negative [facility] No Panel InformationOrdered By: Keith Griffith on 05-15-2022 Estimated GFR () > 60 mL/Min [facility] Comment on above: GFR estimated refere nce range: According to KDOQI guidelines, <60 ml/min/1.73m2 is sufficient to diagnose a patient with chronic kidney disease. Pharmacy Creatinine Clearance (Chem 51.97 [facility] Nucleated erythrocytes [Pres ence] in Blood by Automated countOrdered By: Keith Griffith on 05-15-2022 Nucleated RBC Auto Ql (Bld) 0.1 /100{WBC} 0-0.5 [facility] Partial Thromboplastin Timeo n 05-15-2022 aPTT Coag (Bld) [Time] 29.6 s Normal 25.1-36.5 [facility] Comment on above: Result Comment: PERF ORMED BY: [place] [address] PATHOLOGIST SILK BRUSHER WILDER BOTELLO M.D. Performed By: #### B MP, CBC, LIPASE, HEPATIC #### [address] Platelet mean volume Auto (B ld) [Entitic vol]Ordered By: Keith Griffith on 05-15-2022 Platelet mean volume (Bld) [Entitic vol] 7.6 fL 6.3-10.7 [facility] Platelet poor plasma interna tional normalized ratio (INR) by coagulation assay (relatOrdered By: Keith Griffith on 05-15-2022 INR Coag (PPP) [Relative time] 0.9 {INR} [facility] Comment on above: INR Therapeutic Rang [...] 05-15-2022 Platelets (Bld) [#/Vol] 332 10*3/uL 150-450 [facility] Protein Auto test strip (U) [Mass/Vol]Ordered By: Keith Griffith on 05-15-2022 Protein (U) [Mass/Vol] Negative Negative Fi [facility] Protein [Mass/volume] in Ser um or PlasmaOrdered By: Keith Griffith on 05-15-2022 Protein [Mass/Vol] 8.0 g/dL 6.1-7.9 [facility] Prothrombin Time INRon 05-15 INR Coag (PPP) [Relative time] 0.9 {INR} Normal [facility] Comment on above: Result Comment: INR [...] #### B MP, CBC, LIPASE, HEPATIC #### [facility] [address] [place] [address] [place] PT Coag (PPP) [Time] 10.7 s Normal 9.0-12.9 [facility] Comment on above: Performed By: #### B MP, CBC, LIPASE, HEPATIC #### [facility] [address] [place] [address] [place] RBC Auto (Bld) [#/Vol]Ordere d By: Keith Griffith on 05-15-2022 RBC (Bld) [#/Vol] 5.16 10*6/uL 3.60-5.00 [facility] Serum or plasma alanine kirkpatrick otransferase measurement without P-5'-P (enzymatic activiOrdered By: Keith Griffith on 05-15-2022 ALT No additional P-5'-P [Catalytic activity/Vol] 17 U/L 10-60 [facility] Serum or plasma albumin/glob ulin mass ratioOrdered By: Keith Griffith on 05-15-2022 Albumin/Globulin [Mass ratio] 1.2 {ratio} [facility] Serum or plasma alkaline kami sphatase measurement (enzymatic activity/volume)Ordered By: Keith Griffith on 05-15-2022 ALP [Catalytic activity/Vol] 92 U/L 32-92 [facility] Serum or plasma anion gap de terminationOrdered By: Keith Griffith on 05-15-2022 Anion gap [Moles/Vol] 13.5 mmol/L 6.0-15.0 [facility] Serum or plasma aspartate am inotransferase measurement (enzymatic activity/volume)Ordered By: Keith Griffith on 05-15-2022 AST [Catalytic activity/Vol] 26 U/L 10-42 [facility] Serum or plasma calcium ventura urement (mass/volume)Ordered By: Keith Griffith on 05-15-2022 Calcium [Mass/Vol] 8.9 mg/dL 8.2-10.2 [facility] Serum or plasma chloride alfie surement (moles/volume)Ordered By: Keith Griffith on 05-15-2022 Chloride [Moles/Vol] 98 mmol/L 95-114 [facility] Serum or plasma creatine kin ase MB (CKMB)/total creatine kinase (CK) ratio by calculaOrdered By: Keith Griffith on 05-15-2022 CK.MB Calc [Catalytic fraction] 3.2 % 0.00-2.50 [facility] Serum or plasma glucose ventura urement (mass/volume)Ordered By: Keith Griffith on 05-15-2022 Glucose [Mass/Vol] 126 mg/dL 70-100 [facility] Comment on above: ADA recommended refe rence rangeRandom Glucose Reference Range is dependent on time and content of last meal. Glucose of more than 200 mg/dL in a nonstressed, ambulatory subject supports the diagnosis of Diabetes Mellitus. Serum or plasma non-glucuron idated bilirubin measurement (mass/volume)Ordered By: Keith Griffith on 05-15-2022 Bilirubin.indirect [Mass/Vol] 0.5 mg/dL [facility] Serum or plasma potassium me asurement (moles/volume)Ordered By: Keith Griffith on 05-15-2022 Potassium [Moles/Vol] 3.2 mmol/L 3.5-5.1 [facility] Serum or plasma sodium measu rement (moles/volume)Ordered By: Keith Griffith on 05-15-2022 Sodium [Moles/Vol] 134 mmol/L 136-146 [facility] Serum or plasma total biliru bin measurement (mass/volume)Ordered By: Keith Griffith on 05-15-2022 Bilirubin [Mass/Vol] 0.6 mg/dL 0.3-1.2 [facility] Serum or plasma total carbon dioxide measurement (moles/volume)Ordered By: Keith Griffith on 05-15-2022 CO2 [Moles/Vol] 25.7 mmol/L 22.0-30.0 [facility] Serum or plasma urea nitroge n measurement (mass/volume)Ordered By: Keith Griffith on 05-15-2022 Urea nitrogen [Mass/Vol] 7 mg/dL 9-23 [facility] Specific gravity Auto test s trip (U) [Rel density]Ordered By: Keith Griffith on 05-15-2022 Specific gravity (U) [Rel density] 1.045 1.001-1.03 0 [facility] Troponin I High Sensitivityo n 05-15-2022 Troponin I High Sensitivity 381 pg/mL Off scale high 0-15 [facility] Comment on above: Result Comment: Crit ical value result called at 2153 on 05/15/22 PERFORMED BY: [facility] [address] [place] [address] PATHOLOGIST SILK BRUSHER WILDER BOTELLO M.D. Performed By: #### H S TROP #### [facility] [address] [place] [id number] [place] Troponin I High Sensitivity 139 pg/mL Off scale high 0-15 [facility] Comment on above: Result Comment: Crit ical value result called at 1908 on 05/15/22 PERFORMED BY: [place] [address] PATHOLOGIST SILK BRUSHER WILDER BOTELLO M.D. Performed By: #### B MP, CBC, LIPASE, HEPATIC #### [facility] [address] Troponin I.cardiac [Mass/vol ume] in Serum or Plasma by High sensitivity methodOrdered By: Keith Griffith on 05-15-2022 Troponin I.cardiac High sensitivity method [Mass/Vol] 381 pg/mL 0-15 [facility] Comment on above: Critical valueresult calledat 2153 on 05/15/22 Urinalysison 05-15-2022 Appearance (U) Clear Normal Clear [facility] Comment on above: Order Comment: Name Collection Type:: Straight Catheter Performed By: #### B MP, CBC, LIPASE, HEPATIC #### [facility] [address] [place] [address] [place] Bilirubin,Urine Negative Normal Negative [facility] Comment on above: Order Comment: Name Collection Type:: Straight Catheter Performed By: #### B MP, CBC, LIPASE, HEPATIC #### [facility] [address] [place] [address] [place] Color (U) Yellow Normal Yellow [facility] Comment on above: Order Comment: Name Collection Type:: Straight Catheter Performed By: #### B MP, CBC, LIPASE, HEPATIC #### [facility] [address] [place] [address] [place] Glucose Ql (U) Normal Normal Normal [facility] Comment on above: Order Comment: Name Collection Type:: Straight Catheter Performed By: #### B MP, CBC, LIPASE, HEPATIC #### [facility] [address] [place] [address] [place] Ketones Ql (U) Negative Normal Negative [facility] Comment on above: Order Comment: Name Collection Type:: Straight Catheter Performed By: #### B MP, CBC, LIPASE, HEPATIC #### [address] Leukocyte esterase Test strip Ql (U) Negative Normal Negative [facility] Comment on above: Order Comment: Name Collection Type:: Straight Catheter Performed By: #### B MP, CBC, LIPASE, HEPATIC #### [address] Nitrite,Urine Negative Normal Negative [facility] Comment on above: Order Comment: Name Collection Type:: Straight Catheter Performed By: #### B MP, CBC, LIPASE, HEPATIC #### [address] Occult Blood,Urine Negative Normal Negative [facility] Comment on above: Order Comment: Name Collection Type:: Straight Catheter Result Comment: PERF ORMED BY: [place] [address] PATHOLOGIST SILK BRUSHER WILDER BOTELLO M.D. Performed By: #### B MP, CBC, LIPASE, HEPATIC #### [address] pH (U) 7.0 [pH] Normal 5.0-9.0 [facility] Comment on above: Order Comment: Name Collection Type:: Straight Catheter Performed By: #### B MP, CBC, LIPASE, HEPATIC #### [address] Protein,Urine Negative Normal Negative [facility] Comment on above: Order Comment: Name Collection Type:: Straight Catheter Performed By: #### B MP, CBC, LIPASE, HEPATIC #### [address] Specificy Banks,Urine 1.045 High 1.001-1.03 0 [facility] Comment on above: Order Comment: Name Collection Type:: Straight Catheter Performed By: #### B MP, CBC, LIPASE, HEPATIC #### [address] Urobilinogen,Urine Normal Normal Normal [facility] Comment on above: Order Comment: Name Collection Type:: Straight Catheter Performed By: #### B MP, CBC, LIPASE, HEPATIC #### [facility] [address] [place] [id number] [place] Urine clarity by refractomet ry automatedOrdered By: Keith Griffith on 05-15-2022 Clarity Refractometry automated (U) Clear Clear [facility] Urine glucose measurement by automated test strip (mass/volume)Ordered By: Keith Griffith on 05-15-2022 Glucose Auto test strip (U) [Mass/Vol] Normal mg/dL Normal [facility] Urine hemoglobin detection b y automated test stripOrdered By: Keith Griffith on 05-15-2022 Hemoglobin Auto test strip Ql (U) Negative Negative [facility] Urine lactic acid measuremen tOrdered By: Keith Griffith on 05-15-2022 Lactate (U) [Moles/Vol] 1.5 mmol/L 0.5-2.2 [facility] Urine leukocyte esterase det ection by automated test stripOrdered By: Keith Griffith on 05-15-2022 Leukocyte esterase Auto test strip Ql (U) Negative Negative [facility] Urobilinogen Auto test strip (U) [Mass/Vol]Ordered By: Keith Griffith on 05-15-2022 Urobilinogen (U) [Mass/Vol] Normal mg/dL Normal [facility] WBC Auto (Bld) [#/Vol]Ordere d By: Keith Griffith on 05-15-2022 WBC (Bld) [#/Vol] 10.7 10*3/uL 3.8-11.6 [facility] XR chest 1V portableon 05-15 XR chest 1V portable [facility] [address] [place] [address] [place] [id number] XRay Report Signed Patient: Gerry Victoria MR#: [id number] 10 : 1955 Acct:[id number] Age/Sex: 66 / F ADM Date: 05/15/22 [...] Ann Jr., D.O.05/15/2022 5:33 PM Dictation Location: [place] [address] Transcribed By: [facility] 05/15/221732 Dictated By: Nicholas Ann Jr, DO 05/15/221731 Signed By: 05/15/221732 Normal [facility] pH Auto test strip (U)Ordere d By: Keith Griffith on 05-15-2022 pH (U) 7.0 [pH] 5.0-9.0 [facility] XR wrist LT min 3V*on 2022 XR wrist LT min 3V* [facility] [place] [address] XRay Report Signed Patient: Gerry Victoria MR#: [id number] 10 : 1955 Acct:[id number] Age/Sex: 66 / F ADM Date: 04/06/22 Loc: ICXD Room: Type: [facility] Attending Dr: Ephraim Casanova APRN Copies to: Ephraim Casanova APRN - EPHRAIM TITUS RN, MSN Ordering Provider: EPHRAIM CASANOVA RN, MSN Date of Service: 04/06/22 XR/XR wrist LT min 3V*: radiculopathy;Left wrist pain ([id number]) XR/XR cervical spine 5V*: radiculopathy;Cervical radiculopathy CERVICAL [...] PROCESS. Impression dictated by: Nicholas Ann Jr., D.O.04/06/2022 4:20 PM Dictation Location: [place] [address] Transcribed By: [facility] 04/06/22 162 Dictated By: Nicholas Ann Jr, DO 04/06/22 1618 Signed By: 04/06/22 162 Normal [facility] Basophils Auto (Bld) [#/Vol] Ordered By: Ward Zuniga on 01-03-2022 Basophils (Bld) [#/Vol] 0.0 10*3/uL 0.0-0.2 [facility] Basophils/100 WBC Auto (Bld) Ordered By: Ward Zuniga on 01-03-2022 Basophils/100 WBC (Bld) 0.9 % . [facility] Blood hemoglobin measurement (mass/volume)Ordered By: Ward Zuniga on 01-03-2022 Hemoglobin (Bld) [Mass/Vol] 11.2 g/dL 11.8-15.4 [facility] Blood leukocytes automated c ount (number/volume)Ordered By: Ward Zuniga on 01-03-2022 WBC (Bld) [#/Vol] 4.8 10*3/uL 4.5-11.0 [facility] Body fluid albumin measureme nt (mass/volume)Ordered By: Ward Zuniga on 01-03-2022 Albumin (Body fld) [Mass/Vol] 3.6 g/dL 3.2-5.5 [facility] Cholesterol [Mass/volume] in Serum or PlasmaOrdered By: Ward Znuiga on 01-03-2022 Cholesterol [Mass/Vol] 186 mg/dL 140-200 [facility] Comment on above: Chol less than 200 m g/dl low riskChol 201-239 mg/dl borderline riskChol 240 mg/dl and greater high risk Cholesterol in LDL Calc [Mas s/Vol]Ordered By: Ward Zuniga on 01-03-2022 Cholesterol in LDL [Mass/Vol] 117 mg/dL 0-100 [facility] Comment on above: LDL ATP III CLASSIFI CATIONLDL less than 100 mg/dL OptimalLDL 100-129 mg/dL Near or above optimalLDL 130-159 mg/dL Borderline highLDL 160-189 mg/dL HighLDL greater than 189 mg/dL Very high Cholesterol in VLDL Calc [Ma ss/Vol]Ordered By: Ward Zuniga on 01-03-2022 Cholesterol in VLDL [Mass/Vol] 18 mg/dL [facility] Creatinine and Glomerular fi ltration rate.predicted panel (S/P/Bld)Ordered By: Ward Zuniga on 01-03-2022 Creatinine [Mass/Vol] 0.91 mg/dL 0.44-1.03 [facility] Eosinophils Auto (Bld) [#/Vo l]Ordered By: Ward Zuniga on 01-03-2022 Eosinophils (Bld) [#/Vol] 0.1 10*3/uL 0.0-0.45 [facility] Eosinophils/100 WBC Auto (Bl d)Ordered By: Ward Zuniga on 01-03-2022 Eosinophils/100 WBC (Bld) 2.6 % . [facility] Erythrocyte distribution wid th Auto (RBC) [Ratio]Ordered By: Ward Zuniga on 01-03-2022 Erythrocyte distribution width (RBC) [Ratio] 14.4 % 11.9-15.3 [facility] Estimated glomerular filtrat ion rate (GFR) non- AmericanOrdered By: Ward Zuniga on 01-03-2022 GFR/1.73 sq M.predicted among non-blacks MDRD (S/P/Bld) [Vol rate/Area] > 60 mL/Min [facility] Globulin Calc (S) [Mass/Vol] Ordered By: Ward Zuniga on 01-03-2022 Globulin (S) [Mass/Vol] 2.5 g/dL [facility] Hematocrit Auto (Bld) [Volum e fraction]Ordered By: Ward Zuniga on 01-03-2022 Hematocrit (Bld) [Volume fraction] 34.5 % 34.0-46.4 [facility] Laboratory - Hematology and Cell countsOrdered By: Ward Zuniga on 01-03-2022 Nucleated RBC/100 WBC (Bld) [Ratio] 0.1 % 0-0.5 [facility] Lymphocytes Auto (Bld) [#/Vo l]Ordered By: Wadr Zuniga on 01-03-2022 Lymphocytes (Bld) [#/Vol] 1.6 10*3/uL 1.00-4.8 [facility] Lymphocytes/100 WBC Auto (Bl d)Ordered By: Ward Zuniga on 01-03-2022 Lymphocytes/100 WBC (Bld) 33.6 % . [facility] MCH Auto (RBC) [Entitic mass ]Ordered By: Ward Zuniga on 01-03-2022 MCH (RBC) [Entitic mass] 26.9 pg 24.7-34.3 [facility] MCHC Auto (RBC) [Mass/Vol]Or dered By: Ward Zuniga on 01-03-2022 MCHC (RBC) [Mass/Vol] 32.6 g/dL 32.0-35.0 [facility] MCV Auto (RBC) [Entitic vol] Ordered By: Ward Zuniga on 01-03-2022 MCV (RBC) [Entitic vol] 82.4 fL 80-100 [facility] Monocytes Auto (Bld) [#/Vol] Ordered By: Ward Zuniga on 01-03-2022 Monocytes (Bld) [#/Vol] 0.4 10*3/uL 0.0-0.8 [facility] Monocytes/100 WBC Auto (Bld) Ordered By: Ward Zuniga on 01-03-2022 Monocytes/100 WBC (Bld) 7.5 % . [facility] Neutrophils Auto (Bld) [#/Vo l]Ordered By: Ward Zuniga on 01-03-2022 Neutrophils (Bld) [#/Vol] 2.6 10*3/uL 1.8-7.7 [facility] Neutrophils/100 WBC Auto (Bl d)Ordered By: Ward Zuniga on 01-03-2022 Neutrophils/100 WBC (Bld) 55.4 % . [facility] No Panel InformationOrdered By: Ward Zuniga on 01-03-2022 Estimated GFR () > 60 mL/Min [facility] Comment on above: GFR estimated refere nce range: According to KDOQI guidelines, <60 ml/min/1.73m2 is sufficient to diagnose a patient with chronic kidney disease. Pharmacy Creatinine Clearance (Chem N/A [facility] Platelet mean volume Auto (B ld) [Entitic vol]Ordered By: Ward Zuniga on 01-03-2022 Platelet mean volume (Bld) [Entitic vol] 7.5 fL 6.3-10.7 [facility] Platelets Auto (Bld) [#/Vol] Ordered By: Ward Zuniga on 01-03-2022 Platelets (Bld) [#/Vol] 288 10*3/uL 150-450 [facility] Protein [Mass/volume] in Ser um or PlasmaOrdered By: Ward Zuniga on 01-03-2022 Protein [Mass/Vol] 6.1 g/dL 6.1-7.9 [facility] RBC Auto (Bld) [#/Vol]Ordere d By: Ward Zuniga on 01-03-2022 RBC (Bld) [#/Vol] 4.18 10*6/uL 3.60-5.00 [facility] Serum or plasma alanine kirkpatrick otransferase measurement without P-5'-P (enzymatic activiOrdered By: Ward Zuniga on 01-03-2022 ALT No additional P-5'-P [Catalytic activity/Vol] 12 U/L [facility] Serum or plasma albumin/glob ulin mass ratioOrdered By: Ward Zuniga on 01-03-2022 Albumin/Globulin [Mass ratio] 1.4 {ratio} [facility] Serum or plasma alkaline kami sphatase measurement (enzymatic activity/volume)Ordered By: Ward Zuniga on 01-03-2022 ALP [Catalytic activity/Vol] 65 U/L 32-92 [facility] Serum or plasma anion gap de terminationOrdered By: Ward Zuniga on 01-03-2022 Anion gap [Moles/Vol] 15.0 mmol/L 6.0-15.0 [facility] Serum or plasma aspartate am inotransferase measurement (enzymatic activity/volume)Ordered By: Ward Zuniga on 01-03-2022 AST [Catalytic activity/Vol] 16 U/L 10 [facility] Serum or plasma calcium ventura urement (mass/volume)Ordered By: Ward Zuniga on 01-03-2022 Calcium [Mass/Vol] 8.9 mg/dL 8.2-10.2 [facility] Serum or plasma chloride alfie surement (moles/volume)Ordered By: Ward Zuniga on 01-03-2022 Chloride [Moles/Vol] 101 mmol/L 95-114 [facility] Serum or plasma glucose ventura urement (mass/volume)Ordered By: Ward Zuniga on 01-03-2022 Glucose [Mass/Vol] 86 mg/dL 70-100 [facility] Comment on above: ADA recommended refe rence rangeRandom Glucose Reference Range is dependent on time and content of last meal. Glucose of more than 200 mg/dL in a nonstressed, ambulatory subject supports the diagnosis of Diabetes Mellitus. Serum or plasma high density lipoprotein (HDL) cholesterol measurementOrdered By: Ward Zuniga on 01-03-2022 Cholesterol in HDL [Mass/Vol] 51 mg/dL 35-85 [facility] Comment on above: HDL CHOL ATP-III CLA SSIFICATION Cardiovascular RiskHDL > or equal to 60 mg/dL LOWHDL < 40 mg/dL HIGH Serum or plasma potassium me asurement (moles/volume)Ordered By: Ward Zuniga on 01-03-2022 Potassium [Moles/Vol] 4.0 mmol/L 3.5-5.1 [facility] Serum or plasma sodium measu rement (moles/volume)Ordered By: Ward Zuniga on 01-03-2022 Sodium [Moles/Vol] 140 mmol/L 136-146 [facility] Serum or plasma total biliru bin measurement (mass/volume)Ordered By: Ward Zuniga on 01-03-2022 Bilirubin [Mass/Vol] 0.5 mg/dL 0.3-1.2 [facility] Serum or plasma total carbon dioxide measurement (moles/volume)Ordered By: Ward Zuniga on 01-03-2022 CO2 [Moles/Vol] 28.0 mmol/L 22.0-30.0 [facility] Serum or plasma total choles terol/high density lipoprotein (HDL) cholesterol mass ratOrdered By: Ward Zuniga on 01-03-2022 Cholesterol.total/Chol esterol in HDL [Mass ratio] 3.6 {ratio} <5.0 [facility] Serum or plasma urea nitroge n measurement (mass/volume)Ordered By: Ward Zuniga on 01-03-2022 Urea nitrogen [Mass/Vol] 6 mg/dL 9- [facility] TSH DL <= 0.005 mIU/L QnOrde red By: Ward Zuniga on 01-03-2022 TSH Qn 0.17 m[IU]/L 0.45-5.33 [facility] Triglyceride [Mass/volume] i n Serum or PlasmaOrdered By: Ward Zuniga on 01-03-2022 Triglyceride [Mass/Vol] 91 mg/dL 35-149 [facility] Comment on above: TRIG ATP III CLASSIF ICATIONTRIG less than 150 mg/dL NormalTRIG 150-199 mg/dL Borderline highTRIG 200-500 mg/dL High TRIG greater than 500 mg/dL Very highStandard traceable to the Center for Disease Conrtrol and Prevention (CDC) test method. COVID-19 Positive/NegativeOr dered By: Molina Villanueva on 12-15-2021 SARS-CoV-2 (COVID-19) N gene ROXANA+probe Ql (Resp) Negative Negative [facility] Comment on above: Testing for SARS-CoV -2 by RT-PCR This test was developed and its performance characteristics determined by [employer] ([employer]) and validated at the [facility]. This test has not been FDA [...] and its performance characteristics determined by [employer] ([employer]) and validated at the [facility]. This test has not been FDA [...] 07-05-2021 BUN/CREA 11 NOT APPLICABLE Normal 6-22 [facility] [place] [employer] Comment on above: Order Comment: [facility] performed at: [email or web address] [facility], [address] [place] [address], [address] [place] [address], [phone], [employer] Supervisor: Alli Parker MD [facility] Collection Date/Time: [facility] Results Received Date/Time: [facility] Reported Date/Time: Performed By: #### T LUIS, [id number] #### [facility] [address] [place] [address] Calcium [Mass/Vol] 8.9 mg/dL Normal 8.6-10.4 Ashley bacon [place] [employer] Comment on above: Order Comment: [facility] performed at: [email or web address] [facility], [address] [facility], [address] [place] [address], [phone], [employer] Supervisor: Alli Parker MD [facility] Collection Date/Time: [facility] Results Received Date/Time: [facility] Reported Date/Time: Performed By: #### T LUIS, [id number] #### [facility] [address] [place] [address] Chloride [Moles/Vol] 101 mmol/L Normal 98-110 [facility] Comment on above: Order Comment: [facility] performed at: [email or web address], [place] [facility], [address] [place] [address], [address] [place] [address], [address] [place] [address], [employer] Supervisor: Alli Parker MD [facility] Collection Date/Time: [facility] Results Received Date/Time: [facility] Reported Date/Time: Performed By: #### T LUIS, [id number] #### [facility] [address] [place] [address] CO2 [Moles/Vol] 30 mmol/L Normal 20-32 [facility] Special[facility] Comment on above: Order Comment: [facility] performed at: [email or web address], [place] [facility], [address] [place] [address], [address] [place] [address], [address] [place] [address], [employer] Supervisor: Alli Parker MD [facility] Collection Date/Time: [facility] Results Received Date/Time: [facility] Reported Date/Time: Performed By: #### T LUIS, [id number] #### [facility] [address] [place] [address] Creatinine [Mass/Vol] 0.94 mg/dL Normal 0.50-0.99 [facility] Comment on above: Order Comment: [facility] performed at: [employer], [place] [facility], [address] [place] [address], [address] [place] [address], [address] [place] [address], [employer] Supervisor: Alli Parker MD [facility] Collection Date/Time: [facility] Results Received Date/Time: [facility] Reported Date/Time: Result Comment: For patients >49 years of age, the reference limit for Creatinine is approximately 13% higher for people identified as -Argent[place]. Performed By: #### T LUIS, [id number] #### [facility] [address] [place] [address] eGFRAA ([facility]) 73 mL/min/1.73m2 Normal > OR = 60 [facility] [place] [employer] Comment on above: Order Comment: [facility] performed at: [employer], [place] [facility], [address] [place] [address], [address] [place] [address], [address] [place] [address], [employer] Supervisor: Alli Parker MD [facility] Collection Date/Time: [facility] Results Received Date/Time: [facility] Reported Date/Time: Performed By: #### T LUIS, [id number] #### [facility] [address] [place] [address] eGFRNAA ([facility]) 63 mL/min/1.73m2 Normal > OR = 60 [facility] [employer] Comment on above: Order Comment: [facility] performed at: [employer], [place] [facility], [address] [place] [address], [address] [place] [address], [address] [place] [address], [employer] Supervisor: Alli Parker MD [facility] Collection Date/Time: [facility] Results Received Date/Time: [facility] Reported Date/Time: Performed By: #### T LUIS, [id number] #### [facility] [address] [place] [address] Glucose [Mass/Vol] 82 mg/dL Normal 65-99 [facility] [employer] Comment on above: Order Comment: [facility] performed at: [email or web address] [facility], [address] [place] [address], [address] [place] [address], [address] [place] [address], [employer] Supervisor: Alli Parker MD [facility] Collection Date/Time: [facility] Results Received Date/Time: [facility] Reported Date/Time: Result Comment: Fasting reference interval Performed By: #### T LUIS, [id number] #### [facility] [address] [place] [address] Potassium [Moles/Vol] 4.3 mmol/L Normal 3.5-5.3 [facility] [employer] Comment on above: Order Comment: [facility] performed at: [employer], [place] [facility], [address] , [address] [place] [address], [phone], [employer] Supervisor: Alli Parker MD [facility] Collection Date/Time: [facility] Results Received Date/Time: [facility] Reported Date/Time: Performed By: #### T LUIS, [id number] #### [facility] [address] [place] [address] Sodium [Moles/Vol] 138 mmol/L Normal 135-146 [facility] Comment on above: Order Comment: [facility] performed at: [employer], [place] [facility], [address] , [address] [place] [address], [address] [place] [address], [employer] Supervisor: Alli Parker MD [facility] Collection Date/Time: [facility] Results Received Date/Time: [facility] Reported Date/Time: Performed By: #### T LUIS, [id number] #### [facility] [address] [place] [address] Urea nitrogen [Mass/Vol] 10 mg/dL Normal 7-25 [facility] [employer] Comment on above: Order Comment: [facility] performed at: [employer], [place] [facility], [address] , [address] [place] [address], [address] [place] [address], [employer] Supervisor: Alli Parker MD [facility] Date/Time: [facility] Results Received Date/Time: [facility] Reported Date/Time: Performed By: #### T LUIS, [id number] #### [facility] [address] [place] [address] TSHon 07-05-2021 TSH Qn 0.07 m[IU]/L Low 0.40-4.50 [facility] [employer] Comment on above: Order Comment: [facility] performed at: [employer], [place] [facility], [address] , [address] [place] [address], [phone], [employer] Supervisor: Alli Parker MD [facility] Date/Time: [id number] [facility] Results Received Date/Time: [id number] [facility] Reported Date/Time: [id number] Performed By: #### T , [id number] #### [facility] [address] [place] [address] Screening Mammogram, Maral fernandez 03-02-2021 Screening Mammogram, [...] VERY IMPORTANT TO YOUR HEALTH. THE CURRENT [employer] OF [employer] AND [employer]PREH[employer]WORK GUIDELINES RECOMMEND ANNUAL MAMMOGRAPHY BEGINNING AT AGE 40. THIS FACILITY UTILIZES A REMINDER SYSTEM TO ENSURE ALL PATIENTS RECEIVE A REMINDER NOTIFICATION AT THE APPROPRIATE TIME BASED ON THE RECOMMENDATIONS OF THIS EXAM. 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 ACCREDITED BY THE [facility] AND FDA. Report reported and signed by Eladia Aviles on 03/03/2021 0945 Normal [facility] [employer] COVID-19 Positive/Negativeon 07-13-2020 SARS-CoV-2 (COVID-19) N gene ROXANA+probe Ql (Resp) Negative Negative [facility] Comment on above: Reference: NegativeT esting for SARS-CoV-2 by RT-PCRThis test was developed and its performance characteristics determined by [employer] ([employer]) and validated at the [facility]. This test has not been FDA [...] (COVID-19) RNA ROXANA+probe Ql (Unsp spec) N/A [facility] Albumin [Mass/volume] in Ser um or Plasmaon 06-30-2020 Albumin [Mass/Vol] 3.6 g/dL 3.2-5.5 [facility] Basophils Auto (Bld) [#/Vol] on 06-30-2020 Basophils (Bld) [#/Vol] 0.0 10*3/uL 0.0-0.2 [facility] Basophils/100 WBC Auto (Bld) on 06-30-2020 Basophils/100 WBC (Bld) 0.8 % [facility] Bilirubin Auto test strip Ql (U)on 06-30-2020 Bilirubin Ql (U) Negative Negative [facility] Blood hemoglobin measurement (mass/volume)on 06-30-2020 Hemoglobin (Bld) [Mass/Vol] 12.1 g/dL 11.8-15.4 [facility] Blood leukocytes automated c ount (number/volume)on 06-30-2020 WBC (Bld) [#/Vol] 4.6 10*3/uL 4.5-11.0 [facility] Cholesterol [Mass/volume] in Serum or Plasmaon 06-30-2020 Cholesterol [Mass/Vol] 202 mg/dL 140-200 [facility] Comment on above: Chol less than 200 m g/dl low riskChol 201-239 mg/dl borderline riskChol 240 mg/dl and greater high risk Cholesterol in LDL Calc [Mas s/Vol]on 06-30-2020 Cholesterol in LDL [Mass/Vol] 134 mg/dL 0-100 [facility] Comment on above: LDL ATP III CLASSIFI CATIONLDL less than 100 mg/dL OptimalLDL 100-129 mg/dL Near or above optimalLDL 130-159 mg/dL Borderline highLDL 160-189 mg/dL HighLDL greater than 189 mg/dL Very high Cholesterol in VLDL Calc [Ma ss/Vol]on 06-30-2020 Cholesterol in VLDL [Mass/Vol] 25 mg/dL [facility] Creatinine and Glomerular fi ltration rate.predicted panel (S/P/Bld)on 06-30-2020 Creatinine [Mass/Vol] 0.84 mg/dL 0.44-1.03 [facility] Eosinophils Auto (Bld) [#/Vo l]on 06-30-2020 Eosinophils (Bld) [#/Vol] 0.1 10*3/uL 0.0-0.45 [facility] Eosinophils/100 WBC Auto (Bl d)on 06-30-2020 Eosinophils/100 WBC (Bld) 2.5 % [facility] Erythrocyte distribution wid th Auto (RBC) [Ratio]on 06-30-2020 Erythrocyte distribution width (RBC) [Ratio] 15.4 % 11.9-15.3 [facility] GFR/1.73 sq M.predicted anthony g non-blacks MDRD (S/P/Bld) [Vol rate/Area]on 06-30-2020 GFR/1.73 sq M predicted among non-blacks MDRD (S/P/Bld) [Vol rate/Area] > 60 mL/Min [facility] Globulin Calc (S) [Mass/Vol] on 06-30-2020 Globulin (S) [Mass/Vol] 2.3 g/dL [facility] Hematocrit Auto (Bld) [Volum e fraction]on 06-30-2020 Hematocrit (Bld) [Volume fraction] 35.9 % 34.0-46.4 [facility] Ketones Auto test strip (U) [Mass/Vol]on 06-30-2020 Ketones (U) [Mass/Vol] Negative Negative [facility] Lymphocytes Auto (Bld) [#/Vo l]on 06-30-2020 Lymphocytes (Bld) [#/Vol] 1.4 10*3/uL 1.00-4.8 [facility] Lymphocytes/100 WBC Auto (Bl d)on 06-30-2020 Lymphocytes/100 WBC (Bld) 31.2 % [facility] MCH Auto (RBC) [Entitic mass ]on 06-30-2020 MCH (RBC) [Entitic mass] 28.9 pg 24.7-34.3 [facility] MCHC Auto (RBC) [Mass/Vol]on 06-30-2020 MCHC (RBC) [Mass/Vol] 33.7 g/dL 32.0-35.0 [place] MCV Auto (RBC) [Entitic vol] on 06-30-2020 MCV (RBC) [Entitic vol] 85.9 fL 80-100 [facility] Monocytes Auto (Bld) [#/Vol] on 06-30-2020 Monocytes (Bld) [#/Vol] 0.3 10*3/uL 0.0-0.8 [facility] Monocytes/100 WBC Auto (Bld) on 06-30-2020 Monocytes/100 WBC (Bld) 7.6 % [facility] Neutrophils Auto (Bld) [#/Vo l]on 06-30-2020 Neutrophils (Bld) [#/Vol] 2.7 10*3/uL 1.8-7.7 [facility] Neutrophils/100 WBC Auto (Bl d)on 06-30-2020 Neutrophils/100 WBC (Bld) 57.9 % [facility] No Panel Informationon 06-30 Estimated GFR () > 60 mL/Min [facility] Comment on above: GFR estimated refere nce range: According to KDOQI guidelines, <60 ml/min/1.73m2 is sufficient to diagnose a patient with chronic kidney disease. Otheron 06-30-2020 GFR/1.73 sq M.predicted MDRD (S/P/Bld) [Vol rate/Area] > 60 mL/Min [facility] Comment on above: GFR estimated refere nce range: According to KDOQI guidelines, <60 ml/min/1.73m2 is sufficient to diagnose a patient with chronic kidney disease. Nucleated RBC/100 WBC (Bld) [Ratio] 0.1 % 0-0.5 [facility] Creatinine Clearance (Chem N/A [facility] Platelet mean volume Auto (B ld) [Entitic vol]on 06-30-2020 Platelet mean volume (Bld) [Entitic vol] 7.8 fL 6.3-10.7 [facility] Platelets Auto (Bld) [#/Vol] on 06-30-2020 Platelets (Bld) [#/Vol] 244 10*3/uL 150-450 [facility] Protein Auto test strip (U) [Mass/Vol]on 06-30-2020 Protein (U) [Mass/Vol] Negative Negative Fi [facility] Protein [Mass/volume] in Ser um or Plasmaon 06-30-2020 Protein [Mass/Vol] 5.9 g/dL 6.1-7.9 [facility] RBC Auto (Bld) [#/Vol]on RBC (Bld) [#/Vol] 4.18 10*6/uL 3.60-5.00 [facility] Serum or plasma alanine kirkpatrick otransferase measurement without P-5'-P (enzymatic activion 06-30-2020 ALT No additional P-5'-P [Catalytic activity/Vol] 16 U/L 10-60 [facility] Serum or plasma albumin/glob ulin mass ratioon 06-30-2020 Albumin/Globulin [Mass ratio] 1.6 {ratio} [facility] Serum or plasma alkaline kami sphatase measurement (enzymatic activity/volume)on 06-30-2020 ALP [Catalytic activity/Vol] 63 U/L 32-92 [facility] Serum or plasma aspartate am inotransferase measurement (enzymatic activity/volume)on 06-30-2020 AST [Catalytic activity/Vol] 20 U/L 10-42 [facility] Serum or plasma calcium ventura urement (mass/volume)on 06-30-2020 Calcium [Mass/Vol] 8.7 mg/dL 8.2-10.2 [facility] Serum or plasma chloride alfie surement (moles/volume)on 06-30-2020 Chloride [Moles/Vol] 101 mmol/L 95-114 [facility] Serum or plasma glucose ventura urement (mass/volume)on 06-30-2020 Glucose [Mass/Vol] 90 mg/dL 70-100 [facility] Comment on above: ADA recommended refe rence rangeRandom Glucose Reference Range is dependent on time and content of last meal. Glucose of more than 200 mg/dL in a nonstressed, ambulatory subject supports the diagnosis of Diabetes Mellitus. Serum or plasma high density lipoprotein (HDL) cholesterol measurementon 06-30-2020 Cholesterol in HDL [Mass/Vol] 42 mg/dL 35-85 [facility] Comment on above: HDL CHOL ATP-III CLA SSIFICATION Cardiovascular RiskHDL > or equal to 60 mg/dL LOWHDL < 40 mg/dL HIGH Serum or plasma potassium me asurement (moles/volume)on 06-30-2020 Potassium [Moles/Vol] 4.1 mmol/L 3.5-5.1 [place] Serum or plasma sodium measu rement (moles/volume)on 06-30-2020 Sodium [Moles/Vol] 139 mmol/L 136-146 [facility] Serum or plasma thyroid stim ulating hormone (TSH) measurement by high sensitivity meton 06-30-2020 TSH Qn 1.63 u[iU]/mL 0.45-5.33 [facility] Serum or plasma total biliru bin measurement (mass/volume)on 06-30-2020 Bilirubin [Mass/Vol] 0.6 mg/dL 0.3-1.2 [facility] Serum or plasma total carbon dioxide measurement (moles/volume)on 06-30-2020 CO2 [Moles/Vol] 28.7 mmol/L 22.0-30.0 [facility] Serum or plasma total choles terol/high density lipoprotein (HDL) cholesterol mass bentley 06-30-2020 Cholesterol.total/Chol esterol in HDL [Mass ratio] 4.8 {ratio} [facility] Serum or plasma urea nitroge n measurement (mass/volume)on 06-30-2020 Urea nitrogen [Mass/Vol] 5 mg/dL 9-23 [facility] TSH DL <= 0.005 mIU/L Qnon 0 06-30-2020 TSH Qn 1.63 m[IU]/L 0.45-5.33 [facility] Triglyceride [Mass/volume] i n Serum or Plasmaon 06-30-2020 Triglyceride [Mass/Vol] 128 mg/dL 35-149 [facility] Comment on above: TRIG ATP III CLASSIF ICATIONTRIG less than 150 mg/dL NormalTRIG 150-199 mg/dL Borderline highTRIG 200-500 mg/dL High TRIG greater than 500 mg/dL Very highStandard traceable to the Center for Disease Conrtrol and Prevention (CDC) test method. Urine appearanceon Appearance (U) Clear Clear [facility] Urine coloron 06-30-2020 Color (U) Yellow Yellow [facility] Urine glucose measurement by automated test strip (mass/volume)on 06-30-2020 Glucose Auto test strip (U) [Mass/Vol] Normal mg/dL Normal [facility] Urine hemoglobin detection b y automated test stripon 06-30-2020 Hemoglobin Auto test strip Ql (U) Negative Negative [facility] Hemoglobin Auto test strip Ql (U) Negative Negative [facility] Urine ketones measurement by automated test strip (mass/volume)on 06-30-2020 Ketones (U) [Mass/Vol] Negative Negative [facility] Urine leukocyte esterase det ection by automated test stripon 06-30-2020 Leukocyte esterase Auto test strip Ql (U) Negative Negative [facility] Leukocyte esterase Auto test strip Ql (U) Negative Negative [facility] Urine nitrite detection by a utomated test stripon 06-30-2020 Nitrite Auto test strip Ql (U) Negative Negative [facility] Nitrite Auto test strip Ql (U) Negative Negative [facility] Urine protein measurement by automated test strip (mass/volume)on 06-30-2020 Protein (U) [Mass/Vol] Negative Negative [facility] Urine total bilirubin detect ion by automated test stripon 06-30-2020 Bilirubin Ql (U) Negative Negative [facility] Urobilinogen Auto test strip (U) [Mass/Vol]on 06-30-2020 Urobilinogen (U) [Mass/Vol] Normal mg/dL Normal [facility] pH Auto test strip (U)on pH (U) 5.5 [pH] 5.0-9.0 [facility] pH (U) 1.030 [pH] 1.001-1.03 0 [facility] Amphetamines screenon 2020 Amphetamines Ql (U) Negative Negative [facility] Cannabinoids [Presence] in U rine by Screen methodon 03-31-2020 Cannabinoids Screen Ql (U) Positive Negative [facility] Comment on above: These are unconfirme d results and should not be used for legal purposes. Drug Cut-Off Concentration: AMPH 1000 ng/mL JUNIE 200 ng/mL SABRA 200 ng/mL COCM 300 ng/mL OP 300 ng/mL PCP 25 ng/mL THC 20 ng/mL Urinalysison 03-31-2020 Opiates Ql (U) Negative Negative [facility] Urine barbiturates detection on 03-31-2020 Barbiturates Ql (U) Negative Negative [facility] Urine benzodiazepines detect ionon 03-31-2020 Benzodiazepines Ql (U) Negative Negative [facility] Urine cocaine detectionon Cocaine Ql (U) Negative Negative [facility] Urine phencyclidine detectio n by screening methodon 03-31-2020 Phencyclidine Ql (U) Negative Negative [facility] COVID-19 SOFIAon 03-30-2020 COVID-19 SHELBI Negative Negative [facility] Comment on above: This is a duplicate test result based off of the Shelbi SARS Antigen (MILDRED) test performed within the Microbiology department. Otheron 03-30-2020 SARS Antigen (LFIA) [facility] Vital Signs Date Time Vital Sign Value Performing Clinician Facility 03-13-2023 14:26-0500 Body temperature 97.7 [degF] DO Ward Zuniga Work Phone: [facility] 03-13-2023 14:26-0500 Diastolic blood pressure 68 mm[Hg] DO Ward Loomisman Work Phone: [facility] 03-13-2023 14:26-0500 Heart rate 84 /min DO Ward Loomisman Work Phone: [facility] 03-13-2023 14:26-0500 Respiratory rate 18 /min DO Ward Zuniga Work Phone: [facility] 03-13-2023 14:26-0500 Systolic blood pressure 148 mm[Hg] DO Ward Zach Work Phone: [facility] 03-02-2023 13:09-0500 Blood Pressure Location Ketty Orzech [facility] 03-02-2023 13:09-0500 Body temperature 96.98 [degF] Ketty Orzech [facility] 03-02-2023 13:09-0500 Diastolic blood pressure 81 mm[Hg] Ketty Orzech [facility] 03-02-2023 13:09-0500 Heart rate 71 /min Ketty Orzech [facility] 03-02-2023 13:09-0500 Systolic blood pressure 128 mm[Hg] Ketty Orzech [facility] 02-27-2023 14:36-0500 Body height 154.94 cm DO Ward Zach Work Phone: [facility] 02-27-2023 14:36-0500 Body mass index (BMI) [Ratio] 31.1 kg/m2 DO Ward Zach Work Phone: [facility] 02-27-2023 14:36-0500 Body weight 74.84 kg DO Ward Zach Work Phone: [facility] 01-04-2023 13:32-0400 Body height 154.94 cm DO Ward Zach Work Phone: [facility] 01-04-2023 13:32-0400 Body mass index (BMI) [Ratio] 31.1 kg/m2 DO Ward Zach Work Phone: [facility] 01-04-2023 13:32-0400 Body weight 74.84 kg DO Ward Zuniga Work Phone: [facility] 01-04-2023 13:19-0400 Diastolic blood pressure 92 mm[Hg] DO Ward Zuniga Work Phone: [facility] 01-04-2023 13:19-0400 Heart rate 82 /min DO Ward Zuniga Work Phone: [facility] 01-04-2023 13:19-0400 Respiratory rate 18 /min DO Ward Zuniga Work Phone: [facility] 01-04-2023 13:19-0400 Systolic blood pressure 160 mm[Hg] DO Ward Zuniga Work Phone: [facility] 01-02-2023 09:45-0400 Body height 154.94 cm Ward Mtz Other [employer] Other 01-02-2023 09:45-0400 Body mass index (BMI) [Ratio] 32.12 kg/m2 Ward Mtz Other [employer] Other 01-02-2023 09:45-0400 Body temperature 97.8 [degF] Ward Mtz Other [employer] Other 01-02-2023 09:45-0400 Body weight 77.11 kg Ward Mtz Other [employer] Other 01-02-2023 09:45-0400 Diastolic blood pressure 62 mm[Hg] Ward Mtz Other [employer] Other 01-02-2023 09:45-0400 SaO2% (BldA) [Mass fraction] 97 % Ward Mtz Other [facility] [employer] Other 01-02-2023 09:45-0400 Systolic blood pressure 116 mm[Hg] Ward Mtz Other [facility] [employer] Other 12-21-2022 13:01-0400 Body temperature 98.4 [degF] DO Ward Zuniga Work Phone: [facility] 12-17-2022 09:00-0400 Diastolic blood pressure 68 mm[Hg] DO Ward Zuniga Work Phone: [facility] 12-17-2022 09:00-0400 Heart rate 64 /min DO Ward Zuniga Work Phone: [facility] 12-17-2022 09:00-0400 Respiratory rate 20 /min DO Ward Zuniga Work Phone: [facility] 12-17-2022 09:00-0400 SaO2% (BldA) [Mass fraction] 95 % DO Ward Zuniga Work Phone: [facility] 12-17-2022 09:00-0400 Systolic blood pressure 138 mm[Hg] DO Ward Zuniga Work Phone: [facility] 12-17-2022 07:42-0400 Body temperature 98.9 [degF] DO Ward Zuniga Work Phone: [facility] 12-07-2022 11:11-0400 Body height 154.94 cm DO Ward Zuniga Work Phone: [facility] 12-07-2022 11:11-0400 Body mass index (BMI) [Ratio] 31.1 kg/m2 DO Ward Zuniga Work Phone: [facility] 12-07-2022 11:11-0400 Body weight 74.84 kg DO Ward Zuniga Work Phone: [facility] 12-07-2022 11:01-0400 Body temperature 97.2 [degF] DO Ward Zuniga Work Phone: [facility] 12-07-2022 11:01-0400 Diastolic blood pressure 74 mm[Hg] DO Ward Zach Work Phone: [facility] 12-07-2022 11:01-0400 Heart rate 67 /min DO Ward Zuniga Work Phone: [facility] 12-07-2022 11:01-0400 Respiratory rate 18 /min DO Ward Zuniga Work Phone: [facility] 12-07-2022 11:01-0400 Systolic blood pressure 146 mm[Hg] DO Ward Zuniga Work Phone: [facility] 11-04-2022 10:54-0400 Body height 154.94 cm DO Ward Zuniga Work Phone: [facility] 11-04-2022 10:54-0400 Body temperature 99.2 [degF] DO Ward Zuniga Work Phone: [facility] 11-04-2022 10:54-0400 Body weight 70.3 kg DO Ward Zuniga Work Phone: [facility] 11-04-2022 10:54-0400 Diastolic blood pressure 71 mm[Hg] DO Ward Zuniga Work Phone: [facility] 11-04-2022 10:54-0400 Heart rate 78 /min DO Ward Zuniga Work Phone: [facility] 11-04-2022 10:54-0400 Respiratory rate 18 /min DO Ward Zuniga Work Phone: [facility] 11-04-2022 10:54-0400 SaO2% (BldA) [Mass fraction] 99 % DO Ward Zuniga Work Phone: [facility] 11-04-2022 10:54-0400 Systolic blood pressure 159 mm[Hg] DO Ward Zuniga Work Phone: [facility] 10-26-2022 09:42-0400 Body height 154.94 cm DO Ward Zuniga Work Phone: [facility] 10-26-2022 09:42-0400 Body mass index (BMI) [Ratio] 31.1 kg/m2 DO Ward Zuniga Work Phone: [facility] 10-26-2022 09:42-0400 Body weight 74.84 kg DO Ward Zuniga Work Phone: [facility] 10-26-2022 09:28-0400 Body temperature 98.4 [degF] DO Ward Zuniga Work Phone: [facility] 10-26-2022 09:28-0400 Diastolic blood pressure 88 mm[Hg] DO Ward Zuniga Work Phone: [facility] 10-26-2022 09:28-0400 Heart rate 93 /min DO Ward Zuniga Work Phone: [facility] 10-26-2022 09:28-0400 Respiratory rate 24 /min DO Ward Zuniga Work Phone: [facility] 10-26-2022 09:28-0400 Systolic blood pressure 132 mm[Hg] DO Ward Zuniga Work Phone: [facility] 10-24-2022 09:45-0400 Body height 154.94 cm Ward Smith Other [facility] [employer] Other 10-24-2022 09:45-0400 Body mass index (BMI) [Ratio] 31.74 kg/m2 Ward Buehrer Other [facility] [employer] Other 10-24-2022 09:45-0400 Body temperature 97.4 [degF] Ward Carmonalalita Other [employer] Other 10-24-2022 09:45-0400 Body weight 76.2 kg Ward Carmonar Other [employer] Other 10-24-2022 09:45-0400 Diastolic blood pressure 70 mm[Hg] Ward Carmonar Other [employer] Other 10-24-2022 09:45-0400 SaO2% (BldA) [Mass fraction] 97 % Ward Carmonar Other [employer] Other 10-24-2022 09:45-0400 Systolic blood pressure 118 mm[Hg] Ward Carmonar Other [employer] [employer] Other 09-27-2022 08:26-0400 Diastolic blood pressure 56 mm[Hg] Ronobir RAND[facility] 09-27-2022 08:26-0400 Heart rate 55 /min Ronobir R[facility] 09-27-2022 08:26-0400 Respiratory rate 18 /min Ronobir [facility] 09-27-2022 08:26-0400 SaO2% (BldA) [Mass fraction] 99 % Ronobir RAND[facility] 09-27-2022 08:26-0400 Systolic blood pressure 110 mm[Hg] Ronobir R[facility] 09-27-2022 05:58-0400 Diastolic blood pressure 59 mm[Hg] Ronobir RAND[facility] 09-27-2022 05:58-0400 Heart rate 64 /min Ronobir R[facility] 09-27-2022 05:58-0400 Respiratory rate 18 /min Ronobir R[facility] 09-27-2022 05:58-0400 SaO2% (BldA) [Mass fraction] 95 % Ronobir R[facility] 09-27-2022 05:58-0400 Systolic blood pressure 108 mm[Hg] Ronobir RAND[facility] 09-27-2022 04:58-0400 Diastolic blood pressure 61 mm[Hg] Ronobir RAND[facility] 09-27-2022 04:58-0400 Heart rate 66 /min Ronobir RAND[facility] 09-27-2022 04:58-0400 Respiratory rate 18 /min Ronobir R[facility] 09-27-2022 04:58-0400 SaO2% (BldA) [Mass fraction] 97 % Ronobir RAND[facility] 09-27-2022 04:58-0400 Systolic blood pressure 111 mm[Hg] Ronobir RAND[facility] 09-26-2022 23:15-0400 Body temperature 98.96 [degF] Usamaobir RANDY [facility] 07-26-2022 14:31-0400 Heart rate 76 /min Talon Mcbr[facility] 07-26-2022 14:31-0400 SaO2% (BldA) [Mass fraction] 98 % Talon Mcbride [facility] 07-26-2022 14:30-0400 Diastolic blood pressure 84 mm[Hg] Talon Gastonsh [facility] 07-26-2022 14:30-0400 Mean blood pressure 111 mm[Hg] Talon Gastons[facility] 07-26-2022 14:30-0400 Systolic blood pressure 166 mm[Hg] Talon Gastons[facility] 07-26-2022 14:30-0400 Respiratory rate 16 /min Talon Gastons[facility] 07-26-2022 12:53-0400 Heart rate 73 /min Talon Gast[facility] 07-26-2022 12:53-0400 SaO2% (BldA) [Mass fraction] 98 % Talon Gastons[facility] 07-26-2022 12:52-0400 Diastolic blood pressure 75 mm[Hg] Talon Gastons[facility] 07-26-2022 12:52-0400 Mean blood pressure 99 mm[Hg] Talon Gastons[facility] 07-26-2022 12:52-0400 Systolic blood pressure 148 mm[Hg] Talon Gastons[facility] 07-26-2022 12:52-0400 SaO2% (BldA) [Mass fraction] 95 % Talon Gast[facility] 07-26-2022 12:43-0400 Body temperature 97.88 [degF] Talon Gast[facility] 07-26-2022 12:43-0400 Diastolic blood pressure 63 mm[Hg] Talon Gastons[facility] 07-26-2022 12:43-0400 Heart rate 63 /min Talon Gastons[facility] 07-26-2022 12:43-0400 Mean blood pressure 86 mm[Hg] Talon Gastons[facility] 07-26-2022 12:43-0400 Respiratory rate 15 /min Talon Mcbr[facility] 07-26-2022 12:43-0400 Systolic blood pressure 131 mm[Hg] Talon Gastons[facility] 07-26-2022 12:30-0400 Mean blood pressure 93 mm[Hg] Talon Gastons[facility] 07-26-2022 12:30-0400 Respiratory rate 16 /min Talon Gast[facility] 07-26-2022 12:15-0400 Mean blood pressure 112 mm[Hg] Talon Gastons[facility] 07-26-2022 12:15-0400 Respiratory rate 15 /min Talon Gast[facility] 07-26-2022 11:46-0400 Body temperature 97.34 [degF] Talon Gastons[facility] 07-26-2022 11:40-0400 Respiratory rate 21 /min Talon Gastons[facility] 07-26-2022 11:35-0400 Respiratory rate 14 /min Talon Gastons[facility] 07-26-2022 06:00-0400 Body temperature 98.06 [degF] Talon Gast[facility] 07-26-2022 06:00-0400 Mean blood pressure 101 mm[Hg] Talon Gastons[facility] 07-26-2022 06:00-0400 Heart rate 68 /min Talon Gastons[facility] 07-26-2022 05:58-0400 Blood Pressure Location Talon Mcbride [facility] 07-18-2022 13:31-0400 Diastolic blood pressure 72 mm[Hg] Talon Mcbride [facility] 07-18-2022 13:31-0400 Heart rate 61 /min Talon Mcbr[facility] 07-18-2022 13:31-0400 Mean blood pressure 89 mm[Hg] Talon Mcbr[facility] 07-18-2022 13:31-0400 Systolic blood pressure 123 mm[Hg] Talon Mcbr[facility] 07-18-2022 13:31-0400 Heart rate 64 /min Talon Mcbr[facility] 07-18-2022 13:31-0400 SaO2% (BldA) [Mass fraction] 99 % Talon Mcbr[facility] 07-18-2022 13:31-0400 Respiratory rate 17 /min Talon Mcbr[facility] 07-18-2022 13:30-0400 Diastolic blood pressure 69 mm[Hg] Talon Mcbr[facility] 07-18-2022 13:30-0400 Mean blood pressure 86 mm[Hg] Talon Mcbr[facility] 07-18-2022 13:30-0400 Systolic blood pressure 121 mm[Hg] Talon Gastons[facility] 07-13-2022 14:45-0400 Body height 154.9 cm Trauma Resident [facility] 07-13-2022 14:45-0400 Body mass index (BMI) [Ratio] 31.01 kg/m2 Trauma Resident [facility] 07-13-2022 14:45-0400 Body temperature 97.3 [degF] Trauma Resident [facility] 07-13-2022 14:45-0400 Body weight 74.44 kg Trauma Resident [facility] 07-13-2022 14:45-0400 Diastolic blood pressure 69 mm[Hg] Trauma Resident [facility] 07-13-2022 14:45-0400 Heart rate 69 /min Trauma Resident [facility] 07-13-2022 14:45-0400 Respiratory rate 16 /min Trauma Resident [facility] 07-13-2022 14:45-0400 SaO2% (BldA) [Mass fraction] 100 % Trauma Resident [facility] 07-13-2022 14:45-0400 Systolic blood pressure 159 mm[Hg] Trauma Resident [facility] 07-05-2022 14:45-0400 Diastolic blood pressure 54 mm[Hg] [address] 07-05-2022 14:45-0400 Heart rate 75 /min [address] 07-05-2022 14:45-0400 Respiratory rate 16 /min [address] 07-05-2022 14:45-0400 SaO2% (BldA) [Mass fraction] 97 % [address] 07-05-2022 14:45-0400 Systolic blood pressure 125 mm[Hg] [address] 07-05-2022 13:00-0400 Body height 154.[address] 07-05-2022 13:00-0400 Body mass index (BMI) [Ratio] 31.55 kg/m2 [address] 07-05-2022 13:00-0400 Body temperature 98.6 [degF] [address] 07-05-2022 13:00-0400 Body weight 75.[address] 06-30-2022 08:58-0400 Body height 154.94 cm Ward Zuniga Work Phone: [facility] [employer] 600 DO Work Phone: 06-30-2022 08:58-0400 Body mass index (BMI) [Ratio] 31.08 kg/m2 Ward Zuniga Work Phone: [facility] [employer] 600 DO Work Phone: 06-30-2022 08:58-0400 Body surface area Derived from formula 1.74 m2 Ward Zuniga Work Phone: [facility] 600 DO Work Phone: 06-30-2022 08:58-0400 Body weight 74.62 kg Ward Zuniga Work Phone: [facility] [address] DO Work Phone: 06-30-2022 08:58-0400 Diastolic blood pressure 78 mm[Hg] Ward Zuniga Work Phone: [facility] [address] DO Work Phone: 06-30-2022 08:58-0400 Diastolic blood pressure 80 mm[Hg] Ward Zuniga Work Phone: [facility] [employer] 600 DO Work Phone: 06-30-2022 08:58-0400 Heart rate 77 /min Ward Loomisman Work Phone: [facility] [address] DO Work Phone: 06-30-2022 08:58-0400 Systolic blood pressure 128 mm[Hg] Ward Zuniga Work Phone: [facility] [address] DO Work Phone: 06-30-2022 08:58-0400 Systolic blood pressure 132 mm[Hg] Ward Zuniga Work Phone: [facility] [address] DO Work Phone: 06-22-2022 19:00-0400 Body height 154.94 cm DO Ward Zuniga Work Phone: [facility] 06-22-2022 19:00-0400 Body temperature 97.7 [degF] DO Ward Zuniga Work Phone: [facility] 06-22-2022 19:00-0400 Body weight 73 kg DO Ward Zuniga Work Phone: [facility] 06-22-2022 19:00-0400 Diastolic blood pressure 76 mm[Hg] DO Ward Zuniga Work Phone: [facility] 06-22-2022 19:00-0400 Heart rate 94 /min DO Ward Zuniga Work Phone: [facility] 06-22-2022 19:00-0400 Respiratory rate 18 /min DO Ward Zuniga Work Phone: [facility] 06-22-2022 19:00-0400 SaO2% (BldA) [Mass fraction] 98 % DO Ward Zuniga Work Phone: [facility] 06-22-2022 19:00-0400 Systolic blood pressure 139 mm[Hg] DO Ward Zuniga Work Phone: [facility] 06-15-2022 13:10-0400 Body height 154.9 cm Trauma Resident [facility] 06-15-2022 13:10-0400 Body mass index (BMI) [Ratio] 31.57 kg/m2 Trauma Resident [facility] 06-15-2022 13:10-0400 Body weight 75.8 kg Trauma Resident [facility] 06-15-2022 13:10-0400 Diastolic blood pressure 68 mm[Hg] Trauma Resident [facility] 06-15-2022 13:10-0400 Heart rate 92 /min Trauma Resident [facility] 06-15-2022 13:10-0400 Respiratory rate 19 /min Trauma Resident [facility] 06-15-2022 13:10-0400 SaO2% (BldA) [Mass fraction] 97 % Trauma Resident [facility] 06-15-2022 13:10-0400 Systolic blood pressure 118 mm[Hg] Trauma Resident [facility] 05-16-2022 00:50-0500 Body temperature 98.3 [degF] DO Ward Zuniga Work Phone: [facility] 05-16-2022 00:50-0500 Diastolic blood pressure 79 mm[Hg] DO Ward Zuniga Work Phone: [facility] 05-16-2022 00:50-0500 Heart rate 82 /min DO Ward Zuniga Work Phone: [facility] 05-16-2022 00:50-0500 Inhaled oxygen flow rate 3 L/min DO Ward Zuniga Work Phone: [facility] 05-16-2022 00:50-0500 Respiratory rate 20 /min DO Ward Zuniga Work Phone: [facility] 05-16-2022 00:50-0500 SaO2% (BldA) [Mass fraction] 96 % DO Ward Zuniga Work Phone: [facility] 05-16-2022 00:50-0500 Systolic blood pressure 147 mm[Hg] DO Ward Zuniga Work Phone: [facility] 05-15-2022 17:14-0500 Body height 154.94 cm DO Ward Zuniga Work Phone: [facility] 05-15-2022 17:14-0500 Body weight 78.1 kg DO Ward Zuniga Work Phone: [facility] 12-07-2021 09:30-0400 Body height 154.94 cm Balwinder Parker Other [employer] Other 12-07-2021 09:30-0400 Body mass index (BMI) [Ratio] 33.06 kg/m2 Balwinder Parker Other [employer] Other 12-07-2021 09:30-0400 Body weight 79.38 kg Balwinder Parker Other [employer] Other 12-07-2021 09:30-0400 Diastolic blood pressure 63 mm[Hg] Balwinder Parker Other [employer] Other 12-07-2021 09:30-0400 Systolic blood pressure 113 mm[Hg] Balwinder Parker Other [facility] [employer] Other 12-07-2021 09:01-0400 Body weight 0 kg DO Ward Zuniga Work Phone: [facility] 11-30-2021 13:23-0400 Blood Pressure Location MARYCARMEN ELIJAH [facility] 11-30-2021 13:23-0400 Diastolic blood pressure 73 mm[Hg] MARYCARMEN ELIJAH [facility] 11-30-2021 13:23-0400 Heart rate 69 /min MARYCARMEN ELIJAH [facility] 11-30-2021 13:23-0400 Systolic blood pressure 132 mm[Hg] MARYCARMEN ELIJAH [facility] 07-29-2021 11:08-0400 Blood Pressure Location MARYCARMEN ELIJAH [facility] 07-29-2021 11:08-0400 Diastolic blood pressure 84 mm[Hg] MARYCARMEN ELIJAH [facility] 07-29-2021 11:08-0400 Heart rate 77 /min MARYCARMEN ELIJAH [facility] 07-29-2021 11:08-0400 Systolic blood pressure 132 mm[Hg] MARYCARMEN ELIJAH [facility] 07-01-2021 14:45-0400 Body height 154.94 cm Balwinder Parker Other [employer] Other 07-01-2021 14:45-0400 Body mass index (BMI) [Ratio] 36.09 kg/m2 Balwinder Parker Other [employer] Other 07-01-2021 14:45-0400 Body weight 86.64 kg Balwinder Parker Other [employer] Other 02-23-2021 11:45-0500 Body height 154.94 cm Ward Mtz Other [employer] Other 02-23-2021 11:45-0500 Body mass index (BMI) [Ratio] 34.95 kg/m2 Ward Mtz Other [employer] Other 02-23-2021 11:45-0500 Body temperature 96.7 [degF] Ward Mtz Other [employer] Other 02-23-2021 11:45-0500 Body weight 83.92 kg Ward Mtz Other [employer] Other 02-23-2021 11:45-0500 Diastolic blood pressure 80 mm[Hg] Ward Mtz Other [employer] Other 02-23-2021 11:45-0500 SaO2% (BldA) [Mass fraction] 98 % Ward Mtz Other [employer] Other 02-23-2021 11:45-0500 Systolic blood pressure 138 mm[Hg] Ward Morenosantiago Other [employer] Other 12-29-2020 11:40-0400 Body height 154.94 cm Michael Colunga Other [employer] Other 12-29-2020 11:40-0400 Body mass index (BMI) [Ratio] 34.95 kg/m2 Michael Colunga Other [employer] Other 12-29-2020 11:40-0400 Body weight 83.92 kg Michael Colunga Other [employer] Other 12-29-2020 11:40-0400 Diastolic blood pressure 68 mm[Hg] Michael Colunga Other [employer] Other 12-29-2020 11:40-0400 Systolic blood pressure 116 mm[Hg] Michael Keanu Other [employer] Other 03-31-2020 08:55-0500 BP Diastolic 80 mm[Hg] [facility] 03-31-2020 08:55-0500 BP Systolic 145 mm[Hg] [facility] 03-31-2020 08:55-0500 Pulse (Heart Rate) 65 /min [facility] 03-31-2020 08:55-0500 Pulse Oximetry 99 % [facility] 03-31-2020 08:55-0500 Respiratory Rate 16 /min [facility] 03-31-2020 07:10-0500 BMI (Body Mass Index) 33.6 kg/m2 [facility] 03-31-2020 07:10-0500 Body weight 82.1 kg [facility] 03-31-2020 07:10-0500 Height 156.21 cm Ward Zuniga [facility] Encounters Encounter Date Encounter Type Care Provider Facility Start: 03-14-2024 ambulatory MARYCARMEN Lay ty:[facility] Start: 04-11-2023 ambulatory CONNIE LEARY Not Mary ilable Start: 03-22-2023 End: 03-22-2023 ambulatory CONNIE LEARY Not Available Start: 03-13-2023 End: 03-13-2023 ambulatory Adelia Shana Facility:[facility] Start: 03-13-2023 End: 03-13-2023 ambulatory DO Ward Zuniga Work Phone: [facility] Work Phone: Start: 03-13-2023 End: 03-13-2023 Discharged Recurring DO Ward Zuniga Work Phone: [facility] [place] Work Phone: Start: 03-02-2023 End: 03-03-2023 ambulatory Ketty X Orzech Facility:[facility] Start: 03-02-2023 End: 03-02-2023 Patient encounter procedure Ketty X Orzech [facility] [place] Start: 03-01-2023 End: 03-02-2023 ambulatory CONNIE LEARY Not Available Start: 02-22-2023 End: 02-23-2023 ambulatory CONNIE LEARY Not Available Start: 02-07-2023 End: 02-08-2023 ambulatory WARD ZUNIGA Not Available Start: 01-04-2023 End: 01-04-2023 ambulatory Ward Zuniga Facility:[facility] Start: 01-04-2023 End: 01-04-2023 Discharged Recurring DO Ward Zuniga Work Phone: [facility] [place] Work Phone: Start: 01-02-2023 End: 01-02-2023 ambulatory Ward Mtz Other [employer] Other Start: 01-02-2023 Office outpatient vi sit 25 minutes Ward Mtz [facility] Vascular Surgery Start: 12-17-2022 End: 12-17-2022 Emergency department patient visit Pravin Granado Facility:[facility] Start: 12-17-2022 End: 12-17-2022 Emergency department patient visit DO Ward Zuniga Work Phone: [facility]Emer[facility] Work Phone: Start: 12-07-2022 Registered Recurring DO Lyndsey Loomisman Work Phone: [facility] [place] Work Phone: Start: 12-03-2022 Letter encounter Lalo lancaster Start: 11-04-2022 End: 11-04-2022 ambulatory Ward Zuniga Facility:[facility] Start: 11-04-2022 End: 11-04-2022 Emergency department patient visit Ward Zuniga Facility:[facility] Start: 11-04-2022 End: 11-04-2022 ambulatory DO Ward Zuniga Work Phone: [facility] Work Phone: Start: 11-04-2022 End: 11-04-2022 Patient encounter procedure DO Ward Zach Work Phone: [facility]Ul[facility]ound [place] Work Phone: Start: 11-04-2022 End: 11-04-2022 Emergency department patient visit DO Ward Zuniga Work Phone: [facility] Work Phone: Start: 10-26-2022 Registered Recurring DO Lyndsey Zuniga Work Phone: [facility] [place] Work Phone: Start: 10-24-2022 End: 10-24-2022 ambulatory Ward Mtz Other [employer] Other Start: 10-24-2022 Office outpatient vi sit 25 minutes Ward ARMENDARIZ V[facility] Surgery Start: 09-27-2022 End: 09-27-2022 ambulatory Maliha PADILLA Facility:[facility] Start: 09-26-2022 End: 09-27-2022 Emergency department patient visit Maliha PADILLA [facility] Start: 09-06-2022 End: 09-06-2022 ambulatory Ward Zuniga Facility:[facility] Start: 09-06-2022 End: 09-06-2022 Patient encounter procedure DO Ward Zuniga Work Phone: [facility] [place] Work Phone: Start: 08-30-2022 Letter encounter Lalo lancaster Start: 08-05-2022 End: 08-06-2022 ambulatory Talon Mcbride Facility:[facility] Start: 08-05-2022 End: 08-05-2022 Patient encounter procedure Zulay Junior [facility] Start: 07-26-2022 End: 07-26-2022 ambulatory Talon Mcbride Facility:[facility] Start: 07-26-2022 End: 07-26-2022 Admission to same day surgery center Talon Mcbride [facility] Start: 07-18-2022 End: 07-19-[address] Ward Zuniga Facility:[facility] Start: 07-18-2022 End: 07-18-2022 Patient encounter procedure Talon Mcbride [facility] Start: 07-13-2022 End: 07-13-2022 ambulatory NIKITA HEIN Facility:[facility] Start: 07-13-2022 End: 07-13-2022 Office outpatient visit 10 minutes Trauma Surgery Resident [facility] Comment on above: Acute cholecystitis (Primary Dx); Body mass index (BMI) 31.0-31.9, adult Start: 07-13-2022 Admission to same day surgery center Nikita Hein MD Work Phone: [facility] Start: 07-07-2022 Orders Only Jai Aguilera RN [facility] Start: 07-06-2022 ambulatory Kendra Harrison RN [facility] Comment on above: Advice/health educat ion Start: 07-06-2022 Telephone encounter Jai Aguilera RN [facility] Start: 07-05-2022 End: 07-06-2022 ambulatory NIKITA HEIN Facility:[facility] Start: 07-05-2022 Telephone encounter Taniya cat Work Phone: [facility] Start: 07-05-2022 End: 07-05-2022 Subsequent hospital visit by physician Mh Ip/Op Angio 1 [facility] Comment on above: Acute cholecystitis Start: 06-30-2022 Office consultation new/estab patient 60 min Ward Zuniga Work Phone: [place] [address] DO Work Phone: Start: 06-30-[address] Natan Marinelli Facility: Start: 06-27-2022 Telephone encounter Taniya cat Work Phone: [facility] Start: 06-22-2022 End: 06-22-2022 Emergency department patient visit Keith Griffith Facility:[facility] Start: 06-22-2022 End: 06-22-2022 Emergency department patient visit DO Ward Zuniga Work Phone: [facility]-Emergency Room Work Phone: Start: 06-20-2022 Orders Only Jai Aguilera RN [facility] Trauma Surgery Start: 06-17-2022 Telephone encounter Laura Faust [facility] Trauma Surgery Start: 06-16-2022 Telephone encounter Taniya Mathews deannvanessa Work Phone: [facility] Start: 06-15-2022 End: 06-18-2022 ambulatory UNKNOWN PROVIDER Facility:[facility] Start: 06-15-2022 End: 06-18-2022 Office outpatient visit 15 minutes Trauma Surgery Resident [facility] Comment on above: Acute cholecystitis (Primary Dx); Body mass index (BMI) 31.0-31.9, adult Start: 05-27-2022 ambulatory Maegan Morris RN [facility] Comment on above: Advice/health educat ion Start: 05-23-2022 Evaluation and management of inpatient JOCELYNE CONLEY Facility:[facility] Start: 05-19-2022 Evaluation and management of inpatient CONNIE COTE Facility:[facility] Start: 05-18-2022 Patient encounter status Maegan Morris RN [facility] Start: 05-17-2022 Evaluation and management of inpatient CONNIE COTE Facility:[facility] Start: 05-16-2022 Evaluation and management of inpatient CONNIE COTE Facility:[facility] Start: 05-16-2022 End: 05-16-2022 ambulatory UNKNOWN PROVIDER Facility:[facility] Start: 05-16-2022 End: 05-25-2022 Evaluation and management of inpatient WARD GRAVES Facility:[facility] Start: 05-16-2022 Emergency department patient visit CONNIE CRUZARTHY Facility:[facility] Start: 05-15-2022 End: 05-16-2022 Emergency department patient visit Keith Griffith Facility:[facility] Start: 05-15-2022 End: 05-16-2022 Emergency department patient visit DO Ward Zuniga Work Phone: [facility]Emergency [facility] Work Phone: Start: 05-15-2022 End: 05-16-2022 ambulatory UNKNOWN PROVIDER Facility:[facility] Start: 04-06-2022 End: 04-06-2022 ambulatory Ward Zuniga Facility:[facility] Start: 04-06-2022 End: 04-06-2022 ambulatory DO Ward Zuniga Work Phone: [facility] Work Phone: Start: 04-06-2022 End: 04-06-2022 Patient encounter procedure DO Wrad Zuniga Work Phone: [facility]-XRay [address] Work Phone: Start: 01-03-2022 End: 01-03-2022 ambulatory DO Ward Zuniga Work Phone: [facility] Work Phone: Start: 01-03-2022 End: 01-03-2022 Patient encounter procedure DO Ward Zuniga Work Phone: [facility] [place] Start: 12-16-2021 End: 12-16-2021 Patient encounter procedure DO Ward Zuniga Work Phone: [facility]-Digestive Health Start: 12-15-2021 End: 12-15-2021 Patient encounter procedure DO Ward Zuniga Work Phone: [facility]-Pre-Surgical Testing Start: 12-07-2021 End: 12-07-2021 ambulatory Balwinder Parker Other [employer] Other Start: 12-07-2021 Patient encounter procedure Balwinder ARMENDARIZ Gastroenterology Start: 11-30-2021 End: 11-30-2021 Patient encounter procedure MARYCARMEN NAVA [facility] [place] Start: 09-08-2021 End: 09-08-2021 ambulatory Balwinder Parker Other [employer] Other Start: 09-08-2021 Telephone encounter Balwinder Parker [facility] G[facility] Start: 07-29-2021 End: 07-29-2021 Patient encounter procedure MARYCARMEN NAVA [facility] [place] Start: 07-01-2021 End: 07-01-2021 ambulatory Balwinder Parker Other [place] [employer] Other Start: 07-01-2021 Patient encounter procedure Balwinder Parker [facility] Gastroenterology Start: 02-23-2021 End: 02-23-2021 ambulatory Ward Mtz Other [place] [employer] Other Start: 02-23-2021 Office outpatient vi sit 15 minutes Ward Mtz [facility] Vascular Surgery Start: 01-22-2021 (Sclerother) Sclerotherapy Ward Mtz [facility] Vascular Surgery Start: 01-22-2021 End: 01-22-2021 ambulatory Ward Mtz Other [place] [employer] Other Start: 01-21-2021 Telephone encounter Michael Colunga [facility] Vascular Surgery Start: 12-29-2020 Office outpatient vi sit 25 minutes Michael Colunga [facility] Neurosurgery Start: 09-07-2020 End: 09-07-2020 Patient encounter procedure Ward Zuniga Work Phone: -Ultrasound [facility] Vascular Start: 08-04-2020 End: 08-04-2020 Patient encounter procedure Ward Zuniga Work Phone: -Ultrasound [facility] Vascular Start: 07-13-2020 End: 07-13-2020 Patient encounter procedure Ward Zuniga Work Phone: -[facility] Surgery Start: 06-30-2020 End: 06-30-2020 Patient encounter procedure Ward Zuniga -Lab [facility] [place] Start: 03-31-2020 End: 03-31-2020 Admission to day [...] Work Phone: Start: 03-31-2020 Screening colonoscopy Tia Zuniga Start: 03-30-2020 SARS Antigen (LFIA) Meet [...] Mcbride H/O: hysterectomy MARYCARMEN YUSUF Hysterectomy Ward smith Work Phone: Replacement of right knee joint MARYCARMEN NAVA Screening for malign ant neoplasm of colon Michael Keanu Other Total colonoscopy Ward Zuniga Work Phone: Comment on above: 2020; Plan of Treatment Date Care Activity Detail Author Start: 01-03-2027 Cholesterol [Mass/volume] in Serum or Plasma Cholesterol [facility] Start: 12-25-2022 Influenza vaccination Influenza Vacc ine (#1) [facility] Start: 11-04-2022 Duplex scan of lower limb veins US venous duplex LE LT [facility] Start: 11-04-2022 US Lower extremity vein - left [facility] Start: 10-06-2022 FUV, Provider: Natan Marinelli, Status: Pen, Time: 1:30 PM FUV, Provider: Natan Marinelli, Status: Pen, Time: 1:30 PM -[facility] [address] DO Work Phone: Start: 08-25-2022 End: 08-25-2022 Patient encounter procedure 08/25/2022 Office Visit Cardiology Ericka Hale MD [address] [place] [address] [facility] Start: 07-13-2022 End: 07-13-2022 Patient encounter procedure 07/13/2022 Office Visit Trauma Surgery [facility] Start: 07-05-2022 End: 07-05-2022 Patient encounter procedure 07/05/2022 Appointment Radiology [facility] Start: 06-15-2022 End: 06-16-2023 RF Biliary ducts Views W contrast via existing catheter XA CHOLANGIOGRAM EXISTING ACCESS (RHETT) Imaging Routine Acute cholecystitis Expected: 06/15/2022, Expires: 06/16/2023 [facility] Work Phone: Comment on above: Expected: 06/15/2022 , Expires: 06/16/2023 Start: 05-15-2022 Plain chest X-ray XR chest 1V portab [facility] Start: 05-15-2022 XR Chest Single view [facility] Start: 05-15-2022 CT angiography of thorax CT angio chest PE protocol [facility] Start: 05-15-2022 CT Chest [facility] Start: 05-15-2022 Bacteria identified in Blood by Culture [facility] Start: 03-02-2022 Screening for malignant neoplasm of breast Mammography [facility] Start: 01-17-2022 COVID-19 Vaccine (2 - Pfizer series) COVID-19 Vaccine (2 - Pfizer series) [facility] Start: 12-25-2021 Annual Wellness Visi t (G0439) Annual Wellness Visit (G0439) [facility] Start: 12-16-2021 [facility] Start: 09-07-2020 Duplex scan of lower limb veins US venous duplex LE [facility] Start: 2018 Screening for osteoporosis Bone Densitometry [facility] Start: 2013 RSV vaccine (optiona l 60+ years) RSV vaccine (optional 60+ years) [facility] Start: 08-25-2003 Shingles (RZV) Vacci ne (1 of 2) Shingles (RZV) Vaccine (1 of 2) [facility] Start: 1998 Screening for malignant neoplasm of colon [facility] Start: 08-25-1971 Hepatitis C screening Hepatitis C [facility] Start: 08-25-1971 Tetanus + diphtheria + acellular pertussis vaccine (product) [facility] Start: 1953 Screening for malignant neoplasm of colon Colonoscopy [facility] CHOLECYSTECTOMY, LAPAROSCOPIC CHOLECYSTECTOMY, LAPAROSCOPIC Routine scheduled Acute cholecystitis [employer] CHOLECYSTECTOMY, LAPAROSCOPIC CHOLECYSTECTOMY, LAPAROSCOPIC Routine scheduled Acute cholecystitis [facility] End: 07-13-2022 Ecg routine ecg w/least 12 lds trcg only w/o i&r EKG 12 LEAD - PERFORM MUSE Routine Once for 1 Occurrences starting 07/13/2022 until 07/13/2022 [facility] Work Phone: Comment on above: Once for 1 Occurrenc es starting 07/13/2022 until 07/13/2022 Patient Education [facility] Work Phone: Patient referral [facility] Work Phone: Immunizations Immunization Date Immunization Notes Care Provider [facility] 01-02-2023 influenza virus vaccine, unspecified formulation Ketty Alicia [facility] 12-27-2021 Influenza, injectabl e, high-dose seasonal, quadrivalent, 0.7 mL, preservative free ([id number]) Maegan Morris RN [facility] 12-27-2021 SARS-CoV-2 (COVID-19 ) [id number] Ketty Alicia [facility] 12-27-2021 influenza virus vaccine, unspecified formulation [facility] 03-25-2021 COVID-19 mRNA Comircherrie (Pfizer) DO Ward Zuniga Work Phone: [facility] 01-25-2021 SARS-CoV-2 (COVID-19 ) Ad26 vaccine, recombinant MARYCARMEN NAVA [facility] 01-07-2021 influenza virus vaccine, unspecified formulation Cardia [facility] 01-07-2021 influenza, high dose seasonal, preservative-free Maegan Morris RN [facility] 01-07-2021 pneumococcal polysaccharide vaccine, 23 valent Maegan Morris RN [facility] 07-10-2020 COVID-19 mRNA, Comirnaty ([employer]) DO Ward Loomisman Work Phone: [facility] 06-25-2020 SARS-CoV-2 (COVID-19 ) Ad26 vaccine, recombinant MARYCARMEN NAVA [facility] 06-18-2020 COVID-19 mRNA, Comirnaty (Pfizer) DO [employer] Work Phone: [facility] 05-25-2020 SARS-CoV-2 (COVID-19 ) Ad26 vaccine, recombinant MARYCARMEN NAVA [facility] 12-09-2019 influenza virus vaccine, unspecified formulation Cardia [facility] 12-09-2019 pneumococcal conjuga te vaccine, 13 valent Maegan Morris RN [facility] 12-09-2019 Seasonal trivalent influenza vaccine, adjuvanted, preservative free Maegan Morris RN [facility] 01-30-2019 KENALOG - 10 mg Michael Colunga Other [employer] Other 12-27-2018 influenza virus vaccine, unspecified formulation Ketty Orzech [facility] 12-27-2018 Seasonal trivalent influenza vaccine, adjuvanted, preservative free Maegan Morris RN [facility] 01-25-2018 influenza virus vaccine, unspecified formulation Ketty Orzech [facility] 01-25-2018 Influenza, injectabl e, Madin Ghislaine Canine Kidney, quadrivalent with preservative Maegan Morris RN [facility] 12-27-2016 influenza virus vaccine, unspecified formulation Ketty Orzech [facility] 12-27-2016 influenza, injectabl e, quadrivalent, preservative free Maegan Morris RN [facility] 07-07-2016 Kenalog -40 mg Michael Colunga Other [employer] Other 01-25-2016 Kenalog -40 mg Michael Colunga Other [employer] Other 11-26-2015 influenza virus vaccine, unspecified formulation Ketty Orzech [facility] 10-19-2015 Kenalog -40 mg Michael Colunga Other [employer] Other 01-22-2013 influenza virus vaccine, unspecified formulation Ketty Orzech [facility] 01-22-2013 influenza, seasonal, injectable Maegan Morris RN [facility] 03-13-2009 novel [id number], preservative-free, injectable Maegan Morris RN [facility] 01-05-2000 hepatitis B vaccine, adult dosage Maegan Morris RN [facility] 08-02-1999 hepatitis B vaccine, adult dosage Maegan Morris RN [facility] 06-29-1999 hepatitis B vaccine, adult dosage Maegan Morris RN [facility] Payers Date Payer Category Payer Self-pay [id number] 2022 Medicare [id number] 2022 Medicare [employer] [id number] 2022-Present [address] [place] [address] HMO [id number] 2022 Unknown [id number]. 1.13.56.2.7.3.6 [id number] 2021 Unknown [id number] 1953 Unknown [id number] 2.16.840.1.727745.3.579.2. 1953 Unknown [id number] 2.16.840.1.185022.3.579.2.73 1953 Unknown [id number] 2.16.840.1.777366.3.579.2. 1953 Unknown [id number] 2.16.840.1.800893.3.579.2.73 1953 Unknown [id number] 2.16840.1.512832.3.579.2. 1953 Unknown [id number] 2.16.840.1.872818.3.579.2.73 1953 Unknown [id number] 2.16.840.1.004944.3.579.2. 1953 Unknown [id number] 2.16.840.1.545846.3.579.2.73 1953 Unknown [id number] 2.16.840.1.987508.3.579.2.73 1953 Unknown [id number] 2.16.840.1.011467.3.579.2.73 1953 Unknown [id number] 2.16.840.1.412049.3.579.2.73 1953 Unknown [id number] 2.16.840.1.855676.3.579.2.73 1953 Unknown [id number] 2.16.840.1.370268.3.579.2. 1953 Unknown [id number] 2.16.840.1.168419.3.579.2. 1953 Unknown [id number] 2.16.840.1.386782.3.579.2. 1953 Unknown [id number] 2.16.840.1.031189.3.579.2. 1953 Unknown [id number] 2.16.840.1.874658.3.579.2.356 1953 Unknown [id number] 2.16.840.1.472279.3.579.2.356 1953 Unknown [id number] 2.16.840.1.897868.3.579.2 1953 Unknown [id number] 2.16.840.1.736279.3.579.2. 1953 Unknown [id number] 2.16.840.1.307469.3.579.2. 1953 Unknown [id number] 2.16.840.1.553507.3.579.2. 1953 Unknown [id number] 2.16.840.1.523263.3.579.2 1953 Unknown [id number] 2.16.840.1.964216.3.579.2. 1953 Unknown [id number] 2.16.840.1.406271.3.579.2.1259 1953 Unknown [id number] 2.16.840.1.786437.3.579.2.1258 1953 Unknown [id number] 2.16.840.1.898517.3.579.2.1258 1953 Unknown [id number] 2.16.840.1.001824.3.579.2.1258 1953 Unknown [id number] 2.16.840.1.712793.3.579.2.1258 1953 Unknown [id number] 2.16.840.1.493690.3.579.2.1258 1953 Unknown [id number] 2.16.840.1.766951.3.579.2.1258 Unknown [id number] Unknown [id number] 2.16.840.1.159808.3.579.2.531 Unknown [id number] 2.16.840.1.885931.3.579.2.531 Unknown [id number] 2.16.840.1.568466.3.579.2.531 Unknown [id number] 2.16.840.1.084562.3.579.2.531 Unknown [id number] 2.840.1.163814.3.579.2.531 Unknown [id number] 2.16840.1.335219.3.579.2.531 Unknown [id number] 2.16840.1.788513.3.579.2.531 Unknown [id number] 2.16840.1.927786.3.579.2.531 Unknown [id number] 2.16.840.1.304002.3.579.2.531 Social History Date Type Detail Facility Start: 03-31-2020 End: 02-27-2023 Tobacco smoking status NCIS Ex-smoker (finding) [facility] Start: 1955 Sex Assigned At Female F [facility] Sex Assigned At Female [employer] Other Start: 05-15-2022 End: 12-17-2022 Tobacco smoking status NCIS Current some day smoker [facility] End: 03-27-2009 History of tobacco use [...] Start: 06-22-2022 End: 03-02-2023 Tobacco smoking status NCIS Never smoked tobacco (finding) [facility] Tobacco smoking status Never [facility] Goals Date Patient Goal Desired Activity /State Functional Status Date Assessment Result Facility 03-02-2023 Functional Status N/A [facility] 09-26-2022 Functional Status N/A [facility] 07-18-2022 Functional Status No [facility] 11-30-2021 Functional Status N/A [facility] Clinical Notes 12-29-2020 to 03-02-2023 Note [...] provider. Document Revised: 07/22/2021 Document Reviewed: 07/22/2021 [employer] Patient Education 2022 [employer]. Follow Up Care 11/30/2021 13:34:28 With:DARRYN Alicia APRN, SHAHNAZ Ovalles, URL Address: When:Within 1 Year(s) [facility] Allyson 02-27-2023 Progress note Note Date/Time February 27, 2023 2:36pm [facility] [address] [place] [address] Wound Center Provider Note Signed Patient: Gerry Victoria MR#: [id number] : 1955 Acct:[id number] Age/Sex: 67 / F Copies to: DO Adleia Cruz APRN~ HPI Date of Visit Date of Visit: Date of Service: 02/27/2023 Time of Service: 14:33 Narrative HPI: 02/02/23 Gerry is a 67 year old presenting to [facility] wound care for an initialvisit for [...] tolerate the treatment. Had been referred to [place] [facility] at her last visit here and will have to see what happened with that. 02/13/23 appears to have fungal rash, topical nystatin was escribed, unna wrap, [facility] as before 02/27/23 no fungal rash but now looks like dermatitis and so topical steroid and coconut oil was applied, has venous procedure in [place] tomorrow, 2 week appt here, can call if she feels like she needs an antibiotic if the steroid doesn't calm down the skin Subjective Pain Left Lower Leg: Pain Description: Intermittent Pain Intensity: 0 Wound/Ulcer History When did wound start?: January 2023 Left lateral lower leg ulcer Mode of Arrival/ Juice Mixer: Personal vehicle Lives with:: Alone Appetite Description: Within Normal Limits Who helps w/ dressing change?: Home Health Why Do You Need Help?: Can't Reach Ulcer, Limited mobility, Unsafe leave home byself and Taxing effort to leave home Smoking Status: Former smoker [facility] Medical History (Updated 02/27/23 @ 14:36 by [...] Appearance: Beefy Red, Epithelial Tissue or Bridge, Edgeworth and Yellow Percent of Wound Bed Granulated/Red: 98 Percent of Devitalized: 2 Length (cm): 12.0 Width (cm): 10.0 Depth (cm): 0.1 CM Sq: 120.000 Surrounding Tissue Appearance: Edgeworth and Hyperpigmented Surrounding Tissue Temp: Warm Drainage [...] By: <Electronically signed by CUBA Saldana> 02/27/[address] [place] [address] Ctr Work Phone: 1(396) 752-853511-20-2023 Progress note Author Adelia Saldana [facility] February 13, 2023 10:33am Note Date/Time February 13, 2023 10:33am [facility] [address] [place] [address] Wound Center Provider Note Signed Patient: Gerry Victoria MR#: [id number] : 1955 Acct:[id number] Age/Sex: 67 / F Copies to: DO Adelia Cruz APRN~ HPI Date of Visit Date of Visit: Date of Service: 02/13/2023 Time of Service: 10:31 Narrative HPI: 02/02/23 Gerry is a 67 year old presenting to [facility] wound care for an initialvisit for [...] rash, topical nystatin was escribed, unna wrap, [facility] as before Subjective Pain Left Lower Leg: Pain Description: Intermittent Pain Intensity: 4 Pain Management Techniques Other/Comment: PAIN IS PINCHY Wound/Ulcer History When did wound start?: January 2023 Left lateral lower leg ulcer Mode of Arrival/ Juice Mixer: Personal vehicle Lives with:: Alone Appetite Description: Within Normal Limits Who helps w/ dressing change?: Home Health Why Do You Need Help?: Can't Reach Ulcer, Limited mobility, Unsafe leave home byself and Taxing effort to leave home Smoking Status: Former smoker [facility] Medical History (Updated 02/13/23 @ 10:33 by [...] Breakdown Bed Appearance: Epithelial Tissue or Bridge, Edgeworth and Yellow Percent of Wound Bed Granulated/Red: 95 Percent of Devitalized: 5 Length (cm): 12.5 Width (cm): 8.5 Depth (cm): 0.1 CM Sq: 106.250 Surrounding Tissue Appearance: Edgeworth and Hyperpigmented Surrounding Tissue Temp: Warm Drainage [...] Signed By: <Electronically signed by CUBA Saldana> 02/13/231032 [facility] Work Phone: 1(678) 741-908311-09-2023 Progress note Author Humphrey Major [facility] February 02, 2023 9:37am Note Date/Time February 02, 2023 7 :50am [facility] [address] [place] [address] Wound Center Provider Note Signed Patient: Gerry Victoria MR#: [id number] : 1955 Acct:[id number] Age/Sex: 67 / F Copies to: MD Ward Almaguer DO Tonia Copsey, APRN~ HPI Date of Visit Date of Visit: Date of Service: 02/02/2023 Time of Service: 07:50 Narrative HPI: 02/02/23 Gerry is a 67 year old presenting to [facility] wound care for an initialvisit for [...] lateral lower leg ulcer Mode of Arrival/ Juice Mixer: Personal vehicle Lives with:: Alone Appetite Description: Within Normal Limits Who helps w/ dressing change?: Home Health Why Do You Need Help?: Can't Reach Ulcer, Limited mobility, Unsafe leave home byself and Taxing effort to leave home Smoking Status: Former smoker [facility] Medical History (Updated 02/02/23 @ 07:52 by [...] Stasis Ulcer Thickness: Skin Breakdown Bed Appearance: Edgeworth and Yellow Percent of Wound Bed Granulated/Red: 90 Percent of Devitalized: 10 Length (cm): 4 Width (cm): 2 Depth (cm): 0.1 CM Sq: 8.000 Surrounding Tissue Appearance: Edgeworth and Hyperpigmented Surrounding Tissue Temp: Warm Drainage [...] signed by MD Humphrey Major> 02/02/23 0937 [facility] Ctr Work Phone: [phone]) 828-140910-09-2023 Evaluation note* Encounter Date Diagnosis Assessment Notes [...] in a month to assess her progress. [employer] Other 07-31-2023 Evaluation note* Encounter Date Diagnosis [...] her back when the ultrasound is complete. [employer] Other 07-11-2023 NoteMicrobiology PROCEDURE: Blood Culture Charcoal [R1] SOURCE: Blood BODY SITE: Arm L COLLECTED DATE/TIME: 09/27/2022 01:12 EDT RECEIVED DATE/TIME: 09/27/2022 01:37 EDT START DATE/TIME: 09/27/2022 01:37 EDT FREE TEXT SOURCE: ELLEN Mckenna PA-C, Michelle Mckenna PA-C, Michelle J. J. FINAL REPORTS Final Report [] Verified Date/Time: 10/04/2022 07:00 EDT No growth at 7 days. Performing Locations R1: This [facility] performed at: [facility], [address] [place] [address], [id number], [facility]Access Hospital DaytonComment on above:Performed By: #### [id number] #### [facility] [address] [place] [address] [id number] NoteMicrobiology PROCEDURE: Blood Culture Charcoal [R1] SOURCE: Blood BODY SITE: Arm R COLLECTED DATE/TIME: 09/27/2022 01:22 EDT RECEIVED DATE/TIME: 09/27/2022 01:37 EDT START DATE/TIME: 09/27/2022 01:37 EDT FREE TEXT SOURCE: rt susan Mckenna PA-C, Michelle Mckenna PA-C, Michelle Flores FINAL REPORTS Final Report [] Verified Date/Time: 10/04/2022 07:00 EDT No growth at 7 days. Performing Locations R1: This test was performed at: [facility], [address] [place] [address], [id number] [place] [address], [id number] Crane StreetComment on above:Performed By: #### [id number] #### [facility] [address] [place] [address] [phone] Evaluation + Plan noteExtracted from: Title:Admission H & P Author:Maliha PADILLA DO Date:09/27/22 1. Cellulitis of leg (L03.11 9: Cellulitis of unspecified part of limb) IV Zosyn. Patient was given 1 dose of vancomycin in the emergency department. Will screen for MRSA. If MRSA screen is positive we will continue vancomycin. 2. CAD (coronary atherosclerotic disease) (I25.10: Atherosclerotic heart disease of [place] coronary artery without angina pectoris) No active [...] deep vein thrombosis (DVT) prophylaxis (Z79.899: Other senior living (current) drug therapy) SCD, enoxaparin Orders: acetaminophen, [...] Date:12/01/2022 01:00:00 PM Scheduled Provider:MARYCARMEN NAVA PA-C Location:[facility] Appointment Type:URO Office Visit Diagnostic Tests Pending * Blood Culture Charcoal 09/27/22 * Blood Culture Charcoal 09/27/22 * MRSA Screen 09/27/22 * CBC w/ Auto Diff 09/28/22 * Basic Metabolic Panel 09/28/22 * Magnesium Level 09/28/22 [facility]07-04-2023 NoteI was called to the bedside [...] soon as possible. Alexx Beal DO, FAAEMFisher St. Agnes HospitalComment on above:Result Comment: Electronically Signed By: Alexx Beal DO\.br\Date and Time Signed: 09/27/22 08:17 [id number] Hospital Discharge instructions Patient Education 09/27/2022 08:15:11 Cellulitis, Adult, Yjgz-dc-Bfmn Cellulitis, Adult Cellulitis is a skin infection. [...] Follow these instructions at home: Medicines Take yzlh-bxp-hqidgig and prescription medicines only as told by [...] provider. Document Revised: 12/23/2021 Document Reviewed: 12/23/2021 [employer] Patient Education 2022 [employer]. Follow Up Care 09/26/2022 22:54:12 With:WARD ZUNIGA Address: [address] [place] [id number] When:09/30/2022 [facility]07-04-2023 NoteChief Complaint pt to ED with [...] Low (09/27/22 01:12:00) HGB: 9.6 gm/dL Low (09/27/22:12:00) Hct: 29.2 % Low (09/27/22:12:00) MCV: 79.9 fL Low (09/27/22:12:00) MCH: 26.4 pg Low (09/27/22:12:00) MCHC: 33 gm/dL (09/27/22:12:00) RDW: 15.9 % High (09/27/22:12:00) Platelet: 249 E9/L (09/27/22:12:00) MPV: 7.9 fL (09/27/22:12:00) Neutro Auto: 61.4 % (09/27/22:12:00) Lymph Auto: 18 % (09/27/22:12:00) [place] Auto: 11.2 % (09/27/22:12:00) Eos Auto: 8.4 % High (09/27/22:12:) Basophil Auto: 1 % (09/27/22:12:00) Neutro Absolute: 3.6 E9/L (09/27/22:12:00) Lymph Absolute: 1.1 E9/L (09/27/22:12:00) [place] Absolute: 0.7 E9/L (09/27/22:12:00) Eos Absolute: 0.5 E9/L (09/27/22:12:00) Basophil Absolute: 0.1 E9/L (09/27/22:12:00) Sed Rate Automated: 25 mm/hr (09/27/22:12:00) Glucose Lvl: 84 mg/dL (09/27/22:12:00) BUN: 17 mg/dL (09/27/22:12:00) Creatinine: 1.2 mg/dL (09/27/22:12:00) eGFR: 49 mL/min/1.73 m2 Low (09/27/22:12:00) BUN/Creat Ratio: 14 (09/27/22:12:00) Sodium Lvl: 138 mmol/L (09/27/22:12:00) Potassium Lvl: 3.6 mmol/L (09/27/22 01:12:00) Chloride: 101 mmol/L (09/27/22:12:00) CO2: 29 mmol/L (09/27/22:12:00) AGAP: 12 mEq/L (09/27/22 01:12:00) Calcium Lvl: 8.9 mg/dL (09/27/22 01:12:00) Alk Phos: 79 Int._Unit/L (09/27/22:12:00) ALT: 11 Int._Unit/L (09/27/22:12:00) AST: 19 Int._Unit/L (09/27/22:12:00) Total Protein: 7 gm/dL (09/27/22:12:00) Albumin Lvl: 3.8 gm/dL (09/27/22:12:00) Globulin: 3.2 gm/dL (09/27/22:12:00) A/G Ratio: 1.2 (09/27/22:12:00) Bili Total: 0.6 mg/dL (09/27/22 01:12:00) Bili Direct: 0.1 mg/dL (09/27/22 01:12:00) Bili Indirect: 0.5 mg/dL (09/27/22 01:12:00) Lactic Acid Lvl: 0.5 mmol/L (09/27/22 01:12:00) CRP: 7.5 mg/dL High (09/27/22 01:12:00) Assessment/Plan 1. Cellulitis of leg (L03.119: Cellulitis of unspecified part of limb) IV Zosyn. Patient was given 1 dose of vancomycin in the emergency department. Will screen for MRSA.If MRSA screen is positive we will continue vancomycin. 2. CAD (coronary atherosclerotic disease) (I25.10: Atherosclerotic heart disease of [place] coronaryartery without angina pectoris) No active anginal complaints. We will resume home medications once reconciled 3. RLS (restless legs syndrome) (G25.81: Restless legs syndrome) Resume home medications once reconciled. 4. Hypo (more content not included)...[facility] DaytonComment on above:Result Comment: Electronically Signed By: Maliha PADILLA DO.dahlia\Date and Time Signed: 09/27/22 04:19 [id number] Hospital Discharge instructions Patient Education 07/26/2022 13:13:28 Post Op Patient Instructions - FT (CUSTOM) 07/26/2022 12:47:31 Minimally Invasive Cholecystectomy, Care After, Dhxp-nj-Tmya Minimally Invasive Cholecystectomy, Care After What can [...] Follow these instructions at home: Medicines Take omjg-hhn-ywvcbyn and prescription medicines only as told by [...] cannot use soap and water, use hand dairy frozen manager. ?Change your bandage. ?Leave stitches (sutures) or [...] provider. Document Revised: 09/14/2021 Document Reviewed: 09/14/2021 [employer] Patient Education 2022 [employer]. 07/26/2022 12:45:51 Cholelithiasis Cholelithiasis Cholelithiasis is a [...] Follow these instructions at home: Medicines Take xehw-uzs-lutfqrh and prescription medicines only as told by [...] important. Where to find more information National [place] of Diabetes and Digestive and Kidney Diseases: [...] provider. Document Revised: 02/03/2020 Document Reviewed: 02/03/2020 [employer] Patient Education 2022 [employer]. Follow Up Care 07/15/2022 10:10:38 With:trauma clinic Address: [address] [place] [address], second floor, [address] [place] [address]- [phone] When:1 to 2 weeks Comments:plan for telephone follow up 08/05/22. We will call you between the hours of 10 am and 1pm on that day. [facility]05-02-2023 Evaluation + Plan noteExtracted from: Title:ANES Post General Author:Hugo Winston DO Date:07/26/22 Plan Transfer/Discharge: Patient exhibiting no signs of N/V. Hydration status is adequate. Extracted from: Title:Mundo Basic PRE Author:Luca Winston DO Date:07/26/22 Plan [place] [employer] of Anesthesiologists (ASA) physical status classification: Class III. Anesthetic Preoperative Plan: Anesthesia General. Extracted from: Title:Mundo Delgado PRE Author:Luca Winston DO Date:07/26/22 Plan [place] [employer] of Anesthesiologists (ASA) physical status classification: Class III. Anesthetic Preoperative Plan: Anesthesia General. Future Appointments Appointment Date:08/05/2022 11:00:00 AM Scheduled Provider: Location:.Trauma Clinic Appointment Type:Trauma Phone Visit (FT) Appointment Date:12/01/2022 01:00:00 PM Scheduled Provider:MARYCARMEN NAVA PA-C Location:[facility] Appointment Type:URO Office Visit [facility]04-19-2023 NoteProgress Note: Clinic Visit after hospitalization [...] perc merlyn tube until surgery [facility] History of Present illness Narrative* Nikita Hein [...] surgery Nikita Hein MD documented in this [id number] NoteIR CONSULT Procedure: cholangiogram and percutaneous cholecystotomy [...] at home Case discussed with IR attending gas operations superintendent El Hollis residential monitor PGY-3[facility] [id number] History and physical note* El Hollis MD [...] at home Case discussed with IR attending gas operations superintendent El Hollis residential monitor PGY-3 [facility] Work Phone: 1(166) 561-992904-12-2023 History and physical note* El Hollis MD [...] at home Case discussed with IR attending gas operations superintendent El Hollis residential monitor PGY-3 documented in this [id number] Telephone encounter Note* Telephone Encounter - Kendra Harrison RN - 07/06/2022 8:53 PM EDT Situation: Pt called states she is unsure how to flush gall bladder tube since it was changed yesterday. Background: 07/05/22 Procedure: Cholecystogram with catheter exchange Assessment: See triage Recommendation: Contacted IR gas operations superintendent, Dr Hollis advised for pt to contact [...] No Protocols used: Post-Op Incision Symptoms and Yuovyotkj-N-KX [id number] Miscellaneous Notes* Telephone Encounter - Kendra Harrison RN - 07/06/2022 8:53 PM EDT Situation: Pt called states she is unsure how to flush gall bladder tube since it was changed yesterday. Background: 07/05/22 Procedure: Cholecystogram with catheter exchange Assessment: See triage Recommendation: Contacted IR gas operations superintendent, Dr Hollis advised for pt to contact [...] No Protocols used: Post-Op Incision Symptoms and Pwkvnvrmf-U-EE documented in this [id number] Telephone encounter Note* Telephone Encounter - Taniya Coley - 07/06/2022 9:10 AM EDT Sindy Ratliff Patient: Gerry Victoria [phone] Ms. Victoria has an appt grace/ on 07/13/2022 at 2:45 pm. Pt complaining about severe pain last night, when she moved, it was an ache. She did not tell me where the pain was coming from, when I asked her. She stated that today she feels better, but she was concerned about the pain she experienced last night 07/05/2022. [id number] Miscellaneous Notes* Telephone Encounter - Taniya Coley - 07/06/2022 9:10 AM EDT Sindy Gaudencio Patient: Gerry Victoria [phone] Ms. Victoria has an appt grace/ on 07/13/2022 at 2:45 pm. Pt complaining about severe pain last night, when she moved, it was an ache. She did not tell me where the pain was coming from, when I asked her. She stated that today she feels better, but she was concerned about the pain she experienced last night 07/05/2022. documented in this [id number] NoteEXAMINATION: XA CHOLANGIOGRAM EXISTING ACCESS (RHETT) 07/05/2022 [...] successful exchange of drainage catheter. [facility]CRO[facility] NotePOST-PROCEDURE NOTE Procedure: Cholecystogram with catheter exchange Pre-operative Diagnosis: History of acute cholecystitis managed with existing catheter. Post-operative Diagnosis: Same as above Attending: Dr. Fernando Cistern Room Working Supervisor: None A TIME OUT was performed prior [...] full procedural details. Marcella Fernando MD [facility]04[facility] NoteEXAMINATION: XA CHOLANGIOGRAM EXISTING ACCESS (RHETT) [...] successful exchange of drainage catheter. MACRO: None [id number] NotePre-Procedure Note HISTORY: Procedure: Cholangiogram via existing [...] Directives (Living will, health care power of clinical manager): none Patient Recent Code Status: Prior Code Status For This Procedure: Full Code Marcella Fernando MD [facility]04[facility] Telephone encounter Note* Telephone Encounter - Anya Morelos - 07/05/2022 3:11 PM EDT Patient returned clinic call. Informed of message per notes below. Patient verbalized understandingand voiced no further questions. [id number] Miscellaneous Notes* Telephone Encounter - Anya Morelos [...] left the voice message. documented in this [id number] Miscellaneous Notes* Telephone Encounter - Anya Morelos [...] appt date and time. documented in this [id number] Telephone encounter Note* Telephone Encounter - Taniya [...] and accepted the appt date and time. [id number] Note* Post-Procedure Note - aMrcella Fernando MD - 07/05/2022 2:44 PM EDT POST-PROCEDURE NOTE Procedure: Cholecystogram with catheter exchange Pre-operative Diagnosis: History of acute cholecystitis managed with existing catheter. Post-operative Diagnosis: Same as above Attending: Dr. Fernando Cistern Room Working Supervisor: None A TIME OUT was performed prior [...] full procedural details. Marcella Fernando MD Radiology [employer] Work Phone: 1(227) 476-815304-11-2023 Miscellaneous Notes* Post-Procedure Note - Marcella Fernando MD - 07/05/2022 2:44 PM EDT POST-PROCEDURE NOTE Procedure: Cholecystogram with catheter exchange Pre-operative Diagnosis: History of acute cholecystitis managed with existing catheter. Post-operative Diagnosis: Same as above Attending: Dr. Fernando Cistern Room Working Supervisor: None A TIME OUT was performed prior [...] Directives (Living will, health care power of clinical manager): none Patient Recent Code Status: Prior Code Status For This Procedure: Full Code Marcella Fernando MD Radiology documented in this [id number] Note* Pre-Procedure Note - Marcella Fernando MD [...] Directives (Living will, health care power of clinical manager): none Patient Recent Code Status: Prior Code Status For This Procedure: Full Code Marcella Fernando MD Radiology [id number] Telephone encounter Note* Telephone Encounter - Taniya Coley - 06/27/2022 1:27 PM EDT Pt called c/o sx of poor leg circulation,and Gaudencio spoke to her to triage the patient. [id number] Miscellaneous Notes* Telephone Encounter - Taniya Coley - 06/27/2022 1:27 PM EDT Pt called c/o sx of poor leg circulation,and Gaudencio spoke to her to triage the patient. documented in this [id number] NoteProgress Note: Clinic Visit after hospitalization for [...] for 2 mg QID [facility] Hein [facility]03-[facility] Note* Addendum Note - Nikita Hein MD - 06/18/2022 3:47 PM EDTAddended by: NIKITA HEIN on: 06/18/2022 03:47 PM Modules accepted: Orders, Level of Service [id number] Miscellaneous Notes* Addendum Note - Nikita Hein MD - 06/18/2022 3:47 PM EDTAddended by: NIKITA HEIN on: 06/18/2022 03:47 PM Modules accepted: Orders, Level of Service documented in this [id number] History of Present illness Narrative* Nikita Hein [...] QID Nikita Hein MD documented in this [id number] Telephone encounter Note* Telephone Encounter - Laura Faust - 06/17/2022 11:27 AM EDT Sophy transferred phone call to me, when the patient and I started talk I realized it was the patientI had Sophy working on since Dr. Hein seen her in clinic on [facility]. Sophy said she spoke to patient yesterday, so I just told her what Sophy told me that Dr. Hein will handle the Rx to have the scan done out where she lives and that Sophy will get it to her in the mail by Monday [id number] Miscellaneous Notes* Telephone Encounter - Laura Faust - 06/17/2022 11:27 AM EDT Sophy transferred phone call to me, when the patient and I started talk I realized it was the patientI had Sophy working on since Dr. Hein seen her in clinic on [facility]. Sophy said she spoke to patient yesterday, so I just told her what Sophy told me that Dr. Hein will handle the Rx to have the scan done out where she lives and that Sophy will get it to her in the mail by Monday documented in this [id number] Telephone encounter Note* Telephone Encounter - Taniya Coley - 06/16/2022 2:02 PM EDT Sindy Morales, Patient: Gerry Victoria [phone] Ms. Victoria had a visit with Dr. Conley on Monday06/15/2022, seen by Dr. Hein in yesterday's clinic. Questions: Ultrasound order was placed for Ms. Victoria, do she have to come her to [facility] to have the ultrasound, or can she have the ultrasound done in [place]? (there is not a [facility] in [place]) Medication refill of Ropinirole 2mg 1-tab QD was not received by her pharmacy, can you call in the prescription to my pharmacy at ([facility] ) [phone]?. I am waiting for Carmen, or and or Dr. Conley to respond. Sophy Pt was told that Dr. Hein was out of town and that she will receive the prescription in the mail.I will call the patient to find out what hospitals she will be going to in [place] [phone] fax:[phone] Gaudencio spoke to her about the prescription and to contact her pharmacy about the ropinirole 2 mg to [facility]. Addendum: IR procedure, Gaudencio will follow-up with [facility] to see if they can do the IR procedure, we will submit or fax orders at that time. [id number] Miscellaneous Notes* Telephone Encounter - Taniya Coley - 06/16/2022 2:02 PM EDT Sindy Morales, Patient: Gerry Victoria [phone] Ms. Victoria had a visit with Dr. Conley on Monday06/15/2022, seen by Dr. Hein in yesterday's clinic. Questions: Ultrasound order was placed for Ms. Victoria, do she have to come her to [facility] to have the ultrasound, or can she have the ultrasound done in [place]? (there is not a [facility] in [place]) Medication refill of Ropinirole 2mg 1-tab QD was not received by her pharmacy, can you call in the prescription to my pharmacy at ([facility] ) [phone]?. I am waiting for Carmen, or and or Dr. Conley to respond. Sophy documented in this [id number] Miscellaneous Notes* Telephone Encounter - Taniya Coley - 06/16/2022 2:02 PM EDT Sindy Carmen, Patient: Gerry Victoria [phone] Ms. Victoria had a visit with Dr. Conley on Monday06/15/2022, seen by Dr. Hein in yesterday's clinic. Questions: Ultrasound order was placed for Ms. Victoria, do she have to come her to [facility] to have the ultrasound, or can she have the ultrasound done in [place]? (there is not a [facility] in [place]) Medication refill of Ropinirole 2mg 1-tab QD was not received by her pharmacy, can you call in the prescription to my pharmacy at ([facility] ) [phone]?. I am waiting for Carmen, or and or Dr. Conley to respond. Sophy Knowles was told that Dr. Hein was out of town and that she will receive the prescription in the mail.I will call the patient to find out what hospitals she will be going to in [place] [phone] fax:[phone] Gaudencio spoke to her about the prescription and to contact her pharmacy about the ropinirole 2 mg to [facility]. documented in this [id number] Miscellaneous Notes* Telephone Encounter - Taniya Coley - 06/16/2022 2:02 PM EDT Sindy Carmen, Patient: Gerry Victoria [phone] Ms. Victoria had a visit with Dr. Conley on Monday06/15/2022, seen by Dr. Hein in yesterday's clinic. Questions: Ultrasound order was placed for Ms. Victoria, do she have to come her to [facility] to have the ultrasound, or can she have the ultrasound done in [place]? (there is not a [facility] in [place]) Medication refill of Ropinirole 2mg 1-tab QD was not received by her pharmacy, can you call in the prescription to my pharmacy at ([facility] ) [phone]?. I am waiting for Carmen, or and or Dr. Conley to respond. Sophy Pt was told that Dr. Hein was out of town and that she will receive the prescription in the mail.I will call the patient to find out what hospitals she will be going to in [place] [phone] fax:[phone] Gaudencio spoke to her about the prescription and to contact her pharmacy about the ropinirole 2 mg to [facility]. Addendum: IR procedure, Gaudencio will follow-up with [facility] to see if they can do the IR procedure, we will submit or fax orders at that time. documented in this [id number] Telephone encounter Note* Telephone Encounter - Maegan [...] Not assessed Protocols used: Post-Op Symptoms and Vhndoawfu-H-BN, Breathing Westwivqqm-A-JO [id number] Miscellaneous Notes* Telephone Encounter - Maegan Morris [...] Not assessed Protocols used: Post-Op Symptoms and Rffznrbgn-P-KQ, Breathing Xtjysuecam-E-IC documented in this [id number] NoteDISCHARGE SUMMARY [address] [address] Gerry Victoria Date of : 1955 66 year oldfemale Attending Ward Graves MD Date of Admission 05/16/2022 Date of Discharge 05/25/2022 [facility] DIVISION OF ACUTE CARE SURGERY EMERGENCY [...] and h/o paroxysmal SVT who presented to critical access hospital with epigastric pain with nausea and vomiting. Patient describes onset of pain on prior day that has increased since then. Shortly after onset of pain, patient experienced nausea and persistent vomiting, now unable to tolerate PO intake. Denies fevers, chills. She presented to [facility] where EKG demonstrated 'hyperacute T waves' in multiple leads without evidence of STEMI. Troponin originally 139, then 381 on repeat. CTA was performed and did not reveal dissection or PE. CT did demonstrate acute inflammation of the gallbladder with a stone at the neck. A central line was placed for resuscitation purposes and the patient was transferred to [facility] for further evaluation. Prior to transfer, lab work without leukocytosis (10.7) and LFTs/Lipase without abnormality. ACS consulted upon arrival to [facility] for cholecystitis. She was admitted to the SDU for telemetry under EGS but transferred to [facility] on 05/20/22 SIGNIFICANT FINDINGS: N/A Incidental findings reviewed by AEM on 05/24/22. No incidental findings to discuss. HOSPITAL COURSE: 05/16/2022: Transferred from [facility] ED with cholecystitis, up-trending troponin, and unclear EKG findings. Up-trending leukocytosis, down-trending troponin by PM. Cardiology following. Zosyn started. 05/17/2022: rCT with worsening gallbladder inflammation w/o free air or rupture. Percutaneous cholecystotomy tube placement with IR. 05/19/2022: Bilious emesis, NGT placed 05/20/2022: Transferred to [facility] 05/21/2022: Zosyn course completed (4 days s/p drain) 05/22/2022: YANN, ongoing bilious NGT output 05/23/2022: [facility] with mild non-obstructive diffuse coronary artery [...] - Seen resting supine in bed in [facility] -Neurologic - No focal deficits, clear [...] venous stasis t (more content not included)...[facility] [id number] NoteDISCHARGE SUMMARY [place] [phone] Gerry Victoria Date of : 1955 66 year oldfemale Attending Ward Graves MD Date of Admission 05/16/2022 Date of Discharge 05/24/2022 [facility] DIVISION OF ACUTE CARE SURGERY EMERGENCY [...] and h/o paroxysmal SVT who presented to critical access hospital with epigastric pain with nausea and vomiting. Patient describes onset of pain on prior day that has increased since then. Shortly after onset of pain, patient experienced nausea and persistent vomiting, now unable to tolerate PO intake. Denies fevers, chills. She presented to [facility] where EKG demonstrated 'hyperacute T waves' in multiple leads without evidence of STEMI. Troponin originally 139, then 381 on repeat. CTA was performed and did not reveal dissection or PE. CT did demonstrate acute inflammation of the gallbladder with a stone at the neck. A central line was placed for resuscitation purposes and the patient was transferred to [facility] for further evaluation. Prior to transfer, lab work without leukocytosis (10.7) and LFTs/Lipase without abnormality. ACS consulted upon arrival to [facility] for cholecystitis. She was admitted to the SDU for telemetry under EGS but transferred to [facility] on 05/20/22 SIGNIFICANT FINDINGS: N/A Incidental findings reviewed by AEM on 05/24/22. No incidental findings to discuss. HOSPITAL COURSE: 05/16/2022: Transferred from [facility] ED with cholecystitis, up-trending troponin, and unclear EKG findings. Up-trending leukocytosis, down-trending troponin by PM. Cardiology following. Trelln started. 05/17/2022: rCT with worsening gallbladder inflammation w/o free air or rupture. Percutaneous cholecystotomy tube placement with IR. 05/19/2022: Bilious emesis, NGT placed 05/20/2022: Transferred to [facility] 05/21/2022: Zosyn course completed (4 days s/p drain) 05/22/2022: YANN, ongoing bilious NGT output 05/23/2022: [facility] with mild non-obstructive diffuse coronary artery [...] discharge: improved Diet: (more content not included)...[employer] [id number] Note PHYSICAL THERAPY PROGRESS SUMMARY Patient seen from 932 to 09 on GC5E unit for 15 minute treatment. SUBJECTIVE: Patient Subjective/Goals: It's a good day! OBJECTIVE: Appearance: Pt in bed upon entering room w/ IR drain intact Behavior: alert,cooperative Pain: Site/Location: pt does not report pain; Pain Scale: 0/10 Pain Relief Interventions Implemented: None required; No pain at this time Mobility NA Dep Max Mod Min CG CS DS [place] I Comment Supine to sit x Via [...] With Patients permission ordered no equipment via [employer] Order. If any questions contact [facility] Provider at [phone]. Pt has rolling walker to use if [...] d/t achieving PT goals. Dara SOSA Beeper #[phone] Agree with above; D/C Acute PT this date 2* to modified (I) level of function. Tawny Peñaloza, PT, MPT (B) [phone] NA = Not Assessed, I = Independent, NY = Modified Independent, Sup = Supervised, Set up = Physical Assistance for Set-up Only, Min = Minimal Assistance, Mod = Moderate Assistance, Max = Maximal assistance; Dep = Dependent; AROM = Active Range of Motion; PROM = Passive Range of Motion; MMT = Manual Muscle TestTrihealth Good Samaritan HospitalAplicor [id number] NoteSusan Didion [id number] Procedure Indication: Other: Myocardial injury due to [...] needed: No Anticoagulation Plan: None Attending: Deandre [facility]02-26-2023 NoteOCCUPATIONAL THERAPY INITIAL EVALUATION Patient seen from [...] Dep Max Mod Min CG CS DS [place] I Set-Up Comment Feeding x Anticipated, NPO [...] Dep Max Mod Min CG CS DS [place] I Set-Up Comment Toilet Transfers x Anticipated [...] Guard Assist/Supervision 4 - Non = Modified [place]/Independent ASSESSMENT: Patient is functionally appropriate for discharge [...] Independent Patient will (more content not included)...[facility] [id number] Note PHYSICAL THERAPY PROGRESS SUMMARY Patient seen from 1:27pm to 1:47pm on GC5E unit for 20 minute treatment. SUBJECTIVE: Patient Subjective/Goals: I'm glad you're here. OBJECTIVE: Appearance: IV, Drain-IR x 1, and NG to wall suction (clamped for session) Behavior: Awake, Cooperative Pain: Site/Location: none noted during session Mobility NA Dep Max Mod Min CG CS DS NY I Comment Supine to sit x Transfers [...] With Patients permission ordered no equipment via [employer] Order. If any questions contact [facility] Provider at [phone]. 6 Clicks Basic Mobility PT 05/20/2022 Difficulty [...] NA = Not Assessed, I = Independent, NY = Modified Independent, Sup = Supervised, Set up = Physical Assistance for Set-up Only, Min = Minimal Assistance, Mod = Moderate Assistance, Max = Maximal assistance; Dep = Dependent; AROM = Active Range of Motion; PROM = Passive Range of Motion; MMT = Manual Muscle TestThe [facility] Regional HospitalAplicor [id number] NoteSICU Progress Note Gerry Victoria [id number] LOS: 4 days : Interval History/Events: Pain improved Started vomiting this am Passing gas Background: Gerry Victoria is a 66 year old female with PMH of hypertension, RLS, GERD who presented to critical access hospital with progressive worsening epigastric pain with nausea and vomiting for the past day. Denies fevers, CP, dyspnea. Found to have elevated T waves and uptrending tropopnins. CT ab with acute inflammation of the gallbladder with a stone at the neck and transferred to [facility]. RUQ US with impacted gallstone at gallbladder neck. Cards consulted, admitted to [facility]. Hospital Course: 05/16/22- cards c/s, high risk [...] 105 5 0.71 7.6 05/19/22 0355 1.8 05/19/22354 139 3.5 102 31 10 [...] without focal consolidation, no pneumothorax - respiratory truck washer protocol, BPH, IS CARD: #T2MI #possible CAD [...] RUQ US with (more content not included)...[employer] [id number] Note 05/19/22 1540 Assessment and Discharge Planning [...] SW or DC concerns arise. Annabelle Connor, [facility], LSWT [employer] [id number] NotePHYSICAL THERAPY PROGRESS SUMMARY PT tx cleared by RN. Patient seen from 1354 to 1417 on 5W unit for 23 minute treatment. SUBJECTIVE: Patient Subjective/Goals: oh, look at you! Re: PT untangling lines and wires. OBJECTIVE: Appearance: Resting in bed upon arrival, BP cuff, ocean import representative, Pulse Oximeter, IV, Drain x1, Fu, and [...] Dep Max Mod Min CG CS DS [place] I Comment Roll to right sidelying Roll [...] With Patients permission ordered no equipment via [employer] Order. If any questions contact [facility] Provider at [phone]. 6 Clicks Basic Mobility PT 05/18/2022 Difficulty [...] NA = Not Assessed, I = Independent, NY = Modified Independent, Sup = Supervised, Set up = Physical Assistance for Set-up Only, Min = Minimal Assistance, Mod = Moderate Assistance, Max = Maximal assistance; Dep = Dependent; AROM = Active Range of Motion; PROM = Passive Range of Motion; MMT = Manual Muscle TestThe [employer] [id number] NoteSICU Progress Note Gerry Victoria [id number] POD#: 0 LOS: 3 days : Interval History/Events: Pain improved Started vomiting this am Passing gas Background: Gerry Victoria is a 66 year old female with PMH of hypertension, RLS, GERD who presented to critical access hospital with progressive worsening epigastric pain with nausea and vomiting for the past day. Denies fevers, CP, dyspnea. Found to have elevated T waves and uptrending tropopnins. CT ab with acute inflammation of the gallbladder with a stone at the neck and transferred to [facility]. RUQ US with impacted gallstone at [...] 8 0.74 7.7 05/18/22 0228 2.3 05/18/22 022 136 3.9 101 27 12 77 12 [...] No growth to date, culture reincubated [P] 05/17/2249 No growth to date, culture reincubated [...] without focal consolidation, no pneumothorax - respiratory truck washer protocol, BPH, IS CARD: #T2MI #possible CAD [...] or longer GI: (more content not included)...[employer] [id number] NotePHYSICAL THERAPY ACUTE EVALUATION Referral received, chart [...] legs Patient Identified Goal(s): To go home MEDICAL RECORD CODER Status: Pt reports independence with ADLS and [...] in bed, IV, BP cuff, pulse oximeter, hospital monitor, fu, CVC triple lumen (R), surgical [...] 4/5 L LE 4-/5 4/5 4/5 4/5 45 Sensation: pt denies numbness/tingling Mobility: Rolling to [...] With Patients permission ordered no equipment via [employer] Order. If any questions contact [facility] Provider at [phone]. 6 Clicks Basic Mobility PT 05/18/2022 Difficulty [...] functional mobility Decreased (more content not included)...[employer] [id number] Note EXAMINATION: XA PERCUTANEOUS CHOLECYSTOSTOMY (RHETT) 05/17/2022 01:38 PM CLINICAL HISTORY: Rad Procedure required: = percutaneous cholecystomostmy tube placement,acute cholecystitis, not a good surgical candidate at this time 2/2 cardiac risk ASSOCIATED DIAGNOSIS: ORDERING PROVIDER: UMU CARRERA NOTE: FLUOROSCOPIST: FLUORO TIME: INTRA-PROCEDURE MEDS: ATTENDING [...] was used for local anesthesia. A 5F Yueh catheter over its matched stylet was inserted into the gallbladder lumen under ultrasoundguidance. The stylet was removed. An Amplatz wire was passed through the catheter and the catheter removed. Ultrasound was utilized to document wire position within the gallbladder lumen. Serial dilatation was then subsequently performed with an 8 and 10 Tuvaluan dilator. A 10 F all purpose drain [...] successful uncomplicated cholecystostomy tube placement. MACRO: [facility] [id number] NoteSICU Progress Note Gerry Victoria [id number] POD#: 0 LOS: 2 days : Interval History/Events: Background: Gerry Victoria is a 66 year old female with PMH of hypertension, RLS, GERD who presented to critical access hospital with progressive worsening epigastric pain with nausea and vomiting for the past day. Denies fevers, CP, dyspnea. Found to have elevated T waves and uptrending tropopnins. CT ab with acute inflammation of the gallbladder with a stone at the neck and transferred to [facility]. RUQ US with impacted gallstone at [...] Gap Glu BUN Cr Ca Mg PO4 05/18/22 0228 2.3 05/18/22227 136 3.9 101 27 12 77 12 0.78 7.7 05/17/22 0411 3.9 05/17/22410 1.9 05/17/22410 131 4.1 97 27 11 96 14 0.97 8.1 05/16/22221 136 4.9 100 27 14 119 9 0.76 8.6 CBC/PT/INR WBC RBC Hgb Hct MCV RDW Plt PT aPTT INR 05/18/22227 9.4 3.45 10.1 28.2 82 15.3 177 05/17/221 34 05/17/22410 1.61 05/17/22410 12.3 4.37 12.1 [...] without focal consolidation, no pneumothorax - respiratory truck washer protocol, BPH, IS CARD: #T2MI #possible CAD [...] CBC Endo Glycemic (more content not included)...[employer] [id number] Note POST-PROCEDURE NOTE Procedure: US guided percutaneous cholecystotomy tube Pre-operative Diagnosis: Acute cholecystitis Post-operative Diagnosis: Same Attending: Kim Fernando MD Cistern Room Working Supervisor: Bunny FELIX OUT was performed prior to [...] portion of the procedure. El Hollis MD [facility]-2023 NotePre-Procedure Note HISTORY: Procedure: US guided percutaneous [...] mg Oral At Bedtime 2 mg at 05/16/22 203 gabapentin (NEURONTIN) capsule 100 mg Oral 3x [...] Directives (Living will, health care power of clinical manager): yes, Patient Recent Code Status: Full Code Code Status For This Procedure: Full Code El Hollis MD [facility]Cos[facility]02-21-2023 NotePHYSICAL THERAPY CHART REVIEW Referral received, chart reviewed. RN request to hold therapy this date. Pt with 10/10 pain, just returned from CT with team deciding on emergent operation vs IR cholecystostomy tube placement. Evaluation to follow as appropriate Admit date/time: 05/16/2022 2:08 AM Reason for Admit: epigastric pain with nausea and vomiting Diagnosis: Cholecystitis Precautions: Full Code [place] Past Medical and Surgical History: PMH: Past Medical History: Diagnosis Date Restless leg PSH: Past Surgical History: Procedure Laterality Date TOTAL ABDOMINAL HYSTERECTOMY W/WO REMOVAL TUBE(S)/OVARY(S) Chu Warren, [facility] [id number] NoteSICU Progress Note Gerry Victoria [id number] POD#: 0 LOS: 1 day : Interval History/Events: Background: Gerry Victoria is a 66 year old female with PMH of hypertension, RLS, GERD who presented to critical access hospital with progressive worsening epigastric pain with nausea and vomiting for the past day. Denies fevers, CP, dyspnea. Found to have elevated T waves and uptrending tropopnins. CT ab with acute inflammation of the gallbladder with a stone at the neck and transferred to [facility]. RUQ US with impacted gallstone at [...] MCV RDW Plt PT aPTT INR 05/17/22 041 34 05/17/22 0411 1.61 05/17/22410 12.3 4.37 12.1 36.4 83 15.8 232 05/16/22221 1.10 05/16/22221 55 05/16/22221 11.3 4.74 [...] without focal consolidation, no pneumothorax - respiratory truck washer protocol, BPH, IS CARD: #T2MI #possible CAD [...] Flor Chew MD Preliminary IM/Anesthesiology PGY-1 Pager: [phone] Teaching Physician Note: I saw and evaluated the patient. I personally obtained the bhandari and (more content not included)...[employer] [id number] [facility] DIVISION OF ACUTE CARE SURGERY SURGICAL CRITICAL CARE HISTORY AND PHYSICAL Reason for consultation: acute cholecystitis, elevated troponins Referring physician: Connie Cote HPI: Gerry Victoria is a 66 year old female with PMH of hypertension, RLS, GERD who presented to critical access hospital with progressive worsening epigastric pain with nausea and vomiting for the past day. Denies fevers, CP, dyspnea. Found to have elevated T waves and uptrending tropopnins. CT ab with acute inflammation of the gallbladder with a stone at the neck and transferred to [facility]. RUQ US with impacted gallstone at [...] pt body habitu (more content not included)...[employer] [id number] Evaluation note* Encounter Date Diagnosis Assessment Notes Treatment Notes Treatment Clinical Notes Nov, Irritable bowel syndrome with constipation (ICD-10 - K58.1) Nov, Dysphagia (ICD-10 - R13.10) Continue Omeprazole [facility] [employer] Other 09-06-2022 Hospital Discharge instructions Patient Education [...] fried and sweet foods. General instructions Take tgxy-qcs-lbailah and prescription medicines only as told by [...] 01/07/2010 Document Revised: 07/04/2019 Document Reviewed: 03/29/2018 [employer] Patient Education 2019 [employer]. Follow Up Care 11/12/2021 11:10:16 With:MARYCARMEN NAVA PA-C, URL Address: When:1 year [facility] [place] 05-05-2022 Hospital Discharge instructions Patient [...] nerve stimulation). For women, using a medical delivery technician to prevent urine leaks. This is a [...] right after experiencing incontinence. General instructions Take lqlt-jhx-sdznwnc and prescription medicines only as told by [...] 04/20/2005 Document Revised: 03/23/2018 Document Reviewed: 06/22/2017 [employer] Patient Education 2020 [employer]. 07/29/2021 08:21:46 Overactive Bladder, Adult Overactive Bladder, [...] fried and sweet foods. General instructions Take elkf-frx-ymqaknc and prescription medicines only as told by [...] 01/07/2010 Document Revised: 07/04/2019 Document Reviewed: 03/29/2018 [employer] Patient Education 2019 [employer]. Follow Up Care 07/08/2021 10:23:59 With:MARYCARMEN NAVA PA-C, URL Address: [address] [address] When: Unknown [facility] [place] 04-07-2022 Evaluation note* Encounter Date Diagnosis Assessment Notes Treatment Notes Treatment Clinical Notes Jun, Dyspepsia (ICD-10 - K30) Jun, GERD (gastroesophageal reflux disease) (ICD-10 - K21.9) Continue Omeprazole 40mg bid without change. Follow up in 1 year Nov, Irritable bowel syndrome (ICD-10 - K58.9) ([facility]) Increase Metamucil to 2 scoops daily. Encouraged pt to increase daily fiber intake. [employer] Other 11-30-2021 Evaluation note* Encounter Date Diagnosis [...] see her back on an as-needed basis. [employer] Other 10-05-2021 Evaluation note* Encounter Date Diagnosis [...] that. I am sending her to the [facility] for treatment at her request. Dec, Spondylolisthesis, lumbar region (ICD-10 - M43.16) This patient has a definite spondylolisthesis and probably stenosis. But really does not truly have neurogenic claudication; it is not bilateral and appears to be more sacroiliac. She will try pain management first. [employer] Other chief complaint Narrative - ReportedSUDAMIEN VICTORIA is being seen for a consultation for atrial flutter and palpitations. F/u heart cath done in [facility] [address] DO Work Phone: Evaluation + Plan note Future Appointments Appointment Date:10/05/2021 11:00:00 AM Scheduled Provider:MARYCARMEN NAVA PA-C Location:[facility] Appointment Type:URO Office Visit [facility] Evaluation + Plan note Future Appointments Appointment Date:12/01/2022 01:00:00 PM Scheduled Provider:MARYCARMEN NAVA PA-C Location:[facility] Appointment Type:URO Office Visit [facility] Evaluation + Plan note Future Appointments Appointment Date:07/26/2022 08:00:00 AM Scheduled Provider: Location:[facility] Appointment Type:Surgery FT Appointment Date:12/01/2022 01:00:00 PM Scheduled Provider:MARYCARMEN NAVA PA-C Location:[facility] App[facility]ments Appointment Date:03/14/2024 01:00:00 PM Scheduled Provider:MARYCARMEN NAVA PA-C Location:[facility] Appointment Type:URO Office Visit [facility] Evaluation noteNo Assessments Information Available [facility] assessment information available [facility] noteNo InformationNort Opsona Other evaluation note* Diagnosis Acute cholecystitis- Primary [...] Varicose veins of both lower extremities chronic [facility] Work Phone: Evaluation note* Diagnosis Onset Date Resolution Status Pain in wound acute Edema chronic Inflammation chronic Leg ulcer, left chronic Obesity chronic Uses roller walker chronic Varicose veins of both lower extremities chronic Pain in wound acute Edema chronic Inflammation chronic Leg ulcer, left chronic Obesity chronic Uses roller walker chronic Varicose veins of both lower extremities chronic Candidiasis resolved [facility] Work Phone: History general Narrative - [...] RIGHT LEG 10/16/2020 Hospitalization History see above [employer] Other Hisnkra general Narrative - Reported* Type Description Date [...] total knee Arthroplasty pe r Dr. Calixto -6 Surgical History Nerve block lumbar spine. Dr. Adam samuel 08/2016 Surgical History LMF trigger release SBS 018 Surgical History VENA SEAL RIGHT LEG 10/16/2020 Surgical History Varithena Left leg 01/14 Hospitalization History see above [employer] Other History of Present illness Narrative* Patient is here for cardiovascular evaluation following recent hospitalization for what appeared thang acute cholecystitis. Records were retrieved and reviewed. Patient presented to [facility] with symptoms of abdominal pain and was diagnosed with what appeared to be gallbladder disease and peritonitis.She was transferred to [facility] where she underwent work-up. 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 She reported [...] The patient to keep her appointment with [facility] surgery for upcoming procedure of cholecystectomyand gallbladder drainage removal * 5. I advised the patient she can use some [id number] Claritin to address her what appeared thang drug induced allergic reaction [facility] DO Work Phone: Hospital course Narrative No data available for this section [facility] Hospital Discharge instructions* Attachments The following attachments cannot be sent through Care Everywhere. * Percutaneous Transhepatic Cholangiogram Discharge Instructions ([place]) [facility] No data available for this section [facility] Additional Instructions Follow-up with your primary care doctor [facility] if develop [facility] Work Phone: Progress note No data available for this section [facility] Advance Directives No Advanced Directives Records Found [...] RADIOLOGY PROCEDURE SERVICE Nikita Hein MD [address] [place] [address] [facility] [address] [place] [address] Referral ID Status Reason Start Date Expiration Date V isits Requested Visits Authorized [id number] Authorized 06/15/2022 06/15/2023 1 1 Reason Evaluate and Tr eat Diagnosis 1 Spondylolisthesis, l umbar region (M43.16) Referral Organization [facility] Ne urosurgery Referring Provider First Name Michael Referring Provider Last Name Keanu Referring Provider Specialty Neurologica l Surgery Referred Organization [facility] Referred Provider Crow Hale Referred Address [address] [place], [place],[address] Referred Provider Specialty Pain Medicin e Referral Priority Routine General Notes Jazzmine Villagran 021 02:41:55 PM >Received todayJazzmine Villagran 12/30/2020 03:12:19 PM >Waiting for office notes [...] section and content) DATE CREATED AUTHOR 07/07/2021 [facility] dical Specialist DATE CREATED AUTHOR AUTHOR'S ORGANIZ ATION 07/02/2022 [employer] DATE CREATED AUTHOR AUTHOR'S ORGANIZ ATION 09/14/2022 [employer] DATE CREATED AUTHOR AUTHOR'S ORGANIZ ATION 10/07/2022 [facility] DATE CREATED AUTHOR AUTHOR'S ORGANIZ ATION 03/04/[address] [facility] DATE CREATED AUTHOR AUTHOR'S ORGANIZ ATION 03/17/2023 [facility] DATE CREATED AUTHOR AUTHOR'S ORGANIZ ATION 04/12/2023 [facility] dical Specialists EPIC REASON FOR VISIT (unrecogniz ed section and content) Reason Onset Date Comments Advice/health education 05/27/2022 Specialty Diagnoses / Procedures Referred By Megan hernandez Referred To Contact Radiology Diagnoses Acute cholecystitis Procedures XA CHOLANGIOGRAM EXISTING ACCESS (RHETT) XA INTERVENTIONAL RADIOLOGY VASCULAR BODY PROCEDURES XA INTERVENTIONAL RADIOLOGY PROCEDURE SERVICE Nikita Hein MD [address] [facility] [address] [facility] [address] [id number] Referral ID Status Reason Start Date Expiration Date Visits Re quested Visits Authorized [id number] Closed 06/15/2022 06/15/2023 1 1 Reason Onset Date Comments Advice/health education 07/06/2022 Care Team (unrecognized sect ion and content) Team Status: Active Member Role Status Dates Ward Zuniga , Primary Care Provider Active Team Status: Inactive Member Role Status Dates Ward Zuniga DO Primary Care Provider Active Adelia Saldana APRN Attending Provider Active Team Status: Inactive Member Role Status Dates Ward Zuniga DO Primary Care Provider Active Pravin Granado MD Emergency Provider Active Team Status: Active Member Role Status Dates Ward Zuniga DO Primary Care Provider Active Adelia Saldana APRN Attending Provider Active Team Status: Inactive Member Role Status Dates Ward Zuniga , Primary Care Provider, Attending Sophie perez Active Team Status: Inactive Member Role Status Dates Ward Zuniga DO Primary Care Provider Active Maico Perla , Emergency Provider Active Team Status: Inactive Member Role Status Dates Ward Zuniga DO Primary Care Provider Active Molina [...] BE BASED ON THE PRIMARY CLINICAL RECORDS. [facility] [employer] provides no warranty or guarantee of the accuracy or completeness of information in this document.
== END 2023-04-12 09:46 | disposition home or self-care (01) ==
LOC: VC 09:45
PROVIDERS: PCP Radiology Diagnostic Radiology; Visit Provider Radiology Diagnostic Radiology
DX: I83.813 Varicose veins of bilateral lower extremities with pain (principal)
CPT/HCPCS: 36478

== ENCOUNTER 2023-04-17 09:57 | Outpatient (OUT) | payer MEDICARE, SELFPAY ==
--- NOTE | 2023-04-17 | VEIN_ITS ---
Patient Name: GERRY YOUNGBLOOD MR#: [id number] : 1955 Exam Date: 04/17/2023 Ordering Doctor: DR SOLOMON JACKSON M.D. RADIOLOGY REPORT PROCEDURE: VC EXT VENOUS RT LMTD COMPARISON: VC EXT VENOUS RT LMTD, 03/06/2023. INDICATIONS: I80.01 Phlebitis of superficial veins of rt lower extremity TECHNIQUE: Lower extremity may scale and Duplex Doppler evaluation of the deep venous system from the inguinal ligament through the calf veins. FINDINGS: REGION: Right lower extremity. THROMBI: Negative for DVT. COMPRESSIBILITY: Non-compressible segments corresponding to thrombus FLOW: Areas of no flow corresponding to thrombus OTHER: Heat induced thrombus visualized in SSV which is a thigh extension Vein. CONCLUSION: Post ablation occlusion of the right small saphenous vein, thigh extension. No deep vein thrombus Dictated by: Solomon Jackson MD on 04/17/2023 at 10:36 Approved by: Solomon Jackson MD on 04/17/2023 at 10:39
--- NOTE | 2023-04-17 | VEIN_ITS ---
Patient Name: GERRY YOUNGBLOOD MR#: [id number] : 1955 Exam Date: 04/17/2023 Ordering Doctor: DR SOLOMON JACKSON M.D. RADIOLOGY REPORT PROCEDURE: [facility] EST LMTD VEIN CENTER - OFFICE VISIT FOLLOW UP COMPARISON: [facility] EST LMTD, 03/28/2023. [facility] EST LMTD, 03/06/2023. PROGRESS NOTES: The patient reports no significant problems following intravenous laser ablation of the right small saphenous vein. The patient does complain of some mild to moderate tenderness but did not require oral analgesics. The patient has worn her compression stocking. Patient has tried exercise within the limits of the weather and her ability. Physical exam demonstrates the incision to be sealed. No erythema or warmth to suggest cellulitis or thrombophlebitis. The small saphenous vein cannot be palpated. Ulcerations Review of the ultrasound performed the same day demonstrates occlusive thrombus extending throughout the treated right small saphenous vein which was a thigh extension period no deep vein thrombus. The patient expressed a desire to proceed with treatment of incompetent left small saphenous vein with intravenous laser ablation. VEIN/[facility] EST LMTD IMPRESSION: 1. Successful ablation of the right small saphenous vein 2. Persistent incompetent left small saphenous vein PLAN: Intravenous laser ablation left small saphenous vein Nurse notes, history and physical were reviewed and confirmed, see attached forms. The nurse was present throughout the physical exam and consultation Dictated by: Solomon Jackson MD on 04/17/2023 at 10:42 Approved by: Solomon Jackson MD on 04/17/2023 at 10:44
== END 2023-04-17 09:58 | disposition home or self-care (01) ==
LOC: VC 10:02
PROVIDERS: PCP Radiology Diagnostic Radiology; Visit Provider Radiology Diagnostic Radiology
DX: I80.01 Phlebitis and thrombophlebitis of superficial vessels of right lower extremity (principal)
CPT/HCPCS: 93971; G0463

== ENCOUNTER 2023-04-24 13:56 | Outpatient (OUT) | payer MEDICARE, SELFPAY ==
[2023-04-24] MEDS: LIDOCAINE HCL 1% 100 MG/10 ML MDV INJ (13:57)
[2023-04-24] MEDS: 0.9 % SODIUM CHLORIDE 500 ML, LIDOCAINE HCL 20 ML, SODIUM BICARBONATE 10 MEQ INJ (13:58)
--- NOTE | 2023-04-24 13:58 | VEIN_ITS ---
[address] [address] Patient Name: GERRY YOUNGBLOOD MRN: [id number] date: 1955 Sex: F Assigned Patient Location: Current Patient Location: Accession/Order Number: [id number] Exam Date: 04/24/2023 14:01 Report Date: 04/24/2023 15:24 At the request of: VICKIE CORDON Procedure: VC Endovenous Ablation 1VeinLT EXAMINATION: VC Endovenous Ablation 1Vein left small saphenous vein HISTORY: Pain due to varicose veins of bilateral legs I83.813 COMPARISON: No relevant comparison available. TECHNIQUE: The risks and benefits of the procedure had been previously discussed, and were rediscussed at length. Informed written consent was obtained. Alisha Shrestha and Domingo Joe assisted. Time out procedure was performed. The left lower extremity was prepared and draped in the usual sterile fashion. Duplex ultrasound probe was draped in a sterile cover, sterile transmission gel was used. Venous mapping was performed with the areas of dilation and large tributaries marked. The total length was 27 cm from the entry 6 cm above the lateral malleolus to the upper thigh, this was a thigh extension. The diameter of the small saphenous vein ranged from 5-6 mm. A 30 gauge needle and 1% buffered lidocaine was used to anesthetize the entry site. A 4 mm incision was made with a scalpel and the saphenous vein was entered percutaneously under direct ultrasound guidance with a micropuncture set, a single stick was successful in gaining access. A micro-guide wire was inserted and the needle removed. A micro-set including a dilator was inserted over the microwire and the needle and dilator were removed. A 0.018 guide wire was inserted through the micro-set and threaded through the saphenous vein. The dilator was removed and an introducer sheath was inserted over the wire until . The dilator and wire were removed and the 600 micron fiber was introduced and placed and positioned so that it extended beyond the sheath . Final position of the fiber was determined by ultrasound guidance and duplex imaging. Tumescent anesthetic was delivered by ultrasound guidance. 175 cc of fluid was delivered along the entire course of the saphenous vein. The solution consisted of 1000 cc of normal saline with 40 mL of 1% lidocaine and 20 mL of sodium bicarbonate. A final positioning check was made. The energy source was turned on by means of the foot pedal and the fiber and sheath were withdrawn. The total number of Joules delivered was 1326. The laser was active for 166 seconds under continuous pulse, average laser use of 8 J. Laser start time 2:56 PM 04/24/2023 . Laser stop time 2:59 PM 04/24/2023 . A duplex ultrasound revealed compressibility and flow at the saphenofemoral junction immediately after the procedure. Hemostasis at the access site was achieved. The skin incision of the saphenous vein was closed with a 4 x 4. A compression stocking was applied. Postop instructions were given. A follow up appointment was recommended and scheduled. The patient tolerated the procedure well and was discharged in good condition . VEIN/VC Endovenous Ablation 1VeinLT IMPRESSION: Technically successful endovenous laser ablation of the left small saphenous vein Electronically authenticated by: VICKIE CORDON Date: 04/24/2023 15:24
--- OUTSIDE RECORDS SUMMARY | 2023-04-24 14:02 | XMS_ITS | CCD ---
Author Name Unknown Address [address] [place] [address] Organization [facility] Care Team Providers Care Medical Office Rep Name Role Phone Ward Zuniga Primary Care Provider [phone] Pardeep Barroso Attending Provider Jai Tomas Attending Provider Ward Zuniga Primary Care Provider [phone] Jai Tomas Attending Provider [phone] Ward Mtz Attending Provider [phone] Ward Zuniga Primary Care Provider [phone] Jai Tomas Attending Provider Ward Mtz Attending Provider [phone] WARD ZUNIGA Primary Care Physician Unavail able Latonya Frost Unavailable Unavailable Michael Colunga Unavailable Ward Mtz Unavailable Balwinder Parker Unavailable DO Ward Zuniga Primary Care Provider MD Molina Villanueva Attending Provider DO Ward Zuniga Attending Provider DO Ward Zuniga Primary Care Provider [phone] CUBA Casanova Attending Provider ISI Griffiht Emergency Provider [phone] Unavailable Primary Care Provider Unavailabl e DO [...] UNKNOWN Admitting Unavailable PROVIDER, UNKNOWN Attending Unavailable RITTER, NIKITA Referring Unavailable PROVIDER, UNKNOWN Attending Unavailable [...] Attending Unavailable Dr. Ward Zuniga Primary Care Faith Marinelli, Dr. Gama Referring Unavailmaryann Marinelli, Dr. Gama Attending Unavaila Dr. Ward Robin Primary [facility] DO Ward Samuel Primary Care Provider DO Ward Zuniga Attending Provider [phone] CUBA Saldana Attending Provider DO Maico Perla Emergency Provider [phone] MD Ward Mtz Attending Provider DO Ward Zuniga Primary Care Provider MD Ward Mtz Attending Provider CUBA Saldana Attending Provider MD Pravin Granado Emergency Provider MARYCARMEN NAVA Attending Unavailable Ketty Alicia Attending Unavailable Talon Mcbride Referring Unavailabl e Zulay Junior Attending Unavailab le Talon Mcbride Admitting Unavailabl e Talon Mcbride Attending Unavailabl e Talon Mcbride Referring Unavailabl e Jonel PADILLAr R Admitting Unavailable Maliha PADILLA R Attending Unavailable Talon Mcbride Admitting Unavailabl e Talon Mcbride Attending Unavailabl e Talon Mcbride Referring Unavailabl e DO Ward Zuniga Primary Care Provider MD Pravin Granado Emergency Provider CUBA Saldana Attending Provider Ward Zuniga Primary Care Unavailable Maico Perla Admitting Unavailable Maico Perla Attending Unavailable Keith Griffith Admitting Unavailable Keith Griffith Attending Unavailable Ward Zuniga Primary Care Unavailable Pravin Granado Admitting Unavailable Pravin Granado Attending Unavailable Efrain Ward Primary Care Unavailable Ward Zuniga Admitting Unavailable Efrain Ward Primary Care Unavailable Ward Zuniga Attending [facility] Unavailable Adelia Saldana Admitting Unavailable Adelia Saldana Attending Unavailable [facility] Care Unavailable Ward Mtz Admitting Unavailable Ward Mtz Attending Unavailable Adelia Saldana Admitting Unavailable Adelia Saldana Attending Unavailable [facility] Care Un[facility] Unavailable Ephraim Casanova Admitting Unavailable Ephraim Casanova Attending Unavailable Keith Griffith Admitting Unavailable Keith Griffith Attending Unavailable Ward Zuniga Primary Care Unavailable WARD ZUNIGA EDMOND Primary Care Unavailabl JAJA Moralez Attending Unavailable CONNIE LEARY Attending Unavailable WARD ZUNIGA Attending Unavailable WARD ZUNIGA Referring Unavailable CONNIE LEARY Referring Unavailable JR. LEE GEORGE C Attending Unavaila ble CONNIE LEARY Attending Unavailable CONNIE LEARY Referring Unavailable CONNIE LEARY Attending Unavailable CONNIE LEARY Referring Unavailable CONNIE LEARY Attending Unavailable CONNIE LEARY Referring Unavailable Unavailable Unavailable Unavailable Allergies Allergy Classification Reported Allergen(s) Allergy Type Date of Onset Reaction(s) Facility (17 sources) contact metal agent; Translations: [contact metal agent] Propensity to adverse reactions 9 [facility] (8 sources) Adhesive bandage; Translations: [Adhesive Bandage] Drug allergy rash [facility] (20 sources) DULoxetine; Translations: [duloxetine] Drug Allergy unable to function properly d/t drowsiness, swollen feet, Unknown [facility] Other (13 sources) meloxicam; Translations: [meloxicam] Drug Allergy ., Unknown [facility] Other (20 sources) pregabalin; Translations: [pregabalin] Drug Allergy 3 Swelling [facility] Other (19 sources) Adhesive agent; Translations: [adhesive] Propensity to adverse reactions 2 [facility] (10 sources) oxaprozin; Translations: [oxaprozin] Drug Allergy Unknown [facility] (10 sources) rOPINIRole; Translations: [Requip] Drug Allergy dizziness [facility] (10 sources) tiZANidine; Translations: [tiZANidine] Drug Allergy Unknown [facility] (20 sources) DULoxetine; Translations: [DULOXETINE HCL] Drug Allergy 3 Agitation [facility] (20 sources) Pregabalin Propensity to adverse reactions to drug 3 Swelling [facility] (20 sources) Bandage Tape; Translations: [BANDAGE TAPE] Propensity to adverse reactions 3 Itching, Redness [facility] (1 source) Adhesive Bandages; Translations: [Adhesive Bandages] Allergy to drug (finding) [facility] 600 DO Work Phone: (1 source) Adhesive Paper TAPE; Translations: [Adhesive Paper TAPE] Allergy to drug (finding) [facility] 600 DO Work Phone: (1 source) meloxicam; Translations: [Mobic] Drug Allergy [facility] (1 source) oxaprozin; Translations: [Daypro] Drug Allergy [facility] (1 source) tiZANidine; Translations: [Zanaflex] Drug Allergy [facility] (1 source) pregabalin Drug Allergy [facility] Repository Medications Current Medications Medication Drug [...] day(s), # 28 cap(s), Refills(s) 0, Pharmacy: [facility] [id number], 154, cm, 09/26/22 23:21:00 EDT, Height/Length Dosing, [...] day(s), # 14 tab(s), Refills(s) 0, Pharmacy: [facility] [id number], 154, cm, 09/26/22 23:21:00 EDT, Height/Length Dosing, [...] urethra., # 42.5 gm, Refills(s) 5, Pharmacy: [facility] [id number], 154, cm, 07/29/21 11:09:00 EDT, Height/Length Dos... [...] 11:00pm Start: 10-05-2022 take 1 tablet by [facility] once daily Multivitamin Active 1 TAB PO Daily October 05, 2022 12:00am nystatin 100 unt/mg topical powder (2 sources) Polyene Antifungal Start: 02-14-2023 Nystatin Ac tive 1 APPLIC TOPICAL .3 times/week 30 February 14, 2023 12:00am apply to left leg as per wound care orders Start: 02-13-2023 Nystatin Activ e 1 APPLIC TOPICAL .3 times weekly 15 February 13, 2023 12:00am apply to left [...] Start: 11-29-2012 take 1 capsule by mo [facility] once daily omeprazole 20 mg Cap-DR [...] Daily, # 90 tab(s), Refills(s) 3, Pharmacy: [facility] [id number], 154, cm, 09/26/22 23:21:00 EDT, Height/Length Dosing, [...] day(s), # 30 tab(s), Refills(s) 1, Pharmacy: [facility] [id number], 154, cm, 07/29/21 11:09:00 EDT, Height/Length Dosing, 88, kg, 07/29/21 11:09:00 EDT, Weight Dosing Start Date: 07/29/21 Stop Date: 09/27/21 Status: Ordered Start: 07-29-2021 End: 08-28-2021 take 1 tablet by mouth once daily oxybutynin 5 mg ER Tab 5 mg = 1 tab(s), Oral, Daily, X 30 day(s), # 30 tab(s), Refills(s) 0, Pharmacy: [facility] [id number], 154, cm, 07/29/21 11:09:00 EDT, Height/Length Dosing, 88, kg, 07/29/21 11:09:00 EDT, Weight Dosing Start Date: 07/29/21 Stop Date: 08/28/21 Status: Ordered oxyCODONE hydrochloride 5 mg oral tablet (1 source) Opioid Agonist Start: 07-26-2022 End: 07-29-2022 oxyCODONE 5 mg Tab 5 mg = 1 tab(s), Oral, q6hr, PRN Pain 8-10, X 3 day(s), # 12 tab(s), Refills(s) 0, Pharmacy: [facility] [id number], 154, cm, 07/18/22 14:13:00 EDT, Height/Length Dosing, [...] Ordered Start: 01-13-2021 [facility] daily Vitamin D3 2000 intl units oral Tab 50 mcg, Oral, Daily, tab(s), Refills(s) 0 Start Date: 01/13/21 Status: Ordered Vitamin D3 2000 UNIT (9 sources) take 1 capsule by mo [facility] once daily Vitamin D3 2000 UNIT [...] Coronary atherosclerosis; Translations: [Atherosclerotic heart disease of craig coronary artery without angina pectoris] Onset: 3 [...] current use of drug therapy; Translations: [Other usp (current) drug therapy] Onset: 3 Episodic Other [...] Test Name Value Interpretation Reference Range Facility [facility] 04-19-2023 CNOV Office Visit (GASTNO ) -- GERRY VICTORIA ([id number]) 1955 F Date Time Provider Department 04/19/23 3:00 PM JAJA REDDY During your visit today, we recorded the following information about you: Pulse Blood pressure Weight Height 68/minute 131/87 79.4 kg 1.549 m Jaja Reddy MD 04/19/2023 2:56 PM Addendum Endoscopy at [facility] 05/08/23 arrive at 11:45am Jaja Reddy MD 04/19/2023 8:59 PM Signed NEW PATIENT VISIT REASON FOR VISIT: Epigastric pain HPI: Gerry Victoria is a 67 year old female who presents for epigastric pain. She is accompanied by her sister. She states last year she had some serious gallbladder issues requiring a cholecystostomy tube. She ultimately underwent cholecystectomy in July of last year. She states even before that she would have epigastric pain on and off however was attributed to her gallbladder. She states the pain has still persisted and she has it about once a week. She denies any nausea, vomiting, dysphagia, unintentional weight loss. She does admit to heartburn and takes omeprazole which works. Her bowel movements range from type I to type V. She is on a probiotic and fiber supplementation. She does occasionally admit to constipation. She denies any melena, hematochezia or rectal bleeding. She does have family history of colon cancer in her father and her nephew. Colonoscopy was in 2020 with no polyps and diverticulosis. Past Clinical Work-Up: XR cholangiogram 07/05/2022: IMPRESSION: Uncomplicated cholecystogram with successful exchange of drainage catheter. CT abd/pel 05/17/2022:IMPRESSION: 1. The gallbladder is markedly distended, with wall thickening and surrounding inflammation and fluid consistent with acute cholecystitis. This has worsened when compared to the prior study. 2. Small volume free fluid is present along the margins of the liver and spleen and in the right paracolic gutter and dependent pelvis, increased from the prior study. Labs 01/02/2023: Component 01/02/2023 HEMOGLOBIN 10.9 Low HEMATOCRIT 34.3 Low MCV 86.6 MCH 27.5 MCHC 31.8 Low RDW 14.5 MPV 10.1 Component 01/02/2023 Glucose 73 BUN 13 Creatinine 0.90 EGFR 69 Sodium 139 Potassium, Bld 4.3 Chloride 101 Calcium 8.9 Component 01/02/2023 TSH 9.39 High ALLERGIES Allergen Reactions Cymbalta [Duloxetin* Intolerance History reviewed. No pertinent past medical history. PAST SURGICAL HISTORY Procedure Laterality Date CHOLECYSTECTOMY COLONOSCOPY SCREENING FAMILY HISTORY Problem Relation Age of Onset Colon Cancer Father Colon Cancer Nephew Current Outpatient Medications Medication Sig acyclovir (ZOVIRAX) 400 mg tablet Take 400 mg by mouth. amitriptyline (ELAVIL) 50 mg tablet Amitriptyline Active 50 MG PO Daily March 29, 2017 12:00am aspirin 81 mg chewable tablet Take 1 tablet by mouth once daily. atenolol (TENORMIN) 50 mg tablet Take 50 mg by mouth. calcium carbonate (CALTRATE) 600 mg calcium (1,500 mg) tab Take 1,200 mg by mouth. cetirizine 10 mg ODT Take by mouth. Cholecalciferol, Vitamin D3, 50 mcg (2,000 unit) cap 1 capsule. docusate sodium (COLACE) 100 mg capsule Take 200 mg by mouth. escitalopram oxalate (LEXAPRO) 20 mg tablet Take 20 mg by mouth. gabapentin (NEURONTIN) 100 mg capsule Gabapentin Active 100 MG PO Three times daily March 29, 2017 12:00am levothyroxine (SYNTHROID) 50 mcg tablet Levothyroxine Active 100 MCG PO Daily October 22, 2018 11:00pm omeprazole (PRILOSEC) 20 mg capsule Take by mouth as directed. oxybutynin ER (DITROPAN XL) 10 mg 24 hr tablet Take 10 mg by mouth. rOPINIRole (REQUIP) 2 mg tablet TAKE FOUR TABLETS BY MOUTH DAILY traMADol (ULTRAM) 50 mg tablet Take 50 mg by mouth every 6 hours as needed. No current facility-administered medications for this visit. REVIEW OF SYSTEMS: PAIN ASSESSMENT: Negative for pain, history of chronic pain, or current treatment for a chronic pain condition.. GENERAL: No weight loss, malaise or fevers HEENT: Negative for frequent or significant headaches, No changes in hearing or vision, no nose bleeds or other nasal problems NECK: Negative for lumps, goiter, pain and significant neck swelling RESPIRATORY: Negative for cough, hemoptysis, wheezing, COPD, dyspnea or shortness of breath CARDIOVASCULAR: Negative for chest pain, leg swelling, hypertension, CHF or palpitations GI: See HPI above : No history of dysuria, frequency or incontinence MASTICATOR: Negative for abnormal vaginal bleeding, abnormal vaginal discharge MUSCULOSKELETAL: Negative for joint pain or swelling, back pain or muscle pain SKIN: Negative for lesions, rash, and itching PSYCH: Negative for sleep disturbance, mood disorder and recent psychosocial stressors HEMATOLOGY/LYMPHOLOGY: Negative for prolonged bleeding, bruising easily or swollen nodes ENDOCRINE: Negative for cold or heat intoleranc (more content not included)... Normal [facility] HISTORY PHYSICALon HISTORY PHYSICAL HNO ID: [id number] Author: JAJA REDDY MD Service: ? Author Type: Physician Type: H&P Filed: 04/19/2023 20:59 Note Text: NEW PATIENT VISIT REASON FOR VISIT: Epigastric pain HPI: Gerry Victoria is a 67 year old female who presents for epigastric pain. She is accompanied by her sister. She states last year she had some serious gallbladder issues requiring a cholecystostomy tube. She ultimately underwent cholecystectomy in May of last year. She states even before that she would have epigastric pain on and off however was attributed to her gallbladder. She states the pain has still persisted and she has it about once a week. She denies any nausea, vomiting, dysphagia, unintentional weight loss. She does admit to heartburn and takes omeprazole which works. Her bowel movements range from type I to type V. She is on a probiotic and fiber supplementation. She does occasionally admit to constipation. She denies any melena, hematochezia or rectal bleeding. She does have family history of colon cancer in her father and her nephew. Colonoscopy was in 2020 with no polyps and diverticulosis. Past Clinical Work-Up: XR cholangiogram 07/05/2022: IMPRESSION: Uncomplicated cholecystogram with successful exchange of drainage catheter. CT abd/pel 05/17/2022:IMPRESSION: 1. The gallbladder is markedly distended, with wall thickening and surrounding inflammation and fluid consistent with acute cholecystitis. This has worsened when compared to the prior study. 2. Small volume free fluid is present along the margins of the liver and spleen and in the right paracolic gutter and dependent pelvis, increased from the prior study. Labs 01/02/2023: Component 01/02/2023 HEMOGLOBIN 10.9 Low HEMATOCRIT 34.3 Low MCV 86.6 MCH 27.5 MCHC 31.8 Low RDW 14.5 MPV 10.1 Component 01/02/2023 Glucose 73 BUN 13 Creatinine 0.90 EGFR 69 Sodium 139 Potassium, Bld 4.3 Chloride 101 Calcium 8.9 Component 01/02/2023 TSH 9.39 High ALLERGIES Allergen Reactions Cymbalta [Duloxetin* Intolerance History reviewed. No pertinent past medical history. PAST SURGICAL HISTORY Procedure Laterality Date CHOLECYSTECTOMY COLONOSCOPY SCREENING FAMILY HISTORY Problem Relation Age of Onset Colon Cancer Father Colon Cancer Nephew Current Outpatient Medications Medication Sig acyclovir (ZOVIRAX) 400 mg tablet Take 400 mg by mouth. amitriptyline (ELAVIL) 50 mg tablet Amitriptyline Active 50 MG PO Daily March 29, 2017 12:00am aspirin 81 mg chewable tablet Take 1 tablet by mouth once daily. atenolol (TENORMIN) 50 mg tablet Take 50 mg by mouth. calcium carbonate (CALTRATE) 600 mg calcium (1,500 mg) tab Take 1,200 mg by mouth. cetirizine 10 mg ODT Take by mouth. Cholecalciferol, Vitamin D3, 50 mcg (2,000 unit) cap 1 capsule. docusate sodium (COLACE) 100 mg capsule Take 200 mg by mouth. escitalopram oxalate (LEXAPRO) 20 mg tablet Take 20 mg by mouth. gabapentin (NEURONTIN) 100 mg capsule Gabapentin Active 100 MG PO Three times daily March 29, 2017 12:00am levothyroxine (SYNTHROID) 50 mcg tablet Levothyroxine Active 100 MCG PO Daily October 22, 2018 11:00pm omeprazole (PRILOSEC) 20 mg capsule Take by mouth as directed. oxybutynin ER (DITROPAN XL) 10 mg 24 hr tablet Take 10 mg by mouth. rOPINIRole (REQUIP) 2 mg tablet TAKE FOUR TABLETS BY MOUTH DAILY traMADol (ULTRAM) 50 mg tablet Take 50 mg by mouth every 6 hours as needed. No current facility-administered medications for this visit. REVIEW OF SYSTEMS: PAIN ASSESSMENT: Negative for pain, history of chronic pain, or current treatment for a chronic pain condition.. GENERAL: No weight loss, malaise or fevers HEENT: Negative for frequent or significant headaches, No changes in hearing or vision, no nose bleeds or other nasal problems NECK: Negative for lumps, goiter, pain and significant neck swelling RESPIRATORY: Negative for cough, hemoptysis, wheezing, COPD, dyspnea or shortness of breath CARDIOVASCULAR: Negative for chest pain, leg swelling, hypertension, CHF or palpitations GI: See HPI above : No history of dysuria, frequency or incontinence MASTICATOR: Negative for abnormal vaginal bleeding, abnormal vaginal discharge MUSCULOSKELETAL: Negative for joint pain or swelling, back pain or muscle pain SKIN: Negative for lesions, rash, and itching PSYCH: Negative for sleep disturbance, mood disorder and recent psychosocial stressors HEMATOLOGY/LYMPHOLOGY: Negative for prolonged bleeding, bruising easily or swollen nodes ENDOCRINE: Negative for cold or heat intolerance, polyuria, polydipsia and goiter NEURO: No history of headaches, syncope, paralysis, seizures or tremors PHYSICAL EXAMINATION: BP 131/87 Pulse 68 Ht 5' 1 (1.55m) Wt 175 lb (79.4kg) BMI 33.08 kg/(m2). General appearance: Well appearing, alert, in no acute distress, well-hydrated, well nourished. Skin: Skin color, texture, turgor normal, no suspici (more content not included)... Normal [facility] MR SHOULDER LEFT WO IV CONTR Demetrius [...] Urnls Dip Stick Auto w/o Microscopy POC [id number] Your Care Team Attending Physician - Ravin BRINK, DARRYN, Ketty Jaeger Primary Care Physician - WARD [...] of [facility] Patient Educationon 03-02-20 23 Patient Education Obstetrics and Gynec ology Kegel [...] provider. Document Revised: 07/22/2021 Document Reviewed: 07/22/2021 [employer] Patient Education ? 2022 [employer] Tara [facility] Urology Office/Clinic Noteon 03-02-2023 Urology Office/Clinic [...] With When Contact Information DARRYN Alicia APRN, Ketty Jaeger, SHAHNAZ, URL In 1 year Additional Instructions: Patient Education Qiana Duenas I, Gema Erickson, personally scribed for [...] Alcohol - (more content not included)... Normal [facility] Comment on above: Result Comment: Elec tronically Signed By: DARRYN Alicia APRN, [place] X\.br\Date and Time Signed: 03/02/23 13:39 EST\.br\Electronically Co-Signed By: Gema Erickson\.br\Date and Time Co-Signed: 03/02/23 13:37 EST Alanine aminotransferase [En zymatic activity/volume] in Serum or PlasmaOrdered By: Pravin Granado on 12-17-2022 ALT [Catalytic activity/Vol] 11 U/L 7-52 [facility] Albumin [Mass/volume] in Ser um or Plasma by Bromocresol green (BCG) dye binding methoOrdered By: Pravin Granado on 12-17-2022 Albumin BCG dye [Mass/Vol] 4.4 g/dL 3.5-5.7 [facility] Alkaline phosphatase [Enzyma tic activity/volume] in Serum or PlasmaOrdered By: Pravin Granado on 12-17-2022 ALP [Catalytic activity/Vol] 79 U/L 34-104 [facility] Amylaseon 12-17-2022 Amylase [Catalytic activity/Vol] 22 U/L Low 29103 [facility] Comment on above: Performed By: #### L IPASE, CMP, UMU #### [facility] [address] Amylase [Enzymatic activity/ volume] in Serum or PlasmaOrdered By: Pravin Granado on 12-17-2022 Amylase [Catalytic activity/Vol] 22 U/L 29103 [facility] Aspartate aminotransferase [ Enzymatic activity/volume] in Serum or PlasmaOrdered By: Pravin Granado on 12-17-2022 AST [Catalytic activity/Vol] 22 U/L 13-39 [facility] Basophils Auto (Bld) [#/Vol] Ordered By: Pravin Granado on 12-17-2022 Basophils (Bld) [#/Vol] 0.0 10*3/uL 0.0-0.2 [facility] Basophils/100 WBC Auto (Bld) Ordered By: Pravin Granado on 12-17-2022 Basophils/100 WBC (Bld) 0.9 % . [facility] Bilirubin.total [Mass/volume ] in Serum or PlasmaOrdered By: Pravin Granado on 12-17-2022 Bilirubin [Mass/Vol] 0.7 mg/dL 0.3-1.0 [facility] Calcium [Mass/volume] in Ser um or PlasmaOrdered By: Pravin Granado on 12-17-2022 Calcium [Mass/Vol] 9.4 mg/dL 8.6-10.3 [facility] Carbon dioxide, total [Moles /volume] in Serum or PlasmaOrdered By: Pravni Granado on 12-17-2022 CO2 [Moles/Vol] 29.9 mmol/L 21.0-31.0 [facility] Chloride [Moles/volume] in S nia or PlasmaOrdered By: Pravin Granado on 12-17-2022 Chloride [Moles/Vol] 101 mmol/L 98-107 [facility] Complete Blood Count Auto Di ffon 12-17-2022 Basophils (Bld) [#/Vol] 0.0 10*3/uL Normal 0.0-0.2 [facility] Comment on above: Result Comment: PERF ORMED BY: [place] [id number] PATHOLOGIST BODY ENGINEER WILDER BOTELLO M.D. Performed By: #### C BC #### [address] Basophils/100 WBC (Bld) 0.9 % Normal . [facility] Comment on above: Performed By: #### C BC #### [address] Eosinophils (Bld) [#/Vol] 0.1 10*3/uL Normal 0.0-0.45 [facility] Comment on above: Performed By: #### C BC #### [address] Eosinophils/100 WBC (Bld) 2.9 % Normal . [facility] Comment on above: Performed By: #### C BC #### [address] Erythrocyte distribution width (RBC) [Ratio] 17.1 % High 11.9-15.3 [facility] Comment on above: Performed By: #### C BC #### [address] Hematocrit (Bld) [Volume fraction] 33.5 % Low 34.0-46.4 [facility] Comment on above: Performed By: #### C BC #### [address] Hemoglobin (Bld) [Mass/Vol] 11.0 g/dL Low 11.8-15.4 [facility] Comment on above: Performed By: #### C BC #### [address] Lymphocytes (Bld) [#/Vol] 1.2 10*3/uL Normal 1.00-4.8 [facility] Comment on above: Performed By: #### C BC #### [place] [address] [place] Lymphocytes/100 WBC (Bld) 24.6 % Normal . [facility] Comment on above: Performed By: #### C BC #### [facility] [address] MCH (RBC) [Entitic mass] 27.0 pg Normal 24.7-34.3 [facility] Comment on above: Performed By: #### C BC #### [facility] [address] MCV (RBC) [Entitic vol] 82.6 fL Normal 80-100 [facility] Comment on above: Performed By: #### C BC #### [address] Mean Corpuscular HGB Conc 32.7 g/dL Normal 32.0-35.0 [facility] Comment on above: Performed By: #### C BC #### [address] Monocytes (Bld) [#/Vol] 0.3 10*3/uL Normal 0.0-0.8 [facility] Comment on above: Performed By: #### C BC #### [address] Monocytes/100 WBC (Bld) 19.78 % Normal 0.00-20.00 [facility] Comment on above: Performed By: #### C BC #### [address] Monocytes/100 WBC (Bld) 6.1 % Normal . [facility] Comment on above: Performed By: #### C BC #### [place] [address] [place] Neutrophils (Bld) [#/Vol] 3.1 10*3/uL Normal 1.8-7.7 [facility] Comment on above: Performed By: #### C BC #### [address] Neutrophils/100 WBC (Bld) 65.5 % Normal . [facility] Comment on above: Performed By: #### C BC #### [facility] [address] NRBC% 0.3 /100{WBC} Normal 0-0.5 [facility] Comment on above: Performed By: #### C BC #### [facility] [address] Platelet mean volume (Bld) [Entitic vol] 8.1 fL Normal 6.3-10.7 [facility] Comment on above: Performed By: #### C BC #### [facility] [address] Platelets (Bld) [#/Vol] 236 10*3/uL Normal 150-450 [facility] Comment on above: Performed By: #### C BC #### [address] RBC (Bld) [#/Vol] 4.05 10*6/uL Normal 3.60-5.00 [facility] Comment on above: Performed By: #### C BC #### [address] WBC (Bld) [#/Vol] 4.8 10*3/uL Normal 3.8-11.6 [facility] Comment on above: Performed By: #### C BC #### [address] Comprehensive Metabolic Pane lit 12-17-2022 Albumin [Mass/Vol] 4.4 g/dL Normal 3.5-5.7 [facility] Comment on above: Performed By: #### L IPASE, CMP, UMU #### [address] Albumin/Globulin [Mass ratio] 1.4 {ratio} Normal [facility] Comment on above: Performed By: #### L IPASE, CMP, UMU #### [address] ALP [Catalytic activity/Vol] 79 U/L Normal 34-104 [facility] Comment on above: Performed By: #### L IPASE, CMP, UMU #### [facility] [address] [place] [address] [place] ALT [Catalytic activity/Vol] 11 U/L Normal 7-52 [facility] Comment on above: Performed By: #### L IPASE, CMP, UMU #### [facility] [address] [place] [address] [facility] Anion gap [Moles/Vol] 9.4 mmol/L Normal 6.0-15.0 [facility] Comment on above: Performed By: #### L IPASE, CMP, UMU #### [facility] [address] [place] [id number] [facility] AST [Catalytic activity/Vol] 22 U/L Normal 13-39 [facility] Comment on above: Performed By: #### L IPASE, CMP, UMU #### [facility] [address] [place] [id number] [facility] Bilirubin [Mass/Vol] 0.7 mg/dL Normal 0.3-1.0 [facility] Comment on above: Performed By: #### L IPASE, CMP, UMU #### [facility] [address] [place] [id number] [place] Calcium [Mass/Vol] 9.4 mg/dL Normal 8.6-10.3 [facility] Comment on above: Performed By: #### L IPASE, CMP, UMU #### [facility] [address] [place] [address] [place] Chloride [Moles/Vol] 101 mmol/L Normal 98-107 [facility] Comment on above: Performed By: #### L IPASE, CMP, UMU #### [facility] [address] [place] [address] [place] CO2 [Moles/Vol] 29.9 mmol/L Normal 21.0-31.0 [facility] Comment on above: Performed By: #### L IPASE, CMP, UMU #### [facility] [address] [place] [id number] [place] Creatinine [Mass/Vol] 0.90 mg/dL Normal 0.60-1.20 [facility] Comment on above: Performed By: #### L IPAMONICA FERNANDEZ, UMU #### [facility] [address] [place] [address] [place] GFR/1.73 sq M.predicted MDRD (S/P/Bld) [Vol rate/Area] mL/min/{1.73_m2} [facility] Comment on above: Performed By: #### L IPASEMONICA, UMU #### [facility] [address] Globulin (S) [Mass/Vol] 3.1 g/dL [facility] Comment on above: Performed By: #### L IPASEMONICA, UMU #### [facility] [address] Glucose [Mass/Vol] 119 mg/dL High 70-100 [facility] Comment on above: Result Comment: [place] Glucose Reference Range is dependent on time and content of last meal. Glucose of more than 200 mg/dL in a nonstressed, ambulatory subject supports the diagnosis of Diabetes Mellitus. ADA recommended reference range Performed By: #### L IPAMONICA FERNANDEZ, UMU #### [facility] [address] Potassium [Moles/Vol] 3.3 mmol/L Low 3.5-5.1 [facility] Comment on above: Performed By: #### L IPAMONICA FERNANDEZ, UMU #### [facility] [address] [place] [address] [place] Protein [Mass/Vol] 7.5 g/dL Normal 6.4-8.9 [facility] Comment on above: Performed By: #### L IPASEMONICA, UMU #### [facility] [address] [place] [address] [place] Sodium [Moles/Vol] 137 mmol/L Normal 136-145 [facility] Comment on above: Performed By: #### L IPASE CMP, UMU #### [facility] [address] Urea nitrogen [Mass/Vol] 14 mg/dL Normal 7-25 [facility] Comment on above: Performed By: #### L IPASE, MONICA, UMU #### [facility] [address] Creatinine [Mass/volume] in Serum or PlasmaOrdered By: Pravin Granado on 12-17-2022 Creatinine [Mass/Vol] 0.90 mg/dL 0.60-1.20 [facility] ECG 12 lead ECGon 12-17-2022 ECG 12 lead ECG [facility] [place] [address] [place] [address] Electrocardiograph Report Signed Patient: Gerry Vicotria MR#: [id number] 10 : 1955 Acct:[id number] Age/Sex: 67 / F ADM Date: 12/17/22 Loc: ER Room: Type: [facility] ER Attending Dr: Ordering Provider: Pravin Granado [...] When compared with ECG of 15-MAY-2022 20:35, VA interval has increased T wave amplitude has decreased in Inferior leads T wave amplitude has decreased in Anterior leads Confirmed by PRAVIN GRANADO MD ([id number]) on 12/17/2022 3:34:33 PM Referred By: Electronically Signed By:PRAVIN GRANADO MD Transcribed By: MUS Signed By Pravin Granado MD 12/17/22 1534 Normal [facility] Eosinophils Auto (Bld) [#/Vo l]Ordered By: Pravin Granado on 12-17-2022 Eosinophils (Bld) [#/Vol] 0.1 10*3/uL 0.0-0.45 [facility] Eosinophils/100 WBC Auto (Bl d)Ordered By: Pravin Granado on 12-17-2022 Eosinophils/100 WBC (Bld) 2.9 % . [facility] Erythrocyte distribution wid th Auto (RBC) [Ratio]Ordered By: Pravin Granado on 12-17-2022 Erythrocyte distribution width (RBC) [Ratio] 17.1 % 11.9-15.3 [facility] Globulin Calc (S) [Mass/Vol] Ordered By: Pravin Granado on 12-17-2022 Globulin (S) [Mass/Vol] 3.1 g/dL [facility] Glucose [Mass/volume] in Ser um or PlasmaOrdered By: Pravin Granado on 12-17-2022 Glucose [Mass/Vol] 119 mg/dL 70-100 [facility] Comment on above: ADA recommended refe rence rangeRandom Glucose Reference Range is dependent on time and content of last meal. Glucose of more than 200 mg/dL in a nonstressed, ambulatory subject supports the diagnosis of Diabetes Mellitus. Hematocrit Auto (Bld) [Volum e fraction]Ordered By: Pravin Granado on 12-17-2022 Hematocrit (Bld) [Volume fraction] 33.5 % 34.0-46.4 [facility] Hemoglobin [Mass/volume] in BloodOrdered By: Pravin Granado on 12-17-2022 Hemoglobin (Bld) [Mass/Vol] 11.0 g/dL 11.8-15.4 [facility] Leukocytes [#/volume] correc poly for nucleated erythrocytes in Blood by Automated counOrdered By: Pravin Granado on 12-17-2022 WBC corrected for nucl RBC Auto (Bld) [#/Vol] 4.8 10*3/uL 3.8-11.6 [facility] Lipaseon 12-17-2022 Lipase [Catalytic activity/Vol] 8.0 U/L Low 11.0-82.0 [facility] Comment on above: Result Comment: PERF ORMED BY: [place] [id number] PATHOLOGIST BODY ENGINEER WILDER BOTELLO M.D. Performed By: #### L MONICA MEYERS AMY #### [address] Lipase [Enzymatic activity/v olume] in Serum or PlasmaOrdered By: Pravin Granado on 12-17-2022 Lipase [Catalytic activity/Vol] 8.0 U/L 11.0-82.0 [facility] Lymphocytes Auto (Bld) [#/Vo l]Ordered By: Pravin Granado on 12-17-2022 Lymphocytes (Bld) [#/Vol] 1.2 10*3/uL 1.00-4.8 [facility] Lymphocytes/100 WBC Auto (Bl d)Ordered By: Pravin Granado on 12-17-2022 Lymphocytes/100 WBC (Bld) 24.6 % . [facility] MCH Auto (RBC) [Entitic mass ]Ordered By: Pravin Granado on 12-17-2022 MCH (RBC) [Entitic mass] 27.0 pg 24.7-34.3 [facility] MCHC Auto (RBC) [Mass/Vol]Or dered By: Pravin Granado on 12-17-2022 MCHC (RBC) [Mass/Vol] 32.7 g/dL 32.0-35.0 [facility] MCV Auto (RBC) [Entitic vol] Ordered By: Pravin Granado on 12-17-2022 MCV (RBC) [Entitic vol] 82.6 fL 80-100 [facility] Monocyte distribution width [Entitic volume] in Blood by AutomatedOrdered By: Pravin Granado on 12-17-2022 Monocyte distribution width Auto (Bld) [Entitic vol] 19.78 % 0.00-20.00 [facility] Monocytes Auto (Bld) [#/Vol] Ordered By: Pravin Granado on 12-17-2022 Monocytes (Bld) [#/Vol] 0.3 10*3/uL 0.0-0.8 [facility] Monocytes/100 WBC Auto (Bld) Ordered By: Pravin Granado on 12-17-2022 Monocytes/100 WBC (Bld) 6.1 % . [facility] Neutrophils Auto (Bld) [#/Vo l]Ordered By: Pravin Granado on 12-17-2022 Neutrophils (Bld) [#/Vol] 3.1 10*3/uL 1.8-7.7 [facility] Neutrophils/100 WBC Auto (Bl d)Ordered By: Pravin Granado on 12-17-2022 Neutrophils/100 WBC (Bld) 65.5 % . [facility] No Panel InformationOrdered By: Pravin Granado on 12-17-2022 Estimated GFR (CKD-EPI) > 60.0 mL/Min [facility] Creatinine Clearance (Chem N/A [facility] Nucleated erythrocytes [Pres ence] in Blood by Automated countOrdered By: Pravin Granado on 12-17-2022 Nucleated RBC Auto Ql (Bld) 0.3 /100{WBC} 0-0.5 [facility] Platelet mean volume Auto (B ld) [Entitic vol]Ordered By: Pravin Granado on 12-17-2022 Platelet mean volume (Bld) [Entitic vol] 8.1 fL 6.3-10.7 [facility] Platelets Auto (Bld) [#/Vol] Ordered By: Pravin Granado on 12-17-2022 Platelets (Bld) [#/Vol] 236 10*3/uL 150-450 [facility] Potassium [Moles/volume] in Serum or PlasmaOrdered By: Pravin Granado on 12-17-2022 Potassium [Moles/Vol] 3.3 mmol/L 3.5-5.1 [facility] Protein [Mass/volume] in Ser um or PlasmaOrdered By: Pravin Granado on 12-17-2022 Protein [Mass/Vol] 7.5 g/dL 6.4-8.9 [facility] RBC Auto (Bld) [#/Vol]Ordere d By: Pravin Granado on 12-17-2022 RBC (Bld) [#/Vol] 4.05 10*6/uL 3.60-5.00 [facility] Serum or plasma albumin/glob ulin mass ratioOrdered By: Pravin Granado on 12-17-2022 Albumin/Globulin [Mass ratio] 1.4 {ratio} [facility] Serum or plasma anion gap de terminationOrdered By: Pravin Granado on 12-17-2022 Anion gap [Moles/Vol] 9.4 mmol/L 6.0-15.0 [facility] Sodium [Moles/volume] in Ser um or PlasmaOrdered By: Pravin Granado on 12-17-2022 Sodium [Moles/Vol] 137 mmol/L 136-145 [facility] Urea nitrogen [Mass/volume] in Serum or PlasmaOrdered By: Pravin Granado on 12-17-2022 Urea nitrogen [Mass/Vol] 14 mg/dL 7-25 [facility] WBC Auto (Bld) [#/Vol]Ordere d By: Pravin Granado on 12-17-2022 WBC (Bld) [#/Vol] 4.8 10*3/uL 3.8-11.6 [facility] US venous duplex LE LTon US venous duplex LE LT [facility] [address] Ultrasound Report Signed Patient: Gerry Victoria MR#: [id number] 10 : 1955 Acct:[id number] Age/Sex: 67 / F ADM Date: 11/04/22 Loc: Room: Type: [facility] Attending Dr: Ward Mtz MD Ordering Provider: [...] 7 mm in greatest diameter. 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 Lesser saphenous vein is also incompetent and dilated. Impression dictated by: Ward Mtz M.D.11/07/2022 12:52 PM Dictation Location: [facility] Tech: Ana Henrietta Transcribed By: MANUEL 11/07/22 1252 Dictated By: Ward Mtz MD 11/07/22 1249 Signed By: 11/07/22 1252 Normal [facility] CT cervical spine wo conon 0 11-04-2022 CT cervical spine wo con [facility] [place] [address] [place] [address] CT Scan Report Signed Patient: Gerry Victoria MR#: [id number] 10 : 1955 Acct:[id number] Age/Sex: 67 / F ADM Date: 11/04/22 Loc: ER Room: Type: PRE ER Attending Dr: Copies to: Maico Perla DO Ordering Provider: Maico Perla DO Date of Service: 11/04/22 CT/CT head/brain wo con: fall ([id number]) CT/CT cervical spine wo con: fall CLINICAL [...] Elaine Mcadams M.D.11/04/2022 11:30 AM Dictation Location: [place] [address] Transcribed By: [facility] 11/04/22 1130 Dictated By: Elaine Mcadams MD 11/04/22 1123 Signed By: 11/04/22 1130 Normal [facility] XR knee LT 2Von 11-04-2022 XR knee LT 2V [place] [address] XRay Report Signed Patient: Gerry Victoria MR#: [id number] 10 : 1955 Acct:[id number] Age/Sex: 67 / F ADM Date: 11/04/22 [...] Elaine Mcadams M.D.11/04/2022 11:37 AM Dictation Location: [place] [address] Transcribed By: [facility] 11/04/22 113 Dictated By: Elaine Mcadams MD 11/04/22 113 Signed By: 11/04/22 113 [facility] MRSA Screenon 09-29-2022 MRSA DNA ROXANA+probe Ql (Unsp spec) Microbiology PROCEDURE: MRSA Screen [R1] SOURCE: Nasal BODY SITE: COLLECTED DATE/TIME: 09/27/2022 05:44 EDT RECEIVED DATE/TIME: 09/27/2022 06:10 EDT START DATE/TIME: 09/27/2022 06:10 EDT FREE TEXT SOURCE: Maliha PADILLA DO, DO, Ronobir R FINAL REPORTS Final Report [] Verified Date/Time: 09/29/2022 09:04 EDT MRSA Negative. Performing Locations R1: This test was performed at: [facility], [address] [place] [address], [address] , , Normal [facility] Comment on above: Performed By: #### 1 [id number] #### [facility] [address] [place] [address] Auto Diffon 09-27-2022 Basophils/100 WBC (Bld) 1.0 % Normal 0.0-2.0 [facility] Comment on above: Order Comment: Order Added by Discern Expert. Performed By: #### 2 416031, 48992449, 2010980, 6311752, 7094522, 05369843, 6654023, 5267696 #### [facility] [address] [place] [address] Basophils/Leukocytes Auto (Bld) [Pure # fraction] 0.1 E9/L Normal 0.0-0.2 [facility] Comment on above: Order Comment: Order Added by Discern Expert. Performed By: #### 2 961395, 09184709, 4509877, 0771505, 1905052, 14603698, 6990946, 4419945 #### [facility] [address] [place] [address] Eosinophils/100 WBC (Bld) 8.4 % High 0.0-8.0 [facility] Comment on above: Order Comment: Order Added by Discern Expert. Performed By: #### 2 098318, 01541117, 2341632, 2373970, 1111293, 69168877, 0960322, 6619100 #### [facility] [address] [place] [address] Eosinophils/Leukocytes Auto (Bld) [Pure # fraction] 0.5 E9/L Normal 0.0-0.5 [facility] Comment on above: Order Comment: Order Added by Discern Expert. Performed By: #### 2 985913, 53787488, 4744210, 2113421, 1221865, 90855083, 2043433, 0404728 #### [facility] [address] [place] [address] Lymphocytes/100 WBC (Bld) 18.0 % Normal 14.0-50.0 [facility] Comment on above: Order Comment: Order Added by Discern Expert. Performed By: #### 2 308217, 06263387, 1382476, 6644292, 7896193, 35496021, 6233479, 5620250 #### [facility] [address] [place] [address] Lymphocytes/Leukocytes Auto (Bld) [Pure # fraction] 1.1 E9/L Normal 1.0-4.0 [facility] Comment on above: Order Comment: Order Added by Discern Expert. Performed By: #### 2 016110, 67709632, 5148736, 8491833, 7662052, 07303659, 4772755, 4587306 #### [facility] [address] [place] [address] Monocytes/100 WBC (Bld) 11.2 % Normal 4.0-14.0 [facility] Comment on above: Order Comment: Order Added by Discern Expert. Performed By: #### 2 766590, 60846452, 0259162, 4307305, 0492850, 20439043, 6012646, 1842570 #### [facility] [address] [place] [address] Monocytes/Leukocytes Auto (Bld) [Pure # fraction] 0.7 E9/L Normal 0.2-1.0 [facility] Comment on above: Order Comment: Order Added by Discern Expert. Performed By: #### 2 711043, 38339681, 6422757, 1750159, 0560939, 48262591, 1474730, 9621367 #### [facility] [address] [place] [address] Neutrophils/100 WBC (Bld) 61.4 % Normal 36.0-75.0 [facility] Comment on above: Order Comment: Order Added by Discern Expert. Performed By: #### 2 648456, 66456613, 9098184, 9176624, 2905042, 36967961, 7722456, 6864491 #### [facility] [address] [place] [address] Neutrophils/Leukocytes Auto (Bld) [Pure # fraction] 3.6 E9/L Normal 2.0-7.5 [facility] Comment on above: Order Comment: Order Added by Discern Expert. Performed By: #### 2 191103, 29358039, 8483226, 6904713, 7254101, 31047563, 0858842, 4239146 #### [facility] [address] [place] [address] BMPon 09-27-2022 Creatinine [Mass/Vol] 1.2 mg/dL Normal 0.5-1.3 [facility] Comment on above: Performed By: #### 2 868267, 52976181, 2574720, 5280976, 3606105, 24267958, 8288035, 3604453 #### [facility] [address] [place] [address] Urea nitrogen [Mass/Vol] 17 mg/dL Normal 5-21 [facility] Comment on above: Performed By: #### 2 948892, 77043404, 1648536, 8277533, 2635661, 72511234, 9647166, 7581019 #### [facility] [address] [place] [address] Urea nitrogen/Creatinine [Mass ratio] 14 No Units Normal 10-20 [facility] Comment on above: Performed By: #### 2 803220, 19377617, 6724956, 3264380, 4548068, 70736897, 1807828, 4015272 #### [facility] [address] [place] [address] Anion gap [Moles/Vol] 12 mmol/L Normal 6-16 [facility] Comment on above: Performed By: #### 2 643027, 91937558, 6910399, 4130605, 1199640, 48162704, 1841148, 8325249 #### [facility] [address] [place] [address] Calcium [Mass/Vol] 8.9 mg/dL Normal 8.9-11.1 [facility] Comment on above: Performed By: #### 2 434999, 06929837, 6252636, 0237932, 1337434, 18493048, 0433159, 1102354 #### [facility] [address] [place] [address] Chloride [Moles/Vol] 101 mmol/L Normal 101-111 [facility] Comment on above: Performed By: #### 2 584603, 23757675, 6254576, 1296053, 7797817, 95001623, 4747762, 4654174 #### [facility] [address] [place] [address] CO2 [Moles/Vol] 29 mmol/L Normal 21-31 [facility] Comment on above: Performed By: #### 2 067772, 51132423, 9725513, 5645566, 8252562, 02835906, 8885679, 0205052 #### [facility] [address] [place] [address] Glucose [Mass/Vol] 84 mg/dL Normal 55-199 [facility] Comment on above: Result Comment: If t his glucose result represents a fasting glucose, interpretation should refer to the following reference range: 55-99 mg/dL Performed By: #### 2 046012, 89039598, 1970813, 9748864, 8998653, 99974643, 6193521, 1376558 #### [facility] [address] [place] [address] Potassium [Moles/Vol] 3.6 mmol/L Normal 3.5-5.3 [facility] Comment on above: Performed By: #### 2 209840, 44150995, 2686694, 8265278, 8745060, 94827028, 3776864, 0888613 #### [facility] [address] [place] [address] Sodium [Moles/Vol] 138 mmol/L Normal 135-145 [facility] Comment on above: Performed By: #### 2 605395, 76420892, 4335979, 7633663, 0026907, 34774701, 8218185, 8260430 #### [facility] [address] [place] [address] CBC w/ Auto Diffon 3 Erythrocyte distribution width (RBC) [Ratio] 15.9 % High 10.9-14.2 [facility] Comment on above: Performed By: #### 2 159048, 10382472, 3017501, 5633637, 9937734, 50304695, 3949792, 9514720 #### [facility] [address] [place] [address] Hematocrit (Bld) [Volume fraction] 29.2 % Low 34.0-46.0 [facility] Comment on above: Performed By: #### 2 834579, 96630191, 4938544, 9188104, 1701532, 39188364, 6791387, 3264128 #### [facility] [address] [place] [address] Hemoglobin (Bld) [Mass/Vol] 9.6 g/dL Low 12.0-16.0 [facility] Comment on above: Performed By: #### 2 193673, 77231017, 9164898, 1589841, 6248709, 63929417, 2041743, 8530196 #### [facility] [address] [place] [address] MCH (RBC) [Entitic mass] 26.4 pg Low 27.0-34.0 [facility] Comment on above: Performed By: #### 2 350792, 35341720, 8886114, 6567797, 9303047, 62222037, 5777921, 8655702 #### [facility] [address] [place] [address] MCHC (RBC) [Mass/Vol] 33.0 g/dL Normal 31.4-36.0 [facility] Comment on above: Performed By: #### 2 746097, 48495580, 7519591, 5882864, 1951153, 36695225, 7409804, 7214917 #### [facility] [address] [place] [address] MCV (RBC) [Entitic vol] 79.9 fL Low 80.0-100.0 [facility] Comment on above: Performed By: #### 2 080519, 18614404, 4425711, 1184533, 9186977, 12432880, 6671781, 3895312 #### [facility] [address] [place] [address] Platelet mean volume (Bld) [Entitic vol] 7.9 fL Normal 6.4-10.8 [facility] Comment on above: Performed By: #### 2 843586, 35392980, 1153249, 6296593, 4362322, 19883911, 1080014, 8138001 #### [facility] [address] [place] [address] Platelets (Bld) [#/Vol] 249.0 E9/L Normal 150.0-500. 0 [facility] Comment on above: Performed By: #### 2 850076, 02434727, 4448112, 9973128, 2765730, 85010049, 3098486, 1953098 #### [facility] [address] [place] [address] RBC (Bld) [#/Vol] 3.7 E12/L Low 4.3-5.9 [facility] Comment on above: Performed By: #### 2 052864, 41200853, 3669197, 5204497, 5934933, 42276225, 3267460, 3276359 #### [facility] [address] [place] [address] WBC corrected for nucl RBC Auto (Bld) [#/Vol] 5.9 E9/L Normal 4.0-11.0 [facility] Comment on above: Performed By: #### 2 367396, 86864548, 1895948, 4702673, 3842885, 84444463, 2475638, 7325272 #### [facility] [address] [place] [address] CHEMISTRYOrdered By: SYSTEM SYSTEM on 09-27-2022 Albumin [...] 49 mL/min/1.73 m2 Low >=59mL/min /1.73 m2 FT Chem S Globulin (S) [Mass/Vol] 3.2 g/dL Normal 1.4 - 4.0 gm/dL [facility] Glucose [Mass/Vol] 84 mg/dL Normal 55 - 199 mg/dL [facility] Lactate [Mass/Vol] 0.5 mmol/L Normal 0.5 - 2.2 mmol/L [facility] Potassium [Moles/Vol] 3.6 mmol/L Normal 3.5 - 5.3 mmol/L [facility] Protein [Mass/Vol] 7.0 g/dL Normal 6.0 - 7.8 gm/dL [facility] Sodium [Moles/Vol] 138 mmol/L Normal 135 - 145 mmol/L [facility] Urea nitrogen [Mass/Vol] 17 mg/dL Normal 5 - 21 mg/dL [facility] Remisol Urea nitrogen/Creatinine [Mass ratio] 14 mg/mg Normal 10 - 20 [facility] Remisol CRPon 09-27-2022 CRP [Mass/Vol] 7.5 mg/dL High <=1.9 [facility] Comment on above: Performed By: #### 2 416510, 99213810, 2668873, 4269222, 4238890, 13943379, 4743023, 9983584 #### [facility] [address] [place] [address] Consent To Leave AMAon 09-27 Consent To Leave AMA [id number] Normal [facility] Consent for Treatmenton Consent for Treatment [id number]:127 Normal [facility] Discharge Instructionson Discharge Instructions [id number]:127 Normal [facility] ED Clinical Summaryon 2022 ED Clinical Summary (Inserted Image. Zora ble to display) [address] [address] ED Clinical Summary Person Information Name: GERRY VICTORIA [facility] Age: 67 Years : 1955 Sex: Female Language: Serbian PCP: WARD ZUNIGA DO Marital Status: Visit [...] 09/27/2022 11:03:38 09/27/2022 11:03:38 09/27/2022 11:03:38 ADDRESS: [address] [place] [id number] PHYS DOC NOTES: MEDICAL INFORMATION: Prescriptions Given: New Medications [facility] [id number], [address], [place] [id number], [phone] cephalexin (Keflex 500 mg Cap) 1 Capsules [...] (Celebrate Multivi (more content not included)... Normal [facility] ED Note-Physicianon 09-28-19 ED Note-Physician Basic Information Time Seen: Michelle Mckenna PA-C 09/26/2022 23:42 Chief Complaint pt to ED [...] She states she then went to the [facility] Urgent care clinic and she was prescribed [...] entirety with (more content not included)... Normal [facility] Comment on above: Result Comment: Elec [...] these instructions at home: Medicines ? Take wbme-zqj-lgdjdzv and prescription medicines only as told by [...] provider. Document Revised: 12/23/2021 Document Reviewed: 12/23/2021 ElseBreathalEyes Patient Education ? 2022 Kleo. Normal [facility] ED Patient Summaryon 023 ED Patient Summary (Inserted Image. Zora ble to display) [place] [address] Patient Discharge Instructions Person Information Name: GERRY VICTORIA Age: 67 Years Arrival Date: 09/26/2022 22:52:57 Discharge Diagnosis: 1:Cellulitis of leg; 2:CAD (coronary atherosclerotic disease); 3:RLS (restless legs syndrome); 4:Hypothyroid; 5:HLD (hyperlipidemia); 6:Depression; 7:On deep vein thrombosis (DVT) prophylaxis; Left against medical advice Primary Care Physician: WARD ZUNIGA DO Provider Information Primary Provider: Chintan Heller DO Advanced Review Scheduling Coordinator:None The exam and treatment you received in the Emergency Department were for an urgent problem and are not intended as complete care. It is important that you follow up with a doctor, nurse practitioner, or physician?s recovery assistant for ongoing care. If your symptoms become worse or you do not improve as expected and you are unable to reach your usual health care provider, you should return to the Emergency Department. We are available 24 hours a day. GERRY VICTORIA has been given the following list of patient education materials, prescriptions and follow-up instructions: Follow-up Instructions: With: Address: When: WARD EFRAINYAKELIN Lares [address] [facility] [address] [place], [place] [id number] In 3 days 09/30/2022 In the event that this physician does not participate in your insurance network, please consult with your insurance company to find a nearby participating provider. Patient Education Materials: Cellulitis, Adult, Zlka-al-Qver A MESSAGE TO ALL PATIENTS REGARDING OPIOIDS PRESCRIPTION OPIOIDS: WHAT YOU NEED TO KNOW Prescription opioids can be used to help relieve xgyhycmg-jm-dceqkd pain and are often prescribed following a [...] you belie (more content not included)... Normal [facility] HEMATOLOGYOrdered By: SYSTEM SYSTEM on 09-27-2022 Basophils/100 [...] 5.9 E9/L Normal 4.0 - 11.0 E9/L [facility] HemeAutoSS Hep Func Panelon 09-27-2022 Albumin [Mass/Vol] 3.8 g/dL Normal 3.3-5.0 [facility] Comment on above: Performed By: #### 2 399241, 39410332, 1190528, 1171436, 1612218, 17945207, 7929039, 7417242 ####[facility] [address] [place] [address] Albumin/Globulin (S) [Mass conc ratio] 1.2 Normal 1.1-2.2 [facility] Comment on above: Performed By: #### 2 067914, 88993036, 8897034, 2457117, 7616303, 62386326, 0247953, 0474160 ####[facility] [address] [place] [address] ALP [Catalytic activity/Vol] 79 Int._Unit/L Normal 21-98 [facility] Comment on above: Performed By: #### 2 653083, 10839432, 7346414, 6211947, 5715797, 99052673, 9929120, 6611436 ####[address] [address] ALT No additional P-5'-P [Catalytic activity/Vol] 11 Int._Unit/L Normal 6-46 [facility] Comment on above: Performed By: #### 2 469023, 97679486, 0069530, 1308620, 7981510, 05057987, 2021482, 9255973 ####[address] [address] AST [Catalytic activity/Vol] 19 Int._Unit/L Normal 5-43 [facility] Comment on above: Performed By: #### 2 331405, 35418583, 4784268, 6852428, 9783524, 95743764, 1233619, 1832197 ####[facility] [address] [place] [address] Bilirubin [Mass/Vol] 0.6 mg/dL Normal 0.0-1.1 [facility] Comment on above: Performed By: #### 2 677185, 88919090, 4070555, 0604881, 1969299, 80198289, 0102045, 3495938 ####[facility] [address] [place] [address] Bilirubin.direct [Mass/Vol] 0.1 mg/dL Normal 0.1-0.4 [facility] Comment on above: Performed By: #### 2 453767, 38892196, 2786432, 4888829, 4681792, 66555323, 2830360, 5613030 ####[facility] [address] [place] [address] Bilirubin.indirect [Mass or moles/Vol] 0.5 mg/dL Normal 0.1-0.9 [facility] Comment on above: Performed By: #### 2 714266, 98815691, 6242902, 6674964, 7471077, 29383461, 8374972, 2435087 ####[facility] [address] [place] [address] Globulin (S) [Mass/Vol] 3.2 g/dL Normal 1.4-4.0 [facility] Comment on above: Performed By: #### 2 451426, 74553626, 1504049, 2163126, 3625947, 00852964, 7840924, 1655349 ####[facility] [address] [place] [address] Protein [Mass/Vol] 7.0 g/dL Normal 6.0-7.8 [facility] Comment on above: Performed By: #### 2 341833, 06983643, 5087689, 8455300, 4723947, 68660752, 4606408, 1319358 ####[facility] [address] [place] [address] Lactic Acidon 09-27-2022 Lactate [Mass/Vol] 0.5 mmol/L Normal 0.5-2.2 [facility] Comment on above: Performed By: #### 2 342562, 11152329, 1666208, 2978839, 8126112, 53148258, 8771599, 2757168 #### [facility] [address] [place] [address] Sed Rate Automatedon 023 Sed Rate Automated 25 mm/hr Normal 0-34 [facility] Comment on above: Performed By: #### 2 005582, 33383500, 5049255, 8617062, 4459841, 73394686, 1308068, 8718223 #### [facility] [address] [place] [address] UA With Cult Reflexon 2022 Bilirubin Ql (U) Negative Normal Negative [facility] Comment on above: Performed By: #### 1 9078345 ####[facility] [address] [place] [address] Clarity (U) SL CLOUDY Invalid Interpretation Code [facility] Comment on above: Performed By: #### 1 2495972 ####[address] [address] Color (U) YELLOW Normal Yellow [facility] Comment on above: Performed By: #### 1 1057747 ####[address] [address] Epithelial cells.squamous LM.HPF (Urine sed) [#/Area] /[HPF] Normal 0-2 [facility] Comment on above: Performed By: #### 1 4282302 ####[address] [address] Glucose Test strip (U) [Mass/Vol] Negative Normal Negative [facility] Comment on above: Performed By: #### 1 6087962 ####[place] [address] [place] [address] Hemoglobin Ql (U) Negative Normal Negative [facility] Comment on above: Performed By: #### 1 1503919 ####[place] [address] [place] [address] Ketones (U) [Mass/Vol] Negative Normal Negative [facility] Comment on above: Performed By: #### 1 2255331 ####[address] [address] [place].plasma/[place] .RBC (Bld) [Mass ratio] 0-3 Normal 0-3 [facility] Comment on above: Performed By: #### 1 7262748 ####[address] [address] Mucus Ql (Urine sed) TRACE Normal [facility] Comment on above: Performed By: #### 1 5848935 ####[address] [address] Nitrite Ql (U) Negative Normal Negative [facility] Comment on above: Performed By: #### 1 0749540 ####[address] [address] pH (U) 6.0 [pH] Invalid Interpretation Code 5.0-9.0 [facility] Comment on above: Performed By: #### 1 2943912 ####[address] [address] Protein (U) [Mass/Vol] Negative Normal Negative [facility] Comment on above: Performed By: #### 1 1263565 ####[address] [address] Specific gravity (U) [Rel density] 1.010 Invalid Interpretation Code 1.005-1.03 0 [facility] Comment on above: Performed By: #### 1 3080160 ####[address] [address] Type of Urine collection method Clean Catch Normal [facility] Comment on above: Performed By: #### 1 7217910 ####[address] [address] Urobilinogen Qn (U) 0.2 {Olivia'U}/dL Normal 0.0-1.0 [facility] Comment on above: Performed By: #### 1 5147365 ####[address] [address] WBC Auto Ql (U) TRACE Abnormal Negative [facility] Comment on above: Performed By: #### 1 5660521 ####[address] [address] WBC LM.HPF (Urine sed) [#/Area] 0-5 Normal 0-5 [facility] Comment on above: Performed By: #### 1 5890949 ####[facility] [address] [place] [address] URINALYSISOrdered By: Liz Bueno on 09-27-2022 Bilirubin [...] AM) Normal Negative [facility] UA Auto SS [place].plasma/[place] .RBC (Bld) [Mass ratio] 0-3 /HPF Normal [...] [facility] UA Auto SS Urobilinogen Qn (U) 0.7865496 {Olivia'U}/dL Normal 0.0 - 1.0 EU/dL [facility] UA Auto SS WBC Auto Ql (U) Trace *ABN* (7/4/23 4:48 AM) Invalid Interpretation Code Negative [facility] [place]A Auto SS WBC LM.HPF (Urine sed) [#/Area] 0-5 /HPF Normal 0-5/HPF [facility] UA Auto SS XR Ankle 3+ Views [...] mGy = na DAP = na Normal [facility] eGFRon 09-27-2022 GFR/1.73 sq M.predicted among non-blacks MDRD (S/P/Bld) [Vol rate/Area] 49 mL/min/1.73 m2 Low >=59 [facility] Comment on above: Order Comment: Order added by Discern Expert. Result Comment: Parachute Repairer heidi kidney disease could be indicated at eGFR's of less than 60 mL/min/1.73m2. Kidney failure is indicated at less than 15 mL/min/1.73m2. Performed By: #### 2 081973, 81970663, 5624946, 2968945, 2847565, 52229282, 9468380, 9386271 ####[facility] [address] [place] [address] Pre-Certification Formon Pre-Certification Form PT SCHEDULED W/ D R.MCBRIDE FOR LAP MERLYN ON 07/26/22 PARAMOUNT PRIMARY AND ACTIVE NPCR PER PARAMOUNT CODE MEAT CARVER (57599) DX PASSES [facility] Normal [facility] Free T4 (Free Thyroxine)on 0 09-06-2022 Free T4 [Mass/Vol] 0.30 ng/dL Low 0.61-1.12 [facility] Comment on above: Performed By: #### B MP, CBC, LIPASE, HEPATIC #### [facility] [address] [place] [address] [facility] Thyroid Stimulating Hormoneo n 09-06-2022 TSH Qn 14.86 m[IU]/L High 0.45-5.33 [facility] Comment on above: Result Comment: PERF ORMED BY: [place] [id number] PATHOLOGIST BODY ENGINEER WILDER BOTELLO M.D. Performed By: #### B MP, CBC, LIPASE, HEPATIC #### [place] [address] [place] Thyrotropin [Units/volume] i n Serum or PlasmaOrdered By: Ward Zuniga on 09-06-2022 TSH Qn 14.86 m[IU]/L 0.45-5.33 [facility] Thyroxine (T4) free [Mass/vo lume] in Serum or PlasmaOrdered By: Ward Zuniga on 09-06-2022 Free T4 [Mass/Vol] 0.30 ng/dL 0.61-1.12 [facility] Triiodothyronine (T3) Freeon 09-06-2022 Triiodothyronine (T3) Free 2.19 pg/mL Low 2.50-3.90 [facility] Comment on above: Result Comment: PERF ORMED BY: [place] [id number] PATHOLOGIST BODY ENGINEER WILDER BOTELLO M.D. Performed By: #### B MP, CBC, LIPASE, HEPATIC #### [facility] [address] [place] [address] Triiodothyronine (T3) Free [ Mass/volume] in Serum or PlasmaOrdered By: Ward Zuniga on 09-06-2022 Free T3 [Mass/Vol] 2.19 pg/mL 2.50-3.90 [facility] Coding Summary.on 08-02-2022 Coding Summary. CD:[id number] Ww+PGh lYWQ+IK1KEGPvN30vyPRrtZ6dC 0NMTElOSywgQVBQTElOSyIgbmF cPK4zcKVqNPPi IC8+IT9aSSCmWfgxaYBoa5C9vQ V2J30cie2tBWzauLD2GLNpWbBe unotv0ctoVa0JOjkJtflXsUj PLQwuF20KHE1tT92Yn28zMQtkW Zdw9dmrJa1OoGrZAZrAVZ7qMsh FPvno9BsKQUmY84fhONpy3F9 QPShrDmvqHZlYhUjmCM0fE3mIA ohgrxwc9leurqkLip6lr74dWPc g4T0dMJ8X9GbkvM9GMIeeUGy RkolsNMQkF8bxjdza1enxzzcWy YjDWBdIEv1RPa8RIGamVnqIoZa GV02CVY6SJJjwuMsD4UxPNXq vPbtJbA2o0R6Nb8DM1DZBvznP2 VNTUFSWTwvdGQ+JK31ln53C0Ig AxvoTba6PQIiBPR6gDS5kU5s VEFuYOecf4M8fIQ1E6WbbuLhvl 5be5liMBQtTVstF54ukPGoi5H8 YBAthHL9XZLyzOsuFvGkvV96 Oyc+ZHGcfAhgi4LvNxulq0xai7 awzKj2YmwkPHZlubXfpLtmDQN1 y5HpIm0bVREbcLH9ePD3rH2f SrMgTwH2RFigF009CaCxjPJeOm gsU44bS0PbyGM+JRAaLsq7QJDf vGdoZK5qP1YuWQWtntwttNSi wLbxFI0bEGHhyzcySVPaxQ8wSU BhN6u4HrNeEnC4AWbxK0BiJKVd moguVo44mG7dTcDiChS4OCmw Q6LhvnH4NVSvpNGbDMuaMSC2S2 6ee0R4FOKxHBJsTAM9fVZ3sL4r bGlnbjogbGVmdDsgdmVydGlj QFimINqnC741WMKxzUanNlFrAB luZyBEYXRlOiAgMDUvMDkvMjAy MzwvdGQ+YRPoUOB6kVwhCZGy mQXwADbrPz8nbVfptMziMH5gEN AotzwgDYJbuW0bZGRffUMhoHhc IS6yJUCeqfsmu775BaYaCPV0 AARevMZrT5CjmZ3xVzGyDUGrGG XwS0QgzTSqHGqyH398VOrmUfU5 LGNvrlFmV5LbXOFagXrkFvM1 e1N9Hj4Ox7IznqawA9XjxCWhTl ChSforQLs2S5VaPfbcdCW+PC90 KMHfSP03DWn7VMX9lEmkCMhn QXBiI9LdgY1zPfTgFNMnDMWkDn c+PHRhYmxlIHdpZHRoPScxMDAl UaZvpIzkRL4xQo5nEVMtSFEt dGyznYGiQpDqi5qjOMCbUHfxBR 1ecHuvI1SleTP1IPUoq0g3Wh79 G69zD4VpkOS+KLCnkKI5gTM9 eA8dCuQqGiX8HWmoE474EhZxnZ ZvXbyoj4rrb3thvQz0UyG3RIAj fqMfxVzvQEB9o7VmQl33X77h IHdpZHRoPSIxNSUiIHZhbGlnbj 8ofP0uXv9+YKRdjCY0eBN0eW1o AeIzGzN5SNqsF881InIdpZEh Uxlqc5utm2dfqBl8UtUvSDDqde MtqBkeZTQ9b1NsFj46S3NplTrq g9LoSkk0nd92fHCsy1N5tFQ3 A4FsRXMxgrmwpCSvcZyiSH2gCM PveeliRGFtuT6wQYWrL8v3WiDx HeV9UUsaY1LbkyB4NKNlwHNa BJAipNBCoE4hjwstc3kndjckVq OiPHPyFAz8UTu1SRDikVgvOmNy XPK6GnK6EPO8tZHbuQ4lcOit qqgefN4xIzq+LZO5qBFrkGKFSN 1lOjwvdGQ+DMFuFVU4aIxdLQbj SWNtdZ6qTUSzC9q2NfZnXfU4 BNjeJ6DzeiL4OFYfgKYrLHHytS VJkZ7pqqcxe0uhvqxuIqEmJMDa RMv5TGj8IEWreHabPfGyKLF3 QqS1KBI4vBWcnL7jsQvsbbvdhJ 9wOyc+RymkiPqyJIJ7ZTw3C9Km Yaa1ESUddBazKB4hhQTqPDvo Lu0tzJiktQflLT1mHUTnmaqvc5 39HaDuj3hmPZGsnDJpEIiwFEW7 W24kb7E1WJXvIGIoWHV0hPR3 nR5wxJcpncdubSAhhMaymrQcwZ ajAFecRItlF722GXJdrNxkLpDn QZy3K6OeIrx0UQZfpSpxEM7q dPUlMDcuWj5fqSpjbRclWD4vJT Jjtksol958KoDyo7vfCMYvrFSq UWgkGKN3E70tr6K9OWWoUYSn VIF6nVE4pI1vaJtbrfuyjSQuhK bxliRtiPwnOKtrNIobJ695ZSWu qQnpGxDpdIl3O9PsBzd2YLKg zJyxCF8niCFpNYjlSj6glWlgzU xcSU7tJVWlbfixe960UoFxs8fa UQDttMEeDEgbZCO5Y83ot9P8 DZVwMEKfIQC0fOQ0pW6giQwjou ogbGVmdDsgdmVydGljYWwtYWxp W035ADVfxAsvWiXvvEpqbzTq UCwdYLa4D6FjQrkycNK+PC90YW UiFC38xCGsvZZtw5xeqZl0HoXj DLAgSFP6zKviWBazg8ObFYEw I85hlIJpp9V4TVZmvDxqlZQyTe BtuMN0lW8wRXbfwedpj0bydrqr Kxhbq6fbof40nN94C92yQOzv DARnPCArUDYqVSGixOofud2bkJ 9wIi8+CSEbqJY0nLS2dJ8yIMMj FbM4VGdzS369AtNvcXVdWepc j4qry4eepFc4UcO3INBsllWsgJ kmFAU5e2OcZg66U32kMCvaTYVt MYGxLALxTACrjKmuzq5sjC7q Ii8+CTIipYF1jRW6qU0jXnBzKk W3PNhyA056RsBcgYIqNrncS44r R3YsnOP+QVQiHhr8TDCusWum OX4sxGYvFKkaUp7sLQQ0SqSbFh CwPNvlE5GlYLWxyowgjmgnnMJ2 NJMiFGIlaN14Ws4kaDleSNKh oKHAsY4cnmpsx1atrnqrAxFzPO SzVYj8UAv2YAJduAnxXdZvZDR0 AcU2SCS1uUHusD8hjRzkyerg aD2rE5NhUAKyyrhzQm47vC7fBy YeQzC6UBisHxp+QFxZQF4UALMF PLMJGhRIFB13LR43kCUfi8D9 aVT2F2XaDKJshirdrxllxHE2TL RdSGItcA90wUNuJCyaFo4or6E8 s388PSFcKXJueO76Bp5uaBce HZHjtHRZiS2zpnran2zvmibgZs ZvGOPrPJl9QTg6QSOapYwxQnCm KNA4WaV8AAZ0cUVvzV2wpFel jakatM1hMjv+PWAaDxXdHBm6OY wvdGQ+EOSgUCY2fIajEQafBFBy pN6aLMRxB0w8VhXuRcM0KOzx R9BoLXOzcxivRc99wF2fLiHtYq W8VPibL8XgzbD9IIKgsUFcLIur IJW7H91xm4N2VIGtDNFlZHX3 zCX9vH8buUvtpmbbvLNbfBqcby MkiNwjFAyfHSytE153WLBtxAcn MxI2LYjxJHIhCI49GH37rREz y8K4nBF5O1QnUSFljlgmxrgyfE S3VJHbAJDrpU72cBIeSMkgVs0f z4C6m650KAPbPZPinH93Nm0h gUyhKJWccJFXyA5nfajbb1qcre rhFoKlAQTyGJj9LCt9FZZxqQvg RrBxJPM4RmX8OCK8ySFdpE3l uCqprdjcaF3wDkj+RmVtYWxlPC 83YR14rJEup7K6oIU7G0QtOVIv vtqihjtauCH0LKOxLHLyxN55 oLIbYCtpRe4xe4P7l160RZVrWX NgaO09Od1trKojUUKdbNBCoP2g gjjez5jqbhmzWuNeROKzMZg7 LBm4QKPtpOnaZvWxNXN5SoQ6XB M4oLXyeU1zkNmoqrqazK2bFwu+ FE0evBstqV7ccU8VQC7tRLOa aVFQjEAcGRG7IL96IH48E7HpLh wvdGFibGU+PHRhYmxlIHdpZHRo PAlbFXYwThLmgOonUA4vNx4n RZRfZAMlbRvqyDScWxNtw2zhMA PnVZamSL3ctAhhP9FefYQ3WWRy g5g0Eh64Y60yH8VrwJE+PGNv nZO8qII1zI3jHcAeWdS0WSrhO5 96JjPggQYfKdzgn6quj8tgcUu6 QuUiNDVmspWdbTjmEQR4i6Ys Vn12F42sRGykHQJiUNXpSACyXS FfvRyzsm4cbE3sRy5+PGNvbCB3 zRE7fX6pIxIxCfI5KQooX801 GfNgiAFiCwzsB74tO1HvqRK+PH WgRbr6PNPvuNspIM4aoVNyBNwz Ns7fCIK7JlYnWiXoJOeqV8Zr WWAatofbffjqnGE1WESfVGSuyB 67Kt5alJglOf0bIIPtKXA1XDWp wSFsA9VucK6tNaJmQKNwXZRr J8MrvNUzURjqQ630EGgdToD5WD YaooVqI5TqOEGbzHxaHaR3c6F7 Wl0FsOfnvKDiQC1tJlSiMLm6 N0HeFmh2QIXwdLhaMT1tbOSpBX iqXp3gkPafyLszTL1nQOSeqqgm u643LiNky3svLAUdfSDcPBbj MKL9E13zx5F0TDRwCPZoZHA0hE R9jH3xnXzltoqohDLsjLpbqyXv xHoeHByvDZqaU361XHZqzZuh FmIIKnu6I4TuVml0TIIpqWwhQO 8yzPQtDLjgLl9fmKwjuQzmAH7c MAShqdama718VyMql9tcJJTw oYGuLVkjGLT2C63ym6R4DQRdZD ByCVX9oDN1eQ9gpWonudmgbJZw cVvraqEmuHbnIQjzIRfoE666 NHEryLzuUy3HHkh6Y3CaSnq1QJ KtqSivVT8qvYJhSOttIf5pqHqt eYdfPW7oLPZbpypdq211IkWe m4dwCULrxSPoCEnwCQK8U80qo5 Q9ANPoMWDpTUZ7jZA1uL9dzFce bjogbGVmdDsgdmVydGljYWwt QLyjZ728WRWrnKuwDlLyhNJdCs wvdGQ+HR78jr38S1RvJhlhDjz7 XNVwZCS5gDB0qH6wVGVkZBxf f0P6wRR4 (more content not included)... Normal [facility] IntraOperative Documentson 0 07-29-2022 IntraOperative Documents [id number]:127 Normal [facility] Postoperative Documentson Postoperative Documents [id number]:127 Normal [facility] Main OR Intraoperative Recor don 07-28-2022 Main OR Intraoperative Record IntraOp Document Type FT Summary Primary Physician: Talon Mcbride DO Finalized Date/Time: 07/28/22 08:06:27 Pt. Name: RYLIEGERRY./Sex: 1955 Female Med Rec #: [id number] Physician: Talon Mcbride DO Financial #: [id number] Pt. Type: A Room/Bed: [place] [address] Admit/Disch: 07/26/22 05:37:39 - 07/26/22 14:50:00 Institution: Case Times FT Entry 1 Patient Times In Room 07/26/22 08:22:00 Out Room 07/26/22 11:45:00 Procedure Times Start 07/26/22 08:51:00 Stop 07/26/22 11:37:00 Anesthesia Times Start 07/26/22 08:22:00 Stop 07/26/22 11:45:00 Last Modified By: Umu Ty RN 07/26/22 11:45:16 General Comments: 07/28/22 Chart opened to review and send charges [facility]oth CSFA Case Attendance FT Entry 1 Entry 2 Entry 3 Case Attendee Deppen Jeana MENDES DO, William Taylor Waite PA-C, Candis Barker Role Performed EXTRUDER OPERATOR VERTICAL Surgeon - Primary PA/ENTERPRISE ENGINEER Time In 07/26/22 08:22:00 07/26/22 08:22:00 07/26/22 08:22:00 Time Out 07/26/22 11:45:00 07/26/22 11:45:00 07/26/22 11:45:00 Procedure CHOLECYSTECTOMY CHOLECYSTECTOMY CHOLECYSTECTOMY LAPAROSCOPIC W/ LAPAROSCOPIC W/ LAPAROSCOPIC W/ CHOLANGI(.) CHOLANGI(.) CHOLANGI(.) Comments dr winston supervising Last Modified By: Karson RN, Umu Ty RN, Umu Ty RN, Umu Weber 07/26/22 11:54:21 07/26/22 11:54:21 07/26/22 11:54:21 Entry 4 Entry 5 Entry 6 Case Attendee Kasron BACON, Belkys Andrade Ii, Sarah M Role Performed Information Technology Auditor - Primary Staff - Other Scrub - Primary Time In 07/26/22 08:22:00 07/26/22 08:22:00 07/26/22 08:22:00 Time Out 07/26/22 11:45:00 07/26/22 11:45:00 07/26/22 11:45:00 Procedure CHOLECYSTECTOMY CHOLECYSTECTOMY CHOLECYSTECTOMY LAPAROSCOPIC W/ LAPAROSCOPIC W/ LAPAROSCOPIC W/ CHOLANGI(.) CHOLANGI(.) CHOLANGI(.) Comments ORIENTATION JOIE WALLIS, [facility] INSTRUCTOR STUDENT, ALSO SCRUBBED IN Last Modified By: Karson RN, Umu Ty RN, Umu Ty RN, Umu Weber 07/26/22 11:54:21 07/26/22 11:54:21 07/26/22 11:54:21 Entry 7 Entry 8 Entry 9 Case Attendee Daphney RN, Ivet Newton RN, Jess Foley RT(R), Mamta Valles Role Performed Information Technology Auditor - Relief Information Technology Auditor - Relief Fabric Coating Supervisor Time In 07/26/22 09:08:00 07/26/22 09:08:00 07/26/22 10:45:00 Time Out 07/26/22 09:31:00 07/26/22 09:31:00 07/26/22 11:45:00 Procedure CHOLECYSTECTOMY CHOLECYSTECTOMY CHOLECYSTECTOMY LAPAROSCOPIC W/ LAPAROSCOPIC W/ LAPAROSCOPIC W/ CHOLANGI(.) CHOLANGI(.) CHOLANGI(.) Comments RN break relief. RN break relief. Preceptor Orientation. Last Modified By: Umu Ty RN, RN, Umu Orozco RN 07/26/22 11:54:21 07/26/22 11:54:21 07/26/22 11:54:21 General Comments: SANGITA CAMILO, ALSO IN ATTENDANCE. JORDI NEALhealth safety and environment manager Protocols FT Pre-Care Text: Implements protective measures [...] X-ray Applicable) PreOp Antibiotic Yes Time Out Malikpen Jeana MENDES, Given Participants Talon Mcbride DO, Waite PA-C, Candis Barker, Karson BACON, Alicia Marinelli Alfons Ii F, [...] Diagnosis C (more content not included)... Normal [facility] XR Cholangiogram in [place] XR Cholangiogram in [...] mGy = 17.37 DAP = na Normal [facility] Blood Bank Slipon 07-27-2022 Blood Bank Slip [id number]#1.00CD:127 Normal [facility] Consent for Anesthesiaon Consent for Anesthesia [id number]#1.00CD:127 Normal [facility] Discharge Instructionson Discharge Instructions [id number]#1.00CD:127 Normal [facility] IntraOperative Documentson 0 07-27-2022 IntraOperative Documents [id number]#1.00CD:127 Normal [facility] Preoperative Documentson Preoperative Documents [id number]#1.00CD:127 Normal [facility] ABO/Rhon 07-26-2022 ABO/Rh Positive Invalid Interpretation Code [facility] Comment on above: Performed By: #### 1 [id number] #### [facility] Laboratory [address] [place] [address] ABO/Rh History Checkon 07-26 ABO/Rh History Check Verified Hx Blood Type Normal [facility] Comment on above: Performed By: #### 1 [id number] #### [facility] [address] [place] [address] ABSCon 07-26-2022 ABSC Gel Interp Negative Normal [facility] Comment on above: Performed By: #### 1 [id number] #### [facility] [address] [place] [address] BLOOD BANKOrdered By: Dell Taylor on 07-26-2022 ABO/Rh Interp Positive Invalid Interpretation [place] [facility] Sub[place] ABSC Gel Interp Negative (07/26/22 6:23 AM) Normal [facility] Subsection Blood Bank ID#on 07-26-2022 BBID# [id number] Invalid Interpretation Code [facility] Comment on above: Performed By: #### 1 [id number] #### [facility] [address] [place] [address] Consent for Procedure/Surger yon 07-26-2022 Consent for Procedure/Surgery [id number]#1.00CD:127 Normal [facility] Consent for Treatmenton Consent for Treatment [id number]#1.00CD:127 Normal [facility] Discharge Instructionson Discharge Instructions GERRY VICTORIA :1955 [...] Elec tronically Signed By: Mili BACON, Robina Wolf\johnson\Date and Time Signed: 07/26/22 13:15 EDT H&P Updateon 07-26-2022 H&P Update [id number]#1.00CD:127 [facility] HEMATOLOGYOrdered By: Lucero Ramirez on 07-26-2022 Hematocrit (Bld) [Volume fraction] 31.8 % Low 34.0 - 46.0 % [facility] HemeAutoSS Hemoglobin (Bld) [Mass/Vol] 10.1 g/dL Low 12.0 - 16.0 gm/dL [facility] HemeAutoSS Hct & Hgbon 07-26-2022 Hematocrit (Bld) [Volume fraction] 31.8 % Low 34.0-46.0 [facility] Comment on above: Performed By: #### 1 [id number] #### [facility] Laboratory [address] [place] [address] Hemoglobin (Bld) [Mass/Vol] 10.1 g/dL Low 12.0-16.0 [facility] Comment on above: Performed By: #### 1 [id number] #### [facility] [address] [place] [address] Main OR PACU I Recordon Main OR PACU I Record PACU Phase I Docum ent Type FT Summary Primary Physician: Talon Mcbride DO Finalized Date/Time: 07/26/22 12:58:56 Pt. Name: GERRY VICTORIA/Sex: 1955 Female Med Rec #: [id number] Physician: Talon Mcbride DO Financial #: [id number] Pt. Type: A Room/Bed: [place] [address] Admit/Disch: 07/26/22 05:37:39 - Institution: Case Times [...] By: Violette Castillo I 07/26/22 12:58 Normal [facility] Main OR PACU II Recordon Main OR PACU II Record PACU Phase II Doc ument Type FT Summary Primary Physician: Talon Mcbride DO Finalized Date/Time: 07/26/22 15:08:15 Pt. Name: GERRY VICTORIA/Sex: 1955 Female Med Rec #: [id number] Physician: Talon Mcbride DO Financial #: [id number] Pt. Type: A Room/Bed: [place] [address] Admit/Disch: 07/26/22 05:37:39 - 07/26/22 14:50:00 Institution: [...] Signed By: Robina Garces RN 07/26/22 15:08 [facility] Main OR Preoperative Recordo n 07-26-2022 Main OR Preoperative Record PreOp Document Type FT Summary Primary Physician: Talon Mcbride DO Finalized Date/Time: 07/26/22 09:32:38 Pt. Name: GERRY VICTORIA /Sex: 1955 Female Med Rec #: [id number] Physician: Talon Mcbride DO Financial #: [id number] Pt. Type: A Room/Bed: [place] [address] Admit/Disch: 07/26/22 05:37:39 - Institution: Case Times [...] By: Umu Ty RN 07/26/22 09:32 Normal [facility] Monitor Recordon 07-26-2022 Monitor Record [id number]:127 Normal [facility] Monitor Record [id number]:127 Normal [facility] Operative Reporton Operative Report Indication for Surge ry This [...] Surgeon(s) Talon Mcbride DO (Surgeon - Primary) Box Bender Candis Theodore Anesthesia General Connie Winston DO (Histotechnologist) Jeana Villanueva CRNA (Other) Estimated Blood Loss [...] defect was closed with interrupted 0 Vicryl ujlhkk-dn-kljvx sutures as well as the existing 0 Vicryl stay sutures. The skin incisions were closed with subcuticular 4-0 Monocryl suture. The skin incisions were then dressed with Dermabond. The prior percutaneous cholecystostomy site was covered with a 2 x 2 and tape. Patient was extubated and taken to PACU in stable condition. Normal [facility] Comment on above: Result Comment: Elec [...] these instructions at home: Medicines ? Take fkwg-thx-glckbws and prescription medicines only as told by [...] cannot use soap and water, use hand hardware sales assistant. ? Change your bandage. ? Leave stitches [...] provider. Document Revised: 09/14/2021 Document Reviewed: 09/14/2021 [employer] Patient Education ? 2022 [employer]. Cholelithiasis Cholelithiasis is a disease in which [...] types o (more content not included)... Normal [facility] Progress Note-Physicianon Progress Note-Physician Patient: GERRY VICTORIA [...] day(s), # 12 tab(s), Refills(s) 0, Pharmacy: [facility] [id number], 154, cm, 07/18/22 14:13:00 EDT, Height/Length Dosing, 74.6, kg, 07/18/22 14:13:00 EDT, Weight Dosing oxybutynin 10 mg ER Tab: 10 mg = 1 tab(s), Oral, Daily, # 90 tab(s), Refills(s) 3, [id number], 154, cm, 11/30/21 13:27:00 EDT, Height/Length Dosing, [...] All Problems Acid reflux / SNOMED CT 1686530102 / Confirmed Anxiety / SNOMED CT 8822231197 / Confirmed Arthritis / SNOMED CT 9980727 / Confirmed Atrial fibrillation / SNOMED CT 30871743 / Confirmed Chronic fatigue syndrome / SNOMED CT 25163012 / Confirmed Constipation / SNOMED CT 951135542 / Confirmed Degenerative disc disease, lumbar / SNOMED CT 64805094 / Confirmed Depre (more content not included)... Normal [facility] Comment on above: Result Comment: Elec [...] Refills(s) 3, Pharmacy: [facility] [id number], 154, cm, 11/30/21 13:27:00 EDT, Height/Length Dosing, [...] All Problems Acid reflux / SNOMED CT 8694721769 / Confirmed Anxiety / SNOMED CT 8330523875 / Confirmed Arthritis / SNOMED CT 1616544 / Confirmed Atrial fibrillation / SNOMED CT 86528816 / Confirmed Chronic fatigue syndrome / SNOMED CT 54348519 / Confirmed Constipation / SNOMED CT 032722920 / Confirmed Degenerative disc disease, lumbar / SNOMED CT 64656157 / Confirmed Depression / SNOMED CT 84731634 / Confirmed Fibromyalgia / SNOMED CT 266563491 / Confirmed Herpes / SNOMED CT 438169548 / Confirmed History of irregular heartbeat / SNOMED CT 2038403411 / Confirmed (more content not included)... Normal [facility] Comment on above: Result Comment: Elec [...] Refills(s) 3, Pharmacy: [facility] [id number], 154, cm, 11/30/21 13:27:00 EDT, Height/Length Dosing, [...] All Problems Acid reflux / SNOMED CT 2995082385 / Confirmed Anxiety / SNOMED CT 3591473750 / Confirmed Arthritis / SNOMED CT 6687930 / Confirmed Atrial fibrillation / SNOMED CT 77527640 / Confirmed Chronic fatigue syndrome / SNOMED CT 29143119 / Confirmed Constipation / SNOMED CT 926078337 / Confirmed Degenerative disc disease, lumbar / SNOMED CT 58851268 / Confirmed Depression / SNOMED CT 25063831 / Confirmed Fibromyalgia / SNOMED CT 953971837 / Confirmed Herpes / SNOMED CT 772456812 / Confirmed History of irregular heartbeat / SNOMED CT 7694645117 / Confirmed (more content not included)... Normal [facility] Comment on above: Result Comment: Elec tronically Signed By: Connie Winston DO.br\Date and Time Signed: 07/26/22 07:19 EDT Coding Summary.on 07-21-2022 Coding Summary. CD:[id number] Ww+PGh lYWQ+YG2HSFHhM04snGOvdA3lE 0NMTElOSywgQVBQTElOSyIgbmF zIM3aqPBjSUZm IC8+ZR8nEUZjGglfbZRch7F1cW O7T36hoq2iPZcroEA4CUQkFpVi xqbxx1mbbGy1VKmjPjkaYcLb HRLunE49ZTE4uL74Ib41qRTpeS Psp4iqtRd1YnNjBTRjKTK6kChd MKxnx6EdESYpT28hyQCza0M8 PTAwuUqdyMOqEoRarTI3qG2nCL ijhajgi5efquwkDop4gt09nHUz n5Z7pDJ4X0KkdyZ9HSGkoRIv OhggxIKQiY4wltmbi4pgmedbGz TbZCPiHWd5XUf5GJOwhLaeTqQn RC31UTU0QIQkldKdA2MaPRXw nPfnDmE2u1C0Yb5UN8GIAfuhF9 VNTUFSWTwvdGQ+YY55se05Y1Gu XnljVtd0LVIfBWN3tYN3aB5f KMRwTPkkf3U9fBQ4C3GjkiHklg 4tm8ovHTTkVEprH50hdKPyh3E0 CFDasQY7KRMhoPntDjDjzS06 Oyc+OYDveZzfn5RjLqujw9uhb7 alzIy0OoebHQGrddDqpQvdYMO4 g2HuSv8oNPKgpZZ4kRC0gV1s PlIyEnK6YCqpJ444FwPtqBLhJx bcH08wS5GnvTM+SXAfUjh9RDHz pZwuEJ5mB7ObKEFgytgkjQYr rUioNG3vGCSfhblfJUTtfH2gCV TyQ6t4BiJkObB2WQmnG2QjTZTo quveCi35dN5sLdYyRcK2SJwb W3BeraM8MSQqxXNyKGkcVBX9X1 3gz6G0WEKyWEByFMW1iEK1hL1a bGlnbjogbGVmdDsgdmVydGlj FXxwKObzG877OSKlqZdkXhFgXE luZyBEYXRlOiAgMDQvMjcvMjAy MzwvdGQ+XPBrTBK3aIaaXFSr zORuMLtmPu7dkWlcwQypKB1oKY YxmcaxNMXdoZ2uXKLehSEyhKsw QE1nIDNcdchoj731DoHjCOX7 DCUocFPfU6VurO9nToRnRRUxWS KhL9NluAVnRZipK329UTfuGoU4 FDNwmqRfJ3HpJVXkrNhyIyF1 y6W9Fo5Ha6KvgtwyE2YirIDbMe KgUtbtIXa9N4UsKwdbbGN+PC90 ACSaKA35BLr3QDR4tLjvJGnq OABrO9IdbL1sAbHnWQTiTOOaJk c+PHRhYmxlIHdpZHRoPScxMDAl UhAunFutYG7zLm0jXZYfRHCr jGhkyIWwLwYlz0lsONNvOHdqAT 0cuIevT7TktZC0EYGsq7a9Ti23 I32eT8IlwKS+XKByaED2vYZ7 hB1zEdEgAhM4JUeuG335GyTtxG SsLheib5uca9murYa8VsQ2LZIe lbRaoTmfOBH3h5ZmFs04H17h IHdpZHRoPSIxNSUiIHZhbGlnbj 5hnN6wAu3+DTHyoCM8pFX3lH8j FpNmYdP8XGrdD293RjKqaSOr Yojmd6trk9nneRj5EuFlUMHrxw PfzHvjVFC5j8OlPr95C1IudJcs f9MlNxq9pp09dOWnn3C0fGQ6 E9NyDHBkqacuqABnuYorUM9zIX YlehcfGFDxvQ3hMSKeH9o5EwDs FhG4FLwlF0LqyjU5QGGknCMg SBMzjZQNqT6beflic2uyogxtTl GbKCRkZJl5KRr9GKNbtUayZjRu ANB1NxM4PZU8wANxzB8wjWmr ccwkfW1lGzs+QZJ0oWGsxKXFLT 1lOjwvdGQ+CASvFQA8gTqyVArl ZAFcnR3ePTUfM3i7KeHqUlQ6 MSlqH2KpsvR3VRZsaVTfHFKkoB WAqM4azbebe2utsqvqLgDpRYCu WVs8LEa3EXWwgNvnScBrNYU0 XwT9VET4pVLtjL4qsZrtbnmpvC 9wOyc+PnggoVorUFV1HYp0B8Rx Iwx1XAQsgQimNK2ajADqLTgu Ol0xzEdyxMavLX1qYFKjopden7 35DxJin8dxSJTghZSyCFgfTTJ8 T86kc6A2RARtSTRxSDK3lJH6 sV9vgOdgmvofxJRbqPxneaZkaH asJXsjJAptZ590TPDveSytNjWk GSd9Q1NyLsv4NVBugXzyRI0c hDBeEIxhHm8qlHcqoFlwAX6dVN Augzeba255EuDey3ucLILfnXSl SOwnRUI7J12nh0R2RTJuKURw RRV6pWR6sU8qlQjtdgswvDDxcV wzdwIwnIidEWyvFDapV618VCIv xKniYzCcrQr7A8UaCiq7AHKg iTmqNA0thHZmSBysIw1tzLubhY vtYX4eTQTtioksi947ZdYow9ff YOOicOLyYDacBJQ4H75zi6C7 IKMgYXFzACM7yLI7yZ7suZoxbu ogbGVmdDsgdmVydGljYWwtYWxp A631PRPcbHowBtRsjOkroxDc OIidKOf9E1YqNpqsqJH+PC90YW AnOJ06lYNopISwh3wxpTz4NyTr PEUvSVS0jQkpDYmlk9FbUDEw V09mhFTdu6P4EEDcvOhppVPsJx CytXR0vB2nSNdzsljpm5qnqjzn Uojsq9ihmy55yC65J23iSOqu BEKtGWXwJZUsXZEpsPyiyi9vgW 9wIi8+LAJjbWR5rFT1dC7eVNAd NrP9SEfxM601FbJppCSbCacy u6phf1xegPg9HaW6CVPjygAhgL xeDNQ9o2OaUb10F54eFGkrQVSf NTYvWSIjMYNdsHajme7mvI2s Ii8+PENadHC6hRW1jN4hBpZrYa U7VDxkM144YiPzyEJyRvurL26y S9CthGA+RLToTma0KCZzrNlw ZI9fpQGmDJiiZj3rOCJ8ZwBjCu NmYUzzH0FuUGZlftbrxglmpOF5 DVFjLXZzmX91Fh1fgKjmZEKy wASYvF8abglve7rbyaxmAdTcFD JuASb7NVs0HAPvuLlgKgEdAHR5 PeZ0LZU0zFOwjB2jkZphfysd rU3cX0XeSBLowjgeTi27zQ0xWt JhGdS4PMcnAcv+RTqAKO2ECJAB FZHTFpFBEW21UB03cTFbt4O0 hXY0C4GtGGBgbbodhaaqgXV0IX OsEGPpfR52nMJfQCcxFc1ai8U8 u928GFMxOBJyxN54Lo4ozKja MTThmHTNmM6iuuese0jerekfUi UjQWRtGVd7LVw8KYVmmQrxXiCk SJQ3ZzF9MUE9fRJizI2qmPcb uxvyrI1kCpn+UMLkFhMrLZz4IL wvdGQ+NYMnFEH9tTblYUcjQRUt kV2kBGMwM2u9MkWqNgN1LHhr J6OvHAOtmticZg26wJ7aOrHjNx Z3CSykT5EgdvA6RLFgvBHtBKag IBN0Q30dp7B4GOLaSWTzADA4 zVA5tC4msWnebfcprXMzlVcqhz BvvTuuUBabLKctX229VCIbbFvf XtF1GDfqTENsNR00VR73uMZj g1E7iUM4N8HePQQjgsrokzeivH V9UKTiMQVfhQ11oHDyZTonUi0z j1G8u246AUEpOCHptJ59Uh1v hJexAHDopQFXyW1yzqtri1gwlp svRlDqMBRyJIm7DKm9FRHhqYnv XoBqRQS5TaO7VZP9uMWrxO4x mHbahladmY0fWvt+RmVtYWxlPC 22AY34lMQjx3H1mJX4U0JiDFHw rkexnlbmcBK4JWNcRCRajT36 jMCuOHgeEu7ay1Y2a968JYHrPS PzeU50Cz1wgXmiIGGpzKSFbL9n dqpsu4vpbgskVjFcQNNeFKl7 RMq7VJPntTyhMrBeZOC5EpG1HJ V2yFYseM8cyTccvkolyI7bMwe+ N3M7rBK6rVJnbCclhBA+PC90 lk59U4FsFqklPqo8ETNyRPY4lJ G9tK4wAKFuGIkgz2Z2iYS3G9Ie dsAlch6ax5ioSCAcDVsxC09j nNNmi7M6FFXimAN5KQPpqGnkMe MvbL02Asc+UTJshPkuk4DnGlam t6ody0eugCu8LcWqGXMkumFq pAmqBMH7k7ElTm41R82vXVzqCX HgSNLeTNEgOICnwItklf7brI1m Ii8+FMHhqKH5uDB6xO1lRmAz KcT2VDxxM897AlWhdIJbIpxcc9 upt1eqvRx3EmZaMIDvgkHibOdv UOB9j4QkVd49H6MizOkbt7Vy Jnd5dd92eQAlb1P6lUB2X8VgIK NkxjupeNVifMptKG9rWMXauhks IOAecK4pEDBuL2s7GmKrNqE0 VVsiN1QltrI9WPObiACsEZJykB LDeV6loufed7yfqwygFzIuZMPj LFg2FTz1LZMtxOmtMkSxKLY9 MqN2ANS4eLUkyY9mlIromyoxwY 9wOyc+XTm4n5mvgARgCH0rfPH2 GU16FE42dUNwk4R9fEP9A4Oj FGWhxovfbputxBY7ZRIfCCWasS 75Qe0wzZmtPr4bNKTaWDS8QTLx fZPwN1AetU8gLbPhVUAgIGAy F7QcfHHxCLufK386CJpmZfD8RR GlutTtI3SyWXEtjAixJnX8d1Q3 Qx6NSE02AL24PR16hOAvv3V0 hDY3Q0MmHQWhoatciscwwLK9YR RmBPDuuY71Nf2hlQwqOl2pQIXg PZK9YSUmqIDzN1IrcC3hTtBw WBYbYIKaT7MkzEXkVIghT404QE dzSxR8NIZcgiJlW6CiCSJckGcf XaB3t5H7Kk9EHr31WB33RP89 gZVym5Z7zGK4B5YqDFQlrhgplk dkgBI4FLRbFVXdaX43Aj4ksJmn Kl3xQERxGGU1FHQnfQJpZ6Kn xO4gPxBdMVHcGNIiM9BvrLJoFH dcH938DQisVvG0QBVnlvJvU1Qo JJEirVyyLiW8y2E9Lh1NVOxb uml1U9IaIusskSP+KH88JRDdTM 28fBUboLThg2pjqMd6QgLkBAIt SVO5wGziWDofm5CdPMXeG42t tFSeu0G6 (more content not included)... Normal [facility] BUNon 07-18-2022 Urea nitrogen [Mass/Vol] 10 mg/dL Normal 5-21 [facility] Comment on above: Performed By: #### 2 463068, 1566772, 0223832, 2637646, 0703292, 80631776 ####[facility] [address] [place] [address] CBC w/Indiceson 07-18-2022 Erythrocyte distribution width (RBC) [Ratio] 16.6 % High 10.9-14.2 [facility] Comment on above: Performed By: #### 2 944256, 9246047, 4148712, 3660009, 1172321, 88135448 ####[facility] [address] [place] [address] Hematocrit (Bld) [Volume fraction] 29.8 % Low 34.0-46.0 [facility] Comment on above: Performed By: #### 2 475660, 9212667, 2359987, 5962179, 7014578, 77247949 ####[facility] [address] [place] [address] Hemoglobin (Bld) [Mass/Vol] 9.5 g/dL Low 12.0-16.0 [facility] Comment on above: Performed By: #### 2 930297, 6379229, 4166863, 7518000, 5280246, 62212404 ####[address] [place] [address] MCH (RBC) [Entitic mass] 26.1 pg Low 27.0-34.0 [facility] Comment on above: Performed By: #### 2 372741, 1962634, 1803918, 0973299, 7130771, 64671696 ####[address] [address] MCHC (RBC) [Mass/Vol] 31.9 g/dL Normal 31.4-36.0 [facility] Comment on above: Performed By: #### 2 846114, 5374313, 8418996, 7223158, 2925006, 56876194 ####[address] [address] MCV (RBC) [Entitic vol] 81.9 fL Normal 80.0-100.0 [facility] Comment on above: Performed By: #### 2 332855, 7094515, 5682035, 8457199, 8199272, 15583165 ####[address] [place] [address] Platelet mean volume (Bld) [Entitic vol] 7.1 fL Normal 6.4-10.8 [facility] Comment on above: Performed By: #### 2 341671, 1657309, 7696045, 1407710, 1617676, 26841678 ####[facility] [address] [place] [address] Platelets (Bld) [#/Vol] 249.0 E9/L Normal 150.0-500. 0 [facility] Comment on above: Performed By: #### 2 044043, 5376628, 4800889, 6192628, 1938420, 31162980 ####[facility] [address] [place] [address] RBC (Bld) [#/Vol] 3.6 E12/L Low 4.3-5.9 [facility] Comment on above: Performed By: #### 2 464172, 8175219, 6267634, 6657968, 2099166, 36622923 ####[facility] [address] [place] [address] WBC corrected for nucl RBC Auto (Bld) [#/Vol] 5.0 E9/L Normal 4.0-11.0 [facility] Comment on above: Performed By: #### 2 695304, 5023054, 7391445, 7672990, 6211874, 97944848 ####[facility] [address] [place] [address] CHEMISTRYOrdered By: SYSTEM SYSTEM on 07-18-2022 Anion gap [Moles/Vol] 9 mmol/L Normal 6 - 16 mEq/L [facility] Remisol Chloride [Moles/Vol] 101 mmol/L Normal 101 - 1 11 mmol/L [facility] Remisol CO2 [Moles/Vol] 30 mmol/L Normal 21 - 31 mmol/L [facility] Remisol Creatinine [Mass/Vol] 0.8 mg/dL Normal 0.5 - 1.3 mg/dL FT Remisol GFR/1.73 sq M.predicted among blacks MDRD (S/P/Bld) [Vol rate/Area] mL/min/1.73 m2 Normal >=59mL/min /1.73 m2 [facility] Chem S GFR/1.73 sq M.predicted among non-blacks MDRD (S/P/Bld) [Vol rate/Area] mL/min/1.73 m2 Normal >=59mL/min /1.73 m2 [facility] Chem S Glucose [Mass/Vol] 93 mg/dL Normal 55 - 199 mg/dL [facility] Remisol Potassium [Moles/Vol] 3.7 mmol/L Normal 3.5 - 5.3 mmol/L [facility] Remisol Sodium [Moles/Vol] 136 mmol/L Normal 135 - 145 mmol/L [facility] Remisol Urea nitrogen [Mass/Vol] 10 mg/dL Normal 5 - 21 mg/dL [facility] Remisol Consent for Treatmenton 06-26 Consent for Treatment [id number]:127 Normal [facility] Creatinineon 07-18-2022 Creatinine [Mass/Vol] 0.8 mg/dL Normal 0.5-1.3 [facility] Comment on above: Performed By: #### 2 625245, 8996151, 2317295, 3851679, 8785735, 92701794 ####[facility] [address] [place] [address] Glucoseon 07-18-2022 Glucose [Mass/Vol] 93 mg/dL Normal 55-199 [facility] Comment on above: Performed By: #### 2 762873, 7676518, 1749814, 0359741, 6144337, 26927612 ####[facility] [address] [place] [address] HEMATOLOGYOrdered By: Helen Chowdhury on 07-18-2022 Erythrocyte distribution width (RBC) [Ratio] 16.6 % High 10.9 - 14.2 % [facility] HemeAutoSS Hematocrit (Bld) [Volume fraction] 29.8 % Low 34.0 - 46.0 % [facility] HemeAutoSS Hemoglobin (Bld) [Mass/Vol] 9.5 g/dL Low 12.0 - 16.0 gm/dL [facility] HemeAutoSS MCH (RBC) [Entitic mass] 26.1 pg Low 27.0 - 34.0 pg [facility] HemeAutoSS MCHC (RBC) [Mass/Vol] 31.9 g/dL Normal 31.4 - 36.0 gm/dL [facility] HemeAutoSS MCV (RBC) [Entitic vol] 81.9 fL Normal 80.0 - 100.0 fL [facility]eAutoSS Platelet mean volume (Bld) [Entitic vol] 7.1 fL Normal 6.4 - 10.8 fL [facility] HemeAutoSS Platelets (Bld) [#/Vol] 249.0 E9/L Normal 150.0 - 500.0 E9/L [facility] HemeAutoSS RBC (Bld) [#/Vol] 3.6 E12/L Low 4.3 - 5.9 E12/L [facility] HemeAutoSS WBC corrected for nucl RBC Auto (Bld) [#/Vol] 5.0 E9/L Normal 4.0 - 11.0 E9/L [facility] HemeAutoSS Lyteson 07-18-2022 Anion gap [Moles/Vol] 9 mmol/L Normal 6-16 [facility] Comment on above: Performed By: #### 2 336138, 8362468, 6357519, 0515419, 9670928, 54534008 ####[facility] [address] [place] [address] Chloride [Moles/Vol] 101 mmol/L Normal 101-111 [facility] Comment on above: Performed By: #### 2 823602, 4853857, 9000904, 4444212, 9973643, 45339907 ####[facility] [address] [place] [address] CO2 [Moles/Vol] 30 mmol/L Normal 21-31 [facility] Comment on above: Performed By: #### 2 057855, 6897990, 6304807, 5032123, 5536882, 84969602 ####[facility] [address] [place] [address] Potassium [Moles/Vol] 3.7 mmol/L Normal 3.5-5.3 [facility] Comment on above: Performed By: #### 2 732661, 0937033, 5985161, 4260779, 4662023, 86210426 ####[facility] [address] [place] [address] Sodium [Moles/Vol] 136 mmol/L Normal 135-145 [facility] Comment on above: Performed By: #### 2 781957, 1925452, 6681156, 7003764, 6089874, 91214084 ####[facility] [address] [place] [address] XR Chest 2 Viewson 3 XR Chest [...] mGy = na DAP = na Normal [facility] eGFRon 07-18-2022 GFR/1.73 sq M.predicted among blacks MDRD (S/P/Bld) [Vol rate/Area] mL/min/{1.73_m2} Normal >=59 [facility] Comment on above: Order Comment: Order added by Discern Expert. Result Comment: eGFR is race adjusted. AA=. Performed By: #### 2 200604, 5718881, 4943827, 6586023, 3912892, 97524207 ####[facility] [address] [place] [address] GFR/1.73 sq M.predicted among non-blacks MDRD (S/P/Bld) [Vol rate/Area] mL/min/{1.73_m2} Normal >=59 [facility] Comment on above: Order Comment: Order added by Discern Expert. Result Comment: Parachute Repairer heidi kidney disease could be indicated at eGFR's of less than 60 mL/min/1.73m2. Kidney failure is indicated at less than 15 mL/min/1.73m2. Performed By: #### 2 [id number] ####[facility] [id number] [place] [address] Telephone Encounteron 2022 Master Planner Authentication Interface Message Text Patient called regarding a rash near her drain that is right by her breast. Gaudencio is triaging Ms. Victoria, Gaudencio has suggest for patient to go to Urgent care and or call her primary care doctor. Appt is Monday07/13/2022. Normal [facility] Telephone Encounteron 2022 Master Planner Authentication Interface Message Text Situation: Pt called states she is unsure how to flush gall bladder tube since it was changed yesterday. Background: 07/05/22 Procedure: Cholecystogram with catheter exchange Assessment: See triage Recommendation: Contacted IR learning and development consultant, Dr Hollis advised for pt to contact [...] No Protocols used: Post-Op Incision Symptoms and Hfvudubyb-X-IM Normal [facility] Master Planner Authentication Interface Message Text Sindy Ratliff Patient: Gerry Victoria [phone] Ms. Victoria has an appt Simran on 07/13/2022 at 2:45 pm. Pt complaining about severe pain last night, when she moved, it was an ache. She did not tell me where the pain was coming from, when I asked her. She stated that today she feels better, but she was concerned about the pain she experienced last night 07/05/2022. Normal [facility] RF Biliary ducts Views W con [...] successful exchange of drainage catheter. MACRO: [facility] observation (narrative) [facility] Telephone Encounteron 2022 Master Planner Authentication Interface Message Text Patient returned clinic call. Informed of message per notes below. Patient verbalized understanding and voiced no further questions. Normal [facility] Master Planner Authentication Interface Message Text would like Ms. [...] the appt date and time. Normal [facility] Office Visit (Cardiology)on 06-30-2022 Follow-up visit [...] mg as directed otc Retrieve echo from [facility] Follow up in 3 months The provider reviewed the following test(s) and result(s) with the patient: ECG Chief Complaint GERRY VICTORIA is being seen for a consultation for atrial flutter and palpitations. F/u heart cath done in [facility]. History of Present Illness Patient is here for cardiovascular evaluation following recent hospitalization for what appeared to be acute cholecystitis. Records were retrieved and reviewed. Patient presented to [facility] with symptoms of abdominal pain and was diagnosed with what appeared to be gallbladder disease and peritonitis. She was transferred to [facility] where she underwent work-up. Apparently a gallbladder [...] adjusted and she was switched from her usp atenolol to metoprolol and losartan. She reported [...] The patient to keep her appointment with [facility] surgery for upcoming procedure of cholecystectomy and gallbladder drainage removal 5. I advised the patient she can use some [id number] Claritin to address her what appeared to [...] 1 CA (more content not included)... Normal [employer] Tobacco Screening.on 023 Adult depression screening assessment No [facility] Services[facility] DO Work Phone: Fall risk assessment a) No falls within the last year [facility] Services[facility] DO Work Phone: Tobacco use status [facility] b) No -[facility] Services[facility] [address] DO Work Phone: Telephone Encounteron 2022 Master Planner Authentication Interface Message Text Pt called c/o sx of poor leg circulation,and Gaudencio spoke to her to triage the patient. Normal [facility] Addendum Noteon 06-18-2022 Master Planner Authentication Interface Message Text Addended by: NIKITA HEIN on: 06/18/2022 03:47 PM Modules accepted: Orders, Level of Service Normal [facility] Telephone Encounteron 2022 Master Planner Authentication Interface Message Text Sophy transferred phone call to me, when the patient and I started talk I realized it was the patient I had Sophy working on since Dr. Hein seen her in clinic on [facility]. Sophy said she spoke to patient yesterday, so I just told her what Sophy told me that Dr. Hein will handle the Rx to have the scan done out where she lives and that Sophy will get it to her in the mail by Monday Normal [facility] Telephone Encounteron 2022 Master Planner Authentication Interface Message Text Sindy Fernandoss, Patient: Gerry Victoria [phone] Ms. Victoria had a visit with Dr. Conley on Monday06/15/2022, seen by Dr. Hein in yesterday's clinic. Questions: Ultrasound order was placed for Ms. Victoria, do she have to come her to [facility] to have the ultrasound, or can she have the ultrasound done in [facility]? (there is not a [facility] in [facility]) Medication refill of Ropinirole 2mg 1-tab QD was not received by her pharmacy, can you call in the prescription to my pharmacy at ([facility] ) [phone]?. I am waiting for Carmen, or and or Dr. Conley to respond. Sophy Pt was told that Dr. Hein was out of town and that she will receive the prescription in the mail. I will call the patient to find out what hospitals she will be going to in [facility] [phone] fax:[phone] Gaudencio spoke to her about the prescription and to contact her pharmacy about the ropinirole 2 mg to [facility]. Addendum: IR procedure, Gaudencio will follow-up with [facility] to see if they can do the IR procedure, we will submit or fax orders at that time. Normal [facility] CBC panel Auto (Bld)on 06-15 Erythrocyte [...] (RBC) [Ratio] 15.0 % High 11.5-14.[address] [facility] Comment on above: Performed By: #### 8 2948 #### NURSING GLUCOSE PROGRAM [address] [place], [address] Hematocrit (Bld) [Volume fraction] 26.4 % Low 36.0-46.[address] [facility] Comment on above: Performed By: #### 8 2948 #### NURSING GLUCOSE PROGRAM [address] [place], [address] Hemoglobin (Bld) [Mass/Vol] 9.0 g/dL Low 12.0-15.0 [facility] Comment on above: Performed By: #### 8 2948 #### NURSING GLUCOSE PROGRAM [address] [place], [address] MCH (RBC) [Entitic mass] 27.6 pg Normal 26.0-34.[address] [facility] Comment on above: Performed By: #### 8 2948 #### NURSING GLUCOSE PROGRAM [address] [place], [address] MCHC (RBC) [Mass/Vol] 34.1 g/dL Normal 32.0-35.[address] [facility] Comment on above: Performed By: #### 8 2948 #### NURSING GLUCOSE PROGRAM [address] [place], [address] MCV (RBC) [Entitic vol] 81 fL Normal 80-[address] [facility] Comment on above: Performed By: #### 8 2948 #### NURSING GLUCOSE PROGRAM [address] [place], [address] Platelet mean volume (Bld) [Entitic vol] 7.8 fL Normal 7.5-11.[address] [facility] [facility] Comment on above: Performed By: #### 8 2948 #### NURSING GLUCOSE PROGRAM [address] [place], [address] Platelets (Bld) [#/Vol] 262 10*3/uL Normal 150-[address] [facility] [facility] Comment on above: Performed By: #### 8 2948 #### NURSING GLUCOSE PROGRAM [address] [place], [address] RBC (Bld) [#/Vol] 3.26 10*6/uL Low 4.00-5.[address] [facility] Comment on above: Performed By: #### 8 2948 #### NURSING GLUCOSE PROGRAM [address] [place], [address] WBC (Bld) [#/Vol] 6.2 10*3/uL Normal 4.5-11.[address] [facility] Comment on above: Performed By: #### 8 2948 #### NURSING GLUCOSE PROGRAM [address] [place], [address] PROTHROMBIN TIME AND INRon 0 - INR Coag (PPP) [Relative time] 1.08 {INR} Normal 0.90-1.[address] [facility] Comment on above: Performed By: #### 8 2948 #### NURSING GLUCOSE PROGRAM [address] [place], [address] PT Coag (PPP) [Time] 12.2 s Normal 9.7-12.9 [facility] Comment on above: Performed By: #### 8 2948 #### NURSING GLUCOSE PROGRAM [address] [place], [address] INR Coag (PPP) [Relative time] 1.08 {INR} 0.90 - 1.10 [facility] Interpretation and review of laboratory results Normal [facility] PT Coag (PPP) [Time] 12.2 s [facility] Telephone Encounteron 2022 Master Planner Authentication Interface Message Text Situation: pt is [...] Not assessed Protocols used: Post-Op Symptoms and Rvdfieoqi-I-IL, Breathing Btpsxzthud-L-UX Normal [facility] BASIC METABOLIC PANELon 03-0 Anion gap [Moles/Vol] 15 mmol/L Normal 10-20 [facility] Comment on above: Performed By: #### C H8, HEPATIC #### [facility] [address] [place] [address], Calcium [Mass/Vol] 8.4 mg/dL Normal 8.4-10.[address] [facility] Comment on above: Performed By: #### C H8, HEPATIC #### [facility] [address] [place] [address], Chloride [Moles/Vol] 100 mmol/L Normal 97-[address] [facility] Comment on above: Performed By: #### C H8, HEPATIC #### [facility] [address] [place] [address], CO2 [Moles/Vol] 27 mmol/L Normal 21-[address] [facility] Comment on above: Performed By: #### C H8, HEPATIC #### [facility] [address] [place] [address], Creatinine [Mass/Vol] 0.76 mg/dL Normal 0.50-1.10 [facility] Comment on above: Performed By: #### C H8, HEPATIC #### [facility] [address] [place] [address], ESTIMATED GFR (CKD-EPI) 85 mL/min/1.73sqm Normal >=60 [...] Inclusion of Race in Diagnosing Kidney Disease. [place] Journal of Kidney Diseases 2021;79(2):268-88.e1. 2. N Engl J Med 1 Vol. 385 Issue 19 Pages 1245-8687 Performed By: #### C H8, HEPATIC #### [facility] [address] [place] [address], Glucose [Mass/Vol] 94 mg/dL Normal 80-116 [facility] Comment on above: Performed By: #### C H8, HEPATIC #### [facility] [address] [place] [address], Potassium [Moles/Vol] 3.5 mmol/L Normal 3.3-5.[address] [facility] Comment on above: Performed By: #### C H8, HEPATIC #### [facility] [address] [place] [address], Sodium [Moles/Vol] 138 mmol/L Normal 135-[address] [facility] [facility] Comment on above: Performed By: #### C H8, HEPATIC #### [facility] [address] [place] [address], Urea nitrogen [Mass/Vol] 6 mg/dL Low 8-[address] [facility] [facility] Comment on above: Performed By: #### C H8, HEPATIC #### [facility] [address] [place] [address], COMPLETE BLOOD COUNTon 05-25 Erythrocyte distribution width (RBC) [Ratio] 15.2 % High 11.5-14.[address] [facility] Comment on above: Performed By: #### Meenu Trammell8, HEPATIC #### [facility] [address] [place] [address], Hematocrit (Bld) [Volume fraction] 34.5 % Low 36.0-46.[address] [facility] Comment on above: Performed By: #### Meenu Mccormick, HEPATIC #### [facility] [address] [place] [address], Hemoglobin (Bld) [Mass/Vol] 12.0 g/dL Normal 12.0-15.0 [facility] Comment on above: Performed By: #### Meenu Mccormick, HEPATIC #### S PATHOLOGY LABORATORY [address] [place] [address], MCH (RBC) [Entitic mass] 28.6 pg Normal 26.0-34.[address] [facility] Comment on above: Performed By: #### Meenu Mccormick, HEPATIC #### [facility] [address] [place] [address], MCHC (RBC) [Mass/Vol] 34.8 g/dL Normal 32.0-35.[address] [facility] Comment on above: Performed By: #### Meenu Mccormick, HEPATIC #### [facility] [address] [place] [address], MCV (RBC) [Entitic vol] 82 fL Normal 80-[address] [facility] Comment on above: Performed By: #### Meenu Mccormick, HEPATIC #### [facility] [address] [place] [address], Platelet mean volume (Bld) [Entitic vol] 7.7 fL Normal 7.5-11.[address] [facility] Comment on above: Performed By: #### Meenu Mccormick, HEPATIC #### S PATHOLOGY LABORATORY [address] [place] [address], Platelets (Bld) [#/Vol] 348 10*3/uL Normal 150-[address] [facility] Comment on above: Performed By: #### Meenu Mccormick, HEPATIC #### [facility] [address] [place], [place], RBC (Bld) [#/Vol] 4.19 10*6/uL Normal 4.00-5.20 [facility] Comment on above: Performed By: #### C H8, HEPATIC #### [facility] [address] [place], [place], WBC (Bld) [#/Vol] 8.7 10*3/uL Normal 4.5-11.5 [facility] Comment on above: Performed By: #### C H8, HEPATIC #### [facility] [address] [place], [place], Care Plan Noteon 05-25-2022 Master Planner Authentication Interface Message Text Problem: Routine Care: [...] Glucose [Mass/Vol] 77 mg/dL Low 80-116 [facility] Comment on above: Performed By: #### C H8, HEPATIC #### [facility] [address] [place], [place], Glucose [Mass/Vol] 92 mg/dL Normal 80-116 [facility] Comment on above: Performed By: #### 8 2948 #### NURSING GLUCOSE PROGRAM [address] [place], [address] Glucose [Mass/Vol] 93 mg/dL Normal 80-116 [facility] Comment on above: Performed By: #### C H8, HEPATIC #### [facility] [address] [place], [place], MAGNESIUMon 05-25-2022 Magnesium [Mass/Vol] 2.0 mg/dL Normal 1.6-2.8 [facility] Comment on above: Performed By: #### C H8, HEPATIC #### [facility] [address] [place], [place], Progress Noteson 05-25-2022 Master Planner Authentication Interface Message Text Pt is rec to dc home with no homegoing needs. Pt reportedly has sister who can provide PRN assistance. Medical team to please notify SW if any SW or DC concerns arise. 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 No further questions at this time, will; reinforce in the AM. 0630 Pt flushed and emptied drain w/ RN supervision. No further questions at this time, written instructions for both provided to pt. Normal [facility] BASIC METABOLIC PANELon 02-2 Anion gap [Moles/Vol] 18 mmol/L Normal 10-20 [facility] Comment on above: Performed By: #### H STRP #### [facility] [address] [place], [place], Calcium [Mass/Vol] 8.6 mg/dL Normal 8.4-10.4 [facility] Comment on above: Performed By: #### H STRP #### [facility] [address] [place], [place], Chloride [Moles/Vol] 100 mmol/L Normal 97-111 [facility] Comment on above: Performed By: #### H STRP #### [facility] [address] [place], [place], CO2 [Moles/Vol] 24 mmol/L Normal 21-30 [facility] Comment on above: Performed By: #### H STRP #### S PATHOLOGY LABORATORY [address] [place] [address], Creatinine [Mass/Vol] 0.66 mg/dL Normal 0.50-1.10 [facility] Comment on above: Performed By: #### H STRP #### S PATHOLOGY LABORATORY [address] [place] [address], ESTIMATED GFR (CKD-EPI) 95 mL/min/1.73sqm Normal >=60 [facility] Comment [...] Inclusion of Race in Diagnosing Kidney Disease. [place] Journal of Kidney Diseases 2021;79(2):268-88.e1. 2. N Engl J Med 1 Vol. 385 Issue 19 Pages 3313-9793 Performed By: #### H STRP #### S PATHOLOGY LABORATORY [address] [place], [place], Glucose [Mass/Vol] 88 mg/dL Normal 80-[address] [facility] [facility] Comment on above: Performed By: #### H STRP #### [facility] [address] [place] [address], Potassium [Moles/Vol] 3.5 mmol/L Normal 3.3-5.3 [facility] Comment on above: Performed By: #### H STRP #### [facility] [address] [place] [address], Sodium [Moles/Vol] 138 mmol/L Normal 135-[address] [facility] [facility] Comment on above: Performed By: #### H STRP #### S [facility]Y LABORATORY [address] [place] [address], Urea nitrogen [Mass/Vol] 5 mg/dL Low 8-22 [facility] Comment on above: Performed By: #### H STRP #### [facility] [address] [place] [address], COMPLETE BLOOD COUNTon 05-24 Erythrocyte distribution width (RBC) [Ratio] 15.1 % High 11.5-14.5 [facility] Comment on above: Performed By: #### C BC ####[facility] PATH[facility] [id number] [place], [place], Hematocrit (Bld) [Volume fraction] 35.5 % Low 36.0-46.0 [facility] Comment on above: Performed By: #### C BC ####[facility] PATH[facility]Y [id number] [place] [address], Hemoglobin (Bld) [Mass/Vol] 11.8 g/dL Low 12.0-15.0 [facility] Comment on above: Performed By: #### C BC ####[facility] [id number] [place] [address], MCH (RBC) [Entitic mass] 27.2 pg Normal 26.0-34.0 [facility] Comment on above: Performed By: #### C BC ####[facility] PATH[facility] [id number] [place] [address], MCHC (RBC) [Mass/Vol] 33.2 g/dL Normal 32.0-35.9 [facility] Comment on above: Performed By: #### C BC ####[facility] [id number] [place] [address], MCV (RBC) [Entitic vol] 82 fL Normal 80-100 [facility] Comment on above: Performed By: #### C BC ####[facility] PATH[facility] [id number] [place] [address], Platelet mean volume (Bld) [Entitic vol] 7.6 fL Normal 7.5-11.2 [facility] Comment on above: Performed By: #### C BC ####[facility] PATH[facility] [id number] [place] [address], Platelets (Bld) [#/Vol] 375 10*3/uL Normal 150-400 [facility] Comment on above: Performed By: #### C BC ####S PATHOLOGY [id number] [place], [place], RBC (Bld) [#/Vol] 4.32 10*6/uL Normal 4.00-5.20 [facility] Comment on above: Performed By: #### C BC ####[facility] [id number] [place], [place], WBC (Bld) [#/Vol] 9.0 10*3/uL Normal 4.5-11.5 [facility] Comment on above: Performed By: #### C BC ####[facility] [id number] [place], [place], Care Plan Noteon 05-24-2022 Master Planner Authentication Interface Message Text Problem: Routine Care: [...] demand and imbalance Outcome: Progressing Normal [facility] GLUCOSE, FINGERSTICK-IN OFFI CEon 05-24-2022 Glucose [Mass/Vol] 94 mg/dL Normal 80-[address] [facility] Comment on above: Performed By: #### 8 2948 ####NURSING GLUCOSE [id number] [place], [address] Glucose [Mass/Vol] 76 mg/dL Low 80-[address] [facility] Comment on above: Performed By: #### H STRP #### [facility] [address] [place], [place], Glucose [Mass/Vol] 84 mg/dL Normal 80-116 [facility] Comment on above: Performed By: #### 8 2948 #### NURSING GLUCOSE PROGRAM [address] [place], [address] Glucose [Mass/Vol] 95 mg/dL Normal 80-116 [facility] Comment on above: Performed By: #### C H8, HEPATIC #### [facility] [address] [place], [place], Glucose [Mass/Vol] 93 mg/dL Normal 80-116 [facility] Comment on above: Performed By: #### C H8, HEPATIC #### [facility] [address] [place], [place], Glucose [Mass/Vol] 97 mg/dL Normal 80-[address] [facility] Comment on above: Performed By: #### H STRP #### [facility] [address] [place], [place], MAGNESIUMon 05-24-2022 Magnesium [Mass/Vol] 1.9 mg/dL Normal 1.6-2.8 [facility] Comment on above: Performed By: #### H STRP #### [facility] [address] [place], [place], Progress Noteson 05-24-2022 Master Planner Authentication Interface Message Text [facility] DIVISION OF ACUTE CARE SURGERY ---- GENERAL INFORMATION --- EMERGENCY GENERAL SURGERY NOTE Patient Name: Gerry Victoria Admission Date: 05/16/2022 Patient seen and examined on 05/24/2022 -- INTERVAL HISTORY/EVENTS Background Narrative: Gerry Victoria is a 66 year old female with PMH of hypertension, RLS, GERD, and h/o paroxysmal SVT who presented to [facility] with epigastric pain with nausea and vomiting. Patient describes onset of pain on prior day that has increased since then. Shortly after onset of pain, patient experienced nausea and persistent vomiting, now unable to tolerate PO intake. Denies fevers, chills. She presented to [facility] where EKG demonstrated 'hyperacute T waves' in multiple leads without evidence of STEMI. Troponin originally 139, then 381 on repeat. CTA was performed and did not reveal dissection or PE. CT did demonstrate acute inflammation of the gallbladder with a stone at the neck. A central line was placed for resuscitation purposes and the patient was transferred to [facility] for further evaluation. Prior to transfer, lab work without leukocytosis (10.7) and LFTs/Lipase without abnormality. ACS consulted upon arrival to [facility] for cholecystitis. She was admitted to the SDU for telemetry under EGS but transferred to [facility] on 05/20/22 Hospital Course/Procedures: 05/16/2022: Transferred from [facility] ED with cholecystitis, up-trending troponin, and unclear EKG findings. Up-trending leukocytosis, down-trending troponin by PM. Cardiology following. Zosyn started. 05/17/2022: rCT with worsening gallbladder inflammation /o free air or rupture. Percutaneous cholecystotomy tube placement with IR. 05/19/2022: Bilious emesis, NGT placed 05/20/2022: Transferred to [facility] 05/21/2022:To stop zosyn today day 06/2805/22/2022: YANN, ongoing bilious NGT output 05/23/2022: [facility] with mild non-obstructive diffuse coronary artery disease. NGT placed to gravity. Events in last 24 hours: NAEOn. [facility] completed yesterday with mild non-obstructive diffuse coronary [...] Acute Cholecystitis Acute abdominal pain Type II [place] Atypical takatsubo PMHx: GERD, HTN, HLD, spinal [...] f (more content not included)... 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 1900- 0730: 2000- glucose 95 0000- glucose 97 0400- glucose 93 Normal [facility] BASIC METABOLIC PANELon 04-28 Anion gap [Moles/Vol] 12 mmol/L Normal 10-20 [facility] Comment on above: Performed By: #### H STRP #### [facility] [address] [place] [address], Calcium [Mass/Vol] 8.4 mg/dL Normal 8.4-10.4 [facility] Comment on above: Performed By: #### H STRP #### [facility] [address] [place] [address], Chloride [Moles/Vol] 100 mmol/L Normal 97-111 [facility] Comment on above: Performed By: #### H STRP #### [facility] [address] [place], [place], CO2 [Moles/Vol] 31 mmol/L High 21-[address] [facility] Comment on above: Performed By: #### H STRP #### [facility] [address] [place], [place], Creatinine [Mass/Vol] 0.65 mg/dL Normal 0.50-1.10 [facility] Comment on above: Performed By: #### H STRP #### S PATHOLOGY LABORATORY [address] [place] [address], ESTIMATED GFR (CKD-EPI) 96 mL/min/1.73sqm Normal >=[address] [facility] Comment on above: Result Comment: 2020 [...] Inclusion of Race in Diagnosing Kidney Disease. [place] Journal of Kidney Diseases 2021;79(2):268-88.e1. 2. N Engl J Med 1 Vol. 385 Issue 19 Pages 7687-5448 Performed By: #### H STRP #### [facility] [address] [place], [place], Glucose [Mass/Vol] 92 mg/dL Normal 80-[address] [facility] [facility] Comment on above: Performed By: #### H STRP #### [facility] [address] [place], [place], Potassium [Moles/Vol] 3.5 mmol/L Normal 3.3-5.3 [facility] Comment on above: Performed By: #### H STRP #### S PATHOLOGY LABORATORY [address] [place], [place], Sodium [Moles/Vol] 139 mmol/L Normal 135-148 [facility] Comment on above: Performed By: #### H STRP #### S PATHOLOGY LABORATORY [address] [place], [place], Urea nitrogen [Mass/Vol] 4 mg/dL Low 8-22 [facility] Comment on above: Performed By: #### H STRP #### S PATHOLOGY LABORATORY [address] [place], [place], COMPLETE BLOOD COUNTon 05-23 Erythrocyte distribution width (RBC) [Ratio] 14.9 % High 11.5-14.5 [facility] Comment on above: Performed By: #### C BC ####[facility] [id number] [place], [place], Hematocrit (Bld) [Volume fraction] 33.2 % Low 36.0-46.0 [facility] Comment on above: Performed By: #### C BC ####[facility] [id number] [place], [place], Hemoglobin (Bld) [Mass/Vol] 11.1 g/dL Low 12.0-15.0 [facility] Comment on above: Performed By: #### C BC ####[facility] PATH[facility] [id number] [place], [place], MCH (RBC) [Entitic mass] 27.4 pg Normal 26.0-34.0 [facility] Comment on above: Performed By: #### C BC ####[facility] PATH[facility] [id number] [place], MCHC (RBC) [Mass/Vol] 33.4 g/dL Normal 32.0-35.9 [facility] Comment on above: Performed By: #### C BC ####[facility] PATHOLOG[facility] [id number] [place], MCV (RBC) [Entitic vol] 82 fL Normal 80-[address] [facility] Comment on above: Performed By: #### C BC ####S PATHOLOGY [id number] [place], [place], Platelet mean volume (Bld) [Entitic vol] 7.4 fL Low 7.5-11.[address] [facility] Comment on above: Performed By: #### C BC ####S PATHOLOGY [id number] [place], [place], Platelets (Bld) [#/Vol] 313 10*3/uL Normal 150-[address] [facility] Comment on above: Performed By: #### C BC ####[facility] PATH[facility] [id number] [place], [place], RBC (Bld) [#/Vol] 4.04 10*6/uL Normal 4.00-5.[address] [facility] Comment on above: Performed By: #### C BC ####[facility] PATH[facility] [id number] [place], [place], WBC (Bld) [#/Vol] 7.1 10*3/uL Normal 4.5-11.[address] [facility] Comment on above: Performed By: #### C BC ####[facility] PATH[facility] [id number] [place], [place], Care Plan Noteon 05-23-2022 Master Planner Authentication Interface Message Text Problem: Routine Care: [...] demand and imbalance Outcome: Progressing Normal [facility] Consultson 05-23-2022 Master Planner Authentication Interface Message Text PHYSICAL THERAPY Attempt at Tx Session this PM is unsuccessful as Patient is off floor in EP for Coronary angiograms w/ poss intervention Will follow up Tawny Peñaloza, PT, MPT (B) [phone] Normal [facility] Master Planner Authentication Interface Message Text Initial Adult Inpatient [...] 98 31 13 91 5 0.76 8.7 05/21/224 1.9 05/21/22123 138 3.2 100 29 12 107 4 0.65 8.1 CBC (last 3 years, up to 5 values) (Last 5 results in the past 3 years) WBC RBC Hgb Hct MCV RDW Plt 05/23/226 7.1 4.04 11.1 33.2 82 14.9 313 [...] none Hair/Nails/Skin: intact Eyes/Nose/Mouth: NGT Estimated needs: 8685-9027 kcal/d 25-30 kcal/kg 80-105 g pro/d 1-1.3 g pro/kg Assessment: 66 year old female with PMH of hypertension, RLS, GERD, and h/o paroxysmal SVT who presented to [facility] with epigastric pain with nausea and vomiting. Patient describes onset of pain on prior day that has increased since then. Shortly after onset of pain, patient experienced nausea and persistent vomiting, now unable to tolerate PO intake. Denies fevers, chills. She presented to [facility] where EKG demonstrated 'hyperacute T waves' in multiple leads without evidence of STEMI. Troponin originally 139, then 381 on repeat. CTA was performed and did not reveal dissection or PE. CT did demonstrate acute inflammation of the gallbladder with a stone at the neck. A central line was placed for resuscitation purposes and the patient was transferred to [facility] for further evaluation. Prior to transfer, lab work without leukocytosis (10.7) and LFTs/Lipase without abnormality. ACS consulted upon arrival to [facility] for cholecystitis. She was admitted to the SDU for telemetry under EGS but transferred to [facility] on 05/20/22 Hospital Course/Procedures: 05/16/2022: Transferred from [facility] ED with cholecystitis, up-trending troponin, and unclear EKG findings. Up-trending leukocytosis, down-trending troponin by PM. Cardiology following. Zosyn started. 05/17/2022: rCT with worsening gallbladder inflammation /o free air or rupture. Percutaneous cholecystotomy tube placement with IR. 05/19/2022: Bilious emesis, NGT placed 05/20/2022: Transferred to [facility] 05/21/2022:To stop zosyn today day / Pt currently NPO. Last BM 05/21, last [...] prot Will continue to follow Luis Roberts RDCLAUDIO Personal Pager [phone] Photograph Developer Pager: [phone] Normal [facility] Master Planner Authentication Interface Message Text Diet Marketing Research Analyst Nutrition Screening Reason for visit: 7 to [...] to RD. Will continue to follow, May Sanchez Diet Marketing Research Analyst Pager [phone] Normal [facility] GLUCOSE, FINGERSTICK-IN OFFI CEon 05-23-2022 Glucose [Mass/Vol] 95 mg/dL Normal 80-116 [facility] Comment on above: Performed By: #### H STRP #### [facility] [address] [place] [address], [phone] Glucose [Mass/Vol] 102 mg/dL Normal 80-116 [facility] Comment on above: Performed By: #### C H8, HEPATIC #### [facility] [address] [place], [address] Glucose [Mass/Vol] 105 mg/dL Normal 80-116 [facility] Comment on above: Performed By: #### 8 2948 #### NURSING GLUCOSE PROGRAM [address] [place], [address] Glucose [Mass/Vol] 89 mg/dL Normal 80-116 [facility] Comment on above: Performed By: #### H STRP #### [facility] [address] [place], [place], Glucose [Mass/Vol] 92 mg/dL Normal 80-116 [facility] Comment on above: Performed By: #### 8 2948 #### NURSING GLUCOSE PROGRAM [address] [place], [address] MAGNESIUMon 05-23-2022 Magnesium [Mass/Vol] 1.9 mg/dL Normal 1.6-2.[address] [facility] Comment on above: Performed By: #### H STRP #### [facility] [address], [place], Procedureson 05-23-2022 Master Planner Authentication Interface Message Text Invasive Cardiology Report Demographics Patient name RYLIE GARRETT Height 155cm Patient # [id number] Weight 79.8kg BSA 1.79m2 Date of 1955 [...] KIT CARDIAC CATH PACK CA/3, Room Charge DUPLICATE MAKER, [facility] InQwire .035 x 150cm 3mmJ, Glidesheath Slender 6Fr., 6F Kegley Radial 4.0 110cm, Omnipaque 350 100cc and TR Band. Contrast material: 50 ml Omnipaque 350. Fluoroscopy time: PCI: 2:06 minutes. Total: 2:06 minutes. IABP: No IABP Procedure Description In a sterile fashion, after infiltration with 2% lidocaine, a 6 Japanese arterial sheath was placed through a right radial artery puncture. A 6 Japanese Kegley 4.0 radial catheter was inserted and passed retrograde into the ascending aorta and left ventricle where pressures were recorded. After pressure measurements were recorded, the left and right coronary arteries were selectively opacified and Coronary angiograms were performed in multiple projections using a 6 Japanese Kegley 4.0 radial catheter. At the end of the procedure, right radial arterial sheath was removed and hemostasis was obtained using a TR band. Moderate sedation provided by the attending physician performing the procedure. The moderate sedation intraservice time was 12 minutes. Normal [facility] Progress Noteson 05-23-2022 Master Planner Authentication Interface Message Text C showed no obstructive coronary artery disease. Medical management with aspirin 81 mg daily, losartan 25 mg daily and metoprolol XL 12.5 mg with dose adjustment as tolerated. She will need outpatient follow up with cardiology Cards team signing off. Please feel free to contact in case of any qs. Normal [facility] Master Planner Authentication Interface Message Text PT recs anticipate pt to be appropriate for home-going. Pt reportedly has sister who can provide PRN assistance. Medical team to please notify SW if any SW or DC concerns arise. Franky BATEMAN,CONFIDENTIAL INVESTIGATOR Normal [facility] Interface Message Text [facility] DIVISION OF ACUTE CARE SURGERY ---- GENERAL INFORMATION --- EMERGENCY GENERAL SURGERY NOTE Patient Name: Gerry Victoria Admission Date: 05/16/2022 Patient seen and examined on 05/23/2022 -- INTERVAL HISTORY/EVENTS Background Narrative: Gerry Victoria is a 66 year old female with PMH of hypertension, RLS, GERD, and h/o paroxysmal SVT who presented to [facility] with epigastric pain with nausea and vomiting. Patient describes onset of pain on prior day that has increased since then. Shortly after onset of pain, patient experienced nausea and persistent vomiting, now unable to tolerate PO intake. Denies fevers, chills. She presented to [facility] where EKG demonstrated 'hyperacute T waves' in multiple leads without evidence of STEMI. Troponin originally 139, then 381 on repeat. CTA was performed and did not reveal dissection or PE. CT did demonstrate acute inflammation of the gallbladder with a stone at the neck. A central line was placed for resuscitation purposes and the patient was transferred to [facility] for further evaluation. Prior to transfer, lab work without leukocytosis (10.7) and LFTs/Lipase without abnormality. ACS consulted upon arrival to [facility] for cholecystitis. She was admitted to the SDU for telemetry under EGS but transferred to [facility] on 05/20/22 Hospital Course/Procedures: 05/16/2022: Transferred from [facility] ED with cholecystitis, up-trending troponin, and unclear EKG findings. Up-trending leukocytosis, down-trending troponin by PM. Cardiology following. Zosyn started. 05/17/2022: rCT with worsening gallbladder inflammation /o free air or rupture. Percutaneous cholecystotomy tube placement with IR. 05/19/2022: Bilious emesis, NGT placed 05/20/2022: Transferred to [facility] 05/21/2022:To stop zosyn today day 4/4 [...] Seen resting in bed in SICU in [facility]- I J line in place -Neurologic [...] Acute Cholecystitis Acute abdominal pain Type II KS Atypical takatsubo PMHx: GERD, HTN, HLD, spinal [...] appropr (more content not included)... Normal [facility] TYPE AND SCREENon 05-23-2022 ABO and Rh group Nom (Bld) Blood group A Rh(D) positive Normal [facility] Comment on above: Performed By: #### H STRP #### [facility] [address] [place] [address], ABSC INT Negative Normal [facility] Comment on above: Performed By: #### H STRP #### [facility] [address] [place] [address], BASIC METABOLIC PANELon 04-28 Anion gap [Moles/Vol] 13 mmol/L Normal 10-20 [facility] Comment on above: Performed By: #### 8 2948 #### NURSING GLUCOSE PROGRAM [address] [place] [address], [address] Calcium [Mass/Vol] 8.7 mg/dL Normal 8.4-10.4 [facility] Comment on above: Performed By: #### 8 2948 #### NURSING GLUCOSE PROGRAM [address] [place] [address], [address] Chloride [Moles/Vol] 98 mmol/L Normal 97-111 [facility] Comment on above: Performed By: #### 8 2948 #### NURSING GLUCOSE PROGRAM [address] [place] [address], [address] CO2 [Moles/Vol] 31 mmol/L High 21-30 [facility] Comment on above: Performed By: #### 8 2948 #### NURSING GLUCOSE PROGRAM [address] [place] [address], [address] Creatinine [Mass/Vol] 0.76 mg/dL Normal 0.50-1.10 [facility] Comment on above: Performed By: #### 8 2948 #### NURSING GLUCOSE PROGRAM [address] [place] [address], [address] ESTIMATED GFR (CKD-EPI) 85 mL/min/1.73sqm Normal >=[address] [facility] Comment on above: Result Comment: 2020 [...] Inclusion of Race in Diagnosing Kidney Disease. [place] Journal of Kidney Diseases 202;79(2):268-88.e1. 2. N Engl J Med 1 Vol. 385 Issue 19 Pages 5431-8744 Performed By: #### 8 2948 #### NURSING GLUCOSE PROGRAM [address] [place], [address] Glucose [Mass/Vol] 91 mg/dL Normal 80-[address] [facility] Comment on above: Performed By: #### 8 2948 #### NURSING GLUCOSE PROGRAM [address] [place], [address] Potassium [Moles/Vol] 3.6 mmol/L Normal 3.3-5.3 [facility] Comment on above: Performed By: #### 8 2948 #### NURSING GLUCOSE PROGRAM [address] [place], [address] Sodium [Moles/Vol] 138 mmol/L Normal 135-148 [facility] Comment on above: Performed By: #### 8 2948 #### NURSING GLUCOSE PROGRAM [address] [place], [address] Urea nitrogen [Mass/Vol] 5 mg/dL Low 8-22 [facility] Comment on above: Performed By: #### 8 2948 #### NURSING GLUCOSE PROGRAM [address] [place], [address] COMPLETE BLOOD COUNTon 05-22 Erythrocyte distribution width (RBC) [Ratio] 15.1 % High 11.5-14.[address] [facility] Comment on above: Performed By: #### C BC ####[facility] [id number] [place], [address] Hematocrit (Bld) [Volume fraction] 34.3 % Low 36.0-46.0 [facility] Comment on above: Performed By: #### C BC ####[facility] [id number] [place], [place], Hemoglobin (Bld) [Mass/Vol] 11.4 g/dL Low 12.0-15.0 [facility] Comment on above: Performed By: #### C BC ####[facility] [id number] [place], [place], MCH (RBC) [Entitic mass] 27.4 pg Normal 26.0-34.0 [facility] Comment on above: Performed By: #### C BC ####[facility] PATHOLOGY [id number] [place], [place], MCHC (RBC) [Mass/Vol] 33.4 g/dL Normal 32.0-35.9 [facility] Comment on above: Performed By: #### C BC ####[facility] PATHOLOGY [id number] [place] [address], MCV (RBC) [Entitic vol] 82 fL Normal 80-100 [facility] Comment on above: Performed By: #### C BC ####[facility] [id number] [place], [place], Platelet mean volume (Bld) [Entitic vol] 7.6 fL Normal 7.5-11.2 [facility] Comment on above: Performed By: #### C BC ####[facility] PATH[facility] [id number] [place], [place], Platelets (Bld) [#/Vol] 322 10*3/uL Normal 150-400 [facility] Comment on above: Performed By: #### C BC ####[facility] PATH[facility] [id number] [place], [place], RBC (Bld) [#/Vol] 4.17 10*6/uL Normal 4.00-5.20 [facility] Comment on above: Performed By: #### C BC ####[facility] [id number] [place], [place], WBC (Bld) [#/Vol] 7.0 10*3/uL Normal 4.5-11.5 [facility] Comment on above: Performed By: #### C BC ####S PATHOLOGY [id number] [place], [address] Care Plan Noteon 05-22-2022 Master Planner Authentication Interface Message Text Problem: Routine Care: [...] demand and imbalance Outcome: Progressing Normal [facility] GLUCOSE, FINGERSTICK-IN OFFI CEon 05-22-2022 Glucose [Mass/Vol] 78 mg/dL Low 80-116 [facility] Comment on above: Performed By: #### 8 2948 #### NURSING GLUCOSE PROGRAM [address] [place], [address] Glucose [Mass/Vol] 99 mg/dL Normal 80-116 [facility] Comment on above: Performed By: #### 8 2948 #### NURSING GLUCOSE PROGRAM [address] [place], [address] Glucose [Mass/Vol] 134 mg/dL High 80-116 [facility] Comment on above: Performed By: #### 8 2940 #### NURSING GLUCOSE PROGRAM [address] [place], [address] Glucose [Mass/Vol] 111 mg/dL Normal 80-116 [facility] Comment on above: Performed By: #### Reid Grullon CH8 #### [facility] [address] [place], [place], Glucose [Mass/Vol] 103 mg/dL Normal 80-116 [facility] Comment on above: Performed By: #### Meenu H8, HEPATIC #### [facility] [address] [place], [place], Glucose [Mass/Vol] 112 mg/dL Normal 80-116 [facility] Comment on above: Performed By: #### Meenu Trammell8, HEPATIC #### [facility] [address] [place], [place], MAGNESIUMon 05-22-2022 Magnesium [Mass/Vol] 2.0 mg/dL Normal 1.6-2.8 [facility] Comment on above: Performed By: #### 8 2948 #### NURSING GLUCOSE PROGRAM [address] [place], [address] Progress Noteson 05-22-2022 Master Planner Authentication Interface Message Text [facility] DIVISION OF ACUTE CARE SURGERY ---- GENERAL INFORMATION --- EMERGENCY GENERAL SURGERY NOTE Patient Name: Gerry Victoria Admission Date: 05/16/2022 Patient seen and examined on 05/22/2022 -- INTERVAL HISTORY/EVENTS Background Narrative: Gerry Victoria is a 66 year old female with PMH of hypertension, RLS, GERD, and h/o paroxysmal SVT who presented to [facility] with epigastric pain with nausea and vomiting. Patient describes onset of pain on prior day that has increased since then. Shortly after onset of pain, patient experienced nausea and persistent vomiting, now unable to tolerate PO intake. Denies fevers, chills. She presented to [facility] where EKG demonstrated 'hyperacute T waves' in multiple leads without evidence of STEMI. Troponin originally 139, then 381 on repeat. CTA was performed and did not reveal dissection or PE. CT did demonstrate acute inflammation of the gallbladder with a stone at the neck. A central line was placed for resuscitation purposes and the patient was transferred to [facility] for further evaluation. Prior to transfer, lab work without leukocytosis (10.7) and LFTs/Lipase without abnormality. ACS consulted upon arrival to [facility] for cholecystitis. She was admitted to the SDU for telemetry under EGS but transferred to [facility] on 05/20/22 Hospital Course/Procedures: 05/16/2022: Transferred from [facility] ED with cholecystitis, up-trending troponin, and unclear EKG findings. Up-trending leukocytosis, down-trending troponin by PM. Cardiology following. Zosyn started. 05/17/2022: rCT with worsening gallbladder inflammation /o free air or rupture. Percutaneous cholecystotomy tube placement with IR. 05/19/2022: Bilious emesis, NGT placed 05/20/2022: Transferred to [facility] 05/21/2022:To stop zosyn today day 06/28 [...] Seen resting in bed in SICU in [facility]- I J line in place -Neurologic [...] Acute Cholecystitis Acute abdominal pain Type II KS Atypical takatsubo PMHx: GERD, HTN, HLD, spinal [...] P (more content not included)... Normal [facility] Master Planner Authentication Interface Message Text 05/22/2022 4:04 PM Referring Attending: Dr Jocelyne Victoria [id number] Planned Procedure: Coronary angiograms w/ poss intervention Procedure Indication: Suspected CAD CV Risk Factors: Hypertension: Yes History of Present Illness: 66 year old female with history of hypertension, recent diagnosis of type II KS, atypical takotsubo, acute cholecystitis s/p percutaneous cholecystostomy drain placement is referred for [facility] for CAD risk stratification and preparation for [...] Types: Cigarettes Quit date: 2009 Years since quittin. Allergies: Allergies Allergen Reactions Adhesives [Bandage Tape] [...] Hemodyn (more content not included)... Normal [facility] BASIC METABOLIC PANELon 04-28 Anion gap [Moles/Vol] 12 mmol/L Normal 10- [facility] Comment on above: Performed By: #### 8 1571 #### NURSING GLUCOSE PROGRAM [address] [place], [address] Calcium [Mass/Vol] 8.1 mg/dL Low 8.4-10.4 [facility] Comment on above: Performed By: #### 8 2948 #### NURSING GLUCOSE PROGRAM [address] [place], [address] Chloride [Moles/Vol] 100 mmol/L Normal 97-111 [facility] Comment on above: Performed By: #### 8 2948 #### NURSING GLUCOSE PROGRAM [address] [place], [address] CO2 [Moles/Vol] 29 mmol/L Normal 21-30 [facility] Comment on above: Performed By: #### 8 2948 #### NURSING GLUCOSE PROGRAM [address] [place], [address] Creatinine [Mass/Vol] 0.65 mg/dL Normal 0.50-1.10 [facility] Comment on above: Performed By: #### 8 2948 #### NURSING GLUCOSE PROGRAM [address] [place], [address] ESTIMATED GFR (CKD-EPI) 96 mL/min/1.73sqm Normal >=60 [...] Inclusion of Race in Diagnosing Kidney Disease. [place] Journal of Kidney Diseases 202;79(2):268-88.e1. 2. N Engl J Med 1 Vol. 385 Issue 19 Pages 9515-3429 Performed By: #### 8 2948 #### NURSING GLUCOSE PROGRAM [address] [place], [address] Glucose [Mass/Vol] 107 mg/dL Normal 80-116 [facility] Comment on above: Performed By: #### 8 2948 #### NURSING GLUCOSE PROGRAM [address] [place], [address] Potassium [Moles/Vol] 3.2 mmol/L Low 3.3-5.[address] [facility] Comment on above: Performed By: #### 8 2948 #### NURSING GLUCOSE PROGRAM [address] [place] [address], [address] Sodium [Moles/Vol] 138 mmol/L Normal 135-[address] [facility] Comment on above: Performed By: #### 8 2948 #### NURSING GLUCOSE PROGRAM [address] [place] [address], [address] Urea nitrogen [Mass/Vol] 4 mg/dL Low 8-[address] [facility] Comment on above: Performed By: #### 8 2948 #### NURSING GLUCOSE PROGRAM [address] [place] [address], [address] COMPLETE BLOOD COUNTon 05-21 Erythrocyte distribution width (RBC) [Ratio] 15.2 % High 11.5-14.[address] [facility] Comment on above: Performed By: #### 8 2948 #### NURSING GLUCOSE PROGRAM [address] [place] [address], [address] Hematocrit (Bld) [Volume fraction] 30.1 % Low 36.0-46.[address] [facility] Comment on above: Performed By: #### 8 2948 #### NURSING GLUCOSE PROGRAM [address] [place] [address], [address] Hemoglobin (Bld) [Mass/Vol] 10.1 g/dL Low 12.0-15.[address] [facility] Comment on above: Performed By: #### 8 2948 #### NURSING GLUCOSE PROGRAM [address] [place] [address], [address] MCH (RBC) [Entitic mass] 27.5 pg Normal 26.0-34.[address] [facility] Comment on above: Performed By: #### 8 2948 #### NURSING GLUCOSE PROGRAM [address] [place], [address] MCHC (RBC) [Mass/Vol] 33.4 g/dL Normal 32.0-35.[address] [facility] Comment on above: Performed By: #### 8 2948 #### NURSING GLUCOSE PROGRAM [address] [place], [address] MCV (RBC) [Entitic vol] 82 fL Normal 80-[address] [facility] Comment on above: Performed By: #### 8 2948 #### NURSING GLUCOSE PROGRAM [address] [place], [address] Platelet mean volume (Bld) [Entitic vol] 7.5 fL Normal 7.5-11.2 [facility] Comment on above: Performed By: #### 8 2948 #### NURSING GLUCOSE PROGRAM [address] [place], [address] Platelets (Bld) [#/Vol] 241 10*3/uL Normal 150-400 [facility] Comment on above: Performed By: #### 8 2948 #### NURSING GLUCOSE PROGRAM [address] [place], [address] RBC (Bld) [#/Vol] 3.67 10*6/uL Low 4.00-5.20 [facility] Comment on above: Performed By: #### 8 2948 #### NURSING GLUCOSE PROGRAM [address] [place], [address] WBC (Bld) [#/Vol] 5.0 10*3/uL Normal 4.5-11.5 [facility] Comment on above: Performed By: #### 8 2948 #### NURSING GLUCOSE PROGRAM [address] [place], [address] Care Plan Noteon 05-21-2022 Master Planner Authentication Interface Message Text Problem: Routine Care: [...] imbalance Outcome: Progressing Normal [facility] Consultson 05-21-2022 Master Planner Authentication Interface Message Text Physical Therapy Attempted to see pt for treatment at 9:24, however, before this pt finished introducing herself pt states I just got back to sleep . Pt keeps her eyes closed and requests more time to sleep. Will continue to follow pt per POC. Geovanna Villagomez, PT, DPT Normal [facility] GLUCOSE, FINGERSTICK-IN OFFI CEon 05-21-2022 Glucose [Mass/Vol] 111 mg/dL Normal 80-116 [facility] Comment on above: Performed By: #### C H8, HEPATIC #### S PATHOLOGY LABORATORY [address] [place] [address], Glucose [Mass/Vol] 101 mg/dL Normal 80-116 [facility] Comment on above: Performed By: #### H STRP #### S [facility]OLOGY LABORATORY [address] [place] [address], Glucose [Mass/Vol] 90 mg/dL Normal 80-116 [facility] Comment on above: Performed By: #### M G, CH8 #### S [facility]OLOGY LABORATORY [address] [place] [address], Glucose [Mass/Vol] 77 mg/dL Low 80-116 [facility] Comment on above: Performed By: #### 8 2948 #### NURSING GLUCOSE PROGRAM [address] [place] [address], Glucose [Mass/Vol] 91 mg/dL Normal 80-116 [facility] Comment on above: Performed By: #### T S #### [facility] [address] [place] [address], MAGNESIUMon 05-21-2022 Magnesium [Mass/Vol] 1.9 mg/dL Normal 1.6-2.8 [facility] Comment on above: Performed By: #### 8 2948 #### NURSING GLUCOSE PROGRAM [address] [place] [address], [address] Progress Noteson 05-21-2022 Master Planner Authentication Interface Message Text [facility] DIVISION OF ACUTE CARE SURGERY ---- GENERAL INFORMATION --- EMERGENCY GENERAL SURGERY NOTE Patient Name: Gerry Victoria Admission Date: 05/16/2022 Patient seen and examined on 05/21/2022 -- INTERVAL HISTORY/EVENTS Background Narrative: Gerry Victoria is a 66 year old female with PMH of hypertension, RLS, GERD, and h/o paroxysmal SVT who presented to [facility] with epigastric pain with nausea and vomiting. Patient describes onset of pain on prior day that has increased since then. Shortly after onset of pain, patient experienced nausea and persistent vomiting, now unable to tolerate PO intake. Denies fevers, chills. She presented to [facility] where EKG demonstrated 'hyperacute T waves' in multiple leads without evidence of STEMI. Troponin originally 139, then 381 on repeat. CTA was performed and did not reveal dissection or PE. CT did demonstrate acute inflammation of the gallbladder with a stone at the neck. A central line was placed for resuscitation purposes and the patient was transferred to [facility] for further evaluation. Prior to transfer, lab work without leukocytosis (10.7) and LFTs/Lipase without abnormality. ACS consulted upon arrival to [facility] for cholecystitis. She was admitted to the SDU for telemetry under EGS but transferred to [facility] on 05/20/22 Hospital Course/Procedures: 05/16/2022: Transferred from [facility] ED with cholecystitis, up-trending troponin, and unclear EKG findings. Up-trending leukocytosis, down-trending troponin by PM. Cardiology following. Zosyn started. 05/17/2022: rCT with worsening gallbladder inflammation /o free air or rupture. Percutaneous cholecystotomy tube placement with IR. 05/19/2022: Bilious emesis, NGT placed 05/20/2022: Transferred to [facility] 05/21/2022:To stop zosyn today day 06/28 [...] Seen resting in bed in SICU in [facility]- I J line in place -Neurologic [...] Hct MCV RDW Plt PT aPTT INR 05/21/22123 5.0 3.67 10.1 30.1 82 15.2 241 Basic Metabolic Panel Na K Cl CO2 Gap Glu BUN Cr Ca Mg PO4 05/21/22123 1.9 05/21/22123 138 3.2 100 29 [...] Acute Cholecystitis Acute abdominal pain Type II KS Atypical takatsubo PMHx: GERD, HTN, HLD, spinal stenosis, paroxysmal SVT, overactive bladder, RLS, stasis dermatitis, PARTH, fibromyalgia, chronic fatigue syndrome Assessment: 66yo female with acute cholecystitis and associated pain. Admission complicated by initial up-trending troponin and abnormal EKG findings. Troponin now down-trending. Echo 05/16 with findings of LVEF 55% and possible atypical takatsubo for w (more content not included)... Normal [facility] ANTI FXA-LMW HEPARINon 05-20 ANTI FXA-LMW HEPARIN ASSAY 0.25 IU/mL Normal [facility] Comment on above: Order Comment: The r ecommended therapeutic range for treatment of thrombosis with Low Molecular Weight Heparin is 0.5 - 1.0 IU/mLThe recommended range for VTE prophylaxis with Low Molecular Weight Heparin is 0.2 - 0.4 IU/mL. Performed By: #### 8 [id number] #### [facility] GLUCOSE PROGRAM [address] [place] [address], [id number] BASIC METABOLIC PANELon - Anion gap [Moles/Vol] 11 mmol/L Normal 10-[address] [facility] Comment on above: Performed By: #### Reid Grullon, CH8 #### [facility] [address] [place] [address], Calcium [Mass/Vol] 7.6 mg/dL Low 8.4-10.[address] [facility] Comment on above: Performed By: #### Reid Grullon, CH8 #### [facility] [address] [place] [address], Chloride [Moles/Vol] 100 mmol/L Normal 97-[address] [facility] Comment on above: Performed By: #### Reid Grullon, CH8 #### [facility] [address] [place] [address], CO2 [Moles/Vol] 30 mmol/L Normal 21-[address] [facility] Comment on above: Performed By: #### Reid Grullon, CH8 #### [facility] [address] [place] [address], Creatinine [Mass/Vol] 0.71 mg/dL Normal 0.50-1.[address] [facility] Comment on above: Performed By: #### Reid Grullon, CH8 #### [facility] [address] [place] [address], ESTIMATED GFR (CKD-EPI) 93 mL/min/1.73sqm Normal >=[address] [facility] Comment on above: Result Comment: 2020 [...] Inclusion of Race in Diagnosing Kidney Disease. [place] Journal of Kidney Diseases 2021;79(2):268-88.e1. 2. N Engl J Med 2020 Vol. 385 Issue 19 Pages 4077-8479 Performed By: #### Reid Grullon, CH8 #### [facility] [address] [place] [address], Glucose [Mass/Vol] 105 mg/dL Normal 80-116 [facility] Comment on above: Performed By: #### Reid Grullon, CH8 #### [facility] [address] [place] [address], Potassium [Moles/Vol] 3.8 mmol/L Normal 3.3-5.3 [facility] Comment on above: Performed By: #### Reid Grullon, CH8 #### [facility] [address] [place] [address], Sodium [Moles/Vol] 137 mmol/L Normal 135-[address] [facility] Comment on above: Performed By: #### Reid Grullon, ADEEL8 #### [facility] [address] [place] [address], Urea nitrogen [Mass/Vol] 5 mg/dL Low 8-22 [facility] Comment on above: Performed By: #### Reid Grullon, CH8 #### [facility] [address] [place] [address], COMPLETE BLOOD COUNTon 05-20 Erythrocyte distribution width (RBC) [Ratio] 15.3 % High 11.5-14.[address] [facility] Comment on above: Performed By: #### T S #### [facility] [address] [place] [address], Hematocrit (Bld) [Volume fraction] 27.9 % Low 36.0-46.0 [facility] Comment on above: Performed By: #### T S #### [facility] [address] [place] [address], Hemoglobin (Bld) [Mass/Vol] 9.2 g/dL Low 12.0-15.[address] [facility] Comment on above: Performed By: #### T S #### [facility] [address] [place] [address], MCH (RBC) [Entitic mass] 27.5 pg Normal 26.0-34.[address] [facility] Comment on above: Performed By: #### T S #### [facility] [address] [place] [address], MCHC (RBC) [Mass/Vol] 33.0 g/dL Normal 32.0-35.[address] [facility] Comment on above: Performed By: #### T S #### [facility] [address] [place] [address], MCV (RBC) [Entitic vol] 83 fL Normal 80-[address] [facility] Comment on above: Performed By: #### T S #### [facility] [address] [place] [address], Platelet mean volume (Bld) [Entitic vol] 7.5 fL Normal 7.5-11.2 [facility] Comment on above: Performed By: #### T S #### [facility] [address] [place] [address], Platelets (Bld) [#/Vol] 231 10*3/uL Normal 150-400 [facility] Comment on above: Performed By: #### T S #### [facility] [address] [place] [address], RBC (Bld) [#/Vol] 3.36 10*6/uL Low 4.00-5.20 [facility] Comment on above: Performed By: #### T S #### [facility] [address] [place] [address], WBC (Bld) [#/Vol] 4.7 10*3/uL Normal 4.5-11.[address] [facility] Comment on above: Performed By: #### T S #### [facility] [address] [place] [address], GLUCOSE, FINGERSTICK-IN OFFI CEon 05-20-2022 Glucose [Mass/Vol] 95 mg/dL Normal 80-116 [facility] Comment on above: Performed By: #### 8 [id number] ####NURSING GLUCOSE [id number] [place], [address] Glucose [Mass/Vol] 117 mg/dL High 80-116 [facility] Comment on above: Performed By: #### 8 [id number] #### NURSING GLUCOSE PROGRAM [address] [place], [address] Glucose [Mass/Vol] 85 mg/dL Normal 80-116 [facility] Comment on above: Performed By: #### Reid Grullon, CH8 #### [facility] [address] [place], [place], Glucose [Mass/Vol] 100 mg/dL Normal 80-116 [facility] Comment on above: Performed By: #### T S #### [facility] [address] [place], [place], Glucose [Mass/Vol] 102 mg/dL Normal 80-116 [facility] Comment on above: Performed By: #### 8 [id number] #### NURSING GLUCOSE PROGRAM [address] [place], [address] Glucose [Mass/Vol] 92 mg/dL Normal 80-116 [facility] Comment on above: Performed By: #### Reid Grullon, CH8 #### [facility] [address] [place], [place], MAGNESIUMon 05-20-2022 Magnesium [Mass/Vol] 1.8 mg/dL Normal 1.6-2.[address] Comment on above: Performed By: #### Reid Grullon, CH8 #### [facility] [address] [place], [place], Progress Noteson 05-20-2022 Master Planner Authentication Interface Message Text [facility] DIVISION OF ACUTE CARE SURGERY ---- GENERAL INFORMATION --- EMERGENCY GENERAL SURGERY NOTE Patient Name: Gerry Victoria Admission Date: 05/16/2022 Patient seen and examined on 05/20/2022 -- INTERVAL HISTORY/EVENTS Background Narrative: Gerry Victoria is a 66 year old female with PMH of hypertension, RLS, GERD, and h/o paroxysmal SVT who presented to [facility] with epigastric pain with nausea and vomiting. Patient describes onset of pain on prior day that has increased since then. Shortly after onset of pain, patient experienced nausea and persistent vomiting, now unable to tolerate PO intake. Denies fevers, chills. She presented to [facility] where EKG demonstrated 'hyperacute T waves' in multiple leads without evidence of STEMI. Troponin originally 139, then 381 on repeat. CTA was performed and did not reveal dissection or PE. CT did demonstrate acute inflammation of the gallbladder with a stone at the neck. A central line was placed for resuscitation purposes and the patient was transferred to [facility] for further evaluation. Prior to transfer, lab work without leukocytosis (10.7) and LFTs/Lipase without abnormality. ACS consulted upon arrival to [facility] for cholecystitis. She was admitted to the SDU for telemetry under EGS. Hospital Course/Procedures: 05/16/2022: Transferred from [facility] ED with cholecystitis, up-trending troponin, and unclear EKG findings. Up-trending leukocytosis, down-trending troponin by PM. Cardiology following. Zosyn started. 05/17/2022: rCT with worsening gallbladder inflammation /o free air or rupture. Percutaneous cholecystotomy tube placement with IR. 05/19/2022: Bilious emesis, NGT placed 05/20/2022: Transferred to [facility] Events in last 24 hours: Transferred to [facility] Afebrile, HDS, no leukocytosis NGT in [...] Acute Cholecystitis Acute abdominal pain Type II [place] Atypical takatsubo PMHx: GERD, HTN, HLD, spinal [...] wit (more content not included)... Normal [facility] BASIC METABOLIC PANELon 04-28 Anion gap [Moles/Vol] 10 mmol/L Normal 10-20 [facility] Comment on above: Performed By: #### Reid Grullon CH8 #### S PATHOLOGY LABORATORY [address] [place] [address], Calcium [Mass/Vol] 7.7 mg/dL Low 8.4-10.4 [facility] Comment on above: Performed By: #### Reid Grullon CH8 #### [facility] [address] [place], [place], Chloride [Moles/Vol] 102 mmol/L Normal 97-111 [facility] Comment on above: Performed By: #### Reid Grullon CH8 #### [facility] [address] [place] [address], CO2 [Moles/Vol] 31 mmol/L High 21-30 [facility] Comment on above: Performed By: #### Reid Grullon, CH8 #### S PATHOLOGY LABORATORY [address] [place], [place], Creatinine [Mass/Vol] 0.74 mg/dL Normal 0.50-1.10 [facility] Comment on above: Performed By: #### Reid Grullon, CH8 #### S PATHOLOGY LABORATORY [address] [place], [place], ESTIMATED GFR (CKD-EPI) 88 mL/min/1.73sqm Normal >=[address] [facility] Comment on above: Result Comment: 2020 [...] Inclusion of Race in Diagnosing Kidney Disease. [place] Journal of Kidney Diseases 2021;79(2):268-88.e1. 2. N Engl J Med 1 Vol. 385 Issue 19 Pages 5982-5187 Performed By: #### Reid Grullon, ADEEL8 #### S PATHOLOGY LABORAT[facility] [address] [place], [place], Glucose [Mass/Vol] 120 mg/dL High 80-[address] [facility] Comment on above: Performed By: #### Reid Grullon, CH8 #### S PATHOLOGY LABORAT[facility] [address] [place], [place], Potassium [Moles/Vol] 3.5 mmol/L Normal 3.3-5.[address] [facility] Comment on above: Performed By: #### Reid Grullon, CH8 #### S [facility] [address] [place], [place], Sodium [Moles/Vol] 139 mmol/L Normal 135-148 [facility] Comment on above: Performed By: #### Reid Grullon, CH8 #### S PATHOLOGY LABORAT[facility] [address] [place], [place], Urea nitrogen [Mass/Vol] 8 mg/dL Normal 8-22 [facility] Comment on above: Performed By: #### Reid Grullon, CH8 #### [facility] [address] [place] [address], COMPLETE BLOOD COUNTon 05-19 Erythrocyte distribution width (RBC) [Ratio] 15.6 % High 11.5-14.5 [facility] Comment on above: Performed By: #### Reid Grullon, CH8 #### [facility] [address] [place] [address], Hematocrit (Bld) [Volume fraction] 28.2 % Low 36.0-46.0 [facility] Comment on above: Performed By: #### Reid Grullon, CH8 #### [facility] [address] [place] [address], Hemoglobin (Bld) [Mass/Vol] 9.4 g/dL Low 12.0-15.0 [facility] Comment on above: Performed By: #### Reid Grullon, CH8 #### [facility] [address] [place] [address], MCH (RBC) [Entitic mass] 27.7 pg Normal 26.0-34.[address] [facility] Comment on above: Performed By: #### Reid Grullon, CH8 #### [facility] [address] [place] [address], MCHC (RBC) [Mass/Vol] 33.6 g/dL Normal 32.0-35.9 [facility] Comment on above: Performed By: #### Reid Grullon, CH8 #### [facility] [address] [place] [address], MCV (RBC) [Entitic vol] 83 fL Normal 80-100 [facility] Comment on above: Performed By: #### Reid Grullon, CH8 #### [facility] [address] [place] [address], Platelet mean volume (Bld) [Entitic vol] 7.8 fL Normal 7.5-11.2 [facility] Comment on above: Performed By: #### Reid Grullon, CH8 #### [facility] [address] [place] [address], Platelets (Bld) [#/Vol] 199 10*3/uL Normal 150-400 [facility] Comment on above: Performed By: #### Reid Grullon CH8 #### [facility] [address] [place] [address], RBC (Bld) [#/Vol] 3.41 10*6/uL Low 4.00-5.20 [facility] Comment on above: Performed By: ###Willi Grullon CH8 #### [facility] [address] [place], [place], WBC (Bld) [#/Vol] 5.3 10*3/uL Normal 4.5-11.5 [facility] Comment on above: Performed By: #### Reid Grullon CH8 #### [facility] [address] [place], [place], Care Plan Noteon 05-19-2022 Master Planner Authentication Interface Message Text Problem: Routine Care: [...] Glucose [Mass/Vol] 80 mg/dL Normal 80-116 [facility] Comment on above: Performed By: #### M G, CH8 #### S PATHOLOGY LABORATORY [address] [place] [address], Glucose [Mass/Vol] 90 mg/dL Normal 80-[address] [facility] Comment on above: Performed By: #### 8 [id number] #### NURSING GLUCOSE PROGRAM [address] [place], [place], Glucose [Mass/Vol] 116 mg/dL Normal 80-[address] [facility] Comment on above: Performed By: #### T S #### S PATHOLOGY LABORATORY [address] [place] [address], Glucose [Mass/Vol] 106 mg/dL Normal 80-[address] [facility] Comment on above: Performed By: #### Reid Grullon, CH8 #### S [facility]OLOGY LABORATORY [address] [place] [address], Glucose [Mass/Vol] 106 mg/dL Normal 80-[address] [facility] Comment on above: Performed By: #### Reid Grullon, CH8 #### [facility] [address] [place] [address], HEPATIC FUNCTION PANELon Albumin [Mass/Vol] 2.8 g/dL Low 3.4-5.[address] [facility] Comment on above: Performed By: #### Reid Grullon, CH8 #### S PATHOLOGY LABORATORY [address] [place] [address], ALK 63 IU/L Normal 40-200 [facility] Comment on above: Performed By: #### Reid Grullon, CH8 #### S [facility] [address] [place] [address], ALT [Catalytic activity/Vol] 8 U/L Normal 7-[address] [facility] Comment on above: Performed By: #### Reid Grullon, CH8 #### S [facility] LAB[facility] [address] [place] [address], AST [Catalytic activity/Vol] 18 U/L Normal 7-40 [facility] Comment on above: Performed By: #### Reid Grullon, CH8 #### S [facility] LAB[facility] [address] [place] [address], Bilirubin [Mass/Vol] 0.9 mg/dL Normal 0.1-1.5 [facility] Comment on above: Performed By: #### M Yadi, CH8 #### S PATHOLOGY LABORATORY [address] [place] [address], Bilirubin.direct [Mass/Vol] 0.48 mg/dL High 0.10-0.[address] [facility] Comment on above: Performed By: #### Reid Grullon, CH8 #### S PATH[facility] LAB[facility]ATORY [address] [place] [address], Protein [Mass/Vol] 4.7 g/dL Low 5.7-8.1 [facility] Comment on above: Performed By: #### Reid Grullon, CH8 #### S PATHOLOG[facility] LABORATORY [address] [place] [address], MAGNESIUMon 05-19-2022 Magnesium [Mass/Vol] 1.8 mg/dL Normal 1.6-2.[address] [facility] Comment on above: Performed By: #### Reid Grullon, CH8 #### [facility] [address] [place] [address], Progress Noteson 05-19-2022 Master Planner Authentication Interface Message Text [facility] DIVISION OF ACUTE CARE SURGERY ---- GENERAL INFORMATION --- EMERGENCY GENERAL SURGERY NOTE Patient Name: Gerry Victoria Admission Date: 05/16/2022 Patient seen and examined on 05/19/2022 -- INTERVAL HISTORY/EVENTS Background Narrative: Gerry Victoria is a 66 year old female with PMH of hypertension, RLS, GERD, and h/o paroxysmal SVT who presented to [facility] with epigastric pain with nausea and vomiting. Patient describes onset of pain on prior day that has increased since then. Shortly after onset of pain, patient experienced nausea and persistent vomiting, now unable to tolerate PO intake. Denies fevers, chills. She presented to [facility] where EKG demonstrated 'hyperacute T waves' in multiple leads without evidence of STEMI. Troponin originally 139, then 381 on repeat. CTA was performed and did not reveal dissection or PE. CT did demonstrate acute inflammation of the gallbladder with a stone at the neck. A central line was placed for resuscitation purposes and the patient was transferred to [facility] for further evaluation. Prior to transfer, lab work without leukocytosis (10.7) and LFTs/Lipase without abnormality. ACS consulted upon arrival to [facility] for cholecystitis. She was admitted to the SDU for telemetry under EGS. Hospital Course/Procedures: 05/16/2022: Transferred from [facility] ED with cholecystitis, up-trending troponin, and unclear [...] 430cc Intake/Output Summary (Last 24 hours) at 05/19/2022926 Last data filed at 05/19/2022 0800 Gross [...] vol (more content not included)... Normal [facility] XR ABDOMEN 1 VIEW APon 05-19 [...] amount of stool. MACRO: None Normal [facility] BASIC METABOLIC PANELon - Anion gap [Moles/Vol] 12 mmol/L Normal 10-20 [facility] Comment on above: Performed By: #### Reid Grullon CH8 #### [facility] [address] [place] [address], Calcium [Mass/Vol] 7.7 mg/dL Low 8.4-10.4 [facility] Comment on above: Performed By: #### Reid Grullon CH8 #### [facility] [address] [place], [place], Chloride [Moles/Vol] 101 mmol/L Normal 97-111 [facility] Comment on above: Performed By: #### Reid Grullon CH8 #### [facility] [address] [place], [place], CO2 [Moles/Vol] 27 mmol/L Normal 21-[address] [facility] Comment on above: Performed By: #### Reid Grullon, CH8 #### [facility] [address] [place], [place], Creatinine [Mass/Vol] 0.78 mg/dL Normal 0.50-1.[address] [facility] Comment on above: Performed By: #### Reid Grullon, CH8 #### S PATHOLOGY LABORATORY [address] [place], [place], ESTIMATED GFR (CKD-EPI) 83 mL/min/1.73sqm Normal >=[address] [facility] Comment on above: Result Comment: 2020 [...] Inclusion of Race in Diagnosing Kidney Disease. [place] Journal of Kidney Diseases 2021;79(2):268-88.e1. 2. N Engl J Med 1 Vol. 385 Issue 19 Pages 8698-6674 Performed By: #### Reid Grullon CH8 #### S PATHOLOGY LABORATORY [address] [place], [place], Glucose [Mass/Vol] 77 mg/dL Low 80-[address] [facility] Comment on above: Performed By: #### Reid Grullon, CH8 #### S PATHOLOGY LABORATORY [address] [place], [place], Potassium [Moles/Vol] 3.9 mmol/L Normal 3.3-5.[address] [facility] Comment on above: Performed By: #### Reid Grullon, CH8 #### [facility] [address] [place], [place], Sodium [Moles/Vol] 136 mmol/L Normal 135-[address] [facility] Comment on above: Performed By: #### Reid Grullon, CH8 #### S PATHOLOGY LABORATORY [address] [place], [place], Urea nitrogen [Mass/Vol] 12 mg/dL Normal 8-22 [facility] Comment on above: Performed By: #### Reid Grullon, CH8 #### [facility] [address] [place] [address], COMPLETE BLOOD COUNTon 05-18 Erythrocyte distribution width (RBC) [Ratio] 15.3 % High 11.5-14.5 [facility] Comment on above: Performed By: #### Reid Grullon, CH8 #### [facility] [address] [place] [address], Hematocrit (Bld) [Volume fraction] 28.2 % Low 36.0-46.0 [facility] Comment on above: Performed By: #### Reid Grullon, CH8 #### [facility] [address] [place] [address], Hemoglobin (Bld) [Mass/Vol] 10.1 g/dL Low 12.0-15.0 [facility] Comment on above: Performed By: #### Reid Grullon, CH8 #### [facility] [address] [place] [address], MCH (RBC) [Entitic mass] 29.2 pg Normal 26.0-34.0 [facility] Comment on above: Performed By: #### Reid Grullon, CH8 #### [facility] [address] [place] [address], MCHC (RBC) [Mass/Vol] 35.6 g/dL Normal 32.0-35.9 [facility] Comment on above: Performed By: #### Reid Grullon, CH8 #### [facility] [address] [place] [address], MCV (RBC) [Entitic vol] 82 fL Normal 80-100 [facility] Comment on above: Performed By: #### Reid Grullon, CH8 #### [facility] [address] [place] [address], Platelet mean volume (Bld) [Entitic vol] 7.6 fL Normal 7.5-11.2 [facility] Comment on above: Performed By: #### Reid Grullon, CH8 #### [facility] [address] [place] [address], Platelets (Bld) [#/Vol] 177 10*3/uL Normal 150-400 [facility] Comment on above: Performed By: #### Reid Grullon, CH8 #### [facility] [address] [place] [address], RBC (Bld) [#/Vol] 3.45 10*6/uL Low 4.00-5.20 [facility] Comment on above: Performed By: #### Reid Grullon, ADEEL8 #### S PATHOLOGY LABORATORY [address] [place] [address], WBC (Bld) [#/Vol] 9.4 10*3/uL Normal 4.5-11.5 [facility] Comment on above: Performed By: #### Reid Grullon, ADEEL8 #### [facility] [address] [place] [address], GLUCOSE, FINGERSTICK-IN OFFI CEon 05-18-2022 Glucose [Mass/Vol] 93 mg/dL Normal 80-116 [facility] Comment on above: Performed By: #### T S #### [facility] [address] [place] [address], Glucose [Mass/Vol] 98 mg/dL Normal 80-116 [facility] Comment on above: Performed By: #### T S #### [facility] [address] [place] [address], Glucose [Mass/Vol] 118 mg/dL High 80-116 [facility] Comment on above: Result Comment: Verito aly RN, APN, MD Performed By: #### T S #### [facility] [address] [place] [address], Glucose [Mass/Vol] 125 mg/dL High 80-116 [facility] Comment on above: Result Comment: Verito aly RN, APN, MD Performed By: #### Reid Grullon, CH8 #### S PATHOLOGY LABORATORY [address] [place] [address], Glucose [Mass/Vol] 66 mg/dL Low 80-116 [facility] Comment on above: Result Comment: Verito aly RN, APN, MD Performed By: #### M [facility] #### [facility] [address] [place], [id number] HIGH SENSITIVITY TROPONIN Io n 05-18-2022 HS TROPONIN I 60 ng/L Critically high <=15 [facility] Comment on above: Order Comment: High Sensitivity Cardiac Troponin I (hsTnI) assay has replaced the conventional troponin assay at [facility].All results are reported in whole numbers representing ng/L.Repeat test times for ruling out acute coronary syndrome (ACS) are every 2 hours instead of every 6-8 hours.[id number] conventional troponin (I-stat) will remain available in the [facility] [place] [facility] ??? results obtained by different labs [...] value in 2 hours depending on risk [id number] ng/L or greater??? concern for ACS or [...] 2 points). Performed By: #### H STRP ####S PATHOLOGY [id number] [place], [place], MAGNESIUMon 05-18-2022 Magnesium [Mass/Vol] 2.3 mg/dL Normal 1.6-2.8 [facility] Comment on above: Performed By: #### M G, CH8 #### S PATHOLOGY LABORATORY [address] [place], [place], Progress Noteson 05-18-2022 Master Planner Authentication Interface Message Text [facility] DIVISION OF ACUTE CARE SURGERY ---- GENERAL INFORMATION --- EMERGENCY GENERAL SURGERY NOTE Patient Name: Gerry Victoria Admission Date: 05/16/2022 Patient seen and examined on 05/18/2022 -- INTERVAL HISTORY/EVENTS Background Narrative: Gerry Victoria is a 66 year old female with PMH of hypertension, RLS, GERD, and h/o paroxysmal SVT who presented to [facility] with epigastric pain with nausea and vomiting. Patient describes onset of pain on prior day that has increased since then. Shortly after onset of pain, patient experienced nausea and persistent vomiting, now unable to tolerate PO intake. Denies fevers, chills. She presented to [facility] where EKG demonstrated 'hyperacute T waves' in multiple leads without evidence of STEMI. Troponin originally 139, then 381 on repeat. CTA was performed and did not reveal dissection or PE. CT did demonstrate acute inflammation of the gallbladder with a stone at the neck. A central line was placed for resuscitation purposes and the patient was transferred to [facility] for further evaluation. Prior to transfer, lab work without leukocytosis (10.7) and LFTs/Lipase without abnormality. ACS consulted upon arrival to [facility] for cholecystitis. She was admitted to the SDU for telemetry under EGS. Hospital Course/Procedures: 05/16/2022: Transferred from [facility] ED with cholecystitis, up-trending troponin, and unclear [...] Seen resting in bed in SICU in [facility] -Neurologic - No focal deficits, clear speech [...] obstructi (more content not included)... Normal [facility] AEROBIC WOUND CULTUREon 04-28 AEROBIC WOUND CULTURE LACTOBACILLUS SPEC IES Rare Lactobacillus species No further workup GRAM STAIN: 2+ Polymorphonuclear Leukocytes No Squamous Epithelial Cells seen 2+ Gram Positive Bacilli Normal [facility] Comment on above: Performed By: #### C PYOG #### [facility] [address] [place] [address] BASIC METABOLIC PANELon - Anion gap [Moles/Vol] 11 mmol/L Normal 10-20 [facility] Comment on above: Performed By: #### T S #### [facility] [address] [place] [address], Calcium [Mass/Vol] 8.1 mg/dL Low 8.4-10.4 [facility] Comment on above: Performed By: #### T S #### [facility] [address] [place] [address], Chloride [Moles/Vol] 97 mmol/L Normal 97-111 [facility] Comment on above: Performed By: #### T S #### [facility] [address] [place] [address], CO2 [Moles/Vol] 27 mmol/L Normal 21-30 [facility] Comment on above: Performed By: #### T S #### [facility] [address] [place] [address], Creatinine [Mass/Vol] 0.97 mg/dL Normal 0.50-1.10 [facility] Comment on above: Performed By: #### T S #### [facility] [address] [place] [address], ESTIMATED GFR (CKD-EPI) 64 mL/min/1.73sqm Normal >=60 [facility] Comment on above: Result Comment: 2020 [...] Inclusion of Race in Diagnosing Kidney Disease. [place] Journal of Kidney Diseases 202;79(2):268-88.e1. 2. N Engl J Med 2021 Vol. 385 Issue 19 Pages 7185-4995 Performed By: #### T S #### S [facility] [address] [place], [place], Glucose [Mass/Vol] 96 mg/dL Normal 80-[address] [facility] Comment on above: Performed By: #### T S #### S [facility] [address], [place], Potassium [Moles/Vol] 4.1 mmol/L Normal 3.3-5.[address] [facility] Comment on above: Performed By: #### T S #### S [facility] [address], [place], Sodium [Moles/Vol] 131 mmol/L Low 135-[address] [facility] Comment on above: Performed By: #### T S #### S [facility] [address] [place] [address], Urea nitrogen [Mass/Vol] 14 mg/dL Normal 8-[address] [facility] Comment on above: Performed By: #### T S #### S [facility] [address] [place] [address], BLOOD CULTUREon 05-17-2022 Bacteria identified Cx Nom (Bld) C BLOOD: No Growth Normal [facility] Comment on above: Performed By: #### 8 2948 #### NURSING GLUCOSE PROGRAM [address] [place], [place], CALCIUM, IONIZEDon CR ICA 1.06 mmol/L Low 1.10-1.[address] [facility] Comment on above: Performed By: #### T S #### S [facility] [address] [place], [place], COMPLETE BLOOD COUNTon 05-17 Erythrocyte distribution width (RBC) [Ratio] 15.8 % High 11.5-14.[address] [facility] Comment on above: Performed By: #### C H8, HEPATIC #### S [facility] [address] [place], [place], Hematocrit (Bld) [Volume fraction] 36.4 % Normal 36.0-46.[address] [facility] Comment on above: Performed By: #### C H8, HEPATIC #### [facility] [address] [place], [place], Hemoglobin (Bld) [Mass/Vol] 12.1 g/dL Normal 12.0-15.[address] Comment on above: Performed By: #### C H8, HEPATIC #### [facility] [address] [place], [place], MCH (RBC) [Entitic mass] 27.7 pg Normal 26.0-34.0 [facility] Comment on above: Performed By: #### C H8, HEPATIC #### [facility] [address] [place], [place], MCHC (RBC) [Mass/Vol] 33.3 g/dL Normal 32.0-35.9 [facility] Comment on above: Performed By: #### C H8, HEPATIC #### S [facility] [address] [place], [place], MCV (RBC) [Entitic vol] 83 fL Normal 80-100 [facility] Comment on above: Performed By: #### C H8, HEPATIC #### S [facility] [address] [place], [place], Platelet mean volume (Bld) [Entitic vol] 7.8 fL Normal 7.5-11.2 [facility] Comment on above: Performed By: #### C H8, HEPATIC #### S [facility] [address] [place], [place], Platelets (Bld) [#/Vol] 232 10*3/uL Normal 150-400 [facility] Comment on above: Performed By: #### C H8, HEPATIC #### [facility] [address] [place], [place], RBC (Bld) [#/Vol] 4.37 10*6/uL Normal 4.00-5.20 [facility] Comment on above: Performed By: #### C H8, HEPATIC #### [facility] [address] [place], [place], WBC (Bld) [#/Vol] 12.3 10*3/uL High 4.5-11.5 [facility] Comment on above: Performed By: #### C H8, HEPATIC #### [facility] [address] [place], [id number] [address] ABDOMEN/PELVIS W/ CONTRAS Ton 05-17-2022 CT [...] the prior study. MACRO: None Normal [facility] HEPATIC FUNCTION PANELon Albumin [Mass/Vol] 3.2 g/dL Low 3.4-5.1 [facility] Comment on above: Performed By: #### C H8, HEPATIC #### [facility] [address] [place] [address], ALK 72 IU/L Normal 40-200 [facility] Comment on above: Performed By: #### C H8, HEPATIC #### [facility] [address] [place] [address], ALT [Catalytic activity/Vol] 12 U/L Normal 7-40 [facility] Comment on above: Performed By: #### C H8, HEPATIC #### [facility] [address] [place] [address], AST [Catalytic activity/Vol] 25 U/L Normal 7-[address] [facility] Comment on above: Performed By: #### C H8, HEPATIC #### [facility] [address] [place] [address], Bilirubin [Mass/Vol] 3.9 mg/dL High 0.1-1.5 The [facility] Comment on above: Performed By: #### C H8, HEPATIC #### [facility] [address] [place] [address], Bilirubin.direct [Mass/Vol] 2.30 mg/dL High 0.10-0.30 [facility] Comment on above: Performed By: #### C H8, HEPATIC #### [facility] [address] [place] [address], Protein [Mass/Vol] 5.2 g/dL Low 5.7-8.[address] [facility] Comment on above: Performed By: #### C Valeri8, HEPATIC #### [facility] [address] [place] [address], LACTIC ACIDon 05-17-2022 CR LACT 1.4 mmol/L Normal 0.5-2.[address] [facility] Comment on above: Performed By: #### T S #### S [facility] [address], [place], MAGNESIUMon 05-17-2022 Magnesium [Mass/Vol] 1.9 mg/dL Normal 1.6-2.[address] [facility] Comment on above: Performed By: #### Meenu Mccormick, HEPATIC #### S [facility] [address] [place] [address], PARTIAL THROMBOPLASTIN TIMEo n 05-17-2022 aPTT Coag (Bld) [Time] 34 s Normal 25-37 Th e [facility] Comment on above: Performed By: #### Reid Grullon CH8 #### S [facility] [address] [place] [address], PHOSPHORUSon 05-17-2022 Phosphate [Mass/Vol] 3.9 mg/dL Normal 2.3-4.[address] Comment on above: Performed By: #### Meenu Mccormick, HEPATIC #### S [facility] [address] [place] [address], PROTHROMBIN TIME AND INRon 0 05-17-2022 INR Coag (PPP) [Relative time] 1.61 {INR} High 0.90-1.[address] Comment on above: Performed By: #### Reid Grullon, CH8 #### S [facility] [address] [place] [address], PT Coag (PPP) [Time] 18.1 s High 9.7-12.[address] [facility] Comment on above: Performed By: #### Reid Grullon, CH8 #### S [facility] [address] [place] [address], [phone] Progress Noteson 05-17-2022 Master Planner Authentication Interface Message Text Acute Care Surgery Post-Operative Check Gerry Victoria [id number] Procedure: US guided percutaneous cholecystostomy tube placement [...] Chu Da Silva PA-C Acute Care Surgery [facility] [phone] ACS Consults [phone] ACS Floor Patients Normal [facility] Master Planner Authentication Interface Message Text -- Attestation signed [...] at 05/18/22 0613 4,500 mg at 05/18/22 06 acetaminophen (TYLENOL) tablet 650 mg Oral Every 4 hours 650 mg at 05/18/22 0608 metoprolol (LOPRESSOR) tablet 25 mg Oral Every 12 hours 25 mg at 05/18/22 0810 rOPINIRole (REQUIP) tablet 2 mg Oral At Bedtime 2 mg at 05/17/22 210 gabapentin (NEURONTIN) capsule 100 mg Oral 3x [...] Cl CO2 Gap Glu BUN Cr Ca 05/18/228 136 3.9 101 27 12 77 12 0.78 7.7 05/17/22 0411 131 4.1 97 27 11 96 14 0.97 8.1 05/16/22 0222 136 4. (more content not included)... Normal [facility] Master Planner Authentication Interface Message Text [facility] DIVISION OF ACUTE CARE SURGERY ---- GENERAL INFORMATION --- EMERGENCY GENERAL SURGERY NOTE Patient Name: Gerry Victoria Admission Date: 05/16/2022 Patient seen and examined on 05/17/2022 -- INTERVAL HISTORY/EVENTS Background Narrative: Gerry Victoria is a 66 year old female with PMH of hypertension, RLS, GERD, and h/o paroxysmal SVT who presented to [facility] with epigastric pain with nausea and vomiting. Patient describes onset of pain on prior day that has increased since then. Shortly after onset of pain, patient experienced nausea and persistent vomiting, now unable to tolerate PO intake. Denies fevers, chills. She presented to [facility] where EKG demonstrated 'hyperacute T waves' in multiple leads without evidence of STEMI. Troponin originally 139, then 381 on repeat. CTA was performed and did not reveal dissection or PE. CT did demonstrate acute inflammation of the gallbladder with a stone at the neck. A central line was placed for resuscitation purposes and the patient was transferred to [facility] for further evaluation. Prior to transfer, lab work without leukocytosis (10.7) and LFTs/Lipase without abnormality. ACS consulted upon arrival to [facility] for cholecystitis. She was admitted to the SDU for telemetry under EGS. Hospital Course/Procedures: 05/16/2022: Transferred from [facility] ED with cholecystitis, up-trending troponin, and unclear [...] Gap Glu BUN Cr Ca Mg PO4 05/17/221 3.9 05/17/22 0411 1.9 05/17/22 0411 131 [...] (LVEF) (more content not included)... Normal [facility] ABO RH TYPEon 05-16-2022 ABO and Rh group Nom (Bld) Blood group A Rh(D) positive Normal [facility] Comment on above: Performed By: #### M G CH8 #### [facility] [address] [place] [address], BASIC METABOLIC PANELon 04-28 Anion gap [Moles/Vol] 14 mmol/L Normal 10-[address] [facility] Comment on above: Performed By: #### C H8, HEPATIC #### [facility] [address] [place] [address], Calcium [Mass/Vol] 8.6 mg/dL Normal 8.4-10.[address] [facility] Comment on above: Performed By: #### C H8, HEPATIC #### [facility] [address] [place] [address], Chloride [Moles/Vol] 100 mmol/L Normal 97-[address] [facility] Comment on above: Performed By: #### C H8, HEPATIC #### [facility] [address] [place] [address], CO2 [Moles/Vol] 27 mmol/L Normal 21-[address] [facility] Comment on above: Performed By: #### C H8, HEPATIC #### [facility] [address] [place] [address], Creatinine [Mass/Vol] 0.76 mg/dL Normal 0.50-1.[address] [facility] Comment on above: Performed By: #### C H8, HEPATIC #### [facility] [address] [place] [address], ESTIMATED GFR (CKD-EPI) 85 mL/min/1.73sqm Normal >=60 [facility] Comment on above: Result Comment: 2020 [...] Inclusion of Race in Diagnosing Kidney Disease. [place] Journal of Kidney Diseases 2021;79(2):268-88.e1. 2. N Engl J Med 1 Vol. 385 Issue 19 Pages 4692-6888 Performed By: #### C H8, HEPATIC #### [facility] [address] [place] [address], Glucose [Mass/Vol] 119 mg/dL High 80-[address] [facility] Comment on above: Performed By: #### C H8, HEPATIC #### [facility] [address] [place] [address], Potassium [Moles/Vol] 4.9 mmol/L Normal 3.3-5.[address] [facility] Comment on above: Performed By: #### C H8, HEPATIC #### [facility] [address] [place] [address], Sodium [Moles/Vol] 136 mmol/L Normal 135-[address] [facility] Comment on above: Performed By: #### C H8, HEPATIC #### [facility] [address] [place] [address], Urea nitrogen [Mass/Vol] 9 mg/dL Normal 8-[address] [facility] Comment on above: Performed By: #### C H8, HEPATIC #### [facility] [address] [place] [address], [phone] Blood Cultureon 05-16-2022 Bacteria identified Cx Nom (Bld) NO GROWTH 5 DAYS PERFORMED BY: [place] [id number] PATHOLOGIST BODY ENGINEER WILDER BOTELLO M.D. Normal [facility] Comment on above: Performed By: #### B MP, CBC, LIPASE, HEPATIC #### [address] CBC WITH DIFFERENTIALon 04-28 Basophils (Bld) [#/Vol] 0.06 10*3/uL Normal 0.00-0.[address] Comment on above: Performed By: #### 8 2948 #### NURSING GLUCOSE PROGRAM [address] [place] [address], [address] Basophils/100 WBC (Bld) 0.5 % Normal <=1.[address] [facility] Comment on above: Performed By: #### 8 2948 #### NURSING GLUCOSE PROGRAM [address] [place] [address], [address] Eosinophils (Bld) [#/Vol] 0.02 10*3/uL Normal 0.00-0.70 [facility] Comment on above: Performed By: #### 8 2948 #### NURSING GLUCOSE PROGRAM [address] [place] [address], [address] Eosinophils/100 WBC (Bld) 0.1 % Normal 0.1-4.[address] Comment on above: Performed By: #### 8 2948 #### NURSING GLUCOSE PROGRAM [address] [place] [address], [address] Erythrocyte distribution width (RBC) [Ratio] 15.3 % High 11.5-14.[address] [facility] Comment on above: Performed By: #### 8 2948 #### NURSING GLUCOSE PROGRAM [address] [place] [address], [address] Hematocrit (Bld) [Volume fraction] 39.2 % Normal 36.0-46.0 [facility] Comment on above: Performed By: #### 8 2948 #### NURSING GLUCOSE PROGRAM [address] [place] [address], [address] Hemoglobin (Bld) [Mass/Vol] 13.0 g/dL Normal 12.0-15.[address] [facility] Comment on above: Performed By: #### 8 2948 #### NURSING GLUCOSE PROGRAM [address] [place] [address], [address] Lymphocytes (Bld) [#/Vol] 1.23 10*3/uL Normal 1.00-4.[address] [facility] Comment on above: Performed By: #### 8 2948 #### NURSING GLUCOSE PROGRAM [address] [place] [address], [address] Lymphocytes/100 WBC (Bld) 10.9 % Low 24.0-44.[address] [facility] Comment on above: Performed By: #### 8 2948 #### NURSING GLUCOSE PROGRAM [address] [place] [address], [address] MCH (RBC) [Entitic mass] 27.4 pg Normal 26.0-34.[address] [facility] Comment on above: Performed By: #### 8 2948 #### NURSING GLUCOSE PROGRAM [address] [place] [address], [address] MCHC (RBC) [Mass/Vol] 33.1 g/dL Normal 32.0-35.[address] [facility] Comment on above: Performed By: #### 8 2948 #### NURSING GLUCOSE PROGRAM [address] [place] [address], [address] MCV (RBC) [Entitic vol] 83 fL Normal 80-100 [facility] Comment on above: Performed By: #### 8 2948 #### NURSING GLUCOSE PROGRAM [address] [place] [address], [address] MONOCYTE DISTRIBUTION WIDTH 17 Normal <=20 [facility] Comment on above: Performed By: #### 8 2948 #### NURSING GLUCOSE PROGRAM [address] [place] [address], [address] Monocytes (Bld) [#/Vol] 0.69 10*3/uL Normal 0.20-1.[address] [facility] Comment on above: Performed By: #### 8 0478 #### NURSING GLUCOSE PROGRAM [address] [place] [address], [address] Monocytes/100 WBC (Bld) 6.1 % Normal 2.0-11.[address] [facility] Comment on above: Performed By: #### 8 9618 #### NURSING GLUCOSE PROGRAM [address] [place], [address] Neutrophils (Bld) [#/Vol] 9.30 10*3/uL High 1.50-8.00 [facility] Comment on above: Performed By: #### 8 2948 #### NURSING GLUCOSE PROGRAM [address] [place], [address] Neutrophils/100 WBC (Bld) 82.4 % High 31.0-76.0 [facility] Comment on above: Performed By: #### 8 2948 #### NURSING GLUCOSE PROGRAM [address] [place], [address] Platelet mean volume (Bld) [Entitic vol] 7.5 fL Normal 7.5-11.2 [facility] Comment on above: Performed By: #### 8 2948 #### NURSING GLUCOSE PROGRAM [address] [place], [address] Platelets (Bld) [#/Vol] 290 10*3/uL Normal 150-400 [facility] Comment on above: Performed By: #### 8 2948 #### NURSING GLUCOSE PROGRAM [address] [place], [address] RBC (Bld) [#/Vol] 4.74 10*6/uL Normal 4.00-5.20 [facility] Comment on above: Performed By: #### 8 2948 #### NURSING GLUCOSE PROGRAM [address] [place], [address] WBC (Bld) [#/Vol] 11.3 10*3/uL Normal 4.5-11.5 [facility] Comment on above: Performed By: #### 8 2948 #### NURSING GLUCOSE PROGRAM [address] [place], [address] CT angio chest PE protocolon 05-16-2022 CT angio chest PE protocol [facility] [place] [address] CT Scan Report Signed Patient: Gerry Victoria MR#: [id number] 10 : 1955 Acct:[id number] Age/Sex: 66 / F ADM Date: 05/15/22 Loc: ER Room: Type: [facility] ER Attending Dr: Copies to: Keith Griffith [...] Aditya Hodge M.D.05/16/2022 8:19 AM Dictation Location: [place] [address] Transcribed By: MANUEL 05/16/22818 Dictated By: Aditya Hodge II, MD 05/16/22810 Signed By: 05/16/22818 [facility] Care Plan Noteon 05-16-2022 Master Planner Authentication Interface Message Text Problem: Routine Care: [...] 1041 by Marycarmen Anna RN Outcome: Progressing Normal [facility] Master Planner Authentication Interface Message Text This is a 66 YO f with PMH of fibromyalgia, HTN, RLS, who presented with epigastric pain associated with nausea and vomiting around yesterday afternoon. She was seen at [facility] and EKG done there showed NSR but [...] admit to surgery step down. Normal [facility] Consultson 05-16-2022 Master Planner Authentication Interface Message Text Dietitian vs DietaryTech: Dietary TechDiet Marketing Research Analyst Nutrition Screening Reason for visit: Positive nutrition [...] Screening Value: None Comments: NPO currently with jtsini-yviosztj-rskeii to tolerate po. No food allergies. Weights-see above. Monitor NPO status-diet advance. Number of Points: 1 Nutritional Plan of Care: Less than or equal to 6 points: At this time, patient is at low nutrition risk. DTR to provide routine follow up. Will continue to follow, BRENDA Florez (Nutrition) Pager #[phone]. Normal [facility] Master Planner Authentication Interface Message Text ==== New Patient Consult General Cardiology Consult Service C/O: elevated troponin levels HPI: 66 year old female with history of hypertension (on atenolol), fibromylagia, RLS is consulted for elevated HsTNT levels in the setting of hospitalization for acute cholecystitis. She presented to [facility] on 05/15 with epigastric pain, nausea and vomiting, worsening in nature and unable to tolerate oral medications. Per records, EKG at [facility] showed hyperacute T waves without STEMI. HsTroponin trend as 139->381. Imaging showed acute cholecystitis. Patient was then transferred to [facility] for further care. Patient reports no left sided chest pain, however symptomatic with epigastric pain and nausea. Denies any exertional angina at home, no orthopnea, PND or palpitations at home. Denies any prior history of KS/CAD, DM-2, HF or arrhythmias. She was modestly [...] Assessment AND Plan Troponinemia, as Type II [place]. It is under the setting of demand [...] docum (more content not included)... Normal [facility] ED Provider Deandre 05-16-19 Master Planner Authentication Interface Message Text EMERGENCY DEPARTMENT - [...] and shows cholecystitis Discussion with External Provider: Dean For Student Affairs from surgery service recommends admission for cholecystectomy vs perc-merlyn drain Independent Test Interpretation: Lab studies personally interpreted, see course Nursing triage and assessment notes reviewed and incorporated. Evaluated by EM attending Ericka Torres Interpretation of Results AND Course: ED Course as of 05/16/22 0354 Mon May 16, 2022 0257 COMPLETE BLOOD COUNT W/DIFF [...] comforta (more content not included)... Normal [facility] H AND Cabrera 05-16-2022 Master Planner Authentication Interface Message Text [facility] ACUTE CARE SURGERY H AND P Gerry Victoria [id number] Consult reason: Concern for acute cholecystitis History (HPI) Gerry Victoria is a 66 year old female with PMH of hypertension, RLS, GERD who presented to [facility] with epigastric pain with nausea and vomiting. Patient describes onset of pain on prior day that has increased since then. Shortly after onset of pain, patient experienced nausea and persistent vomiting, now unable to tolerate PO intake. Denies fevers, chills. She presented to [facility] where EKG demonstrated 'hyperacute T waves' in multiple leads without evidence of STEMI. Troponin originally 139, then 381 on repeat. CTA was performed and did not reveal dissection or PE. CT did demonstrate acute inflammation of the gallbladder with a stone at the neck. A central line was placed for resuscitation purposes and the patient was transferred to [facility] for further evaluation. Prior to transfer, lab work without leukocytosis (10.7) and LFTs/Lipase without abnormality. ACS consulted upon arrival to [facility]. PMH: HTN, RLS, GERD, Hypothyroidism, Anxiety [...] Use (none): Lives with her cats (Kasi, Joseluis, Marely). Review of Systems (Bold is Positive [...] RLS, GERD who presents as transfer from [facility] with concern for acute cholecystitis alongside concurrent NSTEMI. Troponin originally 139, then 381 on repeat prior to transfer. Repeat Troponin at [facility] - 706. Cardiology consulted for evaluation [...] impa (more content not included)... Normal [facility] HEPATIC FUNCTION PANELon Albumin [Mass/Vol] 4.0 g/dL Normal 3.4-5.1 [facility] Comment on above: Performed By: #### Meenu Trammell8, HEPATIC #### S PATH[facility] LAB[facility]ATORY [address] [place] [address], ALK 79 IU/L Normal 40-200 [facility] Comment on above: Performed By: #### Meenu Mccormick, HEPATIC #### [facility] [address] [place] [address], ALT [Catalytic activity/Vol] 11 U/L Normal 7-40 [facility] Comment on above: Performed By: #### Meenu Mccormick, HEPATIC #### [facility] [address] [place] [address], AST [Catalytic activity/Vol] 20 U/L Normal 7-40 [facility] Comment on above: Performed By: #### Meenu Mccormick, HEPATIC #### [facility] [address] [place] [address], Bilirubin [Mass/Vol] 0.6 mg/dL Normal 0.1-1.5 [facility] Comment on above: Performed By: #### Meenu Mccormick, HEPATIC #### [facility] [address] [place] [address], Bilirubin.direct [Mass/Vol] 0.13 mg/dL Normal 0.10-0.30 [facility] Comment on above: Performed By: #### Meenu Mccormick, HEPATIC #### [facility] [address] [place] [address], Protein [Mass/Vol] 6.4 g/dL Normal 5.7-8.1 [facility] Comment on above: Performed By: #### Meenu Mccormick, HEPATIC #### [facility] [address] [place] [address], HIGH SENSITIVITY TROPONIN Io n 05-16-2022 HS TROPONIN I 319 ng/L Critically high <=15 [facility] Comment on above: Order Comment: High Sensitivity Cardiac Troponin I (hsTnI) assay has replaced the conventional troponin assay at [facility]. All results are reported in whole numbers representing ng/L. Repeat test times for ruling out acute coronary syndrome (ACS) are every 2 hours instead of every 6-8 hours. Ndrgo-wy-xbqd conventional troponin (I-stat) will remain available in the [facility] [place] [facility] ??? results obtained by different labs [...] #### H STRP #### [facility] [address] [place] [address], [id number] HS TROPONIN I 475 ng/L Critically high <=15 [facility] Comment on above: Order Comment: High Sensitivity Cardiac Troponin I (hsTnI) assay has replaced the conventional troponin assay at [facility].All results are reported in whole numbers representing ng/L.Repeat test times for ruling out acute coronary syndrome (ACS) are every 2 hours instead of every 6-8 hours.Rzqkw-pw-fdca conventional troponin (I-stat) will remain available in the [facility] [place] [facility] ??? results obtained by different labs [...] value in 2 hours depending on risk [id number] ng/L or greater??? concern for ACS or [...] C H8, HEPATIC #### [facility] [address] [place] [address], [phone] HS TROPONIN I 433 ng/L Critically high <=15 [facility] Comment on above: Order Comment: High Sensitivity Cardiac Troponin I (hsTnI) assay has replaced the conventional troponin assay at [facility].All results are reported in whole numbers representing ng/L.Repeat test times for ruling out acute coronary syndrome (ACS) are every 2 hours instead of every 6-8 hours.Wpycq-aw-zljj conventional troponin (I-stat) will remain available in the [facility] [place] [facility] ??? results obtained by different labs [...] value in 2 hours depending on risk kqljhieupy79 ng/L or greater??? concern for ACS or [...] Performed By: #### H STRP ####[facility] [id number] [place], [address] HS TROPONIN I 714 ng/L Critically high <=15 [facility] Comment on above: Order Comment: High Sensitivity Cardiac Troponin I (hsTnI) assay has replaced the conventional troponin assay at [facility].All results are reported in whole numbers representing ng/L.Repeat test times for ruling out acute coronary syndrome (ACS) are every 2 hours instead of every 6-8 hours.Gbtnw-jc-jxdk conventional troponin (I-stat) will remain available in the [facility] [place] [facility] ??? results obtained by different labs [...] value in 2 hours depending on risk rvafoojypl27 ng/L or greater??? concern for ACS or [...] 2 points). Performed By: #### M Yadi, CH8 #### [facility] [address] [place] [address], [phone] HS TROPONIN I 706 ng/L Critically high <=15 [facility] Comment on above: Order Comment: High Sensitivity Cardiac Troponin I (hsTnI) assay has replaced the conventional troponin assay at [facility].All results are reported in whole numbers representing ng/L.Repeat test times for ruling out acute coronary syndrome (ACS) are every 2 hours instead of every 6-8 hours.Rdyzc-gq-dkek conventional troponin (I-stat) will remain available in the [facility] [place] [facility] ??? results obtained by different labs [...] value in 2 hours depending on risk aqjptidtdr77 ng/L or greater??? concern for ACS or [...] H8, HEPATIC #### [facility] [address] [place], [address] LACTATE WITH REPEAT EDon CR LACT 1.8 mmol/L Normal 0.5-2.0 [facility] Comment on above: Performed By: #### C H8, HEPATIC #### [facility] [address] [place], [place], PARTIAL THROMBOPLASTIN TIMEo n 05-16-2022 aPTT Coag (Bld) [Time] 55 s High 25-37 [facility] Comment on above: Performed By: #### C H8, HEPATIC #### [facility] [address] [place], [place], PROTHROMBIN TIME AND INRon 0 05-16-2022 INR Coag (PPP) [Relative time] 1.10 {INR} Normal 0.90-1.10 [facility] Comment on above: Performed By: #### C H8, HEPATIC #### [facility] [address] [place], [place], PT Coag (PPP) [Time] 12.4 s Normal 9.7-12.9 [facility] Comment on above: Performed By: #### C H8, HEPATIC #### [facility] [address] [place], [place], Procedureson 05-16-2022 Master Planner Authentication Interface Message Text Transthoracic Echocardiographic Report Name: RYLIE GARRETT Interpreting LETITIA ELKINS MD Physician: : [id number] Referring JANNETH SAGE Physician: Age: 66 Saw Runner: Laina Mora [facility] Exam Date: 05/16/2022 Fellow: 11:11 AM CVT: [...] Doctor's order(s) verified. Patient's preferred language is Serbian . Verbal consent for left heart echo [...] physician) on 05/16/2022 12:03 PM Normal [facility] Progress Noteson 05-16-2022 Master Planner Authentication Interface Message Text [id number] notified of critical Troponin value of 475. read back critical results. New orders not received. Normal [facility] Master Planner Authentication Interface Message Text [facility] DIVISION OF ACUTE CARE SURGERY ---- GENERAL INFORMATION --- EMERGENCY GENERAL SURGERY NOTE Patient Name: Gerry Victoria Admission Date: 05/16/2022 Patient seen and examined on 05/16/2022 -- INTERVAL HISTORY/EVENTS Background Narrative: Gerry Victoria is a 66 year old female with PMH of hypertension, RLS, GERD, and h/o paroxysmal SVT who presented to [facility] with epigastric pain with nausea and vomiting. Patient describes onset of pain on prior day that has increased since then. Shortly after onset of pain, patient experienced nausea and persistent vomiting, now unable to tolerate PO intake. Denies fevers, chills. She presented to [facility] where EKG demonstrated 'hyperacute T waves' in multiple leads without evidence of STEMI. Troponin originally 139, then 381 on repeat. CTA was performed and did not reveal dissection or PE. CT did demonstrate acute inflammation of the gallbladder with a stone at the neck. A central line was placed for resuscitation purposes and the patient was transferred to [facility] for further evaluation. Prior to transfer, lab work without leukocytosis (10.7) and LFTs/Lipase without abnormality. ACS consulted upon arrival to [facility] for cholecystitis. She was admitted to the SDU for telemetry under EGS. Hospital Course/Procedures: 05/16/2022: Transferred from [facility] ED with cholecystitis, up-trending troponin, and unclear [...] fr (more content not included)... Normal [facility] TYPE AND SCREENon 05-16-2022 ABO and Rh group Nom (Bld) Blood group A Rh(D) positive Normal [facility] Comment on above: Performed By: #### T S #### [facility] [address] [place] [address], ABO and Rh group Nom (Bld) No Previous Results Normal [facility] Comment on above: Performed By: #### T S #### [facility] [address] [place], [place], ABSC INT Negative Normal [facility] Comment on above: Performed By: #### T S #### [facility] [address] [place], [place], [place] LIVER/GALL BLADDER/PANCRE ASon 05-16-2022 US [...] significant biliary dilatation. MACRO: None Normal [facility] XR CHEST 1 VIEW AP OR [...] other acute process. MACRO: None Normal [facility] XR chest 1V portableon 05-16 XR chest 1V portable [facility] [place] [address] XRay Report Signed Patient: Gerry Victoria MR#: [id number] 10 : 1955 Acct:[id number] Age/Sex: 66 / F ADM Date: 05/15/22 Loc: ER Room: Type: [facility] ER Attending Dr: Copies to: Keith Griffith [...] Aditya Hodge M.D.05/16/2022 9:24 AM Dictation Location: [place] [address] Transcribed By: [facility] 05/16/22923 Dictated By: Aditya Hodge II, MD 05/16/22922 Signed By: 05/16/22923 [facility] Activated partial thrombopla stin time (aPTT) in platelet poor plasma by coagulation aOrdered By: Keith Griffith on 05-15-2022 aPTT Coag (PPP) [Time] 29.6 s 25.1-36.5 [facility] Albumin [Mass/volume] in Ser um or PlasmaOrdered By: Keith Griffith on 05-15-2022 Albumin [Mass/Vol] 4.4 g/dL 3.2-5.5 [facility] B-Type Natriuretic Peptideon 05-15-2022 Natriuretic peptide B (Bld) [Mass/Vol] 365.0 pg/mL High 5-100 [facility] Comment on above: Result Comment: PERF ORMED BY: [facility] [address] [place] [address] PATHOLOGIST BODY ENGINEER WILDER BOTELLO M.D. Performed By: #### B MP, CBC, LIPASE, HEPATIC #### [facility] [address] Bacterial blood cultureOrder ed By: Keith Griffith on 05-15-2022 Bacteria identified Cx Nom (Bld) NO GROWTH 5 DAYS [facility] Basic Metabolic Panelon 04-27 Anion gap [Moles/Vol] 13.5 mmol/L Normal 6.0-15.0 [facility] Comment on above: Performed By: #### B MP, CBC, LIPASE, HEPATIC #### [facility] [address] Calcium [Mass/Vol] 8.9 mg/dL Normal 8.2-10.2 [facility] Comment on above: Performed By: #### B MP, CBC, LIPASE, HEPATIC #### [facility] [address] [place] [address] [place] Chloride [Moles/Vol] 98 mmol/L Normal 95-114 [facility] Comment on above: Performed By: #### B MP, CBC, LIPASE, HEPATIC #### [facility] [address] [place] [address] [place] CO2 [Moles/Vol] 25.7 mmol/L Normal 22.0-30.0 [facility] Comment on above: Performed By: #### B MP, CBC, LIPASE, HEPATIC #### [facility] [address] [place] [address] [place] Creatinine [Mass/Vol] 0.98 mg/dL Normal 0.44-1.03 [facility] Comment on above: Performed By: #### B MP, CBC, LIPASE, HEPATIC #### [facility] [address] [place] [address] [place] Creatinine Clr Calc Pharmacy 51.97 [facility] Comment on above: Performed By: #### B MP, CBC, LIPASE, HEPATIC #### [facility] [address] Estimated GFR ( Unique > 60 [facility] Comment on above: Result Comment: GFR estimated reference range: According to KDOQI guidelines, <60 ml/min/1.73m2 is sufficient to diagnose a patient with chronic kidney disease. Performed By: #### B MP, CBC, LIPASE, HEPATIC #### [facility] [address] Estimated GFR (Non- Am 56 [facility] Comment on above: Performed By: #### B MP, CBC, LIPASE, HEPATIC #### [facility] [address] Glucose [Mass/Vol] 126 mg/dL High 70-100 [facility] Comment on above: Result Comment: [place] om Glucose Reference Range is dependent on time and content of last meal. Glucose of more than 200 mg/dL in a nonstressed, ambulatory subject supports the diagnosis of Diabetes Mellitus. ADA recommended reference range Performed By: #### B MP, CBC, LIPASE, HEPATIC #### [facility] [address] [place] [address] [place] Potassium [Moles/Vol] 3.2 mmol/L Low 3.5-5.1 [facility] Comment on above: Performed By: #### B MP, CBC, LIPASE, HEPATIC #### [facility] [address] [place] [address] [place] Sodium [Moles/Vol] 134 mmol/L Low 136-146 [facility] Comment on above: Performed By: #### B MP, CBC, LIPASE, HEPATIC #### [facility] [address] Urea nitrogen [Mass/Vol] 7 mg/dL Low 9-23 [facility] Comment on above: Performed By: #### B MP, CBC, LIPASE, HEPATIC #### [facility] [address] Basophils Auto (Bld) [#/Vol] Ordered By: Keith Griffith on 05-15-2022 Basophils (Bld) [#/Vol] 0.1 10*3/uL 0.0-0.2 [facility] Basophils/100 WBC Auto (Bld) Ordered By: Keith Griffith on 05-15-2022 Basophils/100 WBC (Bld) 0.6 % . [facility] Bilirubin Test strip Ql (U)O rdered By: Keith Griffith on 05-15-2022 Bilirubin Ql (U) Negative Negative [facility] CT abdomen pelvis w conon CT abdomen pelvis w con [facility] [place] [address] [place] [address] CT Scan Report Signed Patient: Gerry Victoria MR#: [id number] 10 : 1955 Acct:[id number] Age/Sex: 66 / F ADM Date: 05/15/22 Loc: ER Room: Type: [facility] ER Attending Dr: Copies to: Keith Griffith [...] ? Impression dictated by: Nicholas Ann Jr., DJackOJack05/15/2022 6:59 PM Dictation Location: [place] [address] Transcribed By: [facility] 05/15/221858 Dictated By: Nicholas Ann Jr, DO 05/15/221854 Signed By: 05/15/221858 Normal [facility] Color Auto (U)Ordered By: Jesse Griffith on 05-15-2022 Color (U) Yellow Yellow [facility] Complete Blood Count Auto Di ffon 05-15-2022 Basophils (Bld) [#/Vol] 0.1 10*3/uL Normal 0.0-0.2 [facility] Comment on above: Result Comment: PERF ORMED BY: [place] [id number] PATHOLOGIST BODY ENGINEER WILDER BOTELLO M.D. Performed By: #### B MP, CBC, LIPASE, HEPATIC #### [address] Basophils/100 WBC (Bld) 0.6 % Normal . [facility] Comment on above: Performed By: #### B MP, CBC, LIPASE, HEPATIC #### [address] Eosinophils (Bld) [#/Vol] 0.0 10*3/uL Normal 0.0-0.45 [facility] Comment on above: Performed By: #### B MP, CBC, LIPASE, HEPATIC #### [address] Eosinophils/100 WBC (Bld) 0.3 % Normal . [facility] Comment on above: Performed By: #### B MP, CBC, LIPASE, HEPATIC #### [address] Erythrocyte distribution width (RBC) [Ratio] 15.2 % Normal 11.9-15.3 [facility] Comment on above: Performed By: #### B MP, CBC, LIPASE, HEPATIC #### [address] Hematocrit (Bld) [Volume fraction] 42.8 % Normal 34.0-46.4 [facility] Comment on above: Performed By: #### B MP, CBC, LIPASE, HEPATIC #### [address] Hemoglobin (Bld) [Mass/Vol] 14.1 g/dL Normal 11.8-15.4 [facility] Comment on above: Performed By: #### B MP, CBC, LIPASE, HEPATIC #### [address] Lymphocytes (Bld) [#/Vol] 0.9 10*3/uL Low 1.00-4.8 [facility] Comment on above: Performed By: #### B MP, CBC, LIPASE, HEPATIC #### [address] Lymphocytes/100 WBC (Bld) 8.6 % Normal . [facility] Comment on above: Performed By: #### B MP, CBC, LIPASE, HEPATIC #### [address] MCH (RBC) [Entitic mass] 27.4 pg Normal 24.7-34.3 [facility] Comment on above: Performed By: #### B MP, CBC, LIPASE, HEPATIC #### [facility] [address] MCV (RBC) [Entitic vol] 83.0 fL Normal 80-100 [facility] Comment on above: Performed By: #### B MP, CBC, LIPASE, HEPATIC #### [address] Mean Corpuscular HGB Conc 33.0 g/dL Normal 32.0-35.0 [facility] Comment on above: Performed By: #### B MP, CBC, LIPASE, HEPATIC #### [address] Monocytes (Bld) [#/Vol] 0.5 10*3/uL Normal 0.0-0.8 [facility] Comment on above: Performed By: #### B MP, CBC, LIPASE, HEPATIC #### [address] Monocytes/100 WBC (Bld) 15.42 % Normal 0.00-20.00 [facility] Comment on above: Performed By: #### B MP, CBC, LIPASE, HEPATIC #### [address] Monocytes/100 WBC (Bld) 4.2 % Normal . [facility] Comment on above: Performed By: #### B MP, CBC, LIPASE, HEPATIC #### [address] Neutrophils (Bld) [#/Vol] 9.3 10*3/uL High 1.8-7.7 [facility] Comment on above: Performed By: #### B MP, CBC, LIPASE, HEPATIC #### [address] Neutrophils/100 WBC (Bld) 86.3 % Normal . [facility] Comment on above: Performed By: #### B MP, CBC, LIPASE, HEPATIC #### [address] NRBC% 0.1 /100{WBC} Normal 0-0.5 [facility] Comment on above: Performed By: #### B MP, CBC, LIPASE, HEPATIC #### [facility] [address] Platelet mean volume (Bld) [Entitic vol] 7.6 fL Normal 6.3-10.7 [facility] Comment on above: Performed By: #### B MP, CBC, LIPASE, HEPATIC #### [facility] [address] Platelets (Bld) [#/Vol] 332 10*3/uL Normal 150-450 [facility] Comment on above: Performed By: #### B MP, CBC, LIPASE, HEPATIC #### [facility] [address] RBC (Bld) [#/Vol] 5.16 10*6/uL High 3.60-5.00 [facility] Comment on above: Performed By: #### B MP, CBC, LIPASE, HEPATIC #### [address] WBC (Bld) [#/Vol] 10.7 10*3/uL Normal 3.8-11.6 [facility] Comment on above: Performed By: #### B MP, CBC, LIPASE, HEPATIC #### [address] Creatine Kinaseon 05-15-2022 CK [Catalytic activity/Vol] 94 U/L Normal 22-269 [facility] Comment on above: Performed By: #### B MP, CBC, LIPASE, HEPATIC #### [address] Creatine kinase [Enzymatic a ctivity/volume] in Serum or PlasmaOrdered By: Keith Griffith on 05-15-2022 CK [Catalytic activity/Vol] 94 U/L 22-269 [facility] Creatine kinase.MB [Mass/vol ume] in Serum or PlasmaOrdered By: Keith Griffith on 05-15-2022 CK.MB [Mass/Vol] 3.1 ng/mL 0.6-6.3 [facility] Creatinine Kinase MBon 05-15 CK.MB [Mass/Vol] 3.1 ng/mL Normal 0.6-6.3 [facility] Comment on above: Performed By: #### B MP, CBC, LIPASE, HEPATIC #### [facility] [address] [place] [id number] [place] CKMB Relative Index 3.2 % High 0.00-2.50 [facility] Comment on above: Performed By: #### B MP, CBC, LIPASE, HEPATIC #### [facility] [address] Creatinine and Glomerular fi ltration rate.predicted panel (S/P/Bld)Ordered By: Keith Griffith on 05-15-2022 Creatinine [Mass/Vol] 0.98 mg/dL 0.44-1.03 [facility] Direct bilirubin measurement Ordered By: Keith Griffith on 05-15-2022 Bilirubin.direct [Mass/Vol] 0.1 mg/dL 0.0-0.4 [facility] ECG 12 lead ECGon 05-15-2022 ECG 12 lead ECG [facility] [place] [address] [place] [address] Electrocardiograph Report Signed Patient: Gerry Victoria MR#: [id number] 10 : 1955 Acct:[id number] Age/Sex: 66 / F ADM Date: 05/15/22 Loc: ER Room: Type: [facility] ER Attending Dr: Ordering Provider: Keith Griffith [...] AVF, V3-V6 Confirmed by Connie Cote DO ([id number]) on 05/16/2022 7:08:50 AM Referred By: Electronically Signed By:Connie Cote DO Transcribed By: MUS Signed By Connie Cote DO 0708 [facility] ECG 12 lead ECG [facility] [place] [id number] Electrocardiograph Report Signed Patient: Gerry Victoria MR#: [id number] 10 : 1955 Acct:[id number] Age/Sex: 66 / F ADM Date: 05/15/22 Loc: ER Room: Type: [facility] ER Attending Dr: Ordering Provider: Keith Griffith [...] and V3-V6 Confirmed by Connie Cote DO ([id number]) on 05/16/2022 7:09:34 AM Referred By: Electronically Signed By:Connie Cote DO Transcribed By: MUS Signed By Connie Cote DO 0709 [facility] ECG 12 lead ECG [facility] [place] [id number] Electrocardiograph Report Signed Patient: Gerry Victoria MR#: [id number] 10 : 1955 Acct:[id number] Age/Sex: 66 / F ADM Date: 05/15/22 Loc: ER Room: Type: [facility] ER Attending Dr: Ordering Provider: Keith Griffith [...] sinus rhythm Confirmed by Connie Cote DO ([id number]) on 05/16/2022 7:09:47 AM Referred By: Electronically Signed By:Connie Cote DO Transcribed By: MUS Signed By Connie Cote DO 0709 Normal [facility] Eosinophils Auto (Bld) [#/Vo l]Ordered By: Keith Griffith on 05-15-2022 Eosinophils (Bld) [#/Vol] 0.0 10*3/uL 0.0-0.45 [facility] Eosinophils/100 WBC Auto (Bl d)Ordered By: Keith Griffith on 05-15-2022 Eosinophils/100 WBC (Bld) 0.3 % . [facility] Erythrocyte distribution wid th Auto (RBC) [Ratio]Ordered By: Keith Griffith on 05-15-2022 Erythrocyte distribution width (RBC) [Ratio] 15.2 % 11.9-15.3 [facility] Estimated glomerular filtrat ion rate (GFR) non- AmericanOrdered By: Keith Griffith on 05-15-2022 GFR/1.73 sq M.predicted among non-blacks MDRD (S/P/Bld) [Vol rate/Area] 56 mL/Min [facility] Globulin Calc (S) [Mass/Vol] Ordered By: Keith Griffith on 05-15-2022 Globulin (S) [Mass/Vol] 3.6 g/dL [facility] Hematocrit Auto (Bld) [Volum e fraction]Ordered By: Keith Griffith on 05-15-2022 Hematocrit (Bld) [Volume fraction] 42.8 % 34.0-46.4 [facility] Hemoglobin [Mass/volume] in BloodOrdered By: Keith Griffith on 05-15-2022 Hemoglobin (Bld) [Mass/Vol] 14.1 g/dL 11.8-15.4 [facility] Hepatic Panelon 05-15-2022 Albumin [Mass/Vol] 4.4 g/dL Normal 3.2-5.5 [facility] Comment on above: Performed By: #### B MP, CBC, LIPASE, HEPATIC #### [facility] [address] Albumin/Globulin [Mass ratio] 1.2 {ratio} Normal [facility] Comment on above: Performed By: #### B MP, CBC, LIPASE, HEPATIC #### [address] ALP [Catalytic activity/Vol] 92 U/L Normal 32-92 [facility] Comment on above: Performed By: #### B MP, CBC, LIPASE, HEPATIC #### [facility] [address] [place] [address] ALT [Catalytic activity/Vol] 17 U/L Normal 10-60 [facility] Comment on above: Performed By: #### B MP, CBC, LIPASE, HEPATIC #### [facility] [address] [place] [address] AST [Catalytic activity/Vol] 26 U/L Normal 10-42 [facility] Comment on above: Performed By: #### B MP, CBC, LIPASE, HEPATIC #### [facility] [address] [place] [address] Bilirubin [Mass/Vol] 0.6 mg/dL Normal 0.3-1.2 [facility] Comment on above: Performed By: #### B MP, CBC, LIPASE, HEPATIC #### [facility] [address] [place] [address] Bilirubin,Indirect 0.5 mg/dL Normal [facility] Comment on above: Performed By: #### B MP, CBC, LIPASE, HEPATIC #### [facility] [address] [place] [address] Bilirubin.indirect [Mass/Vol] 0.1 mg/dL Normal 0.0-0.4 [facility] Comment on above: Performed By: #### B MP, CBC, LIPASE, HEPATIC #### [facility] [address] [place] [address] Globulin (S) [Mass/Vol] 3.6 g/dL Normal [facility] Comment on above: Performed By: #### B MP, CBC, LIPASE, HEPATIC #### [facility] [address] [place] [address] Protein [Mass/Vol] 8.0 g/dL High 6.1-7.9 [facility] Comment on above: Performed By: #### B MP, CBC, LIPASE, HEPATIC #### [facility] [address] Ketones Auto test strip (U) [Mass/Vol]Ordered By: Keith Griffith on 05-15-2022 Ketones (U) [Mass/Vol] Negative Negative [facility] Laboratory - Chemistry and C hemistry - challengeOrdered By: Keith Griffith on 05-15-2022 Lipase [Catalytic activity/Vol] 23.0 U/L [facility] Natriuretic peptide B (Bld) [Mass/Vol] 365.0 pg/mL 5100 [facility] Laboratory - CoagulationOrde red By: Keith Griffith on 05-15-2022 PT Coag (PPP) [Time] 10.7 s 9.0-12.9 [facility] Lactic Acidon 05-15-2022 Lactate [Moles/Vol] 1.5 mmol/L Normal 0.5-2.2 [facility] Comment on above: Result Comment: PERF ORMED BY: [place] [id number] PATHOLOGIST BODY ENGINEER WILDER BOTELLO M.D. Performed By: #### B MP, CBC, LIPASE, HEPATIC #### [facility] [address] [place] [address] Leukocytes [#/volume] correc poly for nucleated erythrocytes in Blood by Automated counOrdered By: Keith Griffith on 05-15-2022 WBC corrected for nucl RBC Auto (Bld) [#/Vol] 10.7 10*3/uL 3.8-11.6 [facility] Lipaseon 05-15-2022 Lipase [Catalytic activity/Vol] 23.0 U/L Normal [facility] Comment on above: Result Comment: PERF ORMED BY: [place] [id number] PATHOLOGIST BODY ENGINEER WILDER BOTELLO M.D. Performed By: #### B MP, CBC, LIPASE, HEPATIC #### [facility] [address] Lymphocytes Auto (Bld) [#/Vo l]Ordered By: Keith Griffith on 05-15-2022 Lymphocytes (Bld) [#/Vol] 0.9 10*3/uL 1.00-4.8 [facility] Lymphocytes/100 WBC Auto (Bl d)Ordered By: Keith Griffith on 05-15-2022 Lymphocytes/100 WBC (Bld) 8.6 % . [facility] MCH Auto (RBC) [Entitic mass ]Ordered By: Keith Griffith on 05-15-2022 MCH (RBC) [Entitic mass] 27.4 pg 24.7-34.3 [facility] MCHC Auto (RBC) [Mass/Vol]Or dered By: Keith Griffith on 05-15-2022 MCHC (RBC) [Mass/Vol] 33.0 g/dL 32.0-35.0 [facility] MCV Auto (RBC) [Entitic vol] Ordered By: Keith Griffith on 05-15-2022 MCV (RBC) [Entitic vol] 83.0 fL 80-100 [facility] Monocyte distribution width [Entitic volume] in Blood by AutomatedOrdered By: Keith Griffith on 05-15-2022 Monocyte distribution width Auto (Bld) [Entitic vol] 15.42 % 0.00-20.00 [facility] Monocytes Auto (Bld) [#/Vol] Ordered By: Keith Griffith on 05-15-2022 Monocytes (Bld) [#/Vol] 0.5 10*3/uL 0.0-0.8 [facility] Monocytes/100 WBC Auto (Bld) Ordered By: Keith Griffith on 05-15-2022 Monocytes/100 WBC (Bld) 4.2 % . [facility] Neutrophils Auto (Bld) [#/Vo l]Ordered By: Keith Griffith on 05-15-2022 Neutrophils (Bld) [#/Vol] 9.3 10*3/uL 1.8-7.7 [facility] Neutrophils/100 WBC Auto (Bl d)Ordered By: Keith Griffith on 05-15-2022 Neutrophils/100 WBC (Bld) 86.3 % . [facility] Nitrite Test strip Ql (U)Ord ered By: Keith Griffith on 05-15-2022 Nitrite Ql (U) Negative Negative [facility] No Panel InformationOrdered By: Keith Griffith on 05-15-2022 Estimated GFR () > 60 mL/Min [facility] Comment on above: GFR estimated refere nce range: According to KDOQI guidelines, <60 ml/min/1.73m2 is sufficient to diagnose a patient with chronic kidney disease. Pharmacy Creatinine Clearance (Chem 51.97 [facility] Nucleated erythrocytes [Pres ence] in Blood by Automated countOrdered By: Keith Griffith on 05-15-2022 Nucleated RBC Auto Ql (Bld) 0.1 /100{WBC} 0-0.5 [facility] Partial Thromboplastin Timeo n 05-15-2022 aPTT Coag (Bld) [Time] 29.6 s Normal 25.1-36.5 [facility] Comment on above: Result Comment: PERF ORMED BY: [place] [id number] PATHOLOGIST BODY ENGINEER WILDER BOTELLO M.D. Performed By: #### B MP, CBC, LIPASE, HEPATIC #### [address] Platelet mean volume Auto (B ld) [Entitic vol]Ordered By: Keith Griffith on 05-15-2022 Platelet mean volume (Bld) [Entitic vol] 7.6 fL 6.3-10.7 [facility] Platelet poor plasma interna tional normalized ratio (INR) by coagulation assay (relatOrdered By: Keith Griffith on 05-15-2022 INR Coag (PPP) [Relative time] 0.9 {INR} [facility] Comment on above: INR Therapeutic Rang [...] 05-15-2022 Platelets (Bld) [#/Vol] 332 10*3/uL 150-450 [facility] Protein Auto test strip (U) [Mass/Vol]Ordered By: Keith Griffith on 05-15-2022 Protein (U) [Mass/Vol] Negative Negative [facility] Protein [Mass/volume] in Ser um or PlasmaOrdered By: Keith Griffith on 05-15-2022 Protein [Mass/Vol] 8.0 g/dL 6.1-7.9 [facility] Prothrombin Time INRon 05-15 INR Coag (PPP) [Relative time] 0.9 {INR} Normal [facility] Comment on above: Result Comment: INR [...] #### B MP, CBC, LIPASE, HEPATIC #### [facility] [address] PT Coag (PPP) [Time] 10.7 s Normal 9.0-12.9 [facility] Comment on above: Performed By: #### B MP, CBC, LIPASE, HEPATIC #### [facility] [address] RBC Auto (Bld) [#/Vol]Ordere d By: Keith Griffith on 05-15-2022 RBC (Bld) [#/Vol] 5.16 10*6/uL 3.60-5.00 [facility] Serum or plasma alanine kirkpatrick otransferase measurement without P-5'-P (enzymatic activiOrdered By: Keith Griffith on 05-15-2022 ALT No additional P-5'-P [Catalytic activity/Vol] 17 U/L 10-60 [facility] Serum or plasma albumin/glob ulin mass ratioOrdered By: Keith Griffith on 05-15-2022 Albumin/Globulin [Mass ratio] 1.2 {ratio} [facility] Serum or plasma alkaline kami sphatase measurement (enzymatic activity/volume)Ordered By: Keith Griffith on 05-15-2022 ALP [Catalytic activity/Vol] 92 U/L 32-92 [facility] Serum or plasma anion gap de terminationOrdered By: Keith Griffith on 05-15-2022 Anion gap [Moles/Vol] 13.5 mmol/L 6.0-15.0 [facility] Serum or plasma aspartate am inotransferase measurement (enzymatic activity/volume)Ordered By: Keith Griffith on 05-15-2022 AST [Catalytic activity/Vol] 26 U/L 10-42 [facility] Serum or plasma calcium ventura urement (mass/volume)Ordered By: Keith Griffith on 05-15-2022 Calcium [Mass/Vol] 8.9 mg/dL 8.2-10.2 [facility] Serum or plasma chloride alfie surement (moles/volume)Ordered By: Keith Griffith on 05-15-2022 Chloride [Moles/Vol] 98 mmol/L 95-114 [facility] Serum or plasma creatine kin ase MB (CKMB)/total creatine kinase (CK) ratio by calculaOrdered By: Keith Griffith on 05-15-2022 CK.MB Calc [Catalytic fraction] 3.2 % 0.00-2.50 [facility] Serum or plasma glucose ventura urement (mass/volume)Ordered By: Keith Griffith on 05-15-2022 Glucose [Mass/Vol] 126 mg/dL 70-100 [facility] Comment on above: ADA recommended refe rence rangeRandom Glucose Reference Range is dependent on time and content of last meal. Glucose of more than 200 mg/dL in a nonstressed, ambulatory subject supports the diagnosis of Diabetes Mellitus. Serum or plasma non-glucuron idated bilirubin measurement (mass/volume)Ordered By: Keith Griffith on 05-15-2022 Bilirubin.indirect [Mass/Vol] 0.5 mg/dL [facility] Serum or plasma potassium me asurement (moles/volume)Ordered By: Keith Griffith on 05-15-2022 Potassium [Moles/Vol] 3.2 mmol/L 3.5-5.1 [facility] Serum or plasma sodium measu rement (moles/volume)Ordered By: Keith Griffith on 05-15-2022 Sodium [Moles/Vol] 134 mmol/L 136-146 [facility] Serum or plasma total biliru bin measurement (mass/volume)Ordered By: Keith Griffith on 05-15-2022 Bilirubin [Mass/Vol] 0.6 mg/dL 0.3-1.2 [facility] Serum or plasma total carbon dioxide measurement (moles/volume)Ordered By: Keith Griffith on 05-15-2022 CO2 [Moles/Vol] 25.7 mmol/L 22.0-30.0 [facility] Serum or plasma urea nitroge n measurement (mass/volume)Ordered By: Keiht Griffith on 05-15-2022 Urea nitrogen [Mass/Vol] 7 mg/dL 9- [facility] Specific gravity Auto test s trip (U) [Rel density]Ordered By: Keith Griffith on 05-15-2022 Specific gravity (U) [Rel density] 1.045 1.001-1.03 0 [facility] Troponin I High Sensitivityo n 05-15-2022 Troponin I High Sensitivity 381 pg/mL Off scale high 0-15 [facility] Comment on above: Result Comment: Crit ical value result called at 2153 on 05/15/22 PERFORMED BY: [place] [id number] PATHOLOGIST BODY ENGINEER WILDER BOTELLO M.D. Performed By: #### H S TROP #### [facility] [address] [place], [place] [id number] [facility] Troponin I High Sensitivity 139 pg/mL Off scale high 0-15 [facility] Comment on above: Result Comment: Crit ical value result called at 1908 on 05/15/22 PERFORMED BY: [place] [id number] PATHOLOGIST BODY ENGINEER WILDER BOTELLO M.D. Performed By: #### B MP, CBC, LIPASE, HEPATIC #### [facility] [address] [place] [id number] [facility] Troponin I.cardiac [Mass/vol ume] in Serum or Plasma by High sensitivity methodOrdered By: Keith Griffith on 05-15-2022 Troponin I.cardiac High sensitivity method [Mass/Vol] 381 pg/mL 0-15 [facility] Comment on above: Critical valueresult calledat 2153 on 05/15/22 Urinalysison 05-15-2022 Appearance (U) Clear Normal Clear [facility] Comment on above: Order Comment: Name Collection Type:: Straight Catheter Performed By: #### B MP, CBC, LIPASE, HEPATIC #### [facility] [address] [place] [address] [place] Bilirubin,Urine Negative Normal Negative [facility] Comment on above: Order Comment: Name Collection Type:: Straight Catheter Performed By: #### B MP, CBC, LIPASE, HEPATIC #### [facility] [address] [place] [address] [place] Color (U) Yellow Normal Yellow [facility] Comment on above: Order Comment: Name Collection Type:: Straight Catheter Performed By: #### B MP, CBC, LIPASE, HEPATIC #### [facility] [address] [place] [address] [place] Glucose Ql (U) Normal Normal Normal [facility] Comment on above: Order Comment: Name Collection Type:: Straight Catheter Performed By: #### B MP, CBC, LIPASE, HEPATIC #### [facility] [address] [place], [place] [phone] [place] Ketones Ql (U) Negative Normal Negative [facility] Comment on above: Order Comment: Name Collection Type:: Straight Catheter Performed By: #### B MP, CBC, LIPASE, HEPATIC #### [facility] [address] [place] [phone] [place] Leukocyte esterase Test strip Ql (U) Negative Normal Negative [facility] Comment on above: Order Comment: Name Collection Type:: Straight Catheter Performed By: #### B MP, CBC, LIPASE, HEPATIC #### [facility] [address] [place] [id number] [place] Nitrite,Urine Negative Normal Negative [facility] Comment on above: Order Comment: Name Collection Type:: Straight Catheter Performed By: #### B MP, CBC, LIPASE, HEPATIC #### [place] [address] [place] Occult Blood,Urine Negative Normal Negative [facility] Comment on above: Order Comment: Name Collection Type:: Straight Catheter Result Comment: PERF ORMED BY: [place] [id number] PATHOLOGIST BODY ENGINEER WILDER BOTELLO M.D. Performed By: #### B MP, CBC, LIPASE, HEPATIC #### [address] pH (U) 7.0 [pH] Normal 5.0-9.0 [facility] Comment on above: Order Comment: Name Collection Type:: Straight Catheter Performed By: #### B MP, CBC, LIPASE, HEPATIC #### [address] Protein,Urine Negative Normal Negative [facility] Comment on above: Order Comment: Name Collection Type:: Straight Catheter Performed By: #### B MP, CBC, LIPASE, HEPATIC #### [address] Specificy [place],Urine 1.045 High 1.001-1.03 0 [facility] Comment on above: Order Comment: Name Collection Type:: Straight Catheter Performed By: #### B MP, CBC, LIPASE, HEPATIC #### [place] [address] [place] Urobilinogen,Urine Normal Normal Normal [facility] Comment on above: Order Comment: Name Collection Type:: Straight Catheter Performed By: #### B MP, CBC, LIPASE, HEPATIC #### [address] Urine clarity by refractomet ry automatedOrdered By: Keith Griffith on 05-15-2022 Clarity Refractometry automated (U) Clear Clear [facility] Urine glucose measurement by automated test strip (mass/volume)Ordered By: Keith Griffith on 05-15-2022 Glucose Auto test strip (U) [Mass/Vol] Normal mg/dL Normal [facility] Urine hemoglobin detection b y automated test stripOrdered By: Keith Griffith on 05-15-2022 Hemoglobin Auto test strip Ql (U) Negative Negative [facility] Urine lactic acid measuremen tOrdered By: Keith Griffith on 05-15-2022 Lactate (U) [Moles/Vol] 1.5 mmol/L 0.5-2.2 [facility] Urine leukocyte esterase det ection by automated test stripOrdered By: Keith Griffith on 05-15-2022 Leukocyte esterase Auto test strip Ql (U) Negative Negative [facility] Urobilinogen Auto test strip (U) [Mass/Vol]Ordered By: Keith Griffith on 05-15-2022 Urobilinogen (U) [Mass/Vol] Normal mg/dL Normal [facility] WBC Auto (Bld) [#/Vol]Ordere d By: Keith Griffith on 05-15-2022 WBC (Bld) [#/Vol] 10.7 10*3/uL 3.8-11.6 [facility] XR chest 1V portableon 05-15 XR chest 1V portable [facility] [place] [address] XRay Report Signed Patient: Gerry Victoria MR#: [id number] 10 : 1955 Acct:[id number] Age/Sex: 66 / F ADM Date: 05/15/22 [...] Ann Jr., D.OJack05/15/2022 5:33 PM Dictation Location: [place] [address] Transcribed By: [facility] 05/15/221732 Dictated By: Nicholas Ann Jr, DO 05/15/221731 Signed By: 05/15/221732 [facility] pH Auto test strip (U)Ordere d By: Keith Griffith on 05-15-2022 pH (U) 7.0 [pH] 5.0-9.0 [facility] XR wrist LT min 3V*on 2022 XR wrist LT min 3V* [place] [address] XRay Report Signed Patient: Gerry Victoria MR#: [id number] 10 : 1955 Acct:[id number] Age/Sex: 66 / F ADM Date: 04/06/22 Loc: ICXD Room: Type: [facility] Attending Dr: Ephraim Casanova APRN Copies to: Ephraim Casanova APRN - ER EPHRAIM CASANOVA RN, MSN Ordering Provider: EPHRAIM CASANOVA RN, MSN Date of Service: 04/06/22 XR/XR wrist LT min 3V*: radiculopathy;Left wrist pain ([id number]) XR/XR cervical spine 5V*: radiculopathy;Cervical radiculopathy CERVICAL [...] Ann Jr., D.O.04/06/2022 4:20 PM Dictation Location: [place] [address] Transcribed By: [facility] 04/06/22 162 Dictated By: Nicholas Ann Jr, 04/06/22 1618 Signed By: 04/06/22 162 [facility] Basophils Auto (Bld) [#/Vol] Ordered By: Ward Zuniga on 01-03-2022 Basophils (Bld) [#/Vol] 0.0 10*3/uL 0.0-0.2 [facility] Basophils/100 WBC Auto (Bld) Ordered By: Ward Zuniga on 01-03-2022 Basophils/100 WBC (Bld) 0.9 % . [facility] Blood hemoglobin measurement (mass/volume)Ordered By: Ward Zuniga on 01-03-2022 Hemoglobin (Bld) [Mass/Vol] 11.2 g/dL 11.8-15.4 [facility] Blood leukocytes automated c ount (number/volume)Ordered By: Ward Zuniga on 01-03-2022 WBC (Bld) [#/Vol] 4.8 10*3/uL 4.5-11.0 [facility] Body fluid albumin measureme nt (mass/volume)Ordered By: Ward Zuniga on 01-03-2022 Albumin (Body fld) [Mass/Vol] 3.6 g/dL 3.2-5.5 [facility] Cholesterol [Mass/volume] in Serum or PlasmaOrdered By: Ward Zuniga on 01-03-2022 Cholesterol [Mass/Vol] 186 mg/dL 140-200 [facility] Comment on above: Chol less than 200 m g/dl low riskChol 201-239 mg/dl borderline riskChol 240 mg/dl and greater high risk Cholesterol in LDL Calc [Mas s/Vol]Ordered By: Ward Zuniga on 01-03-2022 Cholesterol in LDL [Mass/Vol] 117 mg/dL 0-100 [facility] Comment on above: LDL ATP III CLASSIFI CATIONLDL less than 100 mg/dL OptimalLDL 100-129 mg/dL Near or above optimalLDL 130-159 mg/dL Borderline highLDL 160-189 mg/dL HighLDL greater than 189 mg/dL Very high Cholesterol in VLDL Calc [Ma ss/Vol]Ordered By: Ward Zuniga on 01-03-2022 Cholesterol in VLDL [Mass/Vol] 18 mg/dL [facility] Creatinine and Glomerular fi ltration rate.predicted panel (S/P/Bld)Ordered By: Ward Zuniga on 01-03-2022 Creatinine [Mass/Vol] 0.91 mg/dL 0.44-1.03 [facility] Eosinophils Auto (Bld) [#/Vo l]Ordered By: Ward Zuniga on 01-03-2022 Eosinophils (Bld) [#/Vol] 0.1 10*3/uL 0.0-0.45 [facility] Eosinophils/100 WBC Auto (Bl d)Ordered By: Ward Zuniga on 01-03-2022 Eosinophils/100 WBC (Bld) 2.6 % . [facility] Erythrocyte distribution wid th Auto (RBC) [Ratio]Ordered By: Ward Zuniga on 01-03-2022 Erythrocyte distribution width (RBC) [Ratio] 14.4 % 11.9-15.3 [facility] Estimated glomerular filtrat ion rate (GFR) non- AmericanOrdered By: Ward Zuniga on 01-03-2022 GFR/1.73 sq M.predicted among non-blacks MDRD (S/P/Bld) [Vol rate/Area] > 60 mL/Min [facility] Globulin Calc (S) [Mass/Vol] Ordered By: Ward Zuniga on 01-03-2022 Globulin (S) [Mass/Vol] 2.5 g/dL [facility] Hematocrit Auto (Bld) [Volum e fraction]Ordered By: Ward Zuniga on 01-03-2022 Hematocrit (Bld) [Volume fraction] 34.5 % 34.0-46.4 [facility] Laboratory - Hematology and Cell countsOrdered By: Ward Zuniga on 01-03-2022 Nucleated RBC/100 WBC (Bld) [Ratio] 0.1 % 0-0.5 [facility] Lymphocytes Auto (Bld) [#/Vo l]Ordered By: Ward Zuniga on 01-03-2022 Lymphocytes (Bld) [#/Vol] 1.6 10*3/uL 1.00-4.8 [facility] Lymphocytes/100 WBC Auto (Bl d)Ordered By: Ward Zuniga on 01-03-2022 Lymphocytes/100 WBC (Bld) 33.6 % . [facility] MCH Auto (RBC) [Entitic mass ]Ordered By: Ward Zuniga on 01-03-2022 MCH (RBC) [Entitic mass] 26.9 pg 24.7-34.3 [facility] MCHC Auto (RBC) [Mass/Vol]Or dered By: Ward Zuniga on 01-03-2022 MCHC (RBC) [Mass/Vol] 32.6 g/dL 32.0-35.0 [facility] MCV Auto (RBC) [Entitic vol] Ordered By: Ward Zuniga on 01-03-2022 MCV (RBC) [Entitic vol] 82.4 fL 80-100 [facility] Monocytes Auto (Bld) [#/Vol] Ordered By: Ward Zuniga on 01-03-2022 Monocytes (Bld) [#/Vol] 0.4 10*3/uL 0.0-0.8 [facility] Monocytes/100 WBC Auto (Bld) Ordered By: Ward Zuniga on 01-03-2022 Monocytes/100 WBC (Bld) 7.5 % . [facility] Neutrophils Auto (Bld) [#/Vo l]Ordered By: Ward Zuniga on 01-03-2022 Neutrophils (Bld) [#/Vol] 2.6 10*3/uL 1.8-7.7 [facility] Neutrophils/100 WBC Auto (Bl d)Ordered By: Ward Zuniga on 01-03-2022 Neutrophils/100 WBC (Bld) 55.4 % . [facility] No Panel InformationOrdered By: Ward Zuniga on 01-03-2022 Estimated GFR () > 60 mL/Min [facility] Comment on above: GFR estimated refere nce range: According to KDOQI guidelines, <60 ml/min/1.73m2 is sufficient to diagnose a patient with chronic kidney disease. Pharmacy Creatinine Clearance (Chem N/A [facility] Platelet mean volume Auto (B ld) [Entitic vol]Ordered By: Ward Zuniga on 01-03-2022 Platelet mean volume (Bld) [Entitic vol] 7.5 fL 6.3-10.7 [facility] Platelets Auto (Bld) [#/Vol] Ordered By: Ward Zuniga on 01-03-2022 Platelets (Bld) [#/Vol] 288 10*3/uL 150-450 [facility] Protein [Mass/volume] in Ser um or PlasmaOrdered By: Ward Zuniga on 01-03-2022 Protein [Mass/Vol] 6.1 g/dL 6.1-7.9 [facility] RBC Auto (Bld) [#/Vol]Ordere d By: Ward Zuniga on 01-03-2022 RBC (Bld) [#/Vol] 4.18 10*6/uL 3.60-5.00 [facility] Serum or plasma alanine kirkpatrick otransferase measurement without P-5'-P (enzymatic activiOrdered By: Ward Zuniga on 01-03-2022 ALT No additional P-5'-P [Catalytic activity/Vol] 12 U/L [facility] Serum or plasma albumin/glob ulin mass ratioOrdered By: Ward Zuniga on 01-03-2022 Albumin/Globulin [Mass ratio] 1.4 {ratio} [facility] Serum or plasma alkaline kami sphatase measurement (enzymatic activity/volume)Ordered By: Ward Zuniga on 01-03-2022 ALP [Catalytic activity/Vol] 65 U/L 32-92 [facility] Serum or plasma anion gap de terminationOrdered By: Ward Zungia on 01-03-2022 Anion gap [Moles/Vol] 15.0 mmol/L 6.0-15.0 [facility] Serum or plasma aspartate am inotransferase measurement (enzymatic activity/volume)Ordered By: Ward Zuniga on 01-03-2022 AST [Catalytic activity/Vol] 16 U/L 10 [facility] Serum or plasma calcium ventura urement (mass/volume)Ordered By: Ward Zuniga on 01-03-2022 Calcium [Mass/Vol] 8.9 mg/dL 8.2-10.2 [facility] Serum or plasma chloride alfie surement (moles/volume)Ordered By: Ward Zuniga on 01-03-2022 Chloride [Moles/Vol] 101 mmol/L 95-114 [facility] Serum or plasma glucose ventura urement (mass/volume)Ordered By: Ward Zuniga on 01-03-2022 Glucose [Mass/Vol] 86 mg/dL 70-100 [facility] Comment on above: ADA recommended refe rence rangeRandom Glucose Reference Range is dependent on time and content of last meal. Glucose of more than 200 mg/dL in a nonstressed, ambulatory subject supports the diagnosis of Diabetes Mellitus. Serum or plasma high density lipoprotein (HDL) cholesterol measurementOrdered By: Ward Zuniga on 01-03-2022 Cholesterol in HDL [Mass/Vol] 51 mg/dL 35-85 [facility] Comment on above: HDL CHOL ATP-III CLA SSIFICATION Cardiovascular RiskHDL > or equal to 60 mg/dL LOWHDL < 40 mg/dL HIGH Serum or plasma potassium me asurement (moles/volume)Ordered By: Ward Zuniga on 01-03-2022 Potassium [Moles/Vol] 4.0 mmol/L 3.5-5.1 [facility] Serum or plasma sodium measu rement (moles/volume)Ordered By: Ward Zuniga on 01-03-2022 Sodium [Moles/Vol] 140 mmol/L 136-146 [facility] Serum or plasma total biliru bin measurement (mass/volume)Ordered By: Ward Zuniga on 01-03-2022 Bilirubin [Mass/Vol] 0.5 mg/dL 0.3-1.2 [facility] Serum or plasma total carbon dioxide measurement (moles/volume)Ordered By: Ward Zuniga on 01-03-2022 CO2 [Moles/Vol] 28.0 mmol/L 22.0-30.0 [facility] Serum or plasma total choles terol/high density lipoprotein (HDL) cholesterol mass ratOrdered By: Ward Zuniga on 01-03-2022 Cholesterol.total/Chol esterol in HDL [Mass ratio] 3.6 {ratio} <5.0 [facility] Serum or plasma urea nitroge n measurement (mass/volume)Ordered By: Ward Zuniga on 01-03-2022 Urea nitrogen [Mass/Vol] 6 mg/dL 9- [facility] TSH DL <= 0.005 mIU/L QnOrde red By: Ward Zuniga on 01-03-2022 TSH Qn 0.17 m[IU]/L 0.45-5.33 [facility] Triglyceride [Mass/volume] i n Serum or PlasmaOrdered By: Wardjaquelin Zuniga on 01-03-2022 Triglyceride [Mass/Vol] 91 mg/dL 35-149 [facility] Comment on above: TRIG ATP III CLASSIF ICATIONTRIG less than 150 mg/dL NormalTRIG 150-199 mg/dL Borderline highTRIG 200-500 mg/dL High TRIG greater than 500 mg/dL Very highStandard traceable to the Center for Disease Conrtrol and Prevention (CDC) test method. COVID-19 Positive/NegativeOr dered By: Molina Villanueva on 12-15-2021 SARS-CoV-2 (COVID-19) N gene ROXANA+probe Ql (Resp) Negative Negative [facility] Comment on above: Testing for SARS-CoV -2 by RT-PCR This test was developed and its performance characteristics determined by [employer]) and validated at the [facility]. This test has not been FDA [...] developed and its performance characteristics determined by [employer] (BD) and validated at the [facility]. This test has not been FDA [...] 11 NOT APPLICABLE Normal 6-22 Chapito n [place] Assistant Banquet Manager Comment on above: Order Comment: [facility] Testing performed at: [facility], [facility], [address] [place] [address], [address] [place] [address], [address] [place] [address], Laser Specialist: Alli Parker MD [facility] Collection Date/Time: [facility] Results Received Date/Time: [facility] Reported Date/Time: Performed By: #### T LUIS, [id number] #### [facility] [address] [place] [address] Calcium [Mass/Vol] 8.9 mg/dL Normal 8.6-10.4 Ashley bacon [place] Assistant Banquet Manager Comment on above: Order Comment: [facility] Testing performed at: [facility], [facility], [address] [place] [address], [address] [place] [address], [address] [place] [address], Laser Specialist: Alli Parker MD [facility] Collection Date/Time: [facility] Results Received Date/Time: [facility] Reported Date/Time: Performed By: #### T LUIS, [id number] #### [facility] [address] [place] [address] Chloride [Moles/Vol] 101 mmol/L Normal 98-110 Rupinder cat [place] Assistant Banquet Manager Comment on above: Order Comment: [facility] Testing performed at: [facility], [facility], [address] [facility], [address] [place] [address], [address] [place] [address], Laser Specialist: Alli Parker MD [facility] Collection Date/Time: [facility] Results Received Date/Time: [facility] Reported Date/Time: Performed By: #### Cornelius SMITH, [id number] #### [facility] [address] [place] [address] CO2 [Moles/Vol] 30 mmol/L Normal 20-32 [facility] Comment on above: Order Comment: [facility] Testing performed at: [facility], [facility], [address] [place] [address], [address] [place] [address], [address] [place] [address], Laser Specialist: Alli Parker MD [facility] Collection Date/Time: [facility] Results Received Date/Time: [facility] Reported Date/Time: Performed By: #### Cornelius SMITH, [id number] #### [facility] [address] [place] [address] Creatinine [Mass/Vol] 0.94 mg/dL Normal 0.50-0.99 [facility] Comment on above: Order Comment: [facility] Testing performed at: [facility], [facility], [address] [place] [address], [address] [place] [address], [address] [place] [address], Laser Specialist: Alli Parker MD [facility] Date/Time: [facility] Results Received Date/Time: [facility] Reported Date/Time: Result Comment: For patients >49 years of age, the reference limit for Creatinine is approximately 13% higher for people identified as -Grenadian. Performed By: #### Cornelius SMITH, [id number] #### [facility] [address] [place] [address] eGFRAA ([facility]) 73 mL/min/1.73m2 Normal > OR = 60 [facility] Comment on above: Order Comment: [facility] Testing performed at: [facility], [facility], [address] [place] [address], [address] [place] [address], [address] [place] [address], Laser Specialist: Alli Parker MD [facility] Collection Date/Time: [facility] Results Received Date/Time: [facility] Reported Date/Time: Performed By: #### T LUIS, [id number] #### [facility] Default [address] [place] [address] eGFRNAA ([facility]) 63 mL/min/1.73m2 Normal > OR = 60 [facility] Assistant Banquet Manager Comment on above: Order Comment: [facility] Testing performed at: [facility], [facility], [address] [facility], [address] [place] [address], [address] [place] [address], Laser Specialist: Alli Parker MD [facility] Collection Date/Time: [facility] Results Received Date/Time: [facility] Reported Date/Time: Performed By: #### T LUIS, [id number] #### [facility] Default [address] [place] [address] Glucose [Mass/Vol] 82 mg/dL Normal 65-99 [facility] Assistant Banquet Manager Comment on above: Order Comment: [facility] Testing performed at: [facility], [address] [facility], [address] [place] [address], [address] [place] [address], Laser Specialist: Alli Parker MD [facility] Collection Date/Time: [facility] Results Received Date/Time: [facility] Reported Date/Time: Result Comment: Fasting reference interval Performed By: #### T LUIS, [id number] #### [facility] Default [address] [place] [address] Potassium [Moles/Vol] 4.3 mmol/L Normal 3.5-5.3 [facility] Assistant Banquet Manager Comment on above: Order Comment: [facility] Testing performed at: [facility], [address] [facility], [address] [place] [address], [address] [place] [address], Laser Specialist: Alli Parker MD [facility] Date/Time: [facility] Results Received Date/Time: [facility] Reported Date/Time: Performed By: #### T LUIS, [id number] #### [facility] Default [address] [place] [address] Sodium [Moles/Vol] 138 mmol/L Normal 135-146 [facility] Specialist Comment on above: Order Comment: [facility] Testing performed at: [facility], [facility], [address] [place] [address], [address] [place] [address], [address] [place] [address], Laser Specialist: Alli Parker MD [facility] Date/Time: [facility] Results Received Date/Time: [facility] Reported Date/Time: Performed By: #### T LUIS, [id number] #### [facility] [address] [place] [address] Urea nitrogen [Mass/Vol] 10 mg/dL Normal 7-25 [facility] Assistant Banquet Manager Comment on above: Order Comment: [facility] Testing performed at: [facility], [facility], [address] [place] [address], [address] [place] [address], [address] [place] [address], Laser Specialist: Alli Parker MD [facility] Date/Time: [facility] Results Received Date/Time: [facility] Reported Date/Time: Performed By: #### Cornelius SMITH, [id number] #### [facility] [address] [place] [address] TSHon 07-05-2021 TSH Qn 0.07 m[IU]/L Low 0.40-4.50 [facility] Assistant Banquet Manager Comment on above: Order Comment: [facility] performed at: [facility], [address] [place] [address], [address] [place] [address], [address] [place] [address], Laser Specialist: Alli Parker MD [facility] Collection Date/Time: [facility] Results Received Date/Time: [facility] Reported Date/Time: Performed By: #### T LUIS, [id number] #### [facility] [address] [place] [address] Screening Mammogram, Maral rebecca 03-02-2021 Screening Mammogram, Bilateral EXAMINATION: Screening [...] VERY IMPORTANT TO YOUR HEALTH. THE CURRENT [employer] [employer] OF [employer] AND [employer]PREHENSIVE [employer]WORK GUIDELINES RECOMMEND ANNUAL MAMMOGRAPHY BEGINNING AT AGE 40. THIS FACILITY UTILIZES A REMINDER SYSTEM TO ENSURE ALL PATIENTS RECEIVE A REMINDER NOTIFICATION AT THE APPROPRIATE TIME BASED ON THE RECOMMENDATIONS OF THIS EXAM. 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 ACCREDITED BY THE [facility] AND FDA. Report reported and signed by Eladia Aviles on 03/03/2021 0945 Normal [facility] Assistant Banquet Manager COVID-19 Positive/Negativeon 07-13-2020 SARS-CoV-2 (COVID-19) N gene ROXANA+probe Ql (Resp) Negative Negative [facility] Comment on above: Reference: NegativeT esting for SARS-CoV-2 by RT-PCRThis test was developed and its performance characteristics determined by [employer] and validated at the [facility]. This test has not been FDA [...] (COVID-19) RNA ROXANA+probe Ql (Unsp spec) N/A [facility] Albumin [Mass/volume] in Ser um or Plasmaon 06-30-2020 Albumin [Mass/Vol] 3.6 g/dL 3.2-5.5 [facility] Basophils Auto (Bld) [#/Vol] on 06-30-2020 Basophils (Bld) [#/Vol] 0.0 10*3/uL 0.0-0.2 [facility] Basophils/100 WBC Auto (Bld) on 06-30-2020 Basophils/100 WBC (Bld) 0.8 % [facility] Bilirubin Auto test strip Ql (U)on 06-30-2020 Bilirubin Ql (U) Negative Negative [facility] Blood hemoglobin measurement (mass/volume)on 06-30-2020 Hemoglobin (Bld) [Mass/Vol] 12.1 g/dL 11.8-15.4 [facility] Blood leukocytes automated c ount (number/volume)on 06-30-2020 WBC (Bld) [#/Vol] 4.6 10*3/uL 4.5-11.0 [facility] Cholesterol [Mass/volume] in Serum or Plasmaon 06-30-2020 Cholesterol [Mass/Vol] 202 mg/dL 140-200 [facility] Comment on above: Chol less than 200 m g/dl low riskChol 201-239 mg/dl borderline riskChol 240 mg/dl and greater high risk Cholesterol in LDL Calc [Mas s/Vol]on 06-30-2020 Cholesterol in LDL [Mass/Vol] 134 mg/dL 0-100 [facility] Comment on above: LDL ATP III CLASSIFI CATIONLDL less than 100 mg/dL OptimalLDL 100-129 mg/dL Near or above optimalLDL 130-159 mg/dL Borderline highLDL 160-189 mg/dL HighLDL greater than 189 mg/dL Very high Cholesterol in VLDL Calc [Ma ss/Vol]on 06-30-2020 Cholesterol in VLDL [Mass/Vol] 25 mg/dL [facility] Creatinine and Glomerular fi ltration rate.predicted panel (S/P/Bld)on 06-30-2020 Creatinine [Mass/Vol] 0.84 mg/dL 0.44-1.03 [facility] Eosinophils Auto (Bld) [#/Vo l]on 06-30-2020 Eosinophils (Bld) [#/Vol] 0.1 10*3/uL 0.0-0.45 [facility] Eosinophils/100 WBC Auto (Bl d)on 06-30-2020 Eosinophils/100 WBC (Bld) 2.5 % [facility] Erythrocyte distribution wid th Auto (RBC) [Ratio]on 06-30-2020 Erythrocyte distribution width (RBC) [Ratio] 15.4 % 11.9-15.3 [facility] GFR/1.73 sq M.predicted anthony g non-blacks MDRD (S/P/Bld) [Vol rate/Area]on 06-30-2020 GFR/1.73 sq M predicted among non-blacks MDRD (S/P/Bld) [Vol rate/Area] > 60 mL/Min [facility] Globulin Calc (S) [Mass/Vol] on 06-30-2020 Globulin (S) [Mass/Vol] 2.3 g/dL [facility] Hematocrit Auto (Bld) [Volum e fraction]on 06-30-2020 Hematocrit (Bld) [Volume fraction] 35.9 % 34.0-46.4 [facility] Ketones Auto test strip (U) [Mass/Vol]on 06-30-2020 Ketones (U) [Mass/Vol] Negative Negative Fi [facility] Lymphocytes Auto (Bld) [#/Vo l]on 06-30-2020 Lymphocytes (Bld) [#/Vol] 1.4 10*3/uL 1.00-4.8 [facility] Lymphocytes/100 WBC Auto (Bl d)on 06-30-2020 Lymphocytes/100 WBC (Bld) 31.2 % [facility] MCH Auto (RBC) [Entitic mass ]on 06-30-2020 MCH (RBC) [Entitic mass] 28.9 pg 24.7-34.3 [facility] MCHC Auto (RBC) [Mass/Vol]on 06-30-2020 MCHC (RBC) [Mass/Vol] 33.7 g/dL 32.0-35.0 [facility] MCV Auto (RBC) [Entitic vol] on 06-30-2020 MCV (RBC) [Entitic vol] 85.9 fL 80-100 [facility] Monocytes Auto (Bld) [#/Vol] on 06-30-2020 Monocytes (Bld) [#/Vol] 0.3 10*3/uL 0.0-0.8 [facility] Monocytes/100 WBC Auto (Bld) on 06-30-2020 Monocytes/100 WBC (Bld) 7.6 % [facility] Neutrophils Auto (Bld) [#/Vo l]on 06-30-2020 Neutrophils (Bld) [#/Vol] 2.7 10*3/uL 1.8-7.7 [facility] Neutrophils/100 WBC Auto (Bl d)on 06-30-2020 Neutrophils/100 WBC (Bld) 57.9 % [facility] No Panel Informationon 06-30 Estimated GFR () > 60 mL/Min [facility] Comment on above: GFR estimated refere nce range: According to KDOQI guidelines, <60 ml/min/1.73m2 is sufficient to diagnose a patient with chronic kidney disease. Otheron 06-30-2020 GFR/1.73 sq M.predicted MDRD (S/P/Bld) [Vol rate/Area] > 60 mL/Min [facility] Comment on above: GFR estimated refere nce range: According to KDOQI guidelines, <60 ml/min/1.73m2 is sufficient to diagnose a patient with chronic kidney disease. Nucleated RBC/100 WBC (Bld) [Ratio] 0.1 % 0-0.5 [facility] Creatinine Clearance (Chem N/A [facility] Platelet mean volume Auto (B ld) [Entitic vol]on 06-30-2020 Platelet mean volume (Bld) [Entitic vol] 7.8 fL 6.3-10.7 [facility] Platelets Auto (Bld) [#/Vol] on 06-30-2020 Platelets (Bld) [#/Vol] 244 10*3/uL 150-450 [facility] Protein Auto test strip (U) [Mass/Vol]on 06-30-2020 Protein (U) [Mass/Vol] Negative [facility] Protein [Mass/volume] in Ser um or Plasmaon 06-30-2020 Protein [Mass/Vol] 5.9 g/dL 6.1-7.9 [facility] RBC Auto (Bld) [#/Vol]on RBC (Bld) [#/Vol] 4.18 10*6/uL 3.60-5.00 [facility] Serum or plasma alanine kirkpatrick otransferase measurement without P-5'-P (enzymatic activion 06-30-2020 ALT No additional P-5'-P [Catalytic activity/Vol] 16 U/L 10-60 [facility] Serum or plasma albumin/glob ulin mass ratioon 06-30-2020 Albumin/Globulin [Mass ratio] 1.6 {ratio} [facility] Serum or plasma alkaline kami sphatase measurement (enzymatic activity/volume)on 06-30-2020 ALP [Catalytic activity/Vol] 63 U/L 32-92 [facility] Serum or plasma aspartate am inotransferase measurement (enzymatic activity/volume)on 06-30-2020 AST [Catalytic activity/Vol] 20 U/L 10-42 [facility] Serum or plasma calcium ventura urement (mass/volume)on 06-30-2020 Calcium [Mass/Vol] 8.7 mg/dL 8.2-10.2 [facility] Serum or plasma chloride alfie surement (moles/volume)on 06-30-2020 Chloride [Moles/Vol] 101 mmol/L 95-114 [facility] Serum or plasma glucose ventura urement (mass/volume)on 06-30-2020 Glucose [Mass/Vol] 90 mg/dL 70-100 [facility] Comment on above: ADA recommended refe rence rangeRandom Glucose Reference Range is dependent on time and content of last meal. Glucose of more than 200 mg/dL in a nonstressed, ambulatory subject supports the diagnosis of Diabetes Mellitus. Serum or plasma high density lipoprotein (HDL) cholesterol measurementon 06-30-2020 Cholesterol in HDL [Mass/Vol] 42 mg/dL 35-85 [facility] Comment on above: HDL CHOL ATP-III CLA SSIFICATION Cardiovascular RiskHDL > or equal to 60 mg/dL LOWHDL < 40 mg/dL HIGH Serum or plasma potassium me asurement (moles/volume)on 06-30-2020 Potassium [Moles/Vol] 4.1 mmol/L 3.5-5.1 [facility] Serum or plasma sodium measu rement (moles/volume)on 06-30-2020 Sodium [Moles/Vol] 139 mmol/L 136-146 [facility] Serum or plasma thyroid stim ulating hormone (TSH) measurement by high sensitivity meton 06-30-2020 TSH Qn 1.63 u[iU]/mL 0.45-5.33 [facility] Serum or plasma total biliru bin measurement (mass/volume)on 06-30-2020 Bilirubin [Mass/Vol] 0.6 mg/dL 0.3-1.2 [facility] Serum or plasma total carbon dioxide measurement (moles/volume)on 06-30-2020 CO2 [Moles/Vol] 28.7 mmol/L 22.0-30.0 [facility] Serum or plasma total choles terol/high density lipoprotein (HDL) cholesterol mass bentley 06-30-2020 Cholesterol.total/Chol esterol in HDL [Mass ratio] 4.8 {ratio} [facility] Serum or plasma urea nitroge n measurement (mass/volume)on 06-30-2020 Urea nitrogen [Mass/Vol] 5 mg/dL 9-23 [facility] TSH DL <= 0.005 mIU/L Qnon 0 06-30-2020 TSH Qn 1.63 m[IU]/L 0.45-5.33 [facility] Triglyceride [Mass/volume] i n Serum or Plasmaon 06-30-2020 Triglyceride [Mass/Vol] 128 mg/dL 35-149 [facility] Comment on above: TRIG ATP III CLASSIF ICATIONTRIG less than 150 mg/dL NormalTRIG 150-199 mg/dL Borderline highTRIG 200-500 mg/dL High TRIG greater than 500 mg/dL Very highStandard traceable to the Center for Disease Conrtrol and Prevention (CDC) test method. Urine appearanceon Appearance (U) Clear Clear [facility] Urine coloron 06-30-2020 Color (U) Yellow Yellow [facility] Urine glucose measurement by automated test strip (mass/volume)on 06-30-2020 Glucose Auto test strip (U) [Mass/Vol] Normal mg/dL Normal [facility] Urine hemoglobin detection b y automated test stripon 06-30-2020 Hemoglobin Auto test strip Ql (U) Negative Negative [facility] Hemoglobin Auto test strip Ql (U) Negative Negative [facility] Urine ketones measurement by automated test strip (mass/volume)on 06-30-2020 Ketones (U) [Mass/Vol] Negative Negative [facility] Urine leukocyte esterase det ection by automated test stripon 06-30-2020 Leukocyte esterase Auto test strip Ql (U) Negative Negative [facility] Leukocyte esterase Auto test strip Ql (U) Negative Negative [facility] Urine nitrite detection by a utomated test stripon 06-30-2020 Nitrite Auto test strip Ql (U) Negative Negative [facility] Nitrite Auto test strip Ql (U) Negative Negative [facility] Urine protein measurement by automated test strip (mass/volume)on 06-30-2020 Protein (U) [Mass/Vol] Negative Negative [facility] Urine total bilirubin detect ion by automated test stripon 06-30-2020 Bilirubin Ql (U) Negative Negative [facility] Urobilinogen Auto test strip (U) [Mass/Vol]on 06-30-2020 Urobilinogen (U) [Mass/Vol] Normal mg/dL Normal [facility] pH Auto test strip (U)on pH (U) 5.5 [pH] 5.0-9.0 [facility] pH (U) 1.030 [pH] 1.001-1.03 0 [facility] Amphetamines screenon 2020 Amphetamines Ql (U) Negative Negative [facility] Cannabinoids [Presence] in U rine by Screen methodon 03-31-2020 Cannabinoids Screen Ql (U) Positive Negative [facility] Comment on above: These are unconfirme d results and should not be used for legal purposes. Drug Cut-Off Concentration: AMPH 1000 ng/mL JUNIE 200 ng/mL SABRA 200 ng/mL COCM 300 ng/mL OP 300 ng/mL PCP 25 ng/mL THC 20 ng/mL Urinalysison 03-31-2020 Opiates Ql (U) Negative Negative [facility] Urine barbiturates detection on 03-31-2020 Barbiturates Ql (U) Negative Negative [facility] Urine benzodiazepines detect ionon 03-31-2020 Benzodiazepines Ql (U) Negative Negative [facility] Urine cocaine detectionon Cocaine Ql (U) Negative Negative [facility] Urine phencyclidine detectio n by screening methodon 03-31-2020 Phencyclidine Ql (U) Negative Negative [facility] COVID-19 SOFIAon 03-30-2020 COVID-19 SHELBI Negative Negative [facility] Comment on above: This is a duplicate test result based off of the Shelbi SARS Antigen (MILDRED) test performed within the Microbiology department. Otheron 03-30-2020 SARS Antigen (LFIA) [facility] Vital Signs Date Time Vital Sign Value Performing Clinician Facility 03-13-2023 14:26-0500 Body temperature 97.7 [degF] DO Ward Zuniga Work Phone: [facility] 03-13-2023 14:26-0500 Diastolic blood pressure 68 mm[Hg] DO Ward Zuniga Work Phone: [facility] 03-13-2023 14:26-0500 Heart rate 84 /min DO Ward Zuniga Work Phone: [facility] 03-13-2023 14:26-0500 Respiratory rate 18 /min DO Ward Zuniga Work Phone: [facility] 03-13-2023 14:26-0500 Systolic blood pressure 148 mm[Hg] DO Ward Zuniga Work Phone: [facility] 03-02-2023 13:09-0500 Blood Pressure Location [facility] [employer] [facility] 03-02-2023 13:09-0500 Body temperature 96.98 [degF] [facility] [employer] [facility] 03-02-2023 13:09-0500 Diastolic blood pressure 81 mm[Hg] Ketty Orzech [facility] 03-02-2023 13:09-0500 Heart rate 71 /min Ketty Orzech [facility] 03-02-2023 13:09-0500 Systolic blood pressure 128 mm[Hg] Ketty Orzech [facility] 02-27-2023 14:36-0500 Body height 154.94 cm DO Ward Efrain Work Phone: [facility] 02-27-2023 14:36-0500 Body mass index (BMI) [Ratio] 31.1 kg/m2 DO Ward Efrain Work Phone: [facility] 02-27-2023 14:36-0500 Body weight 74.84 kg DO Ward Efrain Work Phone: [facility] 01-04-2023 13:32-0400 Body height 154.94 cm DO Ward Efrain Work Phone: [facility] 01-04-2023 13:32-0400 Body mass index (BMI) [Ratio] 31.1 kg/m2 DO Ward Efrain Work Phone: [facility] 01-04-2023 13:32-0400 Body weight 74.84 kg DO Ward Efrain Work Phone: [facility] 01-04-2023 13:19-0400 Diastolic blood pressure 92 mm[Hg] DO Ward Efrain Work Phone: [facility] 01-04-2023 13:19-0400 Heart rate 82 /min DO Ward Efrain Work Phone: [facility] 01-04-2023 13:19-0400 Respiratory rate 18 /min DO Ward Zuniga Work Phone: [facility] 01-04-2023 13:19-0400 Systolic blood pressure 160 mm[Hg] DO Ward Zuniga Work Phone: [facility] 01-02-2023 09:45-0400 Body height 154.94 cm Wardjaquelin Carmonar Other [employer] Other 01-02-2023 09:45-0400 Body mass index (BMI) [Ratio] 32.12 kg/m2 Ward Joshrer Other [employer] Other 01-02-2023 09:45-0400 Body temperature 97.8 [degF] Ward Owensehrer Other [employer] Other 01-02-2023 09:45-0400 Body weight 77.11 kg Ward Romanalbinsantiago Other [employer] Other 01-02-2023 09:45-0400 Diastolic blood pressure 62 mm[Hg] Ward Morenorer Other [employer] Other 01-02-2023 09:45-0400 SaO2% (BldA) [Mass fraction] 97 % Ward Owensehrer Other [employer] Other 01-02-2023 09:45-0400 Systolic blood pressure 116 mm[Hg] Ward Buehrer Other [employer] Other 12-21-2022 13:01-0400 Body temperature 98.4 [degF] DO Ward Zuniga Work Phone: [facility] 12-17-2022 09:00-0400 Diastolic blood pressure 68 mm[Hg] DO Ward Zuniga Work Phone: [facility] 12-17-2022 09:00-0400 Heart rate 64 /min DO Ward Zuniga Work Phone: [facility] 12-17-2022 09:00-0400 Respiratory rate 20 /min DO Ward Zuniga Work Phone: [facility] 12-17-2022 09:00-0400 SaO2% (BldA) [Mass fraction] 95 % DO Ward Zuniga Work Phone: [facility] 12-17-2022 09:00-0400 Systolic blood pressure 138 mm[Hg] DO Ward Zuniga Work Phone: [facility] 12-17-2022 07:42-0400 Body temperature 98.9 [degF] DO Ward Zuniga Work Phone: [facility] 12-07-2022 11:11-0400 Body height 154.94 cm DO Ward Zuniga Work Phone: [facility] 12-07-2022 11:11-0400 Body mass index (BMI) [Ratio] 31.1 kg/m2 DO Ward Zuniga Work Phone: [facility] 12-07-2022 11:11-0400 Body weight 74.84 kg DO Ward Zuniga Work Phone: [facility] 12-07-2022 11:01-0400 Body temperature 97.2 [degF] DO Ward Zuniga Work Phone: [facility] 12-07-2022 11:01-0400 Diastolic blood pressure 74 mm[Hg] DO Ward Zuniga Work Phone: [facility] 12-07-2022 11:01-0400 Heart rate 67 /min DO Ward Zuniga Work Phone: [facility] 12-07-2022 11:01-0400 Respiratory rate 18 /min DO Ward Zuniga Work Phone: [facility] 12-07-2022 11:01-0400 Systolic blood pressure 146 mm[Hg] DO Ward Zuniga Work Phone: [facility] 11-04-2022 10:54-0400 Body height 154.94 cm DO Ward Zuniga Work Phone: [facility] 11-04-2022 10:54-0400 Body temperature 99.2 [degF] DO Ward Zuniga Work Phone: [facility] 11-04-2022 10:54-0400 Body weight 70.3 kg DO Ward Zuniga Work Phone: [facility] 11-04-2022 10:54-0400 Diastolic blood pressure 71 mm[Hg] DO Ward Zuniga Work Phone: [facility] 11-04-2022 10:54-0400 Heart rate 78 /min DO Ward Zuniga Work Phone: [facility] 11-04-2022 10:54-0400 Respiratory rate 18 /min DO Ward Zuniga Work Phone: [facility] 11-04-2022 10:54-0400 SaO2% (BldA) [Mass fraction] 99 % DO Ward Zuniga Work Phone: [facility] 11-04-2022 10:54-0400 Systolic blood pressure 159 mm[Hg] DO Ward Zuniga Work Phone: [facility] 10-26-2022 09:42-0400 Body height 154.94 cm DO Ward Zuniga Work Phone: [facility] 10-26-2022 09:42-0400 Body mass index (BMI) [Ratio] 31.1 kg/m2 DO Ward Zuniga Work Phone: [facility] 10-26-2022 09:42-0400 Body weight 74.84 kg DO Ward Zuniga Work Phone: [facility] 10-26-2022 09:28-0400 Body temperature 98.4 [degF] DO Ward Zuniga Work Phone: [facility] 10-26-2022 09:28-0400 Diastolic blood pressure 88 mm[Hg] DO Ward Zuniga Work Phone: [facility] 10-26-2022 09:28-0400 Heart rate 93 /min DO Ward Zuniga Work Phone: [facility] 10-26-2022 09:28-0400 Respiratory rate 24 /min DO Ward Zuniga Work Phone: [facility] 10-26-2022 09:28-0400 Systolic blood pressure 132 mm[Hg] DO Ward Zuniga Work Phone: [facility] 10-24-2022 09:45-0400 Body height 154.94 cm Ward Smith Other [employer] Other 10-24-2022 09:45-0400 Body mass index (BMI) [Ratio] 31.74 kg/m2 Ward Romanalbinsantiago Other [employer] Other 10-24-2022 09:45-0400 Body temperature 97.4 [degF] Wardjaquelin Morenorer Other [employer] Other 10-24-2022 09:45-0400 Body weight 76.2 kg Ward Joshrer Other [employer] Other 10-24-2022 09:45-0400 Diastolic blood pressure 70 mm[Hg] Ward Buehrer Other [employer] Other 10-24-2022 09:45-0400 SaO2% (BldA) [Mass fraction] 97 % Ward Carmonar Other [employer] Other 10-24-2022 09:45-0400 Systolic blood pressure 118 mm[Hg] Ward Morenorer Other [employer] Other 09-27-2022 08:26-0400 Diastolic blood pressure 56 mm[Hg] Ronobir RANDY [facility] 09-27-2022 08:26-0400 Heart rate 55 /min Ronobir RANDY [facility] 09-27-2022 08:26-0400 Respiratory rate 18 /min Ronobir RANDY [facility] 09-27-2022 08:26-0400 SaO2% (BldA) [Mass fraction] 99 % Ronobir RANDY [facility] 09-27-2022 08:26-0400 Systolic blood pressure 110 mm[Hg] Ronobir RANDY [facility] 09-27-2022 05:58-0400 Diastolic blood pressure 59 mm[Hg] Ronobir RANDY [facility] 09-27-2022 05:58-0400 Heart rate 64 /min Ronobir RANDY [facility] 09-27-2022 05:58-0400 Respiratory rate 18 /min Ronobir RANDY [facility] 09-27-2022 05:58-0400 SaO2% (BldA) [Mass fraction] 95 % Ronobir RANDY [facility] 09-27-2022 05:58-0400 Systolic blood pressure 108 mm[Hg] Ronobir RANDY [facility] 09-27-2022 04:58-0400 Diastolic blood pressure 61 mm[Hg] Ronobir RANDY [facility] 09-27-2022 04:58-0400 Heart rate 66 /min Ronobir RANDY [facility] 09-27-2022 04:58-0400 Respiratory rate 18 /min Ronobir RANDY [facility] 09-27-2022 04:58-0400 SaO2% (BldA) [Mass fraction] 97 % Ronobir RANDY [facility] 09-27-2022 04:58-0400 Systolic blood pressure 111 mm[Hg] Ronobir RANDY [facility] 09-26-2022 23:15-0400 Body temperature 98.96 [degF] Ronobir RANDY [facility] 07-26-2022 14:31-0400 Heart rate 76 /min Talon Mcbride [facility] 07-26-2022 14:31-0400 SaO2% (BldA) [Mass fraction] 98 % Talon Gastonsh [facility] 07-26-2022 14:30-0400 Diastolic blood pressure 84 mm[Hg] Talon Gastonsh [facility] 07-26-2022 14:30-0400 Mean blood pressure 111 mm[Hg] Talon Gastonsh [facility] 07-26-2022 14:30-0400 Systolic blood pressure 166 mm[Hg] Talon Gastonsh [facility] 07-26-2022 14:30-0400 Respiratory rate 16 /min aTlon Gastonsh [facility] 07-26-2022 12:53-0400 Heart rate 73 /min Talon Gastonsh [facility] 07-26-2022 12:53-0400 SaO2% (BldA) [Mass fraction] 98 % Talon Gastonsh [facility] 07-26-2022 12:52-0400 Diastolic blood pressure 75 mm[Hg] Talon Gastonsh [facility] 07-26-2022 12:52-0400 Mean blood pressure 99 mm[Hg] Talon Gastonsh [facility] 07-26-2022 12:52-0400 Systolic blood pressure 148 mm[Hg] Talon Gastonsh [facility] 07-26-2022 12:52-0400 SaO2% (BldA) [Mass fraction] 95 % Talon Gastonsh [facility] 07-26-2022 12:43-0400 Body temperature 97.88 [degF] Talon Gastonsh [facility] 07-26-2022 12:43-0400 Diastolic blood pressure 63 mm[Hg] Talon Gastonsh [facility] 07-26-2022 12:43-0400 Heart rate 63 /min Talon Gastonsh [facility] 07-26-2022 12:43-0400 Mean blood pressure 86 mm[Hg] Talon Gastonsh [facility] 07-26-2022 12:43-0400 Respiratory rate 15 /min Talon Gastonsh [facility] 07-26-2022 12:43-0400 Systolic blood pressure 131 mm[Hg] Talon Gastonsh [facility] 07-26-2022 12:30-0400 Mean blood pressure 93 mm[Hg] Talon Mcbride [facility] 07-26-2022 12:30-0400 Respiratory rate 16 /min Talon Mcbride [facility] 07-26-2022 12:15-0400 Mean blood pressure 112 mm[Hg] Talon Gastonsh [facility] 07-26-2022 12:15-0400 Respiratory rate 15 /min Talon Gastonsh [facility] 07-26-2022 11:46-0400 Body temperature 97.34 [degF] Talon Gastonsh [facility] 07-26-2022 11:40-0400 Respiratory rate 21 /min Talon Gastonsh [facility] 07-26-2022 11:35-0400 Respiratory rate 14 /min Talon Gastonsh [facility] 07-26-2022 06:00-0400 Body temperature 98.06 [degF] Talon Gastonsh [facility] 07-26-2022 06:00-0400 Mean blood pressure 101 mm[Hg] Talon Gastonsh [facility] 07-26-2022 06:00-0400 Heart rate 68 /min Talon Gastonsh [facility] 07-26-2022 05:58-0400 Blood Pressure Location Talon Mcbride [facility] 07-18-2022 13:31-0400 Diastolic blood pressure 72 mm[Hg] Talon Gastonsh [facility] 07-18-2022 13:31-0400 Heart rate 61 /min Talon Gastonsh [facility] 07-18-2022 13:31-0400 Mean blood pressure 89 mm[Hg] Talon Mcbride [facility] 07-18-2022 13:31-0400 Systolic blood pressure 123 mm[Hg] Talon Mcbride [facility] 07-18-2022 13:31-0400 Heart rate 64 /min Talon Mcbride [facility] 07-18-2022 13:31-0400 SaO2% (BldA) [Mass fraction] 99 % Talon Mcbride [facility] 07-18-2022 13:31-0400 Respiratory rate 17 /min Talon Mcbride [facility] 07-18-2022 13:30-0400 Diastolic blood pressure 69 mm[Hg] Talon Mcbride [facility] 07-18-2022 13:30-0400 Mean blood pressure 86 mm[Hg] Talon Mcbride [facility] 07-18-2022 13:30-0400 Systolic blood pressure 121 mm[Hg] Talon Mcbride [facility] 07-13-2022 14:45-0400 Body height 154.9 cm Trauma Resident [facility] 07-13-2022 14:45-0400 Body mass index (BMI) [Ratio] 31.01 kg/m2 Trauma Resident [facility] 07-13-2022 14:45-0400 Body temperature 97.3 [degF] Trauma Resident [facility] 07-13-2022 14:45-0400 Body weight 74.44 kg Trauma Resident [facility] 07-13-2022 14:45-0400 Diastolic blood pressure 69 mm[Hg] Trauma Resident [facility] 07-13-2022 14:45-0400 Heart rate 69 /min Trauma Resident [facility] 07-13-2022 14:45-0400 Respiratory rate 16 /min Trauma Resident [facility] 07-13-2022 14:45-0400 SaO2% (BldA) [Mass fraction] 100 % Trauma Resident [facility] 07-13-2022 14:45-0400 Systolic blood pressure 159 mm[Hg] [facility] [place] 07-05-2022 14:45-0400 Diastolic blood pressure 54 mm[Hg] Mh 1 [facility] 07-05-2022 14:45-0400 Heart rate 75 /min [address] 07-05-2022 14:45-0400 Respiratory rate 16 /min [address] 07-05-2022 14:45-0400 SaO2% (BldA) [Mass fraction] 97 % [address] 07-05-2022 14:45-0400 Systolic blood pressure 125 mm[Hg] [address] 07-05-2022 13:00-0400 Body height 154.[address] 07-05-2022 13:00-0400 Body mass index (BMI) [Ratio] 31.55 kg/m2 [address] 07-05-2022 13:00-0400 Body temperature 98.6 [degF] [address] 07-05-2022 13:00-0400 Body weight 75.[address] 06-30-2022 08:58-0400 Body height 154.94 cm Ward Zuniga Work Phone: [facility] [employer] 600 DO Work Phone: 06-30-2022 08:58-0400 Body mass index (BMI) [Ratio] 31.08 kg/m2 [facility] Work Phone: 06-30-2022 08:58-0400 Body surface area Derived from formula 1.74 m2 Ward Zuniga Work Phone: [facility] [employer] 600 DO Work Phone: 06-30-2022 08:58-0400 Body weight 74.62 kg [facility] Work Phone: 06-30-2022 08:58-0400 Diastolic blood pressure 78 mm[Hg] Ward Loomisman Work Phone: [facility] 600 DO Work Phone: 06-30-2022 08:58-0400 Diastolic blood pressure 80 mm[Hg] Ward Loomisman Work Phone: [facility] [address] DO Work Phone: 06-30-2022 08:58-0400 Heart rate 77 /min Ward Maryann Zuniga Work Phone: [facility] [address] DO Work Phone: 06-30-2022 08:58-0400 Systolic blood pressure 128 mm[Hg] Ward Loomisman Work Phone: [facility] 600 DO Work Phone: 06-30-2022 08:58-0400 Systolic blood pressure 132 mm[Hg] Ward Loomisman Work Phone: [facility] 600 DO Work Phone: 06-22-2022 19:00-0400 Body height 154.94 cm DO Ward Efrain Work Phone: [facility] 06-22-2022 19:00-0400 Body temperature 97.7 [degF] DO Ward Efrain Work Phone: [facility] 06-22-2022 19:00-0400 Body weight 73 kg DO Ward Efrain Work Phone: [facility] 06-22-2022 19:00-0400 Diastolic blood pressure 76 mm[Hg] DO Ward Efrain Work Phone: [facility] 06-22-2022 19:00-0400 Heart rate 94 /min DO Ward Efrain Work Phone: [facility] 06-22-2022 19:00-0400 Respiratory rate 18 /min DO Ward Efrain Work Phone: [facility] 06-22-2022 19:00-0400 SaO2% (BldA) [Mass fraction] 98 % DO Ward Zuniga Work Phone: [facility] 06-22-2022 19:00-0400 Systolic blood pressure 139 mm[Hg] DO Ward Zuniga Work Phone: [facility] 06-15-2022 13:10-0400 Body height 154.9 cm Trauma Resident [facility] 06-15-2022 13:10-0400 Body mass index (BMI) [Ratio] 31.57 kg/m2 Trauma Resident [facility] 06-15-2022 13:10-0400 Body weight 75.8 kg Trauma Resident [facility] 06-15-2022 13:10-0400 Diastolic blood pressure 68 mm[Hg] Trauma Resident [facility] 06-15-2022 13:10-0400 Heart rate 92 /min Trauma Resident [facility] 06-15-2022 13:10-0400 Respiratory rate 19 /min Trauma Resident [facility] 06-15-2022 13:10-0400 SaO2% (BldA) [Mass fraction] 97 % Trauma Resident [facility] 06-15-2022 13:10-0400 Systolic blood pressure 118 mm[Hg] Trauma Resident [facility] 05-16-2022 00:50-0500 Body temperature 98.3 [degF] DO Ward Zuniga Work Phone: [facility] 05-16-2022 00:50-0500 Diastolic blood pressure 79 mm[Hg] DO Ward Zuniga Work Phone: [facility] 05-16-2022 00:50-0500 Heart rate 82 /min DO Ward Zuniga Work Phone: [facility] 05-16-2022 00:50-0500 Inhaled oxygen flow rate 3 L/min DO Ward Zuniga Work Phone: [facility] 05-16-2022 00:50-0500 Respiratory rate 20 /min DO Ward Zuniga Work Phone: [facility] 05-16-2022 00:50-0500 SaO2% (BldA) [Mass fraction] 96 % DO Ward Zuniga Work Phone: [facility] 05-16-2022 00:50-0500 Systolic blood pressure 147 mm[Hg] DO Ward Zuniga Work Phone: [facility] 05-15-2022 17:14-0500 Body height 154.94 cm DO Ward Zuniga Work Phone: [facility] 05-15-2022 17:14-0500 Body weight 78.1 kg DO Ward Zuniga Work Phone: [facility] 12-07-2021 09:30-0400 Body height 154.94 cm Balwinder Parker Other [facility] [employer] Other 12-07-2021 09:30-0400 Body mass index (BMI) [Ratio] 33.06 kg/m2 Balwidner Parker Other [facility] [employer] Other 12-07-2021 09:30-0400 Body weight 79.38 kg Balwinder Parker Other [employer] Other 12-07-2021 09:30-0400 Diastolic blood pressure 63 mm[Hg] Balwinder Parker Other [employer] Other 12-07-2021 09:30-0400 Systolic blood pressure 113 mm[Hg] Balwinder Parker Other [employer] Other 12-07-2021 09:01-0400 Body weight 0 kg DO Ward Zuniga Work Phone: [facility] 11-30-2021 13:23-0400 Blood Pressure Location MARYCARMEN ELIJAH [facility] 11-30-2021 13:23-0400 Diastolic blood pressure 73 mm[Hg] MARYCARMEN ELIJAH [facility] 11-30-2021 13:23-0400 Heart rate 69 /min MARYCARMEN ELIJAH [facility] 11-30-2021 13:23-0400 Systolic blood pressure 132 mm[Hg] MARYCARMEN ELIJAH [facility] 07-29-2021 11:08-0400 Blood Pressure Location MARYCARMEN ELIJAH [facility] 07-29-2021 11:08-0400 Diastolic blood pressure 84 mm[Hg] MARYCARMEN ELIJAH [facility] 07-29-2021 11:08-0400 Heart rate 77 /min MARYCARMEN ELIJAH [facility] 07-29-2021 11:08-0400 Systolic blood pressure 132 mm[Hg] MARYCARMEN ELIJAH [facility] 07-01-2021 14:45-0400 Body height 154.94 cm Balwinder Parker Other [employer] Other 07-01-2021 14:45-0400 Body mass index (BMI) [Ratio] 36.09 kg/m2 Balwinder Parker Other [employer] Other 07-01-2021 14:45-0400 Body weight 86.64 kg Balwinder Parker Other [employer] Other 02-23-2021 11:45-0500 Body height 154.94 cm Ward Smith Other [employer] Other 02-23-2021 11:45-0500 Body mass index (BMI) [Ratio] 34.95 kg/m2 Ward Joshrelalita Other [employer] Other 02-23-2021 11:45-0500 Body temperature 96.7 [degF] Ward Mtz Other [employer] Other 02-23-2021 11:45-0500 Body weight 83.92 kg Ward Morenorelalita Other [employer] Other 02-23-2021 11:45-0500 Diastolic blood pressure 80 mm[Hg] Ward Mtz Other [employer] Other 02-23-2021 11:45-0500 SaO2% (BldA) [Mass fraction] 98 % Ward Mtz Other [employer] Other 02-23-2021 11:45-0500 Systolic blood pressure 138 mm[Hg] Ward Morenorelalita Other [employer] Other 12-29-2020 11:40-0400 Body height 154.94 cm Michael Colunga Other [employer] Other 12-29-2020 11:40-0400 Body mass index (BMI) [Ratio] 34.95 kg/m2 Michael Colunga Other [employer] Other 12-29-2020 11:40-0400 Body weight 83.92 kg Michael Colunga Other [employer] Other 12-29-2020 11:40-0400 Diastolic blood pressure 68 mm[Hg] Michael Colunga Other [employer] Other 12-29-2020 11:40-0400 Systolic blood pressure 116 mm[Hg] Michael Colunga Other [employer] Other 03-31-2020 08:55-0500 BP Diastolic 80 mm[Hg] [facility] 03-31-2020 08:55-0500 BP Systolic 145 mm[Hg] [facility] 03-31-2020 08:55-0500 Pulse (Heart Rate) 65 /min [facility] [place] [facility] 03-31-2020 08:55-0500 Pulse Oximetry 99 % [facility] 03-31-2020 08:55-0500 Respiratory Rate 16 /min [facility] 03-31-2020 07:10-0500 BMI (Body Mass Index) 33.6 kg/m2 [facility] 03-31-2020 07:10-0500 Body weight 82.1 kg [facility] 03-31-2020 07:10-0500 Height 156.21 cm [facility] Encounters Encounter Date Encounter Type Care Provider Facility Start: 03-14-2024 ambulatory MARYCARMEN Lay ty:[facility] Start: 04-20-2023 End: 04-21-2023 ambulatory CONNIE LEAYR Not Available Start: 04-19-2023 End: 04-19-2023 ambulatory WARD ZUNIGA Facility:[facility] Start: 04-17-2023 End: 04-17-2023 ambulatory VICTORIA MARSHALL Not Available Start: 04-11-2023 End: 04-12-2023 ambulatory CONNIE LEARY Not Available Start: 03-22-2023 End: 03-22-2023 ambulatory CONNIE LEARY Not Available Start: 03-13-2023 End: 03-13-2023 ambulatory Adelia Shana Facility:[facility] Start: 03-13-2023 End: 03-13-2023 ambulatory DO Ward Zuniga Work Phone: [facility] Work Phone: Start: 03-13-2023 End: 03-13-2023 Discharged Recurring DO Ward Zuniga Work Phone: [facility] Work Phone: Start: 03-02-2023 End: 03-03-2023 ambulatory Ketty Alicia Facility:[facility] Start: 03-02-2023 End: 03-02-2023 Patient encounter procedure Ketty X Orclemenciach [facility] Start: 03-01-2023 End: 03-02-2023 ambulatory CONNIE LEARY Not Available Start: 02-22-2023 End: 02-23-2023 ambulatory CONNIE LEARY Not Available Start: 02-07-2023 End: 02-08-2023 ambulatory WARD ZUNIGA Not Available Start: 01-04-2023 End: 01-04-2023 ambulatory Ward Zuniga Facility:[facility] Start: 01-04-2023 End: 01-04-2023 Discharged Recurring DO Ward Zuniga Work Phone: [facility] [place] Work Phone: Start: 01-02-2023 End: 01-02-2023 ambulatory Ward Mtz Other [employer] Other Start: 01-02-2023 Office outpatient vi sit 25 minutes Ward Mtz [facility] Vascular Surgery Start: 12-17-2022 End: 12-17-2022 Emergency department patient visit Pravin Granado Facility:[facility] Start: 12-17-2022 End: 12-17-2022 Emergency department patient visit DO Ward Zuniga Work Phone: [facility]-Emergency [facility] Work Phone: Start: 12-07-2022 Registered Recurring DO Lyndsey Zuniga Work Phone: [facility] [place] Work Phone: Start: 12-03-2022 Letter encounter Lalo lancaster Start: 11-04-2022 End: 11-04-2022 ambulatory Ward Zuniga Facility:[facility] Start: 11-04-2022 End: 11-04-2022 Emergency department patient visit Ward Zuniga Facility:[facility] Start: 11-04-2022 End: 11-04-2022 ambulatory DO Ward Zuniga Work Phone: [facility] Work Phone: Start: 11-04-2022 End: 11-04-2022 Patient encounter procedure DO Ward Zuniga Work Phone: [facility]-Ultrasound [place] Work Phone: Start: 11-04-2022 End: 11-04-2022 Emergency department patient visit DO Ward Zuniga Work Phone: [facility]-Emergency Room Work Phone: Start: 10-26-2022 Registered Recurring DO Lyndsey Zuniga Work Phone: [facility]-Wound [facility] Work Phone: Start: 10-24-2022 End: 10-24-2022 ambulatory Ward Mtz Other [employer] Other Start: 10-24-2022 Office outpatient vi sit 25 minutes Ward Mtz [facility] Vascular Surgery Start: 09-27-2022 End: 09-27-2022 ambulatory Maliha PADILLA [facility] Start: 09-26-2022 End: 09-27-2022 Emergency department patient visit Maliha PADILLA [facility] Start: 09-06-2022 End: 09-06-2022 ambulatory Ward Zuniga Facility:[facility] Start: 09-06-2022 End: 09-06-2022 Patient encounter procedure DO Ward Zuniga Work Phone: [facility]-Lab [facility] [place] Work Phone: Start: 08-30-2022 Letter encounter Lalo lancaster Start: 08-05-2022 End: 08-06-2022 ambulatory Talon Mcbride Facility[place] Start: 08-05-2022 End: 08-05-2022 Patient encounter procedure Zulay Junior [facility] Start: 07-26-2022 End: 07-26-2022 ambulatory Talon Mcbride Facility[facility] Start: 07-26-2022 End: 07-26-2022 Admission to same day surgery center Talon Mcbride [facility] Start: 07-18-2022 End: 07-19-[address] Ward Zuniga Facility:[facility] Start: 07-18-2022 End: 07-18-2022 Patient encounter procedure Talon Mcbride [facility] Start: 07-13-2022 End: 07-13-2022 ambulatory NIKITA HEIN Facility:[facility] Start: 07-13-2022 End: 07-13-2022 Office outpatient visit 10 minutes Trauma Surgery Resident [facility] Trauma Surgery Comment on above: Acute cholecystitis (Primary Dx); Body mass index (BMI) 31.0-31.9, adult Start: 07-13-2022 Admission to [facility] Nikita Hein MD Work Phone: [facility] Trauma Surgery Start: 07-07-2022 Orders Only Jai Aguilera RN [facility] Tra[facility] Start: 07-06-2022 ambulatory Kendra Harrison RN [facility] Line Comment on above: Advice/health educat ion Start: 07-06-2022 Telephone encounter Jai Aguilera RN [facility] Trauma Surgery Start: 07-05-2022 End: 07-06-2022 ambulatory NIKITA HEIN Facility:[facility] Start: 07-05-2022 Telephone encounter Taniya cat Work Phone: [facility] Trauma Surgery Start: 07-05-2022 End: 07-05-2022 Subsequent hospital visit by physician Mh Ip/Op Angio 1 [facility] Radiology Comment on above: Acute cholecystitis Start: 06-30-2022 Office consultation new/estab patient 60 min Ward Zuniga Work Phone: [facility] 600 DO Work Phone: Start: 06-30-[address] Natan Marinelli Facility: Start: 06-27-2022 Telephone encounter Taniya cat Work Phone: [facility] Trauma Surgery Start: 06-22-2022 End: 06-22-2022 Emergency department patient visit Keith Griffith Facility:[facility] Start: 06-22-2022 End: 06-22-2022 Emergency department patient visit DO Ward Zuniga Work Phone: [facility]-Emergency Room Work Phone: Start: 06-20-2022 Orders Only Jai Aguilera RN [facility] Tra[facility] Start: 06-17-2022 Telephone encounter Laura Faust [facility] Trauma Surgery Start: 06-16-2022 Telephone encounter Taniya cat Work Phone: [facility] Trauma Surgery Start: 06-15-2022 End: 06-18-2022 ambulatory UNKNOWN PROVIDER Facility:[facility] Start: 06-15-2022 End: 06-18-2022 Office outpatient visit 15 minutes Trauma Surgery Resident [facility] Trauma Surgery Comment on above: Acute cholecystitis (Primary Dx); Body mass index (BMI) 31.0-31.9, adult Start: 05-27-2022 ambulatory Maegan Morris RN [facility] Comment on above: Advice/health educat ion Start: 05-23-2022 Evaluation and management of inpatient JOCELYNE CONLEY Facility:[facility] Start: 05-19-2022 Evaluation and management of inpatient CONNIE COTE Facility:[facility] Start: 05-18-2022 Patient encounter status Maegan Morris RN [facility] Start: 05-17-2022 Evaluation and management of inpatient CONNIE COTE Facility:[facility] Start: 05-16-2022 Evaluation and management of inpatient CONNIE COTE Facility:[facility] Start: 05-16-2022 End: 05-16-2022 ambulatory UNKNOWN PROVIDER Facility:[facility] Start: 05-16-2022 End: 05-25-2022 Evaluation and management of inpatient WARD GRAVES Facility:[facility] Start: 05-16-2022 Emergency department patient visit CONNIE CRUZARTHY Facility:[facility] Start: 05-15-2022 End: 05-16-2022 Emergency department patient visit Keith Griffith Facility:[facility] Start: 05-15-2022 End: 05-16-2022 Emergency department patient visit DO Ward Zuniga Work Phone: [facility]-Emergency Room Work Phone: Start: 05-15-2022 End: 05-16-2022 ambulatory UNKNOWN PROVIDER Facility:[facility] Start: 04-06-2022 End: 04-06-2022 ambulatory Ward Zuniga Facility:[facility] Start: 04-06-2022 End: 04-06-2022 ambulatory DO Ward Zuniga Work Phone: [facility] Work Phone: Start: 04-06-2022 End: 01-11-2023 Patient encounter procedure DO Ward Zuniga Work Phone: [facility]-XRay [address] Work Phone: Start: 01-03-2022 End: 01-03-2022 ambulatory DO Ward Zuniga Work Phone: [facility] Work Phone: Start: 01-03-2022 End: 01-03-2022 Patient encounter procedure DO Ward Zuniga Work Phone: [facility]-Lab [facility] [place] Start: 12-16-2021 End: 12-16-2021 Patient encounter procedure DO Ward Zuniga Work Phone: [facility]-Digestive Health Start: 12-15-2021 End: 12-15-2021 Patient encounter procedure DO Ward Zuniga Work Phone: [facility]-Pre-Surgical Testing Start: 12-07-2021 End: 12-07-2021 ambulatory Balwinder Parker Other [facility] [employer] Other Start: 12-07-2021 Patient encounter procedure Balwinder ARMENDARIZ [facility] Start: 11-30-2021 End: 11-30-2021 Patient encounter procedure MARYCARMEN NAVA [facility] Start: 09-08-2021 End: 09-08-2021 ambulatory Balwinder Parker Other [facility] [employer] Other Start: 09-08-2021 Telephone encounter Balwinder PARRY G G[facility]enter[facility] Start: 07-29-2021 End: 07-29-2021 Patient encounter procedure MARYCARMEN NAVA [facility] Start: 07-01-2021 End: 07-01-2021 ambulatory Balwinder Parker Other [employer] Other Start: 07-01-2021 Patient encounter procedure Balwinder Parker [facility] Gastroenterology Start: 02-23-2021 End: 02-23-2021 ambulatory Ward Mtz Other [employer] Other Start: 02-23-2021 Office outpatient vi sit 15 minutes Ward Mtz [facility] Vascular Surgery Start: 01-22-2021 (Sclerother) Sclerotherapy Ward Mtz [facility] Vascular Surgery Start: 01-22-2021 End: 01-22-2021 ambulatory Ward Mtz Other [employer] Other Start: 01-21-2021 Telephone encounter Michael Colunga [facility] Vascular Surgery Start: 12-29-2020 Office outpatient vi sit 25 minutes Michael Colunga [facility] Neurosurgery Start: 09-07-2020 End: 09-07-2020 Patient encounter procedure Ward Zuniga Work Phone: -Ultrasound [facility] Vascular Start: 08-04-2020 End: 08-04-2020 Patient encounter procedure Ward Zuniga Work Phone: -Ultrasound [facility] Vascular Start: 07-13-2020 End: 07-13-2020 Patient encounter procedure Ward Zuniga Work Phone: -[facility] [place] Surgery Start: 06-30-2020 End: 06-30-2020 Patient encounter procedure Ward Zuniga -[facility] Start: 03-31-2020 End: 03-31-2020 Admission to day [...] limb veins US venous duplex LE LT [facility] Start: 11-04-2022 US Lower extremity vein - left [facility] Start: 10-06-2022 FUV, Provider: Natan Marinelli, Status: Pen, Time: 1:30 PM FUV, Provider: Natan Marinelli, Status: Pen, Time: 1:30 PM -[facility] [address] DO Work Phone: Start: 08-25-2022 End: 08-25-2022 Patient encounter procedure 08/25/2022 Office Visit Cardiology Ericka Hale MD [address] [place] [address] [facility] Start: 07-13-2022 End: 07-13-2022 Patient encounter procedure 07/13/2022 Office Visit Trauma Surgery [facility] Trauma Surgery Start: 07-05-2022 End: 07-05-2022 Patient encounter procedure 07/05/2022 Appointment Radiology [facility] Radiology Start: 06-15-2022 End: 06-16-2023 RF Biliary ducts Views W contrast via existing catheter XA CHOLANGIOGRAM EXISTING ACCESS (RHETT) Imaging Routine Acute cholecystitis Expected: 06/15/2022, Expires: 06/16/2023 [facility] Work Phone: Comment on above: Expected: 06/15/2022 , Expires: 06/16/2023 Start: 05-15-2022 Plain chest X-ray XR chest 1V portab [facility] Start: 05-15-2022 XR Chest Single view [facility] Start: 05-15-2022 CT angiography of thorax CT angio chest PE protocol [facility] Start: 05-15-2022 CT Chest [facility] Start: 05-15-2022 Bacteria identified in Blood by Culture [facility] Start: 03-02-2022 Screening for malignant neoplasm of breast Mammography [facility] Start: 01-17-2022 COVID-19 Vaccine (2 - Pfizer series) COVID-19 Vaccine (2 - Pfizer series) [facility] Start: 12-25-2021 Annual Wellness Visi t (G0439) Annual Wellness Visit (G0439) [facility] Start: 12-16-2021 [facility] Start: 09-07-2020 Duplex scan of lower limb veins US venous duplex [facility] Start: 2018 Screening for osteoporosis Bone Densitometry [facility] Start: 2013 RSV vaccine (optiona l 60+ years) RSV vaccine (optional 60+ years) [facility] Start: 08-25-2003 Shingles (RZV) Vacci ne (1 of 2) Shingles (RZV) Vaccine (1 of 2) [facility] Start: 1998 Screening for malignant neoplasm of colon [facility] Start: 08-25-1971 Hepatitis C screening Hepatitis C An tibody [facility] Start: 08-25-1971 Tetanus + diphtheria + acellular pertussis vaccine (product) Tdap Booster [facility] Start: 1953 Screening for malignant neoplasm of colon Colonoscopy [facility] CHOLECYSTECTOMY, LAPAROSCOPIC CHOLECYSTECTOMY, LAPAROSCOPIC Routine scheduled Acute cholecystitis PERIOPERATIVE SERVICES CHOLECYSTECTOMY, LAPAROSCOPIC CHOLECYSTECTOMY, LAPAROSCOPIC Routine scheduled Acute cholecystitis [facility] End: 07-13-2022 Ecg routine ecg w/least 12 lds trcg only w/o i&r EKG 12 LEAD - PERFORM MUSE Routine Once for 1 Occurrences starting 07/13/2022 until 07/13/2022 [facility] Work Phone: Comment on above: Once for 1 Occurrenc es starting 07/13/2022 until 07/13/2022 Patient Education [facility] Work Phone: Patient referral [facility] Work Phone: Immunizations Immunization Date Immunization Notes Care Provider [facility] 01-02-2023 influenza virus vaccine, unspecified formulation Ketty Alicia [facility] 12-27-2021 Influenza, injectabl e, high-dose seasonal, quadrivalent, 0.7 mL, preservative free (JVL=901) Maegan Morris RN [facility] 12-27-2021 SARS-CoV-2 (COVID-19 ) mRNAMUL.[id number] Ketty Alicia [facility] 12-27-2021 influenza virus vaccine, unspecified formulation [facility] 03-25-2021 COVID-19 mRNA, Comirnaty (Pfizer) DO Ward Zuniga Work Phone: [facility] 01-25-2021 SARS-CoV-2 (COVID-19 ) Ad26 vaccine, recombinant MARYCARMEN NAVA [facility] 01-07-2021 influenza virus vaccine, unspecified formulation [employer] [facility] 01-07-2021 influenza, high dose seasonal, preservative-free Maegan Morris RN [facility] 01-07-2021 pneumococcal polysaccharide vaccine, 23 valent Maegan Morris RN [facility] 07-10-2020 COVID-19 mRNA, Comirnaty (Pfizer) DO Ward Zuniga Work Phone: [facility] 06-25-2020 SARS-CoV-2 (COVID-19 ) Ad26 vaccine, recombinant MARYCARMEN NAVA [facility] 06-18-2020 COVID-19 mRNA, Comirnaty (Pfizer) DO Ward Zuniga Work Phone: [facility] 05-25-2020 SARS-CoV-2 (COVID-19 ) Ad26 vaccine, recombinant MARYCARMEN NAVA [facility] 12-09-2019 influenza virus vaccine, unspecified formulation [employer] [facility] 12-09-2019 pneumococcal conjuga te vaccine, 13 valent Maegan Morris RN [facility] 12-09-2019 Seasonal trivalent influenza vaccine, adjuvanted, preservative free Maegan Morris RN [facility] 01-30-2019 KENALOG - 10 mg Michael Colunga Other [employer] Other 12-27-2018 influenza virus vaccine, unspecified formulation Ketty [employer] [facility] 12-27-2018 Seasonal trivalent influenza vaccine, adjuvanted, preservative free Maegan Morris RN [facility] 01-25-2018 influenza virus vaccine, unspecified formulation Ketty Orzech [facility] 01-25-2018 Influenza, injectabl e, Madin [place] Canine Kidney, quadrivalent with preservative Maegan Morris RN [facility] 12-27-2016 influenza virus vaccine, unspecified formulation Ketty Orzech [facility] 12-27-2016 influenza, injectabl e, quadrivalent, preservative free Maegan Morris RN [facility] 07-07-2016 Kenalog -40 mg Michael Colunga Other [employer] Other 01-25-2016 Kenalog -40 mg Michael Colunga Other [employer] Other 11-26-2015 influenza virus vaccine, unspecified formulation Ketty Orzech [facility] 10-19-2015 Kenalog -40 mg Michael Colunga Other [employer] Other 01-22-2013 influenza virus vaccine, unspecified formulation Ketty Orzech [facility] 01-22-2013 influenza, seasonal, injectable Maegan Morris RN [facility] 03-13-2009 novel [id number], preservative-free, injectable Maegan Morris RN [facility] 01-05-2000 hepatitis B vaccine, adult dosage Maegan Morris RN [facility] 08-02-1999 hepatitis B vaccine, adult dosage Maegan Morris RN [facility] 06-29-1999 hepatitis B vaccine, adult dosage Maegan Morris RN [facility] Payers Date Payer Category Payer Self-pay [id number] 2022 Medicare [id number] 2022 Medicare [employer] [id number] 2022-Present [address] [place] [address] HMO [id number] 2022 Unknown [id number]. 1.13.56.2.7.3.6 [id number] 2021 Unknown [id number] 1955 Unknown [id number] 2.16.840.1.016861.3.579.2. 1953 Unknown [id number] 2.16.840.1.250224.3.579.2. 1953 Unknown [id number] 2.16.840.1.045916.3.579.2. 1953 Unknown [id number] 2.16.840.1.897731.3.579.2 1953 Unknown [id number] 2.16.840.1.603081.3.579.2. 1953 Unknown [id number] 2.16.840.1.672476.3.579.2. 1953 Unknown [id number] 2.16.840.1.297118.3.579.2. 1953 Unknown [id number] 2.16.840.1.174567.3.579.2. 1953 Unknown [id number] 2.16.840.1.396376.3.579.2. 1953 Unknown [id number] 2.16.840.1.590020.3.579.2 1953 Unknown [id number] 2.16.840.1.974357.3.579.2.732 1953 Unknown [id number] 2.16.840.1.597753.3.579.2.73 1953 Unknown [id number] 2.16.840.1.616363.3.579.2.73 1953 Unknown [id number] 2.16.840.1.794527.3.579.2.73 1953 Unknown [id number] 2.16.840.1.436864.3.579.2.73 1953 Unknown [id number] 2.16.840.1.178064.3.579.2.73 1953 Unknown [id number] 2.16.840.1.017594.3.579.2.356 1953 Unknown [id number] 2.16.840.1.568781.3.579.2.356 1953 Unknown [id number] 2.16.840.1.931108.3.579.2. 1953 Unknown [id number] 2.16.840.1.542478.3.579.2. 1953 Unknown [id number] 2.16.840.1.900047.3.579.2. 1953 Unknown [id number] 2.16.840.1.213008.3.579.2. 1953 Unknown [id number] 2.16.840.1.349519.3.579.2. 1953 Unknown [id number] 2.16.840.1.919514.3.579.2. 1953 Unknown [id number] 2.16.840.1.667146.3.579.2.1259 1953 Unknown [id number] 2.16.840.1.111977.3.579.2.1258 1953 Unknown [id number] 2.16.840.1.730818.3.579.2.1258 1953 Unknown [id number] 2.16.840.1.655752.3.579.2.1258 1953 Unknown [id number] 2.16.840.1.702114.3.579.2.1258 1953 Unknown [id number] 2.16.840.1.512657.3.579.2.1258 1953 Unknown [id number] 2.16.840.1.418010.3.579.2.1258 1953 Unknown [id number] 2.16.840.1.185294.3.579.2.1258 1953 Unknown [id number] 2.16.840.1.704447.3.579.2.1258 1953 Unknown [id number] 2.16.840.1.577379.3.579.2.125 Unknown [id number] Unknown [id number] 2.16.840.1.490236.3.579.2.531 Unknown [id number] 2.16.840.1.407258.3.579.2.531 Unknown [id number] 2.16.840.1.937666.3.579.2.531 Unknown [id number] 2.16.840.1.647917.3.579.2.531 Unknown [id number] 2.16.840.1.360685.3.579.2.531 Unknown [id number] 2.16.840.1.288119.3.579.2.531 Unknown [id number] 2.16.840.1.209758.3.579.2.531 Unknown [id number] 2.16.840.1.406419.3.579.2.531 Unknown [id number] 2.16.840.1.892512.3.579.2.531 Social History Date Type Detail Facility Start: 03-31-2020 End: 02-27-2023 Tobacco smoking status NHIS Ex-smoker (finding) [facility] Start: 1955 Sex Assigned At Female F [facility] Sex Assigned At Female [employer] Other Start: 05-15-2022 End: 12-17-2022 Tobacco smoking status NHIS Current some day smoker [facility] End: 03-27-2009 History of tobacco use [...] smoking status NHIS Never smoked tobacco (finding) [facility] Tobacco smoking status Never [facility] Goals Date Patient Goal Desired Activity /State Functional Status Date Assessment Result Facility 03-02-2023 Functional Status N/A [facility] 09-26-2022 Functional Status N/A [facility] 07-18-[address] [facility] 11-30-2021 Functional Status N/A [facility] Clinical Notes 12-29-2020 to 03-02-2023 Note [...] provider. Document Revised: 07/22/2021 Document Reviewed: 07/22/2021 [employer] Patient Education 2022 [employer]. Follow Up Care 11/30/2021 13:34:28 With:DARRYN Alicia APRN, Ketty Jaeger, SHAHNAZ, URL Address: When:Within 1 Year(s) [facility] Elvis 02-27-2023 Progress note Note Date/Time February 27, 2023 2:36pm [facility] [address] [place] [address] Wound Center Provider Note Signed Patient: Gerry Victoria MR#: [id number] : 1955 Acct:[id number] Age/Sex: 67 / F Copies to: DO Adelia Cruz, CUBA~ HPI Date of Visit Date of Visit: Date of Service: 02/27/2023 Time of Service: 14:33 Narrative HPI: 02/02/23 Gerry is a 67 year old presenting to [facility] wound care for an initialvisit for the [...] tolerate the treatment. Had been referred to [place] vein at her last visit here and will have to see what happened with that. 02/13/23 appears to have fungal rash, topical nystatin was escribed, unna wrap, [facility] as before 02/27/23 no fungal rash but now looks like dermatitis and so topical steroid and coconut oil was applied, has venous procedure in [place] tomorrow, 2 week appt here, can call if she feels like she needs an antibiotic if the steroid doesn't calm down the skin Subjective Pain Left Lower Leg: Pain Description: Intermittent Pain Intensity: 0 Wound/Ulcer History When did wound start?: January 2023 Left lateral lower leg ulcer Mode of Arrival/ Software Configuration Analyst: Personal vehicle Lives with:: Alone Appetite Description: Within Normal Limits Who helps w/ dressing change?: Home Health Why Do You Need Help?: Can't Reach Ulcer, Limited mobility, Unsafe leave home byself and Taxing effort to leave home Smoking Status: Former smoker [facility] Medical History (Updated 02/27/23 @ 14:36 by [...] Appearance: Beefy Red, Epithelial Tissue or Bridge, [place] and Yellow Percent of Wound Bed Granulated/Red: 98 Percent of Devitalized: 2 Length (cm): 12.0 Width (cm): 10.0 Depth (cm): 0.1 CM Sq: 120.000 Surrounding Tissue Appearance: [place] and Hyperpigmented Surrounding Tissue Temp: Warm Drainage [...] By: <Electronically signed by CUBA Saldana> 02/27/[address] [place] [address] Work Phone: 1(147) 588-212911-20-2023 Progress note Author Adelia Saldana [facility] February 13, 2023 10:33am Note Date/Time February 13, 2023 10:33am [facility] [address] [place] [address] Wound Center Provider Note Signed Patient: Gerry Victoria MR#: [id number] : 1955 Acct:[id number] Age/Sex: 67 / F Copies to: DO Adelia Cruz APRN~ HPI Date of Visit Date of Visit: Date of Service: 02/13/2023 Time of Service: 10:31 Narrative HPI: 02/02/23 Gerry is a 67 year old presenting to [facility] wound care for an initialvisit for the [...] rash, topical nystatin was escribed, unna wrap, [facility] as before Subjective Pain Left Lower Leg: Pain Description: Intermittent Pain Intensity: 4 Pain Management Techniques Other/Comment: PAIN IS PINCHY Wound/Ulcer History When did wound start?: January 2023 Left lateral lower leg ulcer Mode of Arrival/ Software Configuration Analyst: Personal vehicle Lives with:: Alone Appetite Description: Within Normal Limits Who helps w/ dressing change?: Home Health Why Do You Need Help?: Can't Reach Ulcer, Limited mobility, Unsafe leave home byself and Taxing effort to leave home Smoking Status: Former smoker [facility] Medical History (Updated 02/13/23 @ 10:33 by [...] Breakdown Bed Appearance: Epithelial Tissue or Bridge, [place] and Yellow Percent of Wound Bed Granulated/Red: 95 Percent of Devitalized: 5 Length (cm): 12.5 Width (cm): 8.5 Depth (cm): 0.1 CM Sq: 106.250 Surrounding Tissue Appearance: [place] and Hyperpigmented Surrounding Tissue Temp: Warm Drainage [...] By: <Electronically signed by CUBA Saldana> 02/13/231032 [facility] Work Phone: 1(330) 121-643111-09-2023 Progress note Author Humphrey Major [facility] February 02, 2023 9:37am Note Date/Time February 02, 2023 7 :50am [facility] [address] [place] [address] Wound Center Provider Note Signed Patient: Gerry Victoria MR#: [id number] : 1955 Acct:[id number] Age/Sex: 67 / F Copies to: MD Ward Almaguer DO Tonia Copsey, APRN~ HPI Date of Visit Date of Visit: Date of Service: 02/02/2023 Time of Service: 07:50 Narrative HPI: 02/02/23 Gerry is a 67 year old presenting to [facility] wound care for an initialvisit for the [...] lateral lower leg ulcer Mode of Arrival/ Software Configuration Analyst: Personal vehicle Lives with:: Alone Appetite Description: Within Normal Limits Who helps w/ dressing change?: Home Health Why Do You Need Help?: Can't Reach Ulcer, Limited mobility, Unsafe leave home byself and Taxing effort to leave home Smoking Status: Former smoker [facility] Medical History (Updated 02/02/23 @ 07:52 by [...] Stasis Ulcer Thickness: Skin Breakdown Bed Appearance: [place] and Yellow Percent of Wound Bed Granulated/Red: 90 Percent of Devitalized: 10 Length (cm): 4 Width (cm): 2 Depth (cm): 0.1 CM Sq: 8.000 Surrounding Tissue Appearance: [place] and Hyperpigmented Surrounding Tissue Temp: Warm Drainage [...] signed by MD Humphrey Major> 02/02/23 0937 [facility] Work Phone: 1(661) 289-812010-09-2023 Evaluation note* Encounter Date Diagnosis Assessment Notes [...] in a month to assess her progress. [employer] Other 07-31-2023 Evaluation note* Encounter Date Diagnosis [...] her back when the ultrasound is complete. [employer] Other 07-11-2023 NoteMicrobiology PROCEDURE: Blood Culture Charcoal [R1] SOURCE: Blood BODY SITE: Arm L COLLECTED DATE/TIME: 09/27/2022 01:12 EDT RECEIVED DATE/TIME: 09/27/2022 01:37 EDT START DATE/TIME: 09/27/2022 01:37 EDT FREE TEXT SOURCE: IV start Bala SNOWEDN, Michelle Mckenna PA-C, Michelle Weber. FINAL REPORTS Final Report [] Verified Date/Time: 10/04/2022 07:00 EDT No growth at 7 days. Performing Locations R1: This test was performed at: [facility], [address] [place] [address], [id number] [place] [address], [address] [place], [place] [address]Comment on above:Performed By: #### [id number] #### [facility] [address] [place] [address] [id number] NoteMicrobiology PROCEDURE: Blood Culture Charcoal [R1] SOURCE: Blood BODY SITE: Arm R COLLECTED DATE/TIME: 09/27/2022 01:22 EDT RECEIVED DATE/TIME: 09/27/2022 01:37 EDT START DATE/TIME: 09/27/2022 01:37 EDT FREE TEXT SOURCE: rt ac Bala SNOWDEN, Michelle Mckenna PA-C, Michelle Weber. FINAL REPORTS Final Report [] Verified Date/Time: 10/04/2022 07:00 EDT No growth at 7 days. Performing Locations R1: [facility], [address] [place] [address], [id number] [place] [address], [address] [place], [place] [address]Comment on above:Performed By: #### [id number] #### [facility] [address] [place] [address] [phone] Evaluation + Plan noteExtracted from: Title:Admission H & P Author:Maliha PADILLA DO Date:09/27/22 1. Cellulitis of leg (L03.11 9: Cellulitis of unspecified part of limb) IV Zosyn. Patient was given 1 dose of vancomycin in the emergency department. Will screen for MRSA. If MRSA screen is positive we will continue vancomycin. 2. 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 Alexx Beal DO, FAAEMFisher Greater Baltimore Medical CenterComment on above:Result Comment: Electronically Signed By: Alexx Beal DO.br\Date and Time Signed: 09/27/22 08:17 [id number] Hospital Discharge instructions Patient Education 09/27/2022 08:15:11 Cellulitis, Adult, Tsbq-fk-Wkei Cellulitis, Adult Cellulitis is a skin infection. [...] Follow these instructions at home: Medicines Take rbjj-rzd-dfoiabl and prescription medicines only as told by [...] provider. Document Revised: 12/23/2021 Document Reviewed: 12/23/2021 [employer] Patient Education 2022 Kleo. Follow Up Care 09/26/2022 22:54:12 With:WARD ZUNIGA Address: [address] [address] When:09/30/2022 [facility]07-04-2023 NoteChief Complaint pt to ED with c/o [...] % (09/27/22:12:00) Lymph Auto: 18 % (09/27/22:12:00) [place] Auto: 11.2 % (09/27/22:12:00) Eos Auto: 8.4 % High (09/27/22:12:00) Basophil Auto: 1 % (09/27/22:12:00) Neutro Absolute: 3.6 E9/L (09/27/22:12:00) Lymph Absolute: 1.1 E9/L (09/27/22:12:00) [place] Absolute: 0.7 E9/L (09/27/22:12:00) Eos Absolute: 0.5 E9/L (09/27/22:12:00) Basophil Absolute: 0.1 E9/L (09/27/22:12:00) Sed Rate Automated: 25 mm/hr (09/27/22:12:00) Glucose Lvl: 84 mg/dL (09/27/22 01:12:00) BUN: 17 mg/dL (09/27/22 01:12:00) Creatinine: 1.2 mg/dL (09/27/22:12:00) eGFR: 49 mL/min/1.73 [...] atherosclerotic disease) (I25.10: Atherosclerotic heart disease of craig coronaryartery without angina pectoris) No active anginal complaints. We will resume home medications once reconciled 3. RLS (restless legs syndrome) (G25.81: Restless legs syndrome) Resume home medications once reconciled. 4. Hypo (more content not included)...[facility]:Result Comment: Electronically Signed By: Maliha PADILLA DO\Date and Time Signed: 09/27/22 04:19 [id number] Hospital Discharge instructions Patient Education 07/26/2022 13:13:28 Post Op Patient Instructions - FT (CUSTOM) 07/26/2022 12:47:31 Minimally Invasive Cholecystectomy, Care After, Kdlj-to-Btwo Minimally Invasive Cholecystectomy, Care After What can [...] Follow these instructions at home: Medicines Take uzyw-gmh-nuvkcbg and prescription medicines only as told by [...] cannot use soap and water, use hand hardware sales assistant. ?Change your bandage. ?Leave stitches (sutures) or [...] provider. Document Revised: 09/14/2021 Document Reviewed: 09/14/2021 [employer] Patient Education 2022 Kleo. 07/26/2022 12:45:51 Cholelithiasis Cholelithiasis Cholelithiasis is a [...] Follow these instructions at home: Medicines Take gtqe-eox-rnttafb and prescription medicines only as told by [...] important. Where to find more information National [place] of Diabetes and Digestive and Kidney Diseases: [...] provider. Document Revised: 02/03/2020 Document Reviewed: 02/03/2020 [employer] Patient Education 2022 Kleo. Follow Up Care 07/15/2022 10:10:38 With:trauma clinic Address: [address] [place] [address], second floor, [address] [place] [address]- [phone] When:1 to 2 weeks Comments:plan for telephone follow up 08/05/22. We will call you between the hours of 10 am and 1pm on that day. [facility]05-02-2023 Evaluation + Plan noteExtracted from: Title:ANES Post General Author:Hugo Winston DO Date:07/26/22 Plan Transfer/Discharge: Patient exhibiting no signs of N/V. Hydration status is adequate. Extracted from: Title:Mundo Basic PRE Author:Luca Winston DO Date:07/26/22 Plan [place] [employer]esthesi[employer] (ASA) physical status classification: Class III. Anesthetic Preoperative Plan: Anesthesia General. Extracted from: Title:Mundo Basic PRE Author:Luca Winston DO Date:07/26/22 Plan [place] [employer]hesi[employer] (ASA) physical status classification: Class III. Anesthetic Preoperative Plan: Anesthesia General. Future Appointments Appointment Date:08/05/2022 11:00:00 AM Scheduled Provider: [facility] Clinic Appointment Type:Trauma Phone Visit (FT) Appointment Date:12/01/2022 01:00:00 PM Scheduled Provider:MARYCARMEN NAVA PA-C Location:[facility] Appointment Type:URO Office Visit [facility]04-19-2023 NoteProgress Note: Clinic Visit after hospitalization for [...] perc merlyn tube until surgery [facility] History of Present illness [...] surgery Nikita Hein MD documented in this [id number] NoteIR CONSULT Procedure: cholangiogram and percutaneous cholecystotomy [...] at home Case discussed with IR attending learning and development consultant El Hollis group president PGY-3[facility] [id number] History and physical note* El Hollis MD [...] at home Case discussed with IR attending learning and development consultant El Hollis group president PGY-3 [facility] Work Phone: 1(982) 505-323004-12-2023 History and physical note* El Hollis MD [...] at home Case discussed with IR attending learning and development consultant El Hollis group president PGY-3 documented in this [id number] Telephone encounter Note* Telephone Encounter - Kendra Harrison RN - 07/06/2022 8:53 PM EDT Situation: Pt called states she is unsure how to flush gall bladder tube since it was changed yesterday. Background: 07/05/22 Procedure: Cholecystogram with catheter exchange Assessment: See triage Recommendation: Contacted IR learning and development consultant, Dr Hollis advised for pt to contact [...] No Protocols used: Post-Op Incision Symptoms and Ursdeaycz-L-BC [id number] Miscellaneous Notes* Telephone Encounter - Kendra Harrison RN - 07/06/2022 8:53 PM EDT Situation: Pt called states she is unsure how to flush gall bladder tube since it was changed yesterday. Background: 07/05/22 Procedure: Cholecystogram with catheter exchange Assessment: See triage Recommendation: Contacted IR learning and development consultant, Dr Hollis advised for pt to contact [...] No Protocols used: Post-Op Incision Symptoms and Bdcwnbtzl-E-FP documented in this [id number] Telephone encounter Note* Telephone Encounter - Taniya Coley - 07/06/2022 9:10 AM EDT Sindy Ratliff Patient: Gerry Victoria [phone] Ms. Victoria has an appt w/Ritter on 07/13/2022 at 2:45 pm. Pt complaining about severe pain last night, when she moved, it was an ache. She did not tell me where the pain was coming from, when I asked her. She stated that today she feels better, but she was concerned about the pain she experienced last night 07/05/2022. [id number] Miscellaneous Notes* Telephone Encounter - Taniya Coley - 07/06/2022 9:10 AM EDT Sindy Ratliff Patient: Gerry Victoria [phone] Ms. Victoria has an appt w/Ritter on 07/13/2022 at 2:45 pm. Pt complaining about severe pain last night, when she moved, it was an ache. She did not tell me where the pain was coming from, when I asked her. She stated that today she feels better, but she was concerned about the pain she experienced last night 07/05/2022. documented in this [id number] NoteEXAMINATION: XA CHOLANGIOGRAM EXISTING ACCESS (RHETT) 07/05/2022 [...] successful exchange of drainage catheter. MACRO: NoneThe [facility] [id number] NotePOST-PROCEDURE NOTE Procedure: Cholecystogram with catheter exchange Pre-operative Diagnosis: History of acute cholecystitis managed with existing catheter. Post-operative Diagnosis: Same as above Attending: Dr. Fernando Box Bender: None A TIME OUT was performed prior [...] full procedural details. Marcella Fernando MD RadiologyThe [facility]04-11-2023 NoteEXAMINATION: XA CHOLANGIOGRAM EXISTING ACCESS (RHETT) [...] successful exchange of drainage catheter. MACRO: None [id number] NotePre-Procedure Note HISTORY: Procedure: Cholangiogram via existing [...] Directives (Living will, health care power of wire winding machine tender): none Patient Recent Code Status: Prior Code Status For This Procedure: Full Code Marcella Fernando MD [facility]04-11-2023 Telephone encounter Note* Telephone Encounter - Anya Morelos - 07/05/2022 3:11 PM EDT Patient returned clinic call. Informed of message per notes below. Patient verbalized understandingand voiced no further questions. [id number] Miscellaneous Notes* Telephone Encounter - Anya Morelos [...] left the voice message. documented in this [id number] Miscellaneous Notes* Telephone Encounter - Anya Morelos [...] appt date and time. documented in this [id number] Telephone encounter Note* Telephone Encounter - Taniya [...] and accepted the appt date and time. [id number] Note* Post-Procedure Note - Marcella Fernando MD - 07/05/2022 2:44 PM EDT POST-PROCEDURE NOTE Procedure: Cholecystogram with catheter exchange Pre-operative Diagnosis: History of acute cholecystitis managed with existing catheter. Post-operative Diagnosis: Same as above Attending: Dr. Fernando Box Bender: None A TIME OUT was performed prior [...] full procedural details. Marcella Fernando MD Radiology [facility] Work Phone: [phone] Miscellaneous Notes* Post-Procedure Note - Marcella Fernando MD - 07/05/2022 2:44 PM EDT POST-PROCEDURE NOTE Procedure: Cholecystogram with catheter exchange Pre-operative Diagnosis: History of acute cholecystitis managed with existing catheter. Post-operative Diagnosis: Same as above Attending: Dr. Fernando Box Bender: None A TIME OUT was performed prior [...] Directives (Living will, health care power of wire winding machine tender): none Patient Recent Code Status: Prior Code Status For This Procedure: Full Code Marcella Fernando MD Radiology documented in this [id number] Note* Pre-Procedure Note - Marcella Fernando MD [...] Directives (Living will, health care power of wire winding machine tender): none Patient Recent Code Status: Prior Code Status For This Procedure: Full Code Marcella Fernando MD Radiology [id number] Telephone encounter Note* Telephone Encounter - Taniya Coley - 06/27/2022 1:27 PM EDT Pt called c/o sx of poor leg circulation,and Gaudencio spoke to her to triage the patient. [id number] Miscellaneous Notes* Telephone Encounter - Taniya Coley - 06/27/2022 1:27 PM EDT Pt called c/o sx of poor leg circulation,and Gaudencio spoke to her to triage the patient. documented in this [id number] NoteProgress Note: Clinic Visit after hospitalization for [...] for 2 mg QID Nikita Hein MDThe [facility]03-25-2023 Note* Addendum Note - Nikita Hein MD - 06/18/2022 3:47 PM EDTAddended by: NIKITA HEIN on: 06/18/2022 03:47 PM Modules accepted: Orders, Level of Service [id number] Miscellaneous Notes* Addendum Note - Nikita Hein MD - 06/18/2022 3:47 PM EDTAddended by: NIKITA HEIN on: 06/18/2022 03:47 PM Modules accepted: Orders, Level of Service documented in this [id number] History of Present illness Narrative* Nikita Hein [...] QID Nikita Hein MD documented in this [id number] Telephone encounter Note* Telephone Encounter - Laura Faust - 06/17/2022 11:27 AM EDT Sophy transferred phone call to me, when the patient and I started talk I realized it was the patientI had Sophy working on since Dr. Hein seen her in clinic on [facility]. Sophy said she spoke to patient yesterday, so I just told her what Sophy told me that Dr. Hein will handle the Rx to have the scan done out where she lives and that Sophy will get it to her in the mail by Monday [id number] Miscellaneous Notes* Telephone Encounter - Laura Faust - 06/17/2022 11:27 AM EDT Sophy transferred phone call to me, when the patient and I started talk I realized it was the patientI had Sophy working on since Dr. Hein seen her in clinic on [facility]. Sophy said she spoke to patient yesterday, so I just told her what Sophy told me that Dr. Hein will handle the Rx to have the scan done out where she lives and that Sophy will get it to her in the mail by Monday documented in this [id number] Telephone encounter Note* Telephone Encounter - Taniya Coley - 06/16/2022 2:02 PM EDT Sindy Morales, Patient: Gerry Victoria [phone] Ms. Victoria had a visit with Dr. Conley on Monday06/15/2022, [facility]. Questions: Ultrasound order was placed for Ms. Victoria, do she have to come her to [facility] to have the ultrasound, or can she have the ultrasound done in [facility]? (there is not a [facility] in [facility]) Medication refill of Ropinirole 2mg 1-tab QD was not received by her pharmacy, can you call in the prescription to my pharmacy at ([facility] ) [phone]?. I am waiting for Carmen, or and or Dr. Conley to respond. Sophy Knowles was told that Dr. Hein was out of town and that she will receive the prescription in the mail.I will call the patient to find out what hospitals she will be going to in [facility] [phone] fax:[phone] Gaudencio spoke to her about the prescription and to contact her pharmacy about the ropinirole 2 mg to [facility]. Addendum: IR procedure, Gaudencio will follow-up with [facility] to see if they can do the IR procedure, we will submit or fax orders at that time. [id number] Miscellaneous Notes* Telephone Encounter - aTniya Coley - 06/16/2022 2:02 PM EDT Sindy Morales, Patient: Gerry Victoria [phone] Ms. Victoria had a visit with Dr. Conley on Monday06/15/2022, seen by Dr. Hein in yesterday's clinic. Questions: Ultrasound order was placed for Ms. Victoria, do she have to come her to [facility] to have the ultrasound, or can she have the ultrasound done in [facility]? (there is not a [facility] in [facility]) Medication refill of Ropinirole 2mg 1-tab QD was not received by her pharmacy, can you call in the prescription to my pharmacy at ([facility] ) [phone]?. I am waiting for Carmen, or and or Dr. Conley to respond. Sophy documented in this [id number] Miscellaneous Notes* Telephone Encounter - Taniya Coley - 06/16/2022 2:02 PM EDT Sindy Morales, Patient: Gerry Victoria [phone] Ms. Victoria had a visit with Dr. Conley on Monday06/15/2022, seen by Dr. Hein in yesterday's clinic. Questions: Ultrasound order was placed for Ms. Victoria, do she have to come her to [facility] to have the ultrasound, or can she have the ultrasound done in [facility]? (there is not a [facility] in [facility]) Medication refill of Ropinirole 2mg 1-tab QD was not received by her pharmacy, can you call in the prescription to my pharmacy at ([facility] ) [phone]?. I am waiting for Carmen, or and or Dr. Conley to respond. Sophy Pt was told that Dr. Hein was out of town and that she will receive the prescription in the mail.I will call the patient to find out what hospitals she will be going to in [facility] [phone] fax:[phone] Gaudencio spoke to her about the prescription and to contact her pharmacy about the ropinirole 2 mg to [facility]. documented in this [id number] Miscellaneous Notes* Telephone Encounter - Taniya Coley - 06/16/2022 2:02 PM EDT Sindy Carmen, Patient: Gerry Victoria [phone] Ms. Victoria had a visit with Dr. Conley on Monday06/15/2022, seen by Dr. Hein in yesterday's clinic. Questions: Ultrasound order was placed for Ms. Victoria, do she have to come her to [place] to have the ultrasound, or can she have the ultrasound done in [facility]? (there is not a [facility] in [facility]) Medication refill of Ropinirole 2mg 1-tab QD was not received by her pharmacy, can you call in the prescription to my pharmacy at ([facility] ) [phone]?. I am waiting for Carmen, or and or Dr. Conley to respond. Sophy Pt was told that Dr. Hein was out of town and that she will receive the prescription in the mail.I will call the patient to find out what hospitals she will be going to in [facility] [phone] fax:[phone] Gaudencio spoke to her about the prescription and to contact her pharmacy about the ropinirole 2 mg to [facility]. Addendum: IR procedure, Gaudencio will follow-up with [facility] to see if they can do the IR procedure, we will submit or fax orders at that time. documented in this [id number] Telephone encounter Note* Telephone Encounter - Maegan [...] Not assessed Protocols used: Post-Op Symptoms and Qmcigdkfr-Q-FA, Breathing Kvxziflvqq-I-PP [id number] Miscellaneous Notes* Telephone Encounter - Maegan Morris [...] Not assessed Protocols used: Post-Op Symptoms and Egpzyiufu-Q-FQ, Breathing Azptgvwkhh-L-YP documented in this [id number] NoteDISCHARGE SUMMARY [address] [id number] Gerry Victoria Date of : 1955 66 year oldfemale Attending Ward Graves MD Date of Admission 05/16/2022 Date of Discharge 05/25/2022 [facility] DIV[facility] OF ACUTE CARE SURGERY [...] and h/o paroxysmal SVT who presented to [facility] with epigastric pain with nausea and vomiting. Patient describes onset of pain on prior day that has increased since then. Shortly after onset of pain, patient experienced nausea and persistent vomiting, now unable to tolerate PO intake. Denies fevers, chills. She presented to [facility] where EKG demonstrated 'hyperacute T waves' in multiple leads without evidence of STEMI. Troponin originally 139, then 381 on repeat. CTA was performed and did not reveal dissection or PE. CT did demonstrate acute inflammation of the gallbladder with a stone at the neck. A central line was placed for resuscitation purposes and the patient was transferred to [facility] for further evaluation. Prior to transfer, lab work without leukocytosis (10.7) and LFTs/Lipase without abnormality. ACS consulted upon arrival to [facility] for cholecystitis. She was admitted to the SDU for telemetry under EGS but transferred to [facility] on 05/20/22 SIGNIFICANT FINDINGS: N/A Incidental findings reviewed by AEM on 05/24/22. No incidental findings to discuss. HOSPITAL COURSE: 05/16/2022: Transferred from [facility] ED with cholecystitis, up-trending troponin, and unclear EKG findings. Up-trending leukocytosis, down-trending troponin by PM. Cardiology following. Zosyn started. 05/17/2022: rCT with worsening gallbladder inflammation w/o free air or rupture. Percutaneous cholecystotomy tube placement with IR. 05/19/2022: Bilious emesis, NGT placed 05/20/2022: Transferred to [facility] 05/21/2022: Zosyn course completed (4 days s/p drain) 05/22/2022: YANN, ongoing bilious NGT output 05/23/2022: [facility] with mild non-obstructive diffuse coronary artery disease. [...] - Seen resting supine in bed in [facility] -Neurologic - No focal deficits, clear speech [...] venous stasis t (more content not included)...[facility] [id number] NoteDISCHARGE SUMMARY [place] [address] Gerry Victoria Date of : 1955 66 year oldfemale Attending Ward Graves MD Date of Admission 05/16/2022 Date of Discharge 05/24/2022 [facility] OF ACUTE CARE SURGERY [...] and h/o paroxysmal SVT who presented to [facility] with epigastric pain with nausea and vomiting. Patient describes onset of pain on prior day that has increased since then. Shortly after onset of pain, patient experienced nausea and persistent vomiting, now unable to tolerate PO intake. Denies fevers, chills. She presented to [facility] where EKG demonstrated 'hyperacute T waves' in multiple leads without evidence of STEMI. Troponin originally 139, then 381 on repeat. CTA was performed and did not reveal dissection or PE. CT did demonstrate acute inflammation of the gallbladder with a stone at the neck. A central line was placed for resuscitation purposes and the patient was transferred to [facility] for further evaluation. Prior to transfer, lab work without leukocytosis (10.7) and LFTs/Lipase without abnormality. ACS consulted upon arrival to [facility] for cholecystitis. She was admitted to the SDU for telemetry under EGS but transferred to [facility] on 05/20/22 SIGNIFICANT FINDINGS: N/A Incidental findings reviewed by AEReid on 05/24/22. No incidental findings to discuss. HOSPITAL COURSE: 05/16/2022: Transferred from [facility] ED with cholecystitis, up-trending troponin, and unclear EKG findings. Up-trending leukocytosis, down-trending troponin by PM. Cardiology following. Zosyn started. 05/17/2022: rCT with worsening gallbladder inflammation w/o free air or rupture. Percutaneous cholecystotomy tube placement with IR. 05/19/2022: Bilious emesis, NGT placed 05/20/2022: Transferred to [facility] 05/21/2022: Zosyn course completed (4 days s/p drain) 05/22/2022: YANN, ongoing bilious NGT output 05/23/2022: [facility] with mild non-obstructive diffuse coronary artery disease. [...] discharge: improved Diet: (more content not included)...[facility] [id number] Note PHYSICAL THERAPY PROGRESS SUMMARY Patient seen [...] Dep Max Mod Min CG CS DS KS I Comment Supine to sit x Via [...] With Patients permission ordered no equipment via [employer] Order. If any questions contact [facility] DME Provider at [phone]. Pt has rolling walker to use if [...] PT service d/t achieving PT goals. Dara West HAND LENS POLISHER Beeper #[phone] Agree with above; D/C Acute PT this date 2* to modified (I) level of function. Tawny Peñaloza, PT, MPT (B) [phone] NA = Not Assessed, I = Independent, KS = Modified Independent, Sup = Supervised, Set up = Physical Assistance for Set-up Only, Min = Minimal Assistance, Mod = Moderate Assistance, Max = Maximal assistance; Dep = Dependent; AROM = Active Range of Motion; PROM = Passive Range of Motion; MMT = Manual Muscle TestAdena Regional Medical Center02-27-2023 NoteSusan Didion [id number] Procedure Indication: Other: Myocardial injury due to [...] needed: No Anticoagulation Plan: None Attending: Deandre [facility]02-26-2023 NoteOCCUPATIONAL THERAPY INITIAL EVALUATION Patient seen [...] Dep Max Mod Min CG CS DS KS I Set-Up Comment Feeding x Anticipated, NPO [...] Dep Max Mod Min CG CS DS KS I Set-Up Comment Toilet Transfers x Anticipated [...] Guard Assist/Supervision 4 - Non = Modified [place]/Independent ASSESSMENT: Patient is functionally appropriate for discharge [...] Independent Patient will (more content not included)...[facility] [id number] Note PHYSICAL THERAPY PROGRESS SUMMARY Patient seen from 1:27pm to 1:47pm on GC5E unit for 20 minute treatment. SUBJECTIVE: Patient Subjective/Goals: I'm glad you're here. OBJECTIVE: Appearance: IV, Drain-IR x 1, and NG to wall suction (clamped for session) Behavior: Awake, Cooperative Pain: Site/Location: none noted during session Mobility NA Dep Max Mod Min CG CS DS KS I Comment Supine to sit x Transfers [...] With Patients permission ordered no equipment via [employer] Order. If any questions contact [facility] DME Provider at [phone]. 6 Clicks Basic Mobility PT 05/20/2022 Difficulty [...] NA = Not Assessed, I = Independent, KS = Modified Independent, Sup = Supervised, Set up = Physical Assistance for Set-up Only, Min = Minimal Assistance, Mod = Moderate Assistance, Max = Maximal assistance; Dep = Dependent; AROM = Active Range of Motion; PROM = Passive Range of Motion; MMT = Manual Muscle TestThe [facility] [id number] NoteSICU Progress Note Gerry Victoria [id number] LOS: 4 days : Interval History/Events: Pain improved Started vomiting this am Passing gas Background: Gerry Victoria is a 66 year old female with PMH of hypertension, RLS, GERD who presented to [facility] with progressive worsening epigastric pain with nausea and vomiting for the past day. Denies fevers, CP, dyspnea. Found to have elevated T waves and uptrending tropopnins. CT ab with acute inflammation of the gallbladder with a stone at the neck and transferred to [facility]. RUQ US with impacted gallstone at [...] BUN Cr Ca Mg PO4 05/20/22216 1.8 05/20/22 021 137 3.8 100 30 11 105 5 0.71 7.6 05/19/22 0355 1.8 05/19/22 0355 139 3.5 [...] without focal consolidation, no pneumothorax - respiratory quality control assessor protocol, BPH, IS CARD: #T2MI #possible CAD [...] RUQ US with (more content not included)...[facility] [id number] Note 05/19/22 1540 Assessment and Discharge Planning [...] SW or DC concerns arise. Annabelle Connor, JD [facility], LSWThe [facility] [id number] NotePHYSICAL THERAPY PROGRESS SUMMARY PT tx cleared by RN. Patient seen from 1354 to 1417 on 5W unit for 23 minute treatment. SUBJECTIVE: Patient Subjective/Goals: oh, look at you! Re: PT untangling lines and wires. OBJECTIVE: Appearance: Resting in bed upon arrival, BP cuff, sandwich artist, Pulse Oximeter, IV, Drain x1, Fu, and [...] Dep Max Mod Min CG CS DS KS I Comment Roll to right sidelying Roll [...] With Patients permission ordered no equipment via [employer] Order. If any questions contact [facility] DME Provider at [phone]. 6 Clicks Basic Mobility PT 05/18/2022 Difficulty [...] NA = Not Assessed, I = Independent, KS = Modified Independent, Sup = Supervised, Set up = Physical Assistance for Set-up Only, Min = Minimal Assistance, Mod = Moderate Assistance, Max = Maximal assistance; Dep = Dependent; AROM = Active Range of Motion; PROM = Passive Range of Motion; MMT = Manual Muscle TestThe [facility] [id number] NoteSICU Progress Note Gerry Victoria [id number] POD#: 0 LOS: 3 days : Interval History/Events: Pain improved Started vomiting this am Passing gas Background: Gerry Victoria is a 66 year old female with PMH of hypertension, RLS, GERD who presented to [facility] with progressive worsening epigastric pain with nausea and vomiting for the past day. Denies fevers, CP, dyspnea. Found to have elevated T waves and uptrending tropopnins. CT ab with acute inflammation of the gallbladder with a stone at the neck and transferred to [facility]. 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 If any questions contact [facility] DME Provider at [phone]. 6 Clicks Basic Mobility PT 05/18/2022 Difficulty [...] functional mobility Decreased (more content not included)...[facility] [id number] Note EXAMINATION: XA PERCUTANEOUS CHOLECYSTOSTOMY (RHETT) 05/17/2022 [...] was used for local anesthesia. A 5F PM Pediatrics catheter over its matched stylet was inserted into the gallbladder lumen under ultrasoundguidance. The stylet was removed. An Amplatz wire was passed through the catheter and the catheter removed. Ultrasound was utilized to document wire position within the gallbladder lumen. Serial dilatation was then subsequently performed with an 8 and 10 Japanese dilator. A 10 F all purpose drain [...] Technically successful uncomplicated cholecystostomy tube placement. MACRO: [facility] [id number] NoteSICU Progress Note Gerry Victoria [id number] POD#: 0 LOS: 2 days : Interval History/Events: Background: Gerry Victoria is a 66 year old female with PMH of hypertension, RLS, GERD who presented to [facility] with progressive worsening epigastric pain with nausea and vomiting for the past day. Denies fevers, CP, dyspnea. Found to have elevated T waves and uptrending tropopnins. CT ab with acute inflammation of the gallbladder with a stone at the neck and transferred to [facility]. RUQ US with impacted gallstone at [...] 101 27 12 77 12 0.78 7.7 05/17/221 3.9 05/17/221 1.9 05/17/22410 131 4.1 97 [...] AND Ox3 CV: RRR Pulm: CTAB on Mo Abdomen: still diffusely tender to palpation Extremities: [...] without focal consolidation, no pneumothorax - respiratory quality control assessor protocol, BPH, IS CARD: #T2MI #possible CAD [...] CBC Endo Glycemic (more content not included)...[facility] [id number] Note POST-PROCEDURE NOTE Procedure: US guided percutaneous cholecystotomy tube Pre-operative Diagnosis: Acute cholecystitis Post-operative Diagnosis: Same Attending: Kim Fernando MD Box Bender: Bunny Wolf TIME OUT was performed prior to the [...] portion of the procedure. El Hollis [facility] NotePre-Procedure Note HISTORY: Procedure: [...] mg Oral Daily 40 mg at 05/17/22 09 esomeprazole (NEXIUM) capsule 40 mg Oral Daily 30 min before breakfast 40 mg at 05/17/22 0947 trimethobenzamide (TIGAN) 100 MG/ML injection 200 mg Intramuscular Q6H PRN 200 mg at 05/16/22 183 oxyCODONE immediate release tablet 5 mg Oral Q4H PRN 5 mg at 05/17/22 06 HYDROmorphone (DILAUDID) 1 mg/mL injection 0.5 mg [...] Directives (Living will, health care power of wire winding machine tender): yes, Patient Recent Code Status: Full Code Code Status For This Procedure: Full Code El Hollis MD [facility]iologyThe [facility] [id number] NotePHYSICAL THERAPY CHART REVIEW Referral received, chart reviewed. RN request to hold therapy this date. Pt with 01/03 pain, just returned from [place] with team deciding on emergent operation vs IR cholecystostomy tube placement. Evaluation to follow as appropriate Admit date/time: 05/16/2022 2:08 AM Reason for Admit: epigastric pain with nausea and vomiting Diagnosis: Cholecystitis Precautions: Full Code Oark Past Medical and Surgical History: PMH: Past Medical History: Diagnosis Date Restless leg PSH: Past Surgical History: Procedure Laterality Date TOTAL ABDOMINAL HYSTERECTOMY W/WO REMOVAL TUBE(S)/OVARY(S) Chu Warren, [facility] [id number] NoteSICU Progress Note Gerry Victoria [id number] POD#: 0 LOS: 1 day : Interval History/Events: Background: Gerry Victoria is a 66 year old female with PMH of hypertension, RLS, GERD who presented to [facility] with progressive worsening epigastric pain with nausea and vomiting for the past day. Denies fevers, CP, dyspnea. Found to have elevated T waves and uptrending tropopnins. CT ab with acute inflammation of the gallbladder with a stone at the neck and transferred to [facility]. RUQ US with impacted gallstone at [...] without focal consolidation, no pneumothorax - respiratory quality control assessor protocol, BPH, IS CARD: #T2MI #possible CAD [...] Flor Chew MD Preliminary IM/Anesthesiology PGY-1 Pager: [phone] Teaching Physician Note: I saw and evaluated the patient. I personally obtained the bhandari and (more content not included)...[facility] [id number] [facility] DIVISION OF ACUTE CARE SURGERY SURGICAL CRITICAL CARE HISTORY AND PHYSICAL Reason for consultation: acute cholecystitis, elevated troponins Referring physician: Connie Cote HPI: Gerry Victoria is a 66 year old female with PMH of hypertension, RLS, GERD who presented to [facility] with progressive worsening epigastric pain with nausea and vomiting for the past day. Denies fevers, CP, dyspnea. Found to have elevated T waves and uptrending tropopnins. CT ab with acute inflammation of the gallbladder with a stone at the neck and transferred to [facility]. RUQ US with impacted gallstone at gallbladder neck. Cards consulted, admitted to [facility]. PMH: No past medical history on [...] CLINICAL HISTORY: cholecystitis ASSOCIATED DIAGNOSIS: ORDERING PROVIDER: [employer] NOTE: Very limited exam due to pt body habitu (more content not included)...[facility] [id number] Evaluation note* Encounter Date Diagnosis Assessment Notes Treatment Notes Treatment Clinical Notes Nov, Irritable bowel syndrome with constipation (ICD-10 - K58.1) Nov, Dysphagia (ICD-10 - R13.10) Continue Omeprazole [facility] [employer] Other 09-06-2022 Hospital Discharge instructions Patient Education [...] fried and sweet foods. General instructions Take wkbn-ohh-bduwtib and prescription medicines only as told by [...] 01/07/2010 Document Revised: 07/04/2019 Document Reviewed: 03/29/2018 [employer] Patient Education 2020 [employer]. Follow Up Care 11/12/2021 11:10:16 With:MARYCARMEN NAVA PA-C, URL Address: When:1 year [facility] 05-05-2022 Hospital Discharge instructions Patient Education 07/29/2021 [...] nerve stimulation). For women, using a medical services coordinator to prevent urine leaks. This is a [...] right after experiencing incontinence. General instructions Take aenp-rvn-kdkvvro and prescription medicines only as told by [...] 04/20/2005 Document Revised: 03/23/2018 Document Reviewed: 06/22/2017 [employer] Patient Education 2020 [employer]. 07/29/2021 08:21:46 Overactive Bladder, Adult Overactive Bladder, [...] fried and sweet foods. General instructions Take izyt-rqz-auozomx and prescription medicines only as told by [...] 01/07/2010 Document Revised: 07/04/2019 Document Reviewed: 03/29/2018 [employer] Patient Education 2020 [employer] Follow Up Care 07/08/2021 10:23:59 With:MARYCARMEN NAVA PA-C, URL Address: [address] [place] [address] When: Unknown [facility] [place] 04-07-2022 Evaluation note* Encounter Date Diagnosis Assessment Notes Treatment Notes Treatment Clinical Notes Jun, Dyspepsia (ICD-10 - K30) Jun, GERD (gastroesophageal reflux disease) (ICD-10 - K21.9) Continue Omeprazole 40mg bid without change. Follow up in 1 year Nov, Irritable bowel syndrome (ICD-10 - K58.9) ([facility]) Increase Metamucil to 2 scoops daily. Encouraged pt to increase daily fiber intake. [employer] Other 11-30-2021 Evaluation note* Encounter Date Diagnosis [...] see her back on an as-needed basis. [employer] Other 10-05-2021 Evaluation note* Encounter Date Diagnosis [...] that. I am sending her to the [facility] for treatment at her request. Dec, Spondylolisthesis, lumbar region (ICD-10 - M43.16) This patient has a definite spondylolisthesis and probably stenosis. But really does not truly have neurogenic claudication; it is not bilateral and appears to be more sacroiliac. She will try pain management first. [employer] Other chief complaint Narrative - ReportedGERRY VICTORIA is being seen for a consultation for atrial flutter and palpitations. F/u heart cath done in [facility] [address] DO Work Phone: Evaluation + Plan note Future Appointments Appointment Date:10/05/2021 11:00:00 AM Scheduled Provider:MARYCARMEN NAVA PA-C Location:[facility] Appointment Type:URO Office Visit [facility] Evaluation + Plan note Future Appointments Appointment Date:12/01/2022 01:00:00 PM Scheduled Provider:MARYCARMEN NAVA PA-C Location:[facility] Appointment Type:URO Office Visit [facility] Evaluation + Plan note Future Appointments Appointment Date:07/26/2022 08:00:00 AM Scheduled Provider: [facility] Appointment Type:Surgery FT Appointment Date:12/01/2022 01:00:00 PM Scheduled Provider:MARYCARMEN NAVA PA-C Location:[facility] Future Appointments Appointment Date:03/14/2024 01:00:00 PM Scheduled Provider:MARYCARMEN NAVA PA-C Location:[facility] Appointment Type:URO Office Visit [facility] Evaluation noteNo Assessments Information Available [facility] assessment information available [facility] noteNo InformationNort Whotever Other evaluation note* Diagnosis Acute cholecystitis- Primary Body mass index (BMI) 31.0-31.9, adult documented in [facility] Diagnosis Acute cholecystitis- Primary documented in [...] Varicose veins of both lower extremities chronic [facility] Work Phone: Evaluation note* Diagnosis Onset Date Resolution Status Pain in wound acute Edema chronic Inflammation chronic Leg ulcer, left chronic Obesity chronic Uses roller walker chronic Varicose veins of both lower extremities chronic Pain in wound acute Edema chronic Inflammation chronic Leg ulcer, left chronic Obesity chronic Uses roller walker chronic Varicose veins of both lower extremities chronic Candidiasis resolved [facility] Work Phone: Hisgmgd general Narrative - Reported* Type Description Date [...] RIGHT LEG 10/16/2020 Hospitalization History see above [employer] Other Hisuqlr general Narrative - Reported* Type Description Date [...] Left leg 01/14 Hospitalization History see above [employer] Other History of Present illness Narrative* Patient is here for cardiovascular evaluation following recent hospitalization for what appeared thang acute cholecystitis. Records were retrieved and reviewed. Patient presented to [facility] with symptoms of abdominal pain and was diagnosed with what appeared to be gallbladder disease and peritonitis.She was transferred to [facility] where she underwent work-up. 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 She reported [...] advised the patient she can use some znxo-tlh-bvlvoie Claritin to address her what appeared thang drug induced allergic reaction [facility] [address] DO Work Phone: Hospital course Narrative No data available for this section [facility] Hospital Discharge instructions* Attachments The following attachments cannot be sent through Care Everywhere. * Percutaneous Transhepatic Cholangiogram Discharge Instructions (Serbian) [facility] Dis[facility] instructions No data available for this section [facility] Additional Instructions Follow-up with your primary care doctor Return to ED if develop worsening symptoms or [facility] Work Phone: Progress note No data available for this section [facility] Advance Directives No Advanced Directives Records [...] polyps Chief Complaint Screening Chief Complaint rt 4th hammertoe s Chief Complaint rt 4th hammertoe s preop Chief Complaint rt 4th 5th hammertoe s preop i83.893 Chief Complaint rt 4th 5th stacy redman preop i83.893 I83.812 Chief Complaint Dysphagia Chief [...] RADIOLOGY PROCEDURE SERVICE Nikita Hein MD [address] [facility] [id number] [place] [address] Referral ID Status Reason Start Date Expiration Date V isits Requested Visits Authorized [id number] Authorized 06/15/2022 06/15/2023 1 1 Reason Evaluate and Tr eat Diagnosis 1 Spondylolisthesis, l umbar region (M43.16) Referral Organization [facility] Referring Provider First Name Michael Referring Provider Last Name Keanu Referring Provider Specialty Neurologica l Surgery Referred Organization [facility] Referred Provider LauriejesseCrow Referred Address [address] [place], [place],[address] Referred Provider Specialty Pain Medicin e Referral Priority Routine General Notes [facility] 02:41:55 PM >[facility] 03:12:19 PM >Waiting for office notes [...] section and content) DATE CREATED AUTHOR 07/07/2021 [facility] dical Specialist DATE CREATED AUTHOR AUTHOR'S ORGANIZ ATION 07/02/2022 [employer] DATE CREATED AUTHOR AUTHOR'S ORGANIZ ATION 09/14/2022 [facility] DATE CREATED AUTHOR AUTHOR'S ORGANIZ ATION 10/07/2022 [facility] DATE CREATED AUTHOR AUTHOR'S ORGANIZ ATION 03/04/2023 [facility] DATE CREATED AUTHOR AUTHOR'S ORGANIZ ATION 03/17/2023 [facility] DATE CREATED AUTHOR AUTHOR'S ORGANIZ ATION 04/20/2023 [facility] DATE CREATED AUTHOR AUTHOR'S ORGANIZ ATION 04/24/2023 [facility] dical Specialists EPIC REASON FOR VISIT (unrecogniz ed section and content) Reason Onset Date Comments Advice/health education 05/27/2022 Specialty Diagnoses / Procedures Referred By Contac t Referred To Contact Radiology Diagnoses Acute cholecystitis Procedures XA CHOLANGIOGRAM EXISTING ACCESS (RHETT) XA INTERVENTIONAL RADIOLOGY VASCULAR BODY PROCEDURES XA INTERVENTIONAL RADIOLOGY PROCEDURE SERVICE Nikita Hein MD [address] [place] [address] [facility] [address] [place] [address] Referral ID Status Reason Start Date Expiration Date Visits Re quested Visits Authorized [id number] Closed 06/15/2022 06/15/2023 1 1 Reason Onset [...] BE BASED ON THE PRIMARY CLINICAL RECORDS. [facility] [employer] [facility]. provides no warranty or guarantee of the accuracy or completeness of information in this document.
== END 2023-04-24 13:57 | disposition home or self-care (01) ==
LOC: VC 13:56
PROVIDERS: PCP Radiology Diagnostic Radiology; Visit Provider Radiology Diagnostic Radiology
DX: I83.813 Varicose veins of bilateral lower extremities with pain (principal)
CPT/HCPCS: 36478

== ENCOUNTER 2023-05-01 10:48 | Outpatient (OUT) | payer MEDICARE, SELFPAY ==
--- NOTE | 2023-05-01 10:49 | VEIN_ITS ---
Patient Name: GERRY YOUNGBLOOD MR#: [id number] : 1955 Exam Date: 05/01/2023 Ordering Doctor: DR SOLOMON JACKSON M.D. RADIOLOGY REPORT PROCEDURE: VC EXT VENOUS LT LIMITED COMPARISON: VC EXT VENOUS LT LIMITED, 03/28/2023. INDICATIONS: Phlebitis of superficial veins of left lower extremity I80.02 TECHNIQUE: Lower extremity amy scale and Duplex Doppler evaluation of the deep venous system from the inguinal ligament through the calf veins. FINDINGS: REGION: Left lower extremity. THROMBI: Negative for DVT. Heat induced thrombus in left SSV proximal to distal lower leg and thigh extension. COMPRESSIBILITY: Non-compressible segments corresponding to thrombus FLOW: Areas of no flow corresponding to thrombus OTHER: Multiple lymph nodes visualized in left groin. Largest measures 3.1 x 1.9 x 1.5 cm. CONCLUSION: 1. Post ablation occlusion of the left small saphenous vein which was a thigh extension 2. Left inguinal lymphadenopathy, nonspecific Dictated by: Solomon Jackson MD on 05/01/2023 at 11:18 Approved by: Solomon Jackson MD on 05/01/2023 at 11:19
--- NOTE | 2023-05-01 10:49 | VEIN_ITS ---
Patient Name: GERRY YOUNGBLOOD MR#: [id number] : 1955 Exam Date: 05/01/2023 Ordering Doctor: DR SOLOMON JACKSON M.D. RADIOLOGY REPORT PROCEDURE: [facility] - OFFICE VISIT FOLLOW UP COMPARISON: [facility], 04/17/2023. [facility], 03/28/2023. PROGRESS NOTES: The patient reports continued swelling of the left leg with some mild pain related to intravenous laser ablation of the left small saphenous vein. The patient has worn her knee high compression stockings the. The patient has exercise some. Physical exam demonstrates moderate left leg swelling below the knee not extending into the ankle or foot. Some erythema is identified. This area is not interactive media specialist this appears relatively stable from her previous exams. No active ulceration. No bruising. The left small saphenous vein cannot be definitively palpated Review of the ultrasound performed the same day demonstrates occlusive thrombus extending throughout the treated left great saphenous vein which was a thigh extension period no deep vein thrombus. The patient expressed a desire to proceed with treatment of left leg incompetent varicose veins with micro foam chemical ablation. VEIN/[facility] EST LMTD IMPRESSION: 1. Successful ablation of the left small saphenous vein 2. Persistent bilateral incompetent varicose veins. PLAN: Micro foam chemical ablation left leg incompetent varicose veins Nurse notes, history and physical were reviewed and confirmed, see attached forms. The nurse was present throughout the physical exam and consultation Dictated by: Solomon Jackson MD on 05/01/2023 at 11:25 Approved by: Solomon Jackson MD on 05/01/2023 at 11:27
--- OUTSIDE RECORDS SUMMARY | 2023-05-01 10:56 | XMS_ITS | CCD ---
Author Name Unknown Address [address] [facility] [address] [place] [address] Organization [facility] Care Team Providers Care Group Home Counselor Name Role Phone Ward Zuniga Primary Care Provider [phone] Pardeep Barroso Attending Provider [phone] Jai Tomas Attending Provider [phone] Ward Zuniga Primary Care Provider Jai Tomas Attending Provider [phone] Ward Mtz Attending Provider [phone] Ward Zuniga Primary Care Provider [phone] Jai Tomas Attending Provider [phone] Ward Mtz Attending Provider [phone] WARD ZUNIGA Primary Care Physician Unavail able Latonya Frost Unavailable Unavailable Michael Colunga Unavailable Ward Mtz Unavailable Balwinder Parker Unavailable DO Ward Zuniga Primary Care Provider MD Molina Villanueva Attending Provider DO Ward Zuniga Attending Provider DO Ward Zuniga Primary Care Provider [phone] CUBA Casanova Attending Provider ISI Griffith Emergency Provider Unavailable Primary Care Provider Unavailabl e DO Ward Zuniga Primary Care Provider [phone] CUBA Casanova Attending Provider ISI Griffith Emergency [...] Attending Unavaila Dr. Ward Robin Primary Care [facility] DO Ward Samuel Primary Care Provider [phone] DO Ward Zuniga Attending Provider [phone] CUBA Saldana Attending Provider DO Maico Perla Emergency Provider [phone] MD Ward Mtz Attending Provider DO Ward Zuniga Primary Care Provider MD Ward Mtz Attending Provider [phone] CUBA Saldana Attending Provider MD Pravin Granado Emergency Provider MARYCARMEN NAVA Attending Unavailable Ketty Alicia Attending Unavailable Talon Mcbride Referring Unavailabl e Zulay Junior Attending Unavailab le Talon Mcbride Admitting Unavailabl e Talon Mcbride Attending Unavailabl e Talon Mcbride Referring Unavailabl e Jonel PADILLAr R Admitting Unavailable Jonel PADILLAr R Attending Unavailable Talon Mcbride Admitting Unavailabl e Talon Mcbride Attending Unavailabl e Talon Mcbride Referring Unavailabl e DO Efrain Ward Primary Care Provider MD Pravin Granado Emergency Provider [phone] CUBA Saldana Attending Provider [phone] Ward Zuniga Primary Care Unavailable Maico Perla Admitting Unavailable Maico Perla Attending Unavailable Keith Griffith Admitting Unavailable Keith Griffith Attending Unavailable Ward Zuniga Primary Care Unavailable Pravin Granado Admitting Unavailable Pravin Granado Attending Unavailable Efrain Ward Primary Care Unavailable Ward Zuniga Admitting Unavailable Efrain Ward Primary Care Unavailable Ward Zuniga Attending Unavailable [facility] Unavailable Adelia Saldana Admitting Unavailable Adelia Sladana Attending Unavailable [facility] Primary Care Unavailable Ward Mtz Admitting Unavailable Ward Mtz Attending Unavailable Adelia Saldana Admitting Unavailable Adelia Saldana Attending Unavailable [facility] Un[facility] Unavailable Ephraim Casanova Admitting Unavailable [...] metal agent] Propensity to adverse reactions 9 [facility] (8 sources) Adhesive bandage; Translations: [Adhesive Bandage] Drug allergy rash [facility] (20 sources) DULoxetine; Translations: [duloxetine] Drug Allergy unable to function properly d/t drowsiness, swollen feet, Unknown [employer] Other (13 sources) meloxicam; Translations: [meloxicam] Drug Allergy ., Unknown [place] [employer] Other (20 sources) pregabalin; Translations: [pregabalin] Drug Allergy 3 Swelling [facility] [employer] Other (19 sources) Adhesive agent; Translations: [adhesive] Propensity to adverse reactions 2 [facility] (10 sources) oxaprozin; Translations: [oxaprozin] Drug Allergy Unknown [facility]ository (10 sources) rOPINIRole; Translations: [Requip] Drug Allergy dizziness [facility] (10 sources) tiZANidine; Translations: [tiZANidine] Drug Allergy Unknown [facility] (20 sources) DULoxetine; Translations: [DULOXETINE HCL] Drug Allergy 3 Agitation [facility] (20 sources) Pregabalin Propensity to adverse reactions to drug 3 Swelling [facility] (20 sources) Bandage Tape; Translations: [BANDAGE TAPE] Propensity to adverse reactions 3 Itching, Redness [facility] (1 source) Adhesive Bandages; Translations: [Adhesive Bandages] Allergy to drug (finding) [facility] 600 DO Work Phone: (1 source) Adhesive Paper TAPE; Translations: [Adhesive Paper TAPE] Allergy to drug (finding) [facility] 600 DO Work Phone: (1 source) meloxicam; Translations: [Mobic] Drug Allergy [facility]ository (1 source) oxaprozin; Translations: [Daypro] Drug Allergy [facility] (1 source) tiZANidine; Translations: [Zanaflex] Drug Allergy [facility] (1 source) pregabalin Drug Allergy [facility] Repository Medications Current Medications Medication Drug [...] day(s), # 28 cap(s), Refills(s) 0, Pharmacy: [facility] [id number], 154, cm, 09/26/22 23:21:00 EDT, Height/Length Dosing, [...] day(s), # 14 tab(s), Refills(s) 0, Pharmacy: [facility] [id number], 154, cm, 09/26/22 23:21:00 EDT, Height/Length Dosing, [...] urethra., # 42.5 gm, Refills(s) 5, Pharmacy: [facility] [id number], 154, cm, 07/29/21 11:09:00 EDT, Height/Length Dos... [...] 11:00pm Start: 10-05-2022 [facility] Multivitamin Active 1 TAB [...] Start: 11-29-2012 take 1 capsule by mo [facility] once daily omeprazole 20 mg Cap-DR [...] Daily, # 90 tab(s), Refills(s) 3, Pharmacy: [facility] [id number], 154, cm, 09/26/22 23:21:00 EDT, Height/Length Dosing, [...] day(s), # 30 tab(s), Refills(s) 1, Pharmacy: [facility] [id number], 154, cm, 07/29/21 11:09:00 EDT, Height/Length Dosing, 88, kg, 07/29/21 11:09:00 EDT, Weight Dosing Start Date: 07/29/21 Stop Date: 09/27/21 Status: Ordered Start: 07-29-2021 End: 08-28-2021 take 1 tablet by mouth once daily oxybutynin 5 mg ER Tab 5 mg = 1 tab(s), Oral, Daily, X 30 day(s), # 30 tab(s), Refills(s) 0, Pharmacy: [facility] [id number], 154, cm, 07/29/21 11:09:00 EDT, Height/Length Dosing, 88, kg, 07/29/21 11:09:00 EDT, Weight Dosing Start Date: 07/29/21 Stop Date: 08/28/21 Status: Ordered oxyCODONE hydrochloride 5 mg oral tablet (1 source) Opioid Agonist Start: 07-26-2022 End: 07-29-2022 oxyCODONE 5 mg Tab 5 mg = 1 tab(s), Oral, q6hr, PRN Pain 8-10, X 3 day(s), # 12 tab(s), Refills(s) 0, Pharmacy: [facility] [id number], 154, cm, 07/18/22 14:13:00 EDT, Height/Length Dosing, [...] Ordered Start: 01-13-2021 [facility] Vitamin D3 2000 intl units oral Tab 50 mcg, Oral, Daily, tab(s), Refills(s) 0 Start Date: 01/13/21 Status: Ordered Vitamin D3 2000 UNIT (9 sources) take 1 capsule by mo [facility] once daily Vitamin D3 2000 UNIT [...] Coronary atherosclerosis; Translations: [Atherosclerotic heart disease of [place] coronary artery without angina pectoris] Onset: 3 [...] current use of drug therapy; Translations: [Other custodial (current) drug therapy] Onset: 3 Episodic Other [...] Test Name Value Interpretation Reference Range Facility [facility] 04-19-2023 CNOV Office Visit (GASTNO ) -- GERRY VICTORIA ([id number]) 1955 F Date Time Provider Department 04/19/23 3:00 PM JAJA REDDY During your visit today, we recorded the following information about you: Pulse Blood pressure Weight Height 68/minute 131/87 79.4 kg 1.549 m Jaja Reddy MD 04/19/2023 2:56 PM Addendum Endoscopy at [facility] 05/08/23 arrive at 11:45am Jaja Reddy [...] No history of dysuria, frequency or incontinence 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 Normal [facility] HISTORY PHYSICALon HISTORY PHYSICAL HNO ID: [id number] Author: JAJA REDDY MD Service: ? 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 Normal [facility] MR SHOULDER LEFT WO IV CONTR Demetrius [...] Urnls Dip Stick Auto w/o Microscopy POC [id number] Your Care Team Attending Physician - Ravin [...] MARYCARMEN NAVA PA-C Where: [facility] Patient Educationon 03-02-20 23 Patient Education Obstetrics [...] provider. Document Revised: 07/22/2021 Document Reviewed: 07/22/2021 [employer] Patient Education ? 2022 [employer] Tara [facility] Urology Office/Clinic Noteon 03-02-2023 Urology Office/Clinic [...] Alcohol - (more content not included)... Normal [facility] Comment on above: Result Comment: Elec tronically Signed By: DARRYN Alicia APRN, [place] X\.br\Date and Time Signed: 03/02/23 13:39 EST\.br\Electronically Co-Signed By: Gema Erickson\.br\Date and Time Co-Signed: 03/02/23 13:37 EST Alanine aminotransferase [En zymatic activity/volume] in Serum or PlasmaOrdered By: Pravin Granado on 12-17-2022 ALT [Catalytic activity/Vol] 11 U/L 7-52 [facility] Albumin [Mass/volume] in Ser um or Plasma by Bromocresol green (BCG) dye binding methoOrdered By: Pravin Granado on 12-17-2022 Albumin BCG dye [Mass/Vol] 4.4 g/dL 3.5-5.7 [facility] Alkaline phosphatase [Enzyma tic activity/volume] in Serum or PlasmaOrdered By: Pravin Granado on 09-23-2023 ALP [Catalytic activity/Vol] 79 U/L 34-104 [facility] Amylaseon 12-17-2022 Amylase [Catalytic activity/Vol] 22 U/L Low 29-103 [facility] Comment on above: Performed By: #### L IPASE, CMP, UMU #### [facility] [address] [id number] [facility] Amylase [Enzymatic activity/ volume] in Serum or PlasmaOrdered By: Pravin Granado on 12-17-2022 Amylase [Catalytic activity/Vol] 22 U/L 29103 [facility] Aspartate aminotransferase [ Enzymatic activity/volume] in Serum or PlasmaOrdered By: Pravin Granado on 12-17-2022 AST [Catalytic activity/Vol] 22 U/L 13-39 [facility] Basophils Auto (Bld) [#/Vol] Ordered By: Pravin Granado on 12-17-2022 Basophils (Bld) [#/Vol] 0.0 10*3/uL 0.0-0.2 [facility] Basophils/100 WBC Auto (Bld) Ordered By: Pravin Granado on 12-17-2022 Basophils/100 WBC (Bld) 0.9 % . [facility] Bilirubin.total [Mass/volume ] in Serum or PlasmaOrdered By: Pravin Granado on 12-17-2022 Bilirubin [Mass/Vol] 0.7 mg/dL 0.3-1.0 [facility] Calcium [Mass/volume] in Ser um or PlasmaOrdered By: Pravin Granado on 12-17-2022 Calcium [Mass/Vol] 9.4 mg/dL 8.6-10.[address] [facility] Carbon dioxide, total [Moles /volume] in Serum or PlasmaOrdered By: Pravin Granado on 12-17-2022 CO2 [Moles/Vol] 29.9 mmol/L 21.0-31.0 [facility] Chloride [Moles/volume] in S nia or PlasmaOrdered By: Pravin Granado on 12-17-2022 Chloride [Moles/Vol] 101 mmol/L 98-107 [facility] Complete Blood Count Auto Di ffon 12-17-2022 Basophils (Bld) [#/Vol] 0.0 10*3/uL Normal 0.0-0.2 [facility] Comment on above: Result Comment: PERF ORMED BY: [place] [address] PATHOLOGIST SKIRT TRIMMER WILDER BOTELLO M.D. Performed By: #### C BC #### [address] Basophils/100 WBC (Bld) 0.9 % Normal . [facility] Comment on above: Performed By: #### C BC #### [address] Eosinophils (Bld) [#/Vol] 0.1 10*3/uL Normal 0.0-0.45 [facility] Comment on above: Performed By: #### C BC #### [address] Eosinophils/100 WBC (Bld) 2.9 % Normal . [facility] Comment on above: Performed By: #### C BC #### [address] Erythrocyte distribution width (RBC) [Ratio] 17.1 % High 11.9-15.3 [facility] Comment on above: Performed By: #### C BC #### [address] Hematocrit (Bld) [Volume fraction] 33.5 % Low 34.0-46.4 [facility] Comment on above: Performed By: #### C BC #### [address] Hemoglobin (Bld) [Mass/Vol] 11.0 g/dL Low 11.8-15.4 [facility] Comment on above: Performed By: #### C BC #### [address] Lymphocytes (Bld) [#/Vol] 1.2 10*3/uL Normal 1.00-4.8 [facility] Comment on above: Performed By: #### C BC #### [address] Lymphocytes/100 WBC (Bld) 24.6 % Normal . [facility] Comment on above: Performed By: #### C BC #### [facility] [address] MCH (RBC) [Entitic mass] 27.0 pg Normal 24.7-34.3 [facility] Comment on above: Performed By: #### C BC #### [facility] [address] MCV (RBC) [Entitic vol] 82.6 fL Normal 80-100 [facility] Comment on above: Performed By: #### C BC #### [address] Mean Corpuscular HGB Conc 32.7 g/dL Normal 32.0-35.0 [facility] Comment on above: Performed By: #### C BC #### [address] Monocytes (Bld) [#/Vol] 0.3 10*3/uL Normal 0.0-0.8 [facility] Comment on above: Performed By: #### C BC #### [address] Monocytes/100 WBC (Bld) 19.78 % Normal 0.00-20.00 [facility] Comment on above: Performed By: #### C BC #### [address] Monocytes/100 WBC (Bld) 6.1 % Normal . [facility] Comment on above: Performed By: #### C BC #### [place] [address] [place] Neutrophils (Bld) [#/Vol] 3.1 10*3/uL Normal 1.8-7.7 [facility] Comment on above: Performed By: #### C BC #### [address] Neutrophils/100 WBC (Bld) 65.5 % Normal . [facility] Comment on above: Performed By: #### C BC #### [facility] [address] NRBC% 0.3 /100{WBC} Normal 0-0.5 [facility] Comment on above: Performed By: #### C BC #### [facility] [address] Platelet mean volume (Bld) [Entitic vol] 8.1 fL Normal 6.3-10.7 [facility] Comment on above: Performed By: #### C BC #### [address] Platelets (Bld) [#/Vol] 236 10*3/uL Normal 150-450 [facility] Comment on above: Performed By: #### C BC #### [address] RBC (Bld) [#/Vol] 4.05 10*6/uL Normal 3.60-5.00 [facility] Comment on above: Performed By: #### C BC #### [address] WBC (Bld) [#/Vol] 4.8 10*3/uL Normal 3.8-11.[address] [facility] Comment on above: Performed By: #### C BC #### [address] Comprehensive Metabolic Pane lit 12-17-2022 Albumin [Mass/Vol] 4.4 g/dL Normal 3.5-5.[address] [facility] Comment on above: Performed By: #### L IPASE, CMP, UMU #### [address] Albumin/Globulin [Mass ratio] 1.4 {ratio} Normal [facility] Comment on above: Performed By: #### L IPASE, CMP, UMU #### [address] ALP [Catalytic activity/Vol] 79 U/L Normal 34-104 [facility] Comment on above: Performed By: #### L IPASE, CMP, UMU #### [facility] [address] [place] [address] [place] ALT [Catalytic activity/Vol] 11 U/L Normal 7-52 [facility] Comment on above: Performed By: #### L IPASE, CMP, UMU #### [facility] [address] [place] [address] [place] Anion gap [Moles/Vol] 9.4 mmol/L Normal 6.0-15.0 [facility] Comment on above: Performed By: #### L IPASE, CMP, UMU #### [facility] [address] [id number] [place] AST [Catalytic activity/Vol] 22 U/L Normal 13-39 [facility] Comment on above: Performed By: #### L IPASE, CMP, UMU #### [facility] [address] [id number] [facility] Bilirubin [Mass/Vol] 0.7 mg/dL Normal 0.3-1.0 [facility] Comment on above: Performed By: #### L IPASE, CMP, UMU #### [facility] [address] [id number] [place] Calcium [Mass/Vol] 9.4 mg/dL Normal 8.6-10.[address] [facility] Comment on above: Performed By: #### L IPASE, CMP, UMU #### [facility] [address] [id number] [place] Chloride [Moles/Vol] 101 mmol/L Normal 98-107 [facility] Comment on above: Performed By: #### L IPASE, CMP, UMU #### [facility] [address] [place] [address] [place] CO2 [Moles/Vol] 29.9 mmol/L Normal 21.0-31.0 [facility] Comment on above: Performed By: #### L IPASE, CMP, UMU #### [facility] [address] [id number] [place] Creatinine [Mass/Vol] 0.90 mg/dL Normal 0.60-1.20 [facility] Comment on above: Performed By: #### L IPAMONICA FERNANDEZ, UMU #### [facility] [address] [place] [address] [place] GFR/1.73 sq M.predicted MDRD (S/P/Bld) [Vol rate/Area] mL/min/{1.73_m2} [facility] Comment on above: Performed By: #### L IPASE CMP, UMU #### [facility] [address] Globulin (S) [Mass/Vol] 3.1 g/dL [facility] Comment on above: Performed By: #### L IPASEMONICA, UMU #### [facility] [address] Glucose [Mass/Vol] 119 mg/dL High 70-[address] [facility] Comment on above: Result Comment: [place] Glucose Reference Range is dependent on time and content of last meal. Glucose of more than 200 mg/dL in a nonstressed, ambulatory subject supports the diagnosis of Diabetes Mellitus. ADA recommended reference range Performed By: #### L IPAMONICA FERNANDEZ, UMU #### [facility] [address] Potassium [Moles/Vol] 3.3 mmol/L Low 3.5-5.1 [facility] Comment on above: Performed By: #### L IPAMONICA FERNANDEZ, UMU #### [facility] [address] [place] [address] [place] Protein [Mass/Vol] 7.5 g/dL Normal 6.4-8.[address] [facility] Comment on above: Performed By: #### L IPASE CMP, UMU #### [facility] [address] [place] [address] [place] Sodium [Moles/Vol] 137 mmol/L Normal 136-[address] [facility] Comment on above: Performed By: #### L IPASE CMP, UMU #### [facility] [address] Urea nitrogen [Mass/Vol] 14 mg/dL Normal 7-25 [facility] Comment on above: Performed By: #### L IPASE, MONICA, UMU #### [facility] [address] [id number] [facility] Creatinine [Mass/volume] in Serum or PlasmaOrdered By: Pravin Granado on 12-17-2022 Creatinine [Mass/Vol] 0.90 mg/dL 0.60-1.20 [facility] ECG 12 lead ECGon 12-17-2022 ECG 12 lead ECG [facility] [address] [place] [address] [place] [address] Electrocardiograph Report Signed Patient: Gerry Victoria MR#: [id number] 10 : 1955 Acct:[id number] Age/Sex: 67 / F ADM Date: 12/17/22 Loc: ER Room: Type: [facility] ER Attending Dr: Ordering Provider: Pravin [...] When compared with ECG of 15-MAY-2022 20:35, VT interval has increased T wave amplitude has decreased in Inferior leads T wave amplitude has decreased in Anterior leads Confirmed by PRAVIN GRANADO MD ([id number]) on 12/17/2022 3:34:33 PM Referred By: Electronically Signed By:PRAVIN GRANADO MD Transcribed By: MUS Signed By Pravin Granado MD 12/17/22 1534 Normal [facility] Eosinophils Auto (Bld) [#/Vo l]Ordered By: Pravin Granado on 12-17-2022 Eosinophils (Bld) [#/Vol] 0.1 10*3/uL 0.0-0.45 [facility] Eosinophils/100 WBC Auto (Bl d)Ordered By: Pravin Granado on 12-17-2022 Eosinophils/100 WBC (Bld) 2.9 % . [facility] Erythrocyte distribution wid th Auto (RBC) [Ratio]Ordered By: Pravin Granado on 12-17-2022 Erythrocyte distribution width (RBC) [Ratio] 17.1 % 11.9-15.3 [facility] Globulin Calc (S) [Mass/Vol] Ordered By: Pravin Granado on 12-17-2022 Globulin (S) [Mass/Vol] 3.1 g/dL [facility] Glucose [Mass/volume] in Ser um or PlasmaOrdered By: Pravin Granado on 12-17-2022 Glucose [Mass/Vol] 119 mg/dL 70-[address] [facility] Comment on above: ADA recommended refe rence rangeRandom Glucose Reference Range is dependent on time and content of last meal. Glucose of more than 200 mg/dL in a nonstressed, ambulatory subject supports the diagnosis of Diabetes Mellitus. Hematocrit Auto (Bld) [Volum e fraction]Ordered By: Pravin Granado on 12-17-2022 Hematocrit (Bld) [Volume fraction] 33.5 % 34.0-46.4 [facility] Hemoglobin [Mass/volume] in BloodOrdered By: Pravin Granado on 12-17-2022 Hemoglobin (Bld) [Mass/Vol] 11.0 g/dL 11.8-15.4 [facility] Leukocytes [#/volume] correc poly for nucleated erythrocytes in Blood by Automated counOrdered By: Pravin Granado on 12-17-2022 WBC corrected for nucl RBC Auto (Bld) [#/Vol] 4.8 10*3/uL 3.8-11.6 [facility] Lipaseon 12-17-2022 Lipase [Catalytic activity/Vol] 8.0 U/L Low 11.0-82.0 [facility] Comment on above: Result Comment: PERF ORMED BY: [place] [address] PATHOLOGIST SKIRT TRIMMER WILDER BOTELLO M.D. Performed By: #### L MONICA MEYERS AMY #### [address] Lipase [Enzymatic activity/v olume] in Serum or PlasmaOrdered By: Pravin Granado on 12-17-2022 Lipase [Catalytic activity/Vol] 8.0 U/L 11.0-82.0 [facility] Lymphocytes Auto (Bld) [#/Vo l]Ordered By: Pravin Granado on 12-17-2022 Lymphocytes (Bld) [#/Vol] 1.2 10*3/uL 1.00-4.8 [facility] Lymphocytes/100 WBC Auto (Bl d)Ordered By: Pravin Granado on 12-17-2022 Lymphocytes/100 WBC (Bld) 24.6 % . [facility] MCH Auto (RBC) [Entitic mass ]Ordered By: Pravin Granado on 12-17-2022 MCH (RBC) [Entitic mass] 27.0 pg 24.7-34.3 [facility] MCHC Auto (RBC) [Mass/Vol]Or dered By: Pravin Granado on 12-17-2022 MCHC (RBC) [Mass/Vol] 32.7 g/dL 32.0-35.0 [facility] MCV Auto (RBC) [Entitic vol] Ordered By: Pravin Granado on 12-17-2022 MCV (RBC) [Entitic vol] 82.6 fL 80-100 [facility] Monocyte distribution width [Entitic volume] in Blood by AutomatedOrdered By: Pravin Granado on 12-17-2022 Monocyte distribution width Auto (Bld) [Entitic vol] 19.78 % 0.00-20.00 [facility] Monocytes Auto (Bld) [#/Vol] Ordered By: Pravin Granado on 12-17-2022 Monocytes (Bld) [#/Vol] 0.3 10*3/uL 0.0-0.8 [facility] Monocytes/100 WBC Auto (Bld) Ordered By: Pravin Granado on 12-17-2022 Monocytes/100 WBC (Bld) 6.1 % . [facility] Neutrophils Auto (Bld) [#/Vo l]Ordered By: Pravin Granado on 12-17-2022 Neutrophils (Bld) [#/Vol] 3.1 10*3/uL 1.8-7.7 [facility] Neutrophils/100 WBC Auto (Bl d)Ordered By: Pravin Granado on 12-17-2022 Neutrophils/100 WBC (Bld) 65.5 % . [facility] No Panel InformationOrdered By: Pravin Granado on 12-17-2022 Estimated GFR (CKD-EPI) > 60.0 mL/Min [facility] [facility] (Chem N/A [facility] Nucleated erythrocytes [Pres ence] in Blood by Automated countOrdered By: Pravin Granado on 12-17-2022 Nucleated RBC Auto Ql (Bld) 0.3 /100{WBC} 0-0.5 [facility] Platelet mean volume Auto (B ld) [Entitic vol]Ordered By: Pravin Granado on 12-17-2022 Platelet mean volume (Bld) [Entitic vol] 8.1 fL 6.3-10.7 [facility] Platelets Auto (Bld) [#/Vol] Ordered By: Pravin Granado on 12-17-2022 Platelets (Bld) [#/Vol] 236 10*3/uL 150-450 [facility] Potassium [Moles/volume] in Serum or PlasmaOrdered By: Pravin Granado on 12-17-2022 Potassium [Moles/Vol] 3.3 mmol/L 3.5-5.1 [facility] Protein [Mass/volume] in Ser um or PlasmaOrdered By: Pravin Granado on 12-17-2022 Protein [Mass/Vol] 7.5 g/dL 6.4-8.[address] [facility] RBC Auto (Bld) [#/Vol]Ordere d By: Pravin Granado on 12-17-2022 RBC (Bld) [#/Vol] 4.05 10*6/uL 3.60-5.00 [facility] Serum or plasma albumin/glob ulin mass ratioOrdered By: Pravin Granado on 12-17-2022 Albumin/Globulin [Mass ratio] 1.4 {ratio} [facility] Serum or plasma anion gap de terminationOrdered By: Pravin Granado on 12-17-2022 Anion gap [Moles/Vol] 9.4 mmol/L 6.0-15.0 [facility] Sodium [Moles/volume] in Ser um or PlasmaOrdered By: Pravin Granado on 12-17-2022 Sodium [Moles/Vol] 137 mmol/L 136-[address] [facility] Urea nitrogen [Mass/volume] in Serum or PlasmaOrdered By: Pravin Granado on 12-17-2022 Urea nitrogen [Mass/Vol] 14 mg/dL 7-25 [facility] WBC Auto (Bld) [#/Vol]Ordere d By: Pravin Granado on 12-17-2022 WBC (Bld) [#/Vol] 4.8 10*3/uL 3.8-11.[address] [facility] US venous duplex LE LTon US venous duplex LE LT [facility] [place] [address] Ultrasound Report Signed Patient: Gerry Victoria MR#: [id number] 10 : 1955 Acct:[id number] Age/Sex: 67 / F ADM Date: 11/04/22 Loc: Room: Type: [facility] Attending Dr: Ward Mzt MD Ordering Provider: Ward Mtz MD Date [...] 7 mm in greatest diameter. Moderately severe deputy sheriff court services incompetence is noted with 3 separate calf [...] is dilated at 7 mm with significant deputy sheriff court services incompetence. Lesser saphenous vein is also incompetent and dilated. Impression dictated by: Ward Mtz M.D.11/07/2022 12:52 PM Dictation Location: [facility] Tech: Ana Crafttamikoflorentino Transcribed By: MANUEL 11/07/22 1252 Dictated By: Ward Mtz MD 11/07/22 1249 Signed By: 11/07/22 1252 Normal [facility] CT cervical spine wo conon 0 11-04-2022 CT cervical spine wo [facility] [place] [address] [place] [address] CT Scan Report Signed Patient: Gerry Victoria MR#: [id number] 10 : 1955 Acct:[id number] Age/Sex: 67 / F ADM Date: 11/04/22 Loc: ER Room: Type: PRE ER Attending Dr: Copies to: Maico Perla DO Ordering Provider: Maico Perla DO Date of Service: 11/04/22 CT/CT head/brain wo con: fall ([id number]) CT/CT cervical spine wo con: fall CLINICAL [...] Elaine Mcadams M.D.11/04/2022 11:30 AM Dictation Location: [place] [address] Transcribed By: [facility] 11/04/22 1130 Dictated By: Elaine Mcadams MD 11/04/22 1123 Signed By: 11/04/22 1130 Normal [facility] XR knee LT 2Von 11-04-2022 XR knee LT 2V [facility] [address] XRay Report Signed Patient: Gerry Victoria MR#: [id number] 10 : 1955 Acct:[id number] Age/Sex: 67 / F ADM Date: 11/04/22 [...] Elaine Mcadams M.D.11/04/2022 11:37 AM Dictation Location: [place] [address] Transcribed By: [facility] 11/04/22 113 Dictated By: Elaine Mcadams MD 11/04/22 1131 Signed By: 11/04/[address] [facility] MRSA Screenon 09-29-2022 MRSA DNA ROXANA+probe Ql (Unsp spec) Microbiology PROCEDURE: MRSA Screen [R1] SOURCE: Nasal BODY SITE: COLLECTED DATE/TIME: 09/27/2022 05:44 EDT RECEIVED DATE/TIME: 09/27/2022 06:10 EDT START DATE/TIME: 09/27/2022 06:10 EDT FREE TEXT SOURCE: Maliha PADILLA DO, DO, Ronobir R FINAL REPORTS Final Report [] Verified Date/Time: 09/29/2022 09:04 EDT MRSA Negative. Performing Locations R1: This test was performed at: [facility], [address] [place] [address], [address] , , Normal [facility] Comment on above: Performed By: #### 1 [id number] #### [facility] [address] [place] [address] Auto Diffon 09-27-2022 Basophils/100 WBC (Bld) 1.0 % Normal 0.0-2.0 [facility] Comment on above: Order Comment: Order Added by Discern Expert. Performed By: #### 2 892883, 30396128, 6219093, 1479869, 3541074, 97790261, 6726000, 9075329 #### [facility] [address] [place] [address] Basophils/Leukocytes Auto (Bld) [Pure # fraction] 0.1 E9/L Normal 0.0-0.2 [facility] Comment on above: Order Comment: Order Added by Discern Expert. Performed By: #### 2 820829, 10838212, 4350425, 4170026, 9581782, 75464766, 4440853, 5626362 #### [facility] [address] [place] [address] Eosinophils/100 WBC (Bld) 8.4 % High 0.0-8.0 [facility] Comment on above: Order Comment: Order Added by Discern Expert. Performed By: #### 2 056676, 88245398, 3376917, 8014414, 0326323, 38392223, 5848268, 2882351 #### [facility] [address] [place] [address] Eosinophils/Leukocytes Auto (Bld) [Pure # fraction] 0.5 E9/L Normal 0.0-0.5 [facility] Comment on above: Order Comment: Order Added by Discern Expert. Performed By: #### 2 010182, 13727112, 7681236, 1437787, 3408986, 45867354, 6796369, 0782251 #### [facility] [address] [place] [address] Lymphocytes/100 WBC (Bld) 18.0 % Normal 14.0-50.0 [facility] Comment on above: Order Comment: Order Added by Discern Expert. Performed By: #### 2 830720, 03013901, 9887539, 7610622, 5709339, 89541638, 5298011, 0757639 #### [facility] [address] [place] [address] Lymphocytes/Leukocytes Auto (Bld) [Pure # fraction] 1.1 E9/L Normal 1.0-4.0 [facility] Comment on above: Order Comment: Order Added by Discern Expert. Performed By: #### 2 006205, 11323949, 9320469, 0593450, 1225202, 32114716, 7360282, 1113226 #### [facility] [address] [place] [address] Monocytes/100 WBC (Bld) 11.2 % Normal 4.0-14.0 [facility] Comment on above: Order Comment: Order Added by Discern Expert. Performed By: #### 2 896988, 69629710, 5813456, 5724790, 8663767, 44516323, 5356520, 9586125 #### [facility] [address] [place] [address] Monocytes/Leukocytes Auto (Bld) [Pure # fraction] 0.7 E9/L Normal 0.2-1.0 [facility] Comment on above: Order Comment: Order Added by Discern Expert. Performed By: #### 2 905528, 63616702, 7246159, 6102611, 5764607, 68653479, 4028852, 0321348 #### [facility] [address] [place] [address] Neutrophils/100 WBC (Bld) 61.4 % Normal 36.0-75.0 [facility] Comment on above: Order Comment: Order Added by Discern Expert. Performed By: #### 2 221134, 53066516, 9252203, 0111897, 0098636, 55623707, 9339446, 0313526 #### [facility] [address] [place] [address] Neutrophils/Leukocytes Auto (Bld) [Pure # fraction] 3.6 E9/L Normal 2.0-7.5 [facility] Comment on above: Order Comment: Order Added by Discern Expert. Performed By: #### 2 114601, 58746110, 2759922, 6273716, 7973560, 41006277, 4356368, 6312213 #### [facility] [address] [place] [address] BMPon 09-27-2022 Creatinine [Mass/Vol] 1.2 mg/dL Normal 0.5-1.3 [facility] Comment on above: Performed By: #### 2 433264, 32355388, 1200206, 7521648, 8923855, 10111879, 3385877, 0666855 #### [facility] [address] [place] [address] Urea nitrogen [Mass/Vol] 17 mg/dL Normal 5-21 [facility] Comment on above: Performed By: #### 2 281953, 90048870, 9408481, 7537509, 3645712, 18201100, 0664141, 6361525 #### [facility] [address] [place] [address] Urea nitrogen/Creatinine [Mass ratio] 14 No Units Normal 10-20 [facility] Comment on above: Performed By: #### 2 857471, 01367220, 9045156, 1034403, 5712843, 92114917, 3595364, 9156544 #### [facility] [address] [place] [address] Anion gap [Moles/Vol] 12 mmol/L Normal 6-16 [facility] Comment on above: Performed By: #### 2 644877, 23204075, 2420234, 0461482, 7136056, 55164086, 9841787, 2394510 #### [facility] [address] [place] [address] Calcium [Mass/Vol] 8.9 mg/dL Normal 8.9-11.1 [facility] Comment on above: Performed By: #### 2 594739, 94972601, 3948267, 1516668, 1780940, 41006574, 5725948, 3573230 #### [facility] [address] [place] [address] Chloride [Moles/Vol] 101 mmol/L Normal 101-111 [facility] Comment on above: Performed By: #### 2 499392, 60154922, 0258310, 9967729, 6901847, 55412084, 6240854, 9513719 #### [facility] [address] [place] [address] CO2 [Moles/Vol] 29 mmol/L Normal 21-31 [facility] Comment on above: Performed By: #### 2 775413, 19482516, 4416845, 4799198, 5731784, 50806488, 4608492, 8326693 #### [facility] [address] [place] [address] Glucose [Mass/Vol] 84 mg/dL Normal 55-199 [facility] Comment on above: Result Comment: If t his glucose result represents a fasting glucose, interpretation should refer to the following reference range: 55-99 mg/dL Performed By: #### 2 401892, 25986707, 0820364, 8441898, 9897696, 83946591, 2127979, 4855337 #### [facility] [address] [place] [address] Potassium [Moles/Vol] 3.6 mmol/L Normal 3.5-5.3 [facility] Comment on above: Performed By: #### 2 440945, 61240363, 3086819, 6689346, 1009687, 01542860, 7606387, 9376755 #### [facility] [address] [place] [address] Sodium [Moles/Vol] 138 mmol/L Normal 135-145 [facility] Comment on above: Performed By: #### 2 069806, 50108918, 0430120, 9179567, 7277680, 40644677, 8601228, 0783919 #### [facility] [address] [place] [address] CBC w/ Auto Diffon 3 Erythrocyte distribution width (RBC) [Ratio] 15.9 % High 10.9-14.2 [facility] Comment on above: Performed By: #### 2 393275, 55329032, 1209728, 1997329, 3116875, 22465280, 2738974, 0900793 #### [facility] [address] [place] [address] Hematocrit (Bld) [Volume fraction] 29.2 % Low 34.0-46.0 [facility] Comment on above: Performed By: #### 2 987859, 31044199, 8313378, 6898239, 9981562, 28305887, 2082320, 1565821 #### [facility] [address] [place] [address] Hemoglobin (Bld) [Mass/Vol] 9.6 g/dL Low 12.0-16.0 [facility] Comment on above: Performed By: #### 2 106225, 35852899, 0058349, 4797877, 9553688, 83013502, 0267245, 5944325 #### [facility] [address] [place] [address] MCH (RBC) [Entitic mass] 26.4 pg Low 27.0-34.0 [facility] Comment on above: Performed By: #### 2 783125, 46033790, 8439452, 9233208, 2320429, 41811046, 5240770, 1037542 #### [facility] [address] [place] [address] MCHC (RBC) [Mass/Vol] 33.0 g/dL Normal 31.4-36.0 [facility] Comment on above: Performed By: #### 2 695144, 94494060, 8992015, 8880076, 3626580, 94439798, 1531733, 6333812 #### [facility] [address] [place] [address] MCV (RBC) [Entitic vol] 79.9 fL Low 80.0-100.0 [facility] Comment on above: Performed By: #### 2 399860, 96244238, 1105311, 6757894, 2184401, 94948317, 0717084, 0966908 #### [facility] [address] [place] [address] Platelet mean volume (Bld) [Entitic vol] 7.9 fL Normal 6.4-10.8 [facility] Comment on above: Performed By: #### 2 323209, 61649147, 2070114, 9822041, 4201287, 62890664, 2054026, 0245788 #### [facility] [address] [place] [address] Platelets (Bld) [#/Vol] 249.0 E9/L Normal 150.0-500. 0 [facility] Comment on above: Performed By: #### 2 877237, 72058179, 6287029, 4624457, 5555609, 26223766, 8706208, 1494675 #### [facility] [address] [place] [address] RBC (Bld) [#/Vol] 3.7 E12/L Low 4.3-5.9 [facility] Comment on above: Performed By: #### 2 119936, 86543273, 7190942, 2750362, 7572789, 39745955, 2307553, 9848055 #### [facility] [address] [place] [address] WBC corrected for nucl RBC Auto (Bld) [#/Vol] 5.9 E9/L Normal 4.0-11.0 [facility] Comment on above: Performed By: #### 2 234623, 14047696, 6898025, 2527774, 4339157, 98522499, 1618365, 1416520 #### [facility] [address] [place] [address] CHEMISTRYOrdered By: SYSTEM SYSTEM on 09-27-2022 Albumin [...] 17 mg/dL Normal 5 - 21 mg/dL [facility] Remisol Urea nitrogen/Creatinine [Mass ratio] 14 mg/mg Normal 10 - 20 [facility] Remisol CRPon 09-27-2022 CRP [Mass/Vol] 7.5 mg/dL High <=1.9 [facility] Comment on above: Performed By: #### 2 962786, 70519515, 8232003, 7424441, 9029832, 54834975, 3117844, 8531163 #### [facility] [address] [place] [address] Consent To Leave AMAon 09-27 Consent To Leave AMA [id number]#[id number]:127 Normal [facility] Consent for Treatmenton Consent for Treatment [id number]:127 Normal [facility] Discharge Instructionson Discharge Instructions [id number]#[id number]:127 Normal [facility] ED Clinical Summaryon 2022 ED Clinical Summary (Inserted Image. Zora ble to display) [address] [address] ED Clinical Summary Person Information Name: GERRY VICTORIA [facility] Age: 67 Years : 1955 Sex: Female Language: Irish PCP: WARD ZUNIGA DO Marital Status: Visit [...] 09/27/2022 11:03:38 09/27/2022 11:03:38 09/27/2022 11:03:38 ADDRESS: [address] [facility] [id number] PHYS DOC NOTES: MEDICAL INFORMATION: Prescriptions Given: New Medications [facility] [id number], [address] [place], [place] [id number], [phone] cephalexin (Keflex 500 mg Cap) 1 Capsules [...] (Celebrate Multivi (more content not included)... Normal [facility] ED Note-Physicianon 09-28-19 ED Note-Physician Basic [...] She states she then went to the [facility] Urgent care clinic and she was [...] entirety with (more content not included)... Normal [facility] Comment on above: Result Comment: Elec [...] these instructions at home: Medicines ? Take wdsn-jxe-uhcvchk and prescription medicines only as told by [...] provider. Document Revised: 12/23/2021 Document Reviewed: 12/23/2021 [employer] Patient Education ? 2022 [employer]. Normal [facility] ED Patient Summaryon 023 ED Patient Summary (Inserted Image. Zora ble to display) [place] [address] Patient Discharge Instructions Person Information Name: GERRY VICTORIA Age: 67 Years Arrival Date: 09/26/2022 22:52:57 Discharge Diagnosis: 1:Cellulitis of leg; 2:CAD (coronary atherosclerotic disease); 3:RLS (restless legs syndrome); 4:Hypothyroid; 5:HLD (hyperlipidemia); 6:Depression; 7:On deep vein thrombosis (DVT) prophylaxis; Left against medical advice Primary Care Physician: WARD ZUNIGA DO Provider Information Primary Provider: Chintan Heller DO [employer] Repairer:None The exam and treatment you received in the Emergency Department were for an urgent problem and are not intended as complete care. It is important that you follow up with a doctor, nurse practitioner, or physician?s compliance assistant for ongoing care. If your symptoms become worse or you do not improve as expected and you are unable to reach your usual health care provider, you should return to the Emergency Department. We are available 24 hours a day. GERRY VICTORIA has been given the following list of patient education materials, prescriptions and follow-up instructions: Follow-up Instructions: With: Address: When: WARD EFRAIN [address] [facility] [address] [place], [place] [id number] In 3 days 09/30/2022 In the event that this physician does not participate in your insurance network, please consult with your insurance company to find a nearby participating provider. Patient Education Materials: Cellulitis, Adult, Dnuf-ax-Jlse A MESSAGE TO ALL PATIENTS REGARDING OPIOIDS PRESCRIPTION OPIOIDS: WHAT YOU NEED TO KNOW Prescription opioids can be used to help relieve tpgjqrcz-gd-kxqmhj pain and are often prescribed following a [...] you belie (more content not included)... Normal [facility] HEMATOLOGYOrdered By: SYSTEM SYSTEM on 09-27-2022 [...] 09-27-2022 Albumin [Mass/Vol] 3.8 g/dL Normal 3.3-5.0 [facility] Comment on above: Performed By: #### 2 546251, 23410509, 3112439, 2579978, 1777613, 15394325, 9104594, 1873153 ####[facility] [address] [place] [address] Albumin/Globulin (S) [Mass conc ratio] 1.2 Normal 1.1-2.2 [facility] Comment on above: Performed By: #### 2 356509, 03087570, 3310056, 6355423, 3174513, 03871494, 2966160, 2069113 ####[facility] [address] [place] [address] ALP [Catalytic activity/Vol] 79 Int._Unit/L Normal 21-98 [facility] Comment on above: Performed By: #### 2 318856, 50588059, 0946036, 8856718, 6151498, 79792621, 8632669, 9149465 ####[address] [address] ALT No additional P-5'-P [Catalytic activity/Vol] 11 Int._Unit/L Normal 6-46 [facility] Comment on above: Performed By: #### 2 628944, 37707620, 7128583, 5944606, 5503185, 55347087, 6941093, 4861441 ####[address] [address] AST [Catalytic activity/Vol] 19 Int._Unit/L Normal 5-43 [facility] Comment on above: Performed By: #### 2 456241, 08815271, 5962791, 2624540, 5661626, 62937815, 4489794, 4559576 ####[facility] [address] [place] [address] Bilirubin [Mass/Vol] 0.6 mg/dL Normal 0.0-1.1 [facility] Comment on above: Performed By: #### 2 932393, 96084247, 6667928, 5141333, 2621256, 75590937, 1548949, 2608481 ####[facility] [address] [place] [address] Bilirubin.direct [Mass/Vol] 0.1 mg/dL Normal 0.1-0.4 [facility] Comment on above: Performed By: #### 2 590500, 27096721, 5407134, 0631647, 6309129, 77445606, 5355334, 8600886 ####[facility] [address] [place] [address] Bilirubin.indirect [Mass or moles/Vol] 0.5 mg/dL Normal 0.1-0.9 [facility] Comment on above: Performed By: #### 2 538051, 63745463, 2583147, 1167986, 2232334, 31013876, 0816479, 9077024 ####[facility] [address] [place] [address] Globulin (S) [Mass/Vol] 3.2 g/dL Normal 1.4-4.0 [facility] Comment on above: Performed By: #### 2 627916, 36672128, 9113367, 9683632, 8304670, 61998101, 3402492, 8369514 ####[facility] [address] [place] [address] Protein [Mass/Vol] 7.0 g/dL Normal 6.0-7.8 [facility] Comment on above: Performed By: #### 2 416173, 63082819, 3383555, 6215804, 9489252, 50497212, 9481448, 8756845 ####[facility] [address] [place] [address] Lactic Acidon 09-27-2022 Lactate [Mass/Vol] 0.5 mmol/L Normal 0.5-2.2 [facility] Comment on above: Performed By: #### 2 830005, 63072405, 8432613, 7410196, 7768334, 62875214, 4639948, 2783165 #### [facility] [address] [place] [address] Sed Rate Automatedon 023 Sed Rate Automated 25 mm/hr Normal 0-34 [facility] Comment on above: Performed By: #### 2 072412, 50436079, 5840076, 3096208, 1213165, 32670780, 3165721, 1525806 #### [facility] [address] [place] [address] UA With Cult Reflexon 2022 Bilirubin Ql (U) Negative Normal Negative [facility] Comment on above: Performed By: #### 1 3790889 ####[facility] [address] [place] [address] Clarity (U) SL CLOUDY Invalid Interpretation Code [facility] Comment on above: Performed By: #### 1 5953040 ####[address] [address] Color (U) YELLOW Normal Yellow [facility] Comment on above: Performed By: #### 1 7721946 ####[address] [address] Epithelial cells.squamous LM.HPF (Urine sed) [#/Area] /[HPF] Normal 0-2 [facility] Comment on above: Performed By: #### 1 4199453 ####[address] [address] Glucose Test strip (U) [Mass/Vol] Negative Normal Negative [facility] Comment on above: Performed By: #### 1 2913822 ####[address] [address] Hemoglobin Ql (U) Negative Normal Negative [facility] Comment on above: Performed By: #### 1 8870893 ####[facility] [address] [place] [address] Ketones (U) [Mass/Vol] Negative Normal Negative [facility] Comment on above: Performed By: #### 1 8046120 ####[address] [address] [place].plasma/[place] .RBC (Bld) [Mass ratio] 0-3 Normal 0-3 [facility] Comment on above: Performed By: #### 1 8962431 ####[address] [address] Mucus Ql (Urine sed) TRACE Normal [facility] Comment on above: Performed By: #### 1 3737835 ####[address] [address] Nitrite Ql (U) Negative Normal Negative [facility] Comment on above: Performed By: #### 1 8649022 ####[address] [address] pH (U) 6.0 [pH] Invalid Interpretation Code 5.0-9.0 [facility] Comment on above: Performed By: #### 1 2309920 ####[address] [address] Protein (U) [Mass/Vol] Negative Normal Negative [facility] Comment on above: Performed By: #### 1 8244361 ####[address] [address] Specific gravity (U) [Rel density] 1.010 Invalid Interpretation Code 1.005-1.03 0 [facility] Comment on above: Performed By: #### 1 9499930 ####[address] [address] Type of Urine collection method Clean Catch Normal [facility] Comment on above: Performed By: #### 1 2373785 ####[address] [address] Urobilinogen Qn (U) 0.2 {Olivia'U}/dL Normal 0.0-1.0 [facility] Comment on above: Performed By: #### 1 3273059 ####[address] [address] WBC Auto Ql (U) TRACE Abnormal Negative [facility] Comment on above: Performed By: #### 1 3310682 ####[address] [address] WBC LM.HPF (Urine sed) [#/Area] 0-5 Normal 0-5 [facility] Comment on above: Performed By: #### 1 7848963 ####[facility] [address] [place] [address] URINALYSISOrdered By: Liz Bueno on 09-27-2022 Bilirubin [...] AM) Normal Negative [facility] UA Auto SS [place].plasma/[place] .RBC (Bld) [Mass ratio] 0-3 /HPF Normal [...] [facility] UA Auto SS Urobilinogen Qn (U) [id number] {Olivia'U}/dL Normal 0.0 - 1.0 EU/dL [facility] UA Auto SS WBC Auto Ql (U) Trace *ABN* (09/27/22 4:48 AM) Invalid Interpretation Code Negative [facility] UA Auto SS WBC LM.HPF (Urine sed) [#/Area] 0-5 /HPF Normal 0-5/HPF [facility] UA Auto SS XR Ankle 3+ Views [...] mGy = na DAP = na Normal [facility] eGFRon 09-27-2022 GFR/1.73 sq M.predicted among non-blacks MDRD (S/P/Bld) [Vol rate/Area] 49 mL/min/1.73 m2 Low >=59 [facility] Comment on above: Order Comment: Order added by Discern Expert. 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 Kidney failure is indicated at less than 15 mL/min/1.73m2. Performed By: #### 2 [id number], [id number], [id number], [id number], [id number], [id number], [id number] ####[facility] [address] [place] [address] Pre-Certification Formon Pre-Certification Form PT SCHEDULED W/ D R.MCBRIDE FOR LAP MERLYN ON 07/26/22 PARAMOUNT PRIMARY AND ACTIVE NPCR PER PARAMOUNT CODE MIME ARTIST (09359) DX PASSES MEDNESC Normal [facility] Free T4 (Free Thyroxine)on 0 09-06-2022 Free T4 [Mass/Vol] 0.30 ng/dL Low 0.61-1.[address] [facility] Comment on above: Performed By: #### B MP, CBC, LIPASE, HEPATIC #### [facility] [address] [place] [address] [facility] Thyroid Stimulating Hormoneo n 09-06-2022 TSH Qn 14.86 m[IU]/L High 0.45-5.33 [facility] Comment on above: Result Comment: PERF ORMED BY: [place] [address] PATHOLOGIST SKIRT TRIMMER WILDER BOTELLO M.D. Performed By: #### B MP, CBC, LIPASE, HEPATIC #### [facility] [address] [place] [id number] [place] Thyrotropin [Units/volume] i n Serum or PlasmaOrdered By: Ward Zuniga on 09-06-2022 TSH Qn 14.86 m[IU]/L 0.45-5.33 [facility] Thyroxine (T4) free [Mass/vo lume] in Serum or PlasmaOrdered By: Ward Zuniga on 09-06-2022 Free T4 [Mass/Vol] 0.30 ng/dL 0.61-1.[address] [facility] Triiodothyronine (T3) Freeon 09-06-2022 Triiodothyronine (T3) Free 2.19 pg/mL Low 2.50-3.90 [facility] Comment on above: Result Comment: PERF ORMED BY: [place] [address] PATHOLOGIST SKIRT TRIMMER WILDER BOTELLO M.D. Performed By: #### B MP, CBC, LIPASE, HEPATIC #### [facility] [address] Triiodothyronine (T3) Free [ Mass/volume] in Serum or PlasmaOrdered By: Ward Zuniga on 09-06-2022 Free T3 [Mass/Vol] 2.19 pg/mL 2.50-3.[address] [facility] Coding Summary.on 08-02-2022 Coding Summary. CD:[id number] Ww+PGh lYWQ+UD8EQASfR38owRAhjS8dA 0NMTElOSywgQVBQTElOSyIgbmF aEM3snPDwWQMt IC8+XL8vYOGvLydopCTcm6V8hZ I1H60azt5eWMhaoEH6DCJmBfNf vxjal3jqwPi7YDqdYozmVrTr CXKipM91GFR3sW01Hi20jRCvlR Cyp9rqbMd4BnAzOSArHVY3kMjn TYqgx1AgWXOrK25fuANkg0Q9 BUSwlXpogYScMcOovQV1hQ0pHY vdwywac8azgnezRgx5qs09fOQe d5Z5fZL3O7JuvqU0CVOehBNe BnjvbDYAsI9fubghq4ntuvbdLe NtNEZbCFc3IGz1OENuqUlvMpNd HL54TYW9GQXgfqQiV4EsDEJw hOjsCqR7x0F8Dv6BO4IMSiikF5 VNTUFSWTwvdGQ+JS51fk87R9Tn NiycUso0SZDeCEB9bXW2tC8j CVNsJJxlo3G2zYN5R5KmhmFaoa 6ds1wyYAJvRUqbM36suHBck6P0 DVTymFY4TBVhwEbaImVauM32 Oyc+RZHwrOubl8YiXxawb2ysk2 dpaWl3NueoZQEpamCacMyqYJU4 d0BlWa0fJGWtnBH3pQG6lQ3c MhLuXkM6DRefV587TlDehURmIs azH15yB2UofFO+UJFxCbk4UZKz rPzhML6lF1IvPLClegevxDYa uYmaOE5qGKEdncynADSlhV2gJB MtM0a1GyBqUxA4GDyqS8MiNLOv qmidOj31rI2oQmKyNeC6GYsc Q7VwkoQ2GBZnoCVwXOfaQWF5X5 5bx2V0AQEhPGGmXSG9xSV2vE3s bGlnbjogbGVmdDsgdmVydGlj SSlrQWssT965KRHwmUhkLfXbEJ luZyBEYXRlOiAgMDUvMDkvMjAy MzwvdGQ+VHMlNWV9sTvrTCGe mJPoYSjhBv5pzWyhgKrmKT9gAV BnjmzfDSBmxO7tRCRvvYPpuFeq HM1nJCEsfvode798MuCaVLX7 LRWdzRZbD7ZrzS7uRfKtIQNnOR TuH3CupNXnVGmnI333TRnmAmN7 FGNbgbJtO7UrOZLihWczWyB0 m0Q5Dy4Hm4NxuqnkR7SboNNgOr LpEjbbPJe8N0RxVtqfiEZ+PC90 AUWzTF35HCa5ZTP2xKjaDKoa QMDgZ1WdjU9nWoVtSHDtKGDbAw c+PHRhYmxlIHdpZHRoPScxMDAl BsNhiRdlJP6sAz4cLQSoEAIy zRgtkIUjZfQgr6moVNMoFWfrPG 0pgNubR4YpvHI6LWQam8w9Zy27 R42oX5ZejML+RZPikDQ2mRI8 sZ2jWuWeBuW9PSweN651SyGxeB QeScrrv1orw2fffVd0DmB2RHKr ecCvyTvqGHR9w1XzFo70X32h IHdpZHRoPSIxNSUiIHZhbGlnbj 7vlZ6mUa7+VJAbiNU7yLV8xG3d ZzUoNbN0VJsaN234GuAcfNKy Umdnt3srk8cwkAp7EuYdXSQhdl FthKuaDOY9h8PwUg79V1FsfHbk n1YfIkj1bi13uDTdl4Z0eSB0 K7XoDHGhdgvxqEOcfYkoMK9pSN CsxunxJYUrdB9sQEXdQ3l6CzCg YsK7AHvaL0IdrjE3KYHslSGi PRZmgMIHuK3pwsvaa4gopknsId CiYOEsWKb7LJl8CTTboEawAdWx GXD1QbN0GKW2wQIrrW0yzXtu mwrezU1yAic+NOI1lTTrzMNDDC 1lOjwvdGQ+RPFvHOU4kFadWWuv PIJurS6kLURjM4u8CtAtNrK3 ROfvW8ZcboV9NYBjlXQsWGZmoE QXnL8mquzyc5fjiqgiLhXcHXLd XOg9WAh9PHBeeHhxNqHkBSJ9 FyQ0BJZ4cVWnfR2ksJswwkebeO 9wOyc+PxatkUxwYXJ7CGz3N4Iy Lqb8LYPksHiwSB6bbYYrMPki Wv7wpAfkpJjiKB8fWDOnsmuca3 50OyRqy8cfEQGcvCKwYWjwCTJ6 H73wz6R8ATBvBHEuXYE6vRR8 eG2vxGriswxgkUAphIwmbvXgqX vzIPpyNOgqE312HLNpbLuvCfLy QTu4P0BdFzm6VZLahAyaGB2d eCUgDYdkGm4txNxsyDnvGZ1uEU Fduxcuo555BnKzs2olWIEtpCTn WRrbNUG2D50rd0P3SOGdQITu JGV5fHV2zX2inKnddijmwSLkfG jfqdMcfCicJBlwSTdpQ734FKRz sWmvQiPvzEh2B4VsWfv2VGGb uGbmYI2qwHCdJUauWf6ouXnmuO lgMB4iLGWpdmdry037IyTlq9ea HCDgmZZoRRvjWDS8Z50xz9V2 TMAjRCEuQFL5nZD4dL5lwTptra ogbGVmdDsgdmVydGljYWwtYWxp V180URNanHulKdUcoXzkzdXb XPcrHDl9X2JpOngypWW+PC90YW TnDG19aOUfmTHoh8srsEw3NfCr TKOvZRW0tXvsXQjvv0TyYNEk A53quWGyd7B9RNIryCyyhUKqFc ZyuNZ2oK0tGHwsvedcg7zcthep Xihhl6fmax85gQ05D86dZKiv UUKoZVQvLABfBZNgsPpwvs5bbF 9wIi8+LQAjwUV1mSM2wQ8gQPRh BxR3WBanK140XyTilKUaQloy m1geq2grdMe7QzU2FSPdxeCidP wfVDE2a5LiXz94N57mSGbmKRAx RECuAVYsMXGkfOmhvg0ypL4e Ii8+NSKgqYQ4nKJ0pY2uUqQfIj W3VUkeQ207BoIxtTRbZutbN68c P2ZhjMC+AALrMra8CZEipDqu AF9diSByYIhyQn7sKYP2FjLvHa WkEMmvF0LvSEPszecgfmmxuTC8 KUKbRWVxjX22Ej5ipElmJRId uBFNjW1whcqjw0ggtzbfTzTuVS BbLGa2LUu4EGXhgUfbSeStLQM3 UrM0CDL8vRAhbO1idAmjxsaa sE8gA1UiALQsejleEu39pK9kAi PxXvH8AYfcHvr+SJhBNL3UFLRU BTWAFdTLEQ75EZ17yRSkj2R6 uDG0Z7DyOAVojamgxvzssOG2DH UrTXXsdH82sJUjSGqbEr7mq5O2 x111FVMjHKXidN65Si7bmMqb MRVhzBDLqR4bjjikq8xuodlyHw CjNQOwXGj9CHz7ENZawDgeNuFh FIW8QjI9SEM0oOSmeZ8dhZix scwddY3uHjm+YVTuRkEaZFh3MH wvdGQ+MGMzFUG5wDjgLMsmRDAh aA5cSGUeY6z8AyUuHdO4NVee B9BcERMdgjddQg12uY7oBnUhSu L3FTjvK6JbnuN3MHWcxGBuPLfj RTI8X43td7R9RJLkHLVvRAF4 pOI6lS4qcNlkwaphcMNywCrrcx GfcXqjKKvuEZwvV009MNInyYxe PxP1CPkoVMSqBU72FP68rIUj d9X8gCS4Z1OmIQDicukiwunbkR D3DZFiZPMbfG68dQLmWJwaKk6b f8W4p215PCRbFQIuhS45Iv7e kUstUHRewSONcL1rezezl2nzyc mcEfZxOBMmQUd4IJl6UKDffBts IeTrUFD6RfM3OAQ9mWYroK2i cZfispkqbC5ySkh+RmVtYWxlPC 52OP18mFXex9I4tJV3D5RdFKTm igvshdpydFV1VMGiNTAhvZ25 cUCsRWuzNf8bd2P0d566LGYzII GtvD91Pe2pvDkzLRXuuWQWiG9a dtcql1gbagmxFoZtDIDuCNt8 AGi5KLTgzEveNjBnNKP8EnR6HT C0sLMrrZ7byVvdebemhB4mWoa+ PV9qlKihgO8bsZ8NLG9rYVSn tPWOhODrRMA4SS97TS18E7VcZs wvdGFibGU+PHRhYmxlIHdpZHRo GIubYPWdNwWymQjlSF3gRx8g ETYwMEAasMpplPWaQcCha9xtFS YaODjtRQ9enCjtM0XvnEV1FFFr p1b1Jm56X18sC4XhkCZ+PGNv dPN9gEH2kJ3tKdBqNhW8YGbeL8 81PiLsnIThSqtxv7bin0lhsKq2 OvOnUVQrejUvvFleYEY2j0Mf Ck03L58kDKjvBTKhQOAtHENjVQ GmcPxoar9kjE6aJu4+PGNvbCB3 pLW5eK6gFnBlJkW1GHlqC324 HrZrrOXhGvrmA72oJ1NakUH+PH KsQmr4GBCamBebQA5hlULyTQur Jt6dPKA9KoAiPvQoSCltH1Je RNNjossprdruyGS7BIQoMDTuiB 11Gx5tcJcoWc8bFNEoAIR5LKNo aLDhU5TplA9zYxGdPQKgYKWx F5NsyHVwTAngR739EDjyYbC3LO EarvFfJ8QxNDXqpFgdDhZ8h4G9 Yd0MvKpotTJlZD4lIoGeLZs8 U6UrJki2XIUiwNlsNC9kiGPwYA hwJj6awLuxxJouRZ7pNHZdybbr j260ImXpf5leHNHsnGThXFkn ERM2I94uu4J0UCSlAFBoPSL8aA W8yO9tnTrpajyhsRKkpXtcqlEi vKimOMreEJmwC471PQLghTaa HnYIKil8K0OiBid3RYDerDwtVD 9gkMVaEIrjZn1klEgbrBqrKZ1r OUHzmhdia774NtEdi4xjAGEo kLAzPOeoSWD7P18dk8T1ZWCxUE HaLZA6xTB8yA6xbApwoczcgYRz jAscheDuqJswZDbaDElcT368 NDCrfVhjEq4PZmw6X1AvEgi8GX OldJqbWN3toDPlJUejDo8enLeo qLuwIY5yWXNwswueb975QiFl d7vnGRGueJEsMMquORG9K94kx1 B0YPFaHHCuBJJ9xAD1nW2hzCsw bjogbGVmdDsgdmVydGljYWwt OEiwW161WZPzuDoaCmBleVMhCl wvdGQ+TZ14aw96Y4GzKuupObt3 NTXbYTJ9uDQ9sY4fBFWxTPmd l3G2fGR1 (more content not included)... Normal [facility] IntraOperative Documentson 0 07-29-2022 IntraOperative Documents [id number]#1.00CD:127 Normal [facility] Postoperative Documentson Postoperative Documents [id number]#1.00CD:127 Normal [facility] Main OR Intraoperative Recor don 07-28-2022 Main OR Intraoperative Record IntraOp Document Type FT Summary Primary Physician: Talon Mcbride DO Finalized Date/Time: 07/28/22 08:06:27 Pt. Name: GERRY VICTORIA Maryann Wild./Sex: 1955 Female Med Rec #: [id number] Physician: Talon Mcbride DO Financial #: [id number] Pt. Type: A Room/Bed: [place] [address] Admit/Disch: 07/26/22 05:37:39 - 07/26/22 14:50:00 Institution: [...] Taylor Waite PA-C, Candis Barker Role Performed ELECTRICAL INSTALLATION SUPERVISOR Surgeon - Primary PA/MIXING MACHINE TENDER Time In 07/26/22 08:22:00 07/26/22 08:22:00 07/26/22 [...] Belkys Andrade Ii, Sarah M Role Performed Vegetable Trimmer - Primary Staff - Other Scrub - Primary Time In 07/26/22 08:22:00 07/26/22 08:22:00 07/26/22 08:22:00 Time Out 07/26/22 11:45:00 07/26/22 11:45:00 07/26/22 11:45:00 Procedure CHOLECYSTECTOMY CHOLECYSTECTOMY CHOLECYSTECTOMY LAPAROSCOPIC W/ LAPAROSCOPIC W/ LAPAROSCOPIC W/ CHOLANGI(.) CHOLANGI(.) CHOLANGI(.) Comments ORIENTATION JOIE WALLIS, [facility] AIRFIELD DEFENCE GUARD STUDENT, ALSO SCRUBBED IN Last Modified By: Karson RN, Umu Ty RN, Umu Ty RN, Umu Weber 07/26/22 11:54:21 07/26/22 11:54:21 07/26/22 11:54:21 Entry 7 Entry 8 Entry 9 Case Attendee Daphney RN, Ivet Newton RN, Jess Foley RT(R), Mamta Valles Role Performed Vegetable Trimmer - Relief Vegetable Trimmer - Relief Shank Faker Time In 07/26/22 09:08:00 07/26/22 09:08:00 07/26/22 10:45:00 Time Out 07/26/22 09:31:00 07/26/22 09:31:00 07/26/22 11:45:00 Procedure CHOLECYSTECTOMY CHOLECYSTECTOMY CHOLECYSTECTOMY LAPAROSCOPIC W/ LAPAROSCOPIC W/ LAPAROSCOPIC W/ CHOLANGI(.) CHOLANGI(.) CHOLANGI(.) Comments RN break relief. RN break relief. Preceptor Orientation. Last Modified By: Umu Ty RN, RN, Umu Orozco RN 07/26/22 11:54:21 07/26/22 11:54:21 07/26/22 11:54:21 General Comments: SANGITA CAMILO, ALSO IN ATTENDANCE. JORDI NEALfaucets assembler Protocols FT Pre-Care Text: Implements protective measures [...] Diagnosis C (more content not included)... Normal [facility] XR Cholangiogram in ORon XR Cholangiogram [...] mGy = 17.37 DAP = na Normal [facility] Blood Bank Slipon 07-27-2022 Blood Bank Slip [id number]#1.00CD:127 Normal [facility] Consent for Anesthesiaon Consent for Anesthesia [id number]#1.00CD:127 Normal [facility] Discharge Instructionson Discharge Instructions [id number]#1.00CD:127 Normal [facility] IntraOperative Documentson 0 07-27-2022 IntraOperative Documents [id number]#1.00CD:127 Normal [facility] Preoperative Documentson Preoperative Documents [id number]#1.00CD:127 Normal [facility] ABO/Rhon 07-26-2022 ABO/Rh Positive Invalid Interpretation Code [facility] Comment on above: Performed By: #### 1 [id number] #### [facility] [address] [place] [address] ABO/Rh History Checkon 07-26 ABO/Rh History Check Verified Hx Blood Type Normal [facility] Comment on above: Performed By: #### 1 [id number] #### [facility] [address] [place] [address] ABSCon 07-26-2022 ABSC Gel Interp Negative Normal [facility] Comment on above: Performed By: #### 1 [id number] #### [facility] [address] [place] [address] BLOOD BANKOrdered By: Dell Taylor on 07-26-2022 ABO/Rh Interp Positive Invalid Interpretation Code [facility] BB Subsection ABSC Gel Interp Negative (07/26/22 6:23 AM) Normal [facility] BB Subsection Blood Bank ID#on 07-26-2022 BBID# [id number] Invalid Interpretation Code [facility] Comment on above: Performed By: #### 1 [id number] #### [facility] [address] [place] [address] Consent for Procedure/Surger yon 07-26-2022 Consent for Procedure/Surgery [id number]#1.00CD:127 Normal [facility] Consent for Treatmenton Consent for Treatment [id number]#1.00CD:127 Normal [facility] Discharge Instructionson Discharge Instructions GERRY VICTORIA [...] MARYCARMEN NAVA PA-C Where: [facility] Comment on above: Result Comment: Elec tronically Signed By: Mili BACON, Robina Wolf\johnson\Date and Time Signed: 07/26/22 13:15 EDT H&P Updateon 07-26-2022 H&P Update [id number]#1.00CD:127 [facility] HEMATOLOGYOrdered By: Lucero Ramirez on 07-26-2022 Hematocrit (Bld) [Volume fraction] 31.8 % Low 34.0 - 46.0 % [facility] HemeAutoSS Hemoglobin (Bld) [Mass/Vol] 10.1 g/dL Low 12.0 - 16.0 gm/dL [facility] HemeAutoSS Hct & Hgbon 07-26-2022 Hematocrit (Bld) [Volume fraction] 31.8 % Low 34.0-46.0 [facility] Comment on above: Performed By: #### 1 [id number] #### [facility] [address] [place] [address] Hemoglobin (Bld) [Mass/Vol] 10.1 g/dL Low 12.0-16.0 [facility] Comment on above: Performed By: #### 1 [id number] #### [facility] [address] [place] [address] Main OR PACU I Recordon Main OR PACU I Record PACU Phase I Docum ent Type FT Summary Primary Physician: Talon Mcbride DO Finalized Date/Time: 07/26/22 12:58:56 Pt. Name: GERRY VICTORIA/Sex: 1955 Female Med Rec #: [id number] Physician: Talon Mcbride DO Financial #: [id number] Pt. Type: A Room/Bed: [place] [address] Admit/Disch: 07/26/22 05:37:39 - Institution: Case Times [...] By: Violette Castillo I 07/26/22 12:58 Normal [facility] Main OR PACU II Recordon Main OR PACU II Record PACU Phase II Doc ument Type FT Summary Primary Physician: Talon Mcbride DO Finalized Date/Time: 07/26/22 15:08:15 Pt. Name: GERRY VICTORIA/Sex: 1955 Female Med Rec #: [id number] Physician: Talon Mcbride DO Financial #: [id number] Pt. Type: A Room/Bed: [place] [address] Admit/Disch: 07/26/22 05:37:39 - 05/02/23 14:50:00 Institution: Case Times PACU II FT [...] By: Robina Garces RN 07/26/22 15:08 Normal [facility] Main OR Preoperative Recordo n 07-26-2022 Main OR Preoperative Record PreOp Document Type FT Summary Primary Physician: Talon Mcbride DO Finalized Date/Time: 07/26/22 09:32:38 Pt. Name: GERRY VICTORIA /Sex: 1955 Female Med Rec #: [id number] Physician: Talon Mcbride DO Financial #: [id number] Pt. Type: A Room/Bed: [place] [address] Admit/Disch: 07/26/22 05:37:39 - Institution: Case Times [...] By: Umu Ty RN 07/26/22 09:32 Normal [facility] Monitor Recordon 07-26-2022 Monitor Record [id number]#1.00CD:127 Normal [facility] Monitor Record [id number]#1.00CD:127 Normal [facility] Operative Reporton 3 Operative Report Indication [...] Surgeon(s) Talon Mcbride DO (Surgeon - Primary) Avionic Technician Candis Theodore Anesthesia General Connie Winston DO (Compliance Assistant) Jeana Villanueva CRNA (Other) Estimated Blood Loss [...] defect was closed with interrupted 0 Vicryl norzow-ix-pfpoe sutures as well as the existing 0 Vicryl stay sutures. The skin incisions were closed with subcuticular 4-0 Monocryl suture. The skin incisions were then dressed with Dermabond. The prior percutaneous cholecystostomy site was covered with a 2 x 2 and tape. Patient was extubated and taken to PACU in stable condition. Normal [facility] Comment on above: Result Comment: Elec [...] these instructions at home: Medicines ? Take ffbz-xsd-pzecnip and prescription medicines only as told by [...] cannot use soap and water, use hand construction recruiter. ? Change your bandage. ? Leave stitches [...] provider. Document Revised: 09/14/2021 Document Reviewed: 09/14/2021 [employer] Patient Education ? 2022 [employer]. Cholelithiasis Cholelithiasis is a disease in which [...] types o (more content not included)... Normal [facility] Progress Note-Physicianon Progress Note-Physician Patient: GERRY [...] day(s), # 12 tab(s), Refills(s) 0, Pharmacy: [facility] [id number], 154, cm, 07/18/22 14:13:00 EDT, Height/Length Dosing, 74.6, kg, 07/18/22 14:13:00 EDT, Weight Dosing oxybutynin 10 mg ER Tab: 10 mg = 1 tab(s), Oral, Daily, # 90 tab(s), Refills(s) 3, [id number], 154, cm, 11/30/21 13:27:00 EDT, Height/Length Dosing, [...] All Problems Acid reflux / SNOMED CT 6394142589 / Confirmed Anxiety / SNOMED CT 5678912222 / Confirmed Arthritis / SNOMED CT 7761563 / Confirmed Atrial fibrillation / SNOMED CT 03179954 / Confirmed Chronic fatigue syndrome / SNOMED CT 06811238 / Confirmed Constipation / SNOMED CT 689645526 / Confirmed Degenerative disc disease, lumbar / SNOMED CT 27442626 / Confirmed Depre (more content not included)... Normal [facility] Comment on above: Result Comment: Elec [...] Daily, # 90 tab(s), Refills(s) 3, Pharmacy: [facility] [id number], 154, cm, 11/30/21 13:27:00 EDT, Height/Length Dosing, [...] All Problems Acid reflux / SNOMED CT 8895348817 / Confirmed Anxiety / SNOMED CT 6221691711 / Confirmed Arthritis / SNOMED CT 1319387 / Confirmed Atrial fibrillation / SNOMED CT 09546377 / Confirmed Chronic fatigue syndrome / SNOMED CT 15240109 / Confirmed Constipation / SNOMED CT 389166514 / Confirmed Degenerative disc disease, lumbar / SNOMED CT 36010359 / Confirmed Depression / SNOMED CT 00877763 / Confirmed Fibromyalgia / SNOMED CT 990167565 / Confirmed Herpes / SNOMED CT 144658754 / Confirmed History of irregular heartbeat / SNOMED CT 7951165683 / Confirmed (more content not included)... Normal [facility] Comment on above: Result Comment: Elec [...] Daily, # 90 tab(s), Refills(s) 3, Pharmacy: [facility] [id number], 154, cm, 11/30/21 13:27:00 EDT, Height/Length Dosing, [...] All Problems Acid reflux / SNOMED CT 6439819599 / Confirmed Anxiety / SNOMED CT 7710914402 / Confirmed Arthritis / SNOMED CT 8404105 / Confirmed Atrial fibrillation / SNOMED CT 41977324 / Confirmed Chronic fatigue syndrome / SNOMED CT 63466096 / Confirmed Constipation / SNOMED CT 448281293 / Confirmed Degenerative disc disease, lumbar / SNOMED CT 35442515 / Confirmed Depression / SNOMED CT 42418041 / Confirmed Fibromyalgia / SNOMED CT 589939963 / Confirmed Herpes / SNOMED CT 852470197 / Confirmed History of irregular heartbeat / SNOMED CT 9887473425 / Confirmed (more content not included)... Normal [facility] Comment on above: Result Comment: Elec tronically Signed By: Connie Winston DO.br\Date and Time Signed: 07/26/22 07:19 EDT Coding Summary.on 07-21-2022 Coding Summary. CD:[id number] Ww+PGh lYWQ+VD0AKWJnO22gfJXwwH1dY 0NMTElOSywgQVBQTElOSyIgbmF xJC1utKZtJHPa IC8+MN9oCAPbUaatgWPzo6U8lM R3C60rwq9pCZnfgTV0IHHeJtEu yxjuv5gvaCr2LYmrFbdcFiHa ZZEbaK89RPP0bN72Ja55fOPqaE Enb4xhtMs8PdMmKJKfGYK0sJee WFvdf6FtCCAiR41hpIVvz6N7 IZJlsSdkxMLgWqNqvJE0xC8pUY okhcxbn4gcmrjbYdi9jh71bYTv y6R6qPQ6V0IgwgS8WQYlgVCm FnareKBZpE6vgmiop4nffxnaJb FjVNLuIPh2PQu5KPIamVqlAlEf KJ70QLA4DUTcecPpJ8MqUKAh fPpnNtC8g5V5Qg3YT9BYDbfuM0 VNTUFSWTwvdGQ+ZF18wf16I2Bq YfntDuw3EDDrDWP6nYI6zP0p BKXvYQmku0G6bXS9L9WnvsCabu 9ht0ksUEExXItxK26uhBCxi4E2 PMZflBX5AWQgnJvoHnVaiN64 Oyc+LXThfYzhi0LxPoelp0psu0 molLk7RqxxKIHbloKfgOckDTV6 n9LmUw4mOTGhhLQ5bHC2kN1v EfYuLpR5EBwqI703RjKzhEWeRt hcS29kQ5KfhCF+UJYjHtx8MIKv wNtcWC8nJ9XmQPVnrxnlnCQq sRyvOU3lEUElvczuKJUprK4hUF FrN6z5DtCgHtL9QQwtF7BeWARb popfVd22wV3jGgZwBeR6EEde W3YtelH0BFXeoKNjZFyeQSG0T6 4nq1A2RSWsFRFoZBI1vUW1bU3n bGlnbjogbGVmdDsgdmVydGlj YAmgZJogB189GOEwmRhySfSkCX luZyBEYXRlOiAgMDQvMjcvMjAy MzwvdGQ+XSMoZNM1xWyuAXEp cDHxRTkqQk9gaBpwbGxaIX5fIY QfuptwTUMfxV9hAYYmkYSdmGdk YL8sQRBagnfdy449OtPnHBH3 QLVfbOHbR0TpjU4xXrZoSJGiUA EuB5OxrMInPFuaN303ECdsQsL2 OFEstaGiH5SbMSBzbJbqKkY6 i4V0Qa2Cg4KcawoiE9DvbKRzRb AdKzexJDs4R1KtSnvrdFD+PC90 NPVfEY63VVw9HFP6rGwtFVme EUGcV5LskU6uByXlRUWoUHShJw c+PHRhYmxlIHdpZHRoPScxMDAl YtNdkIlwLJ3gCc4mNIXkWRGp jZyuiIPnFoSdl7luKMSdKMhmVN 9miBywY8MlwZO8FXHon8j2Tm58 O57dK2SjwEH+RZFnxCI1vOV0 qF5yTvNyZiE3KEuqE428ClAvaA DgPczsk8xvr5lvaGz0XtI7LHSc yeOaeXfjHRN8y8BoIh24Z55a IHdpZHRoPSIxNSUiIHZhbGlnbj 8wjD0eVu0+QNIfyGV4qNI6sC4t FqLxOyU4LKeaD937JtHsmBDg Ffbis7wge8pegXu7BnZvJWJeft VmbNhdFIZ4c0OkYt21G6XukVgh e6UwTcr4uk51wCEhs1G1zII7 F1ZzZLQknuelbWDbzEjzOG7jKV XmicolJBWzzZ7kDFSxG2t2VgVp LgK5MXjxX8WnziQ8CUZayFAc QSVdcXAVuF0mqpgkm6biebmcFo XvPCUbGSl0YFn4QRPgkVgzTcFg TUK8HlI7MXE5bUKigR3fjVec hrvhgF3lEua+NHY6hVTcaAMBKV 1lOjwvdGQ+THVsYMZ1wUdfFVlm ZBDhfZ7uPXPkI6h2OkOwNnM7 WJngF7BzwyY8SFQkjIEdMIYgwZ HPvB5thmiwr5snxnpwGjYjQWWh EAp3NLw9AHBebGzmVwWvRRQ2 QlE3XVZ6iWSbjS7pzXvzcamkcL 9wOyc+ItfplItdEDA3GFa6T3Ed Ugg2FCOpzXcjUL5kdKCuRHop Xn8vsGgiiTmxLW2qINEwgjbyh7 48KlAkl2qtDWCdbKWpXSwzPRZ3 O11lc6D9QJQvZQPqGVU7jUJ4 eX6ucTnwsdplkGJmoJprkkRcrH knDHwlQMvvY991CKGbxInrDdIz ZDo6S8JpUlb9TYWlvMabOP6v cJBgHWgiFd7wjLcezOsdWE0lCF Mqwjcqb087KfWoj9uwJSMqqHPu WDeiBIR6K21lh3N5TVKsWAMk EKB5bNC1fA6juCsdfynylDKygS vycuQuxUlwRUblKRzpB954XGOm fOwfPsDreUg3M9DdVyx1VXOf tCosPI9isYBwETgqQa9jcKmxzK xoVD0wJTWfsumvf590LzSph2sg VWSvkMKsALjhDCH6Z65pn2R0 HUUnONXcBLA0vPB7uA9waNxifw ogbGVmdDsgdmVydGljYWwtYWxp F500KOEkyVgzTdMemWmcfoNe RSnzSZz8N5EpQlflkDS+PC90YW VqRT83yVDxbDBhw4fmeMb3PbEh JJCjNNS5iDjoPTcni6KaOZWi I97qySVjk6L7HWLawLqsaLAfYb TlfNY4qS2bCLaxebrcu4soeukg Kinbh8ndeh80gE99Z02zDRkt ENBrGLIyOKHaYKMyeSorpq2rlZ 9wIi8+XSIkrWS7yWR4qN4rSESr OoA8DSllX661WsDybXMxMjah e0itb1hodDm1YvX8OYMkptAxzW yxIEV6y8ByJn10H97uXPxnILYh RLPpRUPtEXLwxWmvmn4atN0a Ii8+XLPlhTS4oGH0bW8rYcSiTz N3LQanA739DcOzqNFyKsuiP11o A6DrjAK+KSAuEre4GAOxyObp IY6tmBRdNCudQu0pCSM0ZhLbXs YfOVgpX2SuZDSlaugnlsylnHP1 SPWoXEEslH85Iw0yrFcgKMJl rKXAbI3epkedu7qplizwDmXxVQ UqETb0NXx5XCGynZjmYwSwAZJ1 JsN7LMQ9sYErsV0tdLptdtrq yL4aD7HwHZEhmoftFg77sI1nKc AkHwW4DXxiLtz+UJkEVA8BQORF MOFXQmNVNH91RJ66cIIre7I4 uDU1M8IoETBaresjzyyttHM5UD JfCJBebN31gMZoSXidMk6pg4I4 u641VIAcYGDsbB20Pm8vdZkq QCJxlXBMzY9ktuese6ymuknxOo QuCAGvEVp6FJb3VXLfjFnqCgJr ROF9OaJ5BXT4nFPwfS3ojBof oywcaQ7wOxv+JGZxKjLwQHi7SW wvdGQ+WSQmBMC3mKndIKmwSUYz kT2gEIItH3v7VhNvXmD3DYhy I9WhHMIfmlipIy40uO6mJgNnHt Z7YOoaA4DocrN4DURzvZJfCGfd MJH6Z24fl8E4ZKWtUYDiEYZ3 gHB9iU0ofPtkaibdaNZitLfmfb DnvRzkPPjzFVteN515YQDqqIoq KaW7MEfpQQVrMS78VS31dBDu b2Q2bMO2P9KzKKXrebthnyrbcD Z9BOHwIGLpsX30wBAcKHqmHq4f n3F6m423DCPnDSWphB75Aq9c fNxrQMFauYTOrN1pvcebd8enex asUzCtKFAaSEc3GHx4XIHjaXdj VhXmADN7RuI5IZY9gDKegX5e uTrsjrpbnB3lIkw+RmVtYWxlPC 95PK62uVLzm1H8rGD7J2SdBHCv khubavejqOM6JXLvTBKzhP25 vNTqEAqpRr2go0H8w112XJPsJK YryE65Cd0oxDvuOYWlaEPVaW0k bylci0sonrhyBpTtELRwKXj4 TJs9ISHkaFvvLlBuFHQ5UbR4KU J0dHDqeA5vhTybcnyjsA7hQyy+ K7E3kAQ6eRGwpPfrpLI+PC90 rq53J6VgRrycXly3MBCvMUV1xU R1oU5dDJYiDCtnc2M5wEI5Y3Dx icUels4he4pzKXAkEXsrU39h yTIul1N9YNVrpNJ7NBMptZlyRb JovG15Cnj+MGDkqEhpc3VdQgdy q5ccx3fofPt7AlDtDBKeluJh rConQNH3k6QhGm96R35bZAucBF McSNIdLNJdGIMirYerjh5ieP1o Ii8+SXPhlHW5lKM9pA2gVsNg XlF7YTrlY529YpMxlRGzBroum9 mku0viiRq6QlKoCCEpkbRouPlv ZBW9q5GxLq74S6HeqHgdf7Wh Wif7or48fARmn7S4jOP4H7SkBU MkvjbgrRGtuXvtYN6rNKRisrph IBNniP9nMFRkU0r8CzHiTrK9 OXqrT2PpewN7OZVauQHeYHRisU LDfD3vemnkh8fakmknXhQoUTUs UQh7UMm2AWDwvQrnUcRwSLB3 WsN6QXF0cFEqaR6haNybosylbI 9wOyc+CSm2h1zswAYrBA5rdLN2 PP14CX45hALmv5E7nLI4D7Jt MCKhrnnfpbqryVH1RRZtZESosH 08Dq9mpRuoQw7cAZUdLKT5QEGs xZIcA0SsvU2zXqVzNAXvNHQn P4YwtUJbPXqkZ984VZmpCyJ2KB RioqQvY6QhYAAnyZsdWgB1d7N1 Ln1LPS92AN10SN66qQSho8Q3 gEN3D1SgZKAfebaehmrubZS1YT DlAGJzvL66Ik8phKfgSj7iLPWh VZT7ENQzvPXbG7IaqS0hPeEo HTZjUVMfF9YlkQPeTYlnQ572WS dbAuA3IULpxyZoO7MdTUVuuBjk McD5m7K5Ug3DFb50VB70RB06 kEBoo8O5dFP4N5MuJFVjtqrpht yucGE2LQLeHYKxfO26Xv0rkPna Kz0bXIIzKRN3GZNgpOBzD0Ik cD2dXeWlVKYeGDNjM4QemXKnOT lbD168ODjeKzQ3WCLvrkDzH2Mb [id number] xso1Z6FgJovknHB+CQ25NGKkEB 40gCIskECgn2zmvTb3LvSeBHTz MNJ5mNdcHDbsr1KiHRGtH64e tIFog8V1 (more content not included)... Normal [facility] BUNon 07-18-2022 Urea nitrogen [Mass/Vol] 10 mg/dL Normal 5-21 [facility] Comment on above: Performed By: #### 2 726811, 6193480, 9835636, 6864686, 4361247, 68245856 ####[facility] [address] [place] [address] CBC w/Indiceson 07-18-2022 Erythrocyte distribution width (RBC) [Ratio] 16.6 % High 10.9-14.2 [facility] Comment on above: Performed By: #### 2 989501, 8978382, 9848219, 0250418, 3555172, 14822866 ####[facility] [address] [place] [address] Hematocrit (Bld) [Volume fraction] 29.8 % Low 34.0-46.0 [facility] Comment on above: Performed By: #### 2 026555, 8231046, 5068779, 8702587, 8701026, 00553516 ####[facility] [address] [place] [address] Hemoglobin (Bld) [Mass/Vol] 9.5 g/dL Low 12.0-16.0 [facility] Comment on above: Performed By: #### 2 433478, 0089236, 6069406, 3685534, 8247326, 98057259 ####[address] [place] [address] MCH (RBC) [Entitic mass] 26.1 pg Low 27.0-34.0 [facility] Comment on above: Performed By: #### 2 655854, 6674766, 3897858, 3676252, 7887552, 08165266 ####[address] [address] MCHC (RBC) [Mass/Vol] 31.9 g/dL Normal 31.4-36.0 [facility] Comment on above: Performed By: #### 2 270048, 2529771, 8126170, 0145596, 5131946, 02589100 ####[address] [address] MCV (RBC) [Entitic vol] 81.9 fL Normal 80.0-100.0 [facility] Comment on above: Performed By: #### 2 469076, 9905458, 6010435, 3799511, 0014826, 94390860 ####[address] [place] [address] Platelet mean volume (Bld) [Entitic vol] 7.1 fL Normal 6.4-10.8 [facility] Comment on above: Performed By: #### 2 271868, 5745991, 7984309, 7115290, 0110302, 57069032 ####[facility] [address] [place] [address] Platelets (Bld) [#/Vol] 249.0 E9/L Normal 150.0-500. 0 [facility] Comment on above: Performed By: #### 2 186499, 3964385, 6828401, 8978152, 6870557, 96450468 ####[facility] [address] [place] [address] RBC (Bld) [#/Vol] 3.6 E12/L Low 4.3-5.9 [facility] Comment on above: Performed By: #### 2 925879, 5340960, 4693037, 8613189, 9540291, 64905947 ####[facility] [address] [place] [address] WBC corrected for nucl RBC Auto (Bld) [#/Vol] 5.0 E9/L Normal 4.0-11.0 [facility] Comment on above: Performed By: #### 2 461710, 2078279, 9513748, 3287473, 7187577, 68409785 ####[facility] [address] [place] [address] CHEMISTRYOrdered By: SYSTEM SYSTEM on 07-18-2022 Anion gap [Moles/Vol] 9 mmol/L Normal 6 - 16 mEq/L [facility] Chloride [Moles/Vol] 101 mmol/L Normal 101 - 1 11 mmol/L [facility]isol CO2 [Moles/Vol] 30 mmol/L Normal 21 - 31 mmol/L [facility] Creatinine [Mass/Vol] 0.8 mg/dL Normal 0.5 - 1.3 mg/dL [facility] Remisol GFR/1.73 sq M.predicted among blacks MDRD (S/P/Bld) [Vol rate/Area] mL/min/1.73 m2 Normal >=59mL/min /1.73 m2 [facility] Chem S GFR/1.73 sq M.predicted among non-blacks MDRD (S/P/Bld) [Vol rate/Area] mL/min/1.73 m2 Normal >=59mL/min /1.73 m2 [facility] Chem S Glucose [Mass/Vol] 93 mg/dL Normal 55 - 199 mg/dL [facility] Remisol Potassium [Moles/Vol] 3.7 mmol/L Normal 3.5 - 5.3 mmol/L [facility] Remisol Sodium [Moles/Vol] 136 mmol/L Normal 135 - 145 mmol/L [facility] Remisol Urea nitrogen [Mass/Vol] 10 mg/dL Normal 5 - 21 mg/dL [facility] Remisol Consent for Treatmenton 06-26 Consent for Treatment [id number] Normal [facility] Creatinineon 07-18-2022 Creatinine [Mass/Vol] 0.8 mg/dL Normal 0.5-1.3 [facility] Comment on above: Performed By: #### 2 662107, 1812888, 6208166, 2725316, 9376977, 53229035 ####[facility] [address] [place] [address] Glucoseon 07-18-2022 Glucose [Mass/Vol] 93 mg/dL Normal 55-199 [facility] Comment on above: Performed By: #### 2 751086, 4919154, 7480836, 6629258, 5858549, 45824353 ####[facility] [address] [place] [address] HEMATOLOGYOrdered By: Helen Chowdhury on 07-18-2022 Erythrocyte distribution width (RBC) [Ratio] 16.6 % High 10.9 - 14.2 % [facility] HemeAutoSS Hematocrit (Bld) [Volume fraction] 29.8 % Low 34.0 - 46.0 % [facility] HemeAutoSS Hemoglobin (Bld) [Mass/Vol] 9.5 g/dL Low 12.0 - 16.0 gm/dL [facility] HemeAutoSS MCH (RBC) [Entitic mass] 26.1 pg Low 27.0 - 34.0 pg [facility] HemeAutoSS MCHC (RBC) [Mass/Vol] 31.9 g/dL Normal 31.4 - 36.0 gm/dL [facility] HemeAutoSS MCV (RBC) [Entitic vol] 81.9 fL Normal 80.0 - 100.0 fL [facility] HemeAutoSS Platelet mean volume (Bld) [Entitic vol] 7.1 fL Normal 6.4 - 10.8 fL [facility] HemeAutoSS Platelets (Bld) [#/Vol] 249.0 E9/L Normal 150.0 - 500.0 E9/L [facility] HemeAutoSS RBC (Bld) [#/Vol] 3.6 E12/L Low 4.3 - 5.9 E12/L [facility] HemeAutoSS WBC corrected for nucl RBC Auto (Bld) [#/Vol] 5.0 E9/L Normal 4.0 - 11.0 E9/L [facility] HemeAutoSS Lyteson 07-18-2022 Anion gap [Moles/Vol] 9 mmol/L Normal 6-16 [facility] Comment on above: Performed By: #### 2 429570, 6117069, 5572717, 3746003, 0295943, 02911165 ####[facility] [address] [place] [address] Chloride [Moles/Vol] 101 mmol/L Normal 101-111 [facility] Comment on above: Performed By: #### 2 141421, 5594335, 1260290, 5875029, 9688256, 62974552 ####[facility] [address] [place] [address] CO2 [Moles/Vol] 30 mmol/L Normal 21-31 [facility] Comment on above: Performed By: #### 2 401593, 9190519, 0894563, 3644008, 2362074, 78187699 ####[facility] [address] [place] [address] Potassium [Moles/Vol] 3.7 mmol/L Normal 3.5-5.3 [facility] Comment on above: Performed By: #### 2 923861, 3793066, 8573042, 4734339, 6329607, 57311559 ####[facility] [address] [place] [address] Sodium [Moles/Vol] 136 mmol/L Normal 135-145 [facility] Comment on above: Performed By: #### 2 435836, 7638041, 2301416, 7786243, 0620637, 18104044 ####[facility] [address] [place] [address] XR Chest 2 Viewson 3 XR Chest [...] mGy = na DAP = na Normal [facility] eGFRon 07-18-2022 GFR/1.73 sq M.predicted among blacks MDRD (S/P/Bld) [Vol rate/Area] mL/min/{1.73_m2} Normal >=59 [facility] Comment on above: Order Comment: Order added by Discern Expert. Result Comment: eGFR is race adjusted. AA=. Performed By: #### 2 036119, 7049865, 0946279, 1629950, 9416948, 96693005 ####[facility] [address] [place] [address] GFR/1.73 sq M.predicted among non-blacks MDRD (S/P/Bld) [Vol rate/Area] mL/min/{1.73_m2} Normal >=59 [facility] Comment on above: Order Comment: Order added by Discern Expert. 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 Kidney failure is indicated at less than 15 mL/min/1.73m2. Performed By: #### 2 229536, 2990469, 5361442, 0023558, 9761815, 39004145 ####[facility] [address] [place] [address] Telephone Encounteron 2022 Apron Cleaner Authentication Interface Message Text Patient called regarding a rash near her drain that is right by her breast. Gaudencio is triaging Ms. Victoria, Gaudencio has suggest for patient to go to Urgent care and or call her primary care doctor. Appt is Monday07/13/2022. Normal [facility] Telephone Encounteron 2022 Apron Cleaner Authentication Interface Message Text Situation: Pt called states she is unsure how to flush gall bladder tube since it was changed yesterday. Background: 07/05/22 Procedure: Cholecystogram with catheter exchange Assessment: See triage Recommendation: Contacted IR video production specialist, Dr Hollis advised for pt to contact [...] No Protocols used: Post-Op Incision Symptoms and Tcaijwuha-E-SX Normal [facility] Apron Cleaner Authentication Interface Message Text Broderickottoniel Gaudencio Patient: Gerry Victoria [phone] Ms. Victoria has an appt Simran on 07/13/2022 at 2:45 pm. Pt complaining about severe pain last night, when she moved, it was an ache. She did not tell me where the pain was coming from, when I asked her. She stated that today she feels better, but she was concerned about the pain she experienced last night 07/05/2022. Normal [facility] RF Biliary ducts Views W con [...] successful exchange of drainage catheter. MACRO: [facility] Study observation (narrative) [facility] Telephone Encounteron 2022 Apron Cleaner Authentication Interface Message Text Patient returned clinic call. Informed of message per notes below. Patient verbalized understanding and voiced no further questions. Normal [facility] Apron Cleaner Authentication Interface Message Text would like Ms. [...] the appt date and time. Normal [facility] Office Visit (Cardiology)on 06-30-2022 Follow-up visit [...] mg as directed otc Retrieve echo from [facility] Follow up in 3 months The provider reviewed the following test(s) and result(s) with the patient: ECG Chief Complaint GERRY VICTORIA is being seen for a consultation for atrial flutter and palpitations. F/u heart cath done in [facility]. History of Present Illness Patient is here for cardiovascular evaluation following recent hospitalization for what appeared to be acute cholecystitis. Records were retrieved and reviewed. Patient presented to [facility] with symptoms of abdominal pain and was diagnosed with what appeared to be gallbladder disease and peritonitis. She was transferred to [facility] where she underwent work-up. Apparently a gallbladder [...] adjusted and she was switched from her custodial atenolol to metoprolol and losartan. She reported [...] The patient to keep her appointment with [facility] surgery for upcoming procedure of cholecystectomy and gallbladder drainage removal 5. I advised the patient she can use some nzem-nyq-gwbvkjo Claritin to address her what appeared to [...] 1 CA (more content not included)... Normal AMGas Tobacco Screening.on 023 Adult depression screening assessment No [facility] Center[facility] Naturals DO Work Phone: Fall risk assessment a) No falls within the last year [facility] MantraN[facility] Medical CenterPura Naturals DO Work Phone: Tobacco use status [facility] b) No -[facility] k 600 DO Work Phone: Telephone Encounteron 2022 Apron Cleaner Authentication Interface Message Text Pt called c/o sx of poor leg circulation,and Gaudencio spoke to her to triage the patient. Normal [facility] Addendum Noteon 06-18-2022 Apron Cleaner Authentication Interface Message Text Addended by: NIKITA HEIN on: 06/18/2022 03:47 PM Modules accepted: Orders, Level of Service Normal [facility] Telephone Encounteron 2022 Apron Cleaner Authentication Interface Message Text Sophy transferred phone call to me, when the patient and I started talk I realized it was the patient I had Sophy working on since Dr. Hein seen her in clinic on [facility]. Sophy said she spoke to patient yesterday, so I just told her what Sophy told me that Dr. Hein will handle the Rx to have the scan done out where she lives and that Sophy will get it to her in the mail by Monday Normal [facility] Telephone Encounteron 2022 Apron Cleaner Authentication Interface Message Text Sindy Morales, Patient: Gerry Victoria [phone] Ms. Victoria had a visit with Dr. Conley on Monday06/15/2022, seen by Dr. Hein in yesterday's clinic. Questions: Ultrasound order was placed for Ms. Victoria, do she have to come her to [facility] to have the ultrasound, or can she have the ultrasound done in [place]? (there is not a [facility] in [place]) Medication refill of Ropinirole 2mg 1-tab QD was not received by her pharmacy, can you call in the prescription to my pharmacy at ([facility] ) [phone]?. I am waiting for Carmen, or and or Dr. Conlye to respond. Sophy Pt was told that Dr. Hein was out of town and that she will receive the prescription in the mail. I will call the patient to find out what hospitals she will be going to in [place] [phone] fax:[phone] Gaudencio spoke to her about the prescription and to contact her pharmacy about the ropinirole 2 mg to [facility]. Addendum: IR procedure, Gaudencio will follow-up with [facility] to see if they can do the IR procedure, we will submit or fax orders at that time. Normal [facility] CBC panel Auto (Bld)on 06-15 [...] (RBC) [Ratio] 15.0 % High 11.5-14.5 [facility] Comment on above: Performed By: #### 8 2948 #### NURSING GLUCOSE PROGRAM [address] [place], [address] Hematocrit (Bld) [Volume fraction] 26.4 % Low 36.0-46.0 [facility] Comment on above: Performed By: #### 8 2948 #### NURSING GLUCOSE PROGRAM [address] [place], [address] Hemoglobin (Bld) [Mass/Vol] 9.0 g/dL Low 12.0-15.0 [facility] Comment on above: Performed By: #### 8 2948 #### NURSING GLUCOSE PROGRAM [address] [place], [address] MCH (RBC) [Entitic mass] 27.6 pg Normal 26.0-34.0 [facility] Comment on above: Performed By: #### 8 2948 #### NURSING GLUCOSE PROGRAM [address] [place], [address] MCHC (RBC) [Mass/Vol] 34.1 g/dL Normal 32.0-35.9 [facility] Comment on above: Performed By: #### 8 2948 #### NURSING GLUCOSE PROGRAM [address] [place], [address] MCV (RBC) [Entitic vol] 81 fL Normal 80-100 [facility] Comment on above: Performed By: #### 8 2948 #### NURSING GLUCOSE PROGRAM [address] [place], [address] Platelet mean volume (Bld) [Entitic vol] 7.8 fL Normal 7.5-11.2 [facility] Comment on above: Performed By: #### 8 2948 #### NURSING GLUCOSE PROGRAM [address] [place], [address] Platelets (Bld) [#/Vol] 262 10*3/uL Normal 150-400 [facility] Comment on above: Performed By: #### 8 2948 #### NURSING GLUCOSE PROGRAM [address] [place], [address] RBC (Bld) [#/Vol] 3.26 10*6/uL Low 4.00-5.20 [facility] Comment on above: Performed By: #### 8 2948 #### NURSING GLUCOSE PROGRAM [address] [place], [address] WBC (Bld) [#/Vol] 6.2 10*3/uL Normal 4.5-11.5 [facility] Comment on above: Performed By: #### 8 2948 #### NURSING GLUCOSE PROGRAM [address] [place], [address] PROTHROMBIN TIME AND INRon 0 - INR Coag (PPP) [Relative time] 1.08 {INR} Normal 0.90-1.10 [facility] Comment on above: Performed By: #### 8 2948 #### NURSING GLUCOSE PROGRAM [address] [place], [address] PT Coag (PPP) [Time] 12.2 s Normal 9.7-12.9 [facility] Comment on above: Performed By: #### 8 2948 #### NURSING GLUCOSE PROGRAM [address], [address] INR Coag (PPP) [Relative time] 1.08 {INR} 0.90 - 1.10 [facility] Interpretation and review of laboratory results Normal [facility] PT Coag (PPP) [Time] 12.2 s [facility] Telephone Encounteron 2022 Apron Cleaner Authentication Interface Message Text Situation: pt is [...] Not assessed Protocols used: Post-Op Symptoms and Lmcdxbvtk-Z-JG, Breathing Ssfcbumuxg-F-NQ Normal [facility] BASIC METABOLIC PANELon 03-0 Anion gap [Moles/Vol] 15 mmol/L Normal 10-20 [facility] Comment on above: Performed By: #### C H8, HEPATIC #### [facility] [address] [place] [address], Calcium [Mass/Vol] 8.4 mg/dL Normal 8.4-10.4 [facility] Comment on above: Performed By: #### C H8, HEPATIC #### [facility] [address] [place] [address], Chloride [Moles/Vol] 100 mmol/L Normal 97-111 [facility] Comment on above: Performed By: #### C H8, HEPATIC #### [facility] [address] [place] [address], CO2 [Moles/Vol] 27 mmol/L Normal 21-30 [facility] Comment on above: Performed By: #### C H8, HEPATIC #### [facility] [address] [place] [address], Creatinine [Mass/Vol] 0.76 mg/dL Normal 0.50-1.10 [facility] Comment on above: Performed By: #### C H8, HEPATIC #### [facility] [address] [place] [address], ESTIMATED GFR (CKD-EPI) 85 mL/min/1.73sqm Normal >=60 [...] Inclusion of Race in Diagnosing Kidney Disease. Czech Journal of Kidney Diseases 2021;79(2):268-88.e1. 2. N Engl J Med 2020 Vol. 385 Issue 19 Pages 7293-2050 Performed By: #### C H8, HEPATIC #### [facility] [address] [place] [address], Glucose [Mass/Vol] 94 mg/dL Normal 80-116 [facility] Comment on above: Performed By: #### C H8, HEPATIC #### [facility] [address] [place] [address], Potassium [Moles/Vol] 3.5 mmol/L Normal 3.3-5.3 [facility] Comment on above: Performed By: #### C H8, HEPATIC #### [facility] [address] [place] [address], Sodium [Moles/Vol] 138 mmol/L Normal 135-148 [facility] Comment on above: Performed By: #### C H8, HEPATIC #### [facility] [address] [place] [address], Urea nitrogen [Mass/Vol] 6 mg/dL Low 8-22 [facility] Comment on above: Performed By: #### C H8, HEPATIC #### [facility] [address] [place] [address], COMPLETE BLOOD COUNTon 05-25 Erythrocyte distribution width (RBC) [Ratio] 15.2 % High 11.5-14.5 [facility] Comment on above: Performed By: #### Meenu Mccormick, HEPATIC #### [facility] [address] [place] [address], Hematocrit (Bld) [Volume fraction] 34.5 % Low 36.0-46.0 [facility] Comment on above: Performed By: #### Meenu Mccormick, HEPATIC #### [facility] [address] [place] [address], Hemoglobin (Bld) [Mass/Vol] 12.0 g/dL Normal 12.0-15.0 [facility] Comment on above: Performed By: #### Meenu Mccormick, HEPATIC #### [facility] [address] [place] [address], MCH (RBC) [Entitic mass] 28.6 pg Normal 26.0-34.0 [facility] Comment on above: Performed By: #### Meenu Mccormick, HEPATIC #### [facility] [address] [place] [address], MCHC (RBC) [Mass/Vol] 34.8 g/dL Normal 32.0-35.9 [facility] Comment on above: Performed By: #### Meenu Mccormick, HEPATIC #### [facility] [address] [place] [address], MCV (RBC) [Entitic vol] 82 fL Normal 80-100 [facility] Comment on above: Performed By: #### Meenu Mccormick, HEPATIC #### [facility] [address] [place] [address], Platelet mean volume (Bld) [Entitic vol] 7.7 fL Normal 7.5-11.2 [facility] Comment on above: Performed By: #### Meenu Mccormick, HEPATIC #### S [facility] [address] [place] [address], Platelets (Bld) [#/Vol] 348 10*3/uL Normal 150-400 [facility] Comment on above: Performed By: #### Meenu Mccormick, HEPATIC #### [facility] [address] [place], [place], RBC (Bld) [#/Vol] 4.19 10*6/uL Normal 4.00-5.20 [facility] Comment on above: Performed By: #### C H8, HEPATIC #### [facility] [address] [place], [place], WBC (Bld) [#/Vol] 8.7 10*3/uL Normal 4.5-11.5 [facility] Comment on above: Performed By: #### C H8, HEPATIC #### [facility] [address] [place], [place], Care Plan Noteon 05-25-2022 Apron Cleaner Authentication Interface Message Text Problem: Routine Care: [...] H8, HEPATIC #### [facility] [address] [place], [place], Glucose [Mass/Vol] 92 mg/dL Normal 80-116 [facility] Comment on above: Performed By: #### 8 2948 #### NURSING GLUCOSE PROGRAM [address] [place], [address] Glucose [Mass/Vol] 93 mg/dL Normal 80-116 [facility] Comment on above: Performed By: #### C H8, HEPATIC #### [facility] [address] [place], [place], MAGNESIUMon 05-25-2022 Magnesium [Mass/Vol] 2.0 mg/dL Normal 1.6-2.8 [facility] Comment on above: Performed By: #### C H8, HEPATIC #### [facility] [address] [place], [place], Progress Noteson 05-25-2022 Apron Cleaner Authentication Interface Message Text Pt is rec to dc home with no homegoing needs. Pt reportedly has sister who can provide PRN assistance. Medical team to please notify SW if any SW or DC concerns arise. Franky CHOWDHURYA,COPIER TECHNICIAN Normal [facility] Apron Cleaner Authentication Interface Message Text Accuchecks not uploading into Snaptee- are as follows 2000- glucose 94 0000- glucose 93 0400- glucose 93 Normal [facility] Apron Cleaner Authentication Interface Message Text Pt emptied and flushed drain with RN supervision. No further questions at this time, will; reinforce in the AM. 0630 Pt flushed and emptied drain w/ RN supervision. No further questions at this time, written instructions for both provided to pt. Normal [facility] BASIC METABOLIC PANELon - Anion gap [Moles/Vol] 18 mmol/L Normal 10-20 [facility] Comment on above: Performed By: #### H STRP #### [facility] [address] [place], [place], Calcium [Mass/Vol] 8.6 mg/dL Normal 8.4-10.4 [facility] Comment on above: Performed By: #### H STRP #### [facility] [address] [place], [place], Chloride [Moles/Vol] 100 mmol/L Normal 97-111 [facility] Comment on above: Performed By: #### H STRP #### [facility] [address] [place], [place], CO2 [Moles/Vol] 24 mmol/L Normal 21-30 [facility] Comment on above: Performed By: #### H STRP #### S [facility] LABORATORY [address] [place] [address], Creatinine [Mass/Vol] 0.66 mg/dL Normal 0.50-1.10 [facility] Comment on above: Performed By: #### H STRP #### S [facility] LAB[facility]AT[facility] [address] [place] [address], ESTIMATED GFR (CKD-EPI) 95 mL/min/1.73sqm Normal >=60 [...] Inclusion of Race in Diagnosing Kidney Disease. [place] Journal of Kidney Diseases 2021;79(2):268-88.e1. 2. N Engl J Med 1 Vol. 385 Issue 19 Pages 2846-4877 Performed By: #### H STRP #### S [facility] [address] [place] [address], Glucose [Mass/Vol] 88 mg/dL Normal 80-116 [facility] Comment on above: Performed By: #### H STRP #### S [facility] [address] [place] [address], Potassium [Moles/Vol] 3.5 mmol/L Normal 3.3-5.3 [facility] Comment on above: Performed By: #### H STRP #### [facility] [address] [place] [address], Sodium [Moles/Vol] 138 mmol/L Normal 135-148 [facility] Comment on above: Performed By: #### H STRP #### S PATHOLOGY LABORATORY [address] [place] [address], Urea nitrogen [Mass/Vol] 5 mg/dL Low 8-22 [facility] Comment on above: Performed By: #### H STRP #### [facility] PATHOLOG[facility] LABORATORY [address] [place] [address], COMPLETE BLOOD COUNTon 05-24 Erythrocyte distribution width (RBC) [Ratio] 15.1 % High 11.5-14.5 [facility] Comment on above: Performed By: #### C BC ####[facility] PATHOLOGY [id number] [place], [place], Hematocrit (Bld) [Volume fraction] 35.5 % Low 36.0-46.0 [facility] Comment on above: Performed By: #### C BC ####[facility] PATHOLOGY [id number] [place] [address], Hemoglobin (Bld) [Mass/Vol] 11.8 g/dL Low 12.0-15.0 [facility] Comment on above: Performed By: #### C BC ####[facility] PATHOLOGY [id number] [place] [address], MCH (RBC) [Entitic mass] 27.2 pg Normal 26.0-34.0 [facility] Comment on above: Performed By: #### C BC ####[facility] PATHOLOGY [id number] [place] [address], MCHC (RBC) [Mass/Vol] 33.2 g/dL Normal 32.0-35.9 [facility] Comment on above: Performed By: #### C BC ####[facility] PATHOLOGY [id number] [place], [place], MCV (RBC) [Entitic vol] 82 fL Normal 80-100 [facility] Comment on above: Performed By: #### C BC ####[facility] PATHOLOGY [id number] [place] [address], Platelet mean volume (Bld) [Entitic vol] 7.6 fL Normal 7.5-11.2 [facility] Comment on above: Performed By: #### C BC ####[facility] PATHOLOGY [id number] [place] [address], Platelets (Bld) [#/Vol] 375 10*3/uL Normal 150-400 [facility] Comment on above: Performed By: #### C BC ####S PATHOLOGY [id number] [place], [place], RBC (Bld) [#/Vol] 4.32 10*6/uL Normal 4.00-5.20 [facility] Comment on above: Performed By: #### C BC ####[facility] [id number] [place], WBC (Bld) [#/Vol] 9.0 10*3/uL Normal 4.5-11.5 [facility] Comment on above: Performed By: #### C BC ####S PATHOLOGY [id number] [place], [place], Care Plan Noteon 05-24-2022 Apron Cleaner Authentication Interface Message Text Problem: Routine Care: [...] demand and imbalance Outcome: Progressing Normal [facility] GLUCOSE, FINGERSTICK-IN OFFI CEon 05-24-2022 Glucose [Mass/Vol] 94 mg/dL Normal 80-116 [facility] Comment on above: Performed By: #### 8 2948 ####NURSING GLUCOSE [id number] [place], [address] Glucose [Mass/Vol] 76 mg/dL Low 80-116 [facility] Comment on above: Performed By: #### H STRP #### [facility] [address] [place], [place], Glucose [Mass/Vol] 84 mg/dL Normal 80-116 [facility] Comment on above: Performed By: #### 8 2948 #### NURSING GLUCOSE PROGRAM [address] [place], [address] Glucose [Mass/Vol] 95 mg/dL Normal 80-116 [facility] Comment on above: Performed By: #### C H8, HEPATIC #### [facility] [address] [place], [place], Glucose [Mass/Vol] 93 mg/dL Normal 80-116 [facility] Comment on above: Performed By: #### C H8, HEPATIC #### [facility] [address] [place], [place], Glucose [Mass/Vol] 97 mg/dL Normal 80-116 [facility] Comment on above: Performed By: #### H STRP #### [facility] [address] [place], [place], MAGNESIUMon 05-24-2022 Magnesium [Mass/Vol] 1.9 mg/dL Normal 1.6-2.8 [facility] Comment on above: Performed By: #### H STRP #### [facility] [address] [place], [place], Progress Noteson 05-24-2022 Apron Cleaner Authentication Interface Message Text [facility] DIVISION OF ACUTE CARE SURGERY ---- GENERAL INFORMATION --- EMERGENCY GENERAL SURGERY NOTE Patient Name: Gerry Victoria Admission Date: 05/16/2022 Patient seen and examined on 05/24/2022 -- INTERVAL HISTORY/EVENTS Background Narrative: Gerry Victoria is a 66 year old female with PMH of hypertension, RLS, GERD, and h/o paroxysmal SVT who presented to [facility] with epigastric pain with nausea and vomiting. Patient describes onset of pain on prior day that has increased since then. Shortly after onset of pain, patient experienced nausea and persistent vomiting, now unable to tolerate PO intake. Denies fevers, chills. She presented to [facility] where EKG demonstrated 'hyperacute T waves' in multiple leads without evidence of STEMI. Troponin originally 139, then 381 on repeat. CTA was performed and did not reveal dissection or PE. CT did demonstrate acute inflammation of the gallbladder with a stone at the neck. A central line was placed for resuscitation purposes and the patient was transferred to [facility] for further evaluation. Prior to transfer, lab work without leukocytosis (10.7) and LFTs/Lipase without abnormality. ACS consulted upon arrival to [facility] for cholecystitis. She was admitted to the SDU for telemetry under EGS but transferred to [facility] on 05/20/22 Hospital Course/Procedures: 05/16/2022: Transferred from [facility] ED with cholecystitis, up-trending troponin, and unclear EKG findings. Up-trending leukocytosis, down-trending troponin by PM. Cardiology following. Zosyn started. 05/17/2022: rCT with worsening gallbladder inflammation /o free air or rupture. Percutaneous cholecystotomy tube placement with IR. 05/19/2022: Bilious emesis, NGT placed 05/20/2022: Transferred to [facility] 05/21/2022:To stop zosyn today day 06/2805/22/2022: YANN, ongoing bilious NGT output 05/23/2022: [facility] with mild non-obstructive diffuse coronary artery disease. NGT placed to gravity. Events in last 24 hours: NAEOn. [facility] completed yesterday with mild non-obstructive diffuse [...] Cr Ca Mg PO4 05/24/22 0036 1.9 05/24/2235 138 3.5 100 24 18 88 5 0.66 8.6 Arterial Blood Gases None IMAGING RESULTS - (PERSONALLY REVIEWED) No new imaging over last 24 hours ----- DIAGNOSIS AND PLAN -------- Diagnoses: Acute Cholecystitis Acute abdominal pain Type II RI Atypical takatsubo PMHx: GERD, HTN, HLD, spinal [...] course of IV Zosyn 05/16/22 - 05/21/2022. [facility] completed 05/23 showing no obstructive disease. Plan 1. Neurologic - Tylenol q4 PRN, oxycodone q4 PRN f (more content not included)... Normal [facility] Apron Cleaner Authentication Interface Message Text Accuchecks not uploading into [employer]- are as follows for width stripper 05/23 1900- 0730: 2000- glucose 95 0000- glucose 97 0400- glucose 93 Normal [facility] BASIC METABOLIC PANELon 04-28 Anion gap [Moles/Vol] 12 mmol/L Normal 10-20 [facility] Comment on above: Performed By: #### H STRP #### [facility] [address] [place] [address], Calcium [Mass/Vol] 8.4 mg/dL Normal 8.4-10.4 [facility] Comment on above: Performed By: #### H STRP #### [facility] [address] [place] [address], Chloride [Moles/Vol] 100 mmol/L Normal 97-111 [facility] Comment on above: Performed By: #### H STRP #### [facility] [address] [place] [address], CO2 [Moles/Vol] 31 mmol/L High 21-30 [facility] Comment on above: Performed By: #### H STRP #### [facility] [address] [place], [place], Creatinine [Mass/Vol] 0.65 mg/dL Normal 0.50-1.10 [facility] Comment on above: Performed By: #### H STRP #### S PATHOLOGY LABORATORY [address] [place] [address], ESTIMATED GFR (CKD-EPI) 96 mL/min/1.73sqm Normal >=60 [facility] Comment on above: Result Comment: 2020 [...] Inclusion of Race in Diagnosing Kidney Disease. [place] Journal of Kidney Diseases 2021;79(2):268-88.e1. 2. N Engl J Med 2020 Vol. 385 Issue 19 Pages 7300-6836 Performed By: #### H STRP #### [facility] [address] [place], [place], Glucose [Mass/Vol] 92 mg/dL Normal 80-116 [facility] Comment on above: Performed By: #### H STRP #### [facility] [address] [place], [place], Potassium [Moles/Vol] 3.5 mmol/L Normal 3.3-5.3 [facility] Comment on above: Performed By: #### H STRP #### S PATHOLOGY LABORATORY [address] [place], [place], Sodium [Moles/Vol] 139 mmol/L Normal 135-148 [facility] Comment on above: Performed By: #### H STRP #### [facility] PATHOLOG[facility] LABORATORY [address] [place], [place], Urea nitrogen [Mass/Vol] 4 mg/dL Low 8-22 [facility] Comment on above: Performed By: #### H STRP #### S PATHOLOGY LABORATORY [address] [place], [place], COMPLETE BLOOD COUNTon 05-23 Erythrocyte distribution width (RBC) [Ratio] 14.9 % High 11.5-14.5 The [facility] Comment on above: Performed By: #### C BC ####[facility] PATHOLOGY [id number] [place], [place], Hematocrit (Bld) [Volume fraction] 33.2 % Low 36.0-46.0 [facility] Comment on above: Performed By: #### C BC ####[facility] PATHOLOGY [id number] [place], Hemoglobin (Bld) [Mass/Vol] 11.1 g/dL Low 12.0-15.0 The [facility] Comment on above: Performed By: #### C BC ####[facility] PATHOLOGY [id number] [place], MCH (RBC) [Entitic mass] 27.4 pg Normal 26.0-34.0 [facility] Comment on above: Performed By: #### C BC ####[facility] PATHOLOGY [id number] [place], MCHC (RBC) [Mass/Vol] 33.4 g/dL Normal 32.0-35.9 The [facility] Comment on above: Performed By: #### C BC ####[facility] PATHOLOGY [id number] [place], MCV (RBC) [Entitic vol] 82 fL Normal 80-100 [facility] Comment on above: Performed By: #### C BC ####S PATHOLOGY [id number] [place], Platelet mean volume (Bld) [Entitic vol] 7.4 fL Low 7.5-11.2 [facility] Comment on above: Performed By: #### C BC ####[facility] [id number] [place], Platelets (Bld) [#/Vol] 313 10*3/uL Normal 150-400 [facility] Comment on above: Performed By: #### C BC ####S PATHOLOGY [id number] [place], RBC (Bld) [#/Vol] 4.04 10*6/uL Normal 4.00-5.20 [facility] Comment on above: Performed By: #### C BC ####S PATHOLOGY [id number] [place], WBC (Bld) [#/Vol] 7.1 10*3/uL Normal 4.5-11.5 [facility] Comment on above: Performed By: #### C BC ####[facility] PATHOLOGY [id number] [place], [place], Care Plan Noteon 05-23-2022 Apron Cleaner Authentication Interface Message Text Problem: Routine Care: [...] demand and imbalance Outcome: Progressing Normal [facility] Consultson 05-23-2022 Apron Cleaner Authentication Interface Message Text PHYSICAL THERAPY Attempt at Tx Session this PM is unsuccessful as Patient is off floor in EP for Coronary angiograms w/ poss intervention Will follow up Tawny Peñaloza, PT, MPT (B) [phone] Normal [facility] Apron Cleaner Authentication Interface Message Text Initial Adult Inpatient [...] none Hair/Nails/Skin: intact Eyes/Nose/Mouth: NGT Estimated needs: [id number] kcal/d 25-30 kcal/kg 80-105 g pro/d 1-1.3 g pro/kg Assessment: 66 year old female with PMH of hypertension, RLS, GERD, and h/o paroxysmal SVT who presented to [facility] with epigastric pain with nausea and vomiting. Patient describes onset of pain on prior day that has increased since then. Shortly after onset of pain, patient experienced nausea and persistent vomiting, now unable to tolerate PO intake. Denies fevers, chills. She presented to [facility] where EKG demonstrated 'hyperacute T waves' in multiple leads without evidence of STEMI. Troponin originally 139, then 381 on repeat. CTA was performed and did not reveal dissection or PE. CT did demonstrate acute inflammation of the gallbladder with a stone at the neck. A central line was placed for resuscitation purposes and the patient was transferred to [facility] for further evaluation. Prior to transfer, lab work without leukocytosis (10.7) and LFTs/Lipase without abnormality. ACS consulted upon arrival to [facility] for cholecystitis. She was admitted to the SDU for telemetry under EGS but transferred to [facility] on 05/20/22 Hospital Course/Procedures: 05/16/2022: Transferred from [facility] ED with cholecystitis, up-trending troponin, and unclear EKG findings. Up-trending leukocytosis, down-trending troponin by PM. Cardiology following. Zosyn started. 05/17/2022: rCT with worsening gallbladder inflammation /o free air or rupture. Percutaneous cholecystotomy tube placement with IR. 05/19/2022: Bilious emesis, NGT placed 05/20/2022: Transferred to [facility] 05/21/2022:To stop zosyn today day 06/28 [...] follow Luis Roberts RD, LD Personal Pager [phone] Medical Transcription Editor Pager: [phone] Normal [facility] Apron Cleaner Authentication Interface Message Text Diet Concrete Float Maker Nutrition Screening Reason for visit: 7 [...] Will continue to follow, May Sanchez Diet Concrete Float Maker Pager [phone] Normal [facility] GLUCOSE, FINGERSTICK-IN OFFI CEon 05-23-2022 Glucose [Mass/Vol] 95 mg/dL Normal 80-116 [facility] Comment on above: Performed By: #### H STRP #### [facility] [address] [place] [address], [phone] Glucose [Mass/Vol] 102 mg/dL Normal 80-116 [facility] Comment on above: Performed By: #### C H8, HEPATIC #### [facility] [address] [place], [place], Glucose [Mass/Vol] 105 mg/dL Normal 80-116 [facility] Comment on above: Performed By: #### 8 2948 #### NURSING GLUCOSE PROGRAM [address] [place], [address] Glucose [Mass/Vol] 89 mg/dL Normal 80-116 [facility] Comment on above: Performed By: #### H STRP #### [facility] [address] [place], [place], Glucose [Mass/Vol] 92 mg/dL Normal 80-116 [facility] Comment on above: Performed By: #### 8 2948 #### NURSING GLUCOSE PROGRAM [address] [place], [place], MAGNESIUMon 05-23-2022 Magnesium [Mass/Vol] 1.9 mg/dL Normal 1.6-2.8 [facility] Comment on above: Performed By: #### H STRP #### [facility] [address] [place], [place], Procedureson 05-23-2022 Apron Cleaner Authentication Interface Message Text Invasive Cardiology Report Demographics Patient name RYLIE GARRETT Height 155cm Patient # [id number] Weight 79.8kg BSA 1.79m2 Date of 1955 [...] KIT CARDIAC CATH PACK CA/3, Room Charge LACING CUTTER, Merit InQwire .035 x 150cm 3mmJ, Glidesheath Slender 6Fr., 6F Popejoy Radial 4.0 110cm, Omnipaque 350 100cc and TR Band. Contrast material: 50 ml Omnipaque 350. Fluoroscopy time: PCI: 2:06 minutes. Total: 2:06 minutes. IABP: No IABP Procedure Description In a sterile fashion, after infiltration with 2% lidocaine, a 6 Belgian arterial sheath was placed through a right radial artery puncture. A 6 Belgian Popejoy 4.0 radial catheter was inserted and passed retrograde into the ascending aorta and left ventricle where pressures were recorded. After pressure measurements were recorded, the left and right coronary arteries were selectively opacified and Coronary angiograms were performed in multiple projections using a 6 Belgian Popejoy 4.0 radial catheter. At the end of the procedure, right radial arterial sheath was removed and hemostasis was obtained using a TR band. Moderate sedation provided by the attending physician performing the procedure. The moderate sedation intraservice time was 12 minutes. Normal [facility] Progress Noteson 05-23-2022 Apron Cleaner Authentication Interface Message Text [facility] showed no obstructive coronary artery disease. Medical management with aspirin 81 mg daily, losartan 25 mg daily and metoprolol XL 12.5 mg with dose adjustment as tolerated. She will need outpatient follow up with cardiology Cards team signing off. Please feel free to contact in case of any qs. Normal [facility] Apron Cleaner Authentication Interface Message Text PT recs anticipate pt to be appropriate for home-going. Pt reportedly has sister who can provide PRN assistance. Medical team to please notify SW if any SW or DC concerns arise. Franky BATEMAN,COPIER TECHNICIAN Normal The [employer] Interface Message Text [facility] DIVISION OF ACUTE CARE SURGERY ---- GENERAL INFORMATION --- EMERGENCY GENERAL SURGERY NOTE Patient Name: Gerry Victoria Admission Date: 05/16/2022 Patient seen and examined on 05/23/2022 -- INTERVAL HISTORY/EVENTS Background Narrative: Gerry Victoria is a 66 year old female with PMH of hypertension, RLS, GERD, and h/o paroxysmal SVT who presented to [facility] with epigastric pain with nausea and vomiting. Patient describes onset of pain on prior day that has increased since then. Shortly after onset of pain, patient experienced nausea and persistent vomiting, now unable to tolerate PO intake. Denies fevers, chills. She presented to [facility] where EKG demonstrated 'hyperacute T waves' in multiple leads without evidence of STEMI. Troponin originally 139, then 381 on repeat. CTA was performed and did not reveal dissection or PE. CT did demonstrate acute inflammation of the gallbladder with a stone at the neck. A central line was placed for resuscitation purposes and the patient was transferred to [facility] for further evaluation. Prior to transfer, lab work without leukocytosis (10.7) and LFTs/Lipase without abnormality. ACS consulted upon arrival to [facility] for cholecystitis. She was admitted to the SDU for telemetry under EGS but transferred to [facility] on 05/20/22 Hospital Course/Procedures: 05/16/2022: Transferred from [facility] ED with cholecystitis, up-trending troponin, and unclear EKG findings. Up-trending leukocytosis, down-trending troponin by PM. Cardiology following. Zosyn started. 05/17/2022: rCT with worsening gallbladder inflammation /o free air or rupture. Percutaneous cholecystotomy tube placement with IR. 05/19/2022: Bilious emesis, NGT placed 05/20/2022: Transferred to [facility] 05/21/2022:To stop zosyn today day 4/4 [...] Seen resting in bed in SICU in [facility]- I J line in place [...] Acute Cholecystitis Acute abdominal pain Type II RI Atypical takatsubo PMHx: GERD, HTN, HLD, spinal [...] #### H STRP #### [facility] [address] [place] [address], ABSC INT Negative Normal [facility] Comment on above: Performed By: #### H STRP #### [facility] [address] [place] [address], BASIC METABOLIC PANELon 04-28 Anion gap [Moles/Vol] 13 mmol/L Normal 10-20 [facility] Comment on above: Performed By: #### 8 2948 #### NURSING GLUCOSE PROGRAM [address] [place] [address], [address] Calcium [Mass/Vol] 8.7 mg/dL Normal 8.4-10.4 [facility] Comment on above: Performed By: #### 8 2948 #### NURSING GLUCOSE PROGRAM [address] [place] [address], [address] Chloride [Moles/Vol] 98 mmol/L Normal 97-111 [facility] Comment on above: Performed By: #### 8 2948 #### NURSING GLUCOSE PROGRAM [address] [place] [address], [address] CO2 [Moles/Vol] 31 mmol/L High 21-30 [facility] Comment on above: Performed By: #### 8 2948 #### NURSING GLUCOSE PROGRAM [address] [place] [address], [address] Creatinine [Mass/Vol] 0.76 mg/dL Normal 0.50-1.10 [facility] Comment on above: Performed By: #### 8 2948 #### NURSING GLUCOSE PROGRAM [address] [place] [address], [address] ESTIMATED GFR (CKD-EPI) 85 mL/min/1.73sqm Normal >=60 [facility] Comment on above: Result Comment: [...] Inclusion of Race in Diagnosing Kidney Disease. [place] Journal of Kidney Diseases 202;79(2):268-88.e1. 2. N Engl J Med 1 Vol. 385 Issue 19 Pages 8861-9591 Performed By: #### 8 2948 #### NURSING GLUCOSE PROGRAM [address] [place], [address] Glucose [Mass/Vol] 91 mg/dL Normal 80-116 [facility] Comment on above: Performed By: #### 8 2948 #### NURSING GLUCOSE PROGRAM [address] [place], [address] Potassium [Moles/Vol] 3.6 mmol/L Normal 3.3-5.3 [facility] Comment on above: Performed By: #### 8 2948 #### NURSING GLUCOSE PROGRAM [address] [place], [address] Sodium [Moles/Vol] 138 mmol/L Normal 135-148 [facility] Comment on above: Performed By: #### 8 2948 #### NURSING GLUCOSE PROGRAM [address] [place], [address] Urea nitrogen [Mass/Vol] 5 mg/dL Low 8-22 [facility] Comment on above: Performed By: #### 8 2948 #### NURSING GLUCOSE PROGRAM [address] [place], [address] COMPLETE BLOOD COUNTon 05-22 Erythrocyte distribution width (RBC) [Ratio] 15.1 % High 11.5-14.5 [facility] Comment on above: Performed By: #### C BC ####[facility] PATH[facility] [id number] [place], [address] Hematocrit (Bld) [Volume fraction] 34.3 % Low 36.0-46.0 [facility] Comment on above: Performed By: #### C BC ####[facility] PATHOLOGY [id number] [place], Hemoglobin (Bld) [Mass/Vol] 11.4 g/dL Low 12.0-15.0 [facility] Comment on above: Performed By: #### C BC ####[facility] PATHOLOGY [id number] [place], MCH (RBC) [Entitic mass] 27.4 pg Normal 26.0-34.0 [facility] Comment on above: Performed By: #### C BC ####[facility] PATHOLOGY [id number] [place], MCHC (RBC) [Mass/Vol] 33.4 g/dL Normal 32.0-35.9 [facility] Comment on above: Performed By: #### C BC ####[facility] PATHOLOGY [id number] [place] [address], MCV (RBC) [Entitic vol] 82 fL Normal 80-100 [facility] Comment on above: Performed By: #### C BC ####[facility] PATHOLOGY [id number] [place], Platelet mean volume (Bld) [Entitic vol] 7.6 fL Normal 7.5-11.2 [facility] Comment on above: Performed By: #### C BC ####[facility] PATHOLOGY [id number] [place], Platelets (Bld) [#/Vol] 322 10*3/uL Normal 150-400 [facility] Comment on above: Performed By: #### C BC ####[facility] PATHOLOGY [id number] [place], RBC (Bld) [#/Vol] 4.17 10*6/uL Normal 4.00-5.20 [facility] Comment on above: Performed By: #### C BC ####[facility] PATHOLOGY [id number] [place], WBC (Bld) [#/Vol] 7.0 10*3/uL Normal 4.5-11.5 [facility] Comment on above: Performed By: #### C BC ####[facility] [id number] [place], [address] Care Plan Noteon 05-22-2022 Apron Cleaner Authentication Interface Message Text Problem: Routine Care: [...] demand and imbalance Outcome: Progressing Normal [facility] GLUCOSE, FINGERSTICK-IN OFFI CEon 05-22-2022 Glucose [Mass/Vol] 78 mg/dL Low 80-116 [facility] Comment on above: Performed By: #### 8 2948 #### NURSING GLUCOSE PROGRAM [address] [place], [address] Glucose [Mass/Vol] 99 mg/dL Normal 80-116 [facility] Comment on above: Performed By: #### 8 2948 #### NURSING GLUCOSE PROGRAM [address] [place], [address] Glucose [Mass/Vol] 134 mg/dL High 80-116 [facility] Comment on above: Performed By: #### 8 5807 #### NURSING GLUCOSE PROGRAM [address] [place], [address] Glucose [Mass/Vol] 111 mg/dL Normal 80-116 [facility] Comment on above: Performed By: #### Reid Grullon CH8 #### [facility] [address], [place], Glucose [Mass/Vol] 103 mg/dL Normal 80-116 [facility] Comment on above: Performed By: #### Meenu H8, HEPATIC #### [facility] [address], [place], Glucose [Mass/Vol] 112 mg/dL Normal 80-116 [facility] Comment on above: Performed By: #### Meenu Trammell8, HEPATIC #### [facility] [address], [place], MAGNESIUMon 05-22-2022 Magnesium [Mass/Vol] 2.0 mg/dL Normal 1.6-2.8 [facility] Comment on above: Performed By: #### 8 2948 #### NURSING GLUCOSE PROGRAM [address] [place], [address] Progress Noteson 05-22-2022 Apron Cleaner Authentication Interface Message Text [facility] DIVISION OF ACUTE CARE SURGERY ---- GENERAL INFORMATION --- EMERGENCY GENERAL SURGERY NOTE Patient Name: Gerry Victoria Admission Date: 05/16/2022 Patient seen and examined on 05/22/2022 -- INTERVAL HISTORY/EVENTS Background Narrative: Gerry Victoria is a 66 year old female with PMH of hypertension, RLS, GERD, and h/o paroxysmal SVT who presented to [facility] with epigastric pain with nausea and vomiting. Patient describes onset of pain on prior day that has increased since then. Shortly after onset of pain, patient experienced nausea and persistent vomiting, now unable to tolerate PO intake. Denies fevers, chills. She presented to [facility] where EKG demonstrated 'hyperacute T waves' in multiple leads without evidence of STEMI. Troponin originally 139, then 381 on repeat. CTA was performed and did not reveal dissection or PE. CT did demonstrate acute inflammation of the gallbladder with a stone at the neck. A central line was placed for resuscitation purposes and the patient was transferred to [facility] for further evaluation. Prior to transfer, lab work without leukocytosis (10.7) and LFTs/Lipase without abnormality. ACS consulted upon arrival to [facility] for cholecystitis. She was admitted to the SDU for telemetry under EGS but transferred to [facility] on 05/20/22 Hospital Course/Procedures: 05/16/2022: Transferred from [facility] ED with cholecystitis, up-trending troponin, and unclear EKG findings. Up-trending leukocytosis, down-trending troponin by PM. Cardiology following. Zosyn started. 05/17/2022: rCT with worsening gallbladder inflammation /o free air or rupture. Percutaneous cholecystotomy tube placement with IR. 05/19/2022: Bilious emesis, NGT placed 05/20/2022: Transferred to [facility] 05/21/2022:To stop zosyn today day 06/28 [...] Seen resting in bed in SICU in [facility]- I J line in place [...] BUN Cr Ca Mg PO4 05/22/222 2.0 05/22/222 138 3.6 98 31 13 91 5 [...] Acute Cholecystitis Acute abdominal pain Type II RI Atypical takatsubo PMHx: GERD, HTN, HLD, spinal [...] P (more content not included)... Normal [facility] Apron Cleaner Authentication Interface Message Text 05/22/2022 4:04 PM Referring Attending: Dr Jocelyne Victoria [id number] Planned Procedure: Coronary angiograms w/ poss intervention Procedure Indication: Suspected CAD CV Risk Factors: Hypertension: Yes History of Present Illness: 66 year old female with history of hypertension, recent diagnosis of type II RI, atypical takotsubo, acute cholecystitis s/p percutaneous cholecystostomy drain placement is referred for [facility] for CAD risk stratification and preparation [...] Hemodyn (more content not included)... Normal [facility] BASIC METABOLIC PANELon 04-28 Anion gap [Moles/Vol] 12 mmol/L Normal 10-20 [facility] Comment on above: Performed By: #### 8 [id number] #### NURSING GLUCOSE PROGRAM [address] [place], [address] Calcium [Mass/Vol] 8.1 mg/dL Low 8.4-10.4 [facility] Comment on above: Performed By: #### 8 2948 #### NURSING GLUCOSE PROGRAM [address] [place], [address] Chloride [Moles/Vol] 100 mmol/L Normal 97-111 [facility] Comment on above: Performed By: #### 8 2948 #### NURSING GLUCOSE PROGRAM [address] [place], [address] CO2 [Moles/Vol] 29 mmol/L Normal 21-30 [facility] Comment on above: Performed By: #### 8 2948 #### NURSING GLUCOSE PROGRAM [address] [place], [address] Creatinine [Mass/Vol] 0.65 mg/dL Normal 0.50-1.10 [facility] Comment on above: Performed By: #### 8 2948 #### NURSING GLUCOSE PROGRAM [address] [place], [address] ESTIMATED GFR (CKD-EPI) 96 mL/min/1.73sqm Normal >=60 [...] Inclusion of Race in Diagnosing Kidney Disease. [place] Journal of Kidney Diseases 202;79(2):268-88.e1. 2. N Engl J Med 1 Vol. 385 Issue 19 Pages 8912-9224 Performed By: #### 8 2948 #### NURSING GLUCOSE PROGRAM [address] [place], [address] Glucose [Mass/Vol] 107 mg/dL Normal 80-116 [facility] Comment on above: Performed By: #### 8 2948 #### NURSING GLUCOSE PROGRAM [address] [place], [address] Potassium [Moles/Vol] 3.2 mmol/L Low 3.3-5.3 [facility] Comment on above: Performed By: #### 8 2948 #### NURSING GLUCOSE PROGRAM [address] [place] [address], [address] Sodium [Moles/Vol] 138 mmol/L Normal 135-148 [facility] Comment on above: Performed By: #### 8 2948 #### NURSING GLUCOSE PROGRAM [address] [place], [address] Urea nitrogen [Mass/Vol] 4 mg/dL Low 8-22 [facility] Comment on above: Performed By: #### 8 2948 #### NURSING GLUCOSE PROGRAM [address] [place] [address], [address] COMPLETE BLOOD COUNTon 05-21 Erythrocyte distribution width (RBC) [Ratio] 15.2 % High 11.5-14.5 [facility] Comment on above: Performed By: #### 8 2948 #### NURSING GLUCOSE PROGRAM [address] [place] [address], [address] Hematocrit (Bld) [Volume fraction] 30.1 % Low 36.0-46.0 [facility] Comment on above: Performed By: #### 8 2948 #### NURSING GLUCOSE PROGRAM [address] [place] [address], [address] Hemoglobin (Bld) [Mass/Vol] 10.1 g/dL Low 12.0-15.0 [facility] Comment on above: Performed By: #### 8 2948 #### NURSING GLUCOSE PROGRAM [address] [place] [address], [address] MCH (RBC) [Entitic mass] 27.5 pg Normal 26.0-34.0 [facility] Comment on above: Performed By: #### 8 2948 #### NURSING GLUCOSE PROGRAM [address] [place], [address] MCHC (RBC) [Mass/Vol] 33.4 g/dL Normal 32.0-35.9 [facility] Comment on above: Performed By: #### 8 2948 #### NURSING GLUCOSE PROGRAM [address] [place], [address] MCV (RBC) [Entitic vol] 82 fL Normal 80-100 [facility] Comment on above: Performed By: #### 8 2948 #### NURSING GLUCOSE PROGRAM [address] [place], [address] Platelet mean volume (Bld) [Entitic vol] 7.5 fL Normal 7.5-11.2 [facility] Comment on above: Performed By: #### 8 2948 #### NURSING GLUCOSE PROGRAM [address] [place], [address] Platelets (Bld) [#/Vol] 241 10*3/uL Normal 150-400 [facility] Comment on above: Performed By: #### 8 2948 #### NURSING GLUCOSE PROGRAM [address] [place], [address] RBC (Bld) [#/Vol] 3.67 10*6/uL Low 4.00-5.20 [facility] Comment on above: Performed By: #### 8 2948 #### NURSING GLUCOSE PROGRAM [address] [place], [address] WBC (Bld) [#/Vol] 5.0 10*3/uL Normal 4.5-11.5 [facility] Comment on above: Performed By: #### 8 2948 #### NURSING GLUCOSE PROGRAM [address] [place], [address] Care Plan Noteon 05-21-2022 Apron Cleaner Authentication Interface Message Text Problem: Routine Care: [...] Progressing Normal [facility] Consultson 05-21-2022 Apron Cleaner Authentication Interface Message Text Physical Therapy Attempted [...] C H8, HEPATIC #### [facility] [address] [place] [address], Glucose [Mass/Vol] 101 mg/dL Normal 80-116 [facility] Comment on above: Performed By: #### H STRP #### S [facility] LABORATORY [address] [place] [address], Glucose [Mass/Vol] 90 mg/dL Normal 80-116 [facility] Comment on above: Performed By: #### M G, CH8 #### [facility] [address] [place] [address], Glucose [Mass/Vol] 77 mg/dL Low 80-116 [facility] Comment on above: Performed By: #### 8 2948 #### NURSING GLUCOSE PROGRAM [address] [place] [address], Glucose [Mass/Vol] 91 mg/dL Normal 80-116 [facility] Comment on above: Performed By: #### T S #### [facility] [address] [place] [address], [id number] MAGNESIUMon 05-21-2022 Magnesium [Mass/Vol] 1.9 mg/dL Normal 1.6-2.8 [facility] Comment on above: Performed By: #### 8 2948 #### NURSING GLUCOSE PROGRAM [address] [place] [address], [address] Progress Noteson 05-21-2022 Apron Cleaner Authentication Interface Message Text [facility] DIVISION OF ACUTE CARE SURGERY ---- GENERAL INFORMATION --- EMERGENCY GENERAL SURGERY NOTE Patient Name: Gerry Victoria Admission Date: 05/16/2022 Patient seen and examined on 05/21/2022 -- INTERVAL HISTORY/EVENTS Background Narrative: Gerry Victoria is a 66 year old female with PMH of hypertension, RLS, GERD, and h/o paroxysmal SVT who presented to [facility] with epigastric pain with nausea and vomiting. Patient describes onset of pain on prior day that has increased since then. Shortly after onset of pain, patient experienced nausea and persistent vomiting, now unable to tolerate PO intake. Denies fevers, chills. She presented to [facility] where EKG demonstrated 'hyperacute T waves' in multiple leads without evidence of STEMI. Troponin originally 139, then 381 on repeat. CTA was performed and did not reveal dissection or PE. CT did demonstrate acute inflammation of the gallbladder with a stone at the neck. A central line was placed for resuscitation purposes and the patient was transferred to [facility] for further evaluation. Prior to transfer, lab work without leukocytosis (10.7) and LFTs/Lipase without abnormality. ACS consulted upon arrival to [facility] for cholecystitis. She was admitted to the SDU for telemetry under EGS but transferred to [facility] on 05/20/22 Hospital Course/Procedures: 05/16/2022: Transferred from [facility] ED with cholecystitis, up-trending troponin, and unclear EKG findings. Up-trending leukocytosis, down-trending troponin by PM. Cardiology following. Zosyn started. 05/17/2022: rCT with worsening gallbladder inflammation /o free air or rupture. Percutaneous cholecystotomy tube placement with IR. 05/19/2022: Bilious emesis, NGT placed 05/20/2022: Transferred to [facility] 05/21/2022:To stop zosyn today 06/28 Events in last 24 hours: -NAEO [...] Seen resting in bed in SICU in [facility]- I J line in place [...] Acute Cholecystitis Acute abdominal pain Type II RI Atypical takatsubo PMHx: GERD, HTN, HLD, spinal stenosis, paroxysmal SVT, overactive bladder, RLS, stasis dermatitis, PARTH, fibromyalgia, chronic fatigue syndrome Assessment: 66yo female with acute cholecystitis and associated pain. Admission complicated by initial up-trending troponin and abnormal EKG findings. Troponin now down-trending. Echo 05/16 with findings of LVEF 55% and possible atypical takatsubo for w (more content not included)... Normal [facility] ANTI FXA-LMW HEPARINon 05-20 ANTI FXA-LMW HEPARIN ASSAY 0.25 IU/mL Normal [facility] Comment on above: Order Comment: The r ecommended therapeutic range for treatment of thrombosis with Low Molecular Weight Heparin is 0.5 - 1.0 IU/mLThe recommended range for VTE prophylaxis with Low Molecular Weight Heparin is 0.2 - 0.4 IU/mL. Performed By: #### 8 2948 #### [facility] [address] [place] [address], [address] BASIC METABOLIC PANELon 04-28 Anion gap [Moles/Vol] 11 mmol/L Normal 10-20 [facility] Comment on above: Performed By: #### Reid Grullon, CH8 #### [facility] [address] [place] [address], Calcium [Mass/Vol] 7.6 mg/dL Low 8.4-10.4 [facility] Comment on above: Performed By: #### Reid Grullon, CH8 #### [facility] [address] [place] [address], Chloride [Moles/Vol] 100 mmol/L Normal 97-111 [facility] Comment on above: Performed By: #### Reid Grullon, CH8 #### [facility] [address] [place] [address], CO2 [Moles/Vol] 30 mmol/L Normal 21-30 [facility] Comment on above: Performed By: #### Reid Grullon, CH8 #### [facility] [address] [place] [address], Creatinine [Mass/Vol] 0.71 mg/dL Normal 0.50-1.10 [facility] Comment on above: Performed By: #### Reid Grullon, CH8 #### [facility] [address] [place] [address], ESTIMATED GFR (CKD-EPI) 93 mL/min/1.73sqm Normal >=60 [facility] Comment on above: Result Comment: [...] Inclusion of Race in Diagnosing Kidney Disease. [place] Journal of Kidney Diseases 2021;79(2):268-88.e1. 2. N Engl J Med 2020 Vol. 385 Issue 19 Pages [id number] Performed By: #### Reid Grullon, CH8 #### [facility] [address] [place] [address], Glucose [Mass/Vol] 105 mg/dL Normal 80-116 [facility] Comment on above: Performed By: #### Reid Grullon, ADEEL8 #### [facility] [address] [place] [address], Potassium [Moles/Vol] 3.8 mmol/L Normal 3.3-5.3 [facility] Comment on above: Performed By: #### Reid Grullon, ADEEL8 #### S [facility] LABORATORY [address] [place] [address], Sodium [Moles/Vol] 137 mmol/L Normal 135-148 [facility] Comment on above: Performed By: #### Reid Grullon, ADEEL8 #### S [facility] LAB[facility] [address] [place] [address], Urea nitrogen [Mass/Vol] 5 mg/dL Low 8-22 [facility] Comment on above: Performed By: #### Reid Grullon, CH8 #### S [facility] LABOR[facility]ORY [address] [place] [address], COMPLETE BLOOD COUNTon 05-20 Erythrocyte distribution width (RBC) [Ratio] 15.3 % High 11.5-14.5 [facility] Comment on above: Performed By: #### T S #### [facility] [address] [place] [address], Hematocrit (Bld) [Volume fraction] 27.9 % Low 36.0-46.0 [facility] Comment on above: Performed By: #### T S #### [facility] [address] [place] [address], Hemoglobin (Bld) [Mass/Vol] 9.2 g/dL Low 12.0-15.0 [facility] Comment on above: Performed By: #### T S #### [facility] [address] [place] [address], MCH (RBC) [Entitic mass] 27.5 pg Normal 26.0-34.0 [facility] Comment on above: Performed By: #### T S #### [facility] [address] [place] [address], MCHC (RBC) [Mass/Vol] 33.0 g/dL Normal 32.0-35.9 [facility] Comment on above: Performed By: #### T S #### [facility] [address] [place] [address], MCV (RBC) [Entitic vol] 83 fL Normal 80-100 [facility] Comment on above: Performed By: #### T S #### [facility] [address] [place] [address], Platelet mean volume (Bld) [Entitic vol] 7.5 fL Normal 7.5-11.2 [facility] Comment on above: Performed By: #### T S #### [facility] [address] [place] [address], Platelets (Bld) [#/Vol] 231 10*3/uL Normal 150-400 [facility] Comment on above: Performed By: #### T S #### [facility] [address] [place] [address], RBC (Bld) [#/Vol] 3.36 10*6/uL Low 4.00-5.20 [facility] Comment on above: Performed By: #### T S #### [facility] [address] [place] [address], WBC (Bld) [#/Vol] 4.7 10*3/uL Normal 4.5-11.5 [facility] Comment on above: Performed By: #### T S #### [facility] [address] [place] [address], GLUCOSE, FINGERSTICK-IN OFFI CEon 05-20-2022 Glucose [Mass/Vol] 95 mg/dL Normal 80-116 [facility] Comment on above: Performed By: #### 8 2948 ####NURSING GLUCOSE [id number] [place], [address] Glucose [Mass/Vol] 117 mg/dL High 80-116 [facility] Comment on above: Performed By: #### 8 2948 #### NURSING GLUCOSE PROGRAM [address] [place], [address] Glucose [Mass/Vol] 85 mg/dL Normal 80-116 [facility] Comment on above: Performed By: #### Reid Grullon, CH8 #### [facility] [address], [place], Glucose [Mass/Vol] 100 mg/dL Normal 80-116 [facility] Comment on above: Performed By: #### T S #### [facility] [address], [place], Glucose [Mass/Vol] 102 mg/dL Normal 80-116 [facility] Comment on above: Performed By: #### 8 2948 #### NURSING GLUCOSE PROGRAM [address] [place], [address] Glucose [Mass/Vol] 92 mg/dL Normal 80-116 [facility] Comment on above: Performed By: #### Reid Grullon, CH8 #### [facility] [address], [place], MAGNESIUMon 05-20-2022 Magnesium [Mass/Vol] 1.8 mg/dL Normal 1.6-2.8 [facility] Comment on above: Performed By: #### Reid Grullon, CH8 #### [facility] [address], [place], Progress Noteson 05-20-2022 Apron Cleaner Authentication Interface Message Text [facility] DIVISION OF ACUTE CARE SURGERY ---- GENERAL INFORMATION --- EMERGENCY GENERAL SURGERY NOTE Patient Name: Gerry Victoria Admission Date: 05/16/2022 Patient seen and examined on 05/20/2022 -- INTERVAL HISTORY/EVENTS Background Narrative: Gerry Victoria is a 66 year old female with PMH of hypertension, RLS, GERD, and h/o paroxysmal SVT who presented to [facility] with epigastric pain with nausea and vomiting. Patient describes onset of pain on prior day that has increased since then. Shortly after onset of pain, patient experienced nausea and persistent vomiting, now unable to tolerate PO intake. Denies fevers, chills. She presented to [facility] where EKG demonstrated 'hyperacute T waves' in multiple leads without evidence of STEMI. Troponin originally 139, then 381 on repeat. CTA was performed and did not reveal dissection or PE. CT did demonstrate acute inflammation of the gallbladder with a stone at the neck. A central line was placed for resuscitation purposes and the patient was transferred to [facility] for further evaluation. Prior to transfer, lab work without leukocytosis (10.7) and LFTs/Lipase without abnormality. ACS consulted upon arrival to [facility] for cholecystitis. She was admitted to the SDU for telemetry under EGS. Hospital Course/Procedures: 05/16/2022: Transferred from [facility] ED with cholecystitis, up-trending troponin, and unclear EKG findings. Up-trending leukocytosis, down-trending troponin by PM. Cardiology following. Zosyn started. 05/17/2022: rCT with worsening gallbladder inflammation /o free air or rupture. Percutaneous cholecystotomy tube placement with IR. 05/19/2022: Bilious emesis, NGT placed 05/20/2022: Transferred to [facility] Events in last 24 hours: Transferred to [facility] Afebrile, HDS, no leukocytosis NGT in [...] Seen resting in bed in SICU in [facility] -Neurologic - No focal deficits, clear speech [...] Acute Cholecystitis Acute abdominal pain Type II RI Atypical takatsubo PMHx: GERD, HTN, HLD, spinal [...] wit (more content not included)... Normal [facility] BASIC METABOLIC PANELon 04-28 Anion gap [Moles/Vol] 10 mmol/L Normal 10-20 [facility] Comment on above: Performed By: #### Reid Grullon CH8 #### [facility] [address] [place] [address], Calcium [Mass/Vol] 7.7 mg/dL Low 8.4-10.4 [facility] Comment on above: Performed By: #### Reid Grullon CH8 #### [facility] [address], [place], Chloride [Moles/Vol] 102 mmol/L Normal 97-111 [facility] Comment on above: Performed By: #### Reid Grullon CH8 #### [facility] [address], [place], CO2 [Moles/Vol] 31 mmol/L High 21-30 [facility] Comment on above: Performed By: #### Reid Grullon, CH8 #### [facility] [address], [place], Creatinine [Mass/Vol] 0.74 mg/dL Normal 0.50-1.10 [facility] Comment on above: Performed By: #### Reid Grullon, CH8 #### S PATHOLOGY LABORATORY [address], [place], ESTIMATED GFR (CKD-EPI) 88 mL/min/1.73sqm Normal >=60 [facility] Comment on above: Result Comment: 2020 [...] Inclusion of Race in Diagnosing Kidney Disease. [place] Journal of Kidney Diseases 2021;79(2):268-88.e1. 2. N Engl J Med 1 Vol. 385 Issue 19 Pages 8788-0379 Performed By: #### Reid Grullon, ADEEL8 #### S PATHOLOGY LABORATORY [address], [place], Glucose [Mass/Vol] 120 mg/dL High 80-116 [facility] Comment on above: Performed By: #### Reid Grullon, CH8 #### S PATHOLOGY LABORATORY [address], [place], Potassium [Moles/Vol] 3.5 mmol/L Normal 3.3-5.3 [facility] Comment on above: Performed By: #### Reid Grullon, CH8 #### S PATH[facility]Y LABORATORY [address], [place], Sodium [Moles/Vol] 139 mmol/L Normal 135-148 [facility] Comment on above: Performed By: #### Reid Grullon, CH8 #### S [facility] LABORATORY [address], [place], Urea nitrogen [Mass/Vol] 8 mg/dL Normal 8-22 [facility] Comment on above: Performed By: #### Reid Grullon, CH8 #### [facility] [address] [place] [address], COMPLETE BLOOD COUNTon 05-19 Erythrocyte distribution width (RBC) [Ratio] 15.6 % High 11.5-14.5 [facility] Comment on above: Performed By: #### Reid Grullon, CH8 #### [facility] [address] [place] [address], Hematocrit (Bld) [Volume fraction] 28.2 % Low 36.0-46.0 [facility] Comment on above: Performed By: #### Reid Grullon, CH8 #### [facility] [address] [place] [address], Hemoglobin (Bld) [Mass/Vol] 9.4 g/dL Low 12.0-15.0 [facility] Comment on above: Performed By: #### Reid Grullon, CH8 #### [facility] [address] [place] [address], MCH (RBC) [Entitic mass] 27.7 pg Normal 26.0-34.0 [facility] Comment on above: Performed By: #### Reid Grullon, CH8 #### [facility] [address] [place] [address], MCHC (RBC) [Mass/Vol] 33.6 g/dL Normal 32.0-35.9 [facility] Comment on above: Performed By: #### Reid Grullon, CH8 #### [facility] [address] [place] [address], MCV (RBC) [Entitic vol] 83 fL Normal 80-100 [facility] Comment on above: Performed By: #### Reid Grullon, CH8 #### [facility] [address] [place] [address], Platelet mean volume (Bld) [Entitic vol] 7.8 fL Normal 7.5-11.2 [facility] Comment on above: Performed By: #### Reid Grullon, CH8 #### [facility] [address] [place] [address], Platelets (Bld) [#/Vol] 199 10*3/uL Normal 150-400 [facility] Comment on above: Performed By: #### Reid Grullon CH8 #### [facility] [address] [place] [address], RBC (Bld) [#/Vol] 3.41 10*6/uL Low 4.00-5.20 [facility] Comment on above: Performed By: ###Willi Grullon CH8 #### [facility] [address], [place], WBC (Bld) [#/Vol] 5.3 10*3/uL Normal 4.5-11.5 [facility] Comment on above: Performed By: #### Reid Grullon CH8 #### [facility] [address], [place], Care Plan Noteon 05-19-2022 Apron Cleaner Authentication Interface Message Text Problem: Routine Care: [...] Glucose [Mass/Vol] 80 mg/dL Normal 80-116 [facility] Comment on above: Performed By: #### M G, CH8 #### S PATHOLOGY LABORATORY [address] [place] [address], Glucose [Mass/Vol] 90 mg/dL Normal 80-116 [facility] Comment on above: Performed By: #### 8 [id number] #### NURSING GLUCOSE PROGRAM [address], [place], Glucose [Mass/Vol] 116 mg/dL Normal 80-116 [facility] Comment on above: Performed By: #### T S #### S PATHOLOGY LABORATORY [address] [place] [address], Glucose [Mass/Vol] 106 mg/dL Normal 80-116 [facility] Comment on above: Performed By: #### Reid Grullon, CH8 #### S [facility] LAB[facility]ATORY [address] [place] [address], Glucose [Mass/Vol] 106 mg/dL Normal 80-116 [facility] Comment on above: Performed By: #### Reid Grullon, CH8 #### [facility] [address] [place] [address], HEPATIC FUNCTION PANELon Albumin [Mass/Vol] 2.8 g/dL Low 3.4-5.1 [facility] Comment on above: Performed By: #### Reid Grullon, CH8 #### S PATH[facility] LAB[facility]ATORY [address] [place] [address], ALK 63 IU/L Normal 40-200 [facility] Comment on above: Performed By: #### Reid Grullon, CH8 #### S PATH[facility] LAB[facility]ATORY [address] [place] [address], ALT [Catalytic activity/Vol] 8 U/L Normal 7-40 [facility] Comment on above: Performed By: #### Reid Grullon, CH8 #### S [facility]ATORY [address] [place] [address], AST [Catalytic activity/Vol] 18 U/L Normal 7-40 The [facility] Comment on above: Performed By: #### Reid Grullon, CH8 #### S PATH[facility] LAB[facility]ATORY [address] [place] [address], Bilirubin [Mass/Vol] 0.9 mg/dL Normal 0.1-1.5 [facility] Comment on above: Performed By: #### M Yadi, CH8 #### S PATH[facility] LABORATORY [address] [place] [address], Bilirubin.direct [Mass/Vol] 0.48 mg/dL High 0.10-0.30 [facility] Comment on above: Performed By: #### Reid Grullon, CH8 #### S [facility]ORY [address] [place] [address], Protein [Mass/Vol] 4.7 g/dL Low 5.7-8.1 [facility] Comment on above: Performed By: #### Reid Grullon, CH8 #### S [facility]ATORY [address] [place] [address], MAGNESIUMon 05-19-2022 Magnesium [Mass/Vol] 1.8 mg/dL Normal 1.6-2.8 [facility] Comment on above: Performed By: #### Reid Grullon, CH8 #### [facility] PATH[facility] [address] [place] [address], Progress Noteson 05-19-2022 Apron Cleaner Authentication Interface Message Text [facility] DIVISION OF ACUTE CARE SURGERY ---- GENERAL INFORMATION --- EMERGENCY GENERAL SURGERY NOTE Patient Name: Gerry Victoria Admission Date: 05/16/2022 Patient seen and examined on 05/19/2022 -- INTERVAL HISTORY/EVENTS Background Narrative: Gerry Victoria is a 66 year old female with PMH of hypertension, RLS, GERD, and h/o paroxysmal SVT who presented to [facility] with epigastric pain with nausea and vomiting. Patient describes onset of pain on prior day that has increased since then. Shortly after onset of pain, patient experienced nausea and persistent vomiting, now unable to tolerate PO intake. Denies fevers, chills. She presented to [facility] where EKG demonstrated 'hyperacute T waves' in multiple leads without evidence of STEMI. Troponin originally 139, then 381 on repeat. CTA was performed and did not reveal dissection or PE. CT did demonstrate acute inflammation of the gallbladder with a stone at the neck. A central line was placed for resuscitation purposes and the patient was transferred to [facility] for further evaluation. Prior to transfer, lab work without leukocytosis (10.7) and LFTs/Lipase without abnormality. ACS consulted upon arrival to [facility] for cholecystitis. She was admitted to the SDU for telemetry under EGS. Hospital Course/Procedures: 05/16/2022: Transferred from [facility] ED with cholecystitis, up-trending troponin, and unclear [...] vol (more content not included)... Normal [facility] XR ABDOMEN 1 VIEW APon 05-19 [...] amount of stool. MACRO: None Normal [facility] BASIC METABOLIC PANELon - Anion gap [Moles/Vol] 12 mmol/L Normal 10-20 [facility] Comment on above: Performed By: #### Reid Grullon CH8 #### [facility] [address] [place] [address], Calcium [Mass/Vol] 7.7 mg/dL Low 8.4-10.4 [facility] Comment on above: Performed By: #### Reid Grullon CH8 #### [facility] [address], [place], Chloride [Moles/Vol] 101 mmol/L Normal 97-111 [facility] Comment on above: Performed By: #### Reid Grullon CH8 #### [facility] [address], [place], CO2 [Moles/Vol] 27 mmol/L Normal 21-30 [facility] Comment on above: Performed By: #### Reid Grullon, CH8 #### [facility] [address], [place], Creatinine [Mass/Vol] 0.78 mg/dL Normal 0.50-1.10 [facility] Comment on above: Performed By: #### Reid Grullon, CH8 #### S PATHOLOG[facility] LAB[facility]ATORY [address], [place], ESTIMATED GFR (CKD-EPI) 83 mL/min/1.73sqm Normal >=60 [facility] Comment on above: Result Comment: 2020 [...] Inclusion of Race in Diagnosing Kidney Disease. [place] Journal of Kidney Diseases 2021;79(2):268-88.e1. 2. N Engl J Med 2020 Vol. 385 Issue 19 Pages 7967-4251 Performed By: #### Reid Grullon CH8 #### S PATH[facility] LAB[facility]AT[facility] [address], [place], Glucose [Mass/Vol] 77 mg/dL Low 80-116 [facility] Comment on above: Performed By: #### Reid Grullon, ADEEL8 #### S PATHOLOGY LABORATORY [address], [place], Potassium [Moles/Vol] 3.9 mmol/L Normal 3.3-5.3 [facility] Comment on above: Performed By: #### Reid Grullon, CH8 #### [facility] [address], [place], Sodium [Moles/Vol] 136 mmol/L Normal 135-148 [facility] Comment on above: Performed By: #### Reid Grullon, ADEEL8 #### S PATHOLOGY LABORATORY [address], [place], Urea nitrogen [Mass/Vol] 12 mg/dL Normal 8-22 [facility] Comment on above: Performed By: #### Reid Grullon, CH8 #### [facility] [address] [place] [address], COMPLETE BLOOD COUNTon 05-18 Erythrocyte distribution width (RBC) [Ratio] 15.3 % High 11.5-14.5 [facility] Comment on above: Performed By: #### Reid Grullon, CH8 #### [facility] [address] [place] [address], Hematocrit (Bld) [Volume fraction] 28.2 % Low 36.0-46.0 [facility] Comment on above: Performed By: #### Reid Grullon, CH8 #### [facility] [address] [place] [address], Hemoglobin (Bld) [Mass/Vol] 10.1 g/dL Low 12.0-15.0 [facility] Comment on above: Performed By: #### Reid Grullon, CH8 #### [facility] [address] [place] [address], MCH (RBC) [Entitic mass] 29.2 pg Normal 26.0-34.0 [facility] Comment on above: Performed By: #### Reid Grullon, CH8 #### [facility] [address] [place] [address], MCHC (RBC) [Mass/Vol] 35.6 g/dL Normal 32.0-35.9 [facility] Comment on above: Performed By: #### Reid Grullon, CH8 #### [facility] [address] [place] [address], MCV (RBC) [Entitic vol] 82 fL Normal 80-100 [facility] Comment on above: Performed By: #### Reid Grullon, CH8 #### [facility] [address] [place] [address], Platelet mean volume (Bld) [Entitic vol] 7.6 fL Normal 7.5-11.2 [facility] Comment on above: Performed By: #### Reid Grullon, CH8 #### [facility] [address] [place] [address], Platelets (Bld) [#/Vol] 177 10*3/uL Normal 150-400 [facility] Comment on above: Performed By: #### Reid Gurllon, ADEEL8 #### [facility] [address] [place] [address], RBC (Bld) [#/Vol] 3.45 10*6/uL Low 4.00-5.20 [facility] Comment on above: Performed By: #### Reid Grullon, ADEEL8 #### S PATHOLOGY LABORATORY [address] [place] [address], WBC (Bld) [#/Vol] 9.4 10*3/uL Normal 4.5-11.5 [facility] Comment on above: Performed By: #### Reid Grullon CH8 #### [facility] [address] [place] [address], GLUCOSE, FINGERSTICK-IN OFFI CEon 05-18-2022 Glucose [Mass/Vol] 93 mg/dL Normal 80-116 [facility] Comment on above: Performed By: #### T S #### [facility] [address] [place] [address], Glucose [Mass/Vol] 98 mg/dL Normal 80-116 [facility] Comment on above: Performed By: #### T S #### [facility] [address] [place] [address], Glucose [Mass/Vol] 118 mg/dL High 80-116 [facility] Comment on above: Result Comment: Verito aly RN, APN, MD Performed By: #### T S #### [facility] [address] [place] [address], Glucose [Mass/Vol] 125 mg/dL High 80-116 [facility] Comment on above: Result Comment: Verito aly RN, APN, MD Performed By: #### Reid Grullon, ADEEL8 #### S PATHOLOGY LABORATORY [address] [place] [address], Glucose [Mass/Vol] 66 mg/dL Low 80-116 [facility] Comment on above: Result Comment: Verito aly RN, APN, MD Performed By: #### M [facility] #### [facility] [address] [place], [id number] HIGH SENSITIVITY TROPONIN Io n 05-18-2022 HS TROPONIN I 60 ng/L Critically high <=15 The [facility] Comment on above: Order Comment: High Sensitivity Cardiac Troponin I (hsTnI) assay has replaced the conventional troponin assay at [facility].All results are reported in whole numbers representing ng/L.Repeat test times for ruling out acute coronary syndrome (ACS) are every 2 hours instead of every 6-8 hours.[id number] conventional troponin (I-stat) will remain available in the Main [place] [facility] ??? results obtained by different labs [...] value in 2 hours depending on risk [id number] ng/L or greater??? concern for ACS or [...] Performed By: #### H STRP ####S PATHOLOGY [id number] [place], [place], MAGNESIUMon 05-18-2022 Magnesium [Mass/Vol] 2.3 mg/dL Normal 1.6-2.8 [facility] Comment on above: Performed By: #### M G, CH8 #### S PATHOLOGY LABORATORY [address], [place], Progress Noteson 05-18-2022 Apron Cleaner Authentication Interface Message Text [facility] DIVISION OF ACUTE CARE SURGERY ---- GENERAL INFORMATION --- EMERGENCY GENERAL SURGERY NOTE Patient Name: Gerry Victoria Admission Date: 05/16/2022 Patient seen and examined on 05/18/2022 -- INTERVAL HISTORY/EVENTS Background Narrative: Gerry Victoria is a 66 year old female with PMH of hypertension, RLS, GERD, and h/o paroxysmal SVT who presented to [facility] with epigastric pain with nausea and vomiting. Patient describes onset of pain on prior day that has increased since then. Shortly after onset of pain, patient experienced nausea and persistent vomiting, now unable to tolerate PO intake. Denies fevers, chills. She presented to [facility] where EKG demonstrated 'hyperacute T waves' in multiple leads without evidence of STEMI. Troponin originally 139, then 381 on repeat. CTA was performed and did not reveal dissection or PE. CT did demonstrate acute inflammation of the gallbladder with a stone at the neck. A central line was placed for resuscitation purposes and the patient was transferred to [facility] for further evaluation. Prior to transfer, lab work without leukocytosis (10.7) and LFTs/Lipase without abnormality. ACS consulted upon arrival to [facility] for cholecystitis. She was admitted to the SDU for telemetry under EGS. Hospital Course/Procedures: 05/16/2022: Transferred from [facility] ED with cholecystitis, up-trending troponin, and unclear EKG findings. Up-trending leukocytosis, down-trending troponin by PM. Cardiology following. Audreysyn started. 05/17/2022: rCT with worsening gallbladder inflammation [...] Seen resting in bed in SICU in [facility] -Neurologic - No focal deficits, clear speech [...] obstructi (more content not included)... Normal [facility] AEROBIC WOUND CULTUREon 02- AEROBIC WOUND CULTURE LACTOBACILLUS SPEC IES Rare Lactobacillus species No further workup GRAM STAIN: 2+ Polymorphonuclear Leukocytes No Squamous Epithelial Cells seen 2+ Gram Positive Bacilli Normal [facility] Comment on above: Performed By: #### C PYOG #### [facility] Pathology [address] [place] [address] BASIC METABOLIC PANELon - Anion gap [Moles/Vol] 11 mmol/L Normal 10-20 [facility] Comment on above: Performed By: #### T S #### [facility] [address] [place] [address], Calcium [Mass/Vol] 8.1 mg/dL Low 8.4-10.4 [facility] Comment on above: Performed By: #### T S #### [facility] [address] [place] [address], Chloride [Moles/Vol] 97 mmol/L Normal 97-111 [facility] Comment on above: Performed By: #### T S #### [facility] [address] [place] [address], CO2 [Moles/Vol] 27 mmol/L Normal 21-30 [facility] Comment on above: Performed By: #### T S #### [facility] [address] [place] [address], Creatinine [Mass/Vol] 0.97 mg/dL Normal 0.50-1.10 [facility] Comment on above: Performed By: #### T S #### [facility] [address] [place] [address], ESTIMATED GFR (CKD-EPI) 64 mL/min/1.73sqm Normal >=60 [facility] Comment on above: Result Comment: [...] Inclusion of Race in Diagnosing Kidney Disease. [place] Journal of Kidney Diseases 202;79(2):268-88.e1. 2. N Engl J Med 2021 Vol. 385 Issue 19 Pages 4386-1332 Performed By: #### T S #### S PATHOLOGY LABORATORY [address] [place] [address], Glucose [Mass/Vol] 96 mg/dL Normal 80-116 [facility] Comment on above: Performed By: #### T S #### S PATHOLOGY LABORATORY [address], [place], Potassium [Moles/Vol] 4.1 mmol/L Normal 3.3-5.3 [facility] Comment on above: Performed By: #### T S #### S PATHOLOGY LABORATORY [address] [place] [address], Sodium [Moles/Vol] 131 mmol/L Low 135-148 [facility] Comment on above: Performed By: #### T S #### [facility] [address] [place] [address], Urea nitrogen [Mass/Vol] 14 mg/dL Normal 8-22 [facility] Comment on above: Performed By: #### T S #### S PATHOLOGY LABORATORY [address] [place] [address], BLOOD CULTUREon 05-17-2022 Bacteria identified Cx Nom (Bld) C BLOOD: No Growth Normal [facility] Comment on above: Performed By: #### 8 2948 #### NURSING GLUCOSE PROGRAM [address], [place], CALCIUM, IONIZEDon CR ICA 1.06 mmol/L Low 1.10-1.40 [facility] Comment on above: Performed By: #### T S #### S PATHOLOGY LABORATORY [address], [place], COMPLETE BLOOD COUNTon 05-17 Erythrocyte distribution width (RBC) [Ratio] 15.8 % High 11.5-14.5 [facility] Comment on above: Performed By: #### C H8, HEPATIC #### S PATHOLOGY LABORATORY [address], [place], Hematocrit (Bld) [Volume fraction] 36.4 % Normal 36.0-46.0 [facility] Comment on above: Performed By: #### C H8, HEPATIC #### [facility] [address], [place], Hemoglobin (Bld) [Mass/Vol] 12.1 g/dL Normal 12.0-15.0 [facility] Comment on above: Performed By: #### C H8, HEPATIC #### [facility] [address], [place], MCH (RBC) [Entitic mass] 27.7 pg Normal 26.0-34.0 [facility] Comment on above: Performed By: #### C H8, HEPATIC #### [facility] [address], [place], MCHC (RBC) [Mass/Vol] 33.3 g/dL Normal 32.0-35.9 [facility] Comment on above: Performed By: #### C H8, HEPATIC #### S PATHOLOGY LABORATORY [address], [place], MCV (RBC) [Entitic vol] 83 fL Normal 80-100 [facility] Comment on above: Performed By: #### C H8, HEPATIC #### S PATHOLOGY LABORATORY [address], [place], Platelet mean volume (Bld) [Entitic vol] 7.8 fL Normal 7.5-11.2 [facility] Comment on above: Performed By: #### C H8, HEPATIC #### [facility] [address], [place], Platelets (Bld) [#/Vol] 232 10*3/uL Normal 150-400 [facility] Comment on above: Performed By: #### C H8, HEPATIC #### [facility] [address], [place], RBC (Bld) [#/Vol] 4.37 10*6/uL Normal 4.00-5.20 [facility] Comment on above: Performed By: #### C H8, HEPATIC #### [facility] [address], [place], WBC (Bld) [#/Vol] 12.3 10*3/uL High 4.5-11.5 [facility] Comment on above: Performed By: #### C H8, HEPATIC #### [facility] [address] [place], [id number] CT ABDOMEN/PELVIS W/ CONTRAS Ton 05-17-2022 CT [...] the prior study. MACRO: None Normal [facility] HEPATIC FUNCTION PANELon Albumin [Mass/Vol] 3.2 g/dL Low 3.4-5.1 [facility] Comment on above: Performed By: #### C H8, HEPATIC #### [facility] [address] [place] [address], ALK 72 IU/L Normal 40-200 [facility] Comment on above: Performed By: #### C H8, HEPATIC #### [facility] [address] [place] [address], ALT [Catalytic activity/Vol] 12 U/L Normal 7-40 [facility] Comment on above: Performed By: #### C H8, HEPATIC #### [facility] [address] [place] [address], AST [Catalytic activity/Vol] 25 U/L Normal 7-40 [facility] Comment on above: Performed By: #### C H8, HEPATIC #### [facility] [address] [place] [address], Bilirubin [Mass/Vol] 3.9 mg/dL High 0.1-1.5 [facility] Comment on above: Performed By: #### C H8, HEPATIC #### [facility] [address] [place] [address], Bilirubin.direct [Mass/Vol] 2.30 mg/dL High 0.10-0.30 [facility] Comment on above: Performed By: #### C H8, HEPATIC #### [facility] [address], [place], Protein [Mass/Vol] 5.2 g/dL Low 5.7-8.1 [facility] Comment on above: Performed By: #### Meenu H8, HEPATIC #### [facility] [address] [place] [address], LACTIC ACIDon 05-17-2022 CR LACT 1.4 mmol/L Normal 0.5-2.0 [facility] Comment on above: Performed By: #### T S #### S PATHOLOGY LABORATORY [address], [place], MAGNESIUMon 05-17-2022 Magnesium [Mass/Vol] 1.9 mg/dL Normal 1.6-2.8 [facility] Comment on above: Performed By: #### Meenu Trammell8, HEPATIC #### S PATHOLOGY LABORATORY [address] [place] [address], PARTIAL THROMBOPLASTIN TIMEo n 05-17-2022 aPTT Coag (Bld) [Time] 34 s Normal 25-37 Th e [facility] Comment on above: Performed By: #### Reid Grullon CH8 #### S PATHOLOGY LABORATORY [address] [place] [address], PHOSPHORUSon 05-17-2022 Phosphate [Mass/Vol] 3.9 mg/dL Normal 2.3-4.2 [facility] Comment on above: Performed By: #### Meenu H8, HEPATIC #### S PATHOLOGY LABORATORY [address] [place] [address], PROTHROMBIN TIME AND INRon 0 05-17-2022 INR Coag (PPP) [Relative time] 1.61 {INR} High 0.90-1.10 [facility] Comment on above: Performed By: #### Reid Grullon, ADEEL8 #### S PATHOLOGY LABORATORY [address] [place] [address], PT Coag (PPP) [Time] 18.1 s High 9.7-12.9 [facility] Comment on above: Performed By: #### Reid Grullon CH8 #### S PATHOLOGY LABORATORY [address] [place] [address], [id number] Progress Noteson 05-17-2022 Apron Cleaner Authentication Interface Message Text Acute Care Surgery Post-Operative Check Gerry Victoria [id number] Procedure: US guided percutaneous cholecystostomy tube placement [...] Chu Da Silva PA-C Acute Care Surgery [facility] [id number] ACS Consults [id number] ACS Floor Patients Normal [facility] Apron Cleaner Authentication Interface Message Text -- Attestation signed [...] Cl CO2 Gap Glu BUN Cr Ca 05/18/22 0228 136 3.9 101 27 12 77 12 0.78 7.7 05/17/22 0411 131 4.1 97 27 11 96 14 0.97 8.1 05/16/22 0222 136 4. (more content not included)... Normal [facility] Apron Cleaner Authentication Interface Message Text [facility] DIVISION OF ACUTE CARE SURGERY ---- GENERAL INFORMATION --- EMERGENCY GENERAL SURGERY NOTE Patient Name: Gerry Victoria Admission Date: 05/16/2022 Patient seen and examined on 05/17/2022 -- INTERVAL HISTORY/EVENTS Background Narrative: Gerry Victoria is a 66 year old female with PMH of hypertension, RLS, GERD, and h/o paroxysmal SVT who presented to [facility] with epigastric pain with nausea and vomiting. Patient describes onset of pain on prior day that has increased since then. Shortly after onset of pain, patient experienced nausea and persistent vomiting, now unable to tolerate PO intake. Denies fevers, chills. She presented to [facility] where EKG demonstrated 'hyperacute T waves' in multiple leads without evidence of STEMI. Troponin originally 139, then 381 on repeat. CTA was performed and did not reveal dissection or PE. CT did demonstrate acute inflammation of the gallbladder with a stone at the neck. A central line was placed for resuscitation purposes and the patient was transferred to [facility] for further evaluation. Prior to transfer, lab work without leukocytosis (10.7) and LFTs/Lipase without abnormality. ACS consulted upon arrival to [facility] for cholecystitis. She was admitted to the SDU for telemetry under EGS. Hospital Course/Procedures: 05/16/2022: Transferred from [facility] ED with cholecystitis, up-trending troponin, and unclear [...] (LVEF) (more content not included)... Normal [facility] ABO RH TYPEon 05-16-2022 ABO and Rh group Nom (Bld) Blood group A Rh(D) positive Normal [facility] Comment on above: Performed By: #### Reid Grullon CH8 #### S PATHOLOGY LABORATORY [address] [place] [address], BASIC METABOLIC PANELon 04-28 Anion gap [Moles/Vol] 14 mmol/L Normal 10-20 [facility] Comment on above: Performed By: #### C H8, HEPATIC #### S PATHOLOGY LABORATORY [address] [place] [address], Calcium [Mass/Vol] 8.6 mg/dL Normal 8.4-10.4 [facility] Comment on above: Performed By: #### C H8, HEPATIC #### [facility] [address] [place] [address], Chloride [Moles/Vol] 100 mmol/L Normal 97-111 [facility] Comment on above: Performed By: #### C H8, HEPATIC #### [facility] [address] [place] [address], CO2 [Moles/Vol] 27 mmol/L Normal 21-30 [facility] Comment on above: Performed By: #### C H8, HEPATIC #### [facility] [address] [place] [address], Creatinine [Mass/Vol] 0.76 mg/dL Normal 0.50-1.10 [facility] Comment on above: Performed By: #### C H8, HEPATIC #### [facility] [address] [place] [address], ESTIMATED GFR (CKD-EPI) 85 mL/min/1.73sqm Normal >=60 [facility] Comment on above: Result Comment: 2020 [...] Inclusion of Race in Diagnosing Kidney Disease. [place] Journal of Kidney Diseases 2021;79(2):268-88.e1. 2. N Engl J Med 1 Vol. 385 Issue 19 Pages 8342-2523 Performed By: #### C H8, HEPATIC #### [facility] [address] [place] [address], Glucose [Mass/Vol] 119 mg/dL High 80-116 [facility] Comment on above: Performed By: #### C H8, HEPATIC #### [facility] [address] [place] [address], Potassium [Moles/Vol] 4.9 mmol/L Normal 3.3-5.3 [facility] Comment on above: Performed By: #### C H8, HEPATIC #### [facility] [address] [place] [address], Sodium [Moles/Vol] 136 mmol/L Normal 135-148 [facility] Comment on above: Performed By: #### C H8, HEPATIC #### [facility] [address] [place] [address], Urea nitrogen [Mass/Vol] 9 mg/dL Normal 8-22 [facility] Comment on above: Performed By: #### C H8, HEPATIC #### [facility] [address] [place] [address], [phone] Blood Cultureon 05-16-2022 Bacteria identified Cx Nom (Bld) NO GROWTH 5 DAYS PERFORMED BY: [place] [address] PATHOLOGIST SKIRT TRIMMER WILDER BOTELLO M.D. Normal [facility] Comment on above: Performed By: #### B MP, CBC, LIPASE, HEPATIC #### [address] CBC WITH DIFFERENTIALon 04-28 Basophils (Bld) [#/Vol] 0.06 10*3/uL Normal 0.00-0.20 [facility] Comment on above: Performed By: #### 8 2948 #### NURSING GLUCOSE PROGRAM [address] [place] [address], [address] Basophils/100 WBC (Bld) 0.5 % Normal <=1.9 [facility] Comment on above: Performed By: #### 8 2948 #### NURSING GLUCOSE PROGRAM [address] [place] [address], [address] Eosinophils (Bld) [#/Vol] 0.02 10*3/uL Normal 0.00-0.70 [facility] Comment on above: Performed By: #### 8 2948 #### NURSING GLUCOSE PROGRAM [address] [place] [address], [address] Eosinophils/100 WBC (Bld) 0.1 % Normal 0.1-4.0 [facility] Comment on above: Performed By: #### 8 2948 #### NURSING GLUCOSE PROGRAM [address] [place] [address], [address] Erythrocyte distribution width (RBC) [Ratio] 15.3 % High 11.5-14.5 [facility] Comment on above: Performed By: #### 8 2948 #### NURSING GLUCOSE PROGRAM [address] [place] [address], [address] Hematocrit (Bld) [Volume fraction] 39.2 % Normal 36.0-46.0 [facility] Comment on above: Performed By: #### 8 2948 #### NURSING GLUCOSE PROGRAM [address] [place] [address], [address] Hemoglobin (Bld) [Mass/Vol] 13.0 g/dL Normal 12.0-15.0 [facility] Comment on above: Performed By: #### 8 2948 #### NURSING GLUCOSE PROGRAM [address] [place] [address], [address] Lymphocytes (Bld) [#/Vol] 1.23 10*3/uL Normal 1.00-4.80 [facility] Comment on above: Performed By: #### 8 2948 #### NURSING GLUCOSE PROGRAM [address] [place] [address], [address] Lymphocytes/100 WBC (Bld) 10.9 % Low 24.0-44.0 [facility] Comment on above: Performed By: #### 8 2948 #### NURSING GLUCOSE PROGRAM [address] [place] [address], [address] MCH (RBC) [Entitic mass] 27.4 pg Normal 26.0-34.0 [facility] Comment on above: Performed By: #### 8 2948 #### NURSING GLUCOSE PROGRAM [address] [place] [address], [address] MCHC (RBC) [Mass/Vol] 33.1 g/dL Normal 32.0-35.9 [facility] Comment on above: Performed By: #### 8 2948 #### NURSING GLUCOSE PROGRAM [address] [place] [address], [address] MCV (RBC) [Entitic vol] 83 fL Normal 80-100 [facility] Comment on above: Performed By: #### 8 2948 #### NURSING GLUCOSE PROGRAM [address] [place] [address], [address] MONOCYTE DISTRIBUTION WIDTH 17 Normal <=20 [facility] Comment on above: Performed By: #### 8 2948 #### NURSING GLUCOSE PROGRAM [address] [place] [address], [address] Monocytes (Bld) [#/Vol] 0.69 10*3/uL Normal 0.20-1.00 [facility] Comment on above: Performed By: #### 8 0828 #### NURSING GLUCOSE PROGRAM [address] [place] [address], [address]483 Monocytes/100 WBC (Bld) 6.1 % Normal 2.0-11.0 [facility] Comment on above: Performed By: #### 8 6348 #### NURSING GLUCOSE PROGRAM [address] [place], [address] Neutrophils (Bld) [#/Vol] 9.30 10*3/uL High 1.50-8.00 [facility] Comment on above: Performed By: #### 8 2948 #### NURSING GLUCOSE PROGRAM [address] [place], [address] Neutrophils/100 WBC (Bld) 82.4 % High 31.0-76.0 [facility] Comment on above: Performed By: #### 8 2948 #### NURSING GLUCOSE PROGRAM [address] [place], [address] Platelet mean volume (Bld) [Entitic vol] 7.5 fL Normal 7.5-11.2 [facility] Comment on above: Performed By: #### 8 2948 #### NURSING GLUCOSE PROGRAM [address] [place], [address] Platelets (Bld) [#/Vol] 290 10*3/uL Normal 150-400 [facility] Comment on above: Performed By: #### 8 2948 #### NURSING GLUCOSE PROGRAM [address] [place], [address] RBC (Bld) [#/Vol] 4.74 10*6/uL Normal 4.00-5.20 [facility] Comment on above: Performed By: #### 8 2948 #### NURSING GLUCOSE PROGRAM [address] [place], [address] WBC (Bld) [#/Vol] 11.3 10*3/uL Normal 4.5-11.5 [facility] Comment on above: Performed By: #### 8 2948 #### NURSING GLUCOSE PROGRAM [address] [place], [address] CT angio chest PE protocolon 05-16-2022 CT angio chest PE protocol [facility] [place] [address] CT Scan Report Signed Patient: Gerry Victoria MR#: [id number] 10 : 1955 Acct:[id number] Age/Sex: 66 / F ADM Date: 05/15/22 Loc: ER Room: Type: [facility] ER Attending Dr: Copies to: Keith [...] Aditya Hodge M.D.05/16/2022 8:19 AM Dictation Location: [place] [address] Transcribed By: MANUEL 05/16/22818 Dictated By: Aditya Hodge II, MD 05/16/22810 Signed By: 05/16/[address] [facility] Care Plan Noteon 05-16-2022 Apron Cleaner Authentication Interface Message Text Problem: Routine Care: Goal: Patient care will be managed and maintained throughout hospital stay per unit specific routine care procedure 05/16/2022 1042 by Marycarmen Anna RN Outcome: Progressing 05/16/2022 1041 by Marycarmen Anan RN Outcome: Progressing Problem: Acute Pain: Goal: [...] Marycarmen Anna RN Outcome: Progressing Normal [facility] Apron Cleaner Authentication Interface Message Text This is a 66 YO f with PMH of fibromyalgia, HTN, RLS, who presented with epigastric pain associated with nausea and vomiting around yesterday afternoon. She was seen at [facility] and EKG done there showed NSR [...] admit to surgery step down. Normal [facility] Consultson 05-16-2022 Apron Cleaner Authentication Interface Message Text Dietitian vs DietaryTech: Dietary TechDiet Concrete Float Maker Nutrition Screening Reason for visit: Positive [...] Screening Value: None Comments: NPO currently with ogbolz-qihyibwi-umaoeu to tolerate po. No food allergies. Weights-see above. Monitor NPO status-diet advance. Number of Points: 1 Nutritional Plan of Care: Less than or equal to 6 points: At this time, patient is at low nutrition risk. DTR to provide routine follow up. Will continue to follow, BRENDA Florez (Nutrition) Pager #[phone]. Normal [facility] Apron Cleaner Authentication Interface Message Text ==== New Patient Consult General Cardiology Consult Service C/O: elevated troponin levels HPI: 66 year old female with history of hypertension (on atenolol), fibromylagia, RLS is consulted for elevated HsTNT levels in the setting of hospitalization for acute cholecystitis. She presented to [facility] on 05/15 with epigastric pain, nausea and vomiting, worsening in nature and unable to tolerate oral medications. Per records, EKG at [facility] showed hyperacute T waves without STEMI. HsTroponin trend as 139->381. Imaging showed acute cholecystitis. Patient was then transferred to [facility] for further care. Patient reports no left sided chest pain, however symptomatic with epigastric pain and nausea. Denies any exertional angina at home, no orthopnea, PND or palpitations at home. Denies any prior history of RI/CAD, DM-2, HF or arrhythmias. She was modestly [...] Assessment AND Plan Troponinemia, as Type II RI. It is under the setting of demand [...] docum (more content not included)... Normal [facility] ED Provider Deandre 05-16-19 Apron Cleaner Authentication Interface Message Text EMERGENCY DEPARTMENT - [...] and shows cholecystitis Discussion with External Provider: Director Of Group Sales from surgery service recommends admission for cholecystectomy [...] comforta (more content not included)... Normal [facility] H AND Cabrera 05-16-2022 Apron Cleaner Authentication Interface Message Text [facility] ACUTE CARE SURGERY H AND P Gerry Victoria [phone] Consult reason: Concern for acute cholecystitis History (HPI) Gerry Victoria is a 66 year old female with PMH of hypertension, RLS, GERD who presented to [facility] with epigastric pain with nausea and vomiting. Patient describes onset of pain on prior day that has increased since then. Shortly after onset of pain, patient experienced nausea and persistent vomiting, now unable to tolerate PO intake. Denies fevers, chills. She presented to [facility] where EKG demonstrated 'hyperacute T waves' in multiple leads without evidence of STEMI. Troponin originally 139, then 381 on repeat. CTA was performed and did not reveal dissection or PE. CT did demonstrate acute inflammation of the gallbladder with a stone at the neck. A central line was placed for resuscitation purposes and the patient was transferred to [facility] for further evaluation. Prior to transfer, lab work without leukocytosis (10.7) and LFTs/Lipase without abnormality. ACS consulted upon arrival to [facility]. PMH: HTN, RLS, GERD, Hypothyroidism, Anxiety PSH: [...] RLS, GERD who presents as transfer from [facility] with concern for acute cholecystitis alongside concurrent NSTEMI. Troponin originally 139, then 381 on repeat prior to transfer. Repeat Troponin at [facility] - 706. Cardiology consulted for evaluation who [...] impa (more content not included)... Normal The [facility] HEPATIC FUNCTION PANELon Albumin [Mass/Vol] 4.0 g/dL Normal 3.4-5.1 The [facility] Comment on above: Performed By: #### Meenu Trammell8, HEPATIC #### S [facility] [address] [place] [address], ALK 79 IU/L Normal 40-200 The [facility] Comment on above: Performed By: #### Meenu Mccormick, HEPATIC #### S [facility] [address] [place] [address], ALT [Catalytic activity/Vol] 11 U/L Normal 7-40 The [facility] Comment on above: Performed By: #### Meenu Mccormick, HEPATIC #### S [facility] [address] [place] [address], AST [Catalytic activity/Vol] 20 U/L Normal 7-40 [facility] Comment on above: Performed By: #### Meenu Mccormick, HEPATIC #### [facility] [address] [place] [address], Bilirubin [Mass/Vol] 0.6 mg/dL Normal 0.1-1.5 The [facility] Comment on above: Performed By: #### Meenu Mccormick, HEPATIC #### S [facility] [address] [place] [address], Bilirubin.direct [Mass/Vol] 0.13 mg/dL Normal 0.10-0.30 The [facility] Comment on above: Performed By: #### Meenu Mccormick, HEPATIC #### [facility] [address] [place] [address], Protein [Mass/Vol] 6.4 g/dL Normal 5.7-8.1 The [facility] Comment on above: Performed By: #### Meenu Mccormick, HEPATIC #### S [facility] [address] [place] [address], HIGH SENSITIVITY TROPONIN Io n 05-16-2022 HS TROPONIN I 319 ng/L Critically high <=15 The [facility] Comment on above: Order Comment: High Sensitivity Cardiac Troponin I (hsTnI) assay has replaced the conventional troponin assay at [facility]. All results are reported in whole numbers representing ng/L. Repeat test times for ruling out acute coronary syndrome (ACS) are every 2 hours instead of every 6-8 hours. Jjuoa-gd-kemv conventional troponin (I-stat) will remain available in the [facility] ED ??? results obtained by different labs [...] #### H STRP #### [facility] [address] [place] [address], [address] HS TROPONIN I 475 ng/L Critically high <=15 [facility] Comment on above: Order Comment: High Sensitivity Cardiac Troponin I (hsTnI) assay has replaced the conventional troponin assay at [facility].All results are reported in whole numbers representing ng/L.Repeat test times for ruling out acute coronary syndrome (ACS) are every 2 hours instead of every 6-8 hours.Salnq-jc-vgnc conventional troponin (I-stat) will remain available in the [facility] [place] ED ??? results obtained by different labs [...] value in 2 hours depending on risk bvchdoyzvg08 ng/L or greater??? concern for ACS or [...] C H8, HEPATIC #### [facility] [address] [place] [address], [address] HS TROPONIN I 433 ng/L Critically high <=15 [facility] Comment on above: Order Comment: High Sensitivity Cardiac Troponin I (hsTnI) assay has replaced the conventional troponin assay at [facility].All results are reported in whole numbers representing ng/L.Repeat test times for ruling out acute coronary syndrome (ACS) are every 2 hours instead of every 6-8 hours.Zriqy-qh-warm conventional troponin (I-stat) will remain available in the [facility] [place] ED ??? results obtained by different labs [...] value in 2 hours depending on risk qmzpubndzv01 ng/L or greater??? concern for ACS or [...] Performed By: #### H STRP ####[facility] [address] [place], [address] HS TROPONIN I 714 ng/L Critically high <=15 [facility] Comment on above: Order Comment: High Sensitivity Cardiac Troponin I (hsTnI) assay has replaced the conventional troponin assay at [facility].All results are reported in whole numbers representing ng/L.Repeat test times for ruling out acute coronary syndrome (ACS) are every 2 hours instead of every 6-8 hours.Giylu-no-mbjb conventional troponin (I-stat) will remain available in the [facility] [place] [facility] ??? results obtained by different labs [...] value in 2 hours depending on risk uqxkfmqhxa94 ng/L or greater??? concern for ACS or [...] M Yadi, CH8 #### S [facility] [address] [place] [address], [address] HS TROPONIN I 706 ng/L Critically high <=15 [facility] Comment on above: Order Comment: High Sensitivity Cardiac Troponin I (hsTnI) assay has replaced the conventional troponin assay at [facility].All results are reported in whole numbers representing ng/L.Repeat test times for ruling out acute coronary syndrome (ACS) are every 2 hours instead of every 6-8 hours.Qagui-pq-ojof conventional troponin (I-stat) will remain available in the [facility] [place] ED ??? results obtained by different labs [...] value in 2 hours depending on risk hdduwbuwkx68 ng/L or greater??? concern for ACS or [...] H8, HEPATIC #### [facility] [address] [place], [address] LACTATE WITH REPEAT EDon CR LACT 1.8 mmol/L Normal 0.5-2.0 [facility] Comment on above: Performed By: #### C H8, HEPATIC #### [facility] [address] [place], [place], PARTIAL THROMBOPLASTIN TIMEo n 05-16-2022 aPTT Coag (Bld) [Time] 55 s High 25-37 [facility] Comment on above: Performed By: #### C H8, HEPATIC #### [facility] [address] [place], [place], PROTHROMBIN TIME AND INRon 0 05-16-2022 INR Coag (PPP) [Relative time] 1.10 {INR} Normal 0.90-1.10 [facility] Comment on above: Performed By: #### C H8, HEPATIC #### [facility] [address] [place], [place], PT Coag (PPP) [Time] 12.4 s Normal 9.7-12.9 [facility] Comment on above: Performed By: #### C H8, HEPATIC #### [facility] [address] [place], [place], Procedureson 05-16-2022 Apron Cleaner Authentication Interface Message Text Transthoracic Echocardiographic Report Name: RYLIE GARRETT Interpreting LETITIA ELKINS MD Physician: : 1955 Referring JANNETH SGAE Physician: Age: 66 Tape Machine Tailer: Laina Mora [facility] Exam Date: 05/16/2022 Fellow: 11:11 AM [...] Doctor's order(s) verified. Patient's preferred language is Irish . Verbal consent for left heart echo [...] physician) on 05/16/2022 12:03 PM Normal [facility] Progress Noteson 05-16-2022 Apron Cleaner Authentication Interface Message Text [id number] notified of critical Troponin value of 475. read back critical results. New orders not received. Normal [facility] Apron Cleaner Authentication Interface Message Text [facility] DIVISION OF ACUTE CARE SURGERY ---- GENERAL INFORMATION --- EMERGENCY GENERAL SURGERY NOTE Patient Name: Gerry Victoria Admission Date: 05/16/2022 Patient seen and examined on 05/16/2022 -- INTERVAL HISTORY/EVENTS Background Narrative: Gerry Victoria is a 66 year old female with PMH of hypertension, RLS, GERD, and h/o paroxysmal SVT who presented to [facility] with epigastric pain with nausea and vomiting. Patient describes onset of pain on prior day that has increased since then. Shortly after onset of pain, patient experienced nausea and persistent vomiting, now unable to tolerate PO intake. Denies fevers, chills. She presented to [facility] where EKG demonstrated 'hyperacute T waves' in multiple leads without evidence of STEMI. Troponin originally 139, then 381 on repeat. CTA was performed and did not reveal dissection or PE. CT did demonstrate acute inflammation of the gallbladder with a stone at the neck. A central line was placed for resuscitation purposes and the patient was transferred to [facility] for further evaluation. Prior to transfer, lab work without leukocytosis (10.7) and LFTs/Lipase without abnormality. ACS consulted upon arrival to [facility] for cholecystitis. She was admitted to the SDU for telemetry under EGS. Hospital Course/Procedures: 05/16/2022: Transferred from [facility] ED with cholecystitis, up-trending troponin, and unclear [...] fr (more content not included)... Normal [facility] TYPE AND SCREENon 05-16-2022 ABO and Rh group Nom (Bld) Blood group A Rh(D) positive Normal [facility] Comment on above: Performed By: #### T S #### [facility] [address] [place] [address], ABO and Rh group Nom (Bld) No Previous Results Normal [facility] Comment on above: Performed By: #### T S #### [facility] [address] [place], [place], ABSC INT Negative Normal [facility] Comment on above: Performed By: #### T S #### [facility] [address] [place], [place], [place] LIVER/GALL BLADDER/PANCRE ASon 05-16-2022 US [...] significant biliary dilatation. MACRO: None Normal [facility] XR CHEST 1 VIEW AP OR [...] other acute process. MACRO: None Normal [facility] XR chest 1V portableon 05-16 XR chest 1V portable [facility] [place] [address] XRay Report Signed Patient: Gerry Victoria MR#: [id number] 10 : 1955 Acct:[id number] Age/Sex: 66 / F ADM Date: 05/15/22 Loc: ER Room: Type: [facility] ER Attending Dr: Copies to: Keith [...] Aditya Hodge M.D.05/16/2022 9:24 AM Dictation Location: [place] [address] Transcribed By: [facility] 05/16/22923 Dictated By: Aditya Hodge II, MD 05/16/22922 Signed By: 05/16/[address] [facility] Activated partial thrombopla stin time (aPTT) in platelet poor plasma by coagulation aOrdered By: Keith Griffith on 05-15-2022 aPTT Coag (PPP) [Time] 29.6 s 25.1-36.5 [facility] Albumin [Mass/volume] in Ser um or PlasmaOrdered By: Keith Griffith on 05-15-2022 Albumin [Mass/Vol] 4.4 g/dL 3.2-5.[address] [facility] B-Type Natriuretic Peptideon 05-15-2022 Natriuretic peptide B (Bld) [Mass/Vol] 365.0 pg/mL High 5-100 [facility] Comment on above: Result Comment: PERF ORMED BY: [facility] [address] [place] [address] PATHOLOGIST SKIRT TRIMMER WILDER BOTELLO M.D. Performed By: #### B MP, CBC, LIPASE, HEPATIC #### [facility] [address] Bacterial blood cultureOrder ed By: Keith Griffith on 05-15-2022 Bacteria identified Cx Nom (Bld) NO GROWTH 5 DAYS [facility] Basic Metabolic Panelon 04-27 Anion gap [Moles/Vol] 13.5 mmol/L Normal 6.0-15.0 [facility] Comment on above: Performed By: #### B MP, CBC, LIPASE, HEPATIC #### [facility] [address] Calcium [Mass/Vol] 8.9 mg/dL Normal 8.2-10.[address] [facility] Comment on above: Performed By: #### B MP, CBC, LIPASE, HEPATIC #### [facility] [address] [place] [address] [place] Chloride [Moles/Vol] 98 mmol/L Normal 95-114 [facility] Comment on above: Performed By: #### B MP, CBC, LIPASE, HEPATIC #### [facility] [address] [place] [address] [place] CO2 [Moles/Vol] 25.7 mmol/L Normal 22.0-30.0 [facility] Comment on above: Performed By: #### B MP, CBC, LIPASE, HEPATIC #### [facility] [address] [place] [address] [place] Creatinine [Mass/Vol] 0.98 mg/dL Normal 0.44-1.03 [facility] Comment on above: Performed By: #### B MP, CBC, LIPASE, HEPATIC #### [facility] [address] [place] [address] [place] Creatinine Clr Calc Pharmacy 51.[address] [facility] Comment on above: Performed By: #### B MP, CBC, LIPASE, HEPATIC #### [facility] [address] Estimated GFR ( Unique > [address] [facility] Comment on above: Result Comment: GFR estimated reference range: According to KDOQI guidelines, <60 ml/min/1.73m2 is sufficient to diagnose a patient with chronic kidney disease. Performed By: #### B MP, CBC, LIPASE, HEPATIC #### [facility] [address] Estimated GFR (Non- Am [address] [facility] Comment on above: Performed By: #### B MP, CBC, LIPASE, HEPATIC #### [facility] [address] Glucose [Mass/Vol] 126 mg/dL High 70-[address] [facility] Comment on above: Result Comment: Odum om Glucose Reference Range is dependent on time and content of last meal. Glucose of more than 200 mg/dL in a nonstressed, ambulatory subject supports the diagnosis of Diabetes Mellitus. ADA recommended reference range Performed By: #### B MP, CBC, LIPASE, HEPATIC #### [facility] [address] Potassium [Moles/Vol] 3.2 mmol/L Low 3.5-5.1 [facility] Comment on above: Performed By: #### B MP, CBC, LIPASE, HEPATIC #### [facility] [address] [place] [address] [place] Sodium [Moles/Vol] 134 mmol/L Low 136-[address] [facility] Comment on above: Performed By: #### B MP, CBC, LIPASE, HEPATIC #### [facility] [address] Urea nitrogen [Mass/Vol] 7 mg/dL Low 9-23 [facility] Comment on above: Performed By: #### B MP, CBC, LIPASE, HEPATIC #### [facility] [address] [place] [address] [place] Basophils Auto (Bld) [#/Vol] Ordered By: Keith Griffith on 05-15-2022 Basophils (Bld) [#/Vol] 0.1 10*3/uL 0.0-0.2 [facility] Basophils/100 WBC Auto (Bld) Ordered By: Keith Griffith on 05-15-2022 Basophils/100 WBC (Bld) 0.6 % . [facility] Bilirubin Test strip Ql (U)O rdered By: Keith Griffith on 05-15-2022 Bilirubin Ql (U) Negative Negative [facility] CT abdomen pelvis w conon CT abdomen pelvis w con [facility] Main [place] [address] [place] [address] CT Scan Report Signed Patient: Gerry Victoria MR#: [id number] 10 : 1955 Acct:[id number] Age/Sex: 66 / F ADM Date: 05/15/22 Loc: ER Room: Type: [facility] ER Attending Dr: Copies to: [...] ? Impression dictated by: Nicholas Ann Jr., D.OJack05/15/2022 6:59 PM Dictation Location: [place] [address] Transcribed By: [facility] 05/15/221858 Dictated By: Nicholas Ann Jr, DO 05/15/221854 Signed By: 05/15/221858 Normal [facility] Color Auto (U)Ordered By: Jesse Griffith on 05-15-2022 Color (U) Yellow Yellow [facility] Complete Blood Count Auto Di ffon 05-15-2022 Basophils (Bld) [#/Vol] 0.1 10*3/uL Normal 0.0-0.2 [facility] Comment on above: Result Comment: PERF ORMED BY: [place] [address] PATHOLOGIST SK[employer] TRIMMER WILDER BOTELLO M.D. Performed By: #### B MP, CBC, LIPASE, HEPATIC #### [facility] [address] [place] [address] Basophils/100 WBC (Bld) 0.6 % Normal . [facility] Comment on above: Performed By: #### B MP, CBC, LIPASE, HEPATIC #### [place] [address] [place] Eosinophils (Bld) [#/Vol] 0.0 10*3/uL Normal 0.0-0.45 [facility] Comment on above: Performed By: #### B MP, CBC, LIPASE, HEPATIC #### [address] Eosinophils/100 WBC (Bld) 0.3 % Normal . [facility] Comment on above: Performed By: #### B MP, CBC, LIPASE, HEPATIC #### [address] Erythrocyte distribution width (RBC) [Ratio] 15.2 % Normal 11.9-15.3 [facility] Comment on above: Performed By: #### B MP, CBC, LIPASE, HEPATIC #### [address] Hematocrit (Bld) [Volume fraction] 42.8 % Normal 34.0-46.4 [facility] Comment on above: Performed By: #### B MP, CBC, LIPASE, HEPATIC #### [address] Hemoglobin (Bld) [Mass/Vol] 14.1 g/dL Normal 11.8-15.4 [facility] Comment on above: Performed By: #### B MP, CBC, LIPASE, HEPATIC #### [address] Lymphocytes (Bld) [#/Vol] 0.9 10*3/uL Low 1.00-4.8 [facility] Comment on above: Performed By: #### B MP, CBC, LIPASE, HEPATIC #### [address] Lymphocytes/100 WBC (Bld) 8.6 % Normal . [facility] Comment on above: Performed By: #### B MP, CBC, LIPASE, HEPATIC #### [address] MCH (RBC) [Entitic mass] 27.4 pg Normal 24.7-34.3 [facility] Comment on above: Performed By: #### B MP, CBC, LIPASE, HEPATIC #### [address] MCV (RBC) [Entitic vol] 83.0 fL Normal 80-100 [facility] Comment on above: Performed By: #### B MP, CBC, LIPASE, HEPATIC #### [address] Mean Corpuscular HGB Conc 33.0 g/dL Normal 32.0-35.0 [facility] Comment on above: Performed By: #### B MP, CBC, LIPASE, HEPATIC #### [address] Monocytes (Bld) [#/Vol] 0.5 10*3/uL Normal 0.0-0.8 [facility] Comment on above: Performed By: #### B MP, CBC, LIPASE, HEPATIC #### [address] Monocytes/100 WBC (Bld) 15.42 % Normal 0.00-20.00 [facility] Comment on above: Performed By: #### B MP, CBC, LIPASE, HEPATIC #### [address] Monocytes/100 WBC (Bld) 4.2 % Normal . [facility] Comment on above: Performed By: #### B MP, CBC, LIPASE, HEPATIC #### [address] Neutrophils (Bld) [#/Vol] 9.3 10*3/uL High 1.8-7.7 [facility] Comment on above: Performed By: #### B MP, CBC, LIPASE, HEPATIC #### [address] Neutrophils/100 WBC (Bld) 86.3 % Normal . [facility] Comment on above: Performed By: #### B MP, CBC, LIPASE, HEPATIC #### [address] NRBC% 0.1 /100{WBC} Normal 0-0.5 [facility] Comment on above: Performed By: #### B MP, CBC, LIPASE, HEPATIC #### [facility] [address] Platelet mean volume (Bld) [Entitic vol] 7.6 fL Normal 6.3-10.7 [facility] Comment on above: Performed By: #### B MP, CBC, LIPASE, HEPATIC #### [facility] [address] Platelets (Bld) [#/Vol] 332 10*3/uL Normal 150-450 [facility] Comment on above: Performed By: #### B MP, CBC, LIPASE, HEPATIC #### [facility] [address] RBC (Bld) [#/Vol] 5.16 10*6/uL High 3.60-5.00 [facility] Comment on above: Performed By: #### B MP, CBC, LIPASE, HEPATIC #### [address] WBC (Bld) [#/Vol] 10.7 10*3/uL Normal 3.8-11.6 [facility] Comment on above: Performed By: #### B MP, CBC, LIPASE, HEPATIC #### [address] Creatine Kinaseon 05-15-2022 CK [Catalytic activity/Vol] 94 U/L Normal 22-269 [facility] Comment on above: Performed By: #### B MP, CBC, LIPASE, HEPATIC #### [address] Creatine kinase [Enzymatic a ctivity/volume] in Serum or PlasmaOrdered By: Keith Griffith on 05-15-2022 CK [Catalytic activity/Vol] 94 U/L 22-269 [facility] Creatine kinase.MB [Mass/vol ume] in Serum or PlasmaOrdered By: Keith Griffith on 05-15-2022 CK.MB [Mass/Vol] 3.1 ng/mL 0.6-6.3 [facility] Creatinine Kinase MBon 05-15 CK.MB [Mass/Vol] 3.1 ng/mL Normal 0.6-6.3 [facility] Comment on above: Performed By: #### B MP, CBC, LIPASE, HEPATIC #### [facility] [address] CKMB Relative Index 3.2 % High 0.00-2.50 [facility] Comment on above: Performed By: #### B MP, CBC, LIPASE, HEPATIC #### [facility] [address] Creatinine and Glomerular fi ltration rate.predicted panel (S/P/Bld)Ordered By: Keith Griffith on 05-15-2022 Creatinine [Mass/Vol] 0.98 mg/dL 0.44-1.03 [facility] Direct bilirubin measurement Ordered By: Keith Griffith on 05-15-2022 Bilirubin.direct [Mass/Vol] 0.1 mg/dL 0.0-0.4 [facility] ECG 12 lead ECGon 05-15-2022 ECG 12 lead ECG [facility] Main [place] [address] [place] [address] Electrocardiograph Report Signed Patient: Gerry Victoria MR#: [id number] 10 : 1955 Acct:[id number] Age/Sex: 66 / F ADM Date: 05/15/22 Loc: ER Room: Type: [facility] ER Attending Dr: Ordering Provider: Keith [...] AVF, V3-V6 Confirmed by Connie Cote DO ([id number]) on 05/16/2022 7:08:50 AM Referred By: Electronically Signed By:Connie Cote DO Transcribed By: MUS Signed By Connie Cote DO [address] [facility] ECG 12 lead ECG [facility] [place] [address] Electrocardiograph Report Signed Patient: Gerry Victoria MR#: [id number] 10 : 1955 Acct:[id number] Age/Sex: 66 / F ADM Date: 05/15/22 Loc: ER Room: Type: [facility] ER Attending Dr: Ordering Provider: Keith [...] and V3-V6 Confirmed by Connie Cote DO ([id number]) on 05/16/2022 7:09:34 AM Referred By: Electronically Signed By:Connie Cote DO Transcribed By: MUS Signed By Connie Cote DO [address] [facility] ECG 12 lead ECG [facility] Main [place] [id number] Electrocardiograph Report Signed Patient: Gerry Victoria MR#: [id number] 10 : 1955 Acct:[id number] Age/Sex: 66 / F ADM Date: 05/15/22 Loc: ER Room: Type: [facility] ER Attending Dr: Ordering Provider: Keith [...] sinus rhythm Confirmed by Connie Cote DO ([id number]) on 05/16/2022 7:09:47 AM Referred By: Electronically Signed By:Connie Cote DO Transcribed By: MUS Signed By Connie Cote DO 0709 Normal [facility] Eosinophils Auto (Bld) [#/Vo l]Ordered By: Keith Griffith on 05-15-2022 Eosinophils (Bld) [#/Vol] 0.0 10*3/uL 0.0-0.45 [facility] Eosinophils/100 WBC Auto (Bl d)Ordered By: Keith Griffith on 05-15-2022 Eosinophils/100 WBC (Bld) 0.3 % . [facility] Erythrocyte distribution wid th Auto (RBC) [Ratio]Ordered By: Keith Griffith on 05-15-2022 Erythrocyte distribution width (RBC) [Ratio] 15.2 % 11.9-15.3 [facility] Estimated glomerular filtrat ion rate (GFR) non- AmericanOrdered By: Keith Griffith on 05-15-2022 GFR/1.73 sq M.predicted among non-blacks MDRD (S/P/Bld) [Vol rate/Area] 56 mL/Min [facility] Globulin Calc (S) [Mass/Vol] Ordered By: Keith Griffith on 05-15-2022 Globulin (S) [Mass/Vol] 3.6 g/dL [facility] Hematocrit Auto (Bld) [Volum e fraction]Ordered By: Keith Griffith on 05-15-2022 Hematocrit (Bld) [Volume fraction] 42.8 % 34.0-46.4 [facility] Hemoglobin [Mass/volume] in BloodOrdered By: Keith Griffith on 05-15-2022 Hemoglobin (Bld) [Mass/Vol] 14.1 g/dL 11.8-15.4 [facility] Hepatic Panelon 05-15-2022 Albumin [Mass/Vol] 4.4 g/dL Normal 3.2-5.[address] [facility] Comment on above: Performed By: #### B MP, CBC, LIPASE, HEPATIC #### [facility] [address] [place] [address] Albumin/Globulin [Mass ratio] 1.2 {ratio} Normal [facility] Comment on above: Performed By: #### B MP, CBC, LIPASE, HEPATIC #### [address] ALP [Catalytic activity/Vol] 92 U/L Normal 32-92 [facility] Comment on above: Performed By: #### B MP, CBC, LIPASE, HEPATIC #### [facility] [address] [place] [address] ALT [Catalytic activity/Vol] 17 U/L Normal 10-60 [facility] Comment on above: Performed By: #### B MP, CBC, LIPASE, HEPATIC #### [address] AST [Catalytic activity/Vol] 26 U/L Normal 10-42 [facility] Comment on above: Performed By: #### B MP, CBC, LIPASE, HEPATIC #### [address] Bilirubin [Mass/Vol] 0.6 mg/dL Normal 0.3-1.2 [facility] Comment on above: Performed By: #### B MP, CBC, LIPASE, HEPATIC #### [address] Bilirubin,Indirect 0.5 mg/dL Normal [facility] Comment on above: Performed By: #### B MP, CBC, LIPASE, HEPATIC #### [facility] [address] [place] [address] Bilirubin.indirect [Mass/Vol] 0.1 mg/dL Normal 0.0-0.4 [facility] Comment on above: Performed By: #### B MP, CBC, LIPASE, HEPATIC #### [facility] [address] [place] [address] Globulin (S) [Mass/Vol] 3.6 g/dL Normal [facility] Comment on above: Performed By: #### B MP, CBC, LIPASE, HEPATIC #### [facility] [address] [place] [address] [place] Protein [Mass/Vol] 8.0 g/dL High 6.1-7.[address] [facility] Comment on above: Performed By: #### B MP, CBC, LIPASE, HEPATIC #### [facility] [address] Ketones Auto test strip (U) [Mass/Vol]Ordered By: Keith Griffith on 05-15-2022 Ketones (U) [Mass/Vol] Negative Negative [facility] - Chemistry and C hemistry - challengeOrdered By: Keith Griffith on 05-15-2022 Lipase [Catalytic activity/Vol] 23.0 U/L [facility] Natriuretic peptide B (Bld) [Mass/Vol] 365.0 pg/mL 5100 [facility] Laboratory - CoagulationOrde red By: Keith Griffith on 05-15-2022 PT Coag (PPP) [Time] 10.7 s 9.0-12.9 [facility] Lactic Acidon 05-15-2022 Lactate [Moles/Vol] 1.5 mmol/L Normal 0.5-2.2 [facility] Comment on above: Result Comment: PERF ORMED BY: [place] [address] PATHOLOGIST SK[employer]IMMER WILDER BOTELLO M.D. Performed By: #### B MP, CBC, LIPASE, HEPATIC #### [facility] [address] [place] [address] [place] Leukocytes [#/volume] correc poly for nucleated erythrocytes in Blood by Automated counOrdered By: Keith Griffith on 05-15-2022 WBC corrected for nucl RBC Auto (Bld) [#/Vol] 10.7 10*3/uL 3.8-11.6 [facility] Lipaseon 05-15-2022 Lipase [Catalytic activity/Vol] 23.0 U/L Normal [facility] Comment on above: Result Comment: PERF ORMED BY: [facility] [address] [place] [address] PATHOLOGIST SK[employer] TRIMMER WILDER BOTELLO M.D. Performed By: #### B MP, CBC, LIPASE, HEPATIC #### [facility] [address] Lymphocytes Auto (Bld) [#/Vo l]Ordered By: Keith Griffith on 05-15-2022 Lymphocytes (Bld) [#/Vol] 0.9 10*3/uL 1.00-4.8 [facility] Lymphocytes/100 WBC Auto (Bl d)Ordered By: Keith Griffith on 05-15-2022 Lymphocytes/100 WBC (Bld) 8.6 % . [facility] MCH Auto (RBC) [Entitic mass ]Ordered By: Keith Griffith on 05-15-2022 MCH (RBC) [Entitic mass] 27.4 pg 24.7-34.3 [facility] MCHC Auto (RBC) [Mass/Vol]Or dered By: Keith Griffith on 05-15-2022 MCHC (RBC) [Mass/Vol] 33.0 g/dL 32.0-35.0 [facility] MCV Auto (RBC) [Entitic vol] Ordered By: Keith Griffith on 05-15-2022 MCV (RBC) [Entitic vol] 83.0 fL 80-100 [facility] Monocyte distribution width [Entitic volume] in Blood by AutomatedOrdered By: Keith Griffith on 05-15-2022 Monocyte distribution width Auto (Bld) [Entitic vol] 15.42 % 0.00-20.00 [facility] Monocytes Auto (Bld) [#/Vol] Ordered By: Keith Griffith on 05-15-2022 Monocytes (Bld) [#/Vol] 0.5 10*3/uL 0.0-0.8 [facility] Monocytes/100 WBC Auto (Bld) Ordered By: Keith Griffith on 05-15-2022 Monocytes/100 WBC (Bld) 4.2 % . [facility] Neutrophils Auto (Bld) [#/Vo l]Ordered By: Keith Griffith on 05-15-2022 Neutrophils (Bld) [#/Vol] 9.3 10*3/uL 1.8-7.7 [facility] Neutrophils/100 WBC Auto (Bl d)Ordered By: Keith Griffith on 05-15-2022 Neutrophils/100 WBC (Bld) 86.3 % . [facility] Nitrite Test strip Ql (U)Ord ered By: Keith Griffith on 05-15-2022 Nitrite Ql (U) Negative Negative [facility] No Panel InformationOrdered By: Keith Griffith on 05-15-2022 Estimated GFR () > 60 mL/Min [facility] Comment on above: GFR estimated refere nce range: According to KDOQI guidelines, <60 ml/min/1.73m2 is sufficient to diagnose a patient with chronic kidney disease. Pharmacy Creatinine Clearance (Chem 51.97 [facility] Nucleated erythrocytes [Pres ence] in Blood by Automated countOrdered By: Keith Griffith on 05-15-2022 Nucleated RBC Auto Ql (Bld) 0.1 /100{WBC} 0-0.5 [facility] Partial Thromboplastin Timeo n 05-15-2022 aPTT Coag (Bld) [Time] 29.6 s Normal 25.1-36.5 [facility] Comment on above: Result Comment: PERF ORMED BY: [place] [address] PATHOLOGIST SKIRT TRIMMER WILDER BOTELLO M.D. Performed By: #### B MP, CBC, LIPASE, HEPATIC #### [address] Platelet mean volume Auto (B ld) [Entitic vol]Ordered By: Keith Griffith on 05-15-2022 Platelet mean volume (Bld) [Entitic vol] 7.6 fL 6.3-10.7 [facility] Platelet poor plasma interna tional normalized ratio (INR) by coagulation assay (relatOrdered By: Keith Griffith on 05-15-2022 INR Coag (PPP) [Relative time] 0.9 {INR} [facility] Comment on above: INR Therapeutic Rang [...] Platelets (Bld) [#/Vol] 332 10*3/uL 150-450 [facility] Protein Auto test strip (U) [Mass/Vol]Ordered By: Keith Griffith on 05-15-2022 Protein (U) [Mass/Vol] Negative Negative [facility] Protein [Mass/volume] in Ser um or PlasmaOrdered By: Keith Griffith on 05-15-2022 Protein [Mass/Vol] 8.0 g/dL 6.1-7.[address] [facility] Prothrombin Time INRon 05-15 INR Coag (PPP) [Relative time] 0.9 {INR} Normal [facility] Comment on above: Result Comment: INR [...] #### B MP, CBC, LIPASE, HEPATIC #### [facility] [address] PT Coag (PPP) [Time] 10.7 s Normal 9.0-12.9 [facility] Comment on above: Performed By: #### B MP, CBC, LIPASE, HEPATIC #### [facility] [address] RBC Auto (Bld) [#/Vol]Ordere d By: Keith Griffith on 05-15-2022 RBC (Bld) [#/Vol] 5.16 10*6/uL 3.60-5.00 [facility] Serum or plasma alanine kirkpatrick otransferase measurement without P-5'-P (enzymatic activiOrdered By: Keith Griffith on 05-15-2022 ALT No additional P-5'-P [Catalytic activity/Vol] 17 U/L 10-60 [facility] Serum or plasma albumin/glob ulin mass ratioOrdered By: Keith Griffith on 05-15-2022 Albumin/Globulin [Mass ratio] 1.2 {ratio} [facility] Serum or plasma alkaline kami sphatase measurement (enzymatic activity/volume)Ordered By: Keith Griffith on 05-15-2022 ALP [Catalytic activity/Vol] 92 U/L 32-92 [facility] Serum or plasma anion gap de terminationOrdered By: Keith Griffith on 05-15-2022 Anion gap [Moles/Vol] 13.5 mmol/L 6.0-15.0 [facility] Serum or plasma aspartate am inotransferase measurement (enzymatic activity/volume)Ordered By: Keith Griffith on 05-15-2022 AST [Catalytic activity/Vol] 26 U/L 10-42 [facility] Serum or plasma calcium ventura urement (mass/volume)Ordered By: Keith Griffith on 05-15-2022 Calcium [Mass/Vol] 8.9 mg/dL 8.2-10.[address] [facility] Serum or plasma chloride alfie surement (moles/volume)Ordered By: Keith Griffith on 05-15-2022 Chloride [Moles/Vol] 98 mmol/L 95-114 [facility] Serum or plasma creatine kin ase MB (CKMB)/total creatine kinase (CK) ratio by calculaOrdered By: Keith Griffith on 05-15-2022 CK.MB Calc [Catalytic fraction] 3.2 % 0.00-2.50 [facility] Serum or plasma glucose ventura urement (mass/volume)Ordered By: Keith Griffith on 05-15-2022 Glucose [Mass/Vol] 126 mg/dL 70-[address] [facility] Comment on above: ADA recommended refe rence rangeRandom Glucose Reference Range is dependent on time and content of last meal. Glucose of more than 200 mg/dL in a nonstressed, ambulatory subject supports the diagnosis of Diabetes Mellitus. Serum or plasma non-glucuron idated bilirubin measurement (mass/volume)Ordered By: Keith Griffith on 05-15-2022 Bilirubin.indirect [Mass/Vol] 0.5 mg/dL [facility] Serum or plasma potassium me asurement (moles/volume)Ordered By: Keith Griffith on 02-19-2023 Potassium [Moles/Vol] 3.2 mmol/L 3.5-5.1 [facility] Serum or plasma sodium measu rement (moles/volume)Ordered By: Keith Griffith on 05-15-2022 Sodium [Moles/Vol] 134 mmol/L 136-[address] [facility] Serum or plasma total biliru bin measurement (mass/volume)Ordered By: Keith Griffith on 05-15-2022 Bilirubin [Mass/Vol] 0.6 mg/dL 0.3-1.2 [facility] Serum or plasma total carbon dioxide measurement (moles/volume)Ordered By: Keith Griffith on 05-15-2022 CO2 [Moles/Vol] 25.7 mmol/L 22.0-30.0 [facility] Serum or plasma urea nitroge n measurement (mass/volume)Ordered By: Keith Griffith on 05-15-2022 Urea nitrogen [Mass/Vol] 7 mg/dL 9-23 [facility] Specific gravity Auto test s trip (U) [Rel density]Ordered By: Keith Griffith on 05-15-2022 Specific gravity (U) [Rel density] 1.045 1.001-1.03 0 [facility] Troponin I High Sensitivityo n 05-15-2022 Troponin I High Sensitivity 381 pg/mL Off scale high 0-15 [facility] Comment on above: Result Comment: Crit ical value result called at 2153 on 05/15/22 PERFORMED BY: [place] [address] PATHOLOGIST SK[employer] TRIMMER WILDER BOTELLO M.D. Performed By: #### H S TROP #### [facility] [address] [place], [place] [id number] [facility] Troponin I High Sensitivity 139 pg/mL Off scale high 0-15 [facility] Comment on above: Result Comment: Crit ical value result called at 1908 on 05/15/22 PERFORMED BY: [place] [address] PATHOLOGIST SKIRT TRIMMER WILDER BOTELLO M.D. Performed By: #### B MP, CBC, LIPASE, HEPATIC #### [facility] [address] Troponin I.cardiac [Mass/vol ume] in Serum or Plasma by High sensitivity methodOrdered By: Keith Griffith on 05-15-2022 Troponin I.cardiac High sensitivity method [Mass/Vol] 381 pg/mL 0-15 [facility] Comment on above: Critical valueresult calledat 2153 on 05/15/22 Urinalysison 05-15-2022 Appearance (U) Clear Normal Clear [facility] Comment on above: Order Comment: Name Collection Type:: Straight Catheter Performed By: #### B MP, CBC, LIPASE, HEPATIC #### [facility] [address] [place] [address] [place] Bilirubin,Urine Negative Normal Negative [facility] Comment on above: Order Comment: Name Collection Type:: Straight Catheter Performed By: #### B MP, CBC, LIPASE, HEPATIC #### [facility] [address] [place] [address] [place] Color (U) Yellow Normal Yellow [facility] Comment on above: Order Comment: Name Collection Type:: Straight Catheter Performed By: #### B MP, CBC, LIPASE, HEPATIC #### [facility] [address] [place] [address] [place] Glucose Ql (U) Normal Normal Normal [facility] Comment on above: Order Comment: Name Collection Type:: Straight Catheter Performed By: #### B MP, CBC, LIPASE, HEPATIC #### [facility] [address] [place] [address] [place] Ketones Ql (U) Negative Normal Negative [facility] Comment on above: Order Comment: Name Collection Type:: Straight Catheter Performed By: #### B MP, CBC, LIPASE, HEPATIC #### [facility] [address] [place], [place] [id number] [place] Leukocyte esterase Test strip Ql (U) Negative Normal Negative [facility] Comment on above: Order Comment: Name Collection Type:: Straight Catheter Performed By: #### B MP, CBC, LIPASE, HEPATIC #### [facility] [address] [place] [id number] [place] Nitrite,Urine Negative Normal Negative [facility] Comment on above: Order Comment: Name Collection Type:: Straight Catheter Performed By: #### B MP, CBC, LIPASE, HEPATIC #### [address] Occult Blood,Urine Negative Normal Negative [facility] Comment on above: Order Comment: Name Collection Type:: Straight Catheter Result Comment: PERF ORMED BY: [place] [address] PATHOLOGIST SKIRT TRIMMER WILDER BOTELLO M.D. Performed By: #### B MP, CBC, LIPASE, HEPATIC #### [address] pH (U) 7.0 [pH] Normal 5.0-9.0 [facility] Comment on above: Order Comment: Name Collection Type:: Straight Catheter Performed By: #### B MP, CBC, LIPASE, HEPATIC #### [address] Protein,Urine Negative Normal Negative [facility] Comment on above: Order Comment: Name Collection Type:: Straight Catheter Performed By: #### B MP, CBC, LIPASE, HEPATIC #### [address] Specificy [place],Urine 1.045 High 1.001-1.03 0 [facility] Comment on above: Order Comment: Name Collection Type:: Straight Catheter Performed By: #### B MP, CBC, LIPASE, HEPATIC #### [address] Urobilinogen,Urine Normal Normal Normal [facility] Comment on above: Order Comment: Name Collection Type:: Straight Catheter Performed By: #### B MP, CBC, LIPASE, HEPATIC #### [address] Urine clarity by refractomet ry automatedOrdered By: Keith Griffith on 05-15-2022 Clarity Refractometry automated (U) Clear Clear [facility] Urine glucose measurement by automated test strip (mass/volume)Ordered By: Keith Griffith on 05-15-2022 Glucose Auto test strip (U) [Mass/Vol] Normal mg/dL Normal [facility] Urine hemoglobin detection b y automated test stripOrdered By: Keith Griffith on 05-15-2022 Hemoglobin Auto test strip Ql (U) Negative Negative [facility] Urine lactic acid measuremen tOrdered By: Keith Griffith on 05-15-2022 Lactate (U) [Moles/Vol] 1.5 mmol/L 0.5-2.2 [facility] Urine leukocyte esterase det ection by automated test stripOrdered By: Keith Griffith on 05-15-2022 Leukocyte esterase Auto test strip Ql (U) Negative Negative [facility] Urobilinogen Auto test strip (U) [Mass/Vol]Ordered By: Keith Griffith on 05-15-2022 Urobilinogen (U) [Mass/Vol] Normal mg/dL Normal [facility] WBC Auto (Bld) [#/Vol]Ordere d By: Keith Griffith on 05-15-2022 WBC (Bld) [#/Vol] 10.7 10*3/uL 3.8-11.6 [facility] XR chest 1V portableon 05-15 XR chest 1V portable [facility] [place] [address] XRay Report Signed Patient: Gerry Victoria MR#: [id number] 10 : 1955 Acct:[id number] Age/Sex: 66 / F ADM Date: 05/15/22 [...] Ann Jr., D.OJack05/15/2022 5:33 PM Dictation Location: [place] [address] Transcribed By: [facility] 05/15/221732 Dictated By: Nicholas Ann Jr, DO 05/15/221731 Signed By: 05/15/221732 [facility] pH Auto test strip (U)Ordere d By: Keith Griffith on 05-15-2022 pH (U) 7.0 [pH] 5.0-9.0 [facility] XR wrist LT min 3V*on 2022 XR wrist LT min 3V* [facility] [place] [address] XRay Report Signed Patient: Gerry Victoria MR#: [id number] 10 : 1955 Acct:[id number] Age/Sex: 66 / F ADM Date: 04/06/22 Loc: ICXD Room: Type: [facility] Attending Dr: Ephraim Casanova APRN Copies to: Ephraim Casanova APRN - ER EPHRAIM CASANOVA RN, MSN Ordering Provider: EPHRAIM CASANOVA RN, MSN Date of Service: 04/06/22 XR/XR wrist LT min 3V*: radiculopathy;Left wrist pain ([id number]) XR/XR cervical spine 5V*: radiculopathy;Cervical radiculopathy CERVICAL [...] Ann Jr., D.O.04/06/2022 4:20 PM Dictation Location: [place] [address] Transcribed By: [facility] 04/06/22 162 Dictated By: Nicholas Ann Jr, 04/06/22 1618 Signed By: 04/06/[address] [facility] Basophils Auto (Bld) [#/Vol] Ordered By: Ward Zuniga on 01-03-2022 Basophils (Bld) [#/Vol] 0.0 10*3/uL 0.0-0.2 [facility] Basophils/100 WBC Auto (Bld) Ordered By: Ward Zuniga on 01-03-2022 Basophils/100 WBC (Bld) 0.9 % . [facility] Blood hemoglobin measurement (mass/volume)Ordered By: Ward Zuniga on 01-03-2022 Hemoglobin (Bld) [Mass/Vol] 11.2 g/dL 11.8-15.4 [facility] Blood leukocytes automated c ount (number/volume)Ordered By: Ward Zuniga on 01-03-2022 WBC (Bld) [#/Vol] 4.8 10*3/uL 4.5-11.[address] [facility] Body fluid albumin measureme nt (mass/volume)Ordered By: Ward Zuniga on 01-03-2022 Albumin (Body fld) [Mass/Vol] 3.6 g/dL 3.2-5.5 [facility] Cholesterol [Mass/volume] in Serum or PlasmaOrdered By: Ward Zuniga on 01-03-2022 Cholesterol [Mass/Vol] 186 mg/dL 140-200 [facility] Comment on above: Chol less than 200 m g/dl low riskChol 201-239 mg/dl borderline riskChol 240 mg/dl and greater high risk Cholesterol in LDL Calc [Mas s/Vol]Ordered By: Ward Zuniga on 01-03-2022 Cholesterol in LDL [Mass/Vol] 117 mg/dL 0-100 [facility] Comment on above: LDL ATP III CLASSIFI CATIONLDL less than 100 mg/dL OptimalLDL 100-129 mg/dL Near or above optimalLDL 130-159 mg/dL Borderline highLDL 160-189 mg/dL HighLDL greater than 189 mg/dL Very high Cholesterol in VLDL Calc [Ma ss/Vol]Ordered By: Ward Zuniga on 01-03-2022 Cholesterol in VLDL [Mass/Vol] 18 mg/dL [facility] Creatinine and Glomerular fi ltration rate.predicted panel (S/P/Bld)Ordered By: Ward Zuniga on 01-03-2022 Creatinine [Mass/Vol] 0.91 mg/dL 0.44-1.03 [facility] Eosinophils Auto (Bld) [#/Vo l]Ordered By: Ward Zuniga on 01-03-2022 Eosinophils (Bld) [#/Vol] 0.1 10*3/uL 0.0-0.45 [facility] Eosinophils/100 WBC Auto (Bl d)Ordered By: Ward Zuniga on 01-03-2022 Eosinophils/100 WBC (Bld) 2.6 % . [facility] Erythrocyte distribution wid th Auto (RBC) [Ratio]Ordered By: Ward Zuniga on 01-03-2022 Erythrocyte distribution width (RBC) [Ratio] 14.4 % 11.9-15.3 [facility] Estimated glomerular filtrat ion rate (GFR) non- AmericanOrdered By: Ward Zuniga on 01-03-2022 GFR/1.73 sq M.predicted among non-blacks MDRD (S/P/Bld) [Vol rate/Area] > 60 mL/Min [facility] Globulin Calc (S) [Mass/Vol] Ordered By: Ward Zuniga on 01-03-2022 Globulin (S) [Mass/Vol] 2.5 g/dL [facility] Hematocrit Auto (Bld) [Volum e fraction]Ordered By: Ward Zuniga on 01-03-2022 Hematocrit (Bld) [Volume fraction] 34.5 % 34.0-46.4 [facility] Laboratory - Hematology and Cell countsOrdered By: Ward Zuniga on 01-03-2022 Nucleated RBC/100 WBC (Bld) [Ratio] 0.1 % 0-0.5 [facility] Lymphocytes Auto (Bld) [#/Vo l]Ordered By: Ward Zuniga on 01-03-2022 Lymphocytes (Bld) [#/Vol] 1.6 10*3/uL 1.00-4.8 [facility] Lymphocytes/100 WBC Auto (Bl d)Ordered By: Ward Zuniga on 01-03-2022 Lymphocytes/100 WBC (Bld) 33.6 % . [facility] MCH Auto (RBC) [Entitic mass ]Ordered By: Ward Zuniga on 01-03-2022 MCH (RBC) [Entitic mass] 26.9 pg 24.7-34.3 [facility] MCHC Auto (RBC) [Mass/Vol]Or dered By: Ward Zuniga on 01-03-2022 MCHC (RBC) [Mass/Vol] 32.6 g/dL 32.0-35.0 [facility] MCV Auto (RBC) [Entitic vol] Ordered By: Ward Zuniga on 01-03-2022 MCV (RBC) [Entitic vol] 82.4 fL 80-100 [facility] Monocytes Auto (Bld) [#/Vol] Ordered By: Ward Zuniga on 01-03-2022 Monocytes (Bld) [#/Vol] 0.4 10*3/uL 0.0-0.8 [facility] Monocytes/100 WBC Auto (Bld) Ordered By: Ward Zuniga on 01-03-2022 Monocytes/100 WBC (Bld) 7.5 % . [facility] Neutrophils Auto (Bld) [#/Vo l]Ordered By: Ward Zuniga on 01-03-2022 Neutrophils (Bld) [#/Vol] 2.6 10*3/uL 1.8-7.7 [facility] Neutrophils/100 WBC Auto (Bl d)Ordered By: Ward Zuniga on 01-03-2022 Neutrophils/100 WBC (Bld) 55.4 % . [facility] No Panel InformationOrdered By: Ward Zuniga on 01-03-2022 Estimated GFR () > 60 mL/Min [facility] Comment on above: GFR estimated refere nce range: According to KDOQI guidelines, <60 ml/min/1.73m2 is sufficient to diagnose a patient with chronic kidney disease. Pharmacy Creatinine Clearance (Chem N/A [facility] Platelet mean volume Auto (B ld) [Entitic vol]Ordered By: Ward Zuniga on 01-03-2022 Platelet mean volume (Bld) [Entitic vol] 7.5 fL 6.3-10.7 [facility] Platelets Auto (Bld) [#/Vol] Ordered By: Ward Zuniga on 01-03-2022 Platelets (Bld) [#/Vol] 288 10*3/uL 150-450 [facility] Protein [Mass/volume] in Ser um or PlasmaOrdered By: Ward Zuniga on 01-03-2022 Protein [Mass/Vol] 6.1 g/dL 6.1-7.[address] [facility] RBC Auto (Bld) [#/Vol]Ordere d By: Ward Zuniga on 01-03-2022 RBC (Bld) [#/Vol] 4.18 10*6/uL 3.60-5.00 [facility] Serum or plasma alanine kirkpatrick otransferase measurement without P-5'-P (enzymatic activiOrdered By: Ward Zuniga on 01-03-2022 ALT No additional P-5'-P [Catalytic activity/Vol] 12 U/L [facility] Serum or plasma albumin/glob ulin mass ratioOrdered By: Ward Zuniga on 01-03-2022 Albumin/Globulin [Mass ratio] 1.4 {ratio} [facility] Serum or plasma alkaline kami sphatase measurement (enzymatic activity/volume)Ordered By: Ward Zuniga on 01-03-2022 ALP [Catalytic activity/Vol] 65 U/L 32-92 [facility] Serum or plasma anion gap de terminationOrdered By: Ward Zuniga on 01-03-2022 Anion gap [Moles/Vol] 15.0 mmol/L 6.0-15.0 [facility] Serum or plasma aspartate am inotransferase measurement (enzymatic activity/volume)Ordered By: Ward Zuniga on 01-03-2022 AST [Catalytic activity/Vol] 16 U/L 10 [facility] Serum or plasma calcium ventura urement (mass/volume)Ordered By: Ward Zuniga on 01-03-2022 Calcium [Mass/Vol] 8.9 mg/dL 8.2-10.[address] [facility] Serum or plasma chloride alfie surement (moles/volume)Ordered By: Ward Zuniga on 01-03-2022 Chloride [Moles/Vol] 101 mmol/L 95-114 [facility] Serum or plasma glucose ventura urement (mass/volume)Ordered By: Ward Zuniga on 01-03-2022 Glucose [Mass/Vol] 86 mg/dL 70-[address] [facility] Comment on above: ADA recommended refe rence rangeRandom Glucose Reference Range is dependent on time and content of last meal. Glucose of more than 200 mg/dL in a nonstressed, ambulatory subject supports the diagnosis of Diabetes Mellitus. Serum or plasma high density lipoprotein (HDL) cholesterol measurementOrdered By: Ward Zuniga on 01-03-2022 Cholesterol in HDL [Mass/Vol] 51 mg/dL 35-85 [facility] Comment on above: HDL CHOL ATP-III CLA SSIFICATION Cardiovascular RiskHDL > or equal to 60 mg/dL LOWHDL < 40 mg/dL HIGH Serum or plasma potassium me asurement (moles/volume)Ordered By: Ward Zuniga on 01-03-2022 Potassium [Moles/Vol] 4.0 mmol/L 3.5-5.1 [facility] Serum or plasma sodium measu rement (moles/volume)Ordered By: Ward Zuniga on 01-03-2022 Sodium [Moles/Vol] 140 mmol/L 136-[address] [facility] Serum or plasma total biliru bin measurement (mass/volume)Ordered By: Ward Zuniga on 01-03-2022 Bilirubin [Mass/Vol] 0.5 mg/dL 0.3-1.2 [facility] Serum or plasma total carbon dioxide measurement (moles/volume)Ordered By: Ward Zuniga on 01-03-2022 CO2 [Moles/Vol] 28.0 mmol/L 22.0-30.0 [facility] Serum or plasma total choles terol/high density lipoprotein (HDL) cholesterol mass ratOrdered By: Ward Zuniga on 01-03-2022 Cholesterol.total/Chol esterol in HDL [Mass ratio] 3.6 {ratio} <5.0 [facility] Serum or plasma urea nitroge n measurement (mass/volume)Ordered By: Ward Zuniga on 01-03-2022 Urea nitrogen [Mass/Vol] 6 mg/dL 9- [facility] TSH DL <= 0.005 mIU/L QnOrde red By: Ward Zuniga on 01-03-2022 TSH Qn 0.17 m[IU]/L 0.45-5.33 [facility] Triglyceride [Mass/volume] i n Serum or PlasmaOrdered By: Wardjaquelin Zuniga on 01-03-2022 Triglyceride [Mass/Vol] 91 mg/dL 35-149 [facility] Comment on above: TRIG ATP III CLASSIF ICATIONTRIG less than 150 mg/dL NormalTRIG 150-199 mg/dL Borderline highTRIG 200-500 mg/dL High TRIG greater than 500 mg/dL Very highStandard traceable to the Center for Disease Conrtrol and Prevention (CDC) test method. COVID-19 Positive/NegativeOr dered By: Molina Villanueva on 12-15-2021 SARS-CoV-2 (COVID-19) N gene ROXANA+probe Ql (Resp) Negative Negative [facility] Comment on above: Testing for SARS-CoV -2 by RT-PCR This test was developed and its performance characteristics determined by [employer]) and validated at the [facility]. This test has not been FDA [...] developed and its performance characteristics determined by [employer] ([employer]) and validated at the [facility]. This test has not been FDA [...] 07-05-2021 BUN/CREA 11 NOT APPLICABLE Normal 6-22 [place] [employer] Comment on above: Order Comment: [facility] Testing performed at: [employer] [facility], [address] [place] [address], [address] [place] [address], [address] [place] [address], Pest Control Technician: Alli Parker MD [facility] Collection Date/Time: [facility] Results Received Date/Time: [facility] Reported Date/Time: Performed By: #### T LUIS, [id number] #### [facility] [address] [place] [address] Calcium [Mass/Vol] 8.9 mg/dL Normal 8.6-10.4 Ashley bacon [place] [employer] Comment on above: Order Comment: [facility] performed at: [employer] [facility], [address] [place] [address], [address] [place] [address], [address] [place] [address], Pest Control Technician: Alli Parker MD [facility] Date/Time: [facility] Results Received Date/Time: [facility] Reported Date/Time: Performed By: #### T LUIS, [id number] #### [facility] [address] [place] [address] Chloride [Moles/Vol] 101 mmol/L Normal 98-110 Rup[place] cat [place] [employer] Comment on above: Order Comment: [facility] performed at: [employer] [facility], [address] [facility], [address] [place] [address], [address] [place] [address], Pest Control Technician: Alli Parker MD [facility] Date/Time: [facility] Results Received Date/Time: [facility] Reported Date/Time: Performed By: #### Cornelius SMITH, [id number] #### [facility] [address] [place] [address] CO2 [Moles/Vol] 30 mmol/L Normal 20-32 [facility] Comment on above: Order Comment: [facility] performed at: [employer] [facility], [address] [place] [address], [address] [place] [address], [address] [place] [address], Pest Control Technician: Alli Parker MD [facility] Date/Time: [facility] Results Received Date/Time: [facility] Reported Date/Time: Performed By: #### Cornelius SMITH, [id number] #### [facility] [address] [place] [address] Creatinine [Mass/Vol] 0.94 mg/dL Normal 0.50-0.99 [facility] Comment on above: Order Comment: [facility] performed at: [employer] [facility], [address] [place] [address], [address] [place] [address], [address] [place] [address], Pest Control Technician: Alli Parker MD [facility] Date/Time: [facility] Results Received Date/Time: [facility] Reported Date/Time: Result Comment: For patients >49 years of age, the reference limit for Creatinine is approximately 13% higher for people identified as -Czech. Performed By: #### Cornelius SMITH, [id number] #### [facility] [address] [place] [address] eGFRAA ([facility]) 73 mL/min/1.73m2 Normal > OR = 60 [facility] Comment on above: Order Comment: [facility] performed at: [employer] [facility], [address] [facility], [address] [place] [address], [address] [place] [address], Pest Control Technician: Alli aPrker MD [facility] Date/Time: [facility] Results Received Date/Time: [facility] Reported Date/Time: Performed By: #### T LUIS, [id number] #### [facility] Default [address] [place] [address] eGFRNAA ([facility]) 63 mL/min/1.73m2 Normal > OR = 60 [facility] [employer] Comment on above: Order Comment: [facility] performed at: [employer] [facility], [address] [facility], [address] [place] [address], [address] [place] [address], Pest Control Technician: Alli Parker MD [facility] Date/Time: [facility] Results Received Date/Time: [facility] Reported Date/Time: Performed By: #### T LUIS, [id number] #### [facility] Default [address] [place] [address] Glucose [Mass/Vol] 82 mg/dL Normal 65-99 [facility] [employer] Developer Comment on above: Order Comment: [facility] performed at: [employer] [facility], [address] [facility], [address] [place] [address], [address] [place] [address], Pest Control Technician: Alli Parker MD [facility] Date/Time: [facility] Results Received Date/Time: [facility] Reported Date/Time: Result Comment: Fasting reference interval Performed By: #### T LUIS, [id number] #### [facility] Default [address] [place] [address] Potassium [Moles/Vol] 4.3 mmol/L Normal 3.5-5.3 [facility] [employer] Comment on above: Order Comment: [facility] performed at: [employer] [facility], [address] [facility], [address] [place] [address], [address] [place] [address], Pest Control Technician: Alli Parker MD [facility] Date/Time: [facility] Results Received Date/Time: [facility] Reported Date/Time: Performed By: #### T LUIS, [id number] #### [facility] Default [address] [place] [address] Sodium [Moles/Vol] 138 mmol/L Normal 135-146 [facility] Specialist Comment on above: Order Comment: [facility] performed at: [employer] [facility], [address] [place] [address], [address] [place] [address], [address] [place] [address], Pest Control Technician: Alli Parker MD [facility] Date/Time: [facility] Results Received Date/Time: [facility] Reported Date/Time: Performed By: #### T LUIS, [id number] #### [facility] [address] [place] [address] Urea nitrogen [Mass/Vol] 10 mg/dL Normal 7-25 [facility] [employer] Comment on above: Order Comment: [facility] performed at: [employer] [facility], [address] [place] [address], [address] [place] [address], [address] [place] [address], Pest Control Technician: Alli Parker MD [facility] Date/Time: [facility] Results Received Date/Time: [facility] Reported Date/Time: Performed By: #### T LUIS, [id number] #### [facility] Default [address] [place] [address] TSHon 07-05-2021 TSH Qn 0.07 m[IU]/L Low 0.40-4.50 [facility] [employer] Comment on above: Order Comment: [facility] performed at: [employer] [facility], [address] [place] [address], [address] [place] [address], [address] [place] [address], Pest Control Technician: Alli Parker MD [facility] Date/Time: [facility] Results Received Date/Time: [facility] Reported Date/Time: Performed By: #### T LUIS, [id number] #### [facility] [address] [place] [address] Screening Mammogram, Maral rebecca 03-02-2021 Screening Mammogram, [...] VERY IMPORTANT TO YOUR HEALTH. THE CURRENT [employer] GUIDELINES RECOMMEND ANNUAL MAMMOGRAPHY BEGINNING AT AGE 40. THIS FACILITY UTILIZES A REMINDER SYSTEM TO ENSURE ALL PATIENTS RECEIVE A REMINDER NOTIFICATION AT THE APPROPRIATE TIME BASED ON THE RECOMMENDATIONS OF THIS EXAM. 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 ACCREDITED BY THE [facility] AND FDA. Report reported and signed by Eladia Aviles on 03/03/2021 0945 Normal [facility] [employer] COVID-19 Positive/Negativeon 07-13-2020 SARS-CoV-2 (COVID-19) N gene ROXANA+probe Ql (Resp) Negative Negative [facility] Comment on above: Reference: NegativeT esting for SARS-CoV-2 by RT-PCRThis test was developed and its performance characteristics determined by [employer] ([employer]) and validated at the [facility]. This test has not been FDA [...] (COVID-19) RNA ROXANA+probe Ql (Unsp spec) N/A [facility] Albumin [Mass/volume] in Ser um or Plasmaon 06-30-2020 Albumin [Mass/Vol] 3.6 g/dL 3.2-5.5 [facility] Basophils Auto (Bld) [#/Vol] on 06-30-2020 Basophils (Bld) [#/Vol] 0.0 10*3/uL 0.0-0.2 [facility] Basophils/100 WBC Auto (Bld) on 06-30-2020 Basophils/100 WBC (Bld) 0.8 % [facility] Bilirubin Auto test strip Ql (U)on 06-30-2020 Bilirubin Ql (U) Negative Negative [facility] Blood hemoglobin measurement (mass/volume)on 06-30-2020 Hemoglobin (Bld) [Mass/Vol] 12.1 g/dL 11.8-15.4 [facility] Blood leukocytes automated c ount (number/volume)on 06-30-2020 WBC (Bld) [#/Vol] 4.6 10*3/uL 4.5-11.0 [facility] Cholesterol [Mass/volume] in Serum or Plasmaon 06-30-2020 Cholesterol [Mass/Vol] 202 mg/dL 140-200 [facility] Comment on above: Chol less than 200 m g/dl low riskChol 201-239 mg/dl borderline riskChol 240 mg/dl and greater high risk Cholesterol in LDL Calc [Mas s/Vol]on 06-30-2020 Cholesterol in LDL [Mass/Vol] 134 mg/dL 0-100 [facility] Comment on above: LDL ATP III CLASSIFI CATIONLDL less than 100 mg/dL OptimalLDL 100-129 mg/dL Near or above optimalLDL 130-159 mg/dL Borderline highLDL 160-189 mg/dL HighLDL greater than 189 mg/dL Very high Cholesterol in VLDL Calc [Ma ss/Vol]on 06-30-2020 Cholesterol in VLDL [Mass/Vol] 25 mg/dL [facility] Creatinine and Glomerular fi ltration rate.predicted panel (S/P/Bld)on 06-30-2020 Creatinine [Mass/Vol] 0.84 mg/dL 0.44-1.03 [facility] Eosinophils Auto (Bld) [#/Vo l]on 06-30-2020 Eosinophils (Bld) [#/Vol] 0.1 10*3/uL 0.0-0.45 [facility] Eosinophils/100 WBC Auto (Bl d)on 06-30-2020 Eosinophils/100 WBC (Bld) 2.5 % [facility] Erythrocyte distribution wid th Auto (RBC) [Ratio]on 06-30-2020 Erythrocyte distribution width (RBC) [Ratio] 15.4 % 11.9-15.3 [facility] GFR/1.73 sq M.predicted anthony g non-blacks MDRD (S/P/Bld) [Vol rate/Area]on 06-30-2020 GFR/1.73 sq M predicted among non-blacks MDRD (S/P/Bld) [Vol rate/Area] > 60 mL/Min [facility] Globulin Calc (S) [Mass/Vol] on 06-30-2020 Globulin (S) [Mass/Vol] 2.3 g/dL [facility] Hematocrit Auto (Bld) [Volum e fraction]on 06-30-2020 Hematocrit (Bld) [Volume fraction] 35.9 % 34.0-46.4 [facility] Ketones Auto test strip (U) [Mass/Vol]on 06-30-2020 Ketones (U) [Mass/Vol] Negative Negative Fi [facility] Lymphocytes Auto (Bld) [#/Vo l]on 06-30-2020 Lymphocytes (Bld) [#/Vol] 1.4 10*3/uL 1.00-4.8 [facility] Lymphocytes/100 WBC Auto (Bl d)on 06-30-2020 Lymphocytes/100 WBC (Bld) 31.2 % [facility] MCH Auto (RBC) [Entitic mass ]on 06-30-2020 MCH (RBC) [Entitic mass] 28.9 pg 24.7-34.3 [facility] MCHC Auto (RBC) [Mass/Vol]on 06-30-2020 MCHC (RBC) [Mass/Vol] 33.7 g/dL 32.0-35.0 [facility] MCV Auto (RBC) [Entitic vol] on 06-30-2020 MCV (RBC) [Entitic vol] 85.9 fL 80-100 [facility] Monocytes Auto (Bld) [#/Vol] on 06-30-2020 Monocytes (Bld) [#/Vol] 0.3 10*3/uL 0.0-0.8 [facility] Monocytes/100 WBC Auto (Bld) on 06-30-2020 Monocytes/100 WBC (Bld) 7.6 % [facility] Neutrophils Auto (Bld) [#/Vo l]on 06-30-2020 Neutrophils (Bld) [#/Vol] 2.7 10*3/uL 1.8-7.7 [facility] Neutrophils/100 WBC Auto (Bl d)on 06-30-2020 Neutrophils/100 WBC (Bld) 57.9 % [facility] No Panel Informationon 06-30 Estimated GFR () > 60 mL/Min [facility] Comment on above: GFR estimated refere nce range: According to KDOQI guidelines, <60 ml/min/1.73m2 is sufficient to diagnose a patient with chronic kidney disease. Otheron 06-30-2020 GFR/1.73 sq M.predicted MDRD (S/P/Bld) [Vol rate/Area] > 60 mL/Min [facility] Comment on above: GFR estimated refere nce range: According to KDOQI guidelines, <60 ml/min/1.73m2 is sufficient to diagnose a patient with chronic kidney disease. Nucleated RBC/100 WBC (Bld) [Ratio] 0.1 % 0-0.5 [facility] Creatinine Clearance (Chem N/A [facility] Platelet mean volume Auto (B ld) [Entitic vol]on 06-30-2020 Platelet mean volume (Bld) [Entitic vol] 7.8 fL 6.3-10.7 [facility] Platelets Auto (Bld) [#/Vol] on 06-30-2020 Platelets (Bld) [#/Vol] 244 10*3/uL 150-450 [facility] [facility] Auto test strip (U) [Mass/Vol]on 06-30-2020 Protein (U) [Mass/Vol] Negative [facility] [Mass/volume] in Ser um or Plasmaon 06-30-2020 Protein [Mass/Vol] 5.9 g/dL 6.1-7.9 [facility] RBC Auto (Bld) [#/Vol]on RBC (Bld) [#/Vol] 4.18 10*6/uL 3.60-5.00 [place] Serum or plasma alanine kirkpatrick otransferase measurement without P-5'-P (enzymatic activion 06-30-2020 ALT No additional P-5'-P [Catalytic activity/Vol] 16 U/L 10-60 [facility] Serum or plasma albumin/glob ulin mass ratioon 06-30-2020 Albumin/Globulin [Mass ratio] 1.6 {ratio} [facility] Serum or plasma alkaline kami sphatase measurement (enzymatic activity/volume)on 06-30-2020 ALP [Catalytic activity/Vol] 63 U/L 32-92 [facility] Serum or plasma aspartate am inotransferase measurement (enzymatic activity/volume)on 06-30-2020 AST [Catalytic activity/Vol] 20 U/L 10-42 [facility] Serum or plasma calcium ventura urement (mass/volume)on 06-30-2020 Calcium [Mass/Vol] 8.7 mg/dL 8.2-10.2 [facility] Serum or plasma chloride alfie surement (moles/volume)on 06-30-2020 Chloride [Moles/Vol] 101 mmol/L 95-114 [facility] Serum or plasma glucose ventura urement (mass/volume)on 06-30-2020 Glucose [Mass/Vol] 90 mg/dL 70-100 [facility] Comment on above: ADA recommended refe rence rangeRandom Glucose Reference Range is dependent on time and content of last meal. Glucose of more than 200 mg/dL in a nonstressed, ambulatory subject supports the diagnosis of Diabetes Mellitus. Serum or plasma high density lipoprotein (HDL) cholesterol measurementon 06-30-2020 Cholesterol in HDL [Mass/Vol] 42 mg/dL 35-85 [facility] Comment on above: HDL CHOL ATP-III CLA SSIFICATION Cardiovascular RiskHDL > or equal to 60 mg/dL LOWHDL < 40 mg/dL HIGH Serum or plasma potassium me asurement (moles/volume)on 06-30-2020 Potassium [Moles/Vol] 4.1 mmol/L 3.5-5.1 [facility] Serum or plasma sodium measu rement (moles/volume)on 06-30-2020 Sodium [Moles/Vol] 139 mmol/L 136-146 [facility] Serum or plasma thyroid stim ulating hormone (TSH) measurement by high sensitivity meton 06-30-2020 TSH Qn 1.63 u[iU]/mL 0.45-5.33 [facility] Serum or plasma total biliru bin measurement (mass/volume)on 06-30-2020 Bilirubin [Mass/Vol] 0.6 mg/dL 0.3-1.2 [facility] Serum or plasma total carbon dioxide measurement (moles/volume)on 06-30-2020 CO2 [Moles/Vol] 28.7 mmol/L 22.0-30.0 [facility] Serum or plasma total choles terol/high density lipoprotein (HDL) cholesterol mass bentley 06-30-2020 Cholesterol.total/Chol esterol in HDL [Mass ratio] 4.8 {ratio} [facility] Serum or plasma urea nitroge n measurement (mass/volume)on 06-30-2020 Urea nitrogen [Mass/Vol] 5 mg/dL 9-23 [facility] TSH DL <= 0.005 mIU/L Qnon 0 06-30-2020 TSH Qn 1.63 m[IU]/L 0.45-5.33 [facility] Triglyceride [Mass/volume] i n Serum or Plasmaon 06-30-2020 Triglyceride [Mass/Vol] 128 mg/dL 35-149 [facility] Comment on above: TRIG ATP III CLASSIF ICATIONTRIG less than 150 mg/dL NormalTRIG 150-199 mg/dL Borderline highTRIG 200-500 mg/dL High TRIG greater than 500 mg/dL Very highStandard traceable to the Center for Disease Conrtrol and Prevention (CDC) test method. Urine appearanceon Appearance (U) Clear Clear [facility] Urine coloron 06-30-2020 Color (U) Yellow Yellow [facility] Urine glucose measurement by automated test strip (mass/volume)on 06-30-2020 Glucose Auto test strip (U) [Mass/Vol] Normal mg/dL Normal [facility] Urine hemoglobin detection b y automated test stripon 06-30-2020 Hemoglobin Auto test strip Ql (U) Negative Negative [facility] Hemoglobin Auto test strip Ql (U) Negative Negative [facility] Urine ketones measurement by automated test strip (mass/volume)on 06-30-2020 Ketones (U) [Mass/Vol] Negative Negative [facility] Urine leukocyte esterase det ection by automated test stripon 06-30-2020 Leukocyte esterase Auto test strip Ql (U) Negative Negative [facility] Leukocyte esterase Auto test strip Ql (U) Negative Negative [facility] Urine nitrite detection by a utomated test stripon 06-30-2020 Nitrite Auto test strip Ql (U) Negative Negative [facility] Nitrite Auto test strip Ql (U) Negative Negative [facility] Urine protein measurement by automated test strip (mass/volume)on 06-30-2020 Protein (U) [Mass/Vol] Negative Negative [facility] Urine total bilirubin detect ion by automated test stripon 06-30-2020 Bilirubin Ql (U) Negative Negative [facility] Urobilinogen Auto test strip (U) [Mass/Vol]on 06-30-2020 Urobilinogen (U) [Mass/Vol] Normal mg/dL Normal [facility] pH Auto test strip (U)on pH (U) 5.5 [pH] 5.0-9.0 [facility] pH (U) 1.030 [pH] 1.001-1.03 0 [facility] Amphetamines screenon 2020 Amphetamines Ql (U) Negative Negative [place] Cannabinoids [Presence] in U rine by Screen methodon 03-31-2020 Cannabinoids Screen Ql (U) Positive Negative [facility] Comment on above: These are unconfirme d results and should not be used for legal purposes. Drug Cut-Off Concentration: AMPH 1000 ng/mL JUNIE 200 ng/mL SABRA 200 ng/mL COCM 300 ng/mL OP 300 ng/mL PCP 25 ng/mL THC 20 ng/mL Urinalysison 03-31-2020 Opiates Ql (U) Negative Negative [facility] Urine barbiturates detection on 03-31-2020 Barbiturates Ql (U) Negative Negative [place] Urine benzodiazepines detect ionon 03-31-2020 Benzodiazepines Ql (U) Negative Negative [facility] Urine cocaine detectionon Cocaine Ql (U) Negative Negative [facility] Urine phencyclidine detectio n by screening methodon 03-31-2020 Phencyclidine Ql (U) Negative Negative [facility] COVID-19 SOFIAon 03-30-2020 COVID-19 SHELBI Negative Negative [facility] Comment on above: This is a duplicate test result based off of the Shelbi SARS Antigen (MILDRED) test performed within the Microbiology department. Otheron 03-30-2020 SARS Antigen (LFIA) [place] Vital Signs Date Time Vital Sign Value Performing Clinician Facility 03-13-2023 14:26-0500 Body temperature 97.7 [degF] DO Ward Zuniga Work Phone: [facility] 03-13-2023 14:26-0500 Diastolic blood pressure 68 mm[Hg] DO Ward Zuniga Work Phone: [facility] 03-13-2023 14:26-0500 Heart rate 84 /min DO Ward Zuniga Work Phone: [facility] 03-13-2023 14:26-0500 Respiratory rate 18 /min DO Ward Zuniga Work Phone: [facility] 03-13-2023 14:26-0500 Systolic blood pressure 148 mm[Hg] DO Ward Zuniga Work Phone: [facility] 03-02-2023 13:09-0500 Blood Pressure Location [employer] [facility] 03-02-2023 13:09-0500 Body temperature 96.98 [degF] [employer] [facility] 03-02-2023 13:09-0500 Diastolic blood pressure 81 mm[Hg] Ketty Orzech [facility] 03-02-2023 13:09-0500 Heart rate 71 /min Ketty Orzech [facility] 03-02-2023 13:09-0500 Systolic blood pressure 128 mm[Hg] Ketty Orzech [facility] 02-27-2023 14:36-0500 Body height 154.94 cm DO Ward Efrain Work Phone: [facility] 02-27-2023 14:36-0500 Body mass index (BMI) [Ratio] 31.1 kg/m2 DO Ward Efrain Work Phone: [facility] 02-27-2023 14:36-0500 Body weight 74.84 kg DO Ward Efrain Work Phone: [facility] 01-04-2023 13:32-0400 Body height 154.94 cm DO Ward Efrain Work Phone: [facility] 01-04-2023 13:32-0400 Body mass index (BMI) [Ratio] 31.1 kg/m2 DO Ward Efrain Work Phone: [facility] 01-04-2023 13:32-0400 Body weight 74.84 kg DO Ward Efrain Work Phone: [facility] 01-04-2023 13:19-0400 Diastolic blood pressure 92 mm[Hg] DO Ward Efrain Work Phone: [facility] 01-04-2023 13:19-0400 Heart rate 82 /min DO Ward Efrain Work Phone: [facility] 01-04-2023 13:19-0400 Respiratory rate 18 /min DO Ward Zuniga Work Phone: [facility] 01-04-2023 13:19-0400 Systolic blood pressure 160 mm[Hg] DO Ward Zuniga Work Phone: [facility] 01-02-2023 09:45-0400 Body height 154.94 cm Ward Mathewr Other [employer] Other 01-02-2023 09:45-0400 Body mass index (BMI) [Ratio] 32.12 kg/m2 Ward Romanalbinrer Other [employer] Other 01-02-2023 09:45-0400 Body temperature 97.8 [degF] Ward Owensehrer Other [employer] Other 01-02-2023 09:45-0400 Body weight 77.11 kg Ward Romanbryannalalita Other [employer] Other 01-02-2023 09:45-0400 Diastolic blood pressure 62 mm[Hg] Ward Morenorer Other [employer] Other 01-02-2023 09:45-0400 SaO2% (BldA) [Mass fraction] 97 % Ward Owensehrer Other [employer] Other 01-02-2023 09:45-0400 Systolic blood pressure 116 mm[Hg] Ward Buehrer Other [employer] Other 12-21-2022 13:01-0400 Body temperature 98.4 [degF] DO Ward Zuniga Work Phone: [facility] 12-17-2022 09:00-0400 Diastolic blood pressure 68 mm[Hg] DO Ward Zuniga Work Phone: [facility] 12-17-2022 09:00-0400 Heart rate 64 /min DO Ward Zuniga Work Phone: [facility] 12-17-2022 09:00-0400 Respiratory rate 20 /min DO Ward Zuniga Work Phone: [facility] 12-17-2022 09:00-0400 SaO2% (BldA) [Mass fraction] 95 % DO Ward Zuniga Work Phone: [facility] 12-17-2022 09:00-0400 Systolic blood pressure 138 mm[Hg] DO Ward Zuniga Work Phone: [facility] 12-17-2022 07:42-0400 Body temperature 98.9 [degF] DO Ward Zuniga Work Phone: [facility] 12-07-2022 11:11-0400 Body height 154.94 cm DO Ward Zuniga Work Phone: [facility] 12-07-2022 11:11-0400 Body mass index (BMI) [Ratio] 31.1 kg/m2 DO Ward Zuniga Work Phone: [facility] 12-07-2022 11:11-0400 Body weight 74.84 kg DO Ward Zuniga Work Phone: [facility] 12-07-2022 11:01-0400 Body temperature 97.2 [degF] DO Ward Zuniga Work Phone: [facility] 12-07-2022 11:01-0400 Diastolic blood pressure 74 mm[Hg] DO Ward Zuniga Work Phone: [facility] 12-07-2022 11:01-0400 Heart rate 67 /min DO Ward Zuniga Work Phone: [facility] 12-07-2022 11:01-0400 Respiratory rate 18 /min DO Ward Zuniga Work Phone: [facility] 12-07-2022 11:01-0400 Systolic blood pressure 146 mm[Hg] DO Ward Zuniga Work Phone: [facility] 11-04-2022 10:54-0400 Body height 154.94 cm DO Ward Zuniga Work Phone: [facility] 11-04-2022 10:54-0400 Body temperature 99.2 [degF] DO Ward Zuniga Work Phone: [facility] 11-04-2022 10:54-0400 Body weight 70.3 kg DO Ward Zuniga Work Phone: [facility] 11-04-2022 10:54-0400 Diastolic blood pressure 71 mm[Hg] DO Ward Zuniga Work Phone: [facility] 11-04-2022 10:54-0400 Heart rate 78 /min DO Ward Zuniga Work Phone: [facility] 11-04-2022 10:54-0400 Respiratory rate 18 /min DO Ward Zuniga Work Phone: [facility] 11-04-2022 10:54-0400 SaO2% (BldA) [Mass fraction] 99 % DO Ward Zuniga Work Phone: [facility] 11-04-2022 10:54-0400 Systolic blood pressure 159 mm[Hg] DO Ward Zuniga Work Phone: [facility] 10-26-2022 09:42-0400 Body height 154.94 cm DO Ward Zuniga Work Phone: [facility] 10-26-2022 09:42-0400 Body mass index (BMI) [Ratio] 31.1 kg/m2 DO Ward Zuniga Work Phone: [facility] 10-26-2022 09:42-0400 Body weight 74.84 kg DO Ward Zuniga Work Phone: [facility] 10-26-2022 09:28-0400 Body temperature 98.4 [degF] DO Ward Zuniga Work Phone: [facility] 10-26-2022 09:28-0400 Diastolic blood pressure 88 mm[Hg] DO Ward Zuniga Work Phone: [facility] 10-26-2022 09:28-0400 Heart rate 93 /min DO Ward Zuniga Work Phone: [facility] 10-26-2022 09:28-0400 Respiratory rate 24 /min DO Ward Zuniga Work Phone: [facility] 10-26-2022 09:28-0400 Systolic blood pressure 132 mm[Hg] DO Ward Zuniga Work Phone: [facility] 10-24-2022 09:45-0400 Body height 154.94 cm Ward Smith Other [employer] Other 10-24-2022 09:45-0400 Body mass index (BMI) [Ratio] 31.74 kg/m2 Ward Smith Other [employer] Other 10-24-2022 09:45-0400 Body temperature 97.4 [degF] Ward Joshrer Other [employer] Other 10-24-2022 09:45-0400 Body weight 76.2 kg Ward Joshrer Other [employer] Other 10-24-2022 09:45-0400 Diastolic blood pressure 70 mm[Hg] Ward Owensehrer Other [employer] Other 10-24-2022 09:45-0400 SaO2% (BldA) [Mass fraction] 97 % Ward Morenorer Other [employer] Other 10-24-2022 09:45-0400 Systolic blood pressure 118 mm[Hg] Ward Morenorer Other [place] [employer] Other 09-27-2022 08:26-0400 Diastolic blood pressure 56 mm[Hg] Ronobir RAND[facility] 09-27-2022 08:26-0400 Heart rate 55 /min Ronobir RAND[facility] 09-27-2022 08:26-0400 Respiratory rate 18 /min Ronobir R[facility] 09-27-2022 08:26-0400 SaO2% (BldA) [Mass fraction] 99 % Ronobir RAND[facility] 09-27-2022 08:26-0400 Systolic blood pressure 110 mm[Hg] Ronobir RAND[facility] 09-27-2022 05:58-0400 Diastolic blood pressure 59 mm[Hg] Ronobir RAND[facility] 09-27-2022 05:58-0400 Heart rate 64 /min Ronobir RAND[facility] 09-27-2022 05:58-0400 Respiratory rate 18 /min Ronobir RAND[facility] 09-27-2022 05:58-0400 SaO2% (BldA) [Mass fraction] 95 % Ronobir RAND[facility] 09-27-2022 05:58-0400 Systolic blood pressure 108 mm[Hg] Ronobir RAND[facility] 09-27-2022 04:58-0400 Diastolic blood pressure 61 mm[Hg] Ronobir RAND[facility] 09-27-2022 04:58-0400 Heart rate 66 /min Ronobir RAND[facility] 09-27-2022 04:58-0400 Respiratory rate 18 /min Ronobir R[facility] 09-27-2022 04:58-0400 SaO2% (BldA) [Mass fraction] 97 % Ronobir RAND[facility] 09-27-2022 04:58-0400 Systolic blood pressure 111 mm[Hg] Ronobir RAND[facility] 09-26-2022 23:15-0400 Body temperature 98.96 [degF] Ronobir RANDY [facility] 07-26-2022 14:31-0400 Heart rate 76 /min Talon [facility]br[facility] 07-26-2022 14:31-0400 SaO2% (BldA) [Mass fraction] 98 % Talon Gastons[facility] 07-26-2022 14:30-0400 Diastolic blood pressure 84 mm[Hg] Talon Gastons[facility] 07-26-2022 14:30-0400 Mean blood pressure 111 mm[Hg] Talon Gastons[facility] 07-26-2022 14:30-0400 Systolic blood pressure 166 mm[Hg] Talon Gastons[facility] 07-26-2022 14:30-0400 Respiratory rate 16 /min Talon Gastons[facility] 07-26-2022 12:53-0400 Heart rate 73 /min Talon [facility] 07-26-2022 12:53-0400 SaO2% (BldA) [Mass fraction] 98 % Talon [facility] 07-26-2022 12:52-0400 Diastolic blood pressure 75 mm[Hg] Talon [facility] 07-26-2022 12:52-0400 Mean blood pressure 99 mm[Hg] Talon Gastons[facility] 07-26-2022 12:52-0400 Systolic blood pressure 148 mm[Hg] Talon [facility]ast[facility] 07-26-2022 12:52-0400 SaO2% (BldA) [Mass fraction] 95 % Talon [facility] 07-26-2022 12:43-0400 Body temperature 97.88 [degF] Talon [facility] 07-26-2022 12:43-0400 Diastolic blood pressure 63 mm[Hg] Talon [facility] 07-26-2022 12:43-0400 Heart rate 63 /min Talon Gastons[facility] 07-26-2022 12:43-0400 Mean blood pressure 86 mm[Hg] Talon [facility]ast[facility] 07-26-2022 12:43-0400 Respiratory rate 15 /min Talon Gastons[facility] 07-26-2022 12:43-0400 Systolic blood pressure 131 mm[Hg] Talon Gastons[facility] 07-26-2022 12:30-0400 Mean blood pressure 93 mm[Hg] Talon Mcbr[facility] 07-26-2022 12:30-0400 Respiratory rate 16 /min Talon Mcbr[facility] 07-26-2022 12:15-0400 Mean blood pressure 112 mm[Hg] Talon Gastons[facility] 07-26-2022 12:15-0400 Respiratory rate 15 /min Talon Mcbr[facility] 07-26-2022 11:46-0400 Body temperature 97.34 [degF] Talon Gastons[facility] 07-26-2022 11:40-0400 Respiratory rate 21 /min Talon [facility] 07-26-2022 11:35-0400 Respiratory rate 14 /min Talon [facility] 07-26-2022 06:00-0400 Body temperature 98.06 [degF] Talon [facility] 07-26-2022 06:00-0400 Mean blood pressure 101 mm[Hg] Talon [facility] 07-26-2022 06:00-0400 Heart rate 68 /min Talon [facility] 07-26-2022 05:58-0400 Blood Pressure Location Talon Mcbr[facility] 07-18-2022 13:31-0400 Diastolic blood pressure 72 mm[Hg] Talon Gastons[facility] 07-18-2022 13:31-0400 Heart rate 61 /min Talon Gastons[facility] 07-18-2022 13:31-0400 Mean blood pressure 89 mm[Hg] Talon [facility] 07-18-2022 13:31-0400 Systolic blood pressure 123 mm[Hg] Talon Mc[facility] 07-18-2022 13:31-0400 Heart rate 64 /min Talon Mcbr[facility] 07-18-2022 13:31-0400 SaO2% (BldA) [Mass fraction] 99 % Talon Mc[facility] 07-18-2022 13:31-0400 Respiratory rate 17 /min Talon [facility] 07-18-2022 13:30-0400 Diastolic blood pressure 69 mm[Hg] Talon [facility] 07-18-2022 13:30-0400 Mean blood pressure 86 mm[Hg] Talon [facility] 07-18-2022 13:30-0400 Systolic blood pressure 121 mm[Hg] Talon [facility] 07-13-2022 14:45-0400 Body height 154.9 cm Trauma Resident [facility] 07-13-2022 14:45-0400 Body mass index (BMI) [Ratio] 31.01 kg/m2 Trauma Resident [facility] 07-13-2022 14:45-0400 Body temperature 97.3 [degF] Trauma Resident [facility] 07-13-2022 14:45-0400 Body weight 74.44 kg Trauma Resident [facility] 07-13-2022 14:45-0400 Diastolic blood pressure 69 mm[Hg] Trauma Resident [facility] 07-13-2022 14:45-0400 Heart rate 69 /min Trauma Resident [facility] 07-13-2022 14:45-0400 Respiratory rate 16 /min Trauma Resident [facility] 07-13-2022 14:45-0400 SaO2% (BldA) [Mass fraction] 100 % Trauma Resident [facility] 07-13-2022 14:45-0400 Systolic blood pressure 159 mm[Hg] [facility] 07-05-2022 14:45-0400 Diastolic blood pressure 54 mm[Hg] Mh 1 [facility] 07-05-2022 14:45-0400 Heart rate 75 /min [address] 07-05-2022 14:45-0400 Respiratory rate 16 /min [address] 07-05-2022 14:45-0400 SaO2% (BldA) [Mass fraction] 97 % [address] 07-05-2022 14:45-0400 Systolic blood pressure 125 mm[Hg] [address] 07-05-2022 13:00-0400 Body height 154.[address] 07-05-2022 13:00-0400 Body mass index (BMI) [Ratio] 31.55 kg/m2 [address] 07-05-2022 13:00-0400 Body temperature 98.6 [degF] [address] 07-05-2022 13:00-0400 Body weight 75.[address] 06-30-2022 08:58-0400 Body height 154.94 cm Ward Zuniga Work Phone: [facility] [employer] DO Work Phone: 06-30-2022 08:58-0400 Body mass index (BMI) [Ratio] 31.08 kg/m2 Ward Zuniga Work Phone: [facility] [employer] DO Work Phone: 06-30-2022 08:58-0400 Body surface area Derived from formula 1.74 m2 Ward Zuniga Work Phone: [facility] [employer] DO Work Phone: 06-30-2022 08:58-0400 Body weight 74.62 kg Ward Zuniga Work Phone: [facility] [employer] DO Work Phone: 06-30-2022 08:58-0400 Diastolic blood pressure 78 mm[Hg] Ward Loomisman Work Phone: [facility] 600 DO Work Phone: 06-30-2022 08:58-0400 Diastolic blood pressure 80 mm[Hg] Ward Loomisman Work Phone: [facility] 600 DO Work Phone: 06-30-2022 08:58-0400 Heart rate 77 /min Ward Maryann Efrain Work Phone: [facility] 600 DO Work Phone: 06-30-2022 08:58-0400 Systolic blood pressure 128 mm[Hg] Ward Loomisman Work Phone: [facility] 600 DO Work Phone: 06-30-2022 08:58-0400 Systolic blood pressure 132 mm[Hg] Ward Loomisman Work Phone: [facility] 600 DO Work Phone: 06-22-2022 19:00-0400 Body height 154.94 cm DO Ward Efrain Work Phone: [facility] 06-22-2022 19:00-0400 Body temperature 97.7 [degF] DO Ward Loomisman Work Phone: [facility] 06-22-2022 19:00-0400 Body weight 73 kg DO Ward Efrain Work Phone: [facility] 06-22-2022 19:00-0400 Diastolic blood pressure 76 mm[Hg] DO Ward Efrain Work Phone: [facility] 06-22-2022 19:00-0400 Heart rate 94 /min DO Ward Efrain Work Phone: [facility] 06-22-2022 19:00-0400 Respiratory rate 18 /min DO Ward Zuniga Work Phone: [facility] 06-22-2022 19:00-0400 SaO2% (BldA) [Mass fraction] 98 % DO Ward Zuniga Work Phone: [facility] 06-22-2022 19:00-0400 Systolic blood pressure 139 mm[Hg] DO Ward Zuniga Work Phone: [facility] 06-15-2022 13:10-0400 Body height 154.9 cm Trauma Resident [facility] 06-15-2022 13:10-0400 Body mass index (BMI) [Ratio] 31.57 kg/m2 Trauma Resident [facility] 06-15-2022 13:10-0400 Body weight 75.8 kg Trauma Resident [facility] 06-15-2022 13:10-0400 Diastolic blood pressure 68 mm[Hg] Trauma Resident [facility] 06-15-2022 13:10-0400 Heart rate 92 /min Trauma Resident [facility] 06-15-2022 13:10-0400 Respiratory rate 19 /min Trauma Resident [facility] 06-15-2022 13:10-0400 SaO2% (BldA) [Mass fraction] 97 % Trauma Resident [facility] 06-15-2022 13:10-0400 Systolic blood pressure 118 mm[Hg] Trauma Resident [facility] 05-16-2022 00:50-0500 Body temperature 98.3 [degF] DO Ward Zuniga Work Phone: [facility] 05-16-2022 00:50-0500 Diastolic blood pressure 79 mm[Hg] DO Ward Zuniga Work Phone: [facility] 05-16-2022 00:50-0500 Heart rate 82 /min DO Ward Zuniga Work Phone: [facility] 05-16-2022 00:50-0500 Inhaled oxygen flow rate 3 L/min DO Ward Zuniga Work Phone: [facility] 05-16-2022 00:50-0500 Respiratory rate 20 /min DO Ward Zuniga Work Phone: [facility] 05-16-2022 00:50-0500 SaO2% (BldA) [Mass fraction] 96 % DO Ward Zuniga Work Phone: [facility] 05-16-2022 00:50-0500 Systolic blood pressure 147 mm[Hg] DO Ward Zuniga Work Phone: [facility] 05-15-2022 17:14-0500 Body height 154.94 cm DO Ward Zuniga Work Phone: [facility] 05-15-2022 17:14-0500 Body weight 78.1 kg DO Ward Zuniga Work Phone: [facility] 12-07-2021 09:30-0400 Body height 154.94 cm Balwinder Parker Other [facility] [employer] Other 12-07-2021 09:30-0400 Body mass index (BMI) [Ratio] 33.06 kg/m2 Balwinder Parker Other [employer] [facility] [employer] Other 12-07-2021 09:30-0400 Body weight 79.38 kg Balwinder Parker Other [employer] Other 12-07-2021 09:30-0400 Diastolic blood pressure 63 mm[Hg] Balwinder Parker Other [employer] Other 12-07-2021 09:30-0400 Systolic blood pressure 113 mm[Hg] Balwinder Parker Other [employer] Other 12-07-2021 09:01-0400 Body weight 0 kg DO Ward Zuniga Work Phone: [facility] 11-30-2021 13:23-0400 Blood Pressure Location MARYCARMEN ELIJAH [facility] 11-30-2021 13:23-0400 Diastolic blood pressure 73 mm[Hg] MARYCARMEN ELIJAH [facility] 11-30-2021 13:23-0400 Heart rate 69 /min MARYCARMEN ELIJAH [facility] [facility] 11-30-2021 13:23-0400 Systolic blood pressure 132 mm[Hg] MARYCARMEN ELIJAH [facility] 07-29-2021 11:08-0400 Blood Pressure Location MARYCARMEN ELIJAH [facility] 07-29-2021 11:08-0400 Diastolic blood pressure 84 mm[Hg] MARYCARMEN ELIJAH [facility] 07-29-2021 11:08-0400 Heart rate 77 /min MARYCARMEN ELIJAH [facility] 07-29-2021 11:08-0400 Systolic blood pressure 132 mm[Hg] MARYCARMEN ELIJAH [facility] 07-01-2021 14:45-0400 Body height 154.94 cm Balwinder Parker Other [employer] Other 07-01-2021 14:45-0400 Body mass index (BMI) [Ratio] 36.09 kg/m2 Balwinder Parker Other [employer] Other 07-01-2021 14:45-0400 Body weight 86.64 kg Balwinder Parker Other [employer] Other 02-23-2021 11:45-0500 Body height 154.94 cm Ward Smith Other [employer] Other 02-23-2021 11:45-0500 Body mass index (BMI) [Ratio] 34.95 kg/m2 Ward Romanalbinrelalita Other [employer] Other 02-23-2021 11:45-0500 Body temperature 96.7 [degF] Ward Mtz Other [employer] Other 02-23-2021 11:45-0500 Body weight 83.92 kg Ward Joshrelalita Other [employer] Other 02-23-2021 11:45-0500 Diastolic blood pressure 80 mm[Hg] Ward Mtz Other [employer] Other 02-23-2021 11:45-0500 SaO2% (BldA) [Mass fraction] 98 % Ward Mtz Other [employer] Other 02-23-2021 11:45-0500 Systolic blood pressure 138 mm[Hg] Ward Morenorelalita Other [employer] Other 12-29-2020 11:40-0400 Body height 154.94 cm Michael Colunga Other [employer] Other 12-29-2020 11:40-0400 Body mass index (BMI) [Ratio] 34.95 kg/m2 Michael Colunga Other [employer] Other 12-29-2020 11:40-0400 Body weight 83.92 kg Michael Colunga Other [employer] Other 12-29-2020 11:40-0400 Diastolic blood pressure 68 mm[Hg] Michael Colunga Other [employer] Other 12-29-2020 11:40-0400 Systolic blood pressure 116 mm[Hg] Michael Colunga Other [employer] Other 03-31-2020 08:55-0500 BP Diastolic 80 mm[Hg] [facility] 03-31-2020 08:55-0500 BP Systolic 145 mm[Hg] [facility] 03-31-2020 08:55-0500 Pulse (Heart Rate) 65 /min [facility] 03-31-2020 08:55-0500 Pulse Oximetry 99 % [facility] 03-31-2020 08:55-0500 Respiratory Rate 16 /min [facility] 03-31-2020 07:10-0500 BMI (Body Mass Index) 33.6 kg/m2 [facility] 03-31-2020 07:10-0500 Body weight 82.1 kg [facility] 03-31-2020 07:10-0500 Height 156.21 cm [facility] Encounters Encounter Date Encounter Type Care Provider Facility Start: 03-14-2024 ambulatory MARYCARMEN Lay ty:[facility] Start: 04-20-2023 End: 04-21-2023 ambulatory CONNIE LEARY Not Available Start: 04-19-2023 End: 04-19-2023 ambulatory WARD ZUNIGA Facility:[facility] Start: 04-17-2023 End: 04-17-2023 ambulatory VICTORIA MARSHALL Not Available Start: 04-11-2023 End: 04-12-2023 ambulatory CONNIE LEARY Not Available Start: 03-22-2023 End: 03-22-2023 ambulatory CONNIE LEARY Not Available Start: 03-13-2023 End: 03-13-2023 ambulatory Adeliagiana Saldana Facility:[facility] Start: 03-13-2023 End: 03-13-2023 ambulatory DO Ward Zuniga Work Phone: [facility] Work Phone: Start: 03-13-2023 End: 03-13-2023 Discharged Recurring DO Ward Zuniga Work Phone: [facility] [place] Work Phone: Start: 03-02-2023 End: 03-03-2023 ambulatory Ketty Jaegre Florentinoclemenciaadeel Facility:[facility] Start: 03-02-2023 End: 03-02-2023 Patient encounter procedure Ketty X Orzech [facility] Start: 03-01-2023 End: 03-02-2023 ambulatory CONNIE LEARY Not Available Start: 02-22-2023 End: 02-23-2023 ambulatory CONNIE LEARY Not Available Start: 02-07-2023 End: 02-08-2023 ambulatory WARD ZUNIGA Not Available Start: 01-04-2023 End: 01-04-2023 ambulatory Ward Zuniga Facility:[facility] Start: 01-04-2023 End: 01-04-2023 Discharged Recurring DO Ward Zuniga Work Phone: [facility] [place] Work Phone: Start: 01-02-2023 End: 01-02-2023 ambulatory Ward Mtz Other [employer] Other Start: 01-02-2023 Office outpatient vi sit 25 minutes Ward Mtz [facility] Vascular Surgery Start: 12-17-2022 End: 12-17-2022 Emergency department patient visit Pravin Granado Facility:[facility] Start: 12-17-2022 End: 12-17-2022 Emergency department patient visit DO Ward Zuniga Work Phone: [facility]-Emergency [facility] Work Phone: Start: 12-07-2022 Registered Recurring DO Lyndsey Zuniga Work Phone: [facility] [place] Work Phone: Start: 12-03-2022 Letter encounter Lalo [place] Start: 11-04-2022 End: 11-04-2022 ambulatory Ward Zuniga Facility:[facility] Start: 11-04-2022 End: 11-04-2022 Emergency department patient visit Ward Zuniga Facility:[facility] Start: 11-04-2022 End: 11-04-2022 ambulatory DO Ward Zuniga Work Phone: [facility] Work Phone: Start: 11-04-2022 End: 11-04-2022 Patient encounter procedure DO Ward Zuniga Work Phone: [facility]-Ultrasound [place] Work Phone: Start: 11-04-2022 End: 11-04-2022 Emergency department patient visit DO Ward Zuniga Work Phone: [facility]-Emergency Room Work Phone: Start: 10-26-2022 Registered Recurring DO Lyndsey Zuniga Work Phone: [facility] [place] Work Phone: Start: 10-24-2022 End: 10-24-2022 ambulatory Ward Mtz Other [employer] Other Start: 10-24-2022 Office outpatient vi sit 25 minutes Ward Mtz [facility] Vascular Surgery Start: 09-27-2022 End: 09-27-2022 ambulatory Maliha PADILLA Facility[facility] Start: 09-26-2022 End: 09-27-2022 Emergency department patient visit Maliha PADILLA [facility] Start: 09-06-2022 End: 09-06-2022 ambulatory Ward Zuniga Facility:[facility] Start: 09-06-2022 End: 09-06-2022 Patient encounter procedure DO Ward Zuniga Work Phone: [facility]-Lab [place] Work Phone: Start: 08-30-2022 Letter encounter Lalo [place] Start: 08-05-2022 End: 08-06-2022 ambulatory Talon Mcbride Facility:[facility] Start: 08-05-2022 End: 08-05-2022 Patient encounter procedure Zulay Junior [facility] Start: 07-26-2022 End: 07-26-2022 ambulatory Talon Mcbride Facility:[facility] Start: 07-26-2022 End: 07-26-2022 Admission to same day surgery center Talon Mcbride [facility] Start: 07-18-2022 End: 07-19-[address] Ward Zuniga Facility:[facility] Start: 07-18-2022 End: 07-18-2022 Patient encounter procedure Talon Mcbride [facility] Start: 07-13-2022 End: 07-13-2022 ambulatory NIKITA HEIN Facility:[facility] Start: 07-13-2022 End: 07-13-2022 Office outpatient visit 10 minutes Trauma Surgery Resident [facility] Trauma Surgery Comment on above: Acute cholecystitis (Primary Dx); Body mass index (BMI) 31.0-31.9, adult Start: 07-13-2022 Admission to [facility] Nikita Hein MD Work Phone: [facility] Trauma Surgery Start: 07-07-2022 Orders Only Jai Aguilera RN [facility] Trauma [facility] Start: 07-06-2022 ambulatory Kendra Harrison RN [facility] Comment on above: Advice/health educat ion Start: 07-06-2022 Telephone encounter Jai Aguilera RN [facility] Trauma Surgery Start: 07-05-2022 End: 07-06-2022 ambulatory NIKITA HEIN Facility:[facility] Start: 07-05-2022 Telephone encounter Taniya cat Work Phone: [facility] Trauma Surgery Start: 07-05-2022 End: 07-05-2022 Subsequent hospital visit by physician Mh Ip/Op Angio 1 [facility] Radiology Comment on above: Acute cholecystitis Start: 06-30-2022 Office consultation new/estab patient 60 min Ward Zuniga Work Phone: [facility] 600 DO Work Phone: Start: 06-30-[address] Natan Marinelli Facility: Start: 06-27-2022 Telephone encounter Taniya cat Work Phone: [facility] Trauma Surgery Start: 06-22-2022 End: 06-22-2022 Emergency department patient visit Keith Griffith Facility:[facility] Start: 06-22-2022 End: 06-22-2022 Emergency department patient visit DO Ward Zuniga Work Phone: [facility]-Emergency Room Work Phone: Start: 06-20-2022 Orders Only Jai Aguilera RN [facility] Tra[facility] Start: 06-17-2022 Telephone encounter Laura Faust [facility] Trauma Surgery Start: 06-16-2022 Telephone encounter Taniya cat Work Phone: [facility] Trauma Surgery Start: 06-15-2022 End: 06-18-2022 ambulatory UNKNOWN PROVIDER Facility:[facility] Start: 06-15-2022 End: 06-18-2022 Office outpatient visit 15 minutes Trauma Surgery Resident [facility] Trauma Surgery Comment on above: Acute cholecystitis (Primary Dx); Body mass index (BMI) 31.0-31.9, adult Start: 05-27-2022 ambulatory Maegan Morris RN [facility] Comment on above: Advice/health educat ion Start: 05-23-2022 Evaluation and management of inpatient JOCELYNE CONLEY Facility:[facility] Start: 05-19-2022 Evaluation and management of inpatient CONNIE COTE Facility:[facility] Start: 05-18-2022 Patient encounter status Maegan Morris RN [facility] Start: 05-17-2022 Evaluation and management of inpatient CONNIE COTE Facility:[facility] Start: 05-16-2022 Evaluation and management of inpatient CONNIE COTE Facility:[facility] Start: 05-16-2022 End: 05-16-2022 ambulatory UNKNOWN PROVIDER Facility:[facility] Start: 05-16-2022 End: 05-25-2022 Evaluation and management of inpatient WARD GRAVES Facility:[facility] Start: 05-16-2022 Emergency department patient visit CONNIE CRUZARTHY Facility:[facility] Start: 05-15-2022 End: 05-16-2022 Emergency department patient visit Keith Griffith Facility:[facility] Start: 05-15-2022 End: 05-16-2022 Emergency department patient visit DO Ward Zuniga Work Phone: [facility]-Emergency Room Work Phone: Start: 05-15-2022 End: 05-16-2022 ambulatory UNKNOWN PROVIDER Facility:[facility] Start: 04-06-2022 End: 04-06-2022 ambulatory Ward Zuniga Facility:[facility] Start: 04-06-2022 End: 04-06-2022 ambulatory DO Ward Zuniga Work Phone: [facility] Work Phone: Start: 04-06-2022 End: 04-06-2022 Patient encounter procedure DO Ward Zuniga Work Phone: [facility]-XRay [address] Work Phone: Start: 01-03-2022 End: 01-03-2022 ambulatory DO Ward Zuniga Work Phone: [facility] Work Phone: Start: 01-03-2022 End: 01-03-2022 Patient encounter procedure DO Ward Zuniga Work Phone: [facility]-Lab [place] Start: 12-16-2021 End: 12-16-2021 Patient encounter procedure DO Ward Zuniga Work Phone: [facility]-Digestive Health Start: 12-15-2021 End: 12-15-2021 Patient encounter procedure DO Ward Zuniga Work Phone: [facility]-Pre-Surgical Testing Start: 12-07-2021 End: 12-07-2021 ambulatory Balwinder Parker Other [facility] [employer] Other Start: 12-07-2021 Patient encounter procedure Balwinder ARMENDARIZ Gastro[facility] Start: 11-30-2021 End: 11-30-2021 Patient encounter procedure MARYCARMEN NAVA [facility] [employer] Start: 09-08-2021 End: 09-08-2021 ambulatory Balwinder Parker Other [facility] [employer] Other Start: 09-08-2021 Telephone encounter Balwinder PARRY G Gastroenterology Start: 07-29-2021 End: 07-29-2021 Patient encounter procedure MARYCARMEN NAVA [facility] [employer] Start: 07-01-2021 End: 07-01-2021 ambulatory Balwinder Parker Other [employer] Other Start: 07-01-2021 Patient encounter procedure Balwinder Parker [facility] Gastroenterology Start: 02-23-2021 End: 02-23-2021 ambulatory Ward Mtz Other [employer] Other Start: 02-23-2021 Office outpatient vi sit 15 minutes Ward Mtz [facility] Vascular Surgery Start: 01-22-2021 (Sclerother) Sclerotherapy Ward Mtz [facility] Vascular Surgery Start: 01-22-2021 End: 01-22-2021 ambulatory Ward Mtz Other [place] [employer] Other Start: 01-21-2021 Telephone encounter Michael Colunga [facility] Vascular Surgery Start: 12-29-2020 Office outpatient vi sit 25 minutes Michael Colunga [facility] Neurosurgery Start: 09-07-2020 End: 09-07-2020 Patient encounter procedure Ward Zuniga Work Phone: -Ultrasound [facility] Vascular Start: 08-04-2020 End: 08-04-2020 Patient encounter procedure Ward Zuniga Work Phone: -Ultrasound [facility] Vascular Start: 07-13-2020 End: 07-13-2020 Patient encounter procedure Ward Zuniga Work Phone: -[facility] [place] Surgery Start: 06-30-2020 End: 06-30-2020 Patient encounter procedure Ward Zuniga -[facility] Start: 03-31-2020 End: 03-31-2020 Admission to day [...] object) Talon Mcbride H/O: hysterectomy MARYCARMEN Sophie HERNANDEZMikey Hysterectomy Ward Hernandez sarah Work Phone: Replacement [...] veins US venous duplex LE LT [facility] Start: 11-04-2022 US Lower extremity vein - left [facility] Start: 10-06-2022 FUV, Provider: Natan Marinelli, Status: Pen, Time: 1:30 PM FUV, Provider: Natan Marinelli, Status: Pen, Time: 1:30 PM -[facility] Heart-[place] 600 DO Work Phone: Start: 08-25-2022 End: 08-25-2022 Patient encounter procedure 08/25/2022 Office Visit Cardiology Ericka Hale MD [address] [id number] [facility] Cardiology Start: 07-13-2022 End: 07-13-2022 Patient encounter procedure 07/13/2022 Office Visit Trauma Surgery [facility] Trauma Surgery Start: 07-05-2022 End: 07-05-2022 Patient encounter procedure 07/05/2022 Appointment Radiology [facility] Rad[facility] Start: 06-15-2022 End: 06-16-2023 RF Biliary ducts Views W contrast via existing catheter XA CHOLANGIOGRAM EXISTING ACCESS (RHETT) Imaging Routine Acute cholecystitis Expected: 06/15/2022, Expires: 06/16/2023 [facility] Work Phone: Comment on above: Expected: 06/15/2022 , Expires: 06/16/2023 Start: 05-15-2022 Plain chest X-ray XR chest 1V portab [facility] Start: 05-15-2022 XR Chest Single view [facility] Start: 05-15-2022 CT angiography of thorax CT angio chest PE protocol [facility] Start: 05-15-2022 CT Chest [facility] Start: 05-15-2022 Bacteria identified in Blood by Culture [facility] Start: 03-02-2022 Screening for malignant neoplasm of breast Mammography [facility] Start: 01-17-2022 COVID-19 Vaccine (2 - Pfizer series) COVID-19 Vaccine (2 - Pfizer series) [facility] Start: 12-25-2021 Annual Wellness Visi t (G0439) Annual Wellness Visit (G0439) [facility] Start: 12-16-2021 [facility] Start: 09-07-2020 Duplex scan of lower limb veins US venous duplex [facility] Start: 2018 Screening for osteoporosis Bone Densitometry [facility] Start: 2013 RSV vaccine (optiona l 60+ years) RSV vaccine (optional 60+ years) [facility] Start: 08-25-2003 Shingles (RZV) Vacci ne (1 of 2) Shingles (RZV) Vaccine (1 of 2) [facility] Start: 1998 Screening for malignant neoplasm of colon [facility] Start: 08-25-1971 Hepatitis C screening Hepatitis C An tibody [facility] Start: 08-25-1971 Tetanus + diphtheria + acellular pertussis vaccine (product) Tdap Booster [facility] Start: 1953 Screening for malignant neoplasm of colon Colonoscopy [facility] CHOLECYSTECTOMY, LAPAROSCOPIC CHOLECYSTECTOMY, LAPAROSCOPIC Routine scheduled Acute cholecystitis PERI[facility]AT[facility] CHOLECYSTECTOMY, LAPAROSCOPIC CHOLECYSTECTOMY, LAPAROSCOPIC Routine scheduled Acute cholecystitis [facility] End: 07-13-2022 Ecg routine ecg w/least 12 lds trcg only w/o i&r EKG 12 LEAD - PERFORM MUSE Routine Once for 1 Occurrences starting 07/13/2022 until 07/13/2022 [facility] Work Phone: Comment on above: Once for 1 Occurrenc es starting 07/13/2022 until 07/13/2022 Patient Education [facility] Work Phone: Patient referral [facility] Work Phone: Immunizations Immunization Date Immunization Notes Care Provider [facility] 01-02-2023 influenza virus vaccine, unspecified formulation Ketty Alicia [facility] 12-27-2021 Influenza, injectabl e, high-dose seasonal, quadrivalent, 0.7 mL, preservative free (KOF=199) Maegan Morris RN [facility] 12-27-2021 SARS-CoV-2 (COVID-19 ) [id number] Ketty Alicia [facility] 12-27-2021 influenza virus vaccine, unspecified formulation [facility] 03-25-2021 COVID-19 mRNA, Comirnaty (Pfizer) DO Ward Zuniga Work Phone: [facility] 01-25-2021 SARS-CoV-2 (COVID-19 ) Ad26 vaccine, recombinant MARYCARMEN NAVA [facility] 01-07-2021 influenza virus vaccine, unspecified formulation [employer] [facility] 01-07-2021 influenza, high dose seasonal, preservative-free Maegan Morris RN [facility] 01-07-2021 pneumococcal polysaccharide vaccine, 23 valent Maegan Morris RN [facility] 07-10-2020 COVID-19 mRNA, Comirnaty (Pfizer) DO Ward Zuniga Work Phone: [facility] 06-25-2020 SARS-CoV-2 (COVID-19 ) Ad26 vaccine, recombinant MARYCARMEN NAVA [facility] 06-18-2020 COVID-19 mRNA, Comirnaty (Pfizer) DO Ward Zuniga Work Phone: [facility] 05-25-2020 SARS-CoV-2 (COVID-19 ) Ad26 vaccine, recombinant MARYCARMEN NAVA [facility] 12-09-2019 influenza virus vaccine, unspecified formulation [employer] [facility] 12-09-2019 pneumococcal conjuga te vaccine, 13 valent Maegan Morris RN [facility] 12-09-2019 Seasonal trivalent influenza vaccine, adjuvanted, preservative free Maegan Morris RN [facility] 01-30-2019 KENALOG - 10 mg Michael Colunga Other [employer] Other 12-27-2018 influenza virus vaccine, unspecified formulation Ketty Orzech [facility] 12-27-2018 Seasonal trivalent influenza vaccine, adjuvanted, preservative free Maegan Morris RN [facility] 01-25-2018 influenza virus vaccine, unspecified formulation Ketty Orzech [facility] 01-25-2018 Influenza, injectabl e, Madin Ghislaine Canine Kidney, quadrivalent with preservative Maegan Morris RN [facility] 12-27-2016 influenza virus vaccine, unspecified formulation Ketty Orzech [facility] 12-27-2016 influenza, injectabl e, quadrivalent, preservative free Maegan Morris RN [facility] 07-07-2016 Kenalog -40 mg Michael Colunga Other [employer] Other 01-25-2016 Kenalog -40 mg Michael Colunga Other [employer] Other 11-26-2015 influenza virus vaccine, unspecified formulation Ketty Orzech [facility] 10-19-2015 Kenalog -40 mg Michael Colunga Other [employer] Other 01-22-2013 influenza virus vaccine, unspecified formulation Ketty Orzech [facility] 01-22-2013 influenza, seasonal, injectable Maegan Morris RN [facility] 03-13-2009 novel [id number], preservative-free, injectable Maegan Morris RN [facility] 01-05-2000 hepatitis B vaccine, adult dosage Maegan Morris RN [facility] 08-02-1999 hepatitis B vaccine, adult dosage Maegan Morris RN [facility] 06-29-1999 hepatitis B vaccine, adult dosage Maegan Morris RN [facility] Payers Date Payer Category Payer Self-pay [id number] 2022 Medicare [id number] 2022 Medicare [employer] [id number] 2022-Present [address] [place] [address] HMO [id number] 2022 Unknown [id number]. 1.13.56.2.7.3.6 [id number] 2021 Unknown [id number] 1953 Unknown [id number] 2.16.840.1.695141.3.579.2. 1953 Unknown [id number] 2.16.840.1.862481.3.579.2. 1953 Unknown [id number] 2.16.840.1.055188.3.579.2. 1953 Unknown [id number] 2.16.840.1.696494.3.579.2 1953 Unknown [id number] 2.16.840.1.352416.3.579.2. 1953 Unknown [id number] 2.16.840.1.904260.3.579.2. 1953 Unknown [id number] 2.16.840.1.116662.3.579.2. 1953 Unknown [id number] 2.16.840.1.639315.3.579.2. 1953 Unknown [id number] 2.16.840.1.861711.3.579.2. 1953 Unknown [id number] 2.16.840.1.597410.3.579.2. 1953 Unknown [id number] 2.16.840.1.338665.3.579.2.732 1953 Unknown [id number] 2.16.840.1.442691.3.579.2.73 1953 Unknown [id number] 2.16.840.1.734192.3.579.2.73 1953 Unknown [id number] 2.16.840.1.853197.3.579.2.73 1953 Unknown [id number] 2.16.840.1.696723.3.579.2.73 1953 Unknown [id number] 2.16.840.1.268943.3.579.2.73 1953 Unknown [id number] 2.16.840.1.727565.3.579.2.356 1953 Unknown [id number] 2.16.840.1.257311.3.579.2.356 1953 Unknown [id number] 2.16.840.1.187239.3.579.2. 1953 Unknown [id number] 2.16.840.1.730939.3.579.2. 1953 Unknown [id number] 2.16.840.1.841658.3.579.2. 1953 Unknown [id number] 2.16.840.1.789124.3.579.2. 1953 Unknown [id number] 2.16.840.1.108242.3.579.2. 1953 Unknown [id number] 2.16.840.1.722202.3.579.2. 1953 Unknown [id number] 2.16.840.1.922529.3.579.2.1259 1953 Unknown [id number] 2.16.840.1.140828.3.579.2.1258 1953 Unknown [id number] 2.16.840.1.839532.3.579.2.1258 1953 Unknown [id number] 2.16.840.1.909132.3.579.2.1258 1953 Unknown [id number] 2.16.840.1.200397.3.579.2.1258 1953 Unknown [id number] 2.16.840.1.575541.3.579.2.1258 1953 Unknown [id number] 2.16.840.1.276915.3.579.2.1258 1953 Unknown [id number] 2.16.840.1.680728.3.579.2.1258 1953 Unknown [id number] 2..840.1.358937.3.579.2.1258 1953 Unknown [id number] 2.16.840.1.023325.3.579.2.125 Unknown [id number] Unknown [id number] 2.16.840.1.718671.3.579.2.531 Unknown [id number] 2.16.840.1.830668.3.579.2.531 Unknown [id number] 2.16.840.1.152162.3.579.2.531 Unknown [id number] 2.16.840.1.032924.3.579.2.531 Unknown [id number] 2.16.840.1.040246.3.579.2.531 Unknown [id number] 2.16.840.1.891222.3.579.2.531 Unknown [id number] 2.16.840.1.096809.3.579.2.531 Unknown [id number] 2.16.840.1.861737.3.579.2.531 Unknown [id number] 2.16.840.1.081828.3.579.2.531 Social History Date Type Detail Facility Start: 03-31-2020 End: 02-27-2023 Tobacco smoking status NHIS Ex-smoker (finding) [facility] Start: 1955 Sex Assigned At Female F [facility] Sex Assigned At Female [employer] Other Start: 05-15-2022 End: 12-17-2022 Tobacco smoking status NHIS Current some day smoker [facility] End: 03-27-2009 History of tobacco use [...] Start: 06-22-2022 End: 03-02-2023 Tobacco smoking status GAIS Never smoked tobacco (finding) [facility] Tobacco smoking status Never [facility] Goals Date Patient Goal Desired Activity /State Functional Status Date Assessment Result Facility 03-02-2023 Functional Status N/A [facility] 09-26-2022 Functional Status N/A [facility] 07-18-2022 Functional Status No [facility] 11-30-2021 Functional Status N/A [facility] Clinical Notes 12-29-2020 to 03-02-2023 Note [...] provider. Document Revised: 07/22/2021 Document Reviewed: 07/22/2021 [employer] Patient Education 2022 [employer]. Follow Up Care 11/30/2021 13:34:28 With:DARRYN Alicia APRN, Ketty Jaeger, SHAHNAZ, URL Address: When:Within 1 Year(s) [facility] [place] 02-27-2023 Progress note Note Date/Time February 27, 2023 2:36pm [facility] [address] [place] [address] Wound Center Provider Note Signed Patient: Gerry Victoria MR#: [id number] : 1955 Acct:[id number] Age/Sex: 67 / F Copies to: DO Adelia Cruz, CUBA~ HPI Date of Visit Date of Visit: Date of Service: 02/27/2023 Time of Service: 14:33 Narrative HPI: 02/02/23 Gerry is a 67 year old presenting to [facility] wound care for an initialvisit for the [...] tolerate the treatment. Had been referred to [place] [facility] at her last visit here and will have to see what happened with that. 02/13/23 appears to have fungal rash, topical nystatin was escribed, unna wrap, c as before 02/27/23 no fungal rash but now looks like dermatitis and so topical steroid and coconut oil was applied, has venous procedure in [place] tomorrow, 2 week appt here, can call if she feels like she needs an antibiotic if the steroid doesn't calm down the skin Subjective Pain Left Lower Leg: Pain Description: Intermittent Pain Intensity: 0 Wound/Ulcer History When did wound start?: January 2023 Left lateral lower leg ulcer Mode of Arrival/ Supervisor Advertising Dispatch Clerks: Personal vehicle Lives with:: Alone Appetite Description: Within Normal Limits Who helps w/ dressing change?: Home Health Why Do You Need Help?: Can't Reach Ulcer, Limited mobility, Unsafe leave home byself and Taxing effort to leave home Smoking Status: Former smoker [facility] Medical History (Updated 02/27/23 @ 14:36 by [...] Appearance: Beefy Red, Epithelial Tissue or Bridge, [place] and Yellow Percent of Wound Bed Granulated/Red: 98 Percent of Devitalized: 2 Length (cm): 12.0 Width (cm): 10.0 Depth (cm): 0.1 CM Sq: 120.000 Surrounding Tissue Appearance: [place] and Hyperpigmented Surrounding Tissue Temp: Warm Drainage [...] By: <Electronically signed by CUBA Saldana> 02/27/[address] [place] [address] Work Phone: 1(609) 815-237511-20-2023 Progress note Author Adelia Saldana [facility] February 13, 2023 10:33am Note Date/Time February 13, 2023 10:33am [facility] [address] [place] [address] Wound Center Provider Note Signed Patient: Gerry Victoria MR#: [id number] : 1955 Acct:[id number] Age/Sex: 67 / F Copies to: DO Adelia Cruz APRN~ HPI Date of Visit Date of Visit: Date of Service: 02/13/2023 Time of Service: 10:31 Narrative HPI: 02/02/23 Gerry is a 67 year old presenting to [facility] wound care for an initialvisit for the [...] rash, topical nystatin was escribed, unna wrap, [facility] as before Subjective Pain Left Lower Leg: Pain Description: Intermittent Pain Intensity: 4 Pain Management Techniques Other/Comment: PAIN IS PINCHY Wound/Ulcer History When did wound start?: January 2023 Left lateral lower leg ulcer 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 of 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/ Supervisor Advertising Dispatch Clerks: Personal vehicle Lives with:: Alone Appetite Description: Within Normal Limits Who helps w/ dressing change?: Home Health Why Do You Need Help?: Can't Reach Ulcer, Limited mobility, Unsafe leave home byself and Taxing effort to leave home Smoking Status: Former smoker [facility] Medical History (Updated 02/13/23 @ 10:33 by [...] Breakdown Bed Appearance: Epithelial Tissue or Bridge, [place] and Yellow Percent of Wound Bed Granulated/Red: 95 Percent of Devitalized: 5 Length (cm): 12.5 Width (cm): 8.5 Depth (cm): 0.1 CM Sq: 106.250 Surrounding Tissue Appearance: [place] and Hyperpigmented Surrounding Tissue Temp: Warm Drainage [...] By: <Electronically signed by CUBA Saldana> 02/13/231032 [facility] Work Phone: 1(625) 159-958911-09-2023 Progress note Author Humphrey Major [facility] February 02, 2023 9:37am Note Date/Time February 02, 2023 7 :50am [facility] [address] [place] [address] Wound Center Provider Note Signed Patient: Gerry Victoria MR#: [id number] : 1955 Acct:[id number] Age/Sex: 67 / F Copies to: MD Ward Almaguer DO Tonia Copsey, APRN~ HPI Date of Visit Date of Visit: Date of Service: 02/02/2023 Time of Service: 07:50 Narrative HPI: 02/02/23 Gerry is a 67 year old presenting to [facility] wound care for an initialvisit for the [...] lateral lower leg ulcer Mode of Arrival/ Supervisor Advertising Dispatch Clerks: Personal vehicle Lives with:: Alone Appetite Description: Within Normal Limits Who helps w/ dressing change?: Home Health Why Do You Need Help?: Can't Reach Ulcer, Limited mobility, Unsafe leave home byself and Taxing effort to leave home Smoking Status: Former smoker [facility] Medical History (Updated 02/02/23 @ 07:52 by [...] Stasis Ulcer Thickness: Skin Breakdown Bed Appearance: [place] and Yellow Percent of Wound Bed Granulated/Red: 90 Percent of Devitalized: 10 Length (cm): 4 Width (cm): 2 Depth (cm): 0.1 CM Sq: 8.000 Surrounding Tissue Appearance: [place] and Hyperpigmented Surrounding Tissue Temp: Warm Drainage [...] 13 Dictated By: Adelia Saldana APRN DD/ 075 Signed By: <Electronically signed by CUBA Saldana> 02/02/23 0754 <Electronically signed by MD Humphrey Major> 02/02/23 0937 [facility] Work Phone: [phone]) 730-706110-09-2023 Evaluation note* Encounter Date Diagnosis Assessment Notes [...] in a month to assess her progress. [employer] Other 07-31-2023 Evaluation note* Encounter Date Diagnosis [...] her back when the ultrasound is complete. [employer] Other 07-11-2023 NoteMicrobiology PROCEDURE: Blood Culture Charcoal [R1] SOURCE: Blood BODY SITE: Arm L COLLECTED DATE/TIME: 09/27/2022 01:12 EDT RECEIVED DATE/TIME: 09/27/2022 01:37 EDT START DATE/TIME: 09/27/2022 01:37 EDT FREE TEXT SOURCE: IV start Bala SNOWDEN, Michelle Mckenna PA-C, Michelle Weber. FINAL REPORTS Final Report [] Verified Date/Time: 10/04/2022 07:00 EDT No growth at 7 days. Performing Locations R1: This test was performed at: [facility], [address] [place] [address], [id number] [place] [address], [address] [place], [place] [address]Comment on above:Performed By: #### [id number] #### [facility] [address] [place] [address] [id number] NoteMicrobiology PROCEDURE: Blood Culture Charcoal [R1] SOURCE: Blood BODY SITE: Arm R COLLECTED DATE/TIME: 09/27/2022 01:22 EDT RECEIVED DATE/TIME: 09/27/2022 01:37 EDT START DATE/TIME: 09/27/2022 01:37 EDT FREE TEXT SOURCE: rt ac Bala SNOWDEN, Michelle Mckenna PA-C, Michelle Weber. FINAL REPORTS Final Report [] Verified Date/Time: 10/04/2022 07:00 EDT No growth at 7 days. Performing Locations R1: [facility], [address] [place] [address], [id number] [place] [address], [address] [place], [place] [address]Comment on above:Performed By: #### [id number] #### [facility] [address] [place] [address] [id number] Evaluation + Plan noteExtracted from: Title:Admission H & P Author:Maliha PADILLA DO Date:09/27/22 1. Cellulitis of leg (L03.11 9: Cellulitis of unspecified part of limb) IV Zosyn. Patient was given 1 dose of vancomycin in the emergency department. Will screen for MRSA. If MRSA screen is positive we will continue vancomycin. 2. CAD (coronary atherosclerotic disease) (I25.10: Atherosclerotic heart disease of [place] coronary artery without angina pectoris) No active [...] deep vein thrombosis (DVT) prophylaxis (Z79.899: Other custodial (current) drug therapy) SCD, enoxaparin Orders: acetaminophen, [...] Extracted from: Title:ED Note Author:Bala SNOWDEN, Michelle Weber . Date:09/27/22 1. Cellulitis of leg (L03.11 9: [...] Date:12/01/2022 01:00:00 PM Scheduled Provider:MARYCARMEN NAVA PA-C Location:[facility] [place] Appointment Type:URO Office Visit Diagnostic Tests Pending * Blood Culture Charcoal 09/27/22 * Blood Culture Charcoal 09/27/22 * MRSA Screen 09/27/22 * CBC w/ Auto Diff 09/28/22 * Basic Metabolic Panel 09/28/22 * Magnesium Level 09/28/22 [facility]07-04-2023 NoteI was called to the bedside [...] soon as possible. Alexx Beal DO, FAAEMFisher Wolfe Medical CenterComment on above:Result Comment: Electronically Signed By: Alexx Beal DO.br\Date and Time Signed: 09/27/22 08:17 [id number] Hospital Discharge instructions Patient Education 09/27/2022 08:15:11 Cellulitis, Adult, Qvfr-dk-Vetx Cellulitis, Adult Cellulitis is a skin infection. [...] Follow these instructions at home: Medicines Take wvth-lqk-skzkqmk and prescription medicines only as told by [...] provider. Document Revised: 12/23/2021 Document Reviewed: 12/23/2021 [employer] Patient Education 2022 [employer]. Follow Up Care 09/26/2022 22:54:12 With:WARD ZUNIGA Address: [address] [address] When:09/30/2022 [facility]07-04-2023 NoteChief Complaint pt to ED with [...] % (09/27/22:12:00) Lymph Auto: 18 % (09/27/22:12:00) Gilchrist Auto: 11.2 % (09/27/22:12:00) Eos Auto: 8.4 % High (09/27/22:12:00) Basophil Auto: 1 % (09/27/22:12:00) Neutro Absolute: 3.6 E9/L (09/27/22:12:00) Lymph Absolute: 1.1 E9/L (09/27/22:12:00) Gilchrist Absolute: 0.7 E9/L (09/27/22:12:00) Eos Absolute: 0.5 E9/L (09/27/22:12:00) Basophil Absolute: 0.1 E9/L (09/27/22:12:00) Sed Rate Automated: 25 mm/hr (09/27/22:12:00) Glucose Lvl: 84 mg/dL (09/27/22 01:12:00) BUN: 17 mg/dL (09/27/22 01:12:00) Creatinine: 1.2 mg/dL (09/27/22 01:12:00) eGFR: 49 mL/min/1.73 m2 Low (09/27/22:12:00) BUN/Creat [...] atherosclerotic disease) (I25.10: Atherosclerotic heart disease of [place] coronaryartery without angina pectoris) No active anginal complaints. We will resume home medications once reconciled 3. RLS (restless legs syndrome) (G25.81: Restless legs syndrome) Resume home medications once reconciled. 4. Hypo (more content not included)...[facility]:Result Comment: Electronically Signed By: Maliha PADILLA DO\Date and Time Signed: 09/27/22 04:19 [id number] Hospital Discharge instructions Patient Education 07/26/2022 13:13:28 Post Op Patient Instructions - FT (CUSTOM) 07/26/2022 12:47:31 Minimally Invasive Cholecystectomy, Care After, Fnss-jy-Xffh Minimally Invasive Cholecystectomy, Care After What can [...] Follow these instructions at home: Medicines Take yizo-lew-uvgjoin and prescription medicines only as told by [...] cannot use soap and water, use hand construction recruiter. ?Change your bandage. ?Leave stitches (sutures) or [...] provider. Document Revised: 09/14/2021 Document Reviewed: 09/14/2021 [employer] Patient Education 2022 [employer]. 07/26/2022 12:45:51 Cholelithiasis Cholelithiasis Cholelithiasis is a [...] Follow these instructions at home: Medicines Take kqff-dkv-dmphwtd and prescription medicines only as told by [...] important. Where to find more information National [place] of Diabetes and Digestive and Kidney Diseases: [...] provider. Document Revised: 02/03/2020 Document Reviewed: 02/03/2020 [employer] Patient Education 2022 [employer]. Follow Up Care 07/15/2022 10:10:38 With:trauma clinic Address: [address] [place] [address], second floor, [address] [place] [address]- [phone] When:1 to 2 weeks Comments:plan for telephone follow up 08/05/22. We will call you between the hours of 10 am and 1pm on that day. [facility]05-02-2023 Evaluation + Plan noteExtracted from: Title:ANES Post General Author:Hugo Winston DO Date:07/26/22 Plan Transfer/Discharge: Patient exhibiting no signs of N/V. Hydration status is adequate. Extracted from: Title:M[facility] Basic PRE Author:Luca Winston DO Date:07/26/22 Plan [place] [employer] of Anesthesiologists (ASA) physical status classification: Class III. Anesthetic Preoperative Plan: Anesthesia General. Extracted from: Title:Mundo Basic PRE Author:Luca Winston DO Date:07/26/22 Plan [place] [employer] of Anesthesiologists (ASA) physical status classification: Class III. Anesthetic Preoperative Plan: Anesthesia General. Future Appointments Appointment Date:08/05/2022 11:00:00 AM Scheduled Provider: [facility] Type:Trauma Phone Visit (FT) Appointment Date:12/01/2022 01:00:00 PM Scheduled Provider:MARYCARMEN NAVA PA-C Location:[facility] Appointment Type:URO Office Visit [facility]04-19-2023 NoteProgress Note: Clinic Visit after hospitalization [...] - continue perc merlyn tube until surgery Niikta Hein MDUniversity [facility]als [facility]04-19-2023 History of Present illness Narrative* [...] surgery Nikita Hein MD documented in this [id number] NoteIR CONSULT Procedure: cholangiogram and percutaneous cholecystotomy [...] at home Case discussed with IR attending video production specialist El Hollis resident buyer PGY-3[facility] [id number] History and physical note* El Hollis MD [...] at home Case discussed with IR attending video production specialist El Hollis resident buyer PGY-3 [employer] Work Phone: 1(654) 991-107904-12-2023 History and physical note* El Hollis MD - 07/06/2022 9:42 PM EDT IR CONSULT Procedure: cholangiogram and percutaneous cholecystotomy tube exchange Date of procedure: 07/05/2022 - patient called nursing center stating she did not have adequate drain care supplies and was not sure how to care for drain - El Hollsi spoke to Td (nurse at contact center) via phone at 21:03 - drain was functioning well (180cc bilious output in last 24 hours) - no fever - instructed patient to return to referring surgery clinic tomorrow for drain care instructions, supplies, and possibly to set up nursing care if patient is unable to care for drain at home Case discussed with IR attending video production specialist El Hollis resident buyer PGY-3 documented in this [id number] Telephone encounter Note* Telephone Encounter - Kendra Harrison RN - 07/06/2022 8:53 PM EDT Situation: Pt called states she is unsure how to flush gall bladder tube since it was changed yesterday. Background: 07/05/22 Procedure: Cholecystogram with catheter exchange Assessment: See triage Recommendation: Contacted IR video production specialist, Dr Hollis advised for pt to contact [...] No Protocols used: Post-Op Incision Symptoms and Oolmabzwe-N-JY [id number] Miscellaneous Notes* Telephone Encounter - Kendra Harrison RN - 07/06/2022 8:53 PM EDT Situation: Pt called states she is unsure how to flush gall bladder tube since it was changed yesterday. Background: 07/05/22 Procedure: Cholecystogram with catheter exchange Assessment: See triage Recommendation: Contacted IR video production specialist, Dr Hollis advised for pt to contact [...] No Protocols used: Post-Op Incision Symptoms and Dgbcbmbcn-I-SR documented in this [id number] Telephone encounter Note* Telephone Encounter - Taniya Coley - 07/06/2022 9:10 AM EDT Sindy Ratliff Patient: Gerry Victoria [phone] Ms. Victoria has an appt w/Ritter on 07/13/2022 at 2:45 pm. Pt complaining about severe pain last night, when she moved, it was an ache. She did not tell me where the pain was coming from, when I asked her. She stated that today she feels better, but she was concerned about the pain she experienced last night 07/05/2022. [id number] Miscellaneous Notes* Telephone Encounter - Taniya Coley - 07/06/2022 9:10 AM EDT Sindy Ratliff Patient: Gerry Victoria [phone] Ms. Victoria has an appt w/Ritter on 07/13/2022 at 2:45 pm. Pt complaining about severe pain last night, when she moved, it was an ache. She did not tell me where the pain was coming from, when I asked her. She stated that today she feels better, but she was concerned about the pain she experienced last night 07/05/2022. documented in this [id number] NoteEXAMINATION: XA CHOLANGIOGRAM EXISTING ACCESS (RHETT) 07/05/2022 [...] successful exchange of drainage catheter. MACRO: NoneThe [facility]04-11-20[facility] NotePOST-PROCEDURE NOTE Procedure: Cholecystogram with catheter exchange Pre-operative Diagnosis: History of acute cholecystitis managed with existing catheter. Post-operative Diagnosis: Same as above Attending: Dr. Fernanod Avionic Technician: None A TIME OUT was performed prior [...] full procedural details. Marcella Fernando MD RadiologyThe [facility]04-11-2023 NoteEXAMINATION: XA CHOLANGIOGRAM EXISTING ACCESS (RHETT) [...] successful exchange of drainage catheter. MACRO: None [id number] NotePre-Procedure Note HISTORY: Procedure: Cholangiogram via existing [...] Directives (Living will, health care power of research attorney): none Patient Recent Code Status: Prior Code Status For This Procedure: Full Code Marcella Fernando MD RadiologyUniversity [facility]als [facility]04-11-2023 Telephone encounter Note* Telephone Encounter - Anya Morelos - 07/05/2022 3:11 PM EDT Patient returned clinic call. Informed of message per notes below. Patient verbalized understandingand voiced no further questions. [id number] Miscellaneous Notes* Telephone Encounter - Anya Morelos [...] left the voice message. documented in this [id number] Miscellaneous Notes* Telephone Encounter - Anya Morelos [...] appt date and time. documented in this [id number] Telephone encounter Note* Telephone Encounter - Taniya [...] and accepted the appt date and time. [id number] Note* Post-Procedure Note - Marcella Fernando MD - 07/05/2022 2:44 PM EDT POST-PROCEDURE NOTE Procedure: Cholecystogram with catheter exchange Pre-operative Diagnosis: History of acute cholecystitis managed with existing catheter. Post-operative Diagnosis: Same as above Attending: Dr. Fernando Avionic Technician: None A TIME OUT was performed prior [...] full procedural details. Marcella Fernando MD Radiology [employer] Work Phone: 1(587) 668-145404-11-2023 Miscellaneous Notes* Post-Procedure Note - Marcella Fernando MD - 07/05/2022 2:44 PM EDT POST-PROCEDURE NOTE Procedure: Cholecystogram with catheter exchange Pre-operative Diagnosis: History of acute cholecystitis managed with existing catheter. Post-operative Diagnosis: Same as above Attending: Dr. Fernando Avionic Technician: None A TIME OUT was performed prior [...] Directives (Living will, health care power of research attorney): none Patient Recent Code Status: Prior Code Status For This Procedure: Full Code Marcella Fernando MD Radiology documented in this [id number] Note* Pre-Procedure Note - Marcella Fernando MD [...] Directives (Living will, health care power of research attorney): none Patient Recent Code Status: Prior Code Status For This Procedure: Full Code Marcella Fernando MD Radiology [id number] Telephone encounter Note* Telephone Encounter - Taniya Coley - 06/27/2022 1:27 PM EDT Pt called c/o sx of poor leg circulation,and Gaudencio spoke to her to triage the patient. [id number] Miscellaneous Notes* Telephone Encounter - Taniya Coley - 06/27/2022 1:27 PM EDT Pt called c/o sx of poor leg circulation,and Gaudencio spoke to her to triage the patient. documented in this [id number] NoteProgress Note: Clinic Visit after hospitalization for [...] for 2 mg QID Nikita Hein MDThe [facility]03-25-2023 Note* Addendum Note - Nikita Hein MD - 06/18/2022 3:47 PM EDTAddended by: NIKITA HEIN on: 06/18/2022 03:47 PM Modules accepted: Orders, Level of Service [id number] Miscellaneous Notes* Addendum Note - Nikita Hein MD - 06/18/2022 3:47 PM EDTAddended by: NIKITA HEIN on: 06/18/2022 03:47 PM Modules accepted: Orders, Level of Service documented in this [id number] History of Present illness Narrative* Nikita Hein [...] QID Nikita Hein MD documented in this [id number] Telephone encounter Note* Telephone Encounter - Laura Faust - 06/17/2022 11:27 AM EDT Sophy transferred phone call to me, when the patient and I started talk I realized it was the patientI had Sophy working on since Dr. Hein seen her in clinic on [facility]. Sophy said she spoke to patient yesterday, so I just told her what Sophy told me that Dr. Hein will handle the Rx to have the scan done out where she lives and that Sophy will get it to her in the mail by Monday [id number] Miscellaneous Notes* Telephone Encounter - Laura Faust - 06/17/2022 11:27 AM EDT Sophy transferred phone call to me, when the patient and I started talk I realized it was the patientI had Sophy working on since Dr. Hein seen her in clinic on [facility]. Sophy said she spoke to patient yesterday, so I just told her what Sophy told me that Dr. Hein will handle the Rx to have the scan done out where she lives and that Sophy will get it to her in the mail by Monday documented in this [id number] Telephone encounter Note* Telephone Encounter - Taniya Coley - 06/16/2022 2:02 PM EDT Sindy Morales, Patient: Gerry Victoria [phone] Ms. Victoria had a visit with Dr. Conley on Monday06/15/2022, [facility]. Questions: Ultrasound order was placed for Ms. Victoria, do she have to come her to [facility] to have the ultrasound, or can she have the ultrasound done in [place]? (there is not a [facility] in [place]) Medication refill of Ropinirole 2mg 1-tab QD was not received by her pharmacy, can you call in the prescription to my pharmacy at ([facility] ) [phone]?. I am waiting for Carmen, or and or Dr. Conley to respond. Sophy Knowles was told that Dr. Hein was out of town and that she will receive the prescription in the mail.I will call the patient to find out what hospitals she will be going to in [place] [phone] fax:[phone] Gaudencio spoke to her about the prescription and to contact her pharmacy about the ropinirole 2 mg to [facility]. Addendum: IR procedure, Gaudencio will follow-up with [facility] to see if they can do the IR procedure, we will submit or fax orders at that time. [id number] Miscellaneous Notes* Telephone Encounter - Taniya Coley - 06/16/2022 2:02 PM EDT Sindy Morales, Patient: Gerry Victoria [phone] Ms. Victoria had a visit with Dr. Conley on Monday06/15/2022, seen by Dr. Hein in yesterday's clinic. Questions: Ultrasound order was placed for Ms. Victoria, do she have to come her to [facility] to have the ultrasound, or can she have the ultrasound done in [place]? (there is not a [facility] in [place]) Medication refill of Ropinirole 2mg 1-tab QD was not received by her pharmacy, can you call in the prescription to my pharmacy at ([facility] ) [phone]?. I am waiting for Carmen, or and or Dr. Conley to respond. Sophy documented in this [id number] Miscellaneous Notes* Telephone Encounter - Taniya Coley - 06/16/2022 2:02 PM EDT Sindy Morales, Patient: Gerry Victoria [phone] Ms. Victoria had a visit with Dr. Conley on Monday06/15/2022, seen by Dr. Hein in yesterday's clinic. Questions: Ultrasound order was placed for Ms. Victoria, do she have to come her to [facility] to have the ultrasound, or can she have the ultrasound done in [place]? (there is not a [facility] in [place]) Medication refill of Ropinirole 2mg 1-tab QD was not received by her pharmacy, can you call in the prescription to my pharmacy at [facility] [phone]?. I am waiting for Carmen, or and or Dr. Conley to respond. Sophy Pt was told that Dr. Hein was out of town and that she will receive the prescription in the mail.I will call the patient to find out what hospitals she will be going to in [place] [phone] fax:[phone] Gaudencio spoke to her about the prescription and to contact her pharmacy about the ropinirole 2 mg to [facility]. documented in this [id number] Miscellaneous Notes* Telephone Encounter - Taniya Coley - 06/16/2022 2:02 PM EDT Sindy Carmen, Patient: Gerry Victoria [phone] Ms. Victoria had a visit with Dr. Conley on Monday06/15/2022, seen by Dr. Hein in yesterday's clinic. Questions: Ultrasound order was placed for Ms. Victoria, do she have to come [place] [facility] [place] have [place], or can she have the ultrasound done in [place]? (there is not a [facility] in [place]) Medication refill of Ropinirole 2mg 1-tab QD was not received by her pharmacy, can you call in the prescription to my pharmacy at ([facility] ) [phone]?. I am waiting for Carmen, or and or Dr. Conley to respond. Sophy Pt was told that Dr. Hein was out of town and that she will receive the prescription in the mail.I will call the patient to find out what hospitals she will be going to in [place] [phone] fax:[phone] Gaudencio spoke to her about the prescription and to contact her pharmacy about the ropinirole 2 mg to [facility]. Addendum: IR procedure, Gaudencio will follow-up with [facility] to see if they can do the IR procedure, we will submit or fax orders at that time. documented in this [id number] Telephone encounter Note* Telephone Encounter - Maegan [...] ( currently 0/10, when its tugged on 310) sharp and limited, doesn't last 7. FEVER: [...] Not assessed Protocols used: Post-Op Symptoms and Ezokmjqkd-P-EE, Breathing Mbbmauxnxq-L-UN [id number] Miscellaneous Notes* Telephone Encounter - Maegan Morris [...] Not assessed Protocols used: Post-Op Symptoms and Zvojwtbzk-M-RU, Breathing Kfkjzsvhim-D-FB documented in this [id number] NoteDISCHARGE SUMMARY [address] [address] Gerry Victoria Date of : 1955 66 year oldfemale Attending Ward Graves MD Date of Admission 05/16/2022 Date of Discharge 05/25/2022 [facility] DIVISION OF ACUTE CARE SURGERY [...] and h/o paroxysmal SVT who presented to [facility] with epigastric pain with nausea and vomiting. Patient describes onset of pain on prior day that has increased since then. Shortly after onset of pain, patient experienced nausea and persistent vomiting, now unable to tolerate PO intake. Denies fevers, chills. She presented to [facility] where EKG demonstrated 'hyperacute T waves' in multiple leads without evidence of STEMI. Troponin originally 139, then 381 on repeat. CTA was performed and did not reveal dissection or PE. CT did demonstrate acute inflammation of the gallbladder with a stone at the neck. A central line was placed for resuscitation purposes and the patient was transferred to [facility] for further evaluation. Prior to transfer, lab work without leukocytosis (10.7) and LFTs/Lipase without abnormality. ACS consulted upon arrival to [facility] for cholecystitis. She was admitted to the SDU for telemetry under EGS but transferred to [facility] on 05/20/22 SIGNIFICANT FINDINGS: N/A Incidental findings reviewed by AEM on 05/24/22. No incidental findings to discuss. HOSPITAL COURSE: 05/16/2022: Transferred from [facility] ED with cholecystitis, up-trending troponin, and unclear EKG findings. Up-trending leukocytosis, down-trending troponin by PM. Cardiology following. Zosyn started. 05/17/2022: rCT with worsening gallbladder inflammation w/o free air or rupture. Percutaneous cholecystotomy tube placement with IR. 05/19/2022: Bilious emesis, NGT placed 05/20/2022: Transferred to [facility] 05/21/2022: Zosyn course completed (4 days s/p drain) 05/22/2022: YANN, ongoing bilious NGT output 05/23/2022: [facility] with mild non-obstructive diffuse coronary artery [...] - Seen resting supine in bed in [facility] -Neurologic - No focal deficits, clear speech [...] venous stasis t (more content not included)...[facility] [id number] NoteDISCHARGE SUMMARY [place] [address] Gerry Victoria Date of : 1955 66 year oldfemale Attending Ward Graves MD Date of Admission 05/16/2022 Date of Discharge 05/24/2022 [facility] DIVISION OF ACUTE CARE SURGERY [...] and h/o paroxysmal SVT who presented to [facility] with epigastric pain with nausea and vomiting. Patient describes onset of pain on prior day that has increased since then. Shortly after onset of pain, patient experienced nausea and persistent vomiting, now unable to tolerate PO intake. Denies fevers, chills. She presented to [facility] where EKG demonstrated 'hyperacute T waves' in multiple leads without evidence of STEMI. Troponin originally 139, then 381 on repeat. CTA was performed and did not reveal dissection or PE. CT did demonstrate acute inflammation of the gallbladder with a stone at the neck. A central line was placed for resuscitation purposes and the patient was transferred to [facility] for further evaluation. Prior to transfer, lab work without leukocytosis (10.7) and LFTs/Lipase without abnormality. ACS consulted upon arrival to [facility] for cholecystitis. She was admitted to the SDU for telemetry under EGS but transferred to [facility] on 05/20/22 SIGNIFICANT FINDINGS: N/A Incidental findings reviewed by AEReid on 05/24/22. No incidental findings to discuss. HOSPITAL COURSE: 05/16/2022: Transferred from [facility] ED with cholecystitis, up-trending troponin, and unclear EKG findings. Up-trending leukocytosis, down-trending troponin by PM. Cardiology following. Zosyn started. 05/17/2022: rCT with worsening gallbladder inflammation w/o free air or rupture. Percutaneous cholecystotomy tube placement with IR. 05/19/2022: Bilious emesis, NGT placed 05/20/2022: Transferred to [facility] 05/21/2022: Zosyn course completed (4 days s/p drain) 05/22/2022: YANN, ongoing bilious NGT output 05/23/2022: [facility] with mild non-obstructive diffuse coronary artery [...] discharge: improved Diet: (more content not included)...[facility] [id number] Note PHYSICAL THERAPY PROGRESS SUMMARY Patient seen [...] Dep Max Mod Min CG CS DS RI I Comment Supine to sit x Via [...] With Patients permission ordered no equipment via [employer] Order. If any questions contact [facility] DME Provider at [phone]. Pt has rolling walker to use if [...] service d/t achieving PT goals. Dara West LPTA Beeper #[phone] Agree with above; D/C Acute PT this date 2* to modified (I) level of function. Tawny Peñaloza, PT, MPT (B) [phone] NA = Not Assessed, I = Independent, RI = Modified Independent, Sup = Supervised, Set up = Physical Assistance for Set-up Only, Min = Minimal Assistance, Mod = Moderate Assistance, Max = Maximal assistance; Dep = Dependent; AROM = Active Range of Motion; PROM = Passive Range of Motion; MMT = Manual Muscle TestUniversity Hospitals Lake West Medical Center02-27-2023 NoteSusan Didion [id number] Procedure Indication: Other: Myocardial injury due to [...] needed: No Anticoagulation Plan: None Attending: Deandre [facility]02-26-2023 NoteOCCUPATIONAL THERAPY INITIAL EVALUATION Patient seen [...] Dep Max Mod Min CG CS DS RI I Set-Up Comment Feeding x Anticipated, NPO [...] Dep Max Mod Min CG CS DS RI I Set-Up Comment Toilet Transfers x Anticipated [...] Guard Assist/Supervision 4 - Non = Modified Sylvester/Independent ASSESSMENT: Patient is functionally appropriate for discharge [...] Independent Patient will (more content not included)...[facility] [id number] Note PHYSICAL THERAPY PROGRESS SUMMARY Patient seen from 1:27pm to 1:47pm on GC5E unit for 20 minute treatment. SUBJECTIVE: Patient Subjective/Goals: I'm glad you're here. OBJECTIVE: Appearance: IV, Drain-IR x 1, and NG to wall suction (clamped for session) Behavior: Awake, Cooperative Pain: Site/Location: none noted during session Mobility NA Dep Max Mod Min CG CS DS RI I Comment Supine to sit x Transfers [...] With Patients permission ordered no equipment via [employer] Order. If any questions contact [facility] DME Provider at [phone]. 6 Clicks Basic Mobility PT 05/20/2022 Difficulty [...] NA = Not Assessed, I = Independent, RI = Modified Independent, Sup = Supervised, Set up = Physical Assistance for Set-up Only, Min = Minimal Assistance, Mod = Moderate Assistance, Max = Maximal assistance; Dep = Dependent; AROM = Active Range of Motion; PROM = Passive Range of Motion; MMT = Manual Muscle TestThe [facility] [id number] NoteSICU Progress Note Gerry Victoria [id number] LOS: 4 days : Interval History/Events: Pain improved Started vomiting this am Passing gas Background: Gerry Victoria is a 66 year old female with PMH of hypertension, RLS, GERD who presented to [facility] with progressive worsening epigastric pain with nausea and vomiting for the past day. Denies fevers, CP, dyspnea. Found to have elevated T waves and uptrending tropopnins. CT ab with acute inflammation of the gallbladder with a stone at the neck and transferred to [facility]. RUQ US with impacted gallstone at gallbladder [...] 10 120 8 0.74 7.7 05/18/228 2.3 02/22/23 0228 136 3.9 101 27 12 77 [...] without focal consolidation, no pneumothorax - respiratory weed thinner protocol, BPH, IS CARD: #T2MI #possible CAD [...] RUQ US with (more content not included)...[facility] [id number] Note 05/19/22 1540 Assessment and Discharge Planning [...] SW or DC concerns arise. Annabelle Connor, [facility], LSWThe [employer] [id number] NotePHYSICAL THERAPY PROGRESS SUMMARY PT tx cleared by RN. Patient seen from 1354 to 1417 on 5W unit for 23 minute treatment. SUBJECTIVE: Patient Subjective/Goals: oh, look at you! Re: PT untangling lines and wires. OBJECTIVE: Appearance: Resting in bed upon arrival, BP cuff, lithograph operator, Pulse Oximeter, IV, Drain x1, Fu, and [...] Dep Max Mod Min CG CS DS RI I Comment Roll to right sidelying Roll [...] With Patients permission ordered no equipment via [employer] Order. If any questions contact [facility] DME Provider at [phone]. 6 Clicks Basic Mobility PT 05/18/2022 Difficulty [...] NA = Not Assessed, I = Independent, RI = Modified Independent, Sup = Supervised, Set up = Physical Assistance for Set-up Only, Min = Minimal Assistance, Mod = Moderate Assistance, Max = Maximal assistance; Dep = Dependent; AROM = Active Range of Motion; PROM = Passive Range of Motion; MMT = Manual Muscle TestThe [employer] [id number] NoteSICU Progress Note Gerry Victoria [id number] POD#: 0 LOS: 3 days : Interval History/Events: Pain improved Started vomiting this am Passing gas Background: Gerry Victoria is a 66 year old female with PMH of hypertension, RLS, GERD who presented to [facility] with progressive worsening epigastric pain with nausea and vomiting for the past day. Denies fevers, CP, dyspnea. Found to have elevated T waves and uptrending tropopnins. CT ab with acute inflammation of the gallbladder with a stone at the neck and transferred to [facility]. RUQ US with impacted gallstone at gallbladder [...] without focal consolidation, no pneumothorax - respiratory weed thinner protocol, BPH, IS CARD: #T2MI #possible CAD [...] tele - [facility]. Please have NGT connected to [...] or longer GI: (more content not included)...[facility] [id number] NotePHYSICAL THERAPY ACUTE EVALUATION Referral received, chart [...] legs Patient Identified Goal(s): To go home DETECTIVE SERGEANT Status: Pt reports independence with ADLS and [...] in bed, IV, BP cuff, pulse oximeter, supervisor cutting and boning, fu, CVC triple lumen (R), surgical drain [...] 4/5 4/5 L LE 4-/5 4/5 4/5 4/07 28/5 Sensation: pt denies numbness/tingling Mobility: Rolling to [...] With Patients permission ordered no equipment via [employer] Order. If any questions contact [facility] DME Provider at [phone]. 6 Clicks Basic Mobility PT 05/18/2022 Difficulty [...] functional mobility Decreased (more content not included)...[facility] [id number] Note EXAMINATION: XA PERCUTANEOUS CHOLECYSTOSTOMY (RHETT) 05/17/2022 [...] was used for local anesthesia. A 5F Docea Power catheter over its matched stylet was inserted into the gallbladder lumen under ultrasoundguidance. The stylet was removed. An Amplatz wire was passed through the catheter and the catheter removed. Ultrasound was utilized to document wire position within the gallbladder lumen. Serial dilatation was then subsequently performed with an 8 and 10 Belgian dilator. A 10 F all purpose drain [...] successful uncomplicated cholecystostomy tube placement. MACRO: Rissa [facility] [id number] NoteSICU Progress Note Gerry Victoria [id number] POD#: 0 LOS: 2 days : Interval History/Events: Background: Gerry Victoria is a 66 year old female with PMH of hypertension, RLS, GERD who presented to [facility] with progressive worsening epigastric pain with nausea and vomiting for the past day. Denies fevers, CP, dyspnea. Found to have elevated T waves and uptrending tropopnins. CT ab with acute inflammation of the gallbladder with a stone at the neck and transferred to [facility]. RUQ US with impacted gallstone at gallbladder [...] 12 77 12 0.78 7.7 05/17/22410 3.9 05/17/221 1.9 05/17/22410 131 4.1 97 27 11 96 14 0.97 8.1 05/16/22221 136 4.9 100 27 14 119 9 0.76 8.6 CBC/PT/INR WBC RBC Hgb Hct MCV RDW Plt PT aPTT INR 05/18/22227 9.4 3.45 10.1 28.2 82 15.3 177 05/17/22410 34 05/17/22410 1.61 05/17/22410 12.3 4.37 [...] AND Ox3 CV: RRR Pulm: CTAB on Nh Abdomen: still diffusely tender to palpation Extremities: [...] without focal consolidation, no pneumothorax - respiratory weed thinner protocol, BPH, IS CARD: #T2MI #possible CAD [...] CBC Endo Glycemic (more content not included)...[facility] [id number] Note POST-PROCEDURE NOTE Procedure: US guided percutaneous cholecystotomy tube Pre-operative Diagnosis: Acute cholecystitis Post-operative Diagnosis: Same Attending: Kim Fernando MD Avionic Technician: Bunny Wolf TIME OUT was performed prior [...] portion of the procedure. El Hollis MD RadiologyUniversity Hospitals Lake [facility] Center02-21-2023 NotePre-Procedure Note HISTORY: Procedure: US [...] Directives (Living will, health care power of research attorney): yes, Patient Recent Code Status: Full Code Code Status For This Procedure: Full Code El Hollis MD RadiologyThe [facility] [id number] NotePHYSICAL THERAPY CHART REVIEW Referral received, chart reviewed. RN request to hold therapy this date. Pt with 01/03 pain, just returned from CT with team deciding on emergent operation vs IR cholecystostomy tube placement. Evaluation to follow as appropriate Admit date/time: 05/16/2022 2:08 AM Reason for Admit: epigastric pain with nausea and vomiting Diagnosis: Cholecystitis Precautions: Full Code [place] Past Medical and Surgical History: PMH: Past Medical History: Diagnosis Date Restless leg PSH: Past Surgical History: Procedure Laterality Date TOTAL ABDOMINAL HYSTERECTOMY W/WO REMOVAL TUBE(S)/OVARY(S) Chu Warren, PTTSelect Medical [facility] [id number] NoteSICU Progress Note Gerry Victoria [id number] POD#: 0 LOS: 1 day : Interval History/Events: Background: Gerry Victoria is a 66 year old female with PMH of hypertension, RLS, GERD who presented to [facility] with progressive worsening epigastric pain with nausea and vomiting for the past day. Denies fevers, CP, dyspnea. Found to have elevated T waves and uptrending tropopnins. CT ab with acute inflammation of the gallbladder with a stone at the neck and transferred to [facility]. RUQ US with impacted gallstone at gallbladder [...] without focal consolidation, no pneumothorax - respiratory weed thinner protocol, BPH, IS CARD: #T2MI #possible CAD [...] Flor Chew MD Preliminary IM/Anesthesiology PGY-1 Pager: [phone] Teaching Physician Note: I saw and evaluated the patient. I personally obtained the bhandari and (more content not included)...The [facility] [id number] [facility] DIVISION OF ACUTE CARE SURGERY SURGICAL CRITICAL CARE HISTORY AND PHYSICAL Reason for consultation: acute cholecystitis, elevated troponins Referring physician: Connie Cote HPI: Gerry Victoria is a 66 year old female with PMH of hypertension, RLS, GERD who presented to [facility] with progressive worsening epigastric pain with nausea and vomiting for the past day. Denies fevers, CP, dyspnea. Found to have elevated T waves and uptrending tropopnins. CT ab with acute inflammation of the gallbladder with a stone at the neck and transferred to [facility]. RUQ US with impacted gallstone at gallbladder neck. Cards consulted, admitted to [facility]. PMH: No past medical history [...] pt body habitu (more content not included)...[facility] [employer] [id number] Evaluation note* Encounter Date Diagnosis Assessment Notes Treatment Notes Treatment Clinical Notes Nov, Irritable bowel syndrome with constipation (ICD-10 - K58.1) Nov, Dysphagia (ICD-10 - R13.10) Continue Omeprazole EMS [facility] Other 09-06-2022 Hospital Discharge instructions Patient Education [...] fried and sweet foods. General instructions Take yxxb-bsx-vedwxok and prescription medicines only as told by [...] 01/07/2010 Document Revised: 07/04/2019 Document Reviewed: 03/29/2018 [employer] Patient Education 2020 [employer]. Follow Up Care 11/12/2021 11:10:16 With:MARYCARMEN NAVA PA-C, URL Address: When:1 year [facility] [place] 05-05-2022 Hospital Discharge instructions Patient Education [...] (electrical nerve stimulation). For women, using a diagnostic medical sonographer to prevent urine leaks. This is a [...] right after experiencing incontinence. General instructions Take arkp-dux-euyiltx and prescription medicines only as told by [...] 04/20/2005 Document Revised: 03/23/2018 Document Reviewed: 06/22/2017 [employer] Patient Education 2020 [employer]. 07/29/2021 08:21:46 Overactive Bladder, Adult Overactive Bladder, [...] fried and sweet foods. General instructions Take ylib-umv-esrpefj and prescription medicines only as told by [...] 01/07/2010 Document Revised: 07/04/2019 Document Reviewed: 03/29/2018 [employer] Patient Education 2020 [employer] Follow Up Care 07/08/2021 10:23:59 With:MARYCARMEN NAVA PA-C, URL Address: [address] [place] [address] When: Unknown [facility] 04-07-2022 Evaluation note* Encounter Date Diagnosis Assessment Notes Treatment Notes Treatment Clinical Notes Jun, Dyspepsia (ICD-10 - K30) Jun, GERD (gastroesophageal reflux disease) (ICD-10 - K21.9) Continue Omeprazole 40mg bid without change. Follow up in 1 year Nov, Irritable bowel syndrome (ICD-10 - K58.9) [place] Increase Metamucil to 2 scoops daily. Encouraged pt to increase daily fiber intake. [facility] Other 11-30-2021 Evaluation note* Encounter Date Diagnosis [...] see her back on an as-needed basis. [facility] Other 10-05-2021 Evaluation note* Encounter Date Diagnosis [...] that. I am sending her to the [facility] for treatment at her request. Dec, Spondylolisthesis, lumbar region (ICD-10 - M43.16) This patient has a definite spondylolisthesis and probably stenosis. But really does not truly have neurogenic claudication; it is not bilateral and appears to be more sacroiliac. She will try pain management first. [facility] Other chief complaint Narrative - ReportedGERRY VICTORIA is being seen for a consultation for atrial flutter and palpitations. F/u heart cath done in [facility] 600 DO Work Phone: Evaluation + Plan note Future Appointments Appointment Date:10/05/2021 11:00:00 AM Scheduled Provider:MARYCARMEN NAVA PA-C Location:[facility] Appointment Type:URO Office Visit [facility] [place] Evaluation + Plan note Future Appointments Appointment Date:12/01/2022 01:00:00 PM Scheduled Provider:MARYCARMEN NAVA PA-C Location:[facility] Appointment Type:URO Office Visit [facility] Evaluation + Plan note Future Appointments Appointment Date:07/26/2022 08:00:00 AM Scheduled Provider: Location:[facility] Appointment Type:Surgery FT Appointment Date:12/01/2022 01:00:00 PM Scheduled Provider:MARYCARMEN NAVA PA-C [facility]ments Appointment Date:03/14/2024 01:00:00 PM Scheduled Provider:MARYCARMEN NAVA PA-C Location:[facility] Appointment Type:URO Office Visit [facility] Evaluation noteNo Assessments Information Available [facility] assessment information available [facility] noteNo InformationNort [employer] Other evaluation note* Diagnosis Acute cholecystitis- Primary Body mass index (BMI) 31.0-31.9, adult documented [facility] encounter [facility] Diagnosis Acute cholecystitis- Primary documented in [...] Varicose veins of both lower extremities chronic [facility] Work Phone: Evaluation note* Diagnosis Onset Date Resolution Status Pain in wound acute Edema chronic Inflammation chronic Leg ulcer, left chronic Obesity chronic Uses roller walker chronic Varicose veins of both lower extremities chronic Pain in wound acute Edema chronic Inflammation chronic Leg ulcer, left chronic Obesity chronic Uses roller walker chronic Varicose veins of both lower extremities chronic Candidiasis resolved [facility] Work Phone: Hisedpz general Narrative - Reported* Type Description Date [...] RIGHT LEG 10/16/2020 Hospitalization History see above [facility] Other Hismtch general Narrative - Reported* Type Description Date [...] Left leg 01/14 Hospitalization History see above [facility] Other History of Present illness Narrative* Patient is here for cardiovascular evaluation following recent hospitalization for what appeared thang acute cholecystitis. Records were retrieved and reviewed. Patient presented to [facility] with symptoms of abdominal pain and was diagnosed with what appeared to be gallbladder disease and peritonitis.She was transferred to [facility] where she underwent work-up. Apparently a gallbladder [...] adjusted and she was switched from her terminal clerk atenolol to metoprolol and losartan. She reported [...] advised the patient she can use some vtci-iav-wstuwqg Claritin to address her what appeared thang drug induced allergic reaction [facility] 600 DO Work Phone: Hospital course Narrative No data available for this section [facility] Hospital Discharge instructions* Attachments The following attachments cannot be sent through Care Everywhere. * Percutaneous Transhepatic Cholangiogram Discharge Instructions (Irish) documented in this encounterMetroHealthHospital Discharge instructions No data available for this section [facility] Additional Instructions Follow-up with your primary care doctor Return to ED if develop worsening symptoms or concernsMag[facility] Work Phone: Progress note No data available for this section [facility] Advance Directives No Advanced Directives Records [...] RADIOLOGY PROCEDURE SERVICE Nikita Hein MD [address] [facility] [place] [address] [facility] [employer] [place] [id number] Referral ID Status Reason Start Date Expiration Date V isits Requested Visits Authorized [id number] Authorized 06/15/2022 06/15/2023 1 1 Reason Evaluate and Tr eat Diagnosis 1 Spondylolisthesis, l umbar region (M43.16) Referral Organization [facility] Ne urosurgery Referring Provider First Name Michael Referring Provider Last Name Keanu Referring Provider Specialty Neurologica l Surgery Referred Organization [facility] Referred Provider LauriejesseCrow Referred Address [address] [place], [place],[address] Referred Provider Specialty Pain Medicin e Referral Priority Routine [facility] 12/30/2020 03:12:19 PM >Waiting [...] section and content) DATE CREATED AUTHOR 07/07/2021 [facility]ical Specialist DATE CREATED AUTHOR AUTHOR'S ORGANIZ ATION 07/02/2022 [employer] DATE CREATED AUTHOR AUTHOR'S ORGANIZ ATION 09/14/2022 [facility] [employer] [facility] DATE CREATED AUTHOR AUTHOR'S ORGANIZ ATION 10/07/2022 [facility] DATE CREATED AUTHOR AUTHOR'S ORGANIZ ATION 03/04/2023 [facility] DATE CREATED AUTHOR AUTHOR'S ORGANIZ ATION 03/17/2023 [facility] DATE CREATED AUTHOR AUTHOR'S ORGANIZ ATION 04/20/[address] [facility] DATE CREATED AUTHOR AUTHOR'S ORGANIZ ATION 04/24/2023 [facility] d[facility] Specialists EPIC REASON FOR VISIT (unrecogniz ed section and content) Reason Onset Date Comments Advice/health education 05/27/2022 Specialty Diagnoses / Procedures Referred By Contac t Referred To Contact Radiology Diagnoses Acute cholecystitis Procedures XA CHOLANGIOGRAM EXISTING ACCESS (RHETT) XA INTERVENTIONAL RADIOLOGY VASCULAR BODY PROCEDURES XA INTERVENTIONAL RADIOLOGY PROCEDURE SERVICE Nikita Hein MD [address] [place] [address] [facility] [address] [place] [address] Referral ID Status Reason Start Date Expiration Date Visits Re quested Visits Authorized [id number] Closed 06/15/2022 06/15/2023 1 1 Reason Onset [...] BE BASED ON THE PRIMARY CLINICAL RECORDS. [facility] [employer] [facility]. provides no warranty or guarantee of the accuracy or completeness of information in this document.
== END 2023-05-01 10:49 | disposition home or self-care (01) ==
LOC: VC 10:48
PROVIDERS: PCP Radiology Diagnostic Radiology; Visit Provider Radiology Diagnostic Radiology
DX: I80.02 Phlebitis and thrombophlebitis of superficial vessels of left lower extremity (principal)
CPT/HCPCS: 93971; G0463

== ENCOUNTER 2023-05-10 09:55 | Outpatient (OUT) | payer MEDICARE, SELFPAY ==
--- NOTE | 2023-05-10 10:02 | VEIN_ITS ---
[address] [address] Patient Name: GERRY YOUNGBLOOD MRN: [id number] date: 1955 Sex: F Assigned Patient Location: Current Patient Location: Accession/Order Number: [id number] Exam Date: 05/10/2023 10:05 Report Date: 05/10/2023 11:40 At the request of: VICKIE CORDON Procedure: VC INJ Foam Sclerosant WUS PULP REFINER OPERATOR PROCEDURE: VC INJ Foam Sclerosant WUS PULP REFINER OPERATOR HISTORY: I83.813 Bilateral painful varicose veins Pre-operative Diagnosis: CEAP class C6 venous insufficiency with pain, tenderness, edema and incompetent branch saphenous vein(s), chronic venous insufficiency left leg secondary to venous incompetence Post-operative Diagnosis: CEAP class C6 venous insufficiency with pain, tenderness, edema and incompetent branch saphenous vein(s), chronic venous insufficiency left leg secondary to venous incompetence Procedure Performed: 1. Ultrasound-guided microfoam chemical ablation with Varithenaregistered 2. Intraoperative ultrasound guidance Physician: Farnaz Mcgraw M.D. Anesthesia: None Indications for Procedure: 67 year old female. Symptoms including lower extremity pain, swelling, throbbing, dilated bulging veins for many years despite conservative medical therapy including medical compression stockings, exercise and analgesics. Prior procedures include endovenous laser ablation. Multiple incompetent varicosities of the left leg. Duplex scan showed reflux and enlarged diameters up to 5 mm. The patient underwent informed consent including management options where the complications of infection, bleeding, pain, and skin injury were discussed. Particular attention was spent discussing thrombus extension and deep vein thrombosis as well as the possibility of pulmonary embolus and treatment with oral or injectable blood thinners. Procedure: The patient walked to the procedure room. All applicable staff donned appropriate apparel. A procedure timeout was performed to confirm correct patient, correct extremity, correct procedure, and correct room set-up including presence of all applicable supplies, devices, and drugs. A duplex ultrasound, performed by myself confirmed the location and incompetence of branch saphenous varicosities and their course was marked on the skin together with the dilated tributaries. The extent of treatment of the vein and the associated varicosities was determined through ultrasound mapping. The skin was prepped and then punctured with a butterfly needle and advanced under ultrasound guidance. The Varithenaregistered canister was activated and the canister was primed and purged as required in the instructions for use. Varithenaregistered was drawn into a sterile syringe. Varithenaregistered was slowly administered at 0.5-1.0 cc/second with close observation by ultrasound of its course in the vessels. Total volume utilized was: 15 mL (8 mL into a 4 mm varicosity mid medial lower leg; 7 mL into a 5 mm varicosity mid medial lower leg). Following administration of Varithenaregistered the leg was elevated and the patient was asked to repeatedly dorsiflex the ankle to limit flow of Varithenaregistered into perforating veins. Once appropriate spasm had been confirmed in the treated veins, the vascular catheter was removed from the leg and light pressure was applied over the puncture site for hemostasis. The common femoral and deep superficial veins were then evaluated for flow and compressibility prior to dressing placement. The lower extremity was kept elevated at 45 degrees above the horizontal and cording material was applied over the saphenous segments and tributaries to allow for eccentric compression over the target vessels including the targeted saphenous vein(s). A multilayer dressing was applied consisting of foam pads, coban and thigh-high 20-30 mm Hg compression elastic support hose were placed on the patient. The leg was lowered only after compression had been applied and the patient was immediately ambulatory. The patient ambulated 10 minutes under supervision and was without apparent concerns at time of release. Post-care instructions include advising patient to keep post-treatment bandages in place and dry for 48 hours, avoid extended periods of inactivity, avoid heavy exercise for one week, wear compression stockings on the treated leg continuously for two weeks, to walk daily for 10 minutes over the next month. The patient was instructed to take an anti-inflammatory medicine as needed and to follow up for color duplex scan of the Saphenous veins, the treated branch saphenous varicosities, the adjacent deep veins, and additional treatment within 7 days. PERSONNEL: Domingo Joe RN Electronically authenticated by: FARNAZ MCGRAW Date: 05/10/2023 11:40
--- OUTSIDE RECORDS SUMMARY | 2023-05-10 10:13 | XMS_ITS | CCD ---
Author Name Unknown Address [address] [place] [address] Organization [facility] Care Team Providers Care Business Liaison Manager Name Role Phone Ward Zuniga Primary Care Provider Pardeep Barroso Attending Provider Jai Tomas Attending Provider Ward Zuniga Primary Care Provider [phone] Jai Tomas Attending Provider [phone] Ward Mtz Attending Provider Ward Zuniga Primary Care Provider Jai Tomas Attending Provider Ward Mtz Attending Provider WARD ZUNIGA Primary Care Physician Unavail able Latonya Frost Unavailable Unavailable Michael Colunga Unavailable Ward Mtz Unavailable Balwinder Parker Unavailable DO Ward Zuniga Primary Care Provider MD Molina Villanueva Attending Provider [phone] DO Ward Zuniga Attending Provider DO Ward Zuniga Primary Care Provider CUBA Casanova Attending Provider ISI Griffith Emergency Provider Unavailable Primary Care Provider Unavailabl e DO Ward Zuniga Primary Care Provider [phone] CUBA Casanova Attending Provider ISI Griffith Emergency [...] UNKNOWN Admitting Unavailable CONNIE COTE Referring Unavailable COTECONNIE LATIF Referring Unavailable CONLEY, NIMITT Admitting Unavailable PROVIDER, UNKNOWN Attending Unavailable Dr. Ward Zuniga Primary Care Faith Marinelli, Dr. Gama Referring Unavaila terrence Marinelli, Dr. Gama Attending Unavaila Dr. Ward Robin Primary Care DO Ward Balderrama Primary Care Provider [phone] DO Ward Zuniga Attending Provider [phone] CUBA Saldana Attending Provider [phone] DO Maico Perla Emergency Provider MD Ward Mtz Attending Provider [phone] DO Ward Zuniga Primary Care Provider [phone] MD Ward Mtz Attending Provider [phone] CUBA Saldana Attending Provider [phone] MD Pravin Granado Emergency Provider MARYCARMEN NAVA [...] Talon Mcbride Referring Unavailabl e DO Zach Murdock Primary Care Provider MD Pravin Granado Emergency Provider [phone] CUBA Saldana Attending Provider [phone] Ward Zuniga Primary Care Unavailable Maico Perla Admitting Unavailable Maico Perla Attending Unavailable Keith Griffith Admitting Unavailable Keith Griffith Attending Unavailable Ward Zuniga Primary Care Unavailable Pravin Granado Admitting Unavailable Pravin Granado Attending Unavailable Ward Zuniga Primary Care Unavailable Ward Zuniga Admitting Unavailable Ward Zuniga Primary Care Unavailable Ward Zuniga Attending Unavailable Ward Zuniga Primary Care Unavailable CopAdelia patino Admitting Unavailable Adelia Saldana Attending [facility]available [facility] Unavailable Ward Mtz Admitting Unavailable Ward Mtz Attending Unavailable Copsukumar, Adelia Admitting Unavailable CopAdelia patino Attending Unavailable [facility] Primary Care Unavailable Zach Ward Primary Care Unavailable Ephraim Casanova Admitting Unavailable Ephraim Casanova Attending Unavailable Keith Griffith Admitting Unavailable Keith Griffith Attending Unavailable Ward Zuniga Primary Care Unavailable Ward Zuniga DO Primary Care Provider WARD ZUNIGA Primary Care Unavailabl JAJA Moralez Attending Unavailable Ward Zuniga DO Primary Care Provider CONNIE LEARY Attending Unavailable WARD ZUNIGA Attending Unavailable WARD ZUNIGA Referring Unavailable CONNIE LEARY Referring Unavailable JR. JESUS, VICTORIA Corrigan Attending Unavaila CONNIE Guajardo Attending Unavailable CONNIE LEARY Referring Unavailable CONNIE LEARY Attending Unavailable CONNIE LEARY Referring Unavailable CONNIE LEARY Attending Unavailable CONNIE LEARY Referring Unavailable ANGELITA CARBONE Attending Unavail able JR. JESUS, VICTORIA Corrigan Referring Unavaila ble TAMIKO TOM Attending Unavailable JR. JESUS, VICTORIA Corrigan Referring Unavaila ble SEVERIANO ROCKWELL Attending Unavailable JAJA RDEDY Referring Unavailable WARD ZUNIGA Primary Care Unavailabl e Unavailable Unavailable Unavailable Allergies Allergy Classification Reported Allergen(s) Allergy Type Date of Onset Reaction(s) Facility (17 sources) contact metal agent; Translations: [contact metal agent] Propensity to adverse reactions 12-08-19 [facility] (8 sources) Adhesive bandage; Translations: [Adhesive Bandage] Drug allergy rash [facility] (20 sources) DULoxetine; Translations: [duloxetine] Drug Allergy 04-19-19 24 Intolerance [facility] INRFOOD Other (13 sources) meloxicam; Translations: [meloxicam] Drug Allergy ., Unknown [facility] INRFOOD Other (20 sources) pregabalin; Translations: [pregabalin] Drug Allergy 05-15-19 Swelling [facility] INRFOOD Other (19 sources) Adhesive agent; Translations: [adhesive] Propensity to adverse reactions 12-17-19 rash [facility] (10 sources) oxaprozin; Translations: [oxaprozin] Drug Allergy Unknown [facility] (10 sources) rOPINIRole; Translations: [Requip] Drug Allergy dizziness [facility] (10 sources) tiZANidine; Translations: [tiZANidine] Drug Allergy Unknown [facility] (20 sources) DULoxetine; Translations: [DULOXETINE HCL] Drug Allergy 08-19-19 Agitation, Unknown [facility] (20 sources) Pregabalin Propensity to adverse reactions to drug 05-16-19 Swelling [facility] (20 sources) Bandage Tape; Translations: [BANDAGE TAPE] Propensity to adverse reactions 05-16-19 Itching, Redness [facility] (1 source) Adhesive Bandages; Translations: [Adhesive Bandages] Allergy to drug (finding) [facility] 600 DO Work Phone: (1 source) Adhesive Paper TAPE; Translations: [Adhesive Paper TAPE] Allergy to drug (finding) [facility] 600 DO Work Phone: (1 source) meloxicam; Translations: [Mobic] Drug Allergy [facility] (1 source) oxaprozin; Translations: [Daypro] Drug Allergy [facility] (1 source) tiZANidine; Translations: [Zanaflex] Drug Allergy [facility] (1 source) pregabalin Drug Allergy 02-03-20 [facility] (5 sources) meloxicam Drug Allergy 08-19-19 [facility] (5 sources) rOPINIRole Drug Allergy 08-19-19 [facility] (5 sources) tiZANidine Drug Allergy 08-19-19 [facility] (5 sources) Wound Dressing Adhesive Drug Intolerance 08-19-19 Rash, Itching [facility] Medications Current Medications Medication Drug Class(es) Dates [...] Virus Nucleoside Analog DNA Polymerase Inhibitor Start: 09-28-2022 acyclovir (Zovirax) 5 % ointment 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 Space applications every 3 hours. 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 90 tablet 0 03/28/2023 Active Comment on above: Take 400 mg by mouth . amitriptyline hydrochloride 50 mg oral tablet (20 sources) Tricyclic Antidepressant Start: 03-29-19 18 take 1 tablet by mouth at bedtime amitriptyline (Elavil) 50 MG tablet Indications: Major depression, chronic (CMS/HCC) Take 1 tablet (50 mg) by mouth at bedtime. 90 tablet 3 01/09/2023 Active Comment on above: Amitriptyline Active 50 MG PO Daily March 29, 2017 12:00am aspirin 81 mg delayed release oral tablet (20 sources) Platelet Aggregation Inhibitor, Nonsteroidal Anti-inflammatory Drug Start: 05-26-19 23 take 1 tablet by mouth in the morning aspirin 81 MG EC tablet Take 81 mg by mouth in the morning. 0 05/25/2022 Active Start: 05-25-2022 End: 06-24-2022 take 1 tablet by mouth once daily aspirin 81 mg chewable tablet Take 1 tablet by mouth once daily. 0 05/25/2022 Active Start: 01-13-2021 aspirin 325 mg Tab Refills(s) 0 Start Date: 01/13/21 Status: Ordered Comment on above: Take 1 tablet by pablo th once daily. atenolol 50 mg oral tablet (20 sources) beta-Adrenergic Pily Start: 11-23-19 13 take 1 tablet by mouth in the morning atenolol (Tenormin) 50 MG tablet Indications: Primary hypertension (CMS/HCC) Take 1 tablet (50 mg) by mouth in the morning. 90 tablet 3 03/28/2023 Active Comment on above: Take 50 mg by mouth. atorvastatin 40 mg oral tablet (20 sources) HMG-CoA Reductase Inhibitor Start: 05-26-19 End: 06-25-19 take 1 tablet by mouth once daily atorvastatin (LIPITOR) 40 mg tablet Take 1 Tablet by mouth daily. 30 Tablet 0 05/25/2022 Active Benadryl Allergy 25 MG (4 sources) take 1 tablet by mouth once daily at bedtime as needed Benadryl Allergy 25 MG 1 tablet at bedtime as needed Orally Once a day Active calcium carbonate 1250 mg / cholecalciferol 125 unt oral tablet (5 sources) Vitamin D Start: 10-17-19 Calcium Carb-Cholecalciferol (Calcium 500 +D) 500-10 MG-MCG tablet Celebrate Multivitamin (7 sources) Start: 01-14-20 Celebrate Multivitamin 1 tab(s), Chewed, Daily, Refill(s) 0, Prophylaxis [...] # 28 cap(s), Refills(s) 0, Pharmacy: [facility] [id number], 154, cm, 09/26/22 23:21:00 EDT, Height/Length Dosing, [...] capsule Discontinued 500 MG PO Twice daily April 24, 2017 12:00am May 08, 2017 12:03am Start: 03-29-2017 End: 04-05-2017 take 2 capsules by mouth twice daily Cephalexin (Keflex) 250 mg capsule Discontinued 500 MG PO .twice daily 14 March 29, 2017 12:00am April 05, 2017 12:03am clindamycin 0.01 mg/mg topical gel (4 sources) [...] Status: Ordered take 1 tablet by pablo every twenty-four hours Benadryl Allergy 25 MG 1 tablet at bedtime as needed Orally Once a day Active doxycycline hyclate 100 mg oral capsule (18 sources) Tetracycline-class Drug Start: 02-02-2023 take 100 mg by mouth twice daily Doxycycline Hyclate Active 100 MG PO Twice daily February 02, 2023 12:00am Start: 09-27-2022 End: 10-04-2022 take 1 tablet by mouth every twelve hours doxycycline hyclate 100 mg Tab 100 mg = 1 tab(s), Oral, q12hr, X 7 day(s), # 14 tab(s), Refills(s) 0, Pharmacy: [facility] [id number], 154, cm, 09/26/22 23:21:00 EDT, Height/Length Dosing, 75.9, kg, 09/26/22 23:21:00 EDT, Weight Dosing Start Date: 09/27/22 Stop Date: 10/04/22 Status: Ordered Start: 11-08-2018 End: 11-23-2018 take 100 mg by mouth twice daily Doxycycline Hyclate Discontinued 100 MG PO Twice daily November 07, 2018 11:00pm November 23, 2018 12:42pm escitalopram 20 mg oral tablet (20 sources) Serotonin Reuptake Inhibitor Start: 09-01-2022 take 1 tablet by mouth in the morning escitalopram (Lexapro) 20 MG tablet Indications: Major depression, chronic (CMS/HCC) Take 1 tablet (20 mg) by mouth in the morning. 90 tablet 3 09/01/2022 Active Start: 01-13-2021 take 10 mg by mouth once daily Escitalopram Oxalate Active 10 MG PO Daily May 15, 2022 12:00am Comment on above: Take 20 mg by mouth. estradiol 0.1 mg/ml vaginal cream (5 sources) Estrogen Start: 03-28-2023 estradiol (Estrace) 0.1 MG/GM vaginal cream Indications: Post menopausal syndrome Insert 0.1 g into the vagina in the morning. 42.5 g 1 03/28/2023 Active estradiol 0.1 mg/g vaginal cream (1 source) Start: 07-29-2021 estradiol 0.1 mg/g vaginal cream See Instructions, 1 g vaginally daily x 2 weeks, then 3x per week thereafter. apply a pea-sized amount with your finger around the urethra., # 42.5 gm, Refills(s) 5, Pharmacy: [facility] [id number], 154, cm, 07/29/21 11:09:00 EDT, Height/Length Dos... Start Date: 07/29/21 Status: Ordered Fiber (3 sources) Fiber Active fluticasone propionate 0.5 mg/ml topical cream (5 sources) Corticosteroid Start: 06-28-2022 fluticasone (Cutivate) 0.05 % cream Apply 1 application topically 3 (three) times a day as needed. 0 06/28/2022 Active gabapentin 100 mg oral capsule (20 sources) Anti-epileptic Agent Start: 05-25-2016 gabapentin (Neurontin) 100 MG capsule Indications: Fibromyalgia Take 1 capsule (100 mg) by mouth in the morning and 1 capsule (100 mg) before bedtime. 1 tablet at supper and two tablets at night. 180 capsule 3 01/03/2023 Active Start: 05-25-2016 take 2 capsules by m outh twice daily gabapentin 100 mg Cap 200 mg = 2 cap(s), Oral, BID, Refills(s) 0, Pain Start Date: 05/25/16 Status: Ordered Gabapentin 100 M G TABS TAKE 1 TABLET 3 TIMES DAILY. Quantity: 0 Refills: 0 Ordered: 30-Jun-2022 DO Active Comment on above: Gabapentin Active 10 0 MG PO Three times daily March 29, 2017 12:00am Handicap Placard 5 year 5 year (9 sources) Start: 06-27-19 Handicap Placard 5 year 5 year 1 misc daily for 5 year *please review for potential _update for e-prescription and drug interaction check* Jun, Active levothyroxine sodium 0.1 mg oral tablet (20 sources) l-Thyroxine Start: 01-04-20 take 1 tablet by mouth before mealtime levothyroxine (Synthroid, Levoxyl) 100 MCG tablet Indications: Acquired hypothyroidism (CMS/HCC) Take 1 tablet (100 mcg) by mouth in the morning. Take before meals. 90 tablet 1 01/03/2023 Active Start: 10-23-2018 take 100 ug by mouth once daily Levothyroxine Active 100 MCG PO Daily October 22, 2018 11:00pm Start: 05-31-2016 levothyroxine (SYNTHROID) 50 mcg tablet Levothyroxine Active 100 MCG PO Daily October 22, 2018 11:00pm 0 05/31/2016 Active Start: 05-31-2016 take 1 tablet by pablo th once daily levothyroxine 150 mcg (0.15 mg) Tab 150 microgram = 1 tab(s), Oral, Daily, Refills(s) 0, Thyroid Start Date: 05/31/16 Status: Ordered Comment on above: Levothyroxine Active 100 MCG PO Daily October 22, 2018 11:00pm losartan potassium 25 mg oral tablet (20 sources) Angiotensin 2 Receptor Pily Start: 05-24-19 End: 06-24-19 23 take 1 tablet by mouth once daily losartan (COZAAR) 25 MG tablet Take 1 Tablet by mouth daily. 30 Tablet 0 05/24/2022 Active 24 hr metoprolol succinate 25 mg extended release oral tablet (20 sources) beta-Adrenergic Pily Start: 05-24-19 End: 06-24-19 23 take 0.5 tablet by mouth once daily metoprolol (TOPROL-XL) 25 mg XL tablet Take 0.5 Tablets by mouth daily. 15 Tablet 0 05/24/2022 Active Multivitamin preparation (4 sources) Start: 10-06-19 take 1 tablet by mouth once daily Multivitamin Active 1 TAB PO Daily October 04, 2022 11:00pm Start: 10-05-2022 [facility] Active 1 TAB PO [...] (20 sources) Proton Pump Inhibitor Start: 05-13-2021 omeprazo le (PriLOSEC) [address] capsule Take 40 mg by mouth. 0 08/11/2022 Active Start: 03-29-2017 End: 05-13-2021 omeprazole (PRILOSEC) 20 mg capsule Take by mouth as directed. 0 01/13/2021 Active Start: 11-29-2012 take 1 capsule by mo [facility] once daily omeprazole 20 mg Cap-DR 20 mg = 1 cap(s), Oral, Daily, # 30 cap(s), Refills(s) 0, Gas Start Date: 01/13/21 Status: Ordered Comment on above: Take by mouth as dir ected. omeprazole 20 mg Cap-DR (1 source) Start: 01-14-20 take 1 capsule by mouth once daily omeprazole 20 mg Cap-DR 20 mg = 1 cap(s), Oral, Daily, # 30 cap(s), Refills(s) 0 Start Date: 01/13/21 Status: Ordered ondansetron 4 mg disintegrating oral tablet (2 sources) Serotonin-3 Receptor Antagonist Start: 12-18-19 Ondansetron Active 4 MG PO every 6 to 8 hours December 16, 2022 11:00pm 24 hr oxybutynin chloride 10 mg extended release oral tablet (20 sources) Cholinergic Muscarinic Antagonist Start: 02-21-20 take 1 tablet by mouth once daily oxybutynin 10 mg ER Tab 10 mg = 1 tab(s), Oral, Daily, # 90 tab(s), Refills(s) 3, Pharmacy: [facility] [id number], 154, cm, 09/26/22 23:21:00 EDT, Height/Length Dosing, 75.9, kg, 09/26/22 23:21:00 EDT, Weight Dosing Start Date: 02/20/23 Status: Ordered Start: 11-30-2021 take 1 tablet by pablo th every twenty-four hours in the morning oxybutynin XL (Ditropan-XL) 10 MG 24 hr tablet Take 10 mg by mouth in the morning. 0 11/30/2021 Active Start: 11-30-2021 oxybutynin (DI TROPAN-XL) 10 MG XL tablet Take 10 mg by mouth. 0 11/30/2021 Active Start: 07-29-2021 End: 09-27-2021 take 1 tablet by mouth once daily oxybutynin 10 mg ER Tab 10 mg = 1 tab(s), Oral, Daily, X 30 day(s), # 30 tab(s), Refills(s) 1, Pharmacy: [facility] [id number], 154, cm, 07/29/21 11:09:00 EDT, Height/Length Dosing, 88, kg, 07/29/21 11:09:00 EDT, Weight Dosing Start Date: 07/29/21 Stop Date: 09/27/21 Status: Ordered Start: 07-29-2021 End: 08-28-2021 take 1 tablet by mouth once daily oxybutynin 5 mg ER T ab 5 mg = 1 tab(s), Oral, Daily, X 30 day(s), # 30 tab(s), Refills(s) 0, Pharmacy: [facility] [id number], 154, cm, 07/29/21 11:09:00 EDT, Height/Length Dosing, 88, kg, 07/29/21 11:09:00 EDT, Weight Dosing Start Date: 07/29/21 Stop Date: 08/28/21 Status: Ordered Comment on above: Take 10 mg by mouth. oxyCODONE hydrochloride 5 mg oral tablet (1 source) Opioid Agonist Start: 3 End: 3 oxyCODONE 5 mg Tab 5 mg = 1 tab(s), Oral, q6hr, PRN Pain 8-10, X 3 day(s), # 12 tab(s), Refills(s) 0, Pharmacy: [facility] [id number], 154, cm, 07/18/22 14:13:00 EDT, Height/Length Dosing, 74.6, kg, 07/18/22 14:13:00 EDT, Weight Dosing Start Date: 07/26/22 Stop Date: 07/29/22 Status: Ordered Probiotic (3 sources) Probiotic Active Probiotic tablet delayed-release (5 sources) Probiotic tablet delayed-release as directed Orally 0 Active psyllium 525 mg oral capsule (20 sources) Start: take 5 capsules by mouth once daily as needed for constipation Metamucil 525 mg oral capsule 2,625 mg = 5 cap(s), Oral, Daily, PRN for constipation, # 100 cap(s), Refills(s) 0 Start Date: 01/13/21 Status: Ordered psyllium (Metamu cil) 0.52 g capsule 1 capsule. 0 Active take 1 capsule by mouth in the m orning Metamucil 0.52 GM 1 capsule Orally in am Active take 1 capsule by mouth in the m orning Metamucil 0.52 GM 1 capsule Orally in am Active rOPINIRole 2 mg oral tablet (20 sources) Nonergot Dopamine Agonist Start: 05-08-2022 take 4 tablets by mouth once daily rOPINIRole (Requip) 2 MG tablet Indications: Restless legs TAKE FOUR TABLETS BY MOUTH DAILY 360 tablet 0 02/20/2023 Active Start: 05-08-2022 End: 07-18-2022 rOPINIRole (REQUIP) 2 MG tab let Start: 01-13-2021 take 1 tablet by pablo [...] Three times daily March 29, 2017 12:00am Comment on above: TAKE FOUR TABLETS BY MOUTH DAILY 5 ml sodium chloride 9 mg/ml injection (1 source) Start: 07-13-2022 End: 08-12-2022 Sodium Chloride Flush (Saline Flush) 0.9 % SOLN 10 mL by Gastric Tube route 2 times daily. 10 mL 5 07/13/2022 08/12/2022 Active traMADol hydrochloride 50 mg oral tablet (20 sources) Opioid Agonist Start: 08-20-2015 take 1 tablet by mouth every six hours for pain traMADol (Ultram) 50 MG tablet Indications: Other chronic pain Take 1 tablet (50 mg) by mouth every 6 (six) hours if needed for severe pain 90 tablet 0 04/12/2023 Active Start: 08-20-2015 take 50 mg by mouth once daily Tramadol Active 50 MG PO Daily March 29, 2017 12:00am Start: 08-20-2015 take 50 mg by mouth every eight hours as needed for pain tramadol 50 mg, Oral, q8hr, PRN as needed for pain, Pain Start Date: 06/29/17 Status: Ordered Comment on above: Take 50 mg by mouth every 6 hours as needed. triamcinolone acetonide 1 mg/ml topical cream (20 sources) Corticosteroid Start: 07-08-2022 triamcinolone (Kenalog) 0.1 % cream Apply topically 2 (two) times a day. 0 07/08/2022 Active Start: 01-30-2019 KENALOG - 10 m g Jan, 40 mg Start: 07-07-2016 Kenalog -40 mg Jun, 40 mg Start: 01-25-2016 Kenalog -40 mg Dec, 40 mg Start: 10-19-2015 Kenalog -40 mg Sep, 40 mg Vashe Cleansing - (9 sources) Start: 04-17-2019 [...] (9 sources) take 1 capsule by mo [facility] once daily Vitamin D3 2000 UNIT 1 capsule Orally Once a day *please review for potential _update for e-prescription and drug interaction check* Active Completed/Discontinued Medications Medication Drug Class(es) Dates Sig (Normalized) Sig (Original) calcium carbonate 1500 mg oral tablet (8 sources) Start: 07-26-2022 calcium carbonate (CALTRATE) 600 mg calcium (1,500 mg) tab Take 1,200 mg by mouth. 0 07/26/2022 Active Start: 07-26-2022 calcium (as ca rbonate) 600 mg oral tablet 1,200 mg = 2 tab(s), Oral, Daily, Prophylaxis Start Date: 07/26/22 Status: Ordered Start: 01-13-2021 take 1 tablet by pablo twice daily calcium (as carbonate) 600 mg oral tablet 600 mg = 1 tab(s), Oral, BID, Refills(s) 0 Start Date: 01/13/21 Status: Ordered Comment on above: Take 1,200 mg by pablo . cetirizine hydrochloride 10 mg disintegrating oral tablet (14 sources) Histamine-1 Receptor Antagonist Start: 01-13-2021 cetirizine 10 mg ODT Take by mouth. 0 01/13/2021 Active take 1 tablet by mouth once apryl y ZyrTEC Allergy 10 MG 1 tablet Orally Once a day Active Comment on above: Take by mouth. cholecalciferol 0.05 mg oral capsule (8 sources) Vitamin D Start: 01-13-2021 Cholecalciferol, Vitamin D3, 50 mcg (2,000 unit) cap 1 capsule. 0 01/13/2021 Active Start: 01-13-2021 take 1 tablet by pablo th once daily Vitamin D3 2000 intl units oral Tab 50 mcg, Oral, Daily, tab(s), Refills(s) 0 Start Date: 01/13/21 Status: Ordered Comment on above: 1 capsule. clobetasol propionate 0.0005 mg/mg topical ointment (16 sources) Corticosteroid Start: 11-24-19 19 End: 03-30-19 21 apply 1 g topically twice daily Clobetasol Discontinued 1 GM TOPICAL Twice daily 15 November 22, 2018 11:00pm March 30, 2020 4:18pm apply thin layer to red area left leg docusate sodium 100 mg oral capsule (15 sources) Start: 11-23-19 13 docusate sodium (COLACE) 100 mg capsule Take 200 mg by mouth. 0 11/22/2012 Active Comment on above: Take 200 mg by mouth . gentamicin 0.001 mg/mg topical ointment (4 sources) Start: 10-06-19 End: 11-17-19 Gentamicin Discontinued 1 APPLIC TOPICAL .3 times/week October 04, 2022 11:00pm November 16, 2022 9:50am thin layer to left leg wound as per wound care orders iohexol (OMNIPAQUE) 350 MG/ML injection (1 source) Start: 07-06-19 End: 07-06-19 iohexol (OMNIPAQUE) 350 MG/ML injection mupirocin 0.02 mg/mg topical ointment (16 sources) RNA Synthetase Inhibitor Antibacterial Start: 11-24-19 End: 03-30-19 Mupirocin Discontinued 1 APPLIC TOPICAL Twice daily November 22, 2018 11:00pm March 30, 2020 4:18pm apply to wound on left leg simethicone 80 mg chewable tablet (4 sources) Start: 09-11-19 take 1 tablet by mouth three times daily as needed Simethicone 80 MG 1 tablet Orally three times a day prn for 30 day(s) Aug, Not-Taking Problems Active Problems Problem Classification Problem Date Documented Da te Episodic/Chronic Abdominal pain (20 sources) Acute abdominal pain; Translations: [Unspecified abdominal pain] Onset: 3 05-17-2022 Episodic Acute myocardial infarction (7 sources) Acute non-ST segment elevation myocardial infarction; Translations: [Non-ST elevation (NSTEMI) myocardial infarction] 05-15-2022 Chronic Anxiety disorders (20 sources) Anxiety; Translations: [Generalized [...] Chronic Coronary atherosclerosis and other heart disease (10 sources) Coronary atherosclerosis; Translations: [Atherosclerotic heart disease of [place] coronary artery without angina pectoris] Onset: 3 Chronic Deficiency and other anemia (7 sources) Anemia; Translations: [Anemia, unspecified] Onset: 3 08-29-2022 Episodic Disorders of lipid metabolism (20 sources) Mixed hyperlipidemia; Translations: [Mixed hyperlipidemia] Onset: 8 05-16-2022 Chronic E Codes: Fall (4 sources) Fall; Translations: [Unspecified fall, initial encounter] 11-04-2022 Episodic Esophageal disorders (20 sources) Gastroesophageal reflux disease; Translations: [Chalasia of lower esophageal sphincter] Onset: 1 Resolved: 3 05-25-2016 Chronic Essential hypertension (8 sources) Benign essential hypertension; Translations: [Benign essential hypertension] Onset: 3 08-29-2022 Chronic Genitourinary symptoms and ill-defined conditions (20 [...] current use of drug therapy; Translations: [Other mcc (current) drug therapy] Onset: 3 Episodic Other [...] Translations: [Functional dyspepsia] Episodic Other gastrointestinal disorders (20 sources) Irritable bowel syndrome; Translations: [Irritable bowel [...] sources) Dysphagia; Translations: [Dysphagia, unspecified] Episodic Other gastrointestinal disorders (1 source) Heartburn; Translations: [Heartburn] Onset: 4 Episodic Other gastrointestinal disorders (1 source) Heartburn; Translations: [Heartburn] 05-08-2023 Episodic Other hematologic conditions (20 sources) Raised cardiac enzyme or marker; Translations: [Other specified abnormalities of plasma proteins] 05-18-2022 Episodic Other hereditary and degenerative nervous system conditions (20 sources) Restless legs; Translations: [Restless legs syndrome] Onset: 6 05-25-2016 Chronic Other nervous system disorders (20 sources) Chronic pain; Translations: [Other chronic pain] Onset: 3 08-29-2022 Chronic Other non-traumatic joint disorders (1 source) Derangement of left shoulder joint; Translations: [Other specific joint derangements of left shoulder, not elsewhere classified] 05-02-2023 Chronic Other non-traumatic joint disorders (7 sources) [...] region] Onset: 1 Resolved: 1 01-13-2021 Chronic Spondylosis; intervertebral disc disorders; other back problems (20 sources) Low back pain; Translations: [Spinal stenosis of lumbar region] Onset: 8 Resolved: 1 05-25-2016 Episodic Superficial injury; contusion (4 sources) Contusion of [...] infection, site not specified] Onset: 2 Episodic Past or Other Problems Problem Classification Problem Date Documented Da te Episodic/Chronic Acquired foot deformities (5 sources) Hammer toe; Translations: [Other hammer toe(s) (acquired), right foot] Onset: 08-29-2022 Resolved: 08-29-2022 08-29-2022 Chronic Acquired foot deformities (5 sources) Acquired deformity of toe of right foot; Translations: [Acquired deformities of toe(s), unspecified, right foot] Onset: 08-29-2022 Resolved: 08-29-2022 08-29-2022 Episodic Allergic reactions (5 sources) Flexural atopic dermatitis; Translations: [Other atopic dermatitis] Onset: 08-29-2022 Resolved: 08-29-2022 08-29-2022 Chronic Allergic reactions (6 sources) Eruption due to drug; Translations: [Dermatitis due to drugs and medicines taken internally] Onset: 08-29-2022 Resolved: 08-29-2022 08-29-2022 Episodic Esophageal disorders (5 sources) Achalasia of esophagus; Translations: [Achalasia of cardia] Onset: 08-29-2022 Resolved: 08-29-2022 08-29-2022 Episodic Gastritis and duodenitis (4 sources) Gastritis; Translations: [Gastritis, other, specified, without mention of hemorrhage] Episodic Headache; including migraine (4 sources) Headache; Translations: [Chronic headaches] Episodic Hemorrhoids (4 sources) Hemorrhoids without complication; Translations: [Hemorrhoids without complication] Episodic Mood disorders (5 sources) Mood disorders Onset: 01-02-2023 01-02-2023 Nonspecific chest pain (1 source) Chest pain, [...] (chronic) (peripheral)] Onset: 11-03-2020 05-16-2022 Episodic Other diseases of veins and lymphatics (5 sources) Disorder of vein; Translations: [Disorder of vein, unspecified] Onset: 10-17-2022 10-17-2022 Episodic Other disorders of stomach and duodenum (1 source) Functional dyspepsia Onset: 07-01-2021 Resolved: 07-01-2021 Episodic Other gastrointestinal disorders (1 source) Dysphagia, unspecified Onset: 12-07-2021 Resolved: 12-07-2021 Episodic Other nervous system disorders (5 sources) Inattention; Translations: [Attention and concentration deficit] Onset: 08-29-2022 Resolved: 08-29-2022 08-29-2022 Chronic Unclassified (3 sources) Open wound of right lower leg; Translations: [Traumatic open wound of right lower leg] Varicose veins of lower extremity (20 sources) Varicose veins of lower extremity; Translations: [Venous ulcer of leg] Onset: 08-29-2022 10-23-2018 Episodic Viral infection (20 sources) Herpes simplex; Translations: [Herpes simplex type 2 infection] Onset: 08-29-2022 Resolved: 08-29-2022 05-25-2016 Episodic Results Test Name Value Interpretation Reference Range Facility ANES POSTPROC EVALon 024 ANES POSTPROC EVAL HNO ID: [id number] Author: VICKIE MON MD Service: Anesthesiology Author Type: Anesthesiologist Type: Anesthesia Postprocedure Evaluation Filed: 05/08/2023 14:42 Note Text: POST ANESTHESIA EVALUATION NOTE : 1955 Procedure Summary Date: 05/08/23 Room / Location: Procedures Anesthesia Start: 1235 Anesthesia Stop: 1247 Procedure: EGD DIAGNOSTIC Diagnosis: Epigastric pain Heartburn (Epigastric abdominal pain) Scheduled Providers: Jaja Reddy MD; Vickie Mon MD; Severiano Rockwell AA Responsible Provider: Vickie Mon MD Anesthesia Type: MAC ASA Status: 2 Anesthesia Type: MAC Last Vitals Vitals Value Taken Time BP 150/65 05/08/23 1320 Temp 36.1 ?C (97 ?F) 05/08/23 1246 HR SpO2 65 05/08/23 1318 Resp 13 05/08/23 1321 SpO2 100 % 05/08/23 1318 Vitals shown include unfiled device data. Post Anesthesia Patient Status Patient Evaluation: bedside. Anticipated Disposition: phase 2 then home. Neurological Status: aware and responsive. Pulmonary Status: breathing comfortably on room air Airway Control: returned to baseline unsupported. Cardiovascular Status: stable. Pain Management: clinically adequate Postoperative Hydration: acceptable. Intraoperative Events: no significant anesthesia events Post Operative Nausea/Vomiting Status: no significant post operative nausea or vomiting Recommendation: continue current plan of care. Anesthesia Observations No Documentation SIGNATURE: Vickie Mon MD PATIENT NAME: Gerry Victoria DATE: May 08, 2023 TIME: 2:42 PM CSN: [id number] [facility] ANES PRE-OPon 05-08-2023 ANES PRE-OP HNO ID: [id number] Author: VICKIE MON MD Service: Anesthesiology Author Type: Anesthesiologist Type: Anesthesia Preprocedure Evaluation Filed: 05/08/2023 12:28 Note Text: ANESTHESIOLOGY DAY OF SURGERY NOTE : 1955 Procedure Information Date/Time: 05/08/23 1330 Scheduled providers: Jaja Reddy MD; Severiano Rockwell AA; Vickie Mon MD Procedure: EGD DIAGNOSTIC Location: Procedures Estimated body mass index is 33.07 kg/m? as calculated from the following: Height as of 04/19/23: 154.9 cm (5' 1 ). Weight as of 04/19/23: 79.4 kg (175 lb). Most recent hematocrit and potassium results: No results found for this basename: HCT,HEMATOCRIT,K,POTASSIUM Relevant Problems No relevant active problems I - PHYSICAL EVALUATION AIRWAY Patient intubated: No. Tracheostomy tube not present Mallampati: II. Neck ROM: full ROM without neurological symptoms. Mouth opening: adequate. Short neck: no. Thick neck: no DENTAL Dental findings: teeth intact. II - ANESTHESIA PLAN ASA Score: 2 Anesthetic Plan: MAC The patient is not a current smoker. NPO Status: adequate Beta Pily Administration of chronic beta pily medication not planned. Monitoring Plan Monitoring plan: standard ASA. Post Procedure Analgesic Plan Postoperative analgesic plan: multimodal analgesia. Informed Consent Anesthetic risks, benefits, alternatives, personnel and consent discussed: yes. Patient / Responsible Democrat agrees to proceed: yes Patient / Surrogate agrees to blood products: Yes Significant changes in the patient condition since the History and Physical, not otherwise documented in primary service progress note: no. Potential Anesthesia issues that may suggest increased risk of complications or contraindication to planned procedure: none. Vitals Value Taken Time BP 160/93 05/08/23 1213 Pulse Resp 16 05/08/23 1213 Temp 36.1 ?C (97 ?F) 05/08/23 1213 SpO2 97 % 05/08/23 1213 Outpatient Medications as of 05/08/2023 Medication Sig - acyclovir (ZOVIRAX) 400 mg tablet Take 400 mg by mouth. - amitriptyline (ELAVIL) 50 mg tablet Amitriptyline Active 50 MG PO Daily March 29, 2017 12:00am - aspirin 81 mg chewable tablet Take 1 tablet by mouth once daily. - atenolol (TENORMIN) 50 mg tablet Take 50 mg by mouth. - cetirizine 10 mg ODT Take by mouth. - docusate sodium (COLACE) 100 mg capsule Take 200 mg by mouth. - escitalopram oxalate (LEXAPRO) 20 mg tablet Take 20 mg by mouth. - gabapentin (NEURONTIN) 100 mg capsule Gabapentin Active 100 MG PO Three times daily March 29, 2017 12:00am - levothyroxine (SYNTHROID) 50 mcg tablet Levothyroxine Active 100 MCG PO Daily October 22, 2018 11:00pm - omeprazole (PRILOSEC) 20 mg capsule Take by mouth as directed. - oxybutynin ER (DITROPAN XL) 10 mg 24 hr tablet Take 10 mg by mouth. - rOPINIRole (REQUIP) 2 mg tablet TAKE FOUR TABLETS BY MOUTH DAILY - calcium carbonate (CALTRATE) 600 mg calcium (1,500 mg) tab Take 1,200 mg by mouth. - Cholecalciferol, Vitamin D3, 50 mcg (2,000 unit) cap 1 capsule. - traMADol (ULTRAM) 50 mg tablet Take 50 mg by mouth every 6 hours as needed. Facility-Administered Medications as of 05/08/2023 Medication Dose Route Frequency - lidocaine (PF) 10 mg/mL (1 %) 1-2 mg injection (XYLOCAINE) 0.1-0.2 mL INTRADERMAL PRN - NaCl 0.9% iv infusion 30 mL/hr INTRAVENOUS CONTINUOUS I have interviewed and examined the patient. I have reviewed the medical record and/or the pre-anesthesia evaluation, pertinent labs, and test results. This contains updated information obtained within 48 hours of Surgery/Procedure. SIGNATURE: Vickie Mon MD PATIENT NAME: Gerry Victoria DATE: May 08, 2023 TIME: 12:28 PM CSN: [id number] [facility] EGD Study observation Narrat iveon 05-08-2023 [facility] Upper GI endoscopyon 024 Upper GI endoscopy [facility] Gastrointestinal Endoscopy Patient Name: Gerry Victoria Procedure Date: 05/08/2023 12:26 PM Date of : 1955 Admit Type: Outpatient Age: 67 Room: [place] [address] Gender: Female Note Status: Finalized Attending MD: Jaja Reddy MD, [id number] Procedure: Upper GI endoscopy Indications: Epigastric abdominal pain, Heartburn Providers: Jaja Reddy MD Patient Profile: This is a 67 year old female. Refer to note in patient chart for documentation of history and physical. Referring Physician: Jaja Reddy MD (Referring MD) Medicines: Monitored Anesthesia Care Complications: No immediate complications. Requesting Provider: Procedure: Pre-Anesthesia Assessment: - Prior to the procedure, a History and Physical was performed, and patient medications, allergies and sensitivities were reviewed. The patient's tolerance of previous anesthesia was reviewed. - The risks and benefits of the procedure and the sedation options and risks were discussed with the patient. All questions were answered and informed consent was obtained. - Patient identification and proposed procedure were verified prior to the procedure by the physician, the nurse, the aquaculturist and the field installation technician. The procedure was verified in the procedure room. After obtaining informed consent, the endoscope was passed under direct vision. Throughout the procedure, the patient's blood pressure, pulse, and oxygen saturations were monitored continuously. The 3390 EGD was introduced through the mouth, and advanced to the second part of duodenum. The upper GI endoscopy was accomplished without difficulty. The patient tolerated the procedure well. Moderate Sedation: MAC anesthesia was administered by the anesthesia team. Total Procedure Duration: 0 hours 2 minutes 31 seconds Findings: Normal mucosa was found in the entire esophagus. The Z-line was regular and was found 35 cm from the incisors. The entire examined stomach was normal. Biopsies were taken with a cold forceps for Helicobacter pylori testing. The examined duodenum was normal. Biopsies were taken with a cold forceps for histology. Impression: - Normal mucosa was found in the entire esophagus. - Z-line regular, 35 cm from the incisors. - Normal stomach. Biopsied. - Normal examined duodenum. Biopsied. Recommendation: - Await pathology results. - Discharge patient to home. - Resume previous diet. - Continue present medications. Procedure Code(s): --- Professional --- 22931, Esophagogastroduodenoscopy , flexible, transoral; with biopsy, single or multiple Diagnosis Code(s): --- Professional --- R10.13, Epigastric pain R12, Heartburn CPT copyright 2020 [employer]. All rights reserved. The codes documented in this report are preliminary and upon programming intern review may be revised to meet current compliance requirements. Attending Participation: I personally performed the entire procedure. Scope In: 12:39:06 PM Scope Out: 12:41:37 PM MD Jaja Owens MD 05/08/2023 12:46:15 PM This report has been signed electronically by Jaja Reddy MD Number of Addenda: 0 Note Initiated On: 05/08/2023 12:26 PM Estimated Blood Loss: Estimated blood loss was minimal. Normal [facility] 05-03-2023 [facility] Telephone ([facility]) -- GERRY VICTORIA ([id number]) 1955 F Date Time Provider Department 05/03/23 JAJA REDDY During your visit today, we recorded the following information about you: Susu Leigh OCCA 05/03/2023 11:07 AM Signed Called and spoke with patient regarding prep instructions for upcoming procedure on 05/08/2023. Patient verbalized understanding and made aware prep instructions were also posted to My Chart, patient informed to call [phone] and ask for nurse triage with any questions or concerns. GINETTE Sanchez May 03, 2023 11:05 AM BELOW ARE THE PREP INSTRUCTIONS IF PT CALLS BACK WITH QUESTIONS EGD Prep Instructions Dietary Restrictions: -No solid food after midnight. -You may have clear liquids (water, clear juices such as apple juice or Gatorade, carbonated beverages, clear tea, black coffee, jello) until 2 hours before scheduled arrival at facility. After this time do not have anything by mouth which includes water, gum, candy, chewing tobacco, snuff or food items. Medications: -Unless instructed differently below, stay on all of your medications until your Procedure/Surgery. -The morning of the Procedure/Surgery take your blood pressure medications, heart medications or seizure medications with a small sip of water unless instructed differently by your physician. 1 week prior to your procedure: If you take insulin, diabetic medications or blood thinners such as Coumadin (warfarin), Plavix (clopidogrel), Ticlid (ticlopidine hydrochloride), Agrylin (anagrelide), Xarelto (Rivaroxaban), Pradaxa (Dabigatran), Eliquis (Apixaban), and Effient (Prasugrel). You MUST call the doctors who orders those medicines for instructions on altering the dosage or stopping them before your procedure. Important Reminders: - Candy, mints, and tobacco products are NOT permitted the morning of Procedure/Surgery. - Hearing aids, dentures and glasses may be worn the morning of Procedure/Surgery. If you develop symptoms such as a fever, cold, or flu, or have other changes to your health within TWO DAYS of your scheduled Procedure/Surgery or the morning of Procedure/Surgery, please contact the surgery center where you are scheduled. - YOU MUST HAVE A RESPONSIBLE TOP BOTTOM ATTACHING MACHINE OPERATOR TAKE YOU HOME. A SERVOMECHANISM ASSEMBLER OR SECURITY INSTALLATION TECHNICIAN CANNOT BE MADE A RESPONSIBLE TOP BOTTOM ATTACHING MACHINE OPERATOR. Please call [phone] and ask for Nurse Triage with any Questions or Concerns. Thank You Allergies As of Date: 05/03/2023 Noted Allergy Reaction CYMBALTA (DULOXETINE) 04/19/2023 5 - Intolerance Date Reviewed: 04/19/2023 Reviewed by: Sarah Shah Ma - Fully Assessed Reason for Visit: Pre-Op Teaching [134] Prescriptions as of 05/03/2023 - acyclovir (ZOVIRAX) 400 mg tablet Take 400 mg by mouth. - amitriptyline (ELAVIL) 50 mg tablet Amitriptyline Active 50 MG PO Daily March 29, 2017 12:00am - aspirin 81 mg chewable tablet Take 1 tablet by mouth once daily. - atenolol (TENORMIN) 50 mg tablet Take 50 mg by mouth. - calcium carbonate (CALTRATE) 600 mg calcium (1,500 mg) tab Take 1,200 mg by mouth. - cetirizine 10 mg ODT Take by mouth. - Cholecalciferol, Vitamin D3, 50 mcg (2,000 unit) cap 1 capsule. - docusate sodium (COLACE) 100 mg capsule Take 200 mg by mouth. - escitalopram oxalate (LEXAPRO) 20 mg tablet Take 20 mg by mouth. - gabapentin (NEURONTIN) 100 mg capsule Gabapentin Active 100 MG PO Three times daily March 29, 2017 12:00am - levothyroxine (SYNTHROID) 50 mcg tablet Levothyroxine Active 100 MCG PO Daily October 22, 2018 11:00pm - omeprazole (PRILOSEC) 20 mg capsule Take by mouth as directed. - oxybutynin ER (DITROPAN XL) 10 mg 24 hr tablet Take 10 mg by mouth. - rOPINIRole (REQUIP) 2 mg tablet TAKE FOUR TABLETS BY MOUTH DAILY - traMADol (ULTRAM) 50 mg tablet Take 50 mg by mouth every 6 hours as needed. Problem List As Of Date: 05/03/2023 (None) Encounter Status:Closed by SUSU LEIGH on 05/03/23 [facility] CNOVdionicio 04-19-2023 [facility] Office Visit ([facility] ) -- GERRY VICTORIA ([id number]) 1955 F Date Time Provider Department 04/19/23 3:00 PM JJAA REDDY During your visit today, we recorded the following information about you: Pulse Blood pressure Weight Height 68/minute 131/87 79.4 kg 1.549 m Jaja Reddy MD 04/19/2023 2:56 PM Addendum Endoscopy at [facility] 05/08/23 arrive at 11:45am Jaja Reddy MD [...] No history of dysuria, frequency or incontinence GUEST ADVISOR: Negative for abnormal vaginal bleeding, abnormal vaginal discharge MUSCULOSKELETAL: Negative for joint pain or swelling, back pain or muscle pain SKIN: Negative for lesions, rash, and itching PSYCH: Negative for sleep disturbance, mood disorder and recent psychosocial stressors HEMATOLOGY/LYMPHOLOGY: Negative for prolonged bleeding, bruising easily or swollen nodes ENDOCRINE: Negative for cold or heat intoleranc (more content not included)... Normal [facility] HISTORY PHYSICALon HISTORY PHYSICAL HNO ID: [id number] Author: JAJA REDDY MD Service: ? Author Type: Physician Type: H&P Filed: 04/19/2023 20:59 Note Text: NEW PATIENT VISIT REASON FOR VISIT: Epigastric pain HPI: Grery Victoria is a 67 year old female [...] No history of dysuria, frequency or incontinence GUEST ADVISOR: Negative for abnormal vaginal bleeding, abnormal vaginal [...] no suspici (more content not included)... Normal [facility] MR SHOULDER LEFT WO IV CONTR [...] Urnls Dip Stick Auto w/o Microscopy POC 60919 Your Care Team Attending Physician - DARRYN [...] MARYCARMEN NAVA PA-C Where: [facility] Elvis Pacheco [facility] Patient Educationon 03-02-20 23 Patient Education Obstetrics [...] provider. Document Revised: 07/22/2021 Document Reviewed: 07/22/2021 [employer] Patient Education ? 2022 [employer] Normal [facility] Urology Office/Clinic Noteon 03-02-2023 Urology Office/Clinic Note [...] (more content not included)... Normal [facility] Comment on above: Result Comment: Elec tronically Signed By: DARRYN Alicia APRN, Ketty Jaeger\.br\Date and Time Signed: 03/02/23 13:39 EST\.br\Electronically Co-Signed By: Gema Erickson\.br\Date and Time Co-Signed: 03/02/23 13:37 EST Alanine aminotransferase [En zymatic activity/volume] in Serum or PlasmaOrdered By: Pravin Granado on 12-17-2022 ALT [Catalytic activity/Vol] 11 U/L 7-52 [facility] Albumin [Mass/volume] in Ser um or Plasma by Bromocresol green (BCG) dye binding methoOrdered By: Pravin Granado on 12-17-2022 Albumin BCG dye [Mass/Vol] 4.4 g/dL 3.5-5.7 [facility] Alkaline phosphatase [Enzyma tic activity/volume] in Serum or PlasmaOrdered By: Pravin Granado on 12-17-2022 ALP [Catalytic activity/Vol] 79 U/L 34-104 [facility] Amylaseon 12-17-2022 Amylase [Catalytic activity/Vol] 22 U/L Low 29-103 [facility] Comment on above: Performed By: #### L IPASE, CMP, UMU #### [facility] [address] Amylase [Enzymatic activity/ volume] in Serum or PlasmaOrdered By: Pravin Granado on 12-17-2022 Amylase [Catalytic activity/Vol] 22 U/L 29-103 [facility] Aspartate aminotransferase [ Enzymatic activity/volume] in Serum or PlasmaOrdered By: Pravin Granado on 12-17-2022 AST [Catalytic activity/Vol] 22 U/L 13-39 [facility] Basophils Auto (Bld) [#/Vol] Ordered By: Pravin Granado on 12-17-2022 Basophils (Bld) [#/Vol] 0.0 10*3/uL 0.0-0.2 [facility] Basophils/100 WBC Auto (Bld) Ordered By: Pravin Granado on 12-17-2022 Basophils/100 WBC (Bld) 0.9 % . [facility] Bilirubin.total [Mass/volume ] in Serum or PlasmaOrdered By: Pravin Granado on 12-17-2022 Bilirubin [Mass/Vol] 0.7 mg/dL 0.3-1.0 [facility] Calcium [Mass/volume] in Ser um or PlasmaOrdered By: Pravin Granado on 12-17-2022 Calcium [Mass/Vol] 9.4 mg/dL 8.6-10.3 [facility] Carbon dioxide, total [Moles /volume] in Serum or PlasmaOrdered By: Pravin Granado on 12-17-2022 CO2 [Moles/Vol] 29.9 mmol/L 21.0-31.0 [facility] Chloride [Moles/volume] in S nia or PlasmaOrdered By: Pravin Granado on 12-17-2022 Chloride [Moles/Vol] 101 mmol/L 98-107 [facility] Complete Blood Count Auto Di ffon 12-17-2022 Basophils (Bld) [#/Vol] 0.0 10*3/uL Normal 0.0-0.2 [facility] Comment on above: Result Comment: PERF ORMED BY: [place] [address] PATHOLOGIST FEATHER MAKER WILDER BOTELLO M.D. Performed By: #### C BC #### [address] Basophils/100 WBC (Bld) 0.9 % Normal . [facility] Comment on above: Performed By: #### C BC #### [facility] [address] [place] [address] [place] Eosinophils (Bld) [#/Vol] 0.1 10*3/uL Normal 0.0-0.45 [facility] Comment on above: Performed By: #### C BC #### [address] Eosinophils/100 WBC (Bld) 2.9 % Normal . [facility] Comment on above: Performed By: #### C BC #### [facility] [address] Erythrocyte distribution width (RBC) [Ratio] 17.1 % High 11.9-15.3 [facility] Comment on above: Performed By: #### C BC #### [facility] [address] Hematocrit (Bld) [Volume fraction] 33.5 % Low 34.0-46.4 [facility] Comment on above: Performed By: #### C BC #### [address] Hemoglobin (Bld) [Mass/Vol] 11.0 g/dL Low 11.8-15.4 [facility] Comment on above: Performed By: #### C BC #### [address] Lymphocytes (Bld) [#/Vol] 1.2 10*3/uL Normal 1.00-4.8 [facility] Comment on above: Performed By: #### C BC #### [address] Lymphocytes/100 WBC (Bld) 24.6 % Normal . [facility] Comment on above: Performed By: #### C BC #### [address] MCH (RBC) [Entitic mass] 27.0 pg Normal 24.7-34.3 [facility] Comment on above: Performed By: #### C BC #### [address] MCV (RBC) [Entitic vol] 82.6 fL Normal 80-100 [facility] Comment on above: Performed By: #### C BC #### [address] Mean Corpuscular HGB Conc 32.7 g/dL Normal 32.0-35.0 [facility] Comment on above: Performed By: #### C BC #### [address] Monocytes (Bld) [#/Vol] 0.3 10*3/uL Normal 0.0-0.8 [facility] Comment on above: Performed By: #### C BC #### [address] Monocytes/100 WBC (Bld) 19.78 % Normal 0.00-20.00 [facility] Comment on above: Performed By: #### C BC #### [place] [address] [place] Monocytes/100 WBC (Bld) 6.1 % Normal . [facility] Comment on above: Performed By: #### C BC #### [facility] [address] Neutrophils (Bld) [#/Vol] 3.1 10*3/uL Normal 1.8-7.7 [facility] Comment on above: Performed By: #### C BC #### [facility] [address] Neutrophils/100 WBC (Bld) 65.5 % Normal . [facility] Comment on above: Performed By: #### C BC #### [facility] [address] NRBC% 0.3 /100{WBC} Normal 0-0.5 [facility] Comment on above: Performed By: #### C BC #### [address] Platelet mean volume (Bld) [Entitic vol] 8.1 fL Normal 6.3-10.7 [facility] Comment on above: Performed By: #### C BC #### [facility] [address] Platelets (Bld) [#/Vol] 236 10*3/uL Normal 150-450 [facility] Comment on above: Performed By: #### C BC #### [facility] [address] RBC (Bld) [#/Vol] 4.05 10*6/uL Normal 3.60-5.00 [facility] Comment on above: Performed By: #### C BC #### [facility] [address] WBC (Bld) [#/Vol] 4.8 10*3/uL Normal 3.8-11.6 [facility] Comment on above: Performed By: #### C BC #### [facility] [address] Comprehensive Metabolic Pane lit 12-17-2022 Albumin [Mass/Vol] 4.4 g/dL Normal 3.5-5.7 [facility] Comment on above: Performed By: #### L IPASE CMP, UMU #### [facility] [address] Albumin/Globulin [Mass ratio] 1.4 {ratio} Normal [facility] Comment on above: Performed By: #### L IPASE, CMP, UMU #### [facility] [address] ALP [Catalytic activity/Vol] 79 U/L Normal 34-104 [facility] Comment on above: Performed By: #### L IPASE, CMP, UMU #### [facility] [address] ALT [Catalytic activity/Vol] 11 U/L Normal 7-52 [facility] Comment on above: Performed By: #### L IPASE, CMP, UMU #### [address] Anion gap [Moles/Vol] 9.4 mmol/L Normal 6.0-15.0 [facility] Comment on above: Performed By: #### L IPASE, CMP, UMU #### [address] AST [Catalytic activity/Vol] 22 U/L Normal 13-39 [facility] Comment on above: Performed By: #### L IPASE, CMP, UMU #### [address] Bilirubin [Mass/Vol] 0.7 mg/dL Normal 0.3-1.0 [facility] Comment on above: Performed By: #### L IPASE, CMP, UMU #### [address] Calcium [Mass/Vol] 9.4 mg/dL Normal 8.6-10.3 [facility] Comment on above: Performed By: #### L IPASE, CMP, UMU #### [place] [address] [place] Chloride [Moles/Vol] 101 mmol/L Normal 98-107 [facility] Comment on above: Performed By: #### L MONICA MEYERS, UMU #### [facility] [address] CO2 [Moles/Vol] 29.9 mmol/L Normal 21.0-31.0 [facility] Comment on above: Performed By: #### L MONICA MEYERS, UMU #### [facility] [address] Creatinine [Mass/Vol] 0.90 mg/dL Normal 0.60-1.20 [facility] Comment on above: Performed By: #### L MONICA MEYERS, UMU #### [facility] [address] [place] [address] [place] GFR/1.73 sq M.predicted MDRD (S/P/Bld) [Vol rate/Area] mL/min/{1.73_m2} [facility] Comment on above: Performed By: #### L MONICA MEYERS, UMU #### [facility] [address] Globulin (S) [Mass/Vol] 3.1 g/dL [facility] Comment on above: Performed By: #### L MONICA MEYERS, UMU #### [address] Glucose [Mass/Vol] 119 mg/dL High 70-100 [facility] Comment on above: Result Comment: [place] Glucose Reference Range is dependent on time and content of last meal. Glucose of more than 200 mg/dL in a nonstressed, ambulatory subject supports the diagnosis of Diabetes Mellitus. ADA recommended reference range Performed By: #### L MONICA MEYERS, UMU #### [facility] [address] Potassium [Moles/Vol] 3.3 mmol/L Low 3.5-5.1 [facility] Comment on above: Performed By: #### L MONICA MEYERS, UMU #### [facility] [address] [place] [address] [place] Protein [Mass/Vol] 7.5 g/dL Normal 6.4-8.9 [facility] Comment on above: Performed By: #### L IPAMONICA FERNANDEZ, UMU #### [facility] [address] Sodium [Moles/Vol] 137 mmol/L Normal 136-145 [facility] Comment on above: Performed By: #### L IPASEMONICA, UMU #### [facility] [address] [place] [address] [place] Urea nitrogen [Mass/Vol] 14 mg/dL Normal 7-25 [facility] Comment on above: Performed By: #### L KERWINSEMONICA, UMU #### [facility] [address] Creatinine [Mass/volume] in Serum or PlasmaOrdered By: Pravin Granado on 12-17-2022 Creatinine [Mass/Vol] 0.90 mg/dL 0.60-1.20 [facility] ECG 12 lead ECGon 12-17-2022 ECG 12 lead ECG [facility] [address] [place] [address] [place] [address] Electrocardiograph Report Signed Patient: Gerry Victoria MR#: [id number] 10 : 1955 Acct:[id number] Age/Sex: 67 / F ADM Date: 12/17/22 Loc: ER Room: Type: [facility] ER Attending Dr: Ordering Provider: [...] When compared with ECG of 15-MAY-2022 20:35, SC interval has increased T wave amplitude has decreased in Inferior leads T wave amplitude has decreased in Anterior leads Confirmed by PRAVIN GRANADO MD ([id number]) on 12/17/2022 3:34:33 PM Referred By: Electronically Signed By:PRAVIN GRANADO MD Transcribed By: MUS Signed By Pravin Granado MD 12/17/22 1534 Normal [facility] Eosinophils Auto (Bld) [#/Vo l]Ordered By: Pravin Granado on 12-17-2022 Eosinophils (Bld) [#/Vol] 0.1 10*3/uL 0.0-0.45 [facility] Eosinophils/100 WBC Auto (Bl d)Ordered By: Pravin Granado on 12-17-2022 Eosinophils/100 WBC (Bld) 2.9 % . [facility] Erythrocyte distribution wid th Auto (RBC) [Ratio]Ordered By: Pravin Granado on 12-17-2022 Erythrocyte distribution width (RBC) [Ratio] 17.1 % 11.9-15.3 [facility] Globulin Calc (S) [Mass/Vol] Ordered By: Pravin Granado on 12-17-2022 Globulin (S) [Mass/Vol] 3.1 g/dL [facility] Glucose [Mass/volume] in Ser um or PlasmaOrdered By: Pravin Granado on 12-17-2022 Glucose [Mass/Vol] 119 mg/dL 70-100 [facility] Comment on above: ADA recommended refe rence rangeRandom Glucose Reference Range is dependent on time and content of last meal. Glucose of more than 200 mg/dL in a nonstressed, ambulatory subject supports the diagnosis of Diabetes Mellitus. Hematocrit Auto (Bld) [Volum e fraction]Ordered By: Pravin Granado on 12-17-2022 Hematocrit (Bld) [Volume fraction] 33.5 % 34.0-46.4 [facility] Hemoglobin [Mass/volume] in BloodOrdered By: Pravin Granado on 12-17-2022 Hemoglobin (Bld) [Mass/Vol] 11.0 g/dL 11.8-15.4 [facility] Leukocytes [#/volume] correc poly for nucleated erythrocytes in Blood by Automated counOrdered By: Pravin Granado on 12-17-2022 WBC corrected for nucl RBC Auto (Bld) [#/Vol] 4.8 10*3/uL 3.8-11.6 [facility] Lipaseon 12-17-2022 Lipase [Catalytic activity/Vol] 8.0 U/L Low 11.0-82.0 [facility] Comment on above: Result Comment: PERF ORMED BY: [facility] [address] [place] [address] PATHOLOGIST FEATHER MAKER WILDER BOTELLO M.D. Performed By: #### L IPASE, CMP, UMU #### [facility] [address] Lipase [Enzymatic activity/v olume] in Serum or PlasmaOrdered By: Pravin Granado on 12-17-2022 Lipase [Catalytic activity/Vol] 8.0 U/L 11.0-82.0 [facility] Lymphocytes Auto (Bld) [#/Vo l]Ordered By: Pravin Granado on 12-17-2022 Lymphocytes (Bld) [#/Vol] 1.2 10*3/uL 1.00-4.8 [facility] Lymphocytes/100 WBC Auto (Bl d)Ordered By: Pravin Granado on 12-17-2022 Lymphocytes/100 WBC (Bld) 24.6 % . [facility] MCH Auto (RBC) [Entitic mass ]Ordered By: Pravin Granado on 12-17-2022 MCH (RBC) [Entitic mass] 27.0 pg 24.7-34.3 [facility] MCHC Auto (RBC) [Mass/Vol]Or dered By: Pravin Granado on 12-17-2022 MCHC (RBC) [Mass/Vol] 32.7 g/dL 32.0-35.0 [facility] MCV Auto (RBC) [Entitic vol] Ordered By: Pravin Granado on 12-17-2022 MCV (RBC) [Entitic vol] 82.6 fL 80-100 [facility] Monocyte distribution width [Entitic volume] in Blood by AutomatedOrdered By: Pravin Granado on 12-17-2022 Monocyte distribution width Auto (Bld) [Entitic vol] 19.78 % 0.00-20.00 [facility] Monocytes Auto (Bld) [#/Vol] Ordered By: Pravin Granado on 12-17-2022 Monocytes (Bld) [#/Vol] 0.3 10*3/uL 0.0-0.8 [facility] Monocytes/100 WBC Auto (Bld) Ordered By: Pravin Granado on 12-17-2022 Monocytes/100 WBC (Bld) 6.1 % . [facility] Neutrophils Auto (Bld) [#/Vo l]Ordered By: Pravin Granado on 12-17-2022 Neutrophils (Bld) [#/Vol] 3.1 10*3/uL 1.8-7.7 [facility] Neutrophils/100 WBC Auto (Bl d)Ordered By: Pravin Granado on 12-17-2022 Neutrophils/100 WBC (Bld) 65.5 % . [facility] No Panel InformationOrdered By: Pravin Granado on 12-17-2022 Estimated GFR (CKD-EPI) > 60.0 mL/Min [facility] Creatinine Clearance (Chem N/A [facility] Nucleated erythrocytes [Pres ence] in Blood by Automated countOrdered By: Pravin Granado on 12-17-2022 Nucleated RBC Auto Ql (Bld) 0.3 /100{WBC} 0-0.5 [facility] Platelet mean volume Auto (B ld) [Entitic vol]Ordered By: Pravin Granado on 12-17-2022 Platelet mean volume (Bld) [Entitic vol] 8.1 fL 6.3-10.7 [facility] Platelets Auto (Bld) [#/Vol] Ordered By: Pravin Granado on 12-17-2022 Platelets (Bld) [#/Vol] 236 10*3/uL 150-450 [facility] Potassium [Moles/volume] in Serum or PlasmaOrdered By: Pravin Granado on 12-17-2022 Potassium [Moles/Vol] 3.3 mmol/L 3.5-5.1 [facility] Protein [Mass/volume] in Ser um or PlasmaOrdered By: Pravin Granado on 12-17-2022 Protein [Mass/Vol] 7.5 g/dL 6.4-8.9 [facility] RBC Auto (Bld) [#/Vol]Ordere d By: Pravin Granado on 12-17-2022 RBC (Bld) [#/Vol] 4.05 10*6/uL 3.60-5.00 [facility] Serum or plasma albumin/glob ulin mass ratioOrdered By: Pravin Granado on 12-17-2022 Albumin/Globulin [Mass ratio] 1.4 {ratio} [facility] Serum or plasma anion gap de terminationOrdered By: Pravin Granado on 12-17-2022 Anion gap [Moles/Vol] 9.4 mmol/L 6.0-15.0 [facility] Sodium [Moles/volume] in Ser um or PlasmaOrdered By: Pravin Granado on 12-17-2022 Sodium [Moles/Vol] 137 mmol/L 136-145 [facility] Urea nitrogen [Mass/volume] in Serum or PlasmaOrdered By: Pravin Granado on 12-17-2022 Urea nitrogen [Mass/Vol] 14 mg/dL 7-25 [facility] WBC Auto (Bld) [#/Vol]Ordere d By: Pravin Granado on 12-17-2022 WBC (Bld) [#/Vol] 4.8 10*3/uL 3.8-11.6 [facility] US venous duplex LE LTon US venous duplex LE LT [facility] [place] [address] Ultrasound Report Signed Patient: Gerry Victoria MR#: [id number] 10 : 1955 Acct:[id number] Age/Sex: 67 / F ADM Date: 11/04/22 Loc: Room: Type: [facility] Attending Dr: Ward Mtz MD Ordering [...] 7 mm in greatest diameter. 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 Lesser saphenous vein is also incompetent and dilated. Impression dictated by: Ward Mtz M.D.11/07/2022 12:52 PM Dictation Location: [place] [address] Tech: Ana Shrestha Transcribed By: MANUEL 11/07/22 1252 Dictated By: Ward Mtz MD 11/07/22 1249 Signed By: 11/07/22 1252 [facility] [address] cervical spine wo conon 0 11-04-2022 CT cervical spine wo con [facility] [place] [address] CT Scan Report Signed Patient: Gerry Victoria MR#: [id number] 10 : 1955 Acct:[id number] Age/Sex: 67 / F ADM Date: 11/04/22 Loc: ER Room: Type: PRE ER Attending Dr: Copies to: Maico Perla DO Ordering Provider: Maico Perla DO Date of Service: 11/04/22 CT/CT head/brain wo con: fall ([id number]) CT/CT cervical spine wo con: fall CLINICAL [...] Elaine Mcadams M.D.11/04/2022 11:30 AM Dictation Location: [place] [address] Transcribed By: [facility] 11/04/22 1130 Dictated By: Elaine Mcadams MD 11/04/22 1123 Signed By: 11/04/22 1130 Normal [facility] XR knee LT 2Von 11-04-2022 XR knee LT 2V [facility] [address] [place] [address] [place] [address] XRay Report Signed Patient: Gerry Victoria MR#: [id number] 10 : 1955 Acct:[id number] Age/Sex: 67 / F ADM Date: 11/04/22 [...] Elaine Mcadams M.D.11/04/2022 11:37 AM Dictation Location: [place] [address] Transcribed By: [facility] 11/04/22 1137 Dictated By: Elaine Mcadams MD 11/04/22 1131 Signed By: 11/04/22 1137 [facility] MRSA Screenon 09-29-2022 MRSA DNA [...] Locations R1: This test was performed at: [facility], [address] [place] [address], [address] [place] [address], Normal [facility] Comment on above: Performed By: #### 1 [id number] #### [facility] [address] [place] [address] Auto Diffon 09-27-2022 Basophils/100 WBC (Bld) 1.0 % Normal 0.0-2.0 [facility] Comment on above: Order Comment: Order Added by Discern Expert. Performed By: #### 2 249325, 06151384, 0963615, 8368476, 8876040, 54403763, 7446494, 7772650 #### [facility] [address] [place] [address] Basophils/Leukocytes Auto (Bld) [Pure # fraction] 0.1 E9/L Normal 0.0-0.2 [facility] Comment on above: Order Comment: Order Added by Discern Expert. Performed By: #### 2 406370, 16969047, 5521374, 9179690, 8385042, 53027461, 5110965, 9653436 #### [facility] [address] [place] [address] Eosinophils/100 WBC (Bld) 8.4 % High 0.0-8.0 [facility] Comment on above: Order Comment: Order Added by Discern Expert. Performed By: #### 2 070551, 27354273, 3941253, 0923666, 4559240, 49572895, 9381331, 3601399 #### [facility] [address] [place] [address] Eosinophils/Leukocytes Auto (Bld) [Pure # fraction] 0.5 E9/L Normal 0.0-0.5 [facility] Comment on above: Order Comment: Order Added by Discern Expert. Performed By: #### 2 242710, 17202363, 0169252, 0875986, 1378495, 74325524, 7237073, 2198532 #### [facility] [address] [place] [address] Lymphocytes/100 WBC (Bld) 18.0 % Normal 14.0-50.0 [facility] Comment on above: Order Comment: Order Added by Discern Expert. Performed By: #### 2 822510, 87254859, 2996182, 0682454, 8746097, 68542713, 4497943, 9098000 #### [facility] [address] [place] [address] Lymphocytes/Leukocytes Auto (Bld) [Pure # fraction] 1.1 E9/L Normal 1.0-4.0 [facility] Comment on above: Order Comment: Order Added by Discern Expert. Performed By: #### 2 989772, 41936902, 8642442, 7874861, 1932702, 13056702, 3073687, 2875879 #### [facility] [address] [place] [address] Monocytes/100 WBC (Bld) 11.2 % Normal 4.0-14.0 [facility] Comment on above: Order Comment: Order Added by Debra Expert. Performed By: #### 2 217029, 56481132, 4524105, 9863847, 6279050, 14636161, 1347947, 8569952 #### [facility] [address] [place] [address] Monocytes/Leukocytes Auto (Bld) [Pure # fraction] 0.7 E9/L Normal 0.2-1.0 [facility] Comment on above: Order Comment: Order Added by Debra Expert. Performed By: #### 2 461786, 03772556, 1640468, 8871669, 4882411, 85708203, 1769924, 3934253 #### [facility] [address] [place] [address] Neutrophils/100 WBC (Bld) 61.4 % Normal 36.0-75.0 [facility] Comment on above: Order Comment: Order Added by Debra Expert. Performed By: #### 2 024885, 79506408, 1246371, 9091394, 0283646, 98234206, 8799795, 2940162 #### [facility] [address] [place] [address] Neutrophils/Leukocytes Auto (Bld) [Pure # fraction] 3.6 E9/L Normal 2.0-7.5 [facility] Comment on above: Order Comment: Order Added by Discern Expert. Performed By: #### 2 757937, 02302556, 8528662, 4959626, 4453425, 64662032, 9555775, 1490289 #### [facility] [address] [place] [address] BMPon 09-27-2022 Creatinine [Mass/Vol] 1.2 mg/dL Normal 0.5-1.3 [facility] Comment on above: Performed By: #### 2 581079, 50675678, 6496871, 9510088, 4238646, 75203316, 7312173, 3752367 #### [facility] [address] [place] [address] Urea nitrogen [Mass/Vol] 17 mg/dL Normal 5-21 [facility] Comment on above: Performed By: #### 2 871157, 64406374, 4636302, 1441007, 1076702, 02369983, 6863987, 6270890 #### [facility] [address] [place] [address] Urea nitrogen/Creatinine [Mass ratio] 14 No Units Normal 10-20 [facility] Comment on above: Performed By: #### 2 675245, 20193813, 1296783, 1226018, 7831335, 02844108, 9322006, 1107405 #### [facility] [address] [place] [address] Anion gap [Moles/Vol] 12 mmol/L Normal 6-16 [facility] Comment on above: Performed By: #### 2 648926, 77144195, 6451581, 2089080, 5413151, 50704349, 0343736, 4162763 #### [facility] [address] [place] [address] Calcium [Mass/Vol] 8.9 mg/dL Normal 8.9-11.1 [facility] Comment on above: Performed By: #### 2 087199, 02908519, 6903716, 9341386, 1990178, 82138365, 3808798, 0396897 #### [facility] [address] [place] [address] Chloride [Moles/Vol] 101 mmol/L Normal 101-111 [facility] Comment on above: Performed By: #### 2 246516, 06210432, 2101187, 0888082, 9696163, 89899956, 1285308, 0841457 #### [facility] [address] [place] [address] CO2 [Moles/Vol] 29 mmol/L Normal 21-31 [facility] Comment on above: Performed By: #### 2 102123, 14148317, 0986946, 3065863, 7472644, 58801400, 6173425, 1771532 #### [facility] [address] [place] [address] Glucose [Mass/Vol] 84 mg/dL Normal 55-199 [facility] Comment on above: Result Comment: If t his glucose result represents a fasting glucose, interpretation should refer to the following reference range: 55-99 mg/dL Performed By: #### 2 284892, 08988279, 6280132, 8531430, 0032716, 97641649, 7727172, 1928765 #### [facility] [address] [place] [address] Potassium [Moles/Vol] 3.6 mmol/L Normal 3.5-5.3 [facility] Comment on above: Performed By: #### 2 400237, 90064201, 9453729, 1786046, 1076535, 82159592, 3417335, 1695477 #### [facility] [address] [place] [address] Sodium [Moles/Vol] 138 mmol/L Normal 135-145 [facility] Comment on above: Performed By: #### 2 168952, 10331256, 6428768, 2853115, 6151110, 45376826, 8842177, 9374648 #### [facility] [address] [place] [address] CBC w/ Auto Diffon 3 Erythrocyte distribution width (RBC) [Ratio] 15.9 % High 10.9-14.2 [facility] Comment on above: Performed By: #### 2 364249, 36952048, 8309836, 8220540, 0023647, 65921252, 5606116, 9241738 #### [facility] [address] [place] [address] Hematocrit (Bld) [Volume fraction] 29.2 % Low 34.0-46.0 [facility] Comment on above: Performed By: #### 2 546925, 02090872, 3754180, 2737636, 5000164, 45075248, 9540029, 2158536 #### [facility] [address] [place], [place] [address] Hemoglobin (Bld) [Mass/Vol] 9.6 g/dL Low 12.0-16.0 [facility] Comment on above: Performed By: #### 2 908495, 07188313, 3277813, 7427346, 5389506, 78435705, 7861829, 8068524 #### [facility] [address] [place] [address] MCH (RBC) [Entitic mass] 26.4 pg Low 27.0-34.0 [facility] Comment on above: Performed By: #### 2 642483, 67374019, 5347809, 7983110, 9542308, 11949590, 1465438, 6607127 #### [facility] [address] [place] [address] MCHC (RBC) [Mass/Vol] 33.0 g/dL Normal 31.4-36.0 [facility] Comment on above: Performed By: #### 2 233864, 89883584, 8637605, 3003335, 1477119, 47318279, 3963182, 2410736 #### [facility] [address] [place] [address] MCV (RBC) [Entitic vol] 79.9 fL Low 80.0-100.0 [facility] Comment on above: Performed By: #### 2 010168, 13003691, 3354121, 0741096, 5317661, 01811565, 1335443, 2360929 #### [facility] [address] [place] [address] Platelet mean volume (Bld) [Entitic vol] 7.9 fL Normal 6.4-10.8 [facility] Comment on above: Performed By: #### 2 071763, 45820253, 1461374, 7395828, 5996778, 32321468, 7807722, 6862822 #### [facility] [address] [place] [address] Platelets (Bld) [#/Vol] 249.0 E9/L Normal 150.0-500. 0 [facility] Comment on above: Performed By: #### 2 061600, 75804810, 6087232, 3982040, 4435322, 65777085, 2407814, 8135814 #### [facility] [address] [place] [address] RBC (Bld) [#/Vol] 3.7 E12/L Low 4.3-5.9 [facility] Comment on above: Performed By: #### 2 595420, 67810454, 4579805, 2708956, 1401986, 25859726, 4113380, 3867475 #### [facility] [address] [place] [address] WBC corrected for nucl RBC Auto (Bld) [#/Vol] 5.9 E9/L Normal 4.0-11.0 [facility] Comment on above: Performed By: #### 2 811908, 16913207, 6081128, 6092496, 8656660, 76841005, 1684952, 4328019 #### [facility] [address] [place] [address] CHEMISTRYOrdered By: SYSTEM SYSTEM on 09-27-2022 Albumin [...] 3.2 g/dL Normal 1.4 - 4.0 gm/dL [facility] Remisol Glucose [Mass/Vol] 84 mg/dL Normal 55 - 199 mg/dL [facility] Lactate [Mass/Vol] 0.5 mmol/L Normal 0.5 - 2.2 mmol/L [facility] Potassium [Moles/Vol] 3.6 mmol/L Normal 3.5 - 5.3 mmol/L [facility] Protein [Mass/Vol] 7.0 g/dL Normal 6.0 - 7.8 gm/dL [facility] Sodium [Moles/Vol] 138 mmol/L Normal 135 - 145 mmol/L [facility] Remisol Urea nitrogen [Mass/Vol] 17 mg/dL Normal 5 - 21 mg/dL [facility] Remisol Urea nitrogen/Creatinine [Mass ratio] 14 mg/mg Normal 10 - 20 [facility] CRPon 09-27-2022 CRP [Mass/Vol] 7.5 mg/dL High <=1.9 [facility] Comment on above: Performed By: #### 2 845475, 56430451, 7384392, 3630847, 8978588, 19845726, 6751120, 8362470 #### [facility] [address] [place] [address] Consent To Leave AMAon 09-27 Consent To Leave AMA [id number]:127 Normal [facility] Consent for Treatmenton Consent for Treatment [id number]:127 Normal [facility] Discharge Instructionson Discharge Instructions [id number]:127 Normal [facility] ED Clinical Summaryon 2022 ED Clinical Summary (Inserted Image. Zora ble to display) [facility] [address] [place], [place] [address] ED Clinical Summary Person Information Name: GERRY VICTORIA [place] Age: 67 Years : 1955 Sex: Female Language: Luxembourger PCP: WARD ZUNIGA DO Marital Status: Visit [...] 11:03:38 09/27/2022 11:03:38 ADDRESS: [id number] [place] [id number] PHYS DOC NOTES: MEDICAL INFORMATION: Prescriptions Given: New Medications [facility] [id number], [address] [place], [place] [id number], [phone] cephalexin (Keflex 500 mg Cap) 1 Capsules [...] (more content not included)... Normal [facility] ED Note-Physicianon 09-28-19 ED Note-Physician Basic Information [...] She states she then went to the [facility] Urgent care clinic and she was [...] (more content not included)... Normal [facility] Comment on above: Result Comment: Elec tronically Signed By: Michelle Mckenna PA-C\.br\Date and Time Signed: 09/27/22 03:31 EDT\.br\Electronically Co-Signed By: Chintan Heller DO.br\Date and Time Co-Signed: 09/27/22 06:10 EDT ED [...] these instructions at home: Medicines ? Take [id number] and prescription medicines only as told by [...] provider. Document Revised: 12/23/2021 Document Reviewed: 12/23/2021 [employer] Patient Education ? 2022 [employer] Normal [facility] ED Patient Summaryon 023 ED Patient Summary (Inserted Image. Zora ble to display) [place] [id number] Patient Discharge Instructions Person Information Name: GERRY VICTORIA Age: 67 Years Arrival Date: 09/26/2022 22:52:57 Discharge Diagnosis: 1:Cellulitis of leg; 2:CAD (coronary atherosclerotic disease); 3:RLS (restless legs syndrome); 4:Hypothyroid; 5:HLD (hyperlipidemia); 6:Depression; 7:On deep vein thrombosis (DVT) prophylaxis; Left against medical advice Primary Care Physician: WARD ZUNIGA DO Provider Information Primary Provider: Chintan Heller DO Advanced Ventilating Expert:None The exam and treatment you received in the Emergency Department were for an urgent problem and are not intended as complete care. It is important that you follow up with a doctor, nurse practitioner, or physician?s operations manager assistant for ongoing care. If your symptoms [...] Follow-up Instructions: With: Address: When: WARD ZUNIGA [facility] [facility] [address] [place], [place] [id number] In 3 days 09/30/2022 In the event that this physician does not participate in your insurance network, please consult with your insurance company to find a nearby participating provider. Patient Education Materials: Cellulitis, Adult, Vhrw-iu-Smbi A MESSAGE TO ALL PATIENTS REGARDING OPIOIDS PRESCRIPTION OPIOIDS: WHAT YOU NEED TO KNOW Prescription opioids can be used to help relieve vhkykqjn-qk-mnqegu pain and are often prescribed following a [...] (more content not included)... Normal [facility] HEMATOLOGYOrdered By: SYSTEM SYSTEM on 09-27-2022 Basophils/100 [...] 25 mm/h Normal 0 - 34 mm/hr [facility] HemeAutoSS WBC corrected for nucl RBC Auto (Bld) [#/Vol] 5.9 E9/L Normal 4.0 - 11.0 E9/L [facility] HemeAutoSS Hep Func Panelon 09-27-2022 Albumin [Mass/Vol] 3.8 g/dL Normal 3.3-5.0 [facility] Comment on above: Performed By: #### 2 361969, 04614166, 9062320, 1484491, 0615469, 92578660, 8999919, 6717224 ####[facility] [address] [place] [address] Albumin/Globulin (S) [Mass conc ratio] 1.2 Normal 1.1-2.2 [facility] Comment on above: Performed By: #### 2 983617, 11954162, 4936509, 7059134, 9773074, 97542851, 1090065, 9856858 ####[facility] [address] [place] [address] ALP [Catalytic activity/Vol] 79 Int._Unit/L Normal 21-98 [facility] Comment on above: Performed By: #### 2 125072, 48622258, 8239529, 0583546, 1641765, 17839042, 8514642, 5433945 ####[facility] [address] [place] [address] ALT No additional P-5'-P [Catalytic activity/Vol] 11 Int._Unit/L Normal 6-46 [facility] Comment on above: Performed By: #### 2 015750, 00237042, 3114328, 5103442, 1788850, 33757507, 8028247, 6202023 ####[facility] [address] [place] [address] AST [Catalytic activity/Vol] 19 Int._Unit/L Normal 5-43 [facility] Comment on above: Performed By: #### 2 540396, 02588418, 3263585, 8587283, 2646607, 33283788, 0911960, 6715262 ####[facility] [address] [place] [address] Bilirubin [Mass/Vol] 0.6 mg/dL Normal 0.0-1.1 [facility] Comment on above: Performed By: #### 2 660537, 27068483, 1122692, 2120144, 5401617, 46662205, 6752361, 1918547 ####[facility] [address] [place] [address] Bilirubin.direct [Mass/Vol] 0.1 mg/dL Normal 0.1-0.4 [facility] Comment on above: Performed By: #### 2 040420, 98469682, 2026836, 8061881, 0335694, 29921814, 1695612, 1773549 ####[place] [id number] Bilirubin.indirect [Mass or moles/Vol] 0.5 mg/dL Normal 0.1-0.9 [facility] Comment on above: Performed By: #### 2 548763, 36277149, 6604732, 6705633, 1598958, 57367468, 8345232, 3357842 ####[place] [address] [place] [address] Globulin (S) [Mass/Vol] 3.2 g/dL Normal 1.4-4.0 [facility] Comment on above: Performed By: #### 2 400849, 57260766, 7844443, 7783870, 1458672, 81029302, 0484929, 8112255 ####[place] [address] [place] [address] Protein [Mass/Vol] 7.0 g/dL Normal 6.0-7.8 [facility] Comment on above: Performed By: #### 2 074955, 10639033, 2896208, 1444527, 9249742, 14657056, 0200846, 0332906 ####[facility] [address] [place] [address] Lactic Acidon 09-27-2022 Lactate [Mass/Vol] 0.5 mmol/L Normal 0.5-2.2 [facility] Comment on above: Performed By: #### 2 337594, 03765823, 6816394, 8319065, 6904719, 03147597, 3806019, 3782170 #### [facility] [address] [place] [address] Sed Rate Automatedon 023 Sed Rate Automated 25 mm/hr Normal 0-34 [facility] Comment on above: Performed By: #### 2 319813, 83489403, 4812089, 5863828, 2755795, 01992350, 7133798, 3483711 #### [facility] [address] [place] [address] UA With Cult Reflexon 2022 Bilirubin Ql (U) Negative Normal Negative [facility] Comment on above: Performed By: #### 1 3036913 ####[facility] [address] [place] [address] Clarity (U) SL CLOUDY Invalid Interpretation Code [facility] Comment on above: Performed By: #### 1 9322403 ####[facility] [address] [place] [address] Color (U) YELLOW Normal Yellow [facility] Comment on above: Performed By: #### 1 1157694 ####[facility] [address] [place] [address] Epithelial cells.squamous LM.HPF (Urine sed) [#/Area] /[HPF] Normal 0-2 [facility] Comment on above: Performed By: #### 1 2022766 ####[facility] [address] [place] [address] Glucose Test strip (U) [Mass/Vol] Negative Normal Negative [facility] Comment on above: Performed By: #### 1 4355092 ####[address] [address] Hemoglobin Ql (U) Negative Normal Negative [facility] Comment on above: Performed By: #### 1 0467882 ####[place] [address] [place] [address] Ketones (U) [Mass/Vol] Negative Normal Negative [facility] Comment on above: Performed By: #### 1 3685190 ####[address] [address] [place].plasma/[place] .RBC (Bld) [Mass ratio] 0-3 Normal 0-3 [facility] Comment on above: Performed By: #### 1 9025701 ####[address] [address] Mucus Ql (Urine sed) TRACE Normal [facility] Comment on above: Performed By: #### 1 1134405 ####[address] [address] Nitrite Ql (U) Negative Normal Negative [facility] Comment on above: Performed By: #### 1 6599249 ####[address] [address] pH (U) 6.0 [pH] Invalid Interpretation Code 5.0-9.0 [facility] Comment on above: Performed By: #### 1 6174076 ####[address] [address] Protein (U) [Mass/Vol] Negative Normal Negative [facility] Comment on above: Performed By: #### 1 1075835 ####[address] [address] Specific gravity (U) [Rel density] 1.010 Invalid Interpretation Code 1.005-1.03 0 [facility] Comment on above: Performed By: #### 1 3675134 ####[address] [address] Type of Urine collection method Clean Catch Normal [facility] Comment on above: Performed By: #### 1 1103695 ####[address] [place] [address] Urobilinogen Qn (U) 0.2 {Olivia'U}/dL Normal 0.0-1.0 [facility] Comment on above: Performed By: #### 1 4781402 ####[facility] [address] [place] [address] WBC Auto Ql (U) TRACE Abnormal Negative [facility] Comment on above: Performed By: #### 1 1228515 ####[facility] [address] [place] [address] WBC LM.HPF (Urine sed) [#/Area] 0-5 Normal 0-5 [facility] Comment on above: Performed By: #### 1 7793057 ####[facility] [address] [place] [address] URINALYSISOrdered By: Liz Bueno on 09-27-2022 Bilirubin [...] AM) Normal Negative [facility] UA Auto SS [place].plasma/[place] .RBC (Bld) [Mass ratio] 0-3 /HPF Normal [...] [facility] UA Auto SS Urobilinogen Qn (U) 0.1174267 {Olivia'U}/dL Normal 0.0 - 1.0 EU/dL FT UA Auto SS WBC Auto Ql (U) Trace *ABN* (09/27/22 4:48 AM) Invalid Interpretation Code Negative [facility] UA Auto SS WBC LM.HPF (Urine sed) [#/Area] 0-5 /HPF Normal 0-5/HPF [facility] UA Auto SS XR Ankle 3+ Views [...] na DAP = na Normal [facility] eGFRon 09-27-2022 GFR/1.73 sq M.predicted among non-blacks MDRD (S/P/Bld) [Vol rate/Area] 49 mL/min/1.73 m2 Low >=59 [facility] Comment on above: Order Comment: Order added by Discern Expert. Result Comment: Machine Tool Builder heidi kidney disease could be indicated at eGFR's of less than 60 mL/min/1.73m2. Kidney failure is indicated at less than 15 mL/min/1.73m2. Performed By: #### 2 790651, 26725828, 4517027, 7928120, 2656756, 20827600, 9383971, 2932398 ####[facility] [address] [place] [id number] Pre-Certification Formon Pre-Certification Form PT SCHEDULED W/ D R.REED FOR LAP MERLYN ON 07/26/22 PARAMOUNT PRIMARY AND ACTIVE NPCR PER PARAMOUNT CODE RELATIONS MGR (18223) DX [facility] Normal [facility] Free T4 (Free Thyroxine)on 0 09-06-2022 Free T4 [Mass/Vol] 0.30 ng/dL Low 0.61-1.12 [facility] Comment on above: Performed By: #### B MP, CBC, LIPASE, HEPATIC #### [facility] [address] Thyroid Stimulating Hormoneo n 09-06-2022 TSH Qn 14.86 m[IU]/L High 0.45-5.33 [facility] Comment on above: Result Comment: PERF ORMED BY: [facility] [address] [place] [address] PATHOLOGIST FEATHER MAKER WILDER BOTELLO M.D. Performed By: #### B MP, CBC, LIPASE, HEPATIC #### [facility] [address] Thyrotropin [Units/volume] i n Serum or PlasmaOrdered By: Ward Zuniga on 09-06-2022 TSH Qn 14.86 m[IU]/L 0.45-5.33 [facility] Thyroxine (T4) free [Mass/vo lume] in Serum or PlasmaOrdered By: Ward Zuniga on 09-06-2022 Free T4 [Mass/Vol] 0.30 ng/dL 0.61-1.12 [facility] Triiodothyronine (T3) Freeon 09-06-2022 Triiodothyronine (T3) Free 2.19 pg/mL Low 2.50-3.90 [facility] Comment on above: Result Comment: PERF ORMED BY: [facility] [address] [place] [id number] PATHOLOGIST FEATHER MAKER WILDER BOTELLO M.D. Performed By: #### B MP, CBC, LIPASE, HEPATIC #### [facility] [address] [place] [id number] [facility] Triiodothyronine (T3) Free [ Mass/volume] in Serum or PlasmaOrdered By: Ward Zuniga on 09-06-2022 Free T3 [Mass/Vol] 2.19 pg/mL 2.50-3.90 [facility] Coding Summary.on 08-02-2022 Coding Summary. CD:[id number] Ww+PGh lYWQ+OT3FKKVwK68xiRCvtF1zS 0NMTElOSywgQVBQTElOSyIgbmF jPQ2saLIvUAHi IC8+LK8xHTZkZtwmwTBpe2Y5dO A3V45xnu3uSLojoFE0IOZvLtAx fldhe5kgjHc8WHgqTqwtCaTj MZTafE33JMP4gT50Dp94pWEayM Pkl0qiuPw5JzLiBDPyRUF8eMnd TCfpl8TaKMAbF91doWBnr2L7 RGGurRtmsVEjJcNyqQC9pF6gST hxocerd5mecrbcOxl1wj36hLTc j6I1fQN5H1GumnI1SLAcvGYu QyzhhBEDsX7ejesrv6xgtfeeJx HkDQQpHTf5MVl4QNAssCrnXrJf PZ91NCI8TTRlflWnJ1WtOECi hFjzHcQ4l1N6Uc9RI3UWKbcsP1 VNTUFSWTwvdGQ+IK59gv85L3Di LfpoUtx9FMAbPUP6xZB5eG2w YPVnKKetz9H3mAY7Z6HznbDruc 1ok1lpUSRwTMkiG69isAFag9I1 DRGeeCX2MTTwjJvoYeQxoA80 Oyc+NMEsuPkyq9YdRyhzf5wpw3 kdcLp2PgtoPZDxgvSxqAqrLYM5 v4IkNv9uUXTajPS1nMB0oL3o TfUxOtA7VHofW692YmLagREyBr rmU95nW8CecFN+OZBiVin6KCLy nDjmHX5aO4UjDNRkusstsGQm zXbzQQ2bIJSnsnioECBvxN3iXL WjN3k1FmXkNtM6XLmaR8OaSDDg vddxMj61hE3bLkNjKtL8SWjt C7FrkhD2BPEuxDFoNGguTWG9L0 1uq2T2HPLzTPUmCPS8wZP0pG8k bGlnbjogbGVmdDsgdmVydGlj YFpaOVayV969DEThbQgvHtRfEV luZyBEYXRlOiAgMDUvMDkvMjAy MzwvdGQ+BAAhXSP7jZmqAWGf kIBoVYhyYs2zqLoadXatSX9vBR EhuoycKAVupL7nIQVehWAeuDbd KM2lJYAukjwgl096QxTqXDC8 YENinWBmQ4WzqR5zQfKhRVMfPP BfM0BvqPXoOIimU872PPbjJeB6 EEJbfjIuU2TyKXVhaJaiGqO0 p2C0Xr7Ae9HyhvkbS8HsrEFuHr KtWlcfSCs1P2UzDnxlzWE+PC90 PYYkQY19NPv6EIM9lEhuSPsg ZPLhC2IcgF5wJcHiYGZdUHXcOc c+PHRhYmxlIHdpZHRoPScxMDAl AqYbgIxdID6gNu9yTVTgIIAc vPwflFVlBrRlt4tpRDJvNAfzQF 6juMovC2JfeJK5XFPog2u3Zm27 H48kZ6BwbHH+ZRSpgBO9mPS7 sY6iKqYqNdE1NDpzG646DqZqyK GxZftgo7eca0zciVo0YjG8MLGq nzXksLjaJYP7m4LvSx02B47z IHdpZHRoPSIxNSUiIHZhbGlnbj 8bwD1sVq3+XPQwfGF7xZY5fI4d LyRsHgL6DOzbK198EvIttHWl Yupfn0cuu0aadZj9KeHnFOMzdj RulZlgHOU9p9HeZm87S6WhcHdy o7KjDvi2dy45dEBgf2H8bKI2 M6EzVCEtotwebTDymEkpKI9cLP NpfgaqVQXjmZ0eEDRyG7i0FhId MfD7RJxpB5DccrH4CXOsgYBo ILKduXTHqL6zegirz4kxzmrfRq DsDVRnJEw2UNl1JDYsaOtbCcPm CXQ8HlL7PBF3kXApgV7rrJxq eawnoG7fPjy+KEF1mNCwrJODRI 1lOjwvdGQ+UTDlXHL3bBltTXfr SVSavD4fGBJaR1y3JjOpPnV0 RDnyX3DhujI7CHVvsTKqDNVxsL HWbV4imvbfv7drebouLvMtRIAx JPo5TJe7UMOngIjhEuXtYOT0 SlA4YWV2nXAhxW1pvYhxgrqfcW 9wOyc+IqmgmPsoJIB4GXz2W1Ox Jdg8ZAXeqHhkXV5kbKCxKFwd Vf2sbCijhLriVS2uPPUxcpksj9 35OdBzs7oeEPAihQLqDMrjBJR6 E18ij5U0EEZgRTMmPRN7rTG4 jL0bzCuhusmznOOpdImnptPdfH ufLZwaBUefM317RPIffBrmKtWh GLy1B7JsAds8YVNblKdsYH6i mIIuJZxkYl7rmUayjSpmHK6oQV Clfgrxs364IpAnk4amLZZgrUCh RYbyYZS6D98km6E6XTSaQRKq XQK9jTQ0dJ0beHhgnoctqSSxoW wldwWdlXqqVIydWLpcU785LXWn qSqkUzSvmWp1V0XiGgj1UKEp lPpeUO3seRSnCBizVe1bfWekiW ftFP5dSIOtzrtjp133AcTcc7el ACRvaPSsCIyoVTK1R99tv2G0 REQqFLHqUEC8cOK5fI1ndQaocx ogbGVmdDsgdmVydGljYWwtYWxp O964QHOsiKsoThMcfDhoamQj KLcdJJw1O1RbRxlxrXX+PC90YW AbMD38fWGrvVIzz0mhySz4JcWn FDKfABM1qAusEFmyc5GsRYYn L81ydGKfe0Z1JSOvwWcelSHbFb HjhEE3rX3mOFfcrxiik8nfikov Tjfns7hijm14bE50P19nLKjy OXDcRRRbUGUoBNUzyAdtcs8arD 9wIi8+XRGqgCG6yHK2hP0qVFMp CvO1XHmnO641DvUozOPdVjfl q7klr4qqkDi9GkY3WFDpvsFlsU cfMIL6v7SzHv05K19tJIteXOYp IIKuRSWmWICbgSmvky8emY9v Ii8+BOBwnRN4pZI1rY6cCfUnMt A6CAecS571IjOieAFyVypdO55k V2XvvQN+HSKlHvx2IHTgxKqm TK5uhCAfAFegOw3eRMJ8IjTeMj MfBGntG9NxIGMjztvzbgsnuBP6 ZHDuNJNpdJ54Kk7szLkxCNMf kAKHhU4opdjos5dydtbaYbXjCK VzUGy5RJf7SHUdcYvxNjExGCL9 ZyK3BPI5dWOyeK9boWavfqbz rD7gI7ZdNVKxngyqHg43kN6tPq MiAxZ0LOaiUql+DBgNSK7EXBFR GLXRDzVXPY71KZ24wFEgx7U2 yTO9C9PoPHJcqzwfrztcgLB4PB BtZCSreE72oNZnGJdtOk2rq9U0 a185TPHcAZSdwN02Kl6fgSfc GRRxxIPWqO0ewuxkc1vyazypUf DdILGpOBf3GDz1INJjlCkrIlAb EQU0YrO5HWC1cRHbjH4epExg rmdekX1oYye+GFFsXrEfFXo9PK wvdGQ+CJVmIYD7qUwsLZtrCKHy sB2gERZtL5d9HsUiPcN9OEcj H6FjPJClfrptJn57sT0oJdLhKs X9YLwoM2LcpyH0LIYrxNJiEBtk CXM6T21ay8X0JSYxTHEfPRF0 tIZ1hA2jcXguduzhoNRyvFsslo OfhOeaSPdyOFzuR420MQOjiXey XmJ6YVcmTPAaUF63BR67yLWu l5N3kZQ6Q1PvCWHyxoyyfcaocI J5HYZlYGReyE45aYXkSGnhYh0g a2M7q646XZWlUNKpsW20Ug7v mBskXPOoyCUEuP8encwxi6hjdb tbSkLaSCApPJa6KIj5IROaeDlw YkKtYCG2JuT2ARB3oAQikB6e dNhvsvmjoR3nMra+RmVtYWxlPC 67EY95hVAau8X3fVW6I3GtKEDz vdaxdvazmYA3CEAeBPPjvQ74 mLYjZYroZw2vt2H1w230ESKsHT QelN76De1moEnhRKWajRGDxN4f qzizl9prnhqbBiAkQRDhNOr0 VWc0AONshVmfClPrFOE9YzR5UR J0nZOsbY6vcWynvgesuT4uAqy+ QU7ukNbyrS0kgS7NBO8lXNIc cMWPdSExDXC6KP25FD56J2DwIm wvdGFibGU+PHRhYmxlIHdpZHRo LFjyYMUtEeGemXfqAH0aRs4b LBBlLUHasTrtjFSgVrSuh0ybDM LiKNrqLV2pkLlhN1MhgND6KDHi i2o8Ix41X48jQ7LckOG+PGNv kHX9yYA5kO0oGwEyEsJ6YQmbK8 17XfRozCIeSybkr0znu2embYh9 VzEfXZPtnnRfjYkaCGD9f2Ba Ii87L05dWIvlLYTgMEHqJSGbSU ImgIvred2nqP7dKe2+PGNvbCB3 sLO4vM0cFnGvNiC7NCbeE536 KcVeqZVwUxmbL31fN4CerVO+PH AwDnb7YOZgrOvzZE3clAEdKCkq Yt3uIUT7RqGdKlTvGCjpR4Rh BHGulallsuynkNI0ECBbUXSexA 01Hn8raCsaIm0fWHRsEEB4PFJy iLVaR0RzxD9wYzUoEYCuIZWy V9NxfZKcFYmaR307SWwsAtW1EZ BcryIoX0FnNPJgnLwyHxA4v0R3 Vh8XaUbifDYdAQ6fCoDiIHn7 D7IgZjw4HZHstZfqUN6jyDYmCU obTl7qqAqkhCtpVB9aLWXnpxnn i349VwEha0caEUMhoSXaMAca FRT2U08dp8C5WHZvYZNwNXD4tU G2aT5qrPlfgxshdRJwdLxzelJy hGaoWCbyFDtwS936WERplSmd PjWVHoz4F6RiIty5KHBnqUqyCZ 5yaOLgOAirUa9nbRfrdLtxED7q VHSvowmpv443RsFii9cvHUPe lYWjFOxyBZH4A32ye0A7HTXiIK DaFFA5qCA1dB9ljPuzrkkxwAVo aDadsgMjpIqqCZhzDBlzD556 MYSuvBsxUr2SXlh5N2RpLje0ZF WekSkaZL8sxLWkKLraQc2deYtk kCcyEX1vPQTqrockw256AaXb h5wiWYBkwDLzWMkiJKH9P55ph6 T3DEQkEQRjUZC1hJN9tR6klPli bjogbGVmdDsgdmVydGljYWwt HGojQ260HAFsbNlmPiOzpZYtKd wvdGQ+BJ18tv13Y8HtRajvZia3 GZUbTTT2hIB7sP9jKDMjTLrq g8T5eTE7 (more content not included)... Normal [facility] IntraOperative Documentson 0 07-29-2022 IntraOperative Documents [id number]#1.00CD:127 [facility] Postoperative Documentson Postoperative Documents [id number]#1.00CD:127 [facility] Main OR Intraoperative Recor don 07-28-2022 Main OR Intraoperative Record IntraOp Document Type FT Summary Primary Physician: Talon Mcbride DO Finalized Date/Time: 07/28/22 08:06:27 Pt. Name: GERRY VICTORIA/Sex: 1955 Female Med Rec #: [id number] Physician: Talon Mcbride DO Financial #: [id number] Pt. Type: A Room/Bed: [facility] Admit/Disch: 07/26/22 05:37:39 - 07/26/22 14:50:00 Institution: [...] Entry 2 Entry 3 Case Attendee Deppen BEHAVIORAL MODIFICATION ASSISTANT, Jeana Mcbride DO, Talon Theodore PA-C, Candis Smith Role Performed BEHAVIORAL MODIFICATION ASSISTANT Surgeon - Primary PA/AUTOMOTIVE DETAILER Time In 07/26/22 08:22:00 07/26/22 08:22:00 07/26/22 08:22:00 Time Out 07/26/22 11:45:00 07/26/22 11:45:00 07/26/22 11:45:00 Procedure CHOLECYSTECTOMY CHOLECYSTECTOMY CHOLECYSTECTOMY LAPAROSCOPIC W/ LAPAROSCOPIC W/ LAPAROSCOPIC W/ CHOLANGI(.) CHOLANGI(.) CHOLANGI(.) Comments dr winston supervising Last Modified By: Karson RN, Umu Ty RN, Umu Ty RN, Umu Weber 07/26/22 11:54:21 07/26/22 11:54:21 07/26/22 11:54:21 Entry 4 Entry 5 Entry 6 Case Attendee Karson BACON, Belkys Andrdae Ii, Sarah M Role Performed Boat Loader - Primary Staff - Other Scrub - Primary Time In 07/26/22 08:22:00 07/26/22 08:22:00 07/26/22 08:22:00 Time Out 07/26/22 11:45:00 07/26/22 11:45:00 07/26/22 11:45:00 Procedure CHOLECYSTECTOMY CHOLECYSTECTOMY CHOLECYSTECTOMY LAPAROSCOPIC W/ LAPAROSCOPIC W/ LAPAROSCOPIC W/ CHOLANGI(.) CHOLANGI(.) CHOLANGI(.) Comments ORIENTATION JOIE WALLIS, BRANDY HEAD OF SALES AND MARKETING STUDENT, ALSO SCRUBBED IN Last Modified By: Karson RN, Umu Ty RN, Umu Ty RN, Umu Weber 07/26/22 11:54:21 07/26/22 11:54:21 07/26/22 11:54:21 Entry 7 Entry 8 Entry 9 Case Attendee Daphney RN, Ivet Newton RN, Jess Foley RT(R), Mamta Valles Role Performed Boat Loader - Relief Boat Loader - Relief Radar Mechanic Time In 07/26/22 09:08:00 07/26/22 09:08:00 07/26/22 [...] Comments: SANGITA CAMILO, ALSO IN ATTENDANCE. JORDI NEALbrick baker Protocols FT Pre-Care Text: Implements protective measures [...] Crosby RN, Alicia Marinelli Alfons Ii F, Scott, Sarah M Time Out Complete 07/26/22 08:50:00 Outcomes Met? Yes Last Modified By: Karson BACON, Umu Weber 07/26/22 08:57:48 Post-Care Text: The patient is [...] (more content not included)... Normal [facility] XR Cholangiogram in ORon XR Cholangiogram in [...] in mGy = 17.37 DAP = na [facility] Blood Bank Slipon 07-27-2022 Blood Bank Slip [id number]#1.00CD:127 [facility] Consent for Anesthesiaon Consent for Anesthesia [id number]#1.00CD:127 [facility] Discharge Instructionson Discharge Instructions [id number]#1.00CD:127 Normal [facility] IntraOperative Documentson 0 07-27-2022 IntraOperative Documents [id number]#1.00CD:127 Normal [facility] Preoperative Documentson Preoperative Documents [id number]#1.00CD:127 Normal [facility] ABO/Rhon 07-26-2022 ABO/Rh Positive Invalid Interpretation Code [facility] Comment on above: Performed By: #### 1 [id number] #### [facility] [address] [place] [address] ABO/Rh History Checkon 07-26 ABO/Rh History Check Verified Hx Blood Type Normal [facility] Comment on above: Performed By: #### 1 [id number] #### [facility] [address] [place] [id number] ABSCon 07-26-2022 ABSC Gel Interp Negative Normal [facility] Comment on above: Performed By: #### 1 [id number] #### [facility] [address] [place] [id number] BLOOD BANKOrdered By: Dell Taylor on 07-26-2022 ABO/Rh Interp Positive Invalid Interpretation Code [facility] BB Subsection ABSC Gel Interp Negative (07/26/22 6:23 AM) Normal [facility] BB Subsection Blood Bank ID#on 07-26-2022 BBID# [id number] Invalid Interpretation Code [facility] Comment on above: Performed By: #### 1 [id number] #### [facility] [address] [place] [address] Consent for Procedure/Surger yon 07-26-2022 Consent for Procedure/Surgery [id number]#[id number]:127 Normal [facility] Consent for Treatmenton Consent for Treatment [id number]#1.00CD:127 Normal [facility] Discharge Instructionson Discharge Instructions GERRY VICTORIA :1955 [...] Information Octavia Valadez Previously Scheduled Follow-Up Appointments Monday. 2022 11:00 AM EDT With: Where: [facility] 2022 1:00 PM EDT With: ELIJAH SNOWDEN, MARYCARMEN Enrique Where: [facility] Comment on above: Result Comment: Elec tronically Signed By: Mili BACON, Robina Whitaker\Date and Time Signed: 07/26/22 13:15 EDT H&P Updateon 07-26-2022 H&P Update [id number]:127 Normal [facility] HEMATOLOGYOrdered By: Lucero Ramirez on 07-26-2022 Hematocrit (Bld) [Volume fraction] 31.8 % Low 34.0 - 46.0 % [facility] HemeAutoSS Hemoglobin (Bld) [Mass/Vol] 10.1 g/dL Low 12.0 - 16.0 gm/dL [facility] HemeAutoSS Hct & Hgbon 07-26-2022 Hematocrit (Bld) [Volume fraction] 31.8 % Low 34.0-46.0 [facility] Comment on above: Performed By: #### 1 [id number] #### [facility] [address] [place] [address] Hemoglobin (Bld) [Mass/Vol] 10.1 g/dL Low 12.0-16.0 [facility] Comment on above: Performed By: #### 1 [id number] #### [facility] [address] [place] [address] Main OR PACU I Recordon Main OR PACU I Record PACU Phase I Docum ent Type FT Summary Primary Physician: Talon Mcbride DO Finalized Date/Time: 07/26/22 12:58:56 Pt. Name: GERRY VICTORIA/Sex: 1955 Female Med Rec #: [id number] Physician: Talon Mcbride DO Financial #: [id number] Pt. Type: A Room/Bed: [facility]/ Admit/Disch: 07/26/22 05:37:39 - Institution: Case [...] By: Violette Castillo I 07/26/22 12:58 Normal [facility] Main OR PACU II Recordon Main OR PACU II Record PACU Phase II Doc ument Type FT Summary Primary Physician: Talon Mcbride DO Finalized Date/Time: 07/26/22 15:08:15 Pt. Name: GERRY VICTORIA /Sex: 1955 Female Med Rec #: [id number] Physician: Talon Mcbride DO Financial #: [id number] Pt. Type: A Room/Bed: [facility]/ Admit/Disch: 07/26/22 05:37:39 - 07/26/22 14:50:00 Institution: [...] Garces RN 07/26/22 15:08 Normal [facility] Main OR Preoperative Recordo n 07-26-2022 Main OR Preoperative Record PreOp Document Type FT Summary Primary Physician: Talon Mcbride DO Finalized Date/Time: 07/26/22 09:32:38 Pt. Name: JULIENGERRY/Sex: 1955 Female Med Rec #: [id number] Physician: Talon Mcbride DO Financial #: [id number] Pt. Type: A Room/Bed: [place] [address] Admit/Disch: 07/26/22 05:37:39 - Institution: Case Times [...] Ty RN 07/26/22 09:32 Normal [facility] Monitor Recordon 07-26-2022 Monitor Record [id number]:127 Normal [facility] Monitor Record [id number]#[id number]:127 Normal [facility] Operative Reporton Operative Report Indication for Surge [...] Surgeon(s) Talon Mcbride DO (Surgeon - Primary) Show Girl Candis Theodore Anesthesia General Connie Winston DO (Customs Manager) Jeana Villanueva CRNA (Other) Estimated Blood Loss [...] defect was closed with interrupted 0 Vicryl gehqrc-lb-gjuzw sutures as well as the existing 0 Vicryl stay sutures. The skin incisions were closed with subcuticular 4-0 Monocryl suture. The skin incisions were then dressed with Dermabond. The prior percutaneous cholecystostomy site was covered with a 2 x 2 and tape. Patient was extubated and taken to PACU in stable condition. Normal [facility] Comment on above: Result Comment: Elec tronically [...] these instructions at home: Medicines ? Take mcms-mbq-bopipog and prescription medicines only as told by [...] cannot use soap and water, use hand branch library clerk. ? Change your bandage. ? Leave stitches [...] provider. Document Revised: 09/14/2021 Document Reviewed: 09/14/2021 [employer] Patient Education ? 2022 [employer] Cholelithiasis Cholelithiasis is a disease in which [...] (more content not included)... Normal [facility] Progress Note-Physicianon Progress Note-Physician Patient: GERRY VICTORIA [...] # 12 tab(s), Refills(s) 0, Pharmacy: [facility] [id number], 154, cm, 07/18/22 14:13:00 EDT, Height/Length Dosing, 74.6, kg, 07/18/22 14:13:00 EDT, Weight Dosing oxybutynin 10 mg ER Tab: 10 mg = 1 tab(s), Oral, Daily, # 90 tab(s), Refills(s) 3, Pharmacy: [facility] [id number], 154, cm, 11/30/21 13:27:00 EDT, Height/Length Dosing, [...] All Problems Acid reflux / SNOMED CT 9799315568 / Confirmed Anxiety / SNOMED CT 1086919216 / Confirmed Arthritis / SNOMED [place] 0472338 / Confirmed Atrial fibrillation / SNOMED CT 81275240 / Confirmed Chronic fatigue syndrome / SNOMED CT 16695512 / Confirmed Constipation / SNOMED CT 439312970 / Confirmed Degenerative disc disease, lumbar / SNOMED CT 46829518 / Confirmed Depre (more content not included)... Normal [facility] Comment on above: Result Comment: Elec tronically [...] # 90 tab(s), Refills(s) 3, Pharmacy: [facility] [id number], 154, cm, 11/30/21 13:27:00 EDT, Height/Length Dosing, [...] All Problems Acid reflux / SNOMED CT 7661984350 / Confirmed Anxiety / SNOMED CT 6565663040 / Confirmed Arthritis / SNOMED CT 6935998 / Confirmed Atrial fibrillation / SNOMED CT 45333160 / Confirmed Chronic fatigue syndrome / SNOMED CT 40215619 / Confirmed Constipation / SNOMED CT 958524072 / Confirmed Degenerative disc disease, lumbar / SNOMED CT 56841954 / Confirmed Depression / SNOMED CT 13161461 / Confirmed Fibromyalgia / SNOMED CT 579243328 / Confirmed Herpes / SNOMED CT 006579488 / Confirmed History of irregular heartbeat / SNOMED CT 9926344620 / Confirmed (more content not included)... Normal [facility] Comment on above: Result Comment: Elec tronically [...] # 90 tab(s), Refills(s) 3, Pharmacy: [facility] [id number], 154, cm, 11/30/21 13:27:00 EDT, Height/Length Dosing, [...] All Problems Acid reflux / SNOMED CT 2168085357 / Confirmed Anxiety / SNOMED CT 2162633153 / Confirmed Arthritis / SNOMED CT 6666206 / Confirmed Atrial fibrillation / SNOMED CT 89053699 / Confirmed Chronic fatigue syndrome / SNOMED CT 47546936 / Confirmed Constipation / SNOMED CT 307005929 / Confirmed Degenerative disc disease, lumbar / SNOMED CT 50954983 / Confirmed Depression / SNOMED CT 19957091 / Confirmed Fibromyalgia / SNOMED CT 066005232 / Confirmed Herpes / SNOMED CT 387269056 / Confirmed History of irregular heartbeat / SNOMED CT 0292421152 / Confirmed (more content not included)... Normal [facility] Comment on above: Result Comment: Elec tronically Signed By: Connie Winston DO.br\Date and Time Signed: 07/26/22 07:19 EDT Coding Summary.on 07-21-2022 Coding Summary. CD:[id number] Ww+PGh lYWQ+KN6ZWMDsJ28lyHYrlI3hC 0NMTElOSywgQVBQTElOSyIgbmF fZV6zfQTtRQPv IC8+DW7nJJYiBfdzoJUhg1Y8sS D3I09chr4bOQrxfWF2MBUtBpLo dgwvj8agwMa5YPmaYiowZfMv FEKakJ52XWJ1uY79Gf52cFYykE Qjo0foyGd0BkIxVJNcOJL2cFew OGrnd8RsMEQqY47wjOUxs5Y2 BYHstBxbpWJlFrXapAG5xJ9zAW pwuwnht4qwbtlkZxa3dj09cKYh m3N1bMK2R3WwwhT7MTEnvDGr JkzdkBYHjG2eernhi6hsqsarHv LbDZSqJAr9OSf5YTQhtDnbBcRq UY36DCC9RYGfkbEwI9JaWPJd tSzxKrY4w7B7Ee9OK9INQywhL3 VNTUFSWTwvdGQ+MV94we10K4Qh OwhmJma3UFRfIQA1cGK6tS0i KEXlKYmta2F7hUT6K9NhvxPmaj 5ar7omJSYmJXffO88fuGFgm9T4 HHYusXT9CLYxqPlaXkUtoH09 Oyc+MBKxmUhap8IgUqizj6yyt3 bsdIz7QzjtSZGqzzNwzNesYSP7 e7SdRz1oECNijLE9dYX3fK5k OdGdIbN5KMguA057VeDfiJMoXs idP52iS9HwyRE+FRRwWkx4EHTi uQgzCZ5jY4ShOCCnforqrLHv rJzyMP6nQMSwsvhlMIKqtC4uOA OsZ5d2TpSsNuO2VPlmY1DtHMAy egpsUz44gX1vNsGxZmW9FStb Z0BfniU0MYYmwKPiMBgaCBR1D1 9ga5A6TVTuHCWvYVT5yIV8jA9f bGlnbjogbGVmdDsgdmVydGlj AUglOVzbE462NONnnWwoUdSjVC luZyBEYXRlOiAgMDQvMjcvMjAy MzwvdGQ+VSNhIVR0dLzvRYWb hETiNZylPn3ikRshhUspNV6oSF EkgwzvGFWtyC1uWVAetQAjfDgn AJ2zOYVquudog053ZaTmXGC0 HWSwaQRmB4ZlzO7fKwExBQCrGW WkQ4OmaMDvXRzrP763EGitXvN4 UNEosqJrA5FpUTHslZoiHxR1 p3H0Hx2Zi6XjekpeC5SgnLSoMu BqXrjlDFo2A2AaWoaidIO+PC90 DLAgVP12UTo1HRQ6jPgiAEyz CNHxI7LjhY9wRiPeIGJyTQGuDw c+PHRhYmxlIHdpZHRoPScxMDAl MsBcnZmvGV7iQn4kEKOhBTJh jQitvTUbVhAbr1ncVIGxCAvaXN 8iuPnpS3KuuYF9MHLtj8y0Qs41 X34sQ5IftXE+SWXfsNS5eEI4 qR2nFwAsZkU3MJbsR984GzKmxB TaCmpij1lst0jivDy0RdJ1ORBc gcGslQbgHUU2z3DuDf20L57h IHdpZHRoPSIxNSUiIHZhbGlnbj 6kwF2yOt8+PMDuoZE2hOA8fK5o GtRuInN5NRjlF173RhPpyGIz Srilk0ecj0hqjAk6WoHqPXFdur HbrAvnQVG5b3RgDu03H0BwlPok b0ZgLcb3bk32iJOwi0C4rHE5 N7TsNVTqhzrzkBIsiAzxAQ0nOO RgsiwkZNRnhC0lJZMzY4c2OmWl LmL5OAapY3HvqeC2PIZxmOTz CUQrsEJFfE1ucjpqp0hcdkhuRd EjKHWyWVi9QDt4VLJjiOrcCiYq VNQ3CpG5NQI3zPPgvN0hsGfv hypxxV9fVfe+RAU0wKKhvQJFLP 1lOjwvdGQ+LBWrUGA2wJtuODpw SSIeeU9jRVZnS5q2WrLzTsN6 KThqT1SevpH6TJRvmHGgOFBauE BJlD3kfhesr7qjpdzsMhQmADKx NYv8NEw6YYZfbUweRqJlTOM2 QmO2FKQ6wKPnmT4bnSqdmelfkV 9wOyc+AetmzDsjHRJ6HLy4K9Xe Brx2RPYxzRrcQP3idWIbXUsz Op4lqUsliYapKZ8zEIJfvpwtx6 61QdQmt1nbELOdjXEaOIofMVN9 F26dd6Q2YYWsCYGtVSX2nGV4 vW5zyVvrighqdKMizGanyjHlzP skZZfpNGuvJ906PUIvsBoiLoTl UAj9K2AuJmm7TGNgnXylIB6v kEHpVVtaYy5dsCdlgSdkIS4sFS Llqzeic982HeXjr6brGSCzwLUr XUcbKWF1P93bo4U5XHRiPUFb JHS9vZH3tK2myNufxrdriYPmxR nnjdDkyAtuYXnyBNxzP400HYHo cDsxWnUpfYd5M4UwCfe9VPJn qSuuKY7mmZBgHOmyYc4eoIbofE vmVO2zUQPacegjy294XsVyt1ta RAKxiUZzMLzxHPB0D09iw3Q7 YFCoTBPkWBP0pSJ4mB3prHhjiz ogbGVmdDsgdmVydGljYWwtYWxp F353DRHemModUnDbhOpgwgJr GWyiZMm9W3NeOyiosFD+PC90YW UmBD01zNBqaIVrt4yeoOo2NfIs PTIdONF2eLbkPYqob6VrLREt F64clWTeb2M0SXYiyUnfyIDfAb ZolLG1sS0aSQoqsohai8bwgvdr Eqdyj5rpnm35rR33X69hUEch FQKlJDWtBNQbQWDepPcysj3hhE 9wIi8+QQPviHU4lLP0lI4tDVOz QyD2CUepX719JuDolSYmJmha x8fia6xjxXg5AvC3PMCezmSxvW haSPO8b4WpTy30T73jXXmuPBSi STOuSPGyEFWazMvapx6ppI7l Ii8+CLRtsVM6hOS3sQ8fPuSqXi A3POljT169WrFblRXhLqzbJ33q T4UjbKB+CRVqSwm7ANHtdCic FY1imIOnLGucNz9bEDD9OvFuRj DkIAimU6HkOFOkgkznypcouQF1 ICElZCYndE85Ib1gnOmqPGNo xJPEmA0afodqz3mwfmedBeDvFW LgWDq9PUi7UNRwuVdlCfCoAZJ6 MfM4PLU9gWRjzY2mbRfxzymp qW9rK5IiICSclvxdQt06cN0cZf OsAhI4PPhnZiy+UQbCII5XYKTK OIUWJeHUWT93QX54oBKye1M8 iLT7V1WwKFMswnzaonoevQQ3ZO PeQOZkkP67aCTyUMrfFx0dm3L9 r418XHNvKYWksZ81Vg9syCdi QHGbmUBOeN5syqbfb6lshthtKo NdNRTnMTs7UUc5XMMisDdhKtBu MQH5JwS8SWB6aQAhyE7daMyb pofeoB9eGjv+MFAnWdQkSZk2KC wvdGQ+ENTbDWB7kMrjYMylCJNk bG1pSFKfU4k0JnBfCkX0KRsf L6BgZRGnvccaWz58nT9kYiZmBu Q3RXoxS0LugfR4UEYljPDeNEhm ITI8S70aj6I0RYQvGCMfLDJ5 nQD2mI7dkWukhmlatWIagJmngy ZvzSxzKPrxGIsuK525NGZxhVjn XxG6ZWdlGYIgHU70VL25hTJu p8E1uHO3W5ByGJFubdjjhmpezO O8IHOoNJMhiH60dVXmPOdrQz5r g7F1u595AROjOMXinR40Wl7f rUwzQAZcxJWAmQ3tfoizo2whng zsTrLeXHRbLHh8ZFl8DUArdQmz NjBmSWJ9TsP9NJU0xNZajL1f hVwcqycdpK4gCcj+RmVtYWxlPC 50RG00rRXdh5X1hFG6Z4QbHMOg bmrnsraflUA2SLPlWWJxsG35 fNAqGZaqBa9gy4L5e804IVStFS WplS17Dd2xtSzrJFDlnAJBmX8t nudkm4hvklroEcNpEFQwSTg3 VLy4MIDkeJzmLwFdNWG7MyF9NS F2fRForU7amQdgjfnbhA0rKme+ H4M1kEO1hDWkxJzsjKP+PC90 td00Z0IxDndwFds5XWUgJBP5nE K1lS8eTYVhUGtel6B6rCD9O6Wt rnPqxo5xg7pyCBIuQExsZ86s iKYdr3W7KVRfqLE6XSZjfVnxEi YrrZ17Dwk+LYSxhYqbw9GvTsun b3rof3hppUq2LfZkTXBxowQv xQikFDK1c7GkPi08A09lQQkuSE XySZYbBQDnIXFpkVepit7ofP4u Ii8+BUUlpLQ9xCW9uQ6mTvLt PbS8LUceM911FgQpiQVwEaglo3 ult0dpkOt3WyIvIUZnrgAukTst RGC7g0SyWk51R2GsdKiiy4Ge Ikw3vf88nYZtx8R1jNF7Z5EsQQ JuqsofuDJikJivBA2qYFKnwsfc QAUafJ7bFNIhV3y0HaLsDpZ8 KIsqJ1JphfX6WPFmgMOmLEPzwM PHxT5yqheyu5miyobyWsHaTODw PEb4UJi6EDMeoQfeHaIeMRR7 BpO5MSN4cUFkjT9suOcvaitpeB 9wOyc+NBt4x2xhbBDlQT5xuRQ5 KY73PQ92iMJpu8Z5mLJ7Z2Zr ZIQmyrmijbefaKL3BGHwCQOwcM 69Nt2iiKipQo3rEYBeNMZ5VKCw nBOkF3JgmE7hIyChLWWkSQGr I6ExfEDmQHzwQ297OTofQqP9NF VazkIoH4NxWOHpyDusNvJ9x1H5 Hs1BIA90UY63ED34aOXww5E9 aIR0B7EwAIOawigbcchcoAN9XJ UzVNSezL34Yb9xyDwtUf4uPJAe UIR2OKGdfFGuS7YckQ4sDuKe TGFuWYDdD1HzgUInONwfW077LA eaQwO7SVDalhJnE1HzROZnaGwf JvO1w2W1Je2AXz29GM43WG78 kDKzf5H8hVN5P9WpFIMfcdhgwp kwsOW4KOYaFEXrqS32Dh5nlAgu Iu3nGEAsABM7PCUqtLJqY8Hr zI7oBdDiGUYnCAZsO5GjdPSuML lgY711EExpEnJ7JAExoyPqJ7Yz YMMtcGeeBrS2c3O6Wi3JKCim wvq4X7UgPhyfhTU+LQ73VEWxPV 28wRLvoLVuk7urfIc4LfUgTLZr LYV5cSraKUotm0FbQQTyD28a vHFvr2I1 (more content not included)... Normal [facility] BUNon 07-18-2022 Urea nitrogen [Mass/Vol] 10 mg/dL Normal 08-14 [facility] Comment on above: Performed By: #### 2 024855, 3832516, 5949219, 6675960, 6136013, 02361961 ####[facility] [address] [place] [address] CBC w/Indiceson 07-18-2022 Erythrocyte distribution width (RBC) [Ratio] 16.6 % High 10.9-14.2 [facility] Comment on above: Performed By: #### 2 241978, 5742502, 8018420, 1065340, 8081207, 02953701 ####[facility] [address] [place] [address] Hematocrit (Bld) [Volume fraction] 29.8 % Low 34.0-46.0 [facility] Comment on above: Performed By: #### 2 094938, 6741565, 4354257, 5706212, 2725663, 49812833 ####[address] [place] [address] Hemoglobin (Bld) [Mass/Vol] 9.5 g/dL Low 12.0-16.0 [facility] Comment on above: Performed By: #### 2 192658, 1730478, 1192803, 0447369, 3414344, 65373944 ####[address] [place] [address] MCH (RBC) [Entitic mass] 26.1 pg Low 27.0-34.0 [facility] Comment on above: Performed By: #### 2 587611, 3155652, 0744316, 6986887, 1505232, 89748538 ####[facility] [address] [place] [address] MCHC (RBC) [Mass/Vol] 31.9 g/dL Normal 31.4-36.0 [facility] Comment on above: Performed By: #### 2 921104, 1592552, 3804745, 6614098, 5314945, 42735322 ####[address] [place] [address] MCV (RBC) [Entitic vol] 81.9 fL Normal 80.0-100.0 [facility] Comment on above: Performed By: #### 2 072266, 3116399, 9473465, 4654103, 9563626, 03557832 ####[facility] [address] [place] [address] Platelet mean volume (Bld) [Entitic vol] 7.1 fL Normal 6.4-10.8 [facility] Comment on above: Performed By: #### 2 105076, 4908656, 0143478, 6949733, 5340279, 21569437 ####[address] [place] [address] Platelets (Bld) [#/Vol] 249.0 E9/L Normal 150.0-500. 0 [facility] Comment on above: Performed By: #### 2 044949, 7893082, 5008250, 3799793, 5246943, 03153824 ####[address] [address] RBC (Bld) [#/Vol] 3.6 E12/L Low 4.3-5.9 [facility] Comment on above: Performed By: #### 2 238301, 0792508, 9568654, 6619621, 8160303, 66755914 ####[address] [address] WBC corrected for nucl RBC Auto (Bld) [#/Vol] 5.0 E9/L Normal 4.0-11.0 [facility] Comment on above: Performed By: #### 2 571131, 9376235, 9086552, 3669721, 3690577, 08841455 ####[address] [place] [address] CHEMISTRYOrdered By: SYSTEM SYSTEM on 07-18-2022 Anion gap [Moles/Vol] 9 mmol/L Normal 6 - 16 mEq/L [facility]isol Chloride [Moles/Vol] 101 mmol/L Normal 101 - 1 11 mmol/L [facility] Remisol CO2 [Moles/Vol] 30 mmol/L Normal 21 - 31 mmol/L [facility] Remisol Creatinine [Mass/Vol] 0.8 mg/dL Normal 0.5 - 1.3 mg/dL [facility] Remisol GFR/1.73 sq M.predicted among blacks MDRD (S/P/Bld) [Vol rate/Area] mL/min/1.73 m2 Normal >=59mL/min /1.73 m2 [facility] Chem S GFR/1.73 sq M.predicted among non-blacks MDRD (S/P/Bld) [Vol rate/Area] mL/min/1.73 m2 Normal >=59mL/min /1.73 m2 [facility] Chem S Glucose [Mass/Vol] 93 mg/dL Normal 55 - 199 mg/dL [facility] Remisol Potassium [Moles/Vol] 3.7 mmol/L Normal 3.5 - 5.3 mmol/L [facility] Remisol Sodium [Moles/Vol] 136 mmol/L Normal 135 - 145 mmol/L [facility] Remisol Urea nitrogen [Mass/Vol] 10 mg/dL Normal 5 - 21 mg/dL [facility] Remisol Consent for Treatmenton 06-26 Consent for Treatment [id number]:127 Normal [facility] Creatinineon 07-18-2022 Creatinine [Mass/Vol] 0.8 mg/dL Normal 0.5-1.3 [facility] Comment on above: Performed By: #### 2 123773, 7801526, 8479273, 6360255, 8458449, 47855029 ####[facility] [address] [place] [address] Glucoseon 07-18-2022 Glucose [Mass/Vol] 93 mg/dL Normal 55-199 [facility] Comment on above: Performed By: #### 2 480084, 5360874, 9403346, 0314036, 3970841, 89148581 ####[facility] [address] [place] [address] HEMATOLOGYOrdered By: Helen Chowdhury on 07-18-2022 Erythrocyte distribution width (RBC) [Ratio] 16.6 % High 10.9 - 14.2 % [facility] Hematocrit (Bld) [Volume fraction] 29.8 % Low 34.0 - 46.0 % [facility] Hemoglobin (Bld) [Mass/Vol] 9.5 g/dL Low 12.0 - 16.0 gm/dL [facility] MCH (RBC) [Entitic mass] 26.1 pg Low 27.0 - 34.0 pg [facility]eAutoSS MCHC (RBC) [Mass/Vol] 31.9 g/dL Normal 31.4 - 36.0 gm/dL [facility] MCV (RBC) [Entitic vol] 81.9 fL Normal 80.0 - 100.0 fL [facility]eAutoSS Platelet mean volume (Bld) [Entitic vol] 7.1 fL Normal 6.4 - 10.8 fL [facility] Platelets (Bld) [#/Vol] 249.0 E9/L Normal 150.0 - 500.0 E9/L [facility] RBC (Bld) [#/Vol] 3.6 E12/L Low 4.3 - 5.9 E12/L [facility] WBC corrected for nucl RBC Auto (Bld) [#/Vol] 5.0 E9/L Normal 4.0 - 11.0 E9/L [facility] HemeAutoSS Lyteson 07-18-2022 Anion gap [Moles/Vol] 9 mmol/L Normal 6-16 [facility] Comment on above: Performed By: #### 2 595202, 7565997, 1497033, 7241279, 1806924, 99839827 ####[facility] [address] [place] [address] Chloride [Moles/Vol] 101 mmol/L Normal 101-111 [facility] Comment on above: Performed By: #### 2 852660, 4743858, 8718727, 5281260, 3237420, 13863613 ####[facility] [address] [place] [address] CO2 [Moles/Vol] 30 mmol/L Normal 21-31 [facility] Comment on above: Performed By: #### 2 458316, 3835288, 2068882, 7374653, 9219783, 22167058 ####[facility] [address] [place] [address] Potassium [Moles/Vol] 3.7 mmol/L Normal 3.5-5.3 [facility] Comment on above: Performed By: #### 2 597450, 3649728, 1158883, 8966518, 1555100, 66871513 ####[facility] [address] [place] [address] Sodium [Moles/Vol] 136 mmol/L Normal 135-145 [facility] Comment on above: Performed By: #### 2 704229, 0552859, 2825062, 7084313, 1107415, 62083402 ####[facility] [address] [place] [address] XR Chest 2 Viewson XR Chest 2 Views Exam Date/Time: 07/18/2022 [...] na DAP = na Normal [facility] eGFRon 07-18-2022 GFR/1.73 sq M.predicted among blacks MDRD (S/P/Bld) [Vol rate/Area] mL/min/{1.73_m2} Normal >=59 [facility] Comment on above: Order Comment: Order added by Discern Expert. Result Comment: eGFR is race adjusted. AA=. Performed By: #### 2 476651, 2138937, 2664944, 4296006, 0429475, 98695102 ####[facility] [address] [place] [address] GFR/1.73 sq M.predicted among non-blacks MDRD (S/P/Bld) [Vol rate/Area] mL/min/{1.73_m2} Normal >=59 [facility] Comment on above: Order Comment: Order added by Discern Expert. Result Comment: Machine Tool Builder heidi kidney disease could be indicated at eGFR's of less than 60 mL/min/1.73m2. Kidney failure is indicated at less than 15 mL/min/1.73m2. Performed By: #### 2 084854, 8034089, 1843274, 9417628, 6422984, 42246688 ####[facility] [address] [place] [address] Telephone Encounteron 2022 Assistant Art Director Authentication Interface Message Text Patient called regarding a rash near her drain that is right by her breast. Gaudencio is triaging Ms. Victoria, Gaudencio has suggest for patient to go to Urgent care and or call her primary care doctor. Appt is Monday07/13/2022. Normal [facility] Telephone Encounteron 2022 Assistant Art Director Authentication Interface Message Text Situation: Pt called states she is unsure how to flush gall bladder tube since it was changed yesterday. Background: 07/05/22 Procedure: Cholecystogram with catheter exchange Assessment: See triage Recommendation: Contacted IR medical receptionist assistant, Dr Hollis advised for pt to contact [...] No Protocols used: Post-Op Incision Symptoms and Myqzgieuy-Q-WV Normal [facility] Assistant Art Director Authentication Interface Message Text Sindy Ratliff Patient: Gerry Victoria [phone] Ms. Victoria has an appt w/ on 07/13/2022 at 2:45 pm. Pt complaining about severe pain last night, when she moved, it was an ache. She did not tell me where the pain was coming from, when I asked her. She stated that today she feels better, but she was concerned about the pain she experienced last night 07/05/2022. Normal [facility] RF Biliary ducts Views W con [...] successful exchange of drainage catheter. MACRO: None [facility] [employer] Radiology Study observation (narrative) [facility] Telephone Encounteron 2022 Assistant Art Director Authentication Interface Message Text Patient returned clinic call. Informed of message per notes below. Patient verbalized understanding and voiced no further questions. Normal [facility] Assistant Art Director Authentication Interface Message Text would like Ms. [...] the appt date and time. Normal [facility] Office Visit (Cardiology)on 06-30-2022 Follow-up visit [...] Weight Tips; Status:Complete - Retrospective Authorization; Done: [id number] Some eating tips that can help you [...] mg as directed otc Retrieve echo from [facility] [employer] Follow up in 3 months The provider reviewed the following test(s) and result(s) with the patient: ECG Chief Complaint GERRY VICTORIA is being seen for a consultation for atrial flutter and palpitations. F/u heart cath done in [facility]. History of Present Illness Patient is here for cardiovascular evaluation following recent hospitalization for what appeared to be acute cholecystitis. Records were retrieved and reviewed. Patient presented to [facility] with symptoms of abdominal pain and was diagnosed with what appeared to be gallbladder disease and peritonitis. She was transferred to [facility] where she underwent work-up. 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 She [...] The patient to keep her appointment with [facility] surgery for upcoming procedure of cholecystectomy and gallbladder drainage removal 5. I advised the patient she can use some qycf-wkm-iaiimie Claritin to address her what appeared to [...] 1 CA (more content not included)... Normal [facility] Tobacco Screening.on 023 Adult depression screening assessment No [facility] [employer] [facility] k 600 DO Work Phone: Fall risk assessment a) No falls within the last year [facility] k 600 DO Work Phone: Tobacco use status [facility] b) No [facility] [employer] 600 DO Work Phone: Telephone Encounteron 2022 Assistant Art Director Authentication Interface Message Text Pt called c/o sx of poor leg circulation,and Gaudencio spoke to her to triage the patient. Normal [facility] Addendum Noteon 06-18-2022 Assistant Art Director Authentication Interface Message Text Addended by: NIKITA HEIN on: 06/18/2022 03:47 PM Modules accepted: Orders, Level of Service Normal [facility] Telephone Encounteron 2022 Assistant Art Director Authentication Interface Message Text Sophy transferred phone call to me, when the patient and I started talk I realized it was the patient I had Sophy working on since Dr. Hein seen her in clinic on [facility]. Sophy said she spoke to patient yesterday, so I just told her what Sophy told me that Dr. Hein will handle the Rx to have the scan done out where she lives and that Sophy will get it to her in the mail by Monday Normal [facility] Telephone Encounteron 2022 Assistant Art Director Authentication Interface Message Text Sindy Morales, Patient: Gerry Victoria [phone] Ms. Victoria had a visit with Dr. Conley on Monday06/15/2022, seen by Dr. Hein in yesterday's clinic. Questions: Ultrasound order was placed for Ms. Victoria, do she have to come her to [facility] to have the ultrasound, or can she have the ultrasound done in [place]? (there is not a [facility] in [place]) Medication refill of Ropinirole 2mg 1-tab QD was not received by her pharmacy, can you call in the prescription to my pharmacy at [facility] ) [phone]?. I am waiting for Carmen, or and or Dr. Conley to respond. Sophy Knowles was told that Dr. Hein was out of town and that she will receive the prescription in the mail. I will call the patient to find out what hospitals she will be going to in [place] [phone] fax:[phone] Gaudencio spoke to her about the prescription and to contact her pharmacy about the ropinirole 2 mg to [facility]. Addendum: IR procedure, Gaudencio will follow-up with [facility] to see if they can do the IR procedure, we will submit or fax orders at that time. Normal [facility] CBC panel Auto (Bld)on 06-15 Erythrocyte [...] (RBC) [Ratio] 15.0 % High 11.5-14.5 [facility] Comment on above: Performed By: #### 8 [id number] #### NURSING GLUCOSE PROGRAM [address] [place] [address], [id number] Hematocrit (Bld) [Volume fraction] 26.4 % Low 36.0-46.0 [facility] Comment on above: Performed By: #### 8 2948 #### NURSING GLUCOSE PROGRAM [address] [place] [address], [id number] Hemoglobin (Bld) [Mass/Vol] 9.0 g/dL Low 12.0-15.0 [facility] Comment on above: Performed By: #### 8 2948 #### NURSING GLUCOSE PROGRAM [address] [place] [address], [address] MCH (RBC) [Entitic mass] 27.6 pg Normal 26.0-34.0 [facility] Comment on above: Performed By: #### 8 [id number] #### NURSING GLUCOSE PROGRAM [address] [place] [address], [address] MCHC (RBC) [Mass/Vol] 34.1 g/dL Normal 32.0-35.9 [facility] Comment on above: Performed By: #### 8 2948 #### NURSING GLUCOSE PROGRAM [address] [place] [address], [address] MCV (RBC) [Entitic vol] 81 fL Normal 80-100 [facility] Comment on above: Performed By: #### 8 2948 #### NURSING GLUCOSE PROGRAM [address] [place] [address], [address] Platelet mean volume (Bld) [Entitic vol] 7.8 fL Normal 7.5-11.2 [facility] Comment on above: Performed By: #### 8 2948 #### NURSING GLUCOSE PROGRAM [address] [place], [address] Platelets (Bld) [#/Vol] 262 10*3/uL Normal 150-400 [facility] Comment on above: Performed By: #### 8 2948 #### NURSING GLUCOSE PROGRAM [address] [place] [address], [address] RBC (Bld) [#/Vol] 3.26 10*6/uL Low 4.00-5.20 [facility] Comment on above: Performed By: #### 8 2948 #### NURSING GLUCOSE PROGRAM [address] [place], [address] WBC (Bld) [#/Vol] 6.2 10*3/uL Normal 4.5-11.5 [facility] Comment on above: Performed By: #### 8 2948 #### NURSING GLUCOSE PROGRAM [address] [place], [address] PROTHROMBIN TIME AND INRon 0 06-15-2022 INR Coag (PPP) [Relative time] 1.08 {INR} Normal 0.90-1.10 [facility] Comment on above: Performed By: #### 8 2948 #### NURSING GLUCOSE PROGRAM [address] [place], [address] PT Coag (PPP) [Time] 12.2 s Normal 9.7-12.9 [facility] Comment on above: Performed By: #### 8 2948 #### NURSING GLUCOSE PROGRAM [address] [place], [address] INR Coag (PPP) [Relative time] 1.08 {INR} 0.90 - 1.10 [facility] Interpretation and review of laboratory results Normal [facility] PT Coag (PPP) [Time] 12.2 s [facility] [employer] Telephone Encounteron 2022 Assistant Art Director Authentication Interface Message Text Situation: pt is [...] Not assessed Protocols used: Post-Op Symptoms and Pghumczts-D-BS, Breathing Qesklqhyjt-J-KC Normal [facility] BASIC METABOLIC PANELon 03-0 Anion gap [Moles/Vol] 15 mmol/L Normal 10-20 [facility] Comment on above: Performed By: #### C H8, HEPATIC #### [facility] [address] [place] [address], [id number] Calcium [Mass/Vol] 8.4 mg/dL Normal 8.4-10.4 [facility] Comment on above: Performed By: #### C H8, HEPATIC #### [facility] [address] [place], [place], Chloride [Moles/Vol] 100 mmol/L Normal 97-111 [facility] Comment on above: Performed By: #### C H8, HEPATIC #### [facility] [address] [place], [place], CO2 [Moles/Vol] 27 mmol/L Normal 21-30 [facility] Comment on above: Performed By: #### C H8, HEPATIC #### [facility] [address] [place], [place], Creatinine [Mass/Vol] 0.76 mg/dL Normal 0.50-1.10 [facility] Comment on above: Performed By: #### C H8, HEPATIC #### [facility] [address] [place], [place], ESTIMATED GFR (CKD-EPI) 85 mL/min/1.73sqm Normal >=60 The [facility] Comment on above: Result Comment: 2020 [...] Inclusion of Race in Diagnosing Kidney Disease. [place] Journal of Kidney Diseases 2021;79(2):268-88.e1. 2. N Engl J Med 1 Vol. 385 Issue 19 Pages [phone] Performed By: #### C H8, HEPATIC #### [facility] [address], [place], Glucose [Mass/Vol] 94 mg/dL Normal 80-116 [facility] Comment on above: Performed By: #### C H8, HEPATIC #### [facility] [address], [place], Potassium [Moles/Vol] 3.5 mmol/L Normal 3.3-5.3 [facility] Comment on above: Performed By: #### C H8, HEPATIC #### [facility] [address] [place] [address], Sodium [Moles/Vol] 138 mmol/L Normal 135-148 [facility] Comment on above: Performed By: #### C H8, HEPATIC #### [facility] [address] [place] [address], Urea nitrogen [Mass/Vol] 6 mg/dL Low 8-22 [facility] Comment on above: Performed By: #### C H8, HEPATIC #### [facility] [address] [place] [address], COMPLETE BLOOD COUNTon 05-25 Erythrocyte distribution width (RBC) [Ratio] 15.2 % High 11.5-14.5 [facility] Comment on above: Performed By: #### C H8, HEPATIC #### [facility] [address] [place] [address], Hematocrit (Bld) [Volume fraction] 34.5 % Low 36.0-46.0 [facility] Comment on above: Performed By: #### C H8, HEPATIC #### [facility] [address] [place] [address], Hemoglobin (Bld) [Mass/Vol] 12.0 g/dL Normal 12.0-15.0 [facility] Comment on above: Performed By: #### C H8, HEPATIC #### [facility] [address] [place] [address], MCH (RBC) [Entitic mass] 28.6 pg Normal 26.0-34.0 [facility] Comment on above: Performed By: #### C H8, HEPATIC #### [facility] [address], MCHC (RBC) [Mass/Vol] 34.8 g/dL Normal 32.0-35.9 [facility] Comment on above: Performed By: #### C H8, HEPATIC #### [facility] [address] [place] [address], MCV (RBC) [Entitic vol] 82 fL Normal 80-100 [facility] Comment on above: Performed By: #### C H8, HEPATIC #### [facility] [address], [place], Platelet mean volume (Bld) [Entitic vol] 7.7 fL Normal 7.5-11.2 [facility] Comment on above: Performed By: #### C H8, HEPATIC #### [facility] [address], [place], Platelets (Bld) [#/Vol] 348 10*3/uL Normal 150-400 [facility] Comment on above: Performed By: #### C H8, HEPATIC #### [facility] [address], [place], RBC (Bld) [#/Vol] 4.19 10*6/uL Normal 4.00-5.20 [facility] Comment on above: Performed By: #### C H8, HEPATIC #### [facility] [address], WBC (Bld) [#/Vol] 8.7 10*3/uL Normal 4.5-11.5 [facility] Comment on above: Performed By: #### C H8, HEPATIC #### [facility] [address], [place], Care Plan Noteon 05-25-2022 Assistant Art Director Authentication Interface Message Text Problem: Routine Care: [...] C H8, HEPATIC #### [facility] [address] [place] [address], Glucose [Mass/Vol] 92 mg/dL Normal 80-116 [facility] Comment on above: Performed By: #### 8 2948 #### NURSING GLUCOSE PROGRAM [address], [place], Glucose [Mass/Vol] 93 mg/dL Normal 80-116 [facility] Comment on above: Performed By: #### C H8, HEPATIC #### [facility] [address] [place] [address], MAGNESIUMon 05-25-2022 Magnesium [Mass/Vol] 2.0 mg/dL Normal 1.6-2.8 [facility] Comment on above: Performed By: #### C H8, HEPATIC #### [facility] [address] [place] [address], Progress Noteson 05-25-2022 Assistant Art Director Authentication Interface Message Text Pt is rec to dc home with no homegoing needs. Pt reportedly has sister who can provide PRN assistance. Medical team to please notify SW if any SW or DC concerns arise. Franky Lane MSSA,RECTIFIER OPERATOR Normal [facility] Assistant Art Director Authentication Interface Message Text Accuchecks not uploading into [employer] Translation- are as follows 2000- glucose 94 0000- glucose 93 0400- glucose 93 Normal [facility] Assistant Art Director Authentication Interface Message Text Pt emptied and flushed drain with RN supervision. No further questions at this time, will; reinforce in the AM. 0630 Pt flushed and emptied drain w/ RN supervision. No further questions at this time, written instructions for both provided to pt. Normal [facility] BASIC METABOLIC PANELon 04-28 Anion gap [Moles/Vol] 18 mmol/L Normal 10-20 [facility] Comment on above: Performed By: #### H STRP #### [facility] [address], [place], Calcium [Mass/Vol] 8.6 mg/dL Normal 8.4-10.4 [facility] Comment on above: Performed By: #### H STRP #### [facility] [address], [place], Chloride [Moles/Vol] 100 mmol/L Normal 97-111 [facility] Comment on above: Performed By: #### H STRP #### [facility] [address], CO2 [Moles/Vol] 24 mmol/L Normal 21-30 [facility] Comment on above: Performed By: #### H STRP #### S [facility] [address], [place], Creatinine [Mass/Vol] 0.66 mg/dL Normal 0.50-1.10 [facility] Comment on above: Performed By: #### H STRP #### [facility] [address], [place], ESTIMATED GFR (CKD-EPI) 95 mL/min/1.73sqm Normal >=60 [facility] Comment on above: Result Comment: 2020 [...] Inclusion of Race in Diagnosing Kidney Disease. [place] Journal of Kidney Diseases 2021;79(2):268-88.e1. 2. N Engl J Med 1 Vol. 385 Issue 19 Pages [phone] Performed By: #### H STRP #### [facility] [address], [place], Glucose [Mass/Vol] 88 mg/dL Normal 80-116 [facility] Comment on above: Performed By: #### H STRP #### S [facility] [address], [place], Potassium [Moles/Vol] 3.5 mmol/L Normal 3.3-5.3 [facility] Comment on above: Performed By: #### H STRP #### [facility] [address], [place], Sodium [Moles/Vol] 138 mmol/L Normal 135-148 [facility] Comment on above: Performed By: #### H STRP #### [facility] [address], [place], Urea nitrogen [Mass/Vol] 5 mg/dL Low 8-22 [facility] Comment on above: Performed By: #### H STRP #### [facility] [address], [place], COMPLETE BLOOD COUNTon 05-24 Erythrocyte distribution width (RBC) [Ratio] 15.1 % High 11.5-14.[address] [facility] Comment on above: Performed By: #### C BC ####[facility] [id number] [place], [place], Hematocrit (Bld) [Volume fraction] 35.5 % Low 36.0-46.[address] [facility] Comment on above: Performed By: #### C BC ####[facility] [id number] [place], [place], Hemoglobin (Bld) [Mass/Vol] 11.8 g/dL Low 12.0-15.[address] [facility] Comment on above: Performed By: #### C BC ####[facility] [id number] [place], [place], MCH (RBC) [Entitic mass] 27.2 pg Normal 26.0-34.[address] [facility] Comment on above: Performed By: #### C BC ####S PATHOLOGY [id number] [place], [place], MCHC (RBC) [Mass/Vol] 33.2 g/dL Normal 32.0-35.9 [facility] Comment on above: Performed By: #### C BC ####[facility] [id number] [place], [place], MCV (RBC) [Entitic vol] 82 fL Normal 80-100 [facility] Comment on above: Performed By: #### C BC ####S PATHOLOGY [id number] [place], [place], Platelet mean volume (Bld) [Entitic vol] 7.6 fL Normal 7.5-11.2 [facility] Comment on above: Performed By: #### C BC ####[facility] [id number] [place], [place], Platelets (Bld) [#/Vol] 375 10*3/uL Normal 150-400 [facility] Comment on above: Performed By: #### C BC ####[facility] [id number] [place], [place], RBC (Bld) [#/Vol] 4.32 10*6/uL Normal 4.00-5.20 [facility] Comment on above: Performed By: #### C BC ####[facility] [id number] [place], [place], WBC (Bld) [#/Vol] 9.0 10*3/uL Normal 4.5-11.5 [facility] Comment on above: Performed By: #### C BC ####[facility] [id number] [place], [place], Care Plan Noteon 05-24-2022 Assistant Art Director Authentication Interface Message Text Problem: Routine Care: [...] Performed By: #### 8 2948 ####NURSING GLUCOSE [id number] [place], [address] Glucose [Mass/Vol] 76 mg/dL Low 80-116 [facility] Comment on above: Performed By: #### H STRP #### [facility] [address] [place] [address], Glucose [Mass/Vol] 84 mg/dL Normal 80-116 [facility] Comment on above: Performed By: #### 8 2948 #### NURSING GLUCOSE PROGRAM [address] [place], [address] Glucose [Mass/Vol] 95 mg/dL Normal 80-116 [facility] Comment on above: Performed By: #### C H8, HEPATIC #### [facility] [address] [place] [address], Glucose [Mass/Vol] 93 mg/dL Normal 80-116 [facility] Comment on above: Performed By: #### C H8, HEPATIC #### [facility] [address] [place] [address], Glucose [Mass/Vol] 97 mg/dL Normal 80-116 [facility] Comment on above: Performed By: #### H STRP #### [facility] [address] [place] [address], MAGNESIUMon 05-24-2022 Magnesium [Mass/Vol] 1.9 mg/dL Normal 1.6-2.8 The [facility] Comment on above: Performed By: #### H [facility] #### S PATHOLOGY LABORATORY [address] [place] [address], [phone] Progress Noteson 05-24-2022 Assistant Art Director Authentication Interface Message Text [facility] DIVISION OF ACUTE CARE SURGERY ---- GENERAL INFORMATION --- EMERGENCY GENERAL SURGERY NOTE Patient Name: Gerry Victoria Admission Date: 05/16/2022 Patient seen and examined on 05/24/2022 -- INTERVAL HISTORY/EVENTS Background Narrative: Gerry Victoria is a 66 year old female with PMH of hypertension, RLS, GERD, and h/o paroxysmal SVT who [facility] with epigastric pain with nausea and vomiting. Patient describes onset of pain on prior day that has increased since then. Shortly after onset of pain, patient experienced nausea and persistent vomiting, now unable to tolerate PO intake. Denies fevers, chills. She presented to [facility] where EKG demonstrated 'hyperacute T waves' in multiple leads without evidence of STEMI. Troponin originally 139, then 381 on repeat. CTA was performed and did not reveal dissection or PE. CT did demonstrate acute inflammation of the gallbladder with a stone at the neck. A central line was placed for resuscitation purposes and the patient was transferred to [facility] for further evaluation. Prior to transfer, lab work without leukocytosis (10.7) and LFTs/Lipase without abnormality. ACS consulted upon arrival to [facility] for cholecystitis. She was admitted to the SDU for telemetry under EGS but transferred to [facility] on 05/20/22 Hospital Course/Procedures: 05/16/2022: Transferred from [facility] ED with cholecystitis, up-trending troponin, and unclear EKG findings. Up-trending leukocytosis, down-trending troponin by PM. Cardiology following. Zosyn started. 05/17/2022: rCT with worsening gallbladder inflammation /o free air or rupture. Percutaneous cholecystotomy tube placement with IR. 05/19/2022: Bilious emesis, NGT placed 05/20/2022: Transferred to [facility] 05/21/2022:To stop zosyn today day 06/2805/22/2022: YANN, ongoing bilious NGT output 05/23/2022: [facility] with mild non-obstructive diffuse coronary artery disease. NGT placed to gravity. Events in last 24 hours: NAEOn. [facility] completed yesterday with mild non-obstructive [...] Acute Cholecystitis Acute abdominal pain Type II AK Atypical takatsubo PMHx: GERD, HTN, HLD, spinal [...] course of IV Zosyn 05/16/22 - 05/21/2022. [facility] completed 05/23 showing no obstructive disease. Plan 1. Neurologic - Tylenol q4 PRN, oxycodone q4 PRN f (more content not included)... 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 05/23 1900- 0730: 2000- glucose 95 0000- glucose 97 0400- glucose 93 Normal [facility] BASIC METABOLIC PANELon - Anion gap [Moles/Vol] 12 mmol/L Normal 10-20 [facility] Comment on above: Performed By: #### H STRP #### S [facility] LABORATORY [address] [place] [address], Calcium [Mass/Vol] 8.4 mg/dL Normal 8.4-10.4 [facility] Comment on above: Performed By: #### H STRP #### S [facility] [address] [place] [address], Chloride [Moles/Vol] 100 mmol/L Normal 97-111 [facility] [facility] Comment on above: Performed By: #### H STRP #### S [facility]ORATORY [address] [place] [address], CO2 [Moles/Vol] 31 mmol/L High 21-30 [facility] [facility] Comment on above: Performed By: #### H STRP #### S [facility] LABORATORY [address] [place] [address], Creatinine [Mass/Vol] 0.65 mg/dL Normal 0.50-1.10 [facility] Comment on above: Performed By: #### H STRP #### S [facility]ORATORY [address] [place] [address], ESTIMATED GFR (CKD-EPI) 96 mL/min/1.73sqm Normal >=60 [facility] Comment on above: Result Comment: 2020 [...] Inclusion of Race in Diagnosing Kidney Disease. [place] Journal of Kidney Diseases 2021;79(2):268-88.e1. 2. N Engl J Med 2020 Vol. 385 Issue 19 Pages [phone] Performed By: #### H STRP #### S [facility] LABOR[facility]ORY [address], [place], Glucose [Mass/Vol] 92 mg/dL Normal 80-116 [facility] Comment on above: Performed By: #### H STRP #### S [facility]Y LABORATORY [address] [place] [address], Potassium [Moles/Vol] 3.5 mmol/L Normal 3.3-5.3 [facility] Comment on above: Performed By: #### H STRP #### S [facility]Y LABORATORY [address] [place] [address], Sodium [Moles/Vol] 139 mmol/L Normal 135-148 [facility] Comment on above: Performed By: #### H STRP #### S [facility] LABORATORY [address] [place] [address], Urea nitrogen [Mass/Vol] 4 mg/dL Low 8-22 [facility] Comment on above: Performed By: #### H STRP #### S [facility]Y LABORATORY [address] [place] [address], COMPLETE BLOOD COUNTon 05-23 Erythrocyte distribution width (RBC) [Ratio] 14.9 % High 11.5-14.5 [facility] Comment on above: Performed By: #### C BC ####S PATHOLOGY [id number] [place], [place], Hematocrit (Bld) [Volume fraction] 33.2 % Low 36.0-46.0 [facility] Comment on above: Performed By: #### C BC ####S PATHOLOGY [id number] [place], [place], Hemoglobin (Bld) [Mass/Vol] 11.1 g/dL Low 12.0-15.0 [facility] Comment on above: Performed By: #### C BC ####S PATHOLOGY [id number] [place], MCH (RBC) [Entitic mass] 27.4 pg Normal 26.0-34.0 [facility] Comment on above: Performed By: #### C BC ####[facility] PATH[facility]Y [id number] [place], MCHC (RBC) [Mass/Vol] 33.4 g/dL Normal 32.0-35.[address] [facility] Comment on above: Performed By: #### C BC ####[facility]OLOG[facility] [id number] [place], [place], MCV (RBC) [Entitic vol] 82 fL Normal 80-100 [facility] Comment on above: Performed By: #### C BC ####[facility] [id number] [place] [address], Platelet mean volume (Bld) [Entitic vol] 7.4 fL Low 7.5-11.[address] [facility] Comment on above: Performed By: #### C BC ####[facility] [id number] [place] [address], Platelets (Bld) [#/Vol] 313 10*3/uL Normal 150-400 [facility] Comment on above: Performed By: #### C BC ####[facility] [id number] [place], [place], RBC (Bld) [#/Vol] 4.04 10*6/uL Normal 4.00-5.20 [facility] Comment on above: Performed By: #### C BC ####[facility] PATHOLOGY [id number] [place] [address], WBC (Bld) [#/Vol] 7.1 10*3/uL Normal 4.5-11.5 [facility] Comment on above: Performed By: #### C BC ####[facility] PATHOLOG[facility] [id number] [place], [place], Care Plan Noteon 05-23-2022 Assistant Art Director Authentication Interface Message Text Problem: Routine Care: [...] demand and imbalance Outcome: Progressing Normal [facility] Consultson 05-23-2022 Assistant Art Director Authentication Interface Message Text PHYSICAL THERAPY Attempt at Tx Session this PM is unsuccessful as Patient is off floor in EP for Coronary angiograms w/ poss intervention Will follow up Tawny Peñaloza, PT, MPT (B) [phone] Normal [facility] Assistant Art Director Authentication Interface Message Text Initial Adult Inpatient [...] Glu BUN Cr Ca Mg PO4 05/23/22 0136 1.9 05/23/22135 139 3.5 100 31 12 92 4 0.65 8.4 05/22/22 0032 2.0 05/22/22 003 138 3.6 98 31 13 91 5 0.76 8.7 05/21/22 0124 1.9 05/21/22123 138 3.2 100 29 12 [...] none Hair/Nails/Skin: intact Eyes/Nose/Mouth: NGT Estimated needs: 8627-0259 kcal/d 25-30 kcal/kg 80-105 g pro/d 1-1.3 g pro/kg Assessment: 66 year old female with PMH of hypertension, RLS, GERD, and h/o paroxysmal SVT who [facility] with epigastric pain with nausea and vomiting. Patient describes onset of pain on prior day that has increased since then. Shortly after onset of pain, patient experienced nausea and persistent vomiting, now unable to tolerate PO intake. Denies fevers, chills. She presented to [facility] where EKG demonstrated 'hyperacute T waves' in multiple leads without evidence of STEMI. Troponin originally 139, then 381 on repeat. CTA was performed and did not reveal dissection or PE. CT did demonstrate acute inflammation of the gallbladder with a stone at the neck. A central line was placed for resuscitation purposes and the patient was transferred to [facility] for further evaluation. Prior to transfer, lab work without leukocytosis (10.7) and LFTs/Lipase without abnormality. ACS consulted upon arrival to [facility] for cholecystitis. She was admitted to the SDU for telemetry under EGS but transferred to [facility] on 05/20/22 Hospital Course/Procedures: 05/16/2022: Transferred from [facility] ED with cholecystitis, up-trending troponin, and unclear EKG findings. Up-trending leukocytosis, down-trending troponin by PM. Cardiology following. Zosyn started. 05/17/2022: rCT with worsening gallbladder inflammation /o free air or rupture. Percutaneous cholecystotomy tube placement with IR. 05/19/2022: Bilious emesis, NGT placed 05/20/2022: Transferred to [facility] 05/21/2022:To stop zosyn today day 4/ [...] follow Luis Roberts RD, LD Personal Pager [phone] Tram Operator Pager: [phone] Normal [facility] Assistant Art Director Authentication Interface Message Text Diet Check Out Clerk Nutrition Screening Reason for visit: 7 to [...] Will continue to follow, May Sanchez, Diet Check Out Clerk Pager [phone] Normal [facility] GLUCOSE, FINGERSTICK-IN OFFI CEon 05-23-2022 Glucose [Mass/Vol] 95 mg/dL Normal 80-116 [facility] Comment on above: Performed By: #### H STRP #### [facility] [address] [place] [address], [phone] Glucose [Mass/Vol] 102 mg/dL Normal 80-116 [facility] Comment on above: Performed By: #### C H8, HEPATIC #### [facility] [address] [place] [address], [phone] Glucose [Mass/Vol] 105 mg/dL Normal 80-116 [facility] Comment on above: Performed By: #### 8 2948 #### NURSING GLUCOSE PROGRAM [address] [place] [address], [id number] Glucose [Mass/Vol] 89 mg/dL Normal 80-116 [facility] Comment on above: Performed By: #### H STRP #### [facility] [address] [place] [address], [phone] Glucose [Mass/Vol] 92 mg/dL Normal 80-116 [facility] Comment on above: Performed By: #### 8 2948 #### NURSING GLUCOSE PROGRAM [address] [place] [address], [id number] MAGNESIUMon 05-23-2022 Magnesium [Mass/Vol] 1.9 mg/dL Normal 1.6-2.8 [facility] Comment on above: Performed By: #### H STRP #### [facility] [address] [place] [address], Procedureson 05-23-2022 Assistant Art Director Authentication Interface Message Text Invasive Cardiology Report Demographics Patient name JULIEN GARRETT Height 155cm Patient # [id number] Weight 79.8kg BSA 1.79m2 Date of 1955 [...] KIT CARDIAC CATH PACK CA/3, Room Charge HOT OILER, Merit InQwire .035 x 150cm 3mmJ, Glidesheath Slender 6Fr., 6F Maysel Radial 4.0 110cm, Omnipaque 350 100cc and TR Band. Contrast material: 50 ml Omnipaque 350. Fluoroscopy time: PCI: 2:06 minutes. Total: 2:06 minutes. IABP: No IABP Procedure Description In a sterile fashion, after infiltration with 2% lidocaine, a 6 Gambian arterial sheath was placed through a right radial artery puncture. A 6 Gambian Maysel 4.0 radial catheter was inserted and passed retrograde into the ascending aorta and left ventricle where pressures were recorded. After pressure measurements were recorded, the left and right coronary arteries were selectively opacified and Coronary angiograms were performed in multiple projections using a 6 Gambian Maysel 4.0 radial catheter. At the end of the procedure, right radial arterial sheath was removed and hemostasis was obtained using a TR band. Moderate sedation provided by the attending physician performing the procedure. The moderate sedation intraservice time was 12 minutes. Normal [facility] Progress Noteson 05-23-2022 Assistant Art Director Authentication Interface Message Text LHC showed no obstructive coronary artery disease. Medical management with aspirin 81 mg daily, losartan 25 mg daily and metoprolol XL 12.5 mg with dose adjustment as tolerated. She will need outpatient follow up with cardiology Cards team signing off. Please feel free to contact in case of any qs. Normal [facility] Assistant Art Director Authentication Interface Message Text PT recs anticipate pt to be appropriate for home-going. Pt reportedly has sister who can provide PRN assistance. Medical team to please notify SW if any SW or DC concerns arise. Franky Lane MSSA,RECTIFIER OPERATOR Normal [facility] Assistant Art Director Authentication Interface Message Text [employer] DIVISION OF ACUTE CARE SURGERY ---- GENERAL INFORMATION --- EMERGENCY GENERAL SURGERY NOTE Patient Name: Gerry Victoria Admission Date: 05/16/2022 Patient seen and examined on 05/23/2022 -- INTERVAL HISTORY/EVENTS Background Narrative: Gerry Victoria is a 66 year old female with PMH of hypertension, RLS, GERD, and h/o paroxysmal SVT who presented to [facility] with epigastric pain with nausea and vomiting. Patient describes onset of pain on prior day that has increased since then. Shortly after onset of pain, patient experienced nausea and persistent vomiting, now unable to tolerate PO intake. Denies fevers, chills. She presented to [facility] where EKG demonstrated 'hyperacute T waves' in multiple leads without evidence of STEMI. Troponin originally 139, then 381 on repeat. CTA was performed and did not reveal dissection or PE. CT did demonstrate acute inflammation of the gallbladder with a stone at the neck. A central line was placed for resuscitation purposes and the patient was transferred to [facility] for further evaluation. Prior to transfer, lab work without leukocytosis (10.7) and LFTs/Lipase without abnormality. ACS consulted upon arrival to [facility] for cholecystitis. She was admitted to the SDU for telemetry under EGS but transferred to [facility] on 05/20/22 Hospital Course/Procedures: 05/16/2022: Transferred from [facility] ED with cholecystitis, up-trending troponin, and unclear EKG findings. Up-trending leukocytosis, down-trending troponin by PM. Cardiology following. Zosyn started. 05/17/2022: rCT with worsening gallbladder inflammation /o free air or rupture. Percutaneous cholecystotomy tube placement with IR. 05/19/2022: Bilious emesis, NGT placed 05/20/2022: Transferred to [facility] 05/21/2022:To stop zosyn today day 4/4 [...] Seen resting in bed in SICU in [facility]- I J line in place -Neurologic [...] Acute Cholecystitis Acute abdominal pain Type II AK Atypical takatsubo PMHx: GERD, HTN, HLD, spinal [...] appropr (more content not included)... Normal [facility] TYPE AND SCREENon 05-23-2022 ABO and Rh group Nom (Bld) Blood group A Rh(D) positive Normal [facility] Comment on above: Performed By: #### H STRP #### [facility] [address] [place] [address], ABSC INT Negative Normal [facility] Comment on above: Performed By: #### H STRP #### [facility] [address] [place] [address], BASIC METABOLIC PANELon 04-28 Anion gap [Moles/Vol] 13 mmol/L Normal 10-20 [facility] Comment on above: Performed By: #### 8 2948 #### [facility] [address] [place] [address], [address] Calcium [Mass/Vol] 8.7 mg/dL Normal 8.4-10.4 [facility] Comment on above: Performed By: #### 8 2948 #### [facility]URSING GLUCOSE PROGRAM [address] [place] [address], [address] Chloride [Moles/Vol] 98 mmol/L Normal 97-111 [facility] Comment on above: Performed By: #### 8 2948 #### NURSING GLUCOSE PROGRAM [address] [place], [address] CO2 [Moles/Vol] 31 mmol/L High 21-30 [facility] Comment on above: Performed By: #### 8 2948 #### NURSING GLUCOSE PROGRAM [address] [place], [address] Creatinine [Mass/Vol] 0.76 mg/dL Normal 0.50-1.10 [facility] Comment on above: Performed By: #### 8 2948 #### NURSING GLUCOSE PROGRAM [address] [place], [address] ESTIMATED GFR (CKD-EPI) 85 mL/min/1.73sqm Normal >=60 [...] Inclusion of Race in Diagnosing Kidney Disease. [place] Journal of Kidney Diseases 2021;79(2):268-88.e1. 2. N Engl J Med 1 Vol. 385 Issue 19 Pages 2271-9043 Performed By: #### 8 2948 #### NURSING GLUCOSE PROGRAM [address] [place], [address] Glucose [Mass/Vol] 91 mg/dL Normal 80-116 [facility] Comment on above: Performed By: #### 8 2948 #### NURSING GLUCOSE PROGRAM [address] [place], [address] Potassium [Moles/Vol] 3.6 mmol/L Normal 3.3-5.3 [facility] Comment on above: Performed By: #### 8 2948 #### NURSING GLUCOSE PROGRAM [address] [place], [address] Sodium [Moles/Vol] 138 mmol/L Normal 135-148 [facility] Comment on above: Performed By: #### 8 2948 #### NURSING GLUCOSE PROGRAM [address] [place], [address] Urea nitrogen [Mass/Vol] 5 mg/dL Low 8-22 [facility] Comment on above: Performed By: #### 8 2948 #### NURSING GLUCOSE PROGRAM [address] [place], [address] COMPLETE BLOOD COUNTon 05-22 Erythrocyte distribution width (RBC) [Ratio] 15.1 % High 11.5-14.5 [facility] Comment on above: Performed By: #### C BC ####[facility] [id number] [place] [address], Hematocrit (Bld) [Volume fraction] 34.3 % Low 36.0-46.0 [facility] Comment on above: Performed By: #### C BC ####[facility] [id number] [place] [address], Hemoglobin (Bld) [Mass/Vol] 11.4 g/dL Low 12.0-15.0 The [facility] Comment on above: Performed By: #### C BC ####[facility] [id number] [place] [address], MCH (RBC) [Entitic mass] 27.4 pg Normal 26.0-34.0 The [facility] Comment on above: Performed By: #### C BC ####[facility] [id number] [place] [address], MCHC (RBC) [Mass/Vol] 33.4 g/dL Normal 32.0-35.9 [facility] Comment on above: Performed By: #### C BC ####[facility] [id number] [place] [address], MCV (RBC) [Entitic vol] 82 fL Normal 80-100 The [facility] Comment on above: Performed By: #### C BC ####[facility] [id number] [place] [address], Platelet mean volume (Bld) [Entitic vol] 7.6 fL Normal 7.5-11.[address] [facility] Comment on above: Performed By: #### C BC ####[facility] [id number] [place] [address], [place], Platelets (Bld) [#/Vol] 322 10*3/uL Normal 150-400 [facility] Comment on above: Performed By: #### C BC ####S PATHOLOGY [id number] [place], [place], RBC (Bld) [#/Vol] 4.17 10*6/uL Normal 4.00-5.20 [facility] Comment on above: Performed By: #### C BC ####[facility] [id number] [place], [place], WBC (Bld) [#/Vol] 7.0 10*3/uL Normal 4.5-11.5 [facility] Comment on above: Performed By: #### C BC ####S PATHOLOGY [id number] [place], [place], Care Plan Noteon 05-22-2022 Assistant Art Director Authentication Interface Message Text Problem: Routine Care: [...] demand and imbalance Outcome: Progressing Normal [facility] GLUCOSE, FINGERSTICK-IN OFFI CEon 05-22-2022 Glucose [Mass/Vol] 78 mg/dL Low 80-116 [facility] Comment on above: Performed By: #### 8 2948 #### NURSING GLUCOSE PROGRAM [address] [place], [address] Glucose [Mass/Vol] 99 mg/dL Normal 80-116 [facility] Comment on above: Performed By: #### 8 2948 #### NURSING GLUCOSE PROGRAM [address] [place], [address] Glucose [Mass/Vol] 134 mg/dL High 80-116 [facility] Comment on above: Performed By: #### 8 2948 #### NURSING GLUCOSE PROGRAM [address] [place], [address] Glucose [Mass/Vol] 111 mg/dL Normal 80-116 [facility] Comment on above: Performed By: #### Reid G, CH8 #### [facility] [address] [place] [address], Glucose [Mass/Vol] 103 mg/dL Normal 80-116 [facility] Comment on above: Performed By: #### C H8, HEPATIC #### [facility] [address] [place], [place], Glucose [Mass/Vol] 112 mg/dL Normal 80-116 [facility] Comment on above: Performed By: #### C H8, HEPATIC #### [facility] [address] [place] [address], MAGNESIUMon 05-22-2022 Magnesium [Mass/Vol] 2.0 mg/dL Normal 1.6-2.8 [facility] Comment on above: Performed By: #### 8 2948 #### NURSING GLUCOSE PROGRAM [address] [place], [address] Progress Noteson 05-22-2022 Assistant Art Director Authentication Interface Message Text [facility] DIVISION OF ACUTE CARE SURGERY ---- GENERAL INFORMATION --- EMERGENCY GENERAL SURGERY NOTE Patient Name: Gerry Victoria Admission Date: 05/16/2022 Patient seen and examined on 05/22/2022 -- INTERVAL HISTORY/EVENTS Background Narrative: Gerry Victoria is a 66 year old female with PMH of hypertension, RLS, GERD, and h/o paroxysmal SVT who presented to [facility] with epigastric pain with nausea and vomiting. Patient describes onset of pain on prior day that has increased since then. Shortly after onset of pain, patient experienced nausea and persistent vomiting, now unable to tolerate PO intake. Denies fevers, chills. She presented to [facility] where EKG demonstrated 'hyperacute T waves' in multiple leads without evidence of STEMI. Troponin originally 139, then 381 on repeat. CTA was performed and did not reveal dissection or PE. CT did demonstrate acute inflammation of the gallbladder with a stone at the neck. A central line was placed for resuscitation purposes and the patient was transferred to [facility] for further evaluation. Prior to transfer, lab work without leukocytosis (10.7) and LFTs/Lipase without abnormality. ACS consulted upon arrival to [facility] for cholecystitis. She was admitted to the SDU for telemetry under EGS but transferred to [facility] on 05/20/22 Hospital Course/Procedures: 05/16/2022: Transferred from [facility] ED with cholecystitis, up-trending troponin, and unclear EKG findings. Up-trending leukocytosis, down-trending troponin by PM. Cardiology following. Zosyn started. 05/17/2022: rCT with worsening gallbladder inflammation /o free air or rupture. Percutaneous cholecystotomy tube placement with IR. 05/19/2022: Bilious emesis, NGT placed 05/20/2022: Transferred to [facility] 05/21/2022:To stop zosyn today day 4/4 [...] Seen resting in bed in SICU in [facility]- I J line in place -Neurologic [...] Acute Cholecystitis Acute abdominal pain Type II AK Atypical takatsubo PMHx: GERD, HTN, HLD, spinal [...] P (more content not included)... Normal [facility] Assistant Art Director Authentication Interface Message Text 05/22/2022 4:04 PM Referring Attending: Dr Jocelyne Victoria [phone] Planned Procedure: Coronary angiograms w/ poss intervention Procedure Indication: Suspected CAD CV Risk Factors: Hypertension: Yes History of Present Illness: 66 year old female with history of hypertension, recent diagnosis of type II AK, atypical takotsubo, acute cholecystitis s/p percutaneous cholecystostomy drain placement is referred for [facility] for CAD risk stratification and [...] 100 29 12 107 4 0.65 8.1 05/20/227 137 3.8 100 30 11 105 5 0.71 7.6 05/19/22 0355 139 3.5 102 31 10 120 8 0.74 7.7 05/18/228 136 3.9 101 27 12 77 [...] Hemodyn (more content not included)... Normal [facility] BASIC METABOLIC PANELon 02- Anion gap [Moles/Vol] 12 mmol/L Normal 10-20 [facility] Comment on above: Performed By: #### 8 2948 #### NURSING GLUCOSE PROGRAM [address] [place], [address] Calcium [Mass/Vol] 8.1 mg/dL Low 8.4-10.4 [facility] Comment on above: Performed By: #### 8 2948 #### NURSING GLUCOSE PROGRAM [address] [place], [address] Chloride [Moles/Vol] 100 mmol/L Normal 97-111 [facility] Comment on above: Performed By: #### 8 2948 #### NURSING GLUCOSE PROGRAM [address] [place], [address] CO2 [Moles/Vol] 29 mmol/L Normal 21-30 [facility] Comment on above: Performed By: #### 8 2948 #### NURSING GLUCOSE PROGRAM [address] [place], [address] Creatinine [Mass/Vol] 0.65 mg/dL Normal 0.50-1.10 [facility] Comment on above: Performed By: #### 8 2948 #### NURSING GLUCOSE PROGRAM [address] [place], [address] ESTIMATED GFR (CKD-EPI) 96 mL/min/1.73sqm Normal >=60 [facility] Comment on above: Result Comment: 2020 [...] Inclusion of Race in Diagnosing Kidney Disease. [place] Journal of Kidney Diseases 2021;79(2):268-88.e1. 2. N Engl J Med 1 Vol. 385 Issue 19 Pages 0701-8824 Performed By: #### 8 2948 #### NURSING GLUCOSE PROGRAM [address] [place], [address] Glucose [Mass/Vol] 107 mg/dL Normal 80-116 [facility] Comment on above: Performed By: #### 8 2948 #### NURSING GLUCOSE PROGRAM [address] [place], [address] Potassium [Moles/Vol] 3.2 mmol/L Low 3.3-5.3 [facility] Comment on above: Performed By: #### 8 2948 #### NURSING GLUCOSE PROGRAM [address] [place], [address] Sodium [Moles/Vol] 138 mmol/L Normal 135-148 [facility] Comment on above: Performed By: #### 8 2948 #### NURSING GLUCOSE PROGRAM [address] [place], [address] Urea nitrogen [Mass/Vol] 4 mg/dL Low 8-22 [facility] Comment on above: Performed By: #### 8 2948 #### NURSING GLUCOSE PROGRAM [address] [place], [address] COMPLETE BLOOD COUNTon 05-21 Erythrocyte distribution width (RBC) [Ratio] 15.2 % High 11.5-14.5 [facility] Comment on above: Performed By: #### 8 2948 #### NURSING GLUCOSE PROGRAM [address] [place], [address] Hematocrit (Bld) [Volume fraction] 30.1 % Low 36.0-46.0 [facility] Comment on above: Performed By: #### 8 2948 #### NURSING GLUCOSE PROGRAM [address] [place], [address] Hemoglobin (Bld) [Mass/Vol] 10.1 g/dL Low 12.0-15.0 [facility] Comment on above: Performed By: #### 8 2948 #### NURSING GLUCOSE PROGRAM [address] [place], [address] MCH (RBC) [Entitic mass] 27.5 pg Normal 26.0-34.0 [facility] Comment on above: Performed By: #### 8 2948 #### NURSING GLUCOSE PROGRAM [address] [place], [address] MCHC (RBC) [Mass/Vol] 33.4 g/dL Normal 32.0-35.9 [facility] Comment on above: Performed By: #### 8 2948 #### NURSING GLUCOSE PROGRAM [address] [place], [address] MCV (RBC) [Entitic vol] 82 fL Normal 80-100 [facility] Comment on above: Performed By: #### 8 2948 #### NURSING GLUCOSE PROGRAM [address] [place], [address] Platelet mean volume (Bld) [Entitic vol] 7.5 fL Normal 7.5-11.2 [facility] Comment on above: Performed By: #### 8 2948 #### NURSING GLUCOSE PROGRAM [address] [place], [address] Platelets (Bld) [#/Vol] 241 10*3/uL Normal 150-400 [facility] Comment on above: Performed By: #### 8 2948 #### NURSING GLUCOSE PROGRAM [address] [place], [address] RBC (Bld) [#/Vol] 3.67 10*6/uL Low 4.00-5.20 [facility] Comment on above: Performed By: #### 8 2948 #### NURSING GLUCOSE PROGRAM [address] [place], [address] WBC (Bld) [#/Vol] 5.0 10*3/uL Normal 4.5-11.5 [facility] Comment on above: Performed By: #### 8 2948 #### NURSING GLUCOSE PROGRAM [address] [place], [address] Care Plan Noteon 05-21-2022 Assistant Art Director Authentication Interface Message Text Problem: Routine Care: [...] demand and imbalance Outcome: Progressing Normal [facility] Consultson 05-21-2022 Assistant Art Director Authentication Interface Message Text Physical Therapy Attempted to see pt for treatment at 9:24, however, before this pt finished introducing herself pt states I just got back to sleep . Pt keeps her eyes closed and requests more time to sleep. Will continue to follow pt per POC. Geovanna Villagomez, PT, DPT Normal [facility] GLUCOSE, FINGERSTICK-IN OFFI CEon 05-21-2022 Glucose [Mass/Vol] 111 mg/dL Normal 80-116 [facility] Comment on above: Performed By: #### C H8, HEPATIC #### [facility] [address] [place] [address], Glucose [Mass/Vol] 101 mg/dL Normal 80-116 [facility] Comment on above: Performed By: #### H STRP #### [facility] [address] [place], [place], Glucose [Mass/Vol] 90 mg/dL Normal 80-116 [facility] Comment on above: Performed By: #### Reid G, CH8 #### [facility] [address] [place] [address], Glucose [Mass/Vol] 77 mg/dL Low 80-116 [facility] Comment on above: Performed By: #### 8 2948 #### NURSING GLUCOSE PROGRAM [address] [place], [address] Glucose [Mass/Vol] 91 mg/dL Normal 80-116 [facility] Comment on above: Performed By: #### T S #### [facility] [address] [place], [address] MAGNESIUMon 05-21-2022 Magnesium [Mass/Vol] 1.9 mg/dL Normal 1.6-2.[address] [facility] Comment on above: Performed By: #### 8 2948 #### NURSING GLUCOSE PROGRAM [address] [place], [address] Progress Noteson 05-21-2022 Assistant Art Director Authentication Interface Message Text [facility] OF ACUTE CARE SURGERY ---- GENERAL INFORMATION --- EMERGENCY GENERAL SURGERY NOTE Patient Name: Gerry Victoria Admission Date: 05/16/2022 Patient seen and examined on 05/21/2022 -- INTERVAL HISTORY/EVENTS Background Narrative: Gerry Victoria is a 66 year old female with PMH of hypertension, RLS, GERD, and h/o paroxysmal SVT who [facility] with epigastric pain with nausea and vomiting. Patient describes onset of pain on prior day that has increased since then. Shortly after onset of pain, patient experienced nausea and persistent vomiting, now unable to tolerate PO intake. Denies fevers, chills. She presented to [facility] where EKG demonstrated 'hyperacute T waves' in multiple leads without evidence of STEMI. Troponin originally 139, then 381 on repeat. CTA was performed and did not reveal dissection or PE. CT did demonstrate acute inflammation of the gallbladder with a stone at the neck. A central line was placed for resuscitation purposes and the patient was transferred to [facility] for further evaluation. Prior to transfer, lab work without leukocytosis (10.7) and LFTs/Lipase without abnormality. ACS consulted upon arrival to [facility] for cholecystitis. She was admitted to the SDU for telemetry under EGS but transferred to [facility] on 05/20/22 Hospital Course/Procedures: 05/16/2022: Transferred from [facility] ED with cholecystitis, up-trending troponin, and unclear EKG findings. Up-trending leukocytosis, down-trending troponin by PM. Cardiology following. Zosyn started. 05/17/2022: rCT with worsening gallbladder inflammation /o free air or rupture. Percutaneous cholecystotomy tube placement with IR. 05/19/2022: Bilious emesis, NGT placed 05/20/2022: Transferred to [facility] 05/21/2022:To stop zosyn today day 06/28 [...] Seen resting in bed in SICU in [facility]- I J line in place -Neurologic [...] Acute Cholecystitis Acute abdominal pain Type II AK Atypical takatsubo PMHx: GERD, HTN, HLD, spinal [...] FXA-LMW HEPARIN ASSAY 0.25 IU/mL Normal [facility] Comment on above: Order Comment: The r ecommended therapeutic range for treatment of thrombosis with Low Molecular Weight Heparin is 0.5 - 1.0 IU/mLThe recommended range for VTE prophylaxis with Low Molecular Weight Heparin is 0.2 - 0.4 IU/mL. Performed By: #### 8 2948 #### NURSING GLUCOSE PROGRAM [address] [place] [address], [address] BASIC METABOLIC PANELon 04-28 Anion gap [Moles/Vol] 11 mmol/L Normal 10-20 [facility] Comment on above: Performed By: #### Reid Grullon, CH8 #### S PATHOLOGY LABORATORY [address] [place] [address], Calcium [Mass/Vol] 7.6 mg/dL Low 8.4-10.4 [facility] Comment on above: Performed By: #### Reid Grullon, CH8 #### S [facility] LABORATORY [address] [place] [address], Chloride [Moles/Vol] 100 mmol/L Normal 97-111 [facility] Comment on above: Performed By: #### Reid Grullon, CH8 #### [facility] LAB[facility]ATORY [address] [place] [address], CO2 [Moles/Vol] 30 mmol/L Normal 21-30 [facility] Comment on above: Performed By: #### Reid Grullon, CH8 #### S [facility] LABORATORY [address] [place] [address], Creatinine [Mass/Vol] 0.71 mg/dL Normal 0.50-1.10 [facility] Comment on above: Performed By: #### Reid Grullon, CH8 #### S [facility] LABORATORY [address] [place] [address], ESTIMATED GFR (CKD-EPI) 93 mL/min/1.73sqm Normal >=60 [facility] Comment on above: Result Comment: 2020 [...] Inclusion of Race in Diagnosing Kidney Disease. [place] Journal of Kidney Diseases 2021;79(2):268-88.e1. 2. N Engl J Med 2020 Vol. 385 Issue 19 Pages 5022-9287 Performed By: #### Reid Grullon, CH8 #### [facility] [address] [place] [address], Glucose [Mass/Vol] 105 mg/dL Normal 80-116 [facility] Comment on above: Performed By: #### Reid Grullon, CH8 #### S [facility]Y LABORATORY [address] [place] [address], Potassium [Moles/Vol] 3.8 mmol/L Normal 3.3-5.3 [facility] Comment on above: Performed By: #### Reid Grullon, CH8 #### S [facility] LABORATORY [address] [place] [address], Sodium [Moles/Vol] 137 mmol/L Normal 135-148 [facility] Comment on above: Performed By: #### Reid Grullon, CH8 #### S [facility]OLOGY LABORATORY [address] [place] [address], Urea nitrogen [Mass/Vol] 5 mg/dL Low 8-22 [facility] Comment on above: Performed By: #### Reid Gruloln, CH8 #### S PATHOLOGY LABORATORY [address] [place] [address], COMPLETE BLOOD COUNTon 05-20 Erythrocyte distribution width (RBC) [Ratio] 15.3 % High 11.5-14.5 [facility] Comment on above: Performed By: #### T S #### S PATHOLOGY LABORATORY [address] [place], [place], Hematocrit (Bld) [Volume fraction] 27.9 % Low 36.0-46.0 [facility] Comment on above: Performed By: #### T S #### S PATHOLOGY LABORATORY [address] [place], [place], Hemoglobin (Bld) [Mass/Vol] 9.2 g/dL Low 12.0-15.0 [facility] Comment on above: Performed By: #### T S #### [facility] [address] [place], [place], MCH (RBC) [Entitic mass] 27.5 pg Normal 26.0-34.0 [facility] Comment on above: Performed By: #### T S #### [facility] [address] [place], [place], MCHC (RBC) [Mass/Vol] 33.0 g/dL Normal 32.0-35.[address] [facility] Comment on above: Performed By: #### T S #### [facility] [address] [place], [place], MCV (RBC) [Entitic vol] 83 fL Normal 80-100 [facility] Comment on above: Performed By: #### T S #### [facility] [address] [place], [place], Platelet mean volume (Bld) [Entitic vol] 7.5 fL Normal 7.5-11.[address] [facility] Comment on above: Performed By: #### T S #### S PATHOLOGY LABORATORY [address] [place], [place], Platelets (Bld) [#/Vol] 231 10*3/uL Normal 150-400 [facility] Comment on above: Performed By: #### T S #### S PATHOLOGY LABORATORY [address] [place], [place], RBC (Bld) [#/Vol] 3.36 10*6/uL Low 4.00-5.20 [facility] Comment on above: Performed By: #### T S #### S PATHOLOGY LABORATORY [address] [place], [place], WBC (Bld) [#/Vol] 4.7 10*3/uL Normal 4.5-11.5 [facility] Comment on above: Performed By: #### T S #### S PATHOLOGY LABORATORY [address] [place], [place], GLUCOSE, FINGERSTICK-IN OFFI CEon 05-20-2022 Glucose [Mass/Vol] 95 mg/dL Normal 80-116 [facility] Comment on above: Performed By: #### 8 2948 ####NURSING GLUCOSE [id number] [place], [address] Glucose [Mass/Vol] 117 mg/dL High 80-116 [facility] Comment on above: Performed By: #### 8 2948 #### NURSING GLUCOSE PROGRAM [address] [place], [address] Glucose [Mass/Vol] 85 mg/dL Normal 80-116 [facility] Comment on above: Performed By: #### SAMMY Hutton #### S PATHOLOGY LABORATORY [address] [place], [place], Glucose [Mass/Vol] 100 mg/dL Normal 80-116 [facility] Comment on above: Performed By: #### T S #### S PATHOLOGY LABORATORY [address] [place], [place], Glucose [Mass/Vol] 102 mg/dL Normal 80-116 [facility] Comment on above: Performed By: #### [id number] #### NURSING GLUCOSE PROGRAM [address] [place], [address] Glucose [Mass/Vol] 92 mg/dL Normal 80-116 [facility] Comment on above: Performed By: #### SAMMY Hutton #### S PATHOLOGY LABORATORY [address] [place] [address], MAGNESIUMon 05-20-2022 Magnesium [Mass/Vol] 1.8 mg/dL Normal 1.6-2.8 [facility] Comment on above: Performed By: #### SAMMY Hutton #### [facility] [address] [place], [address] Progress Noteson 05-20-2022 Assistant Art Director Authentication Interface Message Text [facility] DIV[facility] OF ACUTE CARE SURGERY ---- GENERAL INFORMATION --- EMERGENCY GENERAL SURGERY NOTE Patient Name: Gerry Victoria Admission Date: 05/16/2022 Patient seen and examined on 05/20/2022 -- INTERVAL HISTORY/EVENTS Background Narrative: Gerry Victoria is a 66 year old female with PMH of hypertension, RLS, GERD, and h/o paroxysmal SVT who [facility] with epigastric pain with nausea and vomiting. Patient describes onset of pain on prior day that has increased since then. Shortly after onset of pain, patient experienced nausea and persistent vomiting, now unable to tolerate PO intake. Denies fevers, chills. She presented to [facility] where EKG demonstrated 'hyperacute T waves' in multiple leads without evidence of STEMI. Troponin originally 139, then 381 on repeat. CTA was performed and did not reveal dissection or PE. CT did demonstrate acute inflammation of the gallbladder with a stone at the neck. A central line was placed for resuscitation purposes and the patient was transferred to [facility] for further evaluation. Prior to transfer, lab work without leukocytosis (10.7) and LFTs/Lipase without abnormality. ACS consulted upon arrival to [facility] for cholecystitis. She was admitted to the SDU for telemetry under EGS. Hospital Course/Procedures: 05/16/2022: Transferred from [facility] ED with cholecystitis, up-trending troponin, and unclear EKG findings. Up-trending leukocytosis, down-trending troponin by PM. Cardiology following. Zosyn started. 05/17/2022: rCT with worsening gallbladder inflammation /o free air or rupture. Percutaneous cholecystotomy tube placement with IR. 05/19/2022: Bilious emesis, NGT placed 05/20/2022: Transferred to [facility] Events in last 24 hours: Transferred to [facility] Afebrile, HDS, no leukocytosis NGT in [...] Seen resting in bed in SICU in [facility] -Neurologic - No focal deficits, clear speech [...] Acute Cholecystitis Acute abdominal pain Type II AK Atypical takatsubo PMHx: GERD, HTN, HLD, spinal [...] wit (more content not included)... Normal [facility] BASIC METABOLIC PANELon 04-28 Anion gap [Moles/Vol] 10 mmol/L Normal 10-20 [facility] Comment on above: Performed By: #### M Paty, CH8 #### [facility] [address] [place] [address], Calcium [Mass/Vol] 7.7 mg/dL Low 8.4-10.4 [facility] Comment on above: Performed By: #### Reid Grullon, CH8 #### S PATHOLOGY LABORATORY [address] [place] [address], Chloride [Moles/Vol] 102 mmol/L Normal 97-111 [facility] Comment on above: Performed By: #### Reid Grullon, ADEEL8 #### S PATHOLOGY LABORATORY [address] [place], [place], CO2 [Moles/Vol] 31 mmol/L High 21-30 [facility] Comment on above: Performed By: #### Reid Grullon, ADEEL8 #### S PATHOLOGY LABORATORY [address] [place], [place], Creatinine [Mass/Vol] 0.74 mg/dL Normal 0.50-1.10 [facility] Comment on above: Performed By: #### Reid Grullon, ADEEL8 #### S PATHOLOGY LABORATORY [address] [place] [address], ESTIMATED GFR (CKD-EPI) 88 mL/min/1.73sqm Normal >=60 [facility] Comment on above: Result Comment: 2020 [...] Inclusion of Race in Diagnosing Kidney Disease. [place] Journal of Kidney Diseases 2021;79(2):268-88.e1. 2. N Engl J Med 1 Vol. 385 Issue 19 Pages [phone] Performed By: #### Reid Grullon CH8 #### S PATHOLOGY LABORATORY [address] [place] [address], Glucose [Mass/Vol] 120 mg/dL High 80-116 [facility] Comment on above: Performed By: #### Reid Grullon CH8 #### S PATHOLOGY LABORATORY [address] [place] [address], Potassium [Moles/Vol] 3.5 mmol/L Normal 3.3-5.3 [facility] Comment on above: Performed By: #### Reid Grullon, CH8 #### S PATHOLOGY LABORATORY [address] [place] [address], Sodium [Moles/Vol] 139 mmol/L Normal 135-148 [facility] Comment on above: Performed By: #### Reid Grullon, CH8 #### [facility] PATHOLOGY [facility]ORATORY [address] [place] [address], Urea nitrogen [Mass/Vol] 8 mg/dL Normal 8-22 [facility] Comment on above: Performed By: #### Reid Grullon, CH8 #### [facility] PATHOLOGY LABORATORY [address] [place] [address], COMPLETE BLOOD COUNTon 05-19 Erythrocyte distribution width (RBC) [Ratio] 15.6 % High 11.5-14.5 [facility] Comment on above: Performed By: #### Reid Grullon, ADEEL8 #### [facility] PATHOLOGY [facility]ORATORY [address] [place] [address], Hematocrit (Bld) [Volume fraction] 28.2 % Low 36.0-46.0 [facility] Comment on above: Performed By: #### Reid Grullon, CH8 #### S PATHOLOGY LABORATORY [address] [place] [address], Hemoglobin (Bld) [Mass/Vol] 9.4 g/dL Low 12.0-15.0 [facility] Comment on above: Performed By: #### Reid Grullon, CH8 #### [facility] PATHOLOGY LABORATORY [address] [place] [address], MCH (RBC) [Entitic mass] 27.7 pg Normal 26.0-34.0 [facility] Comment on above: Performed By: #### Reid Grullon, CH8 #### S PATHOLOGY LABORATORY [address] [place] [address], MCHC (RBC) [Mass/Vol] 33.6 g/dL Normal 32.0-35.9 [facility] Comment on above: Performed By: #### Reid Grullon, CH8 #### [facility] [address] [place], [place], MCV (RBC) [Entitic vol] 83 fL Normal 80-100 [facility] Comment on above: Performed By: #### Reid Grullon, CH8 #### [facility] PATHOLOG[facility] [address] [place], [place], Platelet mean volume (Bld) [Entitic vol] 7.8 fL Normal 7.5-11.2 [facility] Comment on above: Performed By: #### Reid Grullon, CH8 #### [facility] PATHOLOG[facility] [address] [place], [place], Platelets (Bld) [#/Vol] 199 10*3/uL Normal 150-400 [facility] Comment on above: Performed By: #### Reid Grullon, CH8 #### [facility] PATHOLOGY LABORATORY [address] [place], [place], RBC (Bld) [#/Vol] 3.41 10*6/uL Low 4.00-5.20 [facility] Comment on above: Performed By: #### Reid Grullon, CH8 #### [facility] PATHOLOG[facility] [address] [place], [place], WBC (Bld) [#/Vol] 5.3 10*3/uL Normal 4.5-11.5 [facility] Comment on above: Performed By: #### Reid Grullon, CH8 #### [facility] PATHOLOGY LABORATORY [address] [place], [place], Care Plan Noteon 05-19-2022 Assistant Art Director Authentication Interface Message Text Problem: Routine Care: [...] Reid Grullon, CH8 #### S PATHOLOGY LABORATORY [address] [place] [address], Glucose [Mass/Vol] 90 mg/dL Normal 80-116 [facility] Comment on above: Performed By: #### 8 [id number] #### NURSING GLUCOSE PROGRAM [address] [place] [address], [id number] Glucose [Mass/Vol] 116 mg/dL Normal 80-116 [facility] Comment on above: Performed By: #### T S #### S PATHOLOGY LABORATORY [address] [place] [address], Glucose [Mass/Vol] 106 mg/dL Normal 80-116 [facility] Comment on above: Performed By: #### Reid Grullon, CH8 #### S PATHOLOGY LABORATORY [address] [place] [address], Glucose [Mass/Vol] 106 mg/dL Normal 80-116 [facility] Comment on above: Performed By: #### Reid Grullon, CH8 #### [facility] [address] [place] [address], HEPATIC FUNCTION PANELon Albumin [Mass/Vol] 2.8 g/dL Low 3.4-5.1 [facility] Comment on above: Performed By: #### Reid Grullon, CH8 #### [facility] [address] [place] [address], ALK 63 IU/L Normal 40-200 [facility] Comment on above: Performed By: #### Reid Grullon, CH8 #### S PATHOLOGY LABORATORY [address] [place], [place], ALT [Catalytic activity/Vol] 8 U/L Normal 7-40 [facility] Comment on above: Performed By: #### Reid Grullon, CH8 #### S PATHOLOGY LABORATORY [address] [place], [place], AST [Catalytic activity/Vol] 18 U/L Normal 7-40 [facility] Comment on above: Performed By: #### Reid Grullon, CH8 #### [facility] PATHOLOG[facility] [address] [place], [place], Bilirubin [Mass/Vol] 0.9 mg/dL Normal 0.1-1.5 [facility] Comment on above: Performed By: ###Willi Grullon, CH8 #### [facility] PATHOLOG[facility]ORAT[facility] [address] [place], [place], Bilirubin.direct [Mass/Vol] 0.48 mg/dL High 0.10-0.30 [facility] Comment on above: Performed By: #### Reid Grullon, CH8 #### [facility] PATH[facility] [address] [place], [place], Protein [Mass/Vol] 4.7 g/dL Low 5.7-8.1 [facility] Comment on above: Performed By: ###Willi Grullon, CH8 #### [facility] PATH[facility] [address] [place], [place], MAGNESIUMon 05-19-2022 Magnesium [Mass/Vol] 1.8 mg/dL Normal 1.6-2.[address] [facility] Comment on above: Performed By: ###Willi Grullon, CH8 #### [facility] PATHOLOG[facility] [address] [place], [place], Progress Noteson 05-19-2022 Assistant Art Director Authentication Interface Message Text [facility] DIV[facility] OF ACUTE CARE SURGERY ---- GENERAL INFORMATION --- EMERGENCY GENERAL SURGERY NOTE Patient Name: Gerry Victoria Admission Date: 05/16/2022 Patient seen and examined on 05/19/2022 -- INTERVAL HISTORY/EVENTS Background Narrative: Gerry Victoria is a 66 year old female with PMH of hypertension, RLS, GERD, and h/o paroxysmal SVT who [facility] with epigastric pain with nausea and vomiting. Patient describes onset of pain on prior day that has increased since then. Shortly after onset of pain, patient experienced nausea and persistent vomiting, now unable to tolerate PO intake. Denies fevers, chills. She presented to [facility] where EKG demonstrated 'hyperacute T waves' in multiple leads without evidence of STEMI. Troponin originally 139, then 381 on repeat. CTA was performed and did not reveal dissection or PE. CT did demonstrate acute inflammation of the gallbladder with a stone at the neck. A central line was placed for resuscitation purposes and the patient was transferred to [facility] for further evaluation. Prior to transfer, lab work without leukocytosis (10.7) and LFTs/Lipase without abnormality. ACS consulted upon arrival to [facility] for cholecystitis. She was admitted to the SDU for telemetry under EGS. Hospital Course/Procedures: 05/16/2022: Transferred from [facility] ED with cholecystitis, up-trending troponin, and [...] vol (more content not included)... Normal [facility] XR ABDOMEN 1 VIEW APon 05-19 [...] amount of stool. MACRO: None Normal [facility] BASIC METABOLIC PANELon - Anion gap [Moles/Vol] 12 mmol/L Normal 10-20 [facility] Comment on above: Performed By: #### M ADEEL Grullon8 #### [facility] [address] [place] [address], Calcium [Mass/Vol] 7.7 mg/dL Low 8.4-10.4 [facility] Comment on above: Performed By: #### Reid Grullon, CH8 #### [facility] PATH[facility] [address] [place] [address], Chloride [Moles/Vol] 101 mmol/L Normal 97-111 [facility] Comment on above: Performed By: #### Reid Grullon, CH8 #### S PATHOLOGY LABORATORY [address] [place] [address], CO2 [Moles/Vol] 27 mmol/L Normal 21-30 [facility] Comment on above: Performed By: #### Reid Grullon, CH8 #### [facility] [address] [place] [address], Creatinine [Mass/Vol] 0.78 mg/dL Normal 0.50-1.10 [facility] Comment on above: Performed By: #### Reid Grullon, CH8 #### [facility] PATH[facility] [address] [place] [address], ESTIMATED GFR (CKD-EPI) 83 mL/min/1.73sqm Normal >=60 [facility] Comment on above: Result Comment: 2020 [...] Inclusion of Race in Diagnosing Kidney Disease. [place] Journal of Kidney Diseases 2021;79(2):268-88.e1. 2. N Engl J Med 1 Vol. 385 Issue 19 Pages [phone] Performed By: #### Reid Grullon, CH8 #### S PATHOLOGY LABORATORY [address] [place] [address], Glucose [Mass/Vol] 77 mg/dL Low 80-116 [facility] Comment on above: Performed By: #### Reid Grullon, CH8 #### [facility] [address] [place] [address], Potassium [Moles/Vol] 3.9 mmol/L Normal 3.3-5.3 [facility] Comment on above: Performed By: #### Reid Grullon, CH8 #### [facility] [address] [place] [address], Sodium [Moles/Vol] 136 mmol/L Normal 135-148 [facility] Comment on above: Performed By: #### Reid Grullon, CH8 #### [facility] [address] [place] [address], Urea nitrogen [Mass/Vol] 12 mg/dL Normal 8-22 [facility] Comment on above: Performed By: #### Reid Grullon, CH8 #### [facility] [address] [place] [address], COMPLETE BLOOD COUNTon 05-18 Erythrocyte distribution width (RBC) [Ratio] 15.3 % High 11.5-14.5 [facility] Comment on above: Performed By: #### Reid Grullon, CH8 #### [facility] [address] [place] [address], Hematocrit (Bld) [Volume fraction] 28.2 % Low 36.0-46.0 [facility] Comment on above: Performed By: #### Reid Grullon, CH8 #### [facility] [address] [place] [address], Hemoglobin (Bld) [Mass/Vol] 10.1 g/dL Low 12.0-15.0 [facility] Comment on above: Performed By: #### Reid Grullon, CH8 #### [facility] [address] [place] [address], MCH (RBC) [Entitic mass] 29.2 pg Normal 26.0-34.0 [facility] Comment on above: Performed By: #### Reid Grullon, CH8 #### [facility] [address] [place] [address], MCHC (RBC) [Mass/Vol] 35.6 g/dL Normal 32.0-35.9 [facility] Comment on above: Performed By: #### Reid Grullon, CH8 #### S PATHOLOGY LABORATORY [address] [place], [place], MCV (RBC) [Entitic vol] 82 fL Normal 80-100 [facility] Comment on above: Performed By: #### Reid Grullon, CH8 #### S PATHOLOGY LABORATORY [address] [place], [place], Platelet mean volume (Bld) [Entitic vol] 7.6 fL Normal 7.5-11.2 [facility] Comment on above: Performed By: #### Reid Grullon, CH8 #### S PATHOLOGY LABORATORY [address] [place], [place], Platelets (Bld) [#/Vol] 177 10*3/uL Normal 150-400 [facility] Comment on above: Performed By: #### Reid Grullon, CH8 #### S PATHOLOGY LABORATORY [address] [place] [address], RBC (Bld) [#/Vol] 3.45 10*6/uL Low 4.00-5.20 [facility] Comment on above: Performed By: #### Reid Grullon, CH8 #### S PATHOLOGY LABORATORY [address] [place], [place], WBC (Bld) [#/Vol] 9.4 10*3/uL Normal 4.5-11.5 [facility] Comment on above: Performed By: #### Reid Grullon, CH8 #### S PATHOLOGY LABORATORY [address] [place] [address], GLUCOSE, FINGERSTICK-IN OFFI CEon 05-18-2022 Glucose [Mass/Vol] 93 mg/dL Normal 80-116 [facility] Comment on above: Performed By: #### T S #### S PATHOLOGY LABORATORY [address] [place], [place], Glucose [Mass/Vol] 98 mg/dL Normal 80-116 [facility] Comment on above: Performed By: #### T S #### S PATHOLOGY LABORATORY [address] [place], [place], Glucose [Mass/Vol] 118 mg/dL High 80-116 [facility] Comment on above: Result Comment: Verito aly RN, APN, MD Performed By: #### T S #### S PATHOLOGY LABORATORY [address], [place], Glucose [Mass/Vol] 125 mg/dL High 80-116 [facility] Comment on above: Result Comment: Verito aly RN, APN, MD Performed By: #### M G, CH8 #### [facility] [address] [place], [place], Glucose [Mass/Vol] 66 mg/dL Low 80-116 [facility] Comment on above: Result Comment: Verito aly RN, APN, MD Performed By: #### M G, CH8 #### [facility] [address] [place], [place], HIGH SENSITIVITY TROPONIN Io n 05-18-2022 HS TROPONIN I 60 ng/L Critically high <=15 [facility] Comment on above: Order Comment: High Sensitivity Cardiac Troponin I (hsTnI) assay has replaced the conventional troponin assay at [facility].All results are reported in whole numbers representing ng/L.Repeat test times for ruling out acute coronary syndrome (ACS) are every 2 hours instead of every 6-8 hours.[id number] conventional troponin (I-stat) will remain available in the [facility] ??? results obtained by different labs [...] value in 2 hours depending on risk [id number] ng/L or greater??? concern for ACS or [...] Performed By: #### H STRP ####[facility] [id number] [place], [place], MAGNESIUMon 05-18-2022 Magnesium [Mass/Vol] 2.3 mg/dL Normal 1.6-2.8 [facility] Comment on above: Performed By: #### M Paty, CH8 #### [facility] [address] [place], [place], Progress Noteson 05-18-2022 Assistant Art Director Authentication Interface Message Text [facility] OF ACUTE CARE SURGERY ---- GENERAL INFORMATION --- EMERGENCY GENERAL SURGERY NOTE Patient Name: Gerry Victoria Admission Date: 05/16/2022 Patient seen and examined on 05/18/2022 -- INTERVAL HISTORY/EVENTS Background Narrative: Gerry Victoria is a 66 year old female with PMH of hypertension, RLS, GERD, and h/o paroxysmal SVT who [facility] pain with nausea and vomiting. Patient describes onset of pain on prior day that has increased since then. Shortly after onset of pain, patient experienced nausea and persistent vomiting, now unable to tolerate PO intake. Denies fevers, chills. She presented to [facility] where EKG demonstrated 'hyperacute T waves' in multiple leads without evidence of STEMI. Troponin originally 139, then 381 on repeat. CTA was performed and did not reveal dissection or PE. CT did demonstrate acute inflammation of the gallbladder with a stone at the neck. A central line was placed for resuscitation purposes and the patient was transferred to [facility] for further evaluation. Prior to transfer, lab work without leukocytosis (10.7) and LFTs/Lipase without abnormality. ACS consulted upon arrival to [facility] for cholecystitis. She was admitted to the SDU for telemetry under EGS. Hospital Course/Procedures: 05/16/2022: Transferred from [facility] ED with cholecystitis, up-trending troponin, and [...] obstructi (more content not included)... Normal [facility] AEROBIC WOUND CULTUREon 04-28 AEROBIC WOUND CULTURE LACTOBACILLUS SPEC IES Rare Lactobacillus species No further workup GRAM STAIN: 2+ Polymorphonuclear Leukocytes No Squamous Epithelial Cells seen 2+ Gram Positive Bacilli Normal [facility] Comment on above: Performed By: #### C PYOG #### [facility] Pathology [address] [place] [address] [place], [place] BASIC METABOLIC PANELon 04-28 Anion gap [Moles/Vol] 11 mmol/L Normal 10-20 [facility] Comment on above: Performed By: #### T S #### [facility] [address] [place] [address], Calcium [Mass/Vol] 8.1 mg/dL Low 8.4-10.4 [facility] Comment on above: Performed By: #### T S #### S PATHOLOGY LABORATORY [address] [place] [address], Chloride [Moles/Vol] 97 mmol/L Normal 97-111 [facility] Comment on above: Performed By: #### T S #### S PATHOLOGY LABORATORY [address] [place] [address], CO2 [Moles/Vol] 27 mmol/L Normal 21-30 [facility] Comment on above: Performed By: #### T S #### S PATHOLOGY LABORATORY [address] [place] [address], Creatinine [Mass/Vol] 0.97 mg/dL Normal 0.50-1.10 [facility] Comment on above: Performed By: #### T S #### S PATHOLOGY LABORATORY [address] [place] [address], ESTIMATED GFR (CKD-EPI) 64 mL/min/1.73sqm Normal >=60 [facility] Comment [...] Inclusion of Race in Diagnosing Kidney Disease. [place] Journal of Kidney Diseases 202;79(2):268-88.e1. 2. N Engl J Med 1 Vol. 385 Issue 19 Pages [phone] Performed By: #### T S #### S PATHOLOGY LABORATORY [address] [place] [address], Glucose [Mass/Vol] 96 mg/dL Normal 80-116 [facility] Comment on above: Performed By: #### T S #### [facility] [address] [place] [address], Potassium [Moles/Vol] 4.1 mmol/L Normal 3.3-5.3 [facility] Comment on above: Performed By: #### T S #### [facility] [address] [place] [address], Sodium [Moles/Vol] 131 mmol/L Low 135-148 [facility] Comment on above: Performed By: #### T S #### S PATHOLOGY LABORATORY [address] [place] [address], Urea nitrogen [Mass/Vol] 14 mg/dL Normal 8-22 [facility] Comment on above: Performed By: #### T S #### S PATHOLOGY LABORATORY [address] [place] [address], BLOOD CULTUREon 05-17-2022 Bacteria identified Cx Nom (Bld) C BLOOD: No Growth Normal [facility] Comment on above: Performed By: #### [id number] #### NURSING GLUCOSE PROGRAM [address] [place] [address], [id number] CALCIUM, IONIZEDon 3 CR ICA 1.06 mmol/L Low 1.10-1.40 [facility] Comment on above: Performed By: #### T S #### S PATHOLOGY LABORATORY [address] [place] [address], COMPLETE BLOOD COUNTon 05-17 Erythrocyte distribution width (RBC) [Ratio] 15.8 % High 11.5-14.5 [facility] Comment on above: Performed By: #### Meenu H8, HEPATIC #### S PATHOLOGY LABORATORY [address] [place] [address], Hematocrit (Bld) [Volume fraction] 36.4 % Normal 36.0-46.0 [facility] Comment on above: Performed By: #### Meenu Trammell8, HEPATIC #### S [facility] LAB[facility]ATORY [address] [place] [address], Hemoglobin (Bld) [Mass/Vol] 12.1 g/dL Normal 12.0-15.0 [facility] Comment on above: Performed By: #### Meenu Mccormick, HEPATIC #### [facility] [address] [place] [address], MCH (RBC) [Entitic mass] 27.7 pg Normal 26.0-34.0 [facility] Comment on above: Performed By: #### Meenu H8, HEPATIC #### [facility] [address] [place] [address], MCHC (RBC) [Mass/Vol] 33.3 g/dL Normal 32.0-35.9 [facility] Comment on above: Performed By: #### Meenu H8, HEPATIC #### [facility] [address] [place] [address], MCV (RBC) [Entitic vol] 83 fL Normal 80-100 [facility] Comment on above: Performed By: #### Meenu H8, HEPATIC #### S [facility] LAB[facility]ATORY [address] [place] [address], Platelet mean volume (Bld) [Entitic vol] 7.8 fL Normal 7.5-11.2 [facility] Comment on above: Performed By: #### Meenu H8, HEPATIC #### S [facility]AT[facility] [address] [place] [address], Platelets (Bld) [#/Vol] 232 10*3/uL Normal 150-400 [facility] Comment on above: Performed By: #### C H8, HEPATIC #### S [facility] [address], [place], RBC (Bld) [#/Vol] 4.37 10*6/uL Normal 4.00-5.20 [facility] Comment on above: Performed By: #### C H8, HEPATIC #### [facility] [address], [place], WBC (Bld) [#/Vol] 12.3 10*3/uL High 4.5-11.5 [facility] Comment on above: Performed By: #### C H8, HEPATIC #### S [facility] [address], [place], CT ABDOMEN/PELVIS W/ CONTRAS Ton 05-17-2022 [...] the prior study. MACRO: None Normal [facility] HEPATIC FUNCTION PANELon Albumin [Mass/Vol] 3.2 g/dL Low 3.4-5.1 [facility] Comment on above: Performed By: #### C H8, HEPATIC #### [facility] [address] [place] [address], ALK 72 IU/L Normal 40-200 [facility] Comment on above: Performed By: #### C H8, HEPATIC #### [facility] [address] [place] [address], ALT [Catalytic activity/Vol] 12 U/L Normal 7-40 [facility] Comment on above: Performed By: #### C H8, HEPATIC #### [facility] [address] [place] [address], AST [Catalytic activity/Vol] 25 U/L Normal 7-40 [facility] Comment on above: Performed By: #### C H8, HEPATIC #### [facility] [address] [place] [address], Bilirubin [Mass/Vol] 3.9 mg/dL High 0.1-1.5 [facility] Comment on above: Performed By: #### C H8, HEPATIC #### S [facility] [address] [place] [address], Bilirubin.direct [Mass/Vol] 2.30 mg/dL High 0.10-0.30 [facility] Comment on above: Performed By: #### C H8, HEPATIC #### S [facility] [address] [place] [address], Protein [Mass/Vol] 5.2 g/dL Low 5.7-8.1 [facility] Comment on above: Performed By: #### C H8, HEPATIC #### [facility] [address] [place] [address], LACTIC ACIDon 05-17-2022 CR LACT 1.4 mmol/L Normal 0.5-2.0 [facility] Comment on above: Performed By: #### T S #### [facility] [address] [place] [address], MAGNESIUMon 05-17-2022 Magnesium [Mass/Vol] 1.9 mg/dL Normal 1.6-2.8 [facility] Comment on above: Performed By: #### C H8, HEPATIC #### S [facility] LAB[facility]ATORY [address] [place] [address], PARTIAL THROMBOPLASTIN TIMEo n 05-17-2022 aPTT Coag (Bld) [Time] 34 s Normal 25-37 [facility] Comment on above: Performed By: #### M Paty, CH8 #### S [facility] LAB[facility]ATORY [address] [place] [address], PHOSPHORUSon 05-17-2022 Phosphate [Mass/Vol] 3.9 mg/dL Normal 2.3-4.2 [facility] Comment on above: Performed By: #### C H8, HEPATIC #### [facility] [address], [place], PROTHROMBIN TIME AND INRon 0 05-17-2022 INR Coag (PPP) [Relative time] 1.61 {INR} High 0.90-1.10 [facility] Comment on above: Performed By: #### Reid Grullon, CH8 #### S [facility] [address], [place], PT Coag (PPP) [Time] 18.1 s High 9.7-12.9 [facility] Comment on above: Performed By: #### M Paty, CH8 #### [facility] [address], [place], Progress Noteson 05-17-2022 Assistant Art Director Authentication Interface Message Text Acute Care Surgery Post-Operative Check Gerry Victoria [id number] Procedure: US guided percutaneous cholecystostomy tube placement [...] Chu Da Silva PA-C Acute Care Surgery [facility] [phone] ACS Consults [phone] ACS Floor Patients Normal [facility] Assistant Art Director Authentication Interface Message Text -- Attestation signed [...] 4. (more content not included)... Normal [facility] Assistant Art Director Authentication Interface Message Text [facility] DIVISION OF ACUTE CARE SURGERY ---- GENERAL INFORMATION --- EMERGENCY GENERAL SURGERY NOTE Patient Name: Gerry Victoria Admission Date: 05/16/2022 Patient seen and examined on 05/17/2022 -- INTERVAL HISTORY/EVENTS Background Narrative: eGrry Victoria is a 66 year old female with PMH of hypertension, RLS, GERD, and h/o paroxysmal SVT who [facility] epigastric pain with nausea and vomiting. Patient describes onset of pain on prior day that has increased since then. Shortly after onset of pain, patient experienced nausea and persistent vomiting, now unable to tolerate PO intake. Denies fevers, chills. She presented to [facility] where EKG demonstrated 'hyperacute T waves' in multiple leads without evidence of STEMI. Troponin originally 139, then 381 on repeat. CTA was performed and did not reveal dissection or PE. CT did demonstrate acute inflammation of the gallbladder with a stone at the neck. A central line was placed for resuscitation purposes and the patient was transferred to [facility] for further evaluation. Prior to transfer, lab work without leukocytosis (10.7) and LFTs/Lipase without abnormality. ACS consulted upon arrival to [facility] for cholecystitis. She was admitted to the SDU for telemetry under EGS. Hospital Course/Procedures: 05/16/2022: Transferred from [facility] ED with cholecystitis, up-trending troponin, and [...] BUN Cr Ca Mg PO4 05/17/22410 3.9 05/17/22 0411 1.9 05/17/22410 131 4.1 [...] (LVEF) (more content not included)... Normal [facility] ABO RH TYPEon 05-16-2022 ABO and Rh group Nom (Bld) Blood group A Rh(D) positive Normal [facility] Comment on above: Performed By: #### M G, CH8 #### [facility] [address] [place], [address] BASIC METABOLIC PANELon 04-28 Anion gap [Moles/Vol] 14 mmol/L Normal - [facility] Comment on above: Performed By: #### C H8, HEPATIC #### [facility] [address], [place], Calcium [Mass/Vol] 8.6 mg/dL Normal 8.4-10.4 [facility] Comment on above: Performed By: #### C H8, HEPATIC #### [facility] [address], [place], Chloride [Moles/Vol] 100 mmol/L Normal 97-111 [facility] Comment on above: Performed By: #### C H8, HEPATIC #### [facility] [address], [place], CO2 [Moles/Vol] 27 mmol/L Normal 21-30 [facility] Comment on above: Performed By: #### C H8, HEPATIC #### [facility] [address], [place], Creatinine [Mass/Vol] 0.76 mg/dL Normal 0.50-1.10 [facility] Comment on above: Performed By: #### C H8, HEPATIC #### [facility] [address], [place], ESTIMATED GFR (CKD-EPI) 85 mL/min/1.73sqm Normal >=60 [facility] Comment on above: Result Comment: 2020 [...] Inclusion of Race in Diagnosing Kidney Disease. [place] Journal of Kidney Diseases 2021;79(2):268-88.e1. 2. N Engl J Med 2020 Vol. 385 Issue 19 Pages 3339-7065 Performed By: #### C H8, HEPATIC #### [facility] [address], [place], Glucose [Mass/Vol] 119 mg/dL High 80-116 [facility] Comment on above: Performed By: #### C H8, HEPATIC #### [facility] [address], [place], Potassium [Moles/Vol] 4.9 mmol/L Normal 3.3-5.3 [facility] Comment on above: Performed By: #### C H8, HEPATIC #### [facility] [address], [place], Sodium [Moles/Vol] 136 mmol/L Normal 135-148 [facility] Comment on above: Performed By: #### C H8, HEPATIC #### [facility] [address], [place], Urea nitrogen [Mass/Vol] 9 mg/dL Normal 8-22 [facility] Comment on above: Performed By: #### C H8, HEPATIC #### [facility] [address], [place], Blood Cultureon 05-16-2022 Bacteria identified Cx Nom (Bld) NO GROWTH 5 DAYS PERFORMED BY: [place] [address] PATHOLOGIST FEATHER MAKER WILDER BOTELLO M.D. [facility] Comment on above: Performed By: #### B MP, CBC, LIPASE, HEPATIC #### [address] CBC WITH DIFFERENTIALon 04-28 Basophils (Bld) [#/Vol] 0.06 10*3/uL Normal 0.00-0.20 [facility] Comment on above: Performed By: #### 8 2948 #### NURSING GLUCOSE PROGRAM [address] [place], [address] Basophils/100 WBC (Bld) 0.5 % Normal <=1.9 [facility] Comment on above: Performed By: #### 8 2948 #### NURSING GLUCOSE PROGRAM [address] [place], [address] Eosinophils (Bld) [#/Vol] 0.02 10*3/uL Normal 0.00-0.70 [facility] Comment on above: Performed By: #### 8 2948 #### NURSING GLUCOSE PROGRAM [address] [place], [address] Eosinophils/100 WBC (Bld) 0.1 % Normal 0.1-4.0 [facility] Comment on above: Performed By: #### 8 2944 #### NURSING GLUCOSE PROGRAM [address] [place], [address] Erythrocyte distribution width (RBC) [Ratio] 15.3 % High 11.5-14.5 [facility] Comment on above: Performed By: #### 8 2948 #### NURSING GLUCOSE PROGRAM [address] [place], [address] Hematocrit (Bld) [Volume fraction] 39.2 % Normal 36.0-46.0 [facility] Comment on above: Performed By: #### 8 2948 #### NURSING GLUCOSE PROGRAM [address] [place] [address], [address] Hemoglobin (Bld) [Mass/Vol] 13.0 g/dL Normal 12.0-15.0 [facility] Comment on above: Performed By: #### 8 2948 #### NURSING GLUCOSE PROGRAM [address] [place] [address], [address] Lymphocytes (Bld) [#/Vol] 1.23 10*3/uL Normal 1.00-4.80 [facility] Comment on above: Performed By: #### 8 2948 #### NURSING GLUCOSE PROGRAM [address] [place] [address], [address] Lymphocytes/100 WBC (Bld) 10.9 % Low 24.0-44.0 [facility] Comment on above: Performed By: #### 8 2948 #### NURSING GLUCOSE PROGRAM [address] [place] [address], [address] MCH (RBC) [Entitic mass] 27.4 pg Normal 26.0-34.0 [facility] Comment on above: Performed By: #### 8 2948 #### NURSING GLUCOSE PROGRAM [address] [place] [address], [address] MCHC (RBC) [Mass/Vol] 33.1 g/dL Normal 32.0-35.9 [facility] Comment on above: Performed By: #### 8 2948 #### NURSING GLUCOSE PROGRAM [address] [place] [address], [address] MCV (RBC) [Entitic vol] 83 fL Normal 80-[address] [facility] Comment on above: Performed By: #### 8 2948 #### NURSING GLUCOSE PROGRAM [address] [place] [address], [address] MONOCYTE DISTRIBUTION WIDTH 17 Normal <=20 [facility] Comment on above: Performed By: #### 8 2948 #### NURSING GLUCOSE PROGRAM [address] [place], [address] Monocytes (Bld) [#/Vol] 0.69 10*3/uL Normal 0.20-1.00 [facility] Comment on above: Performed By: #### 8 2948 #### NURSING GLUCOSE PROGRAM [address] [place], [address] Monocytes/100 WBC (Bld) 6.1 % Normal 2.0-11.0 [facility] Comment on above: Performed By: #### 8 2948 #### NURSING GLUCOSE PROGRAM [address] [place], [address] Neutrophils (Bld) [#/Vol] 9.30 10*3/uL High 1.50-8.00 [facility] Comment on above: Performed By: #### 8 2948 #### NURSING GLUCOSE PROGRAM [address] [place], [address] Neutrophils/100 WBC (Bld) 82.4 % High 31.0-76.0 [facility] Comment on above: Performed By: #### 8 2948 #### NURSING GLUCOSE PROGRAM [address] [place], [address] Platelet mean volume (Bld) [Entitic vol] 7.5 fL Normal 7.5-11.2 [facility] Comment on above: Performed By: #### 8 2948 #### NURSING GLUCOSE PROGRAM [address] [place], [address] Platelets (Bld) [#/Vol] 290 10*3/uL Normal 150-400 [facility] Comment on above: Performed By: #### 8 2948 #### NURSING GLUCOSE PROGRAM [address] [place], [address] RBC (Bld) [#/Vol] 4.74 10*6/uL Normal 4.00-5.20 [facility] Comment on above: Performed By: #### 8 2948 #### NURSING GLUCOSE PROGRAM [address] [place], [address] WBC (Bld) [#/Vol] 11.3 10*3/uL Normal 4.5-11.5 [facility] Comment on above: Performed By: #### 8 2948 #### NURSING GLUCOSE PROGRAM [address] [place], [address] CT angio chest PE protocolon 05-16-2022 CT angio chest PE protocol [facility] [place] [address] [place] [address] [address] [address] Scan Report Signed Patient: Gerry Victoria MR#: [id number] 10 : 1955 Acct:[id number] Age/Sex: 66 / F ADM Date: 05/15/22 Loc: ER Room: Type: [facility] ER Attending Dr: Copies to: [...] Aditya Hodge M.D.05/16/2022 8:19 AM Dictation Location: [place] [address] Transcribed By: MANUEL 05/16/22818 Dictated By: Aditya Hodge II, MD 05/16/22810 Signed By: 05/16/22818 [facility] Care Plan Noteon 05-16-2022 Assistant Art Director Authentication Interface Message Text Problem: Routine Care: [...] Marycarmen Anna RN Outcome: Progressing Normal [facility] Assistant Art Director Authentication Interface Message Text This is a 66 YO f with PMH of fibromyalgia, HTN, RLS, who presented with epigastric pain associated with nausea and vomiting around yesterday afternoon. She was seen at [facility] and EKG done there showed NSR but [...] admit to surgery step down. Normal [facility] Consultson 05-16-2022 Assistant Art Director Authentication Interface Message Text Dietitian vs DietaryTech: Dietary TechDiet Check Out Clerk Nutrition Screening Reason for visit: Positive nutrition [...] Screening Value: None Comments: NPO currently with mgjagu-aubizvvr-wyfwqh to tolerate po. No food allergies. Weights-see above. Monitor NPO status-diet advance. Number of Points: 1 Nutritional Plan of Care: Less than or equal to 6 points: At this time, patient is at low nutrition risk. DTR to provide routine follow up. Will continue to follow, BRENDA Florez (Nutrition) Pager #[phone]. Normal [facility] Assistant Art Director Authentication Interface Message Text ==== New Patient Consult General Cardiology Consult Service C/O: elevated troponin levels HPI: 66 year old female with history of hypertension (on atenolol), fibromylagia, RLS is consulted for elevated HsTNT levels in the setting of hospitalization for acute cholecystitis. She presented to [facility] on 05/15 with epigastric pain, nausea and vomiting, worsening in nature and unable to tolerate oral medications. Per records, EKG at [facility] showed hyperacute T waves without STEMI. HsTroponin trend as 139->381. Imaging showed acute cholecystitis. Patient was then transferred to [facility] for further care. Patient reports no left sided chest pain, however symptomatic with epigastric pain and nausea. Denies any exertional angina at home, no orthopnea, PND or palpitations at home. Denies any prior history of AK/CAD, DM-2, HF or arrhythmias. She was modestly [...] 05/16 NSR with tall T waves, without PA Echocardiogram (TTE) None yet Stress testing None Cardiac Cath none Assessment AND Plan Troponinemia, as Type II AK. It is under the setting of demand [...] docum (more content not included)... Normal [facility] ED Provider Noteson 05-16-19 Assistant Art Director Authentication Interface Message Text EMERGENCY DEPARTMENT - [...] and shows cholecystitis Discussion with External Provider: Carbide Tool Die Maker from surgery service recommends admission for cholecystectomy [...] comforta (more content not included)... Normal [facility] Valeri SUNI Rees 05-16-2022 Assistant Art Director Authentication Interface Message Text [facility] ACUTE CARE SURGERY H AND P Gerry Victoria [id number] Consult reason: Concern for acute cholecystitis History (HPI) Gerry Victoria is a 66 year old female with PMH of hypertension, RLS, GERD who [facility] with epigastric pain with nausea and vomiting. Patient describes onset of pain on prior day that has increased since then. Shortly after onset of pain, patient experienced nausea and persistent vomiting, now unable to tolerate PO intake. Denies fevers, chills. She presented to [facility] where EKG demonstrated 'hyperacute T waves' in multiple leads without evidence of STEMI. Troponin originally 139, then 381 on repeat. CTA was performed and did not reveal dissection or PE. CT did demonstrate acute inflammation of the gallbladder with a stone at the neck. A central line was placed for resuscitation purposes and the patient was transferred to [facility] for further evaluation. Prior to transfer, lab [...] Use (none): Lives with her cats (Kasi, Teddyeaker, Marely). Review of Systems (Bold is Positive [...] RLS, GERD who presents as transfer from [facility] with concern for acute cholecystitis alongside [...] impa (more content not included)... Normal [facility] HEPATIC FUNCTION PANELon Albumin [Mass/Vol] 4.0 g/dL Normal 3.4-5.1 [facility] Comment on above: Performed By: #### C H8, HEPATIC #### [facility] [address] [place] [address], ALK 79 IU/L Normal 40-200 [facility] Comment on above: Performed By: #### C H8, HEPATIC #### [facility] [address] [place] [address], ALT [Catalytic activity/Vol] 11 U/L Normal 7-40 [facility] Comment on above: Performed By: #### C H8, HEPATIC #### [facility] [address] [place] [address], AST [Catalytic activity/Vol] 20 U/L Normal 7-40 [facility] Comment on above: Performed By: #### C H8, HEPATIC #### [facility] [address] [place] [address], Bilirubin [Mass/Vol] 0.6 mg/dL Normal 0.1-1.5 [facility] Comment on above: Performed By: #### C H8, HEPATIC #### [facility] [address] [place] [address], Bilirubin.direct [Mass/Vol] 0.13 mg/dL Normal 0.10-0.30 [facility] Comment on above: Performed By: #### C H8, HEPATIC #### [facility] [address], [place], Protein [Mass/Vol] 6.4 g/dL Normal 5.7-8.1 [facility] Comment on above: Performed By: #### C H8, HEPATIC #### [facility] [address], [place], HIGH SENSITIVITY TROPONIN Io n 05-16-2022 HS TROPONIN I 319 ng/L Critically high <=15 [facility] Comment on above: Order Comment: High Sensitivity Cardiac Troponin I (hsTnI) assay has replaced the conventional troponin assay at [facility]. All results are reported in whole numbers representing ng/L. Repeat test times for ruling out acute coronary syndrome (ACS) are every 2 hours instead of every 6-8 hours. Bmqvj-nu-fdov conventional troponin (I-stat) will remain available in the [facility] ??? results obtained by different labs [...] #### H STRP #### [facility] [address] [place] [address], [phone] HS TROPONIN I 475 ng/L Critically high <=15 [facility] Comment on above: Order Comment: High Sensitivity Cardiac Troponin I (hsTnI) assay has replaced the conventional troponin assay at [facility].All results are reported in whole numbers representing ng/L.Repeat test times for ruling out acute coronary syndrome (ACS) are every 2 hours instead of every 6-8 hours.Ayoyi-mu-rnwa conventional troponin (I-stat) will remain available in the [facility] ??? results obtained by different labs [...] value in 2 hours depending on risk [id number] ng/L or greater??? concern for ACS or [...] H8, HEPATIC #### [facility] [address] [place], [address] HS TROPONIN I 433 ng/L Critically high <=15 [facility] Comment on above: Order Comment: High Sensitivity Cardiac Troponin I (hsTnI) assay has replaced the conventional troponin assay at [facility].All results are reported in whole numbers representing ng/L.Repeat test times for ruling out acute coronary syndrome (ACS) are every 2 hours instead of every 6-8 hours.Gggjt-rv-atdr conventional troponin (I-stat) will remain available in the [facility] ED ??? results obtained by [...] value in 2 hours depending on risk [id number] ng/L or greater??? concern for ACS or [...] Performed By: #### H STRP ####[facility] [id number] [place], [address] HS TROPONIN I 714 ng/L Critically high <=15 [facility] Comment on above: Order Comment: High Sensitivity Cardiac Troponin I (hsTnI) assay has replaced the conventional troponin assay at [facility].All results are reported in whole numbers representing ng/L.Repeat test times for ruling out acute coronary syndrome (ACS) are every 2 hours instead of every 6-8 hours.Lhlcd-cn-fkcj conventional troponin (I-stat) will remain available in the [facility] ??? results obtained by different labs [...] value in 2 hours depending on risk [id number] ng/L or greater??? concern for ACS or [...] = 2 points). Performed By: #### M G, 8 #### [facility] [address] [place] [address], [phone] HS TROPONIN I 706 ng/L Critically high <=15 [facility] Comment on above: Order Comment: High Sensitivity Cardiac Troponin I (hsTnI) assay has replaced the conventional troponin assay at [facility].All results are reported in whole numbers representing ng/L.Repeat test times for ruling out acute coronary syndrome (ACS) are every 2 hours instead of every 6-8 hours.Qchzl-wf-fgdn conventional troponin (I-stat) will remain available in the [facility] ??? results obtained by different labs [...] value in 2 hours depending on risk [id number] ng/L or greater??? concern for ACS or [...] C H8, HEPATIC #### S PATHOLOGY LABORATORY [address] [place] [address], LACTATE WITH REPEAT EDon CR LACT 1.8 mmol/L Normal 0.5-2.0 [facility] Comment on above: Performed By: #### C H8, HEPATIC #### [facility] [address] [place] [address], PARTIAL THROMBOPLASTIN TIMEo n 05-16-2022 aPTT Coag (Bld) [Time] 55 s High 25-37 [facility] Comment on above: Performed By: #### C H8, HEPATIC #### [facility] [address] [place] [address], PROTHROMBIN TIME AND INRon 0 05-16-2022 INR Coag (PPP) [Relative time] 1.10 {INR} Normal 0.90-1.10 [facility] Comment on above: Performed By: #### C H8, HEPATIC #### [facility] [address] [place] [address], PT Coag (PPP) [Time] 12.4 s Normal 9.7-12.9 [facility] Comment on above: Performed By: #### C H8, HEPATIC #### [facility] [address] [place] [address], Procedureson 05-16-2022 Assistant Art Director Authentication Interface Message Text Transthoracic Echocardiographic Report Name: JULIEN GARRETT Interpreting LETITIA ELKINS MD Physician: : 1955 Referring JANNETH SAGE Physician: Age: 66 Human Relations Manager: Laina Mora [facility] Exam Date: 05/16/2022 Fellow: 11:11 [...] Doctor's order(s) verified. Patient's preferred language is Luxembourger . Verbal consent for left heart echo [...] physician) on 05/16/2022 12:03 PM Normal [facility] Progress Noteson 05-16-2022 Assistant Art Director Authentication Interface Message Text [id number] notified of critical Troponin value of 475. read back critical results. New orders not received. Normal [facility] Assistant Art Director Authentication Interface Message Text [employer] DIVISION OF ACUTE CARE SURGERY ---- GENERAL INFORMATION --- EMERGENCY GENERAL SURGERY NOTE Patient Name: Gerry Victoria Admission Date: 05/16/2022 Patient seen and examined on 05/16/2022 -- INTERVAL HISTORY/EVENTS Background Narrative: Gerry Victoria is a 66 year old female with PMH of hypertension, RLS, GERD, and h/o paroxysmal SVT who [facility] epig[facility] pain with nausea and vomiting. Patient describes onset of pain on prior day that has increased since then. Shortly after onset of pain, patient experienced nausea and persistent vomiting, now unable to tolerate PO intake. Denies fevers, chills. She presented to [facility] where EKG demonstrated 'hyperacute T waves' in multiple leads without evidence of STEMI. Troponin originally 139, then 381 on repeat. CTA was performed and did not reveal dissection or PE. CT did demonstrate acute inflammation of the gallbladder with a stone at the neck. A central line was placed for resuscitation purposes and the patient was transferred to [facility] for further evaluation. Prior to transfer, lab work without leukocytosis (10.7) and LFTs/Lipase without abnormality. ACS consulted upon arrival to [facility] for cholecystitis. She was admitted to the SDU for telemetry under EGS. Hospital Course/Procedures: 05/16/2022: Transferred from [facility] ED with cholecystitis, up-trending troponin, and [...] fr (more content not included)... Normal [facility] TYPE AND SCREENon 05-16-2022 ABO and Rh group Nom (Bld) Blood group A Rh(D) positive Normal [facility] Comment on above: Performed By: #### T S #### [facility] [address] [place], [place], ABO and Rh group Nom (Bld) No Previous Results Normal [facility] Comment on above: Performed By: #### T S #### [facility] [address], [place], ABSC INT Negative Normal [facility] Comment on above: Performed By: #### T S #### [facility] [address], [place], [place] LIVER/GALL BLADDER/PANCRE ASon 05-16-2022 US [...] significant biliary dilatation. MACRO: None Normal [facility] XR CHEST 1 VIEW AP OR [...] other acute process. MACRO: None Normal [facility] XR chest 1V portableon 05-16 XR chest 1V portable [facility] [place] [address] XRay Report Signed Patient: Gerry Victoria MR#: [id number] 10 : 1955 Acct:[id number] Age/Sex: 66 / F ADM Date: 05/15/22 Loc: ER Room: Type: [facility] ER Attending Dr: Copies to: [...] Aditya Hodge M.D.05/16/2022 9:24 AM Dictation Location: [place] [address] Transcribed By: [facility] 05/16/22923 Dictated By: Aditya Hodge II, MD 05/16/22922 Signed By: 05/16/22923 Normal [facility] Activated partial thrombopla stin time (aPTT) in platelet poor plasma by coagulation aOrdered By: Keith Griffith on 05-15-2022 aPTT Coag (PPP) [Time] 29.6 s 25.1-36.5 [facility] Albumin [Mass/volume] in Ser um or PlasmaOrdered By: Keith Griffith on 05-15-2022 Albumin [Mass/Vol] 4.4 g/dL 3.2-5.5 [facility] B-Type Natriuretic Peptideon 05-15-2022 Natriuretic peptide B (Bld) [Mass/Vol] 365.0 pg/mL High 5-100 [facility] Comment on above: Result Comment: PERF ORMED BY: [place] [address] PATHOLOGIST FEATHER MAKER WILDER BOTELLO M.D. Performed By: #### B MP, CBC, LIPASE, HEPATIC #### [facility] [address] [place] [address] Bacterial blood cultureOrder ed By: Keith Griffith on 05-15-2022 Bacteria identified Cx Nom (Bld) NO GROWTH 5 DAYS [facility] Basic Metabolic Panelon 04-27 Anion gap [Moles/Vol] 13.5 mmol/L Normal 6.0-15.0 [facility] Comment on above: Performed By: #### B MP, CBC, LIPASE, HEPATIC #### [facility] [address] [place] [address] Calcium [Mass/Vol] 8.9 mg/dL Normal 8.2-10.2 [facility] Comment on above: Performed By: #### B MP, CBC, LIPASE, HEPATIC #### [facility] [address] Chloride [Moles/Vol] 98 mmol/L Normal 95-114 [facility] Comment on above: Performed By: #### B MP, CBC, LIPASE, HEPATIC #### [facility] [address] CO2 [Moles/Vol] 25.7 mmol/L Normal 22.0-30.0 [facility] Comment on above: Performed By: #### B MP, CBC, LIPASE, HEPATIC #### [facility] [address] Creatinine [Mass/Vol] 0.98 mg/dL Normal 0.44-1.03 [facility] Comment on above: Performed By: #### B MP, CBC, LIPASE, HEPATIC #### [address] Creatinine Clr Calc Pharmacy 51.97 [facility] Comment on above: Performed By: #### B MP, CBC, LIPASE, HEPATIC #### [facility] [address] Estimated GFR ( Unique > 60 [facility] Comment on above: Result Comment: GFR estimated reference range: According to KDOQI guidelines, <60 ml/min/1.73m2 is sufficient to diagnose a patient with chronic kidney disease. Performed By: #### B MP, CBC, LIPASE, HEPATIC #### [address] Estimated GFR (Non- Am 56 [facility] Comment on above: Performed By: #### B MP, CBC, LIPASE, HEPATIC #### [facility] [address] [place] [address] [place] Glucose [Mass/Vol] 126 mg/dL High 70-100 [facility] Comment on above: Result Comment: [place] om Glucose Reference Range is dependent on time and content of last meal. Glucose of more than 200 mg/dL in a nonstressed, ambulatory subject supports the diagnosis of Diabetes Mellitus. ADA recommended reference range Performed By: #### B MP, CBC, LIPASE, HEPATIC #### [facility] [address] [place] [address] [place] Potassium [Moles/Vol] 3.2 mmol/L Low 3.5-5.1 [facility] Comment on above: Performed By: #### B MP, CBC, LIPASE, HEPATIC #### [facility] [address] Sodium [Moles/Vol] 134 mmol/L Low 136-146 [facility] Comment on above: Performed By: #### B MP, CBC, LIPASE, HEPATIC #### [facility] [address] Urea nitrogen [Mass/Vol] 7 mg/dL Low 9-23 [facility] Comment on above: Performed By: #### B MP, CBC, LIPASE, HEPATIC #### [facility] [address] Basophils Auto (Bld) [#/Vol] Ordered By: Keith Griffith on 05-15-2022 Basophils (Bld) [#/Vol] 0.1 10*3/uL 0.0-0.2 [facility] Basophils/100 WBC Auto (Bld) Ordered By: Keith Griffith on 05-15-2022 Basophils/100 WBC (Bld) 0.6 % . [facility] Bilirubin Test strip Ql (U)O rdered By: Keith Griffith on 05-15-2022 Bilirubin Ql (U) Negative Negative [facility] CT abdomen pelvis w conon CT abdomen pelvis w con [facility] [place] [address] [place] [address] CT Scan Report Signed Patient: Gerry Victoria MR#: [id number] 10 : 1955 Acct:[id number] Age/Sex: 66 / F ADM Date: 05/15/22 Loc: ER Room: Type: [facility] ER Attending Dr: Copies to: Keith [...] Ann Jr., Colin05/15/2022 6:59 PM Dictation Location: [place] [address] Transcribed By: [facility] 05/15/221858 Dictated By: Nicholas Ann Jr, DO 05/15/221854 Signed By: 05/15/221858 Normal [facility] Color Auto (U)Ordered By: George Griffith on 05-15-2022 Color (U) Yellow Yellow [facility] Complete Blood Count Auto Di ffon 05-15-2022 Basophils (Bld) [#/Vol] 0.1 10*3/uL Normal 0.0-0.2 [facility] Comment on above: Result Comment: PERF ORMED BY: [place] [address] PATHOLOGIST FEATHER MAKER WILDER BOTELLO M.D. Performed By: #### B MP, CBC, LIPASE, HEPATIC #### [address] Basophils/100 WBC (Bld) 0.6 % Normal . [facility] Comment on above: Performed By: #### B MP, CBC, LIPASE, HEPATIC #### [address] Eosinophils (Bld) [#/Vol] 0.0 10*3/uL Normal 0.0-0.45 [facility] Comment on above: Performed By: #### B MP, CBC, LIPASE, HEPATIC #### [address] Eosinophils/100 WBC (Bld) 0.3 % Normal . [facility] Comment on above: Performed By: #### B MP, CBC, LIPASE, HEPATIC #### [address] Erythrocyte distribution width (RBC) [Ratio] 15.2 % Normal 11.9-15.3 [facility] Comment on above: Performed By: #### B MP, CBC, LIPASE, HEPATIC #### [address] Hematocrit (Bld) [Volume fraction] 42.8 % Normal 34.0-46.4 [facility] Comment on above: Performed By: #### B MP, CBC, LIPASE, HEPATIC #### [address] Hemoglobin (Bld) [Mass/Vol] 14.1 g/dL Normal 11.8-15.4 [facility] Comment on above: Performed By: #### B MP, CBC, LIPASE, HEPATIC #### [address] Lymphocytes (Bld) [#/Vol] 0.9 10*3/uL Low 1.00-4.8 [facility] Comment on above: Performed By: #### B MP, CBC, LIPASE, HEPATIC #### [address] Lymphocytes/100 WBC (Bld) 8.6 % Normal . [facility] Comment on above: Performed By: #### B MP, CBC, LIPASE, HEPATIC #### [address] MCH (RBC) [Entitic mass] 27.4 pg Normal 24.7-34.3 [facility] Comment on above: Performed By: #### B MP, CBC, LIPASE, HEPATIC #### [address] MCV (RBC) [Entitic vol] 83.0 fL Normal 80-100 [facility] Comment on above: Performed By: #### B MP, CBC, LIPASE, HEPATIC #### [address] Mean Corpuscular HGB Conc 33.0 g/dL Normal 32.0-35.0 [facility] Comment on above: Performed By: #### B MP, CBC, LIPASE, HEPATIC #### [address] Monocytes (Bld) [#/Vol] 0.5 10*3/uL Normal 0.0-0.8 [facility] Comment on above: Performed By: #### B MP, CBC, LIPASE, HEPATIC #### [address] Monocytes/100 WBC (Bld) 15.42 % Normal 0.00-20.00 [facility] Comment on above: Performed By: #### B MP, CBC, LIPASE, HEPATIC #### [address] Monocytes/100 WBC (Bld) 4.2 % Normal . [facility] Comment on above: Performed By: #### B MP, CBC, LIPASE, HEPATIC #### [address] Neutrophils (Bld) [#/Vol] 9.3 10*3/uL High 1.8-7.7 [facility] Comment on above: Performed By: #### B MP, CBC, LIPASE, HEPATIC #### [facility] [address] Neutrophils/100 WBC (Bld) 86.3 % Normal . [facility] Comment on above: Performed By: #### B MP, CBC, LIPASE, HEPATIC #### [facility] [address] NRBC% 0.1 /100{WBC} Normal 0-0.5 [facility] Comment on above: Performed By: #### B MP, CBC, LIPASE, HEPATIC #### [address] Platelet mean volume (Bld) [Entitic vol] 7.6 fL Normal 6.3-10.7 [facility] Comment on above: Performed By: #### B MP, CBC, LIPASE, HEPATIC #### [address] Platelets (Bld) [#/Vol] 332 10*3/uL Normal 150-450 [facility] Comment on above: Performed By: #### B MP, CBC, LIPASE, HEPATIC #### [address] RBC (Bld) [#/Vol] 5.16 10*6/uL High 3.60-5.00 [facility] Comment on above: Performed By: #### B MP, CBC, LIPASE, HEPATIC #### [address] WBC (Bld) [#/Vol] 10.7 10*3/uL Normal 3.8-11.6 [facility] Comment on above: Performed By: #### B MP, CBC, LIPASE, HEPATIC #### [address] Creatine Kinaseon 05-15-2022 CK [Catalytic activity/Vol] 94 U/L Normal 22-269 [facility] Comment on above: Performed By: #### B MP, CBC, LIPASE, HEPATIC #### [facility] [address] [place] [id number] [place] Creatine kinase [Enzymatic a ctivity/volume] in Serum or PlasmaOrdered By: Keith Griffith on 05-15-2022 CK [Catalytic activity/Vol] 94 U/L [facility] Creatine kinase.MB [Mass/vol ume] in Serum or PlasmaOrdered By: Keith Griffith on 05-15-2022 CK.MB [Mass/Vol] 3.1 ng/mL 0.6-6.3 [facility] Creatinine Kinase MBon 05-15 CK.MB [Mass/Vol] 3.1 ng/mL Normal 0.6-6.3 [facility] Comment on above: Performed By: #### B MP, CBC, LIPASE, HEPATIC #### [facility] [address] [place] [address] [place] CKMB Relative Index 3.2 % High 0.00-2.50 [facility] Comment on above: Performed By: #### B MP, CBC, LIPASE, HEPATIC #### [facility] [address] [place] [id number] [place] Creatinine and Glomerular fi ltration rate.predicted panel (S/P/Bld)Ordered By: Keith Griffith on 05-15-2022 Creatinine [Mass/Vol] 0.98 mg/dL 0.44-1.03 [facility] Direct bilirubin measurement Ordered By: Keith Griffith on 05-15-2022 Bilirubin.direct [Mass/Vol] 0.1 mg/dL 0.0-0.4 [facility] ECG 12 lead ECGon 05-15-2022 ECG 12 lead ECG [facility] [address] [place] [address] [place] [address] Electrocardiograph Report Signed Patient: Gerry Victoria MR#: [id number] 10 : 1955 Acct:[id number] Age/Sex: 66 / F ADM Date: 05/15/22 Loc: ER Room: Type: [facility] ER Attending Dr: Ordering Provider: [...] AVF, V3-V6 Confirmed by Connie Cote DO ([id number]) on 05/16/2022 7:08:50 AM Referred By: Electronically Signed By:Connie Cote DO Transcribed By: MUS Signed By Connie Cote DO 0708 [facility] ECG 12 [place] [address] Electrocardiograph Report Signed Patient: Gerry Victoria MR#: [id number] 10 : 1955 Acct:[id number] Age/Sex: 66 / F ADM Date: 05/15/22 Loc: ER Room: Type: [facility] ER Attending Dr: Ordering Provider: [...] and V3-V6 Confirmed by Connie Cote DO ([id number]) on 05/16/2022 7:09:34 AM Referred By: Electronically Signed By:Connie Cote DO Transcribed By: MUS Signed By Connie Cote DO 0709 [facility] ECG 12 lead ECG [facility] Main [place] [id number] Electrocardiograph Report Signed Patient: Gerry Victoria MR#: [id number] 10 : 1955 Acct:[id number] Age/Sex: 66 / F ADM Date: 05/15/22 Loc: ER Room: Type: [facility] ER Attending Dr: Ordering Provider: [...] sinus rhythm Confirmed by Connie Cote DO ([id number]) on 05/16/2022 7:09:47 AM Referred By: Electronically Signed By:Connie Cote DO Transcribed By: MUS Signed By Connie Cote DO 0709 Normal [facility] Eosinophils Auto (Bld) [#/Vo l]Ordered By: Keith Griffith on 05-15-2022 Eosinophils (Bld) [#/Vol] 0.0 10*3/uL 0.0-0.45 [facility] Eosinophils/100 WBC Auto (Bl d)Ordered By: Keith Griffith on 05-15-2022 Eosinophils/100 WBC (Bld) 0.3 % . [facility] Erythrocyte distribution wid th Auto (RBC) [Ratio]Ordered By: Keith Griffith on 05-15-2022 Erythrocyte distribution width (RBC) [Ratio] 15.2 % 11.9-15.3 [facility] Estimated glomerular filtrat ion rate (GFR) non- AmericanOrdered By: Keith Griffith on 05-15-2022 GFR/1.73 sq M.predicted among non-blacks MDRD (S/P/Bld) [Vol rate/Area] 56 mL/Min [facility] Globulin Calc (S) [Mass/Vol] Ordered By: Keith Griffith on 05-15-2022 Globulin (S) [Mass/Vol] 3.6 g/dL [facility] Hematocrit Auto (Bld) [Volum e fraction]Ordered By: Keith Griffith on 05-15-2022 Hematocrit (Bld) [Volume fraction] 42.8 % 34.0-46.4 [facility] Hemoglobin [Mass/volume] in BloodOrdered By: Keith Griffith on 05-15-2022 Hemoglobin (Bld) [Mass/Vol] 14.1 g/dL 11.8-15.4 [facility] Hepatic Panelon 05-15-2022 Albumin [Mass/Vol] 4.4 g/dL Normal 3.2-5.5 [facility] Comment on above: Performed By: #### B MP, CBC, LIPASE, HEPATIC #### [facility] [address] [place] [id number] [place] Albumin/Globulin [Mass ratio] 1.2 {ratio} Normal [facility] Comment on above: Performed By: #### B MP, CBC, LIPASE, HEPATIC #### [facility] [address] [place] [address] [place] ALP [Catalytic activity/Vol] 92 U/L Normal 32-92 [facility] Comment on above: Performed By: #### B MP, CBC, LIPASE, HEPATIC #### [facility] [address] [place] [address] [place] ALT [Catalytic activity/Vol] 17 U/L Normal 10-60 [facility] Comment on above: Performed By: #### B MP, CBC, LIPASE, HEPATIC #### [facility] [address] [place] [address] [place] AST [Catalytic activity/Vol] 26 U/L Normal 10-42 [facility] Comment on above: Performed By: #### B MP, CBC, LIPASE, HEPATIC #### [facility] [address] [place] [address] [place] Bilirubin [Mass/Vol] 0.6 mg/dL Normal 0.3-1.2 [facility] Comment on above: Performed By: #### B MP, CBC, LIPASE, HEPATIC #### [facility] [address] [place] [address] [place] Bilirubin,Indirect 0.5 mg/dL Normal [facility] Comment on above: Performed By: #### B MP, CBC, LIPASE, HEPATIC #### [facility] [address] Bilirubin.indirect [Mass/Vol] 0.1 mg/dL Normal 0.0-0.4 [facility] Comment on above: Performed By: #### B MP, CBC, LIPASE, HEPATIC #### [facility] [address] Globulin (S) [Mass/Vol] 3.6 g/dL Normal [facility] Comment on above: Performed By: #### B MP, CBC, LIPASE, HEPATIC #### [facility] [address] Protein [Mass/Vol] 8.0 g/dL High 6.1-7.9 [facility] Comment on above: Performed By: #### B MP, CBC, LIPASE, HEPATIC #### [facility] [address] Ketones Auto test strip (U) [Mass/Vol]Ordered By: Keith Griffith on 05-15-2022 Ketones (U) [Mass/Vol] Negative Negative [facility] - Chemistry and C hemistry - challengeOrdered By: Keith Griffith on 05-15-2022 Lipase [Catalytic activity/Vol] 23.0 U/L 22-51 [facility] Natriuretic peptide B (Bld) [Mass/Vol] 365.0 pg/mL 5-100 [facility] - CoagulationOrde red By: Keith Griffith on 05-15-2022 PT Coag (PPP) [Time] 10.7 s 9.0-12.9 [facility] Lactic Acidon 05-15-2022 Lactate [Moles/Vol] 1.5 mmol/L Normal 0.5-2.2 [facility] Comment on above: Result Comment: PERF ORMED BY: [place] [address] PATHOLOGIST FEATHER MAKER WILDER BOTELLO M.D. Performed By: #### B MP, CBC, LIPASE, HEPATIC #### [address] Leukocytes [#/volume] correc poly for nucleated erythrocytes in Blood by Automated counOrdered By: Keith Griffith on 05-15-2022 WBC corrected for nucl RBC Auto (Bld) [#/Vol] 10.7 10*3/uL 3.8-11.6 [facility] Lipaseon 05-15-2022 Lipase [Catalytic activity/Vol] 23.0 U/L Normal 22-51 [facility] Comment on above: Result Comment: PERF ORMED BY: [facility] [address] [place] [address] PATHOLOGIST FEATHER MAKER WILDER BOTELLO M.D. Performed By: #### B MP, CBC, LIPASE, HEPATIC #### [address] Lymphocytes Auto (Bld) [#/Vo l]Ordered By: Keith Griffith on 05-15-2022 Lymphocytes (Bld) [#/Vol] 0.9 10*3/uL 1.00-4.8 [facility] Lymphocytes/100 WBC Auto (Bl d)Ordered By: Keith Griffith on 05-15-2022 Lymphocytes/100 WBC (Bld) 8.6 % . [facility] MCH Auto (RBC) [Entitic mass ]Ordered By: Keith Griffith on 05-15-2022 MCH (RBC) [Entitic mass] 27.4 pg 24.7-34.3 [facility] MCHC Auto (RBC) [Mass/Vol]Or dered By: Keith Griffith on 05-15-2022 MCHC (RBC) [Mass/Vol] 33.0 g/dL 32.0-35.0 [facility] MCV Auto (RBC) [Entitic vol] Ordered By: Keith Griffith on 05-15-2022 MCV (RBC) [Entitic vol] 83.0 fL 80-100 [facility] Monocyte distribution width [Entitic volume] in Blood by AutomatedOrdered By: Keith Griffith on 05-15-2022 Monocyte distribution width Auto (Bld) [Entitic vol] 15.42 % 0.00-20.00 [facility] Monocytes Auto (Bld) [#/Vol] Ordered By: Keith Griffith on 05-15-2022 Monocytes (Bld) [#/Vol] 0.5 10*3/uL 0.0-0.8 [facility] Monocytes/100 WBC Auto (Bld) Ordered By: Keith Griffith on 05-15-2022 Monocytes/100 WBC (Bld) 4.2 % . [facility] Neutrophils Auto (Bld) [#/Vo l]Ordered By: Keith Griffith on 05-15-2022 Neutrophils (Bld) [#/Vol] 9.3 10*3/uL 1.8-7.7 [facility] Neutrophils/100 WBC Auto (Bl d)Ordered By: Keith Griffith on 05-15-2022 Neutrophils/100 WBC (Bld) 86.3 % . [facility] Nitrite Test strip Ql (U)Ord ered By: Keith Griffith on 05-15-2022 Nitrite Ql (U) Negative Negative [facility] No Panel InformationOrdered By: Keith Griffith on 05-15-2022 Estimated GFR () > 60 mL/Min [facility] Comment on above: GFR estimated refere nce range: According to KDOQI guidelines, <60 ml/min/1.73m2 is sufficient to diagnose a patient with chronic kidney disease. Pharmacy Creatinine Clearance (Chem 51.97 [facility] Nucleated erythrocytes [Pres ence] in Blood by Automated countOrdered By: Keith Griffith on 05-15-2022 Nucleated RBC Auto Ql (Bld) 0.1 /100{WBC} 0-0.5 [facility] Partial Thromboplastin Timeo n 05-15-2022 aPTT Coag (Bld) [Time] 29.6 s Normal 25.1-36.5 [facility] Comment on above: Result Comment: PERF ORMED BY: [place] [address] PATHOLOGIST FEATHER MAKER WILDER BOTELLO M.D. Performed By: #### B MP, CBC, LIPASE, HEPATIC #### [address] Platelet mean volume Auto (B ld) [Entitic vol]Ordered By: Keith Griffith on 05-15-2022 Platelet mean volume (Bld) [Entitic vol] 7.6 fL 6.3-10.7 [facility] Platelet poor plasma interna tional normalized ratio (INR) by coagulation assay (relatOrdered By: Keith Griffith on 05-15-2022 INR Coag (PPP) [Relative time] 0.9 {INR} [facility] Comment on above: INR Therapeutic Rang [...] 05-15-2022 Platelets (Bld) [#/Vol] 332 10*3/uL 150-450 [facility] Protein Auto test strip (U) [Mass/Vol]Ordered By: Keith Griffith on 05-15-2022 Protein (U) [Mass/Vol] Negative Negative [facility] Protein [Mass/volume] in Ser um or PlasmaOrdered By: Keith Griffith on 05-15-2022 Protein [Mass/Vol] 8.0 g/dL 6.1-7.9 [facility] Prothrombin Time INRon 05-15 INR Coag (PPP) [Relative time] 0.9 {INR} Normal [facility] Comment on above: Result Comment: INR [...] CBC, LIPASE, HEPATIC #### [facility] [address] PT Coag (PPP) [Time] 10.7 s Normal 9.0-12.9 [facility] Comment on above: Performed By: #### B MP, CBC, LIPASE, HEPATIC #### [facility] [address] [place] [id number] [facility] RBC Auto (Bld) [#/Vol]Ordere d By: Keith Griffith on 05-15-2022 RBC (Bld) [#/Vol] 5.16 10*6/uL 3.60-5.00 [facility] Serum or plasma alanine kirkpatrick otransferase measurement without P-5'-P (enzymatic activiOrdered By: Keith Griffith on 05-15-2022 ALT No additional P-5'-P [Catalytic activity/Vol] 17 U/L 10-60 [facility] Serum or plasma albumin/glob ulin mass ratioOrdered By: Keith Griffith on 05-15-2022 Albumin/Globulin [Mass ratio] 1.2 {ratio} [facility] Serum or plasma alkaline kami sphatase measurement (enzymatic activity/volume)Ordered By: Keith Griffith on 05-15-2022 ALP [Catalytic activity/Vol] 92 U/L 32-92 [facility] Serum or plasma anion gap de terminationOrdered By: Keith Griffith on 05-15-2022 Anion gap [Moles/Vol] 13.5 mmol/L 6.0-15.0 [facility] Serum or plasma aspartate am inotransferase measurement (enzymatic activity/volume)Ordered By: Keith Griffith on 05-15-2022 AST [Catalytic activity/Vol] 26 U/L 10-42 [facility] Serum or plasma calcium ventura urement (mass/volume)Ordered By: Keith Griffith on 05-15-2022 Calcium [Mass/Vol] 8.9 mg/dL 8.2-10.2 [facility] Serum or plasma chloride alfie surement (moles/volume)Ordered By: Keith Griffith on 05-15-2022 Chloride [Moles/Vol] 98 mmol/L 95-114 [facility] Serum or plasma creatine kin ase MB (CKMB)/total creatine kinase (CK) ratio by calculaOrdered By: Keith Griffith on 05-15-2022 CK.MB Calc [Catalytic fraction] 3.2 % 0.00-2.50 [facility] Serum or plasma glucose ventura urement (mass/volume)Ordered By: Keith Griffith on 05-15-2022 Glucose [Mass/Vol] 126 mg/dL 70-100 [facility] Comment on above: ADA recommended refe rence rangeRandom Glucose Reference Range is dependent on time and content of last meal. Glucose of more than 200 mg/dL in a nonstressed, ambulatory subject supports the diagnosis of Diabetes Mellitus. Serum or plasma non-glucuron idated bilirubin measurement (mass/volume)Ordered By: Keith Griffith on 05-15-2022 Bilirubin.indirect [Mass/Vol] 0.5 mg/dL [facility] Serum or plasma potassium me asurement (moles/volume)Ordered By: Keith Griffith on 05-15-2022 Potassium [Moles/Vol] 3.2 mmol/L 3.5-5.1 [facility] Serum or plasma sodium measu rement (moles/volume)Ordered By: Keith Griffith on 05-15-2022 Sodium [Moles/Vol] 134 mmol/L 136-146 [facility] Serum or plasma total biliru bin measurement (mass/volume)Ordered By: Keith Griffith on 05-15-2022 Bilirubin [Mass/Vol] 0.6 mg/dL 0.3-1.2 [facility] Serum or plasma total carbon dioxide measurement (moles/volume)Ordered By: Keith Griffith on 05-15-2022 CO2 [Moles/Vol] 25.7 mmol/L 22.0-30.0 [facility] Serum or plasma urea nitroge n measurement (mass/volume)Ordered By: Keith Griffith on 05-15-2022 Urea nitrogen [Mass/Vol] 7 mg/dL 9- [facility] Specific gravity Auto test s trip (U) [Rel density]Ordered By: Keith Griffith on 05-15-2022 Specific gravity (U) [Rel density] 1.045 1.001-1.03 0 [facility] Troponin I High Sensitivityo n 05-15-2022 Troponin I High Sensitivity 381 pg/mL Off scale high 0-15 [facility] Comment on above: Result Comment: Crit ical value result called at 2153 on 05/15/22 PERFORMED BY: [facility] [address] [place] [address] PATHOLOGIST FEATHER MAKER WILDER BOTELLO M.D. Performed By: #### H S TROP #### [facility] [address] Troponin I High Sensitivity 139 pg/mL Off scale high 0-15 [facility] Comment on above: Result Comment: Crit ical value result called at 1908 on 05/15/22 PERFORMED BY: [place] [address] PATHOLOGIST FEATHER MAKER WILDER BOTELLO M.D. Performed By: #### B MP, CBC, LIPASE, HEPATIC #### [address] Troponin I.cardiac [Mass/vol ume] in Serum or Plasma by High sensitivity methodOrdered By: Keith Griffith on 05-15-2022 Troponin I.cardiac High sensitivity method [Mass/Vol] 381 pg/mL 0-15 [facility] Comment on above: Critical valueresult calledat 2153 on 05/15/22 Urinalysison 05-15-2022 Appearance (U) Clear Normal Clear [facility] Comment on above: Order Comment: Name Collection Type:: Straight Catheter Performed By: #### B MP, CBC, LIPASE, HEPATIC #### [place] [address] [place] Bilirubin,Urine Negative Normal Negative [facility] Comment on above: Order Comment: Name Collection Type:: Straight Catheter Performed By: #### B MP, CBC, LIPASE, HEPATIC #### [facility] [address] [place] [address] [place] Color (U) Yellow Normal Yellow [facility] Comment on above: Order Comment: Name Collection Type:: Straight Catheter Performed By: #### B MP, CBC, LIPASE, HEPATIC #### [place] [address] [place] Glucose Ql (U) Normal Normal Normal [facility] Comment on above: Order Comment: Name Collection Type:: Straight Catheter Performed By: #### B MP, CBC, LIPASE, HEPATIC #### [place] [address] [place] Ketones Ql (U) Negative Normal Negative [facility] Comment on above: Order Comment: Name Collection Type:: Straight Catheter Performed By: #### B MP, CBC, LIPASE, HEPATIC #### [address] Leukocyte esterase Test strip Ql (U) Negative Normal Negative [facility] Comment on above: Order Comment: Name Collection Type:: Straight Catheter Performed By: #### B MP, CBC, LIPASE, HEPATIC #### [address] Nitrite,Urine Negative Normal Negative [facility] Comment on above: Order Comment: Name Collection Type:: Straight Catheter Performed By: #### B MP, CBC, LIPASE, HEPATIC #### [address] Occult Blood,Urine Negative Normal Negative [facility] Comment on above: Order Comment: Name Collection Type:: Straight Catheter Result Comment: PERF ORMED BY: [place] [address] PATHOLOGIST FEATHER MAKER WILDER BOTELLO M.D. Performed By: #### B MP, CBC, LIPASE, HEPATIC #### [address] pH (U) 7.0 [pH] Normal 5.0-9.0 [facility] Comment on above: Order Comment: Name Collection Type:: Straight Catheter Performed By: #### B MP, CBC, LIPASE, HEPATIC #### [address] Protein,Urine Negative Normal Negative [facility] Comment on above: Order Comment: Name Collection Type:: Straight Catheter Performed By: #### B MP, CBC, LIPASE, HEPATIC #### [address] Specificy [place],Urine 1.045 High 1.001-1.03 0 [facility] Comment on above: Order Comment: Name Collection Type:: Straight Catheter Performed By: #### B MP, CBC, LIPASE, HEPATIC #### [address] Urobilinogen,Urine Normal Normal Normal [facility] Comment on above: Order Comment: Name Collection Type:: Straight Catheter Performed By: #### B MP, CBC, LIPASE, HEPATIC #### [facility] [address] [place] [address] [facility] Urine clarity by refractomet ry automatedOrdered By: Keith Griffith on 05-15-2022 Clarity Refractometry automated (U) Clear Clear [facility] Urine glucose measurement by automated test strip (mass/volume)Ordered By: Keith Griffith on 05-15-2022 Glucose Auto test strip (U) [Mass/Vol] Normal mg/dL Normal [facility] Urine hemoglobin detection b y automated test stripOrdered By: Keith Griffith on 05-15-2022 Hemoglobin Auto test strip Ql (U) Negative Negative [facility] Urine lactic acid measuremen tOrdered By: Keith Griffith on 05-15-2022 Lactate (U) [Moles/Vol] 1.5 mmol/L 0.5-2.2 [facility] Urine leukocyte esterase det ection by automated test stripOrdered By: Keith Griffith on 05-15-2022 Leukocyte esterase Auto test strip Ql (U) Negative Negative [facility] Urobilinogen Auto test strip (U) [Mass/Vol]Ordered By: Keith Griffith on 05-15-2022 Urobilinogen (U) [Mass/Vol] Normal mg/dL Normal [facility] WBC Auto (Bld) [#/Vol]Ordere d By: Keith Griffith on 05-15-2022 WBC (Bld) [#/Vol] 10.7 10*3/uL 3.8-11.6 [facility] XR chest 1V portableon 05-15 XR chest 1V portable [facility] [address] [place] [address] XRay Report Signed Patient: Gerry Victoria MR#: [id number] 10 : 1955 Acct:[id number] Age/Sex: 66 / F ADM Date: 05/15/22 [...] Ann Jr., D.OJack05/15/2022 5:33 PM Dictation Location: [place] [address] Transcribed By: [facility] 05/15/221732 Dictated By: Nicholas Ann Jr, DO 05/15/221731 Signed By: 05/15/221732 Normal [facility] pH Auto test strip (U)Ordere d By: Keith Griffith on 05-15-2022 pH (U) 7.0 [pH] 5.0-9.0 [facility] XR wrist LT min 3V*on 2022 XR wrist LT min 3V* [facility] [place] [address] XRay Report Signed Patient: Gerry Victoria MR#: [id number] 10 : 1955 Acct:[id number] Age/Sex: 66 / F ADM Date: 04/06/22 Loc: ICXD Room: Type: [facility] Attending Dr: Ephraim Casanova REAL ESTATE MANAGEMENT SPECIALIST Copies to: Ephraim Casanova APRN - EPHRAIM TITUS RN, MSN Ordering Provider: EPHRAIM CASANOVA RN, MSN Date of Service: 04/06/22 XR/XR wrist LT min 3V*: radiculopathy;Left wrist pain ([id number]) XR/XR cervical spine 5V*: radiculopathy;Cervical radiculopathy CERVICAL [...] PROCESS. Impression dictated by: Nicholas Ann Jr., DJackOJack04/06/2022 4:20 PM Dictation Location: [place] [address] Transcribed By: [facility] 04/06/22 1620 Dictated By: Nicholas Ann Jr, DO 04/06/22 1618 Signed By: 04/06/22 1620 Normal [facility] Basophils Auto (Bld) [#/Vol] Ordered By: Ward Zuniga on 01-03-2022 Basophils (Bld) [#/Vol] 0.0 10*3/uL 0.0-0.2 [facility] Basophils/100 WBC Auto (Bld) Ordered By: Ward Zuniga on 01-03-2022 Basophils/100 WBC (Bld) 0.9 % . [facility] Blood hemoglobin measurement (mass/volume)Ordered By: Ward Zuniga on 01-03-2022 Hemoglobin (Bld) [Mass/Vol] 11.2 g/dL 11.8-15.4 [facility] Blood leukocytes automated c ount (number/volume)Ordered By: Ward Zuniga on 01-03-2022 WBC (Bld) [#/Vol] 4.8 10*3/uL 4.5-11.0 [facility] Body fluid albumin measureme nt (mass/volume)Ordered By: Ward Zuniga on 01-03-2022 Albumin (Body fld) [Mass/Vol] 3.6 g/dL 3.2-5.5 [facility] Cholesterol [Mass/volume] in Serum or PlasmaOrdered By: Ward Zuniga on 01-03-2022 Cholesterol [Mass/Vol] 186 mg/dL 140-200 [facility] Comment on above: Chol less than 200 m g/dl low riskChol 201-239 mg/dl borderline riskChol 240 mg/dl and greater high risk Cholesterol in LDL Calc [Mas s/Vol]Ordered By: Ward Zuniga on 01-03-2022 Cholesterol in LDL [Mass/Vol] 117 mg/dL 0-100 [facility] Comment on above: LDL ATP III CLASSIFI CATIONLDL less than 100 mg/dL OptimalLDL 100-129 mg/dL Near or above optimalLDL 130-159 mg/dL Borderline highLDL 160-189 mg/dL HighLDL greater than 189 mg/dL Very high Cholesterol in VLDL Calc [Ma ss/Vol]Ordered By: Ward Zuniga on 01-03-2022 Cholesterol in VLDL [Mass/Vol] 18 mg/dL [facility] Creatinine and Glomerular fi ltration rate.predicted panel (S/P/Bld)Ordered By: Ward Zuniga on 01-03-2022 Creatinine [Mass/Vol] 0.91 mg/dL 0.44-1.03 [facility] Eosinophils Auto (Bld) [#/Vo l]Ordered By: Wadr Zuniga on 01-03-2022 Eosinophils (Bld) [#/Vol] 0.1 10*3/uL 0.0-0.45 [facility] Eosinophils/100 WBC Auto (Bl d)Ordered By: Ward Zuniga on 01-03-2022 Eosinophils/100 WBC (Bld) 2.6 % . [facility] Erythrocyte distribution wid th Auto (RBC) [Ratio]Ordered By: Ward Zuniga on 01-03-2022 Erythrocyte distribution width (RBC) [Ratio] 14.4 % 11.9-15.3 [facility] Estimated glomerular filtrat ion rate (GFR) non- AmericanOrdered By: Ward Zuniga on 01-03-2022 GFR/1.73 sq M.predicted among non-blacks MDRD (S/P/Bld) [Vol rate/Area] > 60 mL/Min [facility] Globulin Calc (S) [Mass/Vol] Ordered By: Ward Zuniga on 01-03-2022 Globulin (S) [Mass/Vol] 2.5 g/dL [facility] Hematocrit Auto (Bld) [Volum e fraction]Ordered By: Ward Zuniga on 01-03-2022 Hematocrit (Bld) [Volume fraction] 34.5 % 34.0-46.4 [facility] Laboratory - Hematology and Cell countsOrdered By: Ward Zuniga on 01-03-2022 Nucleated RBC/100 WBC (Bld) [Ratio] 0.1 % 0-0.5 [facility] Lymphocytes Auto (Bld) [#/Vo l]Ordered By: Ward Zuniga on 01-03-2022 Lymphocytes (Bld) [#/Vol] 1.6 10*3/uL 1.00-4.8 [facility] Lymphocytes/100 WBC Auto (Bl d)Ordered By: Ward Zuniga on 01-03-2022 Lymphocytes/100 WBC (Bld) 33.6 % . [facility] MCH Auto (RBC) [Entitic mass ]Ordered By: Ward Zuniga on 01-03-2022 MCH (RBC) [Entitic mass] 26.9 pg 24.7-34.3 [facility] MCHC Auto (RBC) [Mass/Vol]Or dered By: Ward Zuniga on 01-03-2022 MCHC (RBC) [Mass/Vol] 32.6 g/dL 32.0-35.0 [facility] MCV Auto (RBC) [Entitic vol] Ordered By: Ward Zuniga on 01-03-2022 MCV (RBC) [Entitic vol] 82.4 fL 80-100 [facility] Monocytes Auto (Bld) [#/Vol] Ordered By: Ward Zuniga on 01-03-2022 Monocytes (Bld) [#/Vol] 0.4 10*3/uL 0.0-0.8 [facility] Monocytes/100 WBC Auto (Bld) Ordered By: Ward Zuniga on 01-03-2022 Monocytes/100 WBC (Bld) 7.5 % . [facility] Neutrophils Auto (Bld) [#/Vo l]Ordered By: Ward Zuniga on 01-03-2022 Neutrophils (Bld) [#/Vol] 2.6 10*3/uL 1.8-7.7 [facility] Neutrophils/100 WBC Auto (Bl d)Ordered By: Ward Zuniga on 01-03-2022 Neutrophils/100 WBC (Bld) 55.4 % . [facility] No Panel InformationOrdered By: Ward Zuniga on 01-03-2022 Estimated GFR () > 60 mL/Min [facility] Comment on above: GFR estimated refere nce range: According to KDOQI guidelines, <60 ml/min/1.73m2 is sufficient to diagnose a patient with chronic kidney disease. Pharmacy Creatinine Clearance (Chem N/A [facility] Platelet mean volume Auto (B ld) [Entitic vol]Ordered By: Ward Zuniga on 01-03-2022 Platelet mean volume (Bld) [Entitic vol] 7.5 fL 6.3-10.7 [facility] Platelets Auto (Bld) [#/Vol] Ordered By: Ward Zuniga on 01-03-2022 Platelets (Bld) [#/Vol] 288 10*3/uL 150-450 [facility] Protein [Mass/volume] in Ser um or PlasmaOrdered By: Ward Zuniga on 01-03-2022 Protein [Mass/Vol] 6.1 g/dL 6.1-7.9 [facility] RBC Auto (Bld) [#/Vol]Ordere d By: Ward Zuniga on 01-03-2022 RBC (Bld) [#/Vol] 4.18 10*6/uL 3.60-5.00 [facility] Serum or plasma alanine kirkpatrick otransferase measurement without P-5'-P (enzymatic activiOrdered By: Ward Zuniga on 01-03-2022 ALT No additional P-5'-P [Catalytic activity/Vol] 12 U/L [facility] Serum or plasma albumin/glob ulin mass ratioOrdered By: Ward Zuniga on 01-03-2022 Albumin/Globulin [Mass ratio] 1.4 {ratio} [facility] Serum or plasma alkaline kami sphatase measurement (enzymatic activity/volume)Ordered By: Ward Zuniga on 01-03-2022 ALP [Catalytic activity/Vol] 65 U/L 32-92 [facility] Serum or plasma anion gap de terminationOrdered By: Ward Zuniga on 01-03-2022 Anion gap [Moles/Vol] 15.0 mmol/L 6.0-15.0 [facility] Serum or plasma aspartate am inotransferase measurement (enzymatic activity/volume)Ordered By: Ward Zuniga on 01-03-2022 AST [Catalytic activity/Vol] 16 U/L [facility] Serum or plasma calcium ventura urement (mass/volume)Ordered By: Ward Zuniga on 01-03-2022 Calcium [Mass/Vol] 8.9 mg/dL 8.2-10.2 [facility] Serum or plasma chloride alfie surement (moles/volume)Ordered By: Ward Zuniga on 01-03-2022 Chloride [Moles/Vol] 101 mmol/L 95-114 [facility] Serum or plasma glucose ventura urement (mass/volume)Ordered By: Ward Zuniga on 01-03-2022 Glucose [Mass/Vol] 86 mg/dL 70-100 [facility] Comment on above: ADA recommended refe rence rangeRandom Glucose Reference Range is dependent on time and content of last meal. Glucose of more than 200 mg/dL in a nonstressed, ambulatory subject supports the diagnosis of Diabetes Mellitus. Serum or plasma high density lipoprotein (HDL) cholesterol measurementOrdered By: Ward Zuniga on 01-03-2022 Cholesterol in HDL [Mass/Vol] 51 mg/dL 35-85 [facility] Comment on above: HDL CHOL ATP-III CLA SSIFICATION Cardiovascular RiskHDL > or equal to 60 mg/dL LOWHDL < 40 mg/dL HIGH Serum or plasma potassium me asurement (moles/volume)Ordered By: Ward Zuniga on 01-03-2022 Potassium [Moles/Vol] 4.0 mmol/L 3.5-5.1 [facility] Serum or plasma sodium measu rement (moles/volume)Ordered By: Ward Zuniga on 01-03-2022 Sodium [Moles/Vol] 140 mmol/L 136-146 [facility] Serum or plasma total biliru bin measurement (mass/volume)Ordered By: Ward Zuinga on 01-03-2022 Bilirubin [Mass/Vol] 0.5 mg/dL 0.3-1.2 [facility] Serum or plasma total carbon dioxide measurement (moles/volume)Ordered By: Ward Zuniga on 01-03-2022 CO2 [Moles/Vol] 28.0 mmol/L 22.0-30.0 [facility] Serum or plasma total choles terol/high density lipoprotein (HDL) cholesterol mass ratOrdered By: Ward Zuniga on 01-03-2022 Cholesterol.total/Chol esterol in HDL [Mass ratio] 3.6 {ratio} <5.0 [facility] Serum or plasma urea nitroge n measurement (mass/volume)Ordered By: Ward Zuniga on 01-03-2022 Urea nitrogen [Mass/Vol] 6 mg/dL 9-23 [facility] TSH DL <= 0.005 mIU/L QnOrde red By: Ward Zuniga on 01-03-2022 TSH Qn 0.17 m[IU]/L 0.45-5.33 [facility] Triglyceride [Mass/volume] i n Serum or PlasmaOrdered By: Ward Zuniga on 01-03-2022 Triglyceride [Mass/Vol] 91 mg/dL 35-149 [facility] Comment on above: TRIG ATP III CLASSIF ICATIONTRIG less than 150 mg/dL NormalTRIG 150-199 mg/dL Borderline highTRIG 200-500 mg/dL High TRIG greater than 500 mg/dL Very highStandard traceable to the Center for Disease Conrtrol and Prevention (CDC) test method. COVID-19 Positive/NegativeOr dered By: Molina Villanueva on 12-15-2021 SARS-CoV-2 (COVID-19) N gene ROXANA+probe Ql (Resp) Negative Negative [facility] Comment on above: Testing for SARS-CoV -2 by RT-PCR This test was developed and its performance characteristics determined by [employer] ([employer]) and validated at the [facility]. This test has not been FDA [...] characteristics determined by [employer] ([employer]) and validated at the [facility]. This test has not been FDA [...] BUN/CREA 11 NOT APPLICABLE Normal 6-22 Chapito smith [place] [employer] Comment on above: Order Comment: [facility] performed at: [employer] [facility], [address] [place] [address], [address] [place] [address], [phone], Reading Teacher: Alli Parker MD [facility] Collection Date/Time: [facility] Results Received Date/Time: [id number] [facility] Reported Date/Time: [id number] Performed By: #### T , [id number] #### [facility] Default [address] [place] [address] Calcium [Mass/Vol] 8.9 mg/dL Normal 8.6-10.4 Ashley bacon [place] [employer] Comment on above: Order Comment: [facility] performed at: [employer] [facility], [address] [facility], [address] [place] [address], [phone], Reading Teacher: Alli Parker MD [facility] Collection Date/Time: [facility] Results Received Date/Time: [facility] Reported Date/Time: Performed By: #### T LUIS, [id number] #### [facility] [address] [place] [address] Chloride [Moles/Vol] 101 mmol/L Normal 98-110 [facility] Comment on above: Order Comment: [facility] performed at: [employer], [employer] [facility], [address] [facility], [address] [place] [address], [address] [place] [address], Reading Teacher: Alli Parker MD [facility] Collection Date/Time: [facility] Results Received Date/Time: [facility] Reported Date/Time: Performed By: #### T LUIS, [id number] #### [facility] [address] [place] [address] CO2 [Moles/Vol] 30 mmol/L Normal 20-32 [facility] Comment on above: Order Comment: [facility] performed at: [employer], [employer] [facility], [address] [facility], [address] [place] [address], [address] [place] [address], Reading Teacher: Alli Parker MD [facility] Collection Date/Time: [facility] Results Received Date/Time: [facility] Reported Date/Time: Performed By: #### Cornelius SMITH, [id number] #### [facility] Default [address] [place] [address] Creatinine [Mass/Vol] 0.94 mg/dL Normal 0.50-0.99 [facility] Comment on above: Order Comment: [facility] performed at: [employer], [employer] [facility], [address] [facility], [address] [place] [address], [address] [place] [address], Reading Teacher: Alli Parker MD [facility] Collection Date/Time: [facility] Results Received Date/Time: [facility] Reported Date/Time: Result Comment: For patients >49 years of age, the reference limit for Creatinine is approximately 13% higher for people identified as -[place]gu[place]. Performed By: #### T LUIS, [id number] #### [facility] Default [address] [place] [address] eGFRAA ([facility]) 73 mL/min/1.73m2 Normal > OR = 60 [facility] Specialist Comment on above: Order Comment: [facility] performed at: [employer], [employer] [facility], [address] [facility], [address] [place] [address], [address] [place] [address], Reading Teacher: Alli Parker MD [facility] Collection Date/Time: [facility] Results Received Date/Time: [facility] Reported Date/Time: Performed By: #### T LUIS, [id number] #### [facility] Default [address] [place] [address] eGFRNAA ([facility]) 63 mL/min/1.73m2 Normal > OR = 60 [facility] Specialist Comment on above: Order Comment: [facility] performed at: [employer], [employer] [facility], [address] [facility], [address] [place] [address], [address] [place] [address], Reading Teacher: Alli Parker MD [facility] Collection Date/Time: [facility] Results Received Date/Time: [facility] Reported Date/Time: Performed By: #### T LUIS, [id number] #### [facility] Default [address] [place] [address] Glucose [Mass/Vol] 82 mg/dL Normal 65-99 [facility] Specialist Comment on above: Order Comment: [facility] performed at: [employer], [employer] [facility], [address] , [address] [place] [address], [address] [place] [address], Reading Teacher: Alli Parker MD [facility] Collection Date/Time: [facility] Results Received Date/Time: [facility] Reported Date/Time: Result Comment: Fasting reference interval Performed By: #### T LUIS, [id number] #### [facility] Default [address] [place] [address] Potassium [Moles/Vol] 4.3 mmol/L Normal 3.5-5.3 [facility] Specialist Comment on above: Order Comment: [facility] performed at: [employer], [employer] [facility], [address] [place] [address], [address] [place] [address], [address] [place] [address], Reading Teacher: Alli Parker MD [facility] Date/Time: [facility] Results Received Date/Time: [facility] Reported Date/Time: Performed By: #### T LUIS, [id number] #### [facility] [address] [place] [address] Sodium [Moles/Vol] 138 mmol/L Normal 135-146 [facility] Specialist Comment on above: Order Comment: [facility] performed at: [employer], [employer] [facility], [address] [place] [address], [address] [place] [address], [address] [place] [address], Reading Teacher: Alli Parker MD [facility] Date/Time: [facility] Results Received Date/Time: [facility] Reported Date/Time: Performed By: #### T LUIS, [id number] #### [facility] Default [address] [place] [address] Urea nitrogen [Mass/Vol] 10 mg/dL Normal 7-25 [facility] [employer] Comment on above: Order Comment: [facility] performed at: [employer], [employer] [facility], [address] [place] [address], [address] [place] [address], [address] [place] [address], Reading Teacher: Alli Parker MD [facility] Collection Date/Time: [facility] Results Received Date/Time: [facility] Reported Date/Time: Performed By: #### T LUIS, [id number] #### [facility] Default [address] [place] [address] TSHon 07-05-2021 TSH Qn 0.07 m[IU]/L Low 0.40-4.50 [facility] [employer] Comment on above: Order Comment: [facility] performed at: [employer], [employer] [facility], [address] [place] [address], [address] [facility], [place], [phone], Reading Teacher: Alli Parker MD [facility] Collection Date/Time: [id number] [facility] Results Received Date/Time: [id number] [facility] Reported Date/Time: [id number] Performed By: #### T , [id number] #### [facility] Default [address] [place] [address] Screening Mammogram, Maral fernandez 03-02-2021 Screening Mammogram, [...] VERY IMPORTANT TO YOUR HEALTH. THE CURRENT [employer] GUIDELINES RECOMMEND ANNUAL MAMMOGRAPHY BEGINNING AT AGE 38. THIS FACILITY UTILIZES A REMINDER SYSTEM TO ENSURE ALL PATIENTS RECEIVE A REMINDER NOTIFICATION AT THE APPROPRIATE TIME BASED ON THE RECOMMENDATIONS OF THIS EXAM. 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 ACCREDITED BY THE [facility] AND FDA. Report reported and signed by Eladia Aviles on 03/03/2021 0945 Normal [facility] [employer] COVID-19 Positive/Negativeon 07-13-2020 SARS-CoV-2 (COVID-19) N gene ROXANA+probe Ql (Resp) Negative Negative [facility] Comment on above: Reference: NegativeT esting for SARS-CoV-2 by RT-PCRThis test was developed and its performance characteristics determined by Katarzyna, [employer] ([employer]) and validated at the [facility]. This test has not been FDA [...] (COVID-19) RNA ROXANA+probe Ql (Unsp spec) N/A [facility] Albumin [Mass/volume] in Ser um or Plasmaon 06-30-2020 Albumin [Mass/Vol] 3.6 g/dL 3.2-5.5 [facility] Basophils Auto (Bld) [#/Vol] on 06-30-2020 Basophils (Bld) [#/Vol] 0.0 10*3/uL 0.0-0.2 [facility] Basophils/100 WBC Auto (Bld) on 06-30-2020 Basophils/100 WBC (Bld) 0.8 % [facility] Bilirubin Auto test strip Ql (U)on 06-30-2020 Bilirubin Ql (U) Negative Negative [facility] Blood hemoglobin measurement (mass/volume)on 06-30-2020 Hemoglobin (Bld) [Mass/Vol] 12.1 g/dL 11.8-15.4 [facility] Blood leukocytes automated c ount (number/volume)on 06-30-2020 WBC (Bld) [#/Vol] 4.6 10*3/uL 4.5-11.0 [facility] Cholesterol [Mass/volume] in Serum or Plasmaon 06-30-2020 Cholesterol [Mass/Vol] 202 mg/dL 140-200 Fi [facility] Comment on above: Chol less than [...] (S/P/Bld)on 06-30-2020 Creatinine [Mass/Vol] 0.84 mg/dL 0.44-1.03 [facility] Eosinophils Auto (Bld) [#/Vo l]on 06-30-2020 [...] (U) [Mass/Vol] Negative [facility] Lymphocytes Auto (Bld) [#/Vo l]on 06-30-2020 Lymphocytes (Bld) [#/Vol] 1.4 10*3/uL 1.00-4.8 [facility] Lymphocytes/100 WBC Auto (Bl d)on 06-30-2020 Lymphocytes/100 WBC (Bld) 31.2 % [facility] MCH Auto (RBC) [Entitic mass ]on 06-30-2020 MCH (RBC) [Entitic mass] 28.9 pg 24.7-34.3 [facility] MCHC Auto (RBC) [Mass/Vol]on 06-30-2020 MCHC (RBC) [Mass/Vol] 33.7 g/dL 32.0-35.0 [facility] MCV Auto (RBC) [Entitic vol] on [...] (U) [Mass/Vol] Negative Negative [facility] Protein [Mass/volume] in Ser um or Plasmaon 06-30-2020 Protein [Mass/Vol] 5.9 g/dL 6.1-7.9 [facility] RBC Auto (Bld) [#/Vol]on RBC (Bld) [#/Vol] 4.18 10*6/uL 3.60-5.00 [facility] Serum or plasma alanine kirkpatrick [...] (mass/volume)on 06-30-2020 Calcium [Mass/Vol] 8.7 mg/dL 8.2-10.2 [facility] Serum or plasma chloride alfie surement (moles/volume)on 06-30-2020 Chloride [Moles/Vol] 101 mmol/L 95-114 [facility] Serum or plasma glucose ventura urement (mass/volume)on 06-30-2020 Glucose [Mass/Vol] 90 mg/dL 70-100 [facility] Comment on above: ADA recommended [...] (moles/volume)on 06-30-2020 Potassium [Moles/Vol] 4.1 mmol/L 3.5-5.1 [facility] Serum or plasma sodium measu rement (moles/volume)on 06-30-2020 Sodium [Moles/Vol] 139 mmol/L 136-146 [facility] Serum or plasma thyroid stim ulating hormone (TSH) measurement by high sensitivity meton 06-30-2020 TSH Qn 1.63 u[iU]/mL 0.45-5.33 [facility] Serum or plasma total biliru bin measurement (mass/volume)on 06-30-2020 Bilirubin [Mass/Vol] 0.6 mg/dL 0.3-1.2 [facility] Serum or plasma total carbon dioxide measurement (moles/volume)on 06-30-2020 CO2 [Moles/Vol] 28.7 mmol/L 22.0-30.0 [facility] Serum or plasma total choles terol/high density [...] (mass/volume)on 06-30-2020 Ketones (U) [Mass/Vol] Negative Negative [facility] Urine leukocyte esterase det ection by automated [...] (mass/volume)on 06-30-2020 Protein (U) [Mass/Vol] Negative Negative [facility] Urine total bilirubin detect ion by automated test stripon 06-30-2020 Bilirubin Ql (U) Negative Negative [facility] Urobilinogen Auto test strip (U) [Mass/Vol]on 06-30-2020 Urobilinogen (U) [Mass/Vol] Normal mg/dL Normal [facility] pH Auto test strip (U)on pH (U) 5.5 [pH] 5.0-9.0 [facility] pH (U) 1.030 [pH] 1.001-1.03 0 [facility] Amphetamines screenon 2020 Amphetamines Ql (U) Negative Negative [facility] Cannabinoids [Presence] in U rine by Screen [...] on 03-31-2020 Barbiturates Ql (U) Negative Negative [facility] Urine benzodiazepines detect ionon 03-31-2020 Benzodiazepines Ql (U) Negative Negative [facility] Urine cocaine detectionon Cocaine Ql (U) Negative Negative [facility] Urine phencyclidine detectio n by screening methodon 03-31-2020 Phencyclidine Ql (U) Negative Negative [facility] COVID-19 SOFIAon 03-30-2020 COVID-19 SHELBI Negative Negative [facility] Comment on above: This is a duplicate test result based off of the Shelbi SARS Antigen (MILDRED) test performed within the Microbiology department. Otheron 03-30-2020 SARS Antigen (LFIA) [facility] Vital Signs Date Time Vital Sign Value Performing Clinician Facility 05-09-2023 13:13-0500 Body mass index (BMI) [Ratio] 31.97 kg/m2 Ward Zuniga DO Work Phone: [facility] 05-09-2023 13:13-0500 Body weight 78.02 kg Ward Zuniga DO Work Phone: [facility] 05-09-2023 13:13-0500 Heart rate 77 /min Ward Zuniga DO Work Phone: [facility] 05-09-2023 13:13-0500 SaO2% (BldA) [Mass fraction] 97 % Ward Zuniga DO Work Phone: [facility] 05-08-2023 13:10-0500 Diastolic blood pressure 68 mm[Hg] Jaja Reddy MD Work Phone: [facility] 05-08-2023 13:10-0500 Heart rate 57 /min Jaja Reddy MD Work Phone: [facility] 05-08-2023 13:10-0500 Respiratory rate 12 /min Jaja Reddy MD Work Phone: [facility] 05-08-2023 13:10-0500 SaO2% (BldA) [Mass fraction] 88 % Jaja Reddy MD Work Phone: [facility] 05-08-2023 13:10-0500 Systolic blood pressure 126 mm[Hg] Jaja Reddy MD Work Phone: [facility] 05-08-2023 12:46-0500 Body temperature 97 [degF] Jaja Reddy MD Work Phone: [facility] 03-13-2023 14:26-0500 Body temperature 97.7 [degF] DO Ward Zuniga Work Phone: [facility] 03-13-2023 14:26-0500 Diastolic blood pressure 68 mm[Hg] DO Ward Zuniga Work Phone: [facility] 03-13-2023 14:26-0500 Heart rate 84 /min DO Ward Loomisman Work Phone: [facility] 03-13-2023 14:26-0500 Respiratory rate 18 /min DO Ward Zuniga Work Phone: [facility] 03-13-2023 14:26-0500 Systolic blood pressure 148 mm[Hg] DO Ward Zuniga Work Phone: [facility] 03-02-2023 13:09-0500 Blood Pressure Location [facility] 03-02-2023 13:09-0500 Body temperature 96.98 [degF] Ketty Orzech [facility] 03-02-2023 13:09-0500 Diastolic blood pressure 81 mm[Hg] Ketty Orzech [facility] 03-02-2023 13:09-0500 Heart rate 71 /min Ketty Orzech [facility] 03-02-2023 13:09-0500 Systolic blood pressure 128 mm[Hg] Ketty Orzech [facility] 02-27-2023 14:36-0500 Body height 154.94 cm DO Ward Zach Work Phone: [facility] 02-27-2023 14:36-0500 Body mass index (BMI) [Ratio] 31.1 kg/m2 DO Ward Zach Work Phone: [facility] 02-27-2023 14:36-0500 Body weight 74.84 kg DO Ward Zach Work Phone: [facility] 01-04-2023 13:32-0400 Body height 154.94 cm DO Ward Zach Work Phone: [facility] 01-04-2023 13:32-0400 Body mass index (BMI) [Ratio] 31.1 kg/m2 DO Ward Zach Work Phone: [facility] 01-04-2023 13:32-0400 Body weight 74.84 kg DO Ward Zach Work Phone: [facility] 01-04-2023 13:19-0400 Diastolic blood pressure 92 mm[Hg] DO Ward Zach Work Phone: [facility] 01-04-2023 13:19-0400 Heart rate 82 /min DO Ward Zuniga Work Phone: [facility] 01-04-2023 13:19-0400 Respiratory rate 18 /min DO Ward Zuniga Work Phone: [facility] 01-04-2023 13:19-0400 Systolic blood pressure 160 mm[Hg] DO Ward Zuniga Work Phone: [facility] 01-02-2023 09:45-0400 Body height 154.94 cm Wardjaquelin Mtz Other [facility] Other 01-02-2023 09:45-0400 Body mass index (BMI) [Ratio] 32.12 kg/m2 Ward Morenorer Other [facility] Other 01-02-2023 09:45-0400 Body temperature 97.8 [degF] Wardjaquelin Mtz Other [facility] Other 01-02-2023 09:45-0400 Body weight 77.11 kg Ward Romanalbinsantiago Other [facility] Other 01-02-2023 09:45-0400 Diastolic blood pressure 62 mm[Hg] Ward Morenorer Other [facility] Other 01-02-2023 09:45-0400 SaO2% (BldA) [Mass fraction] 97 % Ward Morenorer Other [facility] Other 01-02-2023 09:45-0400 Systolic blood pressure 116 mm[Hg] Ward Buehrer Other [facility] Other 12-21-2022 13:01-0400 Body temperature 98.4 [degF] DO Ward Zuniga Work Phone: [facility] 12-17-2022 09:00-0400 Diastolic blood pressure 68 mm[Hg] DO Ward Zuniga Work Phone: [facility] 12-17-2022 09:00-0400 Heart rate 64 /min DO Ward Zuniga Work Phone: [facility] 12-17-2022 09:00-0400 Respiratory rate 20 /min DO Ward Zuniga Work Phone: [facility] 12-17-2022 09:00-0400 SaO2% (BldA) [Mass fraction] 95 % DO Ward Zuniga Work Phone: [facility] 12-17-2022 09:00-0400 Systolic blood pressure 138 mm[Hg] DO Ward Zuniga Work Phone: [facility] 12-17-2022 07:42-0400 Body temperature 98.9 [degF] DO Ward Zuniga Work Phone: [facility] 12-07-2022 11:11-0400 Body height 154.94 cm DO Ward Zuniga Work Phone: [facility] 12-07-2022 11:11-0400 Body mass index (BMI) [Ratio] 31.1 kg/m2 DO Ward Zuniga Work Phone: [facility] 12-07-2022 11:11-0400 Body weight 74.84 kg DO Ward Zuniga Work Phone: [facility] 12-07-2022 11:01-0400 Body temperature 97.2 [degF] DO Ward Zuniga Work Phone: [facility] 12-07-2022 11:01-0400 Diastolic blood pressure 74 mm[Hg] DO Ward Zuniga Work Phone: [facility] 12-07-2022 11:01-0400 Heart rate 67 /min DO Ward Zach Work Phone: [facility] 12-07-2022 11:01-0400 Respiratory rate 18 /min DO Ward Zach Work Phone: [facility] 12-07-2022 11:01-0400 Systolic blood pressure 146 mm[Hg] DO Ward Zach Work Phone: [facility] 11-04-2022 10:54-0400 Body height 154.94 cm DO Ward Zach Work Phone: [facility] 11-04-2022 10:54-0400 Body temperature 99.2 [degF] DO Ward Zach Work Phone: [facility] 11-04-2022 10:54-0400 Body weight 70.3 kg DO Ward Zach Work Phone: [facility] 11-04-2022 10:54-0400 Diastolic blood pressure 71 mm[Hg] DO Ward Zach Work Phone: [facility] 11-04-2022 10:54-0400 Heart rate 78 /min DO Wardjaquelin Zuniga Work Phone: [facility] 11-04-2022 10:54-0400 Respiratory rate 18 /min DO Ward Zuniga Work Phone: [facility] 11-04-2022 10:54-0400 SaO2% (BldA) [Mass fraction] 99 % DO Ward Zach Work Phone: [facility] 11-04-2022 10:54-0400 Systolic blood pressure 159 mm[Hg] DO Ward Zach Work Phone: [facility] 10-26-2022 09:42-0400 Body height 154.94 cm DO Ward Zach Work Phone: [facility] 10-26-2022 09:42-0400 Body mass index (BMI) [Ratio] 31.1 kg/m2 DO Ward Zuniga Work Phone: [facility] 10-26-2022 09:42-0400 Body weight 74.84 kg DO Ward Zuniga Work Phone: [facility] 10-26-2022 09:28-0400 Body temperature 98.4 [degF] DO Ward Zuniga Work Phone: [facility] 10-26-2022 09:28-0400 Diastolic blood pressure 88 mm[Hg] DO Ward Zuniga Work Phone: [facility] 10-26-2022 09:28-0400 Heart rate 93 /min DO Ward Zuniga Work Phone: [facility] 10-26-2022 09:28-0400 Respiratory rate 24 /min DO Ward Zuniga Work Phone: [facility] 10-26-2022 09:28-0400 Systolic blood pressure 132 mm[Hg] DO Ward Zuniga Work Phone: [facility] 10-24-2022 09:45-0400 Body height 154.94 cm Ward Mtz Other [facility] Other 10-24-2022 09:45-0400 Body mass index (BMI) [Ratio] 31.74 kg/m2 Ward Mtz Other [facility] Other 10-24-2022 09:45-0400 Body temperature 97.4 [degF] Ward Mtz Other [facility] Other 10-24-2022 09:45-0400 Body weight 76.2 kg Ward Mtz Other [facility] Other 10-24-2022 09:45-0400 Diastolic blood pressure 70 mm[Hg] Ward Buehrer Other [facility] [employer] Other 10-24-2022 09:45-0400 SaO2% (BldA) [Mass fraction] 97 % Ward Buehrer Other [facility] Other 10-24-2022 09:45-0400 Systolic blood pressure 118 mm[Hg] Ward Buehrer Other [facility] [employer] Other 09-27-2022 08:26-0400 Diastolic blood pressure 56 mm[Hg] Ronobir RANDY [facility] 09-27-2022 08:26-0400 Heart rate 55 /min Ronobir RANDY [facility] 09-27-2022 08:26-0400 Respiratory rate 18 /min Ronobir RANDY [facility] 09-27-2022 08:26-0400 SaO2% (BldA) [Mass fraction] 99 % Ronobir RANDY [facility] 09-27-2022 08:26-0400 Systolic blood pressure 110 mm[Hg] Ronobir RANDY [facility] 09-27-2022 05:58-0400 Diastolic blood pressure 59 mm[Hg] Ronobir RANDY [facility] 09-27-2022 05:58-0400 Heart rate 64 /min Ronobir RANDY [facility] 09-27-2022 05:58-0400 Respiratory rate 18 /min Ronobir RANDY [facility] 09-27-2022 05:58-0400 SaO2% (BldA) [Mass fraction] 95 % Ronobir RANDY [facility] 09-27-2022 05:58-0400 Systolic blood pressure 108 mm[Hg] Ronobir RANDY [facility] 09-27-2022 04:58-0400 Diastolic blood pressure 61 mm[Hg] Ronobir RANDY [facility] 09-27-2022 04:58-0400 Heart rate 66 /min Ronobir RANDY [facility] 09-27-2022 04:58-0400 Respiratory rate 18 /min Ronobir RANDY [facility] 09-27-2022 04:58-0400 SaO2% (BldA) [Mass fraction] 97 % Ronobir RANDY [facility] 09-27-2022 04:58-0400 Systolic blood pressure 111 mm[Hg] Ronobir RANDY [facility] 09-26-2022 23:15-0400 Body temperature 98.96 [degF] Ronobir RANDY [facility] 07-26-2022 14:31-0400 Heart rate 76 /min Talon Mcbride [facility] 07-26-2022 14:31-0400 SaO2% (BldA) [Mass fraction] 98 % Talon Mcbride [facility] 07-26-2022 14:30-0400 Diastolic blood pressure 84 mm[Hg] Talon Gastonsh [facility] 07-26-2022 14:30-0400 Mean blood pressure 111 mm[Hg] Talon Gastonsh [facility] 07-26-2022 14:30-0400 Systolic blood pressure 166 mm[Hg] Talon Gastonsh [facility] 07-26-2022 14:30-0400 Respiratory rate 16 /min Talon Gastonsh [facility] 07-26-2022 12:53-0400 Heart rate 73 /min Talon Gastonsh [facility] 07-26-2022 12:53-0400 SaO2% (BldA) [Mass fraction] 98 % Talon Gastonsh [facility] 07-26-2022 12:52-0400 Diastolic blood pressure 75 mm[Hg] Talon Gastonsh [facility] 07-26-2022 12:52-0400 Mean blood pressure 99 mm[Hg] Talon Gastonsh [facility] 07-26-2022 12:52-0400 Systolic blood pressure 148 mm[Hg] Talon Gastonsh [facility] 07-26-2022 12:52-0400 SaO2% (BldA) [Mass fraction] 95 % Talon Gastonsh [facility] 07-26-2022 12:43-0400 Body temperature 97.88 [degF] Talon Gastonsh [facility] 07-26-2022 12:43-0400 Diastolic blood pressure 63 mm[Hg] Talon Gastonsh [facility] 07-26-2022 12:43-0400 Heart rate 63 /min Talon Gastonsh [facility] 07-26-2022 12:43-0400 Mean blood pressure 86 mm[Hg] Talon Gastonsh [facility] 07-26-2022 12:43-0400 Respiratory rate 15 /min Talon Gastonsh [facility] 07-26-2022 12:43-0400 Systolic blood pressure 131 mm[Hg] Talon Gastonsh [facility] 07-26-2022 12:30-0400 Mean blood pressure 93 mm[Hg] Talon Gastonsh [facility] 07-26-2022 12:30-0400 Respiratory rate 16 /min Talon Gastonsh [facility] 07-26-2022 12:15-0400 Mean blood pressure 112 mm[Hg] Talon Gastonsh [facility] 07-26-2022 12:15-0400 Respiratory rate 15 /min Talon Gastonsh [facility] 07-26-2022 11:46-0400 Body temperature 97.34 [degF] Talon Gastonsh [facility] 07-26-2022 11:40-0400 Respiratory rate 21 /min Talon Gastonsh [facility] 07-26-2022 11:35-0400 Respiratory rate 14 /min Talon Gastonsh [facility] 07-26-2022 06:00-0400 Body temperature 98.06 [degF] Talon Gastonsh [facility] 07-26-2022 06:00-0400 Mean blood pressure 101 mm[Hg] Talon Gastonsh [facility] 07-26-2022 06:00-0400 Heart rate 68 /min Talon Gastonsh [facility] 07-26-2022 05:58-0400 Blood Pressure Location Talon Gastonsh [facility] 07-18-2022 13:31-0400 Diastolic blood pressure 72 mm[Hg] Talon Gastonsh [facility] 07-18-2022 13:31-0400 Heart rate 61 /min Talon Mcbride [facility] 07-18-2022 13:31-0400 Mean blood pressure 89 mm[Hg] Talon Mcbride [facility] 07-18-2022 13:31-0400 Systolic blood pressure 123 mm[Hg] Talon Mcbride [facility] 07-18-2022 13:31-0400 Heart rate 64 /min Talon Mcbride [facility] 07-18-2022 13:31-0400 SaO2% (BldA) [Mass fraction] 99 % Talon Mcbride [facility] 07-18-2022 13:31-0400 Respiratory rate 17 /min Talon Mcbride [facility] 07-18-2022 13:30-0400 Diastolic blood pressure 69 mm[Hg] Talon Mcbride [facility] 07-18-2022 13:30-0400 Mean blood pressure 86 mm[Hg] Talon Mcbride [facility] 07-18-2022 13:30-0400 Systolic blood pressure 121 mm[Hg] Talon Mcbride [facility] 07-13-2022 14:45-0400 Body height 154.9 cm Trauma Resident [facility] 07-13-2022 14:45-0400 Body mass index (BMI) [Ratio] 31.01 kg/m2 Trauma Resident [facility] 07-13-2022 14:45-0400 Body temperature 97.3 [degF] Trauma Resident [facility] 07-13-2022 14:45-0400 Body weight 74.44 kg Trauma Resident [facility] 07-13-2022 14:45-0400 Diastolic blood pressure 69 mm[Hg] Trauma Resident [facility] 07-13-2022 14:45-0400 Heart rate 69 /min Trauma Resident [facility] 04-19-2023 14:45-0400 Respiratory rate 16 /min Trauma Resident [facility] 07-13-2022 14:45-0400 SaO2% (BldA) [Mass fraction] 100 % Trauma Resident [facility] 07-13-2022 14:45-0400 Systolic blood pressure 159 mm[Hg] Trauma Resident [facility] 07-05-2022 14:45-0400 Diastolic blood pressure 54 mm[Hg] [address] 07-05-2022 14:45-0400 Heart rate 75 /min [address] 07-05-2022 14:45-0400 Respiratory rate 16 /min [address] 07-05-2022 14:45-0400 SaO2% (BldA) [Mass fraction] 97 % [address] 07-05-2022 14:45-0400 Systolic blood pressure 125 mm[Hg] [address] 07-05-2022 13:00-0400 Body height 154.[address] 07-05-2022 13:00-0400 Body mass index (BMI) [Ratio] 31.55 kg/m2 [address] 07-05-2022 13:00-0400 Body temperature 98.6 [degF] [address] 07-05-2022 13:00-0400 Body weight 75.75 kg [address] 06-30-2022 08:58-0400 Body height 154.94 cm Ward Zuniga Work Phone: [facility] [employer] 600 DO Work Phone: 06-30-2022 08:58-0400 Body mass index (BMI) [Ratio] 31.08 kg/m2 Ward Zuniga Work Phone: [facility] [employer] 600 DO Work Phone: 06-30-2022 08:58-0400 Body surface area Derived from formula 1.74 m2 Ward Zuniga Work Phone: [facility] [employer] 600 DO Work Phone: 06-30-2022 08:58-0400 Body weight 74.62 kg Ward Zuniga Work Phone: [facility] 600 DO Work Phone: 06-30-2022 08:58-0400 Diastolic blood pressure 78 mm[Hg] Ward Zuniga Work Phone: [facility] 600 DO Work Phone: 06-30-2022 08:58-0400 Diastolic blood pressure 80 mm[Hg] Ward Zuniga Work Phone: [facility] 600 DO Work Phone: 06-30-2022 08:58-0400 Heart rate 77 /min Ward Zuniga Work Phone: [facility] 600 DO Work Phone: 06-30-2022 08:58-0400 Systolic blood pressure 128 mm[Hg] Ward Zuniga Work Phone: [facility] 600 DO Work Phone: 06-30-2022 08:58-0400 Systolic blood pressure 132 mm[Hg] Ward Zuniga Work Phone: [facility] 600 DO Work Phone: 06-22-2022 19:00-0400 Body height 154.94 cm DO Ward Zuniga Work Phone: [facility] 06-22-2022 19:00-0400 Body temperature 97.7 [degF] DO Ward Zuniga Work Phone: [facility] 06-22-2022 19:00-0400 Body weight 73 kg DO Ward Zuniga Work Phone: [facility] 06-22-2022 19:00-0400 Diastolic blood pressure 76 mm[Hg] DO Ward Zuniga Work Phone: [facility] 06-22-2022 19:00-0400 Heart rate 94 /min DO Ward Zuniga Work Phone: [facility] 06-22-2022 19:00-0400 Respiratory rate 18 /min DO Ward Zuniga Work Phone: [facility] 06-22-2022 19:00-0400 SaO2% (BldA) [Mass fraction] 98 % DO Ward Zuniga Work Phone: [facility] 06-22-2022 19:00-0400 Systolic blood pressure 139 mm[Hg] DO Ward Zuniga Work Phone: [facility] 06-15-2022 13:10-0400 Body height 154.9 cm Trauma Resident [facility] 06-15-2022 13:10-0400 Body mass index (BMI) [Ratio] 31.57 kg/m2 Trauma Resident [facility] 06-15-2022 13:10-0400 Body weight 75.8 kg Trauma Resident [facility] 06-15-2022 13:10-0400 Diastolic blood pressure 68 mm[Hg] Trauma Resident [facility] 06-15-2022 13:10-0400 Heart rate 92 /min Trauma Resident [facility] 06-15-2022 13:10-0400 Respiratory rate 19 /min Trauma Resident [facility] 06-15-2022 13:10-0400 SaO2% (BldA) [Mass fraction] 97 % Trauma Resident [facility] 06-15-2022 13:10-0400 Systolic blood pressure 118 mm[Hg] Tra[facility]ident [facility] [facility] 05-16-2022 00:50-0500 Body temperature 98.3 [degF] DO Ward Zuniga Work Phone: [facility] 05-16-2022 00:50-0500 Diastolic blood pressure 79 mm[Hg] DO Ward Zuniga Work Phone: [facility] 05-16-2022 00:50-0500 Heart rate 82 /min DO Ward Zuniga Work Phone: [facility] 05-16-2022 00:50-0500 Inhaled oxygen flow rate 3 L/min DO Ward Zuniga Work Phone: [facility] 05-16-2022 00:50-0500 Respiratory rate 20 /min DO Ward Zuniga Work Phone: [facility] 05-16-2022 00:50-0500 SaO2% (BldA) [Mass fraction] 96 % DO Ward Zuniga Work Phone: [facility] 05-16-2022 00:50-0500 Systolic blood pressure 147 mm[Hg] DO Ward Zuniga Work Phone: [facility] 05-15-2022 17:14-0500 Body height 154.94 cm DO Ward Zuniga Work Phone: [facility] 05-15-2022 17:14-0500 Body weight 78.1 kg DO Ward Zuniga Work Phone: [facility] 12-07-2021 09:30-0400 Body height 154.94 cm Balwinder Parker Other [employer] [facility] [employer] Other 12-07-2021 09:30-0400 Body mass index (BMI) [Ratio] 33.06 kg/m2 Balwinder Parker Other [employer] Other 12-07-2021 09:30-0400 Body weight 79.38 kg Balwinder Parker Other [employer] Other 12-07-2021 09:30-0400 Diastolic blood pressure 63 mm[Hg] Balwinder Parker Other [employer] Other 12-07-2021 09:30-0400 Systolic blood pressure 113 mm[Hg] Balwinder Parker Other [employer] Other 12-07-2021 09:01-0400 Body weight 0 kg DO Ward Zuniga Work Phone: [facility] 11-30-2021 13:23-0400 Blood Pressure Location MARYCARMEN ELJIAH [facility] 11-30-2021 13:23-0400 Diastolic blood pressure 73 mm[Hg] MARYCARMEN ELIJAH [facility] 11-30-2021 13:23-0400 Heart rate 69 /min MARYCARMEN ELIJAH [facility] 11-30-2021 13:23-0400 Systolic blood pressure 132 mm[Hg] MARYCARMEN ELIJAH [facility] 07-29-2021 11:08-0400 Blood Pressure Location MARYCARMEN ELIJAH [facility] 07-29-2021 11:08-0400 Diastolic blood pressure 84 mm[Hg] MARYCARMEN ELIJAH [facility] 07-29-2021 11:08-0400 Heart rate 77 /min MARYCARMEN ELIJAH [facility] 07-29-2021 11:08-0400 Systolic blood pressure 132 mm[Hg] MARYCARMEN ELIJAH [facility] 07-01-2021 14:45-0400 Body height 154.94 cm Balwinder Parker Other [employer] Other 07-01-2021 14:45-0400 Body mass index (BMI) [Ratio] 36.09 kg/m2 Balwinder Parker Other [employer] Other 07-01-2021 14:45-0400 Body weight 86.64 kg Balwinder Parker Other [employer] Other 02-23-2021 11:45-0500 Body height 154.94 cm Ward Morenorer Other [employer] Other 02-23-2021 11:45-0500 Body mass index (BMI) [Ratio] 34.95 kg/m2 Ward Buehrer Other [employer] Other 02-23-2021 11:45-0500 Body temperature 96.7 [degF] Ward Owensehrer Other [employer] Other 02-23-2021 11:45-0500 Body weight 83.92 kg Ward Buehrer Other [employer] Other 02-23-2021 11:45-0500 Diastolic blood pressure 80 mm[Hg] Ward Morenorer Other [employer] Other 02-23-2021 11:45-0500 SaO2% (BldA) [Mass fraction] 98 % Ward Buehrer Other [employer] Other 02-23-2021 11:45-0500 Systolic blood pressure 138 mm[Hg] Ward Buehrer Other [employer] Other 12-29-2020 11:40-0400 Body height 154.94 cm Michael Colunga Other [employer] Other 12-29-2020 11:40-0400 Body mass index (BMI) [Ratio] 34.95 kg/m2 Michael Colunga Other [employer] Other 12-29-2020 11:40-0400 Body weight 83.92 kg Michael Colunga Other [employer] Other 12-29-2020 11:40-0400 Diastolic blood pressure 68 mm[Hg] Michael Colunga Other [employer] Other 12-29-2020 11:40-0400 Systolic blood pressure 116 mm[Hg] Michael Colunga Other [employer] Other 03-31-2020 08:55-0500 BP Diastolic 80 mm[Hg] [facility] 03-31-2020 08:55-0500 BP Systolic 145 mm[Hg] [facility] 03-31-2020 08:55-0500 Pulse (Heart Rate) 65 /min [facility] 03-31-2020 08:55-0500 Pulse Oximetry 99 % [facility] 03-31-2020 08:55-0500 Respiratory Rate 16 /min [facility] 03-31-2020 07:10-0500 BMI (Body Mass Index) 33.6 kg/m2 [facility] 03-31-2020 07:10-0500 Body weight 82.1 kg [facility] 03-31-2020 07:10-0500 Height 156.21 cm [facility] Encounters Encounter Date Encounter Type Care Provider Facility Start: 03-14-2024 ambulatory MARYCARMEN Lay ty:ROSS Valadez Start: 05-09-2023 Chart abstracting Angelita Carbone PT Work Phone: [facility] Start: 05-09-2023 End: 05-09-2023 Office outpatient visit 25 minutes Ward Zuniga DO Work Phone: [facility] Comment on above: Primary hypertension (CMS/HCC) (Primary Dx); Unspecified inflammatory spondylopathy, 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); Major depressive disorder, recurrent, moderate (F33.1); Coronary artery disease involving [place] coronary artery of [place] heart without angina pectoris (CMS/HCC); Fibromyalgia; Acquired hypothyroidism (CMS/HCC); Anemia, unspecified type; Mixed hyperlipidemia (CMS/HCC); Recurrent major depressive disorder, in partial remission (HCC) (CMS/HCC); Other chronic pain; Spinal stenosis, lumbar region without neurogenic claudication Start: 05-08-2023 ambulatory SEVERINAO Enrique MONA Facility:[facility] Start: 05-08-2023 End: 05-08-2023 Subsequent hospital visit by physician Jaja Reddy MD Work Phone: Procedures Comment on above: Epigastric pain [R10 .13] Start: 05-04-2023 Bamboo flowsheet Tamiko Guzik DIGITAL ASSET MANAGER [facility] Start: 05-04-2023 Bamboo flowsheet Tamiko Guzik DIGITAL ASSET MANAGER [facility] Start: 05-04-2023 End: 05-04-2023 ambulatory TAMIKO TABORK Not Available Start: 05-03-2023 Telephone encounter Jaja wahl MD Work Phone: Gastroenterology Comment on above: Pre-Op Teaching Start: 05-02-2023 End: 05-02-2023 ambulatory ANGELITA WILL-METLAKATLA Not Available Start: 05-02-2023 End: 05-02-2023 ambulatory Angelita L Dauch-Solomons PT Work Phone: [facility] PT Comment on above: Internal derangement of left shoulder Start: 04-20-2023 End: 04-21-2023 ambulatory CONNIE LEARY Not Available Start: 04-19-2023 End: 04-19-2023 ambulatory WARD ZUNIGA Facility:[facility] Start: 04-17-2023 End: 04-17-2023 ambulatory VICTORIA MARSHALL Not Available Start: 04-11-2023 End: 04-12-2023 ambulatory CONNIE LEARY Not Available Start: 03-22-2023 End: 03-22-2023 ambulatory CONNIE LEARY Not Available Start: 03-13-2023 End: 03-13-2023 ambulatory Adelia Rosa Elenasukumar Facility:[facility] Start: 03-13-2023 End: 03-13-2023 ambulatory DO Ward Zuniga Work Phone: [facility] Work Phone: Start: 03-13-2023 End: 03-13-2023 Discharged Recurring DO Ward Zuniga Work Phone: [facility] [place] Work Phone: Start: 03-02-2023 End: 03-03-2023 ambulatory Ketty X Ravin Facility:[facility] Start: 03-02-2023 End: 03-02-2023 Patient encounter procedure Ketty X Orclemenciach [facility] [place] Start: 03-01-2023 End: 03-02-2023 ambulatory CONNIE LEARY Not Available Start: 02-22-2023 End: 02-23-2023 ambulatory CONNIE LEARY Not Available Start: 02-07-2023 End: 02-08-2023 ambulatory WARD ZUNIGA Not Available Start: 01-04-2023 End: 01-04-2023 ambulatory Ward Zuniga Facility:[facility] Start: 01-04-2023 End: 01-04-2023 Discharged Recurring DO Ward Zuniga Work Phone: [facility] [place] Work Phone: Start: 01-02-2023 End: 01-02-2023 ambulatory Ward Mtz Other [employer] Other Start: 01-02-2023 Office outpatient vi sit 25 minutes Ward Mtz [facility] Vascular Surgery Start: 12-17-2022 End: 12-17-2022 Emergency department patient visit Pravin Granado Facility:[facility] Start: 12-17-2022 End: 12-17-2022 Emergency department patient visit DO Ward Zuniga Work Phone: [facility]-Emergency [facility] Work Phone: Start: 12-07-2022 Registered Recurring DO Lyndsey Zuniga Work Phone: [facility] [place] Work Phone: Start: 12-03-2022 Letter encounter Lalo lancaster Start: 11-04-2022 End: 11-04-2022 ambulatory Ward Zuniga Facility:[facility] Start: 11-04-2022 End: 11-04-2022 Emergency department patient visit Ward Zuniga Facility:[facility] Start: 11-04-2022 End: 11-04-2022 ambulatory DO Ward Zuniga Work Phone: [facility] Work Phone: Start: 11-04-2022 End: 11-04-2022 Patient encounter procedure DO Ward Zuniga Work Phone: [facility] [place] Work Phone: Start: 11-04-2022 End: 11-04-2022 Emergency department patient visit DO Ward Zuniga Work Phone: [facility]-Emergency Room Work Phone: Start: 10-26-2022 Registered Recurring DO Lyndsey Zuniga Work Phone: [facility] [place] Work Phone: Start: 10-24-2022 End: 10-24-2022 ambulatory Ward Mtz Other [facility] Other Start: 10-24-2022 Office outpatient vi sit 25 minutes Ward Mtz [facility] Vascular Surgery Start: 09-27-2022 End: 09-27-2022 ambulatory Maliha PADILLA Facility:[facility] Start: 09-26-2022 End: 09-27-2022 Emergency department patient visit Maliha PADILLA [facility] Start: 09-06-2022 End: 09-06-2022 ambulatory Ward Zuniga Facility:[facility] Start: 09-06-2022 End: 09-06-2022 Patient encounter procedure DO Ward Zuniga Work Phone: [facility] [place] Work Phone: Start: 08-30-2022 Letter encounter Lalo lancaster Start: 08-05-2022 End: 08-06-2022 ambulatory Talon Mcbride Facility:[facility] Start: 08-05-2022 End: 08-05-2022 Patient encounter procedure Zulay Junior [facility] Start: 07-26-2022 End: 07-26-2022 ambulatory Talon Mcbride Facility:[facility] Start: 07-26-2022 End: 07-26-2022 Admission to same day surgery center Talon Mcbride [facility] Start: 07-18-2022 End: 07-19-[address] Ward Zuniga Facility:[facility] Start: 07-18-2022 End: 07-18-2022 Patient encounter procedure Talon Mcbride [facility] Start: 07-13-2022 End: 07-13-2022 ambulatory NIKITA HEIN Facility:[facility] Start: 07-13-2022 End: 07-13-2022 Office outpatient visit 10 minutes Trauma Surgery Resident [facility] Trauma Surgery Comment on above: Acute cholecystitis (Primary Dx); Body mass index (BMI) 31.0-31.9, adult Start: 07-13-2022 Admission to [facility] Nikita Hein MD Work Phone: [facility] Trauma Surgery Start: 07-07-2022 Orders Only Jai Aguilera RN [facility] Trauma Surgery Start: 07-06-2022 ambulatory Kendra Harrison RN [facility] Line Comment on above: Advice/health educat ion Start: 07-06-2022 Telephone encounter Jai Aguilera RN [facility] Trauma Surgery Start: 07-05-2022 End: 07-06-2022 ambulatory NIKITA HEIN Facility:[facility] Start: 07-05-2022 Telephone encounter Taniya cat Work Phone: [facility] Trauma Surgery Start: 07-05-2022 End: 07-05-2022 Subsequent hospital visit by physician Mh Ip/Op Angio 1 [facility] Radiology Comment on above: Acute cholecystitis Start: 06-30-2022 Office consultation new/estab patient 60 min Ward Zuniga Work Phone: [facility] 600 DO Work Phone: Start: 06-30-[address] Natan Marinelli Facility: Start: 06-27-2022 Telephone encounter Taniya cat Work Phone: [facility] Trauma Surgery Start: 06-22-2022 End: 06-22-2022 Emergency department patient visit Keith Griffith Facility:[facility] Start: 06-22-2022 End: 06-22-2022 Emergency department patient visit DO Ward Zuniga Work Phone: [facility]-Emergency Room Work Phone: Start: 06-20-2022 Orders Only [facility] Start: 06-17-2022 Telephone encounter Laura Faust [facility] Trauma Surgery Start: 06-16-2022 Telephone encounter Taniya cat Work Phone: [facility] Trauma Surgery Start: 06-15-2022 End: 06-18-2022 ambulatory UNKNOWN PROVIDER Facility:[facility] Start: 06-15-2022 End: 06-18-2022 Office outpatient visit 15 minutes Trauma Surgery Resident [facility] Trauma Surgery Comment on above: Acute cholecystitis (Primary Dx); Body mass index (BMI) 31.0-31.9, adult Start: 05-27-2022 ambulatory Maegan Morris RN [facility] Comment on above: Advice/health educat ion Start: 05-23-2022 Evaluation and management of inpatient JOCELYNE CONLEY Facility:[facility] Start: 05-19-2022 Evaluation and management of inpatient CONNIE COTE Facility:[facility] Start: 05-18-2022 Patient encounter status Maegan Morris RN [facility] Start: 05-17-2022 Evaluation and management of inpatient CONNIE COTE Facility:[facility] Start: 05-16-2022 Evaluation and management of inpatient CONNIE COTE Facility:[facility] Start: 05-16-2022 End: 05-16-2022 ambulatory UNKNOWN PROVIDER Facility:[facility] Start: 05-16-2022 End: 05-25-2022 Evaluation and management of inpatient WARD GRAVES Facility:[facility] Start: 05-16-2022 Emergency department patient visit CONNIE CRUZARTHY Facility:[facility] Start: 05-15-2022 End: 05-16-2022 Emergency department patient visit Keith Griffith Facility:[facility] Start: 05-15-2022 End: 05-16-2022 Emergency department patient visit DO Ward Zuniga Work Phone: [facility]-Emergency Room Work Phone: Start: 05-15-2022 End: 05-16-2022 ambulatory UNKNOWN PROVIDER Facility:[facility] Start: 04-06-2022 End: 04-06-2022 ambulatory Ward Zuniga Facility:[facility] Start: 04-06-2022 End: 04-06-2022 ambulatory DO Ward Zuniga Work Phone: [facility] Work Phone: Start: 04-06-2022 End: 04-06-2022 Patient encounter procedure DO Ward Zuniga Work Phone: [facility] [address] Work Phone: Start: 01-03-2022 End: 01-03-2022 ambulatory DO Ward Zuniga Work Phone: [facility] Work Phone: Start: 01-03-2022 End: 01-03-2022 Patient encounter procedure DO Ward Zuniga Work Phone: [facility] [place] Start: 12-16-2021 End: 12-16-2021 Patient encounter procedure DO Ward Zuniga Work Phone: [facility] Start: 12-15-2021 End: 12-15-2021 Patient encounter procedure DO Ward Zuniga Work Phone: [facility]-Pre-Surgical Testing Start: 12-07-2021 End: 12-07-2021 ambulatory Balwinder Parker Other [facility] [employer] Other Start: 12-07-2021 Patient encounter procedure Balwinder ARMENDARIZ Gastroenterology Start: 11-30-2021 End: 11-30-2021 Patient encounter procedure MARYCARMEN NAVA [facility] [place] Start: 09-08-2021 End: 09-08-2021 ambulatory Balwinder Parker Other [facility] [employer] Other Start: 09-08-2021 Telephone encounter Balwinder Grullon Gastroenterology Start: 07-29-2021 End: 07-29-2021 Patient encounter procedure MARYCARMEN NAVA [facility] Start: 07-01-2021 End: 07-01-2021 ambulatory Balwinder Parker Other [facility] Other Start: 07-01-2021 Patient encounter procedure Balwinder Parker [facility] Gastroenterology Start: 02-23-2021 End: 02-23-2021 ambulatory Ward Mtz Other [facility] Other Start: 02-23-2021 Office outpatient vi sit 15 minutes Ward Mtz [facility] Vascular Surgery Start: 01-22-2021 (Sclerother) Sclerotherapy Ward Mtz [facility] Vascular Surgery Start: 01-22-2021 End: 01-22-2021 ambulatory Ward Mtz Other [facility] [employer] Other Start: 01-21-2021 Telephone encounter Michael Colunga [facility] Vascular Surgery Start: 12-29-2020 Office outpatient vi sit 25 minutes Michael Colunga [facility] Neurosurgery Start: 09-07-2020 End: 09-07-2020 Patient encounter procedure Ward Zuniga Work Phone: -Ultrasound [facility] Vascular Start: 08-04-2020 End: 08-04-2020 Patient encounter procedure Ward Zuniga Work Phone: -Ultrasound [facility] Vascular Start: 07-13-2020 End: 07-13-2020 Patient encounter procedure Ward Zuniga Work Phone: -[facility] Start: 06-30-2020 End: 06-30-2020 Patient encounter procedure Ward Zuniga -[facility] Start: 03-31-2020 End: 03-31-2020 Admission to day surgery Ward Zuniga -[facility] Start: 03-30-2020 End: 03-30-2020 Patient encounter procedure Ward Zuniga -Pre-Surgical Testing Procedures Date Procedure Procedure Detail Performing Clinician Start: 05-08-2023 Esophagogastroduodenoscopy transoral diagnostic Jaja Reddy MD Work Phone: Start: 11-04-2022 Duplex scan of lower limb veins DO Nancy Zuniga Work Phone: Start: 11-04-2022 CT cervical spine without contrast DO Abdullahi Zuniga Work Phone: Start: 11-04-2022 CT of head without contrast DO Ward quijano Work Phone: Start: 11-04-2022 X-ray of left knee DO Ward Zuniga Work Phone: Start: 07-26-2022 Cholecystectomy Talon Mcbride Start: 07-05-2022 Njx cholangio prq w/img gid rs&i existing access Nikita Hein MD Work Phone: Start: 06-15-2022 Blood count complete automated Nikita liu MD Work Phone: Start: 05-15-2022 Plain chest X-ray DO Ward Zuniga Work Phone: Start: 05-15-2022 CT angiography of thorax DO Ward Rosales ubaldo Work Phone: Start: 05-15-2022 Computed tomography of abdomen and pelvis with contrast DO Ward Zuniga Work Phone: Start: 05-15-2022 Plain chest X-ray DO Ward Zuniga Work Phone: Start: 05-15-2022 Blood culture for bacteria, including anaerobic screen DO Ward Zuniga Work Phone: Start: 04-06-2022 Plain X-ray of left wrist DO Ward aguero Work Phone: Start: 04-06-2022 X-ray of cervical spine DO Ward Hernandez n Work Phone: Start: 12-16-2021 Esophageal manometry DO Ward Zuniga Work Phone: Start: 03-02-2021 Mammography Angelita Carbone PT Work Phone: Start: 02-15-2021 Injection of sacroiliac joint using fluoroscopic guidance MARYCARMEN NAVA Comment on above: 95% relief Start: 10-16-2020 Venous structure (body structure) HELEN NAVA Comment on above: right leg Start: 08-04-2020 Duplex scan of lower limb veins Ward Zuniga Work Phone: Start: 03-31-2020 Screening colonoscopy Ward Zuniga Start: 03-30-2020 SARS Antigen (LFIA) Ward Zuniga Start: 03-30-2020 Colonoscopy Angelita Aspen PT Work Phone: Start: 06-29-2017 Release of trigger finger MARYCARMEN NAVA Comment on above: FINGER TRIGGER RELEASE Start: 05-30-2016 Total knee replacement MARYCARMEN NAVA Comment on above: LEFT Start: 05-02-2016 Right ring trigger finger release HELEN NAVA Arthroplasty of knee Ward Zuniga Work [...] Treatment Date Care Activity Detail Author Start: 03-30-2030 Screening for malign ant neoplasm of colon [facility] Start: 01-03-2027 Cholesterol [Mass/volume] in Serum or Plasma Cholesterol [facility] Start: 05-25-2025 Diabetes Screening Diabetes Screenin paty [facility] Start: 01-03-2024 Medicare Annual Wellness (AWV) Medicare Annual Wellness (AWV) [facility] Start: 11-07-2023 End: 05-09-2024 25-hydroxyvitamin D3 [Mass/volume] in Serum or Plasma Vitamin D 25 hydroxy Total Lab Routine Unspecified inflammatory spondylopathy, 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) Fibromyalgia Anemia, unspecified type Other chronic pain Spinal stenosis, lumbar region without neurogenic claudication Expected: 11/07/2023 (Approximate), Expires: 05/09/2024 [facility] Comment on above: Expected: 11/07/2023 (Approximate), Expires: 05/09/2024 Start: 11-07-2023 End: 05-09-2024 CBC W Auto Differential panel - Blood CBC and differential Lab Routine Primary hypertension (CMS/HCC) Expected: 11/07/2023 (Approximate), Expires: 05/09/2024 [facility] Work Phone: Comment on above: Expected: 11/07/2023 (Approximate), Expires: 05/09/2024 Start: 11-07-2023 End: 05-09-2024 Cobalamin (Vitamin B12) [Mass/volume] in Serum or Plasma Vitamin B12 Lab Routine Anemia, unspecified type Expected: 11/07/2023 (Approximate), Expires: 05/09/2024 [facility] Comment on above: Expected: 11/07/2023 (Approximate), Expires: 05/09/2024 Start: 11-07-2023 End: 11-07-2023 Comprehensive metabolic 2000 panel - Serum or Plasma Comprehensive metabolic panel Lab Routine Primary hypertension (CMS/HCC) Expected: 11/07/2023 (Approximate), Expires: 11/07/2023 [facility] Comment on above: Expected: 11/07/2023 (Approximate), Expires: 11/07/2023 Start: 11-07-2023 End: 05-09-2024 Ferritin [Mass/volume] in Serum or Plasma Ferritin Lab Routine Anemia, unspecified type Expected: 11/07/2023 (Approximate), Expires: 05/09/2024 [facility] Comment on above: Expected: 11/07/2023 (Approximate), Expires: 05/09/2024 Start: 11-07-2023 End: 05-09-2024 Iron and Iron binding capacity panel - Serum or Plasma Iron and TIBC Lab Routine Anemia, unspecified type Expected: 11/07/2023 (Approximate), Expires: 05/09/2024 [facility] Comment on above: Expected: 11/07/2023 (Approximate), Expires: 05/09/2024 Start: 11-07-2023 End: 05-09-2024 Lipid 1996 panel - Serum or Plasma Lipid panel Lab Routine Coronary artery disease involving [place] coronary artery of [place] heart without angina pectoris (CMS/HCC) Mixed hyperlipidemia (CMS/HCC) Expected: 11/07/2023 (Approximate), Expires: 05/09/2024 [facility] Comment on above: Expected: 11/07/2023 (Approximate), Expires: 05/09/2024 Start: 11-07-2023 End: 05-09-2024 Microalbumin/Creatinine panel in random Urine Microalbumin / creatinine urine ratio Lab Routine Anemia, unspecified type Expected: 11/07/2023 (Approximate), Expires: 05/09/2024 [facility] Comment on above: Expected: 11/07/2023 (Approximate), Expires: 05/09/2024 Start: 11-07-2023 End: 05-09-2024 Thyrotropin [Units/volume] in Serum or Plasma Tsh+free t4 Lab Routine Acquired hypothyroidism (CMS/HCC) Expected: 11/07/2023 (Approximate), Expires: 05/09/2024 [facility] Comment on above: Expected: 11/07/2023 (Approximate), Expires: 05/09/2024 Start: 07-10-2023 End: 07-10-2023 Patient encounter procedure 07/10/2023 10:45 AM EDT Office Visit [facility] [address] [place] [id number] Jr. Victoria Haynes, DO [address] [place] [address] [facility] Start: 05-25-2023 End: 05-25-2023 ambulatory 05/25/2023 11:00 AM EST Treatment [facility] [address] [place] [id number] Angelita Carbone, PT [address] [place], [place] [id number] [facility] Start: 05-23-2023 End: 05-23-2023 ambulatory 05/23/2023 11:00 AM EST Treatment [facility] [address] [place] [address] Tamiko Tom PTA [facility] Start: 05-18-2023 End: 05-18-2023 ambulatory 05/18/2023 11:30 AM EST Treatment [facility] [address] [place] [address] Tamiko Tom PTA [facility] Start: 05-16-2023 End: 05-16-2023 ambulatory [facility] Start: 05-12-2023 End: 05-12-2023 ambulatory [facility] Start: 05-10-2023 End: 05-10-2023 ambulatory 05/10/2023 2:00 PM EST Treatment [facility] [address] [place] [address] Angelita Carbone, PT [address] [place] [address] [facility] Start: 05-09-2023 End: 05-09-2023 Patient encounter procedure 05/09/2023 1:00 PM EST Office Visit [facility] [address] [place] [address] Ward Zuniga, DO [address] [place] [address] [facility] Start: 05-04-2023 End: 05-04-2023 ambulatory [facility] Comment on above: Arrived Start: 03-27-2023 Advance Directive Discussion Advance Directive Discussion [facility] Start: 03-27-2023 Depression Assessment Depression Ass essment [facility] Start: 12-25-2022 Influenza vaccination Influenza Vacc ine (#1) [facility] Start: 11-25-2022 Covid-19 Vaccine ( season) Covid-19 Vaccine () [facility] Start: 11-04-2022 Duplex scan of lower limb veins US venous duplex LE [facility] Start: 11-04-2022 US Lower extremity v ein - left [facility] Start: 10-06-2022 FUV, Provider: Natan Marinelli, Status: Pen, Time: 1:30 PM FUV, Provider: Natan Marinelli, Status: Pen, Time: 1:30 PM [facility] [address] DO Work Phone: Start: 08-25-2022 End: 08-25-2022 Patient encounter procedure 08/25/2022 Office Visit Cardiology Ericka Hale MD [address] [place] [address] [facility] Cardiology Start: 07-13-2022 End: 07-13-2022 Patient encounter procedure 07/13/2022 Office Visit Trauma Surgery [facility] Trauma Surgery Start: 07-05-2022 End: 07-05-2022 Patient encounter procedure 07/05/2022 Appointment Radiology [facility] Radiology Start: 06-15-2022 End: 06-16-2023 RF Biliary ducts Views W contrast via existing catheter XA CHOLANGIOGRAM EXISTING ACCESS (RHETT) Imaging Routine Acute cholecystitis Expected: 06/15/2022, Expires: 06/16/2023 [facility]: Comment on above: Expected: 06/15/2022 , Expires: 06/16/2023 Start: 05-15-2022 Plain chest X-ray XR chest 1V portab le [facility] Start: 05-15-2022 XR Chest Single view Fi [facility] Start: 05-15-2022 CT angiography of thorax CT angio chest PE protocol [facility] Start: 05-15-2022 CT Chest [facility] Start: 05-15-2022 Bacteria identified in Blood by Culture [facility] Start: 03-02-2022 Screening for malign ant neoplasm of breast [facility] Start: 01-17-2022 COVID-19 Vaccine (2 - Pfizer series) COVID-19 Vaccine (2 - Pfizer series) [facility] Start: 12-25-2021 Annual Wellness Visi t (G0439) Annual Wellness Visit (G0439) [facility] Start: 12-16-2021 [facility] Start: 09-07-2020 Duplex scan of lower limb veins US venous duplex LE [facility] Start: [address] [facility] Start: 2013 RSV Vaccine (1 - 1-d ose 60+ series) RSV Vaccine (1 - 1-dose 60+ series) [facility] Start: 2013 RSV vaccine (optiona l 60+ years) RSV vaccine (optional 60+ years) [facility] Start: 08-25-2003 Shingles (RZV) Vacci ne (1 of 2) Shingles (RZV) Vaccine (1 of 2) [facility] Start: 08-25-2003 Shingrix Vaccine (1 of 2) Shingrix Vaccine (1 of 2) [facility] Start: 1998 Lipid panel Lipid Screening [facility] Start: 1998 Screening for malign ant neoplasm of colon [facility] Start: 1993 Screening for malign ant neoplasm of breast Mammogram Screening [facility] Start: 1972 Urine microalbumin profile DTaP,Tdap,Td Vaccine (1 - Tdap) [facility] Start: 08-25-1971 [facility] Start: 08-25-1971 Tetanus + diphtheria + acellular pertussis vaccine (product) Tdap Booster [facility] Start: 1953 Screening for malign ant neoplasm of colon [facility] CHOLECYSTECTOMY, LAPAROSCOPIC CHOLECYSTECTOMY, LAPAROSCOPIC Routine scheduled Acute cholecystitis PERIOPERATIVE SERVICES CHOLECYSTECTOMY, LAPAROSCOPIC CHOLECYSTECTOMY, LAPAROSCOPIC Routine scheduled Acute cholecystitis [facility] End: 07-13-2022 Ecg routine ecg w/least 12 lds trcg only w/o i&r EKG 12 LEAD - PERFORM MUSE Routine Once for 1 Occurrences starting 07/13/2022 until 07/13/2022 [facility] Work Phone: Comment on above: Once for 1 Occurrenc es starting 07/13/2022 until 07/13/2022 Patient Education [facility] Work Phone: Patient referral [facility] Work Phone: SURGICAL PATHOLOGY [facility] Work Phone: Comment on above: Release Upon Orderin g for 1 Occurrences starting 05/08/2023, [facility] Immunization Date Immunization Notes Care Provider [facility] 01-02-2023 influenza virus vaccine, unspecified formulation Richard Pauer - 3P [facility] 01-02-2023 Influenza, Seasonal, Quadrivalent, Adjuvanted Angelita Carbone PT Work Phone: [facility] 12-27-2021 Influenza, injectabl e, high-dose seasonal, quadrivalent, 0.7 mL, preservative free (SRW=[id number]) Maegan Morris RN [facility] 12-27-2021 SARS-CoV-2 (COVID-19 ) [id number] Richard Pauer - 3P [facility] 12-27-2021 influenza virus vaccine, unspecified formulation [facility] 03-25-2021 COVID-19 mRNA, Comirnaty (Pfizer) DO Ward Zuniga Work Phone: [facility] 01-25-2021 SARS-CoV-2 (COVID-19 ) Ad26 vaccine, recombinant MARYCARMEN ELIJAH [facility] 01-07-2021 influenza virus vaccine, unspecified formulation Richard Pauer - 3P [facility] 01-07-2021 influenza, high dose seasonal, preservative-free Maegan Morris RN [facility] 10-14-2021 pneumococcal polysaccharide vaccine, 23 valent Maegan Morris RN [facility] 07-10-2020 COVID-19 mRNA, Comirnaty ([employer]) DO Ward Zuniga Work Phone: [facility] 06-25-2020 SARS-CoV-2 (COVID-19 ) Ad26 vaccine, recombinant MARYCARMEN NAVA [facility] 06-18-2020 COVID-19 mRNA, Comirnaty (Pfizer) DO Ward Zuniga Work Phone: [facility] 05-25-2020 SARS-CoV-2 (COVID-19 ) Ad26 vaccine, recombinant MARYCARMEN NAVA [facility] 12-09-2019 influenza virus vaccine, unspecified formulation [employer] [facility] 12-09-2019 pneumococcal conjuga te vaccine, 13 valent Maegan Morris RN [facility] 12-09-2019 Seasonal trivalent influenza vaccine, adjuvanted, preservative free Maegan Morris RN [facility] 01-30-2019 KENALOG - 10 mg Michael Colunga Other [facility] 12-27-2018 influenza virus vaccine, unspecified formulation [employer] [facility] 12-27-2018 Seasonal trivalent influenza vaccine, adjuvanted, preservative free Maegan Morris RN [facility] 01-25-2018 influenza virus vaccine, unspecified formulation Ketty Orzech [facility] 01-25-2018 Influenza, injectabl e, Madin [place] Canine Kidney, quadrivalent with preservative Maegan Morris RN [facility] 12-27-2016 influenza virus vaccine, unspecified formulation Ketty Orzech [facility] 12-27-2016 influenza, injectabl e, quadrivalent, preservative free Maegan Morris RN [facility] 07-07-2016 Kenalog -40 mg Michael Colunga Other [facility] 01-25-2016 Kenalog -40 mg Michael Colunga Other [facility] 11-26-2015 influenza virus vaccine, unspecified formulation Ketty Orzech [facility] 10-19-2015 Kenalog -40 mg Michael Colunga Other [facility] 01-22-2013 influenza virus vaccine, unspecified formulation Ketty Orzech [facility] 01-22-2013 influenza, seasonal, injectable Maegan Morris RN [facility] 03-13-2009 novel [id number], preservative-free, injectable Maegan Morris RN [facility] 01-05-2000 hepatitis B vaccine, adult dosage Maegan Morris RN [facility] 08-02-1999 hepatitis B vaccine, adult dosage Maegan Morris RN [facility] 06-29-1999 hepatitis B vaccine, adult dosage Maegan Morris RN [facility] Payers Date Payer Category Payer Self-pay [id number] 2022 Medicare [id number] 2022 Medicare [id number] 2022 Unknown [id number]. 1.13.56.2.7.3.338799.315 2021 Unknown [id number] 1955 Unknown [id number] 2.16. 840.1.521298.3.579.2. 1953 Unknown [id number] 2.16. 840.1.980785.3.579.2. 1953 Unknown [id number] 2.16. 840.1.014927.3.579.2. 1953 Unknown [id number] 2.16. 840.1.331573.3.579.2. 1953 Unknown [id number] 2.16. 840.1.731079.3.579. 1953 Unknown [id number] 2.16. 840.1.889506.3.579. 1953 Unknown [id number] 2.16. 840.1.780743.3.579.2 1953 Unknown [id number] 2.16. 840.1.536411.3.579.2 1953 Unknown [id number] 2.16. 840.1.251730.3.579.2 1953 Unknown [id number] 2.16. 840.1.087302.3.579.2 1953 Unknown [id number] 2.16. 840.1.667778.3.579.2 1953 Unknown [id number] 2.16. 840.1.872160.3.579.2. 1953 Unknown [id number] 2.16. 840.1.418684.3.579.2 1953 Unknown [id number] 2.16. 840.1.580154.3.579.2 1953 Unknown [id number] 2.16. 840.1.628944.3.579.2.732 1953 Unknown [id number] 2.16. 840.1.615552.3.579.2.732 1953 Unknown [id number] 2.16. 840.1.982963.3.579.2.356 1953 Unknown [id number] 2.16. 840.1.009100.3.579.2.356 1953 Unknown [id number] 2.16.8 40.1.842782.3.579.2.727 1953 Unknown [id number] 2.16.8 40.1.004446.3.579.2.727 1953 Unknown [id number] 2.16.8 40.1.355854.3.579.2.727 1953 Unknown [id number] 2.16.8 40.1.325965.3.579.2.727 1953 Unknown [id number] 2.16.8 40.1.034704.3.579.2.727 1953 Unknown [id number] 2.16.8 40.1.447750.3.579.2.727 1953 Unknown [id number] 2.16.84 0.1.442697.3.579.2.9 1953 Unknown [id number] 2.16.84 0.1.341465.3.579.2.125 1953 Unknown [id number] 2.16.84 0.1.800866.3.579.2.125 1953 Unknown [id number] 2.16.84 0.1.217144.3.579.2.125 1953 Unknown [id number] 2.16.84 0.1.611113.3.579.2.1259 1953 Unknown [id number] 2.16.84 0.1.919587.3.579.2.1258 1953 Unknown [id number] 2.16.840 .1.139743.3.579.2.1259 1953 Unknown [id number] 2.16.840 .1.042981.3.579.2.1259 1953 Unknown [id number] 2.16.840 .1.283704.3.579.2.9 1953 Unknown [id number] 2.16.840 .1.799776.3.579.2.1259 1953 Unknown [id number] 2.16.840 .1.960943.3.579.2.1258 1953 Unknown [id number] 2.16.840 .1.360634.3.579.2.1259 Unknown [id number] Unknown [id number] 2.16.8 40.1.276807.3.579.2.531 Unknown [id number] 2.16.8 40.1.707273.3.579.2.531 Unknown [id number] 2.16.8 40.1.922060.3.579.2.531 Unknown [id number] 2.16.8 40.1.785973.3.579.2.531 Unknown [id number] 2.16.8 40.1.777689.3.579.2.531 Unknown [id number] 2.16.8 40.1.026282.3.579.2.531 Unknown [id number] 2.16.8 40.1.808986.3.579.2.531 Unknown [id number] 2.16.8 40.1.519631.3.579.2.531 Unknown [id number] 2.16.8 40.1.683974.3.579.2.531 Social History Date Type Detail Facility Start: 03-31-2020 End: 01-20-2023 Tobacco smoking status KSIS Ex-smoker (finding) [facility] Start: 1955 Sex Assigned At Female F [facility] Start: 04-19-2023 End: 05-09-2023 Sex Assigned At Female [facility] Start: 05-15-2022 End: 12-17-2022 Tobacco smoking status NHIS Current some day smoker [facility] Start: 03-27-1982 End: 03-27-2009 History of tobacco use Current smoker [facility] Start: 03-27-1982 End: 03-27-2009 History of tobacco use [facility] Start: 05-16-2022 End: 05-09-2023 Cigarettes smoked current (pack per day) - Reported 1 [facility] Comment on above: occasionaly cup of c offee; 2009; Start: 1955 Sex Assigned At [facility] Start: 05-06-2022 End: 05-16-2022 Exposure to SARS-CoV-2 (event) Not sure [facility] Start: 06-22-2022 End: 03-02-2023 Tobacco smoking status NHIS Never smoked tobacco (finding) [facility] Tobacco smoking status Never [facility] Start: 01-20-2023 End: 04-19-2023 Tobacco use and exposure Smokeless tobacco non-user [facility] Start: 04-19-2023 Alcohol intake Current drinke r of alcohol (finding) [facility] Start: 04-19-2023 Alcohol Comment rare [facility] History of tobacco use Passive smoker [facility] Start: 04-20-2023 End: 05-09-2023 Alcohol intake Lifetime non-drinker (finding) [facility] How often to you hav e a drink containing alcohol? Never [facility] Start: 08-25-2022 Tobacco Comment >10 years sinc e last smoked [facility] Start: 08-25-2022 Alcohol Comment caffeine: coffee [facility] How often to you hav e a drink containing alcohol? 2-4 times a month [facility] How many standard drinks containing alcohol do you have on a typical day? 1 or 2 [facility] How often do you hav e 6 or more drinks on 1 occasion? Monthly [facility] Goals Date Patient Goal Desired Activity /State Functional Status Date Assessment Result Facility 03-02-2023 Functional Status N/A [facility] 09-26-2022 Functional Status N/A [facility] 07-18-2022 Functional Status No [facility] 11-30-2021 Functional Status N/A [facility] Clinical Notes 12-29-2020 to 05-03-2023 Telephone Encounter - Susu Leigh OCCA - 05/03/2023 11:05 AM EST Note Date & Type Note Facility 05-03-2023 Miscellaneous Notes Formattin g of this note might be different from the original. Called and spoke with patient regarding prep instructions for upcoming procedure on 05/08/2023. Patient verbalized understanding and made aware prep instructions were also posted to My Chart, patient informed to call [phone] and ask for nurse triage with any questions or concerns. GINETTE Sanchez May 03, 2023 11:05 AM BELOW ARE THE PREP INSTRUCTIONS IF PT CALLS BACK WITH QUESTIONS EGD Prep Instructions Dietary Restrictions: -No solid food after midnight. -You may have clear liquids (water, clear juices such as apple juice or Gatorade, carbonated beverages, clear tea, black coffee, jello) until 2 hours before scheduled arrival at facility. After this time do not have anything by mouth which includes water, gum, candy, chewing tobacco, snuff or food items. Medications: -Unless instructed differently below, stay on all of your medications until your Procedure/Surgery. -The morning of the Procedure/Surgery take your blood pressure medications, heart medications or seizure medications with a small sip of water unless instructed differently by your physician. 1 week prior to your procedure: If you take insulin, diabetic medications or blood thinners such as Coumadin (warfarin), Plavix (clopidogrel), Ticlid (ticlopidine hydrochloride), Agrylin (anagrelide), Xarelto (Rivaroxaban), Pradaxa (Dabigatran), Eliquis (Apixaban), and Effient (Prasugrel). You MUST call the doctors who orders those medicines for instructions on altering the dosage or stopping them before your procedure. Important Reminders: - Candy, mints, and tobacco products are NOT permitted the morning of Procedure/Surgery. - Hearing aids, dentures and glasses may be worn the morning of Procedure/Surgery. If you develop symptoms such as a fever, cold, or flu, or have other changes to your health within TWO DAYS of your scheduled Procedure/Surgery or the morning of Procedure/Surgery, please contact the surgery center where you are scheduled. - YOU MUST HAVE A RESPONSIBLE TOP BOTTOM ATTACHING MACHINE OPERATOR TAKE YOU HOME. A SERVOMECHANISM ASSEMBLER OR SECURITY INSTALLATION TECHNICIAN CANNOT BE MADE A RESPONSIBLE TOP BOTTOM ATTACHING MACHINE OPERATOR. Please call [phone] and ask for Nurse Triage with any Questions or Concerns. Thank You documented in this encounter [facility] 03-02-2023 Hospital Discharg e instructions Patient Education [...] provider. Document Revised: 07/22/2021 Document Reviewed: 07/22/2021 [employer] Patient Education 2022 [employer] Follow Up Care 11/30/2021 13:34:28 With:DARRYN Alicia APRN, SHAHNAZ Ovalles, URL Address: When:Within 1 Year(s) [facility] 02-27-2023 Progress note Note Date/Time February 27, 2023 2:36pm [facility] [address] [place] [address] Wound Center Provider Note Signed Patient: Gerry Victoria MR#: [id number] : 1955 Acct:[id number] Age/Sex: 67 / F Copies to: Ward Zuniga,DO Adelia Saldana APRN~ HPI Date of Visit Date of Visit: Date of Service: 02/27/2023 Time of Service: 14:33 Narrative HPI: 02/02/23 Gerry is a 67 year old presenting to [facility] wound care for an initialvisit for [...] tolerate the treatment. Had been referred to [place] vein at her last visit here and will have to see what happened with that. 02/13/23 appears to have fungal rash, topical nystatin was escribed, unna danielap, [facility] as before 02/27/23 no fungal rash but now looks like dermatitis and so topical steroid and coconut oil was applied, has venous procedure in [place] tomorrow, 2 week appt here, can call if she feels like she needs an antibiotic if the steroid doesn't calm down the skin Subjective Pain Left Lower Leg: Pain Description: Intermittent Pain Intensity: 0 Wound/Ulcer History When did wound start?: January 2023 Left lateral lower leg ulcer Mode of Arrival/ Schedule Checker: Personal vehicle Lives with:: Alone Appetite Description: Within Normal Limits Who helps w/ dressing change?: Home Health Why Do You Need Help?: Can't Reach Ulcer, Limited mobility, Unsafe leave home byself and Taxing effort to leave home Smoking Status: Former smoker [facility] Medical History (Updated 02/27/23 @ 14:36 by [...] Rash contact metal agent Adverse Reaction (Verified 11/09/23 07:41) Hives Wound/Ulcer Left Lower Lateral Leg: Type: Venous Stasis Ulcer Thickness: Skin Breakdown Bed Appearance: Beefy Red, Epithelial Tissue or Bridge, [place] and Yellow Percent of Wound Bed Granulated/Red: 98 Percent of Devitalized: 2 Length (cm): 12.0 Width (cm): 10.0 Depth (cm): 0.1 CM Sq: 120.000 Surrounding Tissue Appearance: [place] and Hyperpigmented Surrounding Tissue Temp: Warm Drainage [...] 13 Dictated By: Adelia Saldana APRN DD/ 143 Signed By: <Electronically signed by CUBA Saldana> 02/27/23 1436 [facility] Work Phone: 1(805) 664-188111-20-2023 Progress note Author Adelia Saldana [facility] February 13, 2023 10:33am Note Date/Time February 13, 2023 10:33am [facility] [address] [place] [address] Wound Center Provider Note Signed Patient: Gerry Victoria MR#: [id number] : 1955 Acct:[id number] Age/Sex: 67 / F Copies to: Ward Zuniga,DO Adelia Saldana APRN~ HPI Date of Visit Date of Visit: Date of Service: 02/13/2023 Time of Service: : Narrative HPI: 02/02/23 Gerry is a 67 year old presenting to [facility] wound care for an initialvisit for [...] rash, topical nystatin was escribed, unnmaryann giraldo, [facility] as before Subjective Pain Left Lower Leg: Pain Description: Intermittent Pain Intensity: 4 Pain Management Techniques Other/Comment: PAIN IS PINCHY Wound/Ulcer History When did wound start?: January 2023 Left lateral lower leg ulcer Mode of Arrival/ Schedule Checker: Personal vehicle Lives with:: Alone Appetite Description: Within Normal Limits Who helps w/ dressing change?: Home Health Why Do You Need Help?: Can't Reach Ulcer, Limited mobility, Unsafe leave home byself and Taxing effort to leave home Smoking Status: Former smoker [facility] Medical History (Updated 02/13/23 @ 10:33 by [...] Breakdown Bed Appearance: Epithelial Tissue or Bridge, [place] and Yellow Percent of Wound Bed Granulated/Red: 95 Percent of Devitalized: 5 Length (cm): 12.5 Width (cm): 8.5 Depth (cm): 0.1 CM Sq: 106.250 Surrounding Tissue Appearance: [place] and Hyperpigmented Surrounding Tissue Temp: Warm Drainage [...] By: <Electronically signed by CUBA Saldana> 02/13/231032 [facility] Work Phone: 1(465) 156-538311-09-2023 Progress note Author Humphrey Major [facility] February 02, 2023 9:37am Note Date/Time February 02, 2023 7 :50am [facility] [address] [place] [address] Wound Center Provider Note Signed Patient: Gerry Victoria MR#: [id number] : 1955 Acct:[id number] Age/Sex: 67 / F Copies to: MD Ward Almaguer,DO Adelia Saldana APRN~ HPI Date of Visit Date of Visit: Date of Service: 02/02/2023 Time of Service: 07:50 Narrative HPI: 02/02/23 Gerry is a 67 year old presenting to [facility] wound care for an initialvisit for [...] lateral lower leg ulcer Mode of Arrival/ Schedule Checker: Personal vehicle Lives with:: Alone Appetite Description: Within Normal Limits Who helps w/ dressing change?: Home Health Why Do You Need Help?: Can't Reach Ulcer, Limited mobility, Unsafe leave home byself and Taxing effort to leave home Smoking Status: Former smoker [facility] Medical History (Updated 02/02/23 @ 07:52 by [...] Stasis Ulcer Thickness: Skin Breakdown Bed Appearance: [place] and Yellow Percent of Wound Bed Granulated/Red: 90 Percent of Devitalized: 10 Length (cm): 4 Width (cm): 2 Depth (cm): 0.1 CM Sq: 8.000 Surrounding Tissue Appearance: [place] and Hyperpigmented Surrounding Tissue Temp: Warm Drainage [...] signed by MD Humphrey Major> 02/02/23 0937 [facility] Work Phone: 1(118) 889-706210-09-2023 Evaluation note* Encounter Date Diagnosis Assessment Notes [...] in a month to assess her progress. [facility] 07-31-2023 Evaluation note* Encounter Date Diagnosis [...] her back when the ultrasound is complete. [facility] Other 07-11-2023 NoteMicrobiology PROCEDURE: Blood Culture Charcoal [R1] SOURCE: Blood BODY SITE: Arm L COLLECTED DATE/TIME: 09/27/2022 01:12 EDT RECEIVED DATE/TIME: 09/27/2022 01:37 EDT START DATE/TIME: 09/27/2022 01:37 EDT FREE TEXT SOURCE: IV teofilo Mckenna PA-C, Michelle Mckenna PA-C, Michelle Flores FINAL REPORTS Final Report [] Verified Date/Time: 10/04/2022 07:00 EDT No growth at 7 days. Performing Locations R1: This test was performed at: [facility], [address] [place] [address], [address] [place] [address], [facility] Foundation[facility] on above:Performed By: #### [id number] #### [facility] [address] [place] [address] [phone] NoteMicrobiology PROCEDURE: Blood Culture Charcoal [R1] SOURCE: Blood BODY SITE: Arm R COLLECTED DATE/TIME: 09/27/2022 01:22 EDT RECEIVED DATE/TIME: 09/27/2022 01:37 EDT START DATE/TIME: 09/27/2022 01:37 EDT FREE TEXT SOURCE: rt susan Mckenna PA-C, Michelle Mckenna PA-C, Michelle Flores FINAL REPORTS Final Report [] Verified Date/Time: 10/04/2022 07:00 EDT No growth at 7 days. Performing Locations R1: This test was performed at: [facility], [address] [place] [address], [id number]- , [place], [facility] FoundationComment on above:Performed By: #### [id number] #### [facility] [address] [place] [address] [phone] Evaluation + Plan noteExtracted from: Title:Admission H & P Author:Maliha PADILLA DO Date:09/27/22 1. Cellulitis of leg (L03.11 9: Cellulitis of unspecified part of limb) IV Zosyn. Patient was given 1 dose of vancomycin in the emergency department. Will screen for MRSA. If MRSA screen is positive we will continue vancomycin. 2. CAD (coronary atherosclerotic disease) (I25.10: Atherosclerotic heart disease of [place] coronary artery without angina pectoris) No active [...] deep vein thrombosis (DVT) prophylaxis (Z79.899: Other long wall shear operator (current) drug therapy) SCD, enoxaparin Orders: acetaminophen, [...] be observation status. Extracted from: Title:ED Note Author:Mcihelle Mckenna PA-C Date:09/27/22 1. Cellulitis of leg [...] Date:12/01/2022 01:00:00 PM Scheduled Provider:MARYCARMEN NAVA PA-C Location:[facility] Appointment Type:URO Office Visit Diagnostic Tests Pending * Blood Culture Charcoal 09/27/22 * Blood Culture Charcoal 09/27/22 * MRSA Screen 09/27/22 * CBC w/ Auto Diff 09/28/22 * Basic Metabolic Panel 09/28/22 * Magnesium Level 09/28/22 [facility]07-04-2023 NoteI was called to the bedside and [...] follow-up as soon as possible. Alexx Beal DO [facility] HospitalComment on above:Result Comment: Electronically Signed By: Alexx Beal DO\.br\Date and Time Signed: 09/27/22 08:17 [id number] Hospital Discharge instructions Patient Education 09/27/2022 08:15:11 Cellulitis, Adult, Chll-it-Hgww Cellulitis, Adult Cellulitis is a skin infection. [...] Follow these instructions at home: Medicines Take nkey-bkd-uzlksnx and prescription medicines only as told by [...] provider. Document Revised: 12/23/2021 Document Reviewed: 12/23/2021 [employer] Patient Education 2022 Centrl. Follow Up Care 09/26/2022 22:54:12 With:WARD ZUNIGA Address: [address] [place] [address] When:09/30/2022 [facility]07-04-2023 NoteChief Complaint pt to ED with c/o [...] E9/L (09/27/22 01:12:00) RBC: 3.7 E12/L Low (09/27/22:12:00) HGB: 9.6 gm/dL Low (09/27/22:12:00) Hct: 29.2 % Low (09/27/22:12:00) MCV: 79.9 fL Low (09/27/22:12:00) MCH: 26.4 pg Low (09/27/22:12:00) MCHC: 33 gm/dL (09/27/22:12:00) RDW: 15.9 % High (09/27/22:12:00) Platelet: 249 E9/L (09/27/22:12:00) MPV: 7.9 fL (09/27/22:12:00) Neutro Auto: 61.4 % (09/27/22:12:00) Lymph Auto: 18 % (09/27/22 01:12:00) Placer Auto: 11.2 % (09/27/22:12:00) Eos Auto: 8.4 % High (09/27/22:12:00) Basophil Auto: 1 % (09/27/22:12:00) Neutro Absolute: 3.6 E9/L (09/27/22:12:00) Lymph Absolute: 1.1 E9/L (09/27/22:12:00) Placer Absolute: 0.7 E9/L (09/27/22:12:00) Eos Absolute: 0.5 [...] Globulin: 3.2 gm/dL (09/27/22:12:00) A/G Ratio: 1.2 (09/27/22 01:12:00) Bili Total: 0.6 mg/dL (09/27/22 01:12:00) Bili [...] atherosclerotic disease) (I25.10: Atherosclerotic heart disease of [place] coronaryartery without angina pectoris) No active anginal complaints. We will resume home medications once reconciled 3. RLS (restless legs syndrome) (G25.81: Restless legs syndrome) Resume home medications once reconciled. 4. Hypo (more content not included)...[facility] FoundationComment on above:Result Comment: Electronically Signed By: Maliha PADILLA DO\.br\Date and Time Signed: 09/27/22 04:19 [id number] Hospital Discharge instructions Patient Education 07/26/2022 13:13:28 Post Op Patient Instructions - FT (CUSTOM) 07/26/2022 12:47:31 Minimally Invasive Cholecystectomy, Care After, Bgne-gp-Filf Minimally Invasive Cholecystectomy, Care After What can [...] Follow these instructions at home: Medicines Take libs-qti-xsjnqks and prescription medicines only as told by [...] cannot use soap and water, use hand branch library clerk. ?Change your bandage. ?Leave stitches (sutures) or [...] provider. Document Revised: 09/14/2021 Document Reviewed: 09/14/2021 [employer] Patient Education 2022 Centrl. 07/26/2022 12:45:51 Cholelithiasis Cholelithiasis Cholelithiasis is a [...] Follow these instructions at home: Medicines Take vngl-sne-ftawevt and prescription medicines only as told by [...] important. Where to find more information [employer] [place] of Diabetes and [employer]estive and Kidney Diseases: [...] provider. Document Revised: 02/03/2020 Document Reviewed: 02/03/2020 [employer] Patient Education 2022 Cent[employer]. Follow Up Care 07/15/2022 10:10:38 With:trauma clinic Address: Bri[address] [facility] [address] second floor, [address] [place] [address]- [phone] When:1 to 2 weeks Comments:plan for telephone follow up 08/05/22. We will call you between the hours of 10 am and 1pm on that day. [facility]05-02-2023 Evaluation + Plan noteExtracted from: Title:ANES Post General Author:Hugo Winston DO. Date:07/26/22 Plan Transfer/Discharge: Patient exhibiting no signs of N/V. Hydration status is adequate. Extracted from: Title:Mundo Delgado PRE Author:Luca Winston DO. Date:07/26/22 Plan [place] [employer]hesi[employer] (ASA) physical status classification: Class III. Anesthetic Preoperative Plan: Anesthesia General. Extracted from: Title:Mundo Delgado PRE Author:Luca Winston DO. Date:07/26/22 Plan [place] [employer]ologists (ASA) physical status classification: Class III. Anesthetic Preoperative Plan: Anesthesia General. Future Appointments Appointment Date:08/05/2022 11:00:00 AM Scheduled Provider: [facility] Type:Trauma Phone Visit (FT) Appointment Date:12/01/2022 01:00:00 PM Scheduled Provider:MARYCARMEN NAVA PA-C Location:[facility] Appointment Type:URO Office Visit [facility]04-19-2023 NoteProgress Note: Clinic Visit after hospitalization for [...] perc merlyn tube until surgery [facility] History of Present illness Narrative* Nikita Hein [...] surgery Nikita Hein MD documented in this [id number] NoteIR CONSULT Procedure: cholangiogram and percutaneous cholecystotomy [...] at home Case discussed with IR attending medical receptionist assistant El Hollis vice president quality improvement PGY-3[facility]04-12-20[facility] History and physical note* El Hollis MD [...] at home Case discussed with IR attending medical receptionist assistant El Hollis vice president quality improvement PGY-3 [facility] Work Phone: 1(170) 487-400804-12-2023 History and physical note* El Hollis MD [...] at home Case discussed with IR attending medical receptionist assistant El Hollis vice president quality improvement PGY-3 documented in this [id number] Telephone encounter Note* Telephone Encounter - Kendra Harrison RN - 07/06/2022 8:53 PM EDT Situation: Pt called states she is unsure how to flush gall bladder tube since it was changed yesterday. Background: 07/05/22 Procedure: Cholecystogram with catheter exchange Assessment: See triage Recommendation: Contacted IR medical receptionist assistant, Dr Hollis advised for pt to contact [...] No Protocols used: Post-Op Incision Symptoms and Aubeswyjq-Y-XW [id number] Miscellaneous Notes* Telephone Encounter - Kendra Harrison RN - 07/06/2022 8:53 PM EDT Situation: Pt called states she is unsure how to flush gall bladder tube since it was changed yesterday. Background: 07/05/22 Procedure: Cholecystogram with catheter exchange Assessment: See triage Recommendation: Contacted IR medical receptionist assistant, Dr Hollis advised for pt to contact [...] No Protocols used: Post-Op Incision Symptoms and Govasxnqw-A-UR documented in this [id number] Telephone encounter Note* Telephone Encounter - Taniya Coley - 07/06/2022 9:10 AM EDT Sindy Ratliff Patient: Gerry Victoria [phone] Ms. Victoria has an appt w/Ritter on 07/13/2022 at 2:45 pm. Pt complaining about severe pain last night, when she moved, it was an ache. She did not tell me where the pain was coming from, when I asked her. She stated that today she feels better, but she was concerned about the pain she experienced last night 07/05/2022. [id number] Miscellaneous Notes* Telephone Encounter - Taniya Coley - 07/06/2022 9:10 AM EDT Sindy Ratliff Patient: Gerry Victoria [phone] Ms. Victoria has an appt w/Ritter on 07/13/2022 at 2:45 pm. Pt complaining about severe pain last night, when she moved, it was an ache. She did not tell me where the pain was coming from, when I asked her. She stated that today she feels better, but she was concerned about the pain she experienced last night 07/05/2022. documented in this [id number] NoteEXAMINATION: XA CHOLANGIOGRAM EXISTING ACCESS (RHETT) 07/05/2022 03:27 PM CLINICAL HISTORY: Rad Procedure required: = cholangiogram through existing perc merlyn tube,eval foropen cystic duct ASSOCIATED DIAGNOSIS: Acute cholecystitis ORDERING PROVIDER: NIKITA CARRERA NOTE: 10F x 24cm Single Step Drainage [...] successful exchange of drainage catheter. MACRO: NoneThe [facility] [id number] NotePOST-PROCEDURE NOTE Procedure: Cholecystogram with catheter exchange Pre-operative Diagnosis: History of acute cholecystitis managed with existing catheter. Post-operative Diagnosis: Same as above Attending: Dr. Fernando Show Girl: None A TIME OUT was performed prior [...] for full procedural details. Marcella Fernando MD [facility]04-11-2023 NoteEXAMINATION: XA CHOLANGIOGRAM EXISTING ACCESS [...] successful exchange of drainage catheter. MACRO: None [id number] NotePre-Procedure Note HISTORY: Procedure: Cholangiogram via existing [...] Directives (Living will, health care power of state attorney): none Patient Recent Code Status: Prior Code Status For This Procedure: Full Code Marcella Fernando MD [facility]04-[facility]-2023 Telephone encounter Note* Telephone Encounter - Anya Morelos - 07/05/2022 3:11 PM EDT Patient returned clinic call. Informed of message per notes below. Patient verbalized understandingand voiced no further questions. [id number] Miscellaneous Notes* Telephone Encounter - Anya Morelos [...] left the voice message. documented in this [id number] Miscellaneous Notes* Telephone Encounter - Anya Morelos - 07/05/2022 3:11 PM EDT Patient returned clinic call. Informed of message per notes below. Patient verbalized understandingand voiced no further questions. * Telephone Encounter - Taniya Coley - 07/05/2022 3:07 PM EDT Ironroya would like Ms. Victoria to be scheduled in the office next Monday. Appt has been made on 07/13/2022 at 2:45 pm. Called patient to schedule her appt, so I left a voice message, I gave her my name, number and timeI left the voice message. Ms. Victoria returned my call and accepted the appt date and time. documented in this [id number] Telephone encounter Note* Telephone Encounter - Taniya [...] and accepted the appt date and time. [id number] Note* Post-Procedure Note - Marcella Fernando MD - 07/05/2022 2:44 PM EDT POST-PROCEDURE NOTE Procedure: Cholecystogram with catheter exchange Pre-operative Diagnosis: History of acute cholecystitis managed with existing catheter. Post-operative Diagnosis: Same as above Attending: Dr. Fernando Show Girl: None A TIME OUT was performed prior [...] the study. Please see procedure dictation in [employer]/PACS for full procedural details. Marcella Fernando MD Radiology [employer] Work Phone: 1(862) 405-827304-11-2023 Miscellaneous Notes* Post-Procedure Note - Marcella Fernando MD - 07/05/2022 2:44 PM EDT POST-PROCEDURE NOTE Procedure: Cholecystogram with catheter exchange Pre-operative Diagnosis: History of acute cholecystitis managed with existing catheter. Post-operative Diagnosis: Same as above Attending: Dr. Fernando Show Girl: None A TIME OUT was performed prior [...] the study. Please see procedure dictation in [employer]/PACS for full procedural details. Marcella Fernando MD [...] Directives (Living will, health care power of state attorney): none Patient Recent Code Status: Prior Code Status For This Procedure: Full Code Marcella Fernando MD Radiology documented in this [id number] Note* Pre-Procedure Note - Marcella Fernando MD [...] Directives (Living will, health care power of state attorney): none Patient Recent Code Status: Prior Code Status For This Procedure: Full Code Marcella Fernando MD Radiology [id number] Telephone encounter Note* Telephone Encounter - Taniya Coley - 06/27/2022 1:27 PM EDT Pt called c/o sx of poor leg circulation,and Gaudencio spoke to her to triage the patient. [id number] Miscellaneous Notes* Telephone Encounter - Brijesh Taniya - 06/27/2022 1:27 PM EDT Pt called c/o sx of poor leg circulation,and Gaudencio spoke to her to triage the patient. documented in this [id number] NoteProgress Note: Clinic Visit after hospitalization for [...] for 2 mg QID [facility]ita Hein MDThe [facility]03-25-2023 Note* Addendum Note - Nikita Hein MD - 06/18/2022 3:47 PM EDTAddended by: NIKITA HEIN on: 06/18/2022 03:47 PM Modules accepted: Orders, Level of Service [id number] Miscellaneous Notes* Addendum Note - Nikita Hein MD - 06/18/2022 3:47 PM EDTAddended by: NIKITA HEIN on: 06/18/2022 03:47 PM Modules accepted: Orders, Level of Service documented in this [id number] History of Present illness Narrative* Nikita Hein [...] QID Nikita Hein MD documented in this [id number] Telephone encounter Note* Telephone Encounter - Laura [...] to her in the mail by Monday [id number] Miscellaneous Notes* Telephone Encounter - Laura Faust - 06/17/2022 11:27 AM EDT Sophy transferred phone call to me, when the patient and I started talk I realized it was the patientI had Sophy working on since Dr. Hein seen her in clinic on [facility]. Sophy said she spoke to patient yesterday, so I just told her what Sophy told me that Dr. Hein will handle the Rx to have the scan done out where she lives and that Sophy will get it to her in the mail by Monday documented in this [id number] Telephone encounter Note* Telephone Encounter - Taniya Coley - 06/16/2022 2:02 PM EDT Sindy Fernandoss, Patient: Gerry Victoria [phone] Ms. Victoria had a visit with Dr. Conley on Monday06/15/2022, seen by Dr. Hein in yesterday's clinic. Questions: Ultrasound order was placed for Ms. Victoria, do she have to come her to [facility] to have the ultrasound, or can she have the ultrasound done in [place]? (there is not a [facility] in [place]) Medication refill of Ropinirole 2mg 1-tab QD was not received by her pharmacy, can you call in the prescription to my pharmacy at ([facility] ) [phone]?. I am waiting for Carmen, or and or Dr. Conley to respond. Sophy Pt was told that Dr. Hein was out of town and that she will receive the prescription in the mail.I will call the patient to find out what hospitals she will be going to in [place] [phone] fax:[phone] Gaudencio spoke to her about the prescription and to contact her pharmacy about the ropinirole 2 mg to [facility]. Addendum: IR procedure, Gaudencio will follow-up with [facility] to see if they can do the IR procedure, we will submit or fax orders at that time. [id number] Miscellaneous Notes* Telephone Encounter - Coley Taniya - 06/16/2022 2:02 PM EDT Sindy Morales, Patient: Gerry Victoria [phone] Ms. Victoria had a visit with Dr. Conley on Monday06/15/2022, seen by Dr. Hein in yesterday's clinic. Questions: Ultrasound order was placed for Ms. Victoria, do she have to come her to [facility] to have the ultrasound, or can she have the ultrasound done in [place]? (there is not a [facility] in [place]) Medication refill of Ropinirole 2mg 1-tab QD was not received by her pharmacy, can you call in the prescription to my pharmacy at [facility] ) [phone]?. I am waiting for Carmen, or and or Dr. Conley to respond. Sophy documented in this [id number] Miscellaneous Notes* Telephone Encounter - Coley Taniya - 06/16/2022 2:02 PM EDT Sindy Morales, Patient: Gerry Victoria [phone] Ms. Victoria had a visit with Dr. Conley on Monday06/15/2022, seen by Dr. Hein in yesterday's clinic. Questions: Ultrasound order was placed for Ms. Victoria, do she have to come her to [facility] to have the ultrasound, or can she have the ultrasound done in [place]? (there is not a [facility] in [place]) Medication refill of Ropinirole 2mg 1-tab QD was not received by her pharmacy, can you call in the prescription to my pharmacy at [facility] ) [phone]?. I am waiting for Carmen, or and or Dr. Conley to respond. Sophy Pt was told that Dr. Hein was out of town and that she will receive the prescription in the mail.I will call the patient to find out what hospitals she will be going to in [place] [phone] fax:[phone] Gaudencio spoke to her about the prescription and to contact her pharmacy about the ropinirole 2 mg to [facility]. documented in this [id number] Miscellaneous Notes* Telephone Encounter - Taniya Coley - 06/16/2022 2:02 PM EDT Sindy Morales, Patient: Gerry Victoria [phone] Ms. Victoria had a visit with Dr. Conley on Monday06/15/2022, seen by Dr. Hein in [facility] clinic. Questions: Ultrasound order was placed for Ms. Victoria, do she have to come her to [facility] to have the ultrasound, or can she have the ultrasound done in [place]? (there is not a [facility] in [place]) Medication refill of Ropinirole 2mg 1-tab QD was not received by her pharmacy, can you call in the prescription to my pharmacy at ([facility] ) [phone]?. I am waiting for Carmen, or and or Dr. Conley to respond. Sophy Pt was told that Dr. Hein was out of town and that she will receive the prescription in the mail.I will call the patient to find out what hospitals she will be going to in [place] [phone] fax:[phone] Gaudencio spoke to her about the prescription and to contact her pharmacy about the ropinirole 2 mg to [facility]. Addendum: IR procedure, Gaudencio will follow-up with [facility] to see if they can do the IR procedure, we will submit or fax orders at that time. documented in this [id number] Telephone encounter Note* Telephone Encounter - Maegan Morris, RN - 05/27/2022 4:02 PM EST Situation: [...] Not assessed Protocols used: Post-Op Symptoms and Ssbgtytmy-F-XW, Breathing Depzttipoq-W-KF [id number] Miscellaneous Notes* Telephone Encounter - Maegan Morris [...] Not assessed Protocols used: Post-Op Symptoms and Xqoslldrc-D-TV, Breathing Jewijqcmdr-P-QE documented in this [id number] NoteDISCHARGE SUMMARY [address] [address] Gerry Victoria Date of : 1955 66 year oldfemale Attending Ward Graves MD Date of Admission 05/16/2022 Date of Discharge 05/25/2022 [facility] EMERGENCY [...] and h/o paroxysmal SVT who [facility] with epigastric pain with nausea and vomiting. Patient describes onset of pain on prior day that has increased since then. Shortly after onset of pain, patient experienced nausea and persistent vomiting, now unable to tolerate PO intake. Denies fevers, chills. She presented to [facility] where EKG demonstrated 'hyperacute T waves' in multiple leads without evidence of STEMI. Troponin originally 139, then 381 on repeat. CTA was performed and did not reveal dissection or PE. CT did demonstrate acute inflammation of the gallbladder with a stone at the neck. A central line was placed for resuscitation purposes and the patient was transferred to [facility] for further evaluation. Prior to transfer, lab work without leukocytosis (10.7) and LFTs/Lipase without abnormality. ACS consulted upon arrival to [facility] for cholecystitis. She was admitted to the SDU for telemetry under EGS but transferred to [facility] on 05/20/22 SIGNIFICANT FINDINGS: N/A Incidental findings reviewed by AEM on 05/24/22. No incidental findings to discuss. HOSPITAL COURSE: 05/16/2022: Transferred from [facility] ED with cholecystitis, up-trending troponin, and unclear EKG findings. Up-trending leukocytosis, down-trending troponin by PM. Cardiology following. Zosyn started. 05/17/2022: rCT with worsening gallbladder inflammation w/o free air or rupture. Percutaneous cholecystotomy tube placement with IR. 05/19/2022: Bilious emesis, NGT placed 05/20/2022: Transferred to [facility] 05/21/2022: Zosyn course completed (4 days s/p drain) 05/22/2022: YANN, ongoing bilious NGT output 05/23/2022: [facility] with mild non-obstructive diffuse coronary [...] - Seen resting supine in bed in [facility] -Neurologic - No focal deficits, clear speech [...] venous stasis t (more content not included)...[facility] [id number] NoteDISCHARGE SUMMARY [address] [place] [address] Gerry Victoria Date of : 1955 66 year oldfemale Attending Ward Graves MD Date of Admission 05/16/2022 Date of Discharge 05/24/2022 [facility] EMERGENCY [...] and h/o paroxysmal SVT who [facility] with epigastric pain with nausea and vomiting. Patient describes onset of pain on prior day that has increased since then. Shortly after onset of pain, patient experienced nausea and persistent vomiting, now unable to tolerate PO intake. Denies fevers, chills. She presented to [facility] where EKG demonstrated 'hyperacute T waves' in multiple leads without evidence of STEMI. Troponin originally 139, then 381 on repeat. CTA was performed and did not reveal dissection or PE. CT did demonstrate acute inflammation of the gallbladder with a stone at the neck. A central line was placed for resuscitation purposes and the patient was transferred to [facility] for further evaluation. Prior to transfer, lab work without leukocytosis (10.7) and LFTs/Lipase without abnormality. ACS consulted upon arrival to [facility] for cholecystitis. She was admitted to the SDU for telemetry under EGS but transferred to [facility] on 05/20/22 SIGNIFICANT FINDINGS: N/A Incidental findings reviewed by AEM on 05/24/22. No incidental findings to discuss. HOSPITAL COURSE: 05/16/2022: Transferred from [facility] ED with cholecystitis, up-trending troponin, and unclear EKG findings. Up-trending leukocytosis, down-trending troponin by PM. Cardiology following. Zosyn started. 05/17/2022: rCT with worsening gallbladder inflammation w/o free air or rupture. Percutaneous cholecystotomy tube placement with IR. 05/19/2022: Bilious emesis, NGT placed 05/20/2022: Transferred to [facility] 05/21/2022: Zosyn course completed (4 days s/p drain) 05/22/2022: YANN, ongoing bilious NGT output 05/23/2022: [facility] with mild non-obstructive diffuse coronary [...] discharge: improved Diet: (more content not included)...[facility] Hospital[facility] Alley [id number] Note PHYSICAL THERAPY PROGRESS SUMMARY Patient seen [...] Dep Max Mod Min CG CS DS AK I Comment Supine to sit x Via [...] With Patients permission ordered no equipment via [employer] Order. If any questions contact [facility] Provider at [phone]. Pt has rolling walker to use if [...] achieving PT goals. Dara West LPTA Beeper #[phone] Agree with above; D/C Acute PT this date 2* to modified (I) level of function. Tawny Peñaloza, PT, MPT (B) [phone] NA = Not Assessed, I = Independent, AK = Modified Independent, Sup = Supervised, Set up = Physical Assistance for Set-up Only, Min = Minimal Assistance, Mod = Moderate Assistance, Max = Maximal assistance; Dep = Dependent; AROM = Active Range of Motion; PROM = Passive Range of Motion; MMT = Manual Muscle TestThe [employer] [id number] NoteSusan Didion [id number] Procedure Indication: Other: Myocardial injury due to [...] needed: No Anticoagulation Plan: None Attending: [facility]02-26-2023 NoteOCCUPATIONAL THERAPY INITIAL EVALUATION Patient seen [...] Dep Max Mod Min CG CS DS AK I Set-Up Comment Feeding x Anticipated, NPO [...] Dep Max Mod Min CG CS DS AK I Set-Up Comment Toilet Transfers x Anticipated [...] Guard Assist/Supervision 4 - Non = Modified Romeo/Independent ASSESSMENT: Patient is functionally appropriate for discharge [...] Independent Patient will (more content not included)...The [facility] [id number] Note PHYSICAL THERAPY PROGRESS SUMMARY Patient seen from 1:27pm to 1:47pm on GC5E unit for 20 minute treatment. SUBJECTIVE: Patient Subjective/Goals: I'm glad you're here. OBJECTIVE: Appearance: IV, Drain-IR x 1, and NG to wall suction (clamped for session) Behavior: Awake, Cooperative Pain: Site/Location: none noted during session Mobility NA Dep Max Mod Min CG CS DS AK I Comment Supine to sit x Transfers [...] With Patients permission ordered no equipment via The [employer] Order. If any questions contact [facility] DME Provider at [phone]. 6 Clicks Basic Mobility PT 05/20/2022 Difficulty [...] follow established Plan of Care. Lizz Chandler, ROBERT NA = Not Assessed, I = Independent, AK = Modified Independent, Sup = Supervised, Set up = Physical Assistance for Set-up Only, Min = Minimal Assistance, Mod = Moderate Assistance, Max = Maximal assistance; Dep = Dependent; AROM = Active Range of Motion; PROM = Passive Range of Motion; MMT = Manual Muscle TestThe [facility] [id number] NoteSICU Progress Note Gerry Victoria [id number] LOS: 4 days : Interval History/Events: Pain improved Started vomiting this am Passing gas Background: Gerry Victoria is a 66 year old female with PMH of hypertension, RLS, GERD who [facility] with progressive worsening epigastric pain [...] Gap Glu BUN Cr Ca Mg PO4 05/20/22 0217 1.8 05/20/22 021 137 3.8 100 30 [...] without focal consolidation, no pneumothorax - respiratory media strategist protocol, BPH, IS CARD: #T2MI #possible CAD [...] RUQ US with (more content not included)...The [facility] [id number] Note 05/19/22 1540 Assessment and Discharge Planning [...] SW or DC concerns arise. Annabelle Connor, [facility], LSWT [facility] [id number] NotePHYSICAL THERAPY PROGRESS SUMMARY PT tx cleared by RN. Patient seen from 1354 to 1417 on 5W unit for 23 minute treatment. SUBJECTIVE: Patient Subjective/Goals: oh, look at you! Re: PT untangling lines and wires. 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 If any questions contact [facility] DME Provider at [phone]. 6 Clicks Basic Mobility PT 05/18/2022 Difficulty [...] NA = Not Assessed, I = Independent, AK = Modified Independent, Sup = Supervised, Set up = Physical Assistance for Set-up Only, Min = Minimal Assistance, Mod = Moderate Assistance, Max = Maximal assistance; Dep = Dependent; AROM = Active Range of Motion; PROM = Passive Range of Motion; MMT = Manual Muscle TestThe [facility] [id number] NoteSICU Progress Note Gerry Julien [id number] POD#: 0 LOS: 3 days : Interval History/Events: Pain improved Started vomiting this am Passing gas Background: Gerry Victoria is a 66 year old female with PMH of hypertension, RLS, GERD who presented to [facility] with progressive worsening epigastric pain [...] (25.9 mL/kg) [P.O.:120; I.V.:1950 (1 mL/kg/hr)] Out: 255 (31.9 mL/kg) [Urine:2300 (1.2 mL/kg/hr); Drainage:255] Net: [...] Gap Glu BUN Cr Ca Mg PO4 05/19/225 1.8 05/19/22354 139 3.5 102 31 [...] 82 15.3 177 05/17/22 0411 34 05/17/22 041 1.61 05/17/22410 12.3 4.37 12.1 36.4 83 15.8 232 WBC/Diff None Cardiac None Most Recent Ventilator Settings: NM 1L Arterial Blood Gases None Urine Culture [...] AND Ox3 CV: RRR Pulm: CTAB on Ny Abdomen: still diffusely tender to palpation Extremities: [...] without focal consolidation, no pneumothorax - respiratory media strategist protocol, BPH, IS CARD: #T2MI #possible CAD [...] or longer GI: (more content not included)...The [facility] [id number] NotePHYSICAL THERAPY ACUTE EVALUATION Referral received, chart [...] legs Patient Identified Goal(s): 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 If any questions contact [facility] DME Provider at [phone]. 6 Clicks Basic Mobility PT 05/18/2022 Difficulty [...] functional mobility Decreased (more content not included)...[facility] [id number] Note EXAMINATION: XA PERCUTANEOUS CHOLECYSTOSTOMY (RHETT) 05/17/2022 [...] was used for local anesthesia. A 5F Textbrokereh catheter over its matched stylet was inserted into the gallbladder lumen under ultrasoundguidance. The stylet was removed. An Amplatz wire was passed through the catheter and the catheter removed. Ultrasound was utilized to document wire position within the gallbladder lumen. Serial dilatation was then subsequently performed with an 8 and 10 Gambian dilator. A 10 F all purpose drain [...] Technically successful uncomplicated cholecystostomy tube placement. MACRO: [facility]02-22-2023 NoteSICU Progress Note Gerry Victoria [id number] POD#: 0 LOS: 2 days : Interval History/Events: Background: Gerry Victoria is a 66 year old female with PMH of hypertension, RLS, GERD who presented to [facility] with progressive worsening epigastric pain [...] 10.1 28.2 82 15.3 177 05/17/221 34 05/17/22 0411 1.61 05/17/22410 12.3 4.37 [...] without focal consolidation, no pneumothorax - respiratory media strategist protocol, BPH, IS CARD: #T2MI #possible CAD [...] CBC Endo Glycemic (more content not included)...[facility] [id number] Note POST-PROCEDURE NOTE Procedure: US guided percutaneous cholecystotomy tube Pre-operative Diagnosis: Acute cholecystitis Post-operative Diagnosis: Same Attending: Kim Fernando MD Show Girl: Bunny Wolf TIME OUT was performed prior [...] of the procedure. El Hollis MD [facility]iologyThe [facility] NotePre-Procedure Note HISTORY: Procedure: US guided percutaneous [...] mg Oral 2x Daily 100 mg at 05/17/2247 senna (SENOKOT) tablet 8.6 mg Oral At [...] Directives (Living will, health care power of state attorney): yes, Patient Recent Code Status: Full Code Code Status For This Procedure: Full Code El Hollis MD [facility]iologyThe [facility]02-21-2023 NotePHYSICAL THERAPY CHART REVIEW Referral received, chart reviewed. RN request to hold therapy this date. Pt with 10/10 pain, just returned from CT with team deciding on emergent operation vs IR cholecystostomy tube placement. Evaluation to follow as appropriate Admit date/time: 05/16/2022 2:08 AM Reason for Admit: epigastric pain with nausea and vomiting Diagnosis: Cholecystitis Precautions: Full Code Porter Past Medical and Surgical History: PMH: Past Medical History: Diagnosis Date Restless leg PSH: Past Surgical History: Procedure Laterality Date TOTAL ABDOMINAL HYSTERECTOMY W/WO REMOVAL TUBE(S)/OVARY(S) Chu Warren, [facility]02-21-2023 NoteSICU Progress Note Gerry Victoria [id number] POD#: 0 LOS: 1 day : Interval History/Events: Background: Gerry Victoria is a 66 year old female with PMH of hypertension, RLS, GERD who presented to [facility] with progressive worsening epigastric pain [...] Glu BUN Cr Ca Mg PO4 05/17/22 041 3.9 05/17/22 0411 1.9 05/17/22 041 131 4.1 97 27 11 96 14 0.97 8.1 05/16/22221 136 4.9 100 27 14 119 9 0.76 8.6 CBC/PT/INR WBC RBC Hgb Hct MCV RDW Plt PT aPTT INR 05/17/22 0411 34 05/17/22 0411 1.61 05/17/22 0411 12.3 4.37 12.1 36.4 83 15.8 232 05/16/22 0222 1.10 05/16/22 0222 55 05/16/22221 11.3 4.74 13.0 39.2 83 15.3 290 WBC/Diff Neutro% Segs% Bands% Lymphs% Monos% Eos% Basos% 02/20/23 0222 82.4 10.9 6.1 0.1 0.5 Cardiac None [...] without focal consolidation, no pneumothorax - respiratory media strategist protocol, BPH, IS CARD: #T2MI #possible CAD [...] Flor Chew MD Preliminary IM/Anesthesiology PGY-1 Pager: [phone] Teaching Physician Note: I saw and evaluated the patient. I personally obtained the bhandari and (more content not included)...[facility] [id number] NoteMARYMOUNT [facility] OF [facility] C[facility] SURGERY SURGICAL CRITICAL CARE HISTORY AND PHYSICAL Reason for consultation: acute cholecystitis, elevated troponins Referring physician: Connie Cote HPI: Gerry Victoria is a 66 year old female with PMH of hypertension, RLS, GERD who presented to [facility] with progressive worsening epigastric pain [...] -- 98 20 97 % -- -- 05/16/22222 -- 99.7 ???F (37.6 ???C) Oral -- [...] pt body habitu (more content not included)...The [facility] [id number] Evaluation note* Encounter Date Diagnosis Assessment Notes Treatment Notes Treatment Clinical Notes Nov, Irritable bowel syndrome with constipation (ICD-10 - K58.1) Nov, Dysphagia (ICD-10 - R13.10) Continue Omeprazole [employer] Other 09-06-2022 Hospital Discharge instructions Patient Education [...] fried and sweet foods. General instructions Take ufgg-sct-xtqhcof and prescription medicines only as told by [...] 01/07/2010 Document Revised: 07/04/2019 Document Reviewed: 03/29/2018 [employer] Patient Education 2019 [employer] Follow Up Care 11/12/2021 11:10:16 With:MARYCARMEN NAVA PA-C, URL Address: When:1 year [facility] [place] 05-05-2022 Hospital Discharge instructions Patient [...] nerve stimulation). For women, using a medical lead to prevent urine leaks. This is a [...] right after experiencing incontinence. General instructions Take bgum-gtb-mavjwzk and prescription medicines only as told by [...] 04/20/2005 Document Revised: 03/23/2018 Document Reviewed: 06/22/2017 [employer] Patient Education 2020 [employer] 07/29/2021 08:21:46 Overactive Bladder, Adult Overactive Bladder, [...] fried and sweet foods. General instructions Take lnhs-ufd-dsjbyld and prescription medicines only as told by [...] 01/07/2010 Document Revised: 07/04/2019 Document Reviewed: 03/29/2018 [employer] Patient Education 2019 [employer] Follow Up Care 07/08/2021 10:23:59 With:ELIJAH SNOWDEN, MARYCARMEN Enrique, URL Address: [address] [facility] [address] When: Unknown [facility] [place] 04-07-2022 Evaluation note* Encounter Date [...] Encouraged pt to increase daily fiber intake. [employer] Other 11-30-2021 Evaluation note* Encounter Date Diagnosis [...] see her back on an as-needed basis. [employer] Other 10-05-2021 Evaluation note* Encounter Date Diagnosis [...] that. I am sending her to the [facility] for treatment at her request. Dec, Spondylolisthesis, lumbar region (ICD-10 - M43.16) This patient has a definite spondylolisthesis and probably stenosis. But really does not truly have neurogenic claudication; it is not bilateral and appears to be more sacroiliac. She will try pain management first. [facility] INRFOOD Other chief complaint Narrative - ReportedGERRY VICTORIA is being seen for a consultation for atrial flutter and palpitations. F/u heart cath done in [facility] 600 DO Work Phone: Evaluation + Plan note Future Appointments Appointment Date:10/05/2021 11:00:00 AM Scheduled Provider:MARYCARMEN NAVA PA-C Location:[facility] Appointment Type:URO Office Visit [facility] Evaluation + Plan note Future Appointments Appointment Date:12/01/2022 01:00:00 PM Scheduled Provider:MARYCARMEN NAVA PA-C Location:[facility] Appointment Type:URO Office Visit [facility] Evaluation + Plan note Future Appointments Appointment Date:07/26/2022 08:00:00 AM Scheduled Provider: Location:[facility] Appointment Type:Surgery FT Appointment Date:12/01/2022 01:00:00 PM Scheduled Provider:MARYCARMEN NAVA PA-C Location:[facility] Appointment Type:[facility] Future Appointments Appointment Date:03/14/2024 01:00:00 PM Scheduled Provider:MARYCARMEN NAVA PA-C Location:[facility] Appointment Type:URO Office Visit [facility] Evaluation noteNo Assessments Information Available [facility] assessment information available [facility] noteNo People Operating TechnologyNosaint john[facility] health system GENBAND Other evaluation note* Diagnosis Acute cholecystitis- Primary [...] chronic Candidiasis resolved [facility] Work Phone: evaluation note* Diagnosis Internal derangement of left shoulder documented in this encounter [facility] Healthcare[facility] note* Diagnosis Epigastric pain Abdominal pain, epigastric Heartburn [facility] Diagnosis Primary hypertension (CMS/HCC)- Primary Unspecified essential hypertension Unspecified inflammatory spondylopathy, 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) Major depressive disorder, recurrent, moderate (F33.1) Major depressive disorder, recurrent episode, moderate Coronary artery disease involving [place] coronary artery of [place] heart without angina pectoris (CMS/HCC) Fibromyalgia Unspecified myalgia and myositis Acquired hypothyroidism (CMS/HCC) Unspecified hypothyroidism Anemia, unspecified type Mixed hyperlipidemia (CMS/HCC) Mixed hyperlipidemia Recurrent major depressive disorder, in partial remission (HCC) (CMS/HCC) Other chronic pain Spinal stenosis, lumbar region without neurogenic claudication documented [facility] Narrative - Reported* Type Description Date Medical History Degenerative disc disease Medical History Fibromyalgia Medical History Arthritis Medical History Anxiety Medical History Depression Medical History varicose veins Medical History chronic fatigue syndrome Medical History PSVT Surgical History Bilateral knee replacements Surgical History Procedure:H 1 Vaccine,Feb;Disea se: 2008 Surgical History HYSTERECTOMY 1983 Surgical [...] RIGHT LEG 10/16/2020 Hospitalization History see above [facility] Other History general Narrative - Reported* Type Description Date Medical History Degenerative disc disease Medical History Fibromyalgia Medical History Arthritis Medical History Anxiety Medical History Depression Medical History varicose veins Medical History chronic fatigue syndrome Medical History PSVT Surgical History Bilateral knee replacements Surgical History Procedure:H 1 Vaccine,Feb;Disea se: 2008 Surgical History HYSTERECTOMY 1983 Surgical [...] Left leg 01/14 Hospitalization History see above [facility] Other History of Present illness Narrative* Patient is here for cardiovascular evaluation following recent hospitalization for what appeared tahng acute cholecystitis. Records were retrieved and reviewed. Patient presented to [facility] with symptoms of abdominal pain and was diagnosed with what appeared to be gallbladder disease and peritonitis.She was transferred to [facility] where she underwent work-up. 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 She [...] The patient to keep her appointment with [facility] surgery for upcoming procedure of cholecystectomyand gallbladder drainage removal * 5. I advised the patient she can use some ejst-boj-dnbmwcm Claritin to address her what appeared thang drug induced allergic reaction -[facility] MinnesotaValidus [employer] Corporation DO Work Phone: Hospital course Narrative No data available for this section [facility] Discharge instructions* Attachments The following attachments cannot be sent through Care Everywhere. * Percutaneous Transhepatic Cholangiogram Discharge Instructions (Luxembourger) [facility] Discharge instructions No data available for this section [facility] Additional Instructions Follow-up with your primary care doctor Return to ED if develop worsening symptoms or [facility] Work Phone: Progress note No data available for this section [facility] Reason for referral (narrative)* Outpatient Procedure (Routine) - Closed Specialty Diagnoses / Procedures Referred By Megan hernandez Referred To Contact [facility] Diagnoses Epigastric pain Heartburn Procedures EGD DIAGNOSTIC ESOPHAGOGASTRODUODENOSC OPY TRANSORAL DIAGNOSTIC Jaja Reddy MD [address] [address] [facility] [place] [address] [place] [address] Referral ID Status Reason Start Date Expiration Date V isits Requested Visits Authorized [id number] Closed Auto-Generate d Referral 04/19/2023 04/19/2024 1 1 [facility] for visit Narrative* Consultation (Routine) - Authorized Specialty Diagnoses / Procedures Referred By Megan hernandez Referred To Contact Physical Therapy Diagnoses Internal derangement of left shoulder Procedures SC OFFICE/OUTPATIENT NEW HIGH MDM 60 MINUTES Jr. Victoria Haynes, DO [address] [facility] [address] [place] [address] Angelita Carbone, PT [address] [place] [address] Referral ID Status Reason Start Date Expiration Date Visits Requested Visits Authorized [id number] Authorized Consult and Treat 04/26/2023 10/23/2023 99 99 [facility] for visit Narrative* Outpatient Procedure (Routine) - Closed Specialty Diagnoses / Procedures Referred By Megan t Referred To Contact [facility] Diagnoses Epigastric pain Heartburn Procedures EGD DIAGNOSTIC ESOPHAGOGASTRODUODENOSC OPY TRANSORAL DIAGNOSTIC Jaja Reddy MD [address] [facility] [facility] [facility] [place] [address] [facility] [place] [address] [place] [address] Referral ID Status Reason Start Date Expiration Date V isits Requested Visits Authorized [id number] Closed Auto-Generate d Referral 04/19/2023 04/19/2024 1 1 [facility] Advance Directives Advance Directive Response Recorded Date/ Time Advance [...] Date Activated Date Inactivated Comments Full Code 01/02/2023 1:50 PM Latest Code Status on File Code Status Date Activated Date Inactivated Comments Full Code 01/02/2023 1:50 PM Chief Complaint and Reason for Visit Chief [...] of adenomatous colonic polyps acute Family History Relationship Condition Age at Onset Recorded Date/T [...] RADIOLOGY PROCEDURE SERVICE Nikita Hein MD [address] [place] [address] [facility] ULTRASOUND [address] [place] [id number] Referral ID Status Reason Start Date Expiration Date V isits Requested Visits Authorized [id number] Authorized 06/15/2022 06/15/2023 1 1 Reason Evaluate and Tr eat Diagnosis 1 Spondylolisthesis, l umbar region (M43.16) Referral Organization [facility] Ne urosurgery Referring Provider First Name Michael Referring Provider Last Name Keanu Referring Provider Specialty Neurologica l Surgery Referred Organization [facility] Referred Provider Crow Hale Referred Address [address] [place] [phone] Referred Provider Specialty Pain Medicin e Referral [...] section and content) DATE CREATED AUTHOR 07/07/2021 [facility] dical Specialist DATE CREATED AUTHOR AUTHOR'S ORGANIZ ATION 07/02/2022 [employer] DATE CREATED AUTHOR AUTHOR'S ORGANIZ ATION 09/14/2022 [facility] DATE CREATED AUTHOR AUTHOR'S ORGANIZ ATION 10/07/2022 [facility] DATE CREATED AUTHOR AUTHOR'S ORGANIZ ATION 03/04/2023 [facility] DATE CREATED AUTHOR AUTHOR'S ORGANIZ ATION 03/17/2023 [facility] DATE CREATED AUTHOR AUTHOR'S ORGANIZ ATION 05/04/2023 [facility] DATE CREATED AUTHOR AUTHOR'S ORGANIZ ATION 05/05/2023 [facility] dical Specialists EPIC DATE CREATED AUTHOR AUTHOR'S ORGANIZ ATION 05/09/2023 [facility] REASON FOR VISIT (unrecogniz ed section and content) Reason Onset Date Comments Advice/health education 05/27/2022 Specialty Diagnoses / Procedures Referred By Megan hernandez Referred To Contact Radiology Diagnoses Acute cholecystitis Procedures XA CHOLANGIOGRAM EXISTING ACCESS (RHETT) XA INTERVENTIONAL RADIOLOGY VASCULAR BODY PROCEDURES XA INTERVENTIONAL RADIOLOGY PROCEDURE SERVICE Nikita Hein MD [address] [place] [address] [place] [address] [address] ULTRASOUND [address] [place] [address] Referral ID Status Reason Start Date Expiration Date Visits Re quested Visits Authorized [id number] Closed 06/15/2022 06/15/2023 1 1 Reason Onset Date Comments Advice/health education 07/06/2022 Reason Comments Pre-Op Teaching Reason Comments 4 month F/U No labs done. Care Team (unrecognized sect ion and content) [...] Dates Ward Zuniga DO Primary Care Provider, Attending Sophie perez Active [...] Active Ward Mtz MD Attending Provider Active Business Liaison Manager Relationship Specialty Start Date End Date Ward Zuniga DO [address] [place] [address] PCP - General Internal Medicine 04/19/23 Business Liaison Manager Relationship Specialty Start Date End Date Ward Zuniga DO [address] [place] [address] PCP - General Internal Medicine 04/20/23 Business Liaison Manager Relationship Specialty Start Date End Date Ward Zuniga [address] [place] [address] PCP - General Internal Medicine 04/20/23 Business Liaison Manager Relationship Specialty Start Date End Date Ward ZunigaDO [address] [place] [address] PCP - General Internal Medicine 04/19/23 Business Liaison Manager Relationship Specialty Start Date End Date Ward Zuniga [address] [place] [address] PCP - General Internal Medicine 04/20/23 Business Liaison Manager Relationship Specialty Start Date End Date Ward ZunigaDO [address] [place] [address] PCP - General Internal Medicine 04/20/23 Source Comments (unrecognize d section and content) In the event this informatio n is protected by the Federal Confidentiality of Alcohol and Drug Abuse Patient Records regulations: The Federal rules restrict any use of the information to criminally investigate or prosecute any alcohol or drug abuse patient.[facility] the event this information is protected by the Federal Confidentiality of Alcohol and Drug Abuse Patient Records regulations: The Federal rules restrict any use of the information to criminally investigate or prosecute any alcohol or drug abuse patient.[facility] Inactive Administered Medications - up to 3 most recent administrations Administered Medications (un recognized section and content) Medication Order MAR Action Action Date Dose Rate Site NaCl 0.9% iv infusion 30 mL/hr, INTRAVENOUS, CONTINUOUS, Starting on Mon05/08/23 at 1230, Until Mon05/08/23 at 1245, Preprocedure Restarted 05/08/2023 12:35 PM EST New Bag/Syringe/Bottle 05/08/2023 12:01 PM EST 30 mL/hr 30 mL/hr FOR RECORDS PERTAINING TO PATIENTS WHO ARE [...] BE BASED ON THE PRIMARY CLINICAL RECORDS. [employer] [facility]. provides no warranty or guarantee of the accuracy or completeness of information in this document.
== END 2023-05-10 09:56 | disposition home or self-care (01) ==
LOC: VC 09:55
PROVIDERS: PCP Radiology Diagnostic Radiology; Visit Provider Radiology Diagnostic Radiology
DX: I83.813 Varicose veins of bilateral lower extremities with pain (principal)
CPT/HCPCS: 36466

== ENCOUNTER 2023-05-18 14:25 | Outpatient (OUT) | payer MEDICARE, SELFPAY ==
--- NOTE | 2023-05-18 14:32 | VEIN_ITS ---
Patient Name: GERRY YOUNGBLOOD MR#: [id number] : 1955 Exam Date: 05/18/2023 Ordering Doctor: DR VICKIE CORDON M.D. RADIOLOGY REPORT PROCEDURE: VC EXT VENOUS LT LIMITED COMPARISON: VC EXT VENOUS LT LIMITED, 05/01/2023. INDICATIONS: Phlebitis of superficial veins of lt lower extremity I80.02 TECHNIQUE: Lower extremity may scale and Duplex Doppler evaluation of the deep venous system from the inguinal ligament through the calf veins. FINDINGS: REGION: Left lower extremity. THROMBI: DVT present within mid-prox PTV 4.6cm from the Pop V. Varithena induced thrombus visualized at prox/med calf and mid/med calf. COMPRESSIBILITY: Non-compressible segments corresponding to thrombus FLOW: Areas of no flow corresponding to thrombus OTHER: Multiple varicose veins remain largest is at mid/med thigh and measures 3.7 mm with 1.5s reflux. CONCLUSION: 1. Successful post ablation occlusion of left leg treated branch saphenous varicosities. 2. Deep vein thrombus within the proximal and mid posterior tibial vein. Patient will be evaluated and placed on 1 course of Xarelto. Dictated by: David Mcgraw M.D. on 05/18/2023 at 15:52 Approved by: David Mcgraw M.D. on 05/18/2023 at 15:54
--- NOTE | 2023-05-18 14:32 | VEIN_ITS ---
Patient Name: GERRY YOUNGBLOOD MR#: [id number] : 1955 Exam Date: 05/18/2023 Ordering Doctor: DR VICKIE CORDON M.D. RADIOLOGY REPORT PROCEDURE: [facility] EST L[facility]D VEIN CENTER - OFFICE VISIT FOLLOW [facility] PROGRESS NOTES: The patient reports improvement in leg symptoms. There has been interval reduction in varicosities. The patient has followed our recommendations to walk 20-30 minutes once or twice per day since the procedure. Physical exam demonstrates decrease in varicosities of the leg. Persistent varicosities are identified along the legs bilaterally. Review of the ultrasound performed the same day demonstrates occlusive thrombus extending throughout the treated vein(s), see separate report, consistent with a successful ablation. No thrombus extending into or beyond the saphenofemoral junction. Note is made of thrombus within the proximal and mid posterior tibial vein of the lower left leg. The patient expressed a desire to proceed with treatment of remaining incompetent varicosities. The patient was informed that treatment was a process and would require several procedures/sessions. VEIN/[facility] LMTD IMPRESSION: 1. Successful ablation of the left leg treated branch saphenous vein(s). 2. Persistent bilateral lower extremity varicose veins and lower extremity symptoms. 3. Deep vein thrombus within the proximal and mid posterior tibial vein of the left leg. PLAN: 1. Patient will be placed on Xarelto 15 mg twice a day for 21 days with follow-up ultrasound in 2 weeks. 2. Microfoam chemical ablation of remaining incompetent branch saphenous varicosities will resume upon completion of course of Xarelto. Nurse notes, history and physical were reviewed and confirmed, see attached forms. The nurse was present throughout the physical exam and consultation Dictated by: David Mcgraw M.D. on 05/18/2023 at 15:55 Approved by: David Mcgraw M.D. on 05/18/2023 at 15:57
== END 2023-05-18 14:26 | disposition home or self-care (01) ==
LOC: VC 14:25
PROVIDERS: PCP Radiology Diagnostic Radiology; Visit Provider Radiology Diagnostic Radiology
DX: I80.02 Phlebitis and thrombophlebitis of superficial vessels of left lower extremity (principal)
CPT/HCPCS: 93971; G0463

== ENCOUNTER 2023-06-01 12:52 | Outpatient (OUT) | payer MEDICARE, SELFPAY ==
--- NOTE | 2023-06-01 12:52 | VEIN_ITS ---
Patient Name: GERRY YOUNGBLOOD MR#: [id number] : 1955 Exam Date: 06/01/2023 Ordering Doctor: DR VICKIE CORDON M.D. RADIOLOGY REPORT PROCEDURE: VC EXT VENOUS LT LIMITED COMPARISON: VC EXT VENOUS LT LIMITED, 05/18/2023. INDICATIONS: I80.02 Phlebitis of superficial veins of lt lower extremity TECHNIQUE: Lower extremity may scale and Duplex Doppler evaluation of the deep venous system from the inguinal ligament through the calf veins. FINDINGS: REGION: Left lower extremity. THROMBI: Positive for DVT. DVT is visualized at and has reduced to mid PTV. COMPRESSIBILITY: Non-compressible segments corresponding to thrombus FLOW: Areas of no flow corresponding to thrombus OTHER: CONCLUSION: 1. Small amount of residual thrombus within the mid/distal posterior tibial vein; significantly improved. Dictated by: David Mcgraw M.D. on 06/01/2023 at 14:49 Approved by: David Mcgraw M.D. on 06/01/2023 at 14:50
--- NOTE | 2023-06-01 12:52 | VEIN_ITS ---
Patient Name: GERRY YOUNGBLOOD MR#: [id number] : 1955 Exam Date: 06/01/2023 Ordering Doctor: DR VICKIE CORDON M.D. RADIOLOGY REPORT PROCEDURE: [facility] EST L[facility] VEIN C[facility] - OFFICE VISIT FOLLOW UP [facility] PROGRESS NOTES: The patient reports improvement in leg symptoms. There has been interval reduction in varicosities. The patient has followed our recommendations to walk 20-30 minutes once or twice per day since the procedure. Physical exam demonstrates decrease in varicosities of the leg. Persistent varicosities are identified along the legs bilaterally. Review of the ultrasound performed the same day demonstrates a short segment of thrombus within the left posterior tibial vein consistent with known deep vein thrombus. This has significantly decreased in size compared to prior study. The patient expressed a desire to proceed with treatment of remains superficial varicosities. The patient was informed that treatment was a process and would require several procedures/sessions. VEIN/[facility] EST TD IMPRESSION: 1. Residual deep vein thrombus within the left posterior tibial vein, but significantly improved. Patient has approximately 9 days left on current course of blood thinner. PLAN: 1. Finish out coarse of anticoagulant. 2. Schedule microfoam chemical ablation of left leg incompetent superficial varicosities. Nurse notes, history and physical were reviewed and confirmed, see attached forms. The nurse was present throughout the physical exam and consultation Dictated by: David Mcgraw M.D. on 06/01/2023 at 14:50 Approved by: David Mcgraw M.D. on 06/01/2023 at 14:53
== END 2023-06-01 12:53 | disposition home or self-care (01) ==
LOC: VC 12:52
PROVIDERS: PCP Radiology Diagnostic Radiology; Visit Provider Radiology Diagnostic Radiology
DX: I80.02 Phlebitis and thrombophlebitis of superficial vessels of left lower extremity (principal)
CPT/HCPCS: 93971; G0463

== ENCOUNTER 2023-06-08 13:06 | Outpatient (OUT) | payer MEDICARE, SELFPAY ==
--- NOTE | 2023-06-08 13:08 | VEIN_ITS ---
The [address] [address] Patient Name: GERRY YOUNGBLOOD MRN: [id number] date: 1955 Sex: F Assigned Patient Location: Current Patient Location: Accession/Order Number: [id number] Exam Date: 06/08/2023 13:15 Report Date: 06/08/2023 14:53 At the request of: VICKIE CORDON Procedure: VC INJ Foam Sclerosant WUS LOADER PROCEDURE: VC INJ Foam Sclerosant WUS LOADER HISTORY: I83.813 Bilateral painful varicose veins Pre-operative Diagnosis: CEAP class C6 venous insufficiency with pain, tenderness, edema and incompetent branch saphenous vein(s), chronic venous insufficiency right leg secondary to venous incompetence Post-operative Diagnosis: CEAP class C6 venous insufficiency with pain, tenderness, edema and incompetent branch saphenous vein(s), chronic venous insufficiency right leg secondary to venous incompetence Procedure Performed: 1. Ultrasound-guided microfoam chemical ablation with Varithenaregistered 2. Intraoperative ultrasound guidance Physician: Farnaz Mcgraw M.D. Anesthesia: None Indications for Procedure: 67 year old female. Symptoms including bilateral lower extremity pain, swelling, throbbing, dilated bulging veins, skin changes for many years despite conservative medical therapy including medical compression stockings, exercise and analgesics. Prior procedures include endovenous laser ablation and microfoam chemical ablation. Multiple incompetent varicosities of the right leg. Duplex scan showed reflux and enlarged diameters up to 9 mm. The patient underwent informed consent including management options where the complications of infection, bleeding, pain, and skin injury were discussed. Particular attention was spent discussing thrombus extension and deep vein thrombosis as well as the possibility of pulmonary embolus and treatment with oral or injectable blood thinners. Procedure: The patient walked to the procedure room. All applicable staff donned appropriate apparel. A procedure timeout was performed to confirm correct patient, correct extremity, correct procedure, and correct room set-up including presence of all applicable supplies, devices, and drugs. A duplex ultrasound, performed by myself confirmed the location and incompetence of branch saphenous varicosities and their course was marked on the skin together with the dilated tributaries. The extent of treatment of the vein and the associated varicosities was determined through ultrasound mapping. The skin was prepped and then punctured with a butterfly needle and advanced under ultrasound guidance. The Varithenaregistered canister was activated and the canister was primed and purged as required in the instructions for use. Varithenaregistered was drawn into a sterile syringe. Varithenaregistered was slowly administered at 0.5-1.0 cc/second with close observation by ultrasound of its course in the vessels. Total volume utilized was: 15 mL (7 mL into a 5 mm varicosity anterior mid lower leg; 8 mL into a 9 mm varicosity proximal medial lower leg). Following administration of Varithenaregistered the leg was elevated and the patient was asked to repeatedly dorsiflex the ankle to limit flow of Varithenaregistered into perforating veins. Once appropriate spasm had been confirmed in the treated veins, the vascular catheter was removed from the leg and light pressure was applied over the puncture site for hemostasis. The common femoral and deep superficial veins were then evaluated for flow and compressibility prior to dressing placement. The lower extremity was kept elevated at 45 degrees above the horizontal and cording material was applied over the saphenous segments and tributaries to allow for eccentric compression over the target vessels including the targeted saphenous vein(s). A multilayer dressing was applied consisting of foam pads, coban and thigh-high 20-30 mm Hg compression elastic support hose were placed on the patient. The leg was lowered only after compression had been applied and the patient was immediately ambulatory. The patient ambulated 10 minutes under supervision and was without apparent concerns at time of release. Post-care instructions include advising patient to keep post-treatment bandages in place and dry for 48 hours, avoid extended periods of inactivity, avoid heavy exercise for one week, wear compression stockings on the treated leg continuously for two weeks, to walk daily for 10 minutes over the next month. The patient was instructed to take an anti-inflammatory medicine as needed and to follow up for color duplex scan of the Saphenous veins, the treated branch saphenous varicosities, the adjacent deep veins, and additional treatment within 7 days. PERSONNEL: Jess Da Silva RN Electronically authenticated by: FARNAZ MCGRAW Date: 06/08/2023 14:53
== END 2023-06-08 13:07 | disposition home or self-care (01) ==
LOC: VC 13:06
PROVIDERS: PCP Radiology Diagnostic Radiology; Visit Provider Radiology Diagnostic Radiology
DX: I83.813 Varicose veins of bilateral lower extremities with pain (principal)
CPT/HCPCS: 36466

== ENCOUNTER 2023-06-13 12:35 | Outpatient (OUT) | payer MEDICARE, SELFPAY ==
--- NOTE | 2023-06-13 12:39 | VEIN_ITS ---
Patient Name: GERRY YOUNGBLOOD MR#: [id number] : 1955 Exam Date: 06/13/2023 Ordering Doctor: DR SOLOMON JACKSON M.D. RADIOLOGY REPORT PROCEDURE: VC EXT VENOUS RT LMTD COMPARISON: VC EXT VENOUS RT LMTD, 04/17/2023. VC EXT VENOUS RT LMTD, 03/06/2023. INDICATIONS: Phlebitis of superficial veins of rt lower extremity I80.01 TECHNIQUE: Lower extremity may scale and Duplex Doppler evaluation of the deep venous system from the inguinal ligament through the calf veins. FINDINGS: REGION: Right lower extremity. THROMBI: Negative for DVT. Varithena induced thrombus visualized at mid/med calf and prox/med calf. COMPRESSIBILITY: Non-compressible segments corresponding to thrombus FLOW: Areas of no flow corresponding to thrombus OTHER: Multiple varicose veins remain. The largest remaining is at mid/med calf 5.1mm with 0.9s reflux. CONCLUSION: Post ablation occlusion of treated right leg incompetent varicose veins. Residual patent varicose veins measuring up to 5.1 mm Dictated by: Solomon Jackson MD on 06/13/2023 at 13:01 Approved by: Solomon Jackson MD on 06/13/2023 at 13:02
--- NOTE | 2023-06-13 12:39 | VEIN_ITS ---
Patient Name: GERRY YOUNGBLOOD MR#: [id number] : 1955 Exam Date: 06/13/2023 Ordering Doctor: DR SOLOMON JACKSON M.D. RADIOLOGY REPORT PROCEDURE: [facility] EST L[facility]D VEIN CENTER - OFFICE VISIT FOLLOW UP COMPARISON: [facility] EST LMTD, 06/01/2023. [facility] EST LMTD, 05/18/2023. PROGRESS NOTES: The patient reports mild flow discomfort following micro foam chemical ablation of the right leg. Patient has developed an area warmth and erythema along the anterior mid lower leg. The patient continues to wear her compression stockings. The patient has not taken any oral analgesics. Physical exam demonstrates a 12 x 5 cm area of edema erythema with skin thickening in the anterior mid lower leg with a 3 x 2 cm area of purplish discoloration. This likely represents a developing skin ulceration from the micro foam chemical ablation with surrounding thrombophlebitis. This was discussed at length with the patient. The patient was asked to put antibiotic ointment on this area twice per day and cover with a dressing once the skin breaks open. She was asked to return to our office for any significant changes. Review of the ultrasound performed the same day demonstrates occlusive thrombus extending throughout the treated right leg varicose veins. No deep vein thrombus. The patient expressed a desire to proceed with treatment of incompetent left leg varicose veins. VEIN/[facility] EST LMTD IMPRESSION: 1. Successful ablation of incompetent right leg varicose veins 2. Persistent incompetent left leg varicose veins 3. Developing skin ulceration on the right lower leg. PLAN: Micro foam chemical ablation incompetent left leg varicose veins Nurse notes, history and physical were reviewed and confirmed, see attached forms. The nurse was present throughout the physical exam and consultation Dictated by: Solomon Jackson MD on 06/13/2023 at 13:10 Approved by: Solomon Jackson MD on 06/13/2023 at 13:12
== END 2023-06-13 12:36 | disposition home or self-care (01) ==
LOC: VC 12:35
PROVIDERS: PCP Radiology Diagnostic Radiology; Visit Provider Radiology Diagnostic Radiology
DX: I80.01 Phlebitis and thrombophlebitis of superficial vessels of right lower extremity (principal)
CPT/HCPCS: 93971; G0463

== ENCOUNTER 2023-06-22 12:53 | Outpatient (OUT) | payer MEDICARE, SELFPAY ==
--- NOTE | 2023-06-22 12:54 | VEIN_ITS ---
The [address] [address] Patient Name: GERRY YOUNGBLOOD MRN: [id number] date: 1955 Sex: F Assigned Patient Location: Current Patient Location: Accession/Order Number: [id number] Exam Date: 06/22/2023 12:54 Report Date: 06/22/2023 14:01 At the request of: VICKIE CORDON Procedure: VC INJ Foam Sclerosant WUS SALES OPERATIONS ANALYST PROCEDURE: VC INJ Foam Sclerosant WUS SALES OPERATIONS ANALYST, left leg COMPARISON: None. HISTORY: Pain due to varicose veins of bilateral legs I83.813 Pre-operative Diagnosis: CEAP class C6 venous insufficiency with pain, tenderness, edema and incompetent left great saphenous and varicose vein(s), chronic venous insufficiency left leg secondary to venous incompetence Post-operative Diagnosis: CEAP class C6 venous insufficiency with pain, tenderness, edema and incompetent left great saphenous and varicose vein(s), chronic venous insufficiency left leg secondary to venous incompetence Procedure Performed: 1. Ultrasound-guided microfoam chemical ablation with Varithenaregistered 2. Intraoperative ultrasound guidance Anesthesia: None Indications for Procedure: 67-year-old female who presents with a long history of lower extremity pain and swelling varicose veins culminating in venous stasis ulcerations and subcutaneous swelling. The patient failed conservative medical therapy including medical compression stockings, exercise and analgesics. Prior procedures include endovenous laser ablation and Microfoam chemical ablation. Multiple incompetent varicosities of the left leg. Duplex scan showed reflux and enlarged diameters up to 6 mm. The patient underwent informed consent including management options where the complications of infection, bleeding, pain, and skin injury were discussed. Particular attention was spent discussing thrombus extension and deep vein thrombosis as well as the possibility of pulmonary embolus and treatment with oral or injectable blood thinners. Procedure: The patient walked to the procedure room. All applicable staff donned appropriate apparel. A procedure timeout was performed to confirm correct patient, correct extremity, correct procedure, and correct room set-up including presence of all applicable supplies, devices, and drugs. A duplex ultrasound, performed by myself confirmed the location and incompetence of branch saphenous varicosities and their course was marked on the skin together with the dilated tributaries. The extent of treatment of the vein and the associated varicosities was determined through ultrasound mapping. The skin was prepped and then punctured with a butterfly needle and advanced under ultrasound guidance. The Varithenaregistered canister was activated and the canister was primed and purged as required in the instructions for use. Varithenaregistered was drawn into a sterile syringe. The following injections were made: 7 cc injected into a 5 mm varicose vein left distal medial lower leg 5 cc injected into a 4 mm varicose veins left proximal medial lower leg 4 cc injected into a 6 mm varicose vein left mid medial thigh Varithenaregistered was slowly administered at 0.5-1.0 cc/second with close observation by ultrasound of its course in the vessels. Total volume utilized was: 15cc. Following administration of Varithenaregistered the leg was elevated and the patient was asked to repeatedly dorsiflex the ankle to limit flow of Varithenaregistered into perforating veins. Once appropriate spasm had been confirmed in the treated veins, the vascular catheter was removed from the leg and light pressure was applied over the puncture site for hemostasis. The common femoral and deep superficial veins were then evaluated for flow and compressibility prior to dressing placement. The lower extremity was kept elevated at 45 degrees above the horizontal and cording material was applied over the saphenous segments and tributaries to allow for eccentric compression over the target vessels including the targeted saphenous vein(s). A multilayer dressing was applied consisting of foam pads, coban and thigh-high 20-30 mm Hg compression elastic support hose were placed on the patient. The leg was lowered only after compression had been applied and the patient was immediately ambulatory. The patient ambulated 10 minutes under supervision and was without apparent concerns at time of release. Post-care instructions include advising patient to keep post-treatment bandages in place and dry for 48 hours, avoid extended periods of inactivity, avoid heavy exercise for one week, wear compression stockings on the treated leg continuously for two weeks, to walk daily for 10 minutes over the next month. The patient was instructed to take an anti-inflammatory medicine as needed and to follow up for color duplex scan of the Saphenous veins, the treated branch saphenous varicosities, the adjacent deep veins, and additional treatment within 7 days. PERSONNEL: Domingo Joe RN Electronically authenticated by: VICKIE CORDON Date: 06/22/2023 14:01
== END 2023-06-22 12:54 | disposition home or self-care (01) ==
LOC: VC 12:53
PROVIDERS: PCP Radiology Diagnostic Radiology; Visit Provider Radiology Diagnostic Radiology
DX: I83.813 Varicose veins of bilateral lower extremities with pain (principal)
CPT/HCPCS: 36466

== ENCOUNTER 2023-06-30 10:32 | Outpatient (OUT) | payer MEDICARE, SELFPAY ==
--- NOTE | 2023-06-30 10:33 | VEIN_ITS ---
Patient Name: GERRY YOUNGBLOOD MR#: [id number] : 1955 Exam Date: 06/30/2023 Ordering Doctor: DR VICKIE CORDON M.D. RADIOLOGY REPORT PROCEDURE: [facility] EST L[facility] VEIN CENTER - OFFICE VISIT FOLLOW UP [facility] PROGRESS NOTES: The patient reports improvement in leg symptoms. There has been interval reduction in varicosities. The patient has followed our recommendations to walk 20-30 minutes once or twice per day since the procedure. Physical exam demonstrates decrease in varicosities of the leg. Persistent superficial varicosities within left leg and numerous spider veins are identified along the legs bilaterally. Development of mild erythema surrounding a right anterior kiser wound. Review of the ultrasound performed the same day demonstrates occlusive thrombus extending throughout the treated vein(s), see separate report, consistent with a successful ablation. No thrombus extending into or beyond the saphenofemoral junction. The patient expressed a desire to proceed with treatment of remaining incompetent varicosities. The patient was informed that treatment was a process and would require 1-2 procedures/sessions. VEIN/[facility] LMTD IMPRESSION: 1. Successful ablation of the treated left leg branch saphenous vein(s). 2. Persistent right lower extremity varicose veins and lower extremity symptoms. 3. Development of mild erythema surrounding right anterior kiser wound. PLAN: 1. Keflex 500 mg twice a day for 10 days. 2. Microfoam chemical ablation of remaining right lower extremity branch saphenous varicosities. Nurse notes, history and physical were reviewed and confirmed, see attached forms. The nurse was present throughout the physical exam and consultation Dictated by: David Mcgraw M.D. on 06/30/2023 at 11:08 Approved by: David Mcgraw M.D. on 06/30/2023 at 11:14
--- NOTE | 2023-06-30 10:33 | VEIN_ITS ---
Patient Name: GERRY YOUNGBLOOD MR#: [id number] : 1955 Exam Date: 06/30/2023 Ordering Doctor: DR VICKIE CORDON M.D. RADIOLOGY REPORT PROCEDURE: VC EXT VENOUS LT LIMITED COMPARISON: VC EXT VENOUS LT LIMITED, 06/01/2023. INDICATIONS: Phlebitis of superficial veins of lt lower extremity I80.02 TECHNIQUE: Lower extremity may scale and Duplex Doppler evaluation of the deep venous system from the inguinal ligament through the calf veins. FINDINGS: REGION: Left lower extremity. THROMBI: Negative for DVT. Varithena induced thrombus visualized at dist/med calf, dist/med thigh, and mid/med thigh. COMPRESSIBILITY: Non-compressible segments corresponding to thrombus FLOW: Areas of no flow corresponding to thrombus OTHER: No patent varicose veins remain. CONCLUSION: 1. Successful post ablation occlusion of left leg treated branch saphenous varicosities. 2. Stable, persistent small segment of deep vein thrombus within mid left posterior tibial vein. Dictated by: David Mcgraw M.D. on 06/30/2023 at 11:07 Approved by: David Mcgraw M.D. on 06/30/2023 at 11:08
== END 2023-06-30 10:33 | disposition home or self-care (01) ==
LOC: VC 10:32
PROVIDERS: PCP Radiology Diagnostic Radiology; Visit Provider Radiology Diagnostic Radiology
DX: I80.02 Phlebitis and thrombophlebitis of superficial vessels of left lower extremity (principal)
CPT/HCPCS: 93971; G0463

== ENCOUNTER 2023-07-11 10:58 | Outpatient (OUT) | payer MEDICARE, SELFPAY ==
--- NOTE | 2023-07-11 10:58 | VEIN_ITS ---
The [address] [address] Patient Name: GERRY YOUNGBLOOD MRN: [id number] date: 1955 Sex: F Assigned Patient Location: Current Patient Location: Accession/Order Number: [id number] Exam Date: 07/11/2023 11:00 Report Date: 07/11/2023 11:41 At the request of: VICKIE CORDON Procedure: VC INJ Foam Sclerosant WUS LEATHER FINISHER PROCEDURE: VC INJ Foam Sclerosant WUS LEATHER FINISHER, right leg COMPARISON: None. HISTORY: I83.813 Pain due to varicose veins of bilateral legs Pre-operative Diagnosis: CEAP class C6 venous insufficiency with pain, tenderness, edema and incompetent right saphenous and varicose vein(s), chronic venous insufficiency right leg secondary to venous incompetence Post-operative Diagnosis: CEAP class C6 venous insufficiency with pain, tenderness, edema and incompetent right saphenous and varicose vein(s), chronic venous insufficiency right leg secondary to venous incompetence Procedure Performed: 1. Ultrasound-guided microfoam chemical ablation with Varithenaregistered 2. Intraoperative ultrasound guidance Anesthesia: None Indications for Procedure: 67-year-old female who presents with a long history of lower extremity pain and swelling varicose veins culminating in venous stasis ulcerations which were not healing. The patient failed conservative medical therapy including medical compression stockings, exercise and analgesics. Prior procedures include endovenous laser ablation and Microfoam chemical ablation. Multiple incompetent varicosities of the right leg. Duplex scan showed reflux and enlarged diameters up to 6 mm. The patient underwent informed consent including management options where the complications of infection, bleeding, pain, and skin injury were discussed. Particular attention was spent discussing thrombus extension and deep vein thrombosis as well as the possibility of pulmonary embolus and treatment with oral or injectable blood thinners. Procedure: The patient walked to the procedure room. All applicable staff donned appropriate apparel. A procedure timeout was performed to confirm correct patient, correct extremity, correct procedure, and correct room set-up including presence of all applicable supplies, devices, and drugs. A duplex ultrasound, performed by myself confirmed the location and incompetence of branch saphenous varicosities and their course was marked on the skin together with the dilated tributaries. The extent of treatment of the vein and the associated varicosities was determined through ultrasound mapping. The skin was prepped and then punctured with a butterfly needle and advanced under ultrasound guidance. The following injections were made: 8 cc injected into a 5 mm system and varicose veins right distal medial lower leg 7 cc injected into a 6 mm varicose vein right distal medial thigh The Varithenaregistered canister was activated and the canister was primed and purged as required in the instructions for use. Varithenaregistered was drawn into a sterile syringe. Varithenaregistered was slowly administered at 0.5-1.0 cc/second with close observation by ultrasound of its course in the vessels. Total volume utilized was: 15cc. Following administration of Varithenaregistered the leg was elevated and the patient was asked to repeatedly dorsiflex the ankle to limit flow of Varithenaregistered into perforating veins. Once appropriate spasm had been confirmed in the treated veins, the vascular catheter was removed from the leg and light pressure was applied over the puncture site for hemostasis. The common femoral and deep superficial veins were then evaluated for flow and compressibility prior to dressing placement. The lower extremity was kept elevated at 45 degrees above the horizontal and cording material was applied over the saphenous segments and tributaries to allow for eccentric compression over the target vessels including the targeted saphenous vein(s). A multilayer dressing was applied consisting of foam pads, coban and thigh-high 20-30 mm Hg compression elastic support hose were placed on the patient. The leg was lowered only after compression had been applied and the patient was immediately ambulatory. The patient ambulated 10 minutes under supervision and was without apparent concerns at time of release. Post-care instructions include advising patient to keep post-treatment bandages in place and dry for 48 hours, avoid extended periods of inactivity, avoid heavy exercise for one week, wear compression stockings on the treated leg continuously for two weeks, to walk daily for 10 minutes over the next month. The patient was instructed to take an anti-inflammatory medicine as needed and to follow up for color duplex scan of the Saphenous veins, the treated branch saphenous varicosities, the adjacent deep veins, and additional treatment within 7 days. PERSONNEL: Domingo Joe RN Electronically authenticated by: VICKIE CORDON Date: 07/11/2023 11:41
== END 2023-07-11 10:59 | disposition home or self-care (01) ==
LOC: VC 10:58
PROVIDERS: PCP Radiology Diagnostic Radiology; Visit Provider Radiology Diagnostic Radiology
DX: I83.813 Varicose veins of bilateral lower extremities with pain (principal)
CPT/HCPCS: 36466

== ENCOUNTER 2023-07-18 10:53 | Outpatient (OUT) | payer MEDICARE, SELFPAY ==
--- NOTE | 2023-07-18 10:54 | VEIN_ITS ---
Patient Name: GERRY YOUNGBLOOD MR#: [id number] : 1955 Exam Date: 07/18/2023 Ordering Doctor: DR SOLOMON JACKSON M.D. RADIOLOGY REPORT PROCEDURE: [facility] EST [facility] - OFFICE VISIT FOLLOW UP COMPARISON: [facility] EST LMTD, 06/30/2023. [facility] EST LMTD, 06/13/2023. PROGRESS NOTES: The patient reports no significant problems following micro foam chemical ablation of right leg incompetent varicose veins for the patient has worn her compression stocking. The patient did not require oral analgesics. The patient has tried exercise Physical exam demonstrates multiple thrombosed varicose veins. Again demonstrated is a ulceration on the distal anterior right lower leg related to previous injections with a complete eschar. The skin surrounding this area has healed. Thrombosed varicose veins can be palpated. Additional varicose veins are seen. Review of the ultrasound performed the same day demonstrates occlusive thrombus extending throughout the treated varicose veins. No deep vein thrombus is observed. The patient expressed a desire to proceed with treatment of residual incompetent patent right leg varicose veins. VEIN/[facility] EST LMTD IMPRESSION: 1. Successful ablation of treated right leg varicose veins 2. Persistent incompetent right leg varicose veins. PLAN: Micro foam chemical ablation right leg incompetent varicose veins Nurse notes, history and physical were reviewed and confirmed, see attached forms. The nurse was present throughout the physical exam and consultation Dictated by: Soolmon Jackson MD on 07/18/2023 at 13:11 Approved by: Solomon Jackson MD on 07/18/2023 at 13:18
--- NOTE | 2023-07-18 10:55 | VEIN_ITS ---
Patient Name: GERRY YOUNGBLOOD MR#: [id number] : 1955 Exam Date: 07/18/2023 Ordering Doctor: DR SOLOMON JACKSON M.D. RADIOLOGY REPORT PROCEDURE: VC EXT VENOUS RT LMTD COMPARISON: VC EXT VENOUS RT LMTD, 06/13/2023. VC EXT VENOUS RT LMTD, 04/17/2023. INDICATIONS: Phlebitis of superficial vein of rt lower extremity I80.01 TECHNIQUE: Lower extremity may scale and Duplex Doppler evaluation of the deep venous system from the inguinal ligament through the calf veins. FINDINGS: REGION: Right lower extremity. THROMBI: Negative for DVT. Varithena induced thrombus visualized at prox/med calf dist/med calf COMPRESSIBILITY: Non-compressible segments corresponding to thrombus FLOW: Areas of no flow corresponding to thrombus OTHER: Multiple varicose veins remain. The largest is at mid/med thigh and measures 6.1mm with 1.0s reflux. CONCLUSION: Post ablation occlusion of treated varicose veins. Residual incompetent varicose veins measuring up to 6.1 mm Dictated by: Solomon Jackson MD on 07/18/2023 at 11:21 Approved by: Solomon Jackson MD on 07/18/2023 at 11:27
== END 2023-07-18 10:54 | disposition home or self-care (01) ==
LOC: VC 10:53
PROVIDERS: PCP Radiology Diagnostic Radiology; Visit Provider Radiology Diagnostic Radiology
DX: I80.01 Phlebitis and thrombophlebitis of superficial vessels of right lower extremity (principal)
CPT/HCPCS: 93971; G0463

== ENCOUNTER 2023-08-03 10:40 | Outpatient (OUT) | payer MEDICARE, SELFPAY ==
--- NOTE | 2023-08-03 10:43 | VEIN_ITS ---
[address] [address] Patient Name: GERRY YOUNGBLOOD MRN: [id number] date: 1955 Sex: F Assigned Patient Location: Current Patient Location: Accession/Order Number: [id number] Exam Date: 08/03/2023 10:43 Report Date: 08/03/2023 14:05 At the request of: VICKIE CORDON Procedure: VC INJ Foam Sclerosant WUS CUSTOMER CARE MANAGER PROCEDURE: VC INJ Foam Sclerosant WUS CUSTOMER CARE MANAGER HISTORY: Pain due to varicose veins of bilateral legs I83.813 Pre-operative Diagnosis: CEAP class C6 venous insufficiency with pain, tenderness, edema and incompetent branch saphenous vein(s), chronic venous insufficiency right leg secondary to venous incompetence Post-operative Diagnosis: CEAP class C6 venous insufficiency with pain, tenderness, edema and incompetent branch saphenous vein(s), chronic venous insufficiency right leg secondary to venous incompetence Procedure Performed: 1. Ultrasound-guided microfoam chemical ablation with Varithenaregistered 2. Intraoperative ultrasound guidance Physician: Farnaz Mcgraw M.D. Anesthesia: None Indications for Procedure: 67 year old female. Symptoms including lower extremity pain, swelling, dilated bulging veins, heaviness for many years despite conservative medical therapy including medical compression stockings, exercise and analgesics. Prior procedures include endovenous laser ablation and microfoam chemical ablation. Multiple incompetent varicosities of the right leg. Duplex scan showed reflux and enlarged diameters up to 6 mm. The patient underwent informed consent including management options where the complications of infection, bleeding, pain, and skin injury were discussed. Particular attention was spent discussing thrombus extension and deep vein thrombosis as well as the possibility of pulmonary embolus and treatment with oral or injectable blood thinners. Procedure: The patient walked to the procedure room. All applicable staff donned appropriate apparel. A procedure timeout was performed to confirm correct patient, correct extremity, correct procedure, and correct room set-up including presence of all applicable supplies, devices, and drugs. A duplex ultrasound, performed by myself confirmed the location and incompetence of branch saphenous varicosities and their course was marked on the skin together with the dilated tributaries. The extent of treatment of the vein and the associated varicosities was determined through ultrasound mapping. The skin was prepped and then punctured with a butterfly needle and advanced under ultrasound guidance. The Varithenaregistered canister was activated and the canister was primed and purged as required in the instructions for use. Varithenaregistered was drawn into a sterile syringe. Varithenaregistered was slowly administered at 0.5-1.0 cc/second with close observation by ultrasound of its course in the vessels. Total volume utilized was: 15 mL (8 mL into a 5 mm varicosity mid medial posterior lower right leg; 7 mL into a 6 mm varicosity posterior distal upper leg). Following administration of Varithenaregistered the leg was elevated and the patient was asked to repeatedly dorsiflex the ankle to limit flow of Varithenaregistered into perforating veins. Once appropriate spasm had been confirmed in the treated veins, the vascular catheter was removed from the leg and light pressure was applied over the puncture site for hemostasis. The common femoral and deep superficial veins were then evaluated for flow and compressibility prior to dressing placement. The lower extremity was kept elevated at 45 degrees above the horizontal and cording material was applied over the saphenous segments and tributaries to allow for eccentric compression over the target vessels including the targeted saphenous vein(s). A multilayer dressing was applied consisting of foam pads, coban and thigh-high 20-30 mm Hg compression elastic support hose were placed on the patient. The leg was lowered only after compression had been applied and the patient was immediately ambulatory. The patient ambulated 10 minutes under supervision and was without apparent concerns at time of release. Post-care instructions include advising patient to keep post-treatment bandages in place and dry for 48 hours, avoid extended periods of inactivity, avoid heavy exercise for one week, wear compression stockings on the treated leg continuously for two weeks, to walk daily for 10 minutes over the next month. The patient was instructed to take an anti-inflammatory medicine as needed and to follow up for color duplex scan of the Saphenous veins, the treated branch saphenous varicosities, the adjacent deep veins, and additional treatment within 7 days. PERSONNEL: Domingo Joe RN Electronically authenticated by: FARNAZ MCGRAW Date: 08/03/2023 14:05
== END 2023-08-03 10:41 | disposition home or self-care (01) ==
LOC: VC 10:40
PROVIDERS: PCP Radiology Diagnostic Radiology; Visit Provider Radiology Diagnostic Radiology
DX: I83.813 Varicose veins of bilateral lower extremities with pain (principal)
CPT/HCPCS: 36466

== ENCOUNTER 2023-08-11 12:29 | Outpatient (OUT) | payer MEDICARE, SELFPAY ==
--- NOTE | 2023-08-11 12:33 | VEIN_ITS ---
Patient Name: GERRY YOUNGBLOOD MR#: [id number] : 1955 Exam Date: 08/11/2023 Ordering Doctor: DR SOLOMON JACKSON M.D. RADIOLOGY REPORT PROCEDURE: VC EXT VENOUS RT LMTD COMPARISON: VC EXT VENOUS RT LMTD, 07/18/2023. VC EXT VENOUS RT LMTD, 06/13/2023. INDICATIONS: Phlebitis of superficial veins of rt lower extremity I80.01 TECHNIQUE: Lower extremity may scale and Duplex Doppler evaluation of the deep venous system from the inguinal ligament through the calf veins. FINDINGS: REGION: Right lower extremity. THROMBI: Negative for DVT. Varithena induced thrombus visualized at mid/med calf and dist/post thigh. COMPRESSIBILITY: Non-compressible segments corresponding to thrombus FLOW: Areas of no flow corresponding to thrombus OTHER: Large varicose vein with branches remains at medial knee measuring 8.9mm with 1.1s reflux. CONCLUSION: Post ablation occlusion of multiple treated right leg incompetent varicose veins. Bilateral residual patent incompetent varicose veins Dictated by: Solomon Jackson MD on 08/11/2023 at 12:56 Approved by: Solomon Jackson MD on 08/11/2023 at 12:57
--- NOTE | 2023-08-11 12:33 | VEIN_ITS ---
Patient Name: GERRY YOUNGBLOOD MR#: [id number] : 1955 Exam Date: 08/11/2023 Ordering Doctor: DR SOLOMON JACKSON M.D. RADIOLOGY REPORT PROCEDURE: [facility] EST LMTD VEIN CENTER - OFFICE VISIT FOLLOW UP COMPARISON: [facility] EST LMTD, 07/18/2023. [facility] EST LMTD, 06/30/2023. PROGRESS NOTES: The patient reports no significant problems following micro foam chemical ablation of right leg incompetent varicose veins. The patient did not require oral analgesics. The patient did wear her compression stocking. The patient did exercise. Physical exam demonstrates a persistent healing skin ulcer from prior treatment along the anterior right mid lower leg. Multiple thrombosed varicose veins. Residual varicose veins are noted most significant along the lateral thigh and the. No erythema or warmth to suggest cellulitis or thrombophlebitis. Review of the ultrasound performed the same day demonstrates occlusive thrombus extending throughout the treated right leg veins. Residual incompetent varicose veins are identified measuring up to 8.6 mm. No deep vein thrombus. The patient expressed a desire to proceed with treatment of incompetent varicose veins with micro foam chemical ablation. VEIN/[facility] EST LMTD IMPRESSION: 1. Successful ablation of treated right leg varicose veins 2. Persistent incompetent bilateral varicose veins. PLAN: Micro foam chemical ablation incompetent varicose veins Nurse notes, history and physical were reviewed and confirmed, see attached forms. The nurse was present throughout the physical exam and consultation Dictated by: Solomon Jackson MD on 08/11/2023 at 13:15 Approved by: Solomon Jackson MD on 08/11/2023 at 13:16
== END 2023-08-11 12:30 | disposition home or self-care (01) ==
LOC: VC 12:29
PROVIDERS: PCP Radiology Diagnostic Radiology; Visit Provider Radiology Diagnostic Radiology
DX: I80.01 Phlebitis and thrombophlebitis of superficial vessels of right lower extremity (principal)
CPT/HCPCS: 93971; G0463

== ENCOUNTER 2023-08-18 12:32 | Outpatient (OUT) | payer MEDICARE, SELFPAY ==
--- NOTE | 2023-08-18 12:35 | VEIN_ITS ---
[address] [address] Patient Name: GERRY YOUNGBLOOD MRN: [id number] date: 1955 Sex: F Assigned Patient Location: Current Patient Location: Accession/Order Number: [id number] Exam Date: 08/18/2023 12:45 Report Date: 08/18/2023 15:03 At the request of: VICKIE CORDON Procedure: VC INJ Foam Sclerosant WUS RUG CLEANER PROCEDURE: VC INJ Foam Sclerosant WUS RUG CLEANER HISTORY: Pain due to varicose veins of bilateral legs I83.813 Pre-operative Diagnosis: CEAP class C6 venous insufficiency with pain, tenderness, edema and incompetent branch saphenous vein(s), chronic venous insufficiency right leg secondary to venous incompetence Post-operative Diagnosis: CEAP class C6 venous insufficiency with pain, tenderness, edema and incompetent branch saphenous vein(s), chronic venous insufficiency right leg secondary to venous incompetence Procedure Performed: 1. Ultrasound-guided microfoam chemical ablation with Varithenaregistered 2. Intraoperative ultrasound guidance Physician: Farnaz Mcgraw M.D. Anesthesia: None Indications for Procedure: 67 year old female. Symptoms including lower extremity swelling, dilated bulging veins, heaviness for many years despite conservative medical therapy including medical compression stockings, exercise and analgesics. Prior procedures include endovenous laser ablation and microfoam chemical ablation. Multiple incompetent varicosities of the right leg. Duplex scan showed reflux and enlarged diameters up to 4 mm. The patient underwent informed consent including management options where the complications of infection, bleeding, pain, and skin injury were discussed. Particular attention was spent discussing thrombus extension and deep vein thrombosis as well as the possibility of pulmonary embolus and treatment with oral or injectable blood thinners. Procedure: The patient walked to the procedure room. All applicable staff donned appropriate apparel. A procedure timeout was performed to confirm correct patient, correct extremity, correct procedure, and correct room set-up including presence of all applicable supplies, devices, and drugs. A duplex ultrasound, performed by myself confirmed the location and incompetence of branch saphenous varicosities and their course was marked on the skin together with the dilated tributaries. The extent of treatment of the vein and the associated varicosities was determined through ultrasound mapping. The skin was prepped and then punctured with a butterfly needle and advanced under ultrasound guidance. The Varithenaregistered canister was activated and the canister was primed and purged as required in the instructions for use. Varithenaregistered was drawn into a sterile syringe. Varithenaregistered was slowly administered at 0.5-1.0 cc/second with close observation by ultrasound of its course in the vessels. Total volume utilized was: 15 mL (7 mL into a 4 mm varicosity distal medial lower right leg; 6 mL into a 4 mm varicosity proximal anterior lower leg). Following administration of Varithenaregistered the leg was elevated and the patient was asked to repeatedly dorsiflex the ankle to limit flow of Varithenaregistered into perforating veins. Once appropriate spasm had been confirmed in the treated veins, the vascular catheter was removed from the leg and light pressure was applied over the puncture site for hemostasis. The common femoral and deep superficial veins were then evaluated for flow and compressibility prior to dressing placement. The lower extremity was kept elevated at 45 degrees above the horizontal and cording material was applied over the saphenous segments and tributaries to allow for eccentric compression over the target vessels including the targeted saphenous vein(s). A multilayer dressing was applied consisting of foam pads, coban and thigh-high 20-30 mm Hg compression elastic support hose were placed on the patient. The leg was lowered only after compression had been applied and the patient was immediately ambulatory. The patient ambulated 10 minutes under supervision and was without apparent concerns at time of release. Post-care instructions include advising patient to keep post-treatment bandages in place and dry for 48 hours, avoid extended periods of inactivity, avoid heavy exercise for one week, wear compression stockings on the treated leg continuously for two weeks, to walk daily for 10 minutes over the next month. The patient was instructed to take an anti-inflammatory medicine as needed and to follow up for color duplex scan of the Saphenous veins, the treated branch saphenous varicosities, the adjacent deep veins, and additional treatment within 7 days. PERSONNEL: Jess Da Silva RN Electronically authenticated by: AFRNAZ MCGRAW Date: 08/18/2023 15:03
== END 2023-08-18 12:33 | disposition home or self-care (01) ==
LOC: VC 12:32
PROVIDERS: PCP Radiology Diagnostic Radiology; Visit Provider Radiology Diagnostic Radiology
DX: I83.813 Varicose veins of bilateral lower extremities with pain (principal)
CPT/HCPCS: 36466

== ENCOUNTER 2023-08-22 09:55 | Outpatient (OUT) | payer MEDICARE, SELFPAY ==
--- NOTE | 2023-08-22 10:10 | VEIN_ITS ---
Patient Name: GERRY YOUNGBLOOD MR#: [id number] : 1955 Exam Date: 08/22/2023 Ordering Doctor: DR VICKIE CORDON M.D. RADIOLOGY REPORT PROCEDURE: VC EXT VENOUS RT LMTD COMPARISON: VC EXT VENOUS RT LMTD, 08/11/2023. INDICATIONS: I80.01 Phlebitis of superficial veins of rt lower extremity TECHNIQUE: Lower extremity may scale and Duplex Doppler evaluation of the deep venous system from the inguinal ligament through the calf veins. FINDINGS: REGION: Right lower extremity. THROMBI: Negative for DVT. Varithena induced thrombus visualized at dist/med calf and prox/med calf. COMPRESSIBILITY: Normal compressibility.Non-compressible segments corresponding to thrombus FLOW: Areas of no flow corresponding to thrombus OTHER: No varicose veins remain. CONCLUSION: 1. Successful post ablation occlusion of right leg treated branch saphenous varicosities Dictated by: David Mcgraw M.D. on 08/22/2023 at 10:58 Approved by: David Mcgraw M.D. on 08/22/2023 at 10:59
--- NOTE | 2023-08-22 10:10 | VEIN_ITS ---
Patient Name: GERRY YOUNGBLOOD MR#: [id number] : 1955 Exam Date: 08/22/2023 Ordering Doctor: DR VICKIE CORDON M.D. RADIOLOGY REPORT PROCEDURE: [facility] L[facility]D [facility] C[facility] - OFFICE VISIT FOLLOW UP COMPARISON: [facility], 08/11/2023. PROGRESS NOTES: The patient reports improvement in leg symptoms. There has been interval reduction in varicosities. The patient has followed our recommendations to walk 20-30 minutes once or twice per day since the procedure. Physical exam demonstrates decrease in varicosities of the leg. Persistent reticular and spider veins are identified along the legs bilaterally. Previously seen skin surface wound lower anterior left leg with increased surrounding erythema. Review of the ultrasound performed the same day demonstrates occlusive thrombus extending throughout the treated vein(s), see separate report, consistent with a successful ablation. No thrombus extending into or beyond the saphenofemoral junction. The patient expressed a desire to proceed with treatment of reticular veins and spider veins. The patient was informed that treatment was a process and would require several procedures/sessions. [facility]: 1. Successful ablation of the right leg treated branch saphenous vein(s). 2. Persistent reticular and spider veins and left lower extremity skin wound. PLAN: 1. Bilateral lower extremity sclerotherapy. 2. As a precautionary measure patient be placed on antibiotic for lower left leg skin wound. Keflex 500 mg twice a day for 10 days. Nurse notes, history and physical were reviewed and confirmed, see attached forms. The nurse was present throughout the physical exam and consultation Dictated by: David Mcgraw M.D. on 08/22/2023 at 10:59 Approved by: David Mcgraw M.D. on 08/22/2023 at 11:02
== END 2023-08-22 09:56 | disposition home or self-care (01) ==
LOC: VC 09:55
PROVIDERS: PCP Radiology Diagnostic Radiology; Visit Provider Radiology Diagnostic Radiology
DX: I80.01 Phlebitis and thrombophlebitis of superficial vessels of right lower extremity (principal)
CPT/HCPCS: 93971; G0463

== ENCOUNTER 2023-08-29 14:20 | Outpatient (OUT) | payer MEDICARE, SELFPAY ==
--- NOTE | 2023-08-29 14:22 | VEIN_ITS ---
[address] [address] Patient Name: GERRY YOUNGBLOOD MRN: [id number] date: 1955 Sex: F Assigned Patient Location: Current Patient Location: Accession/Order Number: [id number] Exam Date: 08/29/2023 14:23 Report Date: 08/29/2023 15:32 At the request of: VICKIE CORDON Procedure: VC INJ Sclerosing SOLMULT Vein EXAMINATION: VC INJ Sclerosing SOLMULT Vein HISTORY: I83.813 Bilateral leg painful varicose veins The risks and benefits of the procedure were explained at length to the patient and informed written consent was obtained. The procedure was performed under sterile technique. The patient's leg was wrapped with Coban and postprocedural verbal and written instructions provided. Domingo Joe RN was present and assisted. SCLEROSANT: 2mL 0.5% Polidocanol. VEIN(S) INJECTED: 22 veins in the left leg. VISUALIZATION: Ultrasound was not used to visualize the sclerosant. ANESTHESIA: Supercooled air. COMPLICATIONS: None. Electronically authenticated by: FARNAZ SERVIN Date: 08/29/2023 15:32
== END 2023-08-29 14:21 | disposition home or self-care (01) ==
LOC: VC 14:20
PROVIDERS: PCP Radiology Diagnostic Radiology; Visit Provider Radiology Diagnostic Radiology
DX: I83.813 Varicose veins of bilateral lower extremities with pain (principal)
CPT/HCPCS: 36471

== ENCOUNTER 2023-09-07 13:01 | Outpatient (OUT) | payer MEDICARE, SELFPAY ==
--- NOTE | 2023-09-07 13:09 | VEIN_ITS ---
[address] [address] Patient Name: GERRY YOUNGBLOOD MRN: [id number] date: 1955 Sex: F Assigned Patient Location: Current Patient Location: Accession/Order Number: [id number] Exam Date: 09/07/2023 13:05 Report Date: 09/07/2023 13:39 At the request of: VICKIE CORDON Procedure: VC INJ Sclerosing SOLMULT Vein EXAMINATION: VC INJ Sclerosing SOLMULT Vein HISTORY: I83.813 Painful Varicose veins bilateral legs COMPARISON: No relevant comparison available. TECHNIQUE: The risks and benefits of the procedure were explained at length to the patient and informed written consent was obtained. Domingo Joe was present and assisted. The procedure was performed under sterile technique. The patient's leg was wrapped with Coban and postprocedural verbal and written instructions provided. SCLEROSANT: 4 cc, 0.5% polidocanol VEIN(S) INJECTED: 23 veins in the right leg VISUALIZATION: Ultrasound was not used to visualize the sclerosant ANESTHESIA: Supercooled air COMPLICATIONS: None VEIN/VC INJ Sclerosing SOLMULT Vein IMPRESSION: Technically successful sclerotherapy as described Electronically authenticated by: VICKIE CORDON Date: 09/07/2023 13:39
== END 2023-09-07 13:02 | disposition home or self-care (01) ==
LOC: VC 13:02
PROVIDERS: PCP Radiology Diagnostic Radiology; Visit Provider Radiology Diagnostic Radiology
DX: I83.813 Varicose veins of bilateral lower extremities with pain (principal)
CPT/HCPCS: 36471

== ENCOUNTER 2023-09-12 13:00 | Outpatient (OUT) | payer MEDICARE, SELFPAY ==
--- NOTE | 2023-09-12 13:03 | VEIN_ITS ---
[address] [address] Patient Name: GERRY YOUNGBLOOD MRN: [id number] date: 1955 Sex: F Assigned Patient Location: Current Patient Location: Accession/Order Number: [id number] Exam Date: 09/12/2023 13:04 Report Date: 09/12/2023 15:23 At the request of: VICKIE CORDON Procedure: VC INJ Sclerosing SOLMULT Vein EXAMINATION: VC INJ Sclerosing SOLMULT Vein HISTORY: Pain due to varicose veins of bilateral legs I83.813 The risks and benefits of the procedure were explained at length to the patient and informed written consent was obtained. The procedure was performed under sterile technique. The patient's leg was wrapped with Coban and postprocedural verbal and written instructions provided. Domingo Joe RN was present and assisted. SCLEROSANT: 2mL 0.5% Polidocanol. VEIN(S) INJECTED: 32 veins in the left leg. VISUALIZATION: Ultrasound was not used to visualize the sclerosant. ANESTHESIA: Supercooled air. COMPLICATIONS: None. Electronically authenticated by: FARNAZ SERVIN Date: 09/12/2023 15:23
== END 2023-09-12 13:01 | disposition home or self-care (01) ==
LOC: VC 13:00
PROVIDERS: PCP Radiology Diagnostic Radiology; Visit Provider Radiology Diagnostic Radiology
DX: I83.813 Varicose veins of bilateral lower extremities with pain (principal)
CPT/HCPCS: 36471

== ENCOUNTER 2023-09-14 13:50 | Outpatient (OUT) | payer MEDICARE, SELFPAY ==
--- NOTE | 2023-09-14 13:53 | VEIN_ITS ---
[address] [address] Patient Name: GERRY YOUNGBLOOD MRN: [id number] date: 1955 Sex: F Assigned Patient Location: Current Patient Location: Accession/Order Number: [id number] Exam Date: 09/14/2023 13:59 Report Date: 09/14/2023 15:32 At the request of: VICKIE CORDON Procedure: VC INJ Foam Sclerosant WUS FEED MIXER PROCEDURE: VC INJ Foam Sclerosant WUS FEED MIXER HISTORY: I83.813 Pain due to varicose veins of bilateral legs Pre-operative Diagnosis: CEAP class C6 venous insufficiency with pain, tenderness, edema and incompetent branch saphenous vein(s), chronic venous insufficiency right leg secondary to venous incompetence Post-operative Diagnosis: CEAP class C6 venous insufficiency with pain, tenderness, edema and incompetent branch saphenous vein(s), chronic venous insufficiency right leg secondary to venous incompetence Procedure Performed: 1. Ultrasound-guided microfoam chemical ablation with Varithenaregistered 2. Intraoperative ultrasound guidance Physician: Farnaz Mcgraw M.D. Anesthesia: None Indications for Procedure: 68 year old female. Symptoms including dilated bulging veins, leg pain, and swelling for many years despite conservative medical therapy including medical compression stockings, exercise and analgesics. Prior procedures include endovenous laser ablation and microfoam chemical ablation. Multiple incompetent varicosities of the right leg. Duplex scan showed reflux and enlarged diameters up to 5 mm. The patient underwent informed consent including management options where the complications of infection, bleeding, pain, and skin injury were discussed. Particular attention was spent discussing thrombus extension and deep vein thrombosis as well as the possibility of pulmonary embolus and treatment with oral or injectable blood thinners. Procedure: The patient walked to the procedure room. All applicable staff donned appropriate apparel. A procedure timeout was performed to confirm correct patient, correct extremity, correct procedure, and correct room set-up including presence of all applicable supplies, devices, and drugs. A duplex ultrasound, performed by myself confirmed the location and incompetence of branch saphenous varicosities and their course was marked on the skin together with the dilated tributaries. The extent of treatment of the vein and the associated varicosities was determined through ultrasound mapping. The skin was prepped and then punctured with a butterfly needle and advanced under ultrasound guidance. The Varithenaregistered canister was activated and the canister was primed and purged as required in the instructions for use. Varithenaregistered was drawn into a sterile syringe. Varithenaregistered was slowly administered at 0.5-1.0 cc/second with close observation by ultrasound of its course in the vessels. Total volume utilized was: 15 mL (7 mL into a 5 mm varicosity lateral to the knee; 8 mL into a 5 mm varicosity mid lateral upper leg). Following administration of Varithenaregistered the leg was elevated and the patient was asked to repeatedly dorsiflex the ankle to limit flow of Varithenaregistered into perforating veins. Once appropriate spasm had been confirmed in the treated veins, the vascular catheter was removed from the leg and light pressure was applied over the puncture site for hemostasis. The common femoral and deep superficial veins were then evaluated for flow and compressibility prior to dressing placement. The lower extremity was kept elevated at 45 degrees above the horizontal and cording material was applied over the saphenous segments and tributaries to allow for eccentric compression over the target vessels including the targeted saphenous vein(s). A multilayer dressing was applied consisting of foam pads, coban and thigh-high 20-30 mm Hg compression elastic support hose were placed on the patient. The leg was lowered only after compression had been applied and the patient was immediately ambulatory. The patient ambulated 10 minutes under supervision and was without apparent concerns at time of release. Post-care instructions include advising patient to keep post-treatment bandages in place and dry for 48 hours, avoid extended periods of inactivity, avoid heavy exercise for one week, wear compression stockings on the treated leg continuously for two weeks, to walk daily for 10 minutes over the next month. The patient was instructed to take an anti-inflammatory medicine as needed and to follow up for color duplex scan of the Saphenous veins, the treated branch saphenous varicosities, the adjacent deep veins, and additional treatment within 7 days. PERSONNEL: Domingo Joe RN and Jess Da Silva RN Electronically authenticated by: FARNAZ MCGRAW Date: 09/14/2023 15:32
== END 2023-09-14 13:51 | disposition home or self-care (01) ==
LOC: VC 13:52
PROVIDERS: PCP Radiology Diagnostic Radiology; Visit Provider Radiology Diagnostic Radiology
DX: I83.813 Varicose veins of bilateral lower extremities with pain (principal)
CPT/HCPCS: 36466

== ENCOUNTER 2023-09-21 10:33 | Outpatient (OUT) | payer MEDICARE, SELFPAY ==
--- NOTE | 2023-09-21 10:35 | VEIN_ITS ---
Patient Name: GERRY YOUNGBLOOD MR#: [id number] : 1955 Exam Date: 09/21/2023 Ordering Doctor: DR SOLOMON JACKSON M.D. RADIOLOGY REPORT PROCEDURE: [facility] EST LMTD VEIN CENTER - OFFICE VISIT FOLLOW UP COMPARISON: [facility] EST TD, 08/22/2023. [facility] EST TD, 08/11/2023. PROGRESS NOTES: The patient reports no significant problems following micro foam chemical ablation of right leg incompetent varicose veins. The patient has worn her compression stocking. The patient continues to be seen at the [facility] wound care center for skin ulceration in the anterior right lower leg related to micro foam chemical injection. This wound continues to improve with shedding of the eschar yesterday. Granulation tissue was noted encroaching from the margins partially covering the exposed fat layer. Decrease in skin thickening and erythema compared to the patient's past exam. Multiple residual reticular and spider veins are observed. Review of the ultrasound performed the same day demonstrates occlusive thrombus extending throughout the treated right leg veins with no deep vein thrombus. Three incompetent perforating veins are identified measuring up to 5.2 mm. This likely is one of the causes of the patient's slow wound healing. In light of the patient's continued wound healing, we decided to pulse her treatments for 3 months as the patient's next treatment would be intravenous laser ablation of incompetent perforating veins in the region the patient's healing ulceration period after this ulceration heals consider treatment of these perforating veins. VEIN/[facility] EST TD IMPRESSION: 1. Successful ablation of treated right leg incompetent varicose veins 2. Healing right leg skin ulcer 3. Three incompetent perforating veins in the right leg subjacent to patient's ulcer PLAN: Follow-up in 3 months to evaluate wound healing and possible continuation of treatment with intravenous laser ablation of incompetent right leg perforating veins subjacent to the active ulcer. Nurse notes, history and physical were reviewed and confirmed, see attached forms. The nurse was present throughout the physical exam and consultation Dictated by: Solomon Jackson MD on 09/21/2023 at 13:30 Approved by: Solomon Jackson MD on 09/21/2023 at 13:34
--- NOTE | 2023-09-21 10:35 | VEIN_ITS ---
Patient Name: GERRY YOUNGBLOOD MR#: [id number] : 1955 Exam Date: 09/21/2023 Ordering Doctor: DR SOLOMON JACKSON M.D. RADIOLOGY REPORT PROCEDURE: VC EXT VENOUS RT LMTD COMPARISON: VC EXT VENOUS RT LMTD, 08/22/2023. VC EXT VENOUS RT LMTD, 08/11/2023. INDICATIONS: I80.01 Phlebitis of superficial veins of rt lower extremity TECHNIQUE: Lower extremity may scale and Duplex Doppler evaluation of the deep venous system from the inguinal ligament through the calf veins. FINDINGS: REGION: Right lower extremity. THROMBI: Negative for DVT. Varithena induced thrombus visualized at lateral knee and mid/anterior thigh. COMPRESSIBILITY: Non-compressible segments corresponding to thrombus FLOW: Areas of no flow corresponding to thrombus OTHER: Near area of wound are 3 incompetent perforators. Ant/mid calf 2.8mm with 1.2s reflux. Ant/mid calf 4.6mm with 1.6s reflux. Dist/med calf 5.2mm with 1.0s reflux. CONCLUSION: 3 incompetent perforating veins measuring up to 5.2 mm Dictated by: Solomon Jackson MD on 09/21/2023 at 11:08 Approved by: Solomon Jackson MD on 09/21/2023 at 11:10
== END 2023-09-21 10:34 | disposition home or self-care (01) ==
LOC: VC 10:33
PROVIDERS: PCP Radiology Diagnostic Radiology; Visit Provider Radiology Diagnostic Radiology
DX: I80.01 Phlebitis and thrombophlebitis of superficial vessels of right lower extremity (principal)
CPT/HCPCS: 93971; G0463

== ENCOUNTER 2023-12-18 10:49 | Outpatient (OUT) | payer MEDICARE, SELFPAY ==
--- NOTE | 2023-12-18 08:07 | VEINCLINIC_ITS ---
Vital Signs 12/18/23 11:41 Height 5 ft 2 in Weight 74.843 kg BMI 30.2 Varicose Veins Patient in this day for 3 month follow up right leg ultrasound and consult with physician. Solomon Massey MD personally performed the services described in this documentation, as scribed by Alisha Shrestha RDMS in my presence and it is both accurate and complete. Alisha Massey RDMS, am scribing for, and in the presence of, Dr. Solomon Jackson and in the presence of the patient. thigh: bilateral, knee: bilateral, calf: bilateral, ankle: bilateral and kiser: bilateral aching, burning, sharp and other (itching, heavy) 4 1 year Worsened in recent months: Yes standing and sitting bed rest, elevating extremities, compression stockings and exercise Reports heaviness, leg edema and other (leg ulcers, cellulitis) History of lower extremity trauma: No Superficial thrombophlebitis: Yes Family history of varicose veins: yes (mother) Has patient had previous lower extremity venous surgery: Yes Patient has previously received the following treatment(s) for lower extremity varicose veins: Reports vein ablation, sclerotherapy, foam therapy and laser therapy Does patient have a history of : no Does patient intend to have future pregnancies: no Has patient had lower extremity venous scan with relux testing: Yes Support hose used: Yes (since 2019) How does it affect you: has to frequently stop, rest, and elevate legs Do you walk much: Yes Do you stand much: No Medication compliance: fair Large amounts of Vitamin K: No Review of Systems ROS Narrative Solomon Massey MD personally performed the services described in this documentation, as scribed by Alisha Shrestha RDMS in my presence and it is both accurate and complete. Alisha Massey RDMS, am scribing for, and in the presence of, Dr. Solomon Jackson and in the presence of the patient. Status of ROS 10 or more systems reviewed and unremark able except as noted in history and below Cardiovascular Reports: edema, swelling of feet/ankles and leg pain with exertion Musculoskeletal Reports: extremity pain, extremity swelling, joint pain, muscle cramps and muscle weakness Integumentary/Breast Reports: itching, redness, skin swelling, sores, non- healing lesion and changes in skin color Neurological Reports: weakness in extremities Hematologic/Lymphatic Reports: easy bruising PFSH [facility] Medical History (Updated 12/18/23 @ 08:42 by Alisha Shrestha) Phlebitis and thrombophlebitis of superficial vessels of right lower extremity ?I80.01 - Phlebitis and thrombophlebitis of superficial vessels of right lower extremity (ICD-10) Restless leg syndrome ?G25.81 - Restless legs syndrome (ICD-10) Varicose veins of bilateral lower extremities with pain ?I83.813 - Varicose veins of bilateral lower extremities with pain (ICD-10) Irritable bowel syndrome (IBS) ?K58.9 - Irritable bowel syndrome without diarrhea (ICD-10) Hypothyroidism ?E03.9 - Hypothyroidism, unspecified (ICD-10) Hypertension ?I10 - Essential (primary) hypertension (ICD-10) Gallstones ?K80.20 - Calculus of gallbladder without cholecystitis without obstruction (ICD-10) Palpitations ?R00.2 - Palpitations (ICD-10) Fibromyalgia ?M79.7 - Fibromyalgia (ICD-10) Gastroesophageal reflux ?K21.9 - Gastro-esophageal reflux disease without esophagitis (ICD-10) Surgical History (Updated 12/18/23 @ 08:28 by Alisha Shrestha) History of surgery on arm ?Z98.890 - Other specified postprocedural states (ICD-10) History of cholecystectomy ?Z90.49 - Acquired absence of other specified parts of digestive tract (ICD- 10) History of total knee replacement ?Z96.659 - Presence of unspecified artificial knee joint (ICD-10) History of hysterectomy ?Z90.710 - Acquired absence of both cervix and uterus (ICD-10) Family History (Updated 12/18/23 @ 08:30 by Alisha Shrestha) Mother Family history of CHF (congestive heart failure) Varicose veins of bilateral lower extremities with pain Father Family history of cancer Meds Home Medications and Allergies Home Medications ?Medication ?Instructions ?Recorded ?Confirmed ?Type acyclovir 400 mg tablet 400 mg PO DAILY 12/18/23 12/18/23 History amitriptyline 50 mg tablet 50 mg PO DAILY 12/18/23 12/18/23 History atenolol 50 mg tablet 50 mg PO DAILY 12/18/23 12/18/23 History clindamycin phosphate 1 % topical 1 applic topical DAILY 12/18/23 12/18/23 History solution escitalopram oxalate 10 mg tablet 10 mg PO DAILY 12/18/23 12/18/23 History gabapentin 100 mg capsule 100 mg PO TID 12/18/23 12/18/23 History levothyroxine 50 mcg capsule 50 mcg PO DAILY 12/18/23 12/18/23 History multivitamin (Daily Multi-Vitamin 1 tab PO DAILY 12/18/23 12/18/23 History tablet) omeprazole 40 mg capsule,delayed 40 mg PO BID 12/18/23 12/18/23 History release ondansetron HCl 4 mg tablet 4 mg PO TID-QID PRN nausea and 12/18/23 12/18/23 History vomiting ropinirole 0.25 mg QID 12/18/23 History tramadol 50 mg tablet 50 mg PO DAILY 12/18/23 12/18/23 History Allergies Allergy/AdvReac Type Severity Reaction Status Date / Time adhesive Allergy Unknown Rash Verified 12/18/23 08:41 contact metal agent Allergy Unknown Hives Verified 12/18/23 08:41 pregabalin [From Lyrica] Allergy Unknown swelling Verified 12/18/23 08:41 Exam Narrative Exam Narrative: Improvement of bilateral lower leg ulcers. Solomon Massey MD personally performed the services described in this documentation, as scribed by Alisha Shrestha RDMS in my presence and it is both accurate and complete. Alisha Massey RDMS am scribing for, and in the presence of, Dr. Solomon Jackson and in the presence of the patient. Constitutional Common normals: oriented x3 Lymph Lymphatic: no lymphedema noted Cardio Peripheral pulses: posterior tibial pulses present and dorsalis pedis pulses present Extremity General: calf tenderness, edema and other findings (Non-healing Ulcer) Right lower extremity: lower leg Right lower leg: inspection, palpation and other Left lower extremity: lower leg Left lower leg: inspection, palpation and other Neuro Common normals: oriented x3 Results Imaging Venous US: Radiologist's impression: Multiple patent perforators ans single varicose vein in right lower leg. Solomon Massey MD personally performed the services described in this documentation, as scribed by Alisha Shrestha RDMS in my presence and it is both accurate and complete. I, Alisha Bollenbacher RDMS, am scribing for, and in the presence of, Dr. Solomon Jackson and in the presence of the patient. Assessment and Plan Assessment and Plan (1) Phlebitis and thrombophlebitis of superficial vessels of right lower extremity: Plan Plan is for patient to return for Varithena/microfoam of left leg on 12/21/23. ISolomon MD personally performed the services described in this documentation, as scribed by Alisha Shrestha RDMS in my presence and it is both accurate and complete. Alisha Massey RDMS, am scribing for, and in the presence of, Dr. Solomon Jackson and in the presence of the patient.
--- NOTE | 2023-12-18 08:44 | P.DS_ITS ---
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 - Location: Vein Center Ordered By: Solomon Jackson Follow Up Appointments: 12/21/23 Plan of Treatment: Varithena/microfoam of left leg Print Language: Telugu Discharge Date/Time: 12/18/23 11:46
--- NOTE | 2023-12-18 08:44 | W.VEIN ---
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
--- NOTE | 2023-12-18 10:53 | VEIN_ITS ---
Patient Name: GERRY YOUNGBLOOD MR#: [id number] : 1955 Exam Date: 12/18/2023 Ordering Doctor: DR SOLOMON JACKSON M.D. RADIOLOGY REPORT PROCEDURE: VC EXT VENOUS RT LMTD COMPARISON: VC EXT VENOUS RT LMTD, 09/21/2023. VC EXT VENOUS RT LMTD, 08/22/2023. INDICATIONS: I80.01 Phlebitis of superficial veins of rt lower extremity TECHNIQUE: Lower extremity may scale and Duplex Doppler evaluation of the deep venous system from the inguinal ligament through the calf veins. FINDINGS: REGION: Right lower extremity. THROMBI: Negative for DVT. Chemcially induced thrombus in multiple varicose veins in lower leg. COMPRESSIBILITY: Non-compressible segments corresponding to thrombus FLOW: Areas of no flow corresponding to thrombus OTHER: Patent check scaler distal medial lower leg measures 5.1 mm with 2.8s reflux. Linseed Cake Trimmer proximal medial lower leg measures 3.7mm with 4.8s reflux. Patent varicose vein medial knee that arises from check scaler distal thigh measures 8.2 mm with 2.4 s reflux. CONCLUSION: 1. Post ablation occlusion of treated varicose veins with no deep vein thrombus 2. Multiple incompetent perforating veins Dictated by: Solomon Jackson MD on 12/18/2023 at 11:34 Approved by: Solomon Jackson MD on 12/18/2023 at 11:35
--- NOTE | 2023-12-18 10:53 | VEIN_ITS ---
Patient Name: GERRY YOUNGBLOOD MR#: [id number] : 1955 Exam Date: 12/18/2023 Ordering Doctor: DR SOLOMON JACKSON M.D. RADIOLOGY REPORT PROCEDURE: FACILITY EST LMTD VEIN CENTER - OFFICE VISIT FOLLOW UP COMPARISON: [facility] EST LMTD, 09/21/2023. [facility] EST LMTD, 08/22/2023. PROGRESS NOTES: The patient reports no significant problems following right leg micro foam chemical ablation. The patient has worn her compression stocking. The patient did not require oral analgesics. Physical exam demonstrates complete healing of bilateral leg ulcerations. Marked improvement in appearance of the legs with no residual skin thickening or erythema. Bilateral varicose veins are noted left greater than right. Review of the ultrasound performed the same day demonstrates occlusive thrombus extending throughout the treated right leg varicose veins with no deep vein thrombus. Multiple right leg incompetent perforating veins are identified. In light of the patient's marked improvement on physical exam and lack of an active venous stasis ulceration, I recommended that we defer treatment of her incompetent perforating veins at this time. VEIN/[facility] EST LMTD IMPRESSION: 1. Successful ablation of treated right leg incompetent varicose veins 2. Persistent incompetent right leg perforating veins in left leg varicose veins. PLAN: Micro foam chemical ablation left leg incompetent varicose veins Nurse notes, history and physical were reviewed and confirmed, see attached forms. The nurse was present throughout the physical exam and consultation Dictated by: Solomon Jackson MD on 12/18/2023 at 11:44 Approved by: Solomon Jackson MD on 12/18/2023 at 11:46
[2023-12-18 11:41] VITALS: BMI 30.2
== END 2023-12-18 11:46 | disposition home or self-care (01) ==
LOC: VC 10:52
PROVIDERS: PCP Radiology Diagnostic Radiology; Visit Provider Radiology Diagnostic Radiology
DX: I80.01 Phlebitis and thrombophlebitis of superficial vessels of right lower extremity (principal)
CPT/HCPCS: 93971; G0463

== ENCOUNTER 2023-12-21 09:50 | Outpatient (OUT) | payer MEDICARE, SELFPAY ==
--- NOTE | 2023-12-20 11:27 | VEINCLINIC_ITS ---
Vital Signs 12/21/23 10:55 BP 151/70 H BP Location Left Brachial BP Position Sitting BP Cuff Size Adult BP Source Automatic Cuff Respiration 18 Pulse 75 Pulse Source Monitor Pulse Oximetry (%) 96 Oxygen Delivery Method Room Air Comment The patient's blood pressure is elevated. Varicose Veins Patient in this day for EVLT of left AASV David Massey MD personally performed the services described in this documentation, as scribed by Domingo Joe RN in my presence and it is both accurate and complete. Domingo Massey RN, am scribing for, and in the presence of, Dr. David Mcgraw and in the presence of the patient. thigh: bilateral, knee: bilateral, calf: bilateral, ankle: bilateral and kiser: bilateral aching, burning, sharp and other (itching, heavy) 4 1 year Worsened in recent months: Yes standing and sitting bed rest, elevating extremities, compression stockings and exercise Reports heaviness, leg edema and other (leg ulcers, cellulitis) History of lower extremity trauma: No Superficial thrombophlebitis: Yes Family history of varicose veins: yes (mother) Has patient had previous lower extremity venous surgery: Yes Patient has previously received the following treatment(s) for lower extremity varicose veins: Reports vein ablation, sclerotherapy, foam therapy and laser therapy Does patient have a history of : no Does patient intend to have future pregnancies: no Has patient had lower extremity venous scan with relux testing: Yes Support hose used: Yes (since 2019) How does it affect you: has to frequently stop, rest, and elevate legs Do you walk much: Yes Do you stand much: No Medication compliance: fair Large amounts of Vitamin K: No Review of Systems ROS Narrative David Massey MD personally performed the services described in this documentation, as scribed by Domingo Joe RN in my presence and it is both accurate and complete. Domingo Massey RN, am scribing for, and in the presence of, Dr. David Mcgraw and in the presence of the patient. Status of ROS 10 or more systems reviewed and unremark able except as noted in history and below Cardiovascular Reports: edema, swelling of feet/ankles and leg pain with exertion Musculoskeletal Reports: extremity pain, extremity swelling, joint pain, muscle cramps and muscle weakness Integumentary/Breast Reports: itching, redness, skin swelling, sores, non- healing lesion and changes in skin color Neurological Reports: weakness in extremities Hematologic/Lymphatic Reports: easy bruising PFSH PFSH Medical History (Updated 12/18/23 @ 08:42 by Alisha Shrestha) Phlebitis and thrombophlebitis of superficial vessels of right lower extremity ?I80.01 - Phlebitis and thrombophlebitis of superficial vessels of right lower extremity (ICD-10) Restless leg syndrome ?G25.81 - Restless legs syndrome (ICD-10) Varicose veins of bilateral lower extremities with pain ?I83.813 - Varicose veins of bilateral lower extremities with pain (ICD-10) Irritable bowel syndrome (IBS) ?K58.9 - Irritable bowel syndrome without diarrhea (ICD-10) Hypothyroidism ?E03.9 - Hypothyroidism, unspecified (ICD-10) Hypertension ?I10 - Essential (primary) hypertension (ICD-10) Gallstones ?K80.20 - Calculus of gallbladder without cholecystitis without obstruction (ICD-10) Palpitations ?R00.2 - Palpitations (ICD-10) Fibromyalgia ?M79.7 - Fibromyalgia (ICD-10) Gastroesophageal reflux ?K21.9 - Gastro-esophageal reflux disease without esophagitis (ICD-10) Surgical History (Updated 12/21/23 @ 15:15 by Domingo Joe) S/P sclerotherapy of varicose veins ?Z98.890 - Other specified postprocedural states (ICD-10) ?Z86.79 - Personal history of other diseases of the circulatory system (ICD- 10) History of surgery on arm ?Z98.890 - Other specified postprocedural states (ICD-10) History of cholecystectomy ?Z90.49 - Acquired absence of other specified parts of digestive tract (ICD- 10) History of total knee replacement ?Z96.659 - Presence of unspecified artificial knee joint (ICD-10) History of hysterectomy ?Z90.710 - Acquired absence of both cervix and uterus (ICD-10) Family History (Updated 12/18/23 @ 08:30 by Alisha Shrestha) Mother Family history of CHF (congestive heart failure) Varicose veins of bilateral lower extremities with pain Father Family history of cancer Meds Home Medications and Allergies Home Medications ?Medication ?Instructions ?Recorded ?Confirmed ?Type acyclovir 400 mg tablet 400 mg PO DAILY 12/18/23 12/18/23 History amitriptyline 50 mg tablet 50 mg PO DAILY 12/18/23 12/18/23 History atenolol 50 mg tablet 50 mg PO DAILY 12/18/23 12/18/23 History clindamycin phosphate 1 % topical 1 applic topical DAILY 12/18/23 12/18/23 History solution escitalopram oxalate 10 mg tablet 10 mg PO DAILY 12/18/23 12/18/23 History gabapentin 100 mg capsule 100 mg PO TID 12/18/23 12/18/23 History levothyroxine 50 mcg capsule 50 mcg PO DAILY 12/18/23 12/18/23 History multivitamin (Daily Multi-Vitamin 1 tab PO DAILY 12/18/23 12/18/23 History tablet) omeprazole 40 mg capsule,delayed 40 mg PO BID 12/18/23 12/18/23 History release ondansetron HCl 4 mg tablet 4 mg PO TID-QID PRN nausea and 12/18/23 12/18/23 History vomiting ropinirole 0.25 mg QID 12/18/23 History tramadol 50 mg tablet 50 mg PO DAILY 12/18/23 12/18/23 History Allergies Allergy/AdvReac Type Severity Reaction Status Date / Time adhesive Allergy Unknown Rash Verified 12/18/23 08:41 contact metal agent Allergy Unknown Hives Verified 12/18/23 08:41 pregabalin [From Lyrica] Allergy Unknown swelling Verified 12/18/23 08:41 Exam Narrative Exam Narrative: David Massey MD personally performed the services described in this documentation, as scribed by Domingo Joe RN in my presence and it is both accurate and complete. Domingo Massey RN, am scribing for, and in the presence of, Dr. David Mcgraw and in the presence of the patient. Constitutional Common normals: oriented x3 Lymph Lymphatic: no lymphedema noted Cardio Peripheral pulses: posterior tibial pulses present and dorsalis pedis pulses present Extremity General: calf tenderness, edema and other findings (Non-healing Ulcer) Right lower extremity: lower leg Right lower leg: inspection, palpation and other Left lower extremity: lower leg Left lower leg: inspection, palpation and other Neuro Common normals: oriented x3 Assessment and Plan Assessment and Plan (1) Varicose veins of bilateral lower extremities with pain: Plan f/u evaluation with physician along with left leg limited u/s David Massey MD personally performed the services described in this documentation, as scribed by Domingo Joe RN in my presence and it is both accurate and complete. Domingo Massey RN, am scribing for, and in the presence of, Dr. David Mcgraw and in the presence of the patient. Procedures Procedure Instructions Procedures leg microfoam chemical ablation/Varithena: Risks and benefits of the procedure were discussed at length and informed written consent was obtained.? Time-out procedure was performed and the correct patient and procedure were confirmed.? Staff present during time-out: Domingo Joe RN and David Mcgraw MD.? Patient prepped and procedure performed in usual sterile fashion.? Patient was placed in Trendelenburg prior to Polido canol/Varithena injections. Sclerosing Agent:?? 12cc 1% Polidocanol/Varithena Site Injected: left lecc varithena administered in to a 3mm varicose vein mid medial lower leg 5cc varithena administered in to a 4mm varicose vein mid anterior thigh Number of Injections:? 2 The patient tolerated the procedure well without complication.? Hemostasis was obtained and thigh-high compression stocking was applied with foam pads.? Instructed patient to wear stocking for at least 96 hours and sleep with it and only remove for showering.? The patient was instructed to? wear stocking for 2 weeks.? Patient verbalizes understanding and states they will comply.? Patient w as given post-procedure instructions. Patient was discharged in good condition.? Scheduled to undergo limited venous ultrasound and? exam on 12/28/2023. David Massey MD personally performed the services described in this documentation, as scribed by Domingo Joe RN in my presence and it is both accurate and complete. Domingo Massey RN, am scribing for, and in the presence of, Dr. David Mcgraw and in the presence of the patient.
--- NOTE | 2023-12-20 11:46 | P.DS_ITS ---
Discharge Plan Discharge Disposition: Home, Self-Care Outpatient Diagnostics: [facility] Facility EST LMTD (Routine) Timeframe: 2 Weeks Facility: [facility] - Location: [facility] Center Ordered By: David Mcgraw VC EXT Venous LT Limited (Routine) Timeframe: 2 Weeks Facility: [facility] - Location: Vein Center Ordered By: David Mcgraw Follow Up Appointments: 12/28/2023 Plan of Treatment: f/u evaluation with physician along with left leg limited u/s Patient Instructions: Polidocanol (By injection) (Asclera, Varithena) Print Language: Com[place]an Discharge Date/Time: 12/21/23 15:19
--- NOTE | 2023-12-21 10:07 | VEIN_ITS ---
[address] [address] Patient Name: GERRY YOUNGBLOOD MRN: [id number] date: 1955 Sex: F Assigned Patient Location: Current Patient Location: Accession/Order Number: [id number] Exam Date: 12/21/2023 10:10 Report Date: 12/21/2023 12:58 At the request of: VICKIE CORDON Procedure: VC INJ Foam Sclerosant WUS SOCIAL MEDIA ANALYST PROCEDURE: VC INJ Foam Sclerosant WUS SOCIAL MEDIA ANALYST HISTORY: I83.813 - Varicose veins of bilateral lower extremities w... Pre-operative Diagnosis: CEAP class C6 venous insufficiency with pain, tenderness, edema and incompetent branch saphenous vein(s), chronic venous insufficiency left leg secondary to venous incompetence Post-operative Diagnosis: CEAP class C6 venous insufficiency with pain, tenderness, edema and incompetent branch saphenous vein(s), chronic venous insufficiency [ leg secondary to venous incompetence Procedure Performed: 1. Ultrasound-guided microfoam chemical ablation with Varithenaregistered 2. Intraoperative ultrasound guidance Physician: Farnaz Mcgraw M.D. Anesthesia: None Indications for Procedure: 68 year old female. Symptoms including extremity pain, swelling, dilated bulging veins for many years despite conservative medical therapy including medical compression stockings, exercise and analgesics. Prior procedures include endovenous laser ablation and microfoam chemical ablation. Multiple incompetent varicosities of the left leg. Duplex scan showed reflux and enlarged diameters up to 4 mm. The patient underwent informed consent including management options where the complications of infection, bleeding, pain, and skin injury were discussed. Particular attention was spent discussing thrombus extension and deep vein thrombosis as well as the possibility of pulmonary embolus and treatment with oral or injectable blood thinners. Procedure: The patient walked to the procedure room. All applicable staff donned appropriate apparel. A procedure timeout was performed to confirm correct patient, correct extremity, correct procedure, and correct room set-up including presence of all applicable supplies, devices, and drugs. A duplex ultrasound, performed by myself confirmed the location and incompetence of branch saphenous varicosities and their course was marked on the skin together with the dilated tributaries. The extent of treatment of the vein and the associated varicosities was determined through ultrasound mapping. The skin was prepped and then punctured with a butterfly needle and advanced under ultrasound guidance. The Varithenaregistered canister was activated and the canister was primed and purged as required in the instructions for use. Varithenaregistered was drawn into a sterile syringe. Varithenaregistered was slowly administered at 0.5-1.0 cc/second with close observation by ultrasound of its course in the vessels. Total volume utilized was: 12 mL (7 mL into a 3 mm varicosity mid medial lower left leg; 5 mL into a 4 mm varicosity mid anterior thigh). Following administration of Varithenaregistered the leg was elevated and the patient was asked to repeatedly dorsiflex the ankle to limit flow of Varithenaregistered into perforating veins. Once appropriate spasm had been confirmed in the treated veins, the vascular catheter was removed from the leg and light pressure was applied over the puncture site for hemostasis. The common femoral and deep superficial veins were then evaluated for flow and compressibility prior to dressing placement. The lower extremity was kept elevated at 45 degrees above the horizontal and cording material was applied over the saphenous segments and tributaries to allow for eccentric compression over the target vessels including the targeted saphenous vein(s). A multilayer dressing was applied consisting of foam pads, coban and thigh-high 20-30 mm Hg compression elastic support hose were placed on the patient. The leg was lowered only after compression had been applied and the patient was immediately ambulatory. The patient ambulated 10 minutes under supervision and was without apparent concerns at time of release. Post-care instructions include advising patient to keep post-treatment bandages in place and dry for 48 hours, avoid extended periods of inactivity, avoid heavy exercise for one week, wear compression stockings on the treated leg continuously for two weeks, to walk daily for 10 minutes over the next month. The patient was instructed to take an anti-inflammatory medicine as needed and to follow up for color duplex scan of the Saphenous veins, the treated branch saphenous varicosities, the adjacent deep veins, and additional treatment within 7 days. PERSONNEL: Domingo Joe RN Electronically authenticated by: FARNAZ MCGRAW Date: 12/21/2023 12:58
[2023-12-21 10:55] VITALS: BP 151/70; PULSE 75; O2SAT 96
== END 2023-12-21 15:19 | disposition home or self-care (01) ==
LOC: VC 10:06
PROVIDERS: PCP Radiology Diagnostic Radiology; Visit Provider Radiology Diagnostic Radiology
DX: I83.813 Varicose veins of bilateral lower extremities with pain (principal)
CPT/HCPCS: 36466

== ENCOUNTER 2024-01-08 14:28 | Outpatient (OUT) | payer MEDICARE, SELFPAY ==
--- NOTE | 2024-01-08 14:33 | VEIN_ITS ---
Patient Name: GERRY YOUNGBLOOD MR#: [id number] : 1955 Exam Date: 01/08/2024 Ordering Doctor: DR FARNAZ SERVIN M.D. RADIOLOGY REPORT PROCEDURE: VC EXT VENOUS LT LIMITED COMPARISON: VC EXT VENOUS LT LIMITED, 06/30/2023. VC EXT VENOUS LT LIMITED, 06/01/2023. INDICATIONS: I80.02 - Phlebitis and thrombophlebitis of superficial veins left leg TECHNIQUE: Lower extremity may scale and Duplex Doppler evaluation of the deep venous system from the inguinal ligament through the calf veins. FINDINGS: REGION: Left lower extremity. THROMBI: Negative for DVT. Chemically induced thrombus in left leg varicose veins. COMPRESSIBILITY: Non-compressible segments corresponding to thrombus FLOW: Areas of no flow corresponding to thrombus OTHER: Small varicosities remain, none larger than 2.6mm. CONCLUSION: Post ablation occlusion of the treated varicose veins. No deep vein thrombus Dictated by: Solomon Jackson MD on 01/08/2024 at 14:55 Approved by: Solomon Jackson MD on 01/08/2024 at 14:56
--- NOTE | 2024-01-08 14:33 | VEIN_ITS ---
Patient Name: GERRY YOUNGBLOOD MR#: [id number] : 1955 Exam Date: 01/08/2024 Ordering Doctor: DR FARNAZ SERVIN M.D. RADIOLOGY REPORT PROCEDURE: FACILITY EST LMTD [facility] - OFFICE VISIT FOLLOW UP COMPARISON: [facility] EST LMTD, 12/18/2023. [facility] EST LMTD, 09/21/2023. PROGRESS NOTES: The patient reports development of a left leg ulceration following micro foam chemical ablation. The patient is currently being seen by the wound center where she was prescribed Keflex. The patient has not taken oral analgesics. Physical exam demonstrates a 1.5 cm skin ulceration along the mid medial left calf with a surrounding 8 cm diameter area of erythema and warmth , inflammatory changes versus cellulitis. Multiple bilateral thrombosed varicose veins. Moderate residual spider varicose veins Ultrasound demonstrates occlusion of the treated left leg varicose veins with no deep vein thrombus I did discuss with the patient that her ulceration would be slow healing likely requiring 3-6 months. I encouraged her to continue to be seen at the wound center with follow-up with us in 2 months. The patient was asked to call if there are any change in conditions. The patient expressed a desire to proceed with treatment of reticular and spider veins with injection sclerotherapy. The patient reports continued restless leg syndrome with otherwise resolution of the swelling erythema and ulcerations. VEIN/[facility] EST LMTD IMPRESSION: 1. Successful ablation of treated left leg varicose veins 2. Development of a left leg ulceration 3. Persistent reticular and spider veins PLAN: Follow-up in 2 months Continue follow-up with wound care as well as her Keflex prescription until complete Injection sclerotherapy right leg Nurse notes, history and physical were reviewed and confirmed, see attached forms. The nurse was present throughout the physical exam and consultation Dictated by: Solomon Jackson MD on 01/08/2024 at 15:42 Approved by: Solomon Jackson MD on 01/08/2024 at 15:45
[2024-01-08 14:34] VITALS: BMI 29.8
--- NOTE | 2024-01-08 14:34 | V.VEINS.HP ---
Vital Signs 01/08/24 14:34 Height 5 ft 2 in Weight 74 kg BMI 29.8 Varicose Veins Patient in today for follow up ultrasound of left lower extremity following treatment of Varithena/microfoam completed on 12/21/23. Solomon Massey MD personally performed the services described in this documentation, as scribed by Alisha Shrestha RDMS in my presence and it is both accurate and complete. I, Alisha Shrestha RDMS, am scribing for, and in the presence of, Dr. Solomon Jackson and in the presence of the patient. thigh: bilateral, knee: bilateral, calf: bilateral, ankle: bilateral and kiser: bilateral aching, burning, sharp and other (itching, heavy) 4 1 year Worsened in recent months: Yes standing and sitting bed rest, elevating extremities, compression stockings and exercise Reports heaviness, leg edema and other (leg ulcers, cellulitis) History of lower extremity trauma: No Superficial thrombophlebitis: Yes Family history of varicose veins: yes (mother) Has patient had previous lower extremity venous surgery: Yes Patient has previously received the following treatment(s) for lower extremity varicose veins: Reports vein ablation, sclerotherapy, foam therapy and laser therapy Does patient have a history of : no Does patient intend to have future pregnancies: no Has patient had lower extremity venous scan with relux testing: Yes Support hose used: Yes (since 2019) How does it affect you: has to frequently stop, rest, and elevate legs Do you walk much: Yes Do you stand much: No Medication compliance: fair Large amounts of Vitamin K: No Review of Systems ROS Narrative Solomon Massey MD personally performed the services described in this documentation, as scribed by Alisha Shrestha RDMS in my presence and it is both accurate and complete. Shilpa, Alisha Shrestha RDMS, am scribing for, and in the presence of, Dr. Solomon Jackson and in the presence of the patient. Status of ROS 10 or more systems reviewed and unremarkable except as noted in history and below Cardiovascular Reports: edema, swelling of feet/ankles and leg pain with exertion Musculoskeletal Reports: extremity pain, extremity swelling, joint pain, muscle cramps and muscle weakness Integumentary/Breast Reports: itching, redness, skin swelling, sores, non-healing lesion and changes in skin color Neurological Reports: weakness in extremities Hematologic/Lymphatic Reports: easy bruising PFSH PFSH Medical History (Updated 01/08/24 @ 14:35 by Alisha Shrestha) Phlebitis and thrombophlebitis of superficial vessels of left lower extremity ?I80.02 - Phlebitis and thrombophlebitis of superficial vessels of left lower extremity (ICD-10) Phlebitis and thrombophlebitis of superficial vessels of right lower extremity ?I80.01 - Phlebitis and thrombophlebitis of superficial vessels of right lower extremity (ICD-10) Restless leg syndrome ?G25.81 - Restless legs syndrome (ICD-10) Varicose veins of bilateral lower extremities with pain ?I83.813 - Varicose veins of bilateral lower extremities with pain (ICD-10) Irritable bowel syndrome (IBS) ?K58.9 - Irritable bowel syndrome without diarrhea (ICD-10) Hypothyroidism ?E03.9 - Hypothyroidism, unspecified (ICD-10) Hypertension ?I10 - Essential (primary) hypertension (ICD-10) Gallstones ?K80.20 - Calculus of gallbladder without cholecystitis without obstruction (ICD-10) Palpitations ?R00.2 - Palpitations (ICD-10) Fibromyalgia ?M79.7 - Fibromyalgia (ICD-10) Gastroesophageal reflux ?K21.9 - Gastro-esophageal reflux disease without esophagitis (ICD-10) Surgical History (Updated 12/21/23 @ 15:15 by Domingo Joe) S/P sclerotherapy of varicose veins ?Z98.890 - Other specified postprocedural states (ICD-10) ?Z86.79 - Personal history of other diseases of the circulatory system (ICD-10) History of surgery on arm ?Z98.890 - Other specified postprocedural states (ICD-10) History of cholecystectomy ?Z90.49 - Acquired absence of other specified parts of digestive tract (ICD-10) History of total knee replacement ?Z96.659 - Presence of unspecified artificial knee joint (ICD-10) History of hysterectomy ?Z90.710 - Acquired absence of both cervix and uterus (ICD-10) Family History (Updated 12/18/23 @ 08:30 by Alisha Shrestha) Mother Family history of CHF (congestive heart failure) Varicose veins of bilateral lower extremities with pain Father Family history of cancer Meds Home Medications and Allergies Home Medications ?Medication ?Instructions ?Recorded ?Confirmed ?Type acyclovir 400 mg tablet 400 mg PO DAILY 12/18/23 12/18/23 History amitriptyline 50 mg tablet 50 mg PO DAILY 12/18/23 12/18/23 History atenolol 50 mg tablet 50 mg PO DAILY 12/18/23 12/18/23 History clindamycin phosphate 1 % topical 1 applic topical DAILY 12/18/23 12/18/23 History solution escitalopram oxalate 10 mg tablet 10 mg PO DAILY 12/18/23 12/18/23 History gabapentin 100 mg capsule 100 mg PO TID 12/18/23 12/18/23 History levothyroxine 50 mcg capsule 50 mcg PO DAILY 12/18/23 12/18/23 History multivitamin (Daily Multi-Vitamin 1 tab PO DAILY 12/18/23 12/18/23 History tablet) omeprazole 40 mg capsule,delayed 40 mg PO BID 12/18/23 12/18/23 History release ondansetron HCl 4 mg tablet 4 mg PO TID-QID PRN nausea and 12/18/23 12/18/23 History vomiting ropinirole 0.25 mg QID 12/18/23 History tramadol 50 mg tablet 50 mg PO DAILY 12/18/23 12/18/23 History Allergies Allergy/AdvReac Type Severity Reaction Status Date / Time adhesive Allergy Unknown Rash Verified 12/18/23 08:41 contact metal agent Allergy Unknown Hives Verified 12/18/23 08:41 pregabalin (From Lyrica) Allergy Unknown swelling Verified 12/18/23 08:41 Exam Narrative Exam Narrative: New wound developed on 12/22 in area of Varithena injection, meaures 1.5 x 2 cm. Solomon Massey MD personally performed the services described in this documentation, as scribed by Alsiha Shrestha RDMS in my presence and it is both accurate and complete. Alisha Massey RDMS, am scribing for, and in the presence of, Dr. Solomon Jackson and in the presence of the patient. Constitutional Common normals: oriented x3 Lymph Lymphatic: no lymphedema noted Cardio Peripheral pulses: posterior tibial pulses present and dorsalis pedis pulses present Extremity General: calf tenderness, edema and other findings (Non-healing Ulcer) Right lower extremity: lower leg Right lower leg: inspection, palpation and other Left lower extremity: lower leg Left lower leg: inspection, palpation and other Extremity image (front):  1. new wound 12/23/23 Neuro Common normals: oriented x3 Results Imaging Venous US: Radiologist's impression: Chemcially induced thrombus in multiple varicose veins left leg. Solomon Massey MD personally performed the services described in this documentation, as scribed by Alisha Shrestha RDMS in my presence and it is both accurate and complete. Alisha Massey RDMS, am scribing for, and in the presence of, Dr. Solomon Jackson and in the presence of the patient. Assessment and Plan Assessment and Plan (1) Phlebitis and thrombophlebitis of superficial vessels of left lower extremity: Plan Plan is for patient to return for sclerotherapy of bilateral legs on 01/16/24 and to follow up with physician on 02/28/24. Solomon Massey MD personally performed the services described in this documentation, as scribed by Alisha Shrestha RDMS in my presence and it is both accurate and complete. Alisha Massey RDMS, am scribing for, and in the presence of, Dr. Solomon Jackson and in the presence of the patient.
--- NOTE | 2024-01-08 15:53 | W.VEIN ---
Discharge Plan Discharge Disposition: Home, Self-Care Outpatient Diagnostics: [facility] Facility EST LMTD (Routine) Timeframe: 2 Months Facility: [facility] - Location: [facility] Ordered By: Solomon Jackson VC INJ Sclerosing SOLMULT Vein (Routine) Timeframe: 1 Month Facility: [facility] - Location: [facility] Ordered By: Solomon Jackson Follow Up Appointments: 01/16/24, 02/28/24 Plan of Treatment: Sclerotherapy bilateral legs Follow up appointment with doctor 02/28/24 Print Language: Serbian Discharge Date/Time: 01/08/24 15:55
== END 2024-01-08 15:55 | disposition home or self-care (01) ==
PROVIDERS: PCP Radiology Diagnostic Radiology; Visit Provider Radiology Diagnostic Radiology
DX: I80.02 Phlebitis and thrombophlebitis of superficial vessels of left lower extremity (principal)
CPT/HCPCS: 93971; G0463

== ENCOUNTER 2024-01-16 10:51 | Outpatient (OUT) | payer MEDICARE, SELFPAY ==
--- NOTE | 2024-01-16 10:52 | VEIN_ITS ---
[address] [address] Patient Name: GERRY YOUNGBLOOD MRN: [id number] date: 1955 Sex: F Assigned Patient Location: [facility] Current Patient Location: Accession/Order Number: [id number] Exam Date: 01/16/2024 10:52 Report Date: 01/16/2024 12:19 At the request of: VICKIE CORDON Procedure: VC INJ Sclerosing SOLMULT Vein EXAMINATION: VC INJ Sclerosing SOLMULT Vein HISTORY: I83.813 - Varicose veins of bilateral lower extremities w... COMPARISON: No relevant comparison available. TECHNIQUE: The risks and benefits of the procedure were explained at length to the patient and informed written consent was obtained. Jess Da Silva was present and assisted. The procedure was performed under sterile technique. The patient's leg was wrapped with Coban and postprocedural verbal and written instructions provided. SCLEROSANT: 4 cc, 0.5% polidocanol VEIN(S) INJECTED: 24 veins in the right leg VISUALIZATION: Ultrasound was not used to visualize the sclerosant ANESTHESIA: Supercooled air COMPLICATIONS: None VEIN/VC INJ Sclerosing SOLMULT Vein IMPRESSION: Technically successful sclerotherapy as described Electronically authenticated by: VICKIE CORDON Date: 01/16/2024 12:19
[2024-01-16 11:05] VITALS: BP 128/80; PULSE 69; O2SAT 98
--- OUTSIDE RECORDS SUMMARY | 2024-01-16 11:08 | XMS_ITS | CCD ---
Author Organization [facility] Care Team Providers Care Lamination Technician Name Role Phone Ward Zuniga Primary Care Provider Pardeep Barroso Attending Provider Jai Archer Attending Provider Ward Zuniga Primary Care Provider Jai Archer Attending Provider Ward Mtz Attending Provider Ward Zuniga Primary Care Provider [phone] Jai Archer Attending Provider Ward Mtz Attending Provider WARD ZUNIGA Primary Care Physician Unavail able Latonya Frost Unavailable Unavailable Michael Colunga Unavailable Ward Mtz Unavailable Balwinder Parker Unavailable DO Ward Zuniga Primary Care Provider MD Molina Villanueva Attending Provider DO Ward Zuniga Attending Provider [phone] DO Ward Zuniga Primary Care Provider CUBA Bell Attending Provider ISI Griffith Emergency Provider [phone] Unavailable Primary Care Provider Unavailabl e DO Ward Zuniga Primary Care Provider CUBA Bell Attending Provider ISI Griffith Emergency Provider Ward Zuniga Unavailable Unavailable Unavailable MARIANNE CONNIE Referring Unavailable CONLEY, NIMITT Admitting Unavailable PROVIDER, UNKNOWN Attending Unavailable QUINTANILLA CONNIE Referring Unavailable CONLEY, NIMITT Admitting Unavailable PROVIDER, UNKNOWN Attending Unavailable RITTER, NIKITA Referring Unavailable PROVIDER, UNKNOWN Admitting Unavailable PROVIDER, UNKNOWN Attending Unavailable CONLEY, NIMITT Admitting [facility]available [facility] Referring Unavailable PROVIDER, UNKNOWN Attending Unavailable PEBBLES QUINTANILLAEW Referring Unavailable PROVIDER, UNKNOWN Attending Unavailable PROVIDER, UNKNOWN Admitting Unavailable PROVIDER, UNKNOWN Admitting Unavailable PROVIDER, UNKNOWN Attending Unavailable RITTER, NIKITA Referring Unavailable PROVIDER, UNKNOWN Attending Unavailable PROVIDER, UNKNOWN Admitting Unavailable PROVIDER, UNKNOWN Admitting Unavailable PROVIDER, UNKNOWN Attending Unavailable WARD GRAVES Attending Unavailable CONNIE QUINTANILLA Referring Unavailable CONLEY, NIMITT Admitting Unavailable CONSULT, IP CARDIOLOGY Consulting Unavailab le REQUEST, IP PHYSICAL THERAPY SERVICE Consulting Unavailable REQUEST, IP OCCUPATIONAL THERAPY SERVICE Consult ing Unavailable PROVIDER, UNKNOWN Attending Unavailable PROVIDER, UNKNOWN Admitting Unavailable PROVIDER, UNKNOWN Attending Unavailable PROVIDER, UNKNOWN Admitting Unavailable PROVIDER, UNKNOWN Attending Unavailable PROVIDER, UNKNOWN Admitting Unavailable MARIANNE CONNIE Referring Unavailable MARIANNE CONNIE Referring Unavailable CONLEY, NIMITT Admitting Unavailable PROVIDER, UNKNOWN Attending Unavailable Dr. Ward Zuniga Primary Care Faith Marinelli, Dr. Gama Referring Unavailmaryann Marinelli, Dr. Gama Attending Unavaila Dr. Wrad Robin Primary Care [facility] DO Ward Samuel Primary Care Provider DO Ward Zuniga Attending Provider CUBA Saldana Attending Provider DO Maico Perla Emergency Provider MD Ward Mtz Attending Provider [phone] DO Ward Zuniga Primary Care Provider MD Ward Mtz Attending Provider [phone] CUBA Saldana Attending Provider MD Pravin Granado Emergency Provider [phone] MARYCARMEN NAVA Attending Unavailable Ketty Alicia Attending Unavailable Talon Mcbride Referring Unavailabl e Zulay Junior Attending Unavailab le Talon Mcbride Admitting Unavailabl e Reed, Talon Pastrana Attending Unavailabl e Talon Mcbride Referring Unavailabl e RANDY, Ronobir R Admitting Unavailable RANDY, Usamaobir R Attending Unavailable Talon Mcbride Admitting Unavailabl e Reed, Talon Pastrana Attending Unavailabl e Talon Mcbride Referring Unavailabl e DO Ward Zuniga Primary Care Provider MD Pravin Granado Emergency Provider CUBA Saldana Attending Provider Ward Zuniga DO Primary Care Provider Ward Zuniga DO Primary Care Provider DO Ward Zuniga Primary Care Provider CUBA Saldana Attending Provider DO Ward Zuniga Attending Provider CONNIE LEARY Attending Unavailable WARD ZUNIGA Attending Unavailable WARD ZUNIGA Referring Unavailable CONNIE LEARY Referring Unavailable JR. JESUS, VICTORIA Corrigan Attending Unavaila CONNIE Guajardo Attending Unavailable CONNIE LEARY Referring Unavailable ANGELITA CARBONE Attending Unavail able JR. JESUS, VICTORIA Corrigan Referring Unavaila ble TAMIKO TOM Attending Unavailable JR. JESUS, VICTORIA Corrigan Referring Unavaila WARD Robin Attending Unavailable WARD ZUNIGA Referring Unavailable ANGELITA CARBONE Attending Unavail able JR. JESUS, VICTORIA Corrigan Referring Unavaila ble UMANG JOHNSON Attending Unavailable JR. JESUS, VICTORIA Corrigan Referring Unavaila ble DAUCH-WASHOEANGELITA PRICE Attending Unavail able JR. JESUS, VICTORIA Corrigan Referring Unavaila ble TAMIKO TOM Attending Unavailable JR. JESUS, VICTORIA Corrigan Referring Unavaila ble DATAYOWASHOEANGELITA PRICE Attending Unavail able JR. JESUS, VICTORIA Corrigan Referring Unavaila ble DAUCH-WASHOE, ANGELITA L Attending Unavail able JR. JESUS, VICTORIA Corrigan Referring Unavaila ble ALEX, UMANG Attending Unavailable JR. JESUS, VICTORIA Corrigan Referring Unavaila ble TAMIKO TOM Attending Unavailable JR. JESUS, VICTORIA Corrigan Referring Unavaila ble ALEX, UMANG Attending Unavailable JR. JESUS, VICTORIA Corrigan Referring Unavaila ble ALEX, UMANG Attending Unavailable JR. JESUS, VICTORIA Corrigan Referring Unavaila ble JR. JESUS, VICTORIA Corrigan Attending Unavaila ble CONNIE LEARY Attending Unavailable SAPPHIRE, CONNIE Weber Referring Unavailable JAI ARCHER Attending Unavailable SAPPHIRE, CONNIE Weber Attending Unavailable SAPPHIRE, CONNIE Weber Referring Unavailable WARD ZUNIGA Attending Unavailable Adelia Saldana Attending Unavailable Ward Zuniga Primary Care Unavailable Copsukumar, Adelia Admitting Unavailable Ward Zuniga Admitting Unavailable Ward Zuniga Primary Care Unavailable Ward Zuniga Attending Unavailable Shana, Adelia Attending Unavailable Ward Zuniga Primary Care Unavailable Copsukumar, Adelia Admitting Unavailable Adelia Saldana Attending Unavailable Ward Zuniga Primary Care Unavailable Shana, Adelia Admitting Unavailable TY AHUJA Attending Unavailable WARD ZUNIGA Primary Care UnavailJAJA Rubalcava Attending Unavailable WARD ZUNIGA Primary Care UnavailWARD Salas Primary Care UnavailTY Billingsley Referring Unavailable SEVERIANO ROCKWELL Attending Unavailable JAJA REDDY Referring Unavailable WARD ZUNIGA Primary Care UnavailWard Salas DO Primary Care Provider Unavailable Unavailable Unavailable Allergies Allergy Classification Reported Allergen(s) Allergy Type Date of Onset Reaction(s) Facility (19 sources) contact metal agent; Translations: [contact metal agent] Propensity to adverse reactions 12-08-19 19 [facility] (8 sources) Adhesive bandage; Translations: [Adhesive Bandage] Drug allergy rash [facility] (20 sources) DULoxetine; Translations: [duloxetine] Drug Allergy 01-03-20 23 Intolerance [place] Other (15 sources) meloxicam; Translations: [meloxicam] Drug Allergy 01-03-20 23 ., Unknown [facility] Other (20 sources) pregabalin; Translations: [pregabalin] Drug Allergy 05-15-19 23 Swelling [facility] Other (20 sources) Adhesive agent; Translations: [adhesive] Propensity to adverse reactions 12-17-19 [facility] (12 sources) oxaprozin; Translations: [oxaprozin] Drug Allergy 01-03-20 Unknown [facility] (10 sources) rOPINIRole; Translations: [Requip] Drug Allergy dizziness [facility] (12 sources) tiZANidine; Translations: [tiZANidine] Drug Allergy 01-03-20 Unknown [facility] (20 sources) DULoxetine; Translations: [DULOXETINE HCL] Drug Allergy 08-19-19 Agitation, Unknown [facility] (20 sources) Pregabalin Propensity to adverse reactions to drug 05-16-19 [facility] Bandage Tape; Translations: [BANDAGE TAPE] Propensity to adverse reactions 05-16-19 [facility]ching, [facility] ([facility] source) Adhesive Bandages; Translations: [Adhesive Bandages] Allergy to drug (finding) [facility] 600 DO Work Phone: (1 source) Adhesive Paper TAPE; Translations: [Adhesive Paper TAPE] Allergy to drug (finding) [facility] 600 DO Work Phone: (1 source) meloxicam; Translations: [Mobic] Drug Allergy [facility] (1 source) oxaprozin; Translations: [Daypro] Drug Allergy [facility] (1 source) tiZANidine; Translations: [Zanaflex] Drug Allergy [facility] (7 sources) meloxicam Drug Allergy 08-19-19 [facility] (8 sources) rOPINIRole Drug Allergy 08-19-19 dizziness [facility] (6 sources) tiZANidine Drug Allergy 08-19-19 [facility] (7 sources) Wound Dressing Adhesive Drug Intolerance 08-19-19 Rash, Itching [facility] (1 source) DULoxetine Drug Allergy 01-01-20 [facility] (1 source) meloxicam Drug Allergy 01-01-20 [facility] (1 source) oxaprozin Drug Allergy 01-01-20 [facility] (1 source) pregabalin Drug Allergy 01-01-20 [facility] (1 source) rOPINIRole Drug Allergy 01-01-20 [facility] (1 source) tiZANidine Drug Allergy 01-01-20 [facility] Medications Current Medications Medication Drug [...] g 1 09/28/2022 Active Start: 05-25-2016 acyclovir (ZOV IRAX) 400 mg tablet Take 400 mg by mouth. 05/25/2016 Active Comment on above: Take 400 mg by mouth . amitriptyline hydrochloride 50 mg oral tablet (20 sources) Tricyclic Antidepressant Start: 03-29-2017 amitriptyline (ELAVIL) 50 mg tablet Amitriptyline Active 50 MG PO Daily March 29, 2017 12:00am 03/29/2017 Active Start: 03-29-2017 take 1 tablet by pablo th at bedtime amitriptyline (Elavil) 50 MG tablet Indications: Major depression, chronic (CMS/HCC) Take 1 tablet (50 mg) by mouth at bedtime 90 tablet 3 06/14/2023 Active Comment on above: Amitriptyline Active 50 MG PO Daily March 29, 2017 12:00am aspirin 81 mg chewable tablet (20 sources) Platelet Aggregation Inhibitor, Nonsteroidal Anti-inflammatory Drug Start: 05-25-2022 End: 06-24-2022 take 1 tablet by mouth once daily aspirin 81 mg chewable tablet Take 1 tablet by mouth once daily. 05/25/2022 Active Start: 05-25-2022 take 1 tablet by pablo th in the morning aspirin 81 MG EC tablet Take 81 mg by mouth in the morning. 05/25/2022 Active Start: 01-13-2021 aspirin 325 mg Tab Refills(s) 0 Start Date: 01/13/21 Status: Ordered Comment on above: Take 1 tablet by pablo th once daily. atenolol 50 mg oral tablet (20 sources) beta-Adrenergic Pily Start: 3 atenolol (TENORMIN) 50 mg tablet Take 50 mg by mouth. 11/22/2012 Active Comment on above: Take 50 mg by mouth. atorvastatin 40 mg oral tablet (20 sources) HMG-CoA Reductase Inhibitor Start: 3 End: 3 take 1 tablet by mouth once daily atorvastatin (LIPITOR) 40 mg tablet Take 1 Tablet by mouth daily. 30 Tablet 0 05/25/2022 Active Benadryl Allergy 25 MG (4 sources) take 1 tablet by mouth once daily at bedtime as needed Benadryl Allergy 25 MG 1 tablet at bedtime as needed Orally Once a day Active calcium carbonate 1500 mg oral tablet (10 sources) Start: 3 calcium carbonate (CALTRATE) 600 mg calcium (1,500 mg) tab Take 1,200 mg by mouth. 07/26/2022 Active Start: 07-26-2022 calcium (as ca [...] on above: Take 1,200 mg by pablo th. calcium carbonate 1250 mg / cholecalciferol 125 unt oral tablet (7 sources) Vitamin D Start: 10-16-2022 Calcium Carb-Cholecalciferol (Calcium 500 +D) 500-10 MG-MCG tablet 10/16/2022 Active Celebrate Multivitamin (7 sources) Start: 01-13-2021 Celebrate Multivitamin 1 tab(s), Chewed, Daily, Refill(s) [...] day(s), # 28 cap(s), Refills(s) 0, Pharmacy: [facility] [id number], 154, cm, 09/26/22 23:21:00 EDT, Height/Length Dosing, 75.9, kg, 09/26/22 23:21:00 EDT, Weight Dosing Start Date: 09/27/22 Stop Date: 10/04/22 Status: Ordered Start: 05-30-2017 End: 06-06-2017 take 1 capsule by mouth twice daily Cephalexin (Keflex) 500 mg capsule Discontinued 500 MG PO Twice daily 14 May 30, 2017 1:00am June 06, 2017 12:05am Start: 04-24-2017 End: 05-08-2017 take 1 capsule by mouth twice daily Cephalexin (Keflex) 500 mg capsule Discontinued 500 MG PO Twice daily April 24, 2017 1:00am May 08, 2017 1:03am Start: 03-29-2017 End: 04-05-2017 take 2 capsules by mouth twice daily Cephalexin (Keflex) 250 mg capsule Discontinued 500 MG PO .twice daily 07 10March 29, 2017 1:00am April 05, 2017 1:03am cetirizine hydrochloride 10 mg disintegrating oral tablet (16 sources) Histamine-1 Receptor Antagonist Start: 01-13-2021 cetirizine 10 mg ODT Take by mouth. 01/13/2021 Active take 1 tablet by mouth once apryl y ZyrTEC Allergy 10 MG 1 tablet Orally Once a day Active Comment on above: Take by mouth. cholecalciferol 0.05 mg oral capsule (11 sources) Vitamin D Start: 01-13-2021 Cholecalciferol, Vitamin D3, 50 mcg (2,000 unit) cap 1 capsule. 01/13/2021 Active Start: 01-13-2021 take 1 tablet by pablo th once daily Vitamin D3 2000 intl units oral Tab 50 mcg, Oral, Daily, tab(s), Refills(s) 0 Start Date: 01/13/21 Status: Ordered Comment on above: 1 capsule. diphenhydrAMINE (12 sources) Histamine-1 Receptor Antagonist Start: 01-13-2021 Benadryl 25 mg Tab Daily, PRN as needed for allergy symptoms, Refills(s) 0 Start Date: 01/13/21 Status: Ordered take 1 tablet by pablo th every twenty-four hours Benadryl Allergy 25 MG 1 tablet at bedtime as needed Orally Once a day Active docusate sodium 100 mg oral capsule (17 sources) Start: 11-22-2012 docusate sodium (COLACE) 100 mg capsule Take 200 mg by mouth. 11/22/2012 Active Comment on above: Take 200 mg by mouth . ergocalciferol 1.25 mg oral capsule (1 source) Provitamin D2 Compound Start: 11-08-2023 End: 01-31-2024 take 1 capsule by mouth every week ergocalciferol (Vitamin D-2) 1.25 MG (07912 UT) capsule Indications: Vitamin D deficiency Take 1 capsule (1.25 mg) by mouth 1 (one) time per week 12 capsule 11/08/2023 01/31/2024 Active escitalopram 20 mg oral tablet (20 sources) Serotonin Reuptake Inhibitor Start: 09-01-2022 escitalopram oxalate (LEXAPRO) 20 mg tablet Take 20 mg by mouth. 09/01/2022 Active Start: 01-13-2021 take 10 mg by mouth once daily Escitalopram Oxalate Active 10 MG PO Daily May 15, 2022 1:00am Comment on above: Take 20 mg by mouth. estradiol 0.1 mg/ml vaginal cream (7 sources) Estrogen Start: 4 estradiol (Estrace) 0.1 MG/GM vaginal cream Indications: Post menopausal syndrome Insert 0.1 g into the vagina in the morning. 42.5 g 1 03/28/2023 Active estradiol 0.1 mg/g vaginal cream (1 source) Start: 2 estradiol 0.1 mg/g vaginal cream See Instructions, 1 g vaginally daily x 2 weeks, then 3x per week thereafter. apply a pea-sized amount with your finger around the urethra., # 42.5 gm, Refills(s) 5, Pharmacy: [facility] [id number], 154, cm, 07/29/21 11:09:00 EDT, Height/Length Dos... Start Date: 07/29/21 Status: Ordered ferrous sulfate 325 mg oral tablet (1 source) take 1 tablet by mouth at mealtime ferrous sulfate 325 (65 Fe) MG tablet Take 325 mg by mouth in the morning. Take with meals. Active Fiber (3 sources) Fiber Active fluticasone propionate 0.5 mg/ml topical cream (7 sources) Corticosteroid Start: 3 fluticasone (Cutivate) 0.05 % cream Apply 1 application topically 3 (three) times a day as needed. 06/28/2022 Active gabapentin 100 mg oral capsule (20 sources) Anti-epileptic Agent Start: 7 gabapentin (NEURONTIN) 100 mg capsule Gabapentin Active 100 MG PO Three times daily March 29, 2017 12:00am 05/25/2016 Active Start: 05-25-2016 gabapentin (Ne urontin) 100 MG capsule Indications: Fibromyalgia Take 1 capsule (100 mg) by mouth in the morning and 1 capsule (100 mg) before bedtime. 1 tablet at supper and two tablets at night. 180 capsule 3 07/25/2023 Active Start: 05-25-2016 take 2 capsules by [...] Three times daily March 29, 2017 12:00am gentamicin 0.001 mg/mg topical ointment (10 sources) Start: 08-28-2023 Gentamicin Active 1 APPLIC TOPICAL .qd August 28, 2023 12:00am Start: 08-17-2023 Gentamicin Act brittany 1 APPLIC TOPICAL Twice a Week August 17, 2023 12:00am Start: 10-05-2022 End: 11-16-2022 Gentamicin Discontinued 1 AP PLIC TOPICAL .3 times/week October 05, 2022 12:00am November 16, 2022 10:50am thin layer to left leg wound as per wound care orders Handicap Placard 5 year 5 year (9 sources) Start: 06-26-[address] 5 year 5 year 1 misc daily for 5 year *please review for potential _update for e-prescription and drug interaction check* Jun, Active levothyroxine sodium 0.125 mg oral tablet (20 sources) l-Thyroxi ne Start: 05-10-2023 End: 07-17-2024 take 1 tablet by mouth once daily levothyroxine (Synthroid, Levoxyl) 125 MCG tablet Indications: Acquired hypothyroidism (CMS/HCC) Take 1 tablet (125 mcg) by mouth Daily 90 tablet 2 07/18/2023 07/17/2024 Active Start: 01-03-2023 take 1 tablet by pablo th before mealtime levothyroxine (Synthroid, Levoxyl) 100 MCG tablet Indications: Acquired hypothyroidism (CMS/HCC) Take 1 tablet (100 mcg) by mouth in the morning. Take before meals. 90 tablet 1 01/03/2023 Active Start: 10-23-2018 take 100 ug by mouth once apryl y Levothyroxine Active 100 MCG PO Daily October 23, 2018 12:00am Start: 05-31-2016 levothyroxine (SYNTHROID) 50 mcg tablet Levothyroxine Active 100 MCG PO Daily October 22, 2018 11:00pm 05/31/2016 Active Start: 05-31-2016 levothyroxine (SYNTHROID) 50 mcg tablet [...] 2 Receptor Pily Start: 05-24-19 End: 06-24-19 take 1 tablet by mouth once daily losartan (COZAAR) 25 MG tablet Take 1 Tablet by mouth daily. 30 Tablet 0 05/24/2022 Active 24 hr metoprolol succinate 25 mg extended release oral tablet (20 sources) beta-Adrenergic Pily Start: 05-24-19 End: 06-24-19 take 0.5 tablet by mouth once daily metoprolol (TOPROL-XL) 25 mg XL tablet Take 0.5 Tablets by mouth daily. 15 Tablet 0 05/24/2022 Active Multivitamin preparation (6 sources) Start: 10-06-19 take 1 tablet by mouth once daily Multivitamin Active 1 TAB PO Daily October 04, 2022 11:00pm Start: 10-05-2022 take 1 tablet by pablo once daily Multivitamin Active 1 TAB PO Daily October 05, 2022 12:00am omeprazole 40 mg delayed release oral capsule (20 sources) Proton Pump Inhibitor Start: 05-13-2021 omeprazo le (PriLOSEC) [address] capsule Take 40 mg by mouth. 08/11/2022 Active Start: 03-29-2017 End: 05-13-2021 omeprazole (PRILOSEC) 20 mg capsule Take by mouth as directed. 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 11/30/2021 Active Start: 11-30-2021 oxybutynin (DI TROPAN-XL) 10 MG XL tablet Take 10 mg by mouth. 0 11/30/2021 Active Start: 07-29-2021 End: 09-27-2021 take 1 tablet by mouth once daily oxybutynin 10 mg ER Tab 10 mg = 1 tab(s), Oral, Daily, X 30 day(s), # 30 tab(s), Refills(s) 1, Pharmacy: [facility] [id number], 154, cm, 07/29/21 11:09:00 EDT, Height/Length Dosing, 88, kg, 07/29/21 11:09:00 EDT, Weight Dosing Start Date: 07/29/21 Stop Date: 09/27/21 Status: Ordered Start: 07-29-2021 End: 08-28-2021 take 1 tablet by mouth once daily oxybutynin 5 mg ER Tab 5 mg = 1 tab(s), Oral, Daily, X 30 day(s), # 30 tab(s), Refills(s) 0, Pharmacy: [facility] [id number], 154, cm, 07/29/21 11:09:00 EDT, Height/Length Dosing, [...] day(s), # 12 tab(s), Refills(s) 0, Pharmacy: [facility] [id number], 154, cm, 07/18/22 14:13:00 EDT, Height/Length Dosing, 74.6, kg, 07/18/22 14:13:00 EDT, Weight Dosing Start Date: 07/26/22 Stop Date: 07/29/22 Status: Ordered Probiotic (3 sources) Probiotic Active Probiotic tablet delayed-release (7 sources) Probiotic tablet delayed-release as directed Orally Active Probiotic tablet delayed-release as directed Orally 0 Active psyllium 525 mg oral capsule (20 sources) Start: 01-13-2021 take 5 capsules by mouth once daily as needed for constipation Metamucil 525 mg oral capsule 2,625 mg = 5 cap(s), Oral, Daily, PRN for constipation, # 100 cap(s), Refills(s) 0 Start Date: 01/13/21 Status: Ordered psyllium (Metamu cil) 0.52 g capsule 1 capsule. Active take 1 capsule by mouth in the m orning Metamucil 0.52 GM 1 capsule Orally in am Active take 1 capsule by mouth in the m orning Metamucil 0.52 GM 1 capsule Orally in am Active rOPINIRole 2 mg oral tablet (20 sources) Nonergot Dopamine Agonist Start: 05-08-2022 take 4 tablets by mouth once daily rOPINIRole (REQUIP) 2 mg tablet TAKE FOUR TABLETS BY MOUTH DAILY 05/08/2022 Active Start: 05-08-2022 End: 07-18-2022 rOPINIRole (REQUIP) [...] PO Four times daily March 29, 2017 1:00am Start: 03-29-2017 take 0.25 mg by mout [...] oral tablet (20 sources) Opioid Agonist Start: 12-28-2023 take 1 tablet by mouth every six hours for pain traMADol (Ultram) 50 MG tablet Indications: Other chronic pain Take 1 tablet (50 mg) by mouth every 6 (six) hours if needed for severe pain 90 tablet 12/28/2023 Active Start: 08-20-2015 End: 12-28-2023 take 1 tablet by mouth every six hours as needed traMADol (ULTRAM) 50 mg tablet Take 50 mg by mouth every 6 hours as needed. 08/20/2015 Active Start: 08-20-2015 take 50 mg by mouth once daily Tramadol Active 50 MG PO Daily March 29, 2017 1:00am Start: 08-20-2015 take 50 mg by mouth [...] Apply topically 2 (two) times a day. 07/08/2022 Active Start: 01-30-2019 KENALOG - 10 [...] (9 sources) take 1 capsule by mo [facility] once daily Vitamin D3 2000 UNIT 1 capsule Orally Once a day *please review for potential _update for e-prescription and drug interaction check* Active Completed/Discontinued Medications Medication Drug Class(es) Dates Sig (Normalized) Sig (Original) clindamycin 0.01 mg/mg topical gel (6 sources) Lincosamide Antibacterial Start: 10-18-2022 End: 08-07-2023 Clindamycin Phosphate Discontinued 1 APPLIC TOPICAL .3 times weekly 60 October 18, 2022 12:00am August 07, 2023 2:51pm thin layer to lle ulcer per wound orders clobetasol propionate 0.0005 mg/mg topical ointment (18 sources) Corticosteroid Start: 11-23-2018 End: 03-30-2020 apply 1 g topically twice daily Clobetasol Discontinued 1 GM TOPICAL Twice daily November 23, 2018 12:00am March 30, 2020 5:18pm apply thin layer to red area left leg doxycycline hyclate 100 mg oral capsule (20 sources) Tetracycline-class Drug Start: 02-02-2023 End: 08-07-2023 take 100 mg by mouth twice daily Doxycycline Hyclate Discontinued 100 MG PO Twice daily February 02, 2023 1:00am August 07, 2023 2:51pm Start: 09-27-2022 End: 10-04-2022 take 1 tablet by mouth every twelve hours doxycycline hyclate 100 mg Tab 100 mg = 1 tab(s), Oral, q12hr, X 7 day(s), # 14 tab(s), Refills(s) 0, Pharmacy: [facility] [id number], 154, cm, 09/26/22 23:21:00 EDT, Height/Length Dosing, 75.9, kg, 09/26/22 23:21:00 EDT, Weight Dosing Start Date: 09/27/22 Stop Date: 10/04/22 Status: Ordered Start: 11-08-2018 End: 11-23-2018 take 100 mg by mouth twice daily Doxycycline Hyclate Discontinued 100 MG PO Twice daily November 08, 2018 12:00am November 23, 2018 1:42pm iohexol (OMNIPAQUE) 350 MG/ML injection (1 source) Start: 07-05-2022 End: 07-05-2022 iohexol (OMNIPAQUE) 350 MG/ML injection mupirocin 0.02 mg/mg topical ointment (18 sources) RNA Synthetase Inhibitor Antibacterial Start: 11-23-2018 End: 03-30-2020 Mupirocin Discontinued 1 APPLIC TOPICAL Twice daily November 23, 2018 12:00am March 30, 2020 5:18pm apply to wound on left leg nystatin 100 unt/mg topical powder (6 sources) Polyene Antifungal Start: 02-14-2023 End: 08-07-2023 Nystatin Discontinued 1 APPLIC TOPICAL .3 times/week February 14, 2023 1:00am August 07, 2023 2:51pm apply to left leg as per wound care orders Start: 02-13-2023 End: 08-07-2023 Nystatin Discontinued 1 APPL IC TOPICAL .3 times weekly February 13, 2023 1:00am August 07, 2023 2:51pm apply to left leg rash with each dressing simethicone 80 mg chewable tablet (4 sources) Start: 09-10-2021 take 1 tablet by mouth three times daily as needed Simethicone 80 MG 1 tablet Orally three times a day prn for 30 day(s) Aug, Not-Taking Problems Active Problems Problem Classification Problem Date Documented Da te Episodic/Chronic Acute myocardial infarction (9 sources) Acute non-ST segment elevation myocardial infarction; [...] sites with unspecified severity] Onset: 1 Resolved: 4 Chronic Complications of surgical procedures or medical care (5 sources) Non-healing surgical wound; Translations: [Other complications of procedures, not elsewhere classified, initial encounter] Onset: 4 10-16-2023 Episodic Coronary atherosclerosis and other heart disease (12 sources) Coronary atherosclerosis; Translations: [Atherosclerotic heart disease of [place] coronary artery without angina pectoris] Onset: 3 Chronic Deficiency and other anemia (1 source) Anemia, unspecified; Translations: [Anemia, unspecified] Onset: 4 Episodic Disorders of lipid metabolism (20 sources) Mixed hyperlipidemia; Translations: [Mixed hyperlipidemia] Onset: 8 05-16-2022 Chronic E Codes: Fall (6 sources) Fall; Translations: [Unspecified fall, initial encounter] 11-04-2022 Episodic Esophageal disorders (20 sources) Gastroesophageal reflux disease; Translations: [Chalasia of lower esophageal sphincter] Onset: 1 Resolved: 3 05-25-2016 Chronic Essential hypertension (10 sources) Benign essential hypertension; Translations: [Benign essential hypertension] Onset: 3 08-29-2022 Chronic Genitourinary symptoms and ill-defined conditions (20 sources) Mixed incontinence; Translations: [Urinary incontinence] Onset: 2 Chronic Genitourinary symptoms and ill-defined conditions (8 sources) Urgent desire to urinate; Translations: [Urgency of urination] Onset: 2 Episodic Hypertension with complications and secondary hypertension (8 sources) Hypertensive emergency; Translations: [Hypertensive emergency] 05-15-2022 Chronic Malaise and fatigue (20 sources) Chronic fatigue syndrome; Translations: [Chronic fatigue, unspecified] Onset: 1 01-13-2021 Chronic Mood disorders (20 sources) Depressive disorder; Translations: [Major depressive disorder, single episode, unspecified] Onset: 1 07-29-2021 Chronic Mycoses (4 sources) Candidiasis; Translations: [Candidiasis, unspecified] 02-27-2023 Episodic Nausea and vomiting (4 sources) Nausea and vomiting; Translations: [Nausea with vomiting, unspecified] 12-17-2022 Episodic Open wounds of extremities (15 sources) Open wound of right lower leg; Translations: [Unspecified open wound, right lower leg, initial encounter] 06-16-2017 Episodic Open wounds of head; neck; and trunk (11 sources) Wound pain ; Translations: [Wound pain] 10-05-2022 Episodic Osteoarthritis (11 sources) Arthritis; Translations: [Arthritis] 07-29-2021 Chronic Other acquired deformities (9 sources) Lumbar spondylolisthesis; Translations: [Spondylolisthesis, lumbar region] Episodic Other aftercare (7 sources) Wound ; Translations: [Encounter for other specified surgical aftercare] 06-22-2022 Episodic Other aftercare (1 source) Long-term current use of drug therapy; Translations: [Other usp (current) drug therapy] Onset: 3 Episodic Other and ill-defined heart disease (20 sources) Takotsubo cardiomyopathy; Translations: [Takotsubo syndrome] Onset: 3 05-24-2022 Chronic Other and unspecified benign neoplasm (17 sources) History of adenomatous polyp of colon; Translations: [Encounter for screening for malignant neoplasm of colon] 03-31-2020 Episodic Other and unspecified benign neoplasm (9 sources) History of polyp of colon; Translations: [Personal history of colonic polyps] Episodic Other circulatory disease (7 sources) History of cardiac arrhythmia 05-25-2016 Episodic Other connective tissue disease (9 sources) Fibromyositis; Translations: [Fibromyalgia] Episodic Other diseases of bladder and urethra (2 sources) Detrusor overactivity; Translations: [Overactive bladder] Onset: 2 Chronic Other diseases of bladder and urethra (20 sources) Overactive bladder; Translations: [Overactive bladder] Onset: 3 11-30-2021 Chronic Other diseases of veins and lymphatics (18 sources) Venous stasis; Translations: [Other specified disorders [...] 2 Resolved: 2 Chronic Other gastrointestinal disorders (13 sources) Constipation; Translations: [Constipation] 05-25-2016 Episodic Other gastrointestinal disorders (3 sources) Dysphagia; Translations: [Dysphagia, unspecified] Episodic Other gastrointestinal disorders (1 source) Heartburn; Translations: [Heartburn] 05-08-2023 Episodic Other gastrointestinal disorders (1 source) Constipation, unspecified; Translations: [Constipation, unspecified constipation type] Onset: 4 Episodic Other hematologic conditions (20 sources) Raised cardiac enzyme or marker; Translations: [Other specified abnormalities of plasma proteins] 05-18-2022 Episodic Other hereditary and degenerative nervous system conditions (20 sources) Restless legs; Translations: [Restless legs syndrome] Onset: 6 05-25-2016 Chronic Other injuries and conditions due to external causes (2 sources) Other injury of unspecified body region, initial encounter; Translations: [Open wound(s) (multiple) of unspecified site(s), without mention of complication] 11-06-2023 Episodic Other nervous system disorders (20 sources) Chronic pain; Translations: [Other chronic pain] Onset: 3 08-29-2022 Chronic Other non-traumatic joint disorders (2 sources) Derangement of left shoulder joint; Translations: [Other specific joint derangements of left shoulder, not elsewhere classified] 05-02-2023 Chronic Other non-traumatic joint disorders (7 sources) Knee pain 05-25-2016 Episodic Other nutritional; endocrine; and metabolic disorders (19 sources) Obesity; Translations: [Obesity, unspecified] 03-29-2017 Chronic [...] Chronic Other nutritional; endocrine; and metabolic disorders (7 sources) Obesity, unspecified; Translations: [Obesity, unspecified] 10-26-2022 Chronic Other screening for suspected conditions (not mental disorders or infectious disease) (20 sources) Encounter for screening for malignant neoplasm of colon; Translations: [Abnormal cardiovascular function] 05-18-2022 Episodic Other skin disorders (18 sources) Ulcer; Translations: [Ulcerative lesion] 10-23-2018 Chronic Residual codes; unclassified (6 sources) Walking aid use - finding; Translations: [Dependence on other enabling machines and devices] 10-05-2022 Chronic Residual codes; unclassified (5 sources) Dependence on other enabling machines and devices; Translations: [Dependence on other enabling machines] 10-26-2022 Chronic Residual codes; unclassified (6 sources) Swelling - edema - symptom; Translations: [Edema, unspecified] Episodic Residual codes; unclassified (12 sources) Edema; Translations: [Edema, unspecified] 10-23-2018 Episodic Residual codes; unclassified (1 source) Refused procedure - parent's wish; Translations: [Procedure and treatment not carried out because of patient's decision for other reasons] Onset: 3 Episodic Residual codes; unclassified (7 sources) Edema, unspecified; Translations: [Edema] 10-26-2022 Episodic Screening and history of mental health and substance abuse codes (10 sources) Ex-smoker; Translations: [Personal history of nicotine dependence] Episodic Comment on above: 2009; Skin and subcutaneous tissue infections (1 source) Cellulitis; Translations: [Cellulitis of unspecified part of limb] Onset: 3 Episodic Superficial injury; contusion (6 sources) Contusion of knee; Translations: [Contusion of unspecified knee, initial encounter] 11-04-2022 Episodic Thyroid disorders (20 sources) Hypothyroidism; Translations: [Hypothyroidism, unspecified] Onset: 3 05-25-2016 Chronic Unclassified (13 sources) Inflammatory disorder; Translations: [Inflammation] 10-05-2022 Unclassified (1 source) Non-pressure chronic ulcer of other part of left lower leg limited to breakdown of skin; Translations: [Non-pressure chronic ulcer of other part of left lower leg limited to breakdown of skin] Onset: 3 Urinary tract infections (10 sources) Urinary tract infectious disease; Translations: [Urinary tract infection, site not specified] Onset: 2 Episodic Past or Other Problems Problem Classification Problem Date Documented Da te Episodic/Chronic Abdominal pain (20 sources) Acute abdominal pain; Translations: [Unspecified abdominal pain] Onset: 05-16-2022 05-17-2022 Episodic Acquired foot deformities (7 sources) Hammer toe; Translations: [Other hammer toe(s) (acquired), right foot] Onset: 08-29-2022 Resolved: 08-29-2022 08-29-2022 Chronic Acquired foot deformities (7 sources) Acquired deformity of toe of right foot; Translations: [Acquired deformities of toe(s), unspecified, right foot] Onset: 08-29-2022 Resolved: 08-29-2022 08-29-2022 Episodic Allergic reactions (7 sources) Flexural atopic dermatitis; Translations: [Other atopic dermatitis] Onset: 08-29-2022 Resolved: 08-29-2022 08-29-2022 Chronic Allergic reactions (8 sources) Eruption due to drug; Translations: [Dermatitis due to drugs and medicines taken internally] Onset: 08-29-2022 Resolved: 08-29-2022 08-29-2022 Episodic Deficiency and other anemia (9 sources) Anemia; Translations: [Anemia, unspecified] Onset: 08-29-2022 08-29-2022 Episodic Esophageal disorders (7 sources) Achalasia of esophagus; Translations: [Achalasia of cardia] Onset: 08-29-2022 Resolved: 08-29-2022 08-29-2022 Episodic Gastritis and duodenitis (4 sources) Gastritis; Translations: [Gastritis, other, specified, without mention of hemorrhage] Episodic Headache; including migraine (4 sources) Headache; Translations: [Chronic headaches] Episodic Hemorrhoids (4 sources) Hemorrhoids without complication; Translations: [Hemorrhoids without complication] Episodic Mood disorders (7 sources) Mood disorders Onset: 01-02-2023 01-02-2023 Other acquired deformities (1 source) Spondylolisthesis, lumbar region; Translations: [Spondylolisthesis, lumbar region M43.16] Onset: 12-29-2020 Resolved: 12-29-2020 Episodic Other and unspecified benign neoplasm (4 sources) Tubular adenoma of colon; Translations: [Tubular adenoma of colon] Episodic Other connective tissue disease (20 sources) Fibromyalgia; Translations: [Fibromyalgia] Onset: 07-06-2015 05-25-2016 Episodic Other connective tissue disease (1 source) Fibromyalgia; Translations: [Fibromyalgia M79.7] Onset: 12-29-2020 Resolved: 12-29-2020 Episodic Other diseases of veins and lymphatics (1 source) Venous insufficiency (chronic) (peripheral) Onset: 02-23-2021 Resolved: 02-23-2021 Episodic Other diseases of veins and lymphatics (20 sources) Stasis dermatitis; Translations: [Venous insufficiency (chronic) (peripheral)] Onset: 11-03-2020 Resolved: 11-14-2023 05-16-2022 Episodic Other diseases of veins and lymphatics (7 sources) Disorder of vein; Translations: [Disorder of vein, unspecified] Onset: 10-17-2022 Resolved: 11-14-2023 10-17-2022 Episodic Other disorders of stomach and duodenum (1 source) Functional dyspepsia Onset: 07-01-2021 Resolved: 07-01-2021 Episodic Other gastrointestinal disorders (1 source) Dysphagia, unspecified Onset: 12-07-2021 Resolved: 12-07-2021 Episodic Other gastrointestinal disorders (1 source) Heartburn; Translations: [Heartburn] Onset: 05-08-2023 Episodic Other nervous system disorders (7 sources) Inattention; Translations: [Attention and concentration deficit] Onset: 08-29-2022 Resolved: 08-29-2022 08-29-2022 Chronic Spondylosis; intervertebral disc disorders; other back problems (20 sources) Degeneration of lumbar intervertebral disc; Translations: [Other intervertebral disc degeneration, lumbar region] Onset: 12-29-2020 Resolved: 11-14-2023 01-13-2021 Chronic Spondylosis; intervertebral disc disorders; other [...] Test Name Value Interpretation Reference Range Facility [facility] 01-09-2024 [facility] Office Visit ([facility] ) -- GERRY VICTORIA ([id number]) 1955 F Date Time Provider Department 01/09/24 11:30 AM TY AHUJA During your visit today, we recorded the following information about you: Pulse Blood pressure Weight 66/minute 183/82 80 kg Ty Ahuja PA-C 01/09/2024 12:37 PM Signed DEPARTMENT OF GASTROENTEROLOGY - FOLLOW UP REASON FOR VISIT Gerry Victoria is a 68 year old female who is scheduled for follow up of constipation and GERD HISTORY OF PRESENT ILLNESS Gerry Victoria is a 68 year old female who presents today for follow up of constipation and GERD. She reports that ever since she had her gallbladder removed in June 2022 she has noticed changes in her bowel habits. She is now more constipated than she used to be. She will only move her bowels twice per week and when she does she feels like they are complete blowout and she will sometimes have associated nausea and vomiting. The nausea and vomiting only occurs when she is having the significant purge episodes per her report. She takes a probiotic daily but has not noticed that this helps with her symptoms. She has not noticed any BRBPR, melena, fever, chills, unintentional weight loss. She currently takes omeprazole 20 mg in the morning and 20 mg in the evening but notices that she still has indigestion and acid reflux. She is accompanied by her sister who notes that she still eats more fried foods than she should and feels that this is contributing to her symptoms. Pertinent Workup to Date: DAVON Reddy 03/20[birth year] 67-year-old female with past medical history of hypertension, GERD, hypothyroidism, status post cholecystectomy presenting for epigastric pain. Will plan for EGD to further assess possible etiology of her pain. She should continue PPI daily at this time. We discussed MiraLAX as needed for when she is constipated. She otherwise has no red flag or alarm symptoms at this time. She is due for screening colonoscopy in 2025 due to her family history. RTC based on testing EGD 04/2023 - Normal mucosa was found in the entire esophagus. - Z-line regular, 35 cm from the incisors. - Normal stomach. Biopsied. - Normal examined duodenum. Biopsied. Recommendation: - Await pathology results. - Discharge patient to home. - Resume previous diet. - Continue present medications. Past Clinical Work-Up: XR cholangiogram 07/05/2022: IMPRESSION: [...] dependent pelvis, increased from the prior study. I have personally reviewed labs, current medication, allergies, PMH, PSH, family history and social history. Pertinent information has been listed above. Denies Family hx CRC, IBD, celiac Denies Smoking, etoh, illicits, NSAIDs History reviewed. No pertinent past medical history. PAST SURGICAL HISTORY Procedure Laterality Date CHOLECYSTECTOMY COLONOSCOPY SCREENING COLONOSCOPY SCREENING 04/2023 Allergies: Cymbalta [Duloxetin* Intolerance Current Outpatient Medications Medication Sig Dispense Refill acyclovir (ZOVIRAX) 400 mg tablet Take 400 [...] No current facility-administered medications for this visit. Social History Tobacco Use Smoking status: Former Types: Cigarettes Smokeless tobacco: Never Vaping Use Vaping status: Never Used Substance Use Topics Alcohol use: Yes Comment: rare Drug use: Yes Types: Marijuana FAMILY HISTORY Problem Relation Age of Onset Colon C (more content not included)... Normal [facility] XR ABDOMEN 3V KUB W/OBLIQUES on 01-09-2024 XR ABDOMEN 3V KUB W/OBLIQUES * * *Final Report* * * DATE OF EXAM: Jan 09 2024 1:24PM X 5358 - XR ABDOMEN 3V KUB W/OBLIQUES / PROCEDURE REASON: Constipation, unspecified constipation type * * * * Physician Interpretation * * * * EXAMINATION / TECHNIQUE: XR ABDOMEN 3V KUB W/OBLIQUES PATIENT/TECHNOLOGIST PROVIDED HISTORY: constipation CLINICAL INFORMATION ( PROVIDED BY ORDERING CLINICIAN) : Constipation, unspecified constipation type COMPARISON: RESULT: Moderate to large colonic stool burden most prominent in the transverse and ascending colon, with a smaller burden in the descending and rectosigmoid colon. Surgical clips in the right upper quadrant. No urolithiasis identified. Degenerative changes in the spine and hips are noted. Visualized lung bases are unremarkable. IMPRESSION: Moderate to large colonic stool burden. Senior Statistician: PSCB Transcribe Date/Time: Jan 09 2024 4:07P Dictated by : KEITH RODRIGUEZ MD This examination was interpreted and the report reviewed and electronically signed by: KEITH RODRIGUEZ MD on Jan 09 2024 4:08PM EST [id number] Normal [facility] XR Abdomen GE 3 Views AP and Oblique and [place] 10-15-2024 IMPRESSION: Moderate to large colonic stool burden. Senior Statistician: FELIX Transcribe Date/Time: Jan 09 2024 4:07P Dictated by : KEITH RODRIGUEZ MD This examination was interpreted and the report reviewed and electronically signed by: KEITH RODRIGUEZ MD on Jan 09 2024 4:08PM [facility] * * *Final Report* * * DATE OF EXAM: Jan 09 2024 1:24PM VHX 5358 - XR ABDOMEN 3V KUB W/OBLIQUES / PROCEDURE REASON: Constipation, unspecified constipation type * * * * Physician Interpretation * * * * EXAMINATION / TECHNIQUE: XR ABDOMEN 3V KUB W/OBLIQUES PATIENT/TECHNOLOGIST PROVIDED HISTORY: constipation CLINICAL INFORMATION ( PROVIDED BY ORDERING CLINICIAN) : Constipation, unspecified constipation type COMPARISON: RESULT: Moderate to large colonic stool burden most prominent in the transverse and ascending colon, with a smaller burden in the descending and rectosigmoid colon. Surgical clips in the right upper quadrant. No urolithiasis identified. Degenerative changes in the spine and hips are noted. Visualized lung bases are unremarkable. [facility] Provider, [facility] - 01/09/2024 * * *Final Report* * * DATE OF EXAM: Jan 09 2024 1:24PM VHX 5358 - XR ABDOMEN 3V KUB W/OBLIQUES / PROCEDURE REASON: Constipation, unspecified constipation type * * * * Physician Interpretation * * * * EXAMINATION / TECHNIQUE: XR ABDOMEN 3V KUB W/OBLIQUES PATIENT/TECHNOLOGIST PROVIDED HISTORY: constipation CLINICAL INFORMATION ( PROVIDED BY ORDERING CLINICIAN) : Constipation, unspecified constipation type COMPARISON: RESULT: Moderate to large colonic stool burden most prominent in the transverse and ascending colon, with a smaller burden in the descending and rectosigmoid colon. Surgical clips in the right upper quadrant. No urolithiasis identified. Degenerative changes in the spine and hips are noted. Visualized lung bases are unremarkable. IMPRESSION IMPRESSION: Moderate to large colonic stool burden. Senior Statistician: FELIX Transcribe Date/Time: Jan 09 2024 4:07P Dictated by : KEITH RODRIGUEZ MD This examination was interpreted and the report reviewed and electronically signed by: KEITH RODRIGUEZ MD on Jan 09 2024 4:08PM EST [facility] Radiology Study observation (narrative) [facility] XR Abdomen GE 3 Views AP and Oblique and ConeOrdered By: [facility] Provider on 01-09-2024 [facility] Alanine aminotransferase [En zymatic activity/volume] in Serum or PlasmaOrdered By: Ward Zuniga on 11-07-2023 ALT [Catalytic activity/Vol] 6 U/L Low 7-52 [facility] Comment on above: Performed By: #### V [id number], LIPID, URMACRERAT, FE PRO, B12, CMP, T4F, CBC, TSH3 #### [facility] [address] [place] [address] [place] Albumin [Mass/volume] in Ser um or Plasma by Bromocresol green (BCG) dye binding methoOrdered By: Ward Zuniga on 11-07-2023 Albumin BCG dye [Mass/Vol] 4.1 g/dL 3.5-5.7 [facility] Alkaline phosphatase [Enzyma tic activity/volume] in Serum or PlasmaOrdered By: Ward Zuniga on 11-07-2023 ALP [Catalytic activity/Vol] 85 U/L Normal 34-104 [facility] Comment on above: Performed By: #### V [id number], LIPID, URMACRERAT, FE PRO, B12, CMP, T4F, CBC, TSH3 #### [facility] [address] [place] [address] [place] Aspartate aminotransferase [ Enzymatic activity/volume] in Serum or PlasmaOrdered By: Ward Zuniag on 11-07-2023 AST [Catalytic activity/Vol] 14 U/L Normal 13-39 [facility] Comment on above: Performed By: #### V [id number], LIPID, URMACRERAT, FE PRO, B12, CMP, T4F, CBC, TSH3 #### [facility] [address] [place] [address] [place] Automated basophil %Ordered By: Ward Zuniga on 11-07-2023 Basophils/100 WBC (Bld) 1.8 % Normal . [facility] Comment on above: Performed By: #### V [id number], LIPID, URMACRERAT, FE PRO, B12, CMP, T4F, CBC, TSH3 #### [address] Automated basophil countOrde red By: Ward Zuniga on 11-07-2023 Basophils (Bld) [#/Vol] 0.1 10*3/uL Normal 0.0-0.2 [facility] Comment on above: Result Comment: PERF ORMED BY: [place] [address] PATHOLOGIST HYDROGEOLOGY PROFESSOR WILDER BOTELLO M.D. Performed By: #### V [id number], LIPID, URMACRERAT, FE PRO, B12, CMP, T4F, CBC, TSH3 #### [address] Automated blood monocyte cou ntOrdered By: Ward Zuniga on 11-07-2023 Monocytes (Bld) [#/Vol] 0.4 10*3/uL Normal 0.0-0.8 [facility] Comment on above: Performed By: #### V [id number], LIPID, URMACRERAT, FE PRO, B12, CMP, T4F, CBC, TSH3 #### [address] Automated eosinophil %Ordere d By: Ward Zuniga on 11-07-2023 Eosinophils/100 WBC (Bld) 2.4 % Normal . [facility] Comment on above: Performed By: #### V [id number], LIPID, URMACRERAT, FE PRO, B12, CMP, T4F, CBC, TSH3 #### [address] Automated eosinophil countOr dered By: Ward Zuniga on 11-07-2023 Eosinophils (Bld) [#/Vol] 0.1 10*3/uL Normal 0.0-0.45 [facility] Comment on above: Performed By: #### V [id number], LIPID, URMACRERAT, FE PRO, B12, CMP, T4F, CBC, TSH3 #### [address] Automated monocyte %Ordered By: Ward Zuniga on 11-07-2023 Monocytes/100 WBC (Bld) 9.4 % Normal . [facility] Comment on above: Performed By: #### V [id number], LIPID, URMACRERAT, FE PRO, B12, CMP, T4F, CBC, TSH3 #### [facility] [address] Automated neutrophil %Ordere d By: Ward Zuniga on 11-07-2023 Neutrophils/100 WBC (Bld) 61.4 % Normal . [facility] Comment on above: Performed By: #### V [id number], LIPID, URMACRERAT, FE PRO, B12, CMP, T4F, CBC, TSH3 #### [facility] [address] Bilirubin.total [Mass/volume ] in Serum or PlasmaOrdered By: Ward Zuniga on 11-07-2023 Bilirubin [Mass/Vol] 0.4 mg/dL Normal 0.3-1.0 [facility] Comment on above: Performed By: #### V [id number], LIPID, URMACRERAT, FE PRO, B12, CMP, T4F, CBC, TSH3 #### [facility] [address] Calcium [Mass/volume] in Ser um or PlasmaOrdered By: Ward Zuniga on 11-07-2023 Calcium [Mass/Vol] 8.7 mg/dL Normal 8.6-10.3 [facility] Comment on above: Performed By: #### V [id number], LIPID, URMACRERAT, FE PRO, B12, CMP, T4F, CBC, TSH3 #### [facility] [address] Carbon dioxide, total [Moles /volume] in Serum or PlasmaOrdered By: Ward Zuniga on 11-07-2023 CO2 [Moles/Vol] 32.0 mmol/L High 21.0-31.0 [facility] Comment on above: Performed By: #### V [id number], LIPID, URMACRERAT, FE PRO, B12, CMP, T4F, CBC, TSH3 #### [facility] [address] [place] [id number] [place] Chloride [Moles/volume] in S nia or PlasmaOrdered By: Ward Zuniga on 11-07-2023 Chloride [Moles/Vol] 101 mmol/L Normal 98-107 [facility] Comment on above: Performed By: #### V [id number], LIPID, URMACRERAT, FE PRO, B12, CMP, T4F, CBC, TSH3 #### [facility] [address] [place] [id number] [place] Cholesterol [Mass/volume] in Serum or PlasmaOrdered By: Ward Zuniga on 11-07-2023 Cholesterol [Mass/Vol] 162 mg/dL Normal 140-200 [facility] Comment on above: Chol less than 200 m g/dl low riskChol 201-239 mg/dl borderline riskChol 240 mg/dl and greater high risk Result Comment: Chol less than 200 mg/dl low risk Chol 201-239 mg/dl borderline risk Chol 240 mg/dl and greater high risk Performed By: #### V [id number], LIPID, URMACRERAT, FE PRO, B12, CMP, T4F, CBC, TSH3 #### [facility] [address] [place] [id number] [place] Cholesterol in LDL Calc [Mas s/Vol]Ordered By: Ward Zuniga on 11-07-2023 Cholesterol in LDL [Mass/Vol] 98 mg/dL 0-100 [facility] Comment on above: LDL ATP III CLASSIFI CATIONLDL less than 100 mg/dL OptimalLDL 100-129 mg/dL Near or above optimalLDL 130-159 mg/dL Borderline highLDL 160-189 mg/dL HighLDL greater than 189 mg/dL Very high Cholesterol in VLDL Calc [Ma ss/Vol]Ordered By: Ward Zuniga on 11-07-2023 Cholesterol in VLDL [Mass/Vol] 19 mg/dL [facility] Complete Blood Count Auto Di ffon 11-07-2023 Mean Corpuscular HGB Conc 33.3 g/dL Normal 32.0-35.0 [facility] Comment on above: Performed By: #### V [id number], LIPID, URMACRERAT, FE PRO, B12, CMP, T4F, CBC, TSH3 #### [address] NRBC% 0.1 /100{WBC} Normal 0-0.5 [facility] Comment on above: Performed By: #### V [id number], LIPID, URMACRERAT, FE PRO, B12, CMP, T4F, CBC, TSH3 #### [address] Comprehensive Metabolic Pane lit 11-07-2023 Albumin [Mass/Vol] 4.1 g/dL Normal 3.5-5.7 [facility] Comment on above: Performed By: #### V [id number], LIPID, URMACRERAT, FE PRO, B12, CMP, T4F, CBC, TSH3 #### [address] GFR/1.73 sq M.predicted MDRD (S/P/Bld) [Vol rate/Area] mL/min/{1.73_m2} Normal [facility] Comment on above: Performed By: #### V [id number], LIPID, URMACRERAT, FE PRO, B12, CMP, T4F, CBC, TSH3 #### [address] Creatinine [Mass/volume] in Serum or PlasmaOrdered By: Ward Zuniga on 11-07-2023 Creatinine [Mass/Vol] 0.99 mg/dL Normal 0.60-1.20 [facility] Comment on above: Performed By: #### V [id number], LIPID, URMACRERAT, FE PRO, B12, CMP, T4F, CBC, TSH3 #### [address] Creatinine [Mass/volume] in UrineOrdered By: Ward Zuniga on 11-07-2023 Creatinine (U) [Mass/Vol] 83.00 mg/dL [facility] Comment on above: No reference range e stablished Erythrocyte distribution wid th [Ratio] by Automated countOrdered By: Ward Zuniga on 11-07-2023 Erythrocyte distribution width (RBC) [Ratio] 16.0 % High 11.9-15.3 [facility] Comment on above: Performed By: #### V [id number], LIPID, URMACRERAT, FE PRO, B12, CMP, T4F, CBC, TSH3 #### [facility] [address] Erythrocytes [#/volume] in B lood by Automated countOrdered By: Ward Zuniga on 11-07-2023 RBC (Bld) [#/Vol] 3.99 10*6/uL Normal 3.60-5.00 [facility] Comment on above: Performed By: #### V [id number], LIPID, URMACRERAT, FE PRO, B12, CMP, T4F, CBC, TSH3 #### [facility] [address] FE PROon 11-07-2023 % Iron Saturation 9.5 % Low 20-50 [facility] Comment on above: Performed By: #### V [id number], LIPID, URMACRERAT, FE PRO, B12, CMP, T4F, CBC, TSH3 #### [facility] [address] Total Iron Binding Capacity 337 ug/dL Normal 255-450 [facility] Comment on above: Performed By: #### V [id number], LIPID, URMACRERAT, FE PRO, B12, CMP, T4F, CBC, TSH3 #### [facility] [address] [place] [address] [place] Ferritin [Mass/volume] in Se rum or PlasmaOrdered By: Ward Zuniga on 11-07-2023 Ferritin [Mass/Vol] 45.5 ng/mL Normal 11.0-306.8 [facility] Comment on above: Performed By: #### V [id number], LIPID, URMACRERAT, FE PRO, B12, CMP, T4F, CBC, TSH3 #### [facility] [address] [id number] [place] Glucose [Mass/volume] in Ser um or PlasmaOrdered By: Ward Zuniga on 11-07-2023 Glucose [Mass/Vol] 82 mg/dL Normal 70-100 [facility] Comment on above: ADA recommended refe rence rangeRandom Glucose Reference Range is dependent on time and content of last meal. Glucose of more than 200 mg/dL in a nonstressed, ambulatory subject supports the diagnosis of Diabetes Mellitus. Result Comment: [place] om Glucose Reference Range is dependent on time and content of last meal. Glucose of more than 200 mg/dL in a nonstressed, ambulatory subject supports the diagnosis of Diabetes Mellitus. ADA recommended reference range Performed By: #### V [id number], LIPID, URMACRERAT, FE PRO, B12, CMP, T4F, CBC, TSH3 #### [facility] [address] [place] [address] Hematocrit [Volume Fraction] of Blood by Automated countOrdered By: Ward Zuniga on 11-07-2023 Hematocrit (Bld) [Volume fraction] 31.7 % Low 34.0-46.4 [facility] Comment on above: Performed By: #### V [id number], LIPID, URMACRERAT, FE PRO, B12, CMP, T4F, CBC, TSH3 #### [facility] [address] [place] [address] Hemoglobin [Mass/volume] in BloodOrdered By: Ward Zuniga on 11-07-2023 Hemoglobin (Bld) [Mass/Vol] 10.6 g/dL Low 11.8-15.4 [facility] Comment on above: Performed By: #### V [id number], LIPID, URMACRERAT, FE PRO, B12, CMP, T4F, CBC, TSH3 #### [facility] [address] [place] [address] Iron [Mass/volume] in Serum or PlasmaOrdered By: Ward Zuniga on 11-07-2023 Iron [Mass/Vol] 32 ug/dL Low 50-212 [facility] Comment on above: Performed By: #### V [id number], LIPID, URMACRERAT, FE PRO, B12, CMP, T4F, CBC, TSH3 #### [facility] [address] Iron binding capacity [Mass/ volume] in Serum or PlasmaOrdered By: Ward Zuniga on 11-07-2023 Iron binding capacity [Mass/Vol] 337 ug/dL 255-450 [facility] Iron saturation [Mass Fracti on] in Serum or PlasmaOrdered By: Ward Zuniga on 11-07-2023 Iron saturation [Mass fraction] 9.5 % Low 20-50 [facility] Leukocytes [#/volume] correc poly for nucleated erythrocytes in Blood by Automated counOrdered By: Ward Zuniga on 11-07-2023 WBC corrected for nucl RBC Auto (Bld) [#/Vol] 4.4 10*3/uL 3.8-11.6 [facility] Leukocytes [#/volume] in Blo od by Automated countOrdered By: Ward Zuniga on 11-07-2023 WBC (Bld) [#/Vol] 4.4 10*3/uL Normal 3.8-11.6 [facility] Comment on above: Performed By: #### V [id number], LIPID, URMACRERAT, FE PRO, B12, CMP, T4F, CBC, TSH3 #### [facility] [address] Lipid Panelon 11-07-2023 LDL Cholesterol,Calculated 98 mg/dL Normal 0-100 [facility] Comment on above: Result Comment: LDL ATP III CLASSIFICATION LDL less than 100 mg/dL Optimal LDL 100-129 mg/dL Near or above optimal LDL 130-159 mg/dL Borderline high LDL 160-189 mg/dL High LDL greater than 189 mg/dL Very high Performed By: #### V [id number], LIPID, URMACRERAT, FE PRO, B12, CMP, T4F, CBC, TSH3 #### [facility] [address] [place] [address] [place] Triglyceride w/Reflex 95 mg/dL Normal 0-149 [facility] Comment on above: Result Comment: TRIG ATP III CLASSIFICATION TRIG less than 150 mg/dL Normal TRIG 150-199 mg/dL Borderline high TRIG 200-500 mg/dL High TRIG greater than 500 mg/dL Very high Standard traceable to the Center for Disease Conrtrol and Prevention (CDC) test method. Performed By: #### V [id number], LIPID, URMACRERAT, FE PRO, B12, CMP, T4F, CBC, TSH3 #### [address] VLDL CHOLESTEROL 19 mg/dL Normal [facility] Comment on above: Performed By: #### V [id number], LIPID, URMACRERAT, FE PRO, B12, CMP, T4F, CBC, TSH3 #### [address] Lymphocytes [#/volume] in Bl ood by Automated countOrdered By: Ward Zuniga on 11-07-2023 Lymphocytes (Bld) [#/Vol] 1.1 10*3/uL Normal 1.00-4.8 [facility] Comment on above: Performed By: #### V [id number], LIPID, URMACRERAT, FE PRO, B12, CMP, T4F, CBC, TSH3 #### [address] Lymphocytes/100 leukocytes i n Blood by Automated countOrdered By: Ward Zuniga on 11-07-2023 Lymphocytes/100 WBC (Bld) 25.0 % Normal . [facility] Comment on above: Performed By: #### V [id number], LIPID, URMACRERAT, FE PRO, B12, CMP, T4F, CBC, TSH3 #### [address] MCH [Entitic mass] by Automa poly countOrdered By: Ward Zuniga on 11-07-2023 MCH (RBC) [Entitic mass] 26.5 pg Normal 24.7-34.3 [facility] Comment on above: Performed By: #### V [id number], LIPID, URMACRERAT, FE PRO, B12, CMP, T4F, CBC, TSH3 #### [address] MCHC Auto (RBC) [Mass/Vol]Or dered By: Ward Zuniga on 11-07-2023 MCHC (RBC) [Mass/Vol] 33.3 g/dL 32.0-35.0 [facility] MCV [Entitic volume] by Auto mated countOrdered By: Ward Zuniga on 11-07-2023 MCV (RBC) [Entitic vol] 79.4 fL Low 80-100 [facility] Comment on above: Performed By: #### V [id number], LIPID, URMACRERAT, FE PRO, B12, CMP, T4F, CBC, TSH3 #### [facility] [address] MicroAlb Creat Ratio,Uon Creatinine, Urine (Random) 83.00 mg/dL Normal [facility] Comment on above: Result Comment: No r eference range established Performed By: #### V [id number], LIPID, URMACRERAT, FE PRO, B12, CMP, T4F, CBC, TSH3 #### [address] Microalbumin/Creatinin e Ratio Not performed Normal 0.0-30.0 [facility] Comment on above: Result Comment: PERF ORMED BY: [place] [address] PATHOLOGIST HYDROGEOLOGY PROFESSOR WILDER BOTELLO M.D. Performed By: #### V [id number], LIPID, URMACRERAT, FE PRO, B12, CMP, T4F, CBC, TSH3 #### [address] Microalbumin [Mass/volume] i n UrineOrdered By: Ward Zuniga on 11-07-2023 Albumin DL <= 20 mg/L (U) [Mass/Vol] mg/dL Normal 0.0-1.8 [facility] Comment on above: Performed By: #### V [id number], LIPID, URMACRERAT, FE PRO, B12, CMP, T4F, CBC, TSH3 #### [address] Neutrophils [#/volume] in Bl ood by Automated countOrdered By: Ward Zuniga on 08-13-2024 Neutrophils (Bld) [#/Vol] 2.7 10*3/uL Normal 1.8-7.7 [facility] Comment on above: Performed By: #### V [id number], LIPID, URMACRERAT, FE PRO, B12, CMP, T4F, CBC, TSH3 #### [facility] [address] No Panel InformationOrdered By: Ward Zuniga on 11-07-2023 Estimated GFR (CKD-EPI) > 60.0 mL/Min [facility] Creatinine Clearance (Chem N/A [facility] Nucleated erythrocytes [Pres ence] in Blood by Automated countOrdered By: Ward Zuniga on 11-07-2023 Nucleated RBC Auto Ql (Bld) 0.1 /100{WBC} 0-0.5 [facility] Platelet mean volume [Entiti c volume] in Blood by Automated countOrdered By: Ward Zuniga on 11-07-2023 Platelet mean volume (Bld) [Entitic vol] 7.6 fL Normal 6.3-10.7 [facility] Comment on above: Performed By: #### V [id number], LIPID, URMACRERAT, FE PRO, B12, CMP, T4F, CBC, TSH3 #### [facility] [address] Platelets [#/volume] in Bloo d by Automated countOrdered By: Ward Zuniga on 11-07-2023 Platelets (Bld) [#/Vol] 237 10*3/uL Normal 150-450 [facility] Comment on above: Performed By: #### V [id number], LIPID, URMACRERAT, FE PRO, B12, CMP, T4F, CBC, TSH3 #### [facility] [address] Potassium [Moles/volume] in Serum or PlasmaOrdered By: Ward Zuniga on 11-07-2023 Potassium [Moles/Vol] 4.4 mmol/L Normal 3.5-5.1 [facility] Comment on above: Performed By: #### V [id number], LIPID, URMACRERAT, FE PRO, B12, CMP, T4F, CBC, TSH3 #### [facility] [address] Protein [Mass/volume] in Ser um or PlasmaOrdered By: Ward Zuniga on 11-07-2023 Protein [Mass/Vol] 6.5 g/dL Normal 6.4-8.9 [facility] Comment on above: Performed By: #### V [id number], LIPID, URMACRERAT, FE PRO, B12, CMP, T4F, CBC, TSH3 #### [facility] [address] [place] [address] Serum globulin measurement b y calculation (mass/volume)Ordered By: Ward Zuniga on 11-07-2023 Globulin (S) [Mass/Vol] 2.4 g/dL Normal [facility] Comment on above: Performed By: #### V [id number], LIPID, URMACRERAT, FE PRO, B12, CMP, T4F, CBC, TSH3 #### [address] Serum or plasma albumin/glob ulin mass ratioOrdered By: Ward Zuniga on 11-07-2023 Albumin/Globulin [Mass ratio] 1.7 {ratio} [facility] Comment on above: Performed By: #### V [id number], LIPID, URMACRERAT, FE PRO, B12, CMP, T4F, CBC, TSH3 #### [facility] [address] [place] [address] Serum or plasma anion gap de terminationOrdered By: Ward Zuniga on 11-07-2023 Anion gap [Moles/Vol] 10.4 mmol/L Normal 6.0-15.0 [facility] Comment on above: Performed By: #### V [id number], LIPID, URMACRERAT, FE PRO, B12, CMP, T4F, CBC, TSH3 #### [address] Serum or plasma high density lipoprotein (HDL) cholesterol measurementOrdered By: Ward Zuniga on 11-07-2023 Cholesterol in HDL [Mass/Vol] 45 mg/dL Normal 23-92 [facility] Comment on above: HDL CHOL ATP-III CLA SSIFICATION Cardiovascular RiskHDL > or equal to 60 mg/dL LOWHDL < 40 mg/dL HIGH Result Comment: HDL CHOL ATP-III CLASSIFICATION Cardiovascular Risk HDL > or equal to 60 mg/dL LOW HDL < 40 mg/dL HIGH Performed By: #### V [id number], LIPID, URMACRERAT, FE PRO, B12, CMP, T4F, CBC, TSH3 #### [facility] [address] Serum or plasma total choles terol/high density lipoprotein (HDL) cholesterol mass ratOrdered By: Ward Zuniga on 11-07-2023 Cholesterol.total/Chol esterol in HDL [Mass ratio] 3.6 {ratio} Normal <5.0 [facility] Comment on above: Performed By: #### V [id number], LIPID, URMACRERAT, FE PRO, B12, CMP, T4F, CBC, TSH3 #### [facility] [address] [place] [address] Sodium [Moles/volume] in Ser um or PlasmaOrdered By: Ward Zuniga on 11-07-2023 Sodium [Moles/Vol] 139 mmol/L Normal 136-145 [facility] Comment on above: Performed By: #### V [id number], LIPID, URMACRERAT, FE PRO, B12, CMP, T4F, CBC, TSH3 #### [facility] [address] [place] [address] Thyrotropin [Units/volume] i n Serum or PlasmaOrdered By: Ward Zuniga on 11-07-2023 TSH Qn 1.79 m[IU]/L Normal 0.45-5.33 [facility] Comment on above: Performed By: #### V [id number], LIPID, URMACRERAT, FE PRO, B12, CMP, T4F, CBC, TSH3 #### [facility] [address] Thyroxine (T4) free [Mass/vo lume] in Serum or PlasmaOrdered By: Ward Zuniga on 11-07-2023 Free T4 [Mass/Vol] 0.82 ng/dL Normal 0.61-1.12 [facility] Comment on above: Performed By: #### V [id number], LIPID, URMACRERAT, FE PRO, B12, CMP, T4F, CBC, TSH3 #### [facility] [address] [place] [address] [place] Transferrin [Mass/volume] in Serum or PlasmaOrdered By: Ward Zuniga on 11-07-2023 Transferrin [Mass/Vol] 241 mg/dL Normal 203-362 [facility] Comment on above: Performed By: #### V [id number], LIPID, URMACRERAT, FE PRO, B12, CMP, T4F, CBC, TSH3 #### [facility] [address] Triglyceride [Mass/volume] i n Serum or PlasmaOrdered By: Ward Zuniga on 11-07-2023 Triglyceride [Mass/Vol] 95 mg/dL 0-149 [facility] Comment on above: TRIG ATP III CLASSIF ICATIONTRIG less than 150 mg/dL NormalTRIG 150-199 mg/dL Borderline highTRIG 200-500 mg/dL High TRIG greater than 500 mg/dL Very highStandard traceable to the Center for Disease Conrtrol and Prevention (CDC) test method. Urea nitrogen [Mass/volume] in Serum or PlasmaOrdered By: Ward Zuniga on 11-07-2023 Urea nitrogen [Mass/Vol] 10 mg/dL Normal 7-25 [facility] Comment on above: Performed By: #### V [id number], LIPID, URMACRERAT, FE PRO, B12, CMP, T4F, CBC, TSH3 #### [facility] [address] Urine microalbumin/creatinin e mass ratioOrdered By: Ward Zuniga on 11-07-2023 Albumin/Creatinine DL <= 20 mg/L (U) [Mass ratio] TNP [facility] Comment on above: Test not performed Vitamin B12 ser/plasOrdered By: Ward Zuniga on 11-07-2023 Cobalamin (Vitamin B12) [Mass/Vol] 313 pg/mL Normal 180-914 [facility] Comment on above: Performed By: #### V [id number], LIPID, URMACRERAT, FE PRO, B12, CMP, T4F, CBC, TSH3 #### [facility] [address] [place] [id number] [place] Vitamin D 25 Hydroxy Totalon 11-07-2023 Vitamin D 25 Hydroxy Total 19.0 ng/mL Low 30-100 [facility] Comment on above: Result Comment: [place] MIN D STATUS 25(OH)VITAMIN D RANGE (ng/mL) Deficient <20 Insufficient 20 to <30 Sufficient 30 to 100 Reference: Andria Pope, Bernardino MCNAMARA, et al. Evaluation,treatment, and prevention of vitamin D deficiency; an Endocrine Society clinical practice guideline. JCEM. 2010; 96(7):191-. PERFORMED BY: [place] [address] PATHOLOGIST HYDROGEOLOGY PROFESSOR WILDER BOTELLO M.D. Performed By: #### V [id number], LIPID, URMACRERAT, FE PRO, B12, CMP, T4F, CBC, TSH3 #### [facility] [address] [id number] [facility] Vitamin D+Metabolites [Mass/ volume] in Serum or PlasmaOrdered By: Ward Zuniga on 11-07-2023 Vitamin D+Metabolites [Mass/Vol] 19.0 ng/mL Low 30-100 [facility] Comment on above: VITAMIN D STATUS 25( [place])VITAMIN D RANGE (ng/mL) Deficient <20 Insufficient 20 to <30Sufficient 30 to 100Reference: Andria Pope, Bernardnio MCNAMARA, et al. Evaluation,treatment, and prevention of vitamin D deficiency; an Endocrine Society clinical practice guideline. JCEM. 2010; 96(7):191-. ANES POSTPROC EVALon 024 ANES POSTPROC EVAL HNO ID: [id number] Author: VICKIE MON MD Service: Anesthesiology Author [...] May 08, 2023 TIME: 2:42 PM CSN: [id number] [facility] ANES PRE-OPon 05-08-2023 ANES PRE-OP HNO ID: [id number] Author: VICKIE MON MD Service: Anesthesiology Author [...] and consent discussed: yes. Patient / Responsible [employer] Party agrees to proceed: yes Patient / Surrogate [...] May 08, 2023 TIME: 12:28 PM CSN: [id number] [facility] EGD Study observation Narrat iveon 05-08-2023 [facility] SURGICAL PATHOLOGYon 024 CASE REPORT [facility] Comment on above: Order Comment: Speci men Type: TISSUE SPECIMEN Ordering Facility: [facility] Address: [address] [place] [address] Result Comment: Surg ica Pathology Report Case: [id number] Authorizing Provider: Jaja Reddy MD Collected: 05/08/2023 12:39 PM Ordering Location: Procedures Received: 05/08/2023 12:56 PM Pathologist: Andi Verdugo MD Specimens: A) - DUODENUM BIOPSY, Random B) - STOMACH BIOPSY, Random Performed By: #### S #### [facility] CLIA [id number] [address] [place] [address] [place] [facility] CLIA [id number] [address] [place] [address] FINAL DIAGNOSIS [facility] Comment on above: Order Comment: Speci men Type: TISSUE SPECIMEN Ordering Facility: [facility] Address: [address] [place] [address] Result Comment: A. D uodenum, biopsy: - Duodenal mucosa with no significant diagnostic alteration. B. Stomach, biopsy: - Gastric antral and fundic mucosa with no significant diagnostic alteration. Performed By: #### S #### [facility] CLIA [id number] [address] [place] [address] [facility] CLIA [id number] [address] [place] [address] FINAL PERFORMING LAB [facility] Comment on above: Order Comment: Speci men Type: TISSUE SPECIMEN Ordering Facility: [facility] Address: [address] [place] [address] Result Comment: Diag nostic interpretation performed at [facility], [address] [place] [address] CLIA# [id number] [employer] Trimmer: Tiera Reddy M.D. Performed By: #### S #### [facility] CLIA [id number] [address] [place] [address] [facility] CLIA [id number] [address] [place] [address] GROSS DESCRIPTION [facility] Comment on above: Order Comment: Speci men Type: TISSUE SPECIMEN Ordering Facility: [facility] Address: [address] [place] [address] Result Comment: A. D UODENUM BIOPSY Received in formalin are two pieces of spencer, soft tissue aggregating to 0.5 x 0.4 x 0.2 cm. Totally submitted in one cassette. B. STOMACH BIOPSY Received in formalin are two pieces of spencer, soft tissue aggregating to 0.8 x 0.5 x 0.2 cm. Totally submitted in one cassette. CL May 08, 2023 5:31 PM Gross examination performed at [facility], [address] [place] [address] Performed By: #### S #### [facility] CLIA [id number] [address] [place] [address] OF [facility] CLIA [id number] [facility] [place] [id number] [place] Upper GI endoscopyon 024 Upper GI endoscopy [facility] Gastrointestinal Endoscopy Patient Name: Gerry Victoria Procedure Date: 05/08/2023 12:26 PM Date of : 1955 Admit Type: Outpatient Age: 67 Room: [place] [address] Gender: Female Note Status: Finalized Attending MD: Jaja Reddy MD, [id number] Procedure: Upper GI endoscopy Indications: Epigastric abdominal [...] procedure by the physician, the nurse, the hvac installer and the geotechnicial properties technician. The procedure was verified in the [...] present medications. Procedure Code(s): --- Professional --- 38981, Esophagogastroduodenoscopy , flexible, transoral; with biopsy, single or multiple Diagnosis Code(s): --- Professional --- R10.13, Epigastric pain R12, Heartburn CPT copyright 2020 [employer]. All rights reserved. The codes documented in this report are preliminary and upon extrusion former review may be revised to meet current compliance requirements. Attending Participation: I personally performed the entire procedure. Scope In: 12:39:06 PM Scope Out: 12:41:37 PM MD Jaja Owens MD 05/08/2023 12:46:15 PM This report has been signed electronically by Jaja Reddy MD Number of Addenda: 0 Note Initiated On: 05/08/2023 12:26 PM Estimated Blood Loss: Estimated blood loss was minimal. Normal [facility] 05-03-2023 [facility] Telephone ([facility]) -- GERRY VICTORIA ([id number]) 1955 F Date Time Provider Department 05/03/23 JAJA REDDY During your visit today, we recorded the following information about you: Susu Leigh OCCA 05/03/2023 11:07 AM Signed Called and spoke with patient regarding prep instructions for upcoming procedure on 05/08/2023. Patient verbalized understanding and made aware prep instructions were also posted to My Chart, patient informed to call [phone] and ask for nurse triage with any [...] scheduled. - YOU MUST HAVE A RESPONSIBLE SUPERINTENDENT CEMETERY TAKE YOU HOME. A NURSE SCHOOL OR CROSSCUTTER CANNOT BE MADE A RESPONSIBLE SUPERINTENDENT CEMETERY. Please call [phone] and ask for Nurse Triage with any [...] Encounter Status:Closed by SUSU LEIGH on 05/03/23 [facility] Abigail 04-19-2023 NINA Office Visit ([facility]ON[facility] ) -- GERRY VICTORIA ([id number]) 1955 F Date Time Provider Department 04/19/23 3:00 PM JAJA REDDY During your visit today, we recorded the following information about you: Pulse Blood pressure Weight Height 68/minute 131/87 79.4 kg 1.549 m Jaja Reddy MD 04/19/2023 2:56 PM Addendum Endoscopy at [facility] 05/08/23 arrive at 11:45am Jaja Reddy [...] No history of dysuria, frequency or incontinence LEADERSHIP COACH: Negative for abnormal vaginal bleeding, abnormal vaginal discharge MUSCULOSKELETAL: Negative for joint pain or swelling, back pain or muscle pain SKIN: Negative for lesions, rash, and itching PSYCH: Negative for sleep disturbance, mood disorder and recent psychosocial stressors HEMATOLOGY/LYMPHOLOGY: Negative for prolonged bleeding, bruising easily or swollen nodes ENDOCRINE: Negative for cold or heat intoleranc (more content not included)... Normal [facility] HISTORY PHYSICALon 4 HISTORY PHYSICAL HNO ID: [id number] Author: JAJA REDDY MD Service: ? Author [...] No history of dysuria, frequency or incontinence LEADERSHIP COACH: Negative for abnormal vaginal bleeding, abnormal vaginal [...] no suspici (more content not included)... Normal [facility] MR SHOULDER LEFT WO IV [...] Urnls Dip Stick Auto w/o Microscopy POC 53970 Your Care Team Attending Physician - DARRYN [...] 1:00 PM EST With: ELIJAH SNOWDEN, MARYCARMEN E Where: [facility] Elvis Pacheco [facility] Patient Educationon 03-02-20 Patient Education Obstetrics [...] provider. Document Revised: 07/22/2021 Document Reviewed: 07/22/2021 [employer] Patient Education ? 2022 [employer]. [facility] [facility]rology Office/Clinic [...] Alcohol - (more content not included)... Normal [facility] Comment on above: Result Comment: Elec tronically Signed By: DARRYN Alicia APRN, [place] X\.br\Date and Time Signed: 03/02/23 13:39 EST\.br\Electronically Co-Signed By: Gema Erickson\.br\Date and Time Co-Signed: 03/02/23 13:37 EST Alanine aminotransferase [En zymatic activity/volume] in Serum or PlasmaOrdered By: Pravin Granado on 12-17-2022 ALT [Catalytic activity/Vol] 11 U/L 7-52 [facility] Albumin [Mass/volume] in Ser um or Plasma by Bromocresol green (BCG) dye binding methoOrdered By: Pravin Granado on 12-17-2022 Albumin BCG dye [Mass/Vol] 4.4 g/dL 3.5-5.7 [facility] Alkaline phosphatase [Enzyma tic activity/volume] in Serum or PlasmaOrdered By: Pravin Granado on 12-17-2022 ALP [Catalytic activity/Vol] 79 U/L 34-104 [facility] Amylase [Enzymatic activity/ volume] in Serum or PlasmaOrdered By: Pravin Granado on 12-17-2022 Amylase [Catalytic activity/Vol] 22 U/L 29-103 [facility] Aspartate aminotransferase [ Enzymatic activity/volume] in Serum or PlasmaOrdered By: Pravin Granado on 12-17-2022 AST [Catalytic activity/Vol] 22 U/L 13-39 [facility] Basophils Auto (Bld) [#/Vol] Ordered By: Pravin Granado on 12-17-2022 Basophils (Bld) [#/Vol] 0.0 10*3/uL 0.0-0.2 [facility] Basophils/100 WBC Auto (Bld) Ordered By: Pravin Granado on 12-17-2022 Basophils/100 WBC (Bld) 0.9 % . [facility] Bilirubin.total [Mass/volume ] in Serum or PlasmaOrdered By: Pravin Granado on 12-17-2022 Bilirubin [Mass/Vol] 0.7 mg/dL 0.3-1.0 [facility] Calcium [Mass/volume] in Ser um or PlasmaOrdered By: Pravin Granado on 12-17-2022 Calcium [Mass/Vol] 9.4 mg/dL 8.6-10.3 [facility] Carbon dioxide, total [Moles /volume] in Serum or PlasmaOrdered By: Pravin Granado on 12-17-2022 CO2 [Moles/Vol] 29.9 mmol/L 21.0-31.0 [facility] Chloride [Moles/volume] in S nia or PlasmaOrdered By: Pravin Granado on 12-17-2022 Chloride [Moles/Vol] 101 mmol/L 98-107 [facility] Creatinine [Mass/volume] in Serum or PlasmaOrdered By: Pravin Granado on 12-17-2022 Creatinine [Mass/Vol] 0.90 mg/dL 0.60-1.20 [facility] Eosinophils Auto (Bld) [#/Vo l]Ordered By: Pravin Granado on 12-17-2022 Eosinophils (Bld) [#/Vol] 0.1 10*3/uL 0.0-0.45 [facility] Eosinophils/100 WBC Auto (Bl d)Ordered By: Pravin Granado on 12-17-2022 Eosinophils/100 WBC (Bld) 2.9 % . [facility] Erythrocyte distribution wid th Auto (RBC) [Ratio]Ordered By: Pravin Granado on 12-17-2022 Erythrocyte distribution width (RBC) [Ratio] 17.1 % 11.9-15.3 [facility] Globulin Calc (S) [Mass/Vol] Ordered By: Pravin Granado on 12-17-2022 Globulin (S) [Mass/Vol] 3.1 g/dL [facility] Glucose [Mass/volume] in Ser um or PlasmaOrdered By: Pravin Granado on 12-17-2022 Glucose [Mass/Vol] 119 mg/dL 70-100 [facility] Comment on above: ADA recommended refe rence rangeRandom Glucose Reference Range is dependent on time and content of last meal. Glucose of more than 200 mg/dL in a nonstressed, ambulatory subject supports the diagnosis of Diabetes Mellitus. Hematocrit Auto (Bld) [Volum e fraction]Ordered By: Pravin Granado on 12-17-2022 Hematocrit (Bld) [Volume fraction] 33.5 % 34.0-46.4 [facility] Hemoglobin [Mass/volume] in BloodOrdered By: Pravin Granado on 12-17-2022 Hemoglobin (Bld) [Mass/Vol] 11.0 g/dL 11.8-15.4 [facility] Leukocytes [#/volume] correc poly for nucleated erythrocytes in Blood by Automated counOrdered By: Pravin Granado on 12-17-2022 WBC corrected for nucl RBC Auto (Bld) [#/Vol] 4.8 10*3/uL 3.8-11.6 [facility] Lipase [Enzymatic activity/v olume] in Serum or PlasmaOrdered By: Pravin Granado on 12-17-2022 Lipase [Catalytic activity/Vol] 8.0 U/L 11.0-82.0 [facility] Lymphocytes Auto (Bld) [#/Vo l]Ordered By: Pravin Granado on 12-17-2022 Lymphocytes (Bld) [#/Vol] 1.2 10*3/uL 1.00-4.8 [facility] Lymphocytes/100 WBC Auto (Bl d)Ordered By: Pravin Granado on 12-17-2022 Lymphocytes/100 WBC (Bld) 24.6 % . [facility] MCH Auto (RBC) [Entitic mass ]Ordered By: Pravin Granado on 12-17-2022 MCH (RBC) [Entitic mass] 27.0 pg 24.7-34.3 [facility] MCHC Auto (RBC) [Mass/Vol]Or dered By: Pravin Granado on 12-17-2022 MCHC (RBC) [Mass/Vol] 32.7 g/dL 32.0-35.0 [facility] MCV Auto (RBC) [Entitic vol] Ordered By: Pravin Granado on 12-17-2022 MCV (RBC) [Entitic vol] 82.6 fL 80-100 [facility] Monocyte distribution width [Entitic volume] in Blood by AutomatedOrdered By: Pravin Granado on 12-17-2022 Monocyte distribution width Auto (Bld) [Entitic vol] 19.78 % 0.00-20.00 [facility] Monocytes Auto (Bld) [#/Vol] Ordered By: Pravin Granado on 12-17-2022 Monocytes (Bld) [#/Vol] 0.3 10*3/uL 0.0-0.8 [facility] Monocytes/100 WBC Auto (Bld) Ordered By: Pravin Granado on 12-17-2022 Monocytes/100 WBC (Bld) 6.1 % . [facility] Neutrophils Auto (Bld) [#/Vo l]Ordered By: Pravin Granado on 12-17-2022 Neutrophils (Bld) [#/Vol] 3.1 10*3/uL 1.8-7.7 [facility] Neutrophils/100 WBC Auto (Bl d)Ordered By: Pravin Granado on 12-17-2022 Neutrophils/100 WBC (Bld) 65.5 % . [facility] No Panel InformationOrdered By: Pravin Granado on 12-17-2022 Estimated GFR (CKD-EPI) > 60.0 mL/Min [facility] Creatinine Clearance (Chem N/A [facility] Nucleated erythrocytes [Pres ence] in Blood by Automated countOrdered By: Pravin Granado on 12-17-2022 Nucleated RBC Auto Ql (Bld) 0.3 /100{WBC} 0-0.5 [facility] Platelet mean volume Auto (B ld) [Entitic vol]Ordered By: Pravin Granado on 12-17-2022 Platelet mean volume (Bld) [Entitic vol] 8.1 fL 6.3-10.7 [facility] Platelets Auto (Bld) [#/Vol] Ordered By: Pravin Granado on 12-17-2022 Platelets (Bld) [#/Vol] 236 10*3/uL 150-450 [facility] Potassium [Moles/volume] in Serum or PlasmaOrdered By: Pravin Granado on 12-17-2022 Potassium [Moles/Vol] 3.3 mmol/L 3.5-5.1 [facility] Protein [Mass/volume] in Ser um or PlasmaOrdered By: Pravin Granado on 12-17-2022 Protein [Mass/Vol] 7.5 g/dL 6.4-8.9 [facility] RBC Auto (Bld) [#/Vol]Ordere d By: Pravin Granado on 12-17-2022 RBC (Bld) [#/Vol] 4.05 10*6/uL 3.60-5.00 [facility] Serum or plasma albumin/glob ulin mass ratioOrdered By: Pravin Granado on 12-17-2022 Albumin/Globulin [Mass ratio] 1.4 {ratio} [facility] Serum or plasma anion gap de terminationOrdered By: Pravin Granado on 12-17-2022 Anion gap [Moles/Vol] 9.4 mmol/L 6.0-15.0 [facility] Sodium [Moles/volume] in Ser um or PlasmaOrdered By: Pravin Granado on 12-17-2022 Sodium [Moles/Vol] 137 mmol/L 136-145 [facility] Urea nitrogen [Mass/volume] in Serum or PlasmaOrdered By: Pravin Granado on 12-17-2022 Urea nitrogen [Mass/Vol] 14 mg/dL 10-18 [facility] WBC Auto (Bld) [#/Vol]Ordere d By: Pravin Granado on 12-17-2022 WBC (Bld) [#/Vol] 4.8 10*3/uL 3.8-11.6 [facility] MRSA Screenon 09-29-2022 MRSA DNA [...] Locations R1: This test was performed at: [facility], [address] [place] [address], [address] , , Normal [facility] Comment on above: Performed By: #### 1 [id number] #### [facility] [address] [place] [address] 21460 Auto Diffon 09-27-2022 Basophils/100 WBC (Bld) 1.0 % Normal 0.0-2.0 [facility] Comment on above: Order Comment: Order Added by Discern Expert. Performed By: #### 2 438459, 68269614, 3965361, 0257825, 3345214, 53794615, 6188474, 7050712 #### [facility] [address] [place] [address] Basophils/Leukocytes Auto (Bld) [Pure # fraction] 0.1 E9/L Normal 0.0-0.2 [facility] Comment on above: Order Comment: Order Added by Discern Expert. Performed By: #### 2 860587, 88864612, 3702119, 0096234, 3489168, 14758978, 3849678, 9015640 #### [facility] [address] [place] [address] Eosinophils/100 WBC (Bld) 8.4 % High 0.0-8.0 [facility] Comment on above: Order Comment: Order Added by Discern Expert. Performed By: #### 2 700391, 85282536, 9221560, 4291501, 9959234, 67721865, 9289922, 6608626 #### [facility] [address] [place] [address] Eosinophils/Leukocytes Auto (Bld) [Pure # fraction] 0.5 E9/L Normal 0.0-0.5 [facility] Comment on above: Order Comment: Order Added by Discern Expert. Performed By: #### 2 363243, 34949108, 8585952, 3245985, 9059341, 98395911, 8022256, 7293136 #### [facility] [address] [place] [address] Lymphocytes/100 WBC (Bld) 18.0 % Normal 14.0-50.0 [facility] Comment on above: Order Comment: Order Added by Discern Expert. Performed By: #### 2 011699, 34277076, 8028971, 0027642, 4538473, 78500712, 4128630, 0155789 #### [facility] [address] [place] [address] Lymphocytes/Leukocytes Auto (Bld) [Pure # fraction] 1.1 E9/L Normal 1.0-4.0 [facility] Comment on above: Order Comment: Order Added by Discern Expert. Performed By: #### 2 654047, 89355292, 4649525, 0268858, 3406574, 68340610, 1655495, 4073289 #### [facility] [address] [place] [address] Monocytes/100 WBC (Bld) 11.2 % Normal 4.0-14.0 [facility] Comment on above: Order Comment: Order Added by Discern Expert. Performed By: #### 2 434086, 10746980, 4022252, 4847911, 1175409, 38785991, 7321823, 8168929 #### [facility] [address] [place] [address] Monocytes/Leukocytes Auto (Bld) [Pure # fraction] 0.7 E9/L Normal 0.2-1.0 [facility] Comment on above: Order Comment: Order Added by Discern Expert. Performed By: #### 2 888472, 53045543, 4408378, 3160294, 0795162, 59538083, 6432956, 2037139 #### [facility] [address] [place] [address] Neutrophils/100 WBC (Bld) 61.4 % Normal 36.0-75.0 [facility] Comment on above: Order Comment: Order Added by Discern Expert. Performed By: #### 2 336507, 18615987, 1547458, 7299039, 0305121, 60267835, 4658821, 9907775 #### [facility] [address] [place] [address] Neutrophils/Leukocytes Auto (Bld) [Pure # fraction] 3.6 E9/L Normal 2.0-7.5 [facility] Comment on above: Order Comment: Order Added by Discern Expert. Performed By: #### 2 578157, 26388022, 9813444, 3669491, 7979379, 80584117, 4271324, 5816296 #### [facility] [address] [place] [address] BMPon 09-27-2022 Creatinine [Mass/Vol] 1.2 mg/dL Normal 0.5-1.3 [facility] Comment on above: Performed By: #### 2 597323, 23958819, 9641679, 5464000, 2512999, 40408044, 9374925, 3219742 #### [facility] [address] [place] [address] Urea nitrogen [Mass/Vol] 17 mg/dL Normal 5-21 [facility] Comment on above: Performed By: #### 2 361869, 63734548, 0279031, 3951464, 0682925, 34519905, 5472618, 7717893 #### [facility] [address] [place] [address] Urea nitrogen/Creatinine [Mass ratio] 14 No Units Normal 10-20 [facility] Comment on above: Performed By: #### 2 189893, 33220596, 4818542, 8761765, 4348231, 82422384, 5087781, 9295178 #### [facility] [address] [place] [address] Anion gap [Moles/Vol] 12 mmol/L Normal 6-16 [facility] Comment on above: Performed By: #### 2 733300, 95407687, 1656522, 9566021, 6025475, 08657358, 2458965, 4631750 #### [facility] [address] [place] [address] Calcium [Mass/Vol] 8.9 mg/dL Normal 8.9-11.1 [facility] Comment on above: Performed By: #### 2 632361, 12988403, 5730334, 1360985, 0932338, 09954128, 5578104, 1693254 #### [facility] [address] [place] [address] Chloride [Moles/Vol] 101 mmol/L Normal 101-111 [facility] Comment on above: Performed By: #### 2 669394, 32131621, 8599250, 7019382, 4851002, 19195333, 9640076, 5943884 #### [facility] [address] [place] [address] CO2 [Moles/Vol] 29 mmol/L Normal 21-31 [facility] Comment on above: Performed By: #### 2 517882, 20839565, 3157325, 9965304, 8925013, 47699976, 6626517, 3985688 #### [facility] [address] [place] [address] Glucose [Mass/Vol] 84 mg/dL Normal 55-199 [facility] Comment on above: Result Comment: If t his glucose result represents a fasting glucose, interpretation should refer to the following reference range: 55-99 mg/dL Performed By: #### 2 407457, 56991538, 1160842, 5242535, 6243904, 50770367, 3685304, 4243904 #### [facility] [address] [place] [address] Potassium [Moles/Vol] 3.6 mmol/L Normal 3.5-5.3 [facility] Comment on above: Performed By: #### 2 160414, 58897697, 9319409, 1876885, 4629296, 58330640, 4329744, 7349636 #### [facility] [address] [place] [address] Sodium [Moles/Vol] 138 mmol/L Normal 135-145 [facility] Comment on above: Performed By: #### 2 025015, 73455515, 9479064, 4595580, 7561128, 47691155, 8152506, 1184117 #### [facility] [address] [place] [address] CBC w/ Auto Diffon 3 Erythrocyte distribution width (RBC) [Ratio] 15.9 % High 10.9-14.2 [facility] Comment on above: Performed By: #### 2 460094, 64964509, 1212208, 0169905, 3502928, 19481842, 2728949, 8224513 #### [facility] [address] [place] [address] Hematocrit (Bld) [Volume fraction] 29.2 % Low 34.0-46.0 [facility] Comment on above: Performed By: #### 2 765884, 74595886, 6025190, 6623225, 7046423, 39209279, 3399272, 6808100 #### [facility] [address] [place] [address] Hemoglobin (Bld) [Mass/Vol] 9.6 g/dL Low 12.0-16.0 [facility] Comment on above: Performed By: #### 2 824266, 10464283, 8947925, 2816671, 9322447, 46124291, 2582479, 6779421 #### [facility] [address] [place] [address] MCH (RBC) [Entitic mass] 26.4 pg Low 27.0-34.0 [facility] Comment on above: Performed By: #### 2 338804, 24717593, 8250501, 3025616, 7722459, 66302120, 1310889, 7319313 #### [facility] [address] [place] [address] MCHC (RBC) [Mass/Vol] 33.0 g/dL Normal 31.4-36.0 [facility] Comment on above: Performed By: #### 2 749046, 95148750, 5641671, 2252150, 9149698, 99748022, 3499065, 5703354 #### [facility] [address] [place] [address] MCV (RBC) [Entitic vol] 79.9 fL Low 80.0-100.0 [facility] Comment on above: Performed By: #### 2 399158, 78329737, 4608883, 6059609, 0082880, 38897299, 3001744, 6383546 #### [facility] [address] [place] [address] Platelet mean volume (Bld) [Entitic vol] 7.9 fL Normal 6.4-10.8 [facility] Comment on above: Performed By: #### 2 718917, 82870276, 6723831, 0812968, 3278745, 79742447, 8491890, 3988554 #### [facility] [address] [place] [address] Platelets (Bld) [#/Vol] 249.0 E9/L Normal 150.0-500. 0 [facility] Comment on above: Performed By: #### 2 821950, 63294357, 8043629, 8294507, 1380075, 68301560, 0065448, 0341994 #### [facility] [address] [place] [address] RBC (Bld) [#/Vol] 3.7 E12/L Low 4.3-5.9 [facility] Comment on above: Performed By: #### 2 973372, 08646573, 8807818, 9173964, 4795140, 93830793, 8294717, 1899312 #### [facility] [address] [place] [address] WBC corrected for nucl RBC Auto (Bld) [#/Vol] 5.9 E9/L Normal 4.0-11.0 [facility] Comment on above: Performed By: #### 2 798844, 58718674, 9121516, 7955793, 9960380, 04286686, 1452927, 0861018 #### [facility] [address] [place] [address] CHEMISTRYOrdered By: SYSTEM SYSTEM on 09-27-2022 Albumin [...] 49 mL/min/1.73 m2 Low >=59mL/min /1.73 m2 [facility] Chem S Globulin (S) [Mass/Vol] 3.2 g/dL [...] 17 mg/dL Normal 5 - 21 mg/dL [facility] Urea nitrogen/Creatinine [Mass ratio] 14 mg/mg Normal 10 - 20 [facility] CRPon 09-27-2022 CRP [Mass/Vol] 7.5 mg/dL High <=1.9 [facility] Comment on above: Performed By: #### 2 978594, 35142164, 0275592, 5966941, 3312608, 10471938, 5149039, 6881574 #### [facility] [address] [place] [address] Consent To Leave AMAon 09-27 Consent To Leave AMA [id number]:127 Normal [facility] Consent for Treatmenton Consent for Treatment [id number]:127 Normal [facility] Discharge Instructionson Discharge Instructions [id number]:127 Normal [facility] ED Clinical Summaryon 2022 ED Clinical Summary (Inserted Image. Zora ble to display) [address] [address] ED Clinical Summary Person Information Name: GERRY VICTORIA Estefany/[facility] Age: 67 Years : 1955 Sex: Female Language: Albanian PCP: WARD ZUNIGA DO Marital Status: Visit [...] 09/27/2022 11:03:38 09/27/2022 11:03:38 ADDRESS: [address] [place] [id number] PHYS DOC NOTES: MEDICAL INFORMATION: Prescriptions Given: New Medications [facility] [id number], [address] [place], [place] [id number], [phone] cephalexin (Keflex 500 mg Cap) 1 Capsules [...] (Celebrate Multivi (more content not included)... Normal [facility] ED Note-Physicianon 09-28-19 ED Note-Physician Basic Information Time Seen: Bala SNOWDEN, Michelle WeberJack 09/26/2022 23:42 Chief Complaint pt to ED [...] She states she then went to the [facility] Urgent care clinic and she was [...] entirety with (more content not included)... Normal [facility] Comment on above: Result Comment: Elec [...] system (immune system). ? Have open cuts, frazeir, bites, or scrapes on the skin. ? [...] these instructions at home: Medicines ? Take okiz-tbs-vjtupjn and prescription medicines only as told by [...] Reviewed: 12/23/2021 Elsevier Patient Education ? 2022 [employer]. Normal [facility] ED Patient Summaryon 023 ED Patient Summary (Inserted Image. Zora ble to display) [place] [id number] Patient Discharge Instructions Person Information Name: GERRY VICTORIA Age: 67 Years Arrival Date: 09/26/2022 22:52:57 Discharge Diagnosis: 1:Cellulitis of leg; 2:CAD (coronary atherosclerotic disease); 3:RLS (restless legs syndrome); 4:Hypothyroid; 5:HLD (hyperlipidemia); 6:Depression; 7:On deep vein thrombosis (DVT) prophylaxis; Left against medical advice Primary Care Physician: WARD ZUNIGA DO Provider Information Primary Provider: Chintan Heller DO [facility] Cardiovascular:None The exam and treatment you received in the Emergency Department were for an urgent problem and are not intended as complete care. It is important that you follow up with a doctor, nurse practitioner, or physician?s assistant professor of archaeology for ongoing care. If your symptoms become worse or you do not improve as expected and you are unable to reach your usual health care provider, you should return to the Emergency Department. We are available 24 hours a day. LUCIAGERRY LUO Maryann has been given the following list of patient education materials, prescriptions and follow-up instructions: Follow-up Instructions: With: Address: When: WARD ZUNIGA [address] [facility] [address] [place], [place] [id number] In 3 days 09/30/2022 In the event that this physician does not participate in your insurance network, please consult with your insurance company to find a nearby participating provider. Patient Education Materials: Cellulitis, Adult, Exzo-yx-Uulo A MESSAGE TO ALL PATIENTS REGARDING OPIOIDS PRESCRIPTION OPIOIDS: WHAT YOU NEED TO KNOW Prescription opioids can be used to help relieve omeqfngp-le-cqkmeh pain and are often prescribed following a [...] you belie (more content not included)... Normal [facility] HEMATOLOGYOrdered By: SYSTEM SYSTEM on 09-27-2022 [...] 15.9 % High 10.9 - 14.2 % [facility] Hematocrit (Bld) [Volume fraction] 29.2 % Low 34.0 - 46.0 % [facility] Hemoglobin (Bld) [Mass/Vol] 9.6 g/dL Low 12.0 - 16.0 gm/dL [facility] MCH (RBC) [Entitic mass] 26.4 pg Low 27.0 - 34.0 pg [facility] MCHC (RBC) [Mass/Vol] 33.0 g/dL Normal 31.4 - 36.0 gm/dL [facility] MCV (RBC) [Entitic vol] 79.9 [...] 5.9 E9/L Normal 4.0 - 11.0 E9/L [facility] HemeAutoSS Hep Func Panelon 09-27-2022 Albumin [Mass/Vol] 3.8 g/dL Normal 3.3-5.0 [facility] Comment on above: Performed By: #### 2 072427, 12308099, 9973091, 6589607, 4562338, 80419465, 9311013, 6268025 ####[place] [address] [place] [address] Albumin/Globulin (S) [Mass conc ratio] 1.2 Normal 1.1-2.2 [facility] Comment on above: Performed By: #### 2 933680, 08656214, 8180545, 5291635, 5981743, 94796263, 6009575, 3544039 ####[place] [address] [place] [id number] ALP [Catalytic activity/Vol] 79 Int._Unit/L Normal 21-98 [facility] Comment on above: Performed By: #### 2 730644, 27757467, 9024600, 5510841, 7053738, 19693610, 5736824, 5994813 ####[place] [address] [place] [address] ALT No additional P-5'-P [Catalytic activity/Vol] 11 Int._Unit/L Normal 6-46 [facility] Comment on above: Performed By: #### 2 651506, 24898217, 1751096, 0893418, 9970770, 77038789, 6266826, 5254104 ####[place] [address] [place] [address] AST [Catalytic activity/Vol] 19 Int._Unit/L Normal 5-43 [facility] Comment on above: Performed By: #### 2 800326, 20439713, 3054625, 1652487, 8165666, 19919862, 2021883, 4954171 ####[place] [address] Bilirubin [Mass/Vol] 0.6 mg/dL Normal 0.0-1.1 [facility] Comment on above: Performed By: #### 2 821693, 17490893, 1767369, 0132958, 6337915, 27966700, 3905178, 2443708 ####[place] [address] [place] [address] Bilirubin.direct [Mass/Vol] 0.1 mg/dL Normal 0.1-0.4 [facility] Comment on above: Performed By: #### 2 731469, 51303736, 2109695, 2275168, 6709554, 56431121, 6384090, 5616627 ####[place] [address] Bilirubin.indirect [Mass or moles/Vol] 0.5 mg/dL Normal 0.1-0.9 [facility] Comment on above: Performed By: #### 2 499201, 46335032, 5081364, 4054971, 6284467, 53001757, 3184877, 5652760 ####[facility] [address] [place] [address] Globulin (S) [Mass/Vol] 3.2 g/dL Normal 1.4-4.0 [facility] Comment on above: Performed By: #### 2 054967, 39819445, 3102886, 7601984, 1127811, 58021876, 2412862, 9020007 ####[facility] [address] [place] [address] Protein [Mass/Vol] 7.0 g/dL Normal 6.0-7.8 [facility] Comment on above: Performed By: #### 2 [id number], [id number], 5716687, 9156852, 3723302, 65077309, 4375777, 2142699 ####[facility] [address] [place] [address] Lactic Acidon 09-27-2022 Lactate [Mass/Vol] 0.5 mmol/L Normal 0.5-2.2 [facility] Comment on above: Performed By: #### 2 795685, [id number], 6554337, 6978589, 5710116, 1955, 8096796, 9773406 #### [facility] [address] [place] [address] Sed Rate Automatedon 023 Sed Rate Automated 25 mm/hr Normal 0-34 [facility] Comment on above: Performed By: #### 2 871510, 11307877, 0548251, 0037457, 4432945, 39133999, 4545165, 2304352 #### [facility] [address] [place] [address] UA With Cult Reflexon 2022 Bilirubin Ql (U) Negative Normal Negative [facility] Comment on above: Performed By: #### 1 [id number] ####[facility] [address] [place] [address] Clarity (U) SL CLOUDY Invalid Interpretation Code [facility] Comment on above: Performed By: #### 1 [id number] ####[facility] [address] [place] [address] Color (U) YELLOW Normal Yellow [facility] Comment on above: Performed By: #### 1 [id number] ####[facility] [address] [place] [address] Epithelial cells.squamous LM.HPF (Urine sed) [#/Area] /[HPF] Normal 0-2 [facility] Comment on above: Performed By: #### 1 [id number] ####[facility] [address] [place] [address] Glucose Test strip (U) [Mass/Vol] Negative Normal Negative [facility] Comment on above: Performed By: #### 1 [id number] ####[facility] [address] [place] [address] Hemoglobin Ql (U) Negative Normal Negative [facility] Comment on above: Performed By: #### 1 [id number] ####[facility] [address] [place] [address] Ketones (U) [Mass/Vol] Negative Normal Negative [facility] Comment on above: Performed By: #### 1 [id number] ####[facility] [address] [place] [address] [place].plasma/[place] .RBC (Bld) [Mass ratio] 0-3 Normal 0-3 [facility] Comment on above: Performed By: #### 1 [id number] ####[facility] [address] [place] [address] Mucus Ql (Urine sed) TRACE Normal [facility] Comment on above: Performed By: #### 1 [id number] ####[facility] [address] [place] [address] Nitrite Ql (U) Negative Normal Negative [facility] Comment on above: Performed By: #### 1 [id number] ####[address] [address] pH (U) 6.0 [pH] Invalid Interpretation Code 5.0-9.0 [facility] Comment on above: Performed By: #### 1 [id number] ####[address] [address] Protein (U) [Mass/Vol] Negative Normal Negative [facility] Comment on above: Performed By: #### 1 7291368 ####[address] [address] Specific gravity (U) [Rel density] 1.010 Invalid Interpretation Code 1.005-1.03 0 [facility] Comment on above: Performed By: #### 1 [id number] ####[address] [address] Type of Urine collection method Clean Catch Normal [facility] Comment on above: Performed By: #### 1 [id number] ####[address] [address] Urobilinogen Qn (U) 0.2 {Olivia'U}/dL Normal 0.0-1.0 [facility] Comment on above: Performed By: #### 1 [id number] ####[address] [address] WBC Auto Ql (U) TRACE Abnormal Negative [facility] Comment on above: Performed By: #### 1 5346625 ####[address] [address] WBC LM.HPF (Urine sed) [#/Area] 0-5 Normal 0-5 [facility] Comment on above: Performed By: #### 1 [id number] ####[address] [address] URINALYSISOrdered By: Liz Bueno on 09-27-2022 Bilirubin [...] AM) Normal Negative [facility] UA Auto SS [place].plasma/[place] .RBC (Bld) [Mass ratio] 0-3 /HPF Normal [...] Desc Clean Catch (09/27/22 4:48 AM) Normal FT UA Auto SS Urobilinogen Qn (U) 0.0256969 {Olivia'U}/dL Normal 0.0 - 1.0 EU/dL [facility] [...] JANNETH Technologist: BRANDIN Technical Comments Radiation Dose: Kasilvia in mGy = na DAP = na Normal [facility] eGFRon 09-27-2022 GFR/1.73 sq M.predicted among non-blacks MDRD (S/P/Bld) [Vol rate/Area] 49 mL/min/1.73 m2 Low >=59 [facility] Comment on above: Order Comment: Order added by Discern Expert. Result Comment: Coordinator Of Library Services heidi kidney disease could be indicated at eGFR's of less than 60 mL/min/1.73m2. Kidney failure is indicated at less than 15 mL/min/1.73m2. Performed By: #### 2 831385, 74872548, 8415477, 3713568, 3163943, 17218124, 8031002, 3878731 ####[address] [place] [address] Pre-Certification Formon Pre-Certification Form PT SCHEDULED W/ D R.REED FOR LAP MERLYN ON 07/26/22 PARAMOUNT PRIMARY AND ACTIVE NPCR PER PARAMOUNT CODE ASSEMBLING MACHINE OPERATOR (83337) DX PASSES [facility] Normal [facility] Thyrotropin [Units/volume] i n Serum or PlasmaOrdered By: Ward Zuniga on 09-06-2022 TSH Qn 14.86 m[IU]/L 0.45-5.33 [facility] Thyroxine (T4) free [Mass/vo lume] in Serum or PlasmaOrdered By: Ward Zuniga on 09-06-2022 Free T4 [Mass/Vol] 0.30 ng/dL 0.61-1.12 [facility] Triiodothyronine (T3) Free [ Mass/volume] in Serum or PlasmaOrdered By: Ward Znuiga on 09-06-2022 Free T3 [Mass/Vol] 2.19 pg/mL 2.50-3.90 [facility] Coding Summary.on 08-02-2022 Coding Summary. CD:[id number] Ww+PGh lYWQ+OR7OATXhW14okLFkmP0jD 0NMTElOSywgQVBQTElOSyIgbmF fPU0tuWEfURJd IC8+PB1bBZGwWzsxaWVza1M0gA I5G46mfj5fPWtfeAP9DKLnLeUl rlgrn7lvdAk9JYbrUhffJwPl FYPklE90UFG7lY51Zn70gIKltU Fmu0gmiNj6LeWmESDlERM6xKyb WWetw2FcBVRnD12ubJBzt4E0 QRJosNgvhJOvOcRqjRG1rG8uII uydesmj7ciunnwGqv3oc41bWUl i1T0aQD8Q5WprnZ0EDZmkMEe CyqevJMSgA1cxqizt6mckknkIy FiRUSiBUu1DNt0PBKnpKzcIrFf EV64WUG1IFTceqCwI8JtEUJl qJwhSnO6r4R6Wn9RI8CFFnjwM9 VNTUFSWTwvdGQ+ZO61gm49V6Zc ZzvuDfz4DLIvIVB2cHI2bO0y OLXfMVvvs1J6lDG9Z6MrbiRifq 3hn2goZXGfDZqhT06uxDIpk2C3 CYUndHV6TGPtkBhbFoIwhP07 Oyc+OELlvDqzd6LwNzwkx4now5 xbvTt3LpijLVVzywNdbLrcRZC8 q5UwAp8mQKLhgQC7eVD8eZ4z MiHzNzH3HYkqA141OyQhyNKzCa myZ01hZ6IfyHN+FOLlLkr8QFJo mTzfHS3hJ9MjECMqfnbgvMPw kNhlJD3aKOPvxareBTLsxS0kCC WfF5v8YuGeGgY3OWasG2SjIAYb biaeRc59eX0tLqIwMpC2EIsg W4EipeX8ROBeqAIuIAioJLJ9B3 1wp8C7BJDhHUDaURF4lJX1kP4w bGlnbjogbGVmdDsgdmVydGlj HNloYHmvJ086BROwyQelLlByHC luZyBEYXRlOiAgMDUvMDkvMjAy MzwvdGQ+JNWhZCH0sHcqBPIa kWSjMAhgDk1cgVwbnJxxUJ5tQV HatvbwGHMloK8xSFUgdXXetUym EI5fZOVzdkicc349PvFqKBA9 IUZjfRHfR5VlpV3rLwWwKJMxVA HwF6KoeVOrZEhoT467FBxdBxH2 LJKwpfQeW6HdETVxaXctPeI0 a1F7Dd2Pp4UcpgtyO6RlfZShAk UpGuybCZf5D2BcLzzyaOZ+PC90 TGRfTQ50XLd6UWJ5vGefSBrx HQApD4XalR4eQsViMNIqPQWyYu c+PHRhYmxlIHdpZHRoPScxMDAl FmBgmNhnUY4bBh4mEJGhBZUl cZpikLQyIiRtz6vmAWUyGCymRL 1odDfmD2NxnAS0FKWmd5b1Hv19 P12uZ1YarYM+YYJplYA1kWT2 fQ5zYaAzYsQ1CExkY185SvGpkA CsDcnxw8ezp8cvwZe1NuW3SZVx nqQvhTmzWKV8h6RyLr19T69d IHdpZHRoPSIxNSUiIHZhbGlnbj 0kvL1cVy3+CLZgmIK3jRE5aB0j EgXpTzT5TBxlH789FnCyyEIj Imsan3txa1naqGa0VnPbFSGcwc DytYslOIS3w7HsVy12Z3HwuNpe t8WrVfm6ab38zDEcz3U2mAF7 R0KzXHRarmtwoWCnqOuoBZ7eCM XpjdihWFOkcP8gEJJhW6k7ZdWy ZkS4SWmsK5JoeoF3IMGfpDCn YOSpxWIHiJ4qyshvy7ypyrsrFy EeIPUiJYx7HAg7GHIraLdvUqGm SSJ9CzA2QMS5uKNguM4emEer dodloI4xGka+AES0vZEojJGFHY 1lOjwvdGQ+EDDuTAS0hGyiJWba IGJfsM4mEFIgL1a9EdHxIyH2 JVpbR1QukhC5CMWodSDbBMRaxB GHcC8qdkwsc0tomeozCmNkCAVp OCt3TJj0LNStpKcmUjZeAQI5 QyN0RWP4cOInzG4buEpppqnjvA 9wOyc+RjoqzHigRZU1UYd4I8Ui Ora6DIArsAhzCS0eaVDzTPwr Ui5tuOzpvSngDA1cYGLelpeuv8 86WqGiy5mrZGKpyQJeCXrwMVF5 F90wu7E7KHJcRQAaYCC7aWB6 sP6reCnmcsgdxFVhrLmejsDdbQ byBIgsTCcfA422LHXtsCnvQhWd YDd7L1ZyYew9YSMlfHedXN8a qLGyZHhuZb3hlXmnaAwkBC3zQG Msjkdas214BvVne8chHQWkfRFv MOudRJF2V11jh2X2UTOtDTNt BMF4lMG8hT1saKpdkwerwKRvlD okynUuwFogBRzuCSbfJ798IXGa fOdcAkHtwQc2O5YgHxu3GMDx bSlpNZ3zaTSgLUxcFr9ozHdgyV clQF3dBGQyosrex103TqCcw7up FXMfwCTtEGmvFVE4B22hs8A7 PQRfEZFuFXL6iQI5vA4gmKekwz ogbGVmdDsgdmVydGljYWwtYWxp M382YYZlzAonBfDqjCuiegZw OGaiVQo1C3FcPeecbCQ+PC90YW GqUZ39rXVfoVIak6nlwKq1WmDk ZETtHJI0kYcyDPtzh7IsONEr P60jqLRqn4W1MZPepGporSHiIv GqsDT4xS4jFGfnrzxfm9gatmrc Xrepb8htbt51zW22P52vAGkg KQMeDDAdGGOeIXYrwPcgwq5pxV 9wIi8+DXHfiQW2vSR7iS8lJNCs HkC7FGomV567ZiGbzKEmAzxt r8cyz8graBt0DeO3CPTqfmLelY nfYMA1z9UlWs06Q35jXYcgVHEa EZXeKLXyHCRbpHnetr3xtN0u Ii8+ZEEeoNI0zWR5zJ7vDoTyTt U8ZPbsC874NcDirJIdRxtrK58j P0NuoGB+LZQlLhy4AJNmeUco JA3rjNPyKZdiMc6tMGA9TlRcKc IeGQbcO9AsXDBbftkixohihBP2 CAExEERhgS51Mz8gtQjgKQWm ePHQpZ2gxgwli9osendvIwKrTA GoGAp8JNi1HFAccOjsYqPmVQW6 ToK5ITH1mOLauO9ecNdufgwy sW0jT4WmWIOvaazrEz54kO7pEg YoQfO8ORrhRvl+AEaTXK7YUXCN QUJGXxTZSQ47MO74xCNsv9O1 gQG9Z5YrEOSdsjmiwdzbbNJ9XZ AnRUQljT45dVUrRQniAt0on5L8 i492TORlRAQpxT26Qq7piIsh BBWiuGORpM5ceyxjg2xzbcbjNh FkGWVeFWx6SMv2KFRdoToaSyCm FEU8QgJ5IWH9tSNvpA9uhVpi utlvvM3rXdv+OQBhCxJmWBf4IC wvdGQ+UJImQMK5rIriUJzcEHGy yL0jMBDuU0s3MnYgNjE4ULmj X7LbUVCoumyxTp94zD7fMaXzVk C3OIaxP8TkpmJ5VNWbzBVdWZic NOW5N89ig0K4ZEHnMXXcPGX2 pBQ5kM8mtTfgcfepdNUbuRikrt IhuFwcKMjtEVxpY649RDMssRah PwQ7UDfbVJRdER41RM95jNFw v0U9eOE0O4CqVUJgnchmziajjE B4BVScQCRduS61rOBsVCotPz4p a2S8r651UVWnWORofL07Ty2i hYaiTTQifJEMtE8vldhbg1ilev kuBtWkWXZjFVn5HAf8DXWdpCap KuHoGYF9QwK4LWT4jTUctJ6m xXzffivwxX9sBdj+RmVtYWxlPC 98GF01yOZsj1V6aVU3Y4FoCTHz omzgssjstJP7OHAuHRNrbZ67 iREmENtrRo9mo7A8k085CJGyVL FjpC69Nk6pmZebJWRxvNBUwR9d iinub9lqwpchBzQzOREwWTs9 RUu8PBRojXppHoDtGKQ1DdC3RX G6pFJxtT7nnBypqwfjeE3qVwm+ RM1anYfzrH4xmK5XKA5vQPQd zFWHhNTeSLM2XX91SV64D3TpBd wvdGFibGU+PHRhYmxlIHdpZHRo ZWqqUIMaOdHimPigWK6fTx9p RJIiEWXpbTgrtFSmEpAav6opEL QbAXlzNI3cjIgqU5GhxVQ1CDEp z1t4Uc43H74dG7JrpEE+PGNv hEC2eWB1uP7lCgOfRxR7ABdzK3 49NtXvrIPuTktww2ncw2ucdXu6 DtAaCSWkmvGpfEqfPHC4l4Jl Mk10F24eDHzjYENwWFSpHCQhLB OukOungo2ysG4nPj6+PGNvbCB3 wVC7bI0bTxVaCjS3IRkwY622 LkYtyKCsMlxtK98cJ3KvyFP+PH RnAju4XGBnzYeaVH3csZRbKSoy Ua0pUCK7ByIiOlMvONsnS9Rd FZMpifscgdcuzFY3OVJyJBRifC 88Dw5ujXsyNr5nMPGqITQ8FNWj rJXiH4BkrC6rHhKiSDCeWHSo U9SqeSYyOWynN938FFowEqH5QC WtaaPtH4EtBFAdfJtoDcC0w5N0 Yn9DeQinlOWbHE6yVkYpUIk1 C6EpMvm9RZXgdJseAY2owSCuOI ruKd7vlTgiyRoeYG0tNJOrfayq z150QyWkf6xhJKEdvSZlGTeh SHN9Z24jq8Y7RQFbAQHgVUX4qS V9vG3kgMblayhtzBIeeFqatwBx sCucBCenDCuyX831MYThqRcn XhATNgr1D9DwGcm1DVRkyTapDV 3uoDEvNSmxTs5wtLvpcXrsXU8b FXXqcxfof693FwPhe8qrUVVs lJUbSYxvZLG3H66ze0A4SZLbGY SqXOW8eRH8oI0acBsndvqkaSLy xRydevXokXhhTDcnEKdtV062 TQBbmIqiXz2IEge5T8EjKas3ZY JhhHnmUT6cjSEuOUsxEn8xnWjk eBrwIA0vJIZjqfiqu015HgMb h6nrGZAaiCPkNEjoVPH2K96ug5 E7BGJtHRAwBTK9uCW7jS7ygUea bjogbGVmdDsgdmVydGljYWwt PYudR008ETHnmWryPzHxbPRsCw wvdGQ+IV48pn51S9VoJjynFgd7 EZWvOMX6dDT1kM4uXGVhACyr j8Q2eGV9 (more content not included)... Normal [facility] IntraOperative Documentson 0 07-29-2022 IntraOperative Documents [id number]#1.00CD:127 [facility] [place] Postoperative Documentson Postoperative Documents [id number]#1.00CD:127 [facility] [place] Main OR Intraoperative Recor don 07-28-2022 Main OR Intraoperative Record IntraOp Document Type FT Summary Primary Physician: Talon Mcbride DO Finalized Date/Time: 07/28/22 08:06:27 Pt. Name: GERRY VICTORIA/Sex: 1955 Female Med Rec #: [id number] Physician: Talon Mcbride DO Financial #: [id number] Pt. Type: A Room/Bed: [facility] Admit/Disch: 07/26/22 05:37:39 - 07/26/22 14:50:00 Institution: [...] Entry 2 Entry 3 Case Attendee Deppen ELEMENTARY ART TEACHER, Jeana Mcbride DO, Talon Theodore PA-C, Candis Barker Role Performed ELEMENTARY ART TEACHER Surgeon - Primary PA/STAVE PLANER TENDER Time In 07/26/22 08:22:00 07/26/22 08:22:00 [...] Belkys Andrade Ii, Sarah M Role Performed Tax Lawyer - Primary Staff - Other Scrub - Primary Time In 07/26/22 08:22:00 07/26/22 08:22:00 07/26/22 08:22:00 Time Out 07/26/22 11:45:00 07/26/22 11:45:00 07/26/22 11:45:00 Procedure CHOLECYSTECTOMY CHOLECYSTECTOMY CHOLECYSTECTOMY LAPAROSCOPIC W/ LAPAROSCOPIC W/ LAPAROSCOPIC W/ CHOLANGI(.) CHOLANGI(.) CHOLANGI(.) Comments ORIENTATION RENETTA PANIAGUA MUSIC PROFESSIONALS STUDENT, ALSO SCRUBBED IN Last Modified By: Karson RN, Umu Ty RN, Umu Ty RN, Umu Weber 07/26/22 11:54:21 07/26/22 11:54:21 07/26/22 11:54:21 Entry 7 Entry 8 Entry 9 Case Attendee Daphney RN, Ivet Newton RN, Jess Foley RT(R), Mamta Valles Role Performed Tax Lawyer - Relief Tax Lawyer - Relief Steamfitter Apprentice Time In 07/26/22 09:08:00 07/26/22 09:08:00 07/26/22 10:45:00 Time Out 07/26/22 09:31:00 07/26/22 09:31:00 07/26/22 11:45:00 Procedure CHOLECYSTECTOMY CHOLECYSTECTOMY CHOLECYSTECTOMY LAPAROSCOPIC W/ LAPAROSCOPIC W/ LAPAROSCOPIC W/ CHOLANGI(.) CHOLANGI(.) CHOLANGI(.) Comments RN break relief. RN break relief. Preceptor Orientation. Last Modified By: Umu Ty RN, RN, Umu Orozco RN 07/26/22 11:54:21 07/26/22 11:54:21 07/26/22 11:54:21 General Comments: SANGITA CAMILO, ALSO IN ATTENDANCE. JORDI NEALaircraft technician Protocols FT Pre-Care Text: Implements protective measures [...] Diagnosis C (more content not included)... Normal [facility] XR Cholangiogram in ORon XR Cholangiogram [...] in mGy = 17.37 DAP = na [facility] [place] Blood Bank Slipon 07-27-2022 Blood Bank Slip [id number]#1.00CD:127 [facility] [place] Consent for Anesthesiaon Consent for Anesthesia [id number]#1.00CD:127 [facility] [place] Discharge Instructionson Discharge Instructions [id number]#1.00CD:127 [facility] [place] IntraOperative Documentson 0 07-27-2022 IntraOperative Documents [id number]#1.00CD:127 Normal [facility] Preoperative Documentson Preoperative Documents [id number]#1.00CD:127 Normal [facility] ABO/Rhon 07-26-2022 ABO/Rh Positive Invalid Interpretation Code [facility] Comment on above: Performed By: #### 1 [id number] #### [facility] [address] [place] [address] ABO/Rh History Checkon 07-26 ABO/Rh History Check Verified Hx Blood Type Normal [facility] Comment on above: Performed By: #### 1 [id number] #### [facility] [address] [place] [address] ABSCon 07-26-2022 ABSC Gel Interp Negative Normal [facility] Comment on above: Performed By: #### 1 [id number] #### [facility] [id number] BLOOD BANKOrdered By: Dell Taylor on 07-26-2022 ABO/Rh Interp Positive Invalid Interpretation Code [facility] BB Subsection ABSC Gel Interp Negative (07/26/22 6:23 AM) Normal [facility] BB Subsection Blood Bank ID#on 07-26-2022 BBID# [id number] Invalid Interpretation Code [facility] Comment on above: Performed By: #### 1 [id number] #### [facility] [address] [place] [address] Consent for Procedure/Surger yon 07-26-2022 Consent for Procedure/Surgery [id number]#1.00CD:127 Normal [facility] Consent for Treatmenton Consent for Treatment [id number]#1.00CD:127 Normal [facility] Discharge Instructionson Discharge Instructions GERRY VICTORIA [...] MARYCARMEN Enrique Where: [facility] Comment on above: Result Comment: Elec tronically Signed By: Mili BACON, Robina Whitaker\Date and Time Signed: 07/26/22 13:15 EDT H&P Updateon 07-26-2022 H&P Update [id number]#1.00CD:127 Normal [facility] HEMATOLOGYOrdered By: Lucero Ramirez on 07-26-2022 Hematocrit (Bld) [Volume fraction] 31.8 % Low 34.0 - 46.0 % [facility] HemeAutoSS Hemoglobin (Bld) [Mass/Vol] 10.1 g/dL Low 12.0 - 16.0 gm/dL [facility] HemeAutoSS Hct & Hgbon 07-26-2022 Hematocrit (Bld) [Volume fraction] 31.8 % Low 34.0-46.0 [facility] Comment on above: Performed By: #### 1 [id number] #### [facility] [address] [place] [address] Hemoglobin (Bld) [Mass/Vol] 10.1 g/dL Low 12.0-16.0 [facility] Comment on above: Performed By: #### 1 [id number] #### [facility] [address] [place] [address] Main OR PACU I Recordon Main OR PACU I Record PACU Phase I Docum ent Type FT Summary Primary Physician: Talon Mcbride DO Finalized Date/Time: 07/26/22 12:58:56 Pt. Name: GERRY VICTORIA/Sex: 1955 Female Med Rec #: [id number] Physician: Talon Mcbride DO Financial #: [id number] Pt. Type: A Room/Bed: [facility]08/25 Admit/Disch: 07/26/22 05:37:39 - Institution: Case Times [...] By: Violette Castillo I 07/26/22 12:58 Normal [facility] Main OR PACU II Recordon Main OR PACU II Record PACU Phase II Doc ument Type FT Summary Primary Physician: Talon Mcbride DO Finalized Date/Time: 07/26/22 15:08:15 Pt. Name: GERRY VICTORIA Maryann ShawB./Sex: 1955 Female Med Rec #: [id number] Physician: Talon Mcbride DO Financial #: [id number] Pt. Type: Room/Bed: [place] [address] Admit/Disch: 07/26/22 05:37:39 - 07/26/22 14:50:00 Institution: [...] II Outcomes Met? Yes Last Modified By: Mili BACON, Robina Wolf 07/26/22 15:08:13 Post-Care Text: The patient demonstrates [...] Signed By: Robina Garces RN 07/26/22 15:08 [facility] [place] Main OR Preoperative Recordo n 07-26-2022 Main OR Preoperative Record PreOp Document Type FT Summary Primary Physician: Talon Mcbride DO Finalized Date/Time: 07/26/22 09:32:38 Pt. Name: GERRY VICTORIA Maryann Wild./Sex: 1955 Female Med Rec #: [id number] Physician: Talon Mcbride DO Financial #: [id number] Pt. Type: A Room/Bed: [facility]08/25 Admit/Disch: 07/26/22 05:37:39 - Institution: Case Times [...] By: Umu Ty RN 07/26/22 09:32 Normal [facility] Monitor Recordon 07-26-2022 Monitor Record [id number]#1.00CD:127 Normal [facility] Monitor Record [id number]#1.00CD:127 [facility] [place] Operative Reporton 3 Operative Report Indication [...] Surgeon(s) Talon Mcbride DO (Surgeon - Primary) Technical Coordinator Candis Theodore Anesthesia General Connie Winston DO (Gum Scoring Machine Operator) Deppen Jeana MENDES (Other) Estimated Blood Loss [...] defect was closed with interrupted 0 Vicryl jlbqfm-lb-bijhz sutures as well as the existing 0 Vicryl stay sutures. The skin incisions were closed with subcuticular 4-0 Monocryl suture. The skin incisions were then dressed with Dermabond. The prior percutaneous cholecystostomy site was covered with a 2 x 2 and tape. Patient was extubated and taken to PACU in stable condition. Normal [facility] Comment on above: Result Comment: Elec [...] these instructions at home: Medicines ? Take crae-byo-ooqiaqc and prescription medicines only as told by [...] cannot use soap and water, use hand comedian. ? Change your bandage. ? Leave stitches [...] provider. Document Revised: 09/14/2021 Document Reviewed: 09/14/2021 [employer] Patient Education ? 2022 [employer]. Cholelithiasis Cholelithiasis is a disease in which [...] types o (more content not included)... Normal [facility] Progress Note-Physicianon Progress Note-Physician Patient: GERRY [...] day(s), # 12 tab(s), Refills(s) 0, Pharmacy: [facility] [id number], 154, cm, 07/18/22 14:13:00 EDT, Height/Length Dosing, 74.6, kg, 07/18/22 14:13:00 EDT, Weight Dosing oxybutynin 10 mg ER Tab: 10 mg = 1 tab(s), Oral, Daily, # 90 tab(s), Refills(s) 3, Pharmacy: [facility] [id number], 154, cm, 11/30/21 13:27:00 EDT, Height/Length Dosing, [...] All Problems Acid reflux / SNOMED CT 4363541324 / Confirmed Anxiety / SNOMED CT 4452988920 / Confirmed Arthritis / SNOMED CT 4722905 / Confirmed Atrial fibrillation / SNOMED CT 44379891 / Confirmed Chronic fatigue syndrome / SNOMED CT 10488415 / Confirmed Constipation / SNOMED CT 269815593 / Confirmed Degenerative disc disease, lumbar / SNOMED CT 64441192 / Confirmed Depre (more content not included)... Normal [facility] Comment on above: Result Comment: Elec [...] Daily, # 90 tab(s), Refills(s) 3, Pharmacy: [facility] [id number], 154, cm, 11/30/21 13:27:00 EDT, Height/Length Dosing, [...] All Problems Acid reflux / SNOMED CT 7890714810 / Confirmed Anxiety / SNOMED CT 9292671090 / Confirmed Arthritis / SNOMED CT 2128017 / Confirmed Atrial fibrillation / SNOMED CT 27889170 / Confirmed Chronic fatigue syndrome / SNOMED CT 38430882 / Confirmed Constipation / SNOMED CT 434942327 / Confirmed Degenerative disc disease, lumbar / SNOMED CT 48416650 / Confirmed Depression / SNOMED CT 98621365 / Confirmed Fibromyalgia / SNOMED CT 875553802 / Confirmed Herpes / SNOMED CT 389489550 / Confirmed History of irregular heartbeat / SNOMED CT 0666012998 / Confirmed (more content not included)... Normal [facility] Comment on above: Result Comment: Elec [...] Daily, # 90 tab(s), Refills(s) 3, Pharmacy: [facility] [id number], 154, cm, 11/30/21 13:27:00 EDT, Height/Length Dosing, [...] All Problems Acid reflux / SNOMED CT 0166391330 / Confirmed Anxiety / SNOMED CT 0934691634 / Confirmed Arthritis / SNOMED CT 4535910 / Confirmed Atrial fibrillation / SNOMED CT 03943761 / Confirmed Chronic fatigue syndrome / SNOMED CT 73646563 / Confirmed Constipation / SNOMED CT 246666700 / Confirmed Degenerative disc disease, lumbar / SNOMED CT 81780622 / Confirmed Depression / SNOMED CT 47576393 / Confirmed Fibromyalgia / SNOMED CT 232879453 / Confirmed Herpes / SNOMED CT 808565735 / Confirmed History of irregular heartbeat / SNOMED CT 8820799884 / Confirmed (more content not included)... Normal [facility] Comment on above: Result Comment: Elec tronically Signed By: Connie Winston DO\.br\Date and Time Signed: 07/26/22 07:19 EDT Coding Summary.on 07-21-2022 Coding Summary. CD:[id number] Ww+PGh lYWQ+TE0COECtG79qxDNbuH4hD 0NMTElOSywgQVBQTElOSyIgbmF lML7ghDArWRVo IC8+EH7xDXMgYtuaqWFyg1S1mD Q9A50tra3jBHrcbCH1WXZkDtRl omlam3idsJx0DVxrGhuwVdMi EIZqxB58WXB1fA86Yn09rNWtoK Kpt3orpKb5KqVdTATmDNS6mUkp LLvfp0TbGGSrG25sqRQkt9Z1 WLOttCswvNKiFiYmlBN5wK6xHM imfldio9mhhibqSao0cq52nRJk m6A9nPH4P8PrhxL1EXWavBCp PgyxbGZIdJ5rpnjas9ajzrkyVz XvQAXpJBl9ERg9GNDlkHuhIwXv XX20DRS7ZRFoasXvK9MnGPJo oSxvMoK0e6L2Ve7ML5ORGekfN1 VNTUFSWTwvdGQ+IQ93dm09F6Bw DkswZnp2LBEqHCV6qLH8iJ4s CXVhYBscq9N8dMR6T7LrybHkxu 5nl1qkXGCtDWtiJ58ddUGpj2O3 EDMrvLW7ZJHevNylTgKjsH29 Oyc+LNOahKsjn9LsMwxut0tra1 ukxOu2KnxfLDSxtqZkzXfbKOR7 p3XcOh3aPIHsiVD1xKF5iX2p QmUqLjI3ZQaeP997RaNzbTRwBl keA26fR6RrmVY+WETjQzk5PJZe wAzgRP3nI6NxANWlmmevjFFf eXbfGV1sUBPadxfrJLLrkP6hJO NcJ3h7TxNpRbF3FGflD5GcTJOk bbmzWj99yO7kNwHbGlI0EMwm L1TdwfW8ALYqkVFvODezDDH0T8 1vy8S8IFEsBCTwGOK8wID2tK0c bGlnbjogbGVmdDsgdmVydGlj ZPbkYDzcN575KWXywBiiHjUcPW luZyBEYXRlOiAgMDQvMjcvMjAy MzwvdGQ+SBWlATF1yWlnEMOp tOPeGVfvEj3isJklmGooPV6sBH NfxjjeQZZauL6zDAUlhAEpzVqy CW7yHUXpzlapz799RtNjPIU7 QACnqSIdS4CrjF7jXyUdZZHnFN RpJ5LowERzVOeeS448IXxgCmO9 LUJwtdBuZ2DzRMXduFumPmS9 k0W6Sb7Uv6RpiawvR5XdbEHiVu QmUdqiSAz5F5CmGubtrXM+PC90 YFYyDV40SKe6RGI7zNjaRFsr ETNuH3KfnH6mDyFgZNBkDKXfLy c+PHRhYmxlIHdpZHRoPScxMDAl EsPofXmwON8uUb8rGOUxBKYl wWrcxPEmBeNsi3qvDMTeTQqnEQ 7mdOydB7NrgUH0HVRfd8g5Yh89 V20lU3CmkUT+OLFsmRB8gOL2 oI5gZuOtDlW5JIoyT217XgIwxE YtBfvxy4vgw6tfhFm0DhV4DAVb udHzhAfyUIY3n3NlTq30E35f IHdpZHRoPSIxNSUiIHZhbGlnbj 9cbH8pZx5+GIWdcEA9cSM9uZ6c ShUiIyX0XVcjK708KgEklXDc Nzifw0wvv0jesIi6PxWyUJCcwf AdbUenDRD5y6MaLc65H0RgxXsp s5KuZtm2yc58eORhr5F8xJU4 W0PkDWEkwqqirXGcaGghPW3pYN JmhfxaXJKvvV0oNFZnU2e0DqTt SaW1IDfqI0PsyuN2SBDbzULj RNDyaMJCaA3bigcbk2pddpkjVt BqZNEvBPi8MId2EUZbhEvbHaNe YZF2IcX8VZJ8tISwnG4mtQdy xffpsO8yStm+RKC1xTFklJDGKI 1lOjwvdGQ+VVDzWQV5nQipQQtl YXPnuQ4iTHQcP0d0XqVaOrH6 ZHabC6ZsyfC6KVJmmPUySJXlaH USbK6hnmush7jlwnikReJzPTPf ICp4NKv0BHJkwByeWnJiOEE0 LfG1JTT1tRTjhN1xoAjhgoachC 9wOyc+NjfbzIrnJAK7MHb0C2Cb Mhh2JNAfsXzrTC2sjZYtPHvs Te2ynIsgaMlnCK9lBTHhosdcr7 24KsHmn2dbBXLmrSNfHIhsLAI0 E46mz4O1ONJcQQSyOUB3oSY3 kB3npFctwrzihMRxaZioiwKdsG oaCRezWTppV653ILCxmAffDcEs PTu5K0CdGak1AMFbuZzzMH2w kACrKWsyQi4fyIkugTceXK0qQD Qdxlert727TgJqh1twISFjkZZe ECwjQMM1R83wr1H7KIWwXWLv KLK4pQE7oS6wpYqzhoapiOYfyP sweaIxtUanTAarGFqfF415CPCt fTmaHpLrbOg2J8IzKou2BGFe qDmvQO5rsSHxSSrqSp3eaEoxjC dzNP5xNETzaylzj472NvQst3kk JGLnhGFnKMeqDAZ4C24yt9P6 HQUiHJCtTNX3jTK9pA1ipVukox ogbGVmdDsgdmVydGljYWwtYWxp P875AGEbtAboMtOpfXrdgcRf JWesBYm6G4FeWpoirEB+PC90YW ItXX80iRWfbJWes2mafOi6SdLj ERVzSMG7wFhsZCvnm4DhMPLu L14ztIDcg4O3SMDabWovdBUnJx RqzKS6qU9kWDdulnghy7rjlsbu Kgkkn2qsoq47cL04B81iPKfb JWLnQRXtTAWeFPQhdCcvbh2onZ 9wIi8+BYNwtHR0sPK1uD7cDHMs VrP1PQatY250ZkFyiZQgCchq n9dkm6ybeXf0BhQ5KCHznnIgnZ ftYLC0a9VvEh41T59sWBpkBOUl AOMnAJLsANZliOjcqq7weU7r Ii8+DPGknPL8kCL7cS6cNjFkNz T6ZAmuP249DnKqpKByXgiwG52n B7GcaES+TBOuRgy1WYQodMpk TR3odUKsHLvqEd4yWBX8DwAhDi PtLBzdX6YzPONhsvcsedlznZA9 ZLVhKYYnzM71Ld8sdWywQRNz wWKEbJ2yizcsn3ejozvvTeHcCY FbKKd5EEs1ZGHhnButDzGfHJI7 LgM1KXV1oNRgrK9niRjsocbl kZ3rZ1CnGKQzqufaEg83tW8qQd TkMsQ1QLpkLfu+HVcCLH0KCSEG XQNYHoLEYO01KK22aUOol0J3 hQC7G1PnVBFpkukmghfngZQ7DK BvHDWycV64lJQzCQcuVm2hk3P8 p543YDSyPAWnnB18Vg0tmBtl EMQqoNSCdZ3wuaixg0hmljjtVj EhDKNkSEw8NSs2YJUoeFkyGhEl UFS9KvH5JBI1mFOiiP1aaVyc tejdsP4aQrz+CISfSbYyULj6SH wvdGQ+PMSbAHP2gTgtGAxeIIEe dH8eDSWwM2v5KiBdYqA0FFjw L7WvEJDdawnwHg63tE2pAdItAl D9GLjxN5OuemF9ZOOfuMXkLZrn YAF2L08hr3J6GSJiXZGgUSN0 eFT9vN1wlBscfvbsgNTqkUjwxh JhaTotJXybHLyqC970WNVfkTbk YpB7OImuCRXbTT27ER46uIRn w5P1qUK9A2IlFCSeqgajmzcduG F4GOQjPIFngY70zTEuHCslBj2n h3N1w955IBEdAZJoaZ23Gf4i fSyiQZHndCSUkY6yqoirp2gnie owXhVwJWGnLAw8RBk7XHThrMqr YyUmUHP6TdJ7AAF4rSBttQ3q wBhuvbuzvP6sCdu+RmVtYWxlPC 64HS51lHZdb7M4tTQ7U2BpFLUd vwcqvfgpiNU9LZMuDYSdbL58 uUZtVVkpEb2az2J4n001NBPbSM DjvU53Xd8xbGyxWFQulAXPjJ8t sngmt8kcorsrXiRwTPUmRVj7 ELf6XCLoaBzmCmYaMNP4LcA8VC H6nNLxcZ9zxUwcqopxiM3cHai+ U6O3zYH3rOUjoSvamWV+PC90 yz91P9BhOxloBsy3FYWmOMM4eO I6wL7nXFCiBMwdo8N9rPQ4Z4Af opBnpz6ct6otURNyYOypE11t yMPfb0E8JTAjlZA5TTZibAbrOi EctO25Jbq+LIBryEqyx8DfZowz c5jbx1zxlGb3RaKlCYBpklSa dCrfJFH5u0SiKy10R30xLFmhCS IsOAQiVRCvDAFqaVldtv7baO8n Ii8+MJDggUB5mWE5uI3gDdRs AjB1ANvcR648WvTlaOYuCeaxn8 fzd5xtmXa7WgZiGEQbhtXnhZrs PZB5k5KhUm16O6NhjXgqg1Ke Jsi7tx68fJFty0K1uCW9C7TkQD GbbvbxjQXbsHdqQG5sNLOlhhzh XUGhaU2iOTMzL4g7ZhLhXrT6 EXenI3XlolV0KZFeyGSpNYQolW RXlV0sjwtlj6alnrufOqPlISTj ZUk9EDv7JZIwtGzkJwAyTXT8 PbI3IJJ8tWQmcT8ieIjlqomlgZ 9wOyc+XZf2v1wsnWNtOJ9hzFY8 EV19RJ96tCGzj1N1iIG2I0Yl VGVtpesspegtkLN8PAYiNGAniI 77Zy2bdWkdBc1yBCQnCHX4LGHk wRQeJ9KtaN9oOhBqISLlAMTl G5AfcBPvJFopG289MLylWqI0CH SxvyEoW2BcPDLrwOhkRyF3e4B6 Ap7VHD05ZW00OM43gYIdk0Y1 xKS3P6AnYZOuonozwqybsGC0BV OqYOFxjN20Mj7foUmbKb3dLVVv UOB6DTTvsMXaJ7XjbL2zDgOy DUArIGGcW4ZvwNWgLXgaN324UJ ooVwS2HUStnvChF5SrFWHfyDxe FhH0e6G1Al9RAk64ER91CS30 dCYzn7P5sDC8I1RiQVQtbqsxnn nvcGG9CWYdGGRifB04Vc8fsRsm Dd4hSUHcJCC0BBLgpQFzX4Td gO8bPtTpAJVnZYSdX0MviDIxHS elX134DDshOiZ3FZYxeyKkG5Ru WQDtfBbrFsC3w6L1Ts5OLZmw gyv9F0MuCarlqKU+WF38EJDeTL 80hANlvMHwo0hecUo1LnJfYWZy IHD4oHrqPVzjw6NtSIXcB56y yDNds4R5 (more content not included)... Normal [facility] BUNon 07-18-2022 Urea nitrogen [Mass/Vol] 10 mg/dL Normal - [facility] Comment on above: Performed By: #### 2 971022, 5878100, 8024532, 7418568, 4548102, 16567567 ####[facility] [address] [place] [address] CBC w/Indiceson 07-18-2022 Erythrocyte distribution width (RBC) [Ratio] 16.6 % High 10.9-14.2 [facility] Comment on above: Performed By: #### 2 800589, 6443420, 6055644, 6986525, 0522974, 14659413 ####[facility] [address] [place] [address] Hematocrit (Bld) [Volume fraction] 29.8 % Low 34.0-46.0 [facility] Comment on above: Performed By: #### 2 250253, 1710728, 4637102, 9742861, 2578909, 05036871 ####[facility] [address] [place] [address] Hemoglobin (Bld) [Mass/Vol] 9.5 g/dL Low 12.0-16.0 [facility] Comment on above: Performed By: #### 2 436170, 6303914, 1184768, 8035850, 3786738, 23696908 ####[facility] [address] [place] [address] MCH (RBC) [Entitic mass] 26.1 pg Low 27.0-34.0 [facility] Comment on above: Performed By: #### 2 474056, 0952608, 5729574, 4327843, 7902708, 89431601 ####[address] [address] MCHC (RBC) [Mass/Vol] 31.9 g/dL Normal 31.4-36.0 [facility] Comment on above: Performed By: #### 2 827275, 7277022, 6216022, 9621665, 2045927, 92025889 ####[address] [place] [address] MCV (RBC) [Entitic vol] 81.9 fL Normal 80.0-100.0 [facility] Comment on above: Performed By: #### 2 456324, 9353197, 9457978, 9186538, 8580168, 39482690 ####[facility] [address] [place] [address] Platelet mean volume (Bld) [Entitic vol] 7.1 fL Normal 6.4-10.8 [facility] Comment on above: Performed By: #### 2 294993, 3087195, 0596369, 5104252, 9726779, 51406208 ####[facility] [address] [place] [address] Platelets (Bld) [#/Vol] 249.0 E9/L Normal 150.0-500. 0 [facility] Comment on above: Performed By: #### 2 967928, 1343814, 6547407, 3335040, 1836569, 48693204 ####[facility] [address] [place] [address] RBC (Bld) [#/Vol] 3.6 E12/L Low 4.3-5.9 [facility] Comment on above: Performed By: #### 2 331830, 9147931, 9919798, 3721410, 7630662, 09908299 ####[facility] [address] [place] [address] WBC corrected for nucl RBC Auto (Bld) [#/Vol] 5.0 E9/L Normal 4.0-11.0 [facility] Comment on above: Performed By: #### 2 570761, 1271111, 0541326, 5191373, 1159960, 99641495 ####[facility] [address] [place] [address] CHEMISTRYOrdered By: SYSTEM SYSTEM on 07-18-2022 Anion [...] rate/Area] mL/min/1.73 m2 Normal >=59mL/min /1.73 m2 [facility] Chem S GFR/1.73 sq M.predicted among non-blacks MDRD (S/P/Bld) [Vol rate/Area] mL/min/1.73 m2 Normal >=59mL/min /1.73 m2 [facility] Chem S Glucose [Mass/Vol] 93 mg/dL Normal 55 - 199 mg/dL [facility] Remisol Potassium [Moles/Vol] 3.7 mmol/L Normal 3.5 - 5.3 mmol/L [facility] Remisol Sodium [Moles/Vol] 136 mmol/L Normal 135 - 145 mmol/L [facility] Remisol Urea nitrogen [Mass/Vol] 10 mg/dL Normal 5 - 21 mg/dL [facility] Remisol Consent for Treatmenton 06-26 Consent for Treatment [id number] Normal [facility] Creatinineon 07-18-2022 Creatinine [Mass/Vol] 0.8 mg/dL Normal 0.5-1.3 [facility] Comment on above: Performed By: #### 2 605025, 4086417, 5954589, 5770965, 0071605, 38239927 ####[facility] [address] [place] [address] Glucoseon 07-18-2022 Glucose [Mass/Vol] 93 mg/dL Normal 55-199 [facility] Comment on above: Performed By: #### 2 247757, 4658387, 2758748, 1461879, 0067753, 26237583 ####[facility] [address] [place] [address] HEMATOLOGYOrdered By: Helen Chowdhury on 07-18-2022 Erythrocyte distribution width (RBC) [Ratio] 16.6 % High 10.9 - 14.2 % [facility] HemeAutoSS Hematocrit (Bld) [Volume fraction] 29.8 % Low 34.0 - 46.0 % [facility] HemeAutoSS Hemoglobin (Bld) [Mass/Vol] 9.5 g/dL Low 12.0 - 16.0 gm/dL FT HemeAutoSS MCH (RBC) [Entitic mass] 26.1 pg Low 27.0 - 34.0 pg FT [facility] MCHC (RBC) [Mass/Vol] 31.9 g/dL Normal 31.4 - 36.0 gm/dL [facility] MCV (RBC) [Entitic vol] 81.9 fL Normal 80.0 - 100.0 fL [facility] Platelet mean volume (Bld) [Entitic vol] 7.1 fL Normal 6.4 - 10.8 fL [facility] Platelets (Bld) [#/Vol] 249.0 E9/L Normal 150.0 - 500.0 E9/L [facility] RBC (Bld) [#/Vol] 3.6 E12/L Low 4.3 - 5.9 E12/L FT [facility] WBC corrected for nucl RBC Auto (Bld) [#/Vol] 5.0 E9/L Normal 4.0 - 11.0 E9/L [facility] HemeAutoSS Lyteson 07-18-2022 Anion gap [Moles/Vol] 9 mmol/L Normal 6-16 [facility] Comment on above: Performed By: #### 2 866863, 7809985, 9596962, 8085800, 8437053, 37493470 ####[facility] [address] [place] [address] Chloride [Moles/Vol] 101 mmol/L Normal 101-111 [facility] Comment on above: Performed By: #### 2 523500, 4558455, 6402404, 6999483, 3276017, 26190129 ####[facility] [address] [place] [address] CO2 [Moles/Vol] 30 mmol/L Normal 21-31 [facility] Comment on above: Performed By: #### 2 593080, 2379586, 2576692, 5746663, 0587723, 40865667 ####[facility] [address] [place] [address] Potassium [Moles/Vol] 3.7 mmol/L Normal 3.5-5.3 [facility] Comment on above: Performed By: #### 2 373582, 2750944, 1897608, 2237255, 4907177, 98017394 ####[facility] [address] [place] [address] Sodium [Moles/Vol] 136 mmol/L Normal 135-145 [facility] Comment on above: Performed By: #### 2 798039, 2925195, 7263913, 9541900, 6315883, 53138973 ####[facility] [address] [place] [address] XR Chest 2 Viewson 3 XR Chest [...] Talon Tyson M.D. Transcribed by: JANNETH Technologist: CC Technical Comments Radiation Dose: Ka,r in mGy = na DAP = na Normal [facility] eGFRon 07-18-2022 GFR/1.73 sq M.predicted among blacks MDRD (S/P/Bld) [Vol rate/Area] mL/min/{1.73_m2} Normal >=59 [facility] Comment on above: Order Comment: Order added by Discern Expert. Result Comment: eGFR is race adjusted. AA=. Performed By: #### 2 664299, 7416675, 1654343, 6081262, 8694881, 16487160 ####[facility] [address] [place] [address] GFR/1.73 sq M.predicted among non-blacks MDRD (S/P/Bld) [Vol rate/Area] mL/min/{1.73_m2} Normal >=59 [facility] Comment on above: Order Comment: Order added by Discern Expert. Result Comment: Coordinator Of Library Services heidi kidney disease could be indicated at eGFR's of less than 60 mL/min/1.73m2. Kidney failure is indicated at less than 15 mL/min/1.73m2. Performed By: #### 2 173384, 1882508, 3766387, 5453761, 4077652, 87999534 ####[facility] [address] [place] [address] Telephone Encounteron 2022 [employer] Authentication Interface Message Text Patient called regarding a rash near her drain that is right by her breast. Gaudencio is triaging Ms. Victoria, Gaudencio has suggest for patient to go to Urgent care and or call her primary care doctor. Appt is Monday07/13/2022. Normal [facility] Telephone Encounteron 2022 [employer] Repaire[employer]ging Authentication Interface Message Text Situation: Pt called states she is unsure how to flush gall bladder tube since it was changed yesterday. Background: 07/05/22 Procedure: Cholecystogram with catheter exchange Assessment: See triage Recommendation: Contacted IR ammonia worker, Dr Hollis advised for pt to contact [...] No Protocols used: Post-Op Incision Symptoms and Cubkrqgto-P-ZH Normal [facility] [employer] Authentication Interface Message Text Sindy Ratliff Patient: Gerry Victoria [phone] Ms. Victoria has an appt grace/ on 07/13/2022 at 2:45 pm. Pt complaining about severe pain last night, when she moved, it was an ache. She did not tell me where the pain was coming from, when I asked her. She stated that today she feels better, but she was concerned about the pain she experienced last night 07/05/2022. Normal [facility] RF Biliary ducts Views W con [...] successful exchange of drainage catheter. MACRO: None [facility] Radiology Study observation (narrative) [facility] Telephone Encounteron 2022 Die Repaire[employer] Authentication Interface Message Text Patient returned clinic call. Informed of message per notes below. Patient verbalized understanding and voiced no further questions. Normal [facility] [employer] Authentication Interface Message Text would like Ms. [...] the appt date and time. Normal [facility] Office Visit (Cardiology)on 06-30-2022 Follow-up visit [...] mg as directed otc Retrieve echo from [facility] Follow up in 3 months The provider reviewed the following test(s) and result(s) with the patient: ECG Chief Complaint GERRY VICTORIA is being seen for a consultation for atrial flutter and palpitations. F/u heart cath done in [facility]. History of Present Illness Patient is here for cardiovascular evaluation following recent hospitalization for what appeared to be acute cholecystitis. Records were retrieved and reviewed. Patient presented to [facility] with symptoms of abdominal pain and was diagnosed with what appeared to be gallbladder disease and peritonitis. She was transferred to [facility] where she underwent work-up. Apparently a gallbladder [...] The patient to keep her appointment with [facility] surgery for upcoming procedure of cholecystectomy and gallbladder drainage removal 5. I advised the patient she can use some [id number] Claritin to address her what appeared to [...] 1 CA (more content not included)... Normal [facility] Tobacco Screening.on 023 Adult depression screening assessment No [facility] k [address] DO Work Phone: Fall risk assessment a) No falls within the last year [facility] k 600 DO Work Phone: Tobacco use status [facility] b) No [facility] k [address] DO Work Phone: Telephone Encounteron 2022 Die Repairer [employer]ging Authentication Interface Message Text Pt called c/o sx of poor leg circulation,and Gaudencio spoke to her to triage the patient. Normal [facility] Addendum Noteon 06-18-2022 [employer] Authentication Interface Message Text Addended by: NIKITA HEIN on: 06/18/2022 03:47 PM Modules accepted: Orders, Level of Service Normal [facility] Telephone Encounteron 2022 Die Repaire[employer]ging Authentication Interface Message Text Sophy transferred phone call to me, when the patient and I started talk I realized it was the patient I had Sophy working on since Dr. Hein seen her in clinic on [facility]. Sophy said she spoke to patient yesterday, so I just told her what Sophy told me that Dr. Hein will handle the Rx to have the scan done out where she lives and that Sophy will get it to her in the mail by Monday Normal [facility] Telephone Encounteron 2022 Die Repairer [employer]ging Authentication Interface Message Text Sindy Morales, Patient: Gerry Victoria [phone] Ms. Victoria had a visit with Dr. Conley on Monday06/15/2022, seen by Dr. Hein in yesterday's clinic. Questions: Ultrasound order was placed for Ms. Victoria, do she have to come her to [facility] to have the ultrasound, or can she have the ultrasound done in [place]? (there is not a [facility] in [place]) Medication refill of Ropinirole 2mg 1-tab QD was not received by her pharmacy, can you call in the prescription to my pharmacy at ([facility] ) [phone]?. I am waiting for Carmen, or and or Dr. Conley to respond. Sophy Knowles was told that Dr. Hein was out of town and that she will receive the prescription in the mail. I will call the patient to find out what hospitals she will be going to in [place] [phone] fax:[phone] Gaudencio spoke to her about the prescription and to contact her pharmacy about the ropinirole 2 mg to [facility]. Addendum: IR procedure, Gaudencio will follow-up with [facility] to see if they can do the IR procedure, we will submit or fax orders at that time. Normal [facility] CBC panel Auto (Bld)on 06-15 Erythrocyte [...] (RBC) [Ratio] 15.0 % High 11.5-14.5 [facility] Comment on above: Performed By: #### 8 8208 #### NURSING GLUCOSE PROGRAM [address] [place] [address], [address] Hematocrit (Bld) [Volume fraction] 26.4 % Low 36.0-46.0 [facility] Comment on above: Performed By: #### 8 2948 #### NURSING GLUCOSE PROGRAM [address] [place], [address] Hemoglobin (Bld) [Mass/Vol] 9.0 g/dL Low 12.0-15.0 [facility] Comment on above: Performed By: #### 8 2948 #### NURSING GLUCOSE PROGRAM [address] [place] [address], [address] MCH (RBC) [Entitic mass] 27.6 pg Normal 26.0-34.0 [facility] Comment on above: Performed By: #### 8 2948 #### NURSING GLUCOSE PROGRAM [address] [place] [address], [address] MCHC (RBC) [Mass/Vol] 34.1 g/dL Normal 32.0-35.9 [facility] Comment on above: Performed By: #### 8 2948 #### NURSING GLUCOSE PROGRAM [address] [place] [address], [address] MCV (RBC) [Entitic vol] 81 fL Normal 80-100 [facility] Comment on above: Performed By: #### 8 2948 #### NURSING GLUCOSE PROGRAM [address] [place] [address], [address] Platelet mean volume (Bld) [Entitic vol] 7.8 fL Normal 7.5-11.2 [facility] Comment on above: Performed By: #### 8 2948 #### NURSING GLUCOSE PROGRAM [address] [place] [address], [address] Platelets (Bld) [#/Vol] 262 10*3/uL Normal 150-400 [facility] Comment on above: Performed By: #### 8 2948 #### NURSING GLUCOSE PROGRAM [address] [place], [address] RBC (Bld) [#/Vol] 3.26 10*6/uL Low 4.00-5.20 [facility] Comment on above: Performed By: #### 8 2948 #### NURSING GLUCOSE PROGRAM [address] [place], [address] WBC (Bld) [#/Vol] 6.2 10*3/uL Normal 4.5-11.5 [facility] Comment on above: Performed By: #### 8 2948 #### NURSING GLUCOSE PROGRAM [address] [place], [address] PROTHROMBIN TIME AND INRon 0 06-15-2022 INR Coag (PPP) [Relative time] 1.08 {INR} Normal 0.90-1.10 [facility] Comment on above: Performed By: #### 8 2948 #### NURSING GLUCOSE PROGRAM [address] [place], [address] PT Coag (PPP) [Time] 12.2 s Normal 9.7-12.9 [facility] Comment on above: Performed By: #### 8 2948 #### NURSING GLUCOSE PROGRAM [address] [place], [address] INR Coag (PPP) [Relative time] 1.08 {INR} 0.90 - 1.10 [facility] Interpretation and review of laboratory results Normal [facility] PT Coag (PPP) [Time] 12.2 s [facility] Telephone Encounteron 2022 Die Repairer Forging Authentication Interface Message Text Situation: pt is [...] Not assessed Protocols used: Post-Op Symptoms and Xdqtaxoko-K-BC, Breathing Ucitoyurke-G-ZL Normal [facility] BASIC METABOLIC PANELon 03-0 Anion gap [Moles/Vol] 15 mmol/L Normal 10-20 [facility] Comment on above: Performed By: #### C H8, HEPATIC #### [facility] [address] [place], [address] Calcium [Mass/Vol] 8.4 mg/dL Normal 8.4-10.4 [facility] Comment on above: Performed By: #### C H8, HEPATIC #### [facility] [address] [place], [address] Chloride [Moles/Vol] 100 mmol/L Normal 97-111 [facility] Comment on above: Performed By: #### C H8, HEPATIC #### [facility] [address] [place], [place], CO2 [Moles/Vol] 27 mmol/L Normal 21-30 [facility] Comment on above: Performed By: #### C H8, HEPATIC #### [facility] [address] [place], [place], Creatinine [Mass/Vol] 0.76 mg/dL Normal 0.50-1.10 [facility] Comment on above: Performed By: #### C H8, HEPATIC #### [facility] [address] [place], [place], ESTIMATED GFR (CKD-EPI) 85 mL/min/1.73sqm Normal >=60 [facility] Comment on above: Result Comment: 2020 [...] Inclusion of Race in Diagnosing Kidney Disease. [place] Journal of Kidney Diseases 2021;79(2):268-88.e1. 2. N Engl J Med 2020 Vol. 385 Issue 19 Pages 0964-0752 Performed By: #### C H8, HEPATIC #### [facility] [address] [place], [place], Glucose [Mass/Vol] 94 mg/dL Normal 80-116 [facility] Comment on above: Performed By: #### C H8, HEPATIC #### [facility] [address] [place], [place], Potassium [Moles/Vol] 3.5 mmol/L Normal 3.3-5.3 [facility] Comment on above: Performed By: #### C H8, HEPATIC #### [facility] [address] [place], [place], Sodium [Moles/Vol] 138 mmol/L Normal 135-148 [facility] Comment on above: Performed By: #### C H8, HEPATIC #### [facility] [address] [place] [address], Urea nitrogen [Mass/Vol] 6 mg/dL Low 8-22 [facility] Comment on above: Performed By: #### C H8, HEPATIC #### [facility] [address] [place] [address], COMPLETE BLOOD COUNTon 05-25 Erythrocyte distribution width (RBC) [Ratio] 15.2 % High 11.5-14.5 [facility] Comment on above: Performed By: #### C H8, HEPATIC #### [facility] [address] [place] [address], Hematocrit (Bld) [Volume fraction] 34.5 % Low 36.0-46.0 [facility] Comment on above: Performed By: #### C H8, HEPATIC #### [facility] [address] [place] [address], Hemoglobin (Bld) [Mass/Vol] 12.0 g/dL Normal 12.0-15.0 [facility] Comment on above: Performed By: #### C H8, HEPATIC #### [facility] [address] [place] [address], MCH (RBC) [Entitic mass] 28.6 pg Normal 26.0-34.0 [facility] Comment on above: Performed By: #### C H8, HEPATIC #### [facility] [address] [place] [address], MCHC (RBC) [Mass/Vol] 34.8 g/dL Normal 32.0-35.[address] [facility] Comment on above: Performed By: #### C H8, HEPATIC #### [facility] [address] [place] [address], MCV (RBC) [Entitic vol] 82 fL Normal 80-[address] [facility] Comment on above: Performed By: #### C H8, HEPATIC #### [facility] [address] [place] [address], Platelet mean volume (Bld) [Entitic vol] 7.7 fL Normal 7.5-11.2 [facility] Comment on above: Performed By: #### C H8, HEPATIC #### [facility] [address] [place], [place], Platelets (Bld) [#/Vol] 348 10*3/uL Normal 150-400 [facility] Comment on above: Performed By: #### C H8, HEPATIC #### [facility] [address] [place], [place], RBC (Bld) [#/Vol] 4.19 10*6/uL Normal 4.00-5.20 [facility] Comment on above: Performed By: #### C H8, HEPATIC #### [facility] [address] [place], [place], WBC (Bld) [#/Vol] 8.7 10*3/uL Normal 4.5-11.5 [facility] Comment on above: Performed By: #### C H8, HEPATIC #### [facility] [address] [place] [address], Care Plan Noteon 05-25-2022 [employer] Authentication Interface Message Text Problem: Routine Care: [...] C H8, HEPATIC #### [facility] [address] [place] [address], Glucose [Mass/Vol] 92 mg/dL Normal 80-116 [facility] Comment on above: Performed By: #### [id number] #### NURSING GLUCOSE PROGRAM [address] [place], [place], Glucose [Mass/Vol] 93 mg/dL Normal 80-116 [facility] Comment on above: Performed By: #### C H8, HEPATIC #### [facility] [address] [place] [address], MAGNESIUMon 05-25-2022 Magnesium [Mass/Vol] 2.0 mg/dL Normal 1.6-2.8 [facility] Comment on above: Performed By: #### C H8, HEPATIC #### [facility] [address] [place] [address], Progress Noteson 05-25-2022 [employer] Authentication Interface Message Text Pt is rec to dc home with no homegoing needs. Pt reportedly has sister who can provide PRN assistance. Medical team to please notify SW if any SW or DC concerns arise. [address] [facility] [facility] Normal [facility] Die Repairer Forging Authentication Interface Message Text Accuchecks not uploading into epic- are as follows 2000- glucose 94 0000- glucose 93 0400- glucose 93 Normal [facility] [employer] Repairer Forging Authentication Interface Message Text Pt emptied and flushed drain with RN supervision. No further questions at this time, will; reinforce in the AM. 0630 Pt flushed and emptied drain w/ RN supervision. No further questions at this time, written instructions for both provided to pt. Normal [facility] BASIC METABOLIC PANELon 02-2 Anion gap [Moles/Vol] 18 mmol/L Normal 10-20 [facility] Comment on above: Performed By: #### H STRP #### [facility] [address] [place] [address], Calcium [Mass/Vol] 8.6 mg/dL Normal 8.4-10.4 [facility] Comment on above: Performed By: #### H STRP #### [facility] [address] [place], [place], Chloride [Moles/Vol] 100 mmol/L Normal 97-111 [facility] Comment on above: Performed By: #### H STRP #### [facility] [address] [place], CO2 [Moles/Vol] 24 mmol/L Normal 21-30 [facility] Comment on above: Performed By: #### H STRP #### [facility] [address] [place], [place], Creatinine [Mass/Vol] 0.66 mg/dL Normal 0.50-1.10 [facility] Comment on above: Performed By: #### H STRP #### S PATHOLOGY LABORATORY [address] [place], [place], ESTIMATED GFR (CKD-EPI) 95 mL/min/1.73sqm Normal >=60 [facility] Comment on above: Result Comment: 2020 CKD EPI Equation using Creatinine without Race Comment: Estimated glomerular filtration rate (eGFR) is calculated without a race coefficient. Values should be interpreted in the context of the patient's full clinical presentation. Reference: 1. Leonardo C, Makayla M, lIya FLYNN, et al.. A Unifying Approach for GFR Estimation: Recommendations of the NKF-ASN Task Force on Reassessing the Inclusion of Race in Diagnosing Kidney Disease. [place] Journal of Kidney Diseases 2021;79(2):268-88.e1. 2. N Engl J Med 2020 Vol. 385 Issue 19 Pages 9760-8470 Performed By: #### H STRP #### [facility] [address] [place], [place], Glucose [Mass/Vol] 88 mg/dL Normal 80-116 The [facility] Comment on above: Performed By: #### H STRP #### [facility] [address] [place], [place], Potassium [Moles/Vol] 3.5 mmol/L Normal 3.3-5.[address] [facility] Comment on above: Performed By: #### H STRP #### S PATHOLOGY LABORATORY [address] [place], [place], Sodium [Moles/Vol] 138 mmol/L Normal 135-[address] [facility] Comment on above: Performed By: #### H STRP #### S PATHOLOGY LABORATORY [address] [place], [place], Urea nitrogen [Mass/Vol] 5 mg/dL Low 8-[address] [facility] Comment on above: Performed By: #### H STRP #### S PATHOLOGY LABORATORY [address] [place], [place], COMPLETE BLOOD COUNTon 05-24 Erythrocyte distribution width (RBC) [Ratio] 15.1 % High 11.5-14.[address] [facility] Comment on above: Performed By: #### C BC ####[facility] [id number] [place], [place], Hematocrit (Bld) [Volume fraction] 35.5 % Low 36.0-46.[address] [facility] Comment on above: Performed By: #### C BC ####[facility] [id number] [place], [place], Hemoglobin (Bld) [Mass/Vol] 11.8 g/dL Low 12.0-15.[address] [facility] Comment on above: Performed By: #### C BC ####[facility] [id number] [place], [place], MCH (RBC) [Entitic mass] 27.2 pg Normal 26.0-34.[address] [facility] Comment on above: Performed By: #### C BC ####[facility] [id number] [place], [place], MCHC (RBC) [Mass/Vol] 33.2 g/dL Normal 32.0-35.[address] [facility] Comment on above: Performed By: #### C BC ####[facility] [id number] [place], [place], MCV (RBC) [Entitic vol] 82 fL Normal 80-100 The [facility] Comment on above: Performed By: #### C BC ####[facility] [id number] [place], [place], Platelet mean volume (Bld) [Entitic vol] 7.6 fL Normal 7.5-11.2 [facility] Comment on above: Performed By: #### C BC ####[facility] [id number] [place], [place], Platelets (Bld) [#/Vol] 375 10*3/uL Normal 150-400 [facility] Comment on above: Performed By: #### C BC ####[facility] [id number] [place], [place], RBC (Bld) [#/Vol] 4.32 10*6/uL Normal 4.00-5.20 [facility] Comment on above: Performed By: #### C BC ####[facility] [id number] [place], WBC (Bld) [#/Vol] 9.0 10*3/uL Normal 4.5-11.5 The [facility] Comment on above: Performed By: #### C BC ####[facility] [id number] [place], [place], Care Plan Noteon 05-24-2022 Die Repairer Forging Authentication Interface Message Text Problem: Routine Care: [...] Performed By: #### 8 2948 ####NURSING GLUCOSE [id number] [place], [address] Glucose [Mass/Vol] 76 mg/dL Low 80-116 [facility] Comment on above: Performed By: #### H STRP #### [facility] [address] [place] [address], Glucose [Mass/Vol] 84 mg/dL Normal 80-116 [facility] Comment on above: Performed By: #### 8 2948 #### NURSING GLUCOSE PROGRAM [address] [place], [address] Glucose [Mass/Vol] 95 mg/dL Normal 80-116 [facility] Comment on above: Performed By: #### C H8, HEPATIC #### [facility] [address] [place] [address], Glucose [Mass/Vol] 93 mg/dL Normal 80-116 [facility] Comment on above: Performed By: #### C H8, HEPATIC #### [facility] [address] [place] [address], Glucose [Mass/Vol] 97 mg/dL Normal 80-116 The [facility] Comment on above: Performed By: #### H STRP #### [facility] [address] [place] [address], MAGNESIUMon 05-24-2022 Magnesium [Mass/Vol] 1.9 mg/dL Normal 1.6-2.8 The [facility] Comment on above: Performed By: #### H STRP #### [facility] [address] [place] [address], [id number] Progress Noteson 05-24-2022 Die Repairer Forging Authentication Interface Message Text [facility] DIVISION OF ACUTE CARE SURGERY ---- GENERAL INFORMATION --- EMERGENCY GENERAL SURGERY NOTE Patient Name: Gerry Victoria Admission Date: 05/16/2022 Patient seen and examined on 05/24/2022 -- INTERVAL HISTORY/EVENTS Background Narrative: Gerry Victoria is a 66 year old female with PMH of hypertension, RLS, GERD, and h/o paroxysmal SVT who presented to our community hospital with epigastric pain with nausea and vomiting. Patient describes onset of pain on prior day that has increased since then. Shortly after onset of pain, patient experienced nausea and persistent vomiting, now unable to tolerate PO intake. Denies fevers, chills. She presented to [facility] where EKG demonstrated 'hyperacute T waves' in multiple leads without evidence of STEMI. Troponin originally 139, then 381 on repeat. CTA was performed and did not reveal dissection or PE. CT did demonstrate acute inflammation of the gallbladder with a stone at the neck. A central line was placed for resuscitation purposes and the patient was transferred to [facility] for further evaluation. Prior to transfer, lab work without leukocytosis (10.7) and LFTs/Lipase without abnormality. ACS consulted upon arrival to [facility] for cholecystitis. She was admitted to the SDU for telemetry under EGS but transferred to [facility] on 05/20/22 Hospital Course/Procedures: 05/16/2022: Transferred from [facility] ED with cholecystitis, up-trending troponin, and unclear EKG findings. Up-trending leukocytosis, down-trending troponin by PM. Cardiology following. Zosyn started. 05/17/2022: rCT with worsening gallbladder inflammation /o free air or rupture. Percutaneous cholecystotomy tube placement with IR. 05/19/2022: Bilious emesis, NGT placed 05/20/2022: Transferred to [facility] 05/21/2022:To stop zosyn today day 06/2805/22/2022: YANN, ongoing bilious NGT output 05/23/2022: [facility] with mild non-obstructive diffuse coronary artery disease. NGT placed to gravity. Events in last 24 hours: NAEOn. [facility] completed yesterday with mild non-obstructive diffuse coronary [...] Hct MCV RDW Plt PT aPTT INR 05/24/2235 9.0 4.32 11.8 35.5 82 15.1 375 [...] course of IV Zosyn 05/16/22 - 05/21/2022. [facility] completed 05/23 showing no obstructive disease. Plan 1. Neurologic - Tylenol q4 PRN, oxycodone q4 PRN f (more content not included)... Normal [facility] [employer]airer [employer]ging Authentication Interface Message Text Accuchecks not uploading into 5 examples- are as follows for night worker 05/23 1899- 07: 2000- glucose 95 0000- glucose 97 0400- glucose 93 Normal [facility] BASIC METABOLIC PANELon - Anion gap [Moles/Vol] 12 mmol/L Normal 10-20 [facility] Comment on above: Performed By: #### H STRP #### [facility] [address] [place] [address], Calcium [Mass/Vol] 8.4 mg/dL Normal 8.4-10.4 [facility] Comment on above: Performed By: #### H STRP #### [facility] [address] [place] [address], Chloride [Moles/Vol] 100 mmol/L Normal 97-111 [facility] Comment on above: Performed By: #### H STRP #### [facility] [address] [place] [address], CO2 [Moles/Vol] 31 mmol/L High 21-30 [facility] Comment on above: Performed By: #### H STRP #### [facility] [address] [place] [address], Creatinine [Mass/Vol] 0.65 mg/dL Normal 0.50-1.10 [facility] Comment on above: Performed By: #### H STRP #### [facility] [address] [place] [address], ESTIMATED GFR (CKD-EPI) 96 mL/min/1.73sqm Normal >=60 [facility] Comment on above: Result Comment: 2020 [...] Inclusion of Race in Diagnosing Kidney Disease. [place] Journal of Kidney Diseases 2021;79(2):268-88.e1. 2. N Engl J Med 1 Vol. 385 Issue 19 Pages 8748-0392 Performed By: #### H STRP #### [facility] [address] [place], [place], Glucose [Mass/Vol] 92 mg/dL Normal 80-116 The [facility] Comment on above: Performed By: #### H STRP #### [facility] [address] [place], Potassium [Moles/Vol] 3.5 mmol/L Normal 3.3-5.3 [facility] Comment on above: Performed By: #### H STRP #### [facility] [address] [place], Sodium [Moles/Vol] 139 mmol/L Normal 135-148 The [facility] Comment on above: Performed By: #### H STRP #### S PATHOLOGY LABORATORY [address] [place], [place], Urea nitrogen [Mass/Vol] 4 mg/dL Low 8-22 The [facility] Comment on above: Performed By: #### H STRP #### S PATHOLOGY LABORATORY [address] [place], COMPLETE BLOOD COUNTon 05-23 Erythrocyte distribution width (RBC) [Ratio] 14.9 % High 11.5-14.5 The [facility] Comment on above: Performed By: #### C BC ####S PATHOLOGY [id number] [place], [place], Hematocrit (Bld) [Volume fraction] 33.2 % Low 36.0-46.0 [facility] Comment on above: Performed By: #### C BC ####S PATHOLOGY [id number] [place], [place], Hemoglobin (Bld) [Mass/Vol] 11.1 g/dL Low 12.0-15.0 [facility] Comment on above: Performed By: #### C BC ####S PATHOLOGY [id number] [place], [place], MCH (RBC) [Entitic mass] 27.4 pg Normal 26.0-34.0 The [facility] Comment on above: Performed By: #### C BC ####[facility] [id number] [place], MCHC (RBC) [Mass/Vol] 33.4 g/dL Normal 32.0-35.9 [facility] Comment on above: Performed By: #### C BC ####S PATHOLOGY [id number] [place], MCV (RBC) [Entitic vol] 82 fL Normal 80-100 [facility] Comment on above: Performed By: #### C BC ####[facility] [id number] [place], Platelet mean volume (Bld) [Entitic vol] 7.4 fL Low 7.5-11.2 [facility] Comment on above: Performed By: #### C BC ####[facility] [id number] [place], [place], Platelets (Bld) [#/Vol] 313 10*3/uL Normal 150-400 [facility] Comment on above: Performed By: #### C BC ####[facility] [id number] [place], RBC (Bld) [#/Vol] 4.04 10*6/uL Normal 4.00-5.20 [facility] Comment on above: Performed By: #### C BC ####[facility] [id number] [place], WBC (Bld) [#/Vol] 7.1 10*3/uL Normal 4.5-11.5 [facility] Comment on above: Performed By: #### C BC ####[facility] [id number] [place], [place], Care Plan Noteon 05-23-2022 Die Repairer Forging Authentication Interface Message Text Problem: Routine Care: [...] demand and imbalance Outcome: Progressing Normal [facility] Consultson 05-23-2022 Die Repairer Forging Authentication Interface Message Text PHYSICAL THERAPY Attempt at Tx Session this PM is unsuccessful as Patient is off floor in EP for Coronary angiograms w/ poss intervention Will follow up Tawny Peñaloza, PT, MPT (B) [phone] Normal [facility] Die Repairer [employer]ging Authentication Interface Message Text Initial Adult Inpatient [...] WBC RBC Hgb Hct MCV RDW Plt 05/23/22135 7.1 4.04 11.1 33.2 82 14.9 313 02/26/23 0032 7.0 4.17 11.4 34.3 82 15.1 [...] none Hair/Nails/Skin: intact Eyes/Nose/Mouth: NGT Estimated needs: 4266-1451 kcal/d 25-30 kcal/kg 80-105 g pro/d 1-1.3 g pro/kg Assessment: 66 year old female with PMH of hypertension, RLS, GERD, and h/o paroxysmal SVT who presented to our community hospital with epigastric pain with nausea and vomiting. Patient describes onset of pain on prior day that has increased since then. Shortly after onset of pain, patient experienced nausea and persistent vomiting, now unable to tolerate PO intake. Denies fevers, chills. She presented to [facility] where EKG demonstrated 'hyperacute T waves' in multiple leads without evidence of STEMI. Troponin originally 139, then 381 on repeat. CTA was performed and did not reveal dissection or PE. CT did demonstrate acute inflammation of the gallbladder with a stone at the neck. A central line was placed for resuscitation purposes and the patient was transferred to [facility] for further evaluation. Prior to transfer, lab work without leukocytosis (10.7) and LFTs/Lipase without abnormality. ACS consulted upon arrival to [facility] for cholecystitis. She was admitted to the SDU for telemetry under EGS but transferred to [facility] on 05/20/22 Hospital Course/Procedures: 05/16/2022: Transferred from [facility] ED with cholecystitis, up-trending troponin, and unclear EKG findings. Up-trending leukocytosis, down-trending troponin by PM. Cardiology following. Zosyn started. 05/17/2022: rCT with worsening gallbladder inflammation /o free air or rupture. Percutaneous cholecystotomy tube placement with IR. 05/19/2022: Bilious emesis, NGT placed 05/20/2022: Transferred to [facility] 05/21/2022:To stop zosyn today day 06/28 [...] follow Luis Roberts RD, LD Personal Pager [phone] Vinyl Flooring Installer Pager: [phone] Normal [facility] Die Repairer Forging Authentication Interface Message Text Diet Adult Specialist Nutrition Screening Reason for visit: 7 to [...] Will continue to follow, May Sanchez Diet Adult Specialist Pager [phone] Normal [facility] GLUCOSE, FINGERSTICK-IN OFFI CEon 02-27-2023 Glucose [Mass/Vol] 95 mg/dL Normal 80-116 [facility] Comment on above: Performed By: #### H STRP #### [facility] [address] [place], [place], Glucose [Mass/Vol] 102 mg/dL Normal 80-116 [facility] Comment on above: Performed By: #### C H8, HEPATIC #### [facility] [address] [place], [place], Glucose [Mass/Vol] 105 mg/dL Normal 80-116 [facility] Comment on above: Performed By: #### 8 2948 #### NURSING GLUCOSE PROGRAM [address] [place], [place], Glucose [Mass/Vol] 89 mg/dL Normal 80-116 [facility] Comment on above: Performed By: #### H STRP #### [facility] [address] [place], Glucose [Mass/Vol] 92 mg/dL Normal 80-116 [facility] Comment on above: Performed By: #### 8 2948 #### NURSING GLUCOSE PROGRAM [address] [place] [address], [id number] MAGNESIUMon 05-23-2022 Magnesium [Mass/Vol] 1.9 mg/dL Normal 1.6-2.8 [facility] Comment on above: Performed By: #### H STRP #### [facility] [address] [place] [address], Procedureson 05-23-2022 Die Repairer Forging Authentication Interface Message Text Invasive Cardiology Report Demographics Patient name JULIEN GARRETT Height 155cm Patient # [id number] Weight 79.8kg BSA 1.79m2 Date of 1955 [...] KIT CARDIAC CATH PACK CA/3, Room Charge ACETYLENE TORCH OPERATOR, [facility] InQwire .035 x 150cm 3mmJ, Glidesheath Slender 6Fr., 6F [place] Radial 4.0 110cm, Omnipaque 350 100cc and TR Band. Contrast material: 50 ml Omnipaque 350. Fluoroscopy time: PCI: 2:06 minutes. Total: 2:06 minutes. IABP: No IABP Procedure Description In a sterile fashion, after infiltration with 2% lidocaine, a 6 Turkish arterial sheath was placed through a right radial artery puncture. A 6 Turkish [place] 4.0 radial catheter was inserted and passed retrograde into the ascending aorta and left ventricle where pressures were recorded. After pressure measurements were recorded, the left and right coronary arteries were selectively opacified and Coronary angiograms were performed in multiple projections using a 6 Turkish [place] 4.0 radial catheter. At the end of the procedure, right radial arterial sheath was removed and hemostasis was obtained using a TR band. Moderate sedation provided by the attending physician performing the procedure. The moderate sedation intraservice time was 12 minutes. Normal [facility] Progress Noteson 05-23-2022 Die Repairer Forging Authentication Interface Message Text LHC showed no obstructive coronary artery disease. Medical management with aspirin 81 mg daily, losartan 25 mg daily and metoprolol XL 12.5 mg with dose adjustment as tolerated. She will need outpatient follow up with cardiology Cards team signing off. Please feel free to contact in case of any qs. Normal [facility] Die Repairer Forging [employer]ation Interface Message Text PT recs anticipate pt to be appropriate for home-going. Pt reportedly has sister who can provide PRN assistance. Medical team to please notify SW if any SW or DC concerns arise. [address] [place] [facility] CITYMaryann,SENIOR SVP Normal [facility] [employer] Die Repairer Forging Authentication Interface Message Text [employer] DIVISION OF ACUTE CARE SURGERY ---- GENERAL INFORMATION --- EMERGENCY GENERAL SURGERY NOTE Patient Name: Gerry Victoria Admission Date: 05/16/2022 Patient seen and examined on 05/23/2022 -- INTERVAL HISTORY/EVENTS Background Narrative: Gerry Victoria is a 66 year old female with PMH of hypertension, RLS, GERD, and h/o paroxysmal SVT who presented to our community hospital with epigastric pain with nausea and vomiting. Patient describes onset of pain on prior day that has increased since then. Shortly after onset of pain, patient experienced nausea and persistent vomiting, now unable to tolerate PO intake. Denies fevers, chills. She presented to [facility] where EKG demonstrated 'hyperacute T waves' in multiple leads without evidence of STEMI. Troponin originally 139, then 381 on repeat. CTA was performed and did not reveal dissection or PE. CT did demonstrate acute inflammation of the gallbladder with a stone at the neck. A central line was placed for resuscitation purposes and the patient was transferred to [facility] for further evaluation. Prior to transfer, lab work without leukocytosis (10.7) and LFTs/Lipase without abnormality. ACS consulted upon arrival to [facility] for cholecystitis. She was admitted to the SDU for telemetry under EGS but transferred to [facility] on 05/20/22 Hospital Course/Procedures: 05/16/2022: Transferred from [facility] ED with cholecystitis, up-trending troponin, and unclear EKG findings. Up-trending leukocytosis, down-trending troponin by PM. Cardiology following. Zosyn started. 05/17/2022: rCT with worsening gallbladder inflammation /o free air or rupture. Percutaneous cholecystotomy tube placement with IR. 05/19/2022: Bilious emesis, NGT placed 05/20/2022: Transferred to [facility] 05/21/2022:To stop zosyn today day 4/4 [...] Seen resting in bed in SICU in [facility]- I J line in place [...] Hct MCV RDW Plt PT aPTT INR 05/23/22 0136 7.1 4.04 11.1 33.2 82 14.9 313 Basic Metabolic Panel Na K Cl CO2 Gap Glu BUN Cr Ca Mg PO4 05/23/22 0136 1.9 05/23/226 139 3.5 100 31 12 92 4 [...] appropr (more content not included)... Normal [facility] TYPE AND SCREENon 05-23-2022 ABO and Rh group Nom (Bld) Blood group A Rh(D) positive Normal [facility] Comment on above: Performed By: #### H STRP #### S PATHOLOGY LABORATORY [address] [place] [address], ABSC INT Negative Normal The [facility] Comment on above: Performed By: #### H STRP #### S PATHOLOGY LABORATORY [address] [place] [address], BASIC METABOLIC PANELon 04-28 Anion gap [Moles/Vol] 13 mmol/L Normal 10-20 [facility] Comment on above: Performed By: #### 8 2948 #### NURSING GLUCOSE PROGRAM [address] [place] [address], [address] Calcium [Mass/Vol] 8.7 mg/dL Normal 8.4-10.4 [facility] Comment on above: Performed By: #### 8 2948 #### NURSING GLUCOSE PROGRAM [address] [place] [address], [address] Chloride [Moles/Vol] 98 mmol/L Normal 97-111 [facility] Comment on above: Performed By: #### 8 2948 #### NURSING GLUCOSE PROGRAM [address] [place] [address], [address] CO2 [Moles/Vol] 31 mmol/L High 21-30 [facility] Comment on above: Performed By: #### 8 2948 #### NURSING GLUCOSE PROGRAM [address] [place], [address] Creatinine [Mass/Vol] 0.76 mg/dL Normal 0.50-1.10 [facility] Comment on above: Performed By: #### 8 2948 #### NURSING GLUCOSE PROGRAM [address] [place], [address] ESTIMATED GFR (CKD-EPI) 85 mL/min/1.73sqm Normal >=60 [facility] Comment on above: Result Comment: 2020 [...] Inclusion of Race in Diagnosing Kidney Disease. [place] Journal of Kidney Diseases 2021;79(2):268-88.e1. 2. N Engl J Med 1 Vol. 385 Issue 19 Pages 1685-7852 Performed By: #### 8 2948 #### NURSING GLUCOSE PROGRAM [address] [place], [address] Glucose [Mass/Vol] 91 mg/dL Normal 80-116 [facility] Comment on above: Performed By: #### 8 2948 #### NURSING GLUCOSE PROGRAM [address] [place], [address] Potassium [Moles/Vol] 3.6 mmol/L Normal 3.3-5.3 [facility] Comment on above: Performed By: #### 8 2948 #### NURSING GLUCOSE PROGRAM [address] [place], [address] Sodium [Moles/Vol] 138 mmol/L Normal 135-148 [facility] Comment on above: Performed By: #### 8 2948 #### NURSING GLUCOSE PROGRAM [address] [place], [address] Urea nitrogen [Mass/Vol] 5 mg/dL Low 8-22 The [facility] Comment on above: Performed By: #### 8 2948 #### NURSING GLUCOSE PROGRAM [address] [place], [address] COMPLETE BLOOD COUNTon 05-22 Erythrocyte distribution width (RBC) [Ratio] 15.1 % High 11.5-14.[address] [facility] Comment on above: Performed By: #### C BC ####[facility] PATHOLOGY [id number] [place], [place], Hematocrit (Bld) [Volume fraction] 34.3 % Low 36.0-46.[address] [facility] Comment on above: Performed By: #### C BC ####[facility] PATHOLOGY [id number] [place], [place], Hemoglobin (Bld) [Mass/Vol] 11.4 g/dL Low 12.0-15.[address] [facility] Comment on above: Performed By: #### C BC ####[facility] PATHOLOGY [id number] [place], [place], MCH (RBC) [Entitic mass] 27.4 pg Normal 26.0-34.[address] [facility] Comment on above: Performed By: #### C BC ####[facility] PATHOLOGY [id number] [place], [place], MCHC (RBC) [Mass/Vol] 33.4 g/dL Normal 32.0-35.[address] [facility] Comment on above: Performed By: #### C BC ####[facility] PATHOLOGY [id number] [place], [place], MCV (RBC) [Entitic vol] 82 fL Normal 80-[address] [facility] Comment on above: Performed By: #### C BC ####[facility] PATHOLOGY [id number] [place], [place], Platelet mean volume (Bld) [Entitic vol] 7.6 fL Normal 7.5-11.[address] [facility] Comment on above: Performed By: #### C BC ####[facility] PATHOLOGY [id number] [place], [place], Platelets (Bld) [#/Vol] 322 10*3/uL Normal 150-400 [facility] Comment on above: Performed By: #### C BC ####[facility] [id number] [place], [place], RBC (Bld) [#/Vol] 4.17 10*6/uL Normal 4.00-5.20 [facility] Comment on above: Performed By: #### C BC ####S PATHOLOGY [id number] [place], [place], WBC (Bld) [#/Vol] 7.0 10*3/uL Normal 4.5-11.5 [facility] Comment on above: Performed By: #### C BC ####S PATHOLOGY [id number] [place], [place], Care Plan Noteon 05-22-2022 [employer] Authentication Interface Message Text Problem: Routine Care: [...] demand and imbalance Outcome: Progressing Normal [facility] GLUCOSE, FINGERSTICK-IN OFFI CEon 05-22-2022 Glucose [Mass/Vol] 78 mg/dL Low 80-116 [facility] Comment on above: Performed By: #### 8 2948 #### NURSING GLUCOSE PROGRAM [address] [place], [address] Glucose [Mass/Vol] 99 mg/dL Normal 80-116 [facility] Comment on above: Performed By: #### 8 2948 #### NURSING GLUCOSE PROGRAM [address] [place], [address] Glucose [Mass/Vol] 134 mg/dL High 80-116 [facility] Comment on above: Performed By: #### 8 2948 #### NURSING GLUCOSE PROGRAM [address] [place], [address] Glucose [Mass/Vol] 111 mg/dL Normal 80-116 [facility] Comment on above: Performed By: #### Reid G, CH8 #### [facility] [address] [place], [place], Glucose [Mass/Vol] 103 mg/dL Normal 80-116 [facility] Comment on above: Performed By: #### C H8, HEPATIC #### [facility] [address] [place], [place], Glucose [Mass/Vol] 112 mg/dL Normal 80-116 [facility] Comment on above: Performed By: #### C H8, HEPATIC #### [facility] [address] [place], [place], MAGNESIUMon 05-22-2022 Magnesium [Mass/Vol] 2.0 mg/dL Normal 1.6-2.8 The [facility] Comment on above: Performed By: #### 8 2948 #### NURSING GLUCOSE PROGRAM [address] [place], [address] Progress Noteson 05-22-2022 Die Repaire[employer]ging Authentication Interface Message Text [facility] SURGERY ---- GENERAL INFORMATION --- EMERGENCY GENERAL SURGERY NOTE Patient Name: Gerry Victoria Admission Date: 05/16/2022 Patient seen and examined on 05/22/2022 -- INTERVAL HISTORY/EVENTS Background Narrative: Gerry Victoria is a 66 year old female with PMH of hypertension, RLS, GERD, and h/o paroxysmal SVT who presented to our community hospital with epigastric pain with nausea and vomiting. Patient describes onset of pain on prior day that has increased since then. Shortly after onset of pain, patient experienced nausea and persistent vomiting, now unable to tolerate PO intake. Denies fevers, chills. She presented to [facility] where EKG demonstrated 'hyperacute T waves' in multiple leads without evidence of STEMI. Troponin originally 139, then 381 on repeat. CTA was performed and did not reveal dissection or PE. CT did demonstrate acute inflammation of the gallbladder with a stone at the neck. A central line was placed for resuscitation purposes and the patient was transferred to [facility] for further evaluation. Prior to transfer, lab work without leukocytosis (10.7) and LFTs/Lipase without abnormality. ACS consulted upon arrival to [facility] for cholecystitis. She was admitted to the SDU for telemetry under EGS but transferred to [facility] on 05/20/22 Hospital Course/Procedures: 05/16/2022: Transferred from [facility] ED with cholecystitis, up-trending troponin, and unclear EKG findings. Up-trending leukocytosis, down-trending troponin by PM. Cardiology following. Zosyn started. 05/17/2022: rCT with worsening gallbladder inflammation /o free air or rupture. Percutaneous cholecystotomy tube placement with IR. 05/19/2022: Bilious emesis, NGT placed 05/20/2022: Transferred to [facility] 05/21/2022:To stop zosyn today day 06/28 [...] Seen resting in bed in SICU in [facility]- I J line in place [...] Cr Ca Mg PO4 05/22/22 0032 2.0 05/22/222 138 3.6 98 31 13 [...] P (more content not included)... Normal [facility] [employer] Authentication Interface Message Text 05/22/2022 4:04 PM Referring Attending: Dr Jocelyne Victoria [id number] Planned Procedure: Coronary angiograms w/ poss intervention Procedure Indication: Suspected CAD CV Risk Factors: Hypertension: Yes History of Present Illness: 66 year old female with history of hypertension, recent diagnosis of type II RI, atypical takotsubo, acute cholecystitis s/p percutaneous cholecystostomy drain placement is referred for [facility] for CAD risk stratification and preparation for [...] CO2 Gap Glu BUN Cr Ca 05/22/22 003 138 3.6 98 31 13 91 5 0.76 8.7 05/21/22123 138 3.2 100 29 12 107 4 0.65 8.1 05/20/22216 137 3.8 100 30 11 105 5 0.71 7.6 05/19/22 0355 139 3.5 102 31 10 120 8 0.74 7.7 05/18/22227 136 3.9 101 27 12 77 [...] Hemodyn (more content not included)... Normal [facility] BASIC METABOLIC PANELon 02- Anion gap [Moles/Vol] 12 mmol/L Normal 10-20 [facility] Comment on above: Performed By: #### 8 2948 #### NURSING GLUCOSE PROGRAM [address] [place], [address] Calcium [Mass/Vol] 8.1 mg/dL Low 8.4-10.4 [facility] Comment on above: Performed By: #### 8 2948 #### NURSING GLUCOSE PROGRAM [address] [place], [address] Chloride [Moles/Vol] 100 mmol/L Normal 97-111 [facility] Comment on above: Performed By: #### 8 2948 #### NURSING GLUCOSE PROGRAM [address] [place], [address] CO2 [Moles/Vol] 29 mmol/L Normal 21-30 [facility] Comment on above: Performed By: #### 8 2948 #### NURSING GLUCOSE PROGRAM [address] [place], [address] Creatinine [Mass/Vol] 0.65 mg/dL Normal 0.50-1.10 [facility] Comment on above: Performed By: #### 8 2948 #### NURSING GLUCOSE PROGRAM [address] [place], [address] ESTIMATED GFR (CKD-EPI) 96 mL/min/1.73sqm Normal >=60 [facility] Comment on above: Result Comment: 2020 [...] Inclusion of Race in Diagnosing Kidney Disease. [place] Journal of Kidney Diseases 2021;79(2):268-88.e1. 2. N Engl J Med 1 Vol. 385 Issue 19 Pages 5565-8225 Performed By: #### 8 2948 #### NURSING GLUCOSE PROGRAM [address] [place], [address] Glucose [Mass/Vol] 107 mg/dL Normal 80-116 [facility] Comment on above: Performed By: #### 8 2948 #### NURSING GLUCOSE PROGRAM [address] [place], [address] Potassium [Moles/Vol] 3.2 mmol/L Low 3.3-5.3 [facility] Comment on above: Performed By: #### 8 2948 #### NURSING GLUCOSE PROGRAM [address] [place], [address] Sodium [Moles/Vol] 138 mmol/L Normal 135-148 [facility] Comment on above: Performed By: #### 8 2948 #### NURSING GLUCOSE PROGRAM [address] [place], [address] Urea nitrogen [Mass/Vol] 4 mg/dL Low 8-22 [facility] Comment on above: Performed By: #### 8 2948 #### NURSING GLUCOSE PROGRAM [address] [place], [address] COMPLETE BLOOD COUNTon 05-21 Erythrocyte distribution width (RBC) [Ratio] 15.2 % High 11.5-14.5 [facility] Comment on above: Performed By: #### 8 2948 #### NURSING GLUCOSE PROGRAM [address] [place], [address] Hematocrit (Bld) [Volume fraction] 30.1 % Low 36.0-46.0 [facility] Comment on above: Performed By: #### 8 2948 #### NURSING GLUCOSE PROGRAM [address] [place], [address] Hemoglobin (Bld) [Mass/Vol] 10.1 g/dL Low 12.0-15.0 [facility] Comment on above: Performed By: #### 8 2948 #### NURSING GLUCOSE PROGRAM [address] [place], [address] MCH (RBC) [Entitic mass] 27.5 pg Normal 26.0-34.0 [facility] Comment on above: Performed By: #### 8 2948 #### NURSING GLUCOSE PROGRAM [address] [place], [address] MCHC (RBC) [Mass/Vol] 33.4 g/dL Normal 32.0-35.9 [facility] Comment on above: Performed By: #### 8 2948 #### NURSING GLUCOSE PROGRAM [address] [place], [address] MCV (RBC) [Entitic vol] 82 fL Normal 80-100 [facility] Comment on above: Performed By: #### 8 2948 #### NURSING GLUCOSE PROGRAM [address] [place], [address] Platelet mean volume (Bld) [Entitic vol] 7.5 fL Normal 7.5-11.2 [facility] Comment on above: Performed By: #### 8 2948 #### NURSING GLUCOSE PROGRAM [address] [place], [address] Platelets (Bld) [#/Vol] 241 10*3/uL Normal 150-400 [facility] Comment on above: Performed By: #### 8 2948 #### NURSING GLUCOSE PROGRAM [address] [place], [address] RBC (Bld) [#/Vol] 3.67 10*6/uL Low 4.00-5.20 [facility] Comment on above: Performed By: #### 8 2948 #### NURSING GLUCOSE PROGRAM [address] [place], [address] WBC (Bld) [#/Vol] 5.0 10*3/uL Normal 4.5-11.5 [facility] Comment on above: Performed By: #### 8 2948 #### NURSING GLUCOSE PROGRAM [address] [place], [address] Care Plan Noteon 05-21-2022 Die [employer]aire[employer] Authentication Interface Message Text Problem: Routine Care: [...] demand and imbalance Outcome: Progressing Normal [facility] Consultson 05-21-2022 Die Repairer [employer]ging Authentication Interface Message Text Physical Therapy Attempted to see pt for treatment at 9:24, however, before this pt finished introducing herself pt states I just got back to sleep . Pt keeps her eyes closed and requests more time to sleep. Will continue to follow pt per POC. Geovanna Villagomez, PT, DPT Normal [facility] GLUCOSE, FINGERSTICK-IN OFFI CEon 05-21-2022 Glucose [Mass/Vol] 111 mg/dL Normal 80-116 [facility] Comment on above: Performed By: #### C H8, HEPATIC #### S PATHOLOGY LABORATORY [address] [place] [address], Glucose [Mass/Vol] 101 mg/dL Normal 80-116 The [facility] Comment on above: Performed By: #### H STRP #### [facility] [address] [place] [address], Glucose [Mass/Vol] 90 mg/dL Normal 80-116 The [facility] Comment on above: Performed By: #### Reid Grullon CH8 #### [facility] [address] [place] [address], Glucose [Mass/Vol] 77 mg/dL Low 80-116 The [facility] Comment on above: Performed By: #### 8 2948 #### NURSING GLUCOSE PROGRAM [address] [place], Glucose [Mass/Vol] 91 mg/dL Normal 80-116 [facility] Comment on above: Performed By: #### T S #### S PATHOLOGY LABORATORY [address] [place], [address] MAGNESIUMon 05-21-2022 Magnesium [Mass/Vol] 1.9 mg/dL Normal 1.6-2.8 The [facility] Comment on above: Performed By: #### 8 2948 #### NURSING GLUCOSE PROGRAM [address] [place], [address] Progress Noteson 05-21-2022 Die Repairer [employer]ging Authentication Interface Message Text [facility] SURGERY ---- GENERAL INFORMATION --- EMERGENCY GENERAL SURGERY NOTE Patient Name: Gerry Victoria Admission Date: 05/16/2022 Patient seen and examined on 05/21/2022 -- INTERVAL HISTORY/EVENTS Background Narrative: Gerry Victoria is a 66 year old female with PMH of hypertension, RLS, GERD, and h/o paroxysmal SVT who presented to our community hospital with epigastric pain with nausea and vomiting. Patient describes onset of pain on prior day that has increased since then. Shortly after onset of pain, patient experienced nausea and persistent vomiting, now unable to tolerate PO intake. Denies fevers, chills. She presented to [facility] where EKG demonstrated 'hyperacute T waves' in multiple leads without evidence of STEMI. Troponin originally 139, then 381 on repeat. CTA was performed and did not reveal dissection or PE. CT did demonstrate acute inflammation of the gallbladder with a stone at the neck. A central line was placed for resuscitation purposes and the patient was transferred to [facility] for further evaluation. Prior to transfer, lab work without leukocytosis (10.7) and LFTs/Lipase without abnormality. ACS consulted upon arrival to [facility] for cholecystitis. She was admitted to the SDU for telemetry under EGS but transferred to [facility] on 05/20/22 Hospital Course/Procedures: 05/16/2022: Transferred from [facility] ED with cholecystitis, up-trending troponin, and unclear EKG findings. Up-trending leukocytosis, down-trending troponin by PM. Cardiology following. Zosyn started. 05/17/2022: rCT with worsening gallbladder inflammation /o free air or rupture. Percutaneous cholecystotomy tube placement with IR. 05/19/2022: Bilious emesis, NGT placed 05/20/2022: Transferred to [facility] 05/21/2022:To stop zosyn today day 4/4 [...] Seen resting in bed in SICU in [facility]- I J line in place [...] FXA-LMW HEPARIN ASSAY 0.25 IU/mL Normal [facility] Comment on above: Order Comment: The r ecommended therapeutic range for treatment of thrombosis with Low Molecular Weight Heparin is 0.5 - 1.0 IU/mLThe recommended range for VTE prophylaxis with Low Molecular Weight Heparin is 0.2 - 0.4 IU/mL. Performed By: #### 8 2948 #### NURSING GLUCOSE PROGRAM [address] [place] [address], [address] BASIC METABOLIC PANELon 04-28 Anion gap [Moles/Vol] 11 mmol/L Normal 10-20 [facility] Comment on above: Performed By: #### Reid Grullon, CH8 #### [facility] PATHOLOG[facility] LABORATORY [address] [place] [address], Calcium [Mass/Vol] 7.6 mg/dL Low 8.4-10.4 [facility] Comment on above: Performed By: #### Reid Grullon, CH8 #### S PATHOLOGY LABORATORY [address] [place] [address], Chloride [Moles/Vol] 100 mmol/L Normal 97-111 [facility] Comment on above: Performed By: #### Reid Grullon, CH8 #### S PATHOLOGY LABORATORY [address] [place] [address], CO2 [Moles/Vol] 30 mmol/L Normal 21-[address] [facility] Comment on above: Performed By: #### Reid Grullon, CH8 #### S PATHOLOGY LABORATORY [address] [place] [address], Creatinine [Mass/Vol] 0.71 mg/dL Normal 0.50-1.10 [facility] Comment on above: Performed By: #### Reid Grullon, CH8 #### S PATHOLOGY LABORATORY [address] [place] [address], ESTIMATED GFR (CKD-EPI) 93 mL/min/1.73sqm Normal >=60 [facility] Comment on above: Result Comment: 2020 [...] Inclusion of Race in Diagnosing Kidney Disease. [place] Journal of Kidney Diseases 2021;79(2):268-88.e1. 2. N Engl J Med 2020 Vol. 385 Issue 19 Pages 2343-3635 Performed By: #### Reid Grullon, CH8 #### [facility] [address] [place] [address], Glucose [Mass/Vol] 105 mg/dL Normal 80-116 [facility] Comment on above: Performed By: #### Reid Grullon, CH8 #### S PATHOLOGY LABORATORY [address] [place] [address], Potassium [Moles/Vol] 3.8 mmol/L Normal 3.3-5.3 [facility] Comment on above: Performed By: #### Reid Grullon, CH8 #### S PATHOLOGY LABORATORY [address] [place] [address], Sodium [Moles/Vol] 137 mmol/L Normal 135-148 [facility] Comment on above: Performed By: #### Reid Grullon, CH8 #### S PATHOLOGY LABORATORY [address] [place] [address], Urea nitrogen [Mass/Vol] 5 mg/dL Low 8-22 [facility] Comment on above: Performed By: #### Reid Grullon, CH8 #### [facility] [address] [place] [address], COMPLETE BLOOD COUNTon 05-20 Erythrocyte distribution width (RBC) [Ratio] 15.3 % High 11.5-14.5 [facility] [place] Comment on above: Performed By: #### T S #### [facility] [address] [place] [address], Hematocrit (Bld) [Volume fraction] 27.9 % Low 36.0-46.0 [facility] Comment on above: Performed By: #### T S #### S PATHOLOGY LABORATORY [address] [place] [address], Hemoglobin (Bld) [Mass/Vol] 9.2 g/dL Low 12.0-15.0 [facility] Comment on above: Performed By: #### T S #### [facility] [address] [place], [place], MCH (RBC) [Entitic mass] 27.5 pg Normal 26.0-34.0 [facility] Comment on above: Performed By: #### T S #### [facility] [address] [place], MCHC (RBC) [Mass/Vol] 33.0 g/dL Normal 32.0-35.9 [facility] Comment on above: Performed By: #### T S #### [facility] [address] [place] [address], MCV (RBC) [Entitic vol] 83 fL Normal 80-100 [facility] Comment on above: Performed By: #### T S #### [facility] [address] [place], Platelet mean volume (Bld) [Entitic vol] 7.5 fL Normal 7.5-11.[address] [facility] Comment on above: Performed By: #### T S #### [facility] [address] [place], Platelets (Bld) [#/Vol] 231 10*3/uL Normal 150-400 [facility] Comment on above: Performed By: #### T S #### [facility] [address] [place], RBC (Bld) [#/Vol] 3.36 10*6/uL Low 4.00-5.20 [facility] Comment on above: Performed By: #### T S #### [facility] [address] [place], WBC (Bld) [#/Vol] 4.7 10*3/uL Normal 4.5-11.5 The [facility] Comment on above: Performed By: #### T S #### [facility] [address] [place], GLUCOSE, FINGERSTICK-IN OFFI CEon 05-20-2022 Glucose [Mass/Vol] 95 mg/dL Normal 80-116 The [facility] Comment on above: Performed By: #### 8 2948 ####NURSING GLUCOSE [id number] [place], [address] Glucose [Mass/Vol] 117 mg/dL High 80-116 The [facility] Comment on above: Performed By: #### 8 2948 #### NURSING GLUCOSE PROGRAM [address] [place], [address] Glucose [Mass/Vol] 85 mg/dL Normal 80-[address] [facility] Comment on above: Performed By: #### Reid Grullon, ADEEL8 #### [facility] [address] [place], Glucose [Mass/Vol] 100 mg/dL Normal 80-116 The [facility] Comment on above: Performed By: #### T S #### [facility] [address] [place], Glucose [Mass/Vol] 102 mg/dL Normal 80-116 The [facility] Comment on above: Performed By: #### 8 2948 #### NURSING GLUCOSE PROGRAM [address] [place], [address] Glucose [Mass/Vol] 92 mg/dL Normal 80-116 The [facility] Comment on above: Performed By: #### Reid Grullon, SAMMY #### [facility] [address] [place], [place], MAGNESIUMon 05-20-2022 Magnesium [Mass/Vol] 1.8 mg/dL Normal 1.6-2.[address] 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 Patient describes onset of pain on prior day that has increased since then. Shortly after onset of pain, patient experienced nausea and persistent vomiting, now unable to tolerate PO intake. Denies fevers, chills. She presented to [facility] where EKG demonstrated 'hyperacute T waves' in multiple leads without evidence of STEMI. Troponin originally 139, then 381 on repeat. CTA was performed and did not reveal dissection or PE. CT did demonstrate acute inflammation of the gallbladder with a stone at the neck. A central line was placed for resuscitation purposes and the patient was transferred to [facility] for further evaluation. Prior to transfer, lab work without leukocytosis (10.7) and LFTs/Lipase without abnormality. ACS consulted upon arrival to [facility] for cholecystitis. She was admitted to the SDU for telemetry under EGS. Hospital Course/Procedures: 05/16/2022: Transferred from [facility] ED with cholecystitis, up-trending troponin, and unclear EKG findings. Up-trending leukocytosis, down-trending troponin by PM. Cardiology following. Zosyn started. 05/17/2022: rCT with worsening gallbladder inflammation /o free air or rupture. Percutaneous cholecystotomy tube placement with IR. 05/19/2022: Bilious emesis, NGT placed 05/20/2022: Transferred to [facility] Events in last 24 hours: Transferred to [facility] Afebrile, HDS, no leukocytosis NGT in [...] wit (more content not included)... Normal [employer] BASIC METABOLIC PANELon 04-28 Anion gap [Moles/Vol] 10 mmol/L Normal 10- [facility] Comment on above: Performed By: #### Reid Grullon CH8 #### [facility] [address] [place], [id number] Calcium [Mass/Vol] 7.7 mg/dL Low 8.4-10.4 [facility] Comment on above: Performed By: #### SAMMY Hutton #### [facility] [address] [place], [place], Chloride [Moles/Vol] 102 mmol/L Normal 97-111 [facility] Comment on above: Performed By: #### Reid Grullon CH8 #### S [facility] [address] [place], [place], CO2 [Moles/Vol] 31 mmol/L High 21-30 [facility] Comment on above: Performed By: #### Reid Grullon CH8 #### S [facility] [address] [place], [place], Creatinine [Mass/Vol] 0.74 mg/dL Normal 0.50-1.10 [facility] Comment on above: Performed By: #### Reid Grullon CH8 #### [facility] [address] [place], [place], ESTIMATED GFR (CKD-EPI) 88 mL/min/1.73sqm Normal >=60 [facility] Comment [...] Inclusion of Race in Diagnosing Kidney Disease. [place] Journal of Kidney Diseases 2021;79(2):268-88.e1. 2. N Engl J Med 2020 Vol. 385 Issue 19 Pages 6458-8644 Performed By: #### Reid Grullon CH8 #### [facility] [address] [place], [place], Glucose [Mass/Vol] 120 mg/dL High 80-116 [facility] Comment on above: Performed By: #### Reid Grullon CH8 #### S [facility] [address] [place], [place], Potassium [Moles/Vol] 3.5 mmol/L Normal 3.3-5.3 [facility] Comment on above: Performed By: #### Reid Grullon CH8 #### [facility] [address] [place] [address], Sodium [Moles/Vol] 139 mmol/L Normal 135-148 [facility] Comment on above: Performed By: #### Reid Grullon, CH8 #### [facility] [address] [place] [address], Urea nitrogen [Mass/Vol] 8 mg/dL Normal 8-22 [facility] Comment on above: Performed By: #### Reid Grullon, CH8 #### [facility] [address] [place] [address], COMPLETE BLOOD COUNTon 05-19 Erythrocyte distribution width (RBC) [Ratio] 15.6 % High 11.5-14.5 [facility] Comment on above: Performed By: #### Reid Grullon, CH8 #### [facility] [address] [place] [address], Hematocrit (Bld) [Volume fraction] 28.2 % Low 36.0-46.0 [facility] Comment on above: Performed By: #### Reid Grullon, CH8 #### [facility] [address] [place] [address], Hemoglobin (Bld) [Mass/Vol] 9.4 g/dL Low 12.0-15.0 [facility] Comment on above: Performed By: #### Reid Grullon, CH8 #### [facility] [address] [place] [address], MCH (RBC) [Entitic mass] 27.7 pg Normal 26.0-34.0 [facility] Comment on above: Performed By: #### Reid Grullon, CH8 #### [facility] [address] [place] [address], MCHC (RBC) [Mass/Vol] 33.6 g/dL Normal 32.0-35.9 [facility] Comment on above: Performed By: #### Reid Grullon, CH8 #### [facility] [address] [place] [address], MCV (RBC) [Entitic vol] 83 fL Normal 80-100 [facility] Comment on above: Performed By: #### Reid Grullon, CH8 #### [facility] [address] [place], [place], Platelet mean volume (Bld) [Entitic vol] 7.8 fL Normal 7.5-11.2 [facility] Comment on above: Performed By: #### M Yadi, CH8 #### [facility] [address] [place], [place], Platelets (Bld) [#/Vol] 199 10*3/uL Normal 150-400 [facility] Comment on above: Performed By: #### Reid Grullon, CH8 #### [facility] [address] [place], [place], RBC (Bld) [#/Vol] 3.41 10*6/uL Low 4.00-5.20 [facility] Comment on above: Performed By: #### Reid Grullon, CH8 #### [facility] [address] [place], WBC (Bld) [#/Vol] 5.3 10*3/uL Normal 4.5-11.5 [facility] Comment on above: Performed By: #### Reid Grullon, CH8 #### [facility] [address] [place], [place], Care Plan Noteon 05-19-2022 [employer] Interface Message Text Problem: Routine Care: [...] Reid Grullon, CH8 #### [facility] [address] [place] [address], Glucose [Mass/Vol] 90 mg/dL Normal 80-116 [facility] Comment on above: Performed By: #### [id number] #### [facility] GLUCOSE PROGRAM [address] [place] [address], Glucose [Mass/Vol] 116 mg/dL Normal 80-116 [facility] Comment on above: Performed By: #### T S #### [facility] [address] [place] [address], Glucose [Mass/Vol] 106 mg/dL Normal 80-116 [facility] Comment on above: Performed By: #### Reid Grullon, CH8 #### [facility] [address] [place] [address], Glucose [Mass/Vol] 106 mg/dL Normal 80-116 [facility] Comment on above: Performed By: #### Reid Grullon, CH8 #### [facility] [address] [place] [address], HEPATIC FUNCTION PANELon Albumin [Mass/Vol] 2.8 g/dL Low 3.4-5.1 [facility] Comment on above: Performed By: #### Reid Grullon, CH8 #### [facility] [address] [place] [address], ALK 63 IU/L Normal 40-200 [facility] Comment on above: Performed By: #### Reid Grullon, CH8 #### [facility] [address] [place] [address], ALT [Catalytic activity/Vol] 8 U/L Normal 7-40 [facility] Comment on above: Performed By: #### M G, CH8 #### [facility] [address] [place], [place], AST [Catalytic activity/Vol] 18 U/L Normal 7-40 [facility] Comment on above: Performed By: #### Reid Grullon, CH8 #### [facility] [address] [place], [place], Bilirubin [Mass/Vol] 0.9 mg/dL Normal 0.1-1.5 [facility] Comment on above: Performed By: #### Reid Grullon, CH8 #### [facility] [address] [place], [place], Bilirubin.direct [Mass/Vol] 0.48 mg/dL High 0.10-0.30 [facility] Comment on above: Performed By: #### Reid Grullon, CH8 #### [facility] [address] [place], [place], Protein [Mass/Vol] 4.7 g/dL Low 5.7-8.1 [facility] Comment on above: Performed By: #### Reid Grullon, CH8 #### [facility] [address] [place], [place], MAGNESIUMon 05-19-2022 Magnesium [Mass/Vol] 1.8 mg/dL Normal 1.6-2.8 [facility] Comment on above: Performed By: ###Willi Grullon, CH8 #### [facility] [address] [place], [place], Progress Noteson 05-19-2022 [employer] Authentication Interface Message Text [facility] OF ACUTE CARE SURGERY ---- GENERAL INFORMATION --- EMERGENCY GENERAL SURGERY NOTE Patient Name: Gerry Victoria Admission Date: 05/16/2022 Patient seen and examined on 05/19/2022 -- INTERVAL HISTORY/EVENTS Background Narrative: Gerry Victoria is a 66 year old female with PMH of hypertension, RLS, GERD, and h/o paroxysmal SVT who [facility] with epigastric pain with nausea and vomiting. Patient describes onset of pain on prior day that has increased since then. Shortly after onset of pain, patient experienced nausea and persistent vomiting, now unable to tolerate PO intake. Denies fevers, chills. She presented to [facility] where EKG demonstrated 'hyperacute T waves' in multiple leads without evidence of STEMI. Troponin originally 139, then 381 on repeat. CTA was performed and did not reveal dissection or PE. CT did demonstrate acute inflammation of the gallbladder with a stone at the neck. A central line was placed for resuscitation purposes and the patient was transferred to [facility] for further evaluation. Prior to transfer, lab work without leukocytosis (10.7) and LFTs/Lipase without abnormality. ACS consulted upon arrival to [facility] for cholecystitis. She was admitted to the SDU for telemetry under EGS. Hospital Course/Procedures: 05/16/2022: Transferred from [facility] ED with cholecystitis, up-trending troponin, and [...] vol (more content not included)... Normal [facility] XR ABDOMEN 1 VIEW APon 05-19 [...] amount of stool. MACRO: None Normal [facility] BASIC METABOLIC PANELon 04-28 Anion gap [Moles/Vol] 12 mmol/L Normal 10-20 [facility] Comment on above: Performed By: #### Reid Grullon CH8 #### [facility] [address] [place] [address], [id number] Calcium [Mass/Vol] 7.7 mg/dL Low 8.4-10.4 [facility] Comment on above: Performed By: #### SAMMY Hutton #### [facility] [address] [place], [place], Chloride [Moles/Vol] 101 mmol/L Normal 97-111 [facility] Comment on above: Performed By: #### Reid Grullon, ADEEL8 #### [facility] [address] [place], [place], CO2 [Moles/Vol] 27 mmol/L Normal 21-30 [facility] Comment on above: Performed By: #### Reid Grullon CH8 #### [facility] [address] [place], [place], Creatinine [Mass/Vol] 0.78 mg/dL Normal 0.50-1.10 [facility] Comment on above: Performed By: #### Reid Grullon CH8 #### [facility] [address] [place], [place], ESTIMATED GFR (CKD-EPI) 83 mL/min/1.73sqm Normal >=60 [facility] Comment [...] Inclusion of Race in Diagnosing Kidney Disease. [place] Journal of Kidney Diseases 2021;79(2):268-88.e1. 2. N Engl J Med 2020 Vol. 385 Issue 19 Pages 4615-1702 Performed By: #### Reid Grullon CH8 #### [facility] [address] [place], [place], Glucose [Mass/Vol] 77 mg/dL Low 80-116 [facility] Comment on above: Performed By: #### Reid Grullon CH8 #### [facility] [address] [place], [place], Potassium [Moles/Vol] 3.9 mmol/L Normal 3.3-5.3 [facility] Comment on above: Performed By: #### M G, CH8 #### S [facility] [address] [place] [address], Sodium [Moles/Vol] 136 mmol/L Normal 135-148 [facility] Comment on above: Performed By: #### Reid Grullon, CH8 #### [facility] [address] [place] [address], Urea nitrogen [Mass/Vol] 12 mg/dL Normal 8-22 [facility] Comment on above: Performed By: #### Reid Grullon, CH8 #### [facility] [address] [place] [address], COMPLETE BLOOD COUNTon 05-18 Erythrocyte distribution width (RBC) [Ratio] 15.3 % High 11.5-14.5 [facility] Comment on above: Performed By: #### Reid Grullon, CH8 #### [facility] [address] [place] [address], Hematocrit (Bld) [Volume fraction] 28.2 % Low 36.0-46.0 [facility] Comment on above: Performed By: #### Reid Grullon, CH8 #### [facility] [address] [place] [address], Hemoglobin (Bld) [Mass/Vol] 10.1 g/dL Low 12.0-15.0 [facility] Comment on above: Performed By: #### Reid Grullon, CH8 #### [facility] [address] [place] [address], MCH (RBC) [Entitic mass] 29.2 pg Normal 26.0-34.0 [facility] Comment on above: Performed By: #### Reid Grullon, CH8 #### [facility] [address] [place] [address], MCHC (RBC) [Mass/Vol] 35.6 g/dL Normal 32.0-35.9 [facility] Comment on above: Performed By: #### Reid Grullon, CH8 #### [facility] [address] [place] [address], MCV (RBC) [Entitic vol] 82 fL Normal 80-100 [facility] Comment on above: Performed By: #### Reid Grullon, CH8 #### [facility] [address] [place] [address], Platelet mean volume (Bld) [Entitic vol] 7.6 fL Normal 7.5-11.2 [facility] Comment on above: Performed By: #### Reid Grullon, ADEEL8 #### [facility] [address] [place] [address], Platelets (Bld) [#/Vol] 177 10*3/uL Normal 150-400 [facility] Comment on above: Performed By: #### Reid Grullon, ADEEL8 #### [facility] [address] [place] [address], RBC (Bld) [#/Vol] 3.45 10*6/uL Low 4.00-5.20 [facility] Comment on above: Performed By: #### Reid Grullon, ADEEL8 #### [facility] [address] [place] [address], WBC (Bld) [#/Vol] 9.4 10*3/uL Normal 4.5-11.5 [facility] Comment on above: Performed By: #### Reid Grullon, CH8 #### [facility] [address] [place] [address], GLUCOSE, FINGERSTICK-IN OFFI CEon 05-18-2022 Glucose [Mass/Vol] 93 mg/dL Normal 80-116 [facility] Comment on above: Performed By: #### T S #### [facility] [address] [place] [address], Glucose [Mass/Vol] 98 mg/dL Normal 80-116 [facility] Comment on above: Performed By: #### T S #### S [facility] [address] [place], [place], Glucose [Mass/Vol] 118 mg/dL High 80-116 [facility] Comment on above: Result Comment: Verito aly RN, APN, MD Performed By: #### T S #### S [facility] [address] [place] [address], Glucose [Mass/Vol] 125 mg/dL High 80-[address] [facility] Comment on above: Result Comment: Verito aly RN, APN, MD Performed By: #### M ADEEL Grullon8 #### [facility] [address] [place] [address], Glucose [Mass/Vol] 66 mg/dL Low 80-[address] [facility] Comment on above: Result Comment: Verito aly RN, APN, MD Performed By: #### M ADEEL Grullon8 #### [facility] [address] [place], [place], HIGH SENSITIVITY TROPONIN Io n 05-18-2022 HS TROPONIN I 60 ng/L Critically high <=15 The [facility] Comment on above: Order Comment: High Sensitivity Cardiac Troponin I (hsTnI) assay has replaced the conventional troponin assay at [facility].All results are reported in whole numbers representing ng/L.Repeat test times for ruling out acute coronary syndrome (ACS) are every 2 hours instead of every 6-8 hours.[id number] conventional troponin (I-stat) will remain available in the [facility] ED ??? results obtained by different [...] value in 2 hours depending on risk [id number] ng/L or greater??? concern for ACS or [...] Performed By: #### H STRP ####[facility] [id number] [place], [place], MAGNESIUMon 05-18-2022 Magnesium [Mass/Vol] 2.3 mg/dL Normal 1.6-2.8 The [facility] Comment on above: Performed By: #### Reid Grullon, SAMMY #### [facility] [address] [place], [place], Progress Noteson 05-18-2022 [employer] Authentication Interface Message Text [facility] SURGERY ---- GENERAL INFORMATION --- EMERGENCY GENERAL SURGERY NOTE Patient Name: Gerry Victoria Admission Date: 05/16/2022 Patient seen and examined on 05/18/2022 -- INTERVAL HISTORY/EVENTS Background Narrative: Gerry Victoria is a 66 year old female with PMH of hypertension, RLS, GERD, and h/o paroxysmal SVT who presented to our community hospital with epigastric pain with nausea and vomiting. Patient describes onset of pain on prior day that has increased since then. Shortly after onset of pain, patient experienced nausea and persistent vomiting, now unable to tolerate PO intake. Denies fevers, chills. She presented to [facility] where EKG demonstrated 'hyperacute T waves' in multiple leads without evidence of STEMI. Troponin originally 139, then 381 on repeat. CTA was performed and did not reveal dissection or PE. CT did demonstrate acute inflammation of the gallbladder with a stone at the neck. A central line was placed for resuscitation purposes and the patient was transferred to [facility] for further evaluation. Prior to transfer, lab work without leukocytosis (10.7) and LFTs/Lipase without abnormality. ACS consulted upon arrival to [facility] for cholecystitis. She was admitted to the SDU for telemetry under EGS. Hospital Course/Procedures: 05/16/2022: Transferred from [facility] ED with cholecystitis, up-trending troponin, and [...] Performed By: #### C PYOG #### [facility] [address] [place] [address] [place], [place] BASIC METABOLIC PANELon 04-28 Anion gap [Moles/Vol] 11 mmol/L Normal 10-20 [facility] Comment on above: Performed By: #### T S #### S [facility] [address] [place] [address], Calcium [Mass/Vol] 8.1 mg/dL Low 8.4-10.4 [facility] Comment on above: Performed By: #### T S #### S [facility] [address] [place] [address], Chloride [Moles/Vol] 97 mmol/L Normal 97-111 [facility] Comment on above: Performed By: #### T S #### S [facility] [address] [place] [address], CO2 [Moles/Vol] 27 mmol/L Normal 21-30 [facility] Comment on above: Performed By: #### T S #### S [facility] [address] [place] [address], Creatinine [Mass/Vol] 0.97 mg/dL Normal 0.50-1.10 [facility] Comment on above: Performed By: #### T S #### [facility] [address] [place] [address], ESTIMATED GFR (CKD-EPI) 64 mL/min/1.73sqm Normal >=60 [facility] Comment on above: Result Comment: 2020 [...] Inclusion of Race in Diagnosing Kidney Disease. [place] Journal of Kidney Diseases 2021;79(2):268-88.e1. 2. N Engl J Med 1 Vol. 385 Issue 19 Pages 6552-8330 Performed By: #### T S #### S [facility] [address] [place] [address], Glucose [Mass/Vol] 96 mg/dL Normal 80-116 [facility] Comment on above: Performed By: #### T S #### [facility] [address] [place] [address], Potassium [Moles/Vol] 4.1 mmol/L Normal 3.3-5.3 [facility] Comment on above: Performed By: #### T S #### [facility] [address] [place] [address], Sodium [Moles/Vol] 131 mmol/L Low 135-148 [facility] Comment on above: Performed By: #### T S #### [facility] [address] [place] [address], Urea nitrogen [Mass/Vol] 14 mg/dL Normal 8-22 [facility] Comment on above: Performed By: #### T S #### [facility] [address] [place] [address], BLOOD CULTUREon 05-17-2022 Bacteria identified Cx Nom (Bld) C BLOOD: No Growth Normal [facility] Comment on above: Performed By: #### [id number] #### [facility] GLUCOSE PROGRAM [address] [place] [address], CALCIUM, IONIZEDon 3 CR ICA 1.06 mmol/L Low 1.10-1.40 [facility] Comment on above: Performed By: #### T S #### [facility] [address] [place] [address], COMPLETE BLOOD COUNTon 05-17 Erythrocyte distribution width (RBC) [Ratio] 15.8 % High 11.5-14.5 [facility] Comment on above: Performed By: #### Meenu Trammell8, HEPATIC #### [facility] [address] [place] [address], Hematocrit (Bld) [Volume fraction] 36.4 % Normal 36.0-46.0 [facility] Comment on above: Performed By: #### Meenu Mccormick, HEPATIC #### [facility] [address] [place] [address], Hemoglobin (Bld) [Mass/Vol] 12.1 g/dL Normal 12.0-15.0 [facility] Comment on above: Performed By: #### Meenu Mccormick, HEPATIC #### [facility] [address] [place] [address], MCH (RBC) [Entitic mass] 27.7 pg Normal 26.0-34.0 [facility] Comment on above: Performed By: #### Meenu Mccormick, HEPATIC #### [facility] [address] [place] [address], MCHC (RBC) [Mass/Vol] 33.3 g/dL Normal 32.0-35.9 [facility] Comment on above: Performed By: #### Meenu Mccormick, HEPATIC #### [facility] [address] [place] [address], MCV (RBC) [Entitic vol] 83 fL Normal 80-100 [facility] Comment on above: Performed By: #### Meenu Mccormick, HEPATIC #### [facility] [address] [place] [address], Platelet mean volume (Bld) [Entitic vol] 7.8 fL Normal 7.5-11.2 [facility] Comment on above: Performed By: #### Meenu Mccormick, HEPATIC #### S [facility] [address] [place] [address], Platelets (Bld) [#/Vol] 232 10*3/uL Normal 150-400 [facility] Comment on above: Performed By: #### Meenu Mccormick, HEPATIC #### [facility] [address] [place], [place], RBC (Bld) [#/Vol] 4.37 10*6/uL Normal 4.00-5.20 [facility] Comment on above: Performed By: #### C H8, HEPATIC #### [facility] [address] [place], [place], WBC (Bld) [#/Vol] 12.3 10*3/uL High 4.5-11.5 [facility] Comment on above: Performed By: #### C H8, HEPATIC #### S [facility] LABORATORY [address] [place], [place], CT ABDOMEN/PELVIS W/ CONTRAS Ton 05-17-2022 [...] the prior study. MACRO: None Normal [facility] HEPATIC FUNCTION PANELon Albumin [Mass/Vol] 3.2 g/dL Low 3.4-5.1 [facility] Comment on above: Performed By: #### C H8, HEPATIC #### [facility] [address] [place] [address], ALK 72 IU/L Normal 40-200 [facility] Comment on above: Performed By: #### C H8, HEPATIC #### [facility] [address] [place] [address], ALT [Catalytic activity/Vol] 12 U/L Normal 7-40 [facility] Comment on above: Performed By: #### C H8, HEPATIC #### [facility] [address] [place] [address], AST [Catalytic activity/Vol] 25 U/L Normal 7-40 [facility] Comment on above: Performed By: #### C H8, HEPATIC #### [facility] [address] [place] [address], Bilirubin [Mass/Vol] 3.9 mg/dL High 0.1-1.5 [facility] Comment on above: Performed By: #### C H8, HEPATIC #### S [facility]ORATORY [address] [place] [address], Bilirubin.direct [Mass/Vol] 2.30 mg/dL High 0.10-0.30 [facility] Comment on above: Performed By: #### C H8, HEPATIC #### S [facility] [address] [place] [address], Protein [Mass/Vol] 5.2 g/dL Low 5.7-8.1 [facility] Comment on above: Performed By: #### C H8, HEPATIC #### [facility] [address] [place] [address], LACTIC ACIDon 05-17-2022 CR LACT 1.4 mmol/L Normal 0.5-2.0 [facility] Comment on above: Performed By: #### T S #### [facility] [address] [place] [address], MAGNESIUMon 05-17-2022 Magnesium [Mass/Vol] 1.9 mg/dL Normal 1.6-2.8 [facility] Comment on above: Performed By: #### C H8, HEPATIC #### [facility] [address] [place] [address], PARTIAL THROMBOPLASTIN TIMEo n 05-17-2022 aPTT Coag (Bld) [Time] 34 s Normal 25-[address] [facility] Comment on above: Performed By: #### M G, CH8 #### S PATHOLOGY LABORATORY [address] [place] [address], PHOSPHORUSon 05-17-2022 Phosphate [Mass/Vol] 3.9 mg/dL Normal 2.3-4.2 [facility] Comment on above: Performed By: #### C H8, HEPATIC #### S PATHOLOGY LABORATORY [address] [place] [address], PROTHROMBIN TIME AND INRon 0 05-17-2022 INR Coag (PPP) [Relative time] 1.61 {INR} High 0.90-1.10 The [facility] Comment on above: Performed By: #### M ADEEL Grullon8 #### [facility] [address] [place], [place], PT Coag (PPP) [Time] 18.1 s High 9.7-12.9 [facility] [employer] Comment on above: Performed By: #### M SAMMY Grullon #### [facility] [address] [place], [place], Progress Noteson 05-17-2022 [employer] Authentication Interface Message Text Acute Care Surgery Post-Operative Check Gerry Victoria [id number] Procedure: US guided percutaneous cholecystostomy tube placement [...] Chu Da Silva PA-C Acute Care Surgery [facility] [phone] ACS Consults [phone] ACS Floor Patients Normal [facility] [employer] Authentication Interface Message Text -- Attestation signed [...] 4. (more content not included)... Normal [facility] Die [employer]airer [employer]ging Authentication Interface Message Text [facility] DIV[facility] OF ACUTE CARE SURGERY ---- GENERAL INFORMATION --- EMERGENCY GENERAL SURGERY NOTE Patient Name: Gerry Victoria Admission Date: 05/16/2022 Patient seen and examined on 05/17/2022 -- INTERVAL HISTORY/EVENTS Background Narrative: Gerry Victoria is a 66 year old female with PMH of hypertension, RLS, GERD, and h/o paroxysmal SVT who presented to our community hospital with epigastric pain with nausea and vomiting. Patient describes onset of pain on prior day that has increased since then. Shortly after onset of pain, patient experienced nausea and persistent vomiting, now unable to tolerate PO intake. Denies fevers, chills. She presented to [facility] where EKG demonstrated 'hyperacute T waves' in multiple leads without evidence of STEMI. Troponin originally 139, then 381 on repeat. CTA was performed and did not reveal dissection or PE. CT did demonstrate acute inflammation of the gallbladder with a stone at the neck. A central line was placed for resuscitation purposes and the patient was transferred to [facility] for further evaluation. Prior to transfer, lab work without leukocytosis (10.7) and LFTs/Lipase without abnormality. ACS consulted upon arrival to [facility] for cholecystitis. She was admitted to the SDU for telemetry under EGS. Hospital Course/Procedures: 05/16/2022: Transferred from [facility] ED with cholecystitis, up-trending troponin, and [...] aPTT INR 05/17/22410 34 05/17/22 0411 1.61 05/17/22 0411 12.3 4.37 12.1 36.4 83 15.8 232 Basic Metabolic Panel Na K Cl CO2 Gap Glu BUN Cr Ca Mg PO4 05/17/22 0411 3.9 05/17/22 0411 1.9 05/17/22410 [...] (LVEF) (more content not included)... Normal [facility] ABO RH TYPEon 05-16-2022 ABO and Rh group Nom (Bld) Blood group A Rh(D) positive Normal [facility] Comment on above: Performed By: #### M G, CH8 #### [facility] [address] [place] [address], BASIC METABOLIC PANELon 04-28 Anion gap [Moles/Vol] 14 mmol/L Normal 10-20 [facility] Comment on above: Performed By: #### C H8, HEPATIC #### [facility] [address] [place] [address], Calcium [Mass/Vol] 8.6 mg/dL Normal 8.4-10.4 [facility] Comment on above: Performed By: #### C H8, HEPATIC #### [facility] [address] [place] [address], Chloride [Moles/Vol] 100 mmol/L Normal 97-111 [facility] Comment on above: Performed By: #### C H8, HEPATIC #### [facility] [address] [place], [place], CO2 [Moles/Vol] 27 mmol/L Normal 21-30 [facility] Comment on above: Performed By: #### C H8, HEPATIC #### [facility] [address] [place], [place], Creatinine [Mass/Vol] 0.76 mg/dL Normal 0.50-1.10 [facility] Comment on above: Performed By: #### C H8, HEPATIC #### [facility] [address] [place], [place], ESTIMATED GFR (CKD-EPI) 85 mL/min/1.73sqm Normal >=60 [facility] Comment on above: Result Comment: 2020 [...] Inclusion of Race in Diagnosing Kidney Disease. [place] Journal of Kidney Diseases 2021;79(2):268-88.e1. 2. N Engl J Med 2020 Vol. 385 Issue 19 Pages 0623-3320 Performed By: #### C H8, HEPATIC #### [facility] [address] [place], [place], Glucose [Mass/Vol] 119 mg/dL High 80-116 [facility] Comment on above: Performed By: #### C H8, HEPATIC #### [facility] [address] [place], [place], Potassium [Moles/Vol] 4.9 mmol/L Normal 3.3-5.3 [facility] Comment on above: Performed By: #### C H8, HEPATIC #### [facility] [address] [place], [place], Sodium [Moles/Vol] 136 mmol/L Normal 135-[address] [facility] Comment on above: Performed By: #### C H8, HEPATIC #### [facility] [address] [place] [address], Urea nitrogen [Mass/Vol] 9 mg/dL Normal 8-22 [facility] Comment on above: Performed By: #### C H8, HEPATIC #### [facility] [address] [place] [address], CBC WITH DIFFERENTIALon 04-28-2022 Basophils (Bld) [#/Vol] 0.06 10*3/uL Normal 0.00-0.[address] [facility] Comment on above: Performed By: #### 8 2948 #### NURSING GLUCOSE PROGRAM [address] [place] [address], Basophils/100 WBC (Bld) 0.5 % Normal <=1.9 [facility] Comment on above: Performed By: #### 8 2948 #### NURSING GLUCOSE PROGRAM [address] [place] [address], Eosinophils (Bld) [#/Vol] 0.02 10*3/uL Normal 0.00-0.70 [facility] Comment on above: Performed By: #### 8 9548 #### NURSING GLUCOSE PROGRAM [address] [place] [address], Eosinophils/100 WBC (Bld) 0.1 % Normal 0.1-4.[address] [facility] Comment on above: Performed By: #### 8 6288 #### NURSING GLUCOSE PROGRAM [address] [place] [address], Erythrocyte distribution width (RBC) [Ratio] 15.3 % High 11.5-14.[address] [facility] Comment on above: Performed By: #### 8 9808 #### NURSING GLUCOSE PROGRAM [address] [place] [address], [address] Hematocrit (Bld) [Volume fraction] 39.2 % Normal 36.0-46.0 [facility] Comment on above: Performed By: #### 8 4258 #### NURSING GLUCOSE PROGRAM [address] [place] [address], Hemoglobin (Bld) [Mass/Vol] 13.0 g/dL Normal 12.0-15.[address] [facility] Comment on above: Performed By: #### 8 2948 #### NURSING GLUCOSE PROGRAM [address] [place], [address] Lymphocytes (Bld) [#/Vol] 1.23 10*3/uL Normal 1.00-4.80 [facility] Comment on above: Performed By: #### 8 2948 #### NURSING GLUCOSE PROGRAM [address] [place], [address] Lymphocytes/100 WBC (Bld) 10.9 % Low 24.0-44.0 [facility] Comment on above: Performed By: #### 8 2948 #### NURSING GLUCOSE PROGRAM [address] [place], [address] MCH (RBC) [Entitic mass] 27.4 pg Normal 26.0-34.[address] [facility] Comment on above: Performed By: #### 8 2948 #### NURSING GLUCOSE PROGRAM [address] [place], [address] MCHC (RBC) [Mass/Vol] 33.1 g/dL Normal 32.0-35.[address] [facility] Comment on above: Performed By: #### 8 2948 #### NURSING GLUCOSE PROGRAM [address] [place], [address] MCV (RBC) [Entitic vol] 83 fL Normal 80-[address] [facility] Comment on above: Performed By: #### 8 2948 #### NURSING GLUCOSE PROGRAM [address] [place], [address] MONOCYTE DISTRIBUTION WIDTH 17 Normal <=[address] [facility] Comment on above: Performed By: #### 8 0368 #### NURSING GLUCOSE PROGRAM [address] [place], [address] Monocytes (Bld) [#/Vol] 0.69 10*3/uL Normal 0.20-1.00 [facility] Comment on above: Performed By: #### 8 2438 #### NURSING GLUCOSE PROGRAM [address] [place], [address] Monocytes/100 WBC (Bld) 6.1 % Normal 2.0-11.0 [facility] Comment on above: Performed By: #### 8 9138 #### NURSING GLUCOSE PROGRAM [address] [place], [address] Neutrophils (Bld) [#/Vol] 9.30 10*3/uL High 1.50-8.00 [facility] Comment on above: Performed By: #### 8 2948 #### NURSING GLUCOSE PROGRAM [address] [place], [address] Neutrophils/100 WBC (Bld) 82.4 % High 31.0-76.0 [facility] Comment on above: Performed By: #### 8 2948 #### NURSING GLUCOSE PROGRAM [address] [place], [address] Platelet mean volume (Bld) [Entitic vol] 7.5 fL Normal 7.5-11.2 [facility] Comment on above: Performed By: #### 8 2948 #### NURSING GLUCOSE PROGRAM [address] [place], [address] Platelets (Bld) [#/Vol] 290 10*3/uL Normal 150-400 [facility] Comment on above: Performed By: #### 8 2948 #### NURSING GLUCOSE PROGRAM [address] [place], [address] RBC (Bld) [#/Vol] 4.74 10*6/uL Normal 4.00-5.20 [facility] Comment on above: Performed By: #### 8 2948 #### NURSING GLUCOSE PROGRAM [address] [place], [address] WBC (Bld) [#/Vol] 11.3 10*3/uL Normal 4.5-11.5 [facility] Comment on above: Performed By: #### 8 2948 #### NURSING GLUCOSE PROGRAM [address] [place], [address] Care Plan Noteon 05-16-2022 Die Repairer [employer]ging Authentication Interface Message Text Problem: Routine Care: Goal: Patient care will be managed and maintained throughout hospital stay per unit specific routine care procedure 05/16/2022 104 by Marycarmen Anna, JORDI Outcome: Progressing 05/16/2022 104 by Marycarmen Anna, RN Outcome: Progressing Problem: Acute Pain: Goal: Ability to identify pain intensity on a pain scale and rate it consistently will be achieved and maintained 05/16/2022 1042 by Marycarmen Anna, RN Outcome: Progressing Note: Pain not controlled [...] Anna RN Outcome: Progressing 05/16/2022 1041 by Marcyarmen Anna RN Outcome: Progressing Problem: Safety: Goal: [...] 1041 by Zarlinga, Marycarmen, RN Outcome: Progressing Normal [facility] Die [employer] Authentication Interface Message Text This is a 66 YO f with PMH of fibromyalgia, HTN, RLS, who presented with epigastric pain associated with nausea and vomiting around yesterday afternoon. She was seen at [facility] and EKG done there showed NSR but [...] admit to surgery step down. Normal [facility] Consultson 05-16-2022 Die Repairer [employer]ging Authentication Interface Message Text Dietitian vs DietaryTech: Dietary TechDiet Adult Specialist Nutrition Screening Reason for visit: Positive nutrition [...] Screening Value: None Comments: NPO currently with sapogy-pshygwko-rafeum to tolerate po. No food allergies. Weights-see above. Monitor NPO status-diet advance. Number of Points: 1 Nutritional Plan of Care: Less than or equal to 6 points: At this time, patient is at low nutrition risk. DTR to provide routine follow up. Will continue to follow, BRENDA Florez (Nutrition) Pager #[phone]. Normal [facility] [employer] Authentication Interface Message Text ==== New Patient Consult General Cardiology Consult Service C/O: elevated troponin levels HPI: 66 year old female with history of hypertension (on atenolol), fibromylagia, RLS is consulted for elevated HsTNT levels in the setting of hospitalization for acute cholecystitis. She presented to [facility] on 05/15 with epigastric pain, nausea and vomiting, worsening in nature and unable to tolerate oral medications. Per records, EKG at [facility] showed hyperacute T waves without STEMI. HsTroponin trend as 139->381. Imaging showed acute cholecystitis. Patient was then transferred to [facility] for further care. Patient reports no left [...] docum (more content not included)... Normal [facility] ED Provider Noteson 05-16-19 [employer] Authentication Interface Message Text EMERGENCY DEPARTMENT - [...] and shows cholecystitis Discussion with External Provider: Radiology Administrator from surgery service recommends admission for cholecystectomy vs perc-melryn drain Independent Test Interpretation: Lab studies personally [...] comforta (more content not included)... Normal [facility] H AND Cabrera 05-16-2022 Die Repairer [employer]ging Authentication Interface Message Text [facility] H AND P Gerry Victoria [id number] Consult reason: Concern for acute cholecystitis History (HPI) Gerry Victoria is a 66 year old female with PMH of hypertension, RLS, GERD who presented to our community hospital with epigastric pain with nausea and vomiting. Patient describes onset of pain on prior day that has increased since then. Shortly after onset of pain, patient experienced nausea and persistent vomiting, now unable to tolerate PO intake. Denies fevers, chills. She presented to [facility] where EKG demonstrated 'hyperacute T waves' in multiple leads without evidence of STEMI. Troponin originally 139, then 381 on repeat. CTA was performed and did not reveal dissection or PE. CT did demonstrate acute inflammation of the gallbladder with a stone at the neck. A central line was placed for resuscitation purposes and the patient was transferred to [facility] for further evaluation. Prior to transfer, lab work without leukocytosis (10.7) and LFTs/Lipase without abnormality. ACS consulted upon arrival to [facility]. PMH: HTN, RLS, GERD, Hypothyroidism, Anxiety PSH: [...] RLS, GERD who presents as transfer from [facility] with concern for acute cholecystitis alongside concurrent NSTEMI. Troponin originally 139, then 381 on repeat prior to transfer. Repeat Troponin at [facility] - 706. Cardiology consulted for evaluation who [...] impa (more content not included)... Normal [facility] [employer] HEPATIC FUNCTION PANELon Albumin [Mass/Vol] 4.0 g/dL Normal 3.4-5.1 [facility] [employer] Comment on above: Performed By: #### C H8, HEPATIC #### [facility] [address] [place] [address], [id number] ALK 79 IU/L Normal 40-200 [facility] Comment on above: Performed By: #### C H8, HEPATIC #### [facility] [address] [place], [place], ALT [Catalytic activity/Vol] 11 U/L Normal 7-[address] [facility] Comment on above: Performed By: #### C H8, HEPATIC #### [facility] [address] [place], [place], AST [Catalytic activity/Vol] 20 U/L Normal 7-40 The [facility] Comment on above: Performed By: #### C H8, HEPATIC #### [facility] [address] [place], Bilirubin [Mass/Vol] 0.6 mg/dL Normal 0.1-1.[address] [facility] Comment on above: Performed By: #### C H8, HEPATIC #### [facility] [address] [place], [place], Bilirubin.direct [Mass/Vol] 0.13 mg/dL Normal 0.10-0.30 The [facility] Comment on above: Performed By: #### C H8, HEPATIC #### [facility] [address] [place], [place], Protein [Mass/Vol] 6.4 g/dL Normal 5.7-8.1 The [facility] Comment on above: Performed By: #### C H8, HEPATIC #### [facility] [address] [place], [place], HIGH SENSITIVITY TROPONIN Io n 05-16-2022 HS TROPONIN I 319 ng/L Critically high <=15 The [facility] Comment on above: Order Comment: High Sensitivity Cardiac Troponin I (hsTnI) assay has replaced the conventional troponin assay at [facility]. All results are reported in whole numbers representing ng/L. Repeat test times for ruling out acute coronary syndrome (ACS) are every 2 hours instead of every 6-8 hours. Iqawo-de-wesv conventional troponin (I-stat) will remain available in the [facility] [place] [facility] ??? results obtained by different labs [...] #### H STRP #### [facility] [address] [place] [address], [phone] HS TROPONIN I 475 ng/L Critically high <=[address] [facility] Comment on above: Order Comment: High Sensitivity Cardiac Troponin I (hsTnI) assay has replaced the conventional troponin assay at [facility].All results are reported in whole numbers representing ng/L.Repeat test times for ruling out acute coronary syndrome (ACS) are every 2 hours instead of every 6-8 hours.Fgrxa-gg-btgw conventional troponin (I-stat) will remain available in the [facility] [place] [facility] ??? results obtained by different labs [...] value in 2 hours depending on risk [id number] ng/L or greater??? concern for ACS or [...] C H8, HEPATIC #### S PATHOLOGY LABORATORY [address] [place] [address], [phone] HS TROPONIN I 433 ng/L Critically high <=[address] [facility] Comment on above: Order Comment: High Sensitivity Cardiac Troponin I (hsTnI) assay has replaced the conventional troponin assay at [facility].All results are reported in whole numbers representing ng/L.Repeat test times for ruling out acute coronary syndrome (ACS) are every 2 hours instead of every 6-8 hours.Zoopf-cf-yngv conventional troponin (I-stat) will remain available in the [facility] [place] [facility] ??? results obtained by different labs [...] value in 2 hours depending on risk [id number] ng/L or greater??? concern for ACS or [...] = 2 points). Performed By: #### H [facility] [[email or web address]] ####S PATHOLOGY [id number] [place], [address] HS TROPONIN I 714 ng/L Critically high <=[address] [facility] Comment on above: Order Comment: High Sensitivity Cardiac Troponin I (hsTnI) assay has replaced the conventional troponin assay at [facility].All results are reported in whole numbers representing ng/L.Repeat test times for ruling out acute coronary syndrome (ACS) are every 2 hours instead of every 6-8 hours.Pthcg-eh-hoxw conventional troponin (I-stat) will remain available in the [facility] [place] [facility] ??? results obtained by different labs [...] value in 2 hours depending on risk eribdsbadl56 ng/L or greater??? concern for ACS or [...] = 2 points). Performed By: #### M , 8 #### S PATHOLOGY LABORATORY [address] [place] [address], [phone] HS TROPONIN I 706 ng/L Critically high <=[address] [facility] Comment on above: Order Comment: High Sensitivity Cardiac Troponin I (hsTnI) assay has replaced the conventional troponin assay at [facility].All results are reported in whole numbers representing ng/L.Repeat test times for ruling out acute coronary syndrome (ACS) are every 2 hours instead of every 6-8 hours.Ypsfn-lm-fwzi conventional troponin (I-stat) will remain available in the [facility] [place] [facility] ??? results obtained by different labs [...] value in 2 hours depending on risk nmivsylbqr38 ng/L or greater??? concern for ACS or [...] C H8, HEPATIC #### [facility] [address] [place] [address], LACTATE WITH REPEAT EDon CR LACT 1.8 mmol/L Normal 0.5-2.0 [facility] Comment on above: Performed By: #### C H8, HEPATIC #### [facility] [address] [place] [address], PARTIAL THROMBOPLASTIN TIMEo n 05-16-2022 aPTT Coag (Bld) [Time] 55 s High 25-37 Th [facility] Comment on above: Performed By: #### C H8, HEPATIC #### [facility] [address] [place], [place], PROTHROMBIN TIME AND INRon 0 05-16-2022 INR Coag (PPP) [Relative time] 1.10 {INR} Normal 0.90-1.10 [facility] Comment on above: Performed By: #### C H8, HEPATIC #### [facility] [address] [place], [place], PT Coag (PPP) [Time] 12.4 s Normal 9.7-12.9 [facility] Comment on above: Performed By: #### C H8, HEPATIC #### [facility] [address] [place], [place], Procedureson 05-16-2022 [employer] Authentication Interface Message Text Transthoracic Echocardiographic Report Name: JULIEN GARRETT Interpreting LETITIA ELKINS MD Physician: : [id number] Referring JANNETH SAGE Physician: Age: 66 Site Inspector: Laina Mora RDCS Exam Date: 05/16/2022 Fellow: [...] Doctor's order(s) verified. Patient's preferred language is Albanian . Verbal consent for left heart echo [...] physician) on 05/16/2022 12:03 PM Normal [facility] Progress Noteson 05-16-2022 [employer] Authentication Interface Message Text 1509 notified of critical Troponin value of 475. read back critical results. New orders not received. Normal [facility] Die Repairer [employer]ging Authentication Interface Message Text [facility] OF ACUTE CARE SURGERY ---- GENERAL INFORMATION --- EMERGENCY GENERAL SURGERY NOTE Patient Name: Gerry Victoria Admission Date: 05/16/2022 Patient seen and examined on 05/16/2022 -- INTERVAL HISTORY/EVENTS Background Narrative: Gerry Victoria is a 66 year old female with PMH of hypertension, RLS, GERD, and h/o paroxysmal SVT who presented to our community hospital with epigastric pain with nausea and vomiting. Patient describes onset of pain on prior day that has increased since then. Shortly after onset of pain, patient experienced nausea and persistent vomiting, now unable to tolerate PO intake. Denies fevers, chills. She presented to [facility] where EKG demonstrated 'hyperacute T waves' in multiple leads without evidence of STEMI. Troponin originally 139, then 381 on repeat. CTA was performed and did not reveal dissection or PE. CT did demonstrate acute inflammation of the gallbladder with a stone at the neck. A central line was placed for resuscitation purposes and the patient was transferred to [facility] for further evaluation. Prior to transfer, lab work without leukocytosis (10.7) and LFTs/Lipase without abnormality. ACS consulted upon arrival to [facility] for cholecystitis. She was admitted to the SDU for telemetry under EGS. Hospital Course/Procedures: 05/16/2022: Transferred from [facility] ED with cholecystitis, up-trending troponin, and [...] fr (more content not included)... Normal [facility] [facility] TYPE AND SCREENon 05-16-2022 ABO and Rh group Nom (Bld) Blood group A Rh(D) positive Normal [facility] Comment on above: Performed By: #### T S #### [facility] [address] [place], [place], ABO and Rh group Nom (Bld) No Previous Results Normal [facility] Comment on above: Performed By: #### T S #### [facility] [address] [place], [place], ABSC INT Negative Normal [facility] Comment on above: Performed By: #### T S #### [facility] [address] [place], [address] US LIVER/GALL BLADDER/PANCRE ASon 05-16-2022 US LIVER/GALL [...] significant biliary dilatation. MACRO: None Normal [facility] XR CHEST 1 VIEW AP OR [...] other acute process. MACRO: None Normal [facility] Activated partial thrombopla stin time (aPTT) in platelet poor plasma by coagulation aOrdered By: Keith Griffith on 05-15-2022 aPTT Coag (PPP) [Time] 29.6 s 25.1-36.5 [facility] Albumin [Mass/volume] in Ser um or PlasmaOrdered By: Keith Griffith on 05-15-2022 Albumin [Mass/Vol] 4.4 g/dL 3.2-5.5 [facility] Bacterial blood cultureOrder ed By: Keith Griffith on 05-15-2022 Bacteria identified Cx Nom (Bld) NO GROWTH 5 DAYS [facility] Basophils Auto (Bld) [#/Vol] Ordered By: Keith Griffith on 05-15-2022 Basophils (Bld) [#/Vol] 0.1 10*3/uL 0.0-0.2 [facility] Basophils/100 WBC Auto (Bld) Ordered By: Keith Griffith on 05-15-2022 Basophils/100 WBC (Bld) 0.6 % . [facility] Bilirubin Test strip Ql (U)O rdered By: Keith Griffith on 05-15-2022 Bilirubin Ql (U) Negative Negative [facility] Color Auto (U)Ordered By: George Griffith on 05-15-2022 Color (U) Yellow Yellow [facility] Creatine kinase [Enzymatic a ctivity/volume] in Serum or PlasmaOrdered By: Keith Griffith on 05-15-2022 CK [Catalytic activity/Vol] 94 U/L 22-269 [facility] Creatine kinase.MB [Mass/vol ume] in Serum or PlasmaOrdered By: Keith Griffith on 05-15-2022 CK.MB [Mass/Vol] 3.1 ng/mL 0.6-6.3 [facility] Creatinine and Glomerular fi ltration rate.predicted panel (S/P/Bld)Ordered By: Keith Griffith on 05-15-2022 Creatinine [Mass/Vol] 0.98 mg/dL 0.44-1.03 [facility] Direct bilirubin measurement Ordered By: Keith Griffith on 05-15-2022 Bilirubin.direct [Mass/Vol] 0.1 mg/dL 0.0-0.4 [facility] Eosinophils Auto (Bld) [#/Vo l]Ordered By: Keith Griffith on 05-15-2022 Eosinophils (Bld) [#/Vol] 0.0 10*3/uL 0.0-0.45 [facility] Eosinophils/100 WBC Auto (Bl d)Ordered By: Keith Griffith on 05-15-2022 Eosinophils/100 WBC (Bld) 0.3 % . [facility] Erythrocyte distribution wid th Auto (RBC) [Ratio]Ordered By: Keith Griffith on 05-15-2022 Erythrocyte distribution width (RBC) [Ratio] 15.2 % 11.9-15.3 [facility] Estimated glomerular filtrat ion rate (GFR) non- AmericanOrdered By: Keith Griffith on 05-15-2022 GFR/1.73 sq M.predicted among non-blacks MDRD (S/P/Bld) [Vol rate/Area] 56 mL/Min [facility] Globulin Calc (S) [Mass/Vol] Ordered By: Keith Griffith on 05-15-2022 Globulin (S) [Mass/Vol] 3.6 g/dL [facility] Hematocrit Auto (Bld) [Volum e fraction]Ordered By: Keith Griffith on 05-15-2022 Hematocrit (Bld) [Volume fraction] 42.8 % 34.0-46.4 [facility] Hemoglobin [Mass/volume] in BloodOrdered By: Keith Griffith on 05-15-2022 Hemoglobin (Bld) [Mass/Vol] 14.1 g/dL 11.8-15.4 [facility] Ketones Auto test strip (U) [Mass/Vol]Ordered By: Keith Griffith on 05-15-2022 Ketones (U) [Mass/Vol] Negative Negative [facility] Laboratory - Chemistry and C hemistry - challengeOrdered By: Keith Griffith on 05-15-2022 Lipase [Catalytic activity/Vol] 23.0 U/L 22-51 [facility] Natriuretic peptide B (Bld) [Mass/Vol] 365.0 pg/mL 5-100 [facility] Laboratory - CoagulationOrde red By: Keith Griffith on 05-15-2022 PT Coag (PPP) [Time] 10.7 s 9.0-12.9 [facility] Leukocytes [#/volume] correc poly for nucleated erythrocytes in Blood by Automated counOrdered By: Keith Griffith on 05-15-2022 WBC corrected for nucl RBC Auto (Bld) [#/Vol] 10.7 10*3/uL 3.8-11.6 [facility] Lymphocytes Auto (Bld) [#/Vo l]Ordered By: Keith Griffith on 05-15-2022 Lymphocytes (Bld) [#/Vol] 0.9 10*3/uL 1.00-4.8 [facility] Lymphocytes/100 WBC Auto (Bl d)Ordered By: Keith Griffith on 05-15-2022 Lymphocytes/100 WBC (Bld) 8.6 % . [facility] MCH Auto (RBC) [Entitic mass ]Ordered By: Keith Griffith on 05-15-2022 MCH (RBC) [Entitic mass] 27.4 pg 24.7-34.3 [facility] MCHC Auto (RBC) [Mass/Vol]Or dered By: Keith Griffith on 05-15-2022 MCHC (RBC) [Mass/Vol] 33.0 g/dL 32.0-35.0 [facility] MCV Auto (RBC) [Entitic vol] Ordered By: Keith Griffith on 05-15-2022 MCV (RBC) [Entitic vol] 83.0 fL 80-100 [facility] Monocyte distribution width [Entitic volume] in Blood by AutomatedOrdered By: Keith Griffith on 05-15-2022 Monocyte distribution width Auto (Bld) [Entitic vol] 15.42 % 0.00-20.00 [facility] Monocytes Auto (Bld) [#/Vol] Ordered By: Keith Griffith on 05-15-2022 Monocytes (Bld) [#/Vol] 0.5 10*3/uL 0.0-0.8 [facility] Monocytes/100 WBC Auto (Bld) Ordered By: Keith Griffith on 05-15-2022 Monocytes/100 WBC (Bld) 4.2 % . [facility] Neutrophils Auto (Bld) [#/Vo l]Ordered By: Keith Griffith on 05-15-2022 Neutrophils (Bld) [#/Vol] 9.3 10*3/uL 1.8-7.7 [facility] Neutrophils/100 WBC Auto (Bl d)Ordered By: Keith Griffith on 05-15-2022 Neutrophils/100 WBC (Bld) 86.3 % . [facility] Nitrite Test strip Ql (U)Ord ered By: Keith Griffith on 05-15-2022 Nitrite Ql (U) Negative Negative [facility] No Panel InformationOrdered By: Keith Griffith on 05-15-2022 Estimated GFR () > 60 mL/Min [facility] Comment on above: GFR estimated refere nce range: According to KDOQI guidelines, <60 ml/min/1.73m2 is sufficient to diagnose a patient with chronic kidney disease. Pharmacy Creatinine Clearance (Chem 51.97 [facility] Nucleated erythrocytes [Pres ence] in Blood by Automated countOrdered By: Keith Griffith on 05-15-2022 Nucleated RBC Auto Ql (Bld) 0.1 /100{WBC} 0-0.5 [facility] Platelet mean volume Auto (B ld) [Entitic vol]Ordered By: Keith Griffith on 05-15-2022 Platelet mean volume (Bld) [Entitic vol] 7.6 fL 6.3-10.7 [facility] Platelet poor plasma interna tional normalized ratio (INR) by coagulation assay (relatOrdered By: Keith Griffith on 05-15-2022 INR Coag (PPP) [Relative time] 0.9 {INR} [facility] Comment on above: INR Therapeutic Rang [...] 05-15-2022 Platelets (Bld) [#/Vol] 332 10*3/uL 150-450 [facility] Protein Auto test strip (U) [Mass/Vol]Ordered By: Keith Griffith on 05-15-2022 Protein (U) [Mass/Vol] Negative [facility] [Mass/volume] in Ser um or PlasmaOrdered By: Keith Griffith on 05-15-2022 Protein [Mass/Vol] 8.0 g/dL 6.1-7.9 [facility] RBC Auto (Bld) [#/Vol]Ordere d By: Keith Griffith on 05-15-2022 RBC (Bld) [#/Vol] 5.16 10*6/uL 3.60-5.00 [facility] Serum or plasma alanine kirkpatrick otransferase measurement without P-5'-P (enzymatic activiOrdered By: Keith Griffith on 05-15-2022 ALT No additional P-5'-P [Catalytic activity/Vol] 17 U/L 10-60 [facility] Serum or plasma albumin/glob ulin mass ratioOrdered By: Keith Griffith on 05-15-2022 Albumin/Globulin [Mass ratio] 1.2 {ratio} [facility] Serum or plasma alkaline kami sphatase measurement (enzymatic activity/volume)Ordered By: Keith Griffith on 05-15-2022 ALP [Catalytic activity/Vol] 92 U/L 32-92 [facility] Serum or plasma anion gap de terminationOrdered By: Keith Griffith on 05-15-2022 Anion gap [Moles/Vol] 13.5 mmol/L 6.0-15.0 [facility] Serum or plasma aspartate am inotransferase measurement (enzymatic activity/volume)Ordered By: Keith Griffith 05-15-2022 AST [Catalytic activity/Vol] 26 U/L 10-42 [facility] Serum or plasma calcium ventura urement (mass/volume)Ordered By: Keith Griffith on 05-15-2022 Calcium [Mass/Vol] 8.9 mg/dL 8.2-10.2 [facility] Serum or plasma chloride alfie surement (moles/volume)Ordered By: Keith Griffith on 05-15-2022 Chloride [Moles/Vol] 98 mmol/L 95-114 [facility] Serum or plasma creatine kin ase MB (CKMB)/total creatine kinase (CK) ratio by calculaOrdered By: Keith Griffith on 05-15-2022 CK.MB Calc [Catalytic fraction] 3.2 % 0.00-2.50 [facility] Serum or plasma glucose ventura urement (mass/volume)Ordered By: Keith Griffith on 05-15-2022 Glucose [Mass/Vol] 126 mg/dL 70-100 [facility] Comment on above: ADA recommended refe rence rangeRandom Glucose Reference Range is dependent on time and content of last meal. Glucose of more than 200 mg/dL in a nonstressed, ambulatory subject supports the diagnosis of Diabetes Mellitus. Serum or plasma non-glucuron idated bilirubin measurement (mass/volume)Ordered By: Keith Griffith on 05-15-2022 Bilirubin.indirect [Mass/Vol] 0.5 mg/dL [facility] Serum or plasma potassium me asurement (moles/volume)Ordered By: Keith Griffith on 05-15-2022 Potassium [Moles/Vol] 3.2 mmol/L 3.5-5.1 [facility] Serum or plasma sodium measu rement (moles/volume)Ordered By: Keith Griffith on 05-15-2022 Sodium [Moles/Vol] 134 mmol/L 136-146 [facility] Serum or plasma total biliru bin measurement (mass/volume)Ordered By: Keith Griffith 05-15-2022 Bilirubin [Mass/Vol] 0.6 mg/dL 0.3-1.2 [facility] Serum or plasma total carbon dioxide measurement (moles/volume)Ordered By: Keith Griffith 05-15-2022 CO2 [Moles/Vol] 25.7 mmol/L 22.0-30.0 [facility] Serum or plasma urea nitroge n measurement (mass/volume)Ordered By: Keith Griffith 05-15-2022 Urea nitrogen [Mass/Vol] 7 mg/dL 9-23 [facility] Specific gravity Auto test s trip (U) [Rel density]Ordered By: Keith Griffith on 05-15-2022 Specific gravity (U) [Rel density] 1.045 1.001-1.03 0 [facility] Troponin I.cardiac [Mass/vol ume] in Serum or Plasma by High sensitivity methodOrdered By: Keith Griffith 05-15-2022 Troponin I.cardiac High sensitivity method [Mass/Vol] 381 pg/mL 0-15 [facility] Comment on above: Critical valueresult calledat 2153 on 05/15/22 Urine clarity by refractomet ry automatedOrdered By: Keith Griffith on 05-15-2022 Clarity Refractometry automated (U) Clear Clear [facility] Urine glucose measurement by automated test strip (mass/volume)Ordered By: Keith Griffith on 05-15-2022 Glucose Auto test strip (U) [Mass/Vol] Normal mg/dL Normal [facility] Urine hemoglobin detection b y automated test stripOrdered By: Keith Griffith on 05-15-2022 Hemoglobin Auto test strip Ql (U) Negative Negative [facility] Urine lactic acid measuremen tOrdered By: Keith Griffith on 05-15-2022 Lactate (U) [Moles/Vol] 1.5 mmol/L 0.5-2.2 [facility] Urine leukocyte esterase det ection by automated test stripOrdered By: Keith Griffith on 05-15-2022 Leukocyte esterase Auto test strip Ql (U) Negative Negative [facility] Urobilinogen Auto test strip (U) [Mass/Vol]Ordered By: Keith Griffith on 05-15-2022 Urobilinogen (U) [Mass/Vol] Normal mg/dL Normal [facility] WBC Auto (Bld) [#/Vol]Ordere d By: Keith Griffith on 05-15-2022 WBC (Bld) [#/Vol] 10.7 10*3/uL 3.8-11.6 [facility] pH Auto test strip (U)Ordere d By: Keith Griffith on 05-15-2022 pH (U) 7.0 [pH] 5.0-9.0 [facility] Basophils Auto (Bld) [#/Vol] Ordered By: Ward Zuniga on 01-03-2022 Basophils (Bld) [#/Vol] 0.0 10*3/uL 0.0-0.2 [facility] Basophils/100 WBC Auto (Bld) Ordered By: Ward Zuniga on 01-03-2022 Basophils/100 WBC (Bld) 0.9 % . [facility] Blood hemoglobin measurement (mass/volume)Ordered By: Ward Zuniga on 01-03-2022 Hemoglobin (Bld) [Mass/Vol] 11.2 g/dL 11.8-15.4 [facility] Blood leukocytes automated c ount (number/volume)Ordered By: Ward Zuniga on 01-03-2022 WBC (Bld) [#/Vol] 4.8 10*3/uL 4.5-11.0 [facility] Body fluid albumin measureme nt (mass/volume)Ordered By: Ward Zuniga on 01-03-2022 Albumin (Body fld) [Mass/Vol] 3.6 g/dL 3.2-5.5 [facility] Cholesterol [Mass/volume] in Serum or PlasmaOrdered By: Ward Zuniga on 01-03-2022 Cholesterol [Mass/Vol] 186 mg/dL 140-200 [facility] Comment on above: Chol less than 200 m g/dl low riskChol 201-239 mg/dl borderline riskChol 240 mg/dl and greater high risk Cholesterol in LDL Calc [Mas s/Vol]Ordered By: Ward Zuniga on 01-03-2022 Cholesterol in LDL [Mass/Vol] 117 mg/dL 0-100 [facility] Comment on above: LDL ATP III CLASSIFI CATIONLDL less than 100 mg/dL OptimalLDL 100-129 mg/dL Near or above optimalLDL 130-159 mg/dL Borderline highLDL 160-189 mg/dL HighLDL greater than 189 mg/dL Very high Cholesterol in VLDL Calc [Ma ss/Vol]Ordered By: Ward Zuniga on 01-03-2022 Cholesterol in VLDL [Mass/Vol] 18 mg/dL [facility] Creatinine and Glomerular fi ltration rate.predicted panel (S/P/Bld)Ordered By: Ward Zuniga on 01-03-2022 Creatinine [Mass/Vol] 0.91 mg/dL 0.44-1.03 [facility] Eosinophils Auto (Bld) [#/Vo l]Ordered By: Ward Zuniga on 01-03-2022 Eosinophils (Bld) [#/Vol] 0.1 10*3/uL 0.0-0.45 [facility] Eosinophils/100 WBC Auto (Bl d)Ordered By: Ward Zuniga on 01-03-2022 Eosinophils/100 WBC (Bld) 2.6 % . [facility] Erythrocyte distribution wid th Auto (RBC) [Ratio]Ordered By: Ward Znuiga on 01-03-2022 Erythrocyte distribution width (RBC) [Ratio] 14.4 % 11.9-15.3 [facility] Estimated glomerular filtrat ion rate (GFR) non- AmericanOrdered By: Ward Zuniga on 01-03-2022 GFR/1.73 sq M.predicted among non-blacks MDRD (S/P/Bld) [Vol rate/Area] > 60 mL/Min [facility] Globulin Calc (S) [Mass/Vol] Ordered By: Ward Zuniga on 01-03-2022 Globulin (S) [Mass/Vol] 2.5 g/dL [facility] Hematocrit Auto (Bld) [Volum e fraction]Ordered By: Ward Zuniga on 01-03-2022 Hematocrit (Bld) [Volume fraction] 34.5 % 34.0-46.4 [facility] Laboratory - Hematology and Cell countsOrdered By: Ward Zuniga on 01-03-2022 Nucleated RBC/100 WBC (Bld) [Ratio] 0.1 % 0-0.5 [facility] Lymphocytes Auto (Bld) [#/Vo l]Ordered By: Ward Zuniga on 01-03-2022 Lymphocytes (Bld) [#/Vol] 1.6 10*3/uL 1.00-4.8 [facility] Lymphocytes/100 WBC Auto (Bl d)Ordered By: Ward Zuniga on 01-03-2022 Lymphocytes/100 WBC (Bld) 33.6 % . [facility] MCH Auto (RBC) [Entitic mass ]Ordered By: Ward Zuniga on 01-03-2022 MCH (RBC) [Entitic mass] 26.9 pg 24.7-34.3 [facility] MCHC Auto (RBC) [Mass/Vol]Or dered By: Ward Zuniga on 01-03-2022 MCHC (RBC) [Mass/Vol] 32.6 g/dL 32.0-35.0 [facility] MCV Auto (RBC) [Entitic vol] Ordered By: Ward Zuniga on 01-03-2022 MCV (RBC) [Entitic vol] 82.4 fL 80-100 [facility] Monocytes Auto (Bld) [#/Vol] Ordered By: Ward Zuniga on 01-03-2022 Monocytes (Bld) [#/Vol] 0.4 10*3/uL 0.0-0.8 [facility] Monocytes/100 WBC Auto (Bld) Ordered By: Ward Zuniga on 01-03-2022 Monocytes/100 WBC (Bld) 7.5 % . [facility] Neutrophils Auto (Bld) [#/Vo l]Ordered By: Ward Zuniga on 01-03-2022 Neutrophils (Bld) [#/Vol] 2.6 10*3/uL 1.8-7.7 [facility] Neutrophils/100 WBC Auto (Bl d)Ordered By: Ward Zuniga on 01-03-2022 Neutrophils/100 WBC (Bld) 55.4 % . [facility] No Panel InformationOrdered By: Ward Zuniga on 01-03-2022 Estimated GFR () > 60 mL/Min [facility] Comment on above: GFR estimated refere nce range: According to KDOQI guidelines, <60 ml/min/1.73m2 is sufficient to diagnose a patient with chronic kidney disease. Pharmacy Creatinine Clearance (Chem N/A [facility] Platelet mean volume Auto (B ld) [Entitic vol]Ordered By: Ward Zuniga on 01-03-2022 Platelet mean volume (Bld) [Entitic vol] 7.5 fL 6.3-10.7 [facility] Platelets Auto (Bld) [#/Vol] Ordered By: Ward Zuniga on 01-03-2022 Platelets (Bld) [#/Vol] 288 10*3/uL 150-450 [facility] Protein [Mass/volume] in Ser um or PlasmaOrdered By: Ward Zuniga on 01-03-2022 Protein [Mass/Vol] 6.1 g/dL 6.1-7.9 [facility] RBC Auto (Bld) [#/Vol]Ordere d By: Ward Zuniga on 01-03-2022 RBC (Bld) [#/Vol] 4.18 10*6/uL 3.60-5.00 [facility] Serum or plasma alanine kirkpatrick otransferase measurement without P-5'-P (enzymatic activiOrdered By: Ward Zuniga on 01-03-2022 ALT No additional P-5'-P [Catalytic activity/Vol] 12 U/L 1060 [facility] Serum or plasma albumin/glob ulin mass ratioOrdered By: Ward Zuniga on 01-03-2022 Albumin/Globulin [Mass ratio] 1.4 {ratio} [facility] Serum or plasma alkaline kami sphatase measurement (enzymatic activity/volume)Ordered By: Ward Zuniga on 01-03-2022 ALP [Catalytic activity/Vol] 65 U/L 32-92 [facility] Serum or plasma anion gap de terminationOrdered By: Ward Zuniga on 01-03-2022 Anion gap [Moles/Vol] 15.0 mmol/L 6.0-15.0 [facility] Serum or plasma aspartate am inotransferase measurement (enzymatic activity/volume)Ordered By: Ward Zuniga on 01-03-2022 AST [Catalytic activity/Vol] 16 U/L 10 [facility] Serum or plasma calcium ventura urement (mass/volume)Ordered By: Ward Zuniga on 01-03-2022 Calcium [Mass/Vol] 8.9 mg/dL 8.2-10.2 [facility] Serum or plasma chloride alfie surement (moles/volume)Ordered By: Ward Zuniga on 01-03-2022 Chloride [Moles/Vol] 101 mmol/L 95-114 [facility] Serum or plasma glucose ventura urement (mass/volume)Ordered By: Ward Zuniga on 01-03-2022 Glucose [Mass/Vol] 86 mg/dL 70-100 [facility] Comment on above: ADA recommended refe rence rangeRandom Glucose Reference Range is dependent on time and content of last meal. Glucose of more than 200 mg/dL in a nonstressed, ambulatory subject supports the diagnosis of Diabetes Mellitus. Serum or plasma high density lipoprotein (HDL) cholesterol measurementOrdered By: Ward Zuniga on 01-03-2022 Cholesterol in HDL [Mass/Vol] 51 mg/dL 35-85 [facility] Comment on above: HDL CHOL ATP-III CLA SSIFICATION Cardiovascular RiskHDL > or equal to 60 mg/dL LOWHDL < 40 mg/dL HIGH Serum or plasma potassium me asurement (moles/volume)Ordered By: Ward Zuniga on 01-03-2022 Potassium [Moles/Vol] 4.0 mmol/L 3.5-5.1 [facility] Serum or plasma sodium measu rement (moles/volume)Ordered By: Ward Zuniga on 01-03-2022 Sodium [Moles/Vol] 140 mmol/L 136-146 [facility] Serum or plasma total biliru bin measurement (mass/volume)Ordered By: Ward Zuniga on 01-03-2022 Bilirubin [Mass/Vol] 0.5 mg/dL 0.3-1.2 [facility] Serum or plasma total carbon dioxide measurement (moles/volume)Ordered By: Ward Zuniga on 01-03-2022 CO2 [Moles/Vol] 28.0 mmol/L 22.0-30.0 [facility] Serum or plasma total choles terol/high density lipoprotein (HDL) cholesterol mass ratOrdered By: Ward Zuniga on 01-03-2022 Cholesterol.total/Chol esterol in HDL [Mass ratio] 3.6 {ratio} <5.0 [facility] Serum or plasma urea nitroge n measurement (mass/volume)Ordered By: Ward Zuniga on 01-03-2022 Urea nitrogen [Mass/Vol] 6 mg/dL 9-23 [facility] TSH DL <= 0.005 mIU/L QnOrde red By: Ward Zuniga on 01-03-2022 TSH Qn 0.17 m[IU]/L 0.45-5.33 [facility] Triglyceride [Mass/volume] i n Serum or PlasmaOrdered By: Ward Zuniga on 01-03-2022 Triglyceride [Mass/Vol] 91 mg/dL 35-149 [facility] Comment on above: TRIG ATP III CLASSIF ICATIONTRIG less than 150 mg/dL NormalTRIG 150-199 mg/dL Borderline highTRIG 200-500 mg/dL High TRIG greater than 500 mg/dL Very highStandard traceable to the Center for Disease Conrtrol and Prevention (CDC) test method. COVID-19 Positive/NegativeOr dered By: Molina Villanueva on 12-15-2021 SARS-CoV-2 (COVID-19) N gene ROXANA+probe Ql (Resp) Negative Negative [facility] Comment on above: Testing for SARS-CoV -2 by RT-PCR This test was developed and its performance characteristics determined by [employer] (BD) and validated at the [facility]. This test has not been FDA [...] and its performance characteristics determined by [employer] (BD) and validated at the [facility]. This test has not been FDA [...] 07-05-2021 BUN/CREA 11 NOT APPLICABLE Normal 6-22 [facility] Risk And Insurance Consultant Comment on above: Order Comment: [facility] Testing performed at: [facility], [address] [facility], [address] [place] [address], [address] [place] [address], [employer]: Alli Parker MD [facility] Collection Date/Time: [facility] Results Received Date/Time: [facility] Reported Date/Time: Performed By: #### T LUIS, [id number] #### [facility] Default [address] [place] [address] Calcium [Mass/Vol] 8.9 mg/dL Normal 8.6-10.4 [facility] Risk And Insurance Consultant Comment on above: Order Comment: [facility] Testing performed at: [facility], [address] [facility], [address] [place] [address], [address] [place] [address], [employer]: Alli Parker MD [facility] Collection Date/Time: [facility] Results Received Date/Time: [facility] Reported Date/Time: Performed By: #### T LUIS, [id number] #### [facility] Default [address] [place] [address] Chloride [Moles/Vol] 101 mmol/L Normal 98-110 [facility] Specialist Comment on above: Order Comment: [facility] Testing performed at: [facility], [address] [facility], [address] [place] [address], [address] [place] [address], [employer]: Alli Parker MD [facility] Collection Date/Time: [facility] Results Received Date/Time: [facility] Reported Date/Time: Performed By: #### T SH, [id number] #### [facility] Default [address] [place] [address] CO2 [Moles/Vol] 30 mmol/L Normal 20-32 [facility] Risk And Insurance Consultant Comment on above: Order Comment: [facility] Testing performed at: [facility], [address] [facility], [address] [place] [address], [address] [place] [address], [employer]: Alli Parker MD [facility] Collection Date/Time: [facility] Results Received Date/Time: [facility] Reported Date/Time: Performed By: #### T LUIS, [id number] #### [facility] Default [address] [place] [address] Creatinine [Mass/Vol] 0.94 mg/dL Normal 0.50-0.99 [facility] Risk And Insurance Consultant Comment on above: Order Comment: [facility] Testing performed at: [employer], [address] [place] [address], [address] [place] [address], [address] [place] [address], [employer]: Alli Parker MD [facility] Collection Date/Time: [facility] Results Received Date/Time: [facility] Reported Date/Time: Result Comment: For patients >49 years of age, the reference limit for Creatinine is approximately 13% higher for people identified as -[place]. Performed By: #### T LUIS, [id number] #### [facility] Default [address] [place] [address] eGFRAA ([facility]) 73 mL/min/1.73m2 Normal > OR = 60 [facility] Risk And Insurance Consultant Comment on above: Order Comment: [facility] Testing performed at: [employer], [facility], [address] [place] [address], [address] [place] [address], [address] [place] [address], [employer]: Alli Parker MD [facility] Collection Date/Time: [facility] Results Received Date/Time: [facility] Reported Date/Time: Performed By: #### T LUIS, [id number] #### [facility] Default [address] [place] [address] eGFRNAA ([facility]) 63 mL/min/1.73m2 Normal > OR = 60 [facility] Risk And Insurance Consultant Comment on above: Order Comment: [facility] Testing performed at: [employer], [facility], [address] [place] [address], [address] [place] [address], [address] [place] [address], [employer]: Alli Parker MD [facility] Collection Date/Time: [facility] Results Received Date/Time: [facility] Reported Date/Time: Performed By: #### T LUIS, [id number] #### [facility] Default [address] [place] [address] Glucose [Mass/Vol] 82 mg/dL Normal 65-99 Ashley bacon [place] [employer] Consultant Comment on above: Order Comment: [facility] Testing performed at: [employer], [facility], [address] [place] [address], [address] [place] [address], [address] [place] [address], [employer]: Alli Parker MD [facility] Collection Date/Time: [facility] Results Received Date/Time: [facility] Reported Date/Time: Result Comment: Fasting reference interval Performed By: #### Cornelius SMITH, [id number] #### [facility] Default [address] [place] [address] Potassium [Moles/Vol] 4.3 mmol/L Normal 3.5-5.3 Lula castelan [place] [employer] Consultant Comment on above: Order Comment: [facility] Testing performed at: [facility], [address] [place] [address], [address] [place] [address], [address] [place] [address], [employer]: Alli Parker MD [facility] Date/Time: [facility] Results Received Date/Time: [facility] Reported Date/Time: Performed By: #### T LUIS, [id number] #### [facility] Default [address] [place] [address] Sodium [Moles/Vol] 138 mmol/L Normal 135-146 Ashley bacon [place] [employer] Consultant Comment on above: Order Comment: [facility] performed at: [employer], [facility], [address] [facility], [address] [place] [address], [address] [place] [address], [employer]: Alli Parker MD [facility] Date/Time: [facility] Results Received Date/Time: [facility] Reported Date/Time: Performed By: #### Cornelius SMITH, [id number] #### [facility] Default [address] [place] [address] Urea nitrogen [Mass/Vol] 10 mg/dL Normal 7-25 [facility] Risk And Insurance Consultant Comment on above: Order Comment: [facility] performed at: [employer], [facility], [address] [facility], [address] [place] [address], [address] [place] [address], [employer]: Alli Parker MD [facility] Date/Time: [facility] Results Received Date/Time: [facility] Reported Date/Time: Performed By: #### Cornelius SMITH, [id number] #### [facility] Default [address] [place] [address] TSHon 07-05-2021 TSH Qn 0.07 m[IU]/L Low 0.40-4.50 [facility] Risk And Insurance Consultant Comment on above: Order Comment: [facility] performed at: [employer], [facility], [address] [facility] , [address] [place] [address], [address] [place] [address], [employer]: Alli Parker MD [facility] Date/Time: [facility] Results Received Date/Time: [facility] Reported Date/Time: Performed By: #### Cornelius SMITH, [id number] #### [facility] Default [address] [place] [address] Screening Mammogram, [facility] 03-02-2021 Screening Mammogram, Bilateral EXAMINATION: Screening Mammogram [...] VERY IMPORTANT TO YOUR HEALTH. THE CURRENT [place] [employer] GUIDELINES RECOMMEND ANNUAL MAMMOGRAPHY BEGINNING AT AGE 40. THIS FACILITY UTILIZES A REMINDER SYSTEM TO ENSURE ALL PATIENTS RECEIVE A REMINDER NOTIFICATION AT THE APPROPRIATE TIME BASED ON THE RECOMMENDATIONS OF THIS EXAM. 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 ACCREDITED BY THE [facility] AND FDA. Report reported and signed by Eladia Aviles on 03/03/2021 0945 Normal [facility] Risk And Insurance Consultant COVID-19 Positive/Negativeon 07-13-2020 SARS-CoV-2 (COVID-19) N gene ROXANA+probe Ql (Resp) Negative Negative [facility] Comment on above: Reference: NegativeT esting for SARS-CoV-2 by RT-PCRThis test was developed and its performance characteristics determined by [employer], [employer] & [employer] and validated at the [facility]. This test has not been FDA [...] (COVID-19) RNA ROXANA+probe Ql (Unsp spec) N/A [facility] Albumin [Mass/volume] in Ser um or Plasmaon 06-30-2020 Albumin [Mass/Vol] 3.6 g/dL 3.2-5.5 [facility] Basophils Auto (Bld) [#/Vol] on 06-30-2020 Basophils (Bld) [#/Vol] 0.0 10*3/uL 0.0-0.2 [facility] Basophils/100 WBC Auto (Bld) on 06-30-2020 Basophils/100 WBC (Bld) 0.8 % [facility] Bilirubin Auto test strip Ql (U)on 06-30-2020 Bilirubin Ql (U) Negative Negative [facility] Blood hemoglobin measurement (mass/volume)on 06-30-2020 Hemoglobin (Bld) [Mass/Vol] 12.1 g/dL 11.8-15.4 [facility] Blood leukocytes automated c ount (number/volume)on 06-30-2020 WBC (Bld) [#/Vol] 4.6 10*3/uL 4.5-11.0 [facility] Cholesterol [Mass/volume] in Serum or Plasmaon 06-30-2020 Cholesterol [Mass/Vol] 202 mg/dL 140-200 [facility] Comment on above: Chol less than 200 m g/dl low riskChol 201-239 mg/dl borderline riskChol 240 mg/dl and greater high risk Cholesterol in LDL Calc [Mas s/Vol]on 06-30-2020 Cholesterol in LDL [Mass/Vol] 134 mg/dL 0-100 [facility] Comment on above: LDL ATP III CLASSIFI CATIONLDL less than 100 mg/dL OptimalLDL 100-129 mg/dL Near or above optimalLDL 130-159 mg/dL Borderline highLDL 160-189 mg/dL HighLDL greater than 189 mg/dL Very high Cholesterol in VLDL Calc [Ma ss/Vol]on 06-30-2020 Cholesterol in VLDL [Mass/Vol] 25 mg/dL [facility] Creatinine and Glomerular fi ltration rate.predicted panel (S/P/Bld)on 06-30-2020 Creatinine [Mass/Vol] 0.84 mg/dL 0.44-1.03 [facility] Eosinophils Auto (Bld) [#/Vo l]on 06-30-2020 Eosinophils (Bld) [#/Vol] 0.1 10*3/uL 0.0-0.45 [facility] Eosinophils/100 WBC Auto (Bl d)on 06-30-2020 Eosinophils/100 WBC (Bld) 2.5 % [facility] Erythrocyte distribution wid th Auto (RBC) [Ratio]on 06-30-2020 Erythrocyte distribution width (RBC) [Ratio] 15.4 % 11.9-15.3 [facility] GFR/1.73 sq M.predicted anthony g non-blacks MDRD (S/P/Bld) [Vol rate/Area]on 06-30-2020 GFR/1.73 sq M predicted among non-blacks MDRD (S/P/Bld) [Vol rate/Area] > 60 mL/Min [facility] Globulin Calc (S) [Mass/Vol] on 06-30-2020 Globulin (S) [Mass/Vol] 2.3 g/dL [facility] Hematocrit Auto (Bld) [Volum e fraction]on 06-30-2020 Hematocrit (Bld) [Volume fraction] 35.9 % 34.0-46.4 [facility] Ketones Auto test strip (U) [Mass/Vol]on 06-30-2020 Ketones (U) [Mass/Vol] Negative Negative [facility] Lymphocytes Auto (Bld) [#/Vo l]on 06-30-2020 Lymphocytes (Bld) [#/Vol] 1.4 10*3/uL 1.00-4.8 [facility] Lymphocytes/100 WBC Auto (Bl d)on 06-30-2020 Lymphocytes/100 WBC (Bld) 31.2 % [facility] MCH Auto (RBC) [Entitic mass ]on 06-30-2020 MCH (RBC) [Entitic mass] 28.9 pg 24.7-34.3 [facility] MCHC Auto (RBC) [Mass/Vol]on 06-30-2020 MCHC (RBC) [Mass/Vol] 33.7 g/dL 32.0-35.0 [facility] MCV Auto (RBC) [Entitic vol] on 06-30-2020 MCV (RBC) [Entitic vol] 85.9 fL 80-100 [facility] Monocytes Auto (Bld) [#/Vol] on 06-30-2020 Monocytes (Bld) [#/Vol] 0.3 10*3/uL 0.0-0.8 [facility] Monocytes/100 WBC Auto (Bld) on 06-30-2020 Monocytes/100 WBC (Bld) 7.6 % [facility] Neutrophils Auto (Bld) [#/Vo l]on 06-30-2020 Neutrophils (Bld) [#/Vol] 2.7 10*3/uL 1.8-7.7 [facility] Neutrophils/100 WBC Auto (Bl d)on 06-30-2020 Neutrophils/100 WBC (Bld) 57.9 % [facility] No Panel Informationon 06-30 Estimated GFR () > 60 mL/Min [facility] Comment on above: GFR estimated refere nce range: According to KDOQI guidelines, <60 ml/min/1.73m2 is sufficient to diagnose a patient with chronic kidney disease. Otheron 06-30-2020 GFR/1.73 sq M.predicted MDRD (S/P/Bld) [Vol rate/Area] > 60 mL/Min [facility] Comment on above: GFR estimated refere nce range: According to KDOQI guidelines, <60 ml/min/1.73m2 is sufficient to diagnose a patient with chronic kidney disease. Nucleated RBC/100 WBC (Bld) [Ratio] 0.1 % 0-0.5 [facility] Creatinine Clearance (Chem N/A [facility] Platelet mean volume Auto (B ld) [Entitic vol]on 06-30-2020 Platelet mean volume (Bld) [Entitic vol] 7.8 fL 6.3-10.7 [facility] Platelets Auto (Bld) [#/Vol] on 06-30-2020 Platelets (Bld) [#/Vol] 244 10*3/uL 150-450 [facility] Protein Auto test strip (U) [Mass/Vol]on 06-30-2020 Protein (U) [Mass/Vol] Negative Negative [facility] Protein [Mass/volume] in Ser um or Plasmaon 06-30-2020 Protein [Mass/Vol] 5.9 g/dL 6.1-7.9 [facility] RBC Auto (Bld) [#/Vol]on RBC (Bld) [#/Vol] 4.18 10*6/uL 3.60-5.00 [facility] Serum or plasma alanine kirkpatrick otransferase measurement without P-5'-P (enzymatic activion 06-30-2020 ALT No additional P-5'-P [Catalytic activity/Vol] 16 U/L 10-60 [facility] Serum or plasma albumin/glob ulin mass ratioon 06-30-2020 Albumin/Globulin [Mass ratio] 1.6 {ratio} [facility] Serum or plasma alkaline kami sphatase measurement (enzymatic activity/volume)on 06-30-2020 ALP [Catalytic activity/Vol] 63 U/L 32-92 [facility] Serum or plasma aspartate am inotransferase measurement (enzymatic activity/volume)on 06-30-2020 AST [Catalytic activity/Vol] 20 U/L 10-42 [facility] Serum or plasma calcium ventura urement (mass/volume)on 06-30-2020 Calcium [Mass/Vol] 8.7 mg/dL 8.2-10.2 [facility] Serum or plasma chloride alfie surement (moles/volume)on 06-30-2020 Chloride [Moles/Vol] 101 mmol/L 95-114 [facility] Serum or plasma glucose ventura urement (mass/volume)on 06-30-2020 Glucose [Mass/Vol] 90 mg/dL 70-100 [facility] Comment on above: ADA recommended refe rence rangeRandom Glucose Reference Range is dependent on time and content of last meal. Glucose of more than 200 mg/dL in a nonstressed, ambulatory subject supports the diagnosis of Diabetes Mellitus. Serum or plasma high density lipoprotein (HDL) cholesterol measurementon 06-30-2020 Cholesterol in HDL [Mass/Vol] 42 mg/dL 35-85 [facility] Comment on above: HDL CHOL ATP-III CLA SSIFICATION Cardiovascular RiskHDL > or equal to 60 mg/dL LOWHDL < 40 mg/dL HIGH Serum or plasma potassium me asurement (moles/volume)on 06-30-2020 Potassium [Moles/Vol] 4.1 mmol/L 3.5-5.1 [facility] Serum or plasma sodium measu rement (moles/volume)on 06-30-2020 Sodium [Moles/Vol] 139 mmol/L 136-146 [facility] Serum or plasma thyroid stim ulating hormone (TSH) measurement by high sensitivity meton 06-30-2020 TSH Qn 1.63 u[iU]/mL 0.45-5.33 [facility] Serum or plasma total biliru bin measurement (mass/volume)on 06-30-2020 Bilirubin [Mass/Vol] 0.6 mg/dL 0.3-1.2 [facility] Serum or plasma total carbon dioxide measurement (moles/volume)on 06-30-2020 CO2 [Moles/Vol] 28.7 mmol/L 22.0-30.0 [facility] Serum or plasma total choles terol/high density lipoprotein (HDL) cholesterol mass bentley 06-30-2020 Cholesterol.total/Chol esterol in HDL [Mass ratio] 4.8 {ratio} [facility] Serum or plasma urea nitroge n measurement (mass/volume)on 06-30-2020 Urea nitrogen [Mass/Vol] 5 mg/dL 9-23 [facility] TSH DL <= 0.005 mIU/L Qnon 0 06-30-2020 TSH Qn 1.63 m[IU]/L 0.45-5.33 [facility] Triglyceride [Mass/volume] i n Serum or Plasmaon 06-30-2020 Triglyceride [Mass/Vol] 128 mg/dL 35-149 [facility] Comment on above: TRIG ATP III CLASSIF ICATIONTRIG less than 150 mg/dL NormalTRIG 150-199 mg/dL Borderline highTRIG 200-500 mg/dL High TRIG greater than 500 mg/dL Very highStandard traceable to the Center for Disease Conrtrol and Prevention (CDC) test method. Urine appearanceon Appearance (U) Clear Clear [facility] Urine coloron 06-30-2020 Color (U) Yellow Yellow [facility] Urine glucose measurement by automated test strip (mass/volume)on 06-30-2020 Glucose Auto test strip (U) [Mass/Vol] Normal mg/dL Normal [facility] Urine hemoglobin detection b y automated test stripon 06-30-2020 Hemoglobin Auto test strip Ql (U) Negative Negative [facility] Hemoglobin Auto test strip Ql (U) Negative Negative [facility] Urine ketones measurement by automated test strip (mass/volume)on 06-30-2020 Ketones (U) [Mass/Vol] Negative Negative [facility] Urine leukocyte esterase det ection by automated test stripon 06-30-2020 Leukocyte esterase Auto test strip Ql (U) Negative Negative [facility] Leukocyte esterase Auto test strip Ql (U) Negative Negative [facility] Urine nitrite detection by a utomated test stripon 06-30-2020 Nitrite Auto test strip Ql (U) Negative Negative [facility] Nitrite Auto test strip Ql (U) Negative Negative [facility] Urine protein measurement by automated test strip (mass/volume)on 06-30-2020 Protein (U) [Mass/Vol] Negative Negative [facility] Urine total bilirubin detect ion by automated test stripon 06-30-2020 Bilirubin Ql (U) Negative Negative [facility] Urobilinogen Auto test strip (U) [Mass/Vol]on 06-30-2020 Urobilinogen (U) [Mass/Vol] Normal mg/dL Normal [facility] pH Auto test strip (U)on pH (U) 5.5 [pH] 5.0-9.0 [facility] pH (U) 1.030 [pH] 1.001-1.03 0 [facility] Amphetamines screenon 2020 Amphetamines Ql (U) Negative Negative [facility] Cannabinoids [Presence] in U rine by Screen methodon 03-31-2020 Cannabinoids Screen Ql (U) Positive Negative [facility] Comment on above: These are unconfirme d results and should not be used for legal purposes. Drug Cut-Off Concentration: AMPH 1000 ng/mL JUNIE 200 ng/mL SABRA 200 ng/mL COCM 300 ng/mL OP 300 ng/mL PCP 25 ng/mL THC 20 ng/mL Urinalysison 03-31-2020 Opiates Ql (U) Negative Negative [facility] Urine barbiturates detection on 03-31-2020 Barbiturates Ql (U) Negative Negative [facility] Urine benzodiazepines detect ionon 03-31-2020 Benzodiazepines Ql (U) Negative Negative [facility] Urine cocaine detectionon Cocaine Ql (U) Negative Negative [facility] Urine phencyclidine detectio n by screening methodon 03-31-2020 Phencyclidine Ql (U) Negative Negative [facility] COVID-19 SOFIAon 03-30-2020 COVID-19 SHELBI Negative Negative [facility] Comment on above: This is a duplicate test result based off of the Shelbi SARS Antigen (MILDRED) test performed within the Microbiology department. Otheron 03-30-2020 SARS Antigen (LFIA) [facility] Vital Signs Date Time Vital Sign Value Performing Clinician Facility 01-09-2024 11:34-0400 Body mass index (BMI) [Ratio] 33.32 kg/m2 Ty Ahuja [employer] Work Phone: [facility] 01-09-2024 11:34-0400 Body weight 80 kg Ty Ahuja [employer] Work Phone: [facility] 01-09-2024 11:34-0400 Diastolic blood pressure 82 mm[Hg] Ty Ahuja [employer] Work Phone: [facility] 01-09-2024 11:34-0400 Heart rate 66 /min Ty Ahuja [employer] Work Phone: [facility] 01-09-2024 11:34-0400 Systolic blood pressure 183 mm[Hg] Ty Ahuja [employer] Work Phone: [facility] 11-06-2023 11:06-0400 Body height 154.94 cm DO Ward Zuniga Work Phone: [facility] 11-06-2023 11:06-0400 Body mass index (BMI) [Ratio] 33 kg/m2 DO Ward Zuniga Work Phone: [facility] 11-06-2023 11:06-0400 Body weight 79.37 kg DO Ward Zuniga Work Phone: [facility] 11-06-2023 10:49-0400 Body temperature 96.6 [degF] DO Ward Zuniga Work Phone: [facility] 11-06-2023 10:49-0400 Diastolic blood pressure 66 mm[Hg] DO Ward Zuniga Work Phone: [facility] 11-06-2023 10:49-0400 Heart rate 70 /min DO Ward Zuniga Work Phone: [facility] 11-06-2023 10:49-0400 Respiratory rate 18 /min DO Ward Zuniga Work Phone: [facility] 11-06-2023 10:49-0400 Systolic blood pressure 155 mm[Hg] DO Ward Zuniga Work Phone: [facility] 05-09-2023 13:13-0500 Body mass index (BMI) [Ratio] 31.97 kg/m2 Ward Zuniga DO Work Phone: [facility] 05-09-2023 13:13-0500 Body weight 78.02 kg Ward Zuniga DO Work Phone: [facility] 05-09-2023 13:13-0500 Heart rate 77 /min Ward Zuniga DO Work Phone: [facility] 05-09-2023 13:13-0500 SaO2% (BldA) [Mass fraction] 97 % Ward Zuniga DO Work Phone: [facility] 05-08-2023 13:10-0500 Diastolic blood pressure 68 mm[Hg] Jaja Reddy MD Work Phone: [facility] 05-08-2023 13:10-0500 Heart rate 57 /min Jaja Reddy MD Work Phone: [facility] 05-08-2023 13:10-0500 Respiratory rate 12 /min Jaja Reddy MD Work Phone: [facility] 05-08-2023 13:10-0500 SaO2% (BldA) [Mass fraction] 88 % Jaja Reddy MD Work Phone: [facility] 05-08-2023 13:10-0500 Systolic blood pressure 126 mm[Hg] Jaja Reddy MD Work Phone: [facility] 05-08-2023 12:46-0500 Body temperature 97 [degF] Jaja Reddy MD Work Phone: [facility] 03-13-2023 14:26-0500 Body temperature 97.7 [degF] DO Ward Zuniga Work Phone: [facility] 03-13-2023 14:26-0500 Diastolic blood pressure 68 mm[Hg] DO Ward Zuniga Work Phone: [facility] 03-13-2023 14:26-0500 Heart rate 84 /min DO Ward Zuniga Work Phone: [facility] 03-13-2023 14:26-0500 Respiratory rate 18 /min DO Ward Zuniga Work Phone: [facility] 03-13-2023 14:26-0500 Systolic blood pressure 148 mm[Hg] DO Ward Zuniga Work Phone: [facility] 03-02-2023 13:09-0500 Blood Pressure Location Ketty [facility] 03-02-2023 13:09-0500 Body temperature 96.98 [degF] Ketty Orzech [facility] 03-02-2023 13:09-0500 Diastolic blood pressure 81 mm[Hg] Ketty Orzech [facility] 03-02-2023 13:09-0500 Heart rate 71 /min Ketty Orzech [facility] 03-02-2023 13:09-0500 Systolic blood pressure 128 mm[Hg] Ketty Orzech [facility] 02-27-2023 14:36-0500 Body height 154.94 cm DO Ward Zach Work Phone: [facility] 02-27-2023 14:36-0500 Body mass index (BMI) [Ratio] 31.1 kg/m2 DO Ward Zach Work Phone: [facility] 02-27-2023 14:36-0500 Body weight 74.84 kg DO Ward Zach Work Phone: [facility] 01-04-2023 13:32-0400 Body height 154.94 cm DO Ward Zach Work Phone: [facility] 01-04-2023 13:32-0400 Body mass index (BMI) [Ratio] 31.1 kg/m2 DO Ward Zach Work Phone: [facility] 01-04-2023 13:32-0400 Body weight 74.84 kg DO Ward Zach Work Phone: [facility] 01-04-2023 13:19-0400 Diastolic blood pressure 92 mm[Hg] DO Ward Zach Work Phone: [facility] 01-04-2023 13:19-0400 Heart rate 82 /min DO Ward Zach Work Phone: [facility] 01-04-2023 13:19-0400 Respiratory rate 18 /min DO Ward Zach Work Phone: [facility] 01-04-2023 13:19-0400 Systolic blood pressure 160 mm[Hg] DO Ward Zach Work Phone: [facility] 01-02-2023 09:45-0400 Body height 154.94 cm Ward Mtz Other [employer] Other 01-02-2023 09:45-0400 Body mass index (BMI) [Ratio] 32.12 kg/m2 Ward Mtz Other [employer] Other 01-02-2023 09:45-0400 Body temperature 97.8 [degF] Ward Morenorer Other [employer] Other 01-02-2023 09:45-0400 Body weight 77.11 kg Ward Carmonar Other [employer] Other 01-02-2023 09:45-0400 Diastolic blood pressure 62 mm[Hg] Ward Morenorer Other [employer] Other 01-02-2023 09:45-0400 SaO2% (BldA) [Mass fraction] 97 % Ward Morenorer Other [employer] Other 01-02-2023 09:45-0400 Systolic blood pressure 116 mm[Hg] Ward Morenorer Other [employer] Other 12-21-2022 13:01-0400 Body temperature 98.4 [degF] DO Ward Zuniga Work Phone: [facility] 12-17-2022 09:00-0400 Diastolic blood pressure 68 mm[Hg] DO Ward Zach Work Phone: [facility] 12-17-2022 09:00-0400 Heart rate 64 /min DO Ward Zach Work Phone: [facility] 12-17-2022 09:00-0400 Respiratory rate 20 /min DO Ward Zach Work Phone: [facility] 12-17-2022 09:00-0400 SaO2% (BldA) [Mass fraction] 95 % DO Ward Zach Work Phone: [facility] 12-17-2022 09:00-0400 Systolic blood pressure 138 mm[Hg] DO Wardjaquelin Zuniga Work Phone: [facility] 12-17-2022 07:42-0400 Body temperature 98.9 [degF] DO Ward Zuniga Work Phone: [facility] 12-07-2022 11:11-0400 Body height 154.94 cm DO Ward Zuniga Work Phone: [facility] 12-07-2022 11:11-0400 Body mass index (BMI) [Ratio] 31.1 kg/m2 DO Ward Zuniga Work Phone: [facility] 12-07-2022 11:11-0400 Body weight 74.84 kg DO Ward Zuniga Work Phone: [facility] 12-07-2022 11:01-0400 Body temperature 97.2 [degF] DO Ward Zuniga Work Phone: [facility] 12-07-2022 11:01-0400 Diastolic blood pressure 74 mm[Hg] DO Ward Zuniga Work Phone: [facility] 12-07-2022 11:01-0400 Heart rate 67 /min DO Ward Zuniga Work Phone: [facility] 12-07-2022 11:01-0400 Respiratory rate 18 /min DO Ward Zuniga Work Phone: [facility] 12-07-2022 11:01-0400 Systolic blood pressure 146 mm[Hg] DO Wardjaquelin Zuniga Work Phone: [facility] 11-04-2022 10:54-0400 Body height 154.94 cm DO Ward Zuniga Work Phone: [facility] 11-04-2022 10:54-0400 Body temperature 99.2 [degF] DO Ward Zach Work Phone: [facility] 11-04-2022 10:54-0400 Body weight 70.3 kg DO Ward Zuniga Work Phone: [facility] 11-04-2022 10:54-0400 Diastolic blood pressure 71 mm[Hg] DO Ward Zuniga Work Phone: [facility] 11-04-2022 10:54-0400 Heart rate 78 /min DO Ward Zuniga Work Phone: [facility] 11-04-2022 10:54-0400 Respiratory rate 18 /min DO Ward Zuniga Work Phone: [facility] 11-04-2022 10:54-0400 SaO2% (BldA) [Mass fraction] 99 % DO Ward Zuniga Work Phone: [facility] 11-04-2022 10:54-0400 Systolic blood pressure 159 mm[Hg] DO Ward Zuniga Work Phone: [facility] 10-26-2022 09:42-0400 Body height 154.94 cm DO Ward Zuniga Work Phone: [facility] 10-26-2022 09:42-0400 Body mass index (BMI) [Ratio] 31.1 kg/m2 DO Ward Zuniga Work Phone: [facility] 10-26-2022 09:42-0400 Body weight 74.84 kg DO Ward Zuniga Work Phone: [facility] 10-26-2022 09:28-0400 Body temperature 98.4 [degF] DO Wardjaquelin Zuniga Work Phone: [facility] 10-26-2022 09:28-0400 Diastolic blood pressure 88 mm[Hg] DO Ward Zuniga Work Phone: [facility] 10-26-2022 09:28-0400 Heart rate 93 /min DO Ward Zuniga Work Phone: [facility] 10-26-2022 09:28-0400 Respiratory rate 24 /min DO Ward Zuniga Work Phone: [facility] 10-26-2022 09:28-0400 Systolic blood pressure 132 mm[Hg] DO Ward Zuniga Work Phone: [facility] 10-24-2022 09:45-0400 Body height 154.94 cm Wardjaquelin Mtz Other [employer] Other 10-24-2022 09:45-0400 Body mass index (BMI) [Ratio] 31.74 kg/m2 Wardjaquelin Morenorer Other [employer] Other 10-24-2022 09:45-0400 Body temperature 97.4 [degF] Ward Morenoresilvia Other [employer] Other 10-24-2022 09:45-0400 Body weight 76.2 kg Ward Romanalbinresilvia Other [employer] Other 10-24-2022 09:45-0400 Diastolic blood pressure 70 mm[Hg] Ward Morenorer Other [employer] Other 10-24-2022 09:45-0400 SaO2% (BldA) [Mass fraction] 97 % Ward Morenorer Other [employer] Other 10-24-2022 09:45-0400 Systolic blood pressure 118 mm[Hg] Ward Buehrer Other [employer] Other 09-27-2022 08:26-0400 Diastolic blood pressure 56 mm[Hg] Ronobir RANDY [facility] 09-27-2022 08:26-0400 Heart rate 55 /min Ronobir RANDY [facility] 09-27-2022 08:26-0400 Respiratory rate 18 /min Ronobir RANDY [facility] [facility] 09-27-2022 08:26-0400 SaO2% (BldA) [Mass fraction] 99 % Ronobir RANDY [facility] 09-27-2022 08:26-0400 Systolic blood pressure 110 mm[Hg] Ronobir RANDY [facility] 09-27-2022 05:58-0400 Diastolic blood pressure 59 mm[Hg] Ronobir RANDY [facility] 09-27-2022 05:58-0400 Heart rate 64 /min Ronobir RANDY [facility] 09-27-2022 05:58-0400 Respiratory rate 18 /min Ronobir RANDY [facility] 09-27-2022 05:58-0400 SaO2% (BldA) [Mass fraction] 95 % Ronobir RANDY [facility] 09-27-2022 05:58-0400 Systolic blood pressure 108 mm[Hg] Ronobir RANDY [facility] 09-27-2022 04:58-0400 Diastolic blood pressure 61 mm[Hg] Ronobir RANDY [facility] 09-27-2022 04:58-0400 Heart rate 66 /min Ronobir RANDY [facility] 09-27-2022 04:58-0400 Respiratory rate 18 /min Ronobir RANDY [facility] 09-27-2022 04:58-0400 SaO2% (BldA) [Mass fraction] 97 % Usamaobir RANDY [facility] 09-27-2022 04:58-0400 Systolic blood pressure 111 mm[Hg] Usamaobir RANDY [facility] 09-26-2022 23:15-0400 Body temperature 98.96 [degF] Maliha ADKINSICK [facility] 07-26-2022 14:31-0400 Heart rate 76 /min Talon Mcbride [facility] 07-26-2022 14:31-0400 SaO2% (BldA) [Mass fraction] 98 % Talon Gastonsh [facility] 07-26-2022 14:30-0400 Diastolic blood pressure 84 mm[Hg] Talon Gastonsh [facility] 07-26-2022 14:30-0400 Mean blood pressure 111 mm[Hg] Talon Gastonsh [facility] 07-26-2022 14:30-0400 Systolic blood pressure 166 mm[Hg] Talon Mcbride [facility] 07-26-2022 14:30-0400 Respiratory rate 16 /min Talon Mcbride [facility] 07-26-2022 12:53-0400 Heart rate 73 /min Talon Gastonsh [facility] 07-26-2022 12:53-0400 SaO2% (BldA) [Mass fraction] 98 % Talon Gastonsh [facility] 07-26-2022 12:52-0400 Diastolic blood pressure 75 mm[Hg] Talon Gastonsh [facility] 07-26-2022 12:52-0400 Mean blood pressure 99 mm[Hg] Talon Mcbride [facility] 07-26-2022 12:52-0400 Systolic blood pressure 148 mm[Hg] Talon Mcbride [facility] 07-26-2022 12:52-0400 SaO2% (BldA) [Mass fraction] 95 % Talon Mcbride [facility] 07-26-2022 12:43-0400 Body temperature 97.88 [degF] Talon Gastonsh [facility] 07-26-2022 12:43-0400 Diastolic blood pressure 63 mm[Hg] Talon Gastonsh [facility] 07-26-2022 12:43-0400 Heart rate 63 /min Talon Gastonsh [facility] 07-26-2022 12:43-0400 Mean blood pressure 86 mm[Hg] Talon Gastonsh [facility] 07-26-2022 12:43-0400 Respiratory rate 15 /min Talon Gastonsh [facility] 07-26-2022 12:43-0400 Systolic blood pressure 131 mm[Hg] Talon Mcbride [facility] 07-26-2022 12:30-0400 Mean blood pressure 93 mm[Hg] Talon Mcbride [facility] 07-26-2022 12:30-0400 Respiratory rate 16 /min Talon Gastonsh [facility] 07-26-2022 12:15-0400 Mean blood pressure 112 mm[Hg] Talon Gastonsh [facility] 07-26-2022 12:15-0400 Respiratory rate 15 /min Talon Gastonsh [facility] 07-26-2022 11:46-0400 Body temperature 97.34 [degF] Talon Gastonsh [facility] 07-26-2022 11:40-0400 Respiratory rate 21 /min Talon Gastonsh [facility] 07-26-2022 11:35-0400 Respiratory rate 14 /min Talon Gastonsh [facility] 07-26-2022 06:00-0400 Body temperature 98.06 [degF] Talon Gastonsh [facility] 07-26-2022 06:00-0400 Mean blood pressure 101 mm[Hg] Talon Gastonsh [facility] 07-26-2022 06:00-0400 Heart rate 68 /min Talon Gastonsh [facility] 07-26-2022 05:58-0400 Blood Pressure Location Talon Gastonsh [facility] 07-18-2022 13:31-0400 Diastolic blood pressure 72 mm[Hg] Talon Gastonsh [facility] 07-18-2022 13:31-0400 Heart rate 61 /min Talon Gastonsh [facility] 07-18-2022 13:31-0400 Mean blood pressure 89 mm[Hg] Talon Gastonsh [facility] 07-18-2022 13:31-0400 Systolic blood pressure 123 mm[Hg] Talon Gastonsh [facility] 07-18-2022 13:31-0400 Heart rate 64 /min Talon Gastonsh [facility] 07-18-2022 13:31-0400 SaO2% (BldA) [Mass fraction] 99 % Talon Gastonsh [facility] 07-18-2022 13:31-0400 Respiratory rate 17 /min Talon Mcbride [facility] 07-18-2022 13:30-0400 Diastolic blood pressure 69 mm[Hg] Talon Mcbride [facility] 07-18-2022 13:30-0400 Mean blood pressure 86 mm[Hg] Talon Mcbride [facility] 07-18-2022 13:30-0400 Systolic blood pressure 121 mm[Hg] Talon Mcbride [facility] 07-13-2022 14:45-0400 Body height 154.[address] [facility] 07-13-2022 14:45-0400 Body mass index (BMI) [Ratio] 31.01 kg/m2 Trauma Resident [facility] 07-13-2022 14:45-0400 Body temperature 97.3 [degF] Trauma Resident [facility] 07-13-2022 14:45-0400 Body weight 74.[address] [facility] 07-13-2022 14:45-0400 Diastolic blood pressure 69 mm[Hg] Trauma Resident [facility] 07-13-2022 14:45-0400 Heart rate 69 /min Trauma Resident [facility] 07-13-2022 14:45-0400 Respiratory rate 16 /min Trauma Resident [facility] 07-13-2022 14:45-0400 SaO2% (BldA) [Mass fraction] 100 % Trauma Resident [facility] 07-13-2022 14:45-0400 Systolic blood pressure 159 mm[Hg] Trauma Resident [facility] 07-05-2022 14:45-0400 Diastolic blood pressure 54 mm[Hg] 1 [facility] 07-05-2022 14:45-0400 Heart rate 75 /min 1 [facility] 07-05-2022 14:45-0400 Respiratory rate 16 /min 1 [facility] 07-05-2022 14:45-0400 SaO2% (BldA) [Mass fraction] 97 % 1 [facility] 07-05-2022 14:45-0400 Systolic blood pressure 125 mm[Hg] 1 [facility] 07-05-2022 13:00-0400 Body height 154.[address] [facility] 07-05-2022 13:00-0400 Body mass index (BMI) [Ratio] 31.55 kg/m2 1 [facility] 07-05-2022 13:00-0400 Body temperature 98.6 [degF] 1 [facility] 07-05-2022 13:00-0400 Body weight 75.[address] [facility] 06-30-2022 08:58-0400 Body height 154.94 cm Ward Zuniga Work Phone: [facility] [employer] [address] DO Work Phone: 06-30-2022 08:58-0400 Body mass index (BMI) [Ratio] 31.08 kg/m2 Ward Zuniga Work Phone: [facility] Work Phone: 06-30-2022 08:58-0400 Body surface area Derived from formula 1.74 m2 Ward Zuniga Work Phone: [facility] [employer] 600 DO Work Phone: 06-30-2022 08:58-0400 Body weight 74.62 kg Ward Zuniga Work Phone: [facility] Work Phone: 06-30-2022 08:58-0400 Diastolic blood pressure 78 mm[Hg] Ward Zuniga Work Phone: [facility] DO Work Phone: 06-30-2022 08:58-0400 Diastolic blood pressure 80 mm[Hg] Ward Zuniga Work Phone: [facility] DO Work Phone: 06-30-2022 08:58-0400 Heart rate 77 /min Ward Zuniga Work Phone: [facility] 600 DO Work Phone: 06-30-2022 08:58-0400 Systolic blood pressure 128 mm[Hg] Ward Zuniga Work Phone: [facility] 600 DO Work Phone: 06-30-2022 08:58-0400 Systolic blood pressure 132 mm[Hg] [facility] Work Phone: 06-22-2022 19:00-0400 Body height 154.94 cm DO Ward Zuniga Work Phone: [facility] 06-22-2022 19:00-0400 Body temperature 97.7 [degF] DO Ward Zuniga Work Phone: [facility] 06-22-2022 19:00-0400 Body weight 73 kg DO Ward Zuniga Work Phone: [facility] 06-22-2022 19:00-0400 Diastolic blood pressure 76 mm[Hg] DO Ward Zuniga Work Phone: [facility] 06-22-2022 19:00-0400 Heart rate 94 /min DO Ward Zuniga Work Phone: [facility] 06-22-2022 19:00-0400 Respiratory rate 18 /min DO Ward Zuniga Work Phone: [facility] 06-22-2022 19:00-0400 SaO2% (BldA) [Mass fraction] 98 % DO Ward Zuniga Work Phone: [facility] 06-22-2022 19:00-0400 Systolic blood pressure 139 mm[Hg] DO Ward Zuniga Work Phone: [facility] 06-15-2022 13:10-0400 Body height 154.9 cm Trauma [facility] 06-15-2022 13:10-0400 Body mass index (BMI) [Ratio] 31.57 kg/m2 Trauma Resident [facility] 06-15-2022 13:10-0400 Body weight 75.[address] [facility] 06-15-2022 13:10-0400 Diastolic blood pressure 68 mm[Hg] Trauma Resident [facility] 06-15-2022 13:10-0400 Heart rate 92 /min Trauma Resident [facility] 06-15-2022 13:10-0400 Respiratory rate 19 /min Trauma Resident [facility] 06-15-2022 13:10-0400 SaO2% (BldA) [Mass fraction] 97 % Trauma Resident [facility] 06-15-2022 13:10-0400 Systolic blood pressure 118 mm[Hg] Trauma Resident [facility] 05-16-2022 00:50-0500 Body temperature 98.3 [degF] DO Ward Zuniga Work Phone: [facility] 05-16-2022 00:50-0500 Diastolic blood pressure 79 mm[Hg] DO Ward Zuniga Work Phone: [facility] 05-16-2022 00:50-0500 Heart rate 82 /min DO Ward Zuniga Work Phone: [facility] 05-16-2022 00:50-0500 Inhaled oxygen flow rate 3 L/min DO Ward Zuniga Work Phone: [facility] 05-16-2022 00:50-0500 Respiratory rate 20 /min DO Ward Zuniga Work Phone: [facility] 05-16-2022 00:50-0500 SaO2% (BldA) [Mass fraction] 96 % DO Ward Zuniga Work Phone: [facility] 05-16-2022 00:50-0500 Systolic blood pressure 147 mm[Hg] DO Wardjaquelin Zuniga Work Phone: [facility] 05-15-2022 17:14-0500 Body height 154.94 cm DO Ward Zuniga Work Phone: [facility] 05-15-2022 17:14-0500 Body weight 78.1 kg DO Ward Zuniga Work Phone: [facility] 12-07-2021 09:30-0400 Body height 154.94 cm Balwinder Debsarah Other [facility] [employer] Other 12-07-2021 09:30-0400 Body mass index (BMI) [Ratio] 33.06 kg/m2 aBlwinder Parker Other [facility] [employer] Other 12-07-2021 09:30-0400 Body weight 79.38 kg Balwinder Parker Other [employer] Other 12-07-2021 09:30-0400 Diastolic blood pressure 63 mm[Hg] Balwinder Parker Other [employer] [facility] [employer] Other 12-07-2021 09:30-0400 Systolic blood pressure 113 mm[Hg] Balwinder Parker Other [facility] [employer] Other 12-07-2021 09:01-0400 Body weight 0 kg DO Ward Zuniga Work Phone: [facility] 11-30-2021 13:23-0400 Blood Pressure Location MARYCARMEN ELIJAH [facility] 11-30-2021 13:23-0400 Diastolic blood pressure 73 mm[Hg] MARYCARMEN ELIJAH [facility] 11-30-2021 13:23-0400 Heart rate 69 /min MARYCARMEN ELIJAH [facility] 11-30-2021 13:23-0400 Systolic blood pressure 132 mm[Hg] MARYCARMEN ELIJAH [facility] 07-29-2021 11:08-0400 Blood Pressure Location MARYCARMEN NAVA [facility] 07-29-2021 11:08-0400 Diastolic blood pressure 84 mm[Hg] MARYCARMEN NAVA [facility] 07-29-2021 11:08-0400 Heart rate 77 /min MARYCARMEN NAVA [facility] 07-29-2021 11:08-0400 Systolic blood pressure 132 mm[Hg] MARYCARMEN NAVA [facility] 07-01-2021 14:45-0400 Body height 154.94 cm Balwinder Parker Other [employer] [facility] [employer] Other 07-01-2021 14:45-0400 Body mass index (BMI) [Ratio] 36.09 kg/m2 Balwinder Parker Other [employer] Other 07-01-2021 14:45-0400 Body weight 86.64 kg Balwinder Parker Other [employer] Other 02-23-2021 11:45-0500 Body height 154.94 cm Ward Mtz Other [employer] Other 02-23-2021 11:45-0500 Body mass index (BMI) [Ratio] 34.95 kg/m2 Ward Mtz Other [employer] Other 02-23-2021 11:45-0500 Body temperature 96.7 [degF] Ward Mtz Other [employer] Other 02-23-2021 11:45-0500 Body weight 83.92 kg Ward Mtz Other [employer] Other 02-23-2021 11:45-0500 Diastolic blood pressure 80 mm[Hg] Ward Carmonasilvia Other [employer] Other 02-23-2021 11:45-0500 SaO2% (BldA) [Mass fraction] 98 % Ward Mtz Other [employer] Other 02-23-2021 11:45-0500 Systolic blood pressure 138 mm[Hg] Ward Morenosantiago Other [employer] Other 12-29-2020 11:40-0400 Body height 154.94 cm Michael Colunga Other [employer] Other 12-29-2020 11:40-0400 Body mass index (BMI) [Ratio] 34.95 kg/m2 Michael Colunga Other [employer] Other 12-29-2020 11:40-0400 Body weight 83.92 kg Michael Colunga Other [employer] Other 12-29-2020 11:40-0400 Diastolic blood pressure 68 mm[Hg] Michael Colunga Other [employer] Other 12-29-2020 11:40-0400 Systolic blood pressure 116 mm[Hg] Michael Colunga Other [employer] Other 03-31-2020 08:55-0500 BP Diastolic 80 mm[Hg] [facility] 03-31-2020 08:55-0500 BP Systolic 145 mm[Hg] [facility] 03-31-2020 08:55-0500 Pulse (Heart Rate) 65 /min [facility] 03-31-2020 08:55-0500 Pulse Oximetry 99 % [facility] 03-31-2020 08:55-0500 Respiratory Rate 16 /min [facility] 03-31-2020 07:10-0500 BMI (Body Mass Index) 33.6 kg/m2 [facility] 03-31-2020 07:10-0500 Body weight 82.1 kg [facility] 03-31-2020 07:10-0500 Height 156.21 cm [facility] Encounters Encounter Date Encounter Type Care Provider Facility Start: 03-14-2024 ambulatory MARYCARMEN Lay ty:ROSS Leal Start: 01-09-2024 ambulatory WARD ZUNIGA Facility:[facility] Start: 01-09-2024 End: 01-09-2024 Subsequent hospital visit by physician [facility] Work Phone: [facility] Radiology General Comment on above: Constipation, unspec ified constipation type [K59.00] Start: 01-09-2024 End: 01-09-2024 ambulatory TY AHUJA Facility:[facility] Start: 01-09-2024 End: 01-09-2024 Office outpatient visit 25 minutes Ty Ahuja PA-C Work Phone: Gastroenterology Comment on above: Constipation, unspec ified constipation type (Primary Dx); Gastroesophageal reflux disease without esophagitis Start: 01-08-2024 ambulatory Adelia Saldana Facility:[facility] Start: 12-28-2023 End: 12-28-2023 Refdeborah Rome LPN [facility] Comment on above: Other chronic pain Start: 11-14-2023 End: 11-14-2023 ambulatory WARD ZUNIGA Not Available Start: 11-07-2023 End: 11-07-2023 Patient encounter procedure DO Ward Zuniga Work Phone: [facility] [place] Work Phone: Start: 11-07-2023 End: 11-07-2023 ambulatory DO Ward Zuniga Work Phone: [facility] Work Phone: Start: 11-06-2023 End: 11-06-2023 ambulatory DO Ward Zuniga Work Phone: [facility] Work Phone: Start: 11-06-2023 End: 11-06-2023 Discharged Recurring DO Ward Zuniga Work Phone: [facility] [place] Work Phone: Start: 11-06-2023 Registered Recurring DO Lyndsey Zuniga Work Phone: [facility] [place] Work Phone: Start: 08-01-2023 End: 08-01-2023 ambulatory JAI ARCHER Not Available Start: 07-10-2023 End: 07-10-2023 ambulatory VICTORIA MARSHALL Not Available Start: 06-23-2023 End: 06-23-2023 ambulatory UMANG ALEX Not Available Start: 06-20-2023 End: 06-20-2023 ambulatory UMANG ALEX Not Available Start: 06-15-2023 End: 06-15-2023 ambulatory TAMIKO TOM Not Available Start: 06-06-2023 End: 06-06-2023 ambulatory UMANG ALEX Not Available Start: 06-01-2023 End: 06-01-2023 ambulatory ANGELITA Vogel [facility] Not Available Start: 05-25-2023 End: 05-25-2023 ambulatory ANGELITA L [facility] Not Available Start: 05-18-2023 End: 05-18-2023 ambulatory TAMIKO NEGRO Not Available Start: 05-16-2023 End: 05-16-2023 ambulatory ANGELITA Vogel [facility] Not Available Start: 05-12-2023 End: 05-12-2023 ambulatory UMANG JOHNSON Not Available Start: 05-10-2023 End: 05-10-2023 ambulatory Angelita Vogel [facility] [facility] Work Phone: [facility] Comment on above: Internal derangement of left shoulder (Primary Dx) Start: 05-09-2023 Chart abstracting Angelita Vogel [facility] [place] [facility] Work Phone: [facility] Start: 05-09-2023 End: 05-09-2023 Office outpatient visit 25 minutes Ward Zuniga DO Work Phone: [facility] IM Comment on above: Primary hypertension (CMS/HCC) (Primary Dx); Unspecified inflammatory spondylopathy, 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 Start: 05-08-2023 End: 05-08-2023 Subsequent hospital visit by physician Jaja Reddy MD Work Phone: Procedures Comment on above: Epigastric pain [R10 .13] Start: 05-04-2023 Bamboo flowsheet Tamiko Fosterk [employer] [facility] Start: 05-04-2023 Bamboo flowsheet Tamikokourtney Fosterk [employer]SE OPER[employer] [facility] Start: 05-04-2023 End: 05-04-2023 ambulatory TAMIKO TOM Not Available Start: 05-03-2023 Telephone encounter Jaja wahl MD Work Phone: Gastroenterology Comment on above: Pre-Op Teaching Start: 05-02-2023 End: 05-02-2023 ambulatory Angelita Carbone PT Work Phone: [facility] PT Comment on above: Internal derangement of left shoulder Start: 04-20-2023 End: 04-20-2023 ambulatory CONNIE LEARY Not Available Start: 04-19-2023 End: 04-19-2023 ambulatory JAJA REDDY Facility:[facility] Start: 04-17-2023 End: 04-17-2023 ambulatory VICTORIA MARSHALL Not Available Start: 04-11-2023 End: 04-11-2023 ambulatory CONNIE LEARY Not Available Start: 03-22-2023 End: 03-22-2023 ambulatory CONNIE LEARY Not Available Start: 03-13-2023 End: 03-13-2023 ambulatory DO Ward Zuniga Work Phone: [facility] Work Phone: Start: 03-13-2023 End: 03-13-2023 Discharged Recurring DO Ward Zuniga Work Phone: [facility] [place] Work Phone: Start: 03-02-2023 End: 03-03-2023 ambulatory Ketty Alicia Facility:[facility] Start: 03-02-2023 End: 03-02-2023 Patient encounter procedure Ketty X Orzech [facility] [place] Start: 03-01-2023 End: 03-01-2023 ambulatory CONNIE LEARY Not Available Start: 02-22-2023 End: 02-22-2023 ambulatory CONNIE LEARY Not Available Start: 02-07-2023 End: 02-07-2023 ambulatory WARD ZUNIGA Not Available Start: 01-04-2023 End: 01-04-2023 Discharged Recurring DO Ward Zuniga Work Phone: [facility] [place] Work Phone: Start: 01-02-2023 End: 01-02-2023 ambulatory Ward Mtz Other [employer] Other Start: 01-02-2023 Office outpatient vi sit 25 minutes Ward Mtz [facility] Start: 12-17-2022 End: 12-17-2022 Emergency department patient visit DO Ward Zuniga Work Phone: [facility] Work Phone: Start: 12-07-2022 Registered Recurring DO Lyndsey Zuniga Work Phone: [facility] [place] Work Phone: Start: 12-03-2022 Letter encounter Lalo lancaster Start: 11-04-2022 End: 11-04-2022 ambulatory DO Ward Zuniga Work Phone: [facility] Work Phone: Start: 11-04-2022 End: 11-04-2022 Patient encounter procedure DO Ward Zuniga Work Phone: [facility] [place] Work Phone: Start: 11-04-2022 End: 11-04-2022 Emergency department patient visit DO Ward Zuniga Work Phone: [facility] Work Phone: Start: 10-26-2022 Registered Recurring DO Lyndsey max Zuniga Work Phone: [facility] [place] Work Phone: Start: 10-24-2022 End: 10-24-2022 ambulatory Ward Mtz Other [employer] Other Start: 10-24-2022 Office outpatient vi sit 25 minutes Ward ARMENDARIZ Vascular Surgery Start: 09-27-2022 End: 09-27-2022 ambulatory Maliha PADILLA Facility:[facility] Start: 09-26-2022 End: 09-27-2022 Emergency department patient visit Maliha PADILLA [facility] Start: 09-06-2022 End: 09-06-2022 Patient encounter procedure DO Ward Zuniga Work Phone: [facility] [place] Work Phone: Start: 08-30-2022 Letter encounter Lalo lancaster Start: 08-05-2022 End: 08-06-2022 ambulatory Talon Mcbride Facility:[facility] Start: 08-05-2022 End: 08-05-2022 Patient encounter procedure Zulay Junior [facility] Start: 07-26-2022 End: 07-26-2022 ambulatory Talon Mcbride Facility:[facility] Start: 07-26-2022 End: 07-26-2022 Admission to [facility] surgery [facility] Talon Mcbride [facility] Start: 07-18-2022 End: 07-19-[address] Ward Zuniga Facility:[facility] Start: 07-18-2022 End: 07-18-2022 Patient encounter procedure Talon Zeina Mcbride [facility] Start: 07-13-2022 End: 07-13-2022 ambulatory NIKITA HEIN Facility:[facility] Start: 07-13-2022 End: 07-13-2022 Office outpatient visit 10 minutes Trauma Surgery Resident [facility] Trauma Surgery Comment on above: Acute cholecystitis (Primary Dx); Body mass index (BMI) 31.0-31.9, adult Start: 07-13-2022 [facility] Nikita Hein MD Work Phone: [facility] Trauma Surgery Start: 07-07-2022 Orders Only Jai Aguilera RN [facility] Start: 07-06-2022 ambulatory Kendra Harrison RN [facility] Comment on above: Advice/health educat ion Start: 07-06-2022 Telephone encounter Jai Aguilera RN [facility] Start: 07-05-2022 End: 07-06-2022 ambulatory NIKITA HEIN Facility:[facility] Start: 07-05-2022 Telephone encounter Taniya cat Work Phone: [facility] Trauma Surgery Start: 07-05-2022 End: 07-05-2022 Subsequent hospital visit by physician Ip/Op Angio 1 [facility] Radiology Comment on above: Acute cholecystitis Start: 06-30-2022 Office consultation new/estab patient 60 min Ward Zuniga Work Phone: [facility] 600 DO Work Phone: Start: 06-30-[address] Natan Marinelli Facility: Start: 06-27-2022 Telephone encounter Taniya cat Work Phone: [facility] Trauma Surgery Start: 06-22-2022 End: 06-22-2022 Emergency department patient visit DO Ward Zuniga Work Phone: [facility] Work Phone: Start: 06-20-2022 Orders Only Jai Aguilera RN [facility] Start: 06-17-2022 Telephone encounter Laura Faust [facility] Start: 06-16-2022 Telephone encounter Taniya cat Work Phone: [facility] Tra[facility] Surgery Start: 06-15-2022 End: 06-18-2022 ambulatory UNKNOWN PROVIDER Facility:[facility] Start: 06-15-2022 End: 06-18-2022 Office outpatient visit 15 minutes Trauma Surgery Resident [facility] Comment on above: Acute cholecystitis (Primary Dx); Body mass index (BMI) 31.0-31.9, adult Start: 05-27-2022 ambulatory Maegan Morris RN [facility] Comment on above: Advice/health educat ion Start: 05-23-2022 Evaluation and management of inpatient JOCELYNE CONLEY Facility:[facility] Start: 05-19-2022 Evaluation and management of inpatient CONNIE QUINTANILLA Facility:[facility] Start: 05-18-2022 Patient encounter status Maegan Morris RN [facility] Start: 05-17-2022 Evaluation and management of inpatient CONNIE QUINTANILLA Facility:[facility] Start: 05-16-2022 Evaluation and management of inpatient CONNIE QUINTANILLA Facility:[facility] Start: 05-16-2022 End: 05-16-2022 ambulatory UNKNOWN PROVIDER Facility:[facility] Start: 05-16-2022 End: 05-25-2022 Evaluation and management of inpatient WARD GRAVES Facility:[facility] Start: 05-16-2022 Emergency department patient visit CONNIE QUINTANILLA Facility:[facility] Start: 05-15-2022 End: 05-16-2022 Emergency department patient visit DO Ward Zuniga Work Phone: [facility] Work Phone: Start: 05-15-2022 End: 05-16-2022 ambulatory UNKNOWN PROVIDER Facility:[facility] Start: 04-06-2022 End: 04-06-2022 ambulatory DO Ward Zuniga Work Phone: [facility] Work Phone: Start: 04-06-2022 End: 04-06-2022 Patient encounter procedure DO Ward Zuniga Work Phone: [facility] [address] Work Phone: Start: 01-03-2022 End: 01-03-2022 ambulatory DO Ward Zuniga Work Phone: [facility] Work Phone: Start: 01-03-2022 End: 01-03-2022 Patient encounter procedure DO Ward Zuniga Work Phone: [facility]-Lab Main [place] Start: 12-16-2021 End: 12-16-2021 Patient encounter procedure DO Ward Zuniga Work Phone: [facility]-Digestive [facility] Start: 12-15-2021 End: 12-15-2021 Patient encounter procedure DO Ward Zuniga Work Phone: [facility]-Pre-Surgical Testing Start: 12-07-2021 End: 12-07-2021 ambulatory Balwinder Parker Other [employer] Other Start: 12-07-2021 Patient encounter procedure Balwinder Parker [facility] Start: 11-30-2021 End: 11-30-2021 Patient encounter procedure MARYCARMEN NAVA [facility] Start: 09-08-2021 End: 09-08-2021 ambulatory Balwinder Parker Other [facility] Other Start: 09-08-2021 Telephone encounter Balwinder Parker [facility] Start: 07-29-2021 End: 07-29-2021 Patient encounter procedure MARYCARMEN NAVA [facility] [place] Start: 07-01-2021 End: 07-01-2021 ambulatory Balwinder Parker Other [facility] Other Start: 07-01-2021 Patient encounter procedure Balwinder Parker [facility] Start: 02-23-2021 End: 02-23-2021 ambulatory Ward Mtz Other [facility] Other Start: 02-23-2021 Office outpatient vi sit 15 minutes Ward Mtz [facility] Start: 01-22-2021 (Sclerother) Sclerotherapy Ward Mtz [facility] Start: 01-22-2021 End: 01-22-2021 ambulatory Ward Mtz Other [facility] [employer] Other Start: 01-21-2021 Telephone encounter Michael Colunga [facility] Start: 12-29-2020 Office outpatient vi sit 25 minutes Michael Keanu [facility] Neurosurgery Start: 09-07-2020 End: 09-07-2020 Patient encounter procedure Ward Zuniga Work Phone: -Ultrasound [facility] Vascular Start: 08-04-2020 End: 08-04-2020 Patient encounter procedure Ward Zuniga Work Phone: -Ultrasound [facility] Start: 07-13-2020 End: 07-13-2020 Patient encounter procedure Ward Zuniga Work Phone: -[facility] Surgery Start: 06-30-2020 End: 06-30-2020 Patient encounter procedure Ward Zuniga -Lab [facility] Start: 03-31-2020 End: 03-31-2020 Admission to day surgery Ward Zuniga -[facility] Start: 03-30-2020 End: 03-30-2020 Patient encounter procedure Ward Zuniga -Pre-Surgical Testing Procedures Date Procedure Procedure Detail Performing Clinician Start: 01-09-2024 Radiologic exam abdomen 3+ views Ty Ahuja PA-C Work Phone: Start: 11-07-2023 Lipid 1996 panel - Serum or Plasma Milagros Ahuja PA-C Work Phone: Start: 05-08-2023 Esophagogastroduodenoscopy transoral diagnostic Jaja Reddy [...] 05-15-2022 CT angiography of thorax DO Ward conner Work Phone: Start: 05-15-2022 Computed tomography of [...] (LFIA) Ward Zuniga Start: 03-30-2020 Colonoscopy Angelita Carbone PT Work Phone: Start: 06-29-2017 Release of trigger finger MARYCARMEN NAVA Comment on above: FINGER TRIGGER RELEASE Start: 05-30-2016 Total knee replacement MARYCARMEN NAVA Comment on above: LEFT Start: 05-02-2016 Right ring trigger finger release HELEN NAVA Arthroplasty of knee Ward Zuniga Work Phone: Colonoscopy MARYCARMEN NAVA Drainage biliary cat heter (physical object) Talon Mcbride H/O: hysterectomy MARYCARMEN Barrios ERRMax Hysterectomy Ward Hernandez sarah Work Phone: Replacement of right knee joint MARYCARMEN NAVA Screening for malign ant neoplasm of colon Michael Keanu Other Total colonoscopy Ward Zuniga Work Phone: Comment on above: 2020; Plan of Treatment Date Care Activity Detail Author Start: 03-30-2030 Screening for malign ant neoplasm of colon [facility] Start: 11-06-2028 Lipid panel Lipid Screening [facility] Start: 2028 RSV Vaccine (1 - 1-d ose 75+ series) RSV Vaccine (1 - 1-dose 75+ series) [facility] Start: 01-03-2027 Cholesterol [Mass/volume] in Serum or Plasma [facility] Start: 11-06-2026 Diabetes Screening Diabetes Screenin [facility] Start: 05-25-2025 Diabetes Screening Diabetes Screenin g [facility] Start: 02-13-2024 End: 02-13-2024 Patient encounter procedure 02/13/2024 8:45 AM EST Office Visit [facility] [address] [place] [phone] Ward Zuniga DO [address] [place] [address] [facility] Start: 01-03-2024 Medicare Annual Wellness (AWV) Medicare Annual Wellness (AWV) [facility] Start: 11-26-2023 Covid-19 Vaccine () Covid-19 Vaccine () [facility] Start: 11-26-2023 Influenza vaccination Influenza Vacc ine (#1) [facility] Start: 11-07-2023 End: 05-09-2024 25-hydroxyvitamin D3 [Mass/volume] in Serum or Plasma Vitamin D 25 hydroxy Total Lab Routine Unspecified inflammatory spondylopathy, 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) Fibromyalgia Anemia, unspecified type Other chronic pain Spinal stenosis, lumbar region without neurogenic claudication Expected: 11/07/2023 (Approximate), Expires: 05/09/2024 [facility] Comment on above: Expected: 11/07/2023 (Approximate), Expires: 05/09/2024 Start: 11-07-2023 End: 05-09-2024 CBC W Auto Differential panel - Blood CBC and differential Lab Routine Primary hypertension (CMS/HCC) Expected: 11/07/2023 (Approximate), Expires: 05/09/2024 [facility] Work Phone: Comment on above: Expected: 11/07/2023 (Approximate), Expires: 05/09/2024 Start: 11-07-2023 End: 05-09-2024 Cobalamin (Vitamin B12) [Mass/volume] in Serum or Plasma Vitamin B12 Lab Routine Anemia, unspecified type Expected: 11/07/2023 (Approximate), Expires: 05/09/2024 [facility] Comment on above: Expected: 11/07/2023 (Approximate), Expires: 05/09/2024 Start: 11-07-2023 End: 11-07-2023 Comprehensive metabolic 2000 panel - Serum or Plasma Comprehensive metabolic panel Lab Routine Primary hypertension (CMS/HCC) Expected: 11/07/2023 (Approximate), Expires: 11/07/2023 [facility] Comment on above: Expected: 11/07/2023 (Approximate), Expires: 11/07/2023 Start: 11-07-2023 End: 05-09-2024 Ferritin [Mass/volume] in Serum or Plasma Ferritin Lab Routine Anemia, unspecified type Expected: 11/07/2023 (Approximate), Expires: 05/09/2024 [facility] Comment on above: Expected: 11/07/2023 (Approximate), Expires: 05/09/2024 Start: 11-07-2023 End: 05-09-2024 Iron and Iron binding capacity panel - Serum or Plasma Iron and TIBC Lab Routine Anemia, unspecified type Expected: 11/07/2023 (Approximate), Expires: 05/09/2024 [facility] Comment on above: Expected: 11/07/2023 (Approximate), Expires: 05/09/2024 Start: 11-07-2023 End: 05-09-2024 Lipid 1996 panel - Serum or Plasma Lipid panel Lab Routine Coronary artery disease involving lovelock coronary artery of lovelock heart without angina pectoris (CMS/HCC) Mixed hyperlipidemia (CMS/HCC) Expected: 11/07/2023 (Approximate), Expires: 05/09/2024 [facility] Comment on above: Expected: 11/07/2023 (Approximate), Expires: 05/09/2024 Start: 11-07-2023 End: 05-09-2024 Microalbumin/Creatinine panel in random Urine Microalbumin / creatinine urine ratio Lab Routine Anemia, unspecified type Expected: 11/07/2023 (Approximate), Expires: 05/09/2024 [facility] Comment on above: Expected: 11/07/2023 (Approximate), Expires: 05/09/2024 Start: 11-07-2023 End: 05-09-2024 Thyrotropin [Units/volume] in Serum or Plasma Tsh+free t4 Lab Routine Acquired hypothyroidism (CMS/HCC) Expected: 11/07/2023 (Approximate), Expires: 05/09/2024 [facility] Comment on above: Expected: 11/07/2023 (Approximate), Expires: 05/09/2024 Start: 11-07-2023 End: 11-07-2023 Patient encounter procedure 11/07/2023 1:00 PM EDT Office Visit [facility] [address] [place] [address] Ward Zuniga, DO [address] [place] [address] [facility] Start: 07-10-2023 End: 07-10-2023 Patient encounter procedure 07/10/2023 10:45 AM EDT Office Visit [facility] [address] [place] [phone] Jr. Victoria Haynes, DO [address] [place] [address] [facility] Start: 05-25-2023 End: 05-25-2023 ambulatory 05/25/2023 11:00 AM EST Treatment [facility] [address] [place] [phone] Angelita Carbone, PT [address] [place] [address] [facility] Start: 05-23-2023 End: 05-23-2023 ambulatory 05/23/2023 11:00 AM EST Treatment [facility] [address] [place] [phone] Tamiko Tom, SWITCH HOUSE OPERATOR [facility] Start: 05-18-2023 End: 05-18-2023 ambulatory 05/18/2023 11:30 AM EST Treatment [facility] [address] [place] [phone] Tamiko Tom, SWITCH HOUSE OPERATOR [facility] Start: 05-16-2023 End: 05-16-2023 ambulatory [facility] Start: 05-12-2023 End: 05-12-2023 ambulatory [facility] Start: 05-10-2023 End: 05-10-2023 ambulatory 05/10/2023 2:00 PM EST Treatment [facility] [address] [place] [phone] Angelita Carbone, PT [address] [place] [address] [facility] Start: 05-09-2023 End: 05-09-2023 Patient encounter procedure 05/09/2023 1:00 PM EST Office Visit [facility] [address] [place] [phone] Ward Zuniga, DO [address] [place] [address] [facility] Start: 05-04-2023 End: 05-04-2023 ambulatory [facility] Comment on above: Arrived Start: 03-27-2023 Advance Directive Discussion Advance Directive Discussion [facility] Start: 03-27-2023 Depression Assessment Depression Ass essment [facility] Start: 12-25-2022 Influenza vaccination Influenza Vacc ine (#1) [facility] Start: 11-25-2022 Covid-19 Vaccine ( season) Covid-19 Vaccine ( season) [facility] Start: 11-04-2022 Duplex scan of lower limb veins US venous duplex LE LT [facility] Start: 11-04-2022 US Lower extremity v ein - left [facility] Start: 10-06-2022 FUV, Provider: Natan Marinelli, Status: Pen, Time: 1:30 PM FUV, Provider: Natan Marinelli, Status: Pen, Time: 1:30 PM -[facility] [address] DO Work Phone: Start: 08-25-2022 End: 08-25-2022 Patient encounter procedure 08/25/2022 Office Visit Cardiology Ericka Hale MD [address] [phone] [facility] Card[facility] Start: 07-13-2022 End: 07-13-2022 Patient encounter procedure 07/13/2022 Office Visit Trauma Surgery [facility] Start: 07-05-2022 End: 07-05-2022 Patient encounter procedure 07/05/[address] [facility] Start: 06-15-2022 End: 06-16-2023 RF Biliary ducts Views W contrast via existing catheter XA CHOLANGIOGRAM EXISTING ACCESS (RHETT) Imaging Routine Acute cholecystitis Expected: 06/15/2022, Expires: 06/16/2023 [facility] Work Phone: Comment on above: Expected: 06/15/2022 , Expires: 06/16/2023 Start: 05-15-2022 Plain chest X-ray XR chest 1V portab [facility] Start: 05-15-2022 XR Chest Single view [facility] Start: 05-15-2022 CT angiography of thorax CT angio chest PE protocol [facility] Start: 05-15-2022 CT Chest [facility] Start: 05-15-2022 Bacteria identified in Blood by Culture [facility] Start: 03-02-2022 Screening for malign ant neoplasm of breast [facility] Start: 01-17-2022 COVID-19 Vaccine (2 - Pfizer series) COVID-19 Vaccine (2 - Pfizer series) [facility] Start: 12-25-2021 Annual Wellness Visi t (G0439) Annual Wellness Visit (G0439) [facility] Start: 12-16-2021 [facility] Start: 09-07-2020 Duplex scan of lower limb veins US venous duplex [facility] Start: [address] osteoporosis [facility] Start: 2013 RSV Vaccine (1 - 1-d ose 60+ series) RSV Vaccine (1 - 1-dose 60+ series) [facility] Start: 2013 RSV vaccine (optiona l 60+ years) RSV vaccine (optional 60+ years) [facility] Start: 08-25-2003 Shingles (RZV) Vacci ne (1 of 2) Shingles (RZV) Vaccine (1 of 2) [facility] Start: 08-25-2003 Shingrix Vaccine (1 of 2) Shingrix Vaccine (1 of 2) [facility] Start: 1998 Lipid panel Lipid Screening [facility] Start: 1998 Screening for malign ant neoplasm of colon [facility] Start: 1993 Screening for malign ant neoplasm of breast Mammogram Screening [facility] Start: 1972 Urine microalbumin profile DTaP,Tdap,Td Vaccine (1 - Tdap) [facility] Start: 08-25-1971 Anxiety Screening Anxiety Screening [facility] Start: 08-25-1971 Depression Screening Depression Scre ening [facility] Start: 08-25-1971 Hepatitis C screening [facility] Start: 08-25-1971 Tetanus + diphtheria + acellular pertussis vaccine (product) Tdap Booster [facility] Start: 1953 Screening for malign ant neoplasm of colon [facility] CHOLECYSTECTOMY, LAPAROSCOPIC CHOLECYSTECTOMY, LAPAROSCOPIC Routine scheduled Acute cholecystitis [employer] CHOLECYSTECTOMY, LAPAROSCOPIC CHOLECYSTECTOMY, LAPAROSCOPIC Routine scheduled Acute cholecystitis [facility] End: 07-13-2022 Ecg routine ecg w/least 12 lds trcg only w/o i&r EKG 12 LEAD - PERFORM MUSE Routine Once for 1 Occurrences starting 07/13/2022 until 07/13/2022 [facility] Work Phone: Comment on above: Once for 1 Occurrenc es starting 07/13/2022 until 07/13/2022 Patient Education [facility] Work Phone: Patient referral [facility] Work Phone: SURGICAL PATHOLOGY [facility] Work Phone: Comment on above: Release Upon Orderin g for 1 Occurrences starting 05/08/2023, 1 completed End: 02-07-2025 XR Abdomen GE 3 Views AP and Oblique and [facility] XR ABDOMEN 3V KUB W/OBLIQUES Radiology Routine Constipation, unspecified constipation type 1 Occurrences starting 01/09/2024 until 02/07/2025 [facility] Work Phone: Comment on above: 1 Occurrences starti ng 01/09/2024 until 02/07/2025 [facility] Immunizations Immunization Date Immunization Notes Care Provider Crhistine walker 01-02-2023 influenza virus vaccine, unspecified formulation Cor[employer]ix [facility] 01-02-2023 Influenza, Seasonal, Quadrivalent, Adjuvanted Angelita Carbone PT Work Phone: [facility] 12-27-2021 Influenza, injectabl e, high-dose seasonal, quadrivalent, 0.7 mL, preservative free (OIK=[id number]) Maegan Morris RN [facility] 12-27-2021 SARS-CoV-2 (COVID-19 ) [id number] [employer] [facility] 12-27-2021 influenza virus vaccine, unspecified formulation [facility] 03-25-2021 COVID-19 mRNA, Comirnaty (Pfizer) DO Ward Loomisman Work Phone: [facility] 01-25-2021 SARS-CoV-2 (COVID-19 ) Ad26 vaccine, recombinant MARYCARMEN NAVA [facility] 01-07-2021 influenza virus vaccine, unspecified formulation [employer]ix [facility] 01-07-2021 influenza, high dose seasonal, preservative-free Maegan Morris RN [facility] 01-07-2021 pneumococcal polysaccharide vaccine, 23 valent Maegan Morris RN [facility] 07-10-2020 COVID-19 mRNA, Comirnaty (Pfizer) DO Ward Zuniga Work Phone: [facility] 06-25-2020 SARS-CoV-2 (COVID-19 ) Ad26 vaccine, recombinant MARYCARMEN ELIJAH [facility] 06-18-2020 COVID-19 mRNA, Comirnatmax (Pfizer) DO Ward Zuniga Work Phone: [facility] 05-25-2020 SARS-CoV-2 (COVID-19 ) Ad26 vaccine, recombinant MARYCARMEN NAVA [facility] 12-09-2019 influenza virus vaccine, unspecified formulation Admatic [employer] Prototype [facility] 12-09-2019 pneumococcal conjuga te vaccine, 13 valent Maegan Morris RN [facility] 12-09-2019 Seasonal trivalent influenza vaccine, adjuvanted, preservative free Maegan Morris RN [facility] 01-30-2019 KENALOG - 10 mg Michael Colunga Other [facility] Other 12-27-2018 influenza virus vaccine, unspecified formulation Ketty Orzech [facility] 12-27-2018 Seasonal trivalent influenza vaccine, adjuvanted, preservative free Maegan Morris RN [facility] 01-25-2018 influenza virus vaccine, unspecified formulation Ketty Orzech [facility] 01-25-2018 Influenza, injectabl e, Madin Ghislaine Canine Kidney, quadrivalent with preservative Maegan Morris RN [facility] 12-27-2016 influenza virus vaccine, unspecified formulation Ketty Orzech [facility] 12-27-2016 influenza, injectabl e, quadrivalent, preservative free Maegan Morris RN [facility] 07-07-2016 Kenalog -40 mg Michael Colunga Other [facility] Other 01-25-2016 Kenalog -40 mg Michael Colunga Other [facility] Other 11-26-2015 influenza virus vaccine, unspecified formulation Ketty Orzeadeel [facility] 10-19-2015 Kenalog -40 mg Michael Colunga Other [facility] Other 01-22-2013 influenza virus vaccine, unspecified formulation Ketty Orzeadeel [facility] 01-22-2013 influenza, seasonal, injectable Maegan Morris RN [facility] 03-13-2009 novel [id number], preservative-free, injectable Maegan Morris RN [facility] 01-05-2000 hepatitis B vaccine, adult dosage Maegan Morris RN [facility] 08-02-1999 hepatitis B vaccine, adult dosage Maegan Morris RN [facility] 06-29-1999 hepatitis B vaccine, adult dosage Maegan Morris RN [facility] Payers Date Payer Category Payer Self-pay [id number] 2022 Medicare [id number] 2022 Unknown [id number] [id number] 2022 Medicare [id number] 2021 Unknown [id number] 1953 Unknown [id number] 2.16. 840.1.453533.3.579.2.732 1953 Unknown [id number] 2.16. 840.1.905550.3.579.2. 1953 Unknown [id number] 2.16. 840.1.932653.3.579.2. 1953 Unknown [id number] 2.16. 840.1.206295.3.579.2. 1953 Unknown [id number] 2.16. 840.1.437841.3.579.2. 1953 Unknown [id number] 2.16. 840.1.060427.3.579.2. 1953 Unknown [id number] 2.16. 840.1.665723.3.579.2. 1953 Unknown [id number] 2.16. 840.1.248240.3.579.2. 1953 Unknown [id number] 2.16 840.1.015970.3.579.2. 1953 Unknown [id number] 2.16. 840.1.254305.3.579.2. 1953 Unknown [id number] 2.16 840.1.645434.3.579.2. 1953 Unknown [id number] 2.16. 840.1.777639.3.579.2. 1953 Unknown [id number] 2.16. 840.1.462319.3.579.2. 1953 Unknown [id number] 2.16. 840.1.523956.3.579.2. 1953 Unknown [id number] 2.16. 840.1.283570.3.579.2. 1953 Unknown [id number] 2.16. 840.1.520035.3.579.2. 1953 Unknown [id number] 2.16. 840.1.679755.3.579.2.356 1953 Unknown [id number] 2.16. 840.1.389253.3.579.2.356 1953 Unknown [id number] 2.16.8 40.1.627238.3.579.2.727 1953 Unknown [id number] 2.16.8 40.1.631138.3.579.2.72 1953 Unknown [id number] 2.16.8 40.1.229806.3.579.2. 1953 Unknown [id number] 2.16.8 40.1.684694.3.579.2. 1953 Unknown [id number] 2.16.8 40.1.536834.3.579.2.72 1953 Unknown [id number] 2.16.8 40.1.508619.3.579.2. 1953 Unknown [id number] 2.16.84 0.1.306984.3.579.2.1258 1953 Unknown [id number] 2.16.84 0.1.645479.3.579.2.1258 1953 Unknown [id number] 2.16.84 0.1.058915.3.579.2.1258 1953 Unknown [id number] 2.16.84 0.1.194691.3.579.2.1258 1953 Unknown [id number] 2.16.84 0.1.212269.3.579.2.1258 1953 Unknown [id number] 2.16.84 0.1.934133.3.579.2.1258 1953 Unknown [id number] 2.16.84 0.1.601263.3.579.2.1258 1953 Unknown [id number] 2.16.84 0.1.556645.3.579.2.1258 1953 Unknown [id number] 2.16.84 0.1.705616.3.579.2.1258 1953 Unknown [id number] 2.16.84 0.1.320927.3.579.2.1258 1953 Unknown [id number] 2.16.84 0.1.063927.3.579.2.1258 1953 Unknown [id number] 2.16.84 0.1.805247.3.579.2.1258 1953 Unknown [id number] 2.16.84 0.1.946622.3.579.2.1258 1953 Unknown [id number] 2.16.84 0.1.298132.3.579.2.1258 1953 Unknown [id number] 2.16.84 0.1.888153.3.579.2.1258 1953 Unknown [id number] 2.16.84 0.1.560065.3.579.2.1258 1953 Unknown [id number] 2.16.84 0.1.884052.3.579.2.1258 1953 Unknown [id number] 2.16.84 0.1.984970.3.579.2.1258 1953 Unknown [id number] 2.16.84 0.1.473490.3.579.2.1258 1953 Unknown [id number] 2.16.84 0.1.815553.3.579.2.1258 1953 Unknown [id number] 2.16.840 .1.805874.3.579.2.1258 1953 Unknown [id number] 2.16.840 .1.999793.3.579.2.1258 1953 Unknown [id number] 2.16.840 .1.865273.3.579.2.1258 1953 Unknown [id number] 2.16.840 .1.134553.3.579.2.12584 Unknown [id number] 2.16.840 .1.120737.3.579.2.1259 1953 Unknown [id number] 2.16.840 .1.931281.3.579.2.1259 Unknown [id number] Unknown [id number] 2.16.8 40.1.371943.3.579.2.531 Unknown [id number] 2.16.8 40.1.821554.3.579.2.531 Unknown [id number] 2.16.8 40.1.518897.3.579.2.531 Unknown [id number] 2.16.8 40.1.955245.3.579.2.531 Social History Date Type Detail Facility Start: 03-31-2020 End: 04-19-2023 Tobacco smoking status AZIS Ex-smoker (finding) [facility] Start: 1955 Sex Assigned At Female [facility] Start: 04-19-2023 End: 01-09-2024 Sex Assigned At Female [facility] Other Start: 05-15-2022 End: 12-17-2022 Tobacco smoking status AZIS Current some day smoker [facility] Start: 03-27-1969 End: 03-27-2009 History of tobacco use Current smoker [facility] Start: 03-27-1969 End: 03-27-2009 History of tobacco use Cigarette Smoker [facility] Start: 05-16-2022 End: 01-09-2024 Cigarettes smoked current (pack per day) - Reported 1 [facility] Comment on above: occasionaly cup of c offee; 2009; Start: 1955 Sex Assigned At Not on file [facility] Start: 05-06-2022 End: 05-16-2022 Exposure to SARS-CoV-2 (event) Not sure [facility] Start: 06-22-2022 End: 03-02-2023 Tobacco smoking status AZIS Never smoked tobacco (finding) [facility] Tobacco smoking status Never [facility] Start: 04-19-2023 End: 11-13-2023 Tobacco use and exposure Smokeless tobacco non-user [facility] Start: 04-19-2023 End: 01-09-2024 Alcohol intake Current drinker of alcohol (finding) [facility] Start: 04-19-2023 Alcohol Comment rare [facility] History of tobacco use Passive [...] drinks on 1 occasion? Monthly [facility] Start: 11-14-2023 Alcoholic beverage intake Ex-drinker (finding) [facility] Start: 11-13-2023 Tobacco Comment I use marajuan a edibles and vape [facility] Start: 11-13-2023 Alcohol Comment on occasion [facility] Goals Date Patient Goal Desired Activity /State Functional Status Date Assessment Result Facility 03-02-2023 Functional Status N/A [facility] 09-26-2022 Functional Status N/A [facility] 07-18-2022 Functional Status No [facility] 11-30-2021 Functional Status N/A [facility] Clinical Notes 12-29-2020 to 01-09-2024 Gerry Barnes RT(Silvia) - 01/09/2024 12:50 PM EDTPatient Ty Burleson PA-C - 01/09/2024 11:30 AM EDT Note Date & Type Note Facility 01-09-2024 History of Present illness Narrative Radiology Service Progress Note PATIENT NAME: Gerry Victoria DATE OF SERVICE: January 09, 2024 TIME: 1:22 PM PATIENT IDENTITY VERIFICATION COMPLETED USING TWO (2) IDENTIFIERS: Name and Date of confirmed by patient verbally. FALL SCREENING: Has the patient had 2 falls in the last year or 1 fall with injury or currently using an Ambulatory Assistive Device (Walker, Cane, Wheelchair, Crutches, etc.)? No PATIENT GENDER DATA: Female. status: : No status: NO. PATIENT RELEVANT IMPLANT DATA REVIEWED: Not Applicable PATIENT PRESENTS WITH AN IMPLANTABLE OR ATTACHED HEALTH SAFETY COORDINATOR: No RADIOLOGY DEPARTMENT: General X-ray: Exam(s) Completed: Abdomen X-Ray: Abdomen with Obliques PERIPHERAL IV DATA: Not applicable SIGNED BY: RT Violet(Silvia) January 09, 2024 1:22 PM documented in this encounter [facility] 01-09-2024 Note HNO ID: [id number] Author: GERRY BARNES RT(R) Service: Radiology Author Type: Technologist Type: Progress Notes Filed: 01/09/2024 13:23 Note Text: Radiology Service Progress Note PATIENT NAME: Gerry Victoria DATE OF SERVICE: January 09, 2024 TIME: 1:22 PM PATIENT IDENTITY VERIFICATION COMPLETED USING TWO (2) IDENTIFIERS: Name and Date of confirmed by patient verbally. FALL SCREENING: Has the patient had 2 falls in the last year or 1 fall with injury or currently using an Ambulatory Assistive Device (Walker, Cane, Wheelchair, Crutches, etc.)? No PATIENT GENDER DATA: Female. status: : No status: NO. PATIENT RELEVANT IMPLANT DATA REVIEWED: Not Applicable PATIENT PRESENTS WITH AN IMPLANTABLE OR ATTACHED HEALTH SAFETY COORDINATOR: No RADIOLOGY DEPARTMENT: General X-ray: Exam(s) Completed: Abdomen X-Ray: Abdomen with Obliques PERIPHERAL IV DATA: Not applicable SIGNED BY: RT Violet(R) January 09, 2024 1:22 PM [facility] 01-09-2024 Instructions Ty Ahuja PA-C - 01/09/2024 11:58 AM EDT Thank you for seeing me in clinic today. It was very nice to meet you! As we discussed, my recommendations are as follows: Have xray completed Based on xray results, I will recommend a bowel regimen (usually a bowel clean out followed by daily miralax) Omeprazole 40mg daily in the morning and add pepcid 20mg daily at bedtime If you have any questions about the above treatment plan, please do not hesitate to send me a NOTIK message or call. Ty Ahuja PA-C documented in this encounter [facility] 01-09-2024 History of Present illness Narrative DEPARTMENT OF GASTROENTEROLOGY - FOLLOW UP REASON FOR VISIT Gerry Victoria is a 68 year old female who is scheduled for follow up of constipation and GERD HISTORY OF PRESENT ILLNESS Gerry Victoria is a 68 year old female who presents today for follow up of constipation and GERD. She reports that ever since she had her gallbladder removed in June 2022 she has noticed changes in her bowel habits. She is now more constipated than she used to be. She will only move her bowels twice per week and when she does she feels like they are complete blowout and she will sometimes have associated nausea and vomiting. The nausea and vomiting only occurs when she is having the significant purge episodes per her report. She takes a probiotic daily but has not noticed that this helps with her symptoms. She has not noticed any BRBPR, melena, fever, chills, unintentional weight loss. She currently takes omeprazole 20 mg in the morning and 20 mg in the evening but notices that she still has indigestion and acid reflux. She is accompanied by her sister who notes that she still eats more fried foods than she should and feels that this is contributing to her symptoms. Pertinent Workup to Date: DAVON Reddy 03/2023 67-year-old female with past medical history of hypertension, GERD, hypothyroidism, status post cholecystectomy presenting for epigastric pain. Will plan for EGD to further assess possible etiology of her pain. She should continue PPI daily at this time. We discussed MiraLAX as needed for when she is constipated. She otherwise has no red flag or alarm symptoms at this time. She is due for screening colonoscopy in 2025 due to her family history. RTC based on testing EGD 04/2023 - Normal mucosa was found in the entire esophagus. - Z-line regular, 35 cm from the incisors. - Normal stomach. Biopsied. - Normal examined duodenum. Biopsied. Recommendation: - Await pathology results. - Discharge patient to home. - Resume previous diet. - Continue present medications. Past Clinical Work-Up: XR cholangiogram 07/05/2022: IMPRESSION: [...] dependent pelvis, increased from the prior study. I have personally reviewed labs, current medication, allergies, PMH, PSH, family history and social history. Pertinent information has been listed above. Denies Family hx CRC, IBD, celiac Denies Smoking, etoh, illicits, NSAIDs History reviewed. No pertinent past medical history. PAST SURGICAL HISTORY Procedure Laterality Date CHOLECYSTECTOMY COLONOSCOPY SCREENING COLONOSCOPY SCREENING 04/2023 Allergies: Cymbalta [Duloxetin* Intolerance Current Outpatient Medications Medication Sig Dispense Refill acyclovir (ZOVIRAX) 400 mg tablet Take 400 [...] No current facility-administered medications for this visit. Social History Tobacco Use Smoking status: Former Types: Cigarettes Smokeless tobacco: Never Vaping Use Vaping status: Never Used Substance Use Topics Alcohol use: Yes Comment: rare Drug use: Yes Types: Marijuana FAMILY HISTORY Problem Relation Age of Onset Colon Cancer Father Colon Cancer Nephew REVIEW OF SYSTEMS Cardiovascular: No chest pain Respiratory: Negative for cough, wheezing and shortness of breath Gastrointestinal : See above Psychiatric: No problems PHYSICAL EXAMINATION BP 183/82 Pulse 66 Wt 80 kg (176 lb 5.9 oz) BMI 33.32 kg/m Constitutional: well nourished, well appearing. NAD. Alert and cooperative Skin: no jaundice Eyes: anicteric, normal conjunctiva ENT: MMM Pulmonary: easy and nonlabored on RA Abdomen: soft, NT, ND. No ascites. MSK: MAEx4 Extremities: no edema Neuro: aaox3. No asterixis. Psych: appropriate mood and behavior No results found for: WBC , HGB , HCT , MCV , PLT No results found for: GLUCOSE , CALCIUM , NA , K , CO2 , CL , BUN , CREATININE No results found for: ALT , AST , GGT , ALKPHOS Assessment IMPRESSION Ms. Victoria is a 68 year old female who presents for follow up of GERD and constipation. She will obtain KUB and we will assess if she needs to complete a bowel cleanout or start MiraLAX 1-2 capfuls per day. For GERD, she will monitor diet closely and modify medication regimen. PLAN KUB 40mg omeprazole in the AM and pepcid 20mg before bed Limit fried foods Bowel cleanout vs miralax pending KUB Ty Ahuja PA-C documented in this encounter [facility] 01-09-2024 Note HNO ID: [id number] Author: TY AHUJA PA-C Service: ? Author Type: Physician Technical Coordinator Type: Progress Notes Filed: 01/09/2024 12:37 Note Text: DEPARTMENT OF GASTROENTEROLOGY - FOLLOW UP REASON FOR VISIT Gerry Victoria is a 68 year old female who is scheduled for follow up of constipation and GERD HISTORY OF PRESENT ILLNESS Gerry Victoria is a 68 year old female who presents today for follow up of constipation and GERD. She reports that ever since she had her gallbladder removed in June 2022 she has noticed changes in her bowel habits. She is now more constipated than she used to be. She will only move her bowels twice per week and when she does she feels like they are complete blowout and she will sometimes have associated nausea and vomiting. The nausea and vomiting only occurs when she is having the significant purge episodes per her report. She takes a probiotic daily but has not noticed that this helps with her symptoms. She has not noticed any BRBPR, melena, fever, chills, unintentional weight loss. She currently takes omeprazole 20 mg in the morning and 20 mg in the evening but notices that she still has indigestion and acid reflux. She is accompanied by her sister who notes that she still eats more fried foods than she should and feels that this is contributing to her symptoms. Pertinent Workup to Date: DAVON eRddy 03/2023 67-year-old female with past medical history of hypertension, GERD, hypothyroidism, status post cholecystectomy presenting for epigastric pain. Will plan for EGD to further assess possible etiology of her pain. She should continue PPI daily at this time. We discussed MiraLAX as needed for when she is constipated. She otherwise has no red flag or alarm symptoms at this time. She is due for screening colonoscopy in 2025 due to her family history. RTC based on testing EGD 04/2023 - Normal mucosa was found in the entire esophagus. - Z-line regular, 35 cm from the incisors. - Normal stomach. Biopsied. - Normal examined duodenum. Biopsied. Recommendation: - Await pathology results. - Discharge patient to home. - Resume previous diet. - Continue present medications. Past Clinical Work-Up: XR cholangiogram 07/05/2022: IMPRESSION: [...] dependent pelvis, increased from the prior study. I have personally reviewed labs, current medication, allergies, PMH, PSH, family history and social history. Pertinent information has been listed above. Denies Family hx CRC, IBD, celiac Denies Smoking, etoh, illicits, NSAIDs History reviewed. No pertinent past medical history. PAST SURGICAL HISTORY Procedure Laterality Date CHOLECYSTECTOMY COLONOSCOPY SCREENING COLONOSCOPY SCREENING 04/2023 Allergies: Cymbalta [Duloxetin* Intolerance Current Outpatient Medications Medication Sig Dispense Refill acyclovir (ZOVIRAX) 400 mg tablet Take 400 [...] No current facility-administered medications for this visit. Social History Tobacco Use Smoking status: Former Types: Cigarettes Smokeless tobacco: Never Vaping Use Vaping status: Never Used Substance Use Topics Alcohol use: Yes Comment: rare Drug use: Yes Types: Marijuana FAMILY HISTORY Problem Relation Age of Onset Colon Cancer Father Colon Cancer Nephew REVIEW OF SYSTEMS Cardiovascular: No chest pain Respiratory: Negative for cough, wheezing and shortness of breath Gastrointestinal : See above Psychiatric: No problems PHYSICAL EXAMINATION BP 18 (more content not included)... [facility] 11-06-2023 Progress note Note Date/Time November 06, 2023 11:06am [facility] [address] [place] [address] Wound Center Provider Note Signed Patient: Gerry Victoria MR#: [id number] : 1955 Acct:[id number] Age/Sex: 68 / F Copies to: DO Adelia Cruz APRN~ HPI Date of Visit Date of Visit: Date of Service: 11/06/2023 Time of Service: 11:03 Narrative HPI: 07/26/23 Gerry is a 67 year old female presenting to [facility] wound care for an initial visit for the left lower leg ulcer that appears venous and/or vasculitic- it is mostly open blisters with some intact blisters. Lorena has been apatient of the office in the past. She will come here for dressings of steroid topically and unna wrap to the lle and honey gel and bandage to the rle. A probiotic was suggested for gut and immune health and other nutrition suggestions were provided on her discharge papers. She can return in about 1 week. She had been referred to [facility] at a prior visit here and she is currently following with them- she sees them next week for the lle vein procedure. Lorena tells us that she is currently taking oral antibiotics. 08/07/23 left leg ulcer looks great, might be healed later this week, right leg ulcer remains black and so the area was debrided and crosshatched and topical gent was applied today, unna wrap to the left leg and compression sock to the right leg, continues to see [facility], will return later this week for dressings 10/03/23 haven't see Lorena in awhile, has been seeing another provider in the office, stable, left leg healed, no acute infection noted, 1-2 week appt 10/16/23 continue the honey gel, debrided the area today, measures smaller, couldbe healed by the next visit, no signs of infection noted, has no venous procedures until sometime in october, 2-3 week appt 11/06/23 healed today, no signs of infection, use stockings and follow with [facility] as scheduled Subjective Pain Right Lower Leg: Pain Intensity: 0 Wound/Ulcer History When did wound start?: Left leg ulcer 07/25/2023, right leg ulcer Mode of Arrival/ Canvas Repairer: Personal vehicle Lives with:: Alone Appetite Description: Within Normal Limits Who helps w/ dressing change?: Self Why Do You Need Help?: Can't Reach Ulcer Smoking Status: Former smoker [facility] Medical History (Updated 10/16/23 @ 11:43 by Adelia Saldana APRN) Ulcer of right leg Leg ulcer, left IBS (irritable bowel syndrome) Leg ulcer, left Hx of gallstones Hypothyroidism Acid reflux Fibromyalgia Hypertension Heart palpitations Surgical History History of biliary duct stent placement History of bilateral knee replacement History of surgery on arm H/O: hysterectomy 1983 Family History Father Colon cancer Family/Other Colon cancer Mother CHF (congestive heart failure) Social History Smoking Status: Former smoker Tobacco Type: cigarettes Substance Use Type: Marijuana Substance Abuse Comment: medical marijuana Grafts History of Graft History of Graft?: No Exam Physical Exam Vital Signs: Temp Pulse Resp BP O2 Del Method 96.6 F L 70 18 155/66 H Room Air 11/06/23 10:49 11/06/23 10:49 11/06/23 10:49 11/06/23 10:49 11/06/23 10:49 Const General: cooperative, healthy appearing, comfortable, no acute distress and wellgroomed Nutritional Appearance: obese Orientation: alert, awake and oriented x3 Lower/Upper Extremity Exam Vascular Exam-Edema Right Lower Extremity: Edema Degree: 1+ Edema Type: Pitting Vascular Exam-Pulses Right Brachial: Pulse Assessment Method: NIBP Objective Meds/Allergies Home Medications amitriptyline 50 mg tablet 50 mg PO DAILY 03/29/17 [History Confirmed 08/07/23] atenolol 50 mg tablet 50 mg PO DAILY 03/29/17 [History Confirmed 08/07/23] gabapentin 100 mg capsule 100 mg PO TID 03/29/17 [History Confirmed 08/07/23] ropinirole 0.25 mg tablet 0.25 mg PO QID 03/29/17 [History Confirmed 08/07/23] tramadol 50 mg tablet 50 mg PO DAILY PRN Pain, Mild 03/29/17 [History Confirmed 08/07/23] levothyroxine 50 mcg tablet 100 mcg PO DAILY 10/23/18 [History Confirmed 08/07/23] omeprazole 40 mg capsule,delayed release 40 mg PO BID #60 caps 05/13/21 [Rx Confirmed 08/07/23] acyclovir 400 mg tablet 400 mg PO DAILY 05/15/22 [History Confirmed 08/07/23] escitalopram oxalate 10 mg tablet 10 mg PO DAILY 05/15/22 [History Confirmed 08/07/23] multivitamin 1 tab PO DAILY 10/05/22 [History Confirmed 08/07/23] ondansetron 4 mg disintegrating tablet 4 mg PO Q6-8H PRN Nausea #10 tabs 12/17/22 [Rx Confirmed 08/07/23] gentamicin 0.1 % topical ointment 1 applic topical 2XW 08/17/23 [History Confirmed 08/17/23] gentamicin 0.1 % topical ointment 1 applic topical .qd Apply with dressing change #15 grams 08/28/23 [Rx] Allergies adhesive Allergy (Unknown, Unverified 02/02/23 07:41) Rash duloxetine Allergy (Unknown, Verified 01/02/23 10:18) swollen feet meloxicam Allergy (Unknown, Verified 01/02/23 10:18) oxaprozin Allergy (Unknown, Verified 01/02/23 10:18) pregabalin [From Lyrica] Allergy (Unknown, Unverified 02/02/23 07:41) Swelling ropinirole [Requip] Allergy (Unknown, Verified 01/02/23 10:18) dizziness tizanidine Allergy (Unknown, Verified 01/02/23 10:18) contact metal agent Adverse Reaction (Verified 02/02/23 07:41) Hives Wound/Ulcer Right Lower Leg: Type: Surgical Wound (from venous procedures) Thickness: Full Bed Appearance: Epithelial Tissue or Bridge Percent of Wound Bed Granulated/Red: 0 Percent of Devitalized: 0 Length (cm): 0 Width (cm): 0 Depth (cm): 0 CM Sq: 0.000 Surrounding Tissue Appearance: Hyperpigmented Surrounding Tissue Temp: Warm Drainage Amount: None Drainage Odor: No Odor Results Height: 5 ft 1 in Weight: 79.379 kg Body Mass Index: 33.0 Assessment/Plan Assessment/Plan (1) Surgical wound, non healing: Qualifiers: Encounter type: sequela Qualified Code(s): T81.89XS - Other complications of procedures, not elsewhere classified, sequela Code(s): T81.89XA - Other complications of procedures, not elsewhere classified, initial encounter Plan: rle- healed (2) Varicose veins of both lower extremities: Code(s): I83.93 - Asymptomatic varicose veins of bilateral lower extremities (3) Edema: Code(s): R60.9 - Edema, unspecified Plan: ble's (4) Inflammation: (5) Obesity: Code(s): E66.9 - Obesity, unspecified (6) Vasculitis: Code(s): I77.6 - Arteritis, unspecified Plan: suspected (7) Pain in wound: Plan: at times, not usually resolved Plan see orders and hpi Time spent with patient Time Spent With Patient (min): 10 Dictated By: Adelia Saldana APRN DD/ 02 Signed By: <Electronically signed by CUBA Saldana> 11/06/231105 [facility] Work Phone: [phone]) 669-969007-22-2024 Progress note Author Adelia Saldana [facility] October 16, 2023 11:44am Note Date/Time October 16, 2023 11:4 4am [facility] [address] [place] [address] Wound Center Provider Note Signed Patient: Gerry Victoria MR#: [id number] : 1955 Acct:[id number] Age/Sex: 68 / F Copies to: DO Adelia Cruz APRN~ HPI Date of Visit Date of Visit: Date of Service: 10/16/2023 Time of Service: 11:37 Narrative HPI: 07/26/23 Gerry is a 67 year old female presenting to [facility] wound care for an initial visit for the left lower leg ulcer that appears venous and/or vasculitic- it is mostly open blisters with some intact blisters. Lorena has been apatient of the office in the past. She will come here for dressings of steroid topically and unna wrap to the lle and honey gel and bandage to the rle. A probiotic was suggested for gut and immune health and other nutrition suggestions were provided on her discharge papers. She can return in about 1 week. She had been referred to [facility] at a prior visit here and she is currently following with them- she sees them next week for the lle vein procedure. Lorena tells us that she is currently taking oral antibiotics. 08/07/23 left leg ulcer looks great, might be healed later this week, right leg ulcer remains black and so the area was debrided and crosshatched and topical gent was applied today, unna wrap to the left leg and compression sock to the right leg, continues to see [facility], will return later this week for dressings 10/03/23 haven't see Lorena in awhile, has been seeing another provider in the office, stable, left leg healed, no acute infection noted, 1-2 week appt 10/16/23 continue the honey gel, debrided the area today, measures smaller, couldbe healed by the next visit, no signs of infection noted, has no venous procedures until sometime in october, 2-3 week appt Subjective Pain Right Lower Leg: Pain Description: Intermittent Pain Intensity: 0 Wound/Ulcer History When did wound start?: Left leg ulcer 07/25/2023, right leg ulcer Mode of Arrival/ Canvas Repairer: Personal vehicle Lives with:: Alone Appetite Description: Within Normal Limits Who helps w/ dressing change?: Self Why Do You Need Help?: Can't Reach Ulcer Smoking Status: Former smoker [facility] Medical History (Updated 10/16/23 @ 11:43 by Adelia Saldana APRN) Ulcer of right leg Leg ulcer, left IBS (irritable bowel syndrome) Leg ulcer, left Hx of gallstones Hypothyroidism Acid reflux Fibromyalgia Hypertension Heart palpitations Surgical History History of biliary duct stent placement History of bilateral knee replacement History of surgery on arm H/O: hysterectomy 1983 Family History Father Colon cancer Family/Other Colon cancer Mother CHF (congestive heart failure) Social History Smoking Status: Former smoker Tobacco Type: cigarettes Substance Use Type: Marijuana Substance Abuse Comment: medical marijuana Grafts History of Graft History of Graft?: No Exam Physical Exam Vital Signs: Temp Pulse Resp BP O2 Del Method 98.1 F 71 18 165/81 H Room Air 10/16/23 11:30 10/16/23 11:30 09/25/23 11:30 10/16/23 11:30 10/16/23 11:30 Const General: cooperative, healthy appearing, comfortable, no acute distress and wellgroomed Nutritional Appearance: obese Orientation: alert, awake and oriented x3 Lower/Upper Extremity Exam Vascular Exam-Edema Right Lower Extremity: Edema Type: Pitting Vascular Exam-Pulses Right Dorsalis Pedis: Pulse Assessment Method: Palpation Right Posterior Tibial: Pulse Assessment Method: Palpation Right Brachial: Pulse Assessment Method: NIBP Objective Meds/Allergies Home Medications amitriptyline 50 mg tablet 50 mg PO DAILY 03/29/17 [History Confirmed 08/07/23] atenolol 50 mg tablet 50 mg PO DAILY 03/29/17 [History Confirmed 08/07/23] gabapentin 100 mg capsule 100 mg PO TID 03/29/17 [History Confirmed 08/07/23] ropinirole 0.25 mg tablet 0.25 mg PO QID 03/29/17 [History Confirmed 08/07/23] tramadol 50 mg tablet 50 mg PO DAILY PRN Pain, Mild 03/29/17 [History Confirmed 08/07/23] levothyroxine 50 mcg tablet 100 mcg PO DAILY 10/23/18 [History Confirmed 08/07/23] omeprazole 40 mg capsule,delayed release 40 mg PO BID #60 caps 05/13/21 [Rx Confirmed 08/07/23] acyclovir 400 mg tablet 400 mg PO DAILY 05/15/22 [History Confirmed 08/07/23] escitalopram oxalate 10 mg tablet 10 mg PO DAILY 05/15/22 [History Confirmed 08/07/23] multivitamin 1 tab PO DAILY 10/05/22 [History Confirmed 08/07/23] ondansetron 4 mg disintegrating tablet 4 mg PO Q6-8H PRN Nausea #10 tabs 12/17/22 [Rx Confirmed 08/07/23] gentamicin 0.1 % topical ointment 1 applic topical 2XW 08/17/23 [History Confirmed 08/17/23] gentamicin 0.1 % topical ointment 1 applic topical .qd Apply with dressing change #15 grams 08/28/23 [Rx] Allergies adhesive Allergy (Unknown, Unverified 02/02/23 07:41) Rash duloxetine Allergy (Unknown, Verified 01/02/23 10:18) swollen feet meloxicam Allergy (Unknown, Verified 01/02/23 10:18) oxaprozin Allergy (Unknown, Verified 01/02/23 10:18) pregabalin [From Lyrica] Allergy (Unknown, Unverified 02/02/23 07:41) Swelling ropinirole [Requip] Allergy (Unknown, Verified 01/02/23 10:18) dizziness tizanidine Allergy (Unknown, Verified 01/02/23 10:18) contact metal agent Adverse Reaction (Verified 02/02/23 07:41) Hives Wound/Ulcer Right Lower Leg: Type: Surgical Wound (from venous procedures) Thickness: Full Bed Appearance: [place] and Yellow Percent of Wound Bed Granulated/Red: 50 Percent of Devitalized: 50 Length (cm): 1.5 Width (cm): 1.2 Depth (cm): 0.1 CM Sq: 1.800 Surrounding Tissue Appearance: [place] Surrounding Tissue Temp: Warm Drainage Amount: Scant Drainage Description: Serosanguineous Drainage Odor: No Odor Lidocaine Applied Topically: 2% Jelly Procedures Time Out: 2 Patient Identifiers, Correct Patient, Correct Side/Site, Correct Procedure and Safety Issues Reviewed Procedure: The right leg wound was anesthetized with topical 2% lidocaine gel. A curette was used to perform debridement for the removal of 1 sq cm of devitalized tissue consisting of skin and slough. Debridement was down to healthy bleeding tissue. Estimated blood loss was minimal. Hemostasis was achieved by applying pressure. The right leg wound now appears more pink and the size remains the same. The patient tolerated well with no c/o pain. Results Height: 5 ft 1 in Weight: 79.379 kg Body Mass Index: 33.0 Assessment/Plan Assessment/Plan (1) Surgical wound, non healing: Qualifiers: Encounter type: sequela Qualified Code(s): T81.89XS - Other complications of procedures, not elsewhere classified, sequela Code(s): T81.89XA - Other complications of procedures, not elsewhere classified, initial encounter Plan: rle (2) Varicose veins of both lower extremities: Code(s): I83.93 - Asymptomatic varicose veins of bilateral lower extremities (3) Edema: Code(s): R60.9 - Edema, unspecified Plan: ble's (4) Inflammation: (5) Obesity: Code(s): E66.9 - Obesity, unspecified (6) Vasculitis: Code(s): I77.6 - Arteritis, unspecified Plan: suspected (7) Pain in wound: Plan: at times, not usually Plan see orders and hpi Time spent with patient Time Spent With Patient (min): 11 Dictated By: Adelia Saldana APRN DD/ 113 Signed By: <Electronically signed by CUBA Saldana> 10/16/23 1994 [facility] Work Phone: 1(879) 253-465107-09-2024 Progress note Author Adelia Saldana [facility] October 03, 2023 9:36am Note Date/Time October 03, 2023 9:25a m [facility] [address] [place] [address] Wound Center Provider Note Signed with Addenda Patient: Gerry Victoria MR#: [id number] : 1955 Acct:[id number] Age/Sex: 68 / F Copies to: Ward Zuniga,DO Adelia Saldana APRN~ ADDENDUM1 DOS WAS 09/25/23 Addendum Dictated By: CUBA Saldana DD/ /19/935 Addendum Signed By: <Electronically signed by Adelia Saldana APRN> 10/03/23935 Addendum Cosigned By: HPI Date of Visit Date of Visit: Date of Service: 10/03/2023 Time of Service: 09:23 Narrative HPI: 07/26/23 Gerry is a 67 year old female presenting to [facility] wound care for an initial visit for the left lower leg ulcer that appears venous and/or vasculitic- it is mostly open blisters with some intact blisters. Lorena has been apatient of the office in the past. She will come here for dressings of steroid topically and unna wrap to the lle and honey gel and bandage to the rle. A probiotic was suggested for gut and immune health and other nutrition suggestions were provided on her discharge papers. She can return in about 1 week. She had been referred to [facility] at a prior visit here and she is currently following with them- she sees them next week for the lle vein procedure. Lorena tells us that she is currently taking oral antibiotics. 08/07/23 left leg ulcer looks great, might be healed later this week, right leg ulcer remains black and so the area was debrided and crosshatched and topical gent was applied today, unna wrap to the left leg and compression sock to the right leg, continues to see [facility], will return later this week for dressings 10/03/23 haven't see Lorena in awhile, has been seeing another provider in the office, stable, left leg healed, no acute infection noted, 1-2 week appt Subjective Pain Left Lower Leg: Pain Intensity: 0 Right Lower Leg: Pain Description: Intermittent Pain Intensity: 0 Pain Management Techniques Other/Comment: Pinchy Wound/Ulcer History When did wound start?: Left leg ulcer 07/25/2023, right leg ulcer Mode of Arrival/ Canvas Repairer: Personal vehicle Lives with:: Alone Appetite Description: Within Normal Limits Who helps w/ dressing change?: Self Why Do You Need Help?: Can't Reach Ulcer Smoking Status: Former smoker [facility] Medical History (Updated 08/07/23 @ 15:06 by Adelia Saldana APRN) Ulcer of right leg Leg ulcer, left IBS (irritable bowel syndrome) Leg ulcer, left Hx of gallstones Hypothyroidism Acid reflux Fibromyalgia Hypertension Heart palpitations Surgical History History of biliary duct stent placement History of bilateral knee replacement History of surgery on arm H/O: hysterectomy 1983 Family History Father Colon cancer Family/Other Colon cancer Mother CHF (congestive heart failure) Social History Smoking Status: Former smoker Tobacco Type: cigarettes Substance Use Type: Marijuana Substance Abuse Comment: medical marijuana Grafts History of Graft History of Graft?: No Exam Physical Exam Vital Signs: Temp Pulse Resp BP O2 Del Method 98.1 F 70 18 144/74 H Room Air 09/25/23 11:30 09/25/23 11:30 09/25/23 11:30 09/25/23 11:30 09/25/23 11:30 Const General: cooperative, healthy appearing, comfortable, no acute distress and wellgroomed Nutritional Appearance: obese Orientation: alert, awake and oriented x3 Lower/Upper Extremity Exam Vascular Exam-Edema Left Lower Extremity: Edema Type: Non-Pitting Right Lower Extremity: Edema Type: Non-Pitting Vascular Exam-Pulses Left Dorsalis Pedis: Pulse Assessment Method: Palpation Left Posterior Tibial: Pulse Assessment Method: Palpation Right Dorsalis Pedis: Pulse Assessment Method: Palpation Right Posterior Tibial: Pulse Assessment Method: Palpation Right Brachial: Pulse Assessment Method: NIBP Objective Meds/Allergies Home Medications amitriptyline 50 mg tablet 50 mg PO DAILY 03/29/17 [History Confirmed 08/07/23] atenolol 50 mg tablet 50 mg PO DAILY 03/29/17 [History Confirmed 08/07/23] gabapentin 100 mg capsule 100 mg PO TID 03/29/17 [History Confirmed 08/07/23] ropinirole 0.25 mg tablet 0.25 mg PO QID 03/29/17 [History Confirmed 08/07/23] tramadol 50 mg tablet 50 mg PO DAILY PRN Pain, Mild 03/29/17 [History Confirmed 08/07/23] levothyroxine 50 mcg tablet 100 mcg PO DAILY 10/23/18 [History Confirmed 08/07/23] omeprazole 40 mg capsule,delayed release 40 mg PO BID #60 caps 05/13/21 [Rx Confirmed 08/07/23] acyclovir 400 mg tablet 400 mg PO DAILY 05/15/22 [History Confirmed 08/07/23] escitalopram oxalate 10 mg tablet 10 mg PO DAILY 05/15/22 [History Confirmed 08/07/23] multivitamin 1 tab PO DAILY 10/05/22 [History Confirmed 08/07/23] ondansetron 4 mg disintegrating tablet 4 mg PO Q6-8H PRN Nausea #10 tabs 12/17/22 [Rx Confirmed 08/07/23] gentamicin 0.1 % topical ointment 1 applic topical 2XW 08/17/23 [History Confirmed 08/17/23] gentamicin 0.1 % topical ointment 1 applic topical .qd Apply with dressing change #15 grams 08/28/23 [Rx] Allergies adhesive Allergy (Unknown, Unverified 02/02/23 07:41) Rash duloxetine Allergy (Unknown, Verified 01/02/23 10:18) swollen feet meloxicam Allergy (Unknown, Verified 01/02/23 10:18) oxaprozin Allergy (Unknown, Verified 01/02/23 10:18) pregabalin [From Lyrica] Allergy (Unknown, Unverified 02/02/23 07:41) Swelling ropinirole [Requip] Allergy (Unknown, Verified 01/02/23 10:18) dizziness tizanidine Allergy (Unknown, Verified 01/02/23 10:18) contact metal agent Adverse Reaction (Verified 02/02/23 07:41) Hives Wound/Ulcer Right Lower Leg: Type: Surgical Wound (from venous procedures) Thickness: Full Bed Appearance: [place] and Yellow Percent of Wound Bed Granulated/Red: 5 Percent of Devitalized: 95 Length (cm): 1.2 Width (cm): 1.5 Depth (cm): 0.1 CM Sq: 1.800 Surrounding Tissue Appearance: Hyperpigmented Surrounding Tissue Temp: Warm Drainage Amount: Scant Drainage Description: Serosanguineous Drainage Odor: No Odor Left Lower Leg: Type: Venous Stasis Ulcer Thickness: Skin Breakdown Bed Appearance: Epithelial Tissue or Bridge Length (cm): 0 Width (cm): 0 Depth (cm): 0 CM Sq: 0.000 Surrounding Tissue Appearance: Hyperpigmented Surrounding Tissue Temp: Warm Drainage Amount: None Drainage Odor: No Odor Results Height: 5 ft 1 in Weight: 79.379 kg Body Mass Index: 33.0 Assessment/Plan Assessment/Plan (1) Leg ulcer, left: Qualifiers: Non-pressure ulcer stage: limited to breakdown of skin Qualified Code(s): L97.921 - Non-pressure chronic ulcer of unspecified part of left lower leg limited to breakdown of skin Code(s): L97.929 - Non-pressure chronic ulcer of unspecified part of left lower leg with unspecified severity Plan: healed 08/14/23 healed 10/03/23 (2) Surgical wound, non healing: Qualifiers: Encounter type: subsequent encounter Qualified Code(s): T81.89XD - Other complications of procedures, not elsewhere classified, subsequent encounter Code(s): T81.89XA - Other complications of procedures, not elsewhere classified, initial encounter Plan: rle (3) Venous stasis dermatitis of left lower extremity: Code(s): I87.2 - Venous insufficiency (chronic) (peripheral) Plan: healed 08/14/23 (4) Varicose veins of both lower extremities: Code(s): I83.93 - Asymptomatic varicose veins of bilateral lower extremities (5) Edema: Code(s): R60.9 - Edema, unspecified Plan: ble's (6) Inflammation: (7) Obesity: Code(s): E66.9 - Obesity, unspecified (8) Pain in wound: (9) Vasculitis: Code(s): I77.6 - Arteritis, unspecified Plan: suspected Plan see orders and hpi Time spent with patient Time Spent With Patient (min): 10 Dictated By: Adelia Saldana APRN DD/ 2 Signed By: <Electronically signed by CUBA Saldana> 10/03/2328 [facility] Work Phone: [phone]) 496-512506-17-2024 Progress note Author Jses Valladares [facility] September 11, 2023 8:36am Note Date/Time September 11, 2023 8:36 am [facility] [address] [place] [address] Wound Center Provider Note Signed Patient: Gerry Victoria MR#: [id number] : 1955 Acct:[id number] Age/Sex: 68 / F Copies to: DO Jess Cruz APRN~ HPI Date of Visit Date of Visit: Date of Service: 09/11/2023 Time of Service: 08:31 Narrative HPI: 07/26/23 Gerry is a 67 year old female presenting to [facility] wound care for an initial visit for the left lower leg ulcer that appears venous and/or vasculitic- it is mostly open blisters with some intact blisters. Lorena has been apatient of the office in the past. She will come here for dressings of steroid topically and unna wrap to the lle and honey gel and bandage to the rle. A probiotic was suggested for gut and immune health and other nutrition suggestions were provided on her discharge papers. She can return in about 1 week. She had been referred to [facility] at a prior visit here and she is currently following with them- she sees them next week for the lle vein procedure. Lorena tells us that she is currently taking oral antibiotics. 08/07/23 left leg ulcer looks great, might be healed later this week, right leg ulcer remains black and so the area was debrided and crosshatched and topical gent was applied today, unna wrap to the left leg and compression sock to the right leg, continues to see [facility], will return later this week for dressings. 08/14/23- Left leg ulcer is healed. Right leg has slightly improved. The eschar was crosshatched. Gent topical will be continued. She is wearing compression stocking to right leg; will apply one to the left when she gets home. She continues to follow with [facility]. Follow-up in 2 weeks. 08/28/23- Gerry reports that she had a vascular procedure on 08/22/23. She has a follow-up with vascular 08/28/23. The right ulcer eschar tissue is loosening up. The area was crosshatched again today. She was encouraged to keep the ulcer covered. The area was open to air on arrival today. Dressing orders will remain the same. Follow-up in 2 weeks. Continue compression stockings to bilateral lower extremities. 09/11/23- Overall improved. She saw vascular on 08/28/23 and reports that there are no further surgical recommendations and they are pleased with progress thus far. The eschar tissue continues to loosen and I was able to remove a small portion. Dressing change orders will be changed to honey gel. She is compliant with her pressure stockings. Follow-up in 2 weeks. Subjective Pain Left Lower Leg: Pain Intensity: 0 Right Lower Leg: Pain Description: Intermittent Pain Intensity: 0 Pain Management Techniques Other/Comment: Pinchy Wound/Ulcer History When did wound start?: Left leg ulcer 07/25/2023, right leg ulcer Mode of Arrival/ Canvas Repairer: Personal vehicle Lives with:: Alone Appetite Description: Within Normal Limits Who helps w/ dressing change?: Wound Care Dept Why Do You Need Help?: Can't Reach Ulcer Smoking Status: Former smoker [facility] Medical History (Updated 08/07/23 @ 15:06 by Adelia Saldana APRN) Ulcer of right leg Leg ulcer, left IBS (irritable bowel syndrome) Leg ulcer, left Hx of gallstones Hypothyroidism Acid reflux Fibromyalgia Hypertension Heart palpitations Surgical History History of biliary duct stent placement History of bilateral knee replacement History of surgery on arm H/O: hysterectomy 1983 Family History Father Colon cancer Family/Other Colon cancer Mother CHF (congestive heart failure) Social History Smoking Status: Former smoker Tobacco Type: cigarettes Substance Use Type: Marijuana Substance Abuse Comment: medical marijuana Grafts History of Graft History of Graft?: No Exam Physical Exam Vital Signs: Temp Pulse Resp BP O2 Del Method 98.2 F 75 18 148/80 H Room Air 09/11/23 08:16 09/11/23 08:16 09/11/23 08:16 09/11/23 08:16 09/11/23 08:16 Const General: cooperative, healthy appearing, comfortable, no acute distress and wellgroomed Nutritional Appearance: obese Orientation: alert, awake and oriented x3 Lower/Upper Extremity Exam Vascular Exam-Edema Left Lower Extremity: Edema Type: Non-Pitting Right Lower Extremity: Edema Type: Non-Pitting Vascular Exam-Pulses Right Dorsalis Pedis: Pulse Assessment Method: Palpation Right Posterior Tibial: Pulse Assessment Method: Palpation Right Brachial: Pulse Assessment Method: Diagnostic Monitor Objective Meds/Allergies Home Medications amitriptyline 50 mg tablet 50 mg PO DAILY 03/29/17 [History Confirmed 08/07/23] atenolol 50 mg tablet 50 mg PO DAILY 03/29/17 [History Confirmed 08/07/23] gabapentin 100 mg capsule 100 mg PO TID 03/29/17 [History Confirmed 08/07/23] ropinirole 0.25 mg tablet 0.25 mg PO QID 03/29/17 [History Confirmed 08/07/23] tramadol 50 mg tablet 50 mg PO DAILY PRN Pain, Mild 03/29/17 [History Confirmed 08/07/23] levothyroxine 50 mcg tablet 100 mcg PO DAILY 10/23/18 [History Confirmed 08/07/23] omeprazole 40 mg capsule,delayed release 40 mg PO BID #60 caps 05/13/21 [Rx Confirmed 08/07/23] acyclovir 400 mg tablet 400 mg PO DAILY 05/15/22 [History Confirmed 08/07/23] escitalopram oxalate 10 mg tablet 10 mg PO DAILY 05/15/22 [History Confirmed 08/07/23] multivitamin 1 tab PO DAILY 10/05/22 [History Confirmed 08/07/23] ondansetron 4 mg disintegrating tablet 4 mg PO Q6-8H PRN Nausea #10 tabs 12/17/22 [Rx Confirmed 08/07/23] gentamicin 0.1 % topical ointment 1 applic topical 2XW 08/17/23 [History Confirmed 08/17/23] gentamicin 0.1 % topical ointment 1 applic topical .qd Apply with dressing change #15 grams 08/28/23 [Rx] Allergies adhesive Allergy (Unknown, Unverified 02/02/23 07:41) Rash duloxetine Allergy (Unknown, Verified 01/02/23 10:18) swollen feet meloxicam Allergy (Unknown, Verified 01/02/23 10:18) oxaprozin Allergy (Unknown, Verified 01/02/23 10:18) pregabalin [From Lyrica] Allergy (Unknown, Unverified 02/02/23 07:41) Swelling ropinirole [Requip] Allergy (Unknown, Verified 01/02/23 10:18) dizziness tizanidine Allergy (Unknown, Verified 01/02/23 10:18) contact metal agent Adverse Reaction (Verified 02/02/23 07:41) Hives Wound/Ulcer Right Lower Leg: Type: Surgical Wound (from venous procedures) Thickness: Full Bed Appearance: Black Dry and Yellow Percent of Wound Bed Granulated/Red: 0 Percent of Devitalized: 100 Length (cm): 1.6 Width (cm): 1.6 Depth (cm): 0.1 CM Sq: 2.560 Surrounding Tissue Appearance: Hyperpigmented Surrounding Tissue Temp: Warm Drainage Amount: Scant Drainage Description: Serosanguineous Drainage Odor: No Odor Lidocaine Applied Topically: 2% Jelly Chemical Cauterization: NA Procedures Time Out: 2 Patient Identifiers, Correct Patient, Correct Side/Site, Correct Procedure and Safety Issues Reviewed Procedure: The right lower leg wound was anesthetized with topical 2% lidocaine. A curette, forcep, and scalpel were used to perform debridement for the removal of 2.5 cm? of devitalized tissue consisting of skin, slough and exudate. Debridement was down to some healthy bleeding tissue. Estimated blood loss was minimal. Hemostasis was achieved by applying direct pressure. The wound now appears 3% more pink and red. The size remains the same in size. The patient tolerated the procedure well with no pain. Results Height: 5 ft 1 in Weight: 79.379 kg Body Mass Index: 33.0 Assessment/Plan Assessment/Plan (1) Leg ulcer, left: Qualifiers: Non-pressure ulcer stage: limited to breakdown of skin Qualified Code(s): L97.921 - Non-pressure chronic ulcer of unspecified part of left lower leg limited to breakdown of skin Code(s): L97.929 - Non-pressure chronic ulcer of unspecified part of left lower leg with unspecified severity Plan: healed 08/14/23 (2) Surgical wound, non healing: Qualifiers: Encounter type: subsequent encounter Qualified Code(s): T81.89XD - Other complications of procedures, not elsewhere classified, subsequent encounter Code(s): T81.89XA - Other complications of procedures, not elsewhere classified, initial encounter Plan: rle (3) Venous stasis dermatitis of left lower extremity: Code(s): I87.2 - Venous insufficiency (chronic) (peripheral) Plan: healed 08/14/23 (4) Varicose veins of both lower extremities: Code(s): I83.93 - Asymptomatic varicose veins of bilateral lower extremities (5) Edema: Code(s): R60.9 - Edema, unspecified Plan: ble's (6) Inflammation: (7) Obesity: Code(s): E66.9 - Obesity, unspecified (8) Pain in wound: (9) Vasculitis: Code(s): I77.6 - Arteritis, unspecified Plan: suspected Plan see orders and hpi Time spent with patient Time Spent With Patient (min): 20 Dictated By: Jess Valladares APRN DD/ 0831 Signed By: <Electronically signed by CUBA Valladares> 09/11/23 0836 [facility] Work Phone: 1(791) 691-400406-03-2024 Progress note Author Jess Valladares [facility] August 28, 2023 11:27am Note Date/Time August 28, 2023 11:23 am [facility] [address] [place] [address] Wound Center Provider Note Signed Patient: Gerry Victoria MR#: [id number] : 1955 Acct:[id number] Age/Sex: 68 / F Copies to: DO Jess Cruz APRN~ HPI Date of Visit Date of Visit: Date of Service: 08/28/2023 Time of Service: 11:22 Narrative HPI: 07/26/23 Gerry is a 67 year old female presenting to [facility] wound care for an initial visit for the left lower leg ulcer that appears venous and/or vasculitic- it is mostly open blisters with some intact blisters. Lorena has been apatient of the office in the past. She will come here for dressings of steroid topically and unna wrap to the lle and honey gel and bandage to the rle. A probiotic was suggested for gut and immune health and other nutrition suggestions were provided on her discharge papers. She can return in about 1 week. She had been referred to [facility] at a prior visit here and she is currently following with them- she sees them next week for the lle vein procedure. Lorena tells us that she is currently taking oral antibiotics. 08/07/23 left leg ulcer looks great, might be healed later this week, right leg ulcer remains black and so the area was debrided and crosshatched and topical gent was applied today, unna wrap to the left leg and compression sock to the right leg, continues to see [facility], will return later this week for dressings. 08/14/23- Left leg ulcer is healed. Right leg has slightly improved. The eschar was crosshatched. Gent topical will be continued. She is wearing compression stocking to right leg; will apply one to the left when she gets home. She continues to follow with [facility]. Follow-up in 2 weeks. 08/28/23- Gerry reports that she had a vascular procedure on 08/22/23. She has a follow-up with vascular 08/28/23. The right ulcer eschar tissue is loosening up. The area was crosshatched again today. She was encouraged to keep the ulcer covered. The area was open to air on arrival today. Dressing orders will remain the same. Follow-up in 2 weeks. Continue compression stockings to bilateral lower extremities. Subjective Pain Left Lower Leg: Pain Intensity: 0 Right Lower Leg: Pain Description: Intermittent Pain Intensity: 0 Pain Management Techniques Other/Comment: Pinchy Wound/Ulcer History When did wound start?: Left leg ulcer 07/25/2023, right leg ulcer Mode of Arrival/ Canvas Repairer: Personal vehicle Lives with:: Alone Appetite Description: Within Normal Limits Who helps w/ dressing change?: Wound Care Dept Why Do You Need Help?: Can't Reach Ulcer Smoking Status: Former smoker [facility] Medical History (Updated 08/07/23 @ 15:06 by Adelia Saldana APRN) Ulcer of right leg Leg ulcer, left IBS (irritable bowel syndrome) Leg ulcer, left Hx of gallstones Hypothyroidism Acid reflux Fibromyalgia Hypertension Heart palpitations Surgical History History of biliary duct stent placement History of bilateral knee replacement History of surgery on arm H/O: hysterectomy 1983 Family History Father Colon cancer Family/Other Colon cancer Mother CHF (congestive heart failure) Social History Smoking Status: Former smoker Tobacco Type: cigarettes Substance Use Type: Marijuana Substance Abuse Comment: medical marijuana Grafts History of Graft History of Graft?: No Exam Physical Exam Vital Signs: Temp Pulse Resp BP O2 Del Method 98.1 F 65 20 124/61 Room Air 08/28/23 11:07 08/28/23 11:07 08/28/23 11:07 08/28/23 11:07 08/28/23 11:07 Const General: cooperative, healthy appearing, comfortable, no acute distress and wellgroomed Nutritional Appearance: obese Orientation: alert, awake and oriented x3 Lower/Upper Extremity Exam Vascular Exam-Edema Left Lower Extremity: Edema Type: Non-Pitting Right Lower Extremity: Edema Type: Non-Pitting Vascular Exam-Pulses Left Brachial: Pulse Assessment Method: NIBP Right Dorsalis Pedis: Pulse Assessment Method: Palpation Right Posterior Tibial: Pulse Assessment Method: Palpation Objective Meds/Allergies Home Medications amitriptyline 50 mg tablet 50 mg PO DAILY 03/29/17 [History Confirmed 08/07/23] atenolol 50 mg tablet 50 mg PO DAILY 03/29/17 [History Confirmed 08/07/23] gabapentin 100 mg capsule 100 mg PO TID 03/29/17 [History Confirmed 08/07/23] ropinirole 0.25 mg tablet 0.25 mg PO QID 03/29/17 [History Confirmed 08/07/23] tramadol 50 mg tablet 50 mg PO DAILY PRN Pain, Mild 03/29/17 [History Confirmed 08/07/23] levothyroxine 50 mcg tablet 100 mcg PO DAILY 10/23/18 [History Confirmed 08/07/23] omeprazole 40 mg capsule,delayed release 40 mg PO BID #60 caps 05/13/21 [Rx Confirmed 08/07/23] acyclovir 400 mg tablet 400 mg PO DAILY 05/15/22 [History Confirmed 08/07/23] escitalopram oxalate 10 mg tablet 10 mg PO DAILY 05/15/22 [History Confirmed 08/07/23] multivitamin 1 tab PO DAILY 10/05/22 [History Confirmed 08/07/23] ondansetron 4 mg disintegrating tablet 4 mg PO Q6-8H PRN Nausea #10 tabs 12/17/22 [Rx Confirmed 08/07/23] gentamicin 0.1 % topical ointment 1 applic topical 2XW 08/17/23 [History Confirmed 08/17/23] gentamicin 0.1 % topical ointment 1 applic topical .qd Apply with dressing change #15 grams 08/28/23 [Rx] Allergies adhesive Allergy (Unknown, Unverified 02/02/23 07:41) Rash duloxetine Allergy (Unknown, Verified 01/02/23 10:18) swollen feet meloxicam Allergy (Unknown, Verified 01/02/23 10:18) oxaprozin Allergy (Unknown, Verified 01/02/23 10:18) pregabalin [From Lyrica] Allergy (Unknown, Unverified 02/02/23 07:41) Swelling ropinirole [Requip] Allergy (Unknown, Verified 01/02/23 10:18) dizziness tizanidine Allergy (Unknown, Verified 01/02/23 10:18) contact metal agent Adverse Reaction (Verified 02/02/23 07:41) Hives Wound/Ulcer Right Lower Leg: Type: Surgical Wound (from venous procedures) Thickness: Full Bed Appearance: Black Dry and Yellow Percent of Wound Bed Granulated/Red: 0 Percent of Devitalized: 100 Length (cm): 1.4 Width (cm): 1.9 Depth (cm): 0.1 CM Sq: 2.660 Surrounding Tissue Appearance: Hyperpigmented Surrounding Tissue Temp: Warm Drainage Amount: Scant Drainage Description: Serosanguineous Drainage Odor: No Odor Lidocaine Applied Topically: 2% Jelly Procedures Time Out: 2 Patient Identifiers, Correct Patient, Correct Side/Site, Correct Procedure and Safety Issues Reviewed Procedure: The right leg wound was anesthetized with topical 2% lidocaine gel. A scalpel was used to crosshatch the eschar. She tolerated this well with no pain. Results Height: 5 ft 1 in Weight: 79.379 kg Body Mass Index: 33.0 Assessment/Plan Assessment/Plan (1) Leg ulcer, left: Qualifiers: Non-pressure ulcer stage: limited to breakdown of skin Qualified Code(s): L97.921 - Non-pressure chronic ulcer of unspecified part of left lower leg limited to breakdown of skin Code(s): L97.929 - Non-pressure chronic ulcer of unspecified part of left lower leg with unspecified severity Plan: healed 08/14/23 (2) Surgical wound, non healing: Qualifiers: Encounter type: subsequent encounter Qualified Code(s): T81.89XD - Other complications of procedures, not elsewhere classified, subsequent encounter Code(s): T81.89XA - Other complications of procedures, not elsewhere classified, initial encounter Plan: rle (3) Venous stasis dermatitis of left lower extremity: Code(s): I87.2 - Venous insufficiency (chronic) (peripheral) Plan: healed 08/14/23 (4) Varicose veins of both lower extremities: Code(s): I83.93 - Asymptomatic varicose veins of bilateral lower extremities (5) Edema: Code(s): R60.9 - Edema, unspecified Plan: ble's (6) Inflammation: (7) Obesity: Code(s): E66.9 - Obesity, unspecified (8) Pain in wound: (9) Vasculitis: Code(s): I77.6 - Arteritis, unspecified Plan: suspected Plan see orders and hpi Time spent with patient Time Spent With Patient (min): 15 Dictated By: Jess Valladares APRN DD/ 21 Signed By: <Electronically signed by CUBA Valladares> 08/28/23 [address] [facility] Work Phone: 1([phone] 173-920305-20-2024 Progress note Author Jess Valladares [facility] August 14, 2023 11:41am Note Date/Time August 14, 2023 11:36 am [facility] [address] [place] [address] Wound Center Provider Note Signed Patient: Gerry Victoria MR#: [id number] : 1955 Acct:[id number] Age/Sex: 67 / F Copies to: Ward Zuniga,DO Jess Valladares APRN~ HPI Date of Visit Date of Visit: Date of Service: 08/14/2023 Time of Service: 11:34 Narrative HPI: 07/26/23 Gerry is a 67 year old female presenting to [facility] wound care for an initial visit for the left lower leg ulcer that appears venous and/or vasculitic- it is mostly open blisters with some intact blisters. Lorena has been apatient of the office in the past. She will come here for dressings of steroid topically and unna wrap to the lle and honey gel and bandage to the rle. A probiotic was suggested for gut and immune health and other nutrition suggestions were provided on her discharge papers. She can return in about 1 week. She had been referred to [facility] at a prior visit here and she is currently following with them- she sees them next week for the lle vein procedure. Lorena tells us that she is currently taking oral antibiotics. 08/07/23 left leg ulcer looks great, might be healed later this week, right leg ulcer remains black and so the area was debrided and crosshatched and topical gent was applied today, unna wrap to the left leg and compression sock to the right leg, continues to see [facility], will return later this week for dressings. 08/14/23- Left leg ulcer is healed. Right leg has slightly improved. The eschar was crosshatched. Gent topical will be continued. She is wearing compression stocking to right leg; will apply one to the left when she gets home. She continues to follow with [facility]. Follow-up in 2 weeks. Subjective Pain Left Lower Leg: Pain Intensity: 0 Right Lower Leg: Pain Intensity: 0 Pain Management Techniques Other/Comment: Pinchy Wound/Ulcer History When did wound start?: Left leg ulcer 07/25/2023, right leg ulcer Mode of Arrival/ Canvas Repairer: Personal vehicle Lives with:: Alone Appetite Description: Within Normal Limits Who helps w/ dressing change?: Wound Care Dept Why Do You Need Help?: Can't Reach Ulcer Smoking Status: Former smoker [facility] Medical History (Updated 08/07/23 @ 15:06 by Adelia Saldana APRN) Ulcer of right leg Leg ulcer, left IBS (irritable bowel syndrome) Leg ulcer, left Hx of gallstones Hypothyroidism Acid reflux Fibromyalgia Hypertension Heart palpitations Surgical History History of biliary duct stent placement History of bilateral knee replacement History of surgery on arm H/O: hysterectomy 1983 Family History Father Colon cancer Family/Other Colon cancer Mother CHF (congestive heart failure) Social History Smoking Status: Former smoker Tobacco Type: cigarettes Substance Use Type: Marijuana Substance Abuse Comment: medical marijuana Grafts History of Graft History of Graft?: No Exam Physical Exam Vital Signs: Temp Pulse Resp BP O2 Del Method 98.6 F 68 20 145/76 H Room Air 08/14/23 11:26 08/14/23 11:26 08/14/23 11:26 08/14/23 11:08/14/23 11:26 Const General: cooperative, healthy appearing, comfortable, no acute distress and wellgroomed Nutritional Appearance: obese Orientation: alert, awake and oriented x3 Lower/Upper Extremity Exam Vascular Exam-Edema Left Lower Extremity: Edema Type: Non-Pitting Right Lower Extremity: Edema Type: Non-Pitting Vascular Exam-Pulses Left Brachial: Pulse Assessment Method: NIBP Left Dorsalis Pedis: Pulse Assessment Method: Palpation Left Posterior Tibial: Pulse Assessment Method: Palpation Right Dorsalis Pedis: Pulse Assessment Method: Palpation Right Posterior Tibial: Pulse Assessment Method: Palpation Objective Meds/Allergies Home Medications amitriptyline 50 mg tablet 50 mg PO DAILY 03/29/17 [History Confirmed 08/07/23] atenolol 50 mg tablet 50 mg PO DAILY 03/29/17 [History Confirmed 08/07/23] gabapentin 100 mg capsule 100 mg PO TID 03/29/17 [History Confirmed 08/07/23] ropinirole 0.25 mg tablet 0.25 mg PO QID 03/29/17 [History Confirmed 08/07/23] tramadol 50 mg tablet 50 mg PO DAILY PRN Pain, Mild 03/29/17 [History Confirmed 08/07/23] levothyroxine 50 mcg tablet 100 mcg PO DAILY 10/23/18 [History Confirmed 08/07/23] omeprazole 40 mg capsule,delayed release 40 mg PO BID #60 caps 05/13/21 [Rx Confirmed 08/07/23] acyclovir 400 mg tablet 400 mg PO DAILY 05/15/22 [History Confirmed 08/07/23] escitalopram oxalate 10 mg tablet 10 mg PO DAILY 05/15/22 [History Confirmed 08/07/23] multivitamin 1 tab PO DAILY 10/05/22 [History Confirmed 08/07/23] ondansetron 4 mg disintegrating tablet 4 mg PO Q6-8H PRN Nausea #10 tabs 12/17/22 [Rx Confirmed 08/07/23] Allergies adhesive Allergy (Unknown, Unverified 02/02/23 07:41) Rash duloxetine Allergy (Unknown, Verified 01/02/23 10:18) swollen feet meloxicam Allergy (Unknown, Verified 01/02/23 10:18) oxaprozin Allergy (Unknown, Verified 01/02/23 10:18) pregabalin [From Lyrica] Allergy (Unknown, Unverified 02/02/23 07:41) Swelling ropinirole [Requip] Allergy (Unknown, Verified 01/02/23 10:18) dizziness tizanidine Allergy (Unknown, Verified 01/02/23 10:18) contact metal agent Adverse Reaction (Verified 02/02/23 07:41) Hives Wound/Ulcer Right Lower Leg: Type: Surgical Wound (from venous procedures) Thickness: Full Bed Appearance: Black Dry Percent of Wound Bed Granulated/Red: 0 Percent of Devitalized: 100 Length (cm): 1.2 Width (cm): 1.5 Depth (cm): 0.1 CM Sq: 1.800 Surrounding Tissue Appearance: Hyperpigmented Surrounding Tissue Temp: Warm Drainage Amount: Scant Drainage Description: Serosanguineous Drainage Odor: No Odor Lidocaine Applied Topically: 2% Jelly Left Lower Leg: Type: Venous Stasis Ulcer Thickness: Skin Breakdown Bed Appearance: Other Percent of Wound Bed Granulated/Red: 80 Percent of Devitalized: 20 Length (cm): 0 Width (cm): 0 Depth (cm): 0 CM Sq: 0.000 Surrounding Tissue Appearance: Hyperpigmented Surrounding Tissue Temp: Warm Drainage Amount: None Drainage Description: Serosanguineous Drainage Odor: No Odor Procedures Time Out: 2 Patient Identifiers, Correct Patient, Correct Side/Site, Correct Procedure and Safety Issues Reviewed Procedure: The right leg wound was anesthetized with topical 2% lidocaine gel. A scalpel was used to crosshatch the eschar. She tolerated this well with no pain. Results Height: 5 ft 1 in Weight: 79.379 kg Body Mass Index: 33.0 Assessment/Plan Assessment/Plan (1) Leg ulcer, left: Qualifiers: Non-pressure ulcer stage: limited to breakdown of skin Qualified Code(s): L97.921 - Non-pressure chronic ulcer of unspecified part of left lower leg limited to breakdown of skin Code(s): L97.929 - Non-pressure chronic ulcer of unspecified part of left lower leg with unspecified severity Plan: healed 08/14/23 (2) Surgical wound, non healing: Qualifiers: Encounter type: subsequent encounter Qualified Code(s): T81.89XD - Other complications of procedures, not elsewhere classified, subsequent encounter Code(s): T81.89XA - Other complications of procedures, not elsewhere classified, initial encounter Plan: rle (3) Venous stasis dermatitis of left lower extremity: Code(s): I87.2 - Venous insufficiency (chronic) (peripheral) Plan: healed 08/14/23 (4) Varicose veins of both lower extremities: Code(s): I83.93 - Asymptomatic varicose veins of bilateral lower extremities (5) Edema: Code(s): R60.9 - Edema, unspecified Plan: ble's (6) Inflammation: (7) Obesity: Code(s): E66.9 - Obesity, unspecified (8) Pain in wound: (9) Vasculitis: Code(s): I77.6 - Arteritis, unspecified Plan: suspected Plan see orders and hpi Time spent with patient Time Spent With Patient (min): 20 Dictated By: Jess Valladares APRN DD/ 1134 Signed By: <Electronically signed by CUBA Valladares> 08/14/23 [address] [facility] Work Phone: [phone]) 887-264905-13-2024 Progress note Author Adelia Saldana [facility] August 07, 2023 3:07pm Note Date/Time August 07, 2023 3:07p [facility] [address] [place] [address] Wound Center Provider Note Signed Patient: Gerry Victoria MR#: [id number] : 1955 Acct:[id number] Age/Sex: 67 / F Copies to: DO Adelia Cruz APRN~ HPI Date of Visit Date of Visit: Date of Service: 08/07/2023 Time of Service: 15:03 Narrative HPI: 07/26/23 Gerry is a 67 year old female presenting to [facility] wound care for an initial visit for the left lower leg ulcer that appears venous and/or vasculitic- it is mostly open blisters with some intact blisters. Lorena has been apatient of the office in the past. She will come here for dressings of steroid topically and unna wrap to the lle and honey gel and bandage to the rle. A probiotic was suggested for gut and immune health and other nutrition suggestions were provided on her discharge papers. She can return in about 1 week. She had been referred to [facility] at a prior visit here and she is currently following with them- she sees them next week for the lle vein procedure. Lorena tells us that she is currently taking oral antibiotics. 08/07/23 left leg ulcer looks great, might be healed later this week, right leg ulcer remains black and so the area was debrided and crosshatched and topical gent was applied today, unna wrap to the left leg and compression sock to the right leg, continues to see [facility], will return later this week for dressings Subjective Pain Left Lower Leg: Pain Intensity: 0 Right Lower Leg: Pain Intensity: 0 Wound/Ulcer History When did wound start?: Left leg ulcer 07/25/2023, right leg ulcer Mode of Arrival/ Canvas Repairer: Personal vehicle Lives with:: Alone Appetite Description: Within Normal Limits Who helps w/ dressing change?: Wound Care Dept Why Do You Need Help?: Can't Reach Ulcer Smoking Status: Former smoker [facility] Medical History (Updated 08/07/23 @ 15:06 by Adelia Saldana APRN) Ulcer of right leg Leg ulcer, left IBS (irritable bowel syndrome) Leg ulcer, left Hx of gallstones Hypothyroidism Acid reflux Fibromyalgia Hypertension Heart palpitations Surgical History History of biliary duct stent placement History of bilateral knee replacement History of surgery on arm H/O: hysterectomy 1983 Family History Father Colon cancer Family/Other Colon cancer Mother CHF (congestive heart failure) Social History Smoking Status: Former smoker Tobacco Type: cigarettes Substance Use Type: Marijuana Substance Abuse Comment: medical marijuana Grafts History of Graft History of Graft?: No Exam Physical Exam Vital Signs: Temp Pulse Resp BP O2 Del Method 98.2 F 74 20 137/64 Room Air 08/07/23 14:52 08/07/23 14:52 08/07/23 14:52 08/07/23 14:52 08/03/23 13:15 Const General: cooperative, healthy appearing, comfortable, no acute distress and wellgroomed Nutritional Appearance: obese Orientation: alert, awake and oriented x3 Lower/Upper Extremity Exam Vascular Exam-Edema Left Lower Extremity: Edema Type: Non-Pitting Right Lower Extremity: Edema Type: Non-Pitting Vascular Exam-Pulses Left Brachial: Pulse Assessment Method: NIBP Left Dorsalis Pedis: Pulse Assessment Method: Palpation Left Posterior Tibial: Pulse Assessment Method: Palpation Right Dorsalis Pedis: Pulse Assessment Method: Palpation Right Posterior Tibial: Pulse Assessment Method: Palpation Objective Meds/Allergies Home Medications amitriptyline 50 mg tablet 50 mg PO DAILY 03/29/17 [History Confirmed 08/07/23] atenolol 50 mg tablet 50 mg PO DAILY 03/29/17 [History Confirmed 08/07/23] gabapentin 100 mg capsule 100 mg PO TID 03/29/17 [History Confirmed 08/07/23] ropinirole 0.25 mg tablet 0.25 mg PO QID 03/29/17 [History Confirmed 08/07/23] tramadol 50 mg tablet 50 mg PO DAILY PRN Pain, Mild 03/29/17 [History Confirmed 08/07/23] levothyroxine 50 mcg tablet 100 mcg PO DAILY 10/23/18 [History Confirmed 08/07/23] omeprazole 40 mg capsule,delayed release 40 mg PO BID #60 caps 05/13/21 [Rx Confirmed 08/07/23] acyclovir 400 mg tablet 400 mg PO DAILY 05/15/22 [History Confirmed 08/07/23] escitalopram oxalate 10 mg tablet 10 mg PO DAILY 05/15/22 [History Confirmed 08/07/23] multivitamin 1 tab PO DAILY 10/05/22 [History Confirmed 08/07/23] ondansetron 4 mg disintegrating tablet 4 mg PO Q6-8H PRN Nausea #10 tabs 12/17/22 [Rx Confirmed 08/07/23] Allergies adhesive Allergy (Unknown, Unverified 02/02/23 07:41) Rash duloxetine Allergy (Unknown, Verified 01/02/23 10:18) swollen feet meloxicam Allergy (Unknown, Verified 01/02/23 10:18) oxaprozin Allergy (Unknown, Verified 01/02/23 10:18) pregabalin [From Lyrica] Allergy (Unknown, Unverified 02/02/23 07:41) Swelling ropinirole [Requip] Allergy (Unknown, Verified 01/02/23 10:18) dizziness tizanidine Allergy (Unknown, Verified 01/02/23 10:18) contact metal agent Adverse Reaction (Verified 02/02/23 07:41) Hives Wound/Ulcer Right Lower Leg: Type: Surgical Wound (from venous procedures) Thickness: Full Bed Appearance: Black Dry Percent of Wound Bed Granulated/Red: 0 Percent of Devitalized: 100 Length (cm): 1.4 Width (cm): 1.5 Depth (cm): 0.1 CM Sq: 2.100 Surrounding Tissue Appearance: Hyperpigmented Surrounding Tissue Temp: Warm Drainage Amount: Scant Drainage Description: Serosanguineous Drainage Odor: No Odor Lidocaine Applied Topically: 2% Jelly Left Lower Leg: Type: Venous Stasis Ulcer Thickness: Skin Breakdown Bed Appearance: Beefy Red, [place] and Yellow Percent of Wound Bed Granulated/Red: 80 Percent of Devitalized: 20 Length (cm): 1.5 Width (cm): 1.4 Depth (cm): 0.1 CM Sq: 2.100 Surrounding Tissue Appearance: Hyperpigmented Surrounding Tissue Temp: Warm Drainage Amount: Large Drainage Description: Serosanguineous Drainage Odor: No Odor Procedures Time Out: 2 Patient Identifiers, Correct Patient, Correct Side/Site, Correct Procedure and Safety Issues Reviewed Procedure: The right leg wound was anesthetized with topical 2% lidocaine gel. A forcep and scalpel was used to perform debridement for the removal of 1 cm? of devitalized tissue consisting of skin and slough and dry eschar. Debridement was down to healthy bleeding tissue. Estimated blood loss was minimal. Hemostasis was achieved by applying pressure. The right leg wound now appears more or less the same and the size remains the same. The patient tolerated wellbut was uncomfortable. The scalpel was used to crosshatch the eschar. She tolerated this well with no pain. Results Height: 5 ft 1 in Weight: 79.379 kg Body Mass Index: 33.0 Assessment/Plan Assessment/Plan (1) Leg ulcer, left: Qualifiers: Non-pressure ulcer stage: limited to breakdown of skin Qualified Code(s): L97.921 - Non-pressure chronic ulcer of unspecified part of left lower leg limited to breakdown of skin Code(s): L97.929 - Non-pressure chronic ulcer of unspecified part of left lower leg with unspecified severity (2) Surgical wound, non healing: Qualifiers: Encounter type: subsequent encounter Qualified Code(s): T81.89XD - Other complications of procedures, not elsewhere classified, subsequent encounter Code(s): T81.89XA - Other complications of procedures, not elsewhere classified, initial encounter Plan: rle (3) Venous stasis dermatitis of left lower extremity: Code(s): I87.2 - Venous insufficiency (chronic) (peripheral) (4) Varicose veins of both lower extremities: Code(s): I83.93 - Asymptomatic varicose veins of bilateral lower extremities (5) Edema: Code(s): R60.9 - Edema, unspecified Plan: ble's (6) Inflammation: (7) Obesity: Code(s): E66.9 - Obesity, unspecified (8) Pain in wound: (9) Vasculitis: Code(s): I77.6 - Arteritis, unspecified Plan: suspected Plan see orders and hpi Time spent with patient Time Spent With Patient (min): 11 Dictated By: Adelia Saldana APRN DD/ 1503 Signed By: <Electronically signed by CUBA Saldana> 08/07/23 [address] [facility] Work Phone: 1(321) 192-764905-01-2024 Progress note Author Adelia Saldana [facility] July 26, 2023 3:50pm Note Date/Time July 26, 2023 3:50pm [facility] [address] [place] [address] Wound Center Provider Note Signed Patient: Gerry Victoria MR#: [id number] : 1955 Acct:[id number] Age/Sex: 67 / F Copies to: MD Ward Maharaj,DO Adelia Sadlana APRN~ HPI Date of Visit Date of Visit: Date of Service: 07/26/2023 Time of Service: 15:42 Narrative HPI: 07/26/23 Gerry is a 67 year old female presenting to [facility] wound care for an initial visit for the left lower leg ulcer that appears venous and/or vasculitic- it is mostly open blisters with some intact blisters. Lorena has been apatient of the office in the past. She will come here for dressings of steroid topically and unna wrap to the lle and honey gel and bandage to the rle. A probiotic was suggested for gut and immune health and other nutrition suggestions were provided on her discharge papers. She can return in about 1 week. She had been referred to [facility] at a prior visit here and she is currently following with them- she sees them next week for the lle vein procedure. Lorena tells us that she is currently taking oral antibiotics. Subjective Pain Left Lower Leg: Pain Intensity: 0 Right Lower Leg: Pain Intensity: 0 Wound/Ulcer History When did wound start?: Left leg ulcer 07/25/2023, right leg ulcer Mode of Arrival/ Canvas Repairer: Personal vehicle Lives with:: Alone Appetite Description: Within Normal Limits Who helps w/ dressing change?: Wound Care Dept Why Do You Need Help?: Can't Reach Ulcer Smoking Status: Former smoker [facility] Medical History (Updated 07/26/23 @ 15:48 by Adelia Saldana APRN) Ulcer of right leg Leg ulcer, left IBS (irritable bowel syndrome) Leg ulcer, left Hx of gallstones Hypothyroidism Acid reflux Fibromyalgia Hypertension Heart palpitations Surgical History History of biliary duct stent placement History of bilateral knee replacement History of surgery on arm H/O: hysterectomy 1983 Family History Father Colon cancer Family/Other Colon cancer Mother CHF (congestive heart failure) Social History Smoking Status: Former smoker Tobacco Type: cigarettes Substance Use Type: Marijuana Substance Abuse Comment: medical marijuana Grafts History of Graft History of Graft?: No Exam Physical Exam Vital Signs: Temp Pulse Resp BP O2 Del Method 98.4 F 71 24 154/80 H Room Air 07/26/23 15:30 07/26/23 15:30 07/26/23 15:30 07/26/23 15:30 07/26/23 15:30 Const General: cooperative, healthy appearing, comfortable, no acute distress and wellgroomed Nutritional Appearance: obese Orientation: alert, awake and oriented x3 Lower/Upper Extremity Exam Vascular Exam-Edema Left Lower Extremity: Edema Type: Non-Pitting Right Lower Extremity: Edema Type: Non-Pitting Vascular Exam-Pulses Left Brachial: Pulse Assessment Method: NIBP Left Dorsalis Pedis: Pulse Assessment Method: Palpation Left Posterior Tibial: Pulse Assessment Method: Palpation Right Dorsalis Pedis: Pulse Assessment Method: Palpation Right Posterior Tibial: Pulse Assessment Method: Palpation Objective [...] 2 weeks #30 grams 02/14/23 [Rx] Allergies adhesive Allergy (Unknown, Unverified 02/02/23 07:41) Rash duloxetine Allergy (Unknown, Verified 01/02/23 10:18) swollen feet meloxicam Allergy (Unknown, Verified 01/02/23 10:18) oxaprozin Allergy (Unknown, Verified 01/02/23 10:18) pregabalin [From Lyrica] Allergy (Unknown, Unverified 02/02/23 07:41) Swelling ropinirole [Requip] Allergy (Unknown, Verified 01/02/23 10:18) dizziness tizanidine Allergy (Unknown, Verified 01/02/23 10:18) contact metal agent Adverse Reaction (Verified 02/02/23 07:41) Hives Wound/Ulcer Right Lower Leg: Type: Surgical Wound (from venous procedures) Thickness: Full Bed Appearance: Black Dry Percent of Wound Bed Granulated/Red: 0 Percent of Devitalized: 100 Length (cm): 1 Width (cm): 1.5 Depth (cm): 0.1 CM Sq: 1.500 Surrounding Tissue Appearance: [place] and Rash/Irritation Surrounding Tissue Temp: Warm Drainage Amount: None Drainage Odor: No Odor Left Lower Leg: Type: Venous Stasis Ulcer Thickness: Skin Breakdown Bed Appearance: Epithelial Tissue or [place] Percent of Wound Bed Granulated/Red: 100 Percent of Devitalized: 0 Length (cm): 5 Width (cm): 4 Depth (cm): 0.1 CM Sq: 20.000 Surrounding Tissue Appearance: [place] and Rash/Irritation Surrounding Tissue Temp: Warm Drainage Amount: Moderate Drainage Description: Serous Procedures Time Out: 2 Patient Identifiers, Correct Patient, Correct Side/Site, Correct Procedure and Safety Issues Reviewed Procedure: the right leg ulcer was crosshatched with a scalpel after the area had been anesthetized with topical 2% jelly- this was not a debridement- there was no bleeding or tissue removal Results Height: 5 ft 1 in Weight: 79.379 kg Body Mass Index: 33.0 Assessment/Plan Assessment/Plan (1) Leg ulcer, left: Qualifiers: Non-pressure ulcer stage: limited to breakdown of skin Qualified Code(s): L97.921 - Non-pressure chronic ulcer of unspecified part of left lower leg limited to breakdown of skin Code(s): L97.929 - Non-pressure chronic ulcer of unspecified part of left lower leg with unspecified severity (2) Surgical wound, non healing: Qualifiers: Encounter type: initial encounter Qualified Code(s): T81.89XA - Other complications of procedures, not elsewhere classified, initial encounter Code(s): T81.89XA - Other complications of procedures, not elsewhere classified, initial encounter Plan: rle (3) Venous stasis dermatitis of left lower extremity: Code(s): I87.2 - Venous insufficiency (chronic) (peripheral) (4) Varicose veins of both lower extremities: Code(s): I83.93 - Asymptomatic varicose veins of bilateral lower extremities (5) Edema: Code(s): R60.9 - Edema, unspecified Plan: ble's (6) Inflammation: (7) Obesity: Code(s): E66.9 - Obesity, unspecified (8) Pain in wound: (9) Vasculitis: Code(s): I77.6 - Arteritis, unspecified Plan: suspected Plan see orders and hpi Time spent with patient Time Spent With Patient (min): 14 Dictated By: Adelia Saldana APRN DD/ 1542 Signed By: <Electronically signed by CUBA Saldana> 07/26/23 2530 [facility] Work Phone: 1(976) 571-485202-14-2024 History of Present illness Narrative* Angelita Carbone, PT - 05/10/2023 2:00 PM EST Physical Therapy Physical Therapy Treatment Visit Patient Name: Gerry Victoria Today's Date: 05/10/2023 Encounter Diagnoses Name Primary? Internal derangement of left shoulder Yes Visit number: 3 Supervised time: 40 minutes Total time: 40 minutes Precautions: None Subjective Pain: 6/10 L shoulder pain associated w/ reaching outward, otherwise pain intensity and frequency is much less than at SOC. Pt. Reports 0-1/10 pain presenting to session today. Overall progress: Improving, decreased frequency of pain. At times d/t feeling better pt. States she reaches w/o thinking causing immediate onset of pain. Objective: PROM: L shoulder flexion 160 degrees L shoulder abduction 145 degrees w/ empty painful end feel L shoulder ER full in 45 degrees abduction L shoulder IR 70 degrees in 45 degrees abduction. Treatment: Manual: GH joint GI oscillation/mobilization for pain management, PROM L shoulder w/ GIII inferior GH joint mobilization to facilitate abduction x 15 minutes Therapeutic Exercise: per flow sheet for L shoulder AROM x 25 minutes Modalities: deferred and reports she will apply ice at home. Assessment: Pt. Demonstrates near full PROM w/o pain. Able to perform supine active flexion through full available range w/o pain limiting, however SL abduction to 90 degree is difficulty w/ fair control descending arm. Trialed use of 1# w SL abduction and pt. Unable to complete more than 1 repetition. Pt. Will benefit from slow RTC strength progression to maximize function of L UE. Increased repetition w/ AROM today to facilitate strength gains. Plan: Gerry Victoria will benefit from physical therapy 2 times per week for 4-8 weeks per above plan of care. documented in this encounterSaint Joseph Hospital [id number] Miscellaneous Notes* Telephone Encounter - Susu Leigh OCCA - 05/03/2023 11:05 AM EST Called and spoke with patient regarding prep instructions for upcoming procedure on 05/08/2023. Patient verbalized understanding and made aware prep instructions were also posted to My Chart, patient informed to call [phone] and ask for nurse triage with any [...] small sip of water unless instructed differently byyour physician. 1 week prior to your procedure: If you take insulin, diabetic medications or blood thinners such as Coumadin (warfarin), Plavix (clopidogrel), Ticlid (ticlopidine hydrochloride), Agrylin (anagrelide), Xarelto (Rivaroxaban), Pradaxa(Dabigatran), Eliquis (Apixaban), and Effient (Prasugrel). You MUST [...] or the morning of Procedure/Surgery, please contact [facility] where you are scheduled. - YOU MUST HAVE A RESPONSIBLE SUPERINTENDENT CEMETERY TAKE YOU HOME. A NURSE SCHOOL OR CROSSCUTTER CANNOT BE MADE A RESPONSIBLE SUPERINTENDENT CEMETERY. Please call [phone] and ask for Nurse Triage with any Questions or Concerns. Thank You documented in this encounterUniversity Hospitals Health System12-07-2023 Hospital Discharge instructions Patient Education 03/02/2023 13:35:40 Kegel Exercises [...] muscles. These are the same muscles you squeezewhen you try to stop the flow of [...] tight lift in your rectal area. If youare a female, you should also feel a [...] provider. Document Revised: 07/22/2021 Document Reviewed: 07/22/2021 [employer] Patient Education 2022 FunCaptcha. Follow Up Care 11/30/2021 13:34:28 With:DARRYN Alicia APRN, SHAHNAZ Ovalles, URL Address: When:Within 1 Year(s) [facility] 12-04-2023 Progress note Author Adelia Saldana [facility] February 27, 2023 2:36pm Note Date/Time February 27, 2023 2 :36pm [facility] [address] [place] [address] Wound Center Provider Note Signed Patient: Gerry Victoria MR#: [id number] : 1955 Acct:[id number] Age/Sex: 67 / F Copies to: DO Adelia Cruz APRN~ HPI Date of Visit Date of Visit: Date of Service: 02/27/2023 Time of Service: 14:33 Narrative HPI: 02/02/23 Gerry is a 67 year old presenting to [facility] wound care for an initialvisit for [...] tolerate the treatment. Had been referred to [place] [facility] at her last visit here and will have to see what happened with that. 02/13/23 appears to have fungal rash, topical nystatin was escribed, unna wrap, [facility] as before 02/27/23 no fungal rash but now looks like dermatitis and so topical steroid and coconut oil was applied, has venous procedure in [place] tomorrow, 2 week appt here, can call if she feels like she needs an antibiotic if the steroid doesn't calm down the skin Subjective Pain Left Lower Leg: Pain Description: Intermittent Pain Intensity: 0 Wound/Ulcer History When did wound start?: January 2023 Left lateral lower leg ulcer Mode of Arrival/ Canvas Repairer: Personal vehicle Lives with:: Alone Appetite Description: Within Normal Limits Who helps w/ dressing change?: Home Health Why Do You Need Help?: Can't Reach Ulcer, Limited mobility, Unsafe leave home byself and Taxing effort to leave home Smoking Status: Former smoker [facility] Medical History (Updated 02/27/23 @ 14:36 [...] Appearance: Beefy Red, Epithelial Tissue or Bridge, [place] and Yellow Percent of Wound Bed Granulated/Red: 98 Percent of Devitalized: 2 Length (cm): 12.0 Width (cm): 10.0 Depth (cm): 0.1 CM Sq: 120.000 Surrounding Tissue Appearance: [place] and Hyperpigmented Surrounding Tissue Temp: Warm Drainage [...] <Electronically signed by CUBA Saldana> 02/27/23 1436 [facility] Work Phone: 1(707) 859-105311-20-2023 Progress note Author Adelia Saldana [facility] February 13, 2023 10:33am Note Date/Time February 13, 2023 10:33am [facility] [address] [place] [address] Wound Center Provider Note Signed Patient: Gerry Victoria MR#: [id number] : 1955 Acct:[id number] Age/Sex: 67 / F Copies to: Ward Zuniga,DO Adelia Saldana APRN~ HPI Date of Visit Date of Visit: Date of Service: 02/13/2023 Time of Service: 10:31 Narrative HPI: 02/02/23 Gerry is a 67 year old presenting to [facility] wound care for an initialvisit for [...] tolerate the treatment. Had been referred to [facility] at her last visit here and will have to see what happened with that. 02/13/23 appears to have fungal rash, topical nystatin was escribed, unna enzo, [facility] as before Subjective Pain Left Lower Leg: Pain Description: Intermittent Pain Intensity: 4 Pain Management Techniques Other/Comment: PAIN IS PINCHY Wound/Ulcer History When did wound start?: January 2023 Left lateral lower leg ulcer Mode of Arrival/ Canvas Repairer: Personal vehicle Lives with:: Alone Appetite Description: Within Normal Limits Who helps w/ dressing change?: Home Health Why Do You Need Help?: Can't Reach Ulcer, Limited mobility, Unsafe leave home byself and Taxing effort to leave home Smoking Status: Former smoker [facility] Medical History (Updated 02/13/23 @ 10:33 [...] Breakdown Bed Appearance: Epithelial Tissue or Bridge, [place] and Yellow Percent of Wound Bed Granulated/Red: 95 Percent of Devitalized: 5 Length (cm): 12.5 Width (cm): 8.5 Depth (cm): 0.1 CM Sq: 106.250 Surrounding Tissue Appearance: [place] and Hyperpigmented Surrounding Tissue Temp: Warm Drainage [...] <Electronically signed by CUBA Saldana> 02/13/23 1033 [facility] Work Phone: 1(313) 660-943611-09-2023 Progress note Author Humphrey Major [facility] February 02, 2023 9:37am Note Date/Time February 02, 2023 7 :50am [facility] [address] [place] [address] Wound Center Provider Note Signed Patient: Gerry Victoria MR#: [id number] : 1955 Acct:[id number] Age/Sex: 67 / F Copies to: MD Ward Almaguer DO Tonia Copsey, APRN~ HPI Date of Visit Date of Visit: Date of Service: 02/02/2023 Time of Service: 07:50 Narrative HPI: 02/02/23 Gerry is a 67 year old presenting to [facility] wound care for an initialvisit for [...] tolerate the treatment. Had been referred to [facility] at her last visit here and will have to see what happened with that. Subjective Pain Left Lower Leg: Pain Description: Intermittent and Aching Pain Intensity: 4 Wound/Ulcer History When did wound start?: January 2023 Left lateral lower leg ulcer Mode of Arrival/ Canvas Repairer: Personal vehicle Lives with:: Alone Appetite Description: Within Normal Limits Who helps w/ dressing change?: Home Health Why Do You Need Help?: Can't Reach Ulcer, Limited mobility, Unsafe leave home byself and Taxing effort to leave home Smoking Status: Former smoker [facility] Medical History (Updated 02/02/23 @ 07:52 [...] Stasis Ulcer Thickness: Skin Breakdown Bed Appearance: [place] and Yellow Percent of Wound Bed Granulated/Red: 90 Percent of Devitalized: 10 Length (cm): 4 Width (cm): 2 Depth (cm): 0.1 CM Sq: 8.000 Surrounding Tissue Appearance: [place] and Hyperpigmented Surrounding Tissue Temp: Warm Drainage [...] signed by MD Humphrey Major> 02/02/23 0937 [facility] Work Phone: 1(442) 698-453310-09-2023 Evaluation note* Encounter Date Diagnosis Assessment Notes [...] in a month to assess her progress. [facility] Other 07-31-2023 Evaluation note* Encounter Date Diagnosis [...] her back when the ultrasound is complete. [facility] Other 07-11-2023 NoteMicrobiology PROCEDURE: Blood Culture Charcoal [...] performed at: [facility], [address] [place] [address], [id number], JrrcimZanesville City HospitalComment on above:Performed By: #### [id number] #### [facility] [address] [place] [address] [id number] NoteMicrobiology PROCEDURE: Blood Culture Charcoal [R1] SOURCE: [...] performed at: [facility], [address] [place] [address], [id number] , , IjvyadZanesville City HospitalComment on above:Performed By: #### [id number] #### [facility] [address] [place] [address] [id number] Evaluation + Plan noteExtracted from: Title:Admission H & P Author:Maliha PADILLA DO Date:09/27/22 1. Cellulitis of leg (L03.11 9: Cellulitis of unspecified part of limb) IV Zosyn. Patient was given 1 dose of vancomycin in the emergency department. Will screen for MRSA. If MRSA screen is positive we will continue vancomycin. 2. CAD (coronary atherosclerotic disease) (I25.10: Atherosclerotic heart disease of [place] coronary artery without angina pectoris) No active [...] deep vein thrombosis (DVT) prophylaxis (Z79.899: Other usp (current) drug therapy) SCD, enoxaparin Orders: acetaminophen, [...] Date:12/01/2022 01:00:00 PM Scheduled Provider:MARYCARMEN NAVA PA-C Location:[facility] Appointment Type:URO Office Visit Diagnostic Tests Pending * Blood Culture Charcoal 09/27/22 * Blood Culture Charcoal 09/27/22 * MRSA Screen 09/27/22 * CBC w/ Auto Diff 09/28/22 * Basic Metabolic Panel 09/28/22 * Magnesium Level 09/28/22 [facility]07-04-2023 NoteI was called to the bedside [...] Beal DO\.br\Date and Time Signed: 09/27/22 08:17 [id number] Hospital Discharge instructions Patient Education 09/27/2022 08:15:11 Cellulitis, Adult, Izmy-rh-Bkbd Cellulitis, Adult Cellulitis is a skin infection. [...] Follow these instructions at home: Medicines Take szbx-eeb-addyfel and prescription medicines only as told by [...] provider. Document Revised: 12/23/2021 Document Reviewed: 12/23/2021 [employer] Patient Education 2022 FunCaptcha. Follow Up Care 09/26/2022 22:54:12 With:WARD ZUNIGA Address: [facility] [address] [address] When:09/30/2022 [facility]07-04-2023 NoteChief Complaint pt to ED with [...] % (09/27/22:12:00) Lymph Auto: 18 % (09/27/22:12:00) [place] Auto: 11.2 % (09/27/22:12:00) Eos Auto: 8.4 % High (09/27/22:12:00) Basophil Auto: 1 % (09/27/22:12:00) Neutro Absolute: 3.6 E9/L (09/27/22:12:00) Lymph Absolute: 1.1 E9/L (09/27/22:12:00) [place] Absolute: 0.7 E9/L (09/27/22:12:00) Eos Absolute: 0.5 [...] 7 gm/dL (09/27/22:12:00) Albumin Lvl: 3.8 gm/dL (09/27/22 01:12:00) Globulin: 3.2 gm/dL (09/27/22 01:12:00) A/G Ratio: 1.2 (09/27/22 01:12:00) Bili Total: [...] atherosclerotic disease) (I25.10: Atherosclerotic heart disease of lovelock coronaryartery without angina pectoris) No active anginal complaints. We will resume home medications once reconciled 3. RLS (restless legs syndrome) (G25.81: Restless legs syndrome) Resume home medications once reconciled. 4. Hypo (more content not included)...[facility] City HospitalComment on above:Result Comment: Electronically Signed By: Maliha PADILLA DO.dahlia\Date and Time Signed: 09/27/22 04:19 [id number] Hospital Discharge instructions Patient Education 07/26/2022 13:13:28 Post Op Patient Instructions - FT (CUSTOM) 07/26/2022 12:47:31 Minimally Invasive Cholecystectomy, Care After, Oetj-xz-Ojee Minimally Invasive Cholecystectomy, Care After What can [...] Follow these instructions at home: Medicines Take zbvr-zzx-abtiaai and prescription medicines only as told by [...] cannot use soap and water, use hand comedian. ?Change your bandage. ?Leave stitches (sutures) or [...] provider. Document Revised: 09/14/2021 Document Reviewed: 09/14/2021 [employer] Patient Education 2022 FunCaptcha. 07/26/2022 12:45:51 Cholelithiasis Cholelithiasis Cholelithiasis is a [...] Follow these instructions at home: Medicines Take qrly-tyy-svdozdq and prescription medicines only as told by [...] important. Where to find more information National [place] of Diabetes and Digestive and Kidney Diseases: [...] provider. Document Revised: 02/03/2020 Document Reviewed: 02/03/2020 [employer] Patient Education 2022 FunCaptcha. Follow Up Care 07/15/2022 10:10:38 With:trauma clinic Address: [address] [place] [address], second floor, [address] [place] [address]- [phone] When:1 to 2 weeks Comments:plan for telephone follow up 08/05/22. We will call you between the hours of 10 am and 1pm on that day. [facility]05-02-2023 Evaluation + Plan noteExtracted from: Title:ANES Post General Author:Hugo Winston DO Date:07/26/22 Plan Transfer/Discharge: Patient exhibiting no signs of N/V. Hydration status is adequate. Extracted from: Title:Mundo Basic PRE Author:Luca Winston DO. Date:07/26/22 Plan [place] [employer] Anesthesiologists (ASA) physical status classification: Class III. Anesthetic Preoperative Plan: Anesthesia General. Extracted from: Title:Mundo Basic PRE Author:Luca Winston DO. Date:07/26/22 Plan [place] [employer] Anesthesiologists (ASA) physical status classification: Class III. Anesthetic Preoperative Plan: Anesthesia General. Future Appointments Appointment Date:08/05/2022 11:00:00 AM Scheduled Provider: [facility] Type:Trauma Phone Visit (FT) Appointment Date:12/01/2022 01:00:00 PM Scheduled Provider:MARYCARMEN NAVA PA-C Location:[facility] [place] Appointment Type:URO Office Visit [facility]04-19-2023 NoteProgress Note: Clinic Visit after hospitalization [...] perc merlyn tube until surgery [facility] History of Present illness Narrative* Nikita [...] surgery Nikita Hein MD documented in this [id number] NoteIR CONSULT Procedure: cholangiogram and percutaneous cholecystotomy [...] at home Case discussed with IR attending ammonia worker El Hollis residential tech PGY-3[facility] [id number] History and physical note* El Hollis MD [...] at home Case discussed with IR attending ammonia worker El Hollis residential tech PGY-3 [facility] Work Phone: [phone] 607-474304-12-2023 History and physical note* El Hollis MD [...] at home Case discussed with IR attending ammonia worker El Hollis residential tech PGY-3 documented in this [id number] Telephone encounter Note* Telephone Encounter - Kendra Harrison RN - 07/06/2022 8:53 PM EDT Situation: Pt called states she is unsure how to flush gall bladder tube since it was changed yesterday. Background: 07/05/22 Procedure: Cholecystogram with catheter exchange Assessment: See triage Recommendation: Contacted IR ammonia worker, Dr Hollis advised for pt to contact [...] No Protocols used: Post-Op Incision Symptoms and Pdwyksdao-E-PR [id number] Miscellaneous Notes* Telephone Encounter - Kendra Harrison RN - 07/06/2022 8:53 PM EDT Situation: Pt called states she is unsure how to flush gall bladder tube since it was changed yesterday. Background: 07/05/22 Procedure: Cholecystogram with catheter exchange Assessment: See triage Recommendation: Contacted IR ammonia worker, Dr Hollis advised for pt to contact [...] No Protocols used: Post-Op Incision Symptoms and Owsiivevl-S-FL documented in this [id number] Telephone encounter Note* Telephone Encounter - Taniya Coley - 07/06/2022 9:10 AM EDT Sindy Ratliff Patient: Gerry Victoria [phone] Ms. Victoria has an appt w/Ritter on 07/13/2022 at 2:45 pm. Pt complaining about severe pain last night, when she moved, it was an ache. She did not tell me where the pain was coming from, when I asked her. She stated that today she feels better, but she was concerned about the pain she experienced last night 07/05/2022. [id number] Miscellaneous Notes* Telephone Encounter - Taniya Coley - 07/06/2022 9:10 AM EDT Sindy Ratliff Patient: Gerry Victoria [phone] Ms. Victoria has an appt w/Ritter on 07/13/2022 at 2:45 pm. Pt complaining about severe pain last night, when she moved, it was an ache. She did not tell me where the pain was coming from, when I asked her. She stated that today she feels better, but she was concerned about the pain she experienced last night 07/05/2022. documented in this [id number] NoteEXAMINATION: XA CHOLANGIOGRAM EXISTING ACCESS (RHETT) 07/05/2022 [...] successful exchange of drainage catheter. MACRO: NoneThe [facility] [id number] NotePOST-PROCEDURE NOTE Procedure: Cholecystogram with catheter exchange Pre-operative Diagnosis: History of acute cholecystitis managed with existing catheter. Post-operative Diagnosis: Same as above Attending: Dr. Fernando Technical Coordinator: None A TIME OUT was performed prior [...] to external drainage. Discussed with surgeon Dr. eHin the results of the study. Please see procedure dictation in EPIC/PACS for full procedural details. Marcella Fernando MD [facility]04-11-2023 NoteEXAMINATION: XA CHOLANGIOGRAM EXISTING ACCESS [...] successful exchange of drainage catheter. MACRO: None [id number] NotePre-Procedure Note HISTORY: Procedure: Cholangiogram via existing [...] Directives (Living will, health care power of associate attorney): none Patient Recent Code Status: Prior Code Status For This Procedure: Full Code Marcella Fernando MD RadiologyThe [facility]04-11-2023 Telephone encounter Note* Telephone Encounter - Anya Morelos - 07/05/2022 3:11 PM EDT Patient returned clinic call. Informed of message per notes below. Patient verbalized understandingand voiced no further questions. [id number] Miscellaneous Notes* Telephone Encounter - Anya Morelos [...] left the voice message. documented in this [id number] Miscellaneous Notes* Telephone Encounter - JethroAnya - 07/05/2022 3:11 PM EDT Patient returned [...] appt date and time. documented in this [id number] Telephone encounter Note* Telephone Encounter - Taniya [...] and accepted the appt date and time. [id number] Note* Post-Procedure Note - Marcella Fernando MD - 07/05/2022 2:44 PM EDT POST-PROCEDURE NOTE Procedure: Cholecystogram with catheter exchange Pre-operative Diagnosis: History of acute cholecystitis managed with existing catheter. Post-operative Diagnosis: Same as above Attending: Dr. Fernando Technical Coordinator: None A TIME OUT was performed prior [...] the study. Please see procedure dictation in [employer]/PACS for full procedural details. Marcella Fernando MD Radiology [facility] [employer] [facility] Work Phone: 1(722) 596-749804-11-2023 Miscellaneous Notes* Post-Procedure Note - Marcella Fernando MD - 07/05/2022 2:44 PM EDT POST-PROCEDURE NOTE Procedure: Cholecystogram with catheter exchange Pre-operative Diagnosis: History of acute cholecystitis managed with existing catheter. Post-operative Diagnosis: Same as above Attending: Dr. Fernando Technical Coordinator: None A TIME OUT was performed prior [...] the study. Please see procedure dictation in [employer]/PACS for full procedural details. Marcella Fernando MD [...] Directives (Living will, health care power of associate attorney): none Patient Recent Code Status: Prior Code Status For This Procedure: Full Code Marcella Fernando MD Radiology documented in this [id number] Note* Pre-Procedure Note - Marcella Fernando MD [...] Directives (Living will, health care power of associate attorney): none Patient Recent Code Status: Prior Code Status For This Procedure: Full Code Marcella Fernando MD Radiology [id number] Telephone encounter Note* Telephone Encounter - Taniya Coley 06/27/2022 1:27 PM EDT Pt called c/o sx of poor leg circulation,and Gaudencio spoke to her to triage the patient. [id number] Miscellaneous Notes* Telephone Encounter - Mali Coleyly - 06/27/2022 1:27 PM EDT Pt called c/o sx of poor leg circulation,and Gaudencio spoke to her to triage the patient. documented in this [id number] NoteProgress Note: Clinic Visit after hospitalization for [...] for 2 mg QID Nikita Hein MDThe [facility]03-25-2023 Note* Addendum Note - Nikita Hein MD - 06/18/2022 3:47 PM EDTAddended by: NIKITA HEIN on: 06/18/2022 03:47 PM Modules accepted: Orders, Level of Service [id number] Miscellaneous Notes* Addendum Note - Nikita Hein MD - 06/18/2022 3:47 PM EDTAddended by: NIKITA HEIN on: 06/18/2022 03:47 PM Modules accepted: Orders, Level of Service documented in this [id number] History of Present illness Narrative* Nikita Hein [...] QID Nikita Hein MD documented in this [id number] Telephone encounter Note* Telephone Encounter - Laura Faust - 06/17/2022 11:27 AM EDT Sophy transferred phone call to me, when the patient and I started talk I realized it was the patientI had Sophy working on since Dr. Hein seen her in clinic on [facility]. Sophy said she spoke to patient yesterday, so I just told her what Sophy told me that Dr. Hein will handle the Rx to have the scan done out where she lives and that Sophy will get it to her in the mail by Monday [id number] Miscellaneous Notes* Telephone Encounter - Laura Faust - 06/17/2022 11:27 AM EDT Sophy transferred phone call to me, when the patient and I started talk I realized it was the patientI had Sophy working on since Dr. Hein seen her in clinic on [facility]. Sophy said she spoke to patient yesterday, so I just told her what Sophy told me that Dr. Hein will handle the Rx to have the scan done out where she lives and that Sophy will get it to her in the mail by Monday documented in this [id number] Telephone encounter Note* Telephone Encounter - Taniya Coley - 06/16/2022 2:02 PM EDT Sindy Morales, Patient: Gerry Victoria [phone] Ms. Victoria had a visit with Dr. Conley on Monday06/15/2022, seen by Dr. Hein in yesterday's clinic. Questions: Ultrasound order was placed for Ms. Victoria, do she have to come her to [facility] to have the ultrasound, or can she have the ultrasound done in [place]? (there is not a [facility] in [place]) Medication refill of Ropinirole 2mg 1-tab QD was not received by her pharmacy, can you call in the prescription to my pharmacy at [facility] ) [phone]?. I am waiting for Carmen, or and or Dr. Conley to respond. Sophy Pt was told that Dr. Hein was out of town and that she will receive the prescription in the mail.I will call the patient to find out what hospitals she will be going to in [place] [phone] fax:[phone] Gaudencio spoke to her about the prescription and to contact her pharmacy about the ropinirole 2 mg to [facility]. Addendum: IR procedure, Gaudencio will follow-up with [facility] to see if they can do the IR procedure, we will submit or fax orders at that time. [id number] Miscellaneous Notes* Telephone Encounter - Taniya Coley - 06/16/2022 2:02 PM EDT Sindy Morales, Patient: Gerry Victoria [phone] Ms. Victoria had a visit with Dr. Conley on Monday06/15/2022, [facility]. Questions: Ultrasound order was placed for Ms. Victoria, do she have to come her to [place] to have the ultrasound, or can she have the ultrasound done in [place]? (there is not a [facility] in [place]) Medication refill of Ropinirole 2mg 1-tab QD was not received by her pharmacy, can you call in the prescription to my pharmacy at ([facility] ) [phone]?. I am waiting for Carmen, or and or Dr. Conley to respond. Sophy documented in this [id number] Miscellaneous Notes* Telephone Encounter - Taniya Coley - 06/16/2022 2:02 PM EDT Broderickottoniel Fernandoss, Patient: Gerry Victoria [phone] Ms. Victoria had a visit with Dr. Conley on Monday06/15/2022, [facility]. Questions: Ultrasound order was placed for Ms. Victoria, do she have to come her to [place] to have the ultrasound, or can she have the ultrasound done in [place]? (there is not a [facility] in [place]) Medication refill of Ropinirole 2mg 1-tab QD was not received by her pharmacy, [facility] you [facility] the [facility] [phone]?. I am waiting for Carmen, or and or Dr. Conley to respond. Sophy Pt was told that Dr. Hein was out of town and that she will receive the prescription in the mail.I will call the patient to find out what hospitals she will be going to in [place] [phone] fax:[phone] Gaudencio spoke to her about the prescription and to contact her pharmacy about the ropinirole 2 mg to [facility]. documented in this [id number] Miscellaneous Notes* Telephone Encounter - Taniya Coley - 06/16/2022 2:02 PM EDT Broderickottoniel Morales, Patient: Gerry Victoria [phone] Ms. Victoria had a visit with Dr. Conley on Monday06/15/2022, seen by Dr. Hein in yesterday's clinic. Questions: Ultrasound order was placed for Ms. Victoria, do she have to come her to [facility] to have the ultrasound, or can she have the ultrasound done in [place]? (there is not a [facility] in [place]) Medication refill of Ropinirole 2mg 1-tab QD was not received by her pharmacy, can you call [facility] the [facility] [phone]?. I am waiting for Carmen, or and or Dr. Conley to respond. Sophy Pt was told that Dr. Hein was out of town and that she will receive the prescription in the mail.I will call the patient to find out what hospitals she will be going to in [place] [phone] fax:[phone] Gaudencio spoke to her about the prescription and to contact her pharmacy about the ropinirole 2 mg to [facility]. Addendum: IR procedure, Gaudencio will follow-up with [facility] to see if they can do the IR procedure, we will submit or fax orders at that time. documented in this [id number] Telephone encounter Note* Telephone Encounter - Maegan [...] Not assessed Protocols used: Post-Op Symptoms and Wgjedrxpv-A-YS, Breathing Zaczfuoode-H-JL [id number] Miscellaneous Notes* Telephone Encounter - Maegan Morris [...] Not assessed Protocols used: Post-Op Symptoms and Wirgmrnnp-A-SM, Breathing Nqpohsmxtn-T-EU documented in this [id number] NoteDISCHARGE SUMMARY [place] [id number] Gerry Victoria Date of : 1955 66 year oldfemale Attending Ward Graves MD Date of Admission 05/16/2022 Date of Discharge 05/25/2022 [facility] EMERGENCY GENERAL [...] and h/o paroxysmal SVT who presented to our community hospital with epigastric pain with nausea and vomiting. Patient describes onset of pain on prior day that has increased since then. Shortly after onset of pain, patient experienced nausea and persistent vomiting, now unable to tolerate PO intake. Denies fevers, chills. She presented to [facility] where EKG demonstrated 'hyperacute T waves' in multiple leads without evidence of STEMI. Troponin originally 139, then 381 on repeat. CTA was performed and did not reveal dissection or PE. CT did demonstrate acute inflammation of the gallbladder with a stone at the neck. A central line was placed for resuscitation purposes and the patient was transferred to [facility] for further evaluation. Prior to transfer, lab work without leukocytosis (10.7) and LFTs/Lipase without abnormality. ACS consulted upon arrival to [facility] for cholecystitis. She was admitted to the SDU for telemetry under EGS but transferred to [facility] on 05/20/22 SIGNIFICANT FINDINGS: N/A Incidental findings reviewed by AEM on 05/24/22. No incidental findings to discuss. HOSPITAL COURSE: 05/16/2022: Transferred from [facility] ED with cholecystitis, up-trending troponin, and unclear EKG findings. Up-trending leukocytosis, down-trending troponin by PM. Cardiology following. Zosyn started. 05/17/2022: rCT with worsening gallbladder inflammation w/o free air or rupture. Percutaneous cholecystotomy tube placement with IR. 05/19/2022: Bilious emesis, NGT placed 05/20/2022: Transferred to [facility] 05/21/2022: Zosyn course completed (4 days s/p drain) 05/22/2022: YANN, ongoing bilious NGT output 05/23/2022: [facility] with mild non-obstructive diffuse coronary artery disease. [...] - Seen resting supine in bed in [facility] -Neurologic - No focal deficits, clear [...] venous stasis t (more content not included)...[facility] [id number] NoteDISCHARGE SUMMARY [address] [id number] Gerry Victoria Date of : 1955 66 year oldfemale Attending Ward Graves MD Date of Admission 05/16/2022 Date of Discharge 05/24/2022 [facility] EMERGENCY GENERAL [...] and h/o paroxysmal SVT who presented to our community hospital with epigastric pain with nausea and vomiting. Patient describes onset of pain on prior day that has increased since then. Shortly after onset of pain, patient experienced nausea and persistent vomiting, now unable to tolerate PO intake. Denies fevers, chills. She presented to [facility] where EKG demonstrated 'hyperacute T waves' in multiple leads without evidence of STEMI. Troponin originally 139, then 381 on repeat. CTA was performed and did not reveal dissection or PE. CT did demonstrate acute inflammation of the gallbladder with a stone at the neck. A central line was placed for resuscitation purposes and the patient was transferred to [facility] for further evaluation. Prior to transfer, lab work without leukocytosis (10.7) and LFTs/Lipase without abnormality. ACS consulted upon arrival to [facility] for cholecystitis. She was admitted to the SDU for telemetry under EGS but transferred to [facility] on 05/20/22 SIGNIFICANT FINDINGS: N/A Incidental findings reviewed by AEM on 05/24/22. No incidental findings to discuss. HOSPITAL COURSE: 05/16/2022: Transferred from [facility] ED with cholecystitis, up-trending troponin, and unclear EKG findings. Up-trending leukocytosis, down-trending troponin by PM. Cardiology following. Zosyn started. 05/17/2022: rCT with worsening gallbladder inflammation w/o free air or rupture. Percutaneous cholecystotomy tube placement with IR. 05/19/2022: Bilious emesis, NGT placed 05/20/2022: Transferred to [facility] 05/21/2022: Zosyn course completed (4 days s/p drain) 05/22/2022: YANN, ongoing bilious NGT output 05/23/2022: [facility] with mild non-obstructive diffuse coronary artery disease. [...] discharge: improved Diet: (more content not included)...[facility] [id number] Note PHYSICAL THERAPY PROGRESS SUMMARY Patient seen [...] With Patients permission ordered no equipment via latakoo Order. If any questions contact [facility] DME Provider at [phone]. Pt has rolling walker to use if [...] d/t achieving PT goals. Dara SOSA Beeper #[phone] Agree with above; D/C Acute PT this date 2* to modified (I) level of function. Tawny Peñaloza, PT, MPT (B) [phone] NA = Not Assessed, I = Independent, RI = Modified Independent, Sup = Supervised, Set up = Physical Assistance for Set-up Only, Min = Minimal Assistance, Mod = Moderate Assistance, Max = Maximal assistance; Dep = Dependent; AROM = Active Range of Motion; PROM = Passive Range of Motion; MMT = Manual Muscle TestThe Story of My Life [id number] NoteSusan Didion [id number] Procedure Indication: Other: Myocardial injury due to [...] needed: No Anticoagulation Plan: None Attending: Deandre [facility] [id number] NoteOCCUPATIONAL THERAPY INITIAL EVALUATION Patient seen from [...] Guard Assist/Supervision 4 - Non = Modified [place]/Independent ASSESSMENT: Patient is functionally appropriate for discharge [...] Independent Patient will (more content not included)...[facility] [id number] Note PHYSICAL THERAPY PROGRESS SUMMARY Patient seen [...] With Patients permission ordered no equipment via [employer] Order. If any questions contact [facility] DME Provider at [phone]. 6 Clicks [employer] PT 05/20/2022 Difficulty [...] of Motion; MMT = Manual Muscle TestThe [facility] [id number] NoteSICU Progress Note Gerry Victoria [id number] LOS: 4 days : Interval History/Events: Pain improved Started vomiting this am Passing gas Background: Gerry Victoria is a 66 year old female with PMH of hypertension, RLS, GERD who presented to our community hospital with progressive worsening epigastric pain with nausea and vomiting for the past day. Denies fevers, CP, dyspnea. Found to have elevated T waves and uptrending tropopnins. CT ab with acute inflammation of the gallbladder with a stone at the neck and transferred to [facility]. RUQ US with impacted gallstone at gallbladder [...] without focal consolidation, no pneumothorax - respiratory dust collector treater protocol, BPH, IS CARD: #T2MI #possible CAD [...] RUQ US with (more content not included)...[facility] [id number] Note 05/19/22 1540 Assessment and Discharge Planning Evaluation READMISSION LESS THAN 30 DAYS No READMISSION RISK SCORE IS Rising Risk Reason for Readmisson Risk Score Current medication orders INTERVIEWED Chart Review Name n/a COGNITIVE STATUS Oriented to person, place, time and location LIVING SITUATION Home - Own PCP VERIFIED No ADMISSION INSURANCE Medicare Medicare HMO (comment) (luis enrique haque) HOME HEALTH CARE PRIOR TO ADMISSION No [...] SW or DC concerns arise. Annabelle Connor, [facility], LSWT [employer] [id number] NotePHYSICAL THERAPY PROGRESS SUMMARY PT tx cleared by RN. Patient seen from 1354 to 1417 on 5W unit for 23 minute treatment. SUBJECTIVE: Patient Subjective/Goals: oh, look at you! Re: PT untangling lines and wires. OBJECTIVE: Appearance: Resting in bed upon arrival, BP cuff, molecular spectroscopist, Pulse Oximeter, IV, Drain x1, Fu, and [...] With Patients permission ordered no equipment via [employer] Order. If any questions contact [facility] DME Provider at [phone]. 6 Clicks [employer] PT 05/18/2022 Difficulty [...] of Motion; MMT = Manual Muscle TestThe [facility] [id number] NoteSICU Progress Note Gerry Victoria [id number] POD#: 0 LOS: 3 days : Interval History/Events: Pain improved Started vomiting this am Passing gas Background: Gerry Victoria is a 66 year old female with PMH of hypertension, RLS, GERD who presented to our community hospital with progressive worsening epigastric pain with nausea and vomiting for the past day. Denies fevers, CP, dyspnea. Found to have elevated T waves and uptrending tropopnins. CT ab with acute inflammation of the gallbladder with a stone at the neck and transferred to [facility]. 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 If any questions contact [facility] DME Provider at [phone]. 6 Clicks [employer] PT 05/18/2022 Difficulty [...] functional mobility Decreased (more content not included)...[facility] [id number] Note EXAMINATION: XA PERCUTANEOUS CHOLECYSTOSTOMY (RHETT) 05/17/2022 [...] was used for local anesthesia. A 5F SageQuest catheter over its matched stylet was inserted into the gallbladder lumen under ultrasoundguidance. The stylet was removed. An Amplatz wire was passed through the catheter and the catheter removed. Ultrasound was utilized to document wire position within the gallbladder lumen. Serial dilatation was then subsequently performed with an 8 and 10 Turkish dilator. A 10 F all purpose drain [...] uncomplicated cholecystostomy tube placement. MACRO: [facility] [id number] NoteSICU Progress Note Gerry Victoria [id number] POD#: 0 LOS: 2 days : Interval History/Events: Background: Gerry Victoria is a 66 year old female with PMH of hypertension, RLS, GERD who presented to our community hospital with progressive worsening epigastric pain with nausea and vomiting for the past day. Denies fevers, CP, dyspnea. Found to have elevated T waves and uptrending tropopnins. CT ab with acute inflammation of the gallbladder with a stone at the neck and transferred to [facility]. RUQ US with impacted gallstone at gallbladder [...] Neutro% Segs% Bands% Lymphs% Monos% Eos% Basos% 05/16/22 0222 82.4 10.9 6.1 0.1 0.5 Cardiac [...] without focal consolidation, no pneumothorax - respiratory dust collector treater protocol, BPH, IS CARD: #T2MI #possible CAD [...] CBC Endo Glycemic (more content not included)...[facility] [id number] Note POST-PROCEDURE NOTE Procedure: US guided percutaneous cholecystotomy tube Pre-operative Diagnosis: Acute cholecystitis Post-operative Diagnosis: Same Attending: Kim Fernando MD Technical Coordinator: Bunny Wolf TIME OUT was performed prior [...] of the procedure. El Hollis MD RadiologyThe [facility]02-21-2023 NotePre-Procedure Note HISTORY: Procedure: US guided percutaneous [...] Directives (Living will, health care power of associate attorney): yes, Patient Recent Code Status: Full Code Code Status For This Procedure: Full Code El Hollis MD RadiologyThe [facility] System[facility] [id number] NotePHYSICAL THERAPY CHART REVIEW Referral received, chart reviewed. RN request to hold therapy this date. Pt with 10/10 pain, just returned from CT with team deciding on emergent operation vs IR cholecystostomy tube placement. Evaluation to follow as appropriate Admit date/time: 05/16/2022 2:08 AM Reason for Admit: epigastric pain with nausea and vomiting Diagnosis: Cholecystitis Precautions: Full Code [place] Past Medical and Surgical History: PMH: Past Medical History: Diagnosis Date Restless leg PSH: Past Surgical History: Procedure Laterality Date TOTAL ABDOMINAL HYSTERECTOMY W/WO REMOVAL TUBE(S)/OVARY(S) [facility]23 NoteSICU Progress Note Gerry Victoria [id number] POD#: 0 LOS: 1 day : Interval History/Events: Background: Gerry Victoria is a 66 year old female with PMH of hypertension, RLS, GERD who presented to our community hospital with progressive worsening epigastric pain with nausea and vomiting for the past day. Denies fevers, CP, dyspnea. Found to have elevated T waves and uptrending tropopnins. CT ab with acute inflammation of the gallbladder with a stone at the neck and transferred to [facility]. RUQ US with impacted gallstone at gallbladder [...] 96 14 0.97 8.1 05/16/22 0222 136 4.9 100 27 14 119 9 0.76 8.6 CBC/PT/INR WBC RBC Hgb Hct MCV RDW Plt PT aPTT INR 05/17/22410 34 05/17/22 0411 1.61 05/17/22410 12.3 4.37 12.1 36.4 83 15.8 232 05/16/22 0222 1.10 05/16/22 0222 55 05/16/22221 11.3 4.74 13.0 39.2 83 15.3 290 WBC/Diff Neutro% Segs% Bands% Lymphs% Monos% Eos% Basos% 05/16/22 0222 82.4 10.9 6.1 0.1 0.5 Cardiac [...] without focal consolidation, no pneumothorax - respiratory dust collector treater protocol, BPH, IS CARD: #T2MI #possible CAD [...] Flor Chew MD Preliminary IM/Anesthesiology PGY-1 Pager: [phone] Teaching Physician Note: I saw and evaluated the patient. I personally obtained the bhandari and (more content not included)...[facility] [id number] [facility] SURGICAL CRITICAL CARE HISTORY AND PHYSICAL Reason for consultation: acute cholecystitis, elevated troponins Referring physician: Connie Quintanilla HPI: Gerry Victoria is a 66 year old female with PMH of hypertension, RLS, GERD who presented to our community hospital with progressive worsening epigastric pain with nausea and vomiting for the past day. Denies fevers, CP, dyspnea. Found to have elevated T waves and uptrending tropopnins. CT ab with acute inflammation of the gallbladder with a stone at the neck and transferred to [facility]. RUQ US with impacted gallstone at gallbladder [...] pt body habitu (more content not included)...[facility] [id number] Evaluation note* Encounter Date Diagnosis Assessment Notes Treatment Notes Treatment Clinical Notes Nov, Irritable bowel syndrome with constipation (ICD-10 - K58.1) Nov, Dysphagia (ICD-10 - R13.10) Continue Omeprazole [facility] Other 09-06-2022 Hospital Discharge instructions Patient Education [...] fried and sweet foods. General instructions Take ruqn-llj-ooibwpp and prescription medicines only as told by [...] 01/07/2010 Document Revised: 07/04/2019 Document Reviewed: 03/29/2018 Elsevier Patient Education 2020 [employer] Follow Up Care 11/12/2021 11:10:16 With:ELIJAH SNOWDEN, MARYCARMEN Enrique, URL Address: When:1 year [facility] 05-05-2022 Hospital Discharge instructions Patient Education 07/29/2021 [...] nerve stimulation). For women, using a medical dir to prevent urine leaks. This is a [...] right after experiencing incontinence. General instructions Take huaq-zzh-sgrmmrl and prescription medicines only as told by [...] 04/20/2005 Document Revised: 03/23/2018 Document Reviewed: 06/22/2017 [employer] Patient Education 2020 [employer]. 07/29/2021 08:21:46 Overactive Bladder, Adult Overactive Bladder, [...] fried and sweet foods. General instructions Take msgi-vvr-ynplzlq and prescription medicines only as told by [...] 01/07/2010 Document Revised: 07/04/2019 Document Reviewed: 03/29/2018 [employer] Patient Education 2020 [employer]. Follow Up Care 07/08/2021 10:23:59 With:MARYCARMEN NAVA PA-C, URL Address: [address] [place] [address] When: Unknown [facility] [place] 04-07-2022 Evaluation note* Encounter Date Diagnosis Assessment Notes Treatment Notes Treatment Clinical Notes Jun, Dyspepsia (ICD-10 - K30) Jun, GERD (gastroesophageal reflux disease) (ICD-10 - K21.9) Continue Omeprazole 40mg bid without change. Follow up in 1 year Nov, Irritable bowel syndrome (ICD-10 - K58.9) ([facility]) Increase Metamucil to 2 scoops daily. Encouraged pt to increase daily fiber intake. [facility] Other 11-30-2021 Evaluation note* Encounter Date Diagnosis [...] see her back on an as-needed basis. [facility] Other 10-05-2021 Evaluation note* Encounter Date Diagnosis [...] that. I am [facility] at her request. Dec, Spondylolisthesis, lumbar region (ICD-10 - M43.16) This patient has a definite spondylolisthesis and probably stenosis. But really does not truly have neurogenic claudication; it is not bilateral and appears to be more sacroiliac. She will try pain management first. [facility] Other chief complaint Narrative - ReportedGERRY VICTORIA is being seen for a consultation for atrial flutter and palpitations. F/u heart cath done in [facility] 600 DO Work Phone: Evaluation + Plan note Future Appointments Appointment Date:10/05/2021 11:00:00 AM Scheduled Provider:MARYCARMEN NAVA PA-C Location:[facility] Appointment Type:URO Office Visit [facility] Evaluation + Plan note Future Appointments Appointment Date:12/01/2022 01:00:00 PM Scheduled Provider:MARYCARMEN NAVA PA-C Location:[facility] Appointment Type:URO Office Visit [facility] Evaluation + Plan note Future Appointments Appointment Date:07/26/2022 08:00:00 AM Scheduled Provider: Location:[facility] Appointment Type:Surgery FT Appointment Date:12/01/2022 01:00:00 PM Scheduled Provider:MARYCARMEN NAVA PA-C Location:[facility] Future Appointments Appointment Date:03/14/2024 01:00:00 PM Scheduled Provider:MARYCARMEN NAVA PA-C Location:[facility] Appointment Type:URO Office Visit [facility] evaluation noteNo Assessments Information Available [facility] assessment information available [facility] noteNo InformationNortSirific [employer] Other evaluation note* Diagnosis Acute cholecystitis- Primary [...] Varicose veins of both lower extremities chronic [facility] Work Phone: evaluation note* Diagnosis Onset Date Resolution Status Pain in wound acute Edema chronic Inflammation chronic Leg ulcer, left chronic Obesity chronic Uses roller walker chronic Varicose veins of both lower extremities chronic Pain in wound acute Edema chronic Inflammation chronic Leg ulcer, left chronic Obesity chronic Uses roller walker chronic Varicose veins of both lower extremities chronic Candidiasis resolved [facility] Work Phone: evaluation note* Diagnosis Internal derangement of left shoulder documented in this encounter [facility] HealthcareEvaluation note* Diagnosis Epigastric pain Abdominal pain, epigastric Heartburn [facility] Primary hypertension (CMS/HCC)- Primary Unspecified essential hypertension Unspecified inflammatory spondylopathy, 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) Major depressive disorder, recurrent, moderate (F33.1) Major depressive disorder, recurrent episode, moderate Coronary artery disease involving lovelock coronary artery of lovelock heart without angina pectoris (CMS/HCC) Fibromyalgia Unspecified myalgia and myositis Acquired hypothyroidism (CMS/HCC) Unspecified hypothyroidism Anemia, unspecified type Mixed hyperlipidemia (CMS/HCC) Mixed hyperlipidemia Recurrent major depressive disorder, in partial remission (HCC) (CMS/[facility]) Other chronic pain Spinal stenosis, lumbar region without neurogenic claudication documented in this encounter [facility] HealthcareEvaluation note* Diagnosis Internal derangement of left shoulder- Primary documented in this encounter [facility] HealthcareEvaluation note* Diagnosis Onset Date Resolution Status Pain in wound acute Surgical wound, non healing acute Edema chronic Inflammation chronic Leg ulcer, left chronic Obesity chronic Varicose veins of both lower extremities [facility] Work Phone: Evaluation note* Diagnosis Other chronic pain documented in this encounter [facility] HealthcareEvaluation note* Diagnosis Constipation, unspecified constipation type- Primary Gastroesophageal reflux disease without esophagitis Esophageal reflux Constipation, unspecified constipation type [facility] Diagnosis Constipation, unspecified constipation type documented in this encounter [facility] general Narrative - Reported* Type Description Date Medical History Degenerative disc disease Medical History Fibromyalgia Medical History Arthritis Medical History Anxiety Medical History Depression Medical History varicose veins Medical History chronic fatigue syndrome Medical History PSVT Surgical History Bilateral knee replacements Surgical History Procedure:H 1 ,Feb;Disea se: 2008 Surgical History HYSTERECTOMY 1983 Surgical [...] RIGHT LEG 10/16/2020 Hospitalization History see above [facility] Other History general Narrative - Reported* Type [...] Left leg 01/14 Hospitalization History see above [facility] Other History of Present illness Narrative* Patient is here for cardiovascular evaluation following recent hospitalization for what appeared thang acute cholecystitis. Records were retrieved and reviewed. Patient presented to [facility] with symptoms of abdominal pain and was diagnosed with what appeared to be gallbladder disease and peritonitis.She was transferred to [facility] where she underwent work-up. Apparently a gallbladder [...] [facility] of cholecystectomyand gallbladder drainage removal * 5. I advised the patient she can use some [id number] Claritin to address her what appeared thang drug induced allergic reaction [facility] 600 DO Work Phone: Hospital course Narrative No data available for this section [facility] Hospital Discharge instructions* Attachments The following attachments cannot be sent through Care Everywhere. * Percutaneous Transhepatic Cholangiogram Discharge Instructions (Albanian) [facility] No data available for this section [facility] Additional Instructions Follow-up with your primary care doctor [facility] Progress note No data available for this section [facility] Reason for referral (narrative)* Outpatient Procedure (Routine) - Closed Specialty Diagnoses / Procedures Referred By Megan t Referred To Contact [facility] Diagnoses Epigastric pain Heartburn Procedures EGD DIAGNOSTIC ESOPHAGOGASTRODUODENOSC OPY TRANSORAL DIAGNOSTIC Jaja Reddy MD [address] [place] [address] [facility] [address] [place] [address] Referral ID Status Reason Start Date Expiration Date V isits Requested Visits Authorized [id number] Closed Auto-Generate d Referral 04/19/2023 04/19/2024 1 1 [facility] for referral (narrative)* Diagnostic Procedure Only (Routine) - Closed Specialty Diagnoses / Procedures Referred By Contac t Referred To Contact XR IMAGING Diagnoses Constipation, unspecified constipation type Procedures XR ABDOMEN 3V KUB W/OBLIQUES RADIOLOGIC EXAM ABDOMEN 3+ VIEWS Ty Ahuja PA-C [address] [place] [id number] [place] [address] Referral ID Status Reason Start Date Expiration Date V isits Requested Visits Authorized [id number] Closed Auto-Generate d Referral 01/09/2024 02/07/2025 1 1 * Diagnostic Procedure Only (Routine) - New Request Specialty Diagnoses / Procedures Referred By Contac t Referred To Contact XR IMAGING Diagnoses Constipation, unspecified constipation type Procedures XR ABDOMEN 3V KUB W/OBLIQUES RADIOLOGIC EXAM ABDOMEN 3+ VIEWS Ty Ahuja PA-C [address] [place] [phone] [place] [address] Referral ID Status Reason Start Date Expiration Date Visits Requested Visits Authorized [id number] New Request Auto-Generat ed Referral 02/07/2025 1 1 [facility] for referral (narrative)* Diagnostic Procedure Only (Routine) - Closed Specialty Diagnoses / Procedures Referred By Contac t Referred To Contact XR IMAGING Diagnoses Constipation, unspecified constipation type Procedures XR ABDOMEN 3V KUB W/OBLIQUES RADIOLOGIC EXAM ABDOMEN 3+ VIEWS Ty Ahuja PA-C [address] [place] [phone] [place] [address] Referral ID Status Reason Start Date Expiration Date V isits Requested Visits Authorized [id number] Closed Auto-Generate d Referral 01/09/2024 02/07/2025 1 1 [facility] for visit Narrative* Consultation (Routine) - Authorized Specialty Diagnoses / Procedures Referred By Contac t Referred To Contact Physical Therapy Diagnoses Internal derangement of left shoulder Procedures NE OFFICE/OUTPATIENT NEW HIGH MDM 60 MINUTES Jr. Victoria Haynes, DO [address] [place] [address] Angelita Carbone, PT [address] [place] [address] Referral ID Status Reason Start Date Expiration Date Visits Requested Visits Authorized [id number] Authorized Consult and Treat 04/26/2023 10/23/2023 99 99 [facility] for visit Narrative* Outpatient Procedure (Routine) - Closed Specialty Diagnoses / Procedures Referred By Megan t Referred To Contact [facility] Diagnoses Epigastric pain Heartburn Procedures EGD DIAGNOSTIC ESOPHAGOGASTRODUODENOSC OPY TRANSORAL DIAGNOSTIC Jaja Reddy MD [address] [address] [facility] [address] [place] [address] Referral ID Status Reason Start Date Expiration Date V isits Requested Visits Authorized [id number] Closed Auto-Generate d Referral 04/19/2023 04/19/2024 1 1 [facility] Advance Directives Advance Directive Response Recorded Date/ [...] Inactivated Comments Full Code 01/02/2023 1:50 PM Date Activated Date Inactivated Comments 01/02/2023 1:50 PM Chief Complaint and Reason for Visit Chief Complaint Screening Screening Reason for Visit Encounter for colono scopy due to history of adenomatous colonic polyps Chief Complaint Screening Chief Complaint rt 4th 5th hammertoe s Chief Complaint rt 4th 5th hammertoe s preop Chief Complaint rt 4th [...] Varicose veins of both lower extremities Candidiasis Chief Complaint Open Wound - new wou nd I10 E78.2 E03.9 D64.9 M85.80 Reason for Visit Pain in wound Surgical wound, non healing Edema Inflammation Leg ulcer, left Obesity Varicose veins of both lower extremities Assessments Diagnosis Onset Date Resolution Status Encounter [...] history of myocardial infarction: Sister(V17.3, Z82.49) Status:Active Relationship Condition Age at Onset Recorded Date/T evie father Malignant neoplasm of colon Unknown family member Malignant neoplasm of colon Unknown mother Congestive heart failure Unknown brother Family history of thyroid disease Unknown father Family history of colon cancer Unknown Unknown Malignant neoplasm Unknown mother Unknown Heart disease Unknown Congestive heart failure Unknown sister Family history of thyroid disease Unknown Summary Purpose Reason for Referral Specialty Diagnoses / Procedures Referred By Megan t Referred To Contact Radiology Diagnoses Acute cholecystitis Procedures XA CHOLANGIOGRAM EXISTING ACCESS (RHETT) XA INTERVENTIONAL RADIOLOGY VASCULAR BODY PROCEDURES XA INTERVENTIONAL RADIOLOGY PROCEDURE SERVICE Nikita Hein MD [address] [place] [address] S ULTRASOUND [address] [place] [address] Referral ID Status Reason Start Date Expiration Date V isits Requested Visits Authorized [id number] Authorized 06/15/2022 06/15/2023 1 1 Reason Evaluate and Tr eat Diagnosis 1 Spondylolisthesis, l umbar region (M43.16) Referral Organization [facility] urosurgery Referring Provider First Name Michael Referring Provider Last Name Keanu Referring Provider Specialty Neurologica l Surgery Referred Organization [facility] Referred Provider Crow Hale Referred Address [address] [place], [place],[address] Referred Provider Specialty Pain Medicin e Referral Priority Routine General Notes [facility] M 021 02:41:55 PM [facility] 03:12:19 PM >Waiting for office notes [...] section and content) DATE CREATED AUTHOR 07/07/2021 [facility] dical Specialist DATE CREATED AUTHOR AUTHOR'S ORGANIZ ATION 07/02/2022 [employer] DATE CREATED AUTHOR AUTHOR'S ORGANIZ ATION 09/14/2022 [facility] DATE CREATED AUTHOR AUTHOR'S ORGANIZ ATION 10/07/2022 [facility] DATE CREATED AUTHOR AUTHOR'S ORGANIZ ATION 03/04/[address] [facility] ical Center DATE CREATED AUTHOR AUTHOR'S ORGANIZ ATION 11/15/2023 [facility] dical Specialists EPIC DATE CREATED AUTHOR AUTHOR'S ORGANIZ ATION 01/09/2024 [facility] DATE CREATED AUTHOR AUTHOR'S ORGANIZ ATION 01/11/2024 [facility] DATE CREATED AUTHOR AUTHOR'S ORGANIZ ATION 01/11/2024 [facility] REASON FOR VISIT (unrecogniz ed section and content) Reason Onset Date Comments Advice/health education 05/27/2022 Specialty Diagnoses / Procedures Referred By Contac t Referred To Contact Radiology Diagnoses Acute cholecystitis Procedures XA CHOLANGIOGRAM EXISTING ACCESS (RHETT) XA INTERVENTIONAL RADIOLOGY VASCULAR BODY PROCEDURES XA INTERVENTIONAL RADIOLOGY PROCEDURE SERVICE Nikita Hein MD [address] [place] [address] [facility] ULTRASOUND [address] [place] [address] Referral ID Status Reason Start Date Expiration Date Visits Re quested Visits Authorized [id number] Closed 06/15/2022 06/15/2023 1 1 Reason Onset Date Comments Advice/health education 07/06/2022 Reason Comments Pre-Op Teaching Reason Comments 4 month F/U No labs done. Reason Onset Date Comments Med Refill 12/28/2023 Reason Comments Abdominal Pain Reason Comments Radio Gen RMP Specialty Diagnoses / Procedures Referred By Contac t Referred To Contact XR IMAGING Diagnoses Constipation, unspecified constipation type Procedures XR ABDOMEN 3V KUB W/OBLIQUES RADIOLOGIC EXAM ABDOMEN 3+ VIEWS Ty Ahuja PA-C [address] [place] [address] [place] [address] Referral ID Status Reason Start Date Expiration Date V isits Requested Visits Authorized [id number] Closed Auto-Generate d Referral 01/09/2024 02/07/2025 1 1 Care Team (unrecognized sect ion and content) Team Status: Active Member Role Status Dates Ward Zuniga DO Primary Care Provider Active Team Status: Inactive Member Role Status Dates Ward Zuniga DO Primary Care Provider Active Start: November 06, 2023 End: November 06, 2023 Adelia aSldana APRN Attending Provider Active St art: November 06, 2023 End: November 06, 2023 Jess Valladares APRN Active Star t: November 06, 2023 End: November 06, 2023 Team Status: Inactive Member Role Status Dates Ward Zuniga DO Primary Care Provide r, Attending Provider Active Start: November 07, 2023 End: November 07, 2023 Team Status: Active Member Role Status Dates Ward Zuniga DO Primary Care Provider Active Start: November 06, 2023 Adelia Saldana APRN Attending Provider Active St art: November 06, 2023 Jess Valladares APRN Active Star t: November 06, 2023 Team Status: Inactive Member Role Status Giulia Zuniga DO Primary Care Provider Active Adelia Saldana APRN Attending Provider Active Team Status: Inactive Member Role Status Giulia Zuniga DO Primary Care Provider Active Pravin Granado MD Emergency Provider Active Team Status: Active Member Role Status Giulia Zuniga DO Primary Care Provider Active Adelia Saldana APRN Attending Provider Active Team Status: Inactive Member Role Status Giulia Zuniga DO Primary Care Provider, Attending Sophie perez Active Team Status: Inactive Member Role Status Giulia Zuniga DO Primary Care Provider Active Maico Perla DO Emergency Provider Active Team Status: Inactive Member Role Status Giulia Zuniga DO Primary Care Provider Active Molina Villanueva MD Attending Provider Active Team Status: Inactive Member Role Status Giulia Zuniga DO Primary Care Provider Active Ephraim Bell APRN Attending Provider Active Team Status: Inactive Member Role Status Dates Keith Griffith PA-C Emergency Provider Active Ward Zuniga DO Primary Care Provider Active Team Status: Inactive Member Role Status Dates Ward Zuniga , Primary Care Provider Active Keith Griffith PA-C Emergency Provider Active Team Status: Inactive Member Role Status Dates Ward Zuniga DO Primary Care Provider Active Ward Mtz MD Attending Provider Active Lamination Technician Relationship Specialty Start Date End Date Ward Zuniga DO [address] [place] [address] PCP - General Internal Medicine 04/19/23 Lamination Technician Relationship Specialty Start Date End Date Ward Zuniga DO [address] [place] [address] PCP - General Internal Medicine 04/20/23 Lamination Technician Relationship Specialty Start Date End Date Ward Zuniga DO [address] [place] [address] PCP - General Internal Medicine 04/20/23 Lamination Technician Relationship Specialty Start Date End Date Ward Zuniga DO [address] [place] [address] PCP - General Internal Medicine 04/19/23 Lamination Technician Relationship Specialty Start Date End Date Ward Zuniga DO [address] [place] [address] PCP - General Internal Medicine 04/20/23 Lamination Technician Relationship Specialty Start Date End Date Ward Zuniga DO [address] [place] [address] PCP - General Internal Medicine 04/20/23 Lamination Technician Relationship Specialty Start Date End Date Ward Zuniga DO [address] [place] [address] PCP - General Internal Medicine 04/20/23 Lamination Technician Relationship Specialty Start Date End Date Ward Zuniga DO [address] [place] [address] PCP - General Internal Medicine 04/20/23 Lamination Technician Relationship Specialty Start Date End Date Ward Zuniga DO [address] [place] [address] PCP - General Internal Medicine 04/19/23 Source Comments (unrecognize d section and content) In the event this informatio n is protected by the Federal Confidentiality of Alcohol and Drug Abuse Patient Records regulations: The Federal rules restrict any use of the information to criminally investigate or prosecute any alcohol or drug abuse patient.[facility] the event this information is protected by the Federal Confidentiality of Alcohol and Drug Abuse Patient Records regulations: The Federal rules restrict any use of the information to criminally investigate or prosecute any alcohol or drug abuse patient.[facility] the event this information is protected by the Federal Confidentiality of Alcohol and Drug Abuse Patient Records regulations: The Federal rules restrict any use of the information to criminally investigate or prosecute any alcohol or drug abuse patient.[facility] the event this information is protected by the Federal Confidentiality of Alcohol and Drug Abuse Patient Records regulations: The Federal rules restrict any use of the information to criminally investigate or prosecute any alcohol or drug abuse patient.[facility] Inactive Administered Medications - up to 3 [...] BE BASED ON THE PRIMARY CLINICAL RECORDS. [employer] [facility]. provides no warranty or guarantee of the accuracy or completeness of information in this document.
--- NOTE | 2024-01-16 11:36 | VEINCLINIC_ITS ---
Vital Signs 01/16/24 11:05 BP 128/80 BP Location Right Brachial BP Position Sitting BP Cuff Size Adult BP Source Manual Cuff Respiration 18 Pulse 69 Pulse Source Monitor Pulse Oximetry (%) 98 Oxygen Delivery Method Room Air Comment The patient's blood pressure is elevated. Varicose Veins Patient in today for sclerotherapy right leg. Solomon Massey MD personally performed the services described in this documentation, as scribed by Jess Da Silva RN in my presence and it is both accurate and complete. IJess RN, am scribing for, and in the presence of, Dr. Solomon Jackson and in the presence of the patient. thigh: bilateral, knee: bilateral, calf: bilateral, ankle: bilateral and kiser: bilateral aching, burning, sharp and other (itching, heavy) 4 1 year Worsened in recent months: Yes standing and sitting bed rest, elevating extremities, compression stockings and exercise Reports heaviness, leg edema and other (leg ulcers, cellulitis) History of lower extremity trauma: No Superficial thrombophlebitis: Yes Family history of varicose veins: yes (mother) Has patient had previous lower extremity venous surgery: Yes Patient has previously received the following treatment(s) for lower extremity varicose veins: Reports vein ablation, sclerotherapy, foam therapy and laser therapy Does patient have a history of : no Does patient intend to have future pregnancies: no Has patient had lower extremity venous scan with relux testing: Yes Support hose used: Yes (since 2018) How does it affect you: has to frequently stop, rest, and elevate legs Do you walk much: Yes Do you stand much: No Medication compliance: fair Large amounts of Vitamin K: No Review of Systems ROS Narrative Solomon Massey MD personally performed the services described in this documentation, as scribed by Jess Da Silva RN in my presence and it is both accur ate and complete. Jess Massey RN, am scribing for, and in the presence of, Dr. Solomon Jackson and in the presence of the patient. Status of ROS 10 or more systems reviewed and unremark able except as noted in history and below Cardiovascular Reports: edema, swelling of feet/ankles and leg pain with exertion Musculoskeletal Reports: extremity pain, extremity swelling, joint pain, muscle cramps and muscle weakness Integumentary/Breast Reports: itching, redness, skin swelling, sores, non- healing lesion and changes in skin color Neurological Reports: weakness in extremities Hematologic/Lymphatic Reports: easy bruising PFSH PFSH Medical History (Updated 01/08/24 @ 14:35 by Alisha Shrestha) Phlebitis and thrombophlebitis of superficial vessels of left lower extremity ?I80.02 - Phlebitis and thrombophlebitis of superficial vessels of left lower extremity (ICD-10) Phlebitis and thrombophlebitis of superficial vessels of right lower extremity ?I80.01 - Phlebitis and thrombophlebitis of superficial vessels of right lower extremity (ICD-10) Restless leg syndrome ?G25.81 - Restless legs syndrome (ICD-10) Varicose veins of bilateral lower extremities with pain ?I83.813 - Varicose veins of bilateral lower extremities with pain (ICD-10) Irritable bowel syndrome (IBS) ?K58.9 - Irritable bowel syndrome without diarrhea (ICD-10) Hypothyroidism ?E03.9 - Hypothyroidism, unspecified (ICD-10) Hypertension ?I10 - Essential (primary) hypertension (ICD-10) Gallstones ?K80.20 - Calculus of gallbladder without cholecystitis without obstruction (ICD-10) Palpitations ?R00.2 - Palpitations (ICD-10) Fibromyalgia ?M79.7 - Fibromyalgia (ICD-10) Gastroesophageal reflux ?K21.9 - Gastro-esophageal reflux disease without esophagitis (ICD-10) Surgical History (Updated 12/21/23 @ 15:15 by Domingo Joe) S/P sclerotherapy of varicose veins ?Z98.890 - Other specified postprocedural states (ICD-10) ?Z86.79 - Personal history of other diseases of the circulatory system (ICD- 10) History of surgery on arm ?Z98.890 - Other specified postprocedural states (ICD-10) History of cholecystectomy ?Z90.49 - Acquired absence of other specified parts of digestive tract (ICD- 10) History of total knee replacement ?Z96.659 - Presence of unspecified artificial knee joint (ICD-10) History of hysterectomy ?Z90.710 - Acquired absence of both cervix and uterus (ICD-10) Family History (Updated 12/18/23 @ 08:30 by Alisha Shrestha) Mother Family history of CHF (congestive heart failure) Varicose veins of bilateral lower extremities with pain Father Family history of cancer Meds Home Medications and Allergies Home Medications ?Medication ?Instructions ?Recorded ?Confirmed ?Type acyclovir 400 mg tablet 400 mg PO DAILY 12/18/23 12/18/23 History amitriptyline 50 mg tablet 50 mg PO DAILY 12/18/23 12/18/23 History atenolol 50 mg tablet 50 mg PO DAILY 12/18/23 12/18/23 History clindamycin phosphate 1 % topical 1 applic topical DAILY 12/18/23 12/18/23 History solution escitalopram oxalate 10 mg tablet 10 mg PO DAILY 12/18/23 12/18/23 History gabapentin 100 mg capsule 100 mg PO TID 12/18/23 12/18/23 History levothyroxine 50 mcg capsule 50 mcg PO DAILY 12/18/23 12/18/23 History multivitamin (Daily Multi-Vitamin 1 tab PO DAILY 12/18/23 12/18/23 History tablet) omeprazole 40 mg capsule,delayed 40 mg PO BID 12/18/23 12/18/23 History release ondansetron HCl 4 mg tablet 4 mg PO TID-QID PRN nausea and 12/18/23 12/18/23 History vomiting ropinirole 0.25 mg QID 12/18/23 History tramadol 50 mg tablet 50 mg PO DAILY 12/18/23 12/18/23 History cephalexin 500 mg capsule 500 mg PO BID 01/16/24 01/16/24 History Allergies Allergy/AdvReac Type Severity Reaction Status Date / Time adhesive Allergy Unknown Rash Verified 12/18/23 08:41 contact metal agent Allergy Unknown Hives Verified 12/18/23 08:41 pregabalin (From Lyrica) Allergy Unknown swelling Verified 12/18/23 08:41 Exam Narrative Exam Narrative: Small wound less than 1 cm diameter to left distal medial lower leg. Redness noted to left mid medial ulcer. Patient recently started Keflex. She has follow up with wound tomorrow. Pictures taken. Solomon Massey MD personally performed the services described in this documentation, as scribed by Jess Da Silva RN in my presence and it is both accurate and complete. Jess Massey RN, am scribing for, and in the presence of, Dr. Solomon Jackson and in the presence of the patient. Constitutional Common normals: oriented x3 Lymph Lymphatic: no lymphedema noted Cardio Peripheral pulses: posterior tibial pulses present and dorsalis pedis pulses present Extremity General: calf tenderness, edema and other findings (Non-healing Ulcer) Right lower extremity: lower leg Right lower leg: inspection, palpation and other Left lower extremity: lower leg Left lower leg: inspection, palpation and other Neuro Common normals: oriented x3 Assessment and Plan Assessment and Plan (1) Varicose veins of bilateral lower extremities with pain: Plan sclerotherapy: Risks and benefits of the procedure were discussed at length and informed written consent was obtained.? Time-out procedure was performed and the correct patient and procedure were confirmed.? Staff present during time-out: Jess Da Silva, JORDI and Solomon Jackson MD.? Patient prepped and procedure performed in usual sterile fashion. Injections performed by and Jess Da Silva RN Sclerosing Agent:?? 4cc 0.5% Polidocanol Site Injected: right leg Number of Injections: 24 Anesthesia: n/a The patient tolerated the procedure well without complication.? Hemostasis was obtained and thigh-high compression stocking was applied by patient.? Instructed patient to wear stocking for at least 96 hours and sleep with it and only remove for showering.? Will wear stocking for 2 weeks.? The patient verbalizes understanding and states they will comply.? Patient was given post-procedure instructions. Patient was discharged in good condition.? Patient will call for additional injection sclerotherapy if she wishes to continue. Keep scheduled follow up on 02/28/24. Procedures Procedure Note Procedure: sclerotherapy right leg 01/16/24
--- NOTE | 2024-01-16 11:46 | W.VEIN ---
Discharge Plan Discharge Disposition: Home, Self-Care Outpatient Diagnostics: [facility] EST LMTD (Routine) Timeframe: 3 Months Facility: [facility] - Location: Vein Center Ordered By: Solomon Jackson Follow Up Appointments: 02/28/24 Plan of Treatment: call for sclerotherapy appointment when she wishes to proceed. Otherwise, keep follow up with physician on 02/28/24. Patient Instructions: Polidocanol (By injection) (Cee Davis) Print Language: Mongolian Discharge Date/Time: 01/16/24 11:46
== END 2024-01-16 11:46 | disposition home or self-care (01) ==
LOC: VC 10:52
PROVIDERS: PCP Radiology Diagnostic Radiology; Visit Provider Radiology Diagnostic Radiology
DX: I83.813 Varicose veins of bilateral lower extremities with pain (principal)
CPT/HCPCS: 36471

== ENCOUNTER 2024-02-28 10:54 | Outpatient (OUT) | payer MEDICARE, SELFPAY ==
--- NOTE | 2024-02-28 10:58 | VEIN_ITS ---
Patient Name: GERRY YOUNGBLOOD MR#: [id number] : 1955 Exam Date: 02/28/2024 Ordering Doctor: DR SOLOMON JACKSON M.D. RADIOLOGY REPORT PROCEDURE: [facility] EST LMTD VEIN CENTER - OFFICE VISIT FOLLOW UP COMPARISON: [facility] EST LMTD, 01/08/2024. [facility] EST LMTD, 12/18/2023. PROGRESS NOTES: The patient reports she continues to be seen by the wound Center for ulceration on the left leg. She had recent debridement. The wound on the left leg measures approximately 2.5 x 1.5 cm and is through the skin with exposure of the fat layer. There is tenderness to touch surrounding this area but no erythema warmth to suggest cellulitis. At this time the patient's vein treatments are completed. Is the patient is being seen by the wound center she has not required to follow up with our office unless needed. VEIN/[facility] EST LMTD IMPRESSION: 1. Continued healing of a left leg wound, patient should continue with her treatments at the wound center 2. The patient's vein treatments are completed this time. PLAN: Follow-up as necessary Nurse notes, history and physical were reviewed and confirmed, see attached forms. The nurse was present throughout the physical exam and consultation Dictated by: Solomon Jackson MD on 02/28/2024 at 13:55 Approved by: Solomon Jackson MD on 02/28/2024 at 14:00
--- NOTE | 2024-02-28 12:45 | V.VEINS.HP ---
Varicose Veins Patient in 3 month f/u secondary to bilateral leg painful varicose veins along with non-healing wound to left mid medial lower leg. Patient currently being treated by wound clinic at [facility] for wound. Solomon Massey MD personally performed the services described in this documentation, as scribed by Domingo Joe RN in my presence and it is both accurate and complete. Domingo Massey RN, am scribing for, and in the presence of, Dr. Solomon Jackson and in the presence of the patient. thigh: bilateral, knee: bilateral, calf: bilateral, ankle: bilateral and kiser: bilateral aching, burning, sharp and other (itching, heavy) 4 1 year Worsened in recent months: Yes standing and sitting bed rest, elevating extremities, compression stockings and exercise Reports heaviness, leg edema and other (leg ulcers, cellulitis) History of lower extremity trauma: No Superficial thrombophlebitis: Yes Family history of varicose veins: yes (mother) Has patient had previous lower extremity venous surgery: Yes Patient has previously received the following treatment(s) for lower extremity varicose veins: Reports vein ablation, sclerotherapy, foam therapy and laser therapy Does patient have a history of : no Does patient intend to have future pregnancies: no Has patient had lower extremity venous scan with relux testing: Yes Support hose used: Yes (since 2019) How does it affect you: has to frequently stop, rest, and elevate legs Do you walk much: Yes Do you stand much: No Medication compliance: fair Large amounts of Vitamin K: No Review of Systems ROS Narrative Solomon Massey MD personally performed the services described in this documentation, as scribed by Domingo Joe RN in my presence and it is both accurate and complete. Domingo Massey RN, am scribing for, and in the presence of, Dr. Solomon Jackson and in the presence of the patient.. Status of ROS 10 or more systems reviewed and unremarkable except as noted in history and below Cardiovascular Reports: edema, swelling of feet/ankles and leg pain with exertion Musculoskeletal Reports: extremity pain, extremity swelling, joint pain, muscle cramps and muscle weakness Integumentary/Breast Reports: itching, redness, skin swelling, sores, non-healing lesion and changes in skin color Neurological Reports: weakness in extremities Hematologic/Lymphatic Reports: easy bruising [facility] Medical History (Updated 01/08/24 @ 14:35 by Alisha Shrestha) Phlebitis and thrombophlebitis of superficial vessels of left lower extremity ?I80.02 - Phlebitis and thrombophlebitis of superficial vessels of left lower extremity (ICD-10) Phlebitis and thrombophlebitis of superficial vessels of right lower extremity ?I80.01 - Phlebitis and thrombophlebitis of superficial vessels of right lower extremity (ICD-10) Restless leg syndrome ?G25.81 - Restless legs syndrome (ICD-10) Varicose veins of bilateral lower extremities with pain ?I83.813 - Varicose veins of bilateral lower extremities with pain (ICD-10) Irritable bowel syndrome (IBS) ?K58.9 - Irritable bowel syndrome without diarrhea (ICD-10) Hypothyroidism ?E03.9 - Hypothyroidism, unspecified (ICD-10) Hypertension ?I10 - Essential (primary) hypertension (ICD-10) Gallstones ?K80.20 - Calculus of gallbladder without cholecystitis without obstruction (ICD-10) Palpitations ?R00.2 - Palpitations (ICD-10) Fibromyalgia ?M79.7 - Fibromyalgia (ICD-10) Gastroesophageal reflux ?K21.9 - Gastro-esophageal reflux disease without esophagitis (ICD-10) Surgical History (Updated 12/21/23 @ 15:15 by Domingo Joe) S/P sclerotherapy of varicose veins ?Z98.890 - Other specified postprocedural states (ICD-10) ?Z86.79 - Personal history of other diseases of the circulatory system (ICD-10) History of surgery on arm ?Z98.890 - Other specified postprocedural states (ICD-10) History of cholecystectomy ?Z90.49 - Acquired absence of other specified parts of digestive tract (ICD-10) History of total knee replacement ?Z96.659 - Presence of unspecified artificial knee joint (ICD-10) History of hysterectomy ?Z90.710 - Acquired absence of both cervix and uterus (ICD-10) Family History (Updated 12/18/23 @ 08:30 by Alisha Shrestha) Mother Family history of CHF (congestive heart failure) Varicose veins of bilateral lower extremities with pain Father Family history of cancer Meds Home Medications and Allergies Home Medications ?Medication ?Instructions ?Recorded ?Confirmed ?Type acyclovir 400 mg tablet 400 mg PO DAILY 12/18/23 12/18/23 History amitriptyline 50 mg tablet 50 mg PO DAILY 12/18/23 12/18/23 History atenolol 50 mg tablet 50 mg PO DAILY 12/18/23 12/18/23 History clindamycin phosphate 1 % topical 1 applic topical DAILY 12/18/23 12/18/23 History solution escitalopram oxalate 10 mg tablet 10 mg PO DAILY 12/18/23 12/18/23 History gabapentin 100 mg capsule 100 mg PO TID 12/18/23 12/18/23 History levothyroxine 50 mcg capsule 50 mcg PO DAILY 12/18/23 12/18/23 History multivitamin (Daily Multi-Vitamin 1 tab PO DAILY 12/18/23 12/18/23 History tablet) omeprazole 40 mg capsule,delayed 40 mg PO BID 12/18/23 12/18/23 History release ondansetron HCl 4 mg tablet 4 mg PO TID-QID PRN nausea and 12/18/23 12/18/23 History vomiting ropinirole 0.25 mg QID 12/18/23 History tramadol 50 mg tablet 50 mg PO DAILY 12/18/23 12/18/23 History cephalexin 500 mg capsule 500 mg PO BID 01/16/24 01/16/24 History Allergies Allergy/AdvReac Type Severity Reaction Status Date / Time adhesive Allergy Unknown Rash Verified 12/18/23 08:41 contact metal agent Allergy Unknown Hives Verified 12/18/23 08:41 pregabalin (From Lyrica) Allergy Unknown swelling Verified 12/18/23 08:41 Exam Narrative Exam Narrative: Assessment reveals non-healing wound to mid medial right lower leg with scant yellow drainage in color 1.5cmx2.0cm. Solomon Massey MD personally performed the services described in this documentation, as scribed by Domingo Joe RN in my presence and it is both accurate and complete. Domingo Massey RN, am scribing for, and in the presence of, Dr. Solomon Jackson and in the presence of the patient. Constitutional Documenting provider has reviewed patient's vital signs: yes Common normals: oriented x3 Cardio Peripheral pulses: posterior tibial pulses present and dorsalis pedis pulses present Extremity Common normals: normal capillary refill General: edema Right lower extremity: lower leg Right lower leg: inspection and palpation Left lower extremity: lower leg Left lower leg: inspection and palpation Neuro Common normals: oriented x3 Assessment and Plan Assessment and Plan (1) Varicose veins of bilateral lower extremities with pain: Plan Patient to f/u in future if necessary. No procedures necessary at this time. ISolomon MD personally performed the services described in this documentation, as scribed by Domingo Joe RN in my presence and it is both accurate and complete. I, Domingo Joe RN, am scribing for, and in the presence of, Dr. Solomon Jackson and in the presence of the patient.
--- NOTE | 2024-02-28 12:51 | P.DS_ITS ---
Discharge Plan Discharge Disposition: Home, Self-Care Discharge Medications: No Action amitriptyline 50 mg tablet 50 mg PO DAILY atenolol 50 mg tablet 50 mg PO DAILY gabapentin 100 mg capsule 100 mg PO TID ropinirole 0.25 mg QID tramadol 50 mg tablet 50 mg PO DAILY levothyroxine 50 mcg capsule 50 mcg PO DAILY omeprazole 40 mg capsule,delayed release(DR/EC) 40 mg PO BID acyclovir 400 mg tablet 400 mg PO DAILY escitalopram oxalate 10 mg tablet 10 mg PO DAILY multivitamin [Daily Multi-Vitamin] Tablet 1 tab PO DAILY clindamycin phosphate 1 % solution 1 applic topical DAILY ondansetron HCl 4 mg tablet 4 mg PO TID-QID PRN (Reason: nausea and vomiting) cephalexin 500 mg capsule 500 mg PO BID Plan of Treatment: f/u if necessary Print Language: Citizen Of [place] Discharge Date/Time: 02/28/24 12:52
== END 2024-02-28 12:52 | disposition home or self-care (01) ==
LOC: VC 10:56
PROVIDERS: PCP Radiology Diagnostic Radiology; Visit Provider Radiology Diagnostic Radiology
DX: I83.813 Varicose veins of bilateral lower extremities with pain (principal)
CPT/HCPCS: G0463